=== PATIENT | female | born 1980 | race Caucasian/White ===

== ENCOUNTER 2019-12-19 17:51 | Emergency (ER) | payer OTHER ==
[2019-12-19] MEDS ORDERED: ACET/COD 300 MG/30 MG STARTER PACK 6 TAB BTL PO STA (18:46)
[2019-12-19 19:39] LABS: Appearance,Urine Cloudy (Clear); Bacteria,Urine Occasional /hpf; Bilirubin,Urine Negative (Negative); Blood,Urine Negative (Negative); Color,Urine Light Yellow; Glucose,Urine (UA) Negative (Negative); Hyaline Casts,Urine 13 /lpf (0-2); Ketones,Urine Negative (Negative); Leukocyte Esterase,Urine Trace (Negative); Mucus,Urine Rare /hpf; Nitrite,Urine Positive (Negative); PH, Urine 5.5 (5.0-8.0); Protein,Urine Trace (Negative); RBC,Urine 1 /hpf (0-5); Specific Gravity,Urine 1.019 (1.001-1.035); Squamous Epithelial Cell,Urine 10 /hpf (0-4); Urobilinogen,Urine <2.0 mg/dL (<2.0); WBC,Urine 2 /hpf (0-5)
[2019-12-19] MEDS ORDERED: CEPHALEXIN 500MG STARTER PACK 4 CAP BTL PO STA (20:04)
--- NOTE | 2019-12-19 20:06 | ED ---
ENT HPI - General Chief complaint: Dental/Oral Stated complaint: Dental infection Time Seen by Provider: 12/19/19 17:58 Source: patient Mode of arrival: ambulatory Limitations: no limitations - History of Present Illness Initial comments: 38yo female presenting today for cc of possible UTI, dental pain. Patient states her back right upper tooth needs root canal no dentist open, pain increased x few days. Dysuria x 1 week, foul smelling urine with history of frequent UTI's patient denies flank pain, fevers, hematuria, tongue swelling, neck swelling, m alaise, drooling difficulty entire oral secretions or trismus. Patient is no additional complaints upon arrival patient appears well signs acute distress. Patient states she is unable to provide urine sample at this time. - Related Data Previous Rx's Medication Instructions Recorded Cephalexin [Keflex] 500 mg PO Q12HR 5 Days #10 cap 12/19/19 Clindamycin [Cleocin] 450 mg PO Q8H 7 Days #63 capsule 12/19/19 Allergies Allergy/AdvReac Type Severity Reaction Status Date / Time adhesive Allergy Unknown Verified 12/19/19 17:59 ciprofloxacin [From Cipro] Allergy Unknown Verified 12/19/19 17:59 diazepam [From Valium] Allergy Unknown Verified 12/19/19 17:59 latex Allergy Unknown Verified 12/19/19 17:59 metoclopramide [From Reglan] Allergy Unknown Verified 12/19/19 17:59 paroxetine [From Paxil] Allergy Unknown Verified 12/19/19 17:59 Penicillins Allergy Unknown Verified 12/19/19 17:59 prochlorperazine Allergy Unknown Verified 12/19/19 17:59 [From Compazine] Review of Systems ROS Statement: Those systems with pertinent positive or pertinent negative responses have been documented in the HPI. ROS Other: All systems not noted in ROS Statement are negative. Past Medical History Past Medical History: No Reported History History of Any Multi-Drug Resistant Organisms: None Reported Past Surgical History: Breast Surgery Past Psychological History: Depression Smoking Status: Former smoker Past Alcohol Use History: Occasional Past Drug Use History: None Reported General Exam - General Exam Comments Initial Comments: General: The patient is awake and alert, in no distress Eye: +3 mm pupils are equal, round and reactive to light, extra-ocular movements are intact. No nystagmus. There is normal conjunctiva bilaterally. No signs of icterus. Ears, nose, mouth and throat: There are moist mucous membranes and no oral lesions. No trismus no drooling, tolerating oral secretions, pain to percussion of tooth #1. Patient has swelling below the angle of the mandible or below the tongue. Neck: The neck is supple, there is no tenderness or JVD. Cardiovascular: There is a regular rate and rhythm. No murmur, rub or gallop is appreciated. Respiratory: Lungs are clear to auscultation, respirations are non-labored, breath sounds are equal. No wheezes, stridor, rales, or rhonchi. Gastrointestinal: Soft, non-distended, non-tender abdomen without masses or organomegaly noted. There is no rebound or guarding present. Pelvic: no discharge. no cervical lesions, no tenderness, no external lesions or odor. Musculoskeletal: Normal ROM, no tenderness. Strength 5/5. Sensation intact. Radial pulses equal bilaterally 2+. Neurological: A&O x 3. CN II-XII intact, There are no obvious motor or sensory deficits. Coordination appears grossly intact. Speech is normal. Skin: Skin is warm and dry and no rashes or lesions are noted. Psychiatric: Cooperative, appropriate mood & affect, normal judgment. Limitations: no limitations Course Vital Signs 12/19/19 12/19/19 12/19/19 17:54 17:57 18:57 Temperature 98.2 F Pulse Rate 112 H Respiratory 18 18 18 Rate Blood Pressure 123/76 O2 Sat by Pulse 98 Oximetry 12/19/19 20:07 Temperature 97.1 F L Pulse Rate 87 Respiratory 17 Rate Blood Pressure 110/75 O2 Sat by Pulse 100 Oximetry Medical Decision Making - Medical Decision Making 2-year-old female presenting today for chief complaint of dental pain and urinary tract symptoms. Patient initially unable to provide urine sample. Pelvic performed revealing no obvious abnormalities. Urine sample after retrieved revealed nitrates. Treated with Keflex. Patient took clindamycin for dental pain as cannot r/o early apical abscess. No signs of Tobin's angina or systemic spread of infection patient appears well nontoxic. Patient is discharged appearing well with instruction to follow-up with primary care provider as well as dentist. - Lab Data Lab Results 12/19/19 12/19/19 Range/Units 19:30 19:30 Urine Color Light Yellow Urine Appearance Cloudy H (Clear) Urine pH 5.5 (5.0-8.0) Ur Specific [place] 1.019 (1.001-1.035) Urine Protein Trace H (Negative) Urine Glucose (UA) Negative (Negative) Urine Ketones Negative (Negative) Urine Blood Negative (Negative) Urine Nitrite Positive H (Negative) Urine Bilirubin Negative (Negative) Urine Urobilinogen <2.0 (<2.0) mg/dL Ur Leukocyte Esterase Trace H (Negative) Urine RBC 1 (0-5) /hpf Urine WBC 2 (0-5) /hpf Ur Squamous Epith Cells 10 H (0-4) /hpf Urine Bacteria Occasional H (None) /hpf Hyaline Casts 13 H (0-2) /lpf Urine Mucus Rare H (None) /hpf Urine HCG, Qual Not Detected (Not Detectd) Disposition Clinical Impression: UTI (urinary tract infection), Pain, dental Disposition: HOME SELF-CARE Condition: Good Instructions (If sedation given, give patient instructions): Urinary Tract Infection in Women (ED), Toothache (ED) Additional Instructions: Please use medication as discussed. Please follow-up with family doctor in the next 2 days. Please return to emergency room if the symptoms increase or worsen or for any other concerns. Prescriptions: Clindamycin [Cleocin] 450 mg PO Q8H 7 Days #63 capsule Cephalexin [Keflex] 500 mg PO Q12HR 5 Days #10 cap Is patient prescribed a controlled substance at d/c from ED?: No Referrals: Patricia Gonzalez MD [Primary Care Provider] - 1-2 days Time of Disposition: 20:07
[2019-12-19 20:08] VITALS: BP 110/75; PULSE 87; RESP 17; TEMP 97.1
[2019-12-22 14:31] LABS: C. trachomatis,PCR Negative (Neg,Equiv); Chlamydia trachomatis Source Vagina; N. gonorrhoeae,PCR Negative (Neg,Equiv); Neisseria Source Vagina
== END 2019-12-19 20:14 | disposition home or self-care (01) ==
LOC: EC 17:51
DX: N39.0 Urinary tract infection, site not specified (principal); K08.89 Other specified disorders of teeth and supporting structures; Z87.891 Personal history of nicotine dependence; Z88.0 Allergy status to penicillin; Z88.1 Allergy status to other antibiotic agents; Z91.048 Other nonmedicinal substance allergy status; Z88.8 Allergy status to other drugs, medicaments and biological substances; Z91.040 Latex allergy status
CPT/HCPCS: 81001; 81025; 87070; 87491; 87591; 87808; 99283

== ENCOUNTER 2020-02-26 17:09 | Inpatient (IN) | payer OTHER ==
[2020-02-26] MEDS ORDERED: SODIUM CHLORIDE 0.9% 1,000 ML IV STA (17:53)
--- NOTE | 2020-02-26 17:55 | ED ---
General Adult HPI - General Source: patient, RN notes reviewed Mode of arrival: ambulatory Limitations: no limitations <Johnny Quiñones - Last Filed: 02/26/20 20:07> <Sinai Douglas - Last Filed: 03/01/20 00:51> - General Chief complaint: Recheck/Abnormal Lab/Rx Stated complaint: Vomiting, Anemia Time Seen by Provider: 02/26/20 17:30 - History of Present Illness Initial comments: 39-year-old female with a past medical history of asthma, fibromyalgia, anemia, migraines presents to the emergency department for a chief complaint of not feeling well. Patient states that she feels more tired than normal and has felt this way for about 2 months. Patient states that in 2008 her hemoglobin was 4 because she was taking Motrin and Excedrin. States she recently started taking Motrin again because her migraines worsened. States she has been taking 1600 mg of Motrin twice a day and 3 pills of Excedrin twice per day. She denies any hematemesis, melena, hematochezia. Patient reports that she is here today bec ause yesterday she decided to drink alcohol and it made it worse. States she used to drink a pint or more per day but about 2 weeks ago started to drink a pint every other day. Patient states this worsened her symptoms. Patient states she has not had any hematuria. No longer has menstrual cycle. Patient has no other complaints at this time including shortness of breath, chest pain, abdominal pain, nausea or vomiting, headache, or visual changes. (Johnny Quiñones) - Related Data Home Medications Medication Instructions Recorded Confirmed [id number] 3 tab PO DAILY PRN 02/26/20 02/26/20 [Excedrin] Cetirizine HCl [Zyrtec] 10 mg PO DAILY PRN 02/26/20 02/26/20 DULoxetine HCL [Cymbalta] 60 mg PO DAILY 02/26/20 02/26/20 SUMAtriptan SUCCINATE [Imitrex] 50 mg PO BID PRN 02/26/20 02/26/20 diphenhydrAMINE HCL [Benadryl] 50 mg PO DAILY PRN 02/26/20 02/26/20 Previous Rx's Medication Instructions Recorded Pantoprazole [Protonix] 40 mg PO BID #60 tablet. 02/28/20 Allergies Allergy/AdvReac Type Severity Reaction Status Date / Time adhesive Allergy Rash/Hives Verified 02/26/20 20:13 latex Allergy Rash/Hives Verified 02/26/20 20:13 prochlorperazine Allergy Unknown Verified 02/26/20 20:13 [From Compazine] ciprofloxacin [From Cipro] AdvReac Hallucinati Verified 02/26/20 20:13 ons citalopram [From Celexa] AdvReac Suicidal Verified 02/26/20 20:13 thoughts diazepam [From Valium] AdvReac Hallucinati Verified 02/26/20 20:13 ons/Anxiety fluoxetine [From Prozac] AdvReac Suicidal Verified 02/26/20 20:13 thoughts metoclopramide [From Reglan] AdvReac Hallucinati Verified 02/26/20 20:13 ons/Anxiety paroxetine [From Paxil] AdvReac Suicidal Verified 02/26/20 20:13 thoughts Penicillins AdvReac Nausea & Verified 02/26/20 20:13 Vomiting Review of Systems ROS Other: All systems not noted in ROS Statement are negative. <Johnny Quiñones P - Last Filed: 02/26/20 20:07> ROS Other: All systems not noted in ROS Statement are negative. <Sinai Douglas - Last Filed: 03/01/20 00:51> ROS Statement: Those systems with pertinent positive or pertinent negative responses have been documented in the HPI. Past Medical History Past Medical History: Asthma, Fibromyalgia Additional Past Medical History / Comment(s): anemia, migraines, IBS History of Any Multi-Drug Resistant Organisms: None Reported Past Surgical History: Breast Surgery, Ear Surgery Additional Past Surgical History / Comment(s): septoplasty Past Psychological History: Depression Smoking Status: Former smoker Past Alcohol Use History: Abuse, Heavy Past Drug Use History: None Reported <Johnny Quiñones P - Last Filed: 02/26/20 20:07> General Exam Limitations: no limitations General appearance: alert, in no apparent distress Head exam: Present: atraumatic, normocephalic, normal inspection Eye exam: Present: normal appearance, PERRL, EOMI. Absent: scleral icterus, conjunctival injection, periorbital swelling ENT exam: Present: normal exam, mucous membranes moist Neck exam: Present: normal inspection, full ROM. Absent: tenderness, meningismus, lymphadenopathy Respiratory exam: Present: normal lung sounds bilaterally. Absent: respiratory distress, wheezes, rales, rhonchi, stridor Cardiovascular Exam: Present: regular rate, normal rhythm, normal heart sounds. Absent: systolic murmur, diastolic murmur, rubs, gallop, clicks GI/Abdominal exam: Present: soft, normal bowel sounds. Absent: distended, tenderness, guarding, rebound, rigid Neurological exam: Present: alert <Johnny Quiñones - Last Filed: 02/26/20 20:07> Course Vital Signs 02/26/20 02/26/20 17:18 20:04 Temperature 98.6 F 98.8 F Pulse Rate 99 92 Respiratory 18 16 Rate Blood Pressure 98/61 118/79 O2 Sat by Pulse 100 100 Oximetry EKG Findings - EKG Comments: EKG Findings:: Normal sinus rhythm, ventricular rate 93, [place] interval 142, QTC 457 <Johnny Quiñones - Last Filed: 02/26/20 20:07> Medical Decision Making - Lab Data Result diagrams: 02/26/20 18:31 02/26/20 18:31 <Johnny Quiñones - Last Filed: 02/26/20 20:07> - Lab Data Result diagrams: 02/28/20 06:07 02/28/20 06:07 <Sinai Douglas - Last Filed: 03/01/20 00:51> - Medical Decision Making Vitals are stable. Patient presents with weakness. On exam she is well appearing. However CBC does reveal a hemoglobin of 5.6. CMP unremarkable. Urinalysis unremarkable. Patient was given 2 units of blood. Occult blood is pending. Patient reports taking 1600 mg of ibuprofen twice daily and 3 tablets of Excedrin twice daily. However denies any hematemesis melena or hematochezia. Patient will be admitted with GI consultation. (Jhonny Quiñones) I was available for consultation in the emergency department. The history and physical exam were done by the midlevel provider. I was consulted for this patients care. I reviewed the case with the midlevel provider and based on their presentation of the patient, I agree with the assessment, medical decision making and plan of care as documented. Chart was dictated using Dragon dictation software. Attempts were made to correct any dictation errors however some typographical errors may persist. Patient was seen during a national state of emergency due to the Covid-19 pandemic. (Sinai Douglas) - Lab Data Lab Results 02/26/20 02/26/20 02/26/20 Range/Units 18:10 18:10 18:31 WBC 5.9 (3.8-10.6) k/uL RBC 2.74 L (3.80-5.40) m/uL Hgb 5.6 L* (11.4-16.0) gm/dL Hct 20.8 L (34.0-46.0) % MCV 76.1 L (80.0-100.0) fL MCH 20.3 L (25.0-35.0) pg MCHC 26.7 L (31.0-37.0) g/dL RDW 17.8 H (11.5-15.5) % Plt Count 532 H (150-450) k/uL Neutrophils % (Manual) 82 % Band Neutrophils % 1 % Lymphocytes % (Manual) 15 % Monocytes % (Manual) 3 % Neutrophils # (Manual) 4.80 (1.3-7.7) k/uL Lymphocytes # (Manual) 0.89 L (1.0-4.8) k/uL Monocytes # (Manual) 0.18 (0-1.0) k/uL Nucleated RBCs 0 (0-0) /100 WBC Manual Slide Review Performed Large Platelets Present Hypochromasia Marked Poikilocytosis Slight Anisocytosis Slight Microcytosis Slight Sodium (137-145) mmol/L Potassium (3.5-5.1) mmol/L Chloride (98-107) mmol/L Carbon Dioxide (22-30) mmol/L Anion Gap mmol/L BUN (7-17) mg/dL Creatinine (0.52-1.04) mg/dL Est GFR (CKD-EPI)AfAm (>60 ml/min/1.73 sqM) Est GFR (CKD-EPI)NonAf (>60 ml/min/1.73 sqM) Glucose (74-99) mg/dL Calcium (8.4-10.2) mg/dL Magnesium (1.6-2.3) mg/dL Total Bilirubin (0.2-1.3) mg/dL AST (14-36) U/L ALT (4-34) U/L Alkaline Phosphatase (38-126) U/L Troponin I (0.000-0.034) ng/mL Total Protein (6.3-8.2) g/dL Albumin (3.5-5.0) g/dL Urine Color Yellow Urine Appearance Cloudy H (Clear) Urine pH 6.0 (5.0-8.0) Ur Specific [place] 1.018 (1.001-1.035) Urine Protein 1+ H (Negative) Urine Glucose (UA) Negative (Negative) Urine Ketones 1+ H (Negative) Urine Blood Negative (Negative) Urine Nitrite Negative (Negative) Urine Bilirubin Negative (Negative) Urine Urobilinogen <2.0 (<2.0) mg/dL Ur Leukocyte Esterase Negative (Negative) Urine WBC 2 (0-5) /hpf Ur Squamous Epith Cells 18 H (0-4) /hpf Hyaline Casts 7 H (0-2) /lpf Urine Mucus Many H (None) /hpf Urine HCG, Qual Not Detected (Not Detectd) Serum Alcohol mg/dL Blood Type Blood Type Recheck Bld Type Recheck Status Antibody Screen Crossmatch Spec Expiration Date 02/26/20 02/26/20 02/26/20 Range/Units 18:31 18:31 19:09 WBC (3.8-10.6) k/uL RBC (3.80-5.40) m/uL Hgb (11.4-16.0) gm/dL Hct (34.0-46.0) % MCV (80.0-100.0) fL MCH (25.0-35.0) pg MCHC (31.0-37.0) g/dL RDW (11.5-15.5) % Plt Count (150-450) k/uL Neutrophils % (Manual) % Band Neutrophils % % Lymphocytes % (Manual) % Monocytes % (Manual) % Neutrophils # (Manual) (1.3-7.7) k/uL Lymphocytes # (Manual) (1.0-4.8) k/uL Monocytes # (Manual) (0-1.0) k/uL Nucleated RBCs (0-0) /100 WBC Manual Slide Review Large Platelets Hypochromasia Poikilocytosis Anisocytosis Microcytosis Sodium 139 (137-145) mmol/L Potassium 3.7 (3.5-5.1) mmol/L Chloride 108 H (98-107) mmol/L Carbon Dioxide 21 L (22-30) mmol/L Anion Gap 10 mmol/L BUN 21 H (7-17) mg/dL Creatinine 0.63 (0.52-1.04) mg/dL Est GFR (CKD-EPI)AfAm >90 (>60 ml/min/1.73 sqM) Est GFR (CKD-EPI)NonAf >90 (>60 ml/min/1.73 sqM) Glucose 93 (74-99) mg/dL Calcium 10.2 (8.4-10.2) mg/dL Magnesium 1.9 (1.6-2.3) mg/dL Total Bilirubin 0.4 (0.2-1.3) mg/dL AST 20 (14-36) U/L ALT 11 (4-34) U/L Alkaline Phosphatase 66 (38-126) U/L Troponin I <0.012 (0.000-0.034) ng/mL Total Protein 7.7 (6.3-8.2) g/dL Albumin 4.8 (3.5-5.0) g/dL Urine Color Urine Appearance (Clear) Urine pH (5.0-8.0) Ur Specific [place] (1.001-1.035) Urine Protein (Negative) Urine Glucose (UA) (Negative) Urine Ketones (Negative) Urine Blood (Negative) Urine Nitrite (Negative) Urine Bilirubin (Negative) Urine Urobilinogen (<2.0) mg/dL Ur Leukocyte Esterase (Negative) Urine WBC (0-5) /hpf Ur Squamous Epith Cells (0-4) /hpf Hyaline Casts (0-2) /lpf Urine Mucus (None) /hpf Urine HCG, Qual (Not Detectd) Serum Alcohol <10 mg/dL Blood Type O Positive Blood Type Recheck O Pos Bld Type Recheck Status No Antibody Screen NEGATIVE Crossmatch See Detail Spec Expiration Date 02/29/2020 - 2308 Critical Care Time Critical Care Time: Yes Total Critical Care Time: 33 <Johnny Quiñones P - Last Filed: 02/26/20 20:07> Critical Care Time: 33 minutes was spent caring for this patient by multiple bedside evaluations, speaking with physicians, ordering blood transfusion. (Johnny Quiñones) Disposition Is patient prescribed a controlled substance at d/c from ED?: No Time of Disposition: 19:39 <Johnny Quiñones - Last Filed: 02/26/20 20:07> <Sinai Douglas - Last Filed: 03/01/20 00:51> Clinical Impression: Acute anemia Disposition: ADMITTED IP TO THIS HOSP Condition: Serious
[2020-02-26 18:40] LABS: Appearance,Urine Cloudy (Clear); Bilirubin,Urine Negative (Negative); Blood,Urine Negative (Negative); Color,Urine Yellow; Glucose,Urine (UA) Negative (Negative); Hyaline Casts,Urine 7 /lpf (0-2); Ketones,Urine 1+ (Negative); Leukocyte Esterase,Urine Negative (Negative); Mucus,Urine Many /hpf; Nitrite,Urine Negative (Negative); Protein,Urine 1+ (Negative); Specific Gravity,Urine 1.018 (1.001-1.035); Squamous Epithelial Cell,Urine 18 /hpf (0-4); Urobilinogen,Urine <2.0 mg/dL (<2.0); WBC,Urine 2 /hpf (0-5)
[2020-02-26 18:50] LABS: ALT 11 U/L (4-34); AST 20 U/L (14-36); African American GFR (CKD) >90 (>60 ml/min/1.73 sqM); Albumin 4.8 g/dL (3.5-5.0); Alcohol <10 mg/dL; Alkaline Phosphatase 66 U/L (38-126); Anion Gap 10 mmol/L; Blood Urea Nitrogen 21 mg/dL (7-17); Calcium 10.2 mg/dL (8.4-10.2); Carbon Dioxide 21 mmol/L (22-30); Chloride 108 mmol/L (98-107); Glucose 93 mg/dL (74-99); Magnesium 1.9 mg/dL (1.6-2.3); Non-African American GFR(CKD) >90 (>60 ml/min/1.73 sqM); Potassium 3.7 mmol/L (3.5-5.1); Sodium 139 mmol/L (137-145); Total Bilirubin 0.4 mg/dL (0.2-1.3); Total Protein 7.7 g/dL (6.3-8.2)
[2020-02-26 18:54] LABS: Anisocytosis Slight; HCT 20.8 % (34.0-46.0); Hypochromasia Marked; MCH 20.3 pg (25.0-35.0); MCHC 26.7 g/dL (31.0-37.0); MCV 76.1 fL (80.0-100.0); Mean Platelet Volume 7.7; Microcytosis Slight; Platelet Count 532 k/uL (150-450); Poikilocytosis Slight; RBC 2.74 m/uL (3.80-5.40); RDW 17.8 % (11.5-15.5); WBC 5.9 k/uL (3.8-10.6)
[2020-02-26 19:04] LABS: HGB 5.6 gm/dL (11.4-16.0)
[2020-02-26] MEDS ORDERED: NALOXONE 0.4 MG/ML 1 ML VIAL IV PRN (19:37)
[2020-02-26 20:41] LABS: Band Neutrophils % 1 %; Large Platelets Present; Lymphocytes # (M) 0.89 k/uL (1.0-4.8); Monocytes # (M) 0.18 k/uL (0-1.0); Neutrophils % (M) 82 %; Nucleated Red Blood Cells 0 /100 WBC (0-0); Total Cells Counted 200
[2020-02-26] MEDS: ONDANSETRON 4 MG/2 ML VIAL IVP PRN (23:00)
[2020-02-27] MEDS ORDERED: ACETAMINOPHEN TAB 325 MG TAB PO PRN (00:57)
[2020-02-27] MEDS: BUTALB/APAP/CAFF 50-325-40MG TAB PO PRN ×3 (01:50→20:48)
[2020-02-27 07:22] LABS: Anisocytosis Slight; HCT 29.6 % (34.0-46.0); Hypochromasia Marked; MCH 23.8 pg (25.0-35.0); MCHC 29.4 g/dL (31.0-37.0); MCV 80.7 fL (80.0-100.0); Mean Platelet Volume 6.9; Microcytosis Slight; Platelet Count 451 k/uL (150-450); Poikilocytosis Marked; RBC 3.67 m/uL (3.80-5.40); RDW 17.3 % (11.5-15.5); WBC 7.2 k/uL (3.8-10.6)
[2020-02-27 07:29] LABS: HGB 8.7 gm/dL (11.4-16.0)
[2020-02-27] MEDS: DULoxetine HCL 60 MG CAPSULE.DR PO SCH (07:56)
[2020-02-27] MEDS: PANTOPRAZOLE 40 MG TABLET PO SCH ×2 (07:56→20:05)
[2020-02-27] MEDS ORDERED: diphenhydrAMINE 25 MG CAP PO PRN (09:00)
[2020-02-27] MEDS ORDERED: SUMAtriptan succinate 50 MG TAB PO PRN (09:00)
[2020-02-27] MEDS ORDERED: LORATADINE 10 MG TAB PO PRN (09:00)
[2020-02-27] MEDS: ONDANSETRON 4 MG/2 ML VIAL IVP PRN (11:06)
[2020-02-27] MEDS: SODIUM CHLORIDE 0.9% 1,000 ML IV SCH ×2 (11:29→20:05)
[2020-02-27] MEDS ORDERED: LORazepam 2 MG/ML INJ IV PRN ×3 (11:51)
--- NOTE | 2020-02-27 12:02 | P.HPIM ---
History of Present Illness H&P Date: 02/27/20 ( IS.) Chief Complaint: Chest pain, anemia This is a 39-year-old female patient of Dr. Gonzalez with a past medical history of a GI bleed in 2008 patient reports is secondary to Excedrin and non- steroidal anti-inflammatories. Patient underwent an EGD and colonoscopy in 2008 and subsequently had endoscopy by Dr. Lynn in [place]. She apparently followed up with Dr. Cueva at that time for anemia. She also has past medical history of fibromyalgia, migraine headaches, irritable bowel syndrome, primary immunodeficiency disorder which is been stable with no active medications, mild intermittent asthma, hypothyroidism taking kelp with improvement of her thyroid levels according to the patient. Patient states that she quit smoking 6 months ago at only smoked for about half a year. She has been drinking a fifth a day both for a couple weeks she has cut down to one half to 1. per day. Heavy alcohol use since August 2019. Patient presented to [facility] emergency center because she was not feeling well. She has not been feeling well for the past 2 months. She started taking Motrin due to her migraine headaches at 1600 mg twice a day and 3 pills of Excedrin twice a day. She denies any hematemesis, melena, hematochezia. Alcohol makes her symptoms worse. She does have epigastric discomfort that she describes as a stabbing pain. Hemoglobin was found to be 5.6, status post 2 unit of packed RBCs with hemoglobin of 8.7. WBC 7.2, platelet count 451. Sodium 139, potassium 3.7, chloride 108, CO2 21, BUN 21, creatinine 0.63. Liver function tests are normal. Troponin negative. Urinalysis cloudy with nitrate and leukoesterase negative, 18 squamous cells. Stool for occult blood is negative. Serum alcohol level less than 10. Coronavirus PCR not detected. Patient was admitted to the cardiac stepdown unit and seen by gastroenterology with plan for EGD and colonoscopy tomorrow. Review of Systems Constitutional: No fever, no chills, no night sweats. No weight change. Reports weakness, Reportsfatigue Reports lethargy. EENT: No headache. No blurred vision or double vision, no loss of vision. No loss of Hearing, no ringing in the ears, no dizziness. No nasal drainage or congestion. No epistaxis. No sore throat. Lungs: No shortness of breath, cough, no sputum production. No wheezing. Cardiovascular: No chest pain, no lower extremity edema. No palpitations. No paroxysmal nocturnal dyspnea. No orthopnea. No lightheadedness or dizziness. No syncopal episodes. Abdominal: Reports abdominal pain. No nausea, vomiting. No diarrhea. No constipation. No bloody or tarry stools. No loss of appetite. Genitourinary: No dysuria, increased frequency, urgency. No urinary retention. Musculoskeletal: No myalgias. No muscle weakness, no gait dysfunction, no frequent falls. No back pain. No neck pain. Integumentary: No wounds, no lesions. No rash or pruritus. No unusual bruisi ng. No change in hair or nails. Neurologic: No aphasia. No facial droop. No change in mentation. No head injury. No headache. No paralysis. No paresthesia. Psychiatric: No depression. No anxiety. No mood swings. Endocrine: No abnormal blood sugars. No weight change. No excessive sweating or thirst. No cold intolerance. Physical Examination Gen: This is a 39-year-old female. She is resting in bed and appears to be comfortable and in no cute distress. HEENT: Head is atraumatic, normocephalic. Pupils equal, round. Sclerae is anicteric. NECK: Supple. No JVD. No lymphadenopathy. No thyromegaly. LUNGS: Clear to auscultation. No wheezes or rhonchi. No intercostal retractions. HEART: Regular rate and rhythm. No murmur. ABDOMEN: Soft. Bowel sounds are present. No masses. Mild epigastric tenderness. EXTREMITIES: No pedal edema. No calf tenderness. NEUROLOGICAL: Patient is awake, alert and oriented x3. Cranial nerves 2 through 12 are grossly intact. Assessment and Plan 1. Anemia, most likely acute blood loss anemia secondary to acute upper GI bleed from gastritis secondary to alcohol use with nonsteroidal anti-in flammatory drugs. Consult with GI appreciated. Patient is scheduled for EGD and colonoscopy for tomorrow. Continue Protonix 40 mg twice daily. 2. Acute blood loss anemia status post transfusion of 2 units of packed RBCs. Repeat CBC in the morning. 3. History of migraine headaches. Continue Fioricet as needed, Imitrex as needed. 4. Seasonal ALLERGIES. Continue Zyrtec as needed.. 5. Recurrent depression and generalized anxiety disorder. Continue Cymbalta 60 mg daily. 6. History of GI bleed and gastroesophageal reflux disease. Continue Protonix. 7. Alcohol abuse. Patient will be started on CIWA protocol. 8. History of tobacco use. 9. History of primary immunodeficiency disorder. No active treatment. 10. Irritable bowel syndrome, stable. 11. Mild intermittent asthma, not active. 12. COVID-19 infection not present. Patient will be admitted to the hospital for a minimum of 2 night stay. Discharge plan: Home Impression and plan of care have been directed as dictated by the signing physician. Isabel Samayoa nurse practitioner acting as scribe for signing edson sician. Past Medical History Past Medical History: Asthma, Fibromyalgia, GERD/Reflux Additional Past Medical History / Comment(s): anemia, migraines, IBS, primary immunodeficiency disorder History of Any Multi-Drug Resistant Organisms: None Reported Past Surgical History: Breast Surgery, Ear Surgery Additional Past Surgical History / Comment(s): septoplasty, EGD and colonoscopy in 2008 Past Anesthesia/Blood Transfusion Reactions: No Reported Reaction Past Psychological History: Anxiety, Depression Smoking Status: Former smoker Past Alcohol Use History: Abuse, Heavy Additional Past Alcohol Use History / Comment(s): Patient was a smoker for short period and quit 6 months ago. She smoked a half a pack per day. Patient drinks one fifth per day recently cut down to one half to 1 pint per day. She denies any marijuana use or street drug use. She is . Past Drug Use History: None Reported - Past Family History Father Additional Family Medical History / Comment(s): Father at age 51 from either myocardial infarction or drug overdose. Mother Additional Family Medical History / Comment(s): Mother is alive at age 61 with history of fibromyalgia. Brother(s) Additional Family Medical History / Comment(s): Patient has one brother with history of alcohol abuse. Patient does not have any sisters. Patient has 2 children with no major medical problems. Medications and Allergies Home Medications Medication Instructions Recorded Confirmed Type [id number] 3 tab PO DAILY PRN 02/26/20 02/26/20 History [Excedrin] Cetirizine HCl [Zyrtec] 10 mg PO DAILY PRN 02/26/20 02/26/20 History DULoxetine HCL [Cymbalta] 60 mg PO DAILY 02/26/20 02/26/20 History Ibuprofen [Motrin Ib] 800 mg PO BID PRN 02/26/20 02/26/20 History Omeprazole Magnesium [PriLOSEC OTC] 20 - 60 mg PO BID 02/26/20 02/26/20 History SUMAtriptan SUCCINATE [Imitrex] 50 mg PO BID PRN 02/26/20 02/26/20 History diphenhydrAMINE HCL [Benadryl] 50 mg PO DAILY PRN 02/26/20 02/26/20 History Allergies Allergy/AdvReac Type Severity Reaction Status Date / Time adhesive Allergy Rash/Hives Verified 02/26/20 20:13 latex Allergy Rash/Hives Verified 02/26/20 20:13 prochlorperazine Allergy Unknown Verified 02/26/20 20:13 [From Compazine] ciprofloxacin [From Cipro] AdvReac Hallucinati Verified 02/26/20 20:13 ons citalopram [From Celexa] AdvReac Suicidal Verified 02/26/20 20:13 thoughts diazepam [From Valium] AdvReac Hallucinati Verified 02/26/20 20:13 ons/Anxiety fluoxetine [From Prozac] AdvReac Suicidal Verified 02/26/20 20:13 thoughts metoclopramide [From Reglan] AdvReac Hallucinati Verified 02/26/20 20:13 ons/Anxiety paroxetine [From Paxil] AdvReac Suicidal Verified 02/26/20 20:13 thoughts Penicillins AdvReac Nausea & Verified 02/26/20 20:13 Vomiting Physical Exam Vitals: Vital Signs Temp Pulse Pulse Resp BP BP Pulse Ox 02/27/20 08:00 98.2 F 85 16 97/56 98 02/27/20 05:36 98.2 F 75 18 123/70 02/27/20 04:00 82 18 100/59 99 02/27/20 02:50 98.1 F 87 18 108/74 98 02/27/20 02:20 98.0 F 92 18 114/69 99 02/27/20 02:10 98.0 F 90 18 116/62 02/27/20 02:03 98.0 F 96 18 116/62 100 02/27/20 00:00 110 H 18 117/63 100 02/26/20 22:51 98.1 F 99 18 109/61 100 02/26/20 22:21 98.2 F 93 18 112/58 100 02/26/20 22:11 98.2 F 99 18 102/62 99 02/26/20 20:53 98.1 F 102 H 20 120/75 97 02/26/20 20:04 98.8 F 92 16 118/79 100 02/26/20 17:18 98.6 F 99 18 98/61 100 Intake and Output 02/26/20 02/27/20 02/27/20 22:59 06:59 14:59 Intake Total 0 620 Balance 0 620 Intake: Blood Product 0 620 Rc As-1 Unit 310 [id number] Rc As-3 Unit 0 310 [id number] Other: Voiding Method Toilet Toilet # Voids 2 Weight 56.699 kg Results CBC & Chem 7: 02/27/20 06:32 02/26/20 18:31 Labs: Abnormal Lab Results - Last 24 Hours (Table) 02/26/20 02/26/20 02/26/20 Range/Units 18:10 18:31 18:31 RBC 2.74 L (3.80-5.40) m/uL Hgb 5.6 L* (11.4-16.0) gm/dL Hct 20.8 L (34.0-46.0) % MCV 76.1 L (80.0-100.0) fL MCH 20.3 L (25.0-35.0) pg MCHC 26.7 L (31.0-37.0) g/dL RDW 17.8 H (11.5-15.5) % Plt Count 532 H (150-450) k/uL Lymphocytes # (Manual) 0.89 L (1.0-4.8) k/uL Chloride 108 H (98-107) mmol/L Carbon Dioxide 21 L (22-30) mmol/L BUN 21 H (7-17) mg/dL Urine Appearance Cloudy H (Clear) Urine Protein 1+ H (Negative) Urine Ketones 1+ H (Negative) Ur Squamous Epith Cells 18 H (0-4) /hpf Hyaline Casts 7 H (0-2) /lpf Urine Mucus Many H (None) /hpf Crossmatch 02/26/20 02/27/20 Range/Units 19:09 06:32 RBC 3.67 L (3.80-5.40) m/uL Hgb 8.7 L D (11.4-16.0) gm/dL Hct 29.6 L (34.0-46.0) % MCV (80.0-100.0) fL MCH 23.8 L (25.0-35.0) pg MCHC 29.4 L (31.0-37.0) g/dL RDW 17.3 H (11.5-15.5) % Plt Count 451 H (150-450) k/uL Lymphocytes # (Manual) (1.0-4.8) k/uL Chloride (98-107) mmol/L Carbon Dioxide (22-30) mmol/L BUN (7-17) mg/dL Urine Appearance (Clear) Urine Protein (Negative) Urine Ketones (Negative) Ur Squamous Epith Cells (0-4) /hpf Hyaline Casts (0-2) /lpf Urine Mucus (None) /hpf Crossmatch See Detail
[2020-02-27 16:01] VITALS: BMI 22.1
[2020-02-27] MEDS: THIAMINE 100 MG TAB PO SCH (16:51)
[2020-02-27] MEDS ORDERED: PEG 3350-NA SULF,BICARB,CL/KCL 4,000 ML BOTTLE PO ONE (17:00)
--- NOTE | 2020-02-27 22:52 | CONS ---
CONSULTATION DATE OF DICTATION: 02/27/2020 REASON FOR CONSULTATION: Severe symptomatic anemia and abdominal pain. HISTORY OF PRESENT ILLNESS: The patient is a 39-year-old pleasant white female who was admitted to the hospital with severe symptomatic anemia and a hemoglobin of 5.6 g/dL. She was diagnosed with fibromyalgia and has been taking NSAIDs on and off for the last few months. She denies any peptic ulcer disease. She had a similar episode of anemia back in 2008 and had an upper endoscopy as well as colonoscopy done. According to her, it was within normal limits. She used to follow with Dr. Cueva at that time and took iron supplements. She denies any abdominal pain. She does complain of occasional heartburn. Lately she has been having severe chronic headaches and mostly Tylenol but occasionally Motrin. She denies any alcohol use. PAST MEDICAL HISTORY: Her past medical history is significant for fibromyalgia, chronic migraines, history of gastroesophageal reflux disease, anxiety, depression. MEDICATIONS: Medications at home include Benadryl, Imitrex, Prilosec, Motrin, Cymbalta, Zyrtec and Excedrin. ALLERGIES: LATEX, COMPAZINE, CIPRO, CELEXA, VALIUM, PROZAC, REGLAN, PAXIL AND PENICILLIN. SOCIAL HISTORY: No smoking. No alcohol use. FAMILY HISTORY: Unremarkable. REVIEW OF SYSTEMS: CARDIOPULMONARY: No chest pain or shortness of breath. GENITOURINARY: No dysuria or hematuria. MUSCULOSKELETAL: Unremarkable. SKIN: Unremarkable. ENDOCRINE: Unremarkable. PSYCHIATRIC: Unremarkable. NEUROLOGY: Unremarkable. ENT/VISION: Unremarkable. CONSTITUTIONAL: Progressive weakness. No fever, chills, night sweats. PHYSICAL EXAMINATION: Blood pressure 117/70, pulse rate 80, temperature 97.4. HEENT examination unremarkable. Conjunctivae pale. Sclerae anicteric. Oral cavity no lesions. NECK: No JVD or lymph node enlargement. CHEST: Clear to auscultation. HEART: Regular rate and rhythm. ABDOMEN: Soft. Bowel sounds are positive. Minimal tenderness in the epigastric area. EXTREMITIES: No pedal edema. SKIN: No rashes. NEUROLOGIC: Alert and oriented x3. No focal deficits. LABS: WBC 5.9, hemoglobin 5.6, platelets 582, MCV 76. Basic metabolic panel is within normal limits. BUN 21, creatinine 0.63. Stool occult blood was negative. Serum alcohol level was less than 10. IMPRESSION: 1. Severe microcytic hypochromic anemia, most likely secondary to occult gastrointestinal blood loss. Patient clinically does not have any evidence of active ongoing bleeding. Lately she has been taking Motrin and Excedrin for severe migraine headaches. Possibility of peptic ulcer disease needs to be considered. Also colonic pathology cannot be excluded. 2. History of migraine headaches. 3. History of anxiety, depression. RECOMMENDATIONS: 1. Agree with PRBC transfusion. 2. Monitor CBC daily. 3. Will proceed with EGD and colonoscopy as part of workup of microcytic hypochromic anemia. She understands risks, benefits and complications of endoscopic procedures, which are scheduled for tomorrow. Thank you for this consultation. MMODL / IJN: [id number] /
[2020-02-28 06:50] LABS: Anisocytosis Slight; HCT 27.5 % (34.0-46.0); HGB 8.1 gm/dL (11.4-16.0); Hypochromasia Marked; MCH 24.2 pg (25.0-35.0); MCHC 29.6 g/dL (31.0-37.0); MCV 81.8 fL (80.0-100.0); Mean Platelet Volume 7.1; Platelet Count 412 k/uL (150-450); Poikilocytosis Marked; RBC 3.36 m/uL (3.80-5.40); WBC 4.8 k/uL (3.8-10.6)
[2020-02-28 06:58] LABS: African American GFR (CKD) >90 (>60 ml/min/1.73 sqM); Anion Gap 8 mmol/L; Blood Urea Nitrogen 9 mg/dL (7-17); Carbon Dioxide 25 mmol/L (22-30); Chloride 105 mmol/L (98-107); Glucose 91 mg/dL (74-99); Non-African American GFR(CKD) >90 (>60 ml/min/1.73 sqM); Potassium 3.3 mmol/L (3.5-5.1); Sodium 138 mmol/L (137-145)
[2020-02-28] MEDS ORDERED: PROPOFOL 10 MG/ML 20 ML VIAL IV ONE (07:06)
[2020-02-28] MEDS ORDERED: LIDOCAINE 1% INJ 10MG/ML (20 ML MDV) ONE (07:06)
[2020-02-28] MEDS ORDERED: IV FLUID CONTINUATION 450 ML IV ONE (07:07)
--- NOTE | 2020-02-28 07:29 | P.PCN ---
Date of Procedure: 02/28/20 Procedure(s) Performed: Brief history: Patient is a pleasant 39-year-old white female admitted hospital with severe symptomatic anemia and hemoglobin of 5.5 g/dL she received 3 units of blood transfusion. Hemoglobin today is 8 g/dL. She has been complaining of epigastric pain and heartburn and has been taking NSAIDs. She scheduled for an upper endoscopy as well as colonoscopy as a part of evaluation of evaluation of severe symptomatic anemia. Procedure performed: Esophagogastroduodenoscopy with biopsy Colonoscopy Preoperative diagnosis: Severe iron deficiency anemia and Hemoccult-positive stool Anesthesia: [facility] Procedure: After informed consent was obtained from the patient was brought into the endoscopy unit and IV sedation was administered by anesthesia under continuous monitoring. Initially upper endoscopy was done. The Olympus GF 160 video endoscope was inserted inserted into the mouth and esophagus intubated without any difficulty and was gradually advanced into the stomach and duodenum and carefully examined. The bulb and second part of the duodenum appeared normal. The scope was then withdrawn into the stomach adequately insufflated with air and upon careful examination the antrum had 2 superficial ulcerations measuring 1 cm and 2 cm in size both of which were superficial with no active bleeding and biopsies were done from the margin of the ulcer. Thed body, cardia and fundus appeared normal. The scope was then withdrawn into the esophagus. The GE junction was located at 40 cm to the incisors. It appeared regular with no erythema erosions or ulcerations. Rest of the esophagus appeared normal. Patient tolerated the procedure well. At this time the patient continued to remain sedation. Initial digital rectal examination was normal. Olympus CF 160 video colonoscope was then inserted into the rectum and gradually advanced to the cecum without any difficulty. Careful examination was performed as the scope was gradually being withdrawn. The prep was excellent. The cecum, ascending colon, transverse colon, descending colon, sigmoid colon and rectum appeared normal. Retroflexion was performed in the rectum and no lesions were noted. Patient tolerated the procedure well. Impression: 1. Upper endoscopy revealed two antral ulceration he measuring 2 cm and superficial with no active bleeding 2. Colonoscopy was essentially within normal limits with no evidence of colorectal neoplasia Recommendations: Findings of this examination were discussed with the patient . She was advised to avoid NSAIDs. She will be continued on Protonix 40 mg twice daily in the meantime will await biopsy results. Diet will be advanced as tolerated. Start iron supplements twice daily. He can be discharged home today with outpatient follow-up in one month
[2020-02-28] MEDS ORDERED: MULTIVITAMINS, THERA 1 EACH TAB PO SCH (09:00)
[2020-02-28] MEDS: PANTOPRAZOLE 40 MG TABLET PO SCH (09:13)
[2020-02-28] MEDS: THIAMINE 100 MG TAB PO SCH (09:13)
[2020-02-28] MEDS: DULoxetine HCL 60 MG CAPSULE.DR PO SCH (09:13)
--- NOTE | 2020-02-28 09:30 | P.DS ---
Providers Date of admission: 02/26/20 19:35 Attending physician: David Murphy Consults: 02/26/20 19:38 Consult Physician Routine Consulting Provider: Buzz Gleason Consult Reason/Comments: anemia Do you want consulting provider notified?: Yes Primary care physician: Patricia Gonzalez [facility] Course: This is a 39-year-old female patient of Dr. Gonzalez with a past medical history of a GI bleed in 2008 patient reports is secondary to Excedrin and non- steroidal anti-inflammatories. Patient underwent an EGD and colonoscopy in 2008 and subsequently had endoscopy by Dr. Lynn in [place]. She apparently followed up with Dr. Cueva at that time for anemia. She also has past medical history of fibromyalgia, migraine headaches, irritable bowel syndrome, primary immunodeficiency disorder which is been stable with no active medications, mild intermittent asthma, hypothyroidism taking kelp with improvement of her thyroid levels according to the patient. Patient states that she quit smoking 6 months ago at only smoked for about half a year. She has been drinking a fifth a day both for a couple weeks she has cut down to one half to 1. per day. Heavy alcohol use since August 2019. Patient presented to [facility] emergency center because she was not feeling well. She has not been feeling well for the past 2 months. She started taking Motrin due to her migraine headaches at 1600 mg twice a day and 3 pills of Excedrin twice a day. She denies any hematemesis, melena, hematochezia. Alcohol makes her symptoms worse. She does have epigastric discomfort that she describes as a stabbing pain. Hemoglobin was found to be 5.6, status post 2 unit of packed RBCs with hemoglobin of 8.7. WBC 7.2, platelet count 451. Sodium 139, potassium 3.7, chloride 108, CO2 21, BUN 21, creatinine 0.63. Liver function tests are normal. Troponin negative. Urinalysis cloudy with nitrate and leukoesterase negative, 18 squamous cells. Stool for occult blood is negative. Serum alcohol level less than 10. Coronavirus PCR not detected. Patient was admitted to the cardiac stepdown unit and seen by gastroenterology with plan for EGD and colonoscopy tomorrow. 02/28/2020: EGD and colonoscopy performed today. 2 small ulcerations noted in the upper GI no active bleeding. Patient's hemoglobin 8.1 this morning. Patient is tolerating meals without any difficulties. Patient was instructed not to use NSAIDs and we'll use Protonix instead of Prevacid. Patient is anxious to go home. She has no complaints or concerns at this time. Discharge diagnosis: 1. Anemia, most likely acute blood loss anemia secondary to acute upper GI bleed from gastritis secondary to alcohol use with nonsteroidal anti- inflammatory drugs. 2. Acute blood loss anemia status post transfusion of 2 units of packed RBCs. 3. History of migraine headaches. 4. Seasonal ALLERGIES. 5. Recurrent depression and generalized anxiety disorder. 6. History of GI bleed and gastroesophageal reflux disease. 7. Alcohol abuse. 8. History of tobacco use. 9. History of primary immunodeficiency disorder. 10. Irritable bowel syndrome, 11. Mild intermittent asthma, 12. COVID-19 infection not present. Discharge disposition: Home with self-care Impression and plan of care have been directed as dictated by the signing physician. Joi Brown nurse practitioner acting as scribe for signing physician. Patient Condition at Discharge: Serious Plan - Discharge Summary Discharge Rx Participant: Yes New Discharge Prescriptions: New Pantoprazole [Protonix] 40 mg PO BID #60 tablet. Continue diphenhydrAMINE HCL [Benadryl] 50 mg PO DAILY PRN PRN Reason: Migraine Headache SUMAtriptan SUCCINATE [Imitrex] 50 mg PO BID PRN PRN Reason: Migraine Headache [id number] [Excedrin] 3 tab PO DAILY PRN PRN Reason: Migraine Headache DULoxetine HCL [Cymbalta] 60 mg PO DAILY Cetirizine HCl [Zyrtec] 10 mg PO DAILY PRN PRN Reason: Allergy Symptoms Discontinued Ibuprofen [Motrin Ib] 800 mg PO BID PRN PRN Reason: Pain Omeprazole Magnesium [PriLOSEC OTC] 20 - 60 mg PO BID Discharge Medication List [id number] [Excedrin] 3 tab PO DAILY PRN 02/26/20 [History] Cetirizine HCl [Zyrtec] 10 mg PO DAILY PRN 02/26/20 [History] DULoxetine HCL [Cymbalta] 60 mg PO DAILY 02/26/20 [History] SUMAtriptan SUCCINATE [Imitrex] 50 mg PO BID PRN 02/26/20 [History] diphenhydrAMINE HCL [Benadryl] 50 mg PO DAILY PRN 02/26/20 [History] Pantoprazole [Protonix] 40 mg PO BID #60 tablet. 02/28/20 [Rx] Follow up Appointment(s)/Referral(s): Patricia Gonzalez MD [Primary Care Provider] - 1-2 days
[2020-02-28 09:33] VITALS: BP 106/59; PULSE 73; RESP 14; TEMP 97.3
[2020-02-28] MEDS: BUTALB/APAP/CAFF 50-325-40MG TAB PO PRN ×2 (13:26→16:09)
== END 2020-02-28 16:15 | disposition home or self-care (01) | DRG 378 ==
LOC: EC 17:09 → 3SCARD 19:35
PROVIDERS: ADMIT Internal Medicine Geriatric Medicine; ATTEND Internal Medicine Geriatric Medicine
PROC: 30233N1 Transfusion of Nonautologous Red Blood Cells into Peripheral Vein, Percutaneous Approach (ICD-10-PCS; 2020-02-26)
PROC: 0DB78ZX Excision of Stomach, Pylorus, Via Natural or Artificial Opening Endoscopic, Diagnostic (ICD-10-PCS; principal; 2020-02-28 07:00)
PROC: 0DJD8ZZ Inspection of Lower Intestinal Tract, Via Natural or Artificial Opening Endoscopic (ICD-10-PCS; 2020-02-28 07:00)
DX: K29.21 Alcoholic gastritis with bleeding (principal); D62 Acute posthemorrhagic anemia; D84.8 Other specified immunodeficiencies; F33.9 Major depressive disorder, recurrent, unspecified; Z11.59 Encounter for screening for other viral diseases; K25.4 Chronic or unspecified gastric ulcer with hemorrhage; M79.7 Fibromyalgia; J45.20 Mild intermittent asthma, uncomplicated; G43.909 Migraine, unspecified, not intractable, without status migrainosus; K58.9 Irritable bowel syndrome, unspecified; F10.10 Alcohol abuse, uncomplicated; F41.1 Generalized anxiety disorder; E03.9 Hypothyroidism, unspecified; K21.9 Gastro-esophageal reflux disease without esophagitis; T39.395A Adverse effect of other nonsteroidal anti-inflammatory drugs [NSAID], initial encounter; Y90.0 Blood alcohol level of less than 20 mg/100 ml; Z71.3 Dietary counseling and surveillance; Z79.899 Other long term (current) drug therapy; Z91.048 Other nonmedicinal substance allergy status; Z98.890 Other specified postprocedural states; Z87.891 Personal history of nicotine dependence; Z88.1 Allergy status to other antibiotic agents; Z91.040 Latex allergy status; Z88.0 Allergy status to penicillin; Z88.8 Allergy status to other drugs, medicaments and biological substances; Z82.49 Family history of ischemic heart disease and other diseases of the circulatory system; Z82.69 Family history of other diseases of the musculoskeletal system and connective tissue
CPT/HCPCS: 36415; 43239; 45378; 80048; 80053; 80320; 81001; 81025; 82272; 83735; 84484; 85025; 85027; 86850; 86900; 86901; 86920; 88305; 88342; 93005; 99285

== ENCOUNTER 2020-05-03 18:25 | Emergency (ER) | payer OTHER ==
[2020-05-03 18:43] VITALS: RESP 18; TEMP 98.2
--- NOTE | 2020-05-03 19:04 | ED ---
General Adult HPI - General Chief complaint: Recheck/Abnormal Lab/Rx Stated complaint: low hemoglobin Time Seen by Provider: 05/03/20 18:47 Source: patient, family Mode of arrival: wheelchair Limitations: no limitations - History of Present Illness Initial comments: Dictation was produced using [employer] dictation software. please excuse any grammatical, word or spelling errors. This patient was cared for during a federal and state declared state of emergency secondary to Covid 19 Chief Complaint: 39-year-old female past medical history fibromyalgia, peptic ulcer disease asthma presents with lightheadedness and abdominal pain. History of Present Illness: 39-year-old female she presents to the emergency Department K she feels as though she is having another anemic episode. Patient states that early this year she had been diagnosed with peptic ulcer disease. She states her hemoglobin drop to 5. She noted that she is having on-and-off episodes of bloody stool. She does have some epigastric and right upper quadrant pain. States that the pain is only when pressing. She does have pain when she eats. She states she's been eating Ramen because any other foods will upset her epigastric pain. The ROS documented in this emergency department record has been reviewed and confirmed by me. Those systems with pertinent positive or negative responses have been documented in the HPI. All other systems are other negative and/or noncontributory. PHYSICAL EXAM: General Impression: Alert and oriented x3, not in acute distress HEENT: Normocephalic atraumatic, extra-ocular movements intact, pupils equal and reactive to light bilaterally, mucous membranes moist. Cardiovascular: Heart regular rate and rhythm Chest: Able to complete full sentences, no retractions, no tachypnea Abdomen: abdomen soft, right upper quadrant tenderness to palpation, positive Montero sign, non-distended, no organomegaly Musculoskeletal: Pulses present and equal in all extremities, no peripheral edema Motor: no focal deficits noted Neurological: CN II-XII grossly intact, no focal motor or sensory deficits noted Skin: Intact with no visualized rashes Psych: Normal affect and mood ED course: 39-year-old female presents with concerns of GI bleed. Vital signs upon arrival are within acceptable limits. Laboratory evaluation obtained. Hemoglobin 9.0. This appears to be higher than patient's baseline. Rest of CBC is unremarkable. Coag panel is negative. Metabolic panel is negative. Liver enzymes are normal. Urinalysis is negative. So, blood is negative. Abdominal x-rays nonacute. Collateral ultrasound was obtained showing no acute processes. No gallbladder wall thickening, increased CBD or pericholecystic fluid. She did have a positive sonographic Montero sign however. Patient with a presentation concerning for gastritis versus peptic ulcer disease. She did port some relief with GI cocktail. Patient given refill on her Protonix medications. She still to avoid spicy foods and alcohol. Patient otherwise is going to follow up with her GI doctor. - Related Data Home Medications Medication Instructions Recorded Confirmed [id number] 3 tab PO DAILY PRN 02/26/20 02/26/20 [Excedrin] Cetirizine HCl [Zyrtec] 10 mg PO DAILY PRN 02/26/20 02/26/20 DULoxetine HCL [Cymbalta] 60 mg PO DAILY 02/26/20 02/26/20 SUMAtriptan succinate [Imitrex] 50 mg PO BID PRN 02/26/20 02/26/20 diphenhydrAMINE HCL [Benadryl] 50 mg PO DAILY PRN 02/26/20 02/26/20 Previous Rx's Medication Instructions Recorded Pantoprazole [Protonix] 40 mg PO BID #60 tablet. 02/28/20 Pantoprazole Sodium 40 mg PO DAILY 40 Days #40 05/03/20 tablet. Allergies Allergy/AdvReac Type Severity Reaction Status Date / Time adhesive Allergy Rash/Hives Verified 05/03/20 18:43 latex Allergy Rash/Hives Verified 05/03/20 18:43 prochlorperazine Allergy Unknown Verified 05/03/20 18:43 [From Compazine] ciprofloxacin [From Cipro] AdvReac Hallucinati Verified 05/03/20 18:43 ons citalopram [From Celexa] AdvReac Suicidal Verified 05/03/20 18:43 thoughts diazepam [From Valium] AdvReac Hallucinati Verified 05/03/20 18:43 ons/Anxiety fluoxetine [From Prozac] AdvReac Suicidal Verified 05/03/20 18:43 thoughts metoclopramide [From Reglan] AdvReac Hallucinati Verified 05/03/20 18:43 ons/Anxiety paroxetine [From Paxil] AdvReac Suicidal Verified 05/03/20 18:43 thoughts Penicillins AdvReac Nausea & Verified 05/03/20 18:43 Vomiting Review of Systems ROS Statement: Those systems with pertinent positive or pertinent negative responses have been documented in the HPI. ROS Other: All systems not noted in ROS Statement are negative. Past Medical History Past Medical History: Asthma, Fibromyalgia, GERD/Reflux Additional Past Medical History / Comment(s): anemia, migraines, IBS, primary immunodeficiency disorder History of Any Multi-Drug Resistant Organisms: None Reported Past Surgical History: Breast Surgery, Ear Surgery Additional Past Surgical History / Comment(s): septoplasty, EGD and colonoscopy in 2008 Past Anesthesia/Blood Transfusion Reactions: No Reported Reaction Past Psychological History: Anxiety, Depression Past Alcohol Use History: Abuse, Heavy Past Drug Use History: None Reported - Past Family History Father Additional Family Medical History / Comment(s): Father at age 51 from either myocardial infarction or drug overdose. Mother Additional Family Medical History / Comment(s): Mother is alive at age 61 with h istory of fibromyalgia. Brother(s) Additional Family Medical History / Comment(s): Patient has one brother with history of alcohol abuse. Patient does not have any sisters. Patient has 2 children with no major medical problems. General Exam Limitations: no limitations Course Vital Signs 05/03/20 18:39 Temperature 98.2 F Pulse Rate 99 Respiratory 18 Rate Blood Pressure 120/78 O2 Sat by Pulse 98 Oximetry Medical Decision Making - Lab Data Result diagrams: 05/03/20 18:58 05/03/20 18:58 Lab Results 05/03/20 05/03/20 05/03/20 Range/Units 18:58 18:58 18:58 WBC 4.8 (3.8-10.6) k/uL RBC 3.58 L (3.80-5.40) m/uL Hgb 9.0 L (11.4-16.0) gm/dL Hct 30.8 L (34.0-46.0) % MCV 86.0 (80.0-100.0) fL MCH 25.3 (25.0-35.0) pg MCHC 29.4 L (31.0-37.0) g/dL RDW 15.9 H (11.5-15.5) % Plt Count 488 H (150-450) k/uL Neutrophils % (Manual) 34 % Band Neutrophils % 1 % Lymphocytes % (Manual) 55 % Monocytes % (Manual) 4 % Eosinophils % (Manual) 5 % Basophils % (Manual) 1 % Neutrophils # (Manual) 1.60 (1.3-7.7) k/uL Lymphocytes # (Manual) 2.64 (1.0-4.8) k/uL Monocytes # (Manual) 0.19 (0-1.0) k/uL Eosinophils # (Manual) 0.24 (0-0.7) k/uL Basophils # (Manual) 0.05 (0-0.2) k/uL Nucleated RBCs 0 (0-0) /100 WBC Manual Slide Review Performed Hypochromasia Marked Poikilocytosis Slight Poikilocytosis (manual Present PT 9.7 (9.0-12.0) sec INR 0.9 (<1.2) APTT 19.7 L (22.0-30.0) sec Sodium (137-145) mmol/L Potassium (3.5-5.1) mmol/L Chloride (98-107) mmol/L Carbon Dioxide (22-30) mmol/L Anion Gap mmol/L BUN (7-17) mg/dL Creatinine (0.52-1.04) mg/dL Est GFR (CKD-EPI)AfAm (>60 ml/min/1.73 sqM) Est GFR (CKD-EPI)NonAf (>60 ml/min/1.73 sqM) Glucose (74-99) mg/dL Calcium (8.4-10.2) mg/dL AST (14-36) U/L ALT (4-34) U/L Alkaline Phosphatase (38-126) U/L Lipase (23-300) U/L Urine Color Urine Appearance (Clear) Urine pH (5.0-8.0) Ur Specific [place] (1.001-1.035) Urine Protein (Negative) Urine Glucose (UA) (Negative) Urine Ketones (Negative) Urine Blood (Negative) Urine Nitrite (Negative) Urine Bilirubin (Negative) Urine Urobilinogen (<2.0) mg/dL Ur Leukocyte Esterase (Negative) Stool Occult Blood Negative (Negative) 05/03/20 05/03/20 05/03/20 Range/Units 18:58 18:58 19:12 WBC (3.8-10.6) k/uL RBC (3.80-5.40) m/uL Hgb (11.4-16.0) gm/dL Hct (34.0-46.0) % MCV (80.0-100.0) fL MCH (25.0-35.0) pg MCHC (31.0-37.0) g/dL RDW (11.5-15.5) % Plt Count (150-450) k/uL Neutrophils % (Manual) % Band Neutrophils % % Lymphocytes % (Manual) % Monocytes % (Manual) % Eosinophils % (Manual) % Basophils % (Manual) % Neutrophils # (Manual) (1.3-7.7) k/uL Lymphocytes # (Manual) (1.0-4.8) k/uL Monocytes # (Manual) (0-1.0) k/uL Eosinophils # (Manual) (0-0.7) k/uL Basophils # (Manual) (0-0.2) k/uL Nucleated RBCs (0-0) /100 WBC Manual Slide Review Hypochromasia Poikilocytosis Poikilocytosis (manual PT (9.0-12.0) sec INR (<1.2) APTT (22.0-30.0) sec Sodium 138 (137-145) mmol/L Potassium 4.2 (3.5-5.1) mmol/L Chloride 106 (98-107) mmol/L Carbon Dioxide 26 (22-30) mmol/L Anion Gap 6 mmol/L BUN 18 H (7-17) mg/dL Creatinine 0.89 (0.52-1.04) mg/dL Est GFR (CKD-EPI)AfAm >90 (>60 ml/min/1.73 sqM) Est GFR (CKD-EPI)NonAf 81 (>60 ml/min/1.73 sqM) Glucose 92 (74-99) mg/dL Calcium 9.3 (8.4-10.2) mg/dL AST 24 (14-36) U/L ALT 15 (4-34) U/L Alkaline Phosphatase 83 (38-126) U/L Lipase 82 (23-300) U/L Urine Color Yellow Urine Appearance Clear (Clear) Urine pH 6.5 (5.0-8.0) Ur Specific [place] 1.031 (1.001-1.035) Urine Protein Trace H (Negative) Urine Glucose (UA) Negative (Negative) Urine Ketones Negative (Negative) Urine Blood Negative (Negative) Urine Nitrite Negative (Negative) Urine Bilirubin Negative (Negative) Urine Urobilinogen 2.0 (<2.0) mg/dL Ur Leukocyte Esterase Negative (Negative) Stool Occult Blood (Negative) Disposition Clinical Impression: Abdominal pain Disposition: HOME SELF-CARE Condition: Good Instructions (If sedation given, give patient instructions): Gastritis (ED) Prescriptions: Pantoprazole Sodium 40 mg PO DAILY 40 Days #40 tablet.dr Is patient prescribed a controlled substance at d/c from ED?: No Referrals: Zainab Kinney MD [STAFF PHYSICIAN] - 1-2 days Time of Disposition: 20:33
[2020-05-03 19:24] LABS: Appearance,Urine Clear (Clear); Bilirubin,Urine Negative (Negative); Blood,Urine Negative (Negative); Color,Urine Yellow; Glucose,Urine (UA) Negative (Negative); Ketones,Urine Negative (Negative); Leukocyte Esterase,Urine Negative (Negative); Nitrite,Urine Negative (Negative); PH, Urine 6.5 (5.0-8.0); Protein,Urine Trace (Negative); Specific Gravity,Urine 1.031 (1.001-1.035)
[2020-05-03 19:26] LABS: HCT 30.8 % (34.0-46.0); Hypochromasia Marked; MCH 25.3 pg (25.0-35.0); MCHC 29.4 g/dL (31.0-37.0); Mean Platelet Volume 7.1; Platelet Count 488 k/uL (150-450); Poikilocytosis Slight; RBC 3.58 m/uL (3.80-5.40); RDW 15.9 % (11.5-15.5); WBC 4.8 k/uL (3.8-10.6)
[2020-05-03 19:34] LABS: African American GFR (CKD) >90 (>60 ml/min/1.73 sqM); Anion Gap 6 mmol/L; Blood Urea Nitrogen 18 mg/dL (7-17); Calcium 9.3 mg/dL (8.4-10.2); Carbon Dioxide 26 mmol/L (22-30); Chloride 106 mmol/L (98-107); Glucose 92 mg/dL (74-99); Non-African American GFR(CKD) 81 (>60 ml/min/1.73 sqM); Potassium 4.2 mmol/L (3.5-5.1); Sodium 138 mmol/L (137-145)
[2020-05-03 19:42] LABS: INR 0.9 (<1.2); Prothrombin Time 9.7 sec (9.0-12.0)
[2020-05-03 19:45] LABS: Partial Thromboplastin Time 19.7 sec (22.0-30.0)
[2020-05-03 19:52] LABS: Band Neutrophils % 1 %; Basophils # (M) 0.05 k/uL (0-0.2); Eosinophils # (M) 0.24 k/uL (0-0.7); Lymphocytes # (M) 2.64 k/uL (1.0-4.8); Monocytes # (M) 0.19 k/uL (0-1.0); Neutrophils % (M) 34 %; Nucleated Red Blood Cells 0 /100 WBC (0-0); Total Cells Counted 100
[2020-05-03 19:53] LABS: Poikilocytosis (M) Present
--- NOTE | 2020-05-03 19:55 | XR ---
EXAMINATION TYPE: XR abdomen 1V DATE OF EXAM: 05/03/2020 COMPARISON: NONE HISTORY: Abdominal pain TECHNIQUE: 2 views upright FINDINGS: Bowel gas pattern is normal. There is no sign of intestinal obstruction or pneumoperitoneum . Fecal pattern is normal. Lung bases are clear. There are no pathologic calcifications. IMPRESSION: Nonacute abdomen.
[2020-05-03 20:05] LABS: ALT 15 U/L (4-34); AST 24 U/L (14-36); Alkaline Phosphatase 83 U/L (38-126)
[2020-05-03] MEDS ORDERED: PANTOPRAZOLE 40 MG/10 ML VIAL IVP STA (20:10)
[2020-05-03] MEDS ORDERED: MAG HYDROX/AL HYDROX/SIMETH 30 ML, HYOSCYAMINE ELIXIR 10 ML, LIDOCAINE VISCOUS 2% 10 ML PO STA ×3 (20:10)
--- NOTE | 2020-05-03 20:23 | US ---
EXAMINATION TYPE: US gallbladder DATE OF EXAM: 05/03/2020 COMPARISON: NONE CLINICAL HISTORY: + montero sign. + Montero sign. RUQ pain x 2 weeks. EXAM MEASUREMENTS: Liver Length: 17.54 cm Gallbladder Wall: 0.28 cm CBD: 0.38 cm Right Kidney: 11.5 x 4.8 x 3.8 cm *Limited due to gas Pancreas: No abnormalities seen at this time. Liver: Measures upper limits of normal. Gallbladder: Minimal internal echoes seen versus artifact. Evidence for sonographic Montero's sign: Yes CBD: Appears to be wnl Right Kidney: No hydronephrosis or masses seen IMPRESSION: There was some tenderness over the gallbladder. No definite gallstones. No dilated ducts.
[2020-05-03 20:45] VITALS: BP 116/76; PULSE 95
== END 2020-05-03 20:44 | disposition home or self-care (01) ==
LOC: EC 18:25
DX: R10.13 Epigastric pain (principal); R10.11 Right upper quadrant pain; G43.909 Migraine, unspecified, not intractable, without status migrainosus; F32.9 Major depressive disorder, single episode, unspecified; F41.9 Anxiety disorder, unspecified; M79.7 Fibromyalgia; Z79.899 Other long term (current) drug therapy; Z91.048 Other nonmedicinal substance allergy status; Z91.040 Latex allergy status; Z88.1 Allergy status to other antibiotic agents; Z88.8 Allergy status to other drugs, medicaments and biological substances; Z88.0 Allergy status to penicillin; Z87.11 Personal history of peptic ulcer disease
CPT/HCPCS: 36415; 86900; 86901; 80048; 83690; 84075; 84450; 84460; 85025; 85610; 85730; 86850; 86870; 86880; 82272; 81003; 74018; 76705; 99284; 96374; C9113

== ENCOUNTER 2020-05-24 04:03 | Emergency (ER) | payer OTHER ==
[2020-05-24 04:09] VITALS: BP 125/71; PULSE 100; RESP 18; TEMP 98.6
[2020-05-24] MEDS ORDERED: diphenhydrAMINE 50 MG/ML 1 ML VIAL IVP STA (04:58)
[2020-05-24] MEDS ORDERED: HYDROmorphone 1 MG/ML 1 ML SYRINGE IVP STA (04:58)
[2020-05-24] MEDS ORDERED: ONDANSETRON 4 MG/2 ML VIAL IVP STA (04:58)
--- NOTE | 2020-05-24 05:38 | ED ---
Headache HPI - General Chief Complaint: Headache Stated Complaint: headache Time Seen by Provider: 05/24/20 04:11 Mode of arrival: ambulatory Limitations: no limitations - History of Present Illness Initial Comments: Dimple is a 39yo female with history of migraines presents the ER this morning for evaluation of a migraine. Patient reports that she developed a headache 2 days ago, headache has been persistent. She states that today she took Excedrin and Benadryl with no improvement. Patient states she hasn't been able to sleep in 2 nights because of the headache and feels very restless. Patient describes his headache as all over pressure similar to previous migraines, was not sudden in onset, not the worse headache of her life, not thunderclap, not associated with fever or focal neurologic deficits. Patient was previously prescribed Imitrex for states that currently she is out. - Related Data Home Medications Medication Instructions Recorded Confirmed [id number] 3 tab PO DAILY PRN 02/26/20 05/24/20 [Excedrin] Cetirizine HCl [Zyrtec] 10 mg PO DAILY PRN 02/26/20 05/24/20 DULoxetine HCL [Cymbalta] 60 mg PO DAILY 02/26/20 05/24/20 diphenhydrAMINE HCL [Benadryl] 50 mg PO DAILY PRN 02/26/20 05/24/20 Cholecalciferol [Vitamin D3 (25 1,000 unit PO DAILY 05/24/20 05/24/20 Mcg = 1000 Iu)] Folic Acid 1 mg PO DAILY 05/24/20 05/24/20 Thiamine [Vitamin B-1] 100 mg PO DAILY 05/24/20 05/24/20 Previous Rx's Medication Instructions Recorded Pantoprazole Sodium 40 mg PO DAILY 40 Days #40 05/03/20 tablet. Allergies Allergy/AdvReac Type Severity Reaction Status Date / Time adhesive Allergy Rash/Hives Verified 05/24/20 06:47 latex Allergy Rash/Hives Verified 05/24/20 06:47 prochlorperazine Allergy Unknown Verified 05/24/20 06:47 [From Compazine] ciprofloxacin [From Cipro] AdvReac Hallucinati Verified 05/24/20 06:47 ons citalopram [From Celexa] AdvReac Suicidal Verified 05/24/20 06:47 thoughts diazepam [From Valium] AdvReac Hallucinati Verified 05/24/20 06:47 ons/Anxiety fluoxetine [From Prozac] AdvReac Suicidal Verified 05/24/20 06:47 thoughts metoclopramide [From Reglan] AdvReac Hallucinati Verified 05/24/20 06:47 ons/Anxiety paroxetine [From Paxil] AdvReac Suicidal Verified 05/24/20 06:47 thoughts Penicillins AdvReac Nausea & Verified 05/24/20 06:47 Vomiting Review of Systems ROS Statement: Those systems with pertinent positive or pertinent negative responses have been documented in the HPI. ROS Other: All systems not noted in ROS Statement are negative. Past Medical History Past Medical History: Asthma, Fibromyalgia, GERD/Reflux Additional Past Medical History / Comment(s): anemia, migraines, IBS, primary immunodeficiency disorder History of Any Multi-Drug Resistant Organisms: None Reported Past Surgical History: Breast Surgery, Ear Surgery, Uterine Ablation Additional Past Surgical History / Comment(s): septoplasty, EGD and colonoscopy in 2008 Past Anesthesia/Blood Transfusion Reactions: No Reported Reaction Past Psychological History: Anxiety, Depression Smoking Status: Vaper Past Alcohol Use History: Abuse, Heavy Past Drug Use History: None Reported - Past Family History Father Additional Family Medical History / Comment(s): Father at age 51 from either myocardial infarction or drug overdose. Mother Additional Family Medical History / Comment(s): Mother is alive at age 61 with history of fibromyalgia. Brother(s) Additional Family Medical History / Comment(s): Patient has one brother with history of alcohol abuse. Patient does not have any sisters. Patient has 2 children with no major medical problems. General Exam - General Exam Comments Initial Comments: Physical Exam GENERAL: Patient is well-developed and well-nourished. Patient is nontoxic and well-hydrated and is in no distress. HENT: Normocephalic, Atraumatic. EYES: PERRL, EOMI PULMONARY: Unlabored respirations. CARDIOVASCULAR: RRR Warm and well perfused extremities ABDOMEN: Non-distended SKIN: No rashes or bruising : Deferred NEUROLOGIC: Alert and oriented Normal speech Normal gait MUSCULOSKELETAL: Moving all extremities with no apparent injury PSYCHIATRIC: No SI/HI Limitations: no limitations Course Vital Signs 05/24/20 04:05 Temperature 98.6 F Pulse Rate 100 Respiratory 18 Rate Blood Pressure 125/71 O2 Sat by Pulse 100 Oximetry Medical Decision Making - Medical Decision Making Patient was seen and evaluated history was obtained from the patient History and physical exam concerning for migraine with no red flag symptoms Patient be treated symptomatically Patient received first dose of medications, persistent nausea and mild headache, Tigan and fiorcet ordered Patient was re-evaluated, resolution of headache requesting to go home Disposition Clinical Impression: Migraine Disposition: HOME SELF-CARE Condition: Stable Instructions (If sedation given, give patient instructions): Acute Headache (ED) Is patient prescribed a controlled substance at d/c from ED?: No Referrals: Patricia Gonzalez MD [Primary Care Provider] - 1-2 days
[2020-05-24] MEDS ORDERED: TRIMETHOBENZAMIDE 100 MG/ML 2 ML VIAL IM STA (06:10)
[2020-05-24] MEDS ORDERED: BUTALB/APAP/CAFF 50-325-40MG TAB PO ONE (06:15)
== END 2020-05-24 07:39 | disposition home or self-care (01) ==
LOC: EC 04:03
DX: G43.909 Migraine, unspecified, not intractable, without status migrainosus (principal); D64.9 Anemia, unspecified; M79.7 Fibromyalgia; F41.9 Anxiety disorder, unspecified; F32.9 Major depressive disorder, single episode, unspecified; F17.290 Nicotine dependence, other tobacco product, uncomplicated; Z79.899 Other long term (current) drug therapy; Z91.048 Other nonmedicinal substance allergy status; Z91.040 Latex allergy status; Z88.1 Allergy status to other antibiotic agents; Z88.8 Allergy status to other drugs, medicaments and biological substances; Z88.0 Allergy status to penicillin
CPT/HCPCS: 99284 ×2; 96374 ×2; 96375 ×3; 96372 ×2; J1200; J3250; J2405; J1170

== ENCOUNTER 2020-06-15 14:42 | Emergency (ER) | payer OTHER ==
[2020-06-15 14:50] VITALS: RESP 16
[2020-06-15] MEDS ORDERED: KETOROLAC 15 MG/ML 1 ML VIAL IVP STA (15:14)
[2020-06-15] MEDS ORDERED: ONDANSETRON 4 MG/2 ML VIAL IVP STA (15:14)
[2020-06-15] MEDS ORDERED: HYDROmorphone 0.5 MG/0.5 ML SYRINGE IVP STA (15:14)
[2020-06-15] MEDS ORDERED: diphenhydrAMINE 50 MG/ML 1 ML VIAL IVP STA (15:15)
[2020-06-15] MEDS ORDERED: AMOXIC-POT CLAV 875MG STARTER PACK 2 TAB BTL PO STA (15:35)
--- NOTE | 2020-06-15 15:42 | ED ---
Headache HPI - General Chief Complaint: Headache Stated Complaint: Headache Time Seen by Provider: 06/15/20 14:56 Mode of arrival: ambulatory Limitations: no limitations - History of Present Illness Initial Comments: 39-year-old female with history of chronic migraines presents emergency department today for chief complaint of headache. Patient states that she has had a headache for the past 2 days she states it feels typical for migraines. She states the only new symptom is that she has facial pressure that has been ongoing for the past 2 weeks she states she's had green Rene is also current concern of a sinus infection. She denies any neck stiffness fevers chills or general malaise. Patient states that she has her typical nausea and light sensitivity that is accompanied by her migraines. Patient states she was here within the last 3 months and had a migraine cocktail she said this seemed to help her symptoms. Patient states that she has had previous [place] normal MRIs denies any known history of aneurysm she denies sudden onset of headache or this being the worst headache of her life. Patient denies a strokelike symptoms such as weakness of sensation deficits facial asymmetry or speech changes denies dizziness or vision changes/loss. Patient denies additional complaints arrival she appears nontoxic in no acute distress. VS unremarkable. - Related Data Home Medications Medication Instructions Recorded Confirmed [id number] 3 tab PO DAILY PRN 02/26/20 05/24/20 [Excedrin] Cetirizine HCl [Zyrtec] 10 mg PO DAILY PRN 02/26/20 05/24/20 DULoxetine HCL [Cymbalta] 60 mg PO DAILY 02/26/20 05/24/20 diphenhydrAMINE HCL [Benadryl] 50 mg PO DAILY PRN 02/26/20 05/24/20 Cholecalciferol [Vitamin D3 (25 1,000 unit PO DAILY 05/24/20 05/24/20 Mcg = 1000 Iu)] Folic Acid 1 mg PO DAILY 05/24/20 05/24/20 Thiamine [Vitamin B-1] 100 mg PO DAILY 05/24/20 05/24/20 Previous Rx's Medication Instructions Recorded Pantoprazole Sodium 40 mg PO DAILY 40 Days #40 05/03/20 tablet. Amoxicillin/Potassium Clav 1 tab PO Q12HR 7 Days #14 tab 06/15/20 [Augmentin 875-125 Tablet] Allergies Allergy/AdvReac Type Severity Reaction Status Date / Time adhesive Allergy Rash/Hives Verified 06/15/20 14:53 latex Allergy Rash/Hives Verified 06/15/20 14:53 prochlorperazine Allergy Unknown Verified 06/15/20 14:53 [From Compazine] ciprofloxacin [From Cipro] AdvReac Hallucinati Verified 06/15/20 14:53 ons citalopram [From Celexa] AdvReac Suicidal Verified 06/15/20 14:53 thoughts diazepam [From Valium] AdvReac Hallucinati Verified 06/15/20 14:53 ons/Anxiety fluoxetine [From Prozac] AdvReac Suicidal Verified 06/15/20 14:53 thoughts metoclopramide [From Reglan] AdvReac Hallucinati Verified 06/15/20 14:53 ons/Anxiety paroxetine [From Paxil] AdvReac Suicidal Verified 06/15/20 14:53 thoughts Penicillins AdvReac Nausea & Verified 06/15/20 14:53 Vomiting Review of Systems ROS Statement: Those systems with pertinent positive or pertinent negative responses have been documented in the HPI. ROS Other: All systems not noted in ROS Statement are negative. Past Medical History Past Medical History: Asthma, Fibromyalgia, GERD/Reflux Additional Past Medical History / Comment(s): anemia, migraines, IBS, primary immunodeficiency disorder History of Any Multi-Drug Resistant Organisms: None Reported Past Surgical History: Breast Surgery, Ear Surgery, Uterine Ablation Additional Past Surgical History / Comment(s): septoplasty, EGD and colonoscopy in 2008 Past Anesthesia/Blood Transfusion Reactions: No Reported Reaction Past Psychological History: Anxiety, Depression Smoking Status: Vaper Past Alcohol Use History: Abuse, Heavy Past Drug Use History: None Reported - Past Family History Father Additional Family Medical History / Comment(s): Father at age 51 from either myocardial infarction or drug overdose. Mother Additional Family Medical History / Comment(s): Mother is alive at age 61 with history of fibromyalgia. Brother(s) Additional Family Medical History / Comment(s): Patient has one brother with history of alcohol abuse. Patient does not have any sisters. Patient has 2 children with no major medical problems. General Exam - General Exam Comments Initial Comments: General: The patient is awake and alert, in no distress Eye: Pupils are equal, round and reactive to light, extra-ocular movements are intact. No nystagmus. There is normal conjunctiva bilaterally. No signs of icterus. Ears, nose, mouth and throat: There are moist mucous membranes and no oral lesions. Pain to palpation of the maxillary sinus b/l Neck: The neck is supple, there is no tenderness or JVD. Cardiovascular: There is a regular rate and rhythm. No murmur, rub or gallop is appreciated. Respiratory: Lungs are clear to auscultation, respirations are non-labored, breath sounds are equal. No wheezes, stridor, rales, or rhonchi. Musculoskeletal: Normal ROM, no tenderness. Strength 5/5. Sensation intact. Pulses equal bilaterally 2+. Neurological: A&O x 3. CN II-XII intact, memory intact to immediately, intermediate and prison recall. Able to follow simple verbal. Able to name a common object (flashlight). High quality, labial (pa) and lingual (la) speech. Low quality posterior pharynx/larynx (ga) voice sounds. Able to express general knowledge (days in a week). No hemineglect or inattention noted. Finger agnosia (-) and spatially oriented (identified L index finger touched R shoulder with L index finger). Light touch sensation present over the face, chest, abdomen, back, UE bilaterally, and LE bilaterally. Able to localize point during point localization b/l and extinction. No visible bulk atrophy, hypertrophy, fasciculations, or myoclonus of the UE or LE b/l. Full PROM in UE and LE b/l. Bilateral muscle strength 5/5 for the following muscles: deltoid, biceps, triceps, brachioradialis, wrist extensors/flexor, hip flexor, hip abductors/adductors, hamstrings, quadriceps, feet dorsiflexors/plantar flexors. Finger to nose, finger to the examiners finger, and heel to barrios coordinated and accurate b/l. Coordinated and even demonstration of hand flip, and toe tap b/l. Gait is coordinated and even in stride.Maintains balance with monopedal stance. (-) pronator drift. No nuchal rigidity. signs. Skin: Skin is warm and dry and no rashes or lesions are noted. Psychiatric: Cooperative, appropriate mood & affect, normal judgment. Limitations: no limitations Course Vital Signs 06/15/20 14:49 Temperature 98.7 F Pulse Rate 86 Respiratory 16 Rate Blood Pressure 121/82 O2 Sat by Pulse 99 Oximetry - Reevaluation(s) Reevaluation #1: initial reevaluation pt headache decreased from 10 to 6/10. Will re-medicate and re-evaluate Reevaluation #2: Pt headache "nearly gone" on reevaluation. Patient appears in better spirits, smiling, requesting discharge Medical Decision Making - Medical Decision Making Hx of chronic migraines. No aneursym hx. Not worst headache nor sudden onset. No focal neurological deficits. Patient BLAND resolved. Patient is agreeable to discharge. Patient has had facial pressure x 2 weeks with green nasal drainage. Pt will also be discharged with augmentin as she states she has tolerated amoxicillin in past despite PCN allergy. Disposition Clinical Impression: Headache, Sinus pressure Disposition: HOME SELF-CARE Condition: Good Instructions (If sedation given, give patient instructions): Acute Headache (ED) Additional Instructions: Please use medication as discussed. Please follow-up with family doctor in the next 2 days. Please return to emergency room if the symptoms increase or worsen or for any other concerns. Prescriptions: Amoxicillin/Potassium Clav [Augmentin 875-125 Tablet] 1 tab PO Q12HR 7 Days #14 tab Is patient prescribed a controlled substance at d/c from ED?: No Referrals: Patricia Gonzalez MD [Primary Care Provider] - 1-2 days Time of Disposition: 17:02
[2020-06-15] MEDS ORDERED: HYDROmorphone 1 MG/ML 1 ML SYRINGE IVP STA (16:19)
[2020-06-15 17:27] VITALS: BP 119/89; PULSE 85; TEMP 97.8
== END 2020-06-15 17:27 | disposition home or self-care (01) ==
LOC: EC 14:42
DX: J34.89 Other specified disorders of nose and nasal sinuses (principal); R51.9 Headache, unspecified; F41.9 Anxiety disorder, unspecified; F32.9 Major depressive disorder, single episode, unspecified; J45.909 Unspecified asthma, uncomplicated; F17.290 Nicotine dependence, other tobacco product, uncomplicated; Z79.899 Other long term (current) drug therapy; Z88.0 Allergy status to penicillin; Z88.8 Allergy status to other drugs, medicaments and biological substances; Z88.1 Allergy status to other antibiotic agents; Z91.040 Latex allergy status; Z91.048 Other nonmedicinal substance allergy status
CPT/HCPCS: 99283; 96374; 96375 ×3; 96376; J1200; J2405; J1170 ×2; J1885

== ENCOUNTER 2020-07-13 22:16 | Emergency (ER) | payer OTHER ==
[2020-07-13 22:21] VITALS: RESP 16
[2020-07-13] MEDS ORDERED: diphenhydrAMINE 50 MG/ML 1 ML VIAL IVP STA (23:11)
[2020-07-13] MEDS ORDERED: ONDANSETRON 4 MG/2 ML VIAL IVP STA (23:11)
[2020-07-13] MEDS ORDERED: SODIUM CHLORIDE 0.9% 1,000 ML IV ONE (23:12)
[2020-07-13 23:59] LABS: Anisocytosis Slight; HCT 27.4 % (34.0-46.0); HGB 8.1 gm/dL (11.4-16.0); Hypochromasia Marked; MCH 24.3 pg (25.0-35.0); MCHC 29.5 g/dL (31.0-37.0); MCV 82.3 fL (80.0-100.0); Mean Platelet Volume 6.8; Platelet Count 474 k/uL (150-450); RBC 3.33 m/uL (3.80-5.40); RDW 16.4 % (11.5-15.5); WBC 5.6 k/uL (3.8-10.6)
--- NOTE | 2020-07-14 00:09 | CT ---
EXAMINATION TYPE: CT brain wo con DATE OF EXAM: 07/13/2020 COMPARISON: None HISTORY: Headache CT DLP: 1102.40 mGycm Automated exposure control for dose reduction was used. Ventricles and sulci appear normal. There is no mass effect nor midline shift. There is no sign of in tracranial hemorrhage. Calvarium is intact. Sella turcica appears normal. IMPRESSION: Normal unenhanced head CT scan.
[2020-07-14 00:14] LABS: ALT 15 U/L (4-34); AST 26 U/L (14-36); African American GFR (CKD) 85 (>60 ml/min/1.73 sqM); Albumin 4.4 g/dL (3.5-5.0); Alcohol <10 mg/dL; Alkaline Phosphatase 71 U/L (38-126); Anion Gap 7 mmol/L; Blood Urea Nitrogen 22 mg/dL (7-17); Calcium 9.7 mg/dL (8.4-10.2); Carbon Dioxide 26 mmol/L (22-30); Chloride 104 mmol/L (98-107); Glucose 96 mg/dL (74-99); Non-African American GFR(CKD) 74 (>60 ml/min/1.73 sqM); Potassium 4.3 mmol/L (3.5-5.1); Sodium 137 mmol/L (137-145); Total Bilirubin 0.3 mg/dL (0.2-1.3); Total Protein 7.4 g/dL (6.3-8.2)
[2020-07-14] MEDS ORDERED: HYDROmorphone 1 MG/ML 1 ML SYRINGE IVP STA (00:17)
--- NOTE | 2020-07-14 01:43 | ED ---
General Adult HPI - General Chief complaint: Headache Stated complaint: Head ache Time Seen by Provider: 07/13/20 22:59 Source: patient, RN notes reviewed, old records reviewed Mode of arrival: ambulatory Limitations: no limitations - History of Present Illness Initial comments: 39-year-old female patient ED for migraine headache. Patient was that she has history of migraine headaches. The migraine headache today behind her eyes. Patient reports she's had some nausea. Denies loss of consciousness vision changes. Denies any new or concerning symptoms are different from her prior headaches. Systemic: Pt denies fatigue, fever/chills, rash. Pt denies weakness, night sweats, weight loss. Neuro: Pt denies headache, visual disturbances, syncope or pre-syncope. HEENT: Pt denies ocular discharge or irritation, otalgia, rhinorrhea, pharyngitis or notable lymphadenopathy. Cardiopulmonary: Pt denies chest pain, SOB, heart palpitations, dyspnea on e xertion. Abdominal/GI: Pt denies abdominal pain, n/v/d. : Pt denies dysuria, burning w/ urination, frequency/urgency. Denies new onset urinary or bowel incontinence. MSK: Pt denies myalgia, loss of strength or function in extremities. Neuro: Pt denies new onset weakness, paresthesias. - Related Data Home Medications Medication Instructions Recorded Confirmed [id number] 3 tab PO DAILY PRN 02/26/20 05/24/20 [Excedrin] Cetirizine HCl [Zyrtec] 10 mg PO DAILY PRN 02/26/20 05/24/20 DULoxetine HCL [Cymbalta] 60 mg PO DAILY 02/26/20 05/24/20 diphenhydrAMINE HCL [Benadryl] 50 mg PO DAILY PRN 02/26/20 05/24/20 Cholecalciferol [Vitamin D3 (25 1,000 unit PO DAILY 05/24/20 05/24/20 Mcg = 1000 Iu)] Folic Acid 1 mg PO DAILY 05/24/20 05/24/20 Thiamine [Vitamin B-1] 100 mg PO DAILY 05/24/20 05/24/20 Previous Rx's Medication Instructions Recorded Pantoprazole Sodium 40 mg PO DAILY 40 Days #40 05/03/20 tablet. Amoxicillin/Potassium Clav 1 tab PO Q12HR 7 Days #14 tab 10/27/20 [Augmentin 875-125 Tablet] Allergies Allergy/AdvReac Type Severity Reaction Status Date / Time adhesive Allergy Rash/Hives Verified 06/15/20 14:53 latex Allergy Rash/Hives Verified 06/15/20 14:53 prochlorperazine Allergy Unknown Verified 06/15/20 14:53 [From Compazine] ciprofloxacin [From Cipro] AdvReac Hallucinati Verified 06/15/20 14:53 ons citalopram [From Celexa] AdvReac Suicidal Verified 06/15/20 14:53 thoughts diazepam [From Valium] AdvReac Hallucinati Verified 06/15/20 14:53 ons/Anxiety fluoxetine [From Prozac] AdvReac Suicidal Verified 06/15/20 14:53 thoughts metoclopramide [From Reglan] AdvReac Hallucinati Verified 06/15/20 14:53 ons/Anxiety paroxetine [From Paxil] AdvReac Suicidal Verified 06/15/20 14:53 thoughts Penicillins AdvReac Nausea & Verified 06/15/20 14:53 Vomiting Review of Systems ROS Statement: Those systems with pertinent positive or pertinent negative responses have been documented in the HPI. ROS Other: All systems not noted in ROS Statement are negative. Past Medical History Past Medical History: Asthma, Fibromyalgia, GERD/Reflux Additional Past Medical History / Comment(s): anemia, migraines, IBS, primary immunodeficiency disorder, stomach ulcers History of Any Multi-Drug Resistant Organisms: None Reported Past Surgical History: Breast Surgery, Ear Surgery, Uterine Ablation Additional Past Surgical History / Comment(s): septoplasty, EGD and colonoscopy in 2008 Past Anesthesia/Blood Transfusion Reactions: No Reported Reaction Past Psychological History: Anxiety, Depression Smoking Status: Vaper Past Alcohol Use History: Occasional Past Drug Use History: None Reported - Past Family History Father Additional Family Medical History / Comment(s): Father at age 51 from either myocardial infarction or drug overdose. Mother Additional Family Medical History / Comment(s): Mother is alive at age 61 with history of fibromyalgia. Brother(s) Additional Family Medical History / Comment(s): Patient has one brother with history of alcohol abuse. Patient does not have any sisters. Patient has 2 children with no major medical problems. General Exam - General Exam Comments Initial Comments: Constitutional: NAD, AOX3, Pt has pleasant affect. HEENT: NC/AT, trachea midline, neck supple, no lymphadenopathy. External ears appear normal, without discharge. Mucous membranes moist. Eyes PERRLA, EOM intact. There is no scleral icterus. No pallor noted. Cardiopulmonary: RRR, no murmurs, rubs or gallops, no JVD noted. Lungs CTAB in anterior and posterior eng. No peripheral edema. Abdominal exam: Abdomen soft and non-distended. Abdomen non-tender to palpation in all 4 quadrants. Bowel sounds active in LLQ. No hepatosplenomegaly. No ecchymosis Neuro: CN II-XII intact. No nuchal rigidity. No raccon eyes, no whipple sign, no hemotympanum. No cervical spinal tenderness. MSK: No posterior calf tenderness bilaterally, homans sign negative bilaterally. Posterior tibialis and radial pulse +2 bilaterally. Sensation intact in upper and lower extremities. Full active ROM in upper and lower extremities, 5/5 stregnth. Limitations: no limitations Course Vital Signs 07/13/20 22:17 Temperature 98.1 F Pulse Rate 103 H Respiratory 16 Rate Blood Pressure 108/71 O2 Sat by Pulse 96 Oximetry Medical Decision Making - Medical Decision Making 39-year-old female patient ED for migraine headache. Patient was that she has history of migraine headaches. The migraine headache today behind her eyes. Patient reports she's had some nausea. Denies loss of consciousness vision changes. Denies any new or concerning symptoms are different from her prior headaches. Pt VSS, afebrile. Physical exam negative for acute pathology. He to brain negative for acute process. Of investigations unremarkable. Patient had excellent feeling improved. We'll discharge the patient. Return precautions. Case discussed with Dr. Woods. - Lab Data Result diagrams: 07/13/20 23:28 07/13/20 23:28 Lab Results 07/13/20 07/13/20 Range/Units 23:28 23:28 WBC 5.6 (3.8-10.6) k/uL RBC 3.33 L (3.80-5.40) m/uL Hgb 8.1 L (11.4-16.0) gm/dL Hct 27.4 L (34.0-46.0) % MCV 82.3 (80.0-100.0) fL MCH 24.3 L (25.0-35.0) pg MCHC 29.5 L (31.0-37.0) g/dL RDW 16.4 H (11.5-15.5) % Plt Count 474 H (150-450) k/uL MPV 6.8 Hypochromasia Marked Anisocytosis Slight Sodium 137 (137-145) mmol/L Potassium 4.3 (3.5-5.1) mmol/L Chloride 104 (98-107) mmol/L Carbon Dioxide 26 (22-30) mmol/L Anion Gap 7 mmol/L BUN 22 H (7-17) mg/dL Creatinine 0.96 (0.52-1.04) mg/dL Est GFR (CKD-EPI)AfAm 85 (>60 ml/min/1.73 sqM) Est GFR (CKD-EPI)NonAf 74 (>60 ml/min/1.73 sqM) Glucose 96 (74-99) mg/dL Calcium 9.7 (8.4-10.2) mg/dL Total Bilirubin 0.3 (0.2-1.3) mg/dL AST 26 (14-36) U/L ALT 15 (4-34) U/L Alkaline Phosphatase 71 (38-126) U/L Total Protein 7.4 (6.3-8.2) g/dL Albumin 4.4 (3.5-5.0) g/dL Serum Alcohol <10 mg/dL Disposition Clinical Impression: Headache Disposition: HOME SELF-CARE Condition: Stable Instructions (If sedation given, give patient instructions): Acute Headache (ED) Additional Instructions: Follow up with PCP tomorrow. Return to ED with any worsening symptoms. I have also provided a local neurologist. Is patient prescribed a controlled substance at d/c from ED?: No Referrals: Patricia Gonzalez MD [Primary Care Provider] - 1-2 days Garrick Bridges MD [Medical Doctor] - 1-2 days
[2020-07-14 01:58] LABS: Band Neutrophils % 1 %; Lymphocytes # (M) 2.07 k/uL (1.0-4.8); Monocytes # (M) 0.11 k/uL (0-1.0); Neutrophils % (M) 60 %; Nucleated Red Blood Cells 0 /100 WBC (0-0); Total Cells Counted 100
[2020-07-14 02:00] LABS: Polychromasia Present
[2020-07-14 02:04] VITALS: BP 102/68; PULSE 93; TEMP 98
== END 2020-07-14 02:04 | disposition home or self-care (01) ==
LOC: EC 22:16
DX: G43.909 Migraine, unspecified, not intractable, without status migrainosus (principal); F41.9 Anxiety disorder, unspecified; F32.9 Major depressive disorder, single episode, unspecified; F17.290 Nicotine dependence, other tobacco product, uncomplicated; Z79.82 Long term (current) use of aspirin; Z79.899 Other long term (current) drug therapy; Z88.0 Allergy status to penicillin; Z88.1 Allergy status to other antibiotic agents; Z88.8 Allergy status to other drugs, medicaments and biological substances; Z91.040 Latex allergy status; Z91.048 Other nonmedicinal substance allergy status; Z86.69 Personal history of other diseases of the nervous system and sense organs
CPT/HCPCS: 36415; 80053; 85025; 70450; 99284; 96374; 96375 ×2; 96361; G0480; J1200; J2405; 80320

== ENCOUNTER 2020-07-31 05:19 | Emergency (ER) | payer OTHER ==
[2020-07-31] MEDS ORDERED: HYDROmorphone 1 MG/ML 1 ML SYRINGE IVP STA ×2 (05:46→07:11)
[2020-07-31] MEDS ORDERED: ONDANSETRON 4 MG/2 ML VIAL IVP STA (05:46)
[2020-07-31] MEDS ORDERED: KETOROLAC 15 MG/ML 1 ML VIAL IVP STA (05:46)
[2020-07-31] MEDS ORDERED: SODIUM CHLORIDE 0.9% 1,000 ML IV STA (05:46)
[2020-07-31] MEDS ORDERED: diphenhydrAMINE 50 MG/ML 1 ML VIAL IVP STA (05:46)
--- NOTE | 2020-07-31 05:48 | ED ---
Headache HPI - General Chief Complaint: Headache Stated Complaint: Headache Time Seen by Provider: 07/31/20 05:22 Source: RN notes reviewed, old records reviewed Mode of arrival: ambulatory Limitations: no limitations - History of Present Illness MD Complaint: headache, "migraine" -: hour(s) Onset Description: gradual Location: right, left Severity: moderate Severity scale (1-10): 4 Quality: aching, throbbing Consistency: intermittent Improves With: nothing Worsens With: none Associated Symptoms: nausea Treatments Prior to Arrival: none - Related Data Home Medications Medication Instructions Recorded Confirmed [id number] 3 tab PO DAILY PRN 02/26/20 05/24/20 [Excedrin] Cetirizine HCl [Zyrtec] 10 mg PO DAILY PRN 02/26/20 05/24/20 DULoxetine HCL [Cymbalta] 60 mg PO DAILY 02/26/20 05/24/20 diphenhydrAMINE HCL [Benadryl] 50 mg PO DAILY PRN 02/26/20 05/24/20 Cholecalciferol [Vitamin D3 (25 1,000 unit PO DAILY 05/24/20 05/24/20 Mcg = 1000 Iu)] Folic Acid 1 mg PO DAILY 05/24/20 05/24/20 Thiamine [Vitamin B-1] 100 mg PO DAILY 05/24/20 05/24/20 Previous Rx's Medication Instructions Recorded Pantoprazole Sodium 40 mg PO DAILY 40 Days #40 05/03/20 tablet. Amoxicillin/Potassium Clav 1 tab PO Q12HR 7 Days #14 tab 06/15/20 [Augmentin 875-125 Tablet] Allergies Allergy/AdvReac Type Severity Reaction Status Date / Time adhesive Allergy Rash/Hives Verified 07/31/20 05:24 latex Allergy Rash/Hives Verified 07/31/20 05:24 prochlorperazine Allergy Unknown Verified 07/31/20 05:24 [From Compazine] ciprofloxacin [From Cipro] AdvReac Hallucinati Verified 07/31/20 05:24 ons citalopram [From Celexa] AdvReac Suicidal Verified 07/31/20 05:24 thoughts diazepam [From Valium] AdvReac Hallucinati Verified 07/31/20 05:24 ons/Anxiety fluoxetine [From Prozac] AdvReac Suicidal Verified 07/31/20 05:24 thoughts metoclopramide [From Reglan] AdvReac Hallucinati Verified 07/31/20 05:24 ons/Anxiety paroxetine [From Paxil] AdvReac Suicidal Verified 07/31/20 05:24 thoughts Penicillins AdvReac Nausea & Verified 07/31/20 05:24 Vomiting Review of Systems ROS Statement: Those systems with pertinent positive or pertinent negative responses have been documented in the HPI. ROS Other: All systems not noted in ROS Statement are negative. Past Medical History Past Medical History: Asthma, Fibromyalgia, GERD/Reflux Additional Past Medical History / Comment(s): anemia, migraines, IBS, primary immunodeficiency disorder, stomach ulcers History of Any Multi-Drug Resistant Organisms: None Reported Past Surgical History: Breast Surgery, Ear Surgery, Uterine Ablation Additional Past Surgical History / Comment(s): septoplasty, EGD and colonoscopy in 2008 Past Anesthesia/Blood Transfusion Reactions: No Reported Reaction Past Psychological History: Anxiety, Depression Smoking Status: Vaper Past Alcohol Use History: Occasional Past Drug Use History: None Reported - Past Family History Father Additional Family Medical History / Comment(s): Father at age 51 from either myocardial infarction or drug overdose. Mother Additional Family Medical History / Comment(s): Mother is alive at age 61 with history of fibromyalgia. Brother(s) Additional Family Medical History / Comment(s): Patient has one brother with history of alcohol abuse. Patient does not have any sisters. Patient has 2 children with no major medical problems. General Exam Limitations: no limitations General appearance: alert, in no apparent distress Head exam: Present: atraumatic, normocephalic, normal inspection Eye exam: Present: normal appearance, PERRL, EOMI. Absent: scleral icterus, conjunctival injection, periorbital swelling ENT exam: Present: normal exam, mucous membranes moist Neck exam: Present: normal inspection. Absent: tenderness, meningismus, lymphadenopathy Respiratory exam: Present: normal lung sounds bilaterally. Absent: respiratory distress, wheezes, rales, rhonchi, stridor Cardiovascular Exam: Present: normal rhythm, tachycardia, normal heart sounds. Absent: systolic murmur, diastolic murmur, rubs, gallop, clicks GI/Abdominal exam: Present: soft, normal bowel sounds. Absent: distended, tenderness, guarding, rebound, rigid Extremities exam: Present: normal inspection, full ROM, normal capillary refill. Absent: tenderness, pedal edema, joint swelling, calf tenderness Back exam: Present: normal inspection Neurological exam: Present: alert, oriented X3, CN II-XII intact Psychiatric exam: Present: normal affect, normal mood Skin exam: Present: warm, dry, intact, normal color. Absent: rash Course Vital Signs 07/31/20 07/31/20 07/31/20 05:24 06:26 08:24 Temperature 98.6 F 98.0 F Pulse Rate 107 H 68 Respiratory 18 16 Rate Blood Pressure 122/82 117/80 117/80 O2 Sat by Pulse 100 100 Oximetry Disposition Clinical Impression: Headache, Migraine headache Disposition: HOME SELF-CARE Condition: Good Instructions (If sedation given, give patient instructions): Acute Headache (ED) Is patient prescribed a controlled substance at d/c from ED?: No Referrals: Patricia Gonzalez MD [Primary Care Provider] - 1-2 days
[2020-07-31] MEDS ORDERED: LORazepam 2 MG/ML INJ IV STA (07:11)
[2020-07-31 07:28] VITALS: BP 117/80; PULSE 68; RESP 16; TEMP 98
== END 2020-07-31 08:23 | disposition home or self-care (01) ==
LOC: EC 05:19
DX: G43.909 Migraine, unspecified, not intractable, without status migrainosus (principal); M79.7 Fibromyalgia; K21.9 Gastro-esophageal reflux disease without esophagitis; F41.9 Anxiety disorder, unspecified; F32.9 Major depressive disorder, single episode, unspecified; Z79.899 Other long term (current) drug therapy; Z79.82 Long term (current) use of aspirin; Z91.048 Other nonmedicinal substance allergy status; Z91.040 Latex allergy status; Z88.8 Allergy status to other drugs, medicaments and biological substances; Z88.1 Allergy status to other antibiotic agents; Z88.0 Allergy status to penicillin; F17.290 Nicotine dependence, other tobacco product, uncomplicated
CPT/HCPCS: 99284; 96365; 96375 ×5; 96376; 96361; J2060; J1200; J2405; J2930; J1170; J1885

== ENCOUNTER 2020-08-13 08:20 | Emergency (ER) | payer OTHER ==
[2020-08-13 08:25] VITALS: BP 115/72; PULSE 122; RESP 18; TEMP 99.1
[2020-08-13] MEDS ORDERED: HYDROmorphone 0.5 MG/0.5 ML SYRINGE IVP STA (08:43)
[2020-08-13] MEDS ORDERED: ONDANSETRON 4 MG/2 ML VIAL IVP STA (08:43)
[2020-08-13 09:13] LABS: Anisocytosis Slight; HGB 7.3 gm/dL (11.4-16.0); Hypochromasia Marked; MCH 24.4 pg (25.0-35.0); MCHC 30.5 g/dL (31.0-37.0); MCV 79.9 fL (80.0-100.0); Platelet Count 521 k/uL (150-450); Poikilocytosis Slight; RDW 16.2 % (11.5-15.5); WBC 6.5 k/uL (3.8-10.6)
[2020-08-13] MEDS ORDERED: diphenhydrAMINE 50 MG/ML 1 ML VIAL IVP STA (09:19)
[2020-08-13] MEDS ORDERED: SODIUM CHLORIDE 0.9% 500 ML 500 ML IV ONE (09:19)
[2020-08-13] MEDS ORDERED: HYDROmorphone 1 MG/ML 1 ML SYRINGE IVP STA (09:19)
--- NOTE | 2020-08-13 09:30 | ED ---
Headache HPI - General Chief Complaint: Headache Stated Complaint: Migraine Time Seen by Provider: 08/13/20 08:33 Mode of arrival: ambulatory Limitations: no limitations - History of Present Illness Initial Comments: 39-year-old female history of gastric ulcer, anemia presents emergency room today for headache x 2 days. Patient states she's had increasing headaches. She states that sometimes her migraine medication does not work. Patient states she took her migraine medicine this morning and it did not take her headache has been ongoing for the past two days. Patient admits to associated nausea and vomiting she states this always happens with her headaches. She denies visual changes weakness sensation deficit speech changes facial asymmetry she denies any neck pain and stiffness history of aneurysm. Patient states she does have history of anemia. Denies noting dark stools, denies noting bloody stools. Patient denies additional complaints. Pt has been taking multiple excedrins and motrin at time for the past few days. - Related Data Home Medications Medication Instructions Recorded Confirmed [id number] 3 tab PO DAILY PRN 02/26/20 08/13/20 [Excedrin] Cetirizine HCl [Zyrtec] 10 mg PO DAILY PRN 02/26/20 08/13/20 DULoxetine HCL [Cymbalta] 60 mg PO DAILY 02/26/20 08/13/20 diphenhydrAMINE HCL [Benadryl] 100 mg PO DAILY PRN 02/26/20 08/13/20 Cholecalciferol [Vitamin D3 (25 1,000 unit PO DAILY 05/24/20 08/13/20 Mcg = 1000 Iu)] Butalb/Acetaminophen/Caffeine 1 tab PO BID PRN 08/13/20 08/13/20 [Fioricet 50-325-40] Ibuprofen 1,600 mg PO Q8H PRN 08/13/20 08/13/20 Wellbutrin (Unknown Strength) 1 tab PO DAILY 08/13/20 08/13/20 Previous Rx's Medication Instructions Recorded Pantoprazole Sodium 40 mg PO DAILY 40 Days #40 05/03/20 tablet. Allergies Allergy/AdvReac Type Severity Reaction Status Date / Time adhesive Allergy Rash/Hives Verified 08/13/20 09:43 latex Allergy Rash/Hives Verified 08/13/20 09:43 prochlorperazine Allergy Unknown Verified 08/13/20 09:43 [From Compazine] ciprofloxacin [From Cipro] AdvReac Hallucinati Verified 08/13/20 09:43 ons citalopram [From Celexa] AdvReac Suicidal Verified 08/13/20 09:43 thoughts diazepam [From Valium] AdvReac Hallucinati Verified 08/13/20 09:43 ons/Anxiety fluoxetine [From Prozac] AdvReac Suicidal Verified 08/13/20 09:43 thoughts metoclopramide [From Reglan] AdvReac Hallucinati Verified 08/13/20 09:43 ons/Anxiety paroxetine [From Paxil] AdvReac Suicidal Verified 08/13/20 09:43 thoughts Penicillins AdvReac Nausea & Verified 08/13/20 09:43 Vomiting Review of Systems ROS Statement: Those systems with pertinent positive or pertinent negative responses have been documented in the HPI. ROS Other: All systems not noted in ROS Statement are negative. Past Medical History Past Medical History: Asthma, Fibromyalgia, GERD/Reflux Additional Past Medical History / Comment(s): anemia, migraines, IBS, primary immunodeficiency disorder, stomach ulcers History of Any Multi-Drug Resistant Organisms: None Reported Past Surgical History: Breast Surgery, Ear Surgery, Uterine Ablation Additional Past Surgical History / Comment(s): septoplasty, EGD and colonoscopy in 2008 Past Anesthesia/Blood Transfusion Reactions: No Reported Reaction Past Psychological History: Anxiety, Depression Smoking Status: Vaper Past Alcohol Use History: Occasional Past Drug Use History: None Reported - Past Family History Father Additional Family Medical History / Comment(s): Father at age 51 from eit her myocardial infarction or drug overdose. Mother Additional Family Medical History / Comment(s): Mother is alive at age 61 with history of fibromyalgia. Brother(s) Additional Family Medical History / Comment(s): Patient has one brother with history of alcohol abuse. Patient does not have any sisters. Patient has 2 children with no major medical problems. General Exam - General Exam Comments Initial Comments: General: The patient is awake and alert, in no distress Eye: +3 mm pupils are equal, round and reactive to light, extra-ocular m ovements are intact. No nystagmus. There is normal conjunctiva bilaterally. No signs of icterus. Ears, nose, mouth and throat: There are moist mucous membranes and no oral lesions. Neck: The neck is supple, there is no tenderness or JVD. No nuchal rigidity Cardiovascular: There is a regular rate and rhythm. No murmur, rub or gallop is appreciated. Respiratory: Lungs are clear to auscultation, respirations are non-labored, breath sounds are equal. No wheezes, stridor, rales, or rhonchi. Gastrointestinal: Soft, non-distended, non-tender abdomen without masses or organomegaly noted. There is no rebound or guarding present. : light brown stool per rectum Musculoskeletal: Normal ROM, no tenderness. Strength 5/5 of the UE and LE b/l. Sensation intact of the UE and LE b/l. Radial pulses equal bilaterally 2+. Neurological: A&O x 3. CN II-XII intact, There are no obvious motor or sensory deficits. Coordination intact. Speech is normal. Skin: Skin is warm and dry and no rashes or lesions are noted. Psychiatric: Cooperative, appropriate mood & affect, normal judgment. Limitations: no limitations Course Vital Signs 08/13/20 08:22 Temperature 99.1 F Pulse Rate 122 H Respiratory 18 Rate Blood Pressure 115/72 O2 Sat by Pulse 100 Oximetry - Reevaluation(s) Reevaluation #1: I asked patient about dyspnea, she states she has been very short of breath on exertion which she has experienced when she had to be transfused in the past 08/13/20 10:07 Reevaluation #2: Pt states she must leave to do presents wtih her kids then she will be back for admission. i discussed that she does have risk of , disability. 08/13/20 10:07 Medical Decision Making - Medical Decision Making Hgb 7.3. Hx of NSAID abuse. Pt has history of gastric ulcer. pt HR elevated. patient given protonix. patient states she does not want to admitted at this moment, she states she is going home to open gifts with her family and come back within the hour. i discussed the risk of /possible disability and encourage pt to stay. patient states she will be right back. patient left against medical advice is aware of risks. discussed case with Dr. Hall, - Lab Data Result diagrams: 08/13/20 08:45 08/13/20 08:43 Lab Results 08/13/20 08/13/20 08/13/20 Range/Units 08:43 08:45 10:19 WBC 6.5 (3.8-10.6) k/uL RBC 3.00 L (3.80-5.40) m/uL Hgb 7.3 L (11.4-16.0) gm/dL Hct 24.0 L (34.0-46.0) % MCV 79.9 L (80.0-100.0) fL MCH 24.4 L (25.0-35.0) pg MCHC 30.5 L (31.0-37.0) g/dL RDW 16.2 H (11.5-15.5) % Plt Count 521 H (150-450) k/uL MPV 7.0 Neutrophils % (Manual) 68 % Lymphocytes % (Manual) 26 % Monocytes % (Manual) 3 % Eosinophils % (Manual) 3 % Neutrophils # (Manual) 4.42 (1.3-7.7) k/uL Lymphocytes # (Manual) 1.69 (1.0-4.8) k/uL Monocytes # (Manual) 0.20 (0-1.0) k/uL Eosinophils # (Manual) 0.20 (0-0.7) k/uL Nucleated RBCs 0 (0-0) /100 WBC Manual Slide Review Performed Hypochromasia Marked Poikilocytosis Slight Anisocytosis Slight Stomatocytes Present Sodium 142 (137-145) mmol/L Potassium 4.0 (3.5-5.1) mmol/L Chloride 109 H (98-107) mmol/L Carbon Dioxide 20 L (22-30) mmol/L Anion Gap 13 mmol/L BUN 16 (7-17) mg/dL Creatinine 1.01 (0.52-1.04) mg/dL Est GFR (CKD-EPI)AfAm 80 (>60 ml/min/1.73 sqM) Est GFR (CKD-EPI)NonAf 69 (>60 ml/min/1.73 sqM) Glucose 63 L (74-99) mg/dL Calcium 9.5 (8.4-10.2) mg/dL Total Bilirubin 0.3 (0.2-1.3) mg/dL AST 27 (14-36) U/L ALT 18 (4-34) U/L Alkaline Phosphatase 88 (38-126) U/L Total Protein 7.7 (6.3-8.2) g/dL Albumin 4.4 (3.5-5.0) g/dL Stool Occult Blood Negative (Negative) Disposition Clinical Impression: Migraine, Anemia Disposition: Left Against Medical Advice Condition: Undetermined Is patient prescribed a controlled substance at d/c from ED?: No Referrals: Patricia Gonzalez MD [Primary Care Provider] - 1-2 days Time of Disposition: 10:04
[2020-08-13 09:53] LABS: Lymphocytes # (M) 1.69 k/uL (1.0-4.8); Neutrophils # (M) 4.42 k/uL (1.3-7.7); Neutrophils % (M) 68 %; Nucleated Red Blood Cells 0 /100 WBC (0-0); Total Cells Counted 100
[2020-08-13 09:54] LABS: Albumin 4.4 g/dL (3.5-5.0); Calcium 9.5 mg/dL (8.4-10.2); Total Bilirubin 0.3 mg/dL (0.2-1.3); Total Protein 7.7 g/dL (6.3-8.2)
[2020-08-13 09:54] LABS: Stomatocytes Present
[2020-08-13] MEDS ORDERED: PANTOPRAZOLE 40 MG/10 ML VIAL IVP STA (10:15)
[2020-08-13 10:32] LABS: Prothrombin Time 10.6 sec (9.0-12.0)
== END 2020-08-13 10:34 | disposition left against medical advice (07) ==
LOC: EC 08:20
DX: G43.909 Migraine, unspecified, not intractable, without status migrainosus (principal); D64.9 Anemia, unspecified; F41.9 Anxiety disorder, unspecified; F32.9 Major depressive disorder, single episode, unspecified; M79.7 Fibromyalgia; F17.290 Nicotine dependence, other tobacco product, uncomplicated; Z79.899 Other long term (current) drug therapy; Z86.69 Personal history of other diseases of the nervous system and sense organs; Z88.0 Allergy status to penicillin; Z88.1 Allergy status to other antibiotic agents; Z88.8 Allergy status to other drugs, medicaments and biological substances; Z91.040 Latex allergy status; Z91.048 Other nonmedicinal substance allergy status; Z53.29 Procedure and treatment not carried out because of patient's decision for other reasons
CPT/HCPCS: 36415; 93005; 86900; 86901; 80053; 85025; 85610; 85730; 86850; 82272; 99284; 96374; 96375 ×3; 96376; 96361; J1200; J2405; J1170 ×2; C9113

== ENCOUNTER 2020-08-13 14:06 | Inpatient (IN) | payer OTHER ==
--- NOTE | 2020-08-13 14:28 | ED ---
Recheck HPI - General Chief Complaint: Recheck/Abnormal Lab/Rx Stated Complaint: Revisit Headache Time Seen by Provider: 08/13/20 14:17 Source: patient Mode of arrival: ambulatory Limitations: no limitations - History of Present Illness Initial Comments: 39-year-old female with history of migraines and anemia presenting to the emergency department with a chief complaint of low hemoglobin. Patient states she was in the emergency department earlier today for a migraine headache and was treated for it. States however patient did appear to have a low hemoglobin of 7.3 and she was advised to stay but she signed out AMA because she wanted to open a presents with her children. Patient states now she is back and is seeking full treatment. Also reports taking Excedrin and Motrin for her migraine even though she was advised against that. Patient denies hematuria, hematochezia or melena. Does report some epigastric and left upper quadrant pain. - Related Data Home Medications Medication Instructions Recorded Confirmed [id number] 3 tab PO DAILY PRN 02/26/20 08/13/20 [Excedrin] Cetirizine HCl [Zyrtec] 10 mg PO DAILY PRN 02/26/20 08/13/20 DULoxetine HCL [Cymbalta] 60 mg PO DAILY 02/26/20 08/13/20 diphenhydrAMINE HCL [Benadryl] 100 mg PO DAILY PRN 02/26/20 08/13/20 Cholecalciferol [Vitamin D3 (25 1,000 unit PO DAILY 05/24/20 08/13/20 Mcg = 1000 Iu)] Butalb/Acetaminophen/Caffeine 1 tab PO BID PRN 08/13/20 08/13/20 [Fioricet 50-325-40] Ibuprofen 1,600 mg PO Q8H PRN 08/13/20 08/13/20 Wellbutrin (Unknown Strength) 1 tab PO DAILY 08/13/20 08/13/20 Previous Rx's Medication Instructions Recorded Pantoprazole Sodium 40 mg PO DAILY 40 Days #40 05/03/20 tablet. Allergies Allergy/AdvReac Type Severity Reaction Status Date / Time adhesive Allergy Rash/Hives Verified 08/13/20 14:15 latex Allergy Rash/Hives Verified 08/13/20 14:15 prochlorperazine Allergy Unknown Verified 08/13/20 14:15 [From Compazine] ciprofloxacin [From Cipro] AdvReac Hallucinati Verified 08/13/20 14:15 ons citalopram [From Celexa] AdvReac Suicidal Verified 08/13/20 14:15 thoughts diazepam [From Valium] AdvReac Hallucinati Verified 08/13/20 14:15 ons/Anxiety fluoxetine [From Prozac] AdvReac Suicidal Verified 08/13/20 14:15 thoughts metoclopramide [From Reglan] AdvReac Hallucinati Verified 08/13/20 14:15 ons/Anxiety paroxetine [From Paxil] AdvReac Suicidal Verified 08/13/20 14:15 thoughts Penicillins AdvReac Nausea & Verified 08/13/20 14:15 Vomiting Review of Systems ROS Statement: Those systems with pertinent positive or pertinent negative responses have been documented in the HPI. ROS Other: All systems not noted in ROS Statement are negative. Past Medical History Past Medical History: Asthma, Fibromyalgia, GERD/Reflux Additional Past Medical History / Comment(s): anemia, migraines, IBS, primary immunodeficiency disorder, stomach ulcers History of Any Multi-Drug Resistant Organisms: None Reported Past Surgical History: Breast Surgery, Ear Surgery, Uterine Ablation Additional Past Surgical History / Comment(s): septoplasty, EGD and colonoscopy in 2008 Past Anesthesia/Blood Transfusion Reactions: No Reported Reaction Past Psychological History: Anxiety, Depression Smoking Status: Vaper Past Alcohol Use History: Occasional Past Drug Use History: None Reported - Past Family History Father Additional Family Medical History / Comment(s): Father at age 51 from either myocardial infarction or drug overdose. Mother Additional Family Medical History / Comment(s): Mother is alive at age 61 with history of fibromyalgia. Brother(s) Additional Family Medical History / Comment(s): Patient has one brother with history of alcohol abuse. Patient does not have any sisters. Patient has 2 children with no major medical problems. General Exam Limitations: no limitations General appearance: alert, in no apparent distress Head exam: Present: atraumatic, normocephalic, normal inspection Eye exam: Present: normal appearance (Pale conjunctiva), PERRL, EOMI Pupils: Present: normal accommodation ENT exam: Present: normal exam, normal oropharynx, mucous membranes moist, TM's normal bilaterally, normal external ear exam Neck exam: Present: normal inspection, full ROM. Absent: tenderness Respiratory exam: Present: normal lung sounds bilaterally. Absent: respiratory distress, wheezes, rales, rhonchi, stridor Cardiovascular Exam: Present: regular rate, normal rhythm, normal heart sounds GI/Abdominal exam: Present: soft, distended (Mild epigastric tenderness) Extremities exam: Present: normal inspection, full ROM, normal capillary refill. Absent: tenderness, pedal edema, joint swelling Back exam: Present: normal inspection, full ROM. Absent: tenderness, CVA tenderness (R), CVA tenderness (L) Neurological exam: Present: alert, oriented X3 Psychiatric exam: Present: normal affect, normal mood Skin exam: Present: warm, dry, intact, normal color Course Vital Signs 08/13/20 14:09 Temperature 98 F Pulse Rate 124 H Respiratory 18 Rate Blood Pressure 114/70 O2 Sat by Pulse 100 Oximetry - Reevaluation(s) Reevaluation #1: 08/13/20 14:41 Medical records reviewed Medical Decision Making - Medical Decision Making 39-year-old female with history of anemia and migraines presenting to emergency department for low hemoglobin. On physical examination, patient has pale conjunctiva. Patient had a hemoglobin of 7.3 this morning. Repeat CBC 7.4. Stool occult was negative. Patient blood type is O+. Patient is otherwise well-appearing and resting in bed. Patient will be admitted for further medical management. Case discussed with Dr. Hall. Admitting physician is Dr.Jarad HELM on consult - Lab Data Result diagrams: 08/13/20 14:44 Lab Results 08/13/20 08/13/20 Range/Units 14:44 14:44 WBC 14.5 H (3.8-10.6) k/uL RBC 3.13 L (3.80-5.40) m/uL Hgb 7.4 L (11.4-16.0) gm/dL Hct 25.2 L (34.0-46.0) % MCV 80.4 (80.0-100.0) fL MCH 23.7 L (25.0-35.0) pg MCHC 29.5 L (31.0-37.0) g/dL RDW 16.2 H (11.5-15.5) % Plt Count 530 H (150-450) k/uL MPV 6.7 Neutrophils % 84 % Lymphocytes % 8 % Monocytes % 5 % Eosinophils % 0 % Basophils % 0 % Neutrophils # 12.3 H (1.3-7.7) k/uL Lymphocytes # 1.2 (1.0-4.8) k/uL Monocytes # 0.7 (0-1.0) k/uL Eosinophils # 0.0 (0-0.7) k/uL Basophils # 0.1 (0-0.2) k/uL Hypochromasia Marked Poikilocytosis Slight Anisocytosis Slight Lipase 64 (23-300) U/L Disposition Clinical Impression: Headache, Anemia Disposition: ADMITTED IP TO THIS HOSP Condition: Stable Is patient prescribed a controlled substance at d/c from ED?: No Time of Disposition: 14:43
[2020-08-13] MEDS ORDERED: MORPHINE SULFATE 4 MG/ML SYRINGE IV PRN (14:53)
[2020-08-13] MEDS ORDERED: NALOXONE 0.4 MG/ML 1 ML VIAL IV PRN (14:53)
[2020-08-13 15:04] LABS: Anisocytosis Slight; Basophils # (A) 0.1 k/uL (0-0.2); Basophils % (A) 0 %; Eosinophils % (A) 0 %; HCT 25.2 % (34.0-46.0); HGB 7.4 gm/dL (11.4-16.0); Hypochromasia Marked; Lymphocytes # (A) 1.2 k/uL (1.0-4.8); Lymphocytes % (A) 8 %; MCH 23.7 pg (25.0-35.0); MCHC 29.5 g/dL (31.0-37.0); MCV 80.4 fL (80.0-100.0); Mean Platelet Volume 6.7; Monocytes # (A) 0.7 k/uL (0-1.0); Monocytes % (A) 5 %; Neutrophils # (A) 12.3 k/uL (1.3-7.7); Neutrophils % (A) 84 %; Platelet Count 530 k/uL (150-450); Poikilocytosis Slight; RBC 3.13 m/uL (3.80-5.40); RDW 16.2 % (11.5-15.5); WBC 14.5 k/uL (3.8-10.6)
[2020-08-13] MEDS: SODIUM CHLORIDE 0.9% 1,000 ML IV SCH (15:04)
[2020-08-13] MEDS: ONDANSETRON 4 MG/2 ML VIAL IVP PRN (15:05)
[2020-08-13] MEDS: HYDROmorphone 0.5 MG/0.5 ML SYRINGE IVP PRN ×3 (15:07→23:34)
[2020-08-14] MEDS: ACETAMINOPHEN TAB 325 MG TAB PO PRN (01:53)
[2020-08-14] MEDS: diphenhydrAMINE 50 MG CAP PO PRN ×2 (01:53→08:37)
[2020-08-14] MEDS: SODIUM CHLORIDE 0.9% 1,000 ML IV SCH ×2 (05:28→16:50)
[2020-08-14] MEDS: HYDROmorphone 1 MG/ML 1 ML SYRINGE IVP PRN ×2 (05:28→11:52)
[2020-08-14 06:51] LABS: Anisocytosis Slight; Basophils % (A) 1 %; Eosinophils # (A) 0.1 k/uL (0-0.7); Eosinophils % (A) 3 %; HCT 22.2 % (34.0-46.0); Hypochromasia Marked; Lymphocytes # (A) 1.7 k/uL (1.0-4.8); Lymphocytes % (A) 35 %; MCH 24.1 pg (25.0-35.0); MCHC 29.3 g/dL (31.0-37.0); MCV 82.3 fL (80.0-100.0); Mean Platelet Volume 7.9; Monocytes # (A) 0.3 k/uL (0-1.0); Monocytes % (A) 6 %; Neutrophils # (A) 2.4 k/uL (1.3-7.7); Neutrophils % (A) 51 %; Platelet Count 425 k/uL (150-450); Poikilocytosis Slight; RBC 2.69 m/uL (3.80-5.40); RDW 16.2 % (11.5-15.5); WBC 4.8 k/uL (3.8-10.6)
[2020-08-14 07:12] LABS: HGB 6.5 gm/dL (11.4-16.0)
[2020-08-14] MEDS: DULoxetine HCL 60 MG CAPSULE.DR PO SCH (08:37)
[2020-08-14] MEDS: CHOLECALCIFEROL 1,000 UNIT TAB PO SCH (08:37)
[2020-08-14] MEDS: PANTOPRAZOLE 40 MG TABLET PO SCH (08:37)
[2020-08-14] MEDS ORDERED: WELLBUTRIN PO SCH (09:00)
[2020-08-14] MEDS ORDERED: LORATADINE 10 MG TAB PO PRN (09:00)
[2020-08-14] MEDS: buPROPion XL 150 MG TAB.ER.24H PO SCH (11:48)
[2020-08-14] MEDS: SUCRALFATE 1 GM TAB PO SCH ×3 (11:51→19:38)
--- NOTE | 2020-08-14 13:11 | CONS ---
CONSULTATION DATE OF SERVICE: 08/14/2020 REASON FOR CONSULTATION: Epigastric pain, nausea, vomiting and anemia. HISTORY OF PRESENT ILLNESS: The patient is a 39-year-old white female with history of chronic severe migraines and persistent anemia, admitted to the hospital because of epigastric pain, nausea, vomiting, and anemia. The patient apparently came into the emergency room yesterday and went against medical advice, but she came back last night because of worsening migraines and subsequently admitted to the hospital for further evaluation. The patient has been taking Excedrin and aspirin almost on a daily basis along with Motrin for her migraine headaches. She takes these medications at least 3-4 times a week. At the time of admission to the hospital hemoglobin was 7.44 which subsequently dropped to 6.5 g/dL. She denies any rectal bleeding or melena. She had a similar presentation in February of this year and had an upper endoscopy done by me that revealed 2 antral ulcers, both measuring 1-2 cm in size. She has been on Protonix 40 mg daily since then, but continues to take Excedrin and Motrin on a daily basis. PAST MEDICAL HISTORY: Significant for chronic migraine headaches, anxiety, depression, peptic ulcer disease, asthma, fibromyalgia, gastroesophageal reflux disease. PAST SURGICAL HISTORY: Breast surgery, ear surgery, uterine ablation, septoplasty, EGD, colonoscopy in February of 2020. MEDICATIONS: Medications at home include aspirin, Zyrtec, Cymbalta, Benadryl, vitamin D3, ibuprofen. ALLERGIES: COMPAZINE, CIPRO, CELEXA, VALIUM, PROZAC, REGLAN, PAXIL, PENICILLIN. SOCIAL HISTORY: No smoking. No alcohol use. FAMILY HISTORY: Father had [place]. Mother had fibromyalgia. REVIEW OF SYSTEMS: CARDIOPULMONARY: No chest pain or shortness of breath. : No dysuria or hematuria. MUSCULOSKELETAL: Unremarkable. SKIN: Unremarkable. ENDOCRINE: Unremarkable. PSYCHIATRIC: Unremarkable. NEUROLOGY: Unremarkable. ENT/VISION: Unremarkable. CONSTITUTIONAL: No recent weight loss. No fever, chills, night sweats. PHYSICAL EXAMINATION: She appears comfortable. No apparent distress. VITAL SIGNS: Stable. Blood pressure is 122/86, pulse rate 98 per minute and afebrile. HEENT: Examination unremarkable. Conjunctivae are pink. Sclerae anicteric. Oral cavity no lesions. NECK: No JVD or lymph node enlargement. CHEST: Clear to auscultation. HEART: Regular rate and rhythm. ABDOMEN: Soft. Bowel sounds are positive. Mild tenderness in the epigastric area. EXTREMITIES: No pedal edema. SKIN: No rashes. NEUROLOGIC: Alert and oriented x3. No focal deficits. LABS: WBC 4.8, hemoglobin 6.5, platelets 425. IMPRESSION: 1. Severe microcytic anemia secondary to occult gastrointestinal blood loss probably from recurrent peptic ulcer disease. Patient at present with a hemoglobin of 7.4 dropped to 6.5, and she received one unit of PRBC transfusion today. She had an EGD and colonoscopy in February of 2020 that showed 2 antral ulcers. The patient was on Protonix but she quit taking it a few weeks ago and has been taking Excedrin and Motrin for chronic severe migraine headaches. Most likely dealing with recurrent peptic ulcer disease. 2. History of fibromyalgia. 3. History of severe migraine headaches. 4. Anxiety and depression. RECOMMENDATIONS: 1. Continue Protonix 40 mg q.12 hours. 2. Start on Carafate 1 gram 4 times daily. 3. Transfuse 1 unit of PRBC transfusion. 4. Repeat CBC in the morning. 5. Possible EGD on Sunday. We will follow with you. Thank you for this consultation. MMODL / IJN: [id number] /
--- NOTE | 2020-08-14 13:26 | P.HPIM ---
History of Present Illness H&P Date: 08/13/20 Chief Complaint: Acute blood loss anemia, acute gastrointestinal bleed, recu rrent gastritis This is a 39-year-old female patient of Dr. Gonzalez with a past medical history of a GI bleed in 2008 and earlier in 2019 patient reports is secondary to Excedrin and non-steroidal anti-inflammatories. Patient underwent an EGD and colonoscopy in 2008 and subsequently had endoscopy by Dr. Lynn in [place] also had another one with Dr. Burris in [facility] with no major finding with anything but gastritis and healing ulcer.. She apparently followed up with Dr. Cueva at that time for anemia. She also has past medical history of fibromyalgia, migraine headaches, irritable bowel syndrome, primary immunodeficiency disorder which is been stable with no active medications, mild intermittent asthma, hypothyroidism taking kelp with improvement of her thyroid levels according to the patient. Patient states that she quit smoking 6 months ago at only smoked for about half a year. She has been drinking a fifth a day both for a couple weeks she has cut down to one half to 1. per day. Heavy alcohol use since August 2019. Patient presented to the emergency department at [facility] not feeling well and thinking she might have anemia same way felt when she had a gas trointestinal bleed previously. Her hemoglobin was 7.3 patient was advised to be hospitalized but she refuses at the time she wants to go home to have her kids celebrate [place]. Ended up coming back to [facility] after celebrate [place] with family hemoglobin still 7.3 patient was admitted with gastrointestinal bleed despite her Hemoccult was negative for the time patient is taking humongous amount of ibuprofen and aspirin products to control her headache and lower back pain according to her has not been treated for chronic pain management has known to have history of recurrent migraine not seen urology lately also had recurrent history of lower back pain she treated regularly with Motrin despite recommendation from last gastrointestinal bleed to avoid NSAID products altogether. Review of Systems Review of Systems Constitutional: No fever, no chills, no night sweats. No weight change. Reports weakness, Reportsfatigue Reports lethargy. EENT: No headache. No blurred vision or double vision, no loss of vision. No loss of Hearing, no ringing in the ears, no dizziness. No nasal drainage or congestion. No epistaxis. No sore throat. Lungs: No shortness of breath, cough, no sputum production. No wheezing. Cardiovascular: No chest pain, no lower extremity edema. No palpitations. No paroxysmal nocturnal dyspnea. No orthopnea. No lightheadedness or dizziness. No syncopal episodes. Abdominal: Reports abdominal pain. No nausea, vomiting. No diarrhea. No constipation. No bloody or tarry stools. No loss of appetite. Genitourinary: No dysuria, increased frequency, urgency. No urinary retention. Musculoskeletal: No myalgias. No muscle weakness, no gait dysfunction, no frequent falls. No back pain. No neck pain. Integumentary: No wounds, no lesions. No rash or pruritus. No unusual bruising. No change in hair or nails. Neurologic: No aphasia. No facial droop. No change in mentation. No head injury. No headache. No paralysis. No paresthesia. Psychiatric: No depression. No anxiety. No mood swings. Endocrine: No abnormal blood sugars. No weight change. No excessive sweating or thirst. No cold intolerance. Past Medical History Past Medical History: Asthma, Fibromyalgia, GERD/Reflux Additional Past Medical History / Comment(s): anemia, migraines, IBS, primary immunodeficiency disorder, stomach ulcers History of Any Multi-Drug Resistant Organisms: None Reported Past Surgical History: Breast Surgery, Ear Surgery, Uterine Ablation Additional Past Surgical History / Comment(s): septoplasty, EGD and colonoscopy in 2008 Past Anesthesia/Blood Transfusion Reactions: No Reported Reaction Past Psychological History: Anxiety, Depression Smoking Status: Vaper Past Alcohol Use History: Occasional Past Drug Use History: None Reported - Past Family History Father Additional Family Medical History / Comment(s): Father at age 51 from either myocardial infarction or drug overdose. Mother Additional Family Medical History / Comment(s): Mother is alive at age 61 with history of fibromyalgia. Brother(s) Additional Family Medical History / Comment(s): Patient has one brother with history of alcohol abuse. Patient does not have any sisters. Patient has 2 children with no major medical problems. Medications and Allergies Home Medications Medication Instructions Recorded Confirmed Type [id number] 3 tab PO DAILY PRN 02/26/20 08/13/20 History [Excedrin] Cetirizine HCl [Zyrtec] 10 mg PO DAILY PRN 02/26/20 08/13/20 History DULoxetine HCL [Cymbalta] 60 mg PO DAILY 02/26/20 08/13/20 History diphenhydrAMINE HCL [Benadryl] 100 mg PO DAILY PRN 02/26/20 08/13/20 History Pantoprazole Sodium 40 mg PO DAILY 40 Days #40 05/03/20 08/13/20 Rx tablet. Cholecalciferol [Vitamin D3 (25 1,000 unit PO DAILY 05/24/20 08/13/20 History Mcg = 1000 Iu)] Butalb/Acetaminophen/Caffeine 1 tab PO BID PRN 08/13/20 08/13/20 History [Fioricet 50-325-40] Ibuprofen 1,600 mg PO Q8H PRN 08/13/20 08/13/20 History buPROPion XL [Wellbutrin Xl] 150 mg PO DAILY 08/14/20 08/14/20 History Allergies Allergy/AdvReac Type Severity Reaction Status Date / Time adhesive Allergy Rash/Hives Verified 08/13/20 14:15 latex Allergy Rash/Hives Verified 08/13/20 14:15 prochlorperazine Allergy Unknown Verified 08/13/20 14:15 [From Compazine] ciprofloxacin [From Cipro] AdvReac Hallucinati Verified 08/13/20 14:15 ons citalopram [From Celexa] AdvReac Suicidal Verified 08/13/20 14:15 thoughts diazepam [From Valium] AdvReac Hallucinati Verified 08/13/20 14:15 ons/Anxiety fluoxetine [From Prozac] AdvReac Suicidal Verified 08/13/20 14:15 thoughts metoclopramide [From Reglan] AdvReac Hallucinati Verified 08/13/20 14:15 ons/Anxiety paroxetine [From Paxil] AdvReac Suicidal Verified 08/13/20 14:15 thoughts Penicillins AdvReac Nausea & Verified 08/13/20 14:15 Vomiting Physical Exam Vitals: Vital Signs Temp Pulse Pulse Resp BP BP Pulse Ox 08/13/20 16:09 98.4 F 120 H 18 114/68 95 08/13/20 15:50 98.7 F 98 18 118/74 100 08/13/20 14:09 98 F 124 H 18 114/70 100 Intake and Output 08/13/20 08/13/20 08/13/20 06:59 14:59 22:59 Other: # Voids 2 Weight 63.503 kg 63.503 kg Physical Examination Gen: This is a 39-year-old female. She is resting in bed and appears to be comfortable and in no cute distress. HEENT: Head is atraumatic, normocephalic. Pupils equal, round. Sclerae is anicteric. NECK: Supple. No JVD. No lymphadenopathy. No thyromegaly. LUNGS: Clear to auscultation. No wheezes or rhonchi. No intercostal retractions. HEART: Regular rate and rhythm. No murmur. ABDOMEN: Soft. Bowel sounds are present. No masses. Mild epigastric tenderness. EXTREMITIES: No pedal edema. No calf tenderness. NEUROLOGICAL: Patient is awake, alert and oriented x3. Cranial nerves 2 through 12 are grossly intact. Results CBC & Chem 7: 08/14/20 06:28 Labs: Abnormal Lab Results - Last 24 Hours (Table) 08/13/20 Range/Units 14:44 WBC 14.5 H (3.8-10.6) k/uL RBC 3.13 L (3.80-5.40) m/uL Hgb 7.4 L (11.4-16.0) gm/dL Hct 25.2 L (34.0-46.0) % MCH 23.7 L (25.0-35.0) pg MCHC 29.5 L (31.0-37.0) g/dL RDW 16.2 H (11.5-15.5) % Plt Count 530 H (150-450) k/uL Neutrophils # 12.3 H (1.3-7.7) k/uL Thrombosis Risk Factor Assmnt - DVT/VTE Prophylaxis DVT/VTE Prophylaxis: Mechanical Prophylaxis ordered - Choose All That Apply Each Factor Represents 1 point: Age 41-60 years Thrombosis Risk Factor Assessment Total Risk Factor Score: 1 Thrombosis Risk Factor Assessment Level: Low Risk Assessment and Plan Assessment: Assessment and Plan 1. Gastrointestinal bleed: Most likely secondary to gastritis or gastric ulcer specially secondary to Ansaid, patient will be hospitalized continue CBC every 12 hours we'll consult gastroenterology possible need for EGD continue proton pump inhibitor twice a day IV and will transfuse blood if hemoglobin is below 7. 2. Acute blood loss anemia no need for transfusion at this point because hemoglobin 7.3 to continue to watch hemoglobin if dropped below 7 transfusion be done. 3. History of migraine headaches. Continue Fioricet as needed, Imitrex as needed. No fever now or aspirin no Motrin. 4. Seasonal ALLERGIES. Continue Zyrtec as needed.. 5. Recurrent depression and generalized anxiety disorder. Continue Cymbalta 60 mg daily. 6. Severe back pain: Patient supposed to use Tylenol products as needed along with muscle relaxer but has been using Motrin and heavy dose for it. 7. Questionable of fibromyalgia: Has been seen rheumatology but has not prescribed any medication for it. 8. History of tobacco use. Can use nicotine patch 14 mg daily. 9. History of primary immunodeficiency disorder. Not active at this point patient was seen immunology an extension supervisor for it. 10. Irritable bowel syndrome, stable. 11. Mild intermittent asthma, not active. GI prophylaxis: On Protonix. DVT prophylaxis: Early mobilization and knee-high DARBY hose. CODE STATUS: Full code. Admit patient to inpatient service more than 2 night stay.
--- NOTE | 2020-08-14 13:30 | P.PN ---
Subjective Progress Note Date: 08/14/20 Principal diagnosis: Acute blood loss anemia, acute gastrointestinal bleed, recurrent gastritis This is a 39-year-old female patient of Dr. Gonzalez with a past medical history of a GI bleed in 2008 and earlier in 2019 patient reports is secondary to Excedrin and non-steroidal anti-inflammatories. Patient underwent an EGD and colonoscopy in 2008 and subsequently had endoscopy by Dr. Lynn in [place] also had another one with Dr. Burris in [facility] with no major finding with anything but gastritis and healing ulcer.. She apparently followed up with Dr. Cueva at that time for anemia. She also has past medical history of fibromyalgia, migraine headaches, irritable bowel syndrome, primary immunodeficiency disorder which is been stable with no active medications, mild intermittent asthma, hypothyroidism taking kelp with improvement of her thyroid levels according to the patient. Patient states that she quit smoking 6 months ago at only smoked for about half a year. She has been drinking a fifth a day both for a couple weeks she has cut down to one half to 1. per day. Heavy alcohol use since August 2019. Patient presented to the emergency department at [facility] not feeling well and thinking she might have anemia same way felt when she had a ga strointestinal bleed previously. Her hemoglobin was 7.3 patient was advised to be hospitalized but she refuses at the time she wants to go home to have her kids celebrate [place]. Ended up coming back to [facility] after celebrate [place] with family hemoglobin still 7.3 patient was admitted with gastrointestinal bleed despite her Hemoccult was negative for the time patient is taking humongous amount of ibuprofen and aspirin products to control her headache and lower back pain according to her has not been treated for chronic pain management has known to have history of recurrent migraine not seen urology lately also had recurrent history of lower back pain she treated regularly with Motrin despite recommendation from last gastrointestinal bleed to avoid NSAID products altogether. 08/14: Hemoglobin dropped down significantly will require at least 1 unit of blood transfusion will recheck hemoglobin and can try to keep her hemoglobin above 8 to be less symptomatic. Patient was seen GI and no plan for EGD at this point because last endoscopy showed gastric ulcer from NSAID with gastroenterology believes the same etiology at this point. Had long discussion with the patient about quitting aspirin or any Ansaid completely based on the recurrent bleed from taking those medications repeatedly and had to do scope hospitalization old blood transfusion many times so far óscar ent complain about not finding somebody been able to treat her pain migraine and lower back pain with anything significant can be beneficial more than Motrin. Was told to follow with neurology and also if need to go for chronic pain management and to substitute product like Ultram in a smaller portion for headache without having to be on any active treatment with Opiate FOR any period of time. Objective - Vital Signs Vital signs: Vital Signs Temp 98.1 F 08/14/20 12:36 Pulse 100 08/14/20 12:36 Resp 18 08/14/20 12:36 BP 114/69 08/14/20 12:36 Pulse Ox 98 08/14/20 12:36 Intake & Output 08/13/20 08/14/20 08/14/20 18:59 06:59 18:59 Intake Total 0 Balance 0 Weight 63.503 kg Intake: Blood Product 0 Rc Pheresis As-3 Unit 0 [id number] Other: Voiding Method Toilet # Voids 2 - Exam Review of Systems Constitutional: No fever, no chills, no night sweats. No weight change. Report s weakness, Reportsfatigue Reports lethargy. EENT: No headache. No blurred vision or double vision, no loss of vision. No loss of Hearing, no ringing in the ears, no dizziness. No nasal drainage or congestion. No epistaxis. No sore throat. Lungs: No shortness of breath, cough, no sputum production. No wheezing. Cardiovascular: No chest pain, no lower extremity edema. No palpitations. No paroxysmal nocturnal dyspnea. No orthopnea. No lightheadedness or dizziness. No syncopal episodes. Abdominal: Reports abdominal pain. No nausea, vomiting. No diarrhea. No constipation. No bloody or tarry stools. No loss of appetite. Genitourinary: No dysuria, increased frequency, urgency. No urinary retention. Musculoskeletal: No myalgias. No muscle weakness, no gait dysfunction, no freq uent falls. No back pain. No neck pain. Integumentary: No wounds, no lesions. No rash or pruritus. No unusual bruising. No change in hair or nails. Neurologic: No aphasia. No facial droop. No change in mentation. No head injury. No headache. No paralysis. No paresthesia. Psychiatric: No depression. No anxiety. No mood swings. Endocrine: No abnormal blood sugars. No weight change. No excessive sweating or thirst. No cold intolerance. Physical Exam Vitals: Vital Signs Temp Pulse Pulse Resp BP BP Pulse Ox 08/13/20 16:09 98.4 F 120 H 18 114/68 95 08/13/20 15:50 98.7 F 98 18 118/74 100 08/13/20 14:09 98 F 124 H 18 114/70 100 Intake and Output 08/13/20 08/13/20 08/13/20 06:59 14:59 22:59 Other: # Voids 2 Weight 63.503 kg 63.503 kg Physical Examination Gen: This is a 39-year-old female. She is resting in bed and appears to be comfortable and in no cute distress. HEENT: Head is atraumatic, normocephalic. Pupils equal, round. Sclerae is anicteric. NECK: Supple. No JVD. No lymphadenopathy. No thyromegaly. LUNGS: Clear to auscultation. No wheezes or rhonchi. No intercostal retractions. HEART: Regular rate and rhythm. No murmur. ABDOMEN: Soft. Bowel sounds are present. No masses. Mild epigastric tenderness. EXTREMITIES: No pedal edema. No calf tenderness. NEUROLOGICAL: Patient is awake, alert and oriented x3. Cranial nerves 2 through 12 are grossly intact. - Labs CBC & Chem 7: 08/14/20 06:28 Labs: Abnormal Lab Results - Last 24 Hours (Table) 08/13/20 08/14/20 08/14/20 Range/Units 14:44 06:28 09:22 WBC 14.5 H (3.8-10.6) k/uL RBC 3.13 L 2.69 L (3.80-5.40) m/uL Hgb 7.4 L 6.5 L* (11.4-16.0) gm/dL Hct 25.2 L 22.2 L (34.0-46.0) % MCH 23.7 L 24.1 L (25.0-35.0) pg MCHC 29.5 L 29.3 L (31.0-37.0) g/dL RDW 16.2 H 16.2 H (11.5-15.5) % Plt Count 530 H (150-450) k/uL Neutrophils # 12.3 H (1.3-7.7) k/uL Crossmatch See Detail Assessment and Plan Assessment: Assessment and Plan 1. Gastrointestinal bleed: Most likely secondary to gastritis or gastric ulcer specially secondary to Ansaid, patient will be hospitalized continue CBC every 12 hours we'll consult gastroenterology possible need for EGD continue proton pump inhibitor twice a day IV and will transfuse blood if hemoglobin is below 7. 2. Acute blood loss anemia 2 units of blood transfusion be done today recheck hemoglobin by tomorrow morning. 3. History of migraine headaches. Continue Fioricet as needed, Imitrex as needed. No fever now or aspirin no Motrin. 4. Seasonal ALLERGIES. Continue Zyrtec as needed.. 5. Recurrent depression and generalized anxiety disorder. Continue Cymbalta 60 mg daily. 6. Severe back pain: Patient supposed to use Tylenol products as needed along with muscle relaxer but has been using Motrin and heavy dose for it. 7. Questionable of fibromyalgia: Has been seen rheumatology but has not prescribed any medication for it. 8. History of tobacco use. Can use nicotine patch 14 mg daily. 9. History of primary immunodeficiency disorder. 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 10. Irritable bowel syndrome, stable. 11. Mild intermittent asthma, not active. GI prophylaxis: On Protonix. DVT prophylaxis: Early mobilization and knee-high DARBY hose. CODE STATUS: Full code. Discharge planning: If hemoglobin stable and no further bleed GI still decided not to do any further endoscopy can be discharged home tomorrow or Sunday veda malone
[2020-08-14] MEDS: BUTALB/APAP/CAFF 50-325-40MG TAB PO PRN (19:38)
[2020-08-15] MEDS: HYDROmorphone 0.5 MG/0.5 ML SYRINGE IVP PRN ×6 (00:44→22:57)
[2020-08-15] MEDS: buPROPion XL 150 MG TAB.ER.24H PO SCH (07:29)
[2020-08-15] MEDS: SODIUM CHLORIDE 0.9% 1,000 ML IV SCH ×2 (07:29→22:21)
[2020-08-15] MEDS: CHOLECALCIFEROL 1,000 UNIT TAB PO SCH (07:29)
[2020-08-15] MEDS: PANTOPRAZOLE 40 MG TABLET PO SCH (07:29)
[2020-08-15] MEDS: SUCRALFATE 1 GM TAB PO SCH ×4 (07:29→20:34)
[2020-08-15] MEDS: DULoxetine HCL 60 MG CAPSULE.DR PO SCH (07:29)
[2020-08-15 07:56] LABS: Anisocytosis Slight; HCT 27.7 % (34.0-46.0); Hypochromasia Marked; MCH 26.4 pg (25.0-35.0); MCHC 31.8 g/dL (31.0-37.0); MCV 82.9 fL (80.0-100.0); Mean Platelet Volume 7.2; Platelet Count 414 k/uL (150-450); Poikilocytosis Moderate; RBC 3.34 m/uL (3.80-5.40); RDW 16.2 % (11.5-15.5); WBC 6.6 k/uL (3.8-10.6)
[2020-08-15 08:05] LABS: HGB 8.8 gm/dL (11.4-16.0)
[2020-08-15] MEDS: diphenhydrAMINE 50 MG CAP PO PRN (10:43)
[2020-08-15] MEDS: ONDANSETRON 4 MG/2 ML VIAL IVP PRN ×2 (12:21→19:53)
--- NOTE | 2020-08-15 13:21 | P.PN ---
Subjective Progress Note Date: 08/15/20 Principal diagnosis: Acute blood loss anemia, acute gastrointestinal bleed, recurrent gastritis, migraine headache This is a 39-year-old female patient of Dr. Gonzalez with a past medical history of a GI bleed in 2008 and earlier in 2019 patient reports is secondary to Excedrin and non-steroidal anti-inflammatories. Patient underwent an EGD and colonoscopy in 2008 and subsequently had endoscopy by Dr. Lynn in [place] also had another one with Dr. Burris in [facility] with no major finding with anything but gastritis and healing ulcer.. She apparently followed up with Dr. Cueva at that time for anemia. She also has past medical history of fibromyalgia, migraine headaches, irritable bowel syndrome, primary immunodeficiency disorder which is been stable with no active medications, mild intermittent asthma, hypothyroidism taking kelp with improvement of her thyroid levels according to the patient. Patient states that she quit smoking 6 months ago at only smoked for about half a year. She has been drinking a fifth a day both for a couple weeks she has cut down to one half to 1. per day. Heavy alcohol use since August 2019. Patient presented to the emergency department at [facility] not feeling well and thinking she might have anemia same way felt when she had a gastrointestinal bleed previously. Her hemoglobin was 7.3 patient was advised to be hospitalized but she refuses at the time she wants to go home to have her kids celebrate [place]. Ended up coming back to [facility] after celebrate [place] with family hemoglobin still 7.3 patient was admitted with gastrointestinal bleed despite her Hemoccult was negative for the time patient is taking humongous amount of ibuprofen and aspirin products to control her headache and lower back pain according to her has not been treated for chronic pain management has known to have history of recurrent migraine not seen urology lately also had recurrent history of lower back pain she treated regularly with Motrin despite recommendation from last gastrointestinal bleed to avoid NSAID products altogether. 08/14: Hemoglobin dropped down significantly will require at least 1 unit of blood transfusion will recheck hemoglobin and can try to keep her hemoglobin above 8 to be less symptomatic. Patient was seen GI and no plan for EGD at this point because last endoscopy showed gastric ulcer from NSAID with gastroenterology believes the same etiology at this point. Had long discussion with the patient about quitting aspirin or any Ansaid completely based on the recurrent bleed from taking those medications repeatedly and had to do scope hospitalization old blood transfusion many times so far patient complain about not finding somebody been able to treat her pain migraine and lower back pain with anything significant can be beneficial more than Motrin. Was told to follow with neurology and also if need to go for chronic pain management and to substitute product like Ultram in a smaller portion for headache without having to be on any active treatment with Opiate FOR any period of time. 08/15: Patient will be going for an EGD tomorrow the meanwhile continue PPI IV for further bleeding hemoglobin stable no requirement for any more blood transfusion at this point. Objective - Vital Signs Vital signs: Vital Signs Temp 97.7 F 08/15/20 08:00 Pulse 68 08/15/20 08:00 Resp 16 08/15/20 08:00 BP 112/71 08/15/20 08:00 Pulse Ox 97 08/15/20 08:00 Intake & Output 08/14/20 08/15/20 08/15/20 18:59 06:59 18:59 Intake Total 560 Balance 560 Intake: Blood Product 560 Rc Pheresis 2 As3 Unit 283 [id number] Rc Pheresis As-3 Unit 277 [id number] Other: # Voids 1 2 - Exam Review of Systems Constitutional: No fever, no chills, no night sweats. No weight change. Reports weakness, Reportsfatigue Reports lethargy. EENT: No headache. No blurred vision or double vision, no loss of vision. No loss of Hearing, no ringing in the ears, no dizziness. No nasal drainage or congestion. No epistaxis. No sore throat. Lungs: No shortness of breath, cough, no sputum production. No wheezing. Cardiovascular: No chest pain, no lower extremity edema. No palpitations. No paroxysmal nocturnal dyspnea. No orthopnea. No lightheadedness or dizziness. No syncopal episodes. Abdominal: Reports abdominal pain. No nausea, vomiting. No diarrhea. No constipation. No bloody or tarry stools. No loss of appetite. Genitourinary: No dysuria, increased frequency, urgency. No urinary retention. Musculoskeletal: No myalgias. No muscle weakness, no gait dysfunction, no frequent falls. No back pain. No neck pain. Integumentary: No wounds, no lesions. No rash or pruritus. No unusual bruising. No change in hair or nails. Neurologic: No aphasia. No facial droop. No change in mentation. No head injury. No headache. No paralysis. No paresthesia. Psychiatric: No depression. No anxiety. No mood swings. Endocrine: No abnormal blood sugars. No weight change. No excessive sweating or thirst. No cold intolerance. Physical Exam Vitals: Vital Signs Temp Pulse Pulse Resp BP BP Pulse Ox 08/13/20 16:09 98.4 F 120 H 18 114/68 95 08/13/20 15:50 98.7 F 98 18 118/74 100 08/13/20 14:09 98 F 124 H 18 114/70 100 Intake and Output 08/13/20 08/13/20 08/13/20 06:59 14:59 22:59 Other: # Voids 2 Weight 63.503 kg 63.503 kg Physical Examination Gen: This is a 39-year-old female. She is resting in bed and appears to be comfortable and in no cute distress. HEENT: Head is atraumatic, normocephalic. Pupils equal, round. Sclerae is anicteric. NECK: Supple. No JVD. No lymphadenopathy. No thyromegaly. LUNGS: Clear to auscultation. No wheezes or rhonchi. No intercostal retractions. HEART: Regular rate and rhythm. No murmur. ABDOMEN: Soft. Bowel sounds are present. No masses. Mild epigastric tenderness. EXTREMITIES: No pedal edema. No calf tenderness. NEUROLOGICAL: Patient is awake, alert and oriented x3. Cranial nerves 2 through 12 are grossly intact. - Labs CBC & Chem 7: 08/15/20 07:00 Labs: Abnormal Lab Results - Last 24 Hours (Table) 08/14/20 08/15/20 Range/Units 09:22 07:00 RBC 3.34 L (3.80-5.40) m/uL Hgb 8.8 L D (11.4-16.0) gm/dL Hct 27.7 L (34.0-46.0) % RDW 16.2 H (11.5-15.5) % Crossmatch See Detail Assessment and Plan Assessment: Assessment and Plan 1. Gastrointestinal bleed: Most likely secondary to gastritis or gastric ulcer specially secondary to Ansaid, patient will be hospitalized continue CBC every 12 hours we'll consult gastroenterology possible need for EGD continue proton pump inhibitor twice a day IV and will transfuse blood if hemoglobin is below 7. Will be going for EGD tomorrow 2. Acute blood loss anemia 2 units of blood transfusion be done today recheck hemoglobin by tomorrow morning. 3. History of migraine headaches. Continue Fioricet as needed, Imitrex as needed. No use of any Ansaid 4. Seasonal ALLERGIES. Continue Zyrtec as needed.. 5. Recurrent depression and generalized anxiety disorder. Continue Cymbalta 60 mg daily. 6. Severe back pain: Patient supposed to use Tylenol products as needed along with muscle relaxer but has been using Motrin and heavy dose for it. 7. Questionable of fibromyalgia: Has been seen rheumatology but has not prescribed any medication for it. 8. History of tobacco use. Can use nicotine patch 14 mg daily. 9. History of primary immunodeficiency disorder. 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 10. Irritable bowel syndrome, stable. 11. Mild intermittent asthma, not active. Discharge planning: EGD tomorrow and if she stable she can be discharged home.
--- NOTE | 2020-08-15 18:25 | PN ---
PROGRESS NOTE DATE OF SERVICE: August 15, 2020 Patient is a 39-year-old pleasant white female admitted to the hospital with symptomatic anemia and severe migraine. She dropped hemoglobin to 6.4, received 2 units of PRBC transfusion yesterday. Repeat hemoglobin is 8.8 g/dL. She has been taking Motrin and Excedrin for chronic migraine headaches. Last EGD and colonoscopy in February of 2020 revealed gastric ulcers. She is feeling much better today. Epigastric pain has improved. Nausea and vomiting resolved. PHYSICAL EXAMINATION: Appears comfortable. VITAL SIGNS: Stable. Blood pressure 100/60, pulse 81. Temperature 98.2. HEENT examination unremarkable. Conjunctivae pink. Sclerae anicteric. Oral cavity no lesions. Neck no JVD. No lymph node enlargement. CHEST was clear to auscultation. HEART: Regular rate and rhythm. ABDOMEN: Soft. Bowel sounds are positive. No organomegaly. Extremities: No pedal edema. Skin no rashes. NEUROLOGIC: Alert and oriented x3. No focal deficits. LABS: Hemoglobin 8.8, WBC 6.6, platelets 414. IMPRESSION: 1. Severe symptomatic anemia secondary to occult gastrointestinal blood loss. Clinically no active bleeding. Prior history of peptic ulcer disease. Patient taking Motrin and Excedrin for severe migraine headaches for the last few weeks. Last EGD in February of 2020 showed gastric antral ulcer. 2. Severe migraines. RECOMMENDATIONS: 1. Agree with PRBC transfusion. 2. Continue Protonix 40 mg twice daily. 3. Continue Carafate 1 gram 4 times daily. 4. We will proceed with EGD tomorrow. Discussed with the patient risks, benefits and complications and she is agreeable to it. Thank you for this consultation. MMODL / IJN: [id number] /
[2020-08-15] MEDS: ACETAMINOPHEN TAB 325 MG TAB PO PRN (20:35)
[2020-08-16] MEDS: ONDANSETRON 4 MG/2 ML VIAL IVP PRN ×3 (04:35→18:21)
[2020-08-16] MEDS: HYDROmorphone 0.5 MG/0.5 ML SYRINGE IVP PRN ×3 (04:38→08:24)
[2020-08-16] MEDS: diphenhydrAMINE 50 MG CAP PO PRN (08:17)
[2020-08-16] MEDS ORDERED: SUMAtriptan succinate 6 MG/0.5 ML VIAL SQ STA (08:30)
[2020-08-16 08:49] LABS: Anisocytosis Slight; Basophils % (A) 1 %; Eosinophils # (A) 0.1 k/uL (0-0.7); Eosinophils % (A) 2 %; HGB 9.2 gm/dL (11.4-16.0); Hypochromasia Marked; Lymphocytes # (A) 1.1 k/uL (1.0-4.8); Lymphocytes % (A) 27 %; MCH 25.8 pg (25.0-35.0); MCHC 30.7 g/dL (31.0-37.0); MCV 84.1 fL (80.0-100.0); Mean Platelet Volume 7.7; Monocytes # (A) 0.3 k/uL (0-1.0); Monocytes % (A) 7 %; Neutrophils # (A) 2.4 k/uL (1.3-7.7); Neutrophils % (A) 59 %; Platelet Count 429 k/uL (150-450); Poikilocytosis Moderate; RBC 3.56 m/uL (3.80-5.40); RDW 16.4 % (11.5-15.5)
[2020-08-16] MEDS: HYDROmorphone 1 MG/ML 1 ML SYRINGE IVP PRN (11:27)
[2020-08-16] MEDS ORDERED: IV FLUID CONTINUATION 1,000 ML IV ONE (11:48)
[2020-08-16] MEDS ORDERED: PROPOFOL 10 MG/ML 20 ML VIAL IV ONE (11:52)
--- NOTE | 2020-08-16 12:16 | P.PCN ---
Date of Procedure: 08/16/20 Description of Procedure: BRIEF HISTORY: Patient is a 39-year-old female presenting for severe symptomatic anemia. Patient found to have hemoglobin of 6.4 on presentation of with hemoglobin stable at 9 today is status post transfusion of 2 units of PRBCs. Previously she underwent EGD and colonoscopy in 02/2020 with findings of gastric ulcers.. PROCEDURE PERFORMED: Esophagogastroduodenoscopy with biopsy. PREOPERATIVE DIAGNOSIS: Severe symptomatic anemia, history of gastric ulcers. ESTIMATED BLOOD LOSS: Minimal. IV sedation per anesthesia. PROCEDURE: After informed consent was obtained, the patient was brought into the endoscopy unit. IV sedation was administered by Anesthesia under continuous monitoring. Initially the Olympus GIF-190 video endoscope was inserted into the mouth. Esophagus intubated without any difficulty. It was gradually advanced into the stomach and duodenum and carefully examined. The bulb and the second part of the duodenum appeared normal, with biopsies taken. The scope at this time was withdrawn to the stomach, adequately insufflated with air, and upon careful examination, mucosa of the antrum, body, cardia and the fundus were significant for 2 antral ulcers measuring 3 and 7 mm in size without high-risk stigmata for bleeding which were biopsied. The scope was then withdrawn into the esophagus. The GE junction was located at 34 cm from the incisors, with a small 1 cm hiatal hernia noted. The esophagus appeared normal. There were no erosions or ulcerations seen and the patient tolerated the procedure well. IMPRESSION: 1. 2 nonbleeding antral ulcers without high-risk stigmata for bleeding. 2. Small hiatal hernia. 3. Biopsies of the duodenum and antral ulcers. RECOMMENDATIONS: The findings of this examination were discussed with the patient . Okay to resume diet. Okay to resume medications. Recommend strict NSAID avoidance. Patient should continue on Protonix twice daily with consideration for repeat EGD in 6-8 weeks to check for ulcer healing.
--- NOTE | 2020-08-16 12:29 | P.PN ---
Subjective This is a 39-year-old female patient of Dr. Gonzalez with a past medical history of a GI bleed in 2008 and earlier in 2019 patient reports is secondary to Excedrin and non-steroidal anti-inflammatories. Patient underwent an EGD and colonoscopy in 2008 and subsequently had endoscopy by Dr. Lynn in [place] also had another one with Dr. Burris in [facility] with no major finding with anything but gastritis and healing ulcer.. She apparently followed up with Dr. Cueva at that time for anemia. She also has past medical history of fibromyalgia, migraine headaches, irritable bowel syndrome, primary immunodeficiency disorder which is been stable with no active medications, mild intermittent asthma, hypothyroidism taking kelp with improvement of her thyroid levels according to the patient. Patient states that she quit smoking 6 months ago at only smoked for about half a year. She has been drinking a fifth a day both for a couple weeks she has cut down to one half to 1. per day. Heavy alcohol use since August 2019. Patient presented to the emergency department at [facility] not feeling well and thinking she might have anemia same way felt when she had a gastrointestinal bleed previously. Her hemoglobin was 7.3 patient was advised to be hospitalized but she refuses at the time she wants to go home to have her kids celebrate [place]. Ended up coming back [facility] after celebrate [place] with family hemoglobin still 7.3 patient was admitted with gastrointestinal bleed despite her Hemoccult was negative for the time patient is taking humongous amount of ibuprofen and aspirin products to control her hea dache and lower back pain according to her has not been treated for chronic pain management has known to have history of recurrent migraine not seen urology lately also had recurrent history of lower back pain she treated regularly with Motrin despite recommendation from last gastrointestinal bleed to avoid NSAID products altogether. 08/14: Hemoglobin dropped down significantly will require at least 1 unit of blood transfusion will recheck hemoglobin and can try to keep her hemoglobin above 8 to be less symptomatic. Patient was seen GI and no plan for EGD at this point because last endoscopy showed gastric ulcer from NSAID with gastroenterology believes the same etiology at this point. Had long discussion with the patient about quitting aspirin or any Ansaid completely based on the recurrent bleed from taking those medications repeatedly and had to do scope hospitalization old blood transfusion many times so far patient complain about not finding somebody been able to treat her pain migraine and lower back pain with anything significant can be beneficial more than Motrin. Was told to follow with neurology and also if need to go for chronic pain management and to substitute product like Ultram in a smaller portion for headache without having to be on any active treatment with Opiate FOR any period of time. 08/15: Patient will be going for an EGD tomorrow the meanwhile continue PPI IV for further bleeding hemoglobin stable no requirement for any more blood transfusion at this point. 08/16: Patient evaluated this morning, sitting up in the bed, no acute distress. Patient's hemoglobin stable at 9.2 today after 2 units of PRBCs. Patient underwent EGD today was found to have 2 nonbleeding antral ulcers and small hiatal hernia. Per GIs note ok to resume diet and medications, recommended to continue to avoid NSAIDs and continue on pantoprazole twice a day and repeat EGD in 6-8 weeks. Patient continues to complain of a migraine, was given Imitrex subcu. Objective - Vital Signs Vital signs: Vital Signs Temp 98.2 F 08/16/20 07:33 Pulse 90 08/16/20 07:33 Resp 16 08/16/20 07:33 BP 123/86 08/16/20 07:33 Pulse Ox 96 08/16/20 07:33 Intake & Output 08/15/20 08/16/20 08/16/20 18:59 06:59 18:59 Output Total 100 Balance -100 Output: Emesis 100 Other: Voiding Method Toilet Toilet # Voids 4 2 - Constitutional General appearance: Present: cooperative, no acute distress - EENT Eyes: Present: EOMI, PERRLA, normal appearance ENT: Present: hearing grossly normal, normal oropharynx. Absent: pharyngeal erythema, thrush - Neck Neck: Present: normal ROM. Absent: lymphadenopathy, rigidity, stridor, thyromegaly - Respiratory Respiratory: bilateral: CTA, negative: diminished, dullness, rales, rhonchi, wheezing - Cardiovascular Rhythm: regular Heart sounds: normal: S1, S2 - Gastrointestinal General gastrointestinal: Present: normal bowel sounds, soft. Absent: distended, hepatomegaly, organomegaly, tenderness - Neurologic Neurologic: Present: CNII-XII intact. Absent: focal deficits - Musculoskeletal Musculoskeletal: Present: strength equal bilaterally. Absent: right sided weakness, left sided weakness - Psychiatric Psychiatric: Present: A&O x's 3, appropriate affect, intact judgment & insight - Labs CBC & Chem 7: 08/16/20 08:36 Labs: Abnormal Lab Results - Last 24 Hours (Table) 08/16/20 Range/Units 08:36 RBC 3.56 L (3.80-5.40) m/uL Hgb 9.2 L (11.4-16.0) gm/dL Hct 30.0 L (34.0-46.0) % MCHC 30.7 L (31.0-37.0) g/dL RDW 16.4 H (11.5-15.5) % Assessment and Plan Plan: 1. Gastrointestinal bleed: Underwent EGD today, found to have 2 nonbleeding antral ulcers, will continue on Protonix twice a day and recommended to avoid all NSAIDs 2. Acute blood loss anemia. Status post blood transfusion with 2 units PRBCs, hemoglobin stable at 9.2 3. History of migraine headaches. Continue Fioricet as needed, Imitrex subcu 4. Seasonal ALLERGIES. Continue Zyrtec as needed.. 5. Recurrent depression and generalized anxiety disorder. Continue Cymbalta 60 mg daily. 6. Severe back pain: Patient supposed to use Tylenol products as needed along with muscle relaxer but has been using Motrin and heavy dose for it. 7. Questionable of fibromyalgia: Has been seen rheumatology but has not prescribed any medication for it. 8. History of tobacco use. Can use nicotine patch 14 mg daily. 9. History of primary immunodeficiency disorder. Not active at this point patient was seen immunology an private wealth advisor for it. 10. Irritable bowel syndrome, stable. 11. Mild intermittent asthma, not active. The above impression and plan of care have been discussed and directed by signing physician. Ketty Hi nurse practitioner acting as scribe for signing physician.
[2020-08-16] MEDS: SUCRALFATE 1 GM TAB PO SCH ×4 (12:31→20:47)
[2020-08-16] MEDS: PANTOPRAZOLE 40 MG TABLET PO SCH (12:34)
[2020-08-16] MEDS: CHOLECALCIFEROL 1,000 UNIT TAB PO SCH (12:34)
[2020-08-16] MEDS: DULoxetine HCL 60 MG CAPSULE.DR PO SCH (12:34)
[2020-08-16] MEDS: SODIUM CHLORIDE 0.9% 1,000 ML IV SCH (12:35)
[2020-08-16] MEDS: buPROPion XL 150 MG TAB.ER.24H PO SCH (12:35)
--- NOTE | 2020-08-16 14:02 | P.DS ---
Providers Date of admission: 08/13/20 14:51 Expected date of discharge: 08/16/20 Attending physician: David Murphy Consults: 08/13/20 14:53 Consult Physician Stat Consulting Provider: Zainab Kinney Consult Reason/Comments: Anemia Do you want consulting provider notified?: Yes Primary care physician: Patricia Gonzalez [facility] Course: This is a 39-year-old female patient of Dr. Gonzalez with a past medical history of a GI bleed in 2008 and earlier in 2019 patient reports is secondary to Excedrin and non-steroidal anti-inflammatories. Patient underwent an EGD and colonoscopy in 2008 and subsequently had endoscopy by Dr. Lnyn in [place] also had another one with Dr. Burris in [facility] with no major finding with anything but gastritis and healing ulcer.. She apparently followed up with Dr. Cueva at that time for anemia. She also has past medical history of fibromyalgia, migraine headaches, irritable bowel syndrome, primary immunodeficiency disorder which is been stable with no active medications, mild intermittent asthma, hypothyroidism taking kelp with improvement of her thyroid levels according to the patient. Patient states that she quit smoking 6 months ago at only smoked for about half a year. She has been drinking a fifth a day both for a couple weeks she has cut down to one half to 1. per day. Heavy alcohol use since August 2019. Patient presented to the emergency department at [facility] not feeling well and thinking she might have anemia same way felt when she had a gastrointestinal bleed previously. Her hemoglobin was 7.3 patient was advised to be hospitalized but she refuses at the time she wants to go home to have her kids celebrate [place]. Ended up coming back to [facility] after celebrate [place] with family hemoglobin still 7.3 patient was admitted with gastrointestinal bleed despite her Hemoccult was negative for the time patient is taking humongous amount of ibuprofen and aspirin products to control her head ache and lower back pain according to her has not been treated for chronic pain management has known to have history of recurrent migraine not seen urology lately also had recurrent history of lower back pain she treated regularly with Motrin despite recommendation from last gastrointestinal bleed to avoid NSAID products altogether. 08/14: Hemoglobin dropped down significantly will require at least 1 unit of blood transfusion will recheck hemoglobin and can try to keep her hemoglobin above 8 to be less symptomatic. Patient was seen GI and no plan for EGD at this point because last endoscopy showed gastric ulcer from NSAID with gastroenterology believes the same etiology at this point. Had long discussion with the patient about quitting aspirin or any Ansaid completely based on the recurrent bleed from taking those medications repeatedly and had to do scope hospitalization old blood transfusion many times so far patient complain about not finding somebody been able to treat her pain migraine and lower back pain with anything significant can be beneficial more than Motrin. Was told to follow with neurology and also if need to go for chronic pain management and to substitute product like Ultram in a smaller portion for headache without having to be on any active treatment with Opiate FOR any period of time. 08/15: Patient will be going for an EGD tomorrow the meanwhile continue PPI IV for further bleeding hemoglobin stable no requirement for any more blood transfusion at this point. 08/16: Patient evaluated this morning, sitting up in the bed, no acute distress. Patient's hemoglobin stable at 9.2 today after 2 units of PRBCs. Patient underwent EGD today was found to have 2 nonbleeding antral ulcers and small hiatal hernia. Per GIs note ok to resume diet and medications, recommended to continue to avoid NSAIDs and continue on pantoprazole twice a day and repeat EGD in 6-8 weeks. Patient continues to complain of a migraine, was given Imitrex subcu. Discharge diagnoses: 1. Gastrointestinal bleed: status post EGD, found to have 2 nonbleeding antral ulcers 2. Acute blood loss anemia. Status post blood transfusion with 2 units PRBCs, hemoglobin stable at 9.2 3. History of migraine headaches. 4. Seasonal ALLERGIES. 5. Recurrent depression and generalized anxiety disorder. 6. Severe back pain 7. Questionable of fibromyalgia 8. History of tobacco use. 9. History of primary immunodeficiency disorder. 10. Irritable bowel syndrome, stable. 11. Mild intermittent asthma, not active. The above impression and plan of care have been discussed and directed by signing physician. Ketty Hi nurse practitioner acting as scribe for signing physician. Patient Condition at Discharge: Stable Plan - Discharge Summary New Discharge Prescriptions: No Action diphenhydrAMINE HCL [Benadryl] 100 mg PO DAILY PRN PRN Reason: Migraine Headache [id number] [phone] [Excedrin] 3 tab PO DAILY PRN PRN Reason: Migraine Headache DULoxetine HCL [Cymbalta] 60 mg PO DAILY Cetirizine HCl [Zyrtec] 10 mg PO DAILY PRN PRN Reason: Allergy Symptoms Pantoprazole Sodium 40 mg PO DAILY 40 Days #40 tablet. Cholecalciferol [Vitamin D3 (25 Mcg = 1000 Iu)] 1,000 unit PO DAILY Ibuprofen 1,600 mg PO Q8H PRN PRN Reason: Migraine Headache Butalb/Acetaminophen/Caffeine [Fioricet 50-325-40] 1 tab PO BID PRN PRN Reason: Migraine Headache buPROPion XL [Wellbutrin Xl] 150 mg PO DAILY Discharge Medication List [id number] [phone] [Excedrin] 3 tab PO DAILY PRN 02/26/20 [History] Cetirizine HCl [Zyrtec] 10 mg PO DAILY PRN 02/26/20 [History] DULoxetine HCL [Cymbalta] 60 mg PO DAILY 02/26/20 [History] diphenhydrAMINE HCL [Benadryl] 100 mg PO DAILY PRN 02/26/20 [History] Pantoprazole Sodium 40 mg PO DAILY 40 Days #40 tablet. 05/03/20 [Rx] Cholecalciferol [Vitamin D3 (25 Mcg = 1000 Iu)] 1,000 unit PO DAILY 05/24/20 [History] Butalb/Acetaminophen/Caffeine [Fioricet 50-325-40] 1 tab PO BID PRN 08/13/20 [History] Ibuprofen 1,600 mg PO Q8H PRN 08/13/20 [History] buPROPion XL [Wellbutrin Xl] 150 mg PO DAILY 08/14/20 [History] Follow up Appointment(s)/Referral(s): Patricia Gonzalez MD [Primary Care Provider] - 1-2 days
[2020-08-16] MEDS: Acetaminophen-Codeine 300-30mg TAB PO PRN ×2 (14:49→21:02)
[2020-08-16] MEDS: BUTALB/APAP/CAFF 50-325-40MG TAB PO PRN (18:20)
[2020-08-17] MEDS: SODIUM CHLORIDE 0.9% 1,000 ML IV SCH (00:45)
[2020-08-17] MEDS: Acetaminophen-Codeine 300-30mg TAB PO PRN ×2 (03:00→10:13)
[2020-08-17] MEDS: ONDANSETRON 4 MG/2 ML VIAL IVP PRN (03:00)
[2020-08-17 07:31] VITALS: BP 107/68; PULSE 104; RESP 17; TEMP 99.2
[2020-08-17] MEDS: BUTALB/APAP/CAFF 50-325-40MG TAB PO PRN (07:55)
[2020-08-17] MEDS: PANTOPRAZOLE 40 MG TABLET PO SCH (07:56)
[2020-08-17] MEDS: CHOLECALCIFEROL 1,000 UNIT TAB PO SCH (07:56)
[2020-08-17] MEDS: SUCRALFATE 1 GM TAB PO SCH (07:56)
[2020-08-17] MEDS: DULoxetine HCL 60 MG CAPSULE.DR PO SCH (07:56)
[2020-08-17 08:37] LABS: Anisocytosis Slight; Basophils % (A) 1 %; Eosinophils # (A) 0.1 k/uL (0-0.7); Eosinophils % (A) 3 %; HCT 31.3 % (34.0-46.0); HGB 9.4 gm/dL (11.4-16.0); Hypochromasia Marked; Lymphocytes # (A) 1.6 k/uL (1.0-4.8); Lymphocytes % (A) 33 %; MCH 25.7 pg (25.0-35.0); MCHC 30.2 g/dL (31.0-37.0); MCV 85.1 fL (80.0-100.0); Mean Platelet Volume 7.1; Monocytes # (A) 0.3 k/uL (0-1.0); Monocytes % (A) 6 %; Neutrophils # (A) 2.6 k/uL (1.3-7.7); Neutrophils % (A) 53 %; Platelet Count 461 k/uL (150-450); Poikilocytosis Moderate; RBC 3.67 m/uL (3.80-5.40); RDW 16.8 % (11.5-15.5); WBC 4.8 k/uL (3.8-10.6)
[2020-08-17] MEDS: buPROPion XL 150 MG TAB.ER.24H PO SCH (10:13)
--- NOTE | 2020-08-17 11:28 | P.PN ---
Subjective This is a 39-year-old female patient of Dr. Gonzalez with a past medical history of a GI bleed in 2008 and earlier in 2019 patient reports is secondary to Excedrin and non-steroidal anti-inflammatories. Patient underwent an EGD and colonoscopy in 2008 and subsequently had endoscopy by Dr. Lynn in [place] also had another one with Dr. Burris in [facility] with no major finding with anything but gastritis and healing ulcer.. She apparently followed up with Dr. Cueva at that time for anemia. She also has past medical history of fibromyalgia, migraine headaches, irritable bowel syndrome, primary immunodeficiency disorder which is been stable with no active medications, mild intermittent asthma, hypothyroidism taking kelp with improvement of her thyroid levels according to the patient. Patient states that she quit smoking 6 months ago at only smoked for about half a year. She has been drinking a fifth a day both for a couple weeks she has cut down to one half to 1. per day. Heavy alcohol use since August 2019. Patient presented to the emergency department at [facility] not feeling well and thinking she might have anemia same way felt when she had a gastrointestinal bleed previously. Her hemoglobin was 7.3 patient was advised to be hospitalized but she refuses at the time she wants to go home to have her kids celebrate [place]. Ended up coming back to [facility] after celebrate [place] with family hemoglobin still 7.3 patient was admitted with gastrointestinal bleed despite her Hemoccult was negative for the time patient is taking humongous amount of ibuprofen and aspirin products to control her hea dache and lower back pain according to her has not been treated for chronic pain management has known to have history of recurrent migraine not seen urology lately also had recurrent history of lower back pain she treated regularly with Motrin despite recommendation from last gastrointestinal bleed to avoid NSAID products altogether. 08/14: Hemoglobin dropped down significantly will require at least 1 unit of blood transfusion will recheck hemoglobin and can try to keep her hemoglobin above 8 to be less symptomatic. Patient was seen GI and no plan for EGD at this point because last endoscopy showed gastric ulcer from NSAID with gastroenterology believes the same etiology at this point. Had long discussion with the patient about quitting aspirin or any Ansaid completely based on the recurrent bleed from taking those medications repeatedly and had to do scope hospitalization old blood transfusion many times so far patient complain about not finding somebody been able to treat her pain migraine and lower back pain with anything significant can be beneficial more than Motrin. Was told to follow with neurology and also if need to go for chronic pain management and to substitute product like Ultram in a smaller portion for headache without having to be on any active treatment with Opiate FOR any period of time. 08/15: Patient will be going for an EGD tomorrow the meanwhile continue PPI IV for further bleeding hemoglobin stable no requirement for any more blood transfusion at this point. 08/16: Patient evaluated this morning, sitting up in the bed, no acute distress. Patient's hemoglobin stable at 9.2 today after 2 units of PRBCs. Patient underwent EGD today was found to have 2 nonbleeding antral ulcers and small hiatal hernia. Per GIs note ok to resume diet and medications, recommended to continue to avoid NSAIDs and continue on pantoprazole twice a day and repeat EGD in 6-8 weeks. Patient continues to complain of a migraine, was given Imitrex subcu. 08/17: Discharge was held yesterday due to patient still had a migraine. Dilaudid was discontinued and patient was started on small dose of Tylenol 3 along with Fioricet. She was also given a subcu dose of Imitrex earlier in the day. This morning patient reports migraine has finally subsided and and is r elkin for discharge home. She'll follow-up in the office to discuss migraine management with possible Aimovig or similar agent. She was advised again to avoid all NSAIDs Objective - Vital Signs Vital signs: Vital Signs Temp 99.2 F 08/17/20 07:30 Pulse 104 H 08/17/20 07:30 Resp 17 08/17/20 07:30 BP 107/68 08/17/20 07:30 Pulse Ox 98 08/17/20 07:30 Intake & Output 08/16/20 08/17/20 08/17/20 18:59 06:59 18:59 Intake Total 150 240 Balance 150 240 Intake: IV 150 Oral 240 Other: Voiding Method Toilet Toilet # Voids 2 2 - Constitutional General appearance: Present: cooperative, no acute distress - EENT Eyes: Present: EOMI, PERRLA, normal appearance ENT: Present: hearing grossly normal, normal oropharynx - Respiratory Respiratory: bilateral: CTA, negative: diminished, dullness, rales, rhonchi, wheezing, prolonged expiration, prolonged inspiration - Cardiovascular Rhythm: regular Heart sounds: normal: S1, S2 - Gastrointestinal General gastrointestinal: Present: normal bowel sounds, soft. Absent: distende d, hepatomegaly, organomegaly, tenderness - Neurologic Neurologic: Present: CNII-XII intact, focal deficits - Musculoskeletal Musculoskeletal: Present: generalized weakness, strength equal bilaterally. Absent: right sided weakness, left sided weakness - Psychiatric Psychiatric: Present: A&O x's 3, appropriate affect, intact judgment & insight - Labs CBC & Chem 7: 08/17/20 07:55 Labs: Abnormal Lab Results - Last 24 Hours (Table) 08/17/20 Range/Units 07:55 RBC 3.67 L (3.80-5.40) m/uL Hgb 9.4 L (11.4-16.0) gm/dL Hct 31.3 L (34.0-46.0) % MCHC 30.2 L (31.0-37.0) g/dL RDW 16.8 H (11.5-15.5) % Plt Count 461 H (150-450) k/uL Assessment and Plan Plan: 1. Gastrointestinal bleed: status post EGD, found to have 2 nonbleeding antral ulcers 2. Acute blood loss anemia. Status post blood transfusion with 2 units PRBCs, hemoglobin stable at 9.2 3. History of migraine headaches. 4. Seasonal ALLERGIES. 5. Recurrent depression and generalized anxiety disorder. 6. Severe back pain 7. Questionable of fibromyalgia 8. History of tobacco use. 9. History of primary immunodeficiency disorder. 10. Irritable bowel syndrome, stable. 11. Mild intermittent asthma, not active. The above impression and plan of care have been discussed and directed by signing physician. Ketty Hi nurse practitioner acting as scribe for signing physician.
== END 2020-08-17 11:18 | disposition home or self-care (01) | DRG 378 ==
LOC: EC 14:06 → 4SSUR 14:51
PROVIDERS: ADMIT Internal Medicine Geriatric Medicine; ATTEND Internal Medicine Geriatric Medicine
PROC: 30233N1 Transfusion of Nonautologous Red Blood Cells into Peripheral Vein, Percutaneous Approach (ICD-10-PCS; 2020-08-14)
PROC: 0DB78ZX Excision of Stomach, Pylorus, Via Natural or Artificial Opening Endoscopic, Diagnostic (ICD-10-PCS; principal; 2020-08-16 07:50)
PROC: 0DB98ZX Excision of Duodenum, Via Natural or Artificial Opening Endoscopic, Diagnostic (ICD-10-PCS; principal; 2020-08-16 07:50)
DX: K25.4 Chronic or unspecified gastric ulcer with hemorrhage (principal); D62 Acute posthemorrhagic anemia; F33.9 Major depressive disorder, recurrent, unspecified; D84.89 Other immunodeficiencies; F41.1 Generalized anxiety disorder; G43.909 Migraine, unspecified, not intractable, without status migrainosus; J45.20 Mild intermittent asthma, uncomplicated; K29.70 Gastritis, unspecified, without bleeding; K44.9 Diaphragmatic hernia without obstruction or gangrene; K58.9 Irritable bowel syndrome, unspecified; M79.7 Fibromyalgia; Z79.899 Other long term (current) drug therapy; T39.315A Adverse effect of propionic acid derivatives, initial encounter; Z87.891 Personal history of nicotine dependence; Z82.49 Family history of ischemic heart disease and other diseases of the circulatory system; Z82.69 Family history of other diseases of the musculoskeletal system and connective tissue; M54.5 Low back pain; Z82.3 Family history of stroke; Z88.0 Allergy status to penicillin; Z88.8 Allergy status to other drugs, medicaments and biological substances; Z88.1 Allergy status to other antibiotic agents; Z91.040 Latex allergy status; Z79.1 Long term (current) use of non-steroidal anti-inflammatories (NSAID)
CPT/HCPCS: 36415; 43239; 80053; 82272; 83690; 84703; 85025; 85027; 85610; 85730; 86850; 86900; 86901; 86920; 88305; 88342; 93005; 96361; 96374; 96375; 96376; 99284

== ENCOUNTER → 2020-08-27 | Outpatient (CLI) | payer OTHER ==
[2020-08-27 15:29] LABS: Anisocytosis Slight; Basophils # (A) 0.1 k/uL (0-0.2); Basophils % (A) 1 %; Eosinophils # (A) 0.1 k/uL (0-0.7); Eosinophils % (A) 2 %; HCT 30.6 % (34.0-46.0); HGB 9.2 gm/dL (11.4-16.0); Hypochromasia Marked; Lymphocytes # (A) 2.4 k/uL (1.0-4.8); Lymphocytes % (A) 40 %; MCH 25.3 pg (25.0-35.0); MCHC 30.1 g/dL (31.0-37.0); MCV 84.2 fL (80.0-100.0); Mean Platelet Volume 7.3; Monocytes # (A) 0.5 k/uL (0-1.0); Monocytes % (A) 8 %; Neutrophils # (A) 2.6 k/uL (1.3-7.7); Neutrophils % (A) 45 %; Platelet Count 434 k/uL (150-450); Poikilocytosis Slight; RBC 3.63 m/uL (3.80-5.40); RDW 16.1 % (11.5-15.5); WBC 5.9 k/uL (3.8-10.6)
[2020-08-27 17:07] LABS: Erythrocyte Sedimentation Rate 13 mm/hr (0-20)
[2020-08-27 20:00] LABS: Immunoglobulin E 5.85 IU/mL (0.00-114.00)
[2020-08-27 20:11] LABS: Protein, Total 6.7 g/dL (6.2-8.2)
[2020-08-27 20:29] LABS: ALT 21 U/L (8-44); AST 21 U/L (13-35); African American GFR (CKD) 106.1 (60.0-200.0); Albumin/Globulin Ratio 2.19 (1.60-3.17); Alkaline Phosphatase 89 U/L (41-126); BUN/Creat Ratio 33.75 Ratio (12.00-20.00); C Reactive Protein <0.4 mg/dL (0.0-0.8); Calcium 9.3 mg/dL (8.7-10.3); Carbon Dioxide 23.3 mmol/L (21.6-31.8); Chloride 107 mmol/L (96-109); Globulin 2.1 g/dL (1.6-3.3); Glucose 78 mg/dL (70-110); Non-African American GFR(CKD) 91.6 (60.0-200.0); Potassium 4.5 mmol/L (3.5-5.5); Sodium 141 mmol/L (135-145); Total Bilirubin 0.3 mg/dL (0.3-1.2); Total Protein 6.7 g/dL (6.2-8.2)
[2020-08-27 20:30] LABS: % Iron Saturation 28.84 (12.00-45.00); Creatine Kinase 75 U/L (26-186); Iron 122 ug/dL (50-170); Magnesium 1.7 mg/dL (1.5-2.4); Total Iron Binding Capacity 423 ug/dL (228-460)
[2020-08-27 21:53] LABS: Cyclic Citrull Pep IgG Unit <0.5 U/mL; Cyclic Citrullinated Pep IgG NEGATIVE (NEGATIVE)
[2020-08-30 13:56] LABS: Albumin 3.94 g/dL (3.80-4.90); Gamma Globulin 0.77 g/dL (0.70-1.50)
== END | disposition home or self-care (01) ==
LOC: LABWHC1 14:47
PROVIDERS: ATTEND Family Medicine
DX: J01.01 Acute recurrent maxillary sinusitis (principal); D64.9 Anemia, unspecified; G43.909 Migraine, unspecified, not intractable, without status migrainosus; M26.609 Unspecified temporomandibular joint disorder, unspecified side; K92.2 Gastrointestinal hemorrhage, unspecified; R53.83 Other fatigue
CPT/HCPCS: 36415; 80053; 82164; 82533; 82550; 82607; 82785; 83540; 83550; 83735; 84165; 84439; 84443; 85025; 85652; 86038; 86140; 86200; 86618

== ENCOUNTER 2020-10-30 13:44 | Emergency (ER) | payer OTHER ==
[2020-10-30 14:18] VITALS: TEMP 98.5
[2020-10-30] MEDS ORDERED: MORPHINE SULFATE 2 MG/ML SYRINGE IVP ONE (14:33)
[2020-10-30] MEDS ORDERED: SODIUM CHLORIDE 0.9% 1,000 ML IV STA (14:34)
--- NOTE | 2020-10-30 14:40 | ED ---
SOB HPI - General Chief Complaint: Shortness of Breath Stated Complaint: Covid + Time Seen by Provider: 10/30/20 14:21 Source: patient, RN notes reviewed Mode of arrival: wheelchair Limitations: no limitations - History of Present Illness Initial Comments: Patient is a 39-year-old female that presents to emergency department complaining of increased dyspnea. She was recently informed that she was covert positive today. She noted that she has been having coughing fits and coughing up some mucus and having mucus discharge. She states that she has a headache from coughing fits and would like some pain medication. Patient's voice was raspy and quiet possibly due to the coughing fits and throat irritation. She notes that since the onset of symptoms they have progressively gotten worse, which led her to come in today to get further evaluation and treatment. She denied any chest pain nausea vomiting diarrhea constipation fever fatigue chills weakness numbness tingling loss of sense of taste or smell. - Related Data Home Medications Medication Instructions Recorded Confirmed Cetirizine HCl [Zyrtec] 10 mg PO DAILY PRN 02/26/20 08/13/20 DULoxetine HCL [Cymbalta] 60 mg PO DAILY 02/26/20 08/13/20 diphenhydrAMINE HCL [Benadryl] 100 mg PO DAILY PRN 02/26/20 08/13/20 Cholecalciferol [Vitamin D3 (25 1,000 unit PO DAILY 05/24/20 08/13/20 Mcg = 1000 Iu)] Butalb/Acetaminophen/Caffeine 1 tab PO BID PRN 08/13/20 08/13/20 [Fioricet 50-325-40] buPROPion XL [Wellbutrin XL] 150 mg PO DAILY 08/14/20 08/14/20 Previous Rx's Medication Instructions Recorded Acetaminophen Tab [Tylenol] 650 mg PO Q6HR PRN tab 08/16/20 Pantoprazole Sodium [Protonix] 40 mg PO BID #60 tablet. 08/16/20 Sucralfate [Carafate] 1 gm PO ACHS #60 tab 08/16/20 Allergies Allergy/AdvReac Type Severity Reaction Status Date / Time adhesive Allergy Rash/Hives Verified 10/30/20 14:19 latex Allergy Rash/Hives Verified 10/30/20 14:19 prochlorperazine Allergy Unknown Verified 10/30/20 14:19 [From Compazine] ciprofloxacin [From Cipro] AdvReac Hallucinati Verified 10/30/20 14:19 ons citalopram [From Celexa] AdvReac Suicidal Verified 10/30/20 14:19 thoughts diazepam [From Valium] AdvReac Hallucinati Verified 10/30/20 14:19 ons/Anxiety fluoxetine [From Prozac] AdvReac Suicidal Verified 10/30/20 14:19 thoughts metoclopramide [From Reglan] AdvReac Hallucinati Verified 10/30/20 14:19 ons/Anxiety paroxetine [From Paxil] AdvReac Suicidal Verified 10/30/20 14:19 thoughts Penicillins AdvReac Nausea & Verified 10/30/20 14:19 Vomiting Review of Systems ROS Statement: Those systems with pertinent positive or pertinent negative responses have been documented in the HPI. ROS Other: All systems not noted in ROS Statement are negative. Past Medical History Past Medical History: Asthma, Fibromyalgia, GERD/Reflux Additional Past Medical History / Comment(s): anemia, migraines, IBS, primary immunodeficiency disorder, stomach ulcers , TMJ History of Any Multi-Drug Resistant Organisms: None Reported Past Surgical History: Breast Surgery, Ear Surgery, Uterine Ablation Additional Past Surgical History / Comment(s): septoplasty, EGD and colonoscopy in 2008 Past Anesthesia/Blood Transfusion Reactions: No Reported Reaction Past Psychological History: Anxiety, Bipolar, Depression Smoking Status: Vaper Past Alcohol Use History: Occasional Past Drug Use History: None Reported - Past Family History Father Additional Family Medical History / Comment(s): Father at age 51 from either myocardial infarction or drug overdose. Mother Additional Family Medical History / Comment(s): Mother is alive at age 61 with history of fibromyalgia. Brother(s) Additional Family Medical History / Comment(s): Patient has one brother with history of alcohol abuse. Patient does not have any sisters. Patient has 2 children with no major medical problems. General Exam Limitations: no limitations General appearance: alert, in no apparent distress Head exam: Present: atraumatic, normocephalic, normal inspection Eye exam: Present: normal appearance, PERRL, EOMI. Absent: scleral icterus, conjunctival injection, periorbital swelling ENT exam: Present: normal exam, mucous membranes moist Neck exam: Present: normal inspection. Absent: tenderness, meningismus, lymphadenopathy Respiratory exam: Present: normal lung sounds bilaterally, decreased breath sounds (Right middle lobe). Absent: respiratory distress, wheezes, rales, rhonchi, stridor Cardiovascular Exam: Present: regular rate, normal rhythm, normal heart sounds. Absent: systolic murmur, diastolic murmur, rubs, gallop, clicks GI/Abdominal exam: Present: soft, normal bowel sounds. Absent: distended, tenderness, guarding, rebound, rigid Extremities exam: Present: normal inspection, full ROM, normal capillary refill. Absent: tenderness, pedal edema, joint swelling, calf tenderness Neurological exam: Present: alert, oriented X3, CN II-XII intact Psychiatric exam: Present: normal affect, normal mood Skin exam: Present: warm, dry, intact, normal color. Absent: rash Course Vital Signs 10/30/20 14:14 Temperature 98.5 F Pulse Rate 105 H Respiratory 20 Rate Blood Pressure 94/58 O2 Sat by Pulse 97 Oximetry Medical Decision Making - Medical Decision Making 39-year-old female complaining of dyspnea recently diagnosed with Covid. Labs, chest x-ray, 2 mg of morphine, 1 L normal saline ordered. EKG ordered 20 mEq of potassium ordered to be taken by mouth due to slightly low potassium level of 3.3. 1 g of magnesium ordered due to low magnesium level. Case discussed with Dr. Kiran, decided patient discharged home with conservative management. - Lab Data Result diagrams: 10/30/20 15:08 10/30/20 15:08 Lab Results 10/30/20 10/30/20 10/30/20 Range/Units 15:08 15:08 15:08 WBC 3.2 L (3.8-10.6) k/uL RBC 3.02 L (3.80-5.40) m/uL Hgb 8.1 L (11.4-16.0) gm/dL Hct 25.8 L (34.0-46.0) % MCV 85.7 (80.0-100.0) fL MCH 27.0 (25.0-35.0) pg MCHC 31.5 (31.0-37.0) g/dL RDW 18.5 H (11.5-15.5) % Plt Count 278 (150-450) k/uL MPV 7.5 Neutrophils % 52 % Lymphocytes % 39 % Monocytes % 7 % Eosinophils % 1 % Basophils % 0 % Neutrophils # 1.7 (1.3-7.7) k/uL Lymphocytes # 1.3 (1.0-4.8) k/uL Monocytes # 0.2 (0-1.0) k/uL Eosinophils # 0.0 (0-0.7) k/uL Basophils # 0.0 (0-0.2) k/uL Hypochromasia Marked Poikilocytosis Slight Anisocytosis Slight PT 9.4 (9.0-12.0) sec INR 0.9 (<1.2) APTT 18.5 L (22.0-30.0) sec Sodium 140 (137-145) mmol/L Potassium 3.3 L (3.5-5.1) mmol/L Chloride 109 H (98-107) mmol/L Carbon Dioxide 19 L (22-30) mmol/L Anion Gap 12 mmol/L BUN 13 (7-17) mg/dL Creatinine 0.90 (0.52-1.04) mg/dL Est GFR (CKD-EPI)AfAm >90 (>60 ml/min/1.73 sqM) Est GFR (CKD-EPI)NonAf 80 (>60 ml/min/1.73 sqM) Glucose 78 (74-99) mg/dL Plasma Lactic Acid Domo (0.7-2.0) mmol/L Calcium 9.3 (8.4-10.2) mg/dL Magnesium 1.5 L (1.6-2.3) mg/dL Total Bilirubin 0.3 (0.2-1.3) mg/dL AST 38 H (14-36) U/L ALT 26 (4-34) U/L Alkaline Phosphatase 159 H (38-126) U/L Lactate Dehydrogenase 530 (313-618) U/L C-Reactive Protein 53.3 H (<10.0) mg/L Total Protein 6.7 (6.3-8.2) g/dL Albumin 3.8 (3.5-5.0) g/dL Coronavirus (PCR) (Not Detectd) 10/30/20 10/30/20 Range/Units 15:08 15:16 WBC (3.8-10.6) k/uL RBC (3.80-5.40) m/uL Hgb (11.4-16.0) gm/dL Hct (34.0-46.0) % MCV (80.0-100.0) fL MCH (25.0-35.0) pg MCHC (31.0-37.0) g/dL RDW (11.5-15.5) % Plt Count (150-450) k/uL MPV Neutrophils % % Lymphocytes % % Monocytes % % Eosinophils % % Basophils % % Neutrophils # (1.3-7.7) k/uL Lymphocytes # (1.0-4.8) k/uL Monocytes # (0-1.0) k/uL Eosinophils # (0-0.7) k/uL Basophils # (0-0.2) k/uL Hypochromasia Poikilocytosis Anisocytosis PT (9.0-12.0) sec INR (<1.2) APTT (22.0-30.0) sec Sodium (137-145) mmol/L Potassium (3.5-5.1) mmol/L Chloride (98-107) mmol/L Carbon Dioxide (22-30) mmol/L Anion Gap mmol/L BUN (7-17) mg/dL Creatinine (0.52-1.04) mg/dL Est GFR (CKD-EPI)AfAm (>60 ml/min/1.73 sqM) Est GFR (CKD-EPI)NonAf (>60 ml/min/1.73 sqM) Glucose (74-99) mg/dL Plasma Lactic Acid Domo 1.3 (0.7-2.0) mmol/L Calcium (8.4-10.2) mg/dL Magnesium (1.6-2.3) mg/dL Total Bilirubin (0.2-1.3) mg/dL AST (14-36) U/L ALT (4-34) U/L Alkaline Phosphatase (38-126) U/L Lactate Dehydrogenase (313-618) U/L C-Reactive Protein (<10.0) mg/L Total Protein (6.3-8.2) g/dL Albumin (3.5-5.0) g/dL Coronavirus (PCR) Detected A (Not Detectd) - EKG Data -: EKG Interpreted by De EKG shows normal: sinus rhythm Rate: normal EKG Comments: Ventricular rate 93 bpm, ME interval 130 ms, QRS duration 94 ms QT/QTC 378/469 ms, PRT axes 68/37/87. Normal sinus rhythm, nonspecific ST and T-wave abnormality, prolonged QT, abnormal ECG. - Radiology Data Radiology results: report reviewed, image reviewed Chest x-ray: No active cardiopulmonary disease. Normal heart. Disposition Clinical Impression: COVID-19, Anemia Disposition: HOME SELF-CARE Condition: Stable Instructions (If sedation given, give patient instructions): Coronavirus Disease 2019 (COVID-19) Additional Instructions: Please return to the Emergency Department if symptoms worsen or any other concerns. quarantine per CDC guidelines for 10-14 days. Follow-up with primary care in 2-4 days. Rest, [id number] anti-inflammatories and pain medications for symptomatic. Increase oral fluid intake. Is patient prescribed a controlled substance at d/c from ED?: No Referrals: Patricia Gonzalez MD [Primary Care Provider] - 1-2 days Time of Disposition: 16:24
--- NOTE | 2020-10-30 15:33 | XR ---
EXAMINATION TYPE: XR chest 1V portable DATE OF EXAM: 10/30/2020 COMPARISON: NONE HISTORY: Short of breath TECHNIQUE: Single view FINDINGS: Heart is normal. Lungs are clear of infiltrate. There is no heart failure. There are no hil ar masses. Costophrenic angles are clear. There are chest leads. Bony thorax is intact. IMPRESSION: No active cardiopulmonary disease. Normal heart.
[2020-10-30 15:36] LABS: Anisocytosis Slight; Basophils % (A) 0 %; Eosinophils % (A) 1 %; HCT 25.8 % (34.0-46.0); HGB 8.1 gm/dL (11.4-16.0); Hypochromasia Marked; Lymphocytes # (A) 1.3 k/uL (1.0-4.8); Lymphocytes % (A) 39 %; MCHC 31.5 g/dL (31.0-37.0); MCV 85.7 fL (80.0-100.0); Mean Platelet Volume 7.5; Monocytes # (A) 0.2 k/uL (0-1.0); Monocytes % (A) 7 %; Neutrophils # (A) 1.7 k/uL (1.3-7.7); Neutrophils % (A) 52 %; Platelet Count 278 k/uL (150-450); Poikilocytosis Slight; RBC 3.02 m/uL (3.80-5.40); RDW 18.5 % (11.5-15.5); WBC 3.2 k/uL (3.8-10.6)
[2020-10-30 15:39] LABS: ALT 26 U/L (4-34); AST 38 U/L (14-36); African American GFR (CKD) >90 (>60 ml/min/1.73 sqM); Albumin 3.8 g/dL (3.5-5.0); Alkaline Phosphatase 159 U/L (38-126); Anion Gap 12 mmol/L; Blood Urea Nitrogen 13 mg/dL (7-17); C Reactive Protein 53.3 mg/L (<10.0); Calcium 9.3 mg/dL (8.4-10.2); Carbon Dioxide 19 mmol/L (22-30); Chloride 109 mmol/L (98-107); Glucose 78 mg/dL (74-99); INR 0.9 (<1.2); LDH 530 U/L (313-618); Magnesium 1.5 mg/dL (1.6-2.3); Non-African American GFR(CKD) 80 (>60 ml/min/1.73 sqM); Potassium 3.3 mmol/L (3.5-5.1); Sodium 140 mmol/L (137-145); Total Bilirubin 0.3 mg/dL (0.2-1.3); Total Protein 6.7 g/dL (6.3-8.2)
[2020-10-30 15:40] LABS: Prothrombin Time 9.4 sec (9.0-12.0)
[2020-10-30 15:44] LABS: Partial Thromboplastin Time 18.5 sec (22.0-30.0)
[2020-10-30] MEDS ORDERED: POTASSIUM CHLORIDE ER 20 MEQ TAB.ER PO STA (16:00)
[2020-10-30] MEDS ORDERED: MAGNESIUM SULFATE-D5W PMX 1 GM in DEXTROSE/WATER 1 100ML.BAG IVPB ONE (16:03)
[2020-10-30 17:01] VITALS: BP 94/67; PULSE 86; RESP 18
[2020-10-31 09:28] LABS: Ferritin 16.3 ng/mL (10.0-291.0)
== END 2020-10-30 17:39 | disposition home or self-care (01) ==
LOC: EC 13:44
DX: U07.1 COVID-19 (principal); D64.9 Anemia, unspecified; J45.909 Unspecified asthma, uncomplicated; K21.9 Gastro-esophageal reflux disease without esophagitis; Z88.0 Allergy status to penicillin; F41.9 Anxiety disorder, unspecified; F32.9 Major depressive disorder, single episode, unspecified
CPT/HCPCS: 36415; 93005; 80053; 82728; 83605; 83615; 83735; 85025; 85610; 85730; 86140; 87040; 84145; 87635; 71045; 99285; 96365; 96375; 96361; J2270; J3475

== ENCOUNTER 2020-10-31 14:28 | Emergency (ER) | payer OTHER ==
[2020-10-31] MEDS ORDERED: IPRATROPIUM-ALBUTEROL 3 ML NEB INHALATION STA (14:39)
[2020-10-31] MEDS ORDERED: HYDROmorphone 1 MG/ML 1 ML SYRINGE IM STA (14:40)
[2020-10-31] MEDS ORDERED: ALBUTEROL HFA INHALER INHALATION STA (14:47)
[2020-10-31] MEDS ORDERED: diphenhydrAMINE 50 MG/ML 1 ML VIAL IM STA (14:58)
--- NOTE | 2020-10-31 15:13 | ED ---
SOB HPI - General Chief Complaint: Shortness of Breath Stated Complaint: sob Time Seen by Provider: 10/31/20 14:38 Source: patient, RN notes reviewed Mode of arrival: ambulatory Limitations: no limitations - History of Present Illness Initial Comments: Patient is a 39-year-old female that presents to emergency department again with shortness of breath after testing positive for Covid. She was recently discharged from the ER on 10/30/2020 after labs and chest x-ray came back within normal limits. She states today that she has a postnasal drip that is keeping her up at night, she has a sinus headache, and her chest feels tight. She was informed yesterday that due to her Covid-positive status and upper respiratory tract illness she will have some discomfort with postnasal drip sinus congestion and coughing fits that can cause chest tightness. She presents today seeking pain medication and a cure for Covid. Patient was informed again that viral upper respiratory tract infections just interrupted of course, and that it is never fallen to be sick. She was informed that there is not much to be done for postnasal drip except for decongestions and propping her head up to sleep. She denied any worsening shortness of breath, chest pain headache nausea vomiting diarrhea constipation fever fatigue chills - Related Data Home Medications Medication Instructions Recorded Confirmed Cetirizine HCl [Zyrtec] 10 mg PO DAILY PRN 02/26/20 08/13/20 DULoxetine HCL [Cymbalta] 60 mg PO DAILY 02/26/20 08/13/20 diphenhydrAMINE HCL [Benadryl] 100 mg PO DAILY PRN 02/26/20 08/13/20 Cholecalciferol [Vitamin D3 (25 1,000 unit PO DAILY 05/24/20 08/13/20 Mcg = 1000 Iu)] Butalb/Acetaminophen/Caffeine 1 tab PO BID PRN 08/13/20 08/13/20 [Fioricet 50-325-40] buPROPion XL [Wellbutrin XL] 150 mg PO DAILY 08/14/20 08/14/20 Previous Rx's Medication Instructions Recorded Acetaminophen Tab [Tylenol] 650 mg PO Q6HR PRN tab 08/16/20 Pantoprazole Sodium [Protonix] 40 mg PO BID #60 tablet. 08/16/20 Sucralfate [Carafate] 1 gm PO ACHS #60 tab 08/16/20 Allergies Allergy/AdvReac Type Severity Reaction Status Date / Time adhesive Allergy Rash/Hives Verified 10/31/20 14:36 latex Allergy Rash/Hives Verified 10/31/20 14:36 prochlorperazine Allergy Unknown Verified 10/31/20 14:36 [From Compazine] ciprofloxacin [From Cipro] AdvReac Hallucinati Verified 10/31/20 14:36 ons citalopram [From Celexa] AdvReac Suicidal Verified 10/31/20 14:36 thoughts diazepam [From Valium] AdvReac Hallucinati Verified 10/31/20 14:36 ons/Anxiety fluoxetine [From Prozac] AdvReac Suicidal Verified 10/31/20 14:36 thoughts metoclopramide [From Reglan] AdvReac Hallucinati Verified 10/31/20 14:36 ons/Anxiety paroxetine [From Paxil] AdvReac Suicidal Verified 10/31/20 14:36 thoughts Penicillins AdvReac Nausea & Verified 10/31/20 14:36 Vomiting Review of Systems ROS Statement: Those systems with pertinent positive or pertinent negative responses have been documented in the HPI. ROS Other: All systems not noted in ROS Statement are negative. Past Medical History Past Medical History: Asthma, Fibromyalgia, GERD/Reflux Additional Past Medical History / Comment(s): anemia, migraines, IBS, primary immunodeficiency disorder, stomach ulcers , TMJ History of Any Multi-Drug Resistant Organisms: None Reported Past Surgical History: Breast Surgery, Ear Surgery, Uterine Ablation Additional Past Surgical History / Comment(s): septoplasty, EGD and colonoscopy in 2008 Past Anesthesia/Blood Transfusion Reactions: No Reported Reaction Past Psychological History: Anxiety, Bipolar, Depression Smoking Status: Vaper Past Alcohol Use History: Occasional Past Drug Use History: None Reported - Past Family History Father Additional Family Medical History / Comment(s): Father at age 51 from ei ther myocardial infarction or drug overdose. Mother Additional Family Medical History / Comment(s): Mother is alive at age 61 with history of fibromyalgia. Brother(s) Additional Family Medical History / Comment(s): Patient has one brother with history of alcohol abuse. Patient does not have any sisters. Patient has 2 children with no major medical problems. General Exam Limitations: no limitations General appearance: alert, in no apparent distress Head exam: Present: atraumatic, normocephalic, normal inspection Eye exam: Present: normal appearance, PERRL, EOMI. Absent: scleral icterus, conjunctival injection, periorbital swelling ENT exam: Present: normal exam, mucous membranes moist Neck exam: Present: normal inspection. Absent: tenderness, meningismus, lymp hadenopathy Respiratory exam: Present: normal lung sounds bilaterally. Absent: respiratory distress, wheezes, rales, rhonchi, stridor Cardiovascular Exam: Present: regular rate, normal rhythm, normal heart sounds. Absent: systolic murmur, diastolic murmur, rubs, gallop, clicks GI/Abdominal exam: Present: soft, normal bowel sounds. Absent: distended, tenderness, guarding, rebound, rigid Extremities exam: Present: normal inspection, full ROM, normal capillary refill. Absent: tenderness, pedal edema, joint swelling, calf tenderness Neurological exam: Present: alert, oriented X3, CN II-XII intact Psychiatric exam: Present: normal affect, normal mood Skin exam: Present: warm, dry, intact, normal color. Absent: rash Course Vital Signs 10/31/20 10/31/20 14:29 15:40 Temperature 98.6 F 98.2 F Pulse Rate 95 87 Respiratory 20 18 Rate Blood Pressure 119/82 110/75 O2 Sat by Pulse 99 96 Oximetry Medical Decision Making - Medical Decision Making 39-year-old female who is Covid positive returns to the ER generalized complaints of postnasal drip, cough, upper respiratory tract symptoms. Chest x-ray, 1 mg of Dilaudid, 50 mg Benadryl, albuterol inhaler ordered. Case discussed with Dr. Burgos, patient can discharge home with conservative management. Patient does not meet criteria for monoclonal antibody. - Radiology Data Radiology results: report reviewed, image reviewed Chest x-ray there is new bilateral interstitial pneumonia compared to yesterday. Normal heart. Disposition Clinical Impression: COVID-19, Pneumonia due to COVID-19 virus Disposition: HOME SELF-CARE Condition: Stable Instructions (If sedation given, give patient instructions): Coronavirus Disease 2019 (COVID-19), Upper Respiratory Infection (ED) Additional Instructions: Please return to the Emergency Department if symptoms worsen or any other concerns. Rest, [id number] anti-inflammatories for conservative management aches pains. Can take a decongestant to help with postnasal drip. Follow-up primary care in 1-4 days. Continue to take at home medications as prescribed. Is patient prescribed a controlled substance at d/c from ED?: No Referrals: Patricia Gonzalez MD [Primary Care Provider] - 1-2 days Time of Disposition: 15:45
--- NOTE | 2020-10-31 15:27 | XR ---
EXAMINATION TYPE: XR chest 2V DATE OF EXAM: 10/31/2020 COMPARISON: Yesterday HISTORY: Cough TECHNIQUE: 2 views FINDINGS: Heart and mediastinum appear normal. There is some coarse interstitial infiltrate in the mi d and lower lung eng. There is no obvious heart failure. Bony thorax is intact. There is no defini te pleural effusion. IMPRESSION: There is new bilateral interstitial pneumonia compared to yesterday. Normal heart.
[2020-10-31 15:42] VITALS: BP 110/75; PULSE 87; RESP 18; TEMP 98.2
== END 2020-10-31 16:04 | disposition home or self-care (01) ==
LOC: EC 14:28
DX: U07.1 COVID-19 (principal); J12.82 Pneumonia due to coronavirus disease 2019; M79.7 Fibromyalgia; F41.9 Anxiety disorder, unspecified; F32.9 Major depressive disorder, single episode, unspecified; F17.290 Nicotine dependence, other tobacco product, uncomplicated; Z79.899 Other long term (current) drug therapy; Z91.048 Other nonmedicinal substance allergy status; Z91.040 Latex allergy status; Z88.1 Allergy status to other antibiotic agents; Z88.8 Allergy status to other drugs, medicaments and biological substances; Z88.0 Allergy status to penicillin
CPT/HCPCS: 94640; 71046; 99285; 96372 ×2; J1200; J1170

== ENCOUNTER 2020-11-03 19:26 | Inpatient (IN) | payer OTHER ==
[2020-11-03] MEDS ORDERED: IPRATROPIUM 0.5 MG/2.5 ML NEBU INHALATION STA (19:43)
[2020-11-03] MEDS ORDERED: DEXAMETHASONE SOD PHOSPHATE 10 MG/ML 1 ML VIAL IV STA (19:43)
[2020-11-03] MEDS ORDERED: ALBUTEROL NEBULIZED 2.5 MG/3 ML INHALATION STA (19:43)
[2020-11-03 19:57] LABS: Anisocytosis Slight; Basophils % (A) 0 %; Eosinophils % (A) 0 %; HCT 26.3 % (34.0-46.0); HGB 8.6 gm/dL (11.4-16.0); Hypochromasia Slight; Lymphocytes # (A) 0.6 k/uL (1.0-4.8); Lymphocytes % (A) 6 %; MCH 27.9 pg (25.0-35.0); MCHC 32.8 g/dL (31.0-37.0); MCV 85.2 fL (80.0-100.0); Mean Platelet Volume 7.2; Monocytes # (A) 0.1 k/uL (0-1.0); Monocytes % (A) 1 %; Neutrophils # (A) 8.6 k/uL (1.3-7.7); Neutrophils % (A) 92 %; Platelet Count 284 k/uL (150-450); Poikilocytosis Slight; RBC 3.09 m/uL (3.80-5.40); RDW 18.7 % (11.5-15.5); WBC 9.4 k/uL (3.8-10.6)
--- NOTE | 2020-11-03 19:59 | ED ---
General Adult HPI - General Chief complaint: Shortness of Breath Stated complaint: YIMI, Chest Pain, Cough Source: patient, RN notes reviewed, old records reviewed Mode of arrival: wheelchair Limitations: no limitations - History of Present Illness Initial comments: 39-year-old female presenting with severe respiratory distress, cough and dyspnea history of asthma, recently diagnosed with coronavirus approximately one week ago. Symptoms have significantly worsened over the past 24 hours. She does report fever. History limited by severe respiratory distress. - Related Data Home Medications Medication Instructions Recorded Confirmed Cetirizine HCl [Zyrtec] 10 mg PO DAILY PRN 02/26/20 08/13/20 DULoxetine HCL [Cymbalta] 60 mg PO DAILY 02/26/20 08/13/20 diphenhydrAMINE HCL [Benadryl] 100 mg PO DAILY PRN 02/26/20 08/13/20 Cholecalciferol [Vitamin D3 (25 1,000 unit PO DAILY 05/24/20 08/13/20 Mcg = 1000 Iu)] Butalb/Acetaminophen/Caffeine 1 tab PO BID PRN 08/13/20 08/13/20 [Fioricet 50-325-40] buPROPion XL [Wellbutrin XL] 150 mg PO DAILY 08/14/20 08/14/20 Previous Rx's Medication Instructions Recorded Acetaminophen Tab [Tylenol] 650 mg PO Q6HR PRN tab 08/16/20 Pantoprazole Sodium [Protonix] 40 mg PO BID #60 tablet. 08/16/20 Sucralfate [Carafate] 1 gm PO ACHS #60 tab 08/16/20 Allergies Allergy/AdvReac Type Severity Reaction Status Date / Time adhesive Allergy Rash/Hives Verified 10/31/20 14:36 latex Allergy Rash/Hives Verified 10/31/20 14:36 prochlorperazine Allergy Unknown Verified 10/31/20 14:36 [From Compazine] ciprofloxacin [From Cipro] AdvReac Hallucinati Verified 10/31/20 14:36 ons citalopram [From Celexa] AdvReac Suicidal Verified 10/31/20 14:36 thoughts diazepam [From Valium] AdvReac Hallucinati Verified 10/31/20 14:36 ons/Anxiety fluoxetine [From Prozac] AdvReac Suicidal Verified 10/31/20 14:36 thoughts metoclopramide [From Reglan] AdvReac Hallucinati Verified 10/31/20 14:36 ons/Anxiety paroxetine [From Paxil] AdvReac Suicidal Verified 10/31/20 14:36 thoughts Penicillins AdvReac Nausea & Verified 10/31/20 14:36 Vomiting Review of Systems ROS Statement: Those systems with pertinent positive or pertinent negative responses have been documented in the HPI. ROS Other: All systems not noted in ROS Statement are negative. Past Medical History Past Medical History: Asthma, Fibromyalgia, GERD/Reflux Additional Past Medical History / Comment(s): anemia, migraines, IBS, primary immunodeficiency disorder, stomach ulcers , TMJ History of Any Multi-Drug Resistant Organisms: None Reported Past Surgical History: Breast Surgery, Ear Surgery, Uterine Ablation Additional Past Surgical History / Comment(s): septoplasty, EGD and colonoscopy in 2008, Past Anesthesia/Blood Transfusion Reactions: No Reported Reaction Past Psychological History: Anxiety, Bipolar, Depression Smoking Status: Former smoker, Vaper Past Alcohol Use History: Occasional Past Drug Use History: None Reported - Past Family History Father Additional Family Medical History / Comment(s): Father at age 51 from either myocardial infarction or drug overdose. Mother Additional Family Medical History / Comment(s): Mother is alive at age 61 with h istory of fibromyalgia. Brother(s) Additional Family Medical History / Comment(s): Patient has one brother with history of alcohol abuse. Patient does not have any sisters. Patient has 2 children with no major medical problems. General Exam Limitations: no limitations General appearance: alert, in distress Head exam: Present: atraumatic, normocephalic Eye exam: Present: normal appearance, PERRL ENT exam: Present: mucous membranes dry Neck exam: Present: normal inspection. Absent: tenderness, meningismus Respiratory exam: Present: respiratory distress, wheezes, rhonchi, accessory muscle use, decreased breath sounds Cardiovascular Exam: Present: normal rhythm, tachycardia GI/Abdominal exam: Present: soft. Absent: distended, tenderness, guarding Extremities exam: Present: normal inspection, normal capillary refill. Absent: pedal edema Neurological exam: Present: alert, oriented X3. Absent: motor sensory deficit Psychiatric exam: Present: normal affect, normal mood Skin exam: Present: warm, dry, intact. Absent: cyanosis, diaphoretic Course Vital Signs 11/03/20 11/03/20 11/03/20 19:27 19:56 20:23 Temperature 98.3 F Pulse Rate 102 H 98 100 Respiratory 40 H Rate Blood Pressure 95/64 O2 Sat by Pulse 71 L Oximetry 11/03/20 11/03/20 20:40 21:18 Temperature Pulse Rate 100 90 Respiratory 19 Rate Blood Pressure 98/67 O2 Sat by Pulse 93 L Oximetry EKG Findings - EKG Comments: EKG Findings:: EKG: Normal sinus rhythm, possible left atrial enlargement, T- wave inversion in the precordial leads, no ST segment elevation, rate of 93, MT interval 132, QRS duration 100, QTC 435 Medical Decision Making - Medical Decision Making 39-year-old female presenting with worsening cough and dyspnea history of asthma and recent diagnosis of coronavirus. Patient is in respiratory distress upon arrival. Initial pulse ox is 71 with a high respiratory rate. Patient is given albuterol, Atrovent, IV steroids. Chest x-ray performed which shows a bilateral pneumonia. Patient does have anemia which is somewhat chronic for this patient hemoglobin is 8.6, normal white blood cell count. She has a mild lactic acid 3.1. Potassium is 2.8 which is replaced with both IV and oral potassium. She had a elevated d-dimer, elevated LDH, elevated CRP. CT angiography was performed which is negative for pulmonary embolism but did show significant airspace disease. Consistent with coronavirus pneumonia. - Lab Data Result diagrams: 11/03/20 19:51 11/03/20 19:51 Lab Results 11/03/20 11/03/20 11/03/20 Range/Units 19:51 19:51 19:51 WBC 9.4 (3.8-10.6) k/uL RBC 3.09 L (3.80-5.40) m/uL Hgb 8.6 L (11.4-16.0) gm/dL Hct 26.3 L (34.0-46.0) % MCV 85.2 (80.0-100.0) fL MCH 27.9 (25.0-35.0) pg MCHC 32.8 (31.0-37.0) g/dL RDW 18.7 H (11.5-15.5) % Plt Count 284 (150-450) k/uL MPV 7.2 Neutrophils % 92 % Lymphocytes % 6 % Monocytes % 1 % Eosinophils % 0 % Basophils % 0 % Neutrophils # 8.6 H (1.3-7.7) k/uL Lymphocytes # 0.6 L (1.0-4.8) k/uL Monocytes # 0.1 (0-1.0) k/uL Eosinophils # 0.0 (0-0.7) k/uL Basophils # 0.0 (0-0.2) k/uL Hypochromasia Slight Poikilocytosis Slight Anisocytosis Slight PT 10.2 (9.0-12.0) sec INR 0.9 (<1.2) APTT 23.5 (22.0-30.0) sec D-Dimer 1.06 H (<0.60) mg/L FEU Sodium 135 L (137-145) mmol/L Potassium 2.8 L (3.5-5.1) mmol/L Chloride 102 (98-107) mmol/L Carbon Dioxide 21 L (22-30) mmol/L Anion Gap 12 mmol/L BUN 19 H (7-17) mg/dL Creatinine 0.88 (0.52-1.04) mg/dL Est GFR (CKD-EPI)AfAm >90 (>60 ml/min/1.73 sqM) Est GFR (CKD-EPI)NonAf 82 (>60 ml/min/1.73 sqM) Glucose 92 (74-99) mg/dL Plasma Lactic Acid Domo (0.7-2.0) mmol/L Calcium 8.5 (8.4-10.2) mg/dL Magnesium 1.6 (1.6-2.3) mg/dL Total Bilirubin 0.4 (0.2-1.3) mg/dL AST 71 H (14-36) U/L ALT 24 (4-34) U/L Alkaline Phosphatase 264 H (38-126) U/L Lactate Dehydrogenase 2067 H (313-618) U/L C-Reactive Protein 320.8 H (<10.0) mg/L Total Protein 6.1 L (6.3-8.2) g/dL Albumin 3.2 L (3.5-5.0) g/dL 11/03/20 Range/Units 19:51 WBC (3.8-10.6) k/uL RBC (3.80-5.40) m/uL Hgb (11.4-16.0) gm/dL Hct (34.0-46.0) % MCV (80.0-100.0) fL MCH (25.0-35.0) pg MCHC (31.0-37.0) g/dL RDW (11.5-15.5) % Plt Count (150-450) k/uL MPV Neutrophils % % Lymphocytes % % Monocytes % % Eosinophils % % Basophils % % Neutrophils # (1.3-7.7) k/uL Lymphocytes # (1.0-4.8) k/uL Monocytes # (0-1.0) k/uL Eosinophils # (0-0.7) k/uL Basophils # (0-0.2) k/uL Hypochromasia Poikilocytosis Anisocytosis PT (9.0-12.0) sec INR (<1.2) APTT (22.0-30.0) sec D-Dimer (<0.60) mg/L FEU Sodium (137-145) mmol/L Potassium (3.5-5.1) mmol/L Chloride (98-107) mmol/L Carbon Dioxide (22-30) mmol/L Anion Gap mmol/L BUN (7-17) mg/dL Creatinine (0.52-1.04) mg/dL Est GFR (CKD-EPI)AfAm (>60 ml/min/1.73 sqM) Est GFR (CKD-EPI)NonAf (>60 ml/min/1.73 sqM) Glucose (74-99) mg/dL Plasma Lactic Acid Domo 3.1 H* (0.7-2.0) mmol/L Calcium (8.4-10.2) mg/dL Magnesium (1.6-2.3) mg/dL Total Bilirubin (0.2-1.3) mg/dL AST (14-36) U/L ALT (4-34) U/L Alkaline Phosphatase (38-126) U/L Lactate Dehydrogenase (313-618) U/L C-Reactive Protein (<10.0) mg/L Total Protein (6.3-8.2) g/dL Albumin (3.5-5.0) g/dL Critical Care Time Critical Care Time: Yes Total Critical Care Time: 35 Disposition Clinical Impression: Pneumonia due to COVID-19 virus, Asthma with acute exacerbation Disposition: ADMITTED IP TO THIS HOSP Condition: Serious Is patient prescribed a controlled substance at d/c from ED?: No Referrals: Patricia Gonzalez MD [Primary Care Provider] - 1-2 days Decision to Admit Reason: Admit from EC Decision Date: 11/03/20 Decision Time: 22:10
[2020-11-03 20:09] LABS: ALT 24 U/L (4-34); AST 71 U/L (14-36); African American GFR (CKD) >90 (>60 ml/min/1.73 sqM); Albumin 3.2 g/dL (3.5-5.0); Alkaline Phosphatase 264 U/L (38-126); Anion Gap 12 mmol/L; Blood Urea Nitrogen 19 mg/dL (7-17); Calcium 8.5 mg/dL (8.4-10.2); Carbon Dioxide 21 mmol/L (22-30); Chloride 102 mmol/L (98-107); Glucose 92 mg/dL (74-99); Magnesium 1.6 mg/dL (1.6-2.3); Non-African American GFR(CKD) 82 (>60 ml/min/1.73 sqM); Potassium 2.8 mmol/L (3.5-5.1); Sodium 135 mmol/L (137-145); Total Bilirubin 0.4 mg/dL (0.2-1.3); Total Protein 6.1 g/dL (6.3-8.2)
--- NOTE | 2020-11-03 20:09 | XR ---
EXAMINATION TYPE: XR chest 1V portable DATE OF EXAM: 11/03/2020 COMPARISON: 10/31/2020 HISTORY: Cough. Pneumonia. TECHNIQUE: Single view FINDINGS: There is some diffuse pulmonary interstitial pneumonia. Heart size is fairly normal. Costop hrenic angles are clear. There are is no definite hilar mass. There are chest leads. IMPRESSION: Pulmonary interstitial pneumonia is worse than recent exam. There is also some airspace c omponent.
[2020-11-03 20:13] LABS: LDH 2067 U/L (313-618)
[2020-11-03 20:18] LABS: INR 0.9 (<1.2); Partial Thromboplastin Time 23.5 sec (22.0-30.0); Prothrombin Time 10.2 sec (9.0-12.0)
[2020-11-03 20:19] LABS: D-Dimer 1.06 mg/L FEU (<0.60)
[2020-11-03] MEDS ORDERED: POTASSIUM CHLORIDE ER 20 MEQ TAB.ER PO STA (20:46)
[2020-11-03 20:52] LABS: C Reactive Protein 320.8 mg/L (<10.0)
[2020-11-03] MEDS ORDERED: HYDROmorphone 0.5 MG/0.5 ML SYRINGE IVP STA (21:18)
[2020-11-03] MEDS: POTASSIUM CHLORIDE 10 MEQ in WATER FOR INJECTION 1 100ML.BAG IVPB SCH ×2 (21:23→23:30)
--- NOTE | 2020-11-03 22:01 | CT ---
EXAMINATION TYPE: CT angio chest DATE OF EXAM: 11/03/2020 COMPARISON: None HISTORY: Elevated d-dimer, Covid +. Hx asthma CT DLP: 210.3 mGycm Automated exposure control for dose reduction was used. CONTRAST: Performed with IV Contrast, patient injected with 100 mL of Isovue 370. There are 3-D post processed images. There is moderate bilateral extensive groundglass interstitial pulmonary infiltrate. There is coalesc ent density in the lateral right midlung and also lateral right upper lobe. Thoracic aorta is intact. There is no aneurysm or dissection. There is normal contrast opacification of the pulmonary arteries. There are no filling defects. Upper abdominal soft tissues are intact. Ple ural effusion or pneumothorax. Thoracic spine is intact. There is no compression fracture. The sternum is intact. IMPRESSION: No evidence of pulmonary embolism. Severe pulmonary interstitial and airspace edema.
[2020-11-03] MEDS ORDERED: IPRATROPIUM-ALBUTEROL 3 ML NEB INHALATION PRN (22:02)
[2020-11-03] MEDS ORDERED: ALBUTEROL NEBULIZED 2.5 MG/3 ML INHALATION PRN (22:04)
[2020-11-03] MEDS ORDERED: diphenhydrAMINE 50 MG/ML 1 ML VIAL IVP PRN (23:28)
[2020-11-03] MEDS ORDERED: diphenhydrAMINE 50 MG/ML 1 ML VIAL IVP STA (23:28)
[2020-11-03] MEDS ORDERED: HYDROmorphone 1 MG/ML 1 ML SYRINGE IVP STA (23:28)
[2020-11-03] MEDS ORDERED: SODIUM CHLORIDE 0.9% 1,000 ML IV ONE (23:28)
[2020-11-03] MEDS: SODIUM CHLORIDE 0.9% 1,000 ML IV SCH (23:29)
[2020-11-04] MEDS ORDERED: POTASSIUM BICARBONATE/CIT AC 20 MEQ TABLET.EFF PO ONE
[2020-11-04] MEDS: methylPREDNISolone SOD SUCCI 125 MG/2 ML VIAL IV SCH ×4 (00:11→17:06)
[2020-11-04] MEDS: POTASSIUM CHLORIDE 10 MEQ in WATER FOR INJECTION 1 100ML.BAG IVPB SCH ×2 (02:40→03:44)
[2020-11-04] MEDS ORDERED: SODIUM CHLORIDE 0.9% 1,000 ML IV ONE (02:53)
[2020-11-04] MEDS ORDERED: MORPHINE SULFATE 4 MG/ML SYRINGE IVP STA (02:53)
[2020-11-04] MEDS: HYDROmorphone 1 MG/ML 1 ML SYRINGE IVP PRN ×5 (03:01→21:35)
[2020-11-04 07:42] LABS: Ferritin 291.4 ng/mL (10.0-291.0)
[2020-11-04] MEDS: ALBUTEROL HFA INHALER INHALATION PRN ×2 (07:47→19:20)
[2020-11-04] MEDS ORDERED: IPRATROPIUM-ALBUTEROL 3 ML NEB INHALATION SCH (08:00)
[2020-11-04] MEDS ORDERED: TOCILIZUMAB 400 MG in SODIUM CHLORIDE 0.9% 80 ML IV ONE (08:13)
[2020-11-04] MEDS: PANTOPRAZOLE 40 MG TABLET PO SCH (09:26)
[2020-11-04] MEDS ORDERED: TOCILIZUMAB IV ONE ×2 (10:00→22:00)
[2020-11-04] MEDS ORDERED: SODIUM CHLORIDE 0.9% IV ONE ×2 (10:00→22:00)
[2020-11-04 10:19] LABS: Glucose,Whole Blood 129 mg/dL (75-99)
--- NOTE | 2020-11-04 11:29 | P.CNPUL ---
History of Present Illness Consult date: 11/04/20 Requesting physician: David Murphy Reason for consult: dyspnea, abnormal CXR/CT Chief complaint: Shortness of breath, cough History of present illness: This is a very pleasant 39-year-old female patient with a known history of GI bleeding with 2 nonbleeding antral ulcers per EGD, migraines, anxie ty/depression, severe back pain, fibromyalgia, primary immunodeficiency disorder, irritable bowel syndrome, tobacco dependence, mild intermittent chronic bronchial asthma maintained on Advair. Presently 2 weeks ago she developed increasing shortness of breath cough congestion chills fever. She sub sequently tested positive for CoVID 19 on 10/30/2020. Her shortness of breath continued to worsen she presented here to the emergency room last evening. Chest x-ray shows bilateral patchy infiltrates consistent with CoVID pneumonia as does CTA of the chest. No evidence of pulmonary embolism. She is seen today in consultation in the emergency room. She is currently sitting up at the bedside. She is quite hoarse, quite dyspneic on minimal exertion and conversation. Requiring 15 L high flow nasal cannula with nonrebreather mask to maintain O2 saturations in the 90s. White count 9.4. Hemoglobin 8.6. Platelets 284. Lymphocytes 0.6. D-dimer 1.06. Sodium 135. Potassium 4.0. Creatinine 0.88. Glucose 159. LDH 2067, C-reactive protein 320. Review of Systems REVIEW OF SYSTEMS: CONSTITUTIONAL: Denies any recent significant weight loss or weight gain. EYES: Denies change in vision. EARS, NOSE, MOUTH, THROAT: Positive for hoarseness, headaches. CARDIOVASCULAR: Denies chest pain, palpitations or syncopal episodes. RESPIRATORY: Positive for shortness of breath, cough, congestion no hemoptysis. GASTROINTESTINAL: Denies change in appetite, denies abdominal pain GENITOURINARY: Denies hematuria, denies infections. MUSKULOSKELETAL: Denies pain, denies swelling. INTEGUMENTARY: Denies rash, denies eczema. NEUROLOGICAL: Denies recent memory loss, no recent seizure activity. PSYCHIATRIC: Denies anxiety, denies depression. HEMATOLOGIC/LYMPHATIC: Denies anemia, denies enlarged lymph nodes. Past Medical History Past Medical History: Asthma, Fibromyalgia, GERD/Reflux, GI Bleed Additional Past Medical History / Comment(s): Pt tested covid + on 10/30/20 at [facility]. Other hx: Primary immunodeficiency, antral ulcers, GI bleed associated with excedrin/noninflammatory medication use, anemia, IBS, migraines, back pain, TMJ, seasonal allergies. History of Any Multi-Drug Resistant Organisms: None Reported Past Surgical History: Breast Surgery, Ear Surgery, Uterine Ablation Additional Past Surgical History / Comment(s): EGDs, colonoscopies, bilateral breast augmentation, septoplasty, L ear trauma/reattached. Past Anesthesia/Blood Transfusion Reactions: No Reported Reaction, Motion Sickn ess Additional Past Anesthesia/Blood Transfusion Reaction / Comment(s): Pt has received blood in past without reaction. Smoking Status: Former smoker, Vaper - Past Family History Father Additional Family Medical History / Comment(s): Father at age 51 from accidental drug overdose. Mother Family Medical History: Fibromyalgia Additional Family Medical History / Comment(s): Mother is alive at age 61 with history of primary immunodeficiency. Brother(s) Additional Family Medical History / Comment(s): Patient has one brother with history of alcohol abuse. Patient does not have any sisters. Patient has 2 children with no major medical problems. Medications and Allergies Home Medications Medication Instructions Recorded Confirmed Type Cetirizine HCl [Zyrtec] 10 mg PO DAILY PRN 02/26/20 11/04/20 History DULoxetine HCL [Cymbalta] 60 mg PO DAILY 02/26/20 11/04/20 History Butalb/Acetaminophen/Caffeine 1 tab PO BID PRN 08/13/20 11/04/20 History [Fioricet 50-325-40] buPROPion XL [Wellbutrin XL] 150 mg PO DAILY 08/14/20 11/04/20 History Acetaminophen Tab [Tylenol] 650 mg PO Q6HR PRN tab 08/16/20 11/04/20 Rx Sucralfate [Carafate] 1 gm PO ACHS #60 tab 08/16/20 11/04/20 Rx ARIPiprazole [Abilify] 7.5 mg PO DAILY 11/04/20 11/04/20 History Albuterol Sulfate [Proair Hfa] 2 puff INHALATION RT-Q4H PRN 11/04/20 11/04/20 History Benzonatate [Tessalon Perles] 200 mg PO TID 11/04/20 11/04/20 History Cholecalciferol [Vitamin D3 (25 25 mcg PO DAILY 11/04/20 11/04/20 History Mcg = 1000 Iu)] Cyclobenzaprine [Flexeril] 5 - 10 mg PO TID PRN 11/04/20 11/04/20 History Fluticasone Nasal [place] [Flonase 1 - 2 spr EA NOSTRIL Q48H PRN 11/04/20 11/04/20 History Nasal [place]] Fluticasone/Salmeterol [Advair 1 puff INHALATION RT-BID 11/04/20 11/04/20 History 250-50 Diskus] Pantoprazole Sodium [Protonix] 40 mg PO DAILY 11/04/20 11/04/20 History Propranolol LA [Inderal LA] 60 mg PO DAILY 11/04/20 11/04/20 History Triamcinolone 0.1% Cream [Kenalog 1 applic TOPICAL BID 11/04/20 11/04/20 History 0.1% Cream] busPIRone HCl [Buspar] 10 mg PO BID PRN 11/04/20 11/04/20 History Allergies Allergy/AdvReac Type Severity Reaction Status Date / Time adhesive Allergy Rash/Hives Verified 11/04/20 09:49 latex Allergy Rash/Hives Verified 11/04/20 09:49 prochlorperazine Allergy Unknown Verified 11/04/20 09:49 [From Compazine] ciprofloxacin [From Cipro] AdvReac Hallucinati Verified 11/04/20 09:49 ons citalopram [From Celexa] AdvReac Suicidal Verified 11/04/20 09:49 thoughts diazepam [From Valium] AdvReac Hallucinati Verified 11/04/20 09:49 ons/Anxiety fluoxetine [From Prozac] AdvReac Suicidal Verified 11/04/20 09:49 thoughts metoclopramide [From Reglan] AdvReac Hallucinati Verified 11/04/20 09:49 ons/Anxiety paroxetine [From Paxil] AdvReac Suicidal Verified 11/04/20 09:49 thoughts Penicillins AdvReac Nausea & Verified 11/04/20 09:49 Vomiting Physical Exam Vitals: Vital Signs Temp Pulse Resp BP Pulse Ox 11/04/20 09:38 97.8 F 94 24 103/65 100 11/04/20 09:20 97.8 F 94 24 103/65 100 11/04/20 08:00 97.8 F 94 24 102/63 95 11/04/20 06:40 94 22 102/63 95 11/04/20 04:26 97 11/04/20 04:25 72 L 11/04/20 03:52 92 18 115/74 88 L 11/04/20 03:00 98.6 F 87 18 102/63 94 L 11/04/20 00:10 94 L 11/03/20 23:31 89 20 96/63 94 L 11/03/20 21:18 90 19 98/67 93 L 11/03/20 20:40 100 11/03/20 20:23 100 11/03/20 19:56 98 11/03/20 19:27 98.3 F 102 H 40 H 95/64 71 L Intake and Output 11/03/20 11/04/20 11/04/20 22:59 06:59 14:59 Other: Weight 58.967 kg 58.967 kg GENERAL EXAM: Alert, pleasant 39-year-old female patient, and 15 L high flow plus nonrebreather, and moderate respiratory distress. HEAD: Normocephalic. EYES: Normal reaction of pupils, equal size. NOSE: Clear with pink turbinates. THROAT: No erythema or exudates. NECK: No masses, no JVD. CHEST: No chest wall deformity. LUNGS: Equal air entry with bilateral scattered rhonchi, crackles in the posterior bases. CVS: S1 and S2 normal with no audible murmur, regular rhythm. ABDOMEN: No hepatosplenomegaly, normal bowel sounds, no guarding or rigidity. SPINE: No scoliosis or deformity SKIN: No rashes CENTRAL NERVOUS SYSTEM: No focal deficits, tone is normal in all 4 extremities. EXTREMITIES: There is no peripheral edema. No clubbing, no cyanosis. Peripheral pulses are intact. Results - Laboratory Findings CBC and BMP: 11/03/20 19:51 11/04/20 09:02 PT/INR, D-dimer PT 10.2 sec (9.0-12.0) 11/03/20 19:51 INR 0.9 (<1.2) 11/03/20 19:51 D-Dimer 1.06 mg/L FEU (<0.60) H 11/03/20 19:51 Abnormal lab findings: Abnormal Labs 11/03/20 11/03/20 11/03/20 19:51 19:51 19:51 RBC 3.09 L Hgb 8.6 L Hct 26.3 L RDW 18.7 H Neutrophils # 8.6 H Lymphocytes # 0.6 L D-Dimer 1.06 H Sodium 135 L Potassium 2.8 L Carbon Dioxide 21 L BUN 19 H POC Glucose (mg/dL) Plasma Lactic Acid Domo Ferritin 291.4 H AST 71 H Alkaline Phosphatase 264 H Lactate Dehydrogenase 2067 H C-Reactive Protein 320.8 H Total Protein 6.1 L Albumin 3.2 L 11/03/20 11/04/20 19:51 10:07 RBC Hgb Hct RDW Neutrophils # Lymphocytes # D-Dimer Sodium Potassium Carbon Dioxide BUN POC Glucose (mg/dL) 129 H Plasma Lactic Acid Domo 3.1 H* Ferritin AST Alkaline Phosphatase Lactate Dehydrogenase C-Reactive Protein Total Protein Albumin - Diagnostic Findings Chest x-ray: image reviewed CT scan - chest: image reviewed Assessment and Plan Assessment: 1 Acute hypoxemic respiratory failure secondary to acute CoVID 19 pneumonia 2 Acute exacerbation of mild intermittent chronic bronchial asthma secondary to above 3 Anemia in a patient with a known history of nonbleeding ulcers with previous EGD and GI bleed 4 History of chronic tobacco dependence, vaping 5 History of anxiety/depression 6 History of immunodeficiency disorder 7 Irritable bowel syndrome 8 History of migraine 9 Fibromyalgia. 10 History of chronic back pain Plan: The patient was seen and evaluated by Dr. Conn The patient will be admitted to the intensive care unit versus the regular floor We will initiate tocilizumab Continue Lovenox, IV Solu-Medrol, vitamin supplement Repeat chest x-ray, inflammatory markers in the a.m. We will continue to follow and make further recommendations based on her clinical status I, the cosigning physician, performed a history & physical examination of the patient. Lungs sounds bilateral scattered rhonchi, crackles in the posterior bases. Maintaining good O2 saturations in the 90s on 15 L high flow nasal cannula with nonrebreather. I discussed the assessment and plan of care with my nurse practitioner, Cecelia Salgado. I attest to the above consultation as dictated by her. Time with Patient: Greater than 30
[2020-11-04] MEDS: ASCORBIC ACID 500 MG TAB PO SCH (11:39)
[2020-11-04] MEDS: ZINC SULFATE 220 MG CAP PO SCH (11:47)
[2020-11-04] MEDS: CHOLECALCIFEROL 25 MCG (1000 IU) TABLET PO SCH (11:47)
[2020-11-04] MEDS: ENOXAPARIN 40 MG/0.4 ML SYRINGE SQ SCH (12:31)
[2020-11-04] MEDS: SODIUM CHLORIDE 0.9% 1,000 ML IV SCH (12:32)
[2020-11-04] MEDS ORDERED: BUTALB/APAP/CAFF 50-325-40MG TAB PO PRN (13:19)
[2020-11-04] MEDS ORDERED: busPIRone HCl 10 MG TAB PO PRN (13:19)
--- NOTE | 2020-11-04 13:24 | P.HPIM ---
History of Present Illness H&P Date: 11/04/20 HISTORY OF PRESENT ILLNESS This is a 39-year-old female patient of Dr. Gonzalez with past medical history of GI bleed in 2008, July 2020 was admitted for GI bleed secondary to 2 nonbleeding antral ulcers requiring transfusion 2 units packed RBCs, tobacco use, alcohol abuse, recurrent depression, generalized anxiety disorder. Patient was diagnosed with COVID-19 on October 30. She complains of increasing shortness of breath, cough, congestion, fever and chills and hoarseness. She continued to worsen significantly over the past 2 days. She also complains of bloody sputum production. Patient came into [facility] emergency center for evaluation. Temperature 98.3, heart rate 102, respiratory rate 40, blood pressure 95/64, pulse ox 71%. EKG was a sinus rhythm no acute ST elevation. W BC 9.4, hemoglobin 8.6, platelet count 284. Sodium 135, potassium 2.8, chloride 102, CO2 21, BUN 19 creatinine 0.88. Blood sugar 92. AST 71, ALT 24, alkaline ph osphatase 264 [place] phosphatase 264, LDH 2067, CA reactive protein 320.8. Lactic acid 3.1. CT angiogram of the chest reveals no evidence pulmonary embolism. Severe pulmonary interstitial and airspace edema. Chest x-ray reveals pulmonary interstitial pneumonia worse than recent exam. Some airspace component. Patient is status post 2 L of IV fluids, potassium replacement, Dilaudid, patient seen by pulmonary medicine and started on Tocilizumab. REVIEW OF SYSTEMS Constitutional: No fever, no chills, no night sweats. No weight change. No weakness, fatigue or lethargy. No daytime sleepiness. EENT: No headache. No blurred vision or double vision, no loss of vision. No loss of Hearing, no ringing in the ears, no dizziness. No nasal drainage or congestion. No epistaxis. No sore throat. Lungs: No shortness of breath, cough, no sputum production. No wheezing. Cardiovascular: No chest pain, no lower extremity edema. No palpitations. No paroxysmal nocturnal dyspnea. No orthopnea. No lightheadedness or dizziness. No syncopal episodes. Abdominal: No abdominal pain. No nausea, vomiting. No diarrhea. No constipation. No bloody or tarry stools.. No loss of appetite. Genitourinary: No dysuria, increased frequency, urgency. No urinary retention. Musculoskeletal: No myalgias. No muscle weakness, no gait dysfunction, no frequent falls. No back pain. No neck pain. Integumentary: No wounds, no lesions. No rash or pruritus. No unusual bruising . No change in hair or nails. Neurologic: No aphasia. No facial droop. No change in mentation. No head injury. No headache. No paralysis. No paresthesia. Psychiatric: No depression. No anxiety. No mood swings. Endocrine: No abnormal blood sugars. No weight change. No excessive sweating or thirst. No cold intolerance. SOCIAL HISTORY Patient is a smoker on and off of a half to 1 pack per day since 1990. She also occasionally baby's. She drinks alcohol 1 pint to 1/5 per day but no alcohol intake for the past 7 days. She lives at home with her boyfriend.. FAMILY HISTORY Father at age 53 from myocardial infarction. Mother is in her 60s with asthma. Patient has one brother and she has no contact with him. She has 2 children with no major medical problems. PHYSICAL EXAMINATION Gen: This is a 39-year-old female. Patient is resting in the ICU bed and appears to be in moderate respiratory distress with 15 L high flow plus nonrebreather. HEENT: Head is atraumatic, normocephalic. Pupils equal, round. Sclerae is anicteric. NECK: Supple. No JVD. No lymphadenopathy. No thyromegaly. Oral mucous membranes are dry. LUNGS: Scattered rhonchi, crackles in the bases. No intercostal retractions. HEART: Regular rate and rhythm. No murmur. ABDOMEN: Soft. Bowel sounds are present. No masses. No tenderness. EXTREMITIES: No pedal edema. No calf tenderness. Dorsalis pedis palpable bilaterally. NEUROLOGICAL: Patient is awake, alert and oriented x3. Cranial nerves 2 through 12 are grossly intact. ASSESSMENT AND PLAN 1. Acute hypoxic respiratory failure secondary to acute Covid 19 pneumonia. Consult with pulmonary medicine appreciated. Patient started on Tocilizumab, Lovenox 40 mg subcu daily, Solu-Medrol 60 mg IV push every 6 hours, zinc and vitamin supplements. Continue O2 therapy. 2. Acute exacerbation of mild intermittent bronchial asthma. 3. Chronic anemia most likely due to history of bleeding ulcers and alcohol abuse. 4. Tobacco use and dependence including taping. 5. Daily alcohol use/abuse. Patient apparently has had no alcohol intake for 7 days. Monitor closely for DTs 6. Recurrent depression and generalized anxiety disorder. Continue Abilify 7.5 mg daily, Wellbutrin 150 mg daily, BuSpar 10 mg as needed for anxiety, Cymbalta 60 mg daily. 7. Migraine headaches. Continue Fioricet as needed. Hold Inderal 60 mg daily. 8. Gastroesophageal reflux disease with history of bleeding ulcers. Continue Protonix 40 mg daily and Carafate 1 g 4 times daily. 9. DVT prophylaxis. Lovenox. Patient will be admitted to the hospital for a minimum of 2 night stay. DISCHARGE PLAN Home. Impression and plan of care have been directed as dictated by the signing physician. Isabel Samayoa nurse practitioner acting as scribe for signing physician. Past Medical History Past Medical History: Asthma, Fibromyalgia, GERD/Reflux, GI Bleed Additional Past Medical History / Comment(s): Pt tested covid + on 10/30/20 at [facility]. Other hx: Primary immunodeficiency, antral ulcers, GI bleed associated with excedrin/noninflammatory medication use, anemia, IBS, migraines, back pain, TMJ, seasonal allergies. History of Any Multi-Drug Resistant Organisms: None Reported Past Surgical History: Breast Surgery, Ear Surgery, Uterine Ablation Additional Past Surgical History / Comment(s): EGDs, colonoscopies, bilateral breast augmentation, septoplasty, L ear trauma/reattached. Past Anesthesia/Blood Transfusion Reactions: No Reported Reaction, Motion Sickness Additional Past Anesthesia/Blood Transfusion Reaction / Comment(s): Pt has received blood in past without reaction. Smoking Status: Former smoker, Vaper - Past Family History Father Additional Family Medical History / Comment(s): Father at age 51 from accidental drug overdose. Mother Family Medical History: Fibromyalgia Additional Family Medical History / Comment(s): Mother is alive at age 61 with history of primary immunodeficiency. Brother(s) Additional Family Medical History / Comment(s): Patient has one brother with history of alcohol abuse. Patient does not have any sisters. Patient has 2 children with no major medical problems. Medications and Allergies Home Medications Medication Instructions Recorded Confirmed Type Cetirizine HCl [Zyrtec] 10 mg PO DAILY PRN 02/26/20 11/04/20 History DULoxetine HCL [Cymbalta] 60 mg PO DAILY 02/26/20 11/04/20 History Butalb/Acetaminophen/Caffeine 1 tab PO BID PRN 08/13/20 11/04/20 History [Fioricet 50-325-40] buPROPion XL [Wellbutrin XL] 150 mg PO DAILY 08/14/20 11/04/20 History Acetaminophen Tab [Tylenol] 650 mg PO Q6HR PRN tab 08/16/20 11/04/20 Rx Sucralfate [Carafate] 1 gm PO ACHS #60 tab 08/16/20 11/04/20 Rx ARIPiprazole [Abilify] 7.5 mg PO DAILY 11/04/20 11/04/20 History Albuterol Sulfate [Proair Hfa] 2 puff INHALATION RT-Q4H PRN 11/04/20 11/04/20 History Benzonatate [Tessalon Perles] 200 mg PO TID 11/04/20 11/04/20 History Cholecalciferol [Vitamin D3 (25 25 mcg PO DAILY 11/04/20 11/04/20 History Mcg = 1000 Iu)] Cyclobenzaprine [Flexeril] 5 - 10 mg PO TID PRN 11/04/20 11/04/20 History Fluticasone Nasal [place] [Flonase 1 - 2 spr EA NOSTRIL Q48H PRN 11/04/20 11/04/20 History Nasal [place]] Fluticasone/Salmeterol [Advair 1 puff INHALATION RT-BID 11/04/20 11/04/20 History 250-50 Diskus] Pantoprazole Sodium [Protonix] 40 mg PO DAILY 11/04/20 11/04/20 History Propranolol LA [Inderal LA] 60 mg PO DAILY 11/04/20 11/04/20 History Triamcinolone 0.1% Cream [Kenalog 1 applic TOPICAL BID 11/04/20 11/04/20 History 0.1% Cream] busPIRone HCl [Buspar] 10 mg PO BID PRN 11/04/20 11/04/20 History Allergies Allergy/AdvReac Type Severity Reaction Status Date / Time adhesive Allergy Rash/Hives Verified 11/04/20 09:49 latex Allergy Rash/Hives Verified 11/04/20 09:49 prochlorperazine Allergy Unknown Verified 11/04/20 09:49 [From Compazine] ciprofloxacin [From Cipro] AdvReac Hallucinati Verified 11/04/20 09:49 ons citalopram [From Celexa] AdvReac Suicidal Verified 11/04/20 09:49 thoughts diazepam [From Valium] AdvReac Hallucinati Verified 11/04/20 09:49 ons/Anxiety fluoxetine [From Prozac] AdvReac Suicidal Verified 11/04/20 09:49 thoughts metoclopramide [From Reglan] AdvReac Hallucinati Verified 11/04/20 09:49 ons/Anxiety paroxetine [From Paxil] AdvReac Suicidal Verified 11/04/20 09:49 thoughts Penicillins AdvReac Nausea & Verified 11/04/20 09:49 Vomiting Physical Exam Vitals: Vital Signs Temp Pulse Resp BP Pulse Ox 11/04/20 09:38 97.8 F 94 24 103/65 100 11/04/20 09:20 97.8 F 94 24 103/65 100 11/04/20 08:00 97.8 F 94 24 102/63 95 11/04/20 06:40 94 22 102/63 95 11/04/20 04:26 97 11/04/20 04:25 72 L 11/04/20 03:52 92 18 115/74 88 L 11/04/20 03:00 98.6 F 87 18 102/63 94 L 11/04/20 00:10 94 L 11/03/20 23:31 89 20 96/63 94 L 11/03/20 21:18 90 19 98/67 93 L 11/03/20 20:40 100 11/03/20 20:23 100 11/03/20 19:56 98 11/03/20 19:27 98.3 F 102 H 40 H 95/64 71 L Intake and Output 11/03/20 11/04/20 11/04/20 22:59 06:59 14:59 Other: Weight 58.967 kg 58.967 kg Results CBC & Chem 7: 11/03/20 19:51 11/04/20 09:02 Labs: Abnormal Lab Results - Last 24 Hours (Table) 11/03/20 11/03/20 11/03/20 Range/Units 19:51 19:51 19:51 RBC 3.09 L (3.80-5.40) m/uL Hgb 8.6 L (11.4-16.0) gm/dL Hct 26.3 L (34.0-46.0) % RDW 18.7 H (11.5-15.5) % Neutrophils # 8.6 H (1.3-7.7) k/uL Lymphocytes # 0.6 L (1.0-4.8) k/uL D-Dimer 1.06 H (<0.60) mg/L FEU Sodium 135 L (137-145) mmol/L Potassium 2.8 L (3.5-5.1) mmol/L Carbon Dioxide 21 L (22-30) mmol/L BUN 19 H (7-17) mg/dL POC Glucose (mg/dL) (75-99) mg/dL Plasma Lactic Acid Domo (0.7-2.0) mmol/L Ferritin 291.4 H (10.0-291.0) ng/mL AST 71 H (14-36) U/L Alkaline Phosphatase 264 H (38-126) U/L Lactate Dehydrogenase 2067 H (313-618) U/L C-Reactive Protein 320.8 H (<10.0) mg/L Total Protein 6.1 L (6.3-8.2) g/dL Albumin 3.2 L (3.5-5.0) g/dL 11/03/20 11/04/20 Range/Units 19:51 10:07 RBC (3.80-5.40) m/uL Hgb (11.4-16.0) gm/dL Hct (34.0-46.0) % RDW (11.5-15.5) % Neutrophils # (1.3-7.7) k/uL Lymphocytes # (1.0-4.8) k/uL D-Dimer (<0.60) mg/L FEU Sodium (137-145) mmol/L Potassium (3.5-5.1) mmol/L Carbon Dioxide (22-30) mmol/L BUN (7-17) mg/dL POC Glucose (mg/dL) 129 H (75-99) mg/dL Plasma Lactic Acid Domo 3.1 H* (0.7-2.0) mmol/L Ferritin (10.0-291.0) ng/mL AST (14-36) U/L Alkaline Phosphatase (38-126) U/L Lactate Dehydrogenase (313-618) U/L C-Reactive Protein (<10.0) mg/L Total Protein (6.3-8.2) g/dL Albumin (3.5-5.0) g/dL Thrombosis Risk Factor Assmnt - Choose All That Apply Any of the Below Risk Factors Present?: Yes Each Factor Represents 1 point: Age 41-60 years, Serious lung disease incl. pneumonia (< 1month) Other Risk Factors: No Other congenital or acquired thrombophilia - If yes, enter type in comment: No Thrombosis Risk Factor Assessment Total Risk Factor Score: 2 Thrombosis Risk Factor Assessment Level: Low Risk
[2020-11-04] MEDS: SUCRALFATE 1 GM TAB PO SCH ×2 (17:09→23:22)
[2020-11-05] MEDS: methylPREDNISolone SOD SUCCI 125 MG/2 ML VIAL IV SCH ×4 (00:43→17:28)
[2020-11-05] MEDS: SODIUM CHLORIDE 0.9% 1,000 ML IV SCH ×2 (00:59→16:12)
[2020-11-05] MEDS: HYDROmorphone 1 MG/ML 1 ML SYRINGE IVP PRN ×5 (01:57→21:24)
[2020-11-05] MEDS: MORPHINE SULFATE 4 MG/ML SYRINGE IVP PRN (03:05)
[2020-11-05] MEDS ORDERED: VANCOMYCIN 1,000 MG in SODIUM CHLORIDE 0.9% 250 ML IVPB ONE (05:15)
[2020-11-05 06:16] LABS: ALT 18 U/L (4-34); AST 48 U/L (14-36); African American GFR (CKD) >90 (>60 ml/min/1.73 sqM); Albumin 2.7 g/dL (3.5-5.0); Alkaline Phosphatase 218 U/L (38-126); Anion Gap 6 mmol/L; Blood Urea Nitrogen 18 mg/dL (7-17); Carbon Dioxide 28 mmol/L (22-30); Chloride 101 mmol/L (98-107); Glucose 117 mg/dL (74-99); Non-African American GFR(CKD) >90 (>60 ml/min/1.73 sqM); Potassium 3.8 mmol/L (3.5-5.1); Sodium 135 mmol/L (137-145); Total Bilirubin 0.3 mg/dL (0.2-1.3); Total Protein 5.3 g/dL (6.3-8.2)
[2020-11-05 06:39] LABS: C Reactive Protein 254.5 mg/L (<10.0)
[2020-11-05 06:40] LABS: LDH 2243 U/L (313-618)
[2020-11-05 06:53] LABS: Anisocytosis Slight; Basophils % (A) 0 %; Eosinophils % (A) 0 %; HGB 7.7 gm/dL (11.4-16.0); Hypochromasia Moderate; Lymphocytes # (A) 0.3 k/uL (1.0-4.8); Lymphocytes % (A) 3 %; MCH 26.3 pg (25.0-35.0); MCHC 30.8 g/dL (31.0-37.0); MCV 85.4 fL (80.0-100.0); Mean Platelet Volume 7.7; Monocytes # (A) 0.2 k/uL (0-1.0); Monocytes % (A) 2 %; Neutrophils # (A) 11.2 k/uL (1.3-7.7); Neutrophils % (A) 95 %; Platelet Count 243 k/uL (150-450); Poikilocytosis Slight; RBC 2.93 m/uL (3.80-5.40); RDW 18.7 % (11.5-15.5); WBC 11.8 k/uL (3.8-10.6)
[2020-11-05] MEDS: SUCRALFATE 1 GM TAB PO SCH ×4 (07:09→20:45)
[2020-11-05] MEDS: PANTOPRAZOLE 40 MG TABLET PO SCH (07:09)
[2020-11-05] MEDS: ALBUTEROL HFA INHALER INHALATION PRN ×3 (07:40→15:09)
[2020-11-05] MEDS ORDERED: POTASSIUM CHLORIDE ER 20 MEQ TAB.ER PO SCH (08:00)
[2020-11-05] MEDS: CHOLECALCIFEROL 25 MCG (1000 IU) TABLET PO SCH (08:29)
[2020-11-05] MEDS: ZINC SULFATE 220 MG CAP PO SCH (08:29)
[2020-11-05] MEDS: ASCORBIC ACID 500 MG TAB PO SCH (08:29)
[2020-11-05] MEDS: ARIPiprazole 5 MG TAB PO SCH (08:30)
[2020-11-05] MEDS: ENOXAPARIN 40 MG/0.4 ML SYRINGE SQ SCH (08:30)
[2020-11-05] MEDS: DULoxetine HCL 60 MG CAPSULE.DR PO SCH (08:30)
[2020-11-05] MEDS: buPROPion XL 150 MG TAB.ER.24H PO SCH (08:30)
--- NOTE | 2020-11-05 10:57 | P.PN ---
Subjective Progress Note Date: 11/05/20 Principal diagnosis: CoVID 19 pneumonia This is a very pleasant 39-year-old female patient with a known history of GI bleeding with 2 nonbleeding antral ulcers per EGD, migraines, anxiety/depression, severe back pain, fibromyalgia, primary immunodeficiency disorder, irritable bowel syndrome, tobacco dependence, mild intermittent chronic bronchial asthma maintained on Advair. Presently 2 weeks ago she developed increasing shortness of breath cough congestion chills fever. She subsequently tested positive for CoVID 19 on 10/30/2020. Her shortness of breath continued to worsen she presented here to the emergency room last evening. Chest x-ray shows bilateral patchy infiltrates consistent with CoVID pneumonia as does CTA of the chest. No evidence of pulmonary embolism. She is seen today in consultation in the emergency room. She is currently sitting up at the bedside. She is quite hoarse, quite dyspneic on minimal exertion and conversation. Requiring 15 L high flow nasal cannula with nonrebreather mask to maintain O2 saturations in the 90s. White count 9.4. Hemoglobin 8.6. Platelets 284. Lymphocytes 0.6. D-dimer 1.06. Sodium 135. Potassium 4.0. Creatinine 0.88. Glucose 159. LDH 2067, C-reactive protein 320. The patient is seen today 11/05/2020 in follow-up in the intensive care unit. She is currently sitting up in bed. Awake and alert. Remains in mild respiratory distress. She is currently on AirVo at 60 L/m and 90% FiO2 along with a nonrebreather mask to maintain O2 saturations in the high 80s low 90s. Chest x-ray continues to show bilateral patchy infiltrates. Blood culture reveals no growth. White count 11.8. Hemoglobin 7.7. Lymphocytes 0.3. D- dimer 1.95. Sodium 135. Potassium 3.8. Creatinine 0.45. LDH 2243. C-react maciel protein 254. She did receive to tocilizumab. Remains on vitamin supplements, IV Solu-Medrol, Lovenox. Objective - Vital Signs Vital signs: Vital Signs Temp 97.7 F 11/05/20 08:00 Pulse 96 11/05/20 09:00 Resp 36 H 11/05/20 09:00 BP 118/79 11/05/20 09:00 Pulse Ox 96 11/05/20 09:00 Intake & Output 11/04/20 11/05/20 11/05/20 18:59 06:59 18:59 Intake Total 1180 1370 400 Output Total 775 1265 280 Balance 405 105 120 Weight 58.967 kg Intake: IV 700 900 300 Sodium Chloride 0.9% 1, 600 900 300 000 ml @ 75 mls/hr IV . [id number] [facility] Rx#:[id number] Tocilizumab 200 mg In 100 Sodium Chloride 0.9% 90 ml @ 100 mls/hr IV ONCE ONE Rx#:[id number] Oral 480 470 100 Output: Urine 775 1265 280 Other: Voiding Method Indwelling Catheter Indwelling Catheter Indwelling Catheter - Exam GENERAL EXAM: Alert, pleasant 39-year-old female patient, AirVo 60 L/m and 90% FiO2 high flow plus nonrebreather, in mild respiratory distress. HEAD: Normocephalic. EYES: Normal reaction of pupils, equal size. NOSE: Clear with pink turbinates. THROAT: No erythema or exudates. NECK: No masses, no JVD. CHEST: No chest wall deformity. LUNGS: Equal air entry with bilateral scattered rhonchi, crackles in the posterior bases. CVS: S1 and S2 normal with no audible murmur, regular rhythm. ABDOMEN: No hepatosplenomegaly, normal bowel sounds, no guarding or rigidity. SPINE: No scoliosis or deformity SKIN: No rashes CENTRAL NERVOUS SYSTEM: No focal deficits, tone is normal in all 4 extremities. EXTREMITIES: There is no peripheral edema. No clubbing, no cyanosis. Peripheral pulses are intact. - Labs CBC & Chem 7: 11/05/20 05:19 11/05/20 05:19 Labs: Abnormal Lab Results - Last 24 Hours (Table) 11/03/20 11/05/20 11/05/20 Range/Units 19:51 05:19 05:19 WBC (3.8-10.6) k/uL RBC (3.80-5.40) m/uL Hgb (11.4-16.0) gm/dL Hct (34.0-46.0) % MCHC (31.0-37.0) g/dL RDW (11.5-15.5) % Neutrophils # (1.3-7.7) k/uL Lymphocytes # (1.0-4.8) k/uL D-Dimer 1.95 H (<0.60) mg/L FEU Sodium 135 L (137-145) mmol/L BUN 18 H (7-17) mg/dL Creatinine 0.45 L (0.52-1.04) mg/dL Glucose 117 H (74-99) mg/dL Calcium 8.0 L (8.4-10.2) mg/dL AST 48 H (14-36) U/L Alkaline Phosphatase 218 H (38-126) U/L Lactate Dehydrogenase 2243 H (313-618) U/L C-Reactive Protein 254.5 H (<10.0) mg/L Total Protein 5.3 L (6.3-8.2) g/dL Albumin 2.7 L (3.5-5.0) g/dL Procalcitonin 1.36 H (0.02-0.09) ng/mL 11/05/20 Range/Units 05:19 WBC 11.8 H (3.8-10.6) k/uL RBC 2.93 L (3.80-5.40) m/uL Hgb 7.7 L (11.4-16.0) gm/dL Hct 25.0 L (34.0-46.0) % MCHC 30.8 L (31.0-37.0) g/dL RDW 18.7 H (11.5-15.5) % Neutrophils # 11.2 H (1.3-7.7) k/uL Lymphocytes # 0.3 L (1.0-4.8) k/uL D-Dimer (<0.60) mg/L FEU Sodium (137-145) mmol/L BUN (7-17) mg/dL Creatinine (0.52-1.04) mg/dL Glucose (74-99) mg/dL Calcium (8.4-10.2) mg/dL AST (14-36) U/L Alkaline Phosphatase (38-126) U/L Lactate Dehydrogenase (313-618) U/L C-Reactive Protein (<10.0) mg/L Total Protein (6.3-8.2) g/dL Albumin (3.5-5.0) g/dL Procalcitonin (0.02-0.09) ng/mL Microbiology - Last 24 Hours (Table) 11/03/20 22:40 Blood Culture - Final Blood 11/03/20 22:30 Blood Culture - Preliminary Blood No Growth after 24 hours Assessment and Plan Assessment: 1 Acute hypoxemic respiratory failure secondary to acute CoVID 19 pneumonia. Did receive tocilizumab. 2 Acute exacerbation of mild intermittent chronic bronchial asthma secondary to above 3 Anemia in a patient with a known history of nonbleeding ulcers with previous EGD and GI bleed 4 History of chronic tobacco dependence, vaping 5 History of anxiety/depression 6 History of immunodeficiency disorder 7 Irritable bowel syndrome 8 History of migraine 9 Fibromyalgia. 10 History of chronic back pain Plan: The patient was seen and evaluated by Dr. Conn Chest x-ray and labs reviewed Remains on AirVo 60 L and 90% FiO2 plus a nonrebreather mask Titrate down the FiO2 as tolerated Continue Lovenox, IV Solu-Medrol, vitamin supplement Repeat chest x-ray, inflammatory markers in the a.m. We will continue to follow and make further recommendations based on her clinical status Critical care time 36 minutes I, the cosigning physician, performed a history & physical examination of the patient. Lungs sounds bilateral scattered rhonchi, crackles in the posterior bases. Maintaining O2 saturations in the 90s on AirVo 60L/min and 90% high flow nasal cannula with nonrebreather. I discussed the assessment and plan of care with my nurse practitioner, Cecelia Salgado. I attest to the above note as dictated by her.
--- NOTE | 2020-11-05 11:11 | XR ---
EXAMINATION TYPE: XR chest 1V portable DATE OF EXAM: 11/05/2020 COMPARISON: 11/03/2020 HISTORY: Shortness of breath TECHNIQUE: Single frontal view of the chest is obtained. FINDINGS: Diffuse bilateral patchy infiltrates with more localized consolidative process involving t he periphery of both lungs. No pneumothorax. Heart size normal. Osseous structures are stable. No pne umothorax. IMPRESSION: Stable diffuse bilateral multifocal pneumonia
[2020-11-05 11:50] LABS: Glucose,Whole Blood 124 mg/dL (75-99)
[2020-11-05] MEDS: INSULIN ASPART (NovoLOG) 100 UNIT/ML VIAL SQ SCH ×3 (11:55→20:45)
[2020-11-05 12:27] LABS: Ferritin 160.3 ng/mL (10.0-291.0)
--- NOTE | 2020-11-05 13:07 | P.PN ---
Subjective Progress Note Date: 11/05/20 HISTORY OF PRESENT ILLNESS This is a 39-year-old female patient of Dr. Gonzalez with past medical history of GI bleed in 2008, July 2020 was admitted for GI bleed secondary to 2 no nbleeding antral ulcers requiring transfusion 2 units packed RBCs, tobacco use, alcohol abuse, recurrent depression, generalized anxiety disorder. Patient was diagnosed with COVID-19 on October 30. She complains of increasing shortness of breath, cough, congestion, fever and chills and hoarseness. She continued to worsen significantly over the past 2 days. She also complains of bloody sputum production. Patient came into [facility] emergency center for evaluation. Temperature 98.3, heart rate 102, respiratory rate 40, blood pressure 95/64, pulse ox 71%. EKG was a sinus rhythm no acute ST elevation. W BC 9.4, hemoglobin 8.6, platelet count 284. Sodium 135, potassium 2.8, chloride 102, CO2 21, BUN 19 creatinine 0.88. Blood sugar 92. AST 71, ALT 24, alkaline phosphatase 264 [place] phosphatase 264, LDH 2067, CA reactive protein 320.8. Lactic acid 3.1. CT angiogram of the chest reveals no evidence pulmonary embolism. Severe pulmonary interstitial and airspace edema. Chest x-ray reveals pulmonary interstitial pneumonia worse than recent exam. Some airspace component. Patient is status post 2 L of IV fluids, potassium replacement, Dilaudid, patient seen by pulmonary medicine and started on Tocilizumab. 11/05: Patient remains in the intensive care unit. She is a nonrebreather mask and AorVp and can maintain a pulse ox in the 90s. If she removes these, patient follows less than 70s. She is very anxious today and has many questions. She does have large number of psychiatric medications which have been resumed. We will also add and Xanax twice daily as needed. She has been afebrile, heart rate 89, blood pressure 116/79, pulse ox 95%. Repeat blood work reveals WBC 11.8, hemoglobin 7.7, platelet count 243. D-dimer 1.95. Sodium 135, electrolyt es otherwise normal, BUN 18 creatinine 0.45. Blood sugars running between 117- 129. AST 48, ALT 18, alkaline phosphatase 218, LDH 2243. C-reactive protein 254. Patient had 2 blood cultures, one is showing no growth at 24 hours and the second obtained at 2240 showing gram-positive cocci. She was started on vancomycin. REVIEW OF SYSTEMS Constitutional: No fever, no chills, no night sweats. No weight change. No weakness, fatigue or lethargy. No daytime sleepiness. EENT: No headache. No blurred vision or double vision, no loss of vision. No loss of Hearing, no ringing in the ears, no dizziness. No nasal drainage or congestion. No epistaxis. No sore throat. Lungs: No shortness of breath, cough, no sputum production. No wheezing. Cardiovascular: No chest pain, no lower extremity edema. No palpitations. No paroxysmal nocturnal dyspnea. No orthopnea. No lightheadedness or dizziness. No syncopal episodes. Abdominal: No abdominal pain. No nausea, vomiting. No diarrhea. No constipation. No bloody or tarry stools.. No loss of appetite. Genitourinary: No dysuria, increased frequency, urgency. No urinary retention. Musculoskeletal: No myalgias. No muscle weakness, no gait dysfunction, no frequent falls. No back pain. No neck pain. Integumentary: No wounds, no lesions. No rash or pruritus. No unusual bruising. No change in hair or nails. Neurologic: No aphasia. No facial droop. No change in mentation. No head injury. No headache. No paralysis. No paresthesia. Psychiatric: No depression. No anxiety. No mood swings. Endocrine: No abnormal blood sugars. No weight change. No excessive sweating or thirst. No cold intolerance. PHYSICAL EXAMINATION Gen: This is a 39-year-old female. Patient is resting in the ICU bed and appears to be in moderate respiratory distress with AirVO plus nonrebrea ther. HEENT: Head is atraumatic, normocephalic. Pupils equal, round. Sclerae is anicteric. NECK: Supple. No JVD. No lymphadenopathy. No thyromegaly. Oral mucous membranes are dry. LUNGS: Scattered rhonchi, crackles in the bases. No intercostal retractions. HEART: Regular rate and rhythm. No murmur. ABDOMEN: Soft. Bowel sounds are present. No masses. No tenderness. EXTREMITIES: No pedal edema. No calf tenderness. Dorsalis pedis palpable bilaterally. NEUROLOGICAL: Patient is awake, alert and oriented x3. Cranial nerves 2 through 12 are grossly intact. ASSESSMENT AND PLAN 1. Acute hypoxic respiratory failure secondary to acute Covid 19 pneumonia. Consult with pulmonary medicine appreciated. Status post Tocilizumab, continue Lovenox 40 mg subcu daily, Solu-Medrol 60 mg IV push every 6 hours, zinc and vitamin supplements. Continue O2 therapy. 2. Acute exacerbation of mild intermittent bronchial asthma. 3. Chronic anemia most likely due to history of bleeding ulcers and alcohol abuse. 4. Tobacco use and dependence including taping. 5. Daily alcohol use/abuse. Patient apparently has had no alcohol intake for 7 days. Monitor closely for DTs 6. Recurrent depression and generalized anxiety disorder. Continue Abilify 7.5 mg daily, Wellbutrin 150 mg daily, BuSpar 10 mg as needed for anxiety, Cymbalta 60 mg daily. 7. Migraine headaches. Continue Fioricet as needed. Hold Inderal 60 mg daily. 8. Possible bacteremia. Patient started on vancomycin. 9. Gastroesophageal reflux disease with history of bleeding ulcers. Continue Protonix 40 mg daily and Carafate 1 g 4 times daily. 10. DVT prophylaxis. Lovenox. DISCHARGE PLAN Home. Impression and plan of care have been directed as dictated by the signing physician. Isabel Samayoa nurse practitioner acting as scribe for signing physician. Objective - Vital Signs Vital signs: Vital Signs Temp 97.7 F 11/05/20 12:00 Pulse 123 H 11/05/20 12:00 Resp 22 11/05/20 12:00 BP 115/83 11/05/20 12:00 Pulse Ox 60 L 11/05/20 12:00 Intake & Output 11/04/20 11/05/20 11/05/20 18:59 06:59 18:59 Intake Total 1180 1370 550 Output Total 775 1265 380 Balance 405 105 170 Weight 58.967 kg Intake: IV 700 900 450 Sodium Chloride 0.9% 1, 600 900 450 000 ml @ 75 mls/hr IV . [id number] Rx#:[id number] Tocilizumab 200 mg In 100 Sodium Chloride 0.9% 90 ml @ 100 mls/hr IV ONCE ONE Rx#:[id number] Oral 480 470 100 Output: Urine 775 1265 380 Other: Voiding Method Indwelling Catheter Indwelling Catheter Indwelling Catheter - Labs CBC & Chem 7: 11/05/20 05:19 11/05/20 05:19 Labs: Abnormal Lab Results - Last 24 Hours (Table) 11/03/20 11/05/20 11/05/20 Range/Units 19:51 05:19 05:19 WBC (3.8-10.6) k/uL RBC (3.80-5.40) m/uL Hgb (11.4-16.0) gm/dL Hct (34.0-46.0) % MCHC (31.0-37.0) g/dL RDW (11.5-15.5) % Neutrophils # (1.3-7.7) k/uL Lymphocytes # (1.0-4.8) k/uL D-Dimer 1.95 H (<0.60) mg/L FEU Sodium 135 L (137-145) mmol/L BUN 18 H (7-17) mg/dL Creatinine 0.45 L (0.52-1.04) mg/dL Glucose 117 H (74-99) mg/dL POC Glucose (mg/dL) (75-99) mg/dL Calcium 8.0 L (8.4-10.2) mg/dL AST 48 H (14-36) U/L Alkaline Phosphatase 218 H (38-126) U/L Lactate Dehydrogenase 2243 H (313-618) U/L C-Reactive Protein 254.5 H (<10.0) mg/L Total Protein 5.3 L (6.3-8.2) g/dL Albumin 2.7 L (3.5-5.0) g/dL Procalcitonin 1.36 H (0.02-0.09) ng/mL 11/05/20 11/05/20 Range/Units 05:19 11:49 WBC 11.8 H (3.8-10.6) k/uL RBC 2.93 L (3.80-5.40) m/uL Hgb 7.7 L (11.4-16.0) gm/dL Hct 25.0 L (34.0-46.0) % MCHC 30.8 L (31.0-37.0) g/dL RDW 18.7 H (11.5-15.5) % Neutrophils # 11.2 H (1.3-7.7) k/uL Lymphocytes # 0.3 L (1.0-4.8) k/uL D-Dimer (<0.60) mg/L FEU Sodium (137-145) mmol/L BUN (7-17) mg/dL Creatinine (0.52-1.04) mg/dL Glucose (74-99) mg/dL POC Glucose (mg/dL) 124 H (75-99) mg/dL Calcium (8.4-10.2) mg/dL AST (14-36) U/L Alkaline Phosphatase (38-126) U/L Lactate Dehydrogenase (313-618) U/L C-Reactive Protein (<10.0) mg/L Total Protein (6.3-8.2) g/dL Albumin (3.5-5.0) g/dL Procalcitonin (0.02-0.09) ng/mL Microbiology - Last 24 Hours (Table) 11/03/20 22:40 Blood Culture Gram Stain - Preliminary Blood 11/03/20 22:40 Blood Culture - Final Blood 11/03/20 22:30 Blood Culture - Preliminary Blood No Growth after 24 hours
[2020-11-05 16:19] LABS: Glucose,Whole Blood 123 mg/dL (75-99)
[2020-11-05 20:24] LABS: Glucose,Whole Blood 135 mg/dL (75-99)
[2020-11-05] MEDS: ALPRAZolam 0.25 MG TAB PO PRN (23:00)
[2020-11-06] MEDS: methylPREDNISolone SOD SUCCI 125 MG/2 ML VIAL IV SCH ×5 (00:51→23:04)
[2020-11-06] MEDS: HYDROmorphone 1 MG/ML 1 ML SYRINGE IVP PRN ×4 (02:50→17:06)
[2020-11-06] MEDS: SODIUM CHLORIDE 0.9% 1,000 ML IV SCH ×2 (05:14→19:04)
[2020-11-06 05:31] LABS: Anisocytosis Slight; Basophils % (A) 0 %; Eosinophils % (A) 0 %; HCT 22.7 % (34.0-46.0); HGB 7.2 gm/dL (11.4-16.0); Hypochromasia Moderate; Lymphocytes # (A) 0.1 k/uL (1.0-4.8); Lymphocytes % (A) 2 %; MCHC 31.5 g/dL (31.0-37.0); MCV 85.7 fL (80.0-100.0); Mean Platelet Volume 7.6; Monocytes # (A) 0.1 k/uL (0-1.0); Monocytes % (A) 2 %; Neutrophils # (A) 7.6 k/uL (1.3-7.7); Neutrophils % (A) 95 %; Platelet Count 184 k/uL (150-450); Poikilocytosis Slight; RBC 2.65 m/uL (3.80-5.40); RDW 18.7 % (11.5-15.5)
[2020-11-06] MEDS: INSULIN ASPART (NovoLOG) 100 UNIT/ML VIAL SQ SCH ×4 (06:28→20:24)
[2020-11-06 06:29] LABS: Glucose,Whole Blood 121 mg/dL (75-99)
[2020-11-06 06:40] LABS: ALT 15 U/L (4-34); AST 33 U/L (14-36); African American GFR (CKD) >90 (>60 ml/min/1.73 sqM); Albumin 2.6 g/dL (3.5-5.0); Alkaline Phosphatase 194 U/L (38-126); Anion Gap 2 mmol/L; Blood Urea Nitrogen 18 mg/dL (7-17); C Reactive Protein 69.8 mg/L (<10.0); Calcium 7.7 mg/dL (8.4-10.2); Carbon Dioxide 32 mmol/L (22-30); Chloride 103 mmol/L (98-107); Creatine Kinase 65 U/L (30-135); Glucose 111 mg/dL (74-99); LDH 1845 U/L (313-618); Non-African American GFR(CKD) >90 (>60 ml/min/1.73 sqM); Potassium 3.5 mmol/L (3.5-5.1); Sodium 137 mmol/L (137-145); Total Bilirubin 0.2 mg/dL (0.2-1.3)
[2020-11-06] MEDS ORDERED: Potassium Replacement Protocol 1 EACH MISC MISCELLANE PRN (06:47)
[2020-11-06] MEDS: POTASSIUM CHLORIDE 10 MEQ in WATER FOR INJECTION 1 100ML.BAG IVPB SCH ×4 (06:55→12:20)
[2020-11-06] MEDS: ENOXAPARIN 40 MG/0.4 ML SYRINGE SQ SCH (07:51)
[2020-11-06] MEDS: ASCORBIC ACID 500 MG TAB PO SCH (07:52)
[2020-11-06] MEDS: ZINC SULFATE 220 MG CAP PO SCH (07:52)
[2020-11-06] MEDS: CHOLECALCIFEROL 25 MCG (1000 IU) TABLET PO SCH (07:52)
[2020-11-06] MEDS: SUCRALFATE 1 GM TAB PO SCH ×4 (07:52→20:36)
[2020-11-06] MEDS: DULoxetine HCL 60 MG CAPSULE.DR PO SCH (07:52)
[2020-11-06] MEDS: buPROPion XL 150 MG TAB.ER.24H PO SCH (07:53)
[2020-11-06] MEDS: ARIPiprazole 5 MG TAB PO SCH (07:53)
[2020-11-06] MEDS: ALBUTEROL HFA INHALER INHALATION PRN ×4 (07:54→20:32)
[2020-11-06] MEDS: PANTOPRAZOLE 40 MG TABLET PO SCH (07:56)
[2020-11-06] MEDS ORDERED: VANCOMYCIN IV PER PHARMACY 1 EACH MISC MISCELLANE PRN (09:42)
[2020-11-06] MEDS: VANCOMYCIN 1,000 MG in SODIUM CHLORIDE 0.9% 250 ML IVPB SCH ×2 (10:22→19:11)
--- NOTE | 2020-11-06 11:40 | XR ---
EXAMINATION TYPE: XR chest 1V DATE OF EXAM: 11/06/2020 COMPARISON: 11/05/2020 INDICATION: covid TECHNIQUE: Single frontal view of the chest is obtained. FINDINGS: The heart size is normal. The pulmonary vasculature is normal. And lateral patchy infiltrates are present can be compatible with atypical pneumonia. IMPRESSION: 1. Patchy bilateral lung infiltrates greater in the lung bases
[2020-11-06 12:10] LABS: Glucose,Whole Blood 111 mg/dL (75-99)
[2020-11-06] MEDS: ALPRAZolam 0.25 MG TAB PO PRN (12:20)
[2020-11-06 12:33] LABS: Ferritin 115.8 ng/mL (10.0-291.0)
--- NOTE | 2020-11-06 12:49 | P.PN ---
Subjective Progress Note Date: 11/06/20 Principal diagnosis: CoVID 19 pneumonia This is a very pleasant 39-year-old female patient with a known history of GI bleeding with 2 nonbleeding antral ulcers per EGD, migraines, anxiety/depression, severe back pain, fibromyalgia, primary immunodeficiency disorder, irritable bowel syndrome, tobacco dependence, mild intermittent chronic bronchial asthma maintained on Advair. Presently 2 weeks ago she developed increasing shortness of breath cough congestion chills fever. She subsequently tested positive for CoVID 19 on 10/30/2020. Her shortness of breath continued to worsen she presented here to the emergency room last evening. Chest x-ray shows bilateral patchy infiltrates consistent with CoVID pneumonia as does CTA of the chest. No evidence of pulmonary embolism. She is seen today in consultation in the emergency room. She is currently sitting up at the bedside. She is quite hoarse, quite dyspneic on minimal exertion and conversation. Requiring 15 L high flow nasal cannula with nonrebreather mask to maintain O2 saturations in the 90s. White count 9.4. Hemoglobin 8.6. Platelets 284. Lymphocytes 0.6. D-dimer 1.06. Sodium 135. Potassium 4.0. Creatinine 0.88. Glucose 159. LDH 2067, C-reactive protein 320. The patient is seen today 11/05/2020 in follow-up in the intensive care unit. She is currently sitting up in bed. Awake and alert. Remains in mild respiratory distress. She is currently on AirVo at 60 L/m and 90% FiO2 along with a nonrebreather mask to maintain O2 saturations in the high 80s low 90s. Chest x-ray continues to show bilateral patchy infiltrates. Blood culture reveals no growth. White count 11.8. Hemoglobin 7.7. Lymphocytes 0.3. D- dimer 1.95. Sodium 135. Potassium 3.8. Creatinine 0.45. LDH 2243. C-react maicel protein 254. She did receive to tocilizumab. Remains on vitamin supplements, IV Solu-Medrol, Lovenox. The patient is seen today 11/06/2020 in follow-up in the intensive care unit. She is currently resting fairly comfortably in bed. She is on BiPAP at 12/5 and 100% FiO2 to maintain O2 saturations in the low 90s. Chest x-ray continues to revealed patchy bilateral lung infiltrates more so on the bases. She has 0.9 normal saline at 75 ML's per hour. Her preliminary blood cultures are positive for Staphylococcus aureus. White count 8.0. Hemoglobin 7.2. Lymphocytes 0.1. D-dimer 4.74. Sodium 137. Potassium 3.5. Creatinine 0.50. LDH 1845. C- reactive protein 69.8. She's been initiated on vancomycin and cefazolin. Continued on Lovenox, IV Solu Medrol, vitamin supplements. She did receive to tocilizumab. Objective - Vital Signs Vital signs: Vital Signs Temp 97.9 F 11/06/20 09:00 Pulse 94 11/06/20 10:00 Resp 31 H 11/06/20 10:00 BP 131/91 11/06/20 10:00 Pulse Ox 93 L 11/06/20 10:00 Intake & Output 11/05/20 11/06/20 11/06/20 18:59 06:59 18:59 Intake Total 1075 900 350 Output Total 990 715 220 Balance 85 185 130 Intake: IV 975 900 100 Sodium Chloride 0.9% 1, 975 900 100 000 ml @ 75 mls/hr IV . [id number] [facility] Rx#:[id number] Intake, IV Titration 250 Amount Potassium Chloride 10 meq 200 In Water For Injection 1 100ml.bag @ 100 mls/hr IVPB Q1HR [facility] Rx#: [id number] ceFAZolin 2 gm In Sodium 50 Chloride 0.9% 50 ml @ 100 mls/hr IVPB Q8HR [facility] Rx# :[id number] Oral 100 Output: Urine 990 715 220 Other: Voiding Method Indwelling Catheter Indwelling Catheter Indwelling Catheter - Exam GENERAL EXAM: Alert, pleasant 39-year-old female patient, currently on BiPAP 12/500% FiO2, in mild respiratory distress. HEAD: Normocephalic. EYES: Normal reaction of pupils, equal size. NOSE: Clear with pink turbinates. THROAT: No erythema or exudates. NECK: No masses, no JVD. CHEST: No chest wall deformity. LUNGS: Equal air entry with bilateral scattered rhonchi, crackles in the posterior bases. CVS: S1 and S2 normal with no audible murmur, regular rhythm. ABDOMEN: No hepatosplenomegaly, normal bowel sounds, no guarding or rigidity. SPINE: No scoliosis or deformity SKIN: No rashes CENTRAL NERVOUS SYSTEM: No focal deficits, tone is normal in all 4 extremities. EXTREMITIES: There is no peripheral edema. No clubbing, no cyanosis. Peripheral pulses are intact. - Labs CBC & Chem 7: 11/06/20 04:13 11/06/20 04:13 Labs: Abnormal Lab Results - Last 24 Hours (Table) 11/05/20 11/05/20 11/05/20 Range/Units 05:19 16:18 20:23 RBC (3.80-5.40) m/uL Hgb (11.4-16.0) gm/dL Hct (34.0-46.0) % RDW (11.5-15.5) % Lymphocytes # (1.0-4.8) k/uL D-Dimer (<0.60) mg/L FEU Carbon Dioxide (22-30) mmol/L BUN (7-17) mg/dL Creatinine (0.52-1.04) mg/dL Glucose (74-99) mg/dL POC Glucose (mg/dL) 123 H 135 H (75-99) mg/dL Calcium (8.4-10.2) mg/dL Alkaline Phosphatase (38-126) U/L Lactate Dehydrogenase (313-618) U/L C-Reactive Protein (<10.0) mg/L Total Protein (6.3-8.2) g/dL Albumin (3.5-5.0) g/dL Procalcitonin 0.44 H (0.02-0.09) ng/mL 11/06/20 11/06/20 11/06/20 Range/Units 04:13 04:13 04:13 RBC 2.65 L (3.80-5.40) m/uL Hgb 7.2 L (11.4-16.0) gm/dL Hct 22.7 L (34.0-46.0) % RDW 18.7 H (11.5-15.5) % Lymphocytes # 0.1 L (1.0-4.8) k/uL D-Dimer 4.74 H (<0.60) mg/L FEU Carbon Dioxide 32 H (22-30) mmol/L BUN 18 H (7-17) mg/dL Creatinine 0.50 L (0.52-1.04) mg/dL Glucose 111 H (74-99) mg/dL POC Glucose (mg/dL) (75-99) mg/dL Calcium 7.7 L (8.4-10.2) mg/dL Alkaline Phosphatase 194 H (38-126) U/L Lactate Dehydrogenase 1845 H (313-618) U/L C-Reactive Protein 69.8 H (<10.0) mg/L Total Protein 5.0 L (6.3-8.2) g/dL Albumin 2.6 L (3.5-5.0) g/dL Procalcitonin (0.02-0.09) ng/mL 11/06/20 11/06/20 Range/Units 06:27 12:08 RBC (3.80-5.40) m/uL Hgb (11.4-16.0) gm/dL Hct (34.0-46.0) % RDW (11.5-15.5) % Lymphocytes # (1.0-4.8) k/uL D-Dimer (<0.60) mg/L FEU Carbon Dioxide (22-30) mmol/L BUN (7-17) mg/dL Creatinine (0.52-1.04) mg/dL Glucose (74-99) mg/dL POC Glucose (mg/dL) 121 H 111 H (75-99) mg/dL Calcium (8.4-10.2) mg/dL Alkaline Phosphatase (38-126) U/L Lactate Dehydrogenase (313-618) U/L C-Reactive Protein (<10.0) mg/L Total Protein (6.3-8.2) g/dL Albumin (3.5-5.0) g/dL Procalcitonin (0.02-0.09) ng/mL Microbiology - Last 24 Hours (Table) 11/03/20 22:30 Blood Culture - Preliminary Blood No Growth after 48 hours 11/03/20 22:40 Blood Culture Gram Stain - Preliminary Blood Blood Culture - Preliminary Staphylococcus aureus Assessment and Plan Assessment: 1 Acute hypoxemic respiratory failure secondary to acute CoVID 19 pneumonia. Did receive tocilizumab. 2 Acute exacerbation of mild intermittent chronic bronchial asthma secondary to above 3 Anemia in a patient with a known history of nonbleeding ulcers with previous EGD and GI bleed 4 History of chronic tobacco dependence, vaping 5 History of anxiety/depression 6 History of immunodeficiency disorder 7 Irritable bowel syndrome 8 History of migraine 9 Fibromyalgia. 10 History of chronic back pain Plan: The patient was seen and evaluated by Dr. Conn Chest x-ray and labs reviewed Preliminary blood cultures positive for staph aureus Currently on vancomycin and cefazolin Remains on BiPAP 12/5 in 100% FiO2 Titrate down the FiO2 as tolerated Continue Lovenox, IV Solu-Medrol, vitamin supplement Repeat inflammatory markers in the a.m. We will continue to follow and make further recommendations based on her cli nical status Critical care time 38 minutes I, the cosigning physician, performed a history & physical examination of the patient. Lungs sounds bilateral scattered rhonchi, crackles in the posterior bases. Maintaining O2 saturations in the 90s onBiPap at 12/5 and 100% FiO2. I discussed the assessment and plan of care with my nurse practitioner, Cecelai Salgado. I attest to the above note as dictated by her.
[2020-11-06 14:01] LABS: ABG Base Excess 7.7 mmol/L; ABG HCO3 33 mmol/L (21-25); ABG Oxygen Saturation 92.1 % (94-97); ABG PCO2 54 mmHg (35-45); ABG PH 7.39 (7.35-7.45); ABG PO2 67 mmHg (83-108); ABG TCO2 34 mmol/L (19-24); Allen Test Performed? Yes
--- NOTE | 2020-11-06 15:03 | P.PN ---
Subjective Progress Note Date: 11/06/20 This is a 39-year-old female patient of Dr. Gonzalez with past medical history of GI bleed in 2008, July 2020 was admitted for GI bleed secondary to 2 nonbleeding antral ulcers requiring transfusion 2 units packed RBCs, tobacco use, alcohol abuse, recurrent depression, generalized anxiety disorder. Patient was diagnosed with COVID-19 on October 30. She complains of increasing shortness of breath, cough, congestion, fever and chills and hoarseness. She continued to worsen significantly over the past 2 days. She also complains of bloody sputum production. Patient came into [facility] emergency center for evaluation. Temperature 98.3, heart rate 102, respiratory rate 40, blood pressure 95/64, pulse ox 71%. EKG was a sinus rhythm no acute ST elevation. W BC 9.4, hemoglobin 8.6, platelet count 284. Sodium 135, potassium 2.8, chloride 102, CO2 21, BUN 19 creatinine 0.88. Blood sugar 92. AST 71, ALT 24, alkaline phosphatase 264 [place] phosphatase 264, LDH 2067, CA reactive protein 320.8. Lactic acid 3.1. CT angiogram of the chest reveals no evidence pulmonary embolism. Severe pulmonary interstitial and airspace edema. Chest x-ray reveals pulmonary interstitial pneumonia worse than recent exam. Some airspace component. Patient is status post 2 L of IV fluids, potassium replacement, Dilaudid, patient seen by pulmonary medicine and started on Tocilizumab. 11/05: Patient remains in the intensive care unit. She is a nonrebreather mask and AorVp and can maintain a pulse ox in the 90s. If she removes these, patient follows less than 70s. She is very anxious today and has many questions. She does have large number of psychiatric medications which have been resumed. We will also add and Xanax twice daily as needed. She has been afebrile, heart rate 89, blood pressure 116/79, pulse ox 95%. Repeat blood work reveals WBC 11.8, hemoglobin 7.7, platelet count 243. D-dimer 1.95. Sodium 135, electrolytes otherwise normal, BUN 18 creatinine 0.45. Blood sugars running between 117-129. AST 48, ALT 18, alkaline phosphatase 218, LDH 2243. C- reactive protein 254. Patient had 2 blood cultures, one is showing no growth at 24 hours and the second obtained at 2240 showing gram-positive cocci. She was started on vancomycin. 11/06: Patient remains in ICU, still on a BiPAP treatments,, continuously, patient did not have any meals for the past 72 hours secondary to hypoxemia and air hunger without the reading device. Patient has not slept well at all, cytokinin markers are elevated, blood culture growing Staphylococcus from specimen collected November 03 are pending sensitivity. Patient currently is on IV cefazolin, IV vancomycin, followed by infectious disease. So Medrol 60 mg every 6 hours, most of her oral medications cannot be complied upon secondary to hypoxemia event removed briefly. Hemoglobin at 7.2, blood gas shows pCO2 54, PaO2 of 67, 7.39 pH. Double basic count of under 10, creatinine of 0.5, LDH 1845, alkaline phosphatase 194. Albumin low at 2.6, blood pressure stable,Heart rate of 114, blood pressure of 135/90. Pulse ox 85-86 at BiPAP treatments. REVIEW OF SYSTEMS Constitutional: No fever, no chills, no night sweats. No weight change. No weakness, fatigue or lethargy. No daytime sleepiness. EENT: No headache. No blurred vision or double vision, no loss of vision. No loss of Hearing, no ringing in the ears, no dizziness. No nasal drainage or congestion. No epistaxis. No sore throat. Lungs: shortness of breath, cough, no sputum production. No wheezing. Patient is on BiPAP, in distress Cardiovascular: No chest pain, no lower extremity edema. No palpitations. No paroxysmal nocturnal dyspnea. No orthopnea. No lightheadedness or dizziness. No syncopal episodes. Abdominal: No abdominal pain. No nausea, vomiting. No diarrhea. No constipation. No bloody or tarry stools.. No loss of appetite. Genitourinary: No dysuria, increased frequency, urgency. No urinary retention. Musculoskeletal: No myalgias. No muscle weakness, no gait dysfunction, no frequent falls. No back pain. No neck pain. Integumentary: No wounds, no lesions. No rash or pruritus. No unusual bruis ing. No change in hair or nails. Neurologic: No aphasia. No facial droop. No change in mentation. No head injury. No headache. No paralysis. No paresthesia. Psychiatric: No depression. No anxiety. No mood swings. Endocrine: No abnormal blood sugars. No weight change. No excessive sweating or thirst. No cold intolerance. Objective - Vital Signs Vital signs: Vital Signs Temp 97.7 F 11/06/20 12:00 Pulse 114 H 11/06/20 14:00 Resp 34 H 11/06/20 14:00 BP 135/90 11/06/20 14:00 Pulse Ox 85 L 11/06/20 14:00 Intake & Output 11/05/20 11/06/20 11/06/20 18:59 06:59 18:59 Intake Total 1075 900 625 Output Total 990 715 370 Balance 85 185 255 Intake: IV 975 900 275 Sodium Chloride 0.9% 1, 975 900 275 000 ml @ 75 mls/hr IV . [id number] SHERRON Rx#:[id number] Intake, IV Titration 350 Amount Potassium Chloride 10 meq 300 In Water For Injection 1 100ml.bag @ 100 mls/hr IVPB Q1HR SHERRON Rx#: [id number] ceFAZolin 2 gm In Sodium 50 Chloride 0.9% 50 ml @ 100 mls/hr IVPB Q8HR SHERRON Rx# :[id number] Oral 100 Output: Urine 990 715 370 Other: Voiding Method Indwelling Catheter Indwelling Catheter Indwelling Catheter - Constitutional General appearance: Present: average body habitus, cooperative, mild distress, thin - EENT Eyes: Present: PERRLA, dentition normal ENT: Present: NA/AT, normal oropharynx - Neck Neck: Present: normal ROM - Respiratory Respiratory: bilateral: CTA, diminished - Cardiovascular Rhythm: regular Heart sounds: normal: S1, S2 Abnormal Heart Sounds: Absent: systolic murmur, diastolic murmur, rub, S3 Gallop, S4 Gallop, click, other - Gastrointestinal General gastrointestinal: Present: normal bowel sounds, soft - Integumentary Integumentary: Present: decreased turgor, normal - Neurologic Neurologic: Present: CNII-XII intact - Musculoskeletal Musculoskeletal: Present: gait normal, strength equal bilaterally - Psychiatric Psychiatric: Present: A&O x's 3, appropriate affect, intact judgment & insight - Labs CBC & Chem 7: 11/06/20 04:13 11/06/20 04:13 Labs: Abnormal Lab Results - Last 24 Hours (Table) 11/05/20 11/05/2011/06/21 Range/Units 16:18 20:23 04:13 RBC (3.80-5.40) m/uL Hgb (11.4-16.0) gm/dL Hct (34.0-46.0) % RDW (11.5-15.5) % Lymphocytes # (1.0-4.8) k/uL D-Dimer 4.74 H (<0.60) mg/L FEU ABG pCO2 (35-45) mmHg ABG pO2 (83-108) mmHg ABG HCO3 (21-25) mmol/L ABG Total CO2 (19-24) mmol/L ABG O2 Saturation (94-97) % Carbon Dioxide (22-30) mmol/L BUN (7-17) mg/dL Creatinine (0.52-1.04) mg/dL Glucose (74-99) mg/dL POC Glucose (mg/dL) 123 H 135 H (75-99) mg/dL Calcium (8.4-10.2) mg/dL Alkaline Phosphatase (38-126) U/L Lactate Dehydrogenase (313-618) U/L C-Reactive Protein (<10.0) mg/L Total Protein (6.3-8.2) g/dL Albumin (3.5-5.0) g/dL 11/06/20 11/06/20 11/06/20 Range/Units 04:13 04:13 06:27 RBC 2.65 L (3.80-5.40) m/uL Hgb 7.2 L (11.4-16.0) gm/dL Hct 22.7 L (34.0-46.0) % RDW 18.7 H (11.5-15.5) % Lymphocytes # 0.1 L (1.0-4.8) k/uL D-Dimer (<0.60) mg/L FEU ABG pCO2 (35-45) mmHg ABG pO2 (83-108) mmHg ABG HCO3 (21-25) mmol/L ABG Total CO2 (19-24) mmol/L ABG O2 Saturation (94-97) % Carbon Dioxide 32 H (22-30) mmol/L BUN 18 H (7-17) mg/dL Creatinine 0.50 L (0.52-1.04) mg/dL Glucose 111 H (74-99) mg/dL POC Glucose (mg/dL) 121 H (75-99) mg/dL Calcium 7.7 L (8.4-10.2) mg/dL Alkaline Phosphatase 194 H (38-126) U/L Lactate Dehydrogenase 1845 H (313-618) U/L C-Reactive Protein 69.8 H (<10.0) mg/L Total Protein 5.0 L (6.3-8.2) g/dL Albumin 2.6 L (3.5-5.0) g/dL 11/06/20 11/06/20 Range/Units 12:08 13:59 RBC (3.80-5.40) m/uL Hgb (11.4-16.0) gm/dL Hct (34.0-46.0) % RDW (11.5-15.5) % Lymphocytes # (1.0-4.8) k/uL D-Dimer (<0.60) mg/L FEU ABG pCO2 54 H (35-45) mmHg ABG pO2 67 L (83-108) mmHg ABG HCO3 33 H (21-25) mmol/L ABG Total CO2 34 H (19-24) mmol/L ABG O2 Saturation 92.1 L (94-97) % Carbon Dioxide (22-30) mmol/L BUN (7-17) mg/dL Creatinine (0.52-1.04) mg/dL Glucose (74-99) mg/dL POC Glucose (mg/dL) 111 H (75-99) mg/dL Calcium (8.4-10.2) mg/dL Alkaline Phosphatase (38-126) U/L Lactate Dehydrogenase (313-618) U/L C-Reactive Protein (<10.0) mg/L Total Protein (6.3-8.2) g/dL Albumin (3.5-5.0) g/dL Microbiology - Last 24 Hours (Table) 11/03/20 22:30 Blood Culture - Preliminary Blood No Growth after 48 hours 11/03/20 22:40 Blood Culture Gram Stain - Preliminary Blood Blood Culture - Preliminary Staphylococcus aureus Assessment and Plan Plan: 1. Acute hypoxic respiratory failure , acute respiratory distress syndrome sec ondary to acute Covid 19 pneumonia. Consult with pulmonary medicine appreciated. Status post Tocilizumab, continue Lovenox 40 mg subcu daily, Solu- Medrol 60 mg IV push every 6 hours, zinc and vitamin supplements. Continue O2 therapy. Currently on BiPAP treatments, 2. Acute exacerbation of mild intermittent bronchial asthma. 3. Staph bacteremia, on vancomycin and cefazolin, infectious disease following 3. Chronic anemia most likely due to history of bleeding ulcers and alcohol abuse. Suspect iron deficiency, might need iron infusion, check for iron saturation and 90 urine 4. Tobacco use and dependence including taping. 5. Daily alcohol use/abuse. Patient apparently has had no alcohol intake for 7 days. Monitor closely for DTs 6. Recurrent depression and generalized anxiety disorder. Continue Abilify 7.5 mg daily, Wellbutrin 150 mg daily, BuSpar 10 mg as needed for anxiety, Cymbalta 60 mg daily. 7. Migraine headaches. Continue Fioricet as needed. Hold Inderal 60 mg daily. 8. Gastroesophageal reflux disease with history of bleeding ulcers. Continue Protonix 40 mg daily and Carafate 1 g 4 times daily. 10. Moderate protein calorie malnutrition, secondary to poor oral intake from Covid, patient might need a massive effusion, however he would try oral feedings with protein supplementation once able to get off BiPAP transiently 10. DVT prophylaxis. Lovenox.
[2020-11-06] MEDS ORDERED: LORazepam 2 MG/ML INJ IV STA (15:07)
[2020-11-06 17:59] LABS: ABG Base Excess 8.7 mmol/L; ABG HCO3 33 mmol/L (21-25); ABG PCO2 52 mmHg (35-45); ABG PH 7.42 (7.35-7.45); ABG TCO2 35 mmol/L (19-24); Allen Test Performed? Yes
[2020-11-06 18:03] LABS: ABG PO2 41 mmHg (83-108)
[2020-11-06] MEDS ORDERED: propofoL 100 ML IV ONE (18:10)
[2020-11-06] MEDS ORDERED: CISATRACURIUM 2 MG/ML 5 ML VIAL IV ONE (18:48)
[2020-11-06] MEDS ORDERED: HYDROmorphone 2 MG/ML 1 ML SYRINGE IVP PRN (18:50)
[2020-11-06 18:58] LABS: % Iron Saturation 15.99 (12.00-45.00)
--- NOTE | 2020-11-06 19:08 | XR ---
EXAMINATION TYPE: XR chest 1V portable DATE OF EXAM: 11/06/2020 COMPARISON: Today HISTORY: Respiratory failure TECHNIQUE: FINDINGS: There is endotracheal tube 3 mm from the ramy. There is moderately severe pulmonary edema. There are chest leads. There is nasogastric tube in the s tomach. IMPRESSION: There is increased pulmonary edema compared to exam this morning.
[2020-11-06] MEDS: CISATRACURIUM 200 MG in SODIUM CHLORIDE 0.9% 180 ML IV SCH (19:50)
[2020-11-06] MEDS: ARTIFICIAL TEARS-HYPROMELLOSE DROPS 15 ML BTL BOTH EYES SCH ×2 (20:17→23:05)
[2020-11-06 20:24] LABS: Glucose,Whole Blood 121 mg/dL (75-99)
[2020-11-06] MEDS: CHLORHEXIDINE GLUCONATE 15 ML CUP MUCOUS MEM SCH (20:35)
[2020-11-06] MEDS: MELATONIN 3 MG TABLET PO SCH (20:36)
[2020-11-06 20:57] LABS: ABG Base Excess 7.7 mmol/L; ABG HCO3 32 mmol/L (21-25); ABG Oxygen Saturation 97.9 % (94-97); ABG PCO2 49 mmHg (35-45); ABG PH 7.42 (7.35-7.45); ABG PO2 99 mmHg (83-108); ABG TCO2 34 mmol/L (19-24); Allen Test Performed? Yes
[2020-11-07 00:01] LABS: Glucose,Whole Blood 129 mg/dL (75-99)
[2020-11-07] MEDS: VANCOMYCIN 1,000 MG in SODIUM CHLORIDE 0.9% 250 ML IVPB SCH ×3 (02:13→19:53)
[2020-11-07] MEDS: MORPHINE SULFATE 4 MG/ML SYRINGE IVP PRN ×5 (02:24→23:47)
--- NOTE | 2020-11-07 03:44 | XR ---
EXAM: XR Chest, 1 View CLINICAL HISTORY: ITS.REASON XR Reason: Tube placement TECHNIQUE: Frontal view of the chest. COMPARISON: Earlier chest x-ray of 11/06/2020. FINDINGS: Lungs: Extensive consolidation throughout both lungs most notably at the left lower lobe. Pleural space: Moderate to large right-sided pneumothorax is now evident. Moderate right pleural effusion appeared Heart: Unremarkable. No cardiomegaly. Mediastinum: Unremarkable. Bones/joints: Unremarkable. Tubes, lines and devices: Endotracheal tube is noted in place with its tip near the right main bronchus. NG tube is noted in place with its tip well below the diaphragm. IMPRESSION: 1. Moderate to large right pneumothorax. 2. Tip of the endotracheal tube is near the right mainstem bronchus and should be withdrawn by 2 cm. 3. Extensive diffuse bilateral airspace disease suggestive of bilateral pneumonias. 4. Osteopenia. 5. Moderate right pleural effusion. <MYCVCSECTION> Communications: 11/07/20 03:46 Call Doctor Regarding Pneumothorax, called Dr. Ribeiro on 11/07 03:47 (-04:00)
[2020-11-07 03:59] LABS: Anisocytosis Slight; Basophils % (A) 0 %; Eosinophils % (A) 0 %; HCT 22.1 % (34.0-46.0); HGB 7.3 gm/dL (11.4-16.0); Hypochromasia Moderate; Lymphocytes # (A) 0.2 k/uL (1.0-4.8); Lymphocytes % (A) 3 %; MCH 28.2 pg (25.0-35.0); MCHC 32.9 g/dL (31.0-37.0); MCV 85.7 fL (80.0-100.0); Mean Platelet Volume 7.9; Monocytes # (A) 0.1 k/uL (0-1.0); Monocytes % (A) 3 %; Neutrophils # (A) 4.9 k/uL (1.3-7.7); Neutrophils % (A) 92 %; Platelet Count 132 k/uL (150-450); Poikilocytosis Slight; RBC 2.58 m/uL (3.80-5.40); RDW 18.4 % (11.5-15.5); WBC 5.3 k/uL (3.8-10.6)
[2020-11-07 04:12] LABS: ALT 12 U/L (4-34); AST 26 U/L (14-36); African American GFR (CKD) >90 (>60 ml/min/1.73 sqM); Albumin 2.5 g/dL (3.5-5.0); Alkaline Phosphatase 180 U/L (38-126); Anion Gap 2 mmol/L; Blood Urea Nitrogen 21 mg/dL (7-17); C Reactive Protein 36.3 mg/L (<10.0); Calcium 7.5 mg/dL (8.4-10.2); Carbon Dioxide 32 mmol/L (22-30); Chloride 104 mmol/L (98-107); Creatine Kinase 30 U/L (30-135); Glucose 128 mg/dL (74-99); LDH 1630 U/L (313-618); Non-African American GFR(CKD) >90 (>60 ml/min/1.73 sqM); Potassium 3.3 mmol/L (3.5-5.1); Sodium 138 mmol/L (137-145); Total Bilirubin 0.3 mg/dL (0.2-1.3); Total Protein 4.8 g/dL (6.3-8.2)
--- NOTE | 2020-11-07 04:54 | XR ---
EXAM: XR Chest, 1 View CLINICAL HISTORY: ITS.REASON XR Reason: Chest tube placement TECHNIQUE: Frontal view of the chest. COMPARISON: 11/07/2020 at 3:28 AM FINDINGS: Lungs: Unchanged patchy opacities in the bilateral lungs, most prominent in the left base. Pleural space: Unremarkable. Decreased moderate right pneumothorax in the right apex, now small. Heart: Unchanged cardiac contour. Mediastinum: Unremarkable. Bones/joints: Unremarkable. Lines and tubes: Endotracheal tube terminates 1.8 cm above the level of the ramy. Right-sided thoracostomy tube terminates in the medial right apex. Nasogastric tube terminates below field of view in the left upper quadrant. IMPRESSION: 1. Interval placement of right-sided chest tube with decreased right pneumothorax, now small. 2. Unchanged patchy opacities in the bilateral lungs, most prominent in the left base.
[2020-11-07] MEDS: ARTIFICIAL TEARS-HYPROMELLOSE DROPS 15 ML BTL BOTH EYES SCH ×6 (05:00→23:48)
[2020-11-07 05:14] LABS: ABG Base Excess 7.1 mmol/L; ABG HCO3 32 mmol/L (21-25); ABG Oxygen Saturation 95.7 % (94-97); ABG PCO2 52 mmHg (35-45); ABG PO2 81 mmHg (83-108); ABG TCO2 34 mmol/L (19-24); Allen Test Performed? Yes
[2020-11-07 05:51] LABS: Glucose,Whole Blood 136 mg/dL (75-99)
[2020-11-07] MEDS ORDERED: POTASSIUM BICARBONATE/CIT AC 20 MEQ TABLET.EFF NG-TUBE SCH (06:00)
[2020-11-07] MEDS: POTASSIUM BICARBONATE/CIT AC 20 MEQ TABLET.EFF NG-TUBE SCH ×2 (06:07→07:55)
[2020-11-07] MEDS: INSULIN ASPART (NovoLOG) 100 UNIT/ML VIAL SQ SCH ×4 (06:07→23:49)
[2020-11-07] MEDS: methylPREDNISolone SOD SUCCI 125 MG/2 ML VIAL IV SCH ×4 (06:07→23:47)
[2020-11-07] MEDS: SODIUM CHLORIDE 0.9% 1,000 ML IV SCH ×2 (06:08→20:40)
[2020-11-07] MEDS: SUCRALFATE 1 GM TAB PO SCH ×4 (06:47→20:39)
[2020-11-07] MEDS: PANTOPRAZOLE 40 MG TABLET PO SCH (06:47)
[2020-11-07] MEDS: ALBUTEROL HFA INHALER INHALATION PRN ×3 (07:43→19:00)
[2020-11-07] MEDS: CHOLECALCIFEROL 25 MCG (1000 IU) TABLET PO SCH (08:29)
[2020-11-07] MEDS: ARIPiprazole 5 MG TAB PO SCH (08:29)
[2020-11-07] MEDS: ASCORBIC ACID 500 MG TAB PO SCH (08:29)
[2020-11-07] MEDS: buPROPion XL 150 MG TAB.ER.24H PO SCH (08:29)
[2020-11-07] MEDS: CHLORHEXIDINE GLUCONATE 15 ML CUP MUCOUS MEM SCH ×2 (08:29→20:39)
[2020-11-07] MEDS: ENOXAPARIN 40 MG/0.4 ML SYRINGE SQ SCH (08:30)
[2020-11-07] MEDS: ZINC SULFATE 220 MG CAP PO SCH (08:30)
[2020-11-07] MEDS: DULoxetine HCL 60 MG CAPSULE.DR PO SCH (08:30)
--- NOTE | 2020-11-07 10:06 | XR ---
EXAMINATION TYPE: XR chest 1V portable DATE OF EXAM: 11/07/2020 COMPARISON: 11/07/2020 INDICATION: Line placement TECHNIQUE: Single frontal view of the chest is obtained. FINDINGS: The heart size is normal. The pulmonary vasculature is prominent. Diffuse infiltrate is present throughout the bilateral lung eng. Findings are worsening. Right api joana pneumothorax is diminished. Right-sided chest tube remains present. Endotracheal tube tip is abov e the ramy. Nasogastric tube transverses the thorax. Left central venous catheter tip is within the proximal right atrium. IMPRESSION: 1. Lines and catheters discussed above. 2. Right apical pneumothorax diminished from comparison. 3. Diffuse patchy infiltrates present bilaterally.
[2020-11-07 11:08] LABS: Glucose,Whole Blood 129 mg/dL (75-99)
[2020-11-07 11:10] LABS: ABG Base Excess 8.4 mmol/L; ABG HCO3 33 mmol/L (21-25); ABG Oxygen Saturation 97.5 % (94-97); ABG PCO2 53 mmHg (35-45); ABG PO2 95 mmHg (83-108); ABG TCO2 35 mmol/L (19-24); Allen Test Performed? Yes
--- NOTE | 2020-11-07 13:23 | P.PN ---
Subjective Progress Note Date: 11/07/20 Principal diagnosis: Acute respiratory failure. This is a very pleasant 39-year-old female patient with a known history of GI bleeding with 2 nonbleeding antral ulcers per EGD, migraines, anxiety/depression, severe back pain, fibromyalgia, primary immunodeficiency disorder, irritable bowel syndrome, tobacco dependence, mild intermittent chronic bronchial asthma maintained on Advair. Presently 2 weeks ago she developed increasing shortness of breath cough congestion chills fever. She subsequently tested positive for CoVID 19 on 10/30/2020. Her shortness of breath continued to worsen she presented here to the emergency room last evening. Chest x-ray shows bilateral patchy infiltrates consistent with CoVID pneumonia as does CTA of the chest. No evidence of pulmonary embolism. She is seen today in consultation in the emergency room. She is currently sitting up at the bedside. She is quite hoarse, quite dyspneic on minimal exertion and conversation. Requiring 15 L high flow nasal cannula with nonrebreather mask to maintain O2 saturations in the 90s. White count 9.4. Hemoglobin 8.6. Platelets 284. Lymphocytes 0.6. D-dimer 1.06. Sodium 135. Potassium 4.0. Creatinine 0.88. Glucose 159. LDH 2067, C-reactive protein 320. The patient is seen today 11/05/2020 in follow-up in the intensive care unit. She is currently sitting up in bed. Awake and alert. Remains in mild respiratory distress. She is currently on AirVo at 60 L/m and 90% FiO2 along with a nonrebreather mask to maintain O2 saturations in the high 80s low 90s. Chest x-ray continues to show bilateral patchy infiltrates. Blood culture reveals no growth. White count 11.8. Hemoglobin 7.7. Lymphocytes 0.3. D- dimer 1.95. Sodium 135. Potassium 3.8. Creatinine 0.45. LDH 2243. C- reactive protein 254. She did receive to tocilizumab. Remains on vitamin supplements, IV Solu-Medrol, Lovenox. The patient is seen today 11/06/2020 in follow-up in the intensive care unit. She is currently resting fairly comfortably in bed. She is on BiPAP at 12/5 and 100% FiO2 to maintain O2 saturations in the low 90s. Chest x-ray continues to revealed patchy bilateral lung infiltrates more so on the bases. She has 0.9 normal saline at 75 ML's per hour. Her preliminary blood cultures are positive for Staphylococcus aureus. White count 8.0. Hemoglobin 7.2. Lymphocytes 0.1. D-dimer 4.74. Sodium 137. Potassium 3.5. Creatinine 0.50. LDH 1845. C- reactive protein 69.8. She's been initiated on vancomycin and cefazolin. Continued on Lovenox, IV Solu Medrol, vitamin supplements. She did receive to tocilizumab. Progress note dated 11/07/2020. 39-year-old female who we saw in consultation at couple days back. We saw her initially on November 04. We actually saw her in the emergency department. The patient was moved to the intensive care unit, after she developed worsening hypoxemic respiratory failure. His admitted with a diagnosis of COVID 19 pneumonia. Yesterday, during the day, the patient developed worsening respiratory status, and was intubated on November 06. Last night, after midnight, her respiratory status declined again, while on the ventilator, it was discovered that she has significant right-sided pneumothorax. Emergency room physicians were kind enough to come down and place a chest tube in. She remains on the mechanical ventilator. She is on the volume assist control mode rate of 24, FiO2 is 80%, PEEP of 10, and a tidal volume of 400. Blood gases show a PaO2 of 81, PaCO2 of 51, and a pH of 7.4. Currently, she is on saline at 75 mL an ho ur, Nimbex at 3 mcg/kg/m, [id number] monitoring, and propofol, at 60 g kilogram per minute. I've asked the nurse to make sure that dietary starts tube feeds on this patient, and, we place a right radial art line, and a left subclavian triple-lumen catheter today. There is still a small pneumothorax on the right side. There is a intermittent leak noted from that chest tube. For the COVID 19 pneumonitis, the patient received Lovenox, Solu-Medrol, vitamin C, vitamin D3, and zinc, as well as TOCI. Labs today show a white count of 5.3, hemoglobin 7.3, hematocrit 22.1, and platelet count 132,000. Repeat blood gases show a PaO2 of 95, a PaCO2 of 53, and a pH of 7.4. I've asked respiratory therapy to continue to wean the FiO2. Sodium 138, potassium 3.3, chlorides 104, CO2 32, anion gap 2, V1 21, and creatinine 0.4. C-reactive protein is 36.3, LDH is 1630. Chest x-ray shows a right-sided chest tube, of the tracheal ramy, and diffuse bilateral infiltrates. Objective - Vital Signs Vital signs: Vital Signs Temp 97.7 F 11/07/20 08:00 Pulse 94 11/07/20 11:30 Resp 24 11/07/20 11:46 BP 114/80 11/07/20 09:00 Pulse Ox 93 L 11/07/20 11:30 Intake & Output 11/06/20 11/07/20 11/07/20 18:59 06:59 18:59 Intake Total 1000 1138.808 450 Output Total 695 643 305 Balance 305 495.808 145 Intake: IV 650 900 450 Sodium Chloride 0.9% 1, 650 900 450 000 ml @ 75 mls/hr IV . [id number] [facility] Rx#:[id number] Intake, IV Titration 350 238.808 Amount Cisatracurium 200 mg In 47.291 Sodium Chloride 0.9% 180 ml @ 2 MCG/KG/MIN 7.076 mls/hr IV .Q24H [facility] Rx#: [id number] Potassium Chloride 10 meq 300 In Water For Injection 1 100ml.bag @ 100 mls/hr IVPB Q1HR [facility] Rx#: [id number] ceFAZolin 2 gm In Sodium 50 Chloride 0.9% 50 ml @ 100 mls/hr IVPB Q8HR [facility] Rx# :[id number] propofoL 1,000 mg In 191.517 Empty Bag 1 bag @ Titrate IV .Q0M [facility] Rx#: [id number] Output: Chest Tube Drainage 58 30 Chest Tube Right 58 30 Urine 695 585 275 Other: Voiding Method Indwelling Catheter Indwelling Catheter Indwelling Catheter ABP, PAP, CO, CI - Last Documented Arterial Blood Pressure 131/79 - Exam The patient is currently sedated and paralyzed. There is an orally placed endotracheal tube, and NG tube. HEENT examination is grossly unremarkable. Mucous membranes are moist. Neck supple. Full range of motion. No adenopathy thyromegaly or neck vein distention. Cardiovascular examination reveals regular rhythm rate. S1-S2 normal. No S3 or S4. No discernible murmur noted. Heart sounds are distant. Heart rate is 94 bpm. Lungs reveal bilateral coarse rhonchi. No wheezes or crackles. Breath sounds are essentially equal bilaterally. A right-sided chest tube is noted. Abdomen soft and bowel sounds are not heard. No masses or tenderness. Extremities are intact. No cyanosis clubbing or edema. Skin is without rash or lesion. Neurologic examination is unable to be assessed given her current level of sedation and paralysis. - Labs CBC & Chem 7: 11/07/20 03:18 11/07/20 03:18 Labs: Abnormal Lab Results - Last 24 Hours (Table) 11/06/20 11/06/20 11/06/20 Range/Units 13:59 17:55 20:23 RBC (3.80-5.40) m/uL Hgb (11.4-16.0) gm/dL Hct (34.0-46.0) % RDW (11.5-15.5) % Plt Count (150-450) k/uL Lymphocytes # (1.0-4.8) k/uL ABG pCO2 54 H 52 H (35-45) mmHg ABG pO2 67 L 41 L* (83-108) mmHg ABG HCO3 33 H 33 H (21-25) mmol/L ABG Total CO2 34 H 35 H (19-24) mmol/L ABG O2 Saturation 92.1 L 71.0 L (94-97) % Potassium (3.5-5.1) mmol/L Carbon Dioxide (22-30) mmol/L BUN (7-17) mg/dL Creatinine (0.52-1.04) mg/dL Glucose (74-99) mg/dL POC Glucose (mg/dL) 121 H (75-99) mg/dL Calcium (8.4-10.2) mg/dL Alkaline Phosphatase (38-126) U/L Lactate Dehydrogenase (313-618) U/L C-Reactive Protein (<10.0) mg/L Total Protein (6.3-8.2) g/dL Albumin (3.5-5.0) g/dL 11/06/20 11/07/20 11/07/20 Range/Units 20:55 00:00 03:18 RBC (3.80-5.40) m/uL Hgb (11.4-16.0) gm/dL Hct (34.0-46.0) % RDW (11.5-15.5) % Plt Count (150-450) k/uL Lymphocytes # (1.0-4.8) k/uL ABG pCO2 49 H (35-45) mmHg ABG pO2 (83-108) mmHg ABG HCO3 32 H (21-25) mmol/L ABG Total CO2 34 H (19-24) mmol/L ABG O2 Saturation 97.9 H (94-97) % Potassium 3.3 L (3.5-5.1) mmol/L Carbon Dioxide 32 H (22-30) mmol/L BUN 21 H (7-17) mg/dL Creatinine 0.40 L (0.52-1.04) mg/dL Glucose 128 H (74-99) mg/dL POC Glucose (mg/dL) 129 H (75-99) mg/dL Calcium 7.5 L (8.4-10.2) mg/dL Alkaline Phosphatase 180 H (38-126) U/L Lactate Dehydrogenase 1630 H (313-618) U/L C-Reactive Protein 36.3 H (<10.0) mg/L Total Protein 4.8 L (6.3-8.2) g/dL Albumin 2.5 L (3.5-5.0) g/dL 11/07/20 11/07/20 11/07/20 Range/Units 03:18 05:10 05:49 RBC 2.58 L (3.80-5.40) m/uL Hgb 7.3 L (11.4-16.0) gm/dL Hct 22.1 L (34.0-46.0) % RDW 18.4 H (11.5-15.5) % Plt Count 132 L (150-450) k/uL Lymphocytes # 0.2 L (1.0-4.8) k/uL ABG pCO2 52 H (35-45) mmHg ABG pO2 81 L (83-108) mmHg ABG HCO3 32 H (21-25) mmol/L ABG Total CO2 34 H (19-24) mmol/L ABG O2 Saturation (94-97) % Potassium (3.5-5.1) mmol/L Carbon Dioxide (22-30) mmol/L BUN (7-17) mg/dL Creatinine (0.52-1.04) mg/dL Glucose (74-99) mg/dL POC Glucose (mg/dL) 136 H (75-99) mg/dL Calcium (8.4-10.2) mg/dL Alkaline Phosphatase (38-126) U/L Lactate Dehydrogenase (313-618) U/L C-Reactive Protein (<10.0) mg/L Total Protein (6.3-8.2) g/dL Albumin (3.5-5.0) g/dL 11/07/20 11/07/20 Range/Units 11:02 11:06 RBC (3.80-5.40) m/uL Hgb (11.4-16.0) gm/dL Hct (34.0-46.0) % RDW (11.5-15.5) % Plt Count (150-450) k/uL Lymphocytes # (1.0-4.8) k/uL ABG pCO2 53 H (35-45) mmHg ABG pO2 (83-108) mmHg ABG HCO3 33 H (21-25) mmol/L ABG Total CO2 35 H (19-24) mmol/L ABG O2 Saturation 97.5 H (94-97) % Potassium (3.5-5.1) mmol/L Carbon Dioxide (22-30) mmol/L BUN (7-17) mg/dL Creatinine (0.52-1.04) mg/dL Glucose (74-99) mg/dL POC Glucose (mg/dL) 129 H (75-99) mg/dL Calcium (8.4-10.2) mg/dL Alkaline Phosphatase (38-126) U/L Lactate Dehydrogenase (313-618) U/L C-Reactive Protein (<10.0) mg/L Total Protein (6.3-8.2) g/dL Albumin (3.5-5.0) g/dL Microbiology - Last 24 Hours (Table) 11/03/20 22:40 Blood Culture Gram Stain - Final Blood Blood Culture - Final Staphylococcus aureus 11/03/20 22:30 Blood Culture - Preliminary Blood No Growth after 72 hours Assessment and Plan Assessment: 1 Acute hypoxemic respiratory failure secondary to acute COVID 19 pneumonia. Did receive tocilizumab. Status post worsening respiratory status, with intubation on November 06, and right chest tube insertion on November 07. 2 Acute exacerbation of mild intermittent chronic bronchial asthma secondary to above. 3 Anemia in a patient with a known history of nonbleeding ulcers with previous EGD and GI bleed. 4 History of chronic tobacco dependence, vaping. 5 History of anxiety/depression. 6 History of immunodeficiency disorder. 7 Irritable bowel syndrome. 8 History of migraine. 9 Fibromyalgia. 10 History of chronic back pain. Plan: Plan dated 11/07/2020. A chest tube was placed on the right side yesterday, after midnight, as of a right pneumothorax. The patient was intubated on November 06 for worsening respiratory failure, and profound hypoxemia. She remains on mechanical ventilator, and is sedated and paralyzed. Tube feeds will be started today. A right radial art line was placed as well as a left subclavian triple-lumen catheter. She remains on Nimbex at 3 mcg/kg/m, propofol at 60 mcg/kg/m. Repeat blood gases were reasonable. Respiratory therapist were instructed to wean the FiO2. The patient is receiving all appropriate medications including TOCI. Prognosis remains guarded. We will continue to follow. Additional recommendations and suggestions are forthcoming. Time with Patient: Greater than 30
--- NOTE | 2020-11-07 13:59 | P.PN ---
Subjective Progress Note Date: 11/07/20 This is a 39-year-old female patient of Dr. Gonzalez with past medical history of GI bleed in 2008, July 2020 was admitted for GI bleed secondary to 2 nonbleeding antral ulcers requiring transfusion 2 units packed RBCs, tobacco use, alcohol abuse, recurrent depression, generalized anxiety disorder. Patient was diagnosed with COVID-19 on October 30. She complains of increasing shortness of breath, cough, congestion, fever and chills and hoarseness. She continued to worsen significantly over the past 2 days. She also complains of bloody sputum production. Patient came into [facility] emergency center for evaluation. Temperature 98.3, heart rate 102, respiratory rate 40, blood pressure 95/64, pulse ox 71%. EKG was a sinus rhythm no acute ST elevation. W BC 9.4, hemoglobin 8.6, platelet count 284. Sodium 135, potassium 2.8, chloride 102, CO2 21, BUN 19 creatinine 0.88. Blood sugar 92. AST 71, ALT 24, alkaline phosphatase 264 [place] phosphatase 264, LDH 2067, CA reactive protein 320.8. Lactic acid 3.1. CT angiogram of the chest reveals no evidence pulmonary embolism. Severe pulmonary interstitial and airspace edema. Chest x-ray reveals pulmonary interstitial pneumonia worse than recent exam. Some airspace component. Patient is status post 2 L of IV fluids, potassium replacement, Dilaudid, patient seen by pulmonary medicine and started on Tocilizumab. 11/05: Patient remains in the intensive care unit. She is a nonrebreather mask and AorVp and can maintain a pulse ox in the 90s. If she removes these, patient follows less than 70s. She is very anxious today and has many questions. She does have large number of psychiatric medications which have been resumed. We will also add and Xanax twice daily as needed. She has been afebrile, heart rate 89, blood pressure 116/79, pulse ox 95%. Repeat blood work reveals WBC 11.8, hemoglobin 7.7, platelet count 243. D-dimer 1.95. Sodium 135, electrolytes otherwise normal, BUN 18 creatinine 0.45. Blood sugars running between 117-129. AST 48, ALT 18, alkaline phosphatase 218, LDH 2243. C- reactive protein 254. Patient had 2 blood cultures, one is showing no growth at 24 hours and the second obtained at 2240 showing gram-positive cocci. She was started on vancomycin. 11/06: Patient remains in ICU, still on a BiPAP treatments,, continuously, patient did not have any meals for the past 72 hours secondary to hypoxemia and air hunger without the reading device. Patient has not slept well at all, cytokinin markers are elevated, blood culture growing Staphylococcus from specimen collected November 03 are pending sensitivity. Patient currently is on IV cefazolin, IV vancomycin, followed by infectious disease. So Medrol 60 mg every 6 hours, most of her oral medications cannot be complied upon secondary to hypoxemia event removed briefly. Hemoglobin at 7.2, blood gas shows pCO2 54, PaO2 of 67, 7.39 pH. Double basic count of under 10, creatinine of 0.5, LDH 1845, alkaline phosphatase 194. Albumin low at 2.6, blood pressure stable,Heart rate of 114, blood pressure of 135/90. Pulse ox 85-86 at BiPAP treatments. 11/07 yesterday afternoon, patient required placement of right chest tube se condary to spontaneous pneumothorax placed by the ER doctor,, patient has worsening respiratory status, and was intubated by the ER physician currently with tidal volume of 40, PEEP of 10, assist control rate of 24, FiO2 of 80%. There is residual small pneumothorax right side, there is a left subclavian triple-lumen placed by Dr. Harrington today. There is consult for nutrition, has an OG tube, for which feedings would be started once completed. Chest x-ray shows bilateral diffuse infiltrates, creatinine of 0.4, LDH of 1630, CRP of 36 platelet count 132, hemoglobin 7.3 REVIEW OF SYSTEMS Constitutional: No fever, no chills, no night sweats. No weight change. No weakness, fatigue or lethargy. No daytime sleepiness. EENT: No headache. No blurred vision or double vision, no loss of vision. No loss of Hearing, no ringing in the ears, no dizziness. No nasal drainage or congestion. No epistaxis. No sore throat. Lungs: shortness of breath, cough, no sputum production. No wheezing. Patient is on BiPAP, in distress Cardiovascular: No chest pain, no lower extremity edema. No palpitations. No paroxysmal nocturnal dyspnea. No orthopnea. No lightheadedness or dizziness. No syncopal episodes. Abdominal: No abdominal pain. No nausea, vomiting. No diarrhea. No constipation. No bloody or tarry stools.. No loss of appetite. Genitourinary: No dysuria, increased frequency, urgency. No urinary retention. Musculoskeletal: No myalgias. No muscle weakness, no gait dysfunction, no frequent falls. No back pain. No neck pain. Integumentary: No wounds, no lesions. No rash or pruritus. No unusual bruising. No change in hair or nails. Neurologic: No aphasia. No facial droop. No change in mentation. No head injury. No headache. No paralysis. No paresthesia. Psychiatric: No depression. No anxiety. No mood swings. Endocrine: No abnormal blood sugars. No weight change. No excessive sweating or thirst. No cold intolerance. Objective - Vital Signs Vital signs: Vital Signs Temp 97.7 F 11/07/20 08:00 Pulse 94 11/07/20 13:00 Resp 24 11/07/20 13:00 BP 114/80 11/07/20 09:00 Pulse Ox 92 L 11/07/20 13:00 Intake & Output 11/06/20 11/07/20 11/07/20 18:59 06:59 18:59 Intake Total 1000 1138.808 525 Output Total 695 643 350 Balance 305 495.808 175 Intake: IV 650 900 525 Sodium Chloride 0.9% 1, 650 900 525 000 ml @ 75 mls/hr IV . [id number] [facility] Rx#:[id number] Intake, IV Titration 350 238.808 Amount Cisatracurium 200 mg In 47.291 Sodium Chloride 0.9% 180 ml @ 2 MCG/KG/MIN 7.076 mls/hr IV .Q24H [facility] Rx#: [id number] Potassium Chloride 10 meq 300 In Water For Injection 1 100ml.bag @ 100 mls/hr IVPB Q1HR [facility] Rx#: [id number] ceFAZolin 2 gm In Sodium 50 Chloride 0.9% 50 ml @ 100 mls/hr IVPB Q8HR [facility] Rx# :[id number] propofoL 1,000 mg In 191.517 Empty Bag 1 bag @ Titrate IV .Q0M [facility] Rx#: [id number] Output: Chest Tube Drainage 58 30 Chest Tube Right 58 30 Urine 695 585 320 Other: Voiding Method Indwelling Catheter Indwelling Catheter Indwelling Catheter ABP, PAP, CO, CI - Last Documented Arterial Blood Pressure 140/84 - Exam Intubated on a vent - Constitutional General appearance: Present: no acute distress - Respiratory Respiratory: bilateral: CTA, diminished - Cardiovascular Rhythm: regular Heart sounds: normal: S1, S2 Abnormal Heart Sounds: Absent: systolic murmur, diastolic murmur, rub, S3 Gallop, S4 Gallop, click, other - Gastrointestinal General gastrointestinal: Present: soft - Labs CBC & Chem 7: 11/07/20 03:18 11/07/20 03:18 Labs: Abnormal Lab Results - Last 24 Hours (Table) 11/06/20 11/06/20 11/06/20 Range/Units 13:59 17:55 20:23 RBC (3.80-5.40) m/uL Hgb (11.4-16.0) gm/dL Hct (34.0-46.0) % RDW (11.5-15.5) % Plt Count (150-450) k/uL Lymphocytes # (1.0-4.8) k/uL ABG pCO2 54 H 52 H (35-45) mmHg ABG pO2 67 L 41 L* (83-108) mmHg ABG HCO3 33 H 33 H (21-25) mmol/L ABG Total CO2 34 H 35 H (19-24) mmol/L ABG O2 Saturation 92.1 L 71.0 L (94-97) % Potassium (3.5-5.1) mmol/L Carbon Dioxide (22-30) mmol/L BUN (7-17) mg/dL Creatinine (0.52-1.04) mg/dL Glucose (74-99) mg/dL POC Glucose (mg/dL) 121 H (75-99) mg/dL Calcium (8.4-10.2) mg/dL Alkaline Phosphatase (38-126) U/L Lactate Dehydrogenase (313-618) U/L C-Reactive Protein (<10.0) mg/L Total Protein (6.3-8.2) g/dL Albumin (3.5-5.0) g/dL 11/06/20 11/07/20 11/07/20 Range/Units 20:55 00:00 03:18 RBC (3.80-5.40) m/uL Hgb (11.4-16.0) gm/dL Hct (34.0-46.0) % RDW (11.5-15.5) % Plt Count (150-450) k/uL Lymphocytes # (1.0-4.8) k/uL ABG pCO2 49 H (35-45) mmHg ABG pO2 (83-108) mmHg ABG HCO3 32 H (21-25) mmol/L ABG Total CO2 34 H (19-24) mmol/L ABG O2 Saturation 97.9 H (94-97) % Potassium 3.3 L (3.5-5.1) mmol/L Carbon Dioxide 32 H (22-30) mmol/L BUN 21 H (7-17) mg/dL Creatinine 0.40 L (0.52-1.04) mg/dL Glucose 128 H (74-99) mg/dL POC Glucose (mg/dL) 129 H (75-99) mg/dL Calcium 7.5 L (8.4-10.2) mg/dL Alkaline Phosphatase 180 H (38-126) U/L Lactate Dehydrogenase 1630 H (313-618) U/L C-Reactive Protein 36.3 H (<10.0) mg/L Total Protein 4.8 L (6.3-8.2) g/dL Albumin 2.5 L (3.5-5.0) g/dL 11/07/20 11/07/20 11/07/20 Range/Units 03:18 05:10 05:49 RBC 2.58 L (3.80-5.40) m/uL Hgb 7.3 L (11.4-16.0) gm/dL Hct 22.1 L (34.0-46.0) % RDW 18.4 H (11.5-15.5) % Plt Count 132 L (150-450) k/uL Lymphocytes # 0.2 L (1.0-4.8) k/uL ABG pCO2 52 H (35-45) mmHg ABG pO2 81 L (83-108) mmHg ABG HCO3 32 H (21-25) mmol/L ABG Total CO2 34 H (19-24) mmol/L ABG O2 Saturation (94-97) % Potassium (3.5-5.1) mmol/L Carbon Dioxide (22-30) mmol/L BUN (7-17) mg/dL Creatinine (0.52-1.04) mg/dL Glucose (74-99) mg/dL POC Glucose (mg/dL) 136 H (75-99) mg/dL Calcium (8.4-10.2) mg/dL Alkaline Phosphatase (38-126) U/L Lactate Dehydrogenase (313-618) U/L C-Reactive Protein (<10.0) mg/L Total Protein (6.3-8.2) g/dL Albumin (3.5-5.0) g/dL 11/07/20 11/07/20 Range/Units 11:02 11:06 RBC (3.80-5.40) m/uL Hgb (11.4-16.0) gm/dL Hct (34.0-46.0) % RDW (11.5-15.5) % Plt Count (150-450) k/uL Lymphocytes # (1.0-4.8) k/uL ABG pCO2 53 H (35-45) mmHg ABG pO2 (83-108) mmHg ABG HCO3 33 H (21-25) mmol/L ABG Total CO2 35 H (19-24) mmol/L ABG O2 Saturation 97.5 H (94-97) % Potassium (3.5-5.1) mmol/L Carbon Dioxide (22-30) mmol/L BUN (7-17) mg/dL Creatinine (0.52-1.04) mg/dL Glucose (74-99) mg/dL POC Glucose (mg/dL) 129 H (75-99) mg/dL Calcium (8.4-10.2) mg/dL Alkaline Phosphatase (38-126) U/L Lactate Dehydrogenase (313-618) U/L C-Reactive Protein (<10.0) mg/L Total Protein (6.3-8.2) g/dL Albumin (3.5-5.0) g/dL Microbiology - Last 24 Hours (Table) 11/03/20 22:40 Blood Culture Gram Stain - Final Blood Blood Culture - Final Staphylococcus aureus 11/03/20 22:30 Blood Culture - Preliminary Blood No Growth after 72 hours Assessment and Plan Plan: 1. Acute hypoxic respiratory failure , acute respiratory distress syndrome secondary to acute Covid 19 pneumonia. Currently intubated November 06 2020 Consult with pulmonary medicine appreciated. Status post Tocilizumab, continue Lovenox 40 mg subcu daily, Solu-Medrol 60 mg IV push every 6 hours, zinc and vitamin supplements. Continue O2 therapy. Failed on BiPAP treatments, intubated November 06 2020 with a right chest tube 2. Large pneumothorax right side, required chest tube placement on October 2020, 3. Moderate right pleural effusion 4. Acute exacerbation of mild intermittent bronchial asthma. 5 Staph bacteremia, on vancomycin and cefazolin, infectious disease following 6 Chronic anemia most likely due to history of bleeding ulcers and alcohol abuse. Suspect iron deficiency, might need iron infusion, check for iron saturation and 90 urine 7 Tobacco use and dependence including taping. 8 Daily alcohol use/abuse. Patient apparently has had no alcohol intake for 7 days. Monitor closely for DTs 8 Recurrent depression and generalized anxiety disorder. Continue Abilify 7.5 mg daily, Wellbutrin 150 mg daily, BuSpar 10 mg as needed for anxiety, Cymbalta 60 mg daily. 9 Migraine headaches. Continue Fioricet as needed. Hold Inderal 60 mg daily. 10 Gastroesophageal reflux disease with history of bleeding ulcers. Continue Protonix 40 mg daily and Carafate 1 g 4 times daily. 11. Moderate protein calorie malnutrition, secondary to poor oral intake from Covid, patient might need a massive effusion, however he would try oral feedings with protein supplementation once able to get off BiPAP transiently 12 DVT prophylaxis. Lovenox.
[2020-11-07] MEDS: CISATRACURIUM 200 MG in SODIUM CHLORIDE 0.9% 180 ML IV SCH (14:42)
[2020-11-07] MEDS ORDERED: VANCOMYCIN TROUGH DUE 1 EACH MISC MISCELLANE ONE (17:00)
[2020-11-07 17:11] LABS: Glucose,Whole Blood 129 mg/dL (75-99)
[2020-11-07] MEDS: HYDROmorphone 1 MG/ML 1 ML SYRINGE IVP PRN (18:56)
--- NOTE | 2020-11-07 19:35 | OP ---
OPERATIVE REPORT PROCEDURES: 1. Left subclavian triple-lumen catheter. 2. Right radial art line. OPERATORS: Dr. Conn and Dr. Salgado. PROCEDURE IN DETAIL: LEFT SUBCLAVIAN TRIPLE LUMEN CATHETER: There was informed consent and universal timeout. Indication: Hemodynamic monitoring/Intravenous access. A time-out was completed verifying correct patient, procedure, site, positioning, and implant(s) or special equipment if applicable. The patient was placed in a dependent position appropriate for triple lumen catheter placement based on the vein to be cannulated. The patient's left shoulder was prepped and draped in sterile fashion. 1% Lidocaine was used to anesthetize the surrounding skin area. A triple lumen 9F Cordis catheter was introduced into the left subclavian vein using Seldinger technique. The catheter was threaded smoothly over the guide wire and appropriate blood return was obtained. Each lumen of the catheter was evacuated of air and flushed with sterile saline. The catheter was then sutured in place to the skin and a sterile dressing applied. Perfusion to the extremity distal to the point of catheter insertion was checked and found to be adequate. There were no complications. The patient tolerated the procedure well. There was good blood return from all 3 ports. The catheter was sutured in place. Sterile dressing was applied by the nurse. The tip of the catheter was seen in the area of the junction between the superior vena cava and right atrium. RIGHT RADIAL ARTERIAL LINE: Indications: Hemodynamic monitoring. There was informed consent and universal timeout. A time-out was completed verifying correct patient, procedure, site, positioning, and implant(s) or special equipment if applicable. Bryan's test was performed to ensure adequate perfusion. The patient's right wrist was prepped and draped in sterile fashion. 1% Lidocaine was used to anesthetize the area. An 18G Arrow arterial line was introduced into the radial/femoral artery. The catheter was threaded over the guide wire and the needle was removed with appropriate pulsatile blood return. Blood loss was minimal. The catheter was then sutured in place to the skin and a sterile dressing applied. Perfusion to the extremity distal to the point of catheter insertion was checked and found to be adequate. There was good blood return and waveform. The patient tolerated the procedure well and there were no complications. Catheter was sutured in place. Sterile dressings were applied by the nurse. MMODL / IJN: [id number] /
[2020-11-07] MEDS: MELATONIN 3 MG TABLET PO SCH (20:40)
[2020-11-07 23:44] LABS: Glucose,Whole Blood 131 mg/dL (75-99)
[2020-11-08] MEDS: VANCOMYCIN 1,000 MG in SODIUM CHLORIDE 0.9% 250 ML IVPB SCH (01:31)
[2020-11-08] MEDS: HYDROmorphone 1 MG/ML 1 ML SYRINGE IVP PRN ×4 (02:26→23:35)
--- NOTE | 2020-11-08 03:24 | XR ---
EXAM: XR Chest, 1 View CLINICAL HISTORY: ITS.REASON XR Reason: assess lungs TECHNIQUE: Frontal view of the chest. COMPARISON: November 07, 2020 at 0402 hrs. FINDINGS: Lungs: Severe interstitial infiltrates throughout the lungs bilaterally, slightly increased since previous. Pleural space: There is increase in size of right-sided pneumothorax since previous measuring approximately 3.5 cm today compared to 1.2 cm yesterday. Heart: Left subclavian line in place with the tip in the upper right atrium. Mediastinum: Unremarkable. Bones/joints: Unremarkable. Tubes, lines and devices: Endotracheal tube tip in standard position at the level of the clavicles, 2 cm from the ramy. Large caliber right chest tube in place. NG tube extends into the stomach. IMPRESSION: 1. There is increase in size of right-sided pneumothorax since previous measuring approximately 3.5 cm today compared to 1.2 cm yesterday. 2. Severe interstitial infiltrates throughout the lungs bilaterally, slightly increased since previous. 3. Tubes and lines in position as described above.
--- NOTE | 2020-11-08 03:43 | XR ---
EXAM: XR Chest, 1 View CLINICAL HISTORY: ITS.REASON XR Reason: Chest Tube TECHNIQUE: Frontal view of the chest. COMPARISON: Chest x-ray from November 08, 2020 at 0242 hours FINDINGS: Lungs: Slightly improved aeration of the right lung since previous. Severe diffuse bilateral airspace infiltrates throughout the lungs, slightly improved since previous. Pleural space: There is reduction in size of the right-sided pneumothorax measuring approximately 2.5 cm compared to 3.5 cm on the comparison study. Heart: Unremarkable. No cardiomegaly. Mediastinum: Unremarkable. Bones/joints: Unremarkable. Tubes, lines and devices: Endotracheal tube and left subclavian line, NG tube, right chest tubes are in good position, unchanged. IMPRESSION: 1. There is reduction in size of the right-sided pneumothorax measuring approximately 2.5 cm compared to 3.5 cm on the comparison study. 2. Slightly improved aeration of the right lung since previous. 3. Endotracheal tube and left subclavian line, NG tube, right chest tubes are in good position, unchanged. 4. Severe diffuse bilateral airspace infiltrates throughout the lungs, slightly improved since previous.
[2020-11-08 04:13] LABS: ABG Base Excess 7.7 mmol/L; ABG HCO3 33 mmol/L (21-25); ABG Oxygen Saturation 99.3 % (94-97); ABG PCO2 57 mmHg (35-45); ABG PH 7.37 (7.35-7.45); ABG PO2 168 mmHg (83-108); ABG TCO2 35 mmol/L (19-24)
[2020-11-08 04:20] LABS: ALT 10 U/L (4-34); AST 18 U/L (14-36); African American GFR (CKD) >90 (>60 ml/min/1.73 sqM); Albumin 2.4 g/dL (3.5-5.0); Alkaline Phosphatase 154 U/L (38-126); Anion Gap -1 mmol/L; Anisocytosis Slight; Blood Urea Nitrogen 24 mg/dL (7-17); Calcium 7.4 mg/dL (8.4-10.2); Carbon Dioxide 35 mmol/L (22-30); Chloride 107 mmol/L (98-107); Creatine Kinase 34 U/L (30-135); Glucose 132 mg/dL (74-99); HCT 20.3 % (34.0-46.0); Hypochromasia Marked; MCH 26.5 pg (25.0-35.0); MCHC 30.6 g/dL (31.0-37.0); MCV 86.5 fL (80.0-100.0); Mean Platelet Volume 8.8; Non-African American GFR(CKD) >90 (>60 ml/min/1.73 sqM); Platelet Count 133 k/uL (150-450); Poikilocytosis Slight; Potassium 3.5 mmol/L (3.5-5.1); RBC 2.35 m/uL (3.80-5.40); RDW 18.6 % (11.5-15.5); Sodium 141 mmol/L (137-145); Total Bilirubin 0.3 mg/dL (0.2-1.3); Total Protein 4.7 g/dL (6.3-8.2); WBC 5.2 k/uL (3.8-10.6)
[2020-11-08 04:24] LABS: HGB 6.2 gm/dL (11.4-16.0)
--- NOTE | 2020-11-08 04:26 | XR ---
EXAM: XR Chest, 1 View CLINICAL HISTORY: ITS.REASON XR Reason: Chest Tube TECHNIQUE: Frontal view of the chest. COMPARISON: November 08, 2020 at 0336 hours FINDINGS: Lungs: Moderate to severe bilateral airspace infiltrates, stable since previous. Pleural space: Slight decrease in size of right pneumothorax since previous measuring 2.2 cm compared to 2.5 cm. There appears to be a new 18-gauge Angiocath in the right second rib interspace. Heart: Unremarkable. No cardiomegaly. Mediastinum: Unremarkable. Bones/joints: Unremarkable. Tubes, lines and devices: Endotracheal tube, left subclavian line, NG tube, and right chest tubes remain in good position, unchanged. IMPRESSION: 1. Slight decrease in size of right pneumothorax since previous measuring 2.2 cm compared to 2.5 cm. There appears to be a new 18-gauge Angiocath in the right second rib interspace. 2. Endotracheal tube, left subclavian line, NG tube, and right chest tubes remain in good position, unchanged. 3. Moderate to severe bilateral airspace infiltrates, stable since previous.
[2020-11-08 04:31] LABS: Allen Test Performed? no
[2020-11-08 04:47] LABS: Band Neutrophils % 17 %; Monocytes # (M) 0.05 k/uL (0-1.0); Neutrophils % (M) 82 %; Nucleated Red Blood Cells 0 /100 WBC (0-0)
[2020-11-08 04:48] LABS: Anisocytosis (M) Present; Total Cells Counted 200; Toxic Granulation Present
[2020-11-08] MEDS: ARTIFICIAL TEARS-HYPROMELLOSE DROPS 15 ML BTL BOTH EYES SCH ×6 (05:01→23:37)
--- NOTE | 2020-11-08 05:28 | XR ---
EXAM: XR Chest, 1 View CLINICAL HISTORY: ITS.REASON XR 0356 hours Reason: Chest Tube TECHNIQUE: Frontal view of the chest. COMPARISON: November 08, 2020 at 0311 hours FINDINGS: Lungs: Moderate to severe bilateral airspace infiltrates, unchanged. Pleural space: Right side pneumothorax measuring 2.2 cm compared to 2. 5 cm previously. Heart: Unremarkable. No cardiomegaly. Mediastinum: Unremarkable. Bones/joints: New right 18-gauge Angiocath in the second rib interspace. Tubes, lines and devices: Endotracheal tube tip at the level of the clavicles, unchanged. Left subclavian line in stable position unchanged. Right side chest tube in place, unchanged. IMPRESSION: 1. New right 18-gauge Angiocath in the second rib interspace. 2. Right side pneumothorax measuring 2.2 cm compared to 2.5 cm previously. 3. Moderate to severe bilateral airspace infiltrates, unchanged.
[2020-11-08] MEDS: methylPREDNISolone SOD SUCCI 125 MG/2 ML VIAL IV SCH ×4 (05:35→23:36)
[2020-11-08] MEDS: POTASSIUM BICARBONATE/CIT AC 20 MEQ TABLET.EFF NG-TUBE SCH ×4 (05:36→14:06)
[2020-11-08] MEDS: INSULIN ASPART (NovoLOG) 100 UNIT/ML VIAL SQ SCH ×4 (05:36→23:36)
[2020-11-08 05:45] LABS: Glucose,Whole Blood 136 mg/dL (75-99)
[2020-11-08] MEDS: PANTOPRAZOLE 40 MG TABLET PO SCH (06:21)
[2020-11-08] MEDS: SUCRALFATE 1 GM TAB PO SCH ×4 (06:21→20:21)
[2020-11-08] MEDS: ALBUTEROL HFA INHALER INHALATION PRN ×3 (07:20→20:10)
--- NOTE | 2020-11-08 07:45 | P.PN ---
Subjective Progress Note Date: 11/08/20 39-year-old female patient is currently in the intensive care unit because of covid 19 related pneumonia with acute hypoxic respiratory failure. The patient presented to the hospital with worsening shortness of breath and fever and chills and congestion. She checked positive for covid 19 on 10/30/2020. The patient is also known to have previous history of GI bleeds, she has nonbleeding antral ulcers 2, she has history of migraine, fibromyalgia, chronic anxiety/depression and chronic back pain and irritable bowel syndrome. She has mild intermittent chronic bronchial asthma and she has been maintained on Advair. She has been in the intensive care unit for now. The patient after being admitted to the intensive care unit, she decompensated and she developed worsening in shortness of breath She has currently intubated on a mechanical ventilator. She was intubated on 11/06/2020 because of worsening respiratory status. While on a mechanical ventilator, the patient developed also a right- sided pneumothorax. Based on that, right-sided chest tube was inserted. For now, the patient a mechanical ventilator. She is sedated with propofol which is currently running at 60 mcg/kg per minute. The patient is paralyzed with Nimbex at 0.5/kg per minute.. She is on a mechanical ventilator on assist control mode at the rate of 24, FiO2 of 100% and PEEP of 10 with a tidal volume of 400. The IV fluids running at 75 mL an hour of normal saline. The patient is currently received Lovenox, Solu-Medrol, vitamin C, vitamin D3, and zinc, as well as TOCI. Chest x-ray is showing a right-sided chest tube with persistent pneumothorax on the right. The blood culture from 11/03/2020 showed staph aureus, MSSA and the patient is currently on IV Ancef 2 g, every 8 hours. The patient is receiving normal enteral feeding for now. The repeat chest x-ray from today shows a 50% pneumothorax on the right. There is a right-sided chest tube in place. There is a left subclavian triple-lumen catheter. The patient continues to have diffuse bilateral pulmonary infiltrates. Blood gases from today shows a pH of 7.37 with a pCO2 of 57 and pO2 of 168 and this was on FiO2 of 100%. Hemoglobin today is down to 6.2. No signs of any acute GI bleeding. The patient will be transfused with a unit of packed RBC. The peak airway pressures around 35 with a static air a pressure of 34 while being on a mechanical ventilator. Objective - Vital Signs Vital signs: Vital Signs Temp 97.5 F L 11/08/20 04:00 Pulse 90 11/08/20 07:00 Resp 24 11/08/20 07:00 BP 113/85 11/07/20 20:30 Pulse Ox 99 11/08/20 07:00 Intake & Output 11/07/20 11/08/20 11/08/20 18:59 06:59 18:59 Intake Total 3835.476 7190.182 75 Output Total 605 900 125 Balance 528.382 275.182 -50 Intake: IV 900 900 75 Sodium Chloride 0.9% 1, 900 900 75 000 ml @ 75 mls/hr IV . [id number] [facility] Rx#:[id number] Intake, IV Titration 233.382 275.182 Amount Cisatracurium 200 mg In 133.382 Sodium Chloride 0.9% 180 ml @ 2 MCG/KG/MIN 7.076 mls/hr IV .Q24H [facility] Rx#: [id number] propofoL 1,000 mg In 100 275.182 Empty Bag 1 bag @ Titrate IV .Q0M [facility] Rx#: [id number] Output: Chest Tube Drainage 30 120 Chest Tube Right 30 120 Urine 575 780 125 Other: Voiding Method Indwelling Catheter Indwelling Catheter ABP, PAP, CO, CI - Last Documented Arterial Blood Pressure 156/86 - Exam The patient is currently sedated and paralyzed. There is an orally placed endotracheal tube, and NG tube. HEENT examination is grossly unremarkable. Mucous membranes are moist. Neck supple. Full range of motion. No adenopathy thyromegaly or neck vein distention. Cardiovascular examination reveals regular rhythm rate. S1-S2 normal. No S3 or S4. No discernible murmur noted. Heart sounds are distant. Heart rate is 94 bpm. Lungs reveal bilateral coarse rhonchi. No wheezes or crackles. Breath sounds are essentially equal bilaterally. A right-sided chest tube is noted. I noted that there is no evidence of any air leak and the patient has diminished breath sound the right compared to left. Crackles are present bilaterally Abdominal exam revealed normal bowel sounds. The abdomen was soft, non-tender, and without masses, organomegaly, or appreciable enlargement of the abdominal aorta. Extremities are intact. No cyanosis clubbing or edema. Skin is without rash or lesion. Neurologic examination is unable to be assessed given her current level of sedation and paralysis. - Labs CBC & Chem 7: 11/08/20 03:13 11/08/20 03:13 Labs: Abnormal Lab Results - Last 24 Hours (Table) 11/07/20 11/07/20 11/07/20 Range/Units 11:02 11:06 17:08 RBC (3.80-5.40) m/uL Hgb (11.4-16.0) gm/dL Hct (34.0-46.0) % MCHC (31.0-37.0) g/dL RDW (11.5-15.5) % Plt Count (150-450) k/uL D-Dimer (<0.60) mg/L FEU ABG pCO2 53 H (35-45) mmHg ABG pO2 (83-108) mmHg ABG HCO3 33 H (21-25) mmol/L ABG Total CO2 35 H (19-24) mmol/L ABG O2 Saturation 97.5 H (94-97) % Carbon Dioxide (22-30) mmol/L BUN (7-17) mg/dL Creatinine (0.52-1.04) mg/dL Glucose (74-99) mg/dL POC Glucose (mg/dL) 129 H 129 H (75-99) mg/dL Calcium (8.4-10.2) mg/dL Alkaline Phosphatase (38-126) U/L Total Protein (6.3-8.2) g/dL Albumin (3.5-5.0) g/dL Crossmatch 11/07/20 11/08/20 11/08/20 Range/Units 23:42 03:13 03:13 RBC 2.35 L (3.80-5.40) m/uL Hgb 6.2 L* (11.4-16.0) gm/dL Hct 20.3 L (34.0-46.0) % MCHC 30.6 L (31.0-37.0) g/dL RDW 18.6 H (11.5-15.5) % Plt Count 133 L (150-450) k/uL D-Dimer 6.35 H (<0.60) mg/L FEU ABG pCO2 (35-45) mmHg ABG pO2 (83-108) mmHg ABG HCO3 (21-25) mmol/L ABG Total CO2 (19-24) mmol/L ABG O2 Saturation (94-97) % Carbon Dioxide (22-30) mmol/L BUN (7-17) mg/dL Creatinine (0.52-1.04) mg/dL Glucose (74-99) mg/dL POC Glucose (mg/dL) 131 H (75-99) mg/dL Calcium (8.4-10.2) mg/dL Alkaline Phosphatase (38-126) U/L Total Protein (6.3-8.2) g/dL Albumin (3.5-5.0) g/dL Crossmatch 11/08/20 11/08/20 11/08/20 Range/Units 03:13 04:11 04:30 RBC (3.80-5.40) m/uL Hgb (11.4-16.0) gm/dL Hct (34.0-46.0) % MCHC (31.0-37.0) g/dL RDW (11.5-15.5) % Plt Count (150-450) k/uL D-Dimer (<0.60) mg/L FEU ABG pCO2 57 H (35-45) mmHg ABG pO2 168 H (83-108) mmHg ABG HCO3 33 H (21-25) mmol/L ABG Total CO2 35 H (19-24) mmol/L ABG O2 Saturation 99.3 H (94-97) % Carbon Dioxide 35 H (22-30) mmol/L BUN 24 H (7-17) mg/dL Creatinine 0.46 L (0.52-1.04) mg/dL Glucose 132 H (74-99) mg/dL POC Glucose (mg/dL) (75-99) mg/dL Calcium 7.4 L (8.4-10.2) mg/dL Alkaline Phosphatase 154 H (38-126) U/L Total Protein 4.7 L (6.3-8.2) g/dL Albumin 2.4 L (3.5-5.0) g/dL Crossmatch See Detail 11/08/20 Range/Units 05:33 RBC (3.80-5.40) m/uL Hgb (11.4-16.0) gm/dL Hct (34.0-46.0) % MCHC (31.0-37.0) g/dL RDW (11.5-15.5) % Plt Count (150-450) k/uL D-Dimer (<0.60) mg/L FEU ABG pCO2 (35-45) mmHg ABG pO2 (83-108) mmHg ABG HCO3 (21-25) mmol/L ABG Total CO2 (19-24) mmol/L ABG O2 Saturation (94-97) % Carbon Dioxide (22-30) mmol/L BUN (7-17) mg/dL Creatinine (0.52-1.04) mg/dL Glucose (74-99) mg/dL POC Glucose (mg/dL) 136 H (75-99) mg/dL Calcium (8.4-10.2) mg/dL Alkaline Phosphatase (38-126) U/L Total Protein (6.3-8.2) g/dL Albumin (3.5-5.0) g/dL Crossmatch Microbiology - Last 24 Hours (Table) 11/03/20 22:30 Blood Culture - Preliminary Blood No Growth after 96 hours 11/07/20 19:00 Gram Stain - Preliminary Pleural Fluid Body Fluid Culture - Preliminary Assessment and Plan Plan: 1 Acute hypoxemic respiratory failure secondary to acute COVID 19 pneumonia. the patient is currently intubated on a mechanical ventilator. the patient is sedated and paralyzed. Blood gases was noted. Chest x-ray was noted. The patient continues to have around 15% pneumothorax on the right. The peak airway pressure is 34 static pressure is still elevated. The patient is on IV Solu- Medrol. The patient also received tocilizumab. No Remdesivir 2 Acute exacerbation of mild intermittent chronic bronchial asthma secondary to above. 3 Anemia in a patient with a known history of nonbleeding ulcers with previous EGD and GI bleed. 4 right-sided pneumothorax post right-sided chest tube insertion with adequate expansion of the right lung 5 History of anxiety/depression. 6 History of immunodeficiency disorder. 7 Irritable bowel syndrome. 8 History of migraine. 9 Fibromyalgia. 10 History of chronic back pain. 11 MSSA bacteremia currently on IV Ancef 2 g every 8 hours 12 History of chronic tobacco dependence, vaping., Vancomycin can be discontinued 13 acute on top of chronic anemia with a drop in hemoglobin down to 6.2 and the patient will be given a unit of packed RBC. Plan: Continue ventilator support and drop the FiO2 gradually to maintain pain a saturation above 90% We'll need another right-sided chest tube in place due to persistent right-sided pneumothorax. May consider referral Thoravent versus the insertion of a right- sided chest tube Continue IV Solu-Medrol Continue monitoring the inflammatory markers. The patient's pro calcitonin LEVEL WAS 0.44. THE PATIENT HAS A CRP FROM YESTERDAY OF 36 WITH A LDH OF 1630 AND THE LEVELS ARE TO BE REPEATED. Transfused with a unit of packed RBC and monitor the hemoglobin Start the patient enteral feeding for nutritional support Stop the IV vancomycin and continue the Ancef Continue oral Protonix 40 mg once a day Consider giving get a paralytic holiday at a later stage once the patient has a right-sided chest tube situated, possibility inserted Condition is critical. We'll continue to follow make further recommendations based on her progress. We were contacted single right-sided pneumothorax today. Repeat the blood cultures Recheck pro calcitonin level Critically care evaluation that was done and more than 30 minutes Time with Patient: Greater than 30
--- NOTE | 2020-11-08 08:58 | XR ---
EXAMINATION TYPE: XR chest 1V portable DATE OF EXAM: 11/08/2020 COMPARISON: NONE HISTORY: SOB, Follow Up FINDINGS: Right-sided pneumothorax persists although is smaller in size with apical pleural distance of 1.7 cm versus 3 cm previously. Right-sided chest tube, endotracheal tube, left subclavian central venous l ine all remain unchanged. Diffuse bilateral airspace infiltrates persist greatest at the left lung base. Stable appearance of the cardio-mediastinal structures at this time. Pleural effusion unchanged. IMPRESSION: 1. Right-sided pneumothorax persists although is smaller in size with apical pleural distance of 1. 7 cm versus 3 cm previously. 2. Stable airspace infiltrates seen bilaterally.
--- NOTE | 2020-11-08 09:08 | P.PCN ---
Date of Procedure: 11/08/20 Preoperative Diagnosis: right-sided pneumothorax Postoperative Diagnosis: pneumothorax, right-sided Procedure(s) Performed: Insertion of a right-sided chest tube, 28-Tamazight Anesthesia: local Surgeon: Ofelia Davison Estimated Blood Loss (ml): 0 Pathology: other Condition: critical Disposition: ICU Operative Findings: A time-out was completed verifying correct patient, procedure, site, positioning, and special equipment if applicable. The patient was positioned appropriately for chest tube placement. The patient' s right chest was prepped and draped in sterile fashion. 1% Lidocaine was used to anesthetize the surrounding skin area. No incision was done as the patient had a right-sided chest tube already placed earlier. The previous inserted a chest tube was removed. Using the same incision,. blunt dissection a subcutaneous tunnel was created cephalad just adjacent to the superior rib. The pleural space was entered bluntly and gush of air was observed. A finger was inserted into the pleural space to check for anatomy and guide tube insertion. A 28 thoracostomy tube was inserted using a Maria Fernanda clamp and positioned appropriately. The chest tube was sutured securely to the skin and a sterile dressing applied. A pleurevac was attached to the chest tube and a chest x-ray obtained. I personally performed this procedure and I was was present for the entire procedure. Estimated Blood Loss: 0 The patient tolerated the procedure well and there were no complications. X-ray showed reexpansion of the right lung and there is positive air leak.
[2020-11-08] MEDS: CHOLECALCIFEROL 25 MCG (1000 IU) TABLET PO SCH (09:20)
[2020-11-08] MEDS: ENOXAPARIN 40 MG/0.4 ML SYRINGE SQ SCH (09:21)
[2020-11-08] MEDS: ZINC SULFATE 220 MG CAP PO SCH (09:21)
[2020-11-08] MEDS: CHLORHEXIDINE GLUCONATE 15 ML CUP MUCOUS MEM SCH ×2 (09:21→20:23)
[2020-11-08] MEDS: ASCORBIC ACID 500 MG TAB PO SCH (09:21)
[2020-11-08] MEDS: ARIPiprazole 5 MG TAB PO SCH (09:22)
[2020-11-08] MEDS: DULoxetine HCL 60 MG CAPSULE.DR PO SCH (09:22)
[2020-11-08] MEDS: buPROPion XL 150 MG TAB.ER.24H PO SCH (10:10)
--- NOTE | 2020-11-08 11:33 | P.PN ---
Subjective Progress Note Date: 11/08/20 HISTORY OF PRESENT ILLNESS This is a 39-year-old female patient of Dr. Gonzalez with past medical history of GI bleed in 2008, July 2020 was admitted for GI bleed secondary to 2 no nbleeding antral ulcers requiring transfusion 2 units packed RBCs, tobacco use, alcohol abuse, recurrent depression, generalized anxiety disorder. Patient was diagnosed with COVID-19 on October 30. She complains of increasing shortness of breath, cough, congestion, fever and chills and hoarseness. She continued to worsen significantly over the past 2 days. She also complains of bloody sputum production. Patient came into [facility] emergency center for evaluation. Temperature 98.3, heart rate 102, respiratory rate 40, blood pressure 95/64, pulse ox 71%. EKG was a sinus rhythm no acute ST elevation. W BC 9.4, hemoglobin 8.6, platelet count 284. Sodium 135, potassium 2.8, chloride 102, CO2 21, BUN 19 creatinine 0.88. Blood sugar 92. AST 71, ALT 24, alkaline phosphatase 264 [place] phosphatase 264, LDH 2067, CA reactive protein 320.8. Lactic acid 3.1. CT angiogram of the chest reveals no evidence pulmonary embolism. Severe pulmonary interstitial and airspace edema. Chest x-ray reveals pulmonary interstitial pneumonia worse than recent exam. Some airspace component. Patient is status post 2 L of IV fluids, potassium replacement, Dilaudid, patient seen by pulmonary medicine and started on Tocilizumab. 11/05: Patient remains in the intensive care unit. She is a nonrebreather mask and AorVp and can maintain a pulse ox in the 90s. If she removes these, patient follows less than 70s. She is very anxious today and has many questions. She does have large number of psychiatric medications which have been resumed. We will also add and Xanax twice daily as needed. She has been afebrile, heart rate 89, blood pressure 116/79, pulse ox 95%. Repeat blood work reveals WBC 11.8, hemoglobin 7.7, platelet count 243. D-dimer 1.95. Sodium 135, electrolyt es otherwise normal, BUN 18 creatinine 0.45. Blood sugars running between 117- 129. AST 48, ALT 18, alkaline phosphatase 218, LDH 2243. C-reactive protein 254. Patient had 2 blood cultures, one is showing no growth at 24 hours and the second obtained at 2240 showing gram-positive cocci. She was started on vancomycin. 11/06: Patient remains in ICU, still on a BiPAP treatments,, continuously, terri barber did not have any meals for the past 72 hours secondary to hypoxemia and air hunger without the reading device. Patient has not slept well at all, cytokinin markers are elevated, blood culture growing Staphylococcus from specimen collected November 03 are pending sensitivity. Patient currently is on IV cefazolin, IV vancomycin, followed by infectious disease. So Medrol 60 mg every 6 hours, most of her oral medications cannot be complied upon secondary to hypoxemia event removed briefly. Hemoglobin at 7.2, blood gas shows pCO2 54, PaO2 of 67, 7.39 pH. Double basic count of under 10, creatinine of 0.5, LDH 1845, alkaline phosphatase 194. Albumin low at 2.6, blood pressure stable,Heart rate of 114, blood pressure of 135/90. Pulse ox 85-86 at BiPAP treatments. 11/07 yesterday afternoon, patient required placement of right chest tube secondary to spontaneous pneumothorax placed by the ER doctor,, patient has worsening respiratory status, and was intubated by the ER physician currently with tidal volume of 40, PEEP of 10, assist control rate of 24, FiO2 of 80%. There is residual small pneumothorax right side, there is a left subclavian triple-lumen placed by Dr. Harrington today. There is consult for nutrition, has an OG tube, for which feedings would be started once completed. Chest x-ray shows bilateral diffuse infiltrates, creatinine of 0.4, LDH of 1630, CRP of 36 platelet count 132, hemoglobin 7.3 11/08: Patient remains in the intensive care unit, intubated and on mechanical ventilation with FiO2 100%, tidal volume 400 and PEEP of 10. Patient is currently on sedation. Repeat chest x-ray today reveals increase in size of right-sided pneumothorax since previous measuring of 3.5 cm today compared to 1.2 cm yesterday. Severe interstitial infiltrates throughout the lungs bilaterally slightly increased from previous. A second right-sided chest tube was placed today by Dr. Davison. Repeat blood work reveals WBC 5.2, hemoglobin 6.2, platelet count 133. Sodium 141, potassium 3.5, chloride 107, CO2 35, BUN 24 and creatinine 0.46. Blood sugar 132. Alkaline phosphatase 154. D-dimer 6.35. Patient is ordered for transfusion 1 unit packed RBCs today. Blood culture is MSSA and patient is on Ancef 2 g every 8 hours. Pleural fluid culture in progress. Patient has been afebrile, heart rate low 100s, respiratory rate 27, blood pressure 135/93, pulse ox 96%. Patient will be started on tube feedings today. REVIEW OF SYSTEMS Unable to obtain due to intubation PHYSICAL EXAMINATION Full examination deferred due to Covid 19 isolation, intubation and ICU. Gen: This is a 39-year-old female. Patient is resting in the ICU bed on the intubated and on mechanical ventilation. She appears to be in no acute respiratory distress. HEENT: Head is atraumatic, normocephalic. NEUROLOGICAL: Patient is awake, alert and oriented x3. Cranial nerves 2 through 12 are grossly intact. ASSESSMENT AND PLAN 1. Acute hypoxic respiratory failure secondary to acute Covid 19 pneumonia. Consult with pulmonary medicine appreciated. Status post Tocilizumab. Patient intubated on November 06. Continue Lovenox 40 mg subcu daily, Solu-Medrol 60 mg IV push every 6 hours, zinc and vitamin supplements. 2. Right sided pneumothorax requiring chest tube 11/06 and 11/08. 3. Acute exacerbation of mild intermittent bronchial asthma. Continue Ventolin inhaler 4 times daily as needed. 4. Chronic anemia most likely due to history of bleeding ulcers and alcohol a buse. 5. Tobacco use and dependence including taping. 6. Daily alcohol use/abuse. Patient apparently has had no alcohol intake for 7 days. Monitor closely for DTs 7. Recurrent depression and generalized anxiety disorder. Continue Abilify 7.5 mg daily, Wellbutrin 150 mg daily, BuSpar 10 mg as needed for anxiety, Cymbalta 60 mg daily. 8. Acute anemia secondary to sepsis without blood loss. Transfuse 1 unit of packed RBCs. 9. Migraine headaches. Continue Fioricet as needed. Hold Inderal 60 mg daily. 10. Sepsis with MSSA bacteremia, POA. Patient started on vancomycin. 11. Moderate protein calorie malnutrition. Patient started on tube feedings 12. Gastroesophageal reflux disease with history of bleeding ulcers. Continue Protonix 40 mg daily and Carafate 1 g 4 times daily. 13. DVT prophylaxis. Lovenox. Prognosis: guarded DISCHARGE PLAN Home. Impression and plan of care have been directed as dictated by the signing physician. Isabel Samayoa nurse practitioner acting as scribe for signing physician. Objective - Vital Signs Vital signs: Vital Signs Temp 98.6 F 11/08/20 10:04 Pulse 103 H 11/08/20 10:04 Resp 27 H 11/08/20 10:04 BP 138/96 11/08/20 10:04 Pulse Ox 95 11/08/20 10:04 Intake & Output 11/07/20 11/08/20 11/08/20 18:59 06:59 18:59 Intake Total 9793.318 8751.182 375 Output Total 605 900 300 Balance 528.382 275.182 75 Weight 58.967 kg Intake: IV 900 900 225 Sodium Chloride 0.9% 1, 900 900 225 000 ml @ 75 mls/hr IV . [id number] [facility] Rx#:[id number] Intake, IV Titration 233.382 275.182 150 Amount Cisatracurium 200 mg In 133.382 Sodium Chloride 0.9% 180 ml @ 2 MCG/KG/MIN 7.076 mls/hr IV .Q24H [facility] Rx#: [id number] ceFAZolin 2 gm In Sodium 50 Chloride 0.9% 50 ml @ 100 mls/hr IVPB Q8HR [facility] Rx# :[id number] propofoL 1,000 mg In 100 275.182 100 Empty Bag 1 bag @ Titrate IV .Q0M [facility] Rx#: [id number] Blood Product 0 Rc As-1 Unit 0 [id number] Output: Chest Tube Drainage 30 120 Chest Tube Right 30 120 Urine 575 780 300 Other: Voiding Method Indwelling Catheter Indwelling Catheter ABP, PAP, CO, CI - Last Documented Arterial Blood Pressure 169/94 - Labs CBC & Chem 7: 11/08/20 03:13 11/08/20 03:13 Labs: Abnormal Lab Results - Last 24 Hours (Table) 11/07/20 11/07/20 11/08/20 Range/Units 17:08 23:42 03:13 RBC 2.35 L (3.80-5.40) m/uL Hgb 6.2 L* (11.4-16.0) gm/dL Hct 20.3 L (34.0-46.0) % MCHC 30.6 L (31.0-37.0) g/dL RDW 18.6 H (11.5-15.5) % Plt Count 133 L (150-450) k/uL D-Dimer (<0.60) mg/L FEU ABG pCO2 (35-45) mmHg ABG pO2 (83-108) mmHg ABG HCO3 (21-25) mmol/L ABG Total CO2 (19-24) mmol/L ABG O2 Saturation (94-97) % Carbon Dioxide (22-30) mmol/L BUN (7-17) mg/dL Creatinine (0.52-1.04) mg/dL Glucose (74-99) mg/dL POC Glucose (mg/dL) 129 H 131 H (75-99) mg/dL Calcium (8.4-10.2) mg/dL Alkaline Phosphatase (38-126) U/L Total Protein (6.3-8.2) g/dL Albumin (3.5-5.0) g/dL Crossmatch 11/08/20 11/08/20 11/08/20 Range/Units 03:13 03:13 04:11 RBC (3.80-5.40) m/uL Hgb (11.4-16.0) gm/dL Hct (34.0-46.0) % MCHC (31.0-37.0) g/dL RDW (11.5-15.5) % Plt Count (150-450) k/uL D-Dimer 6.35 H (<0.60) mg/L FEU ABG pCO2 57 H (35-45) mmHg ABG pO2 168 H (83-108) mmHg ABG HCO3 33 H (21-25) mmol/L ABG Total CO2 35 H (19-24) mmol/L ABG O2 Saturation 99.3 H (94-97) % Carbon Dioxide 35 H (22-30) mmol/L BUN 24 H (7-17) mg/dL Creatinine 0.46 L (0.52-1.04) mg/dL Glucose 132 H (74-99) mg/dL POC Glucose (mg/dL) (75-99) mg/dL Calcium 7.4 L (8.4-10.2) mg/dL Alkaline Phosphatase 154 H (38-126) U/L Total Protein 4.7 L (6.3-8.2) g/dL Albumin 2.4 L (3.5-5.0) g/dL Crossmatch 11/08/20 11/08/20 Range/Units 04:30 05:33 RBC (3.80-5.40) m/uL Hgb (11.4-16.0) gm/dL Hct (34.0-46.0) % MCHC (31.0-37.0) g/dL RDW (11.5-15.5) % Plt Count (150-450) k/uL D-Dimer (<0.60) mg/L FEU ABG pCO2 (35-45) mmHg ABG pO2 (83-108) mmHg ABG HCO3 (21-25) mmol/L ABG Total CO2 (19-24) mmol/L ABG O2 Saturation (94-97) % Carbon Dioxide (22-30) mmol/L BUN (7-17) mg/dL Creatinine (0.52-1.04) mg/dL Glucose (74-99) mg/dL POC Glucose (mg/dL) 136 H (75-99) mg/dL Calcium (8.4-10.2) mg/dL Alkaline Phosphatase (38-126) U/L Total Protein (6.3-8.2) g/dL Albumin (3.5-5.0) g/dL Crossmatch See Detail Microbiology - Last 24 Hours (Table) 11/03/20 22:30 Blood Culture - Preliminary Blood No Growth after 96 hours 11/07/20 19:00 Gram Stain - Preliminary Pleural Fluid Body Fluid Culture - Preliminary
[2020-11-08 12:09] LABS: Glucose,Whole Blood 137 mg/dL (75-99)
[2020-11-08] MEDS: SODIUM CHLORIDE 0.9% 1,000 ML IV SCH ×2 (14:01→23:38)
[2020-11-08 16:28] LABS: Glucose,Whole Blood 134 mg/dL (75-99)
[2020-11-08] MEDS: CISATRACURIUM 200 MG in SODIUM CHLORIDE 0.9% 180 ML IV SCH (16:50)
[2020-11-08 17:32] LABS: Anisocytosis Slight; Basophils % (A) 1 %; Eosinophils % (A) 0 %; HCT 25.2 % (34.0-46.0); Hypochromasia Moderate; Lymphocytes # (A) 0.4 k/uL (1.0-4.8); Lymphocytes % (A) 5 %; MCH 27.7 pg (25.0-35.0); MCHC 31.8 g/dL (31.0-37.0); Mean Platelet Volume 9.8; Monocytes # (A) 0.2 k/uL (0-1.0); Monocytes % (A) 3 %; Neutrophils # (A) 6.9 k/uL (1.3-7.7); Neutrophils % (A) 90 %; Platelet Count 130 k/uL (150-450); Poikilocytosis Slight; RBC 2.89 m/uL (3.80-5.40); RDW 18.1 % (11.5-15.5); WBC 7.6 k/uL (3.8-10.6)
[2020-11-08] MEDS: MELATONIN 3 MG TABLET PO SCH (20:21)
[2020-11-08 23:28] LABS: Glucose,Whole Blood 149 mg/dL (75-99)
[2020-11-09 04:53] LABS: C Reactive Protein 8.3 mg/L (<10.0)
[2020-11-09 04:58] LABS: D-Dimer 7.09 mg/L FEU (<0.60)
[2020-11-09 05:05] LABS: ABG HCO3 37 mmol/L (21-25); ABG Oxygen Saturation 99.9 % (94-97); ABG PCO2 58 mmHg (35-45); ABG PH 7.41 (7.35-7.45); ABG PO2 200 mmHg (83-108); ABG TCO2 38 mmol/L (19-24)
[2020-11-09 05:11] LABS: Allen Test Performed? no
[2020-11-09 05:28] LABS: Anisocytosis Slight; Basophils % (A) 0 %; Eosinophils % (A) 0 %; HCT 23.8 % (34.0-46.0); HGB 7.8 gm/dL (11.4-16.0); Hypochromasia Moderate; Lymphocytes # (A) 0.3 k/uL (1.0-4.8); Lymphocytes % (A) 4 %; MCH 28.6 pg (25.0-35.0); MCHC 32.9 g/dL (31.0-37.0); Mean Platelet Volume 9.2; Monocytes # (A) 0.2 k/uL (0-1.0); Monocytes % (A) 3 %; Neutrophils # (A) 7.3 k/uL (1.3-7.7); Neutrophils % (A) 91 %; Platelet Count 123 k/uL (150-450); Poikilocytosis Slight; RBC 2.73 m/uL (3.80-5.40); RDW 18.3 % (11.5-15.5)
[2020-11-09 05:29] LABS: African American GFR (CKD) >90 (>60 ml/min/1.73 sqM); Anion Gap -1 mmol/L; Blood Urea Nitrogen 28 mg/dL (7-17); Calcium 7.8 mg/dL (8.4-10.2); Carbon Dioxide 37 mmol/L (22-30); Chloride 105 mmol/L (98-107); Glucose 142 mg/dL (74-99); Non-African American GFR(CKD) >90 (>60 ml/min/1.73 sqM); Potassium 3.9 mmol/L (3.5-5.1); Sodium 141 mmol/L (137-145)
[2020-11-09] MEDS: ARTIFICIAL TEARS-HYPROMELLOSE DROPS 15 ML BTL BOTH EYES SCH ×5 (05:31→19:42)
[2020-11-09 05:32] LABS: Glucose,Whole Blood 156 mg/dL (75-99)
[2020-11-09] MEDS: HYDROmorphone 1 MG/ML 1 ML SYRINGE IVP PRN ×5 (05:32→23:53)
[2020-11-09] MEDS: methylPREDNISolone SOD SUCCI 125 MG/2 ML VIAL IV SCH ×4 (05:32→23:54)
[2020-11-09] MEDS: INSULIN ASPART (NovoLOG) 100 UNIT/ML VIAL SQ SCH ×4 (05:32→23:53)
[2020-11-09] MEDS: SUCRALFATE 1 GM TAB PO SCH ×4 (05:33→19:43)
[2020-11-09] MEDS: PANTOPRAZOLE 40 MG TABLET PO SCH (05:34)
[2020-11-09] MEDS ORDERED: POTASSIUM BICARBONATE/CIT AC 20 MEQ TABLET.EFF NG-TUBE SCH (06:00)
[2020-11-09] MEDS: ALBUTEROL HFA INHALER INHALATION PRN ×3 (07:09→22:17)
--- NOTE | 2020-11-09 08:14 | XR ---
EXAMINATION TYPE: XR chest 1V portable DATE OF EXAM: 11/09/2020 COMPARISON: 11/08/2020 HISTORY: Pneumothorax TECHNIQUE: Single frontal view of the chest is obtained. FINDINGS: There is a less than 5% right apical pneumothorax seen. Subcutaneous edema noted chest ET and NG tube and central line stable in appearance. Bilateral infiltrates tiny bilateral IMPRESSION: 1. Improving right apical pneumothorax measuring less than 5%. 2. Stable bilateral diffuse infiltrates.
[2020-11-09] MEDS ORDERED: FUROSEMIDE 10 MG/ML 4 ML VIAL IV STA (08:35)
[2020-11-09] MEDS: ASCORBIC ACID 500 MG TAB PO SCH (08:36)
[2020-11-09] MEDS: CHLORHEXIDINE GLUCONATE 15 ML CUP MUCOUS MEM SCH ×2 (08:36→19:43)
[2020-11-09] MEDS: CHOLECALCIFEROL 25 MCG (1000 IU) TABLET PO SCH (08:36)
[2020-11-09] MEDS: ZINC SULFATE 220 MG CAP PO SCH (08:36)
[2020-11-09] MEDS: DULoxetine HCL 60 MG CAPSULE.DR PO SCH (08:36)
[2020-11-09] MEDS: ARIPiprazole 5 MG TAB PO SCH (08:37)
[2020-11-09 08:40] LABS: ABG Base Excess 14.1 mmol/L; ABG HCO3 38 mmol/L (21-25); ABG Oxygen Saturation 95.8 % (94-97); ABG PCO2 55 mmHg (35-45); ABG PH 7.45 (7.35-7.45); ABG PO2 77 mmHg (83-108); ABG TCO2 40 mmol/L (19-24)
--- NOTE | 2020-11-09 08:40 | P.PN ---
Subjective Progress Note Date: 11/09/20 39-year-old female patient is currently in the intensive care unit because of covid 19 related pneumonia with acute hypoxic respiratory failure. The patient presented to the hospital with worsening shortness of breath and fever and chills and congestion. She checked positive for covid 19 on 10/30/2020. The patient is also known to have previous history of GI bleeds, she has nonbleeding antral ulcers 2, she has history of migraine, fibromyalgia, chronic anxiety/depression and chronic back pain and irritable bowel syndrome. She has mild intermittent chronic bronchial asthma and she has been maintained on Advair. She has been in the intensive care unit for now. The patient after being admitted to the intensive care unit, she decompensated and she developed worsening in shortness of breath She has currently intubated on a mechanical ventilator. She was intubated on 11/06/2020 because of worsening respiratory status. While on a mechanical ventilator, the patient developed also a right- sided pneumothorax. Based on that, right-sided chest tube was inserted. For now, the patient a mechanical ventilator. She is sedated with propofol which is currently running at 60 mcg/kg per minute. The patient is paralyzed with Nimbex at 0.5/kg per minute.. She is on a mechanical ventilator on assist control mode at the rate of 24, FiO2 of 100% and PEEP of 10 with a tidal volume of 400. The IV fluids running at 75 mL an hour of normal saline. The patient is currently received Lovenox, Solu-Medrol, vitamin C, vitamin D3, and zinc, as well as TOCI. Chest x-ray is showing a right-sided chest tube with persistent pneumothorax on the right. The blood culture from 11/03/2020 showed staph aureus, MSSA and the patient is currently on IV Ancef 2 g, every 8 hours. The patient is receiving normal enteral feeding for now. The repeat chest x-ray from today shows a 50% pneumothorax on the right. There is a right-sided chest tube in place. There is a left subclavian triple-lumen catheter. The patient continues to have diffuse bilateral pulmonary infiltrates. Blood gases from today shows a pH of 7.37 with a pCO2 of 57 and pO2 of 168 and this was on FiO2 of 100%. Hemoglobin today is down to 6.2. No signs of any acute GI bleeding. The patient will be transfused with a unit of packed RBC. The peak airway pressures around 35 with a static air a pressure of 34 while being on a mechanical ventilator. On today's evaluation of 11/09/2020, the patient remains sedated with propofol and paralyzed with Nimbex. Propofol is running at 75 mcg/kg per minute and Nimbex is running at 2 mg/kg per minute. The patient is well sedated and she is well-appearing paralyzed and she is very symptoms with the mechanical ventilator. She remained on assist control mode at the rate of 24 with a tidal volume of 400 and FiO2 of 65% with a PEEP of 10. She did have a bout of desaturation in the middle of the night. Blood gas was done and this was probably an 100% and he showed a pH of 7.41 with a pCO2 of 58 and pO2 of 200. I repeated blood gases will be needed to reevaluate her oxygenation on a 65% FiO2. Chest x-ray from today shows a small tiny right apical pneumothorax. Otherwise the chest x-ray findings are stable. There is diffuse breath and pulmonary infiltrates. There is improvement in the right-sided pneumothorax less than 5%. Orotracheal tube is in a good location. Peak airway pressure is 33 on a mechanical ventilator. In terms of her pneumonia which is a Covid 19 pneumonia, the patient remains on IV Solu-Medrol 60 mg every 6 hours. She is also on Lovenox for DVT prophylaxis 40 mg subcu. The LDH from today is at 1240 now which is down, the CRP is down to 8.3. Renal function is stable. Creatinine is at 0.5. The d-dimer is high at 7.09 and probably her Lovenox dose needs to be adjusted. She was given a unit of packed RBC yesterday and the hemoglobin came up to 7.8. She is hemodynamically stable. She is on no pressors for now. As mentioned earlier, she has previous history of GI bleeds and nonbleeding antral ulcers in addition to migraine, fibromyalgia, chronic anxiety and depression and chronic back pain addition to asthma. The patient is currently on IV Protonix and she is feeding with vital high protein. She has a left-sided subclavian triple-lumen catheter in place. Objective - Vital Signs Vital signs: Vital Signs Temp 99.3 F 11/09/20 00:00 Pulse 88 11/09/20 07:00 Resp 24 11/09/20 07:00 BP 108/70 11/09/20 07:00 Pulse Ox 94 L 11/09/20 07:00 Intake & Output 11/08/20 11/09/20 11/09/20 18:59 06:59 18:59 Intake Total 3440.190 9572.568 85 Output Total 1200 1280 175 Balance 536.261 188.568 -90 Weight 58.967 kg Intake: IV 900 900 75 Sodium Chloride 0.9% 1, 900 900 75 000 ml @ 75 mls/hr IV . [id number] [facility] Rx#:[id number] Intake, IV Titration 466.261 358.568 Amount Cisatracurium 200 mg In 144.174 79.457 Sodium Chloride 0.9% 180 ml @ 2 MCG/KG/MIN 7.076 mls/hr IV .Q24H [facility] Rx#: [id number] ceFAZolin 2 gm In Sodium 50 Chloride 0.9% 50 ml @ 100 mls/hr IVPB Q8HR [facility] Rx# :[id number] propofoL 1,000 mg In 272.087 279.111 Empty Bag 1 bag @ Titrate IV .Q0M [facility] Rx#: [id number] Tube Feeding 60 120 10 Blood Product 310 Rc As-1 Unit 310 [id number] Other 90 Output: Chest Tube Drainage 40 65 Chest Tube Right 40 65 Urine 1160 1215 175 Other: Voiding Method Indwelling Catheter # Bowel Movements 1 ABP, PAP, CO, CI - Last Documented Arterial Blood Pressure 141/70 - Exam The patient is currently sedated and paralyzed. There is an orally placed endotracheal tube, and NG tube. HEENT examination is grossly unremarkable. Mucous membranes are moist. Neck supple. Full range of motion. No adenopathy thyromegaly or neck vein distention. Cardiovascular examination reveals regular rhythm rate. S1-S2 normal. No S3 or S4. No discernible murmur noted. Heart sounds are distant. Heart rate is 94 bpm. Lungs reveal bilateral coarse rhonchi. No wheezes or crackles. Breath sounds are essentially equal bilaterally. A right-sided chest tube is noted. I noted that there is no evidence of any air leak and the patient has diminished breath sound the right compared to left. Crackles are present bilaterally Abdominal exam revealed normal bowel sounds. The abdomen was soft, non-tender, and without masses, organomegaly, or appreciable enlargement of the abdominal aorta. Extremities are intact. No cyanosis clubbing or edema. Skin is without rash or lesion. Neurologic examination is unable to be assessed given her current level of sedation and paralysis. - Labs CBC & Chem 7: 11/09/20 03:58 11/09/20 03:58 Labs: Abnormal Lab Results - Last 24 Hours (Table) 11/08/20 11/08/20 11/08/20 Range/Units 04:30 12:05 16:25 RBC (3.80-5.40) m/uL Hgb (11.4-16.0) gm/dL Hct (34.0-46.0) % RDW (11.5-15.5) % Plt Count (150-450) k/uL Lymphocytes # (1.0-4.8) k/uL Fibrinogen (200-500) mg/dL D-Dimer (<0.60) mg/L FEU ABG pCO2 (35-45) mmHg ABG pO2 (83-108) mmHg ABG HCO3 (21-25) mmol/L ABG Total CO2 (19-24) mmol/L ABG O2 Saturation (94-97) % Carbon Dioxide (22-30) mmol/L BUN (7-17) mg/dL Creatinine (0.52-1.04) mg/dL Glucose (74-99) mg/dL POC Glucose (mg/dL) 137 H 134 H (75-99) mg/dL Calcium (8.4-10.2) mg/dL Lactate Dehydrogenase (313-618) U/L Creatine Kinase (30-135) U/L Crossmatch See Detail 11/08/20 11/08/20 11/09/20 Range/Units 16:49 23:25 03:58 RBC 2.89 L (3.80-5.40) m/uL Hgb 8.0 L D (11.4-16.0) gm/dL Hct 25.2 L (34.0-46.0) % RDW 18.1 H (11.5-15.5) % Plt Count 130 L (150-450) k/uL Lymphocytes # 0.4 L (1.0-4.8) k/uL Fibrinogen 159 L (200-500) mg/dL D-Dimer 7.09 H (<0.60) mg/L FEU ABG pCO2 (35-45) mmHg ABG pO2 (83-108) mmHg ABG HCO3 (21-25) mmol/L ABG Total CO2 (19-24) mmol/L ABG O2 Saturation (94-97) % Carbon Dioxide (22-30) mmol/L BUN (7-17) mg/dL Creatinine (0.52-1.04) mg/dL Glucose (74-99) mg/dL POC Glucose (mg/dL) 149 H (75-99) mg/dL Calcium (8.4-10.2) mg/dL Lactate Dehydrogenase (313-618) U/L Creatine Kinase (30-135) U/L Crossmatch 11/09/20 11/09/20 11/09/20 Range/Units 03:58 03:58 03:58 RBC 2.73 L (3.80-5.40) m/uL Hgb 7.8 L (11.4-16.0) gm/dL Hct 23.8 L (34.0-46.0) % RDW 18.3 H (11.5-15.5) % Plt Count 123 L (150-450) k/uL Lymphocytes # 0.3 L (1.0-4.8) k/uL Fibrinogen (200-500) mg/dL D-Dimer (<0.60) mg/L FEU ABG pCO2 (35-45) mmHg ABG pO2 (83-108) mmHg ABG HCO3 (21-25) mmol/L ABG Total CO2 (19-24) mmol/L ABG O2 Saturation (94-97) % Carbon Dioxide 37 H (22-30) mmol/L BUN 28 H (7-17) mg/dL Creatinine 0.51 L (0.52-1.04) mg/dL Glucose 142 H (74-99) mg/dL POC Glucose (mg/dL) (75-99) mg/dL Calcium 7.8 L (8.4-10.2) mg/dL Lactate Dehydrogenase 1249 H (313-618) U/L Creatine Kinase 23 L (30-135) U/L Crossmatch 11/09/20 11/09/20 Range/Units 05:02 05:30 RBC (3.80-5.40) m/uL Hgb (11.4-16.0) gm/dL Hct (34.0-46.0) % RDW (11.5-15.5) % Plt Count (150-450) k/uL Lymphocytes # (1.0-4.8) k/uL Fibrinogen (200-500) mg/dL D-Dimer (<0.60) mg/L FEU ABG pCO2 58 H (35-45) mmHg ABG pO2 200 H (83-108) mmHg ABG HCO3 37 H (21-25) mmol/L ABG Total CO2 38 H (19-24) mmol/L ABG O2 Saturation 99.9 H (94-97) % Carbon Dioxide (22-30) mmol/L BUN (7-17) mg/dL Creatinine (0.52-1.04) mg/dL Glucose (74-99) mg/dL POC Glucose (mg/dL) 156 H (75-99) mg/dL Calcium (8.4-10.2) mg/dL Lactate Dehydrogenase (313-618) U/L Creatine Kinase (30-135) U/L Crossmatch Microbiology - Last 24 Hours (Table) 11/03/20 22:30 Blood Culture - Preliminary Blood No Growth after 120 hours 11/08/20 12:07 Gram Stain - Preliminary Sputum Sputum Culture - Preliminary 11/07/20 19:00 Gram Stain - Preliminary Pleural Fluid Body Fluid Culture - Preliminary Presumptive Staph aureus Assessment and Plan Plan: 1 Acute hypoxemic respiratory failure secondary to acute COVID 19 pneumonia. the patient is currently intubated on a mechanical ventilator. the patient is sedated and paralyzed. The peak airway pressure is 34 static pressure is still elevated. The patient is on IV Solu-Medrol. The patient also received tocilizumab. No Remdesivir and on today's evaluation, I'm awaiting a blood gas to make the necessity ventilator changes. The patient pneumothorax on the right is improved and is less than 5%. I replaced the chest tube yesterday. Patient remains sedated and paralyzed. The patient's inflammatory markers are improving. LDH and the CRP are downtrending for now. 2 Acute exacerbation of mild intermittent chronic bronchial asthma secondary to above. 3 Anemia in a patient with a known history of nonbleeding ulcers with previous EGD and GI bleed. The patient got transfused with a packed RBC units and he moglobin is improved and is stable for now and there is no signs of GI bleeding and the patient is currently on a combination of Protonix and Carafate. 4 right-sided pneumothorax post right-sided chest tube insertion with adequate expansion of the right lung, currently the patient has a less than 5% pneumothorax on the right and there is no evidence of any air leak 5 History of anxiety/depression. 6 History of immunodeficiency disorder. 7 Irritable bowel syndrome. 8 History of migraine. 9 Fibromyalgia. 10 History of chronic back pain. 11 MSSA bacteremia currently on IV Ancef 2 g every 8 hours 12 History of chronic tobacco dependence, vaping., Vancomycin can be discontinued 13 acute on top of chronic anemia with a drop in hemoglobin down to 6.2 and the patient will be given a unit of packed RBC. Is improved and septal 7.8. Plan: Continue ventilator support and drop the FiO2 gradually to maintain pain a saturation above 90%, the current FiO2 is at 65%. A blood gas is pending from this morning and the necessity ventilator changes will be done Right-sided chest tube is in a good location, pneumothorax less than 5%, no evidence of any air leak Continue IV Solu-Medrol Continue monitoring the inflammatory markers. The markers are all improving with exception of d-dimer which is high and the patient will be placed on Lovenox 30 mg subcu every 12 hours which is half a milligram per KG every 12 IV Fluids to KVO and Give the Patient Dose of Lasix 40 Mg IV Push As the Patient Has Been a Significant Positive Fluid Balance enteral feeding for nutritional support vital high protein at the rate of 28 mL an hour Stop the IV vancomycin and continue the Ancef Continue oral Protonix 40 mg twice a day Consider giving get a paralytic holiday at a later stage Condition is critical. We'll continue to follow make further recommendations based on her progress. We were contacted single right-sided pneumothorax today. pro calcitonin level was 0.44 from 11/05/2020 in the level is being repeated. Critically care evaluation that was done and more than 30 minutes Time with Patient: Greater than 30
[2020-11-09] MEDS: buPROPion XL 150 MG TAB.ER.24H PO SCH (08:43)
[2020-11-09] MEDS: ENOXAPARIN 30 MG/0.3 ML SYRINGE SQ SCH ×2 (08:49→19:43)
[2020-11-09] MEDS: PANTOPRAZOLE 40 MG/10 ML VIAL IVP SCH ×2 (08:50→19:43)
[2020-11-09] MEDS: SODIUM CHLORIDE 0.9% 1,000 ML IV SCH (11:30)
[2020-11-09 11:37] LABS: Glucose,Whole Blood 153 mg/dL (75-99)
--- NOTE | 2020-11-09 13:15 | P.PN ---
Subjective Progress Note Date: 11/09/20 HISTORY OF PRESENT ILLNESS This is a 39-year-old female patient of Dr. Gonzalez with past medical history of GI bleed in 2008, July 2020 was admitted for GI bleed secondary to 2 no nbleeding antral ulcers requiring transfusion 2 units packed RBCs, tobacco use, alcohol abuse, recurrent depression, generalized anxiety disorder. Patient was diagnosed with COVID-19 on October 30. She complains of increasing shortness of breath, cough, congestion, fever and chills and hoarseness. She continued to worsen significantly over the past 2 days. She also complains of bloody sputum production. Patient came into [facility] emergency center for evaluation. Temperature 98.3, heart rate 102, respiratory rate 40, blood pressure 95/64, pulse ox 71%. EKG was a sinus rhythm no acute ST elevation. W BC 9.4, hemoglobin 8.6, platelet count 284. Sodium 135, potassium 2.8, chloride 102, CO2 21, BUN 19 creatinine 0.88. Blood sugar 92. AST 71, ALT 24, alkaline phosphatase 264 [place] phosphatase 264, LDH 2067, CA reactive protein 320.8. Lactic acid 3.1. CT angiogram of the chest reveals no evidence pulmonary embolism. Severe pulmonary interstitial and airspace edema. Chest x-ray reveals pulmonary interstitial pneumonia worse than recent exam. Some airspace component. Patient is status post 2 L of IV fluids, potassium replacement, Dilaudid, patient seen by pulmonary medicine and started on Tocilizumab. 11/05: Patient remains in the intensive care unit. She is a nonrebreather mask and AorVp and can maintain a pulse ox in the 90s. If she removes these, patient follows less than 70s. She is very anxious today and has many questions. She does have large number of psychiatric medications which have been resumed. We will also add and Xanax twice daily as needed. She has been afebrile, heart rate 89, blood pressure 116/79, pulse ox 95%. Repeat blood work reveals WBC 11.8, hemoglobin 7.7, platelet count 243. D-dimer 1.95. Sodium 135, electrolyt es otherwise normal, BUN 18 creatinine 0.45. Blood sugars running between 117- 129. AST 48, ALT 18, alkaline phosphatase 218, LDH 2243. C-reactive protein 254. Patient had 2 blood cultures, one is showing no growth at 24 hours and the second obtained at 2240 showing gram-positive cocci. She was started on vancomycin. 11/06: Patient remains in ICU, still on a BiPAP treatments,, continuously, terri barber did not have any meals for the past 72 hours secondary to hypoxemia and air hunger without the reading device. Patient has not slept well at all, cytokinin markers are elevated, blood culture growing Staphylococcus from specimen collected November 03 are pending sensitivity. Patient currently is on IV cefazolin, IV vancomycin, followed by infectious disease. So Medrol 60 mg every 6 hours, most of her oral medications cannot be complied upon secondary to hypoxemia event removed briefly. Hemoglobin at 7.2, blood gas shows pCO2 54, PaO2 of 67, 7.39 pH. Double basic count of under 10, creatinine of 0.5, LDH 1845, alkaline phosphatase 194. Albumin low at 2.6, blood pressure stable,Heart rate of 114, blood pressure of 135/90. Pulse ox 85-86 at BiPAP treatments. 11/07 yesterday afternoon, patient required placement of right chest tube secondary to spontaneous pneumothorax placed by the ER doctor,, patient has worsening respiratory status, and was intubated by the ER physician currently with tidal volume of 40, PEEP of 10, assist control rate of 24, FiO2 of 80%. There is residual small pneumothorax right side, there is a left subclavian triple-lumen placed by Dr. Harrington today. There is consult for nutrition, has an OG tube, for which feedings would be started once completed. Chest x-ray shows bilateral diffuse infiltrates, creatinine of 0.4, LDH of 1630, CRP of 36 platelet count 132, hemoglobin 7.3 11/08: Patient remains in the intensive care unit, intubated and on mechanical ventilation with FiO2 100%, tidal volume 400 and PEEP of 10. Patient is currently on sedation. Repeat chest x-ray today reveals increase in size of right-sided pneumothorax since previous measuring of 3.5 cm today compared to 1.2 cm yesterday. Severe interstitial infiltrates throughout the lungs bilaterally slightly increased from previous. A second right-sided chest tube was placed today by Dr. Davison. Repeat blood work reveals WBC 5.2, hemoglobin 6.2, platelet count 133. Sodium 141, potassium 3.5, chloride 107, CO2 35, BUN 24 and creatinine 0.46. Blood sugar 132. Alkaline phosphatase 154. D-dimer 6.35. Patient is ordered for transfusion 1 unit packed RBCs today. Blood culture is MSSA and patient is on Ancef 2 g every 8 hours. Pleural fluid culture in progress. Patient has been afebrile, heart rate low 100s, respiratory rate 27, blood pressure 135/93, pulse ox 96%. Patient will be started on tube feedings today. 11/09: She remains intubated and on mechanical ventilation. She is on both Nimbex and Propofol. She remains intubated and on mechanical ventilation with tidal volume 400, FiO2 65 and PEEP of 10. Repeat chest x-ray reveals improving right apical pneumothorax measuring less than 5%. Stable bilateral diffuse infiltrates. WBC 8, hemoglobin 7.8 status post 1 unit of packed RBCs. Platelet count 123. Sodium 141, potassium 3.9, chloride 105, CO2 37. BUN 28 creatinine 0.51. Blood sugar 142. Inflammatory markers are improving with d-dimer 7.09, fibrinogen 159, LDH 1249, C-reactive protein 8.3, CK 23. Patient is on Kefzol for antibiotics. She remains with right-sided chest tube. She has been a febrile, heart rate 80, blood pressure 116/78, pulse ox 92%. Patient is not requiring vasopressors. REVIEW OF SYSTEMS Unable to obtain due to intubation PHYSICAL EXAMINATION Full examination deferred due to Covid 19 isolation, intubation and ICU. Gen: This is a 39-year-old female. Patient is resting in the ICU bed on the intubated and on mechanical ventilation. She appears to be in no acute respiratory distress. HEENT: Head is atraumatic, normocephalic. NEUROLOGICAL: Patient is sedated. ASSESSMENT AND PLAN 1. Acute hypoxic respiratory failure secondary to acute Covid 19 pneumonia. Consult with pulmonary medicine appreciated. Status post Tocilizumab. Patient intubated on November 06. Continue Lovenox 30 mg subcu twice daily, Solu-Medrol 60 mg IV push every 6 hours, zinc and vitamin supplements. 2. Right sided pneumothorax requiring chest tube 11/06 and 11/08. 3. Acute exacerbation of mild intermittent bronchial asthma. Continue Ventolin inhaler 4 times daily as needed. 4. Chronic anemia most likely due to history of bleeding ulcers and alcohol abuse. 5. Tobacco use and dependence including taping. 6. Daily alcohol use/abuse. Patient apparently has had no alcohol intake for 7 days. Monitor closely for DTs 7. Recurrent depression and generalized anxiety disorder. Continue Abilify 7.5 mg daily, Wellbutrin 150 mg daily, BuSpar 10 mg as needed for anxiety, Cymbalta 60 mg daily. 8. Acute anemia secondary to sepsis without blood loss. Transfuse 1 unit of packed RBCs. 9. Migraine headaches. Continue Fioricet as needed. Hold Inderal 60 mg daily. 10. Sepsis with MSSA bacteremia, POA. Continue Kafzol. 11. Moderate protein calorie malnutrition. Patient maintain on tube feedings 12. Gastroesophageal reflux disease with history of bleeding ulcers. Continue Protonix 40 mg daily and Carafate 1 g 4 times daily. 13. DVT prophylaxis. Lovenox. Prognosis: guarded DISCHARGE PLAN Home. Impression and plan of care have been directed as dictated by the signing physician. Isabel Samayoa nurse practitioner acting as scribe for signing physician. Objective - Vital Signs Vital signs: Vital Signs Temp 99.3 F 11/09/20 00:00 Pulse 88 11/09/20 07:00 Resp 24 11/09/20 07:00 BP 108/70 11/09/20 07:00 Pulse Ox 94 L 11/09/20 07:00 Intake & Output 11/08/20 11/09/20 11/09/20 18:59 06:59 18:59 Intake Total 3632.026 9292.568 99.152 Output Total 1200 1280 175 Balance 536.261 188.568 -75.848 Weight 58.967 kg Intake: IV 900 900 75 Sodium Chloride 0.9% 1, 900 900 75 000 ml @ 75 mls/hr IV . [id number] [facility] Rx#:[id number] Intake, IV Titration 466.261 358.568 14.152 Amount Cisatracurium 200 mg In 144.174 79.457 14.152 Sodium Chloride 0.9% 180 ml @ 2 MCG/KG/MIN 7.076 mls/hr IV .Q24H [facility]ERRON Rx#: [id number] ceFAZolin 2 gm In Sodium 50 Chloride 0.9% 50 ml @ 100 mls/hr IVPB Q8HR [facility] Rx# :[id number] propofoL 1,000 mg In 272.087 279.111 Empty Bag 1 bag @ Titrate IV .Q0M [facility]ERRON Rx#: [id number] Tube Feeding 60 120 10 Blood Product 310 Rc As-1 Unit 310 [id number] Other 90 Output: Chest Tube Drainage 40 65 Chest Tube Right 40 65 Urine 1160 1215 175 Other: Voiding Method Indwelling Catheter # Bowel Movements 1 ABP, PAP, CO, CI - Last Documented Arterial Blood Pressure 141/70 - Labs CBC & Chem 7: 11/09/20 03:58 11/09/20 03:58 Labs: Abnormal Lab Results - Last 24 Hours (Table) 11/08/20 11/08/20 11/08/20 Range/Units 04:30 12:05 16:25 RBC (3.80-5.40) m/uL Hgb (11.4-16.0) gm/dL Hct (34.0-46.0) % RDW (11.5-15.5) % Plt Count (150-450) k/uL Lymphocytes # (1.0-4.8) k/uL Fibrinogen (200-500) mg/dL D-Dimer (<0.60) mg/L FEU ABG pCO2 (35-45) mmHg ABG pO2 (83-108) mmHg ABG HCO3 (21-25) mmol/L ABG Total CO2 (19-24) mmol/L ABG O2 Saturation (94-97) % Carbon Dioxide (22-30) mmol/L BUN (7-17) mg/dL Creatinine (0.52-1.04) mg/dL Glucose (74-99) mg/dL POC Glucose (mg/dL) 137 H 134 H (75-99) mg/dL Calcium (8.4-10.2) mg/dL Lactate Dehydrogenase (313-618) U/L Creatine Kinase (30-135) U/L Crossmatch See Detail 11/08/20 11/08/20 11/09/20 Range/Units 16:49 23:25 03:58 RBC 2.89 L (3.80-5.40) m/uL Hgb 8.0 L D (11.4-16.0) gm/dL Hct 25.2 L (34.0-46.0) % RDW 18.1 H (11.5-15.5) % Plt Count 130 L (150-450) k/uL Lymphocytes # 0.4 L (1.0-4.8) k/uL Fibrinogen 159 L (200-500) mg/dL D-Dimer 7.09 H (<0.60) mg/L FEU ABG pCO2 (35-45) mmHg ABG pO2 (83-108) mmHg ABG HCO3 (21-25) mmol/L ABG Total CO2 (19-24) mmol/L ABG O2 Saturation (94-97) % Carbon Dioxide (22-30) mmol/L BUN (7-17) mg/dL Creatinine (0.52-1.04) mg/dL Glucose (74-99) mg/dL POC Glucose (mg/dL) 149 H (75-99) mg/dL Calcium (8.4-10.2) mg/dL Lactate Dehydrogenase (313-618) U/L Creatine Kinase (30-135) U/L Crossmatch 11/09/20 11/09/20 11/09/20 Range/Units 03:58 03:58 03:58 RBC 2.73 L (3.80-5.40) m/uL Hgb 7.8 L (11.4-16.0) gm/dL Hct 23.8 L (34.0-46.0) % RDW 18.3 H (11.5-15.5) % Plt Count 123 L (150-450) k/uL Lymphocytes # 0.3 L (1.0-4.8) k/uL Fibrinogen (200-500) mg/dL D-Dimer (<0.60) mg/L FEU ABG pCO2 (35-45) mmHg ABG pO2 (83-108) mmHg ABG HCO3 (21-25) mmol/L ABG Total CO2 (19-24) mmol/L ABG O2 Saturation (94-97) % Carbon Dioxide 37 H (22-30) mmol/L BUN 28 H (7-17) mg/dL Creatinine 0.51 L (0.52-1.04) mg/dL Glucose 142 H (74-99) mg/dL POC Glucose (mg/dL) (75-99) mg/dL Calcium 7.8 L (8.4-10.2) mg/dL Lactate Dehydrogenase 1249 H (313-618) U/L Creatine Kinase 23 L (30-135) U/L Crossmatch 11/09/20 11/09/20 11/09/20 Range/Units 05:02 05:30 08:38 RBC (3.80-5.40) m/uL Hgb (11.4-16.0) gm/dL Hct (34.0-46.0) % RDW (11.5-15.5) % Plt Count (150-450) k/uL Lymphocytes # (1.0-4.8) k/uL Fibrinogen (200-500) mg/dL D-Dimer (<0.60) mg/L FEU ABG pCO2 58 H 55 H (35-45) mmHg ABG pO2 200 H 77 L (83-108) mmHg ABG HCO3 37 H 38 H (21-25) mmol/L ABG Total CO2 38 H 40 H (19-24) mmol/L ABG O2 Saturation 99.9 H (94-97) % Carbon Dioxide (22-30) mmol/L BUN (7-17) mg/dL Creatinine (0.52-1.04) mg/dL Glucose (74-99) mg/dL POC Glucose (mg/dL) 156 H (75-99) mg/dL Calcium (8.4-10.2) mg/dL Lactate Dehydrogenase (313-618) U/L Creatine Kinase (30-135) U/L Crossmatch Microbiology - Last 24 Hours (Table) 11/03/20 22:30 Blood Culture - Preliminary Blood No Growth after 120 hours 11/08/20 12:07 Gram Stain - Preliminary Sputum Sputum Culture - Preliminary 11/07/20 19:00 Gram Stain - Preliminary Pleural Fluid Body Fluid Culture - Preliminary Presumptive Staph aureus
[2020-11-09 17:10] LABS: Glucose,Whole Blood 134 mg/dL (75-99)
[2020-11-09] MEDS: CISATRACURIUM 200 MG in SODIUM CHLORIDE 0.9% 180 ML IV SCH (19:28)
[2020-11-09] MEDS: MELATONIN 3 MG TABLET PO SCH (19:43)
[2020-11-09 23:42] LABS: Glucose,Whole Blood 143 mg/dL (75-99)
[2020-11-10] MEDS: ARTIFICIAL TEARS-HYPROMELLOSE DROPS 15 ML BTL BOTH EYES SCH ×7 (00:02→23:19)
[2020-11-10] MEDS: HYDROmorphone 1 MG/ML 1 ML SYRINGE IVP PRN ×6 (02:08→23:18)
[2020-11-10 03:40] LABS: Anisocytosis Slight; Basophils % (A) 0 %; Eosinophils % (A) 0 %; HCT 24.5 % (34.0-46.0); HGB 7.7 gm/dL (11.4-16.0); Hypochromasia Moderate; Lymphocytes # (A) 0.3 k/uL (1.0-4.8); Lymphocytes % (A) 4 %; MCH 27.5 pg (25.0-35.0); MCHC 31.5 g/dL (31.0-37.0); MCV 87.4 fL (80.0-100.0); Mean Platelet Volume 11.1; Monocytes # (A) 0.2 k/uL (0-1.0); Monocytes % (A) 3 %; Neutrophils # (A) 6.9 k/uL (1.3-7.7); Neutrophils % (A) 92 %; Platelet Count 126 k/uL (150-450); Poikilocytosis Slight; RBC 2.81 m/uL (3.80-5.40); RDW 18.4 % (11.5-15.5); WBC 7.5 k/uL (3.8-10.6)
[2020-11-10 03:58] LABS: D-Dimer 8.05 mg/L FEU (<0.60)
[2020-11-10 04:00] LABS: African American GFR (CKD) >90 (>60 ml/min/1.73 sqM); Blood Urea Nitrogen 28 mg/dL (7-17); C Reactive Protein <5.0 mg/L (<10.0); Chloride 98 mmol/L (98-107); Creatine Kinase 65 U/L (30-135); Glucose 140 mg/dL (74-99); LDH 1338 U/L (313-618); Non-African American GFR(CKD) >90 (>60 ml/min/1.73 sqM); Potassium 3.3 mmol/L (3.5-5.1); Sodium 139 mmol/L (137-145)
[2020-11-10 04:04] LABS: Anion Gap 3 mmol/L; Carbon Dioxide 38 mmol/L (22-30)
[2020-11-10 04:16] LABS: ABG PCO2 51 mmHg (35-45); ABG PH 7.52 (7.35-7.45); ABG PO2 69 mmHg (83-108); ABG TCO2 43 mmol/L (19-24); Allen Test Performed? Yes
[2020-11-10 04:20] LABS: ABG HCO3 41 mmol/L (21-25)
[2020-11-10 05:18] LABS: Glucose,Whole Blood 150 mg/dL (75-99)
[2020-11-10] MEDS: methylPREDNISolone SOD SUCCI 125 MG/2 ML VIAL IV SCH ×4 (05:22→23:18)
[2020-11-10] MEDS: INSULIN ASPART (NovoLOG) 100 UNIT/ML VIAL SQ SCH ×3 (05:23→18:08)
[2020-11-10] MEDS: POTASSIUM BICARBONATE/CIT AC 20 MEQ TABLET.EFF NG-TUBE SCH ×2 (05:23→09:40)
--- NOTE | 2020-11-10 08:08 | XR ---
EXAMINATION TYPE: XR chest 1V portable DATE OF EXAM: 11/10/2020 COMPARISON: 11/09/2020 HISTORY: SOB, Follow Up FINDINGS: There is a new left-sided pneumothorax estimated at 15% with apical to the pleural distance of 1.8 cm . Stable right apical pneumothorax measures 6 mm unchanged from prior study. Right-sided chest tube i s in place. There is evidence of subcutaneous emphysema. Endotracheal tube as well as a left subclavi an central venous line are unchanged in position. NG tube is seen coursing to the stomach. Airspace o f perihilar and basilar infiltrates are unchanged. Stable appearance of the cardio-mediastinal struct ures at this time. IMPRESSION: 1. Interval development of the N estimated 15% left-sided pneumothorax. 2. Otherwise stable examination. A [place] level critical message alert has been initiated for Armando Conn DO via the [employer] Critical Results System on 11/10/2020 8:06 AM. This message alert has been sent to Armando Conn DO via the preferences provided by the clinician for the receipt of Radiology Critical Findings. Message ID [id number].
--- NOTE | 2020-11-10 09:02 | P.PN ---
Subjective Progress Note Date: 11/10/20 39-year-old female patient is currently in the intensive care unit because of covid 19 related pneumonia with acute hypoxic respiratory failure. The patient presented to the hospital with worsening shortness of breath and fever and chills and congestion. She checked positive for covid 19 on 10/30/2020. The patient is also known to have previous history of GI bleeds, she has nonbleeding antral ulcers 2, she has history of migraine, fibromyalgia, chronic anxiety/depression and chronic back pain and irritable bowel syndrome. She has mild intermittent chronic bronchial asthma and she has been maintained on Advair. She has been in the intensive care unit for now. The patient after being admitted to the intensive care unit, she decompensated and she developed worsening in shortness of breath She has currently intubated on a mechanical ventilator. She was intubated on 11/06/2020 because of worsening respiratory status. While on a mechanical ventilator, the patient developed also a right- sided pneumothorax. Based on that, right-sided chest tube was inserted. For now, the patient a mechanical ventilator. She is sedated with propofol which is currently running at 60 mcg/kg per minute. The patient is paralyzed with Nimbex at 0.5/kg per minute.. She is on a mechanical ventilator on assist control mode at the rate of 24, FiO2 of 100% and PEEP of 10 with a tidal volume of 400. The IV fluids running at 75 mL an hour of normal saline. The patient is currently received Lovenox, Solu-Medrol, vitamin C, vitamin D3, and zinc, as well as TOCI. Chest x-ray is showing a right-sided chest tube with persistent pneumothorax on the right. The blood culture from 11/03/2020 showed staph aureus, MSSA and the patient is currently on IV Ancef 2 g, every 8 hours. The patient is receiving normal enteral feeding for now. The repeat chest x-ray from today shows a 50% pneumothorax on the right. There is a right-sided chest tube in place. There is a left subclavian triple-lumen catheter. The patient continues to have diffuse bilateral pulmonary infiltrates. Blood gases from today shows a pH of 7.37 with a pCO2 of 57 and pO2 of 168 and this was on FiO2 of 100%. Hemoglobin today is down to 6.2. No signs of any acute GI bleeding. The patient will be transfused with a unit of packed RBC. The peak airway pressures around 35 with a static air a pressure of 34 while being on a mechanical ventilator. On today's evaluation of 11/09/2020, the patient remains sedated with propofol and paralyzed with Nimbex. Propofol is running at 75 mcg/kg per minute and Nimbex is running at 2 mg/kg per minute. The patient is well sedated and she is well-appearing paralyzed and she is very symptoms with the mechanical ventilator. She remained on assist control mode at the rate of 24 with a tidal volume of 400 and FiO2 of 65% with a PEEP of 10. She did have a bout of desaturation in the middle of the night. Blood gas was done and this was probably an 100% and he showed a pH of 7.41 with a pCO2 of 58 and pO2 of 200. I repeated blood gases will be needed to reevaluate her oxygenation on a 65% FiO2. Chest x-ray from today shows a small tiny right apical pneumothorax. Otherwise the chest x-ray findings are stable. There is diffuse breath and pulmonary infiltrates. There is improvement in the right-sided pneumothorax less than 5%. Orotracheal tube is in a good location. Peak airway pressure is 33 on a mechanical ventilator. In terms of her pneumonia which is a Covid 19 pneumonia, the patient remains on IV Solu-Medrol 60 mg every 6 hours. She is also on Lovenox for DVT prophylaxis 40 mg subcu. The LDH from today is at 1240 now which is down, the CRP is down to 8.3. Renal function is stable. Creatinine is at 0.5. The d-dimer is high at 7.09 and probably her Lovenox dose needs to be adjusted. She was given a unit of packed RBC yesterday and the hemoglobin came up to 7.8. She is hemodynamically stable. She is on no pressors for now. As mentioned earlier, she has previous history of GI bleeds and nonbleeding antral ulcers in addition to migraine, fibromyalgia, chronic anxiety and depression and chronic back pain addition to asthma. The patient is currently on IV Protonix and she is feeding with vital high protein. She has a left-sided subclavian triple-lumen catheter in place. His evaluation of 11/10/2020, the patient remains sedated with propofol running at 75 mcg/kg per minute. Note that the patient was taken off Nimbex yesterday and that was successful. She was paralyzed for a few days post intubation and I was able to get it off this paralytics. Meanwhile, the patient had a right- sided pneumothorax and I repositioned and placed another chest tube on the right which was successfully expanded right lung although on today's chest x-ray there is a tiny pneumothorax in the right apex however there is a larger pneumothorax on the left which is in order of 10-15%. Meanwhile, I was able to lower the patient's PEEP and currently the patient is an assist-control mode at a tidal volume of 400, FiO2 of 60%, PEEP of 8 and respiratory rate of 24. The blood gases from today showed a pH of 7.52 with a pCO2 of 51 and pO2 of 69. Peak airway pressure on the mechanical ventilator is 27. As such, the patient will need a left-sided chest tube insertion and this will be done at the bedside today. In terms of her Covid 19 pneumonia, the patient remains on IV Solu- Medrol. The patient remains on Lovenox 30 mg subcutaneous for DVT prophylaxis twice a day.. The inflammatory markers from today showing an LDH level of 1338 which is higher and his CRP level of <5 and the patient d-dimer currently is elevated at 8.05. She is receiving enteral feeding for nutritional support. She is currently on vital high protein at the rate of 28 mL an hour. No signs of any GI bleeding. She is on IV Protonix. Her hemoglobin today is at 7.7. No other significant events overnight. She was given a brief sedation holiday today and she was able to arouse quickly and open up her eyes. The active issue for now as it development of a left-sided pneumothorax for which chest tube will be needed. The right-sided chest tube is in place and there is minimal amount of air leak and the patient has developed a small subcutaneous emphysema on the right. Output from the chest tube is in order of 45 mL over the past 24 hours. Objective - Vital Signs Vital signs: Vital Signs Temp 98.6 F 11/10/20 00:00 Pulse 84 11/10/20 07:00 Resp 24 11/10/20 07:00 BP 132/85 11/10/20 03:00 Pulse Ox 92 L 11/10/20 07:00 Intake & Output 03/11/10/20 11/10/20 18:59 06:59 18:59 Intake Total 1208.916 839.856 48 Output Total 3505 1530 40 Balance -2296.084 -690.144 8 Intake: IV 350 240 20 Sodium Chloride 0.9% 1, 350 240 20 000 ml @ 20 mls/hr IV . Q24H [facility] Rx#:[id number] Intake, IV Titration 410.916 173.856 Amount Cisatracurium 200 mg In 31.753 Sodium Chloride 0.9% 180 ml @ 2 MCG/KG/MIN 7.076 mls/hr IV .Q24H [facility] Rx#: [id number] ceFAZolin 2 gm In Sodium 100 Chloride 0.9% 50 ml @ 100 mls/hr IVPB Q8HR [facility] Rx# :[id number] propofoL 1,000 mg In 279.163 173.856 Empty Bag 1 bag @ Titrate IV .Q0M [facility] Rx#: [id number] Tube Feeding 328 336 28 Other 120 90 Output: Chest Tube Drainage 45 60 Chest Tube Right 45 60 Urine 3460 1470 40 Other: Voiding Method Indwelling Catheter Indwelling Catheter ABP, PAP, CO, CI - Last Documented Arterial Blood Pressure 149/72 - Exam The patient is currently sedated and paralyzed. There is an orally placed endotracheal tube, and NG tube. HEENT examination is grossly unremarkable. Mucous membranes are moist. Neck supple. Full range of motion. No adenopathy thyromegaly or neck vein distention. Cardiovascular examination reveals regular rhythm rate. S1-S2 normal. No S3 or S4. No discernible murmur noted. Heart sounds are distant. Heart rate is 94 bpm. Lungs reveal bilateral coarse rhonchi. No wheezes or crackles. Breath sounds are essentially equal bilaterally. A right-sided chest tube is noted. I noted that there is no evidence of any air leak and the patient has diminished breath sound the right compared to left. Crackles are present bilaterally, and the patient has a small subcutaneous emphysema along the right lateral chest area. Abdominal exam revealed normal bowel sounds. The abdomen was soft, non-tender, and without masses, organomegaly, or appreciable enlargement of the abdominal aorta. Extremities are intact. No cyanosis clubbing or edema. Skin is without rash or lesion. Neurologic Patient is off paralysis and the patient was able to arouse while being given a sedation holiday. She was moving all 4 extremities and there was no focal neurological deficits. - Labs CBC & Chem 7: 11/10/20 03:30 11/10/20 03:30 Labs: Abnormal Lab Results - Last 24 Hours (Table) 11/08/20 11/09/20 11/09/20 Range/Units 03:13 11:35 17:08 RBC (3.80-5.40) m/uL Hgb (11.4-16.0) gm/dL Hct (34.0-46.0) % RDW (11.5-15.5) % Plt Count (150-450) k/uL Lymphocytes # (1.0-4.8) k/uL Fibrinogen (200-500) mg/dL D-Dimer (<0.60) mg/L FEU ABG pH (7.35-7.45) ABG pCO2 (35-45) mmHg ABG pO2 (83-108) mmHg ABG HCO3 (21-25) mmol/L ABG Total CO2 (19-24) mmol/L Potassium (3.5-5.1) mmol/L Carbon Dioxide (22-30) mmol/L BUN (7-17) mg/dL Creatinine (0.52-1.04) mg/dL Glucose (74-99) mg/dL POC Glucose (mg/dL) 153 H 134 H (75-99) mg/dL Calcium (8.4-10.2) mg/dL Lactate Dehydrogenase (313-618) U/L IgG 471.0 L (700.0-1600.0) mg/dL 11/09/20 11/10/20 11/10/20 Range/Units 23:40 03:30 03:30 RBC (3.80-5.40) m/uL Hgb (11.4-16.0) gm/dL Hct (34.0-46.0) % RDW (11.5-15.5) % Plt Count (150-450) k/uL Lymphocytes # (1.0-4.8) k/uL Fibrinogen 139 L (200-500) mg/dL D-Dimer 8.05 H (<0.60) mg/L FEU ABG pH (7.35-7.45) ABG pCO2 (35-45) mmHg ABG pO2 (83-108) mmHg ABG HCO3 (21-25) mmol/L ABG Total CO2 (19-24) mmol/L Potassium 3.3 L (3.5-5.1) mmol/L Carbon Dioxide 38 H (22-30) mmol/L BUN 28 H (7-17) mg/dL Creatinine 0.41 L (0.52-1.04) mg/dL Glucose 140 H (74-99) mg/dL POC Glucose (mg/dL) 143 H (75-99) mg/dL Calcium 8.0 L (8.4-10.2) mg/dL Lactate Dehydrogenase 1338 H (313-618) U/L IgG (700.0-1600.0) mg/dL 11/10/20 11/10/20 11/10/20 Range/Units 03:30 04:10 05:16 RBC 2.81 L (3.80-5.40) m/uL Hgb 7.7 L (11.4-16.0) gm/dL Hct 24.5 L (34.0-46.0) % RDW 18.4 H (11.5-15.5) % Plt Count 126 L (150-450) k/uL Lymphocytes # 0.3 L (1.0-4.8) k/uL Fibrinogen (200-500) mg/dL D-Dimer (<0.60) mg/L FEU ABG pH 7.52 H (7.35-7.45) ABG pCO2 51 H (35-45) mmHg ABG pO2 69 L (83-108) mmHg ABG HCO3 41 H* (21-25) mmol/L ABG Total CO2 43 H (19-24) mmol/L Potassium (3.5-5.1) mmol/L Carbon Dioxide (22-30) mmol/L BUN (7-17) mg/dL Creatinine (0.52-1.04) mg/dL Glucose (74-99) mg/dL POC Glucose (mg/dL) 150 H (75-99) mg/dL Calcium (8.4-10.2) mg/dL Lactate Dehydrogenase (313-618) U/L IgG (700.0-1600.0) mg/dL Microbiology - Last 24 Hours (Table) 11/03/20 22:30 Blood Culture - Final Blood No Growth after 144 hours 11/07/20 19:00 Gram Stain - Final Pleural Fluid Body Fluid Culture - Final Staphylococcus aureus 11/08/20 18:50 Blood Culture - Preliminary Blood No Growth after 24 hours Assessment and Plan Plan: 1 Acute hypoxemic respiratory failure secondary to acute COVID 19 pneumonia. the patient is currently intubated on a mechanical ventilator. the patient is sedated and paralyzed. The peak airway pressure is 27 static pressure is 25. The patient is on IV Solu-Medrol. The patient is on IV Solu-Medrol. The patient also received tocilizumab. No Remdesivir. During the course of his treatment, the patient developed a right-sided pneumothorax requiring a right- sided chest tube insertion. The right lung has expanded nicely. On today's chest x-ray, there is a 10-15% development of a pneumothorax on the left. Consider barotrauma related to mechanical ventilation and bilateral pneumothoraces. The right-sided chest tube is in place and the pneumothorax on the right is minimal and there is positive air leak. A left-sided chest tube will be needed. Blood. Was noted from today. Chest x-ray was also noted. 2 Acute exacerbation of mild intermittent chronic bronchial asthma secondary to above. 3 Anemia in a patient with a known history of nonbleeding ulcers with previous EGD and GI bleed. The patient got transfused with a packed RBC units and hemoglobin is improved and is stable for now and there is no signs of GI bleeding and the patient is currently on a combination of Protonix and Carafate. 4 right-sided pneumothorax post right-sided chest tube insertion with adequate expansion of the right lung, currently the patient has a less than 5% pneumothor ax on the right and there is intermittent air leak. Meanwhile the patient developed a left sided pneumothorax and order of 10-15%. A left-sided chest tube will be inserted. 5 History of anxiety/depression. 6 History of immunodeficiency disorder. 7 Irritable bowel syndrome. 8 History of migraine. 9 Fibromyalgia. 10 History of chronic back pain. 11 MSSA bacteremia currently on IV Ancef 2 g every 8 hours on the patient also had staph aureus and the pleural fluid which obviously raises the concern for a pneumonia with parapneumonic effusion and pleural space infection. Consider staphylococcal pneumonia accordingly. 12 History of chronic tobacco dependence, vaping., Vancomycin can be discontinued 13 acute on top of chronic anemia with a drop in hemoglobin down to 6.2 and the patient will be given a unit of packed RBC. Is improved and septal 7.8. Plan: Patient is currently off paralytics Continue sedation with propofol Keep the right-sided chest tube in place Insert a left-sided chest tube Monitor chest x-ray findings Repeated blood gases post chest tube insertion and we will insert the vent changes Right-sided chest tube is in a good location, pneumothorax less than 5%, and there is intermittent air leak Continue IV Solu-Medrol Continue monitoring the inflammatory markers. The markers are all improving with exception of d-dimer which is high and the patient will be placed on Lovenox 30 mg subcu every 12 hours which is half a milligram per KG every 12 Insert a dose of Lasix 40 mg IV push enteral feeding for nutritional support vital high protein at the rate of 28 mL an hour continue the Ancef Continue oral Protonix 40 mg twice a day Consider giving get a paralytic holiday at a later stage Condition is critical. We'll continue to follow make further recommendations based on her progress. Critically care evaluation that was done and more than 30 minutes Time with Patient: Greater than 30
[2020-11-10] MEDS ORDERED: CISATRACURIUM 2 MG/ML 5 ML VIAL IV ONE ×2 (09:09→09:39)
--- NOTE | 2020-11-10 09:22 | P.PCN ---
Date of Procedure: 11/10/20 Preoperative Diagnosis: Left-sided pneumothorax Postoperative Diagnosis: Left-sided pneumothorax Procedure(s) Performed: Chest tube insertion, left-sided Anesthesia: local Surgeon: Ofelia Davison Estimated Blood Loss (ml): 0 Pathology: other Condition: critical Disposition: ICU Operative Findings: Disposition: ICU Operative Findings: A time-out was completed verifying correct patient, procedure, site, positioning, and special equipment if applicable. The patient was positioned appropriately for chest tube placement. The patient' s left chest was prepped and draped in sterile fashion. 1% Lidocaine was used to anesthetize the surrounding skin area. No incision was done as the patient had a left-sided chest tube already placed earlier. The previous inserted a chest tube was removed. Using the same incision,. blunt dissection a subcutaneous tunnel was created cephalad just adjacent to the superior rib. The pleural space was entered bluntly and gush of air was observed. A finger was inserted into the pleural space to check for anatomy and guide tube insertion. A 28 thoracostomy tube was inserted using a Maria Fernanda clamp and positioned appropriately. The chest tube was sutured securely to the skin and a sterile dressing applied. A pleurevac was attached to the chest tube and a chest x-ray obtained. I personally performed this procedure and I was was present for the entire procedure. Estimated Blood Loss: 0 The patient tolerated the procedure well and there were no complications. X-ray is to follow
[2020-11-10] MEDS: ENOXAPARIN 30 MG/0.3 ML SYRINGE SQ SCH ×2 (09:40→19:54)
[2020-11-10] MEDS: CHLORHEXIDINE GLUCONATE 15 ML CUP MUCOUS MEM SCH ×2 (09:40→19:53)
[2020-11-10] MEDS: DULoxetine HCL 60 MG CAPSULE.DR PO SCH (09:40)
[2020-11-10] MEDS: PANTOPRAZOLE 40 MG/10 ML VIAL IVP SCH ×2 (09:40→19:54)
[2020-11-10] MEDS: ARIPiprazole 5 MG TAB PO SCH (09:41)
[2020-11-10] MEDS: buPROPion XL 150 MG TAB.ER.24H PO SCH (09:44)
[2020-11-10] MEDS: SUCRALFATE 1 GM TAB PO SCH ×4 (09:44→19:53)
[2020-11-10] MEDS: ASCORBIC ACID 500 MG TAB PO SCH (09:46)
[2020-11-10] MEDS: CHOLECALCIFEROL 25 MCG (1000 IU) TABLET PO SCH (09:47)
[2020-11-10] MEDS: ZINC SULFATE 220 MG CAP PO SCH (09:47)
--- NOTE | 2020-11-10 09:54 | XR ---
EXAMINATION TYPE: XR chest 1V portable DATE OF EXAM: 11/10/2020 COMPARISON: 11/10/2020 HISTORY: Chest tube placement TECHNIQUE: Single frontal view of the chest is obtained. FINDINGS: There are bilateral small apical pneumothoraces measuring less than 5%. Improved on the le ft and stable on the right. Bilateral chest tubes are seen. Diffuse pulmonary disease is noted and th ere is subcutaneous emphysema on the right. Heart is normal in size. NG tube in good position. Left-s ided central line in good position. ET tube stable and in good position. IMPRESSION: 1. Bilateral apical pneumothoraces measuring less than 5%. Stable on the right and improved on the le ft. 2. Diffuse bilateral pulmonary parenchymal disease stable
--- NOTE | 2020-11-10 10:37 | P.PN ---
Subjective Progress Note Date: 11/10/20 HISTORY OF PRESENT ILLNESS This is a 39-year-old female patient of Dr. Gonzalez with past medical history of GI bleed in 2008, July 2020 was admitted for GI bleed secondary to 2 no nbleeding antral ulcers requiring transfusion 2 units packed RBCs, tobacco use, alcohol abuse, recurrent depression, generalized anxiety disorder. Patient was diagnosed with COVID-19 on October 30. She complains of increasing shortness of breath, cough, congestion, fever and chills and hoarseness. She continued to worsen significantly over the past 2 days. She also complains of bloody sputum production. Patient came into [facility] emergency center for evaluation. Temperature 98.3, heart rate 102, respiratory rate 40, blood pressure 95/64, pulse ox 71%. EKG was a sinus rhythm no acute ST elevation. W BC 9.4, hemoglobin 8.6, platelet count 284. Sodium 135, potassium 2.8, chloride 102, CO2 21, BUN 19 creatinine 0.88. Blood sugar 92. AST 71, ALT 24, alkaline phosphatase 264 [place] phosphatase 264, LDH 2067, CA reactive protein 320.8. Lactic acid 3.1. CT angiogram of the chest reveals no evidence pulmonary embolism. Severe pulmonary interstitial and airspace edema. Chest x-ray reveals pulmonary interstitial pneumonia worse than recent exam. Some airspace component. Patient is status post 2 L of IV fluids, potassium replacement, Dilaudid, patient seen by pulmonary medicine and started on Tocilizumab. 11/05: Patient remains in the intensive care unit. She is a nonrebreather mask and AorVp and can maintain a pulse ox in the 90s. If she removes these, patient follows less than 70s. She is very anxious today and has many questions. She does have large number of psychiatric medications which have been resumed. We will also add and Xanax twice daily as needed. She has been afebrile, heart rate 89, blood pressure 116/79, pulse ox 95%. Repeat blood work reveals WBC 11.8, hemoglobin 7.7, platelet count 243. D-dimer 1.95. Sodium 135, electrolyt es otherwise normal, BUN 18 creatinine 0.45. Blood sugars running between 117- 129. AST 48, ALT 18, alkaline phosphatase 218, LDH 2243. C-reactive protein 254. Patient had 2 blood cultures, one is showing no growth at 24 hours and the second obtained at 2240 showing gram-positive cocci. She was started on vancomycin. 11/06: Patient remains in ICU, still on a BiPAP treatments,, continuously, terri barber did not have any meals for the past 72 hours secondary to hypoxemia and air hunger without the reading device. Patient has not slept well at all, cytokinin markers are elevated, blood culture growing Staphylococcus from specimen collected November 03 are pending sensitivity. Patient currently is on IV cefazolin, IV vancomycin, followed by infectious disease. So Medrol 60 mg every 6 hours, most of her oral medications cannot be complied upon secondary to hypoxemia event removed briefly. Hemoglobin at 7.2, blood gas shows pCO2 54, PaO2 of 67, 7.39 pH. Double basic count of under 10, creatinine of 0.5, LDH 1845, alkaline phosphatase 194. Albumin low at 2.6, blood pressure stable,Heart rate of 114, blood pressure of 135/90. Pulse ox 85-86 at BiPAP treatments. 11/07 yesterday afternoon, patient required placement of right chest tube secondary to spontaneous pneumothorax placed by the ER doctor,, patient has worsening respiratory status, and was intubated by the ER physician currently with tidal volume of 40, PEEP of 10, assist control rate of 24, FiO2 of 80%. There is residual small pneumothorax right side, there is a left subclavian triple-lumen placed by Dr. Harrington today. There is consult for nutrition, has an OG tube, for which feedings would be started once completed. Chest x-ray shows bilateral diffuse infiltrates, creatinine of 0.4, LDH of 1630, CRP of 36 platelet count 132, hemoglobin 7.3 11/08: Patient remains in the intensive care unit, intubated and on mechanical ventilation with FiO2 100%, tidal volume 400 and PEEP of 10. Patient is currently on sedation. Repeat chest x-ray today reveals increase in size of right-sided pneumothorax since previous measuring of 3.5 cm today compared to 1.2 cm yesterday. Severe interstitial infiltrates throughout the lungs bilaterally slightly increased from previous. A second right-sided chest tube was placed today by Dr. Davison. Repeat blood work reveals WBC 5.2, hemoglobin 6.2, platelet count 133. Sodium 141, potassium 3.5, chloride 107, CO2 35, BUN 24 and creatinine 0.46. Blood sugar 132. Alkaline phosphatase 154. D-dimer 6.35. Patient is ordered for transfusion 1 unit packed RBCs today. Blood culture is MSSA and patient is on Ancef 2 g every 8 hours. Pleural fluid culture in progress. Patient has been afebrile, heart rate low 100s, respiratory rate 27, blood pressure 135/93, pulse ox 96%. Patient will be started on tube feedings today. 11/09: She remains intubated and on mechanical ventilation. She is on both Nimbex and Propofol. She remains intubated and on mechanical ventilation with tidal volume 400, FiO2 65 and PEEP of 10. Repeat chest x-ray reveals improving right apical pneumothorax measuring less than 5%. Stable bilateral diffuse infiltrates. WBC 8, hemoglobin 7.8 status post 1 unit of packed RBCs. Platelet count 123. Sodium 141, potassium 3.9, chloride 105, CO2 37. BUN 28 creatinine 0.51. Blood sugar 142. Inflammatory markers are improving with d-dimer 7.09, fibrinogen 159, LDH 1249, C-reactive protein 8.3, CK 23. Patient is on Kefzol for antibiotics. She remains with right-sided chest tube. She has been a febrile, heart rate 80, blood pressure 116/78, pulse ox 92%. Patient is not requiring vasopressors. 11/10: Initial chest x-ray this morning revealed interval development of 50% left-sided pneumothorax. Patient is status post chest tube placement on the left by Dr. Davison. Repeat chest x-ray revealed bilateral apical pneumothoraces measuring less than 5%. Stable on the right improved on the left. Diffuse bilateral pulmonary parenchymal disease stable. Patient remains intubated and on mechanical ventilation. She is now off Nimbex. Tidal volume 500, FiO2 60% and PEEP of 8. Patient is on tube feedings. Repeat blood work reveals WBC 7.5, hemoglobin 7.7, platelet count 126. Sodium 139, potassium 3.3 and was replaced, chloride 98, CO2 38, BUN 28 creatinine 0.41. Cultures are running between 134-150. D-dimer 0.05, LDH 1338, CK 65, C-reactive protein less than 5. Sputum culture is in progress. Blood cultures no growth at 24 hours. All previous blood cultures are showing no growth. IgG is low at 471. Request a nurse contact Dr. Davison about IVIG infusion. REVIEW OF SYSTEMS Unable to obtain due to intubation PHYSICAL EXAMINATION Full examination deferred due to Covid 19 isolation, intubation and ICU. Gen: This is a 39-year-old female. Patient is resting in the ICU bed on the intubated and on mechanical ventilation. She appears to be in no acute respiratory distress. HEENT: Head is atraumatic, normocephalic. NEUROLOGICAL: Patient is sedated. ASSESSMENT AND PLAN 1. Acute hypoxic respiratory failure secondary to acute Covid 19 pneumonia. Consult with pulmonary medicine appreciated. Status post Tocilizumab. Patient intubated on November 06. Continue Lovenox 30 mg subcu twice daily, Solu-Medrol 60 mg IV push every 6 hours, zinc and vitamin supplements. 2. Right sided pneumothorax requiring chest tube 11/06 and 11/08. 3. Acute exacerbation of mild intermittent bronchial asthma. Continue Ventolin inhaler 4 times daily as needed. 4. Left-sided pneumothorax requiring chest tube placed on 11/10. 5. Primary immunodeficiency. Low IgG. Possible IVIG infusion of [address] Davison. 6. Chronic anemia most likely due to history of bleeding ulcers and alcohol abuse. 7. Tobacco use and dependence including taping. 8. Daily alcohol use/abuse. Patient apparently has had no alcohol intake for 7 days. Monitor closely for DTs 9. Recurrent depression and generalized anxiety disorder. Continue Abilify 7.5 mg daily, Wellbutrin 150 mg daily, BuSpar 10 mg as needed for anxiety, Cymbalta 60 mg daily. 10. Acute anemia secondary to sepsis without blood loss. Transfuse 1 unit of packed RBCs. 11. Migraine headaches. Continue Fioricet as needed. Hold Inderal 60 mg daily. 12. Sepsis with MSSA bacteremia, POA. Continue Kafzol. 13. Moderate protein calorie malnutrition. Patient maintain on tube feedings 14. Gastroesophageal reflux disease with history of bleeding ulcers. Continue Protonix 40 mg daily and Carafate 1 g 4 times daily. 15. DVT prophylaxis. Lovenox. Prognosis: guarded DISCHARGE PLAN Home. Impression and plan of care have been directed as dictated by the signing ph ysician. Isabel Samayoa nurse practitioner acting as scribe for signing physician. Objective - Vital Signs Vital signs: Vital Signs Temp 98.6 F 11/10/20 00:00 Pulse 84 11/10/20 07:00 Resp 24 03/24/21 07:00 BP 132/85 11/10/20 03:00 Pulse Ox 92 L 11/10/20 07:00 Intake & Output 11/09/20 11/10/20 11/10/20 18:59 06:59 18:59 Intake Total 1208.916 839.856 148 Output Total 3505 1530 40 Balance -2296.084 -690.144 108 Intake: IV 350 240 20 Sodium Chloride 0.9% 1, 350 240 20 000 ml @ 20 mls/hr IV . Q24H [facility] Rx#:[id number] Intake, IV Titration 410.916 173.856 100 Amount Cisatracurium 200 mg In 31.753 Sodium Chloride 0.9% 180 ml @ 2 MCG/KG/MIN 7.076 mls/hr IV .Q24H [facility] Rx#: [id number] ceFAZolin 2 gm In Sodium 100 Chloride 0.9% 50 ml @ 100 mls/hr IVPB Q8HR [facility] Rx# :[id number] propofoL 1,000 mg In 279.163 173.856 100 Empty Bag 1 bag @ Titrate IV .Q0M [facility] Rx#: [id number] Tube Feeding 328 336 28 Other 120 90 Output: Chest Tube Drainage 45 60 Chest Tube Right 45 60 Urine 3460 1470 40 Other: Voiding Method Indwelling Catheter Indwelling Catheter ABP, PAP, CO, CI - Last Documented Arterial Blood Pressure 149/72 - Labs CBC & Chem 7: 11/10/20 03:30 11/10/20 03:30 Labs: Abnormal Lab Results - Last 24 Hours (Table) 11/08/20 11/09/20 11/09/20 Range/Units 03:13 11:35 17:08 RBC (3.80-5.40) m/uL Hgb (11.4-16.0) gm/dL Hct (34.0-46.0) % RDW (11.5-15.5) % Plt Count (150-450) k/uL Lymphocytes # (1.0-4.8) k/uL Fibrinogen (200-500) mg/dL D-Dimer (<0.60) mg/L FEU ABG pH (7.35-7.45) ABG pCO2 (35-45) mmHg ABG pO2 (83-108) mmHg ABG HCO3 (21-25) mmol/L ABG Total CO2 (19-24) mmol/L Potassium (3.5-5.1) mmol/L Carbon Dioxide (22-30) mmol/L BUN (7-17) mg/dL Creatinine (0.52-1.04) mg/dL Glucose (74-99) mg/dL POC Glucose (mg/dL) 153 H 134 H (75-99) mg/dL Calcium (8.4-10.2) mg/dL Lactate Dehydrogenase (313-618) U/L IgG 471.0 L (700.0-1600.0) mg/dL 11/09/20 11/10/20 11/10/20 Range/Units 23:40 03:30 03:30 RBC (3.80-5.40) m/uL Hgb (11.4-16.0) gm/dL Hct (34.0-46.0) % RDW (11.5-15.5) % Plt Count (150-450) k/uL Lymphocytes # (1.0-4.8) k/uL Fibrinogen 139 L (200-500) mg/dL D-Dimer 8.05 H (<0.60) mg/L FEU ABG pH (7.35-7.45) ABG pCO2 (35-45) mmHg ABG pO2 (83-108) mmHg ABG HCO3 (21-25) mmol/L ABG Total CO2 (19-24) mmol/L Potassium 3.3 L (3.5-5.1) mmol/L Carbon Dioxide 38 H (22-30) mmol/L BUN 28 H (7-17) mg/dL Creatinine 0.41 L (0.52-1.04) mg/dL Glucose 140 H (74-99) mg/dL POC Glucose (mg/dL) 143 H (75-99) mg/dL Calcium 8.0 L (8.4-10.2) mg/dL Lactate Dehydrogenase 1338 H (313-618) U/L IgG (700.0-1600.0) mg/dL 11/10/20 11/10/20 11/10/20 Range/Units 03:30 04:10 05:16 RBC 2.81 L (3.80-5.40) m/uL Hgb 7.7 L (11.4-16.0) gm/dL Hct 24.5 L (34.0-46.0) % RDW 18.4 H (11.5-15.5) % Plt Count 126 L (150-450) k/uL Lymphocytes # 0.3 L (1.0-4.8) k/uL Fibrinogen (200-500) mg/dL D-Dimer (<0.60) mg/L FEU ABG pH 7.52 H (7.35-7.45) ABG pCO2 51 H (35-45) mmHg ABG pO2 69 L (83-108) mmHg ABG HCO3 41 H* (21-25) mmol/L ABG Total CO2 43 H (19-24) mmol/L Potassium (3.5-5.1) mmol/L Carbon Dioxide (22-30) mmol/L BUN (7-17) mg/dL Creatinine (0.52-1.04) mg/dL Glucose (74-99) mg/dL POC Glucose (mg/dL) 150 H (75-99) mg/dL Calcium (8.4-10.2) mg/dL Lactate Dehydrogenase (313-618) U/L IgG (700.0-1600.0) mg/dL Microbiology - Last 24 Hours (Table) 11/03/20 22:30 Blood Culture - Final Blood No Growth after 144 hours 11/07/20 19:00 Gram Stain - Final Pleural Fluid Body Fluid Culture - Final Staphylococcus aureus 11/08/20 18:50 Blood Culture - Preliminary Blood No Growth after 24 hours
[2020-11-10] MEDS: ALBUTEROL HFA INHALER INHALATION PRN ×3 (11:44→19:51)
[2020-11-10 12:16] LABS: Glucose,Whole Blood 129 mg/dL (75-99)
[2020-11-10] MEDS: SODIUM CHLORIDE 0.9% 1,000 ML IV SCH (12:16)
[2020-11-10 12:19] LABS: Glucose,Whole Blood 146 mg/dL (75-99)
[2020-11-10 15:52] LABS: Ferritin 44.6 ng/mL (10.0-291.0)
[2020-11-10] MEDS ORDERED: POTASSIUM BICARBONATE/CIT AC 20 MEQ TABLET.EFF NG-TUBE SCH (17:00)
[2020-11-10 17:11] LABS: ABG Base Excess 15.7 mmol/L; ABG HCO3 39 mmol/L (21-25); ABG Oxygen Saturation 97.8 % (94-97); ABG PCO2 49 mmHg (35-45); ABG PH 7.51 (7.35-7.45); ABG PO2 92 mmHg (83-108); ABG TCO2 40 mmol/L (19-24)
[2020-11-10 17:13] LABS: Allen Test Performed? no
[2020-11-10 17:48] LABS: Glucose,Whole Blood 141 mg/dL (75-99)
[2020-11-10] MEDS: CISATRACURIUM 200 MG in SODIUM CHLORIDE 0.9% 180 ML IV SCH (18:10)
[2020-11-10] MEDS: MELATONIN 3 MG TABLET PO SCH (19:53)
[2020-11-10 23:19] LABS: Glucose,Whole Blood 129 mg/dL (75-99)
[2020-11-11] MEDS: INSULIN ASPART (NovoLOG) 100 UNIT/ML VIAL SQ SCH ×4 (03:18→17:38)
[2020-11-11] MEDS: HYDROmorphone 1 MG/ML 1 ML SYRINGE IVP PRN ×4 (03:44→20:13)
[2020-11-11] MEDS: ARTIFICIAL TEARS-HYPROMELLOSE DROPS 15 ML BTL BOTH EYES SCH ×5 (03:44→20:46)
[2020-11-11 04:46] LABS: D-Dimer 6.03 mg/L FEU (<0.60)
[2020-11-11 04:47] LABS: C Reactive Protein <5.0 mg/L (<10.0); Creatine Kinase 44 U/L (30-135); LDH 1234 U/L (313-618)
[2020-11-11 05:07] LABS: ABG Base Excess 14.1 mmol/L; ABG HCO3 37 mmol/L (21-25); ABG PCO2 46 mmHg (35-45); ABG PH 7.51 (7.35-7.45); ABG PO2 68 mmHg (83-108); ABG TCO2 39 mmol/L (19-24); Allen Test Performed? Yes
[2020-11-11 05:48] LABS: Glucose,Whole Blood 148 mg/dL (75-99)
[2020-11-11] MEDS: methylPREDNISolone SOD SUCCI 125 MG/2 ML VIAL IV SCH ×3 (05:54→17:14)
[2020-11-11 06:03] LABS: Anisocytosis Slight; Basophils % (A) 0 %; Eosinophils % (A) 0 %; HCT 33.2 % (34.0-46.0); HGB 10.3 gm/dL (11.4-16.0); Hypochromasia Moderate; Lymphocytes # (A) 0.3 k/uL (1.0-4.8); Lymphocytes % (A) 6 %; MCH 26.8 pg (25.0-35.0); MCHC 30.9 g/dL (31.0-37.0); MCV 86.8 fL (80.0-100.0); Mean Platelet Volume 10.7; Monocytes # (A) 0.2 k/uL (0-1.0); Monocytes % (A) 3 %; Neutrophils # (A) 5.2 k/uL (1.3-7.7); Neutrophils % (A) 90 %; Platelet Count 101 k/uL (150-450); Poikilocytosis Slight; RBC 3.83 m/uL (3.80-5.40); WBC 5.8 k/uL (3.8-10.6)
[2020-11-11 06:23] LABS: African American GFR (CKD) >90 (>60 ml/min/1.73 sqM); Anion Gap 1 mmol/L; Blood Urea Nitrogen 22 mg/dL (7-17); Calcium 8.3 mg/dL (8.4-10.2); Carbon Dioxide 38 mmol/L (22-30); Chloride 94 mmol/L (98-107); Glucose 144 mg/dL (74-99); Non-African American GFR(CKD) >90 (>60 ml/min/1.73 sqM); Potassium 3.8 mmol/L (3.5-5.1); Sodium 133 mmol/L (137-145)
[2020-11-11] MEDS ORDERED: Potassium Replacement Protocol 1 EACH MISC MISCELLANE PRN (06:29)
[2020-11-11] MEDS: SUCRALFATE 1 GM TAB PO SCH ×4 (06:39→20:13)
[2020-11-11] MEDS ORDERED: POTASSIUM BICARBONATE/CIT AC 20 MEQ TABLET.EFF NG-TUBE SCH (07:00)
[2020-11-11] MEDS: ALBUTEROL HFA INHALER INHALATION PRN ×2 (07:54→15:31)
--- NOTE | 2020-11-11 08:08 | P.PN ---
Subjective Progress Note Date: 11/11/20 39-year-old female patient is currently in the intensive care unit because of covid 19 related pneumonia with acute hypoxic respiratory failure. The patient presented to the hospital with worsening shortness of breath and fever and chills and congestion. She checked positive for covid 19 on 10/30/2020. The patient is also known to have previous history of GI bleeds, she has nonbleeding antral ulcers 2, she has history of migraine, fibromyalgia, chronic anxiety/depression and chronic back pain and irritable bowel syndrome. She has mild intermittent chronic bronchial asthma and she has been maintained on Advair. She has been in the intensive care unit for now. The patient after being admitted to the intensive care unit, she decompensated and she developed worsening in shortness of breath She has currently intubated on a mechanical ventilator. She was intubated on 11/06/2020 because of worsening respiratory status. While on a mechanical ventilator, the patient developed also a right- sided pneumothorax. Based on that, right-sided chest tube was inserted. For now, the patient a mechanical ventilator. She is sedated with propofol which is currently running at 60 mcg/kg per minute. The patient is paralyzed with Nimbex at 0.5/kg per minute.. She is on a mechanical ventilator on assist control mode at the rate of 24, FiO2 of 100% and PEEP of 10 with a tidal volume of 400. The IV fluids running at 75 mL an hour of normal saline. The patient is currently received Lovenox, Solu-Medrol, vitamin C, vitamin D3, and zinc, as well as TOCI. Chest x-ray is showing a right-sided chest tube with persistent pneumothorax on the right. The blood culture from 11/03/2020 showed staph aureus, MSSA and the patient is currently on IV Ancef 2 g, every 8 hours. The patient is receiving normal enteral feeding for now. The repeat chest x-ray from today shows a 50% pneumothorax on the right. There is a right-sided chest tube in place. There is a left subclavian triple-lumen catheter. The patient continues to have diffuse bilateral pulmonary infiltrates. Blood gases from today shows a pH of 7.37 with a pCO2 of 57 and pO2 of 168 and this was on FiO2 of 100%. Hemoglobin today is down to 6.2. No signs of any acute GI bleeding. The patient will be transfused with a unit of packed RBC. The peak airway pressures around 35 with a static air a pressure of 34 while being on a mechanical ventilator. On today's evaluation of 11/09/2020, the patient remains sedated with propofol and paralyzed with Nimbex. Propofol is running at 75 mcg/kg per minute and Nimbex is running at 2 mg/kg per minute. The patient is well sedated and she is well-appearing paralyzed and she is very symptoms with the mechanical ventilator. She remained on assist control mode at the rate of 24 with a tidal volume of 400 and FiO2 of 65% with a PEEP of 10. She did have a bout of desaturation in the middle of the night. Blood gas was done and this was probably an 100% and he showed a pH of 7.41 with a pCO2 of 58 and pO2 of 200. I repeated blood gases will be needed to reevaluate her oxygenation on a 65% FiO2. Chest x-ray from today shows a small tiny right apical pneumothorax. Otherwise the chest x-ray findings are stable. There is diffuse breath and pulmonary infiltrates. There is improvement in the right-sided pneumothorax less than 5%. Orotracheal tube is in a good location. Peak airway pressure is 33 on a mechanical ventilator. In terms of her pneumonia which is a Covid 19 pneumonia, the patient remains on IV Solu-Medrol 60 mg every 6 hours. She is also on Lovenox for DVT prophylaxis 40 mg subcu. The LDH from today is at 1240 now which is down, the CRP is down to 8.3. Renal function is stable. Creatinine is at 0.5. The d-dimer is high at 7.09 and probably her Lovenox dose needs to be adjusted. She was given a unit of packed RBC yesterday and the hemoglobin came up to 7.8. She is hemodynamically stable. She is on no pressors for now. As mentioned earlier, she has previous history of GI bleeds and nonbleeding antral ulcers in addition to migraine, fibromyalgia, chronic anxiety and depression and chronic back pain addition to asthma. The patient is currently on IV Protonix and she is feeding with vital high protein. She has a left-sided subclavian triple-lumen catheter in place. His evaluation of 11/10/2020, the patient remains sedated with propofol running at 75 mcg/kg per minute. Note that the patient was taken off Nimbex yesterday and that was successful. She was paralyzed for a few days post intubation and I was able to get it off this paralytics. Meanwhile, the patient had a right- sided pneumothorax and I repositioned and placed another chest tube on the right which was successfully expanded right lung although on today's chest x-ray there is a tiny pneumothorax in the right apex however there is a larger pneumothorax on the left which is in order of 10-15%. Meanwhile, I was able to lower the patient's PEEP and currently the patient is an assist-control mode at a tidal volume of 400, FiO2 of 60%, PEEP of 8 and respiratory rate of 24. The blood gases from today showed a pH of 7.52 with a pCO2 of 51 and pO2 of 69. Peak airway pressure on the mechanical ventilator is 27. As such, the patient will need a left-sided chest tube insertion and this will be done at the bedside today. In terms of her Covid 19 pneumonia, the patient remains on IV Solu- Medrol. The patient remains on Lovenox 30 mg subcutaneous for DVT prophylaxis twice a day.. The inflammatory markers from today showing an LDH level of 1338 which is higher and his CRP level of <5 and the patient d-dimer currently is elevated at 8.05. She is receiving enteral feeding for nutritional support. She is currently on vital high protein at the rate of 28 mL an hour. No signs of any GI bleeding. She is on IV Protonix. Her hemoglobin today is at 7.7. No other significant events overnight. She was given a brief sedation holiday today and she was able to arouse quickly and open up her eyes. The active issue for now as it development of a left-sided pneumothorax for which chest tube will be needed. The right-sided chest tube is in place and there is minimal amount of air leak and the patient has developed a small subcutaneous emphysema on the right. Output from the chest tube is in order of 45 mL over the past 24 hours. On 11/11/2020 I'm seeing the patient for a follow-up. As mentioned earlier, the patient is a case of Covid 19 related pneumonia with bilateral pneumothoraces any superinfection with MSSA as MSSA was cultured in the sputum, pleural fluid and in the blood. The patient also has bilateral chest tubes, right-sided chest tube was initially inserted and left-sided chest tube followed as the patient developed bilateral pneumothoraces. On today's evaluation, she is an assist- control mode with a rate of 24 with a tidal volume of 400 and FiO2 of 50% with a PEEP of 6. The blood gas shows a pH of 7.51 with a pCO2 of 46 and pO2 of 68. Ration continues to have some intermittent air leak in the right. No evidence of air leak on the left. Output from the chest tubes are minimal. The chest x- ray from today shows a limited pneumothorax on the left. Chest tubes are all in good location. The infiltrate on the right has improved especially the one in the periphery, and there is some persistent consolidation of the left lower lobe. Nevertheless, I was able to cut down the PEEP down to 6 with an FiO2 of 50% on this patient. Hemodynamically stable. She is on no pressors. She is on IV cefazolin. She is also on Solu-Medrol 60 mg every 6 hours. She is off paralytics. She is on enteral feeding for nutritional support through a orogastric tube. Adequate urine output. Fluid balance over the past 24 hours has been in the order of -2.9 L. She is on normal saline at the rate of 20 mL an hour. Inflammatory markers showed a LDH level of 1234 with a CRP level of less than 5. Objective - Vital Signs Vital signs: Vital Signs Temp 98.2 F 11/11/20 04:00 Pulse 86 11/11/20 07:00 Resp 24 11/11/20 07:00 BP 114/84 11/11/20 02:00 Pulse Ox 95 11/11/20 07:00 Intake & Output 11/10/20 11/11/20 11/11/20 18:59 06:59 18:59 Intake Total 1008.509 794 48 Output Total 1440 1720 50 Balance -431.491 -926 -2 Weight 58.967 kg Intake: IV 240 240 20 Sodium Chloride 0.9% 1, 240 240 20 000 ml @ 20 mls/hr IV . Q24H [facility] Rx#:[id number] Intake, IV Titration 376.509 100 Amount ceFAZolin 2 gm In Sodium 100 Chloride 0.9% 50 ml @ 100 mls/hr IVPB Q8HR [facility] Rx# :[id number] propofoL 1,000 mg In 276.509 100 Empty Bag 1 bag @ Titrate IV .Q0M [facility] Rx#: [id number] Tube Feeding 392 364 28 Other 90 Output: Chest Tube Drainage 155 Chest Tube Right 120 left chest tube 35 Urine 1440 1565 50 Other: Voiding Method Indwelling Catheter Indwelling Catheter # Bowel Movements 1 ABP, PAP, CO, CI - Last Documented Arterial Blood Pressure 144/81 - Exam The patient is currently sedated and paralyzed. There is an orally placed endotracheal tube, and NG tube. HEENT examination is grossly unremarkable. Mucous membranes are moist. Neck supple. Full range of motion. No adenopathy thyromegaly or neck vein distention. Cardiovascular examination reveals regular rhythm rate. S1-S2 normal. No S3 or S4. No discernible murmur noted. Heart sounds are distant. Heart rate is 94 bpm. Lungs reveal bilateral coarse rhonchi. No wheezes or crackles. Breath sounds are essentially equal bilaterally. A right-sided chest tube is noted. I noted that there is no evidence of any air leak and the patient has diminished breath sound the right compared to left. Crackles are present bilaterally, and the patient has a small subcutaneous emphysema along the right lateral chest area. The patient also has a left-sided chest tube. Output from the chest tubes have been minimal and there is intermittent air leak on the right. Abdominal exam revealed normal bowel sounds. The abdomen was soft, non-tender, and without masses, organomegaly, or appreciable enlargement of the abdominal aorta. Extremities are intact. No cyanosis clubbing or edema. Skin is without rash or lesion. Neurologic Patient is off paralysis and the patient was able to arouse while being given a sedation holiday. She was moving all 4 extremities and there was no focal neurological deficits. - Labs CBC & Chem 7: 11/11/20 04:03 11/11/20 04:03 Labs: Abnormal Lab Results - Last 24 Hours (Table) 11/10/20 11/10/20 11/10/20 Range/Units 12:03 12:18 17:07 Hgb (11.4-16.0) gm/dL Hct (34.0-46.0) % MCHC (31.0-37.0) g/dL RDW (11.5-15.5) % Plt Count (150-450) k/uL Lymphocytes # (1.0-4.8) k/uL Fibrinogen (200-500) mg/dL D-Dimer (<0.60) mg/L FEU ABG pH 7.51 H (7.35-7.45) ABG pCO2 49 H (35-45) mmHg ABG pO2 (83-108) mmHg ABG HCO3 39 H (21-25) mmol/L ABG Total CO2 40 H (19-24) mmol/L ABG O2 Saturation 97.8 H (94-97) % Sodium (137-145) mmol/L Chloride (98-107) mmol/L Carbon Dioxide (22-30) mmol/L BUN (7-17) mg/dL Creatinine (0.52-1.04) mg/dL Glucose (74-99) mg/dL POC Glucose (mg/dL) 129 H 146 H (75-99) mg/dL Calcium (8.4-10.2) mg/dL Lactate Dehydrogenase (313-618) U/L 11/10/20 11/10/20 11/11/20 Range/Units 17:47 23:17 04:03 Hgb (11.4-16.0) gm/dL Hct (34.0-46.0) % MCHC (31.0-37.0) g/dL RDW (11.5-15.5) % Plt Count (150-450) k/uL Lymphocytes # (1.0-4.8) k/uL Fibrinogen 133 L (200-500) mg/dL D-Dimer 6.03 H (<0.60) mg/L FEU ABG pH (7.35-7.45) ABG pCO2 (35-45) mmHg ABG pO2 (83-108) mmHg ABG HCO3 (21-25) mmol/L ABG Total CO2 (19-24) mmol/L ABG O2 Saturation (94-97) % Sodium (137-145) mmol/L Chloride (98-107) mmol/L Carbon Dioxide (22-30) mmol/L BUN (7-17) mg/dL Creatinine (0.52-1.04) mg/dL Glucose (74-99) mg/dL POC Glucose (mg/dL) 141 H 129 H (75-99) mg/dL Calcium (8.4-10.2) mg/dL Lactate Dehydrogenase (313-618) U/L 11/11/20 11/11/20 11/11/20 Range/Units 04:03 04:03 04:03 Hgb 10.3 L (11.4-16.0) gm/dL Hct 33.2 L (34.0-46.0) % MCHC 30.9 L (31.0-37.0) g/dL RDW 18.0 H (11.5-15.5) % Plt Count 101 L (150-450) k/uL Lymphocytes # 0.3 L (1.0-4.8) k/uL Fibrinogen (200-500) mg/dL D-Dimer (<0.60) mg/L FEU ABG pH (7.35-7.45) ABG pCO2 (35-45) mmHg ABG pO2 (83-108) mmHg ABG HCO3 (21-25) mmol/L ABG Total CO2 (19-24) mmol/L ABG O2 Saturation (94-97) % Sodium 133 L (137-145) mmol/L Chloride 94 L (98-107) mmol/L Carbon Dioxide 38 H (22-30) mmol/L BUN 22 H (7-17) mg/dL Creatinine 0.32 L (0.52-1.04) mg/dL Glucose 144 H (74-99) mg/dL POC Glucose (mg/dL) (75-99) mg/dL Calcium 8.3 L (8.4-10.2) mg/dL Lactate Dehydrogenase 1234 H (313-618) U/L 11/11/20 11/11/20 Range/Units 05:01 05:47 Hgb (11.4-16.0) gm/dL Hct (34.0-46.0) % MCHC (31.0-37.0) g/dL RDW (11.5-15.5) % Plt Count (150-450) k/uL Lymphocytes # (1.0-4.8) k/uL Fibrinogen (200-500) mg/dL D-Dimer (<0.60) mg/L FEU ABG pH 7.51 H (7.35-7.45) ABG pCO2 46 H (35-45) mmHg ABG pO2 68 L (83-108) mmHg ABG HCO3 37 H (21-25) mmol/L ABG Total CO2 39 H (19-24) mmol/L ABG O2 Saturation (94-97) % Sodium (137-145) mmol/L Chloride (98-107) mmol/L Carbon Dioxide (22-30) mmol/L BUN (7-17) mg/dL Creatinine (0.52-1.04) mg/dL Glucose (74-99) mg/dL POC Glucose (mg/dL) 148 H (75-99) mg/dL Calcium (8.4-10.2) mg/dL Lactate Dehydrogenase (313-618) U/L Microbiology - Last 24 Hours (Table) 11/08/20 18:50 Blood Culture - Preliminary Blood No Growth after 48 hours 11/08/20 12:07 Gram Stain - Preliminary Sputum Sputum Culture - Preliminary Presumptive Staph aureus Assessment and Plan Plan: 1 Acute hypoxemic respiratory failure secondary to acute COVID 19 pneumonia. the patient is currently intubated on a mechanical ventilator. the patient is sedated and off paralyzed. The peak airway pressure is 25. The patient is on IV Solu-Medrol. The patient also received tocilizumab. No Remdesivir During the course of his treatment, the patient developed a right-sided pneumothorax requiring a right-sided chest tube insertion. The right lung has expanded nicely. She also developed a left-sided pneumothorax. She required a left-sided chest tube insertion. There is intermittent air leak on the right. The lungs are well expanded probably with a very tiny apical pneumothorax on the left. The airway pressures are low for now. 2 Acute exacerbation of mild intermittent chronic bronchial asthma secondary to above. 3 Anemia in a patient with a known history of nonbleeding ulcers with previous EGD and GI bleed. The patient got transfused with a packed RBC units and hemoglobin is improved and is stable for now and there is no signs of GI bleeding and the patient is currently on a combination of Protonix and Carafate. 4 bilateral pneumothoraces requiring bilateral chest tube insertion with adequate expansion 5 History of anxiety/depression. 6 History of immunodeficiency disorder. 7 Irritable bowel syndrome. 8 History of migraine. 9 Fibromyalgia. 10 History of chronic back pain. 11 MSSA bacteremia currently on IV Ancef 2 g every 8 hours on the patient also had staph aureus and the pleural fluid which obviously raises the concern for a pneumonia with parapneumonic effusion and pleural space infection. Consider staphylococcal pneumonia accordingly. 12 History of chronic tobacco dependence, vaping., Vancomycin can be discontinued 13 acute on top of chronic anemia with a drop in hemoglobin down to 6.2 and the patient will be given a unit of packed RBC. Is improved at 10.3. Plan: Patient is currently off paralytics Sedation holiday and assess weaning parameters Possible extubation today if she is able to tolerate spontaneous breathing trial and the weaning parameters are adequate Keep the chest tubes in place Continue IV Solu-Medrol Continue monitoring the inflammatory markers. The markers are all improving with exception of d-dimer which is high and the patient will be placed on Lovenox 30 mg subcu every 12 hours which is half a milligram per KG every 12 enteral feeding for nutritional support vital high protein at the rate of 28 mL an hour continue the Ancef Continue oral Protonix 40 mg twice a day Condition is critical. We'll continue to follow make further recommendations based on her progress. Critically care evaluation that was done and more than 30 minutes Time with Patient: Greater than 30
[2020-11-11] MEDS: ARIPiprazole 5 MG TAB PO SCH (08:26)
[2020-11-11] MEDS: CHLORHEXIDINE GLUCONATE 15 ML CUP MUCOUS MEM SCH ×2 (08:27→20:13)
[2020-11-11] MEDS: ZINC SULFATE 220 MG CAP PO SCH (08:27)
[2020-11-11] MEDS: PANTOPRAZOLE 40 MG/10 ML VIAL IVP SCH ×2 (08:27→20:13)
[2020-11-11] MEDS: buPROPion XL 150 MG TAB.ER.24H PO SCH (08:27)
[2020-11-11] MEDS: ASCORBIC ACID 500 MG TAB PO SCH (08:27)
[2020-11-11] MEDS: ENOXAPARIN 30 MG/0.3 ML SYRINGE SQ SCH ×2 (08:37→20:13)
[2020-11-11] MEDS: DULoxetine HCL 60 MG CAPSULE.DR PO SCH (08:37)
[2020-11-11] MEDS: CHOLECALCIFEROL 25 MCG (1000 IU) TABLET PO SCH (08:37)
--- NOTE | 2020-11-11 08:59 | XR ---
EXAMINATION TYPE: XR chest 1V portable DATE OF EXAM: 11/11/2020 COMPARISON: 11/10/2020 HISTORY: Chest tube placement TECHNIQUE: Single frontal view of the chest is obtained. FINDINGS: Bilateral apical pneumothoraces noted increase in size in the left measuring approximately 5-10%. Less than 5% right apical subcutaneous emphysema noted. Bilateral chest tubes and central cielo e ET and NG tube stable. Diffuse airspace disease. IMPRESSION: 1. Interval increase in size of left apical pneumothorax now measuring 5-10%. Stable less than 5% rig ht apical pneumothorax. 2. Diffuse airspace disease stable.
--- NOTE | 2020-11-11 10:06 | P.PN ---
Subjective Progress Note Date: 11/11/20 HISTORY OF PRESENT ILLNESS This is a 39-year-old female patient of Dr. Gonzalez with past medical history of GI bleed in 2008, July 2020 was admitted for GI bleed secondary to 2 no nbleeding antral ulcers requiring transfusion 2 units packed RBCs, tobacco use, alcohol abuse, recurrent depression, generalized anxiety disorder. Patient was diagnosed with COVID-19 on October 30. She complains of increasing shortness of breath, cough, congestion, fever and chills and hoarseness. She continued to worsen significantly over the past 2 days. She also complains of bloody sputum production. Patient came into [facility] for evaluation. Temperature 98.3, heart rate 102, respiratory rate 40, blood pressure 95/64, pulse ox 71%. EKG was a sinus rhythm no acute ST elevation. W BC 9.4, hemoglobin 8.6, platelet count 284. Sodium 135, potassium 2.8, chloride 102, CO2 21, BUN 19 creatinine 0.88. Blood sugar 92. AST 71, ALT 24, alkaline phosphatase 264 [place] phosphatase 264, LDH 2067, CA reactive protein 320.8. Lactic acid 3.1. CT angiogram of the chest reveals no evidence pulmonary embolism. Severe pulmonary interstitial and airspace edema. Chest x-ray reveals pulmonary interstitial pneumonia worse than recent exam. Some airspace component. Patient is status post 2 L of IV fluids, potassium replacement, Dilaudid, patient seen by pulmonary medicine and started on Tocilizumab. 11/05: Patient remains in the intensive care unit. She is a nonrebreather mask and AorVp and can maintain a pulse ox in the 90s. If she removes these, patient follows less than 70s. She is very anxious today and has many questions. She does have large number of psychiatric medications which have been resumed. We will also add and Xanax twice daily as needed. She has been afebrile, heart rate 89, blood pressure 116/79, pulse ox 95%. Repeat blood work reveals WBC 11.8, hemoglobin 7.7, platelet count 243. D-dimer 1.95. Sodium 135, electrolyt es otherwise normal, BUN 18 creatinine 0.45. Blood sugars running between 117- 129. AST 48, ALT 18, alkaline phosphatase 218, LDH 2243. C-reactive protein 254. Patient had 2 blood cultures, one is showing no growth at 24 hours and the second obtained at 2240 showing gram-positive cocci. She was started on vancomycin. 11/06: Patient remains in ICU, still on a BiPAP treatments,, continuously, terri barber did not have any meals for the past 72 hours secondary to hypoxemia and air hunger without the reading device. Patient has not slept well at all, cytokinin markers are elevated, blood culture growing Staphylococcus from specimen collected November 03 are pending sensitivity. Patient currently is on IV cefazolin, IV vancomycin, followed by infectious disease. So Medrol 60 mg every 6 hours, most of her oral medications cannot be complied upon secondary to hypoxemia event removed briefly. Hemoglobin at 7.2, blood gas shows pCO2 54, PaO2 of 67, 7.39 pH. Double basic count of under 10, creatinine of 0.5, LDH 1845, alkaline phosphatase 194. Albumin low at 2.6, blood pressure stable,Heart rate of 114, blood pressure of 135/90. Pulse ox 85-86 at BiPAP treatments. 11/07 yesterday afternoon, patient required placement of right chest tube secondary to spontaneous pneumothorax placed by the ER doctor,, patient has worsening respiratory status, and was intubated by the ER physician currently with tidal volume of 40, PEEP of 10, assist control rate of 24, FiO2 of 80%. There is residual small pneumothorax right side, there is a left subclavian triple-lumen placed by Dr. Harrington today. There is consult for nutrition, has an OG tube, for which feedings would be started once completed. Chest x-ray shows bilateral diffuse infiltrates, creatinine of 0.4, LDH of 1630, CRP of 36 platelet count 132, hemoglobin 7.3 11/08: Patient remains in the intensive care unit, intubated and on mechanical ventilation with FiO2 100%, tidal volume 400 and PEEP of 10. Patient is currently on sedation. Repeat chest x-ray today reveals increase in size of right-sided pneumothorax since previous measuring of 3.5 cm today compared to 1.2 cm yesterday. Severe interstitial infiltrates throughout the lungs bilaterally slightly increased from previous. A second right-sided chest tube was placed today by Dr. Davison. Repeat blood work reveals WBC 5.2, hemoglobin 6.2, platelet count 133. Sodium 141, potassium 3.5, chloride 107, CO2 35, BUN 24 and creatinine 0.46. Blood sugar 132. Alkaline phosphatase 154. D-dimer 6.35. Patient is ordered for transfusion 1 unit packed RBCs today. Blood culture is MSSA and patient is on Ancef 2 g every 8 hours. Pleural fluid culture in progress. Patient has been afebrile, heart rate low 100s, respiratory rate 27, blood pressure 135/93, pulse ox 96%. Patient will be started on tube feedings today. 11/09: She remains intubated and on mechanical ventilation. She is on both Nimbex and Propofol. She remains intubated and on mechanical ventilation with tidal volume 400, FiO2 65 and PEEP of 10. Repeat chest x-ray reveals improving right apical pneumothorax measuring less than 5%. Stable bilateral diffuse infiltrates. WBC 8, hemoglobin 7.8 status post 1 unit of packed RBCs. Platelet count 123. Sodium 141, potassium 3.9, chloride 105, CO2 37. BUN 28 creatinine 0.51. Blood sugar 142. Inflammatory markers are improving with d-dimer 7.09, fibrinogen 159, LDH 1249, C-reactive protein 8.3, CK 23. Patient is on Kefzol for antibiotics. She remains with right-sided chest tube. She has been a febrile, heart rate 80, blood pressure 116/78, pulse ox 92%. Patient is not requiring vasopressors. 11/10: Initial chest x-ray this morning revealed interval development of 50% left-sided pneumothorax. Patient is status post chest tube placement on the left by Dr. Davison. Repeat chest x-ray revealed bilateral apical pneumothoraces measuring less than 5. Stable on the right improved on the left. Diffuse bilateral pulmonary parenchymal disease stable. Patient remains intubated and on mechanical ventilation. She is now off Nimbex. Tidal volume 500, FiO2 60% and PEEP of 8. Patient is on tube feedings. Repeat blood work reveals WBC 7.5, hemoglobin 7.7, platelet count 126. Sodium 139, potassium 3.3 and was replaced, chloride 98, CO2 38, BUN 28 creatinine 0.41. Cultures are running between 134-150. D-dimer 0.05, LDH 1338, CK 65, C-reactive protein less than 5. Sputum culture is in progress. Blood cultures no growth at 24 hours. All previous blood cultures are showing no growth. IgG is low at 471. Request a nurse contact Dr. Davison about IVIG infusion. 11/11: She remains in the intensive care unit, intubated and on mechanical ventilation with tidal volume 400, FiO2 50% and PEEP of 6. Patient now has bilateral chest tubes in place for bilateral pneumothoraces with right-sided air leak. Weaning will be attempted today. She has been afebrile, heart rate 95, blood pressure 148/81, pulse ox 96%. Repeat blood work reveals W BC 5.8, hemoglobin 10.3, platelet count 101. D-dimer 6.03. C-reactive protein less than 5, CK 44. LDH 1234. Sodium 133, potassium 3.8, chloride 94, CO2 38, BUN 22 and creatinine 0.32. Blood culture, sputum culture, pleural fluid culture also positive for MSSA. Patient is covered with Kefzol. REVIEW OF SYSTEMS Unable to obtain due to intubation PHYSICAL EXAMINATION Full examination deferred due to Covid 19 isolation, intubation and ICU. Gen: This is a 39-year-old female. Patient is resting in the ICU bed on the intubated and on mechanical ventilation. She appears to be in no acute respiratory distress. HEENT: Head is atraumatic, normocephalic. NEUROLOGICAL: Patient is sedated. ASSESSMENT AND PLAN 1. Acute hypoxic respiratory failure secondary to acute Covid 19 pneumonia, MSSA pneumonia, POA . Consult with pulmonary medicine appreciated. Status post Tocilizumab. Patient intubated on November 06. Continue Lovenox 30 mg subcu twice daily, Solu-Medrol 60 mg IV push every 6 hours, zinc and vitamin supplements. Weaning attempt today. 2. Right sided pneumothorax requiring chest tube 11/06 and 11/08. 3. Acute exacerbation of mild intermittent bronchial asthma. Continue Ventolin inhaler 4 times daily as needed. 4. Left-sided pneumothorax requiring chest tube placed on 11/10. 5. Primary immunodeficiency. Low IgG. Possible IVIG infusion of [address] Davison. 6. Chronic anemia most likely due to history of bleeding ulcers and alcohol abuse. 7. Tobacco use and dependence including taping. 8. Daily alcohol use/abuse. Patient apparently has had no alcohol intake for 7 days. Monitor closely for DTs 9. Recurrent depression and generalized anxiety disorder. Continue Abilify 7.5 mg daily, Wellbutrin 150 mg daily, BuSpar 10 mg as needed for anxiety, Cymbalta 60 mg daily. 10. Acute anemia secondary to sepsis without blood loss. Transfuse 1 unit of packed RBCs. 11. Migraine headaches. Continue Fioricet as needed. Hold Inderal 60 mg daily. 12. Sepsis with MSSA bacteremia, POA. Continue Kafzol. 13. Moderate protein calorie malnutrition. Patient maintain on tube feedings 14. Gastroesophageal reflux disease with history of bleeding ulcers. Continue Protonix 40 mg daily and Carafate 1 g 4 times daily. 15. DVT prophylaxis. Lovenox. Prognosis: guarded DISCHARGE PLAN Home. Impression and plan of care have been directed as dictated by the signing physician. Isabel Samayoa nurse practitioner acting as scribe for signing physic ines. Objective - Vital Signs Vital signs: Vital Signs Temp 98.4 F 11/11/20 08:00 Pulse 95 11/11/20 08:00 Resp 27 H 11/11/20 08:00 BP 114/84 11/11/20 02:00 Pulse Ox 96 11/11/20 08:00 Intake & Output 11/10/20 11/11/20 11/11/20 18:59 06:59 18:59 Intake Total 1008.509 894 126 Output Total 1440 1720 270 Balance -431.491 -826 -144 Weight 58.967 kg Intake: IV 240 240 40 Sodium Chloride 0.9% 1, 240 240 40 000 ml @ 20 mls/hr IV . Q24H [facility] Rx#:[id number] Intake, IV Titration 376.509 200 Amount ceFAZolin 2 gm In Sodium 100 Chloride 0.9% 50 ml @ 100 mls/hr IVPB Q8HR [facility] Rx# :[id number] propofoL 1,000 mg In 276.509 200 Empty Bag 1 bag @ Titrate IV .Q0M [facility]ERRON Rx#: [id number] Tube Feeding 392 364 56 Other 90 30 Output: Chest Tube Drainage 155 Chest Tube Right 120 left chest tube 35 Urine 1440 1565 270 Other: Voiding Method Indwelling Catheter Indwelling Catheter # Bowel Movements 1 ABP, PAP, CO, CI - Last Documented Arterial Blood Pressure 148/81 - Labs CBC & Chem 7: 11/11/20 04:03 11/11/20 04:03 Labs: Abnormal Lab Results - Last 24 Hours (Table) 11/10/20 11/10/20 11/10/20 Range/Units 12:03 12:18 17:07 Hgb (11.4-16.0) gm/dL Hct (34.0-46.0) % MCHC (31.0-37.0) g/dL RDW (11.5-15.5) % Plt Count (150-450) k/uL Lymphocytes # (1.0-4.8) k/uL Fibrinogen (200-500) mg/dL D-Dimer (<0.60) mg/L FEU ABG pH 7.51 H (7.35-7.45) ABG pCO2 49 H (35-45) mmHg ABG pO2 (83-108) mmHg ABG HCO3 39 H (21-25) mmol/L ABG Total CO2 40 H (19-24) mmol/L ABG O2 Saturation 97.8 H (94-97) % Sodium (137-145) mmol/L Chloride (98-107) mmol/L Carbon Dioxide (22-30) mmol/L BUN (7-17) mg/dL Creatinine (0.52-1.04) mg/dL Glucose (74-99) mg/dL POC Glucose (mg/dL) 129 H 146 H (75-99) mg/dL Calcium (8.4-10.2) mg/dL Lactate Dehydrogenase (313-618) U/L 11/10/20 11/10/20 11/11/20 Range/Units 17:47 23:17 04:03 Hgb (11.4-16.0) gm/dL Hct (34.0-46.0) % MCHC (31.0-37.0) g/dL RDW (11.5-15.5) % Plt Count (150-450) k/uL Lymphocytes # (1.0-4.8) k/uL Fibrinogen 133 L (200-500) mg/dL D-Dimer 6.03 H (<0.60) mg/L FEU ABG pH (7.35-7.45) ABG pCO2 (35-45) mmHg ABG pO2 (83-108) mmHg ABG HCO3 (21-25) mmol/L ABG Total CO2 (19-24) mmol/L ABG O2 Saturation (94-97) % Sodium (137-145) mmol/L Chloride (98-107) mmol/L Carbon Dioxide (22-30) mmol/L BUN (7-17) mg/dL Creatinine (0.52-1.04) mg/dL Glucose (74-99) mg/dL POC Glucose (mg/dL) 141 H 129 H (75-99) mg/dL Calcium (8.4-10.2) mg/dL Lactate Dehydrogenase (313-618) U/L 11/11/20 11/11/20 11/11/20 Range/Units 04:03 04:03 04:03 Hgb 10.3 L (11.4-16.0) gm/dL Hct 33.2 L (34.0-46.0) % MCHC 30.9 L (31.0-37.0) g/dL RDW 18.0 H (11.5-15.5) % Plt Count 101 L (150-450) k/uL Lymphocytes # 0.3 L (1.0-4.8) k/uL Fibrinogen (200-500) mg/dL D-Dimer (<0.60) mg/L FEU ABG pH (7.35-7.45) ABG pCO2 (35-45) mmHg ABG pO2 (83-108) mmHg ABG HCO3 (21-25) mmol/L ABG Total CO2 (19-24) mmol/L ABG O2 Saturation (94-97) % Sodium 133 L (137-145) mmol/L Chloride 94 L (98-107) mmol/L Carbon Dioxide 38 H (22-30) mmol/L BUN 22 H (7-17) mg/dL Creatinine 0.32 L (0.52-1.04) mg/dL Glucose 144 H (74-99) mg/dL POC Glucose (mg/dL) (75-99) mg/dL Calcium 8.3 L (8.4-10.2) mg/dL Lactate Dehydrogenase 1234 H (313-618) U/L 11/11/20 11/11/20 Range/Units 05:01 05:47 Hgb (11.4-16.0) gm/dL Hct (34.0-46.0) % MCHC (31.0-37.0) g/dL RDW (11.5-15.5) % Plt Count (150-450) k/uL Lymphocytes # (1.0-4.8) k/uL Fibrinogen (200-500) mg/dL D-Dimer (<0.60) mg/L FEU ABG pH 7.51 H (7.35-7.45) ABG pCO2 46 H (35-45) mmHg ABG pO2 68 L (83-108) mmHg ABG HCO3 37 H (21-25) mmol/L ABG Total CO2 39 H (19-24) mmol/L ABG O2 Saturation (94-97) % Sodium (137-145) mmol/L Chloride (98-107) mmol/L Carbon Dioxide (22-30) mmol/L BUN (7-17) mg/dL Creatinine (0.52-1.04) mg/dL Glucose (74-99) mg/dL POC Glucose (mg/dL) 148 H (75-99) mg/dL Calcium (8.4-10.2) mg/dL Lactate Dehydrogenase (313-618) U/L Microbiology - Last 24 Hours (Table) 11/08/20 18:50 Blood Culture - Preliminary Blood No Growth after 48 hours 11/08/20 12:07 Gram Stain - Preliminary Sputum Sputum Culture - Preliminary Presumptive Staph aureus
[2020-11-11] MEDS: DEXMEDETOMIDINE/0.9% NACL(PMX) 400 MCG in EMPTY BAG 1 BAG IV SCH ×2 (10:30→17:22)
[2020-11-11 11:30] LABS: Glucose,Whole Blood 119 mg/dL (75-99)
[2020-11-11] MEDS: SODIUM CHLORIDE 0.9% 1,000 ML IV SCH (11:57)
[2020-11-11 12:25] LABS: Ferritin 30.9 ng/mL (10.0-291.0)
[2020-11-11 13:54] LABS: ABG Base Excess 13.1 mmol/L; ABG HCO3 36 mmol/L (21-25); ABG Oxygen Saturation 93.1 % (94-97); ABG PCO2 43 mmHg (35-45); ABG PH 7.53 (7.35-7.45); ABG PO2 62 mmHg (83-108); ABG TCO2 37 mmol/L (19-24)
[2020-11-11 13:57] LABS: Allen Test Performed? No
[2020-11-11 17:30] LABS: Glucose,Whole Blood 133 mg/dL (75-99)
[2020-11-11] MEDS: CISATRACURIUM 200 MG in SODIUM CHLORIDE 0.9% 180 ML IV SCH (17:39)
[2020-11-11 17:54] LABS: ABG Base Excess 11.2 mmol/L; ABG HCO3 34 mmol/L (21-25); ABG Oxygen Saturation 99.1 % (94-97); ABG PCO2 44 mmHg (35-45); ABG PO2 115 mmHg (83-108); ABG TCO2 36 mmol/L (19-24); Allen Test Performed? Yes
[2020-11-11] MEDS: MELATONIN 3 MG TABLET PO SCH (20:13)
[2020-11-12] MEDS ORDERED: HYDROmorphone 1 MG/ML 1 ML SYRINGE ONE ×3 (01:30→05:45)
[2020-11-12] MEDS ORDERED: INSULIN ASPART (NovoLOG) 100 UNIT/ML VIAL SQ ONE (01:31)
[2020-11-12] MEDS ORDERED: ARTIFICIAL TEARS-HYPROMELLOSE DROPS 15 ML BTL ONE ×3 (04:00)
[2020-11-12 05:37] LABS: Glucose,Whole Blood 141 mg/dL (75-99)
[2020-11-12 05:45] LABS: Glucose,Whole Blood 131 mg/dL (75-99)
[2020-11-12 05:53] LABS: ALT 16 U/L (4-34); AST 28 U/L (14-36); African American GFR (CKD) >90 (>60 ml/min/1.73 sqM); Albumin 3.4 g/dL (3.5-5.0); Alkaline Phosphatase 149 U/L (38-126); Anion Gap 7 mmol/L; Blood Urea Nitrogen 19 mg/dL (7-17); C Reactive Protein 6.4 mg/L (<10.0); Calcium 8.5 mg/dL (8.4-10.2); Carbon Dioxide 30 mmol/L (22-30); Chloride 97 mmol/L (98-107); Creatine Kinase 33 U/L (30-135); Glucose 137 mg/dL (74-99); LDH 1437 U/L (313-618); Non-African American GFR(CKD) >90 (>60 ml/min/1.73 sqM); Potassium 3.6 mmol/L (3.5-5.1); Sodium 134 mmol/L (137-145); Total Bilirubin 0.5 mg/dL (0.2-1.3); Total Protein 5.8 g/dL (6.3-8.2)
[2020-11-12 05:54] LABS: Anisocytosis Slight; HCT 28.5 % (34.0-46.0); Hypochromasia Moderate; MCH 27.5 pg (25.0-35.0); MCHC 31.6 g/dL (31.0-37.0); Mean Platelet Volume 11.3; Platelet Count 164 k/uL (150-450); Poikilocytosis Slight; RBC 3.28 m/uL (3.80-5.40); RDW 18.4 % (11.5-15.5); WBC 17.3 k/uL (3.8-10.6)
[2020-11-12] MEDS ORDERED: methylPREDNISolone SOD SUCCI 125 MG/2 ML VIAL ONE ×2 (06:00)
[2020-11-12 06:11] LABS: Allen Test Performed? Yes
[2020-11-12 06:12] LABS: ABG Base Excess 10.8 mmol/L; ABG HCO3 34 mmol/L (21-25); ABG PCO2 44 mmHg (35-45); ABG PH 7.49 (7.35-7.45); ABG PO2 69 mmHg (83-108); ABG TCO2 35 mmol/L (19-24)
[2020-11-12] MEDS: INSULIN ASPART (NovoLOG) 100 UNIT/ML VIAL SQ SCH ×4 (06:25→17:22)
[2020-11-12] MEDS: SUCRALFATE 1 GM TAB PO SCH ×4 (06:30→20:05)
[2020-11-12] MEDS: methylPREDNISolone SOD SUCCI 125 MG/2 ML VIAL IV SCH ×4 (07:31→23:55)
[2020-11-12] MEDS: ARTIFICIAL TEARS-HYPROMELLOSE DROPS 15 ML BTL BOTH EYES SCH ×6 (07:31→23:55)
[2020-11-12] MEDS: ARIPiprazole 5 MG TAB PO SCH (07:53)
[2020-11-12] MEDS: CHOLECALCIFEROL 25 MCG (1000 IU) TABLET PO SCH (07:54)
[2020-11-12] MEDS: buPROPion XL 150 MG TAB.ER.24H PO SCH (07:54)
[2020-11-12] MEDS: ASCORBIC ACID 500 MG TAB PO SCH (07:54)
[2020-11-12] MEDS: DULoxetine HCL 60 MG CAPSULE.DR PO SCH (07:54)
[2020-11-12] MEDS: CHLORHEXIDINE GLUCONATE 15 ML CUP MUCOUS MEM SCH ×2 (07:54→20:03)
[2020-11-12] MEDS: ENOXAPARIN 30 MG/0.3 ML SYRINGE SQ SCH ×2 (07:55→20:05)
[2020-11-12] MEDS: ZINC SULFATE 220 MG CAP PO SCH (07:55)
[2020-11-12] MEDS: PANTOPRAZOLE 40 MG/10 ML VIAL IVP SCH ×2 (07:55→20:05)
[2020-11-12] MEDS: ALBUTEROL HFA INHALER INHALATION PRN ×4 (07:58→19:33)
[2020-11-12] MEDS ORDERED: POTASSIUM BICARBONATE/CIT AC 20 MEQ TABLET.EFF NG-TUBE SCH (08:00)
[2020-11-12 08:05] LABS: Band Neutrophils % 2 %; Lymphocytes # (M) 1.21 k/uL (1.0-4.8); Monocytes # (M) 0.35 k/uL (0-1.0); Neutrophils % (M) 89 %; Nucleated Red Blood Cells 0 /100 WBC (0-0); Total Cells Counted 100
[2020-11-12 08:09] LABS: Polychromasia Present
[2020-11-12 08:10] LABS: Large Platelets Present
--- NOTE | 2020-11-12 08:23 | P.PN ---
Subjective Progress Note Date: 11/12/20 39-year-old female patient is currently in the intensive care unit because of covid 19 related pneumonia with acute hypoxic respiratory failure. The patient presented to the hospital with worsening shortness of breath and fever and chills and congestion. She checked positive for covid 19 on 10/30/2020. The patient is also known to have previous history of GI bleeds, she has nonbleeding antral ulcers 2, she has history of migraine, fibromyalgia, chronic anxiety/depression and chronic back pain and irritable bowel syndrome. She has mild intermittent chronic bronchial asthma and she has been maintained on Advair. She has been in the intensive care unit for now. The patient after being admitted to the intensive care unit, she decompensated and she developed worsening in shortness of breath She has currently intubated on a mechanical ventilator. She was intubated on 11/06/2020 because of worsening respiratory status. While on a mechanical ventilator, the patient developed also a right- sided pneumothorax. Based on that, right-sided chest tube was inserted. For now, the patient a mechanical ventilator. She is sedated with propofol which is currently running at 60 mcg/kg per minute. The patient is paralyzed with Nimbex at 0.5/kg per minute.. She is on a mechanical ventilator on assist control mode at the rate of 24, FiO2 of 100% and PEEP of 10 with a tidal volume of 400. The IV fluids running at 75 mL an hour of normal saline. The patient is currently received Lovenox, Solu-Medrol, vitamin C, vitamin D3, and zinc, as well as TOCI. Chest x-ray is showing a right-sided chest tube with persistent pneumothorax on the right. The blood culture from 11/03/2020 showed staph aureus, MSSA and the patient is currently on IV Ancef 2 g, every 8 hours. The patient is receiving normal enteral feeding for now. The repeat chest x-ray from today shows a 50% pneumothorax on the right. There is a right-sided chest tube in place. There is a left subclavian triple-lumen catheter. The patient continues to have diffuse bilateral pulmonary infiltrates. Blood gases from today shows a pH of 7.37 with a pCO2 of 57 and pO2 of 168 and this was on FiO2 of 100%. Hemoglobin today is down to 6.2. No signs of any acute GI bleeding. The patient will be transfused with a unit of packed RBC. The peak airway pressures around 35 with a static air a pressure of 34 while being on a mechanical ventilator. On today's evaluation of 11/09/2020, the patient remains sedated with propofol and paralyzed with Nimbex. Propofol is running at 75 mcg/kg per minute and Nimbex is running at 2 mg/kg per minute. The patient is well sedated and she is well-appearing paralyzed and she is very symptoms with the mechanical ventilator. She remained on assist control mode at the rate of 24 with a tidal volume of 400 and FiO2 of 65% with a PEEP of 10. She did have a bout of desaturation in the middle of the night. Blood gas was done and this was probably an 100% and he showed a pH of 7.41 with a pCO2 of 58 and pO2 of 200. I repeated blood gases will be needed to reevaluate her oxygenation on a 65% FiO2. Chest x-ray from today shows a small tiny right apical pneumothorax. Otherwise the chest x-ray findings are stable. There is diffuse breath and pulmonary infiltrates. There is improvement in the right-sided pneumothorax less than 5%. Orotracheal tube is in a good location. Peak airway pressure is 33 on a mechanical ventilator. In terms of her pneumonia which is a Covid 19 pneumonia, the patient remains on IV Solu-Medrol 60 mg every 6 hours. She is also on Lovenox for DVT prophylaxis 40 mg subcu. The LDH from today is at 1240 now which is down, the CRP is down to 8.3. Renal function is stable. Creatinine is at 0.5. The d-dimer is high at 7.09 and probably her Lovenox dose needs to be adjusted. She was given a unit of packed RBC yesterday and the hemoglobin came up to 7.8. She is hemodynamically stable. She is on no pressors for now. As mentioned earlier, she has previous history of GI bleeds and nonbleeding antral ulcers in addition to migraine, fibromyalgia, chronic anxiety and depression and chronic back pain addition to asthma. The patient is currently on IV Protonix and she is feeding with vital high protein. She has a left-sided subclavian triple-lumen catheter in place. His evaluation of 11/10/2020, the patient remains sedated with propofol running at 75 mcg/kg per minute. Note that the patient was taken off Nimbex yesterday and that was successful. She was paralyzed for a few days post intubation and I was able to get it off this paralytics. Meanwhile, the patient had a right- sided pneumothorax and I repositioned and placed another chest tube on the right which was successfully expanded right lung although on today's chest x-ray there is a tiny pneumothorax in the right apex however there is a larger pneumothorax on the left which is in order of 10-15%. Meanwhile, I was able to lower the patient's PEEP and currently the patient is an assist-control mode at a tidal volume of 400, FiO2 of 60%, PEEP of 8 and respiratory rate of 24. The blood gases from today showed a pH of 7.52 with a pCO2 of 51 and pO2 of 69. Peak airway pressure on the mechanical ventilator is 27. As such, the patient will need a left-sided chest tube insertion and this will be done at the bedside today. In terms of her Covid 19 pneumonia, the patient remains on IV Solu- Medrol. The patient remains on Lovenox 30 mg subcutaneous for DVT prophylaxis twice a day.. The inflammatory markers from today showing an LDH level of 1338 which is higher and his CRP level of <5 and the patient d-dimer currently is elevated at 8.05. She is receiving enteral feeding for nutritional support. She is currently on vital high protein at the rate of 28 mL an hour. No signs of any GI bleeding. She is on IV Protonix. Her hemoglobin today is at 7.7. No other significant events overnight. She was given a brief sedation holiday today and she was able to arouse quickly and open up her eyes. The active issue for now as it development of a left-sided pneumothorax for which chest tube will be needed. The right-sided chest tube is in place and there is minimal amount of air leak and the patient has developed a small subcutaneous emphysema on the right. Output from the chest tube is in order of 45 mL over the past 24 hours. On 11/11/2020 I'm seeing the patient for a follow-up. As mentioned earlier, the patient is a case of Covid 19 related pneumonia with bilateral pneumothoraces any superinfection with MSSA as MSSA was cultured in the sputum, pleural fluid and in the blood. The patient also has bilateral chest tubes, right-sided chest tube was initially inserted and left-sided chest tube followed as the patient developed bilateral pneumothoraces. On today's evaluation, she is an assist- control mode with a rate of 24 with a tidal volume of 400 and FiO2 of 50% with a PEEP of 6. The blood gas shows a pH of 7.51 with a pCO2 of 46 and pO2 of 68. Ration continues to have some intermittent air leak in the right. No evidence of air leak on the left. Output from the chest tubes are minimal. The chest x- ray from today shows a limited pneumothorax on the left. Chest tubes are all in good location. The infiltrate on the right has improved especially the one in the periphery, and there is some persistent consolidation of the left lower lobe. Nevertheless, I was able to cut down the PEEP down to 6 with an FiO2 of 50% on this patient. Hemodynamically stable. She is on no pressors. She is on IV cefazolin. She is also on Solu-Medrol 60 mg every 6 hours. She is off paralytics. She is on enteral feeding for nutritional support through a orogastric tube. Adequate urine output. Fluid balance over the past 24 hours has been in the order of -2.9 L. She is on normal saline at the rate of 20 mL an hour. Inflammatory markers showed a LDH level of 1234 with a CRP level of less than 5. On the 2020 I'm seeing the patient for a follow-up. Events from yesterday was noted. I was trying to give the patient sedation holiday and taken off the propofol and the patient became quite agitated and restless and hypoxic and asynchronous with a mechanical ventilator. At that point, the weaning was slowed down and the patient was added on Precedex. This morning, she remains on propofol which is running at 50 50 mcg/kg per minute and she is also on Precedex 0.7 at 0.7 g. She seems to be quite comfortable and the same process will be attempted again today. On today's evaluation she is calm and comfortable. She remains on a mechanical ventilator. She is on assist-control mode at the rate of 24 with a tidal volume of 400 and the PEEP is at 6 with an FiO2 of 50%. Peak airway pressure is 27. Chest x-rays showing a tiny right apical pneumothorax. The right-sided chest tube is in place. There is right-sided subcutaneous emphysema. No pneumothorax on the left. The ET tube is sitting just above the ramy and it may need to be retracted slightly. OG tube is in a good location. The patient had a blood gases this morning that showed a pH of 7.49 with a pCO2 of 44 and pO2 of 69. The cultures as mentioned earlier was all positive for MSSA in the sputum and in the blood and in the pleural fluid. Note that there is no evidence of any air leak on the left-sided chest tube. On the right-sided chest tube, there was intermittent leak yesterday and has been present for today. She remains on IV cefazolin. She remains on steroids and she is receiving IV Solu Medrol 60 mg every 6 hours. She is on Lovenox 30 mg subcu twice a day. Rest of the blood work and inflammatory markers are still pending for now. She is being fed and she is receiving vital high protein at the rate of 28 mL an hour. Inflammatory markers from today shows an LDH of 1437 and his CRP is 6.4. Objective - Vital Signs Vital signs: Vital Signs Temp 98.8 F 11/12/20 00:00 Pulse 78 11/12/20 03:00 Resp 25 H 11/12/20 03:00 BP 119/80 11/12/20 03:00 Pulse Ox 96 11/12/20 03:00 Intake & Output 11/11/20 11/12/20 11/12/20 18:59 06:59 18:59 Intake Total 1043.375 866.000 51 Output Total 1885 900 50 Balance -841.625 -34.000 1 Weight 58.9 kg Intake: IV 306 312 23 0.9 NS flush 66 72 3 Sodium Chloride 0.9% 1, 240 240 20 000 ml @ 20 mls/hr IV . Q24H [facility] Rx#:[id number] Intake, IV Titration 227.375 100.000 Amount Dexmedetomidine/0.9% NaCl 58.886 (Pmx) 400 mcg In Empty Bag 1 bag @ Titrate IV . Q0M [facility] Rx#:[id number] ceFAZolin 2 gm In Sodium 50 Chloride 0.9% 50 ml @ 100 mls/hr IVPB Q8HR [facility] Rx# :[id number] propofoL 1,000 mg In 118.489 100.000 Empty Bag 1 bag @ Titrate IV .Q0M [facility] Rx#: [id number] Tube Feeding 420 364 28 Other 90 90 Output: Chest Tube Drainage 75 Chest Tube Right 40 left chest tube 35 Urine 1810 900 50 Other: Voiding Method Indwelling Catheter Indwelling Catheter ABP, PAP, CO, CI - Last Documented Arterial Blood Pressure 140/66 - Exam The patient is currently sedated no paralysis for now There is an orally placed endotracheal tube, and NG tube. HEENT examination is grossly unremarkable. Mucous membranes are moist. Neck supple. Full range of motion. No adenopathy thyromegaly or neck vein distention. Cardiovascular examination reveals regular rhythm rate. S1-S2 normal. No S3 or S4. No discernible murmur noted. Heart sounds are distant. Heart rate is 94 bpm. Lungs reveal bilateral coarse rhonchi. No wheezes or crackles. Breath sounds are essentially equal bilaterally. A right-sided chest tube is noted. I noted that there is no evidence of any air leak and the patient has diminished breath sound the right compared to left. Crackles are present bilaterally, and the patient has a small subcutaneous emphysema along the right lateral chest area. The patient also has a left-sided chest tube. Output from the chest tubes have been minimal and there is intermittent air leak on the right. Sounds are equal and symmetrical. Scattered rhonchi are still present. Abdominal exam revealed normal bowel sounds. The abdomen was soft, non-tender, and without masses, organomegaly, or appreciable enlargement of the abdominal aorta. Extremities are intact. No cyanosis clubbing or edema. Skin is without rash or lesion. Neurologic Patient is off paralysis and the patient was able to arouse while being given a sedation holiday. She was moving all 4 extremities and there was no focal neurological deficits. The patient did not wake up appropriately from her sedation yesterday. She did not get to a point where she was following commands. - Labs CBC & Chem 7: 11/12/20 03:30 11/12/20 03:30 Labs: Abnormal Lab Results - Last 24 Hours (Table) 11/11/20 11/11/20 11/11/20 Range/Units 11:28 13:49 17:29 WBC (3.8-10.6) k/uL RBC (3.80-5.40) m/uL Hgb (11.4-16.0) gm/dL Hct (34.0-46.0) % RDW (11.5-15.5) % Neutrophils # (Manual) (1.3-7.7) k/uL ABG pH 7.53 H (7.35-7.45) ABG pO2 62 L (83-108) mmHg ABG HCO3 36 H (21-25) mmol/L ABG Total CO2 37 H (19-24) mmol/L ABG O2 Saturation 93.1 L (94-97) % Sodium (137-145) mmol/L Chloride (98-107) mmol/L BUN (7-17) mg/dL Creatinine (0.52-1.04) mg/dL Glucose (74-99) mg/dL POC Glucose (mg/dL) 119 H 133 H (75-99) mg/dL Alkaline Phosphatase (38-126) U/L Lactate Dehydrogenase (313-618) U/L Total Protein (6.3-8.2) g/dL Albumin (3.5-5.0) g/dL 11/11/20 11/11/20 11/12/20 Range/Units 17:45 23:37 03:30 WBC 17.3 H (3.8-10.6) k/uL RBC 3.28 L (3.80-5.40) m/uL Hgb 9.0 L (11.4-16.0) gm/dL Hct 28.5 L (34.0-46.0) % RDW 18.4 H (11.5-15.5) % Neutrophils # (Manual) 15.70 H (1.3-7.7) k/uL ABG pH 7.50 H (7.35-7.45) ABG pO2 115 H (83-108) mmHg ABG HCO3 34 H (21-25) mmol/L ABG Total CO2 36 H (19-24) mmol/L ABG O2 Saturation 99.1 H (94-97) % Sodium (137-145) mmol/L Chloride (98-107) mmol/L BUN (7-17) mg/dL Creatinine (0.52-1.04) mg/dL Glucose (74-99) mg/dL POC Glucose (mg/dL) 141 H (75-99) mg/dL Alkaline Phosphatase (38-126) U/L Lactate Dehydrogenase (313-618) U/L Total Protein (6.3-8.2) g/dL Albumin (3.5-5.0) g/dL 11/12/20 11/12/20 11/12/20 Range/Units 03:30 05:36 05:59 WBC (3.8-10.6) k/uL RBC (3.80-5.40) m/uL Hgb (11.4-16.0) gm/dL Hct (34.0-46.0) % RDW (11.5-15.5) % Neutrophils # (Manual) (1.3-7.7) k/uL ABG pH 7.49 H (7.35-7.45) ABG pO2 69 L (83-108) mmHg ABG HCO3 34 H (21-25) mmol/L ABG Total CO2 35 H (19-24) mmol/L ABG O2 Saturation (94-97) % Sodium 134 L (137-145) mmol/L Chloride 97 L (98-107) mmol/L BUN 19 H (7-17) mg/dL Creatinine 0.33 L (0.52-1.04) mg/dL Glucose 137 H (74-99) mg/dL POC Glucose (mg/dL) 131 H (75-99) mg/dL Alkaline Phosphatase 149 H (38-126) U/L Lactate Dehydrogenase 1437 H (313-618) U/L Total Protein 5.8 L (6.3-8.2) g/dL Albumin 3.4 L (3.5-5.0) g/dL Microbiology - Last 24 Hours (Table) 11/08/20 18:50 Blood Culture - Preliminary Blood No Growth after 72 hours 11/08/20 12:07 Gram Stain - Final Sputum Sputum Culture - Final Staphylococcus aureus Assessment and Plan Plan: 1 Acute hypoxemic respiratory failure secondary to acute COVID 19 pneumonia. the patient is currently intubated on a mechanical ventilator. the patient is sedated and off paralyzed. The peak airway pressure is 25-27. The patient is on IV Solu-Medrol. The patient also received tocilizumab. No Remdesivir During the course of his treatment, the patient developed a right-sided p neumothorax requiring a right-sided chest tube insertion. The right lung has expanded nicely. There is some residual small right apical pneumothorax and persistent intermittent air leak. She also developed a left-sided pneumothorax. She required a left-sided chest tube insertion. There is intermittent air leak on the right. The lungs are well expanded probably with a very tiny apical pneumothorax on the right. The blood gases improved. I'm going to give this patient attempts and there is a sedation holiday and assess his mental status and ability to wean will be assessed on a daily basis.. The airway pressures are low for now. 2 Acute exacerbation of mild intermittent chronic bronchial asthma secondary to above. 3 Anemia in a patient with a known history of nonbleeding ulcers with previous EGD and GI bleed. The patient got transfused with a packed RBC units and hemoglobin is improved and is stable for now and there is no signs of GI bleeding and the patient is currently on a combination of Protonix and Carafate. The hemoglobin stable at 9.0 4 bilateral pneumothoraces requiring bilateral chest tube insertion with adequate expansion 5 History of anxiety/depression. 6 History of immunodeficiency disorder. 7 Irritable bowel syndrome. 8 History of migraine. 9 Fibromyalgia. 10 History of chronic back pain. 11 MSSA bacteremia currently on IV Ancef 2 g every 8 hours on the patient also had staph aureus and the pleural fluid which obviously raises the concern for a pneumonia with parapneumonic effusion and pleural space infection. Consider staphylococcal pneumonia accordingly. 12 History of chronic tobacco dependence, vaping., 13 acute on top of chronic anemia Plan: Gradually wean off propofol and use Precedex and add fentanyl if needed. The patient is responding well to Dilaudid Dilaudid and this makes me think that she would respond nicely also to fentanyl. The goal is to wean her off the sedation specially the propofol and assess the patient's mental status, weaning parameters and her readiness to wean. Sedation holiday and assess weaning parameters as discussed above Keep the chest tubes in place Continue IV Solu-Medrol Continue monitoring the inflammatory markers. The markers are all improving with exception of d-dimer which is high and the patient will be placed on Lovenox 30 mg subcu every 12 hours , repeat d-dimer than inflammatory markers tomorrow enteral feeding for nutritional support vital high protein at the rate of 28 mL an hour continue the Ancef Continue oral Protonix 40 mg twice a day Condition is critical. We'll continue to follow make further recommendations based on her progress. Critically care evaluation that was done and more than 30 minutes Time with Patient: Greater than 30
[2020-11-12] MEDS ORDERED: HYDROmorphone 1 MG/ML 1 ML SYRINGE IVP STA ×2 (08:36→12:17)
[2020-11-12] MEDS: fentaNYL (PF) 1,000 MCG in SODIUM CHLORIDE 0.9% 80 ML IV SCH ×2 (09:27→18:42)
--- NOTE | 2020-11-12 09:39 | XR ---
EXAMINATION TYPE: XR chest 1V portable DATE OF EXAM: 11/12/2020 COMPARISON: Chest x-ray 11/11/2020 HISTORY: Intubated, chest tubes TECHNIQUE: Single frontal view of the chest is obtained. FINDINGS: Endotracheal tube, NG tube, bilateral chest tubes, left subclavian central venous catheter are again noted, distal tip of the central venous catheter is within the right atrium. There has bee n an increase in size in the right-sided pneumothorax seen at the apex. Subcutaneous emphysema has pr ogressed. Bilateral nipple posts are present, there are overlying artifacts. Small left apical pneumo thorax is present bilateral airspace disease is noted. No sizable effusion. Cardiac style silhouette is stable. IMPRESSION: Slight interval increase in the right-sided pneumothorax compared to prior exam. Correla te for pneumonia, edema, ARDS
[2020-11-12] MEDS: SODIUM CHLORIDE 0.9% 1,000 ML IV SCH (10:33)
[2020-11-12 11:14] LABS: Glucose,Whole Blood 127 mg/dL (75-99)
--- NOTE | 2020-11-12 11:21 | P.PN ---
Subjective Progress Note Date: 11/12/20 HISTORY OF PRESENT ILLNESS This is a 39-year-old female patient of Dr. Gonzalez with past medical history of GI bleed in 2008, July 2020 was admitted for GI bleed secondary to 2 no nbleeding antral ulcers requiring transfusion 2 units packed RBCs, tobacco use, alcohol abuse, recurrent depression, generalized anxiety disorder. Patient was diagnosed with COVID-19 on October 30. She complains of increasing shortness of breath, cough, congestion, fever and chills and hoarseness. She continued to worsen significantly over the past 2 days. She also complains of bloody sputum production. Patient came into [facility] emergency center for evaluation. Temperature 98.3, heart rate 102, respiratory rate 40, blood pressure 95/64, pulse ox 71%. EKG was a sinus rhythm no acute ST elevation. W BC 9.4, hemoglobin 8.6, platelet count 284. Sodium 135, potassium 2.8, chloride 102, CO2 21, BUN 19 creatinine 0.88. Blood sugar 92. AST 71, ALT 24, alkaline phosphatase 264 [place] phosphatase 264, LDH 2067, CA reactive protein 320.8. Lactic acid 3.1. CT angiogram of the chest reveals no evidence pulmonary embolism. Severe pulmonary interstitial and airspace edema. Chest x-ray reveals pulmonary interstitial pneumonia worse than recent exam. Some airspace component. Patient is status post 2 L of IV fluids, potassium replacement, Dilaudid, patient seen by pulmonary medicine and started on Tocilizumab. 11/05: Patient remains in the intensive care unit. She is a nonrebreather mask and AorVp and can maintain a pulse ox in the 90s. If she removes these, patient follows less than 70s. She is very anxious today and has many questions. She does have large number of psychiatric medications which have been resumed. We will also add and Xanax twice daily as needed. She has been afebrile, heart rate 89, blood pressure 116/79, pulse ox 95%. Repeat blood work reveals WBC 11.8, hemoglobin 7.7, platelet count 243. D-dimer 1.95. Sodium 135, electrolyt es otherwise normal, BUN 18 creatinine 0.45. Blood sugars running between 117- 129. AST 48, ALT 18, alkaline phosphatase 218, LDH 2243. C-reactive protein 254. Patient had 2 blood cultures, one is showing no growth at 24 hours and the second obtained at 2240 showing gram-positive cocci. She was started on vancomycin. 11/06: Patient remains in ICU, still on a BiPAP treatments,, continuously, terri barber did not have any meals for the past 72 hours secondary to hypoxemia and air hunger without the reading device. Patient has not slept well at all, cytokinin markers are elevated, blood culture growing Staphylococcus from specimen collected November 03 are pending sensitivity. Patient currently is on IV cefazolin, IV vancomycin, followed by infectious disease. So Medrol 60 mg every 6 hours, most of her oral medications cannot be complied upon secondary to hypoxemia event removed briefly. Hemoglobin at 7.2, blood gas shows pCO2 54, PaO2 of 67, 7.39 pH. Double basic count of under 10, creatinine of 0.5, LDH 1845, alkaline phosphatase 194. Albumin low at 2.6, blood pressure stable,Heart rate of 114, blood pressure of 135/90. Pulse ox 85-86 at BiPAP treatments. 11/07 yesterday afternoon, patient required placement of right chest tube secondary to spontaneous pneumothorax placed by the ER doctor,, patient has worsening respiratory status, and was intubated by the ER physician currently with tidal volume of 40, PEEP of 10, assist control rate of 24, FiO2 of 80%. There is residual small pneumothorax right side, there is a left subclavian triple-lumen placed by Dr. Harrington today. There is consult for nutrition, has an OG tube, for which feedings would be started once completed. Chest x-ray shows bilateral diffuse infiltrates, creatinine of 0.4, LDH of 1630, CRP of 36 platelet count 132, hemoglobin 7.3 11/08: Patient remains in the intensive care unit, intubated and on mechanical ventilation with FiO2 100%, tidal volume 400 and PEEP of 10. Patient is currently on sedation. Repeat chest x-ray today reveals increase in size of right-sided pneumothorax since previous measuring of 3.5 cm today compared to 1.2 cm yesterday. Severe interstitial infiltrates throughout the lungs bilaterally slightly increased from previous. A second right-sided chest tube was placed today by Dr. Davison. Repeat blood work reveals WBC 5.2, hemoglobin 6.2, platelet count 133. Sodium 141, potassium 3.5, chloride 107, CO2 35, BUN 24 and creatinine 0.46. Blood sugar 132. Alkaline phosphatase 154. D-dimer 6.35. Patient is ordered for transfusion 1 unit packed RBCs today. Blood culture is MSSA and patient is on Ancef 2 g every 8 hours. Pleural fluid culture in progress. Patient has been afebrile, heart rate low 100s, respiratory rate 27, blood pressure 135/93, pulse ox 96%. Patient will be started on tube feedings today. 11/09: She remains intubated and on mechanical ventilation. She is on both Nimbex and Propofol. She remains intubated and on mechanical ventilation with tidal volume 400, FiO2 65 and PEEP of 10. Repeat chest x-ray reveals improving right apical pneumothorax measuring less than 5%. Stable bilateral diffuse infiltrates. WBC 8, hemoglobin 7.8 status post 1 unit of packed RBCs. Platelet count 123. Sodium 141, potassium 3.9, chloride 105, CO2 37. BUN 28 creatinine 0.51. Blood sugar 142. Inflammatory markers are improving with d-dimer 7.09, fibrinogen 159, LDH 1249, C-reactive protein 8.3, CK 23. Patient is on Kefzol for antibiotics. She remains with right-sided chest tube. She has been a febrile, heart rate 80, blood pressure 116/78, pulse ox 92%. Patient is not requiring vasopressors. 11/10: Initial chest x-ray this morning revealed interval development of 50% left-sided pneumothorax. Patient is status post chest tube placement on the left by Dr. Davison. Repeat chest x-ray revealed bilateral apical pneumothoraces measuring less than 5. Stable on the right improved on the left. Diffuse bilateral pulmonary parenchymal disease stable. Patient remains intubated and on mechanical ventilation. She is now off Nimbex. Tidal volume 500, FiO2 60% and PEEP of 8. Patient is on tube feedings. Repeat blood work reveals WBC 7.5, hemoglobin 7.7, platelet count 126. Sodium 139, potassium 3.3 and was replaced, chloride 98, CO2 38, BUN 28 creatinine 0.41. Cultures are running between 134-150. D-dimer 0.05, LDH 1338, CK 65, C-reactive protein less than 5. Sputum culture is in progress. Blood cultures no growth at 24 hours. All previous blood cultures are showing no growth. IgG is low at 471. Request a nurse contact Dr. Davison about IVIG infusion. 11/11: She remains in the intensive care unit, intubated and on mechanical ventilation with tidal volume 400, FiO2 50% and PEEP of 6. Patient now has bilateral chest tubes in place for bilateral pneumothoraces with right-sided air leak. Weaning will be attempted today. She has been afebrile, heart rate 95, blood pressure 148/81, pulse ox 96%. Repeat blood work reveals W BC 5.8, hemoglobin 10.3, platelet count 101. D-dimer 6.03. C-reactive protein less than 5, CK 44. LDH 1234. Sodium 133, potassium 3.8, chloride 94, CO2 38, BUN 22 and creatinine 0.32. Blood culture, sputum culture, pleural fluid culture also positive for MSSA. Patient is covered with Kefzol. 11/12: Patient remains in intensive care unit, intubated and on mechanical ventilation with tidal volume 400, FiO2 50% and PEEP of 6. She failed weaning trial yesterday and she was desatting and back on propofol as well as Precedex and fentanyl drips were added. Patient has been afebrile, heart rate 86, blood pressure 134/68, pulse ox 90%, respiratory rate 24. Repeat blood work reveals WBC 17.3, hemoglobin 9, platelets 164. Sodium 134, potassium 3.6, chloride 97, CO2 30, BUN 19 and creatinine 0.33. Blood sugars running between 127 and 141. Alkaline phosphatase 149. LDH 1437. C-reactive protein 6.4. Repeat chest x-ray reveals slight interval increase in the right-sided pneumothorax compared to prior exam. Correlate for pneumonia, edema or ARDS. She remains with bilateral chest tubes in place. Prognosis remains guarded. REVIEW OF SYSTEMS Unable to obtain due to intubation PHYSICAL EXAMINATION Full examination deferred due to Covid 19 isolation, intubation and ICU. Gen: This is a 39-year-old female. Patient is resting in the ICU bed on the intubated and on mechanical ventilation. She appears to be in no acute respiratory distress. HEENT: Head is atraumatic, normocephalic. NEUROLOGICAL: Patient is sedated. ASSESSMENT AND PLAN 1. Acute hypoxic respiratory failure secondary to acute Covid 19 pneumonia, MSSA pneumonia, POA . Consult with pulmonary medicine appreciated. Status post Tocilizumab. Patient intubated on November 06. Continue Lovenox 30 mg subcu twice daily, Solu-Medrol 60 mg IV push every 6 hours, zinc and vitamin supplements. Continue Kefzol 2 g IV piggyback every 8 hours. Patient is now on fentanyl drip, propofol, Precedex. 2. Right sided pneumothorax requiring chest tube 11/06 and 11/08. 3. Acute exacerbation of mild intermittent bronchial asthma. Continue Ventolin inhaler 4 times daily as needed. 4. Left-sided pneumothorax requiring chest tube placed on 11/10. 5. Primary immunodeficiency. Low IgG. Possible IVIG infusion of [address] Davison. 6. Chronic anemia most likely due to history of bleeding ulcers and alcohol abuse. 7. Tobacco use and dependence including taping. 8. Daily alcohol use/abuse. Patient apparently has had no alcohol intake for 7 days. Monitor closely for DTs 9. Recurrent depression and generalized anxiety disorder. Continue Abilify 7.5 mg daily, Wellbutrin 150 mg daily, BuSpar 10 mg as needed for anxiety, Cymbalta 60 mg daily. 10. Acute anemia secondary to sepsis without blood loss. Transfuse 1 unit of packed RBCs. 11. Migraine headaches. Continue Fioricet as needed. Hold Inderal 60 mg daily. 12. Sepsis with MSSA bacteremia, POA. Continue Kafzol. 13. Moderate protein calorie malnutrition. Patient maintain on tube feedings 14. Gastroesophageal reflux disease with history of bleeding ulcers. Continue Protonix 40 mg daily and Carafate 1 g 4 times daily. 15. DVT prophylaxis. Lovenox. Prognosis: guarded DISCHARGE PLAN To be determined. Impression and plan of care have been directed as dictated by the signing physician. Isabel Samayoa nurse practitioner acting as scribe for signing physician. Objective - Vital Signs Vital signs: Vital Signs Temp 98.6 F 11/12/20 08:00 Pulse 86 11/12/20 09:00 Resp 24 11/12/20 09:00 BP 119/80 11/12/20 08:00 Pulse Ox 90 L 11/12/20 09:00 Intake & Output 11/11/20 11/12/20 11/12/20 18:59 06:59 18:59 Intake Total 1043.375 866.000 217 Output Total 1885 900 275 Balance -841.625 -34.000 -58 Weight 58.9 kg Intake: IV 306 312 75 0.9 NS flush 66 72 15 Sodium Chloride 0.9% 1, 240 240 60 000 ml @ 20 mls/hr IV . Q24H [facility] Rx#:[id number] Intake, IV Titration 227.375 100.000 Amount Dexmedetomidine/0.9% NaCl 58.886 (Pmx) 400 mcg In Empty Bag 1 bag @ Titrate IV . Q0M [facility] Rx#:[id number] ceFAZolin 2 gm In Sodium 50 Chloride 0.9% 50 ml @ 100 mls/hr IVPB Q8HR [facility] Rx# :[id number] propofoL 1,000 mg In 118.489 100.000 Empty Bag 1 bag @ Titrate IV .Q0M [facility] Rx#: [id number] Tube Feeding 420 364 112 Other 90 90 30 Output: Chest Tube Drainage 75 15 Chest Tube Right 40 5 left chest tube 35 10 Urine 1810 900 260 Other: Voiding Method Indwelling Catheter Indwelling Catheter Indwelling Catheter ABP, PAP, CO, CI - Last Documented Arterial Blood Pressure 134/68 - Labs CBC & Chem 7: 11/12/20 03:30 11/12/20 03:30 Labs: Abnormal Lab Results - Last 24 Hours (Table) 11/11/20 11/11/20 11/11/20 Range/Units 11:28 13:49 17:29 WBC (3.8-10.6) k/uL RBC (3.80-5.40) m/uL Hgb (11.4-16.0) gm/dL Hct (34.0-46.0) % RDW (11.5-15.5) % Neutrophils # (Manual) (1.3-7.7) k/uL ABG pH 7.53 H (7.35-7.45) ABG pO2 62 L (83-108) mmHg ABG HCO3 36 H (21-25) mmol/L ABG Total CO2 37 H (19-24) mmol/L ABG O2 Saturation 93.1 L (94-97) % Sodium (137-145) mmol/L Chloride (98-107) mmol/L BUN (7-17) mg/dL Creatinine (0.52-1.04) mg/dL Glucose (74-99) mg/dL POC Glucose (mg/dL) 119 H 133 H (75-99) mg/dL Alkaline Phosphatase (38-126) U/L Lactate Dehydrogenase (313-618) U/L Total Protein (6.3-8.2) g/dL Albumin (3.5-5.0) g/dL 11/11/20 11/11/20 11/12/20 Range/Units 17:45 23:37 03:30 WBC 17.3 H (3.8-10.6) k/uL RBC 3.28 L (3.80-5.40) m/uL Hgb 9.0 L (11.4-16.0) gm/dL Hct 28.5 L (34.0-46.0) % RDW 18.4 H (11.5-15.5) % Neutrophils # (Manual) 15.70 H (1.3-7.7) k/uL ABG pH 7.50 H (7.35-7.45) ABG pO2 115 H (83-108) mmHg ABG HCO3 34 H (21-25) mmol/L ABG Total CO2 36 H (19-24) mmol/L ABG O2 Saturation 99.1 H (94-97) % Sodium (137-145) mmol/L Chloride (98-107) mmol/L BUN (7-17) mg/dL Creatinine (0.52-1.04) mg/dL Glucose (74-99) mg/dL POC Glucose (mg/dL) 141 H (75-99) mg/dL Alkaline Phosphatase (38-126) U/L Lactate Dehydrogenase (313-618) U/L Total Protein (6.3-8.2) g/dL Albumin (3.5-5.0) g/dL 11/12/20 11/12/20 11/12/20 Range/Units 03:30 05:36 05:59 WBC (3.8-10.6) k/uL RBC (3.80-5.40) m/uL Hgb (11.4-16.0) gm/dL Hct (34.0-46.0) % RDW (11.5-15.5) % Neutrophils # (Manual) (1.3-7.7) k/uL ABG pH 7.49 H (7.35-7.45) ABG pO2 69 L (83-108) mmHg ABG HCO3 34 H (21-25) mmol/L ABG Total CO2 35 H (19-24) mmol/L ABG O2 Saturation (94-97) % Sodium 134 L (137-145) mmol/L Chloride 97 L (98-107) mmol/L BUN 19 H (7-17) mg/dL Creatinine 0.33 L (0.52-1.04) mg/dL Glucose 137 H (74-99) mg/dL POC Glucose (mg/dL) 131 H (75-99) mg/dL Alkaline Phosphatase 149 H (38-126) U/L Lactate Dehydrogenase 1437 H (313-618) U/L Total Protein 5.8 L (6.3-8.2) g/dL Albumin 3.4 L (3.5-5.0) g/dL Microbiology - Last 24 Hours (Table) 11/08/20 18:50 Blood Culture - Preliminary Blood No Growth after 72 hours 11/08/20 12:07 Gram Stain - Final Sputum Sputum Culture - Final Staphylococcus aureus
[2020-11-12] MEDS ORDERED: HYDROmorphone 2 MG/ML 1 ML SYRINGE IVP STA (12:06)
[2020-11-12] MEDS: DEXMEDETOMIDINE/0.9% NACL(PMX) 400 MCG in EMPTY BAG 1 BAG IV SCH ×2 (12:22→18:40)
[2020-11-12 14:03] LABS: Ferritin 27.3 ng/mL (10.0-291.0)
[2020-11-12 16:59] LABS: Glucose,Whole Blood 151 mg/dL (75-99)
[2020-11-12] MEDS: MELATONIN 3 MG TABLET PO SCH (20:05)
[2020-11-13 00:05] LABS: Glucose,Whole Blood 143 mg/dL (75-99)
[2020-11-13] MEDS: INSULIN ASPART (NovoLOG) 100 UNIT/ML VIAL SQ SCH ×5 (00:11→23:56)
[2020-11-13] MEDS: DEXMEDETOMIDINE/0.9% NACL(PMX) 400 MCG in EMPTY BAG 1 BAG IV SCH (02:37)
[2020-11-13] MEDS: fentaNYL (PF) 1,000 MCG in SODIUM CHLORIDE 0.9% 80 ML IV SCH ×3 (04:03→21:50)
[2020-11-13 04:46] LABS: ABG Base Excess 10.7 mmol/L; ABG HCO3 34 mmol/L (21-25); ABG PCO2 43 mmHg (35-45); ABG PH 7.51 (7.35-7.45); ABG PO2 98 mmHg (83-108); ABG TCO2 35 mmol/L (19-24); Allen Test Performed? Yes
[2020-11-13 04:50] LABS: Anisocytosis Slight; Basophils % (A) 0 %; Eosinophils % (A) 0 %; HCT 22.6 % (34.0-46.0); Hypochromasia Slight; Lymphocytes # (A) 0.3 k/uL (1.0-4.8); Lymphocytes % (A) 3 %; MCH 27.6 pg (25.0-35.0); MCHC 32.4 g/dL (31.0-37.0); MCV 85.2 fL (80.0-100.0); Mean Platelet Volume 11.6; Monocytes # (A) 0.2 k/uL (0-1.0); Monocytes % (A) 2 %; Neutrophils # (A) 10.1 k/uL (1.3-7.7); Neutrophils % (A) 94 %; Platelet Count 116 k/uL (150-450); Poikilocytosis Slight; RBC 2.65 m/uL (3.80-5.40); RDW 18.3 % (11.5-15.5); WBC 10.7 k/uL (3.8-10.6)
[2020-11-13 05:00] LABS: ALT 15 U/L (4-34); AST 22 U/L (14-36); African American GFR (CKD) >90 (>60 ml/min/1.73 sqM); Alkaline Phosphatase 108 U/L (38-126); Anion Gap 4 mmol/L; Blood Urea Nitrogen 20 mg/dL (7-17); C Reactive Protein <5.0 mg/L (<10.0); Calcium 8.4 mg/dL (8.4-10.2); Carbon Dioxide 33 mmol/L (22-30); Chloride 97 mmol/L (98-107); Creatine Kinase 22 U/L (30-135); Glucose 119 mg/dL (74-99); HGB 7.3 gm/dL (11.4-16.0); LDH 1057 U/L (313-618); Non-African American GFR(CKD) >90 (>60 ml/min/1.73 sqM); Sodium 134 mmol/L (137-145); Total Bilirubin 0.3 mg/dL (0.2-1.3); Total Protein 5.3 g/dL (6.3-8.2)
[2020-11-13] MEDS: methylPREDNISolone SOD SUCCI 125 MG/2 ML VIAL IV SCH ×4 (05:31→23:35)
[2020-11-13] MEDS: ARTIFICIAL TEARS-HYPROMELLOSE DROPS 15 ML BTL BOTH EYES SCH ×6 (05:33→23:35)
[2020-11-13 05:37] LABS: Glucose,Whole Blood 139 mg/dL (75-99)
[2020-11-13 05:47] LABS: Glucose,Whole Blood 133 mg/dL (75-99)
[2020-11-13] MEDS: SUCRALFATE 1 GM TAB PO SCH ×4 (06:47→20:47)
--- NOTE | 2020-11-13 07:23 | XR ---
EXAMINATION TYPE: XR chest 1V portable DATE OF EXAM: 11/13/2020 COMPARISON: 11/12/2020 HISTORY: Shortness of breath TECHNIQUE: Single frontal view of the chest is obtained. FINDINGS: There is a right-sided chest tube with a small right apical pneumothorax which appears slightly small er than on the prior study. There has been a mild increase in the subcutaneous emphysema which is muc h greater in the right chest. There is a left-sided chest tube unchanged in position and no left-side d pneumothorax. There is an ET tube approximately 3 cm above the ramy. There is an NG tube in stomach. There is a c entral venous catheter entering on the left and terminating in the SVC/RA junction. There are scattered patchy airspace opacities in the mid and lower lung zones right greater than left essentially unchanged compared to the prior study. IMPRESSION: 1. Small right apical pneumothorax slightly smaller in size on the prior study. There is a right ches t tube in place with increasing subcutaneous emphysema in the right chest. 2. No change in the patchy airspace opacities in both lungs right greater than left. 3. ET tube 3 cm above the ramy. 4. Left-sided chest tube unchanged in position and resolution of the left small apical pneumothorax.
--- NOTE | 2020-11-13 07:53 | P.PN ---
Subjective Progress Note Date: 11/13/20 39-year-old female patient is currently in the intensive care unit because of covid 19 related pneumonia with acute hypoxic respiratory failure. The patient presented to the hospital with worsening shortness of breath and fever and chills and congestion. She checked positive for covid 19 on 10/30/2020. The patient is also known to have previous history of GI bleeds, she has nonbleeding antral ulcers 2, she has history of migraine, fibromyalgia, chronic anxiety/depression and chronic back pain and irritable bowel syndrome. She has mild intermittent chronic bronchial asthma and she has been maintained on Advair. She has been in the intensive care unit for now. The patient after being admitted to the intensive care unit, she decompensated and she developed worsening in shortness of breath She has currently intubated on a mechanical ventilator. She was intubated on 11/06/2020 because of worsening respiratory status. While on a mechanical ventilator, the patient developed also a right- sided pneumothorax. Based on that, right-sided chest tube was inserted. For now, the patient a mechanical ventilator. She is sedated with propofol which is currently running at 60 mcg/kg per minute. The patient is paralyzed with Nimbex at 0.5/kg per minute.. She is on a mechanical ventilator on assist control mode at the rate of 24, FiO2 of 100% and PEEP of 10 with a tidal volume of 400. The IV fluids running at 75 mL an hour of normal saline. The patient is currently received Lovenox, Solu-Medrol, vitamin C, vitamin D3, and zinc, as well as TOCI. Chest x-ray is showing a right-sided chest tube with persistent pneumothorax on the right. The blood culture from 11/03/2020 showed staph aureus, MSSA and the patient is currently on IV Ancef 2 g, every 8 hours. The patient is receiving normal enteral feeding for now. The repeat chest x-ray from today shows a 50% pneumothorax on the right. There is a right-sided chest tube in place. There is a left subclavian triple-lumen catheter. The patient continues to have diffuse bilateral pulmonary infiltrates. Blood gases from today shows a pH of 7.37 with a pCO2 of 57 and pO2 of 168 and this was on FiO2 of 100%. Hemoglobin today is down to 6.2. No signs of any acute GI bleeding. The patient will be transfused with a unit of packed RBC. The peak airway pressures around 35 with a static air a pressure of 34 while being on a mechanical ventilator. On today's evaluation of 11/09/2020, the patient remains sedated with propofol and paralyzed with Nimbex. Propofol is running at 75 mcg/kg per minute and Nimbex is running at 2 mg/kg per minute. The patient is well sedated and she is well-appearing paralyzed and she is very symptoms with the mechanical ventilator. She remained on assist control mode at the rate of 24 with a tidal volume of 400 and FiO2 of 65% with a PEEP of 10. She did have a bout of desaturation in the middle of the night. Blood gas was done and this was probably an 100% and he showed a pH of 7.41 with a pCO2 of 58 and pO2 of 200. I repeated blood gases will be needed to reevaluate her oxygenation on a 65% FiO2. Chest x-ray from today shows a small tiny right apical pneumothorax. Otherwise the chest x-ray findings are stable. There is diffuse breath and pulmonary infiltrates. There is improvement in the right-sided pneumothorax less than 5%. Orotracheal tube is in a good location. Peak airway pressure is 33 on a mechanical ventilator. In terms of her pneumonia which is a Covid 19 pneumonia, the patient remains on IV Solu-Medrol 60 mg every 6 hours. She is also on Lovenox for DVT prophylaxis 40 mg subcu. The LDH from today is at 1240 now which is down, the CRP is down to 8.3. Renal function is stable. Creatinine is at 0.5. The d-dimer is high at 7.09 and probably her Lovenox dose needs to be adjusted. She was given a unit of packed RBC yesterday and the hemoglobin came up to 7.8. She is hemodynamically stable. She is on no pressors for now. As mentioned earlier, she has previous history of GI bleeds and nonbleeding antral ulcers in addition to migraine, fibromyalgia, chronic anxiety and depression and chronic back pain addition to asthma. The patient is currently on IV Protonix and she is feeding with vital high protein. She has a left-sided subclavian triple-lumen catheter in place. His evaluation of 11/10/2020, the patient remains sedated with propofol running at 75 mcg/kg per minute. Note that the patient was taken off Nimbex yesterday and that was successful. She was paralyzed for a few days post intubation and I was able to get it off this paralytics. Meanwhile, the patient had a right- sided pneumothorax and I repositioned and placed another chest tube on the right which was successfully expanded right lung although on today's chest x-ray there is a tiny pneumothorax in the right apex however there is a larger pneumothorax on the left which is in order of 10-15%. Meanwhile, I was able to lower the patient's PEEP and currently the patient is an assist-control mode at a tidal volume of 400, FiO2 of 60%, PEEP of 8 and respiratory rate of 24. The blood gases from today showed a pH of 7.52 with a pCO2 of 51 and pO2 of 69. Peak airway pressure on the mechanical ventilator is 27. As such, the patient will need a left-sided chest tube insertion and this will be done at the bedside today. In terms of her Covid 19 pneumonia, the patient remains on IV Solu- Medrol. The patient remains on Lovenox 30 mg subcutaneous for DVT prophylaxis twice a day.. The inflammatory markers from today showing an LDH level of 1338 which is higher and his CRP level of <5 and the patient d-dimer currently is elevated at 8.05. She is receiving enteral feeding for nutritional support. She is currently on vital high protein at the rate of 28 mL an hour. No signs of any GI bleeding. She is on IV Protonix. Her hemoglobin today is at 7.7. No other significant events overnight. She was given a brief sedation holiday today and she was able to arouse quickly and open up her eyes. The active issue for now as it development of a left-sided pneumothorax for which chest tube will be needed. The right-sided chest tube is in place and there is minimal amount of air leak and the patient has developed a small subcutaneous emphysema on the right. Output from the chest tube is in order of 45 mL over the past 24 hours. On 11/11/2020 I'm seeing the patient for a follow-up. As mentioned earlier, the patient is a case of Covid 19 related pneumonia with bilateral pneumothoraces any superinfection with MSSA as MSSA was cultured in the sputum, pleural fluid and in the blood. The patient also has bilateral chest tubes, right-sided chest tube was initially inserted and left-sided chest tube followed as the patient developed bilateral pneumothoraces. On today's evaluation, she is an assist- control mode with a rate of 24 with a tidal volume of 400 and FiO2 of 50% with a PEEP of 6. The blood gas shows a pH of 7.51 with a pCO2 of 46 and pO2 of 68. Ration continues to have some intermittent air leak in the right. No evidence of air leak on the left. Output from the chest tubes are minimal. The chest x- ray from today shows a limited pneumothorax on the left. Chest tubes are all in good location. The infiltrate on the right has improved especially the one in the periphery, and there is some persistent consolidation of the left lower lobe. Nevertheless, I was able to cut down the PEEP down to 6 with an FiO2 of 50% on this patient. Hemodynamically stable. She is on no pressors. She is on IV cefazolin. She is also on Solu-Medrol 60 mg every 6 hours. She is off paralytics. She is on enteral feeding for nutritional support through a orogastric tube. Adequate urine output. Fluid balance over the past 24 hours has been in the order of -2.9 L. She is on normal saline at the rate of 20 mL an hour. Inflammatory markers showed a LDH level of 1234 with a CRP level of less than 5. On the 2020 I'm seeing the patient for a follow-up. Events from yesterday was noted. I was trying to give the patient sedation holiday and taken off the propofol and the patient became quite agitated and restless and hypoxic and asynchronous with a mechanical ventilator. At that point, the weaning was slowed down and the patient was added on Precedex. This morning, she remains on propofol which is running at 50 50 mcg/kg per minute and she is also on Precedex 0.7 at 0.7 g. She seems to be quite comfortable and the same process will be attempted again today. On today's evaluation she is calm and comfortable. She remains on a mechanical ventilator. She is on assist-control mode at the rate of 24 with a tidal volume of 400 and the PEEP is at 6 with an FiO2 of 50%. Peak airway pressure is 27. Chest x-rays showing a tiny right apical pneumothorax. The right-sided chest tube is in place. There is right-sided subcutaneous emphysema. No pneumothorax on the left. The ET tube is sitting just above the ramy and it may need to be retracted slightly. OG tube is in a good location. The patient had a blood gases this morning that showed a pH of 7.49 with a pCO2 of 44 and pO2 of 69. The cultures as mentioned earlier was all positive for MSSA in the sputum and in the blood and in the pleural fluid. Note that there is no evidence of any air leak on the left-sided chest tube. On the right-sided chest tube, there was intermittent leak yesterday and has been present for today. She remains on IV cefazolin. She remains on steroids and she is receiving IV Solu Medrol 60 mg every 6 hours. She is on Lovenox 30 mg subcu twice a day. Rest of the blood work and inflammatory markers are still pending for now. She is being fed and she is receiving vital high protein at the rate of 28 mL an hour. Inflammatory markers from today shows an LDH of 1437 and his CRP is 6.4. 11/13/2020, the patient remains intubated. In terms of her pulmonary status, the patient has Covid 19 related pneumonia with secondary respiratory failure and bilateral pneumothoraces. She currently has chest tubes on both sides. No evidence of any air leak on today's chest tube evaluation. On today's evaluation, the chest x-ray showing no significant pneumothorax. Lungs are well expanded. There is diffuse but the port infiltrates related to Covid 19 related pneumonia. She is an assist-control mode at the rate of 26 with a tidal volume of 400 and FiO2 of 50% with a PEEP of 5. Note that I was trying to the blood gas showed a pH of 7.51 with a pCO2 of 43 and pO2 of 98. I was trying to wean her off the sedation and check some weaning parameters yesterday. The entire process failed and the patient became quite agitated. When the process of doing a slow wean of the propofol which is running at 40 mics this morning. She is also on Precedex at 0.7 g and fentanyl at 2 mcg/kg/h. For the most part, she was able to open up her eyes pH was able to follow some simple commands. I think it's going to be very hard to check some weaning parameters and assess readiness to wean on this patient by giving her a spontaneous breathing trial. When I and up extubating her if she is able to wake up appropriately running the risk of the intubation. Overall condition is stable. Hemodynamically stable. She was tolerating her enteral feeding for nutritional support. She has been consistently in a negative fluid balance. No signs of any fluid overload for now. In terms of her Covid 19 related pneumonia, she remains on IV steroids and she is on IV Solu-Medrol. She remains on Lovenox for DVT prophylaxis 30 mg subcu twice a day. He got d-dimer of 5.54 which is improving. Her rest of the inflammatory markers showed a declining LDH down to 1057 and a declining CRP which is less than 5. No pressors for now. She was receiving vital high protein at the rate of 28 mL an hour for enteral feeding and nutritional support. We are in the process of weaning this patient off the sedation again and assessing her mental status. I'm hopeful that she is going to stay nonagitated. I understand that she has chronic dependence on alcohol Objective - Vital Signs Vital signs: Vital Signs Temp 98.8 F 11/13/20 04:00 Pulse 74 11/13/20 07:00 Resp 24 11/13/20 07:00 BP 109/75 11/13/20 07:00 Pulse Ox 96 11/13/20 07:00 Intake & Output 11/12/20 11/13/20 11/13/20 18:59 06:59 18:59 Intake Total 6090.558 6532.019 26 Output Total 1180 1460 175 Balance 156.539 -145.981 -149 Weight 58.9 kg Intake: IV 309 312 26 0.9 NS flush 69 72 6 Sodium Chloride 0.9% 1, 240 240 20 000 ml @ 20 mls/hr IV . Q24H [facility] Rx#:[id number] Intake, IV Titration 426.539 417.019 Amount Dexmedetomidine/0.9% NaCl 100 (Pmx) 400 mcg In Empty Bag 1 bag @ Titrate IV . Q0M [facility] Rx#:[id number] Dexmedetomidine/0.9% NaCl 64.94 81.949 (Pmx) 400 mcg In Empty Bag 1 bag @ Titrate IV . Q0M [facility] Rx#:[id number] ceFAZolin 2 gm In Sodium 50 Chloride 0.9% 50 ml @ 100 mls/hr IVPB Q8HR [facility] Rx# :[id number] fentaNYL (PF) 1,000 mcg 66.705 93.946 In Sodium Chloride 0.9% 80 ml @ Per Protocol IV . Q0M [facility] Rx#:[id number] propofoL 1,000 mg In 144.894 241.124 Empty Bag 1 bag @ Titrate IV .Q0M [facility] Rx#: [id number] Tube Feeding 511 495 Other 90 90 Output: Chest Tube Drainage 40 25 Chest Tube Right 20 20 left chest tube 20 5 Urine 1140 1460 150 Other: Voiding Method Indwelling Catheter Indwelling Catheter ABP, PAP, CO, CI - Last Documented Arterial Blood Pressure 127/61 - Exam The patient is currently sedated no paralysis for now There is an orally placed endotracheal tube, and NG tube. The patient is coming off the sedation I was able to make a follow some simple commands. Her responses not consistent and at times she gets more fascia and HEENT examination is grossly unremarkable. Mucous membranes are moist. Neck supple. Full range of motion. No adenopathy thyromegaly or neck vein distention. Cardiovascular examination reveals regular rhythm rate. S1-S2 normal. No S3 or S4. No discernible murmur noted. Heart sounds are distant. Heart rate is 94 bpm. Lungs reveal bilateral coarse rhonchi. No wheezes or crackles. Breath sounds are essentially equal bilaterally. A right-sided chest tube is noted. I noted that there is no evidence of any air leak and the patient has diminished breath sound the right compared to left. Crackles are present bilaterally, and the patient has a small subcutaneous emphysema along the right lateral chest area. The patient also has a left-sided chest tube. Output from the chest tubes have been minimal and there is intermittent air leak on the right. Sounds are equal and symmetrical. Scattered rhonchi are still present. Abdominal exam revealed normal bowel sounds. The abdomen was soft, non-tender, and without masses, organomegaly, or appreciable enlargement of the abdominal aorta. Extremities are intact. No cyanosis clubbing or edema. Skin is without rash or lesion. Neurologic , pupils are equal and reactive to light. Moving all 4 extremities. As the patient is coming off sedation she is able to follow some commands. She is still lethargic. Not fully alert. At times agitated. - Labs CBC & Chem 7: 11/13/20 04:45 11/13/20 04:45 Labs: Abnormal Lab Results - Last 24 Hours (Table) 11/12/20 11/12/20 11/12/20 Range/Units 03:30 11:12 16:48 WBC (3.8-10.6) k/uL RBC (3.80-5.40) m/uL Hgb (11.4-16.0) gm/dL Hct (34.0-46.0) % RDW (11.5-15.5) % Plt Count (150-450) k/uL Neutrophils # (1.3-7.7) k/uL Neutrophils # (Manual) 15.70 H (1.3-7.7) k/uL Lymphocytes # (1.0-4.8) k/uL D-Dimer (<0.60) mg/L FEU ABG pH (7.35-7.45) ABG HCO3 (21-25) mmol/L ABG Total CO2 (19-24) mmol/L ABG O2 Saturation (94-97) % Sodium (137-145) mmol/L Chloride (98-107) mmol/L Carbon Dioxide (22-30) mmol/L BUN (7-17) mg/dL Creatinine (0.52-1.04) mg/dL Glucose (74-99) mg/dL POC Glucose (mg/dL) 127 H 151 H (75-99) mg/dL Lactate Dehydrogenase (313-618) U/L Creatine Kinase (30-135) U/L Total Protein (6.3-8.2) g/dL Albumin (3.5-5.0) g/dL 11/13/20 11/13/20 11/13/20 Range/Units 00:03 04:36 04:45 WBC 10.7 H (3.8-10.6) k/uL RBC 2.65 L (3.80-5.40) m/uL Hgb 7.3 L D (11.4-16.0) gm/dL Hct 22.6 L (34.0-46.0) % RDW 18.3 H (11.5-15.5) % Plt Count 116 L (150-450) k/uL Neutrophils # 10.1 H (1.3-7.7) k/uL Neutrophils # (Manual) (1.3-7.7) k/uL Lymphocytes # 0.3 L (1.0-4.8) k/uL D-Dimer (<0.60) mg/L FEU ABG pH 7.51 H (7.35-7.45) ABG HCO3 34 H (21-25) mmol/L ABG Total CO2 35 H (19-24) mmol/L ABG O2 Saturation 98.0 H (94-97) % Sodium (137-145) mmol/L Chloride (98-107) mmol/L Carbon Dioxide (22-30) mmol/L BUN (7-17) mg/dL Creatinine (0.52-1.04) mg/dL Glucose (74-99) mg/dL POC Glucose (mg/dL) 143 H (75-99) mg/dL Lactate Dehydrogenase (313-618) U/L Creatine Kinase (30-135) U/L Total Protein (6.3-8.2) g/dL Albumin (3.5-5.0) g/dL 11/13/20 11/13/20 11/13/20 Range/Units 04:45 04:45 05:36 WBC (3.8-10.6) k/uL RBC (3.80-5.40) m/uL Hgb (11.4-16.0) gm/dL Hct (34.0-46.0) % RDW (11.5-15.5) % Plt Count (150-450) k/uL Neutrophils # (1.3-7.7) k/uL Neutrophils # (Manual) (1.3-7.7) k/uL Lymphocytes # (1.0-4.8) k/uL D-Dimer 5.54 H (<0.60) mg/L FEU ABG pH (7.35-7.45) ABG HCO3 (21-25) mmol/L ABG Total CO2 (19-24) mmol/L ABG O2 Saturation (94-97) % Sodium 134 L (137-145) mmol/L Chloride 97 L (98-107) mmol/L Carbon Dioxide 33 H (22-30) mmol/L BUN 20 H (7-17) mg/dL Creatinine 0.29 L (0.52-1.04) mg/dL Glucose 119 H (74-99) mg/dL POC Glucose (mg/dL) 139 H (75-99) mg/dL Lactate Dehydrogenase 1057 H (313-618) U/L Creatine Kinase 22 L (30-135) U/L Total Protein 5.3 L (6.3-8.2) g/dL Albumin 3.0 L (3.5-5.0) g/dL 11/13/20 Range/Units 05:45 WBC (3.8-10.6) k/uL RBC (3.80-5.40) m/uL Hgb (11.4-16.0) gm/dL Hct (34.0-46.0) % RDW (11.5-15.5) % Plt Count (150-450) k/uL Neutrophils # (1.3-7.7) k/uL Neutrophils # (Manual) (1.3-7.7) k/uL Lymphocytes # (1.0-4.8) k/uL D-Dimer (<0.60) mg/L FEU ABG pH (7.35-7.45) ABG HCO3 (21-25) mmol/L ABG Total CO2 (19-24) mmol/L ABG O2 Saturation (94-97) % Sodium (137-145) mmol/L Chloride (98-107) mmol/L Carbon Dioxide (22-30) mmol/L BUN (7-17) mg/dL Creatinine (0.52-1.04) mg/dL Glucose (74-99) mg/dL POC Glucose (mg/dL) 133 H (75-99) mg/dL Lactate Dehydrogenase (313-618) U/L Creatine Kinase (30-135) U/L Total Protein (6.3-8.2) g/dL Albumin (3.5-5.0) g/dL Microbiology - Last 24 Hours (Table) 11/08/20 18:50 Blood Culture - Preliminary Blood No Growth after 96 hours Assessment and Plan Plan: 1 Acute hypoxemic respiratory failure secondary to acute COVID 19 pneumonia. the patient is currently intubated on a mechanical ventilator. the patient is sedated and off paralyzed. The peak airway pressure is 25-27. The patient is on IV Solu-Medrol. The patient also received tocilizumab. No Remdesivir he had the patient's chest x-ray still showing diffuse breath and pulmonary infiltrates. Nevertheless, her oxygenation has improved. Lung mechanics is improved. Ever pressures are low. The patient should be potentially weaned as long as her neurologic response is appropriate and she is able to follow commands and hopefully give us a good weaning parameters once his breathing trial. I'm also contemplating the possibility of extubating her. I'm unable to do the standard weaning trials with CPAP. On today's evaluation, there is no evidence of air leaks and the lungs are well expanded. Chest tubes are in good location. Inflammatory markers improving in regards to her Covid 19 related pneumonia. 2 Acute exacerbation of mild intermittent chronic bronchial asthma secondary to above. 3 Anemia in a patient with a known history of nonbleeding ulcers with previous EGD and GI bleed. The patient got transfused with a packed RBC units and hemoglobin is improved and is stable for now and there is no signs of GI bleeding and the patient is currently on a combination of Protonix and Carafate. The hemoglobin is drifting down to 7.3 today without evidence of any acute GI bleeding 4 bilateral pneumothoraces requiring bilateral chest tube insertion with adequate expansion, no evidence of air leak on today's evaluation 5 Covid 19 related pneumonia with bilateral pulmonary infiltrates currently on IV Solu-Medrol 6 History of immunodeficiency disorder. 7 Irritable bowel syndrome. 8 History of migraine. 9 Fibromyalgia. 10 History of chronic back pain. 11 MSSA bacteremia currently on IV Ancef 2 g every 8 hours on the patient also had staph aureus and the pleural fluid which obviously raises the concern for a pneumonia with parapneumonic effusion and pleural space infection. Consider staphylococcal pneumonia accordingly. 12 History of chronic tobacco dependence, vaping., 13 acute on top of chronic anemia 14 history of alcoholism 15 history of chronic pain dependence 16 history of chronic anxiety/depression Plan: Gradually wean off propofol and use Precedex and add fentanyl Check weaning parameters and this point is breathing trial if possible Keep the chest tubes in place Continue IV Solu-Medrol Continue monitoring the inflammatory markers. The markers are all improving with exception of d-dimer which is high and the patient will be placed on Lovenox 30 mg subcu every 12 hours , repeat d-dimer LDH is improving enteral feeding for nutritional support vital high protein at the rate of 28 mL an hour, hold enteral feeding for now pending possible weaning today continue the Ancef Continue oral Protonix 40 mg twice a day Condition is critical. We'll continue to follow make further recommendations based on her progress. Critically care evaluation that was done and more than 30 minutes Time with Patient: Greater than 30
[2020-11-13] MEDS: ALBUTEROL HFA INHALER INHALATION PRN ×2 (07:54→19:09)
[2020-11-13 09:28] LABS: Ferritin 17.9 ng/mL (10.0-291.0)
[2020-11-13] MEDS: CHLORHEXIDINE GLUCONATE 15 ML CUP MUCOUS MEM SCH (09:49)
--- NOTE | 2020-11-13 09:51 | P.PN ---
Subjective Progress Note Date: 11/13/20 HISTORY OF PRESENT ILLNESS This is a 39-year-old female patient of Dr. Gonzalez with past medical history of GI bleed in 2008, July 2020 was admitted for GI bleed secondary to 2 no nbleeding antral ulcers requiring transfusion 2 units packed RBCs, tobacco use, alcohol abuse, recurrent depression, generalized anxiety disorder. Patient was diagnosed with COVID-19 on October 30. She complains of increasing shortness of breath, cough, congestion, fever and chills and hoarseness. She continued to worsen significantly over the past 2 days. She also complains of bloody sputum production. Patient came into [facility] emergency center for evaluation. Temperature 98.3, heart rate 102, respiratory rate 40, blood pressure 95/64, pulse ox 71%. EKG was a sinus rhythm no acute ST elevation. W BC 9.4, hemoglobin 8.6, platelet count 284. Sodium 135, potassium 2.8, chloride 102, CO2 21, BUN 19 creatinine 0.88. Blood sugar 92. AST 71, ALT 24, alkaline phosphatase 264 [place] phosphatase 264, LDH 2067, CA reactive protein 320.8. Lactic acid 3.1. CT angiogram of the chest reveals no evidence pulmonary embolism. Severe pulmonary interstitial and airspace edema. Chest x-ray reveals pulmonary interstitial pneumonia worse than recent exam. Some airspace component. Patient is status post 2 L of IV fluids, potassium replacement, Dilaudid, patient seen by pulmonary medicine and started on Tocilizumab. 11/05: Patient remains in the intensive care unit. She is a nonrebreather mask and AorVp and can maintain a pulse ox in the 90s. If she removes these, patient follows less than 70s. She is very anxious today and has many questions. She does have large number of psychiatric medications which have been resumed. We will also add and Xanax twice daily as needed. She has been afebrile, heart rate 89, blood pressure 116/79, pulse ox 95%. Repeat blood work reveals WBC 11.8, hemoglobin 7.7, platelet count 243. D-dimer 1.95. Sodium 135, electrolyt es otherwise normal, BUN 18 creatinine 0.45. Blood sugars running between 117- 129. AST 48, ALT 18, alkaline phosphatase 218, LDH 2243. C-reactive protein 254. Patient had 2 blood cultures, one is showing no growth at 24 hours and the second obtained at 2240 showing gram-positive cocci. She was started on vancomycin. 11/06: Patient remains in ICU, still on a BiPAP treatments,, continuously, terri barber did not have any meals for the past 72 hours secondary to hypoxemia and air hunger without the reading device. Patient has not slept well at all, cytokinin markers are elevated, blood culture growing Staphylococcus from specimen collected November 03 are pending sensitivity. Patient currently is on IV cefazolin, IV vancomycin, followed by infectious disease. So Medrol 60 mg every 6 hours, most of her oral medications cannot be complied upon secondary to hypoxemia event removed briefly. Hemoglobin at 7.2, blood gas shows pCO2 54, PaO2 of 67, 7.39 pH. Double basic count of under 10, creatinine of 0.5, LDH 1845, alkaline phosphatase 194. Albumin low at 2.6, blood pressure stable,Heart rate of 114, blood pressure of 135/90. Pulse ox 85-86 at BiPAP treatments. 11/07 yesterday afternoon, patient required placement of right chest tube secondary to spontaneous pneumothorax placed by the ER doctor,, patient has worsening respiratory status, and was intubated by the ER physician currently with tidal volume of 40, PEEP of 10, assist control rate of 24, FiO2 of 80%. There is residual small pneumothorax right side, there is a left subclavian triple-lumen placed by Dr. Harrington today. There is consult for nutrition, has an OG tube, for which feedings would be started once completed. Chest x-ray shows bilateral diffuse infiltrates, creatinine of 0.4, LDH of 1630, CRP of 36 platelet count 132, hemoglobin 7.3 11/08: Patient remains in the intensive care unit, intubated and on mechanical ventilation with FiO2 100%, tidal volume 400 and PEEP of 10. Patient is currently on sedation. Repeat chest x-ray today reveals increase in size of right-sided pneumothorax since previous measuring of 3.5 cm today compared to 1.2 cm yesterday. Severe interstitial infiltrates throughout the lungs bilaterally slightly increased from previous. A second right-sided chest tube was placed today by Dr. Davison. Repeat blood work reveals WBC 5.2, hemoglobin 6.2, platelet count 133. Sodium 141, potassium 3.5, chloride 107, CO2 35, BUN 24 and creatinine 0.46. Blood sugar 132. Alkaline phosphatase 154. D-dimer 6.35. Patient is ordered for transfusion 1 unit packed RBCs today. Blood culture is MSSA and patient is on Ancef 2 g every 8 hours. Pleural fluid culture in progress. Patient has been afebrile, heart rate low 100s, respiratory rate 27, blood pressure 135/93, pulse ox 96%. Patient will be started on tube feedings today. 11/09: She remains intubated and on mechanical ventilation. She is on both Nimbex and Propofol. She remains intubated and on mechanical ventilation with tidal volume 400, FiO2 65 and PEEP of 10. Repeat chest x-ray reveals improving right apical pneumothorax measuring less than 5%. Stable bilateral diffuse infiltrates. WBC 8, hemoglobin 7.8 status post 1 unit of packed RBCs. Platelet count 123. Sodium 141, potassium 3.9, chloride 105, CO2 37. BUN 28 creatinine 0.51. Blood sugar 142. Inflammatory markers are improving with d-dimer 7.09, fibrinogen 159, LDH 1249, C-reactive protein 8.3, CK 23. Patient is on Kefzol for antibiotics. She remains with right-sided chest tube. She has been a febrile, heart rate 80, blood pressure 116/78, pulse ox 92%. Patient is not requiring vasopressors. 11/10: Initial chest x-ray this morning revealed interval development of 50% left-sided pneumothorax. Patient is status post chest tube placement on the left by Dr. Davison. Repeat chest x-ray revealed bilateral apical pneumothoraces measuring less than 5. Stable on the right improved on the left. Diffuse bilateral pulmonary parenchymal disease stable. Patient remains intubated and on mechanical ventilation. She is now off Nimbex. Tidal volume 500, FiO2 60% and PEEP of 8. Patient is on tube feedings. Repeat blood work reveals WBC 7.5, hemoglobin 7.7, platelet count 126. Sodium 139, potassium 3.3 and was replaced, chloride 98, CO2 38, BUN 28 creatinine 0.41. Cultures are running between 134-150. D-dimer 0.05, LDH 1338, CK 65, C-reactive protein less than 5. Sputum culture is in progress. Blood cultures no growth at 24 hours. All previous blood cultures are showing no growth. IgG is low at 471. Request a nurse contact Dr. Davison about IVIG infusion. 11/11: She remains in the intensive care unit, intubated and on mechanical ventilation with tidal volume 400, FiO2 50% and PEEP of 6. Patient now has bilateral chest tubes in place for bilateral pneumothoraces with right-sided air leak. Weaning will be attempted today. She has been afebrile, heart rate 95, blood pressure 148/81, pulse ox 96%. Repeat blood work reveals W BC 5.8, hemoglobin 10.3, platelet count 101. D-dimer 6.03. C-reactive protein less than 5, CK 44. LDH 1234. Sodium 133, potassium 3.8, chloride 94, CO2 38, BUN 22 and creatinine 0.32. Blood culture, sputum culture, pleural fluid culture also positive for MSSA. Patient is covered with Kefzol. 11/12: Patient remains in intensive care unit, intubated and on mechanical ventilation with tidal volume 400, FiO2 50% and PEEP of 6. She failed weaning trial yesterday and she was desatting and back on propofol as well as Precedex and fentanyl drips were added. Patient has been afebrile, heart rate 86, blood pressure 134/68, pulse ox 90%, respiratory rate 24. Repeat blood work reveals WBC 17.3, hemoglobin 9, platelets 164. Sodium 134, potassium 3.6, chloride 97, CO2 30, BUN 19 and creatinine 0.33. Blood sugars running between 127 and 141. Alkaline phosphatase 149. LDH 1437. C-reactive protein 6.4. Repeat chest x-ray reveals slight interval increase in the right-sided pneumothorax compared to prior exam. Correlate for pneumonia, edema or ARDS. She remains with bilateral chest tubes in place. Prognosis remains guarded. 11/13: Patient remains in the intensive care unit. She has been successfully extubated this morning and is on 15 L high flow nasal cannula. She has been afebrile, heart rate in the 80s, blood pressure 109/75. Repeat blood work reveals W BC 10.7, hemoglobin 7.3, platelet count 116. D-dimer 5.54. Sodium 134, potassium 4.0, chloride 97, CO2 33, BUN 20, creatinine 0.29. Blood sugars running between 119 and 143. LDH 1057, CK 22, C-reactive protein less than 5. Chest x-ray reveals small right apical pneumothorax slightly smaller. Right chest tube. No change in patchy airspace opacities in the lung right greater than left. Left-sided chest tube unchanged in position and resolution of left small apical pneumothorax. The patient's mental status is not back to baseline. She is somewhat confused. REVIEW OF SYSTEMS Unable to obtain due to mental status. PHYSICAL EXAMINATION Full examination deferred due to Covid 19 isolation, intubation and ICU. Gen: This is a 39-year-old female. Patient is resting in the ICU bed on the intubated and on mechanical ventilation. She appears to be in no acute respiratory distress. HEENT: Head is atraumatic, normocephalic. NEUROLOGICAL: Patient is sedated. ASSESSMENT AND PLAN 1. Acute hypoxic respiratory failure secondary to acute Covid 19 pneumonia, MSSA pneumonia, POA, successfully extubated . Consult with pulmonary medicine appreciated. Status post Tocilizumab. Patient intubated on November 06. Continue Lovenox 30 mg subcu twice daily, Solu-Medrol 60 mg IV push every 6 hours, zinc and vitamin supplements. Continue Kefzol 2 g IV piggyback every 8 hours. Patient is now on fentanyl drip, propofol, Precedex. 2. Right sided pneumothorax requiring chest tube 11/06 and 11/08. Continue chest tubes. 3. Acute exacerbation of mild intermittent bronchial asthma. Continue Ventolin inhaler 4 times daily as needed. 4. Left-sided pneumothorax requiring chest tube placed on 11/10. 5. Primary immunodeficiency. Low IgG. Possible IVIG infusion of okay with Dr. Davison. 6. Chronic anemia most likely due to history of bleeding ulcers and alcohol abuse. 7. Tobacco use and dependence including taping. 8. Daily alcohol use/abuse. Patient apparently has had no alcohol intake for 7 days. Monitor closely for DTs 9. Recurrent depression and generalized anxiety disorder. Continue Abilify 7.5 mg daily, Wellbutrin 150 mg daily, BuSpar 10 mg as needed for anxiety, Cymbalta 60 mg daily. 10. Acute anemia secondary to sepsis without blood loss. Transfuse 1 unit of packed RBCs. 11. Migraine headaches. Continue Fioricet as needed. Hold Inderal 60 mg daily. 12. Sepsis with MSSA bacteremia, POA. Continue Kafzol. 13. Moderate protein calorie malnutrition. Patient maintain on tube feedings 14. Gastroesophageal reflux disease with history of bleeding ulcers. Continue Protonix 40 mg daily and Carafate 1 g 4 times daily. 15. DVT prophylaxis. Lovenox. DISCHARGE PLAN To be determined. Impression and plan of care have been directed as dictated by the signing physi cian. Isabel Samayoa nurse practitioner acting as scribe for signing physician. Objective - Vital Signs Vital signs: Vital Signs Temp 99.9 F H 11/13/20 08:00 Pulse 150 H 11/13/20 08:00 Resp 40 H 11/13/20 08:00 BP 109/75 11/13/20 08:00 Pulse Ox 78 L 11/13/20 08:00 Intake & Output 11/12/20 11/13/20 11/13/20 18:59 06:59 18:59 Intake Total 6422.852 2624.019 226.280 Output Total 1180 1460 775 Balance 156.539 -145.981 -548.720 Weight 58.9 kg Intake: IV 309 312 66 0.9 NS flush 69 72 46 Sodium Chloride 0.9% 1, 240 240 20 000 ml @ 20 mls/hr IV . Q24H [facility] Rx#:[id number] Intake, IV Titration 426.539 417.019 160.280 Amount Dexmedetomidine/0.9% NaCl 100 (Pmx) 400 mcg In Empty Bag 1 bag @ Titrate IV . Q0M [facility] Rx#:[id number] Dexmedetomidine/0.9% NaCl 64.94 81.949 71.641 (Pmx) 400 mcg In Empty Bag 1 bag @ Titrate IV . Q0M [facility] Rx#:[id number] ceFAZolin 2 gm In Sodium 50 50 Chloride 0.9% 50 ml @ 100 mls/hr IVPB Q8HR [facility] Rx# :[id number] fentaNYL (PF) 1,000 mcg 66.705 93.946 In Sodium Chloride 0.9% 80 ml @ Per Protocol IV . Q0M [facility] Rx#:[id number] propofoL 1,000 mg In 144.894 241.124 38.639 Empty Bag 1 bag @ Titrate IV .Q0M [facility] Rx#: [id number] Tube Feeding 511 495 Other 90 90 Output: Chest Tube Drainage 40 25 Chest Tube Right 20 20 left chest tube 20 5 Urine 1140 1460 750 Other: Voiding Method Indwelling Catheter Indwelling Catheter Indwelling Catheter ABP, PAP, CO, CI - Last Documented Arterial Blood Pressure 196/95 - Labs CBC & Chem 7: 11/13/20 04:45 11/13/20 04:45 Labs: Abnormal Lab Results - Last 24 Hours (Table) 11/12/20 11/12/20 11/13/20 Range/Units 11:12 16:48 00:03 WBC (3.8-10.6) k/uL RBC (3.80-5.40) m/uL Hgb (11.4-16.0) gm/dL Hct (34.0-46.0) % RDW (11.5-15.5) % Plt Count (150-450) k/uL Neutrophils # (1.3-7.7) k/uL Lymphocytes # (1.0-4.8) k/uL D-Dimer (<0.60) mg/L FEU ABG pH (7.35-7.45) ABG HCO3 (21-25) mmol/L ABG Total CO2 (19-24) mmol/L ABG O2 Saturation (94-97) % Sodium (137-145) mmol/L Chloride (98-107) mmol/L Carbon Dioxide (22-30) mmol/L BUN (7-17) mg/dL Creatinine (0.52-1.04) mg/dL Glucose (74-99) mg/dL POC Glucose (mg/dL) 127 H 151 H 143 H (75-99) mg/dL Lactate Dehydrogenase (313-618) U/L Creatine Kinase (30-135) U/L Total Protein (6.3-8.2) g/dL Albumin (3.5-5.0) g/dL 11/13/20 11/13/20 11/13/20 Range/Units 04:36 04:45 04:45 WBC 10.7 H (3.8-10.6) k/uL RBC 2.65 L (3.80-5.40) m/uL Hgb 7.3 L D (11.4-16.0) gm/dL Hct 22.6 L (34.0-46.0) % RDW 18.3 H (11.5-15.5) % Plt Count 116 L (150-450) k/uL Neutrophils # 10.1 H (1.3-7.7) k/uL Lymphocytes # 0.3 L (1.0-4.8) k/uL D-Dimer 5.54 H (<0.60) mg/L FEU ABG pH 7.51 H (7.35-7.45) ABG HCO3 34 H (21-25) mmol/L ABG Total CO2 35 H (19-24) mmol/L ABG O2 Saturation 98.0 H (94-97) % Sodium (137-145) mmol/L Chloride (98-107) mmol/L Carbon Dioxide (22-30) mmol/L BUN (7-17) mg/dL Creatinine (0.52-1.04) mg/dL Glucose (74-99) mg/dL POC Glucose (mg/dL) (75-99) mg/dL Lactate Dehydrogenase (313-618) U/L Creatine Kinase (30-135) U/L Total Protein (6.3-8.2) g/dL Albumin (3.5-5.0) g/dL 11/13/20 11/13/20 11/13/20 Range/Units 04:45 05:36 05:45 WBC (3.8-10.6) k/uL RBC (3.80-5.40) m/uL Hgb (11.4-16.0) gm/dL Hct (34.0-46.0) % RDW (11.5-15.5) % Plt Count (150-450) k/uL Neutrophils # (1.3-7.7) k/uL Lymphocytes # (1.0-4.8) k/uL D-Dimer (<0.60) mg/L FEU ABG pH (7.35-7.45) ABG HCO3 (21-25) mmol/L ABG Total CO2 (19-24) mmol/L ABG O2 Saturation (94-97) % Sodium 134 L (137-145) mmol/L Chloride 97 L (98-107) mmol/L Carbon Dioxide 33 H (22-30) mmol/L BUN 20 H (7-17) mg/dL Creatinine 0.29 L (0.52-1.04) mg/dL Glucose 119 H (74-99) mg/dL POC Glucose (mg/dL) 139 H 133 H (75-99) mg/dL Lactate Dehydrogenase 1057 H (313-618) U/L Creatine Kinase 22 L (30-135) U/L Total Protein 5.3 L (6.3-8.2) g/dL Albumin 3.0 L (3.5-5.0) g/dL Microbiology - Last 24 Hours (Table) 11/08/20 18:50 Blood Culture - Preliminary Blood No Growth after 96 hours
[2020-11-13] MEDS: ENOXAPARIN 30 MG/0.3 ML SYRINGE SQ SCH ×2 (09:58→20:25)
[2020-11-13] MEDS: PANTOPRAZOLE 40 MG/10 ML VIAL IVP SCH ×2 (09:58→20:24)
[2020-11-13 11:37] LABS: Glucose,Whole Blood 118 mg/dL (75-99)
[2020-11-13] MEDS: ASCORBIC ACID 500 MG TAB PO SCH (14:34)
[2020-11-13] MEDS: CHOLECALCIFEROL 25 MCG (1000 IU) TABLET PO SCH (14:34)
[2020-11-13] MEDS: DULoxetine HCL 60 MG CAPSULE.DR PO SCH (14:34)
[2020-11-13] MEDS: buPROPion XL 150 MG TAB.ER.24H PO SCH (14:34)
[2020-11-13] MEDS: ZINC SULFATE 220 MG CAP PO SCH (14:34)
[2020-11-13] MEDS: ARIPiprazole 5 MG TAB PO SCH (14:34)
[2020-11-13] MEDS: SODIUM CHLORIDE 0.9% 1,000 ML IV SCH (14:35)
[2020-11-13 18:32] LABS: Glucose,Whole Blood 101 mg/dL (75-99)
[2020-11-13] MEDS: MELATONIN 3 MG TABLET PO SCH (20:46)
[2020-11-13 23:49] LABS: Glucose,Whole Blood 94 mg/dL (75-99)
[2020-11-14] MEDS: ARTIFICIAL TEARS-HYPROMELLOSE DROPS 15 ML BTL BOTH EYES SCH ×6 (03:52→23:41)
[2020-11-14 05:49] LABS: Glucose,Whole Blood 99 mg/dL (75-99)
[2020-11-14 05:57] LABS: Anisocytosis Slight; Basophils % (A) 0 %; Eosinophils % (A) 0 %; HCT 26.9 % (34.0-46.0); Hypochromasia Moderate; Lymphocytes # (A) 0.2 k/uL (1.0-4.8); Lymphocytes % (A) 1 %; MCH 28.3 pg (25.0-35.0); MCV 85.8 fL (80.0-100.0); Mean Platelet Volume 10.3; Monocytes # (A) 0.5 k/uL (0-1.0); Monocytes % (A) 2 %; Neutrophils # (A) 18.3 k/uL (1.3-7.7); Neutrophils % (A) 96 %; Platelet Count 152 k/uL (150-450); Poikilocytosis Slight; RBC 3.13 m/uL (3.80-5.40); RDW 18.1 % (11.5-15.5); WBC 19.1 k/uL (3.8-10.6)
[2020-11-14 06:01] LABS: HGB 8.9 gm/dL (11.4-16.0)
[2020-11-14 06:11] LABS: ALT 17 U/L (4-34); AST 49 U/L (14-36); African American GFR (CKD) >90 (>60 ml/min/1.73 sqM); Albumin 3.7 g/dL (3.5-5.0); Alkaline Phosphatase 149 U/L (38-126); Anion Gap 9 mmol/L; Blood Urea Nitrogen 17 mg/dL (7-17); C Reactive Protein 29.4 mg/L (<10.0); Calcium 8.9 mg/dL (8.4-10.2); Carbon Dioxide 31 mmol/L (22-30); Chloride 94 mmol/L (98-107); Creatine Kinase 61 U/L (30-135); Glucose 97 mg/dL (74-99); Non-African American GFR(CKD) >90 (>60 ml/min/1.73 sqM); Potassium 3.7 mmol/L (3.5-5.1); Sodium 134 mmol/L (137-145); Total Bilirubin 0.7 mg/dL (0.2-1.3); Total Protein 6.1 g/dL (6.3-8.2)
[2020-11-14] MEDS: INSULIN ASPART (NovoLOG) 100 UNIT/ML VIAL SQ SCH ×4 (06:21→23:41)
[2020-11-14] MEDS: methylPREDNISolone SOD SUCCI 125 MG/2 ML VIAL IV SCH ×4 (06:22→23:43)
[2020-11-14 06:23] LABS: LDH 2274 U/L (313-618)
[2020-11-14] MEDS: fentaNYL (PF) 1,000 MCG in SODIUM CHLORIDE 0.9% 80 ML IV SCH (06:24)
[2020-11-14] MEDS: SUCRALFATE 1 GM TAB PO SCH ×5 (07:07→20:03)
[2020-11-14] MEDS: ALBUTEROL HFA INHALER INHALATION PRN ×4 (07:16→20:45)
--- NOTE | 2020-11-14 07:41 | XR ---
EXAMINATION TYPE: XR chest 1V portable DATE OF EXAM: 11/14/2020 COMPARISON: 11/13/2020 HISTORY: Follow-up pneumonia TECHNIQUE: Single frontal view of the chest is obtained. FINDINGS: Endotracheal and NG tubes have been removed. Bilateral chest tubes are in place. Left subclavian cent ral venous line is unchanged in position. Persistent right apical pneumothorax unchanged. No sizable left-sided pneumothorax seen at this time. Diffuse mixed alveolar and interstitial infiltrates persist. IMPRESSION: 1. Stable diffuse bilateral infiltrates and small right apical pneumothorax.
[2020-11-14] MEDS ORDERED: POTASSIUM CHLORIDE 20 MEQ in WATER FOR INJECTION 1 100ML.BAG IVPB ONE (08:00)
--- NOTE | 2020-11-14 08:41 | P.PN ---
Subjective Progress Note Date: 11/14/20 39-year-old female patient is currently in the intensive care unit because of covid 19 related pneumonia with acute hypoxic respiratory failure. The patient presented to the hospital with worsening shortness of breath and fever and chills and congestion. She checked positive for covid 19 on 10/30/2020. The patient is also known to have previous history of GI bleeds, she has nonbleeding antral ulcers 2, she has history of migraine, fibromyalgia, chronic anxiety/depression and chronic back pain and irritable bowel syndrome. She has mild intermittent chronic bronchial asthma and she has been maintained on Advair. She has been in the intensive care unit for now. The patient after being admitted to the intensive care unit, she decompensated and she developed worsening in shortness of breath She has currently intubated on a mechanical ventilator. She was intubated on 11/06/2020 because of worsening respiratory status. While on a mechanical ventilator, the patient developed also a right- sided pneumothorax. Based on that, right-sided chest tube was inserted. For now, the patient a mechanical ventilator. She is sedated with propofol which is currently running at 60 mcg/kg per minute. The patient is paralyzed with Nimbex at 0.5/kg per minute.. She is on a mechanical ventilator on assist control mode at the rate of 24, FiO2 of 100% and PEEP of 10 with a tidal volume of 400. The IV fluids running at 75 mL an hour of normal saline. The patient is currently received Lovenox, Solu-Medrol, vitamin C, vitamin D3, and zinc, as well as TOCI. Chest x-ray is showing a right-sided chest tube with persistent pneumothorax on the right. The blood culture from 11/03/2020 showed staph aureus, MSSA and the patient is currently on IV Ancef 2 g, every 8 hours. The patient is receiving normal enteral feeding for now. The repeat chest x-ray from today shows a 50% pneumothorax on the right. There is a right-sided chest tube in place. There is a left subclavian triple-lumen catheter. The patient continues to have diffuse bilateral pulmonary infiltrates. Blood gases from today shows a pH of 7.37 with a pCO2 of 57 and pO2 of 168 and this was on FiO2 of 100%. Hemoglobin today is down to 6.2. No signs of any acute GI bleeding. The patient will be transfused with a unit of packed RBC. The peak airway pressures around 35 with a static air a pressure of 34 while being on a mechanical ventilator. On today's evaluation of 11/09/2020, the patient remains sedated with propofol and paralyzed with Nimbex. Propofol is running at 75 mcg/kg per minute and Nimbex is running at 2 mg/kg per minute. The patient is well sedated and she is well-appearing paralyzed and she is very symptoms with the mechanical ventilator. She remained on assist control mode at the rate of 24 with a tidal volume of 400 and FiO2 of 65% with a PEEP of 10. She did have a bout of desaturation in the middle of the night. Blood gas was done and this was probably an 100% and he showed a pH of 7.41 with a pCO2 of 58 and pO2 of 200. I repeated blood gases will be needed to reevaluate her oxygenation on a 65% FiO2. Chest x-ray from today shows a small tiny right apical pneumothorax. Otherwise the chest x-ray findings are stable. There is diffuse breath and pulmonary infiltrates. There is improvement in the right-sided pneumothorax less than 5%. Orotracheal tube is in a good location. Peak airway pressure is 33 on a mechanical ventilator. In terms of her pneumonia which is a Covid 19 pneumonia, the patient remains on IV Solu-Medrol 60 mg every 6 hours. She is also on Lovenox for DVT prophylaxis 40 mg subcu. The LDH from today is at 1240 now which is down, the CRP is down to 8.3. Renal function is stable. Creatinine is at 0.5. The d-dimer is high at 7.09 and probably her Lovenox dose needs to be adjusted. She was given a unit of packed RBC yesterday and the hemoglobin came up to 7.8. She is hemodynamically stable. She is on no pressors for now. As mentioned earlier, she has previous history of GI bleeds and nonbleeding antral ulcers in addition to migraine, fibromyalgia, chronic anxiety and depression and chronic back pain addition to asthma. The patient is currently on IV Protonix and she is feeding with vital high protein. She has a left-sided subclavian triple-lumen catheter in place. His evaluation of 11/10/2020, the patient remains sedated with propofol running at 75 mcg/kg per minute. Note that the patient was taken off Nimbex yesterday and that was successful. She was paralyzed for a few days post intubation and I was able to get it off this paralytics. Meanwhile, the patient had a right- sided pneumothorax and I repositioned and placed another chest tube on the right which was successfully expanded right lung although on today's chest x-ray there is a tiny pneumothorax in the right apex however there is a larger pneumothorax on the left which is in order of 10-15%. Meanwhile, I was able to lower the patient's PEEP and currently the patient is an assist-control mode at a tidal volume of 400, FiO2 of 60%, PEEP of 8 and respiratory rate of 24. The blood gases from today showed a pH of 7.52 with a pCO2 of 51 and pO2 of 69. Peak airway pressure on the mechanical ventilator is 27. As such, the patient will need a left-sided chest tube insertion and this will be done at the bedside today. In terms of her Covid 19 pneumonia, the patient remains on IV Solu- Medrol. The patient remains on Lovenox 30 mg subcutaneous for DVT prophylaxis twice a day.. The inflammatory markers from today showing an LDH level of 1338 which is higher and his CRP level of <5 and the patient d-dimer currently is elevated at 8.05. She is receiving enteral feeding for nutritional support. She is currently on vital high protein at the rate of 28 mL an hour. No signs of any GI bleeding. She is on IV Protonix. Her hemoglobin today is at 7.7. No other significant events overnight. She was given a brief sedation holiday today and she was able to arouse quickly and open up her eyes. The active issue for now as it development of a left-sided pneumothorax for which chest tube will be needed. The right-sided chest tube is in place and there is minimal amount of air leak and the patient has developed a small subcutaneous emphysema on the right. Output from the chest tube is in order of 45 mL over the past 24 hours. On 11/11/2020 I'm seeing the patient for a follow-up. As mentioned earlier, the patient is a case of Covid 19 related pneumonia with bilateral pneumothoraces any superinfection with MSSA as MSSA was cultured in the sputum, pleural fluid and in the blood. The patient also has bilateral chest tubes, right-sided chest tube was initially inserted and left-sided chest tube followed as the patient developed bilateral pneumothoraces. On today's evaluation, she is an assist- control mode with a rate of 24 with a tidal volume of 400 and FiO2 of 50% with a PEEP of 6. The blood gas shows a pH of 7.51 with a pCO2 of 46 and pO2 of 68. Ration continues to have some intermittent air leak in the right. No evidence of air leak on the left. Output from the chest tubes are minimal. The chest x- ray from today shows a limited pneumothorax on the left. Chest tubes are all in good location. The infiltrate on the right has improved especially the one in the periphery, and there is some persistent consolidation of the left lower lobe. Nevertheless, I was able to cut down the PEEP down to 6 with an FiO2 of 50% on this patient. Hemodynamically stable. She is on no pressors. She is on IV cefazolin. She is also on Solu-Medrol 60 mg every 6 hours. She is off paralytics. She is on enteral feeding for nutritional support through a orogastric tube. Adequate urine output. Fluid balance over the past 24 hours has been in the order of -2.9 L. She is on normal saline at the rate of 20 mL an hour. Inflammatory markers showed a LDH level of 1234 with a CRP level of less than 5. On the 2020 I'm seeing the patient for a follow-up. Events from yesterday was noted. I was trying to give the patient sedation holiday and taken off the propofol and the patient became quite agitated and restless and hypoxic and asynchronous with a mechanical ventilator. At that point, the weaning was slowed down and the patient was added on Precedex. This morning, she remains on propofol which is running at 50 50 mcg/kg per minute and she is also on Precedex 0.7 at 0.7 g. She seems to be quite comfortable and the same process will be attempted again today. On today's evaluation she is calm and comfortable. She remains on a mechanical ventilator. She is on assist-control mode at the rate of 24 with a tidal volume of 400 and the PEEP is at 6 with an FiO2 of 50%. Peak airway pressure is 27. Chest x-rays showing a tiny right apical pneumothorax. The right-sided chest tube is in place. There is right-sided subcutaneous emphysema. No pneumothorax on the left. The ET tube is sitting just above the ramy and it may need to be retracted slightly. OG tube is in a good location. The patient had a blood gases this morning that showed a pH of 7.49 with a pCO2 of 44 and pO2 of 69. The cultures as mentioned earlier was all positive for MSSA in the sputum and in the blood and in the pleural fluid. Note that there is no evidence of any air leak on the left-sided chest tube. On the right-sided chest tube, there was intermittent leak yesterday and has been present for today. She remains on IV cefazolin. She remains on steroids and she is receiving IV Solu Medrol 60 mg every 6 hours. She is on Lovenox 30 mg subcu twice a day. Rest of the blood work and inflammatory markers are still pending for now. She is being fed and she is receiving vital high protein at the rate of 28 mL an hour. Inflammatory markers from today shows an LDH of 1437 and his CRP is 6.4. 11/13/2020, the patient remains intubated. In terms of her pulmonary status, the patient has Covid 19 related pneumonia with secondary respiratory failure and bilateral pneumothoraces. She currently has chest tubes on both sides. No evidence of any air leak on today's chest tube evaluation. On today's evaluation, the chest x-ray showing no significant pneumothorax. Lungs are well expanded. There is diffuse but the port infiltrates related to Covid 19 related pneumonia. She is an assist-control mode at the rate of 26 with a tidal volume of 400 and FiO2 of 50% with a PEEP of 5. Note that I was trying to the blood gas showed a pH of 7.51 with a pCO2 of 43 and pO2 of 98. I was trying to wean her off the sedation and check some weaning parameters yesterday. The entire process failed and the patient became quite agitated. When the process of doing a slow wean of the propofol which is running at 40 mics this morning. She is also on Precedex at 0.7 g and fentanyl at 2 mcg/kg/h. For the most part, she was able to open up her eyes pH was able to follow some simple commands. I think it's going to be very hard to check some weaning parameters and assess readiness to wean on this patient by giving her a spontaneous breathing trial. When I and up extubating her if she is able to wake up appropriately running the risk of the intubation. Overall condition is stable. Hemodynamically stable. She was tolerating her enteral feeding for nutritional support. She has been consistently in a negative fluid balance. No signs of any fluid overload for now. In terms of her Covid 19 related pneumonia, she remains on IV steroids and she is on IV Solu-Medrol. She remains on Lovenox for DVT prophylaxis 30 mg subcu twice a day. He got d-dimer of 5.54 which is improving. Her rest of the inflammatory markers showed a declining LDH down to 1057 and a declining CRP which is less than 5. No pressors for now. She was receiving vital high protein at the rate of 28 mL an hour for enteral feeding and nutritional support. We are in the process of weaning this patient off the sedation again and assessing her mental status. I'm hopeful that she is going to stay nonagitated. I understand that she has chronic dependence on alcohol On 11/14/2020, the patient is extubated. We'll managed to extubate the patient yesterday and she is currently on 100% nonrebreather facemask. She is awake and alert and she is following commands and answering questions. She is off the Precedex. She is still on fentanyl which is running at 2 mcg/kg per minute. This is managed to control her pain. Note that the patient had bilateral pneumothoraces and she has bilateral chest tubes in place. The right-sided ch est tube is showing intermittent air leak and there is a tiny right apical pneumothorax. The left-sided chest tube has no air leak and output is minimal in the left lung is well expanded without any evidence of pneumothorax. Nevertheless, I suspect that the patient may have potentially superinfection. She has grown MSSA in his sputum and in the pleural fluid and in her blood. She is on IV cefazolin. Nevertheless, her LDH is on the rise and the chest x-ray showing some new bilateral pulmonary infiltration and the possibility of a superinfection with gram-negative is possible. As such, I need to broaden her antibiotic coverage. Meanwhile, she is resting comfortably in bed on 100% nonrebreather facemask pH is communicating. She remains on IV Solu-Medrol. Inflammatory markers from today show a rise in the LDH which is currently up to 2274 and the CRP is up to 21. He d-dimer currently is at 5.67. The white cell count is up to 19.1. Hemoglobin is at 8.9. She is still nothing by mouth for now. No signs of any alcohol withdrawal well. No agitation. No focal neurological deficit. She seems to be much more comfortable at this point in time. Objective - Vital Signs Vital signs: Vital Signs Temp 98.8 F 11/14/20 00:00 Pulse 88 11/14/20 07:00 Resp 23 11/14/20 07:00 BP 121/76 11/14/20 07:00 Pulse Ox 86 L 11/14/20 07:16 Intake & Output 11/13/20 11/14/20 11/14/20 18:59 06:59 18:59 Intake Total 626.575 700.97 23 Output Total 2970 1350 125 Balance -2343.425 -649.03 -102 Intake: IV 266 253 23 0.9 NS flush 226 33 3 Sodium Chloride 0.9% 1, 40 220 20 000 ml @ 20 mls/hr IV . Q24H [facility] Rx#:[id number] Intake, IV Titration 310.575 197.97 Amount Dexmedetomidine/0.9% NaCl 71.936 (Pmx) 400 mcg In Empty Bag 1 bag @ Titrate IV . Q0M [facility] Rx#:[id number] ceFAZolin 2 gm In Sodium 100 Chloride 0.9% 50 ml @ 100 mls/hr IVPB Q8HR [facility] Rx# :[id number] fentaNYL (PF) 1,000 mcg 100 197.97 In Sodium Chloride 0.9% 80 ml @ Per Protocol IV . Q0M [facility] Rx#:[id number] propofoL 1,000 mg In 38.639 Empty Bag 1 bag @ Titrate IV .Q0M [facility] Rx#: [id number] Oral 50 Tube Feeding 250 Output: Chest Tube Drainage 120 75 Chest Tube Right 20 75 left chest tube 100 Urine 2850 1275 125 Other: Voiding Method Indwelling Catheter Indwelling Catheter ABP, PAP, CO, CI - Last Documented Arterial Blood Pressure 119/75 - Exam The patient is currently extubated on 100% nonrebreather facemask HEENT examination is grossly unremarkable. Mucous membranes are moist. Neck supple. Full range of motion. No adenopathy thyromegaly or neck vein distention. Cardiovascular examination reveals regular rhythm rate. S1-S2 normal. No S3 or S4. No discernible murmur noted. Heart sounds are distant. Heart rate is 94 bpm. Lungs reveal bilateral coarse rhonchi. No wheezes or crackles. Breath sounds are essentially equal bilaterally. A right-sided chest tube is noted. I noted that there is no evidence of any air leak and the patient has diminished breath sound the right compared to left. Crackles are present bilaterally, and the patient has a small subcutaneous emphysema along the right lateral chest area. The patient also has a left-sided chest tube. Output from the chest tubes have been minimal and there is intermittent air leak on the right. Sounds are equal and symmetrical. Scattered rhonchi are still present. Abdominal exam revealed normal bowel sounds. The abdomen was soft, non-tender, and without masses, organomegaly, or appreciable enlargement of the abdominal aorta. Extremities are intact. No cyanosis clubbing or edema. Skin is without rash or lesion. Neurologic , Neurologically, the patient is awake and alert and the patient does not have any focal neurological deficit. Cranial nerves are essentially intact. The patient has global motor weakness in all 4 extremities , awake and oriented and she is following commands. - Labs CBC & Chem 7: 11/14/20 04:24 11/14/20 04:24 Labs: Abnormal Lab Results - Last 24 Hours (Table) 11/13/20 11/13/20 11/14/20 Range/Units 11:36 18:30 04:24 WBC 19.1 H (3.8-10.6) k/uL RBC 3.13 L (3.80-5.40) m/uL Hgb 8.9 L D (11.4-16.0) gm/dL Hct 26.9 L (34.0-46.0) % RDW 18.1 H (11.5-15.5) % Neutrophils # 18.3 H (1.3-7.7) k/uL Lymphocytes # 0.2 L (1.0-4.8) k/uL D-Dimer (<0.60) mg/L FEU Sodium (137-145) mmol/L Chloride (98-107) mmol/L Carbon Dioxide (22-30) mmol/L Creatinine (0.52-1.04) mg/dL POC Glucose (mg/dL) 118 H 101 H (75-99) mg/dL AST (14-36) U/L Alkaline Phosphatase (38-126) U/L Lactate Dehydrogenase (313-618) U/L C-Reactive Protein (<10.0) mg/L Total Protein (6.3-8.2) g/dL 11/14/20 11/14/20 Range/Units 04:24 04:24 WBC (3.8-10.6) k/uL RBC (3.80-5.40) m/uL Hgb (11.4-16.0) gm/dL Hct (34.0-46.0) % RDW (11.5-15.5) % Neutrophils # (1.3-7.7) k/uL Lymphocytes # (1.0-4.8) k/uL D-Dimer 5.67 H (<0.60) mg/L FEU Sodium 134 L (137-145) mmol/L Chloride 94 L (98-107) mmol/L Carbon Dioxide 31 H (22-30) mmol/L Creatinine 0.26 L (0.52-1.04) mg/dL POC Glucose (mg/dL) (75-99) mg/dL AST 49 H (14-36) U/L Alkaline Phosphatase 149 H (38-126) U/L Lactate Dehydrogenase 2274 H (313-618) U/L C-Reactive Protein 29.4 H (<10.0) mg/L Total Protein 6.1 L (6.3-8.2) g/dL Microbiology - Last 24 Hours (Table) 11/08/20 18:50 Blood Culture - Preliminary Blood No Growth after 120 hours Assessment and Plan Plan: 1 Acute hypoxemic respiratory failure secondary to acute COVID 19 pneumonia. After being intubated for at least a week, the patient was extubated yesterday to 100% nonrebreather facemask. She did fine and she is currently pulse oxing around 90% while being on 100% nonrebreather facemask. She still has bilateral chest tubes. The left-sided chest tube will be removed today as there is no evidence of air leak in the left lung is well expanded. There is intermittent air leak on the right and there is a tiny apical pneumothorax on the right and the right-sided chest tube will be kept in place. Meanwhile, I need to broaden the antibiotic coverage. The patient has grown MSSA in her pleural fluid and in the sputum and in the blood. She was on IV cefazolin. I suspect a superimposed gram-negative infection knowing that her chest x-ray findings have been worse and the patient has developed some worsening infiltration of the lungs along with some subcutaneous emphysema on the right. White cell count is on the rise. LDH is on the rise. She remains on IV Solu-Medrol for Covid 19 related pneumonia. Preferred a broader antibiotic coverage. I'm going to put this patient IV cefepime. Meanwhile, patient is on IV Solu-Medrol. The patient also received tocilizumab. No Remdesivir 2 Acute exacerbation of mild intermittent chronic bronchial asthma secondary to above. 3 Anemia in a patient with a known history of nonbleeding ulcers with previous EGD and GI bleed. The patient got transfused with a packed RBC units and hemoglobin is improved and is stable for now and there is no signs of GI bleeding and the patient is currently on a combination of Protonix and Carafate. The hemoglobin is 8.9 today without evidence of any acute GI bleeding 4 bilateral pneumothoraces requiring bilateral chest tube insertion with adequate expansion, no evidence of air leak on today's evaluation on the left, intermittent air leak on the right 5 Covid 19 related pneumonia with bilateral pulmonary infiltrates currently on IV Solu-Medrol 6 History of immunodeficiency disorder. 7 Irritable bowel syndrome. 8 History of migraine. 9 Fibromyalgia. 10 History of chronic back pain. 11 MSSA bacteremia currently on IV Ancef 2 g every 8 hours on the patient also had staph aureus and the pleural fluid which obviously raises the concern for a pneumonia with parapneumonic effusion and pleural space infection. Consider staphylococcal pneumonia accordingly. 12 History of chronic tobacco dependence, vaping., 13 acute on top of chronic anemia 14 history of alcoholism 15 history of chronic pain dependence 16 history of chronic anxiety/depression Plan: Wean down the fentanyl slowly and use dilaudid for pain control 1 mg every 3 hours on an as-needed basis Remove the left-sided chest tube Keep the right-sided chest tubes in place Continue IV Solu-Medrol Continue monitoring the inflammatory markers. The markers are all improving with exception of d-dimer which is high and the patient will be placed on Lovenox 30 mg subcu every 12 hours Stop IV Ancef and replace it with IV cefepime 2 g every 12 hours Check a pro-calcitonin level Continue oral Protonix 40 mg twice a day Condition is still critical despite the significant amount of progress that the patient has done over the past 24 hours. She has been extubated. We are still supporting her care here in the intensive care unit. We'll continue to follow make further recommendations based on her progress. Critically care evaluation that was done and more than 30 minutes Time with Patient: Greater than 30
[2020-11-14 09:17] LABS: Ferritin 68.9 ng/mL (10.0-291.0)
[2020-11-14] MEDS: PANTOPRAZOLE 40 MG/10 ML VIAL IVP SCH ×2 (09:23→20:03)
[2020-11-14] MEDS: CHOLECALCIFEROL 25 MCG (1000 IU) TABLET PO SCH (09:24)
[2020-11-14] MEDS: ZINC SULFATE 220 MG CAP PO SCH (09:24)
[2020-11-14] MEDS: ENOXAPARIN 30 MG/0.3 ML SYRINGE SQ SCH ×2 (09:24→20:03)
[2020-11-14] MEDS: ASCORBIC ACID 500 MG TAB PO SCH (09:25)
[2020-11-14] MEDS: buPROPion XL 150 MG TAB.ER.24H PO SCH (09:25)
[2020-11-14] MEDS: DULoxetine HCL 60 MG CAPSULE.DR PO SCH (09:26)
[2020-11-14] MEDS: ARIPiprazole 5 MG TAB PO SCH (09:26)
[2020-11-14] MEDS: CEFEPIME 2 GM in SODIUM CHLORIDE 0.9% 100 ML IVPB SCH ×2 (10:13→17:10)
--- NOTE | 2020-11-14 10:21 | P.PN ---
Subjective Progress Note Date: 11/14/20 HISTORY OF PRESENT ILLNESS This is a 39-year-old female patient of Dr. Gonzalez with past medical history of GI bleed in 2008, July 2020 was admitted for GI bleed secondary to 2 no nbleeding antral ulcers requiring transfusion 2 units packed RBCs, tobacco use, alcohol abuse, recurrent depression, generalized anxiety disorder. Patient was diagnosed with COVID-19 on October 30. She complains of increasing shortness of breath, cough, congestion, fever and chills and hoarseness. She continued to worsen significantly over the past 2 days. She also complains of bloody sputum production. Patient came into [facility] emergency center for evaluation. Temperature 98.3, heart rate 102, respiratory rate 40, blood pressure 95/64, pulse ox 71%. EKG was a sinus rhythm no acute ST elevation. W BC 9.4, hemoglobin 8.6, platelet count 284. Sodium 135, potassium 2.8, chloride 102, CO2 21, BUN 19 creatinine 0.88. Blood sugar 92. AST 71, ALT 24, alkaline phosphatase 264 [place] phosphatase 264, LDH 2067, CA reactive protein 320.8. Lactic acid 3.1. CT angiogram of the chest reveals no evidence pulmonary embolism. Severe pulmonary interstitial and airspace edema. Chest x-ray reveals pulmonary interstitial pneumonia worse than recent exam. Some airspace component. Patient is status post 2 L of IV fluids, potassium replacement, Dilaudid, patient seen by pulmonary medicine and started on Tocilizumab. 11/05: Patient remains in the intensive care unit. She is a nonrebreather mask and AorVp and can maintain a pulse ox in the 90s. If she removes these, patient follows less than 70s. She is very anxious today and has many questions. She does have large number of psychiatric medications which have been resumed. We will also add and Xanax twice daily as needed. She has been afebrile, heart rate 89, blood pressure 116/79, pulse ox 95%. Repeat blood work reveals WBC 11.8, hemoglobin 7.7, platelet count 243. D-dimer 1.95. Sodium 135, electrolyt es otherwise normal, BUN 18 creatinine 0.45. Blood sugars running between 117- 129. AST 48, ALT 18, alkaline phosphatase 218, LDH 2243. C-reactive protein 254. Patient had 2 blood cultures, one is showing no growth at 24 hours and the second obtained at 2240 showing gram-positive cocci. She was started on vancomycin. 11/06: Patient remains in ICU, still on a BiPAP treatments,, continuously, terri barber did not have any meals for the past 72 hours secondary to hypoxemia and air hunger without the reading device. Patient has not slept well at all, cytokinin markers are elevated, blood culture growing Staphylococcus from specimen collected November 03 are pending sensitivity. Patient currently is on IV cefazolin, IV vancomycin, followed by infectious disease. So Medrol 60 mg every 6 hours, most of her oral medications cannot be complied upon secondary to hypoxemia event removed briefly. Hemoglobin at 7.2, blood gas shows pCO2 54, PaO2 of 67, 7.39 pH. Double basic count of under 10, creatinine of 0.5, LDH 1845, alkaline phosphatase 194. Albumin low at 2.6, blood pressure stable,Heart rate of 114, blood pressure of 135/90. Pulse ox 85-86 at BiPAP treatments. 11/07 yesterday afternoon, patient required placement of right chest tube secondary to spontaneous pneumothorax placed by the ER doctor,, patient has worsening respiratory status, and was intubated by the ER physician currently with tidal volume of 40, PEEP of 10, assist control rate of 24, FiO2 of 80%. There is residual small pneumothorax right side, there is a left subclavian triple-lumen placed by Dr. Harrington today. There is consult for nutrition, has an OG tube, for which feedings would be started once completed. Chest x-ray shows bilateral diffuse infiltrates, creatinine of 0.4, LDH of 1630, CRP of 36 platelet count 132, hemoglobin 7.3 11/08: Patient remains in the intensive care unit, intubated and on mechanical ventilation with FiO2 100%, tidal volume 400 and PEEP of 10. Patient is currently on sedation. Repeat chest x-ray today reveals increase in size of right-sided pneumothorax since previous measuring of 3.5 cm today compared to 1.2 cm yesterday. Severe interstitial infiltrates throughout the lungs bilaterally slightly increased from previous. A second right-sided chest tube was placed today by Dr. Davison. Repeat blood work reveals WBC 5.2, hemoglobin 6.2, platelet count 133. Sodium 141, potassium 3.5, chloride 107, CO2 35, BUN 24 and creatinine 0.46. Blood sugar 132. Alkaline phosphatase 154. D-dimer 6.35. Patient is ordered for transfusion 1 unit packed RBCs today. Blood culture is MSSA and patient is on Ancef 2 g every 8 hours. Pleural fluid culture in progress. Patient has been afebrile, heart rate low 100s, respiratory rate 27, blood pressure 135/93, pulse ox 96%. Patient will be started on tube feedings today. 11/09: She remains intubated and on mechanical ventilation. She is on both Nimbex and Propofol. She remains intubated and on mechanical ventilation with tidal volume 400, FiO2 65 and PEEP of 10. Repeat chest x-ray reveals improving right apical pneumothorax measuring less than 5%. Stable bilateral diffuse infiltrates. WBC 8, hemoglobin 7.8 status post 1 unit of packed RBCs. Platelet count 123. Sodium 141, potassium 3.9, chloride 105, CO2 37. BUN 28 creatinine 0.51. Blood sugar 142. Inflammatory markers are improving with d-dimer 7.09, fibrinogen 159, LDH 1249, C-reactive protein 8.3, CK 23. Patient is on Kefzol for antibiotics. She remains with right-sided chest tube. She has been a febrile, heart rate 80, blood pressure 116/78, pulse ox 92%. Patient is not requiring vasopressors. 11/10: Initial chest x-ray this morning revealed interval development of 50% left-sided pneumothorax. Patient is status post chest tube placement on the left by Dr. Davison. Repeat chest x-ray revealed bilateral apical pneumothoraces measuring less than 5. Stable on the right improved on the left. Diffuse bilateral pulmonary parenchymal disease stable. Patient remains intubated and on mechanical ventilation. She is now off Nimbex. Tidal volume 500, FiO2 60% and PEEP of 8. Patient is on tube feedings. Repeat blood work reveals WBC 7.5, hemoglobin 7.7, platelet count 126. Sodium 139, potassium 3.3 and was replaced, chloride 98, CO2 38, BUN 28 creatinine 0.41. Cultures are running between 134-150. D-dimer 0.05, LDH 1338, CK 65, C-reactive protein less than 5. Sputum culture is in progress. Blood cultures no growth at 24 hours. All previous blood cultures are showing no growth. IgG is low at 471. Request a nurse contact Dr. Davison about IVIG infusion. 11/11: She remains in the intensive care unit, intubated and on mechanical ventilation with tidal volume 400, FiO2 50% and PEEP of 6. Patient now has bilateral chest tubes in place for bilateral pneumothoraces with right-sided air leak. Weaning will be attempted today. She has been afebrile, heart rate 95, blood pressure 148/81, pulse ox 96%. Repeat blood work reveals W BC 5.8, hemoglobin 10.3, platelet count 101. D-dimer 6.03. C-reactive protein less than 5, CK 44. LDH 1234. Sodium 133, potassium 3.8, chloride 94, CO2 38, BUN 22 and creatinine 0.32. Blood culture, sputum culture, pleural fluid culture also positive for MSSA. Patient is covered with Kefzol. 11/12: Patient remains in intensive care unit, intubated and on mechanical ventilation with tidal volume 400, FiO2 50% and PEEP of 6. She failed weaning trial yesterday and she was desatting and back on propofol as well as Precedex and fentanyl drips were added. Patient has been afebrile, heart rate 86, blood pressure 134/68, pulse ox 90%, respiratory rate 24. Repeat blood work reveals WBC 17.3, hemoglobin 9, platelets 164. Sodium 134, potassium 3.6, chloride 97, CO2 30, BUN 19 and creatinine 0.33. Blood sugars running between 127 and 141. Alkaline phosphatase 149. LDH 1437. C-reactive protein 6.4. Repeat chest x-ray reveals slight interval increase in the right-sided pneumothorax compared to prior exam. Correlate for pneumonia, edema or ARDS. She remains with bilateral chest tubes in place. Prognosis remains guarded. 11/13: Patient remains in the intensive care unit. She has been successfully extubated this morning and is on 15 L high flow nasal cannula. She has been afebrile, heart rate in the 80s, blood pressure 109/75. Repeat blood work reveals W BC 10.7, hemoglobin 7.3, platelet count 116. D-dimer 5.54. Sodium 134, potassium 4.0, chloride 97, CO2 33, BUN 20, creatinine 0.29. Blood sugars running between 119 and 143. LDH 1057, CK 22, C-reactive protein less than 5. Chest x-ray reveals small right apical pneumothorax slightly smaller. Right chest tube. No change in patchy airspace opacities in the lung right greater than left. Left-sided chest tube unchanged in position and resolution of left small apical pneumothorax. The patient's mental status is not back to baseline. She is somewhat confused. 11/14: Patient remains in the intensive care unit. PO 80s on NRB. Patient encouraged to keep mask on face. She has been afebrile, HR 80s - 90s, RR 28, BP 129/95. Repeat blood work reveals WBC 19.1, HGB 8.9, PLT 152. Sodium 134, K 3.7, Chloride 94, CO2 31. BUN 17, Creat 0.26. Ferritin 68.9. AST 49, ALT 17, AP149. LDH 2274. CK 61, CRP 29.4. CXR reveals stable diffuse infiltrates and small right apical pheumothorax. REVIEW OF SYSTEMS Constitutional: No fever, no chills, no night sweats. No weight change. Reports weakness, Reports fatigue. No daytime sleepiness. EENT: No headache. No blurred vision or double vision, no loss of vision. No loss of Hearing, no ringing in the ears, no dizziness. No nasal drainage or congestion. No epistaxis. No sore throat. Lungs: Reports shortness of breath, Reports cough, no sputum production. Reports wheezing. Cardiovascular: No chest pain, no lower extremity edema. No palpitations. No paroxysmal nocturnal dyspnea. No orthopnea. No lightheadedness or dizziness. No syncopal episodes. Abdominal: No abdominal pain. No nausea, vomiting. No diarrhea. No constipation. No bloody or tarry stools.. No loss of appetite. Genitourinary: No dysuria, increased frequency, urgency. No urinary retention. Musculoskeletal: No myalgias. No muscle weakness, no gait dysfunction, no frequ ent falls. No back pain. No neck pain. Integumentary: No wounds, no lesions. No rash or pruritus. No unusual bruising. Neurologic: No aphasia. No facial droop. No change in mentation. No head injury. No headache. No paralysis. No paresthesia. Psychiatric: No depression. No anxiety. Endocrine: No abnormal blood sugars. PHYSICAL EXAMINATION Gen: This is a 39-year-old female. Patient is resting in the ICU bed and appears to be in mild respiratory distress with 15 L high flow plus nonrebreather. HEENT: Head is atraumatic, normocephalic. Pupils equal, round. Sclerae is anicteric. NECK: Supple. No JVD. No lymphadenopathy. No thyromegaly. Oral mucous membranes are dry. LUNGS: Scattered rhonchi, crackles in the bases. No intercostal retractions. HEART: Regular rate and rhythm. No murmur. ABDOMEN: Soft. Bowel sounds are present. No masses. No tenderness. EXTREMITIES: No pedal edema. No calf tenderness. Dorsalis pedis palpable bilaterally. NEUROLOGICAL: Patient is awake, alert and oriented x3. Cranial nerves 2 through 12 are grossly intact. ASSESSMENT AND PLAN 1. Acute hypoxic respiratory failure secondary to acute Covid 19 pneumonia, MSSA pneumonia, POA, successfully extubated . Consult with pulmonary medicine appreciated. Status post Tocilizumab. Patient intubated on November 06. Continue Lovenox 30 mg subcu twice daily, Solu-Medrol 60 mg IV push every 6 hours, zinc and vitamin supplements. Continue cefepime IV piggyback every 8 hours. 2. Right sided pneumothorax requiring chest tube 11/06 and 11/08. 3. Acute exacerbation of mild intermittent bronchial asthma. Continue Ventolin inhaler 4 times daily as needed. 4. Left-sided pneumothorax requiring chest tube placed on 11/10. 5. Primary immunodeficiency. Low IgG. Possible IVIG infusion of okay with Dr. Davison. 6. Chronic anemia most likely due to history of bleeding ulcers and alcohol abuse. 7. Tobacco use and dependence including taping. 8. Daily alcohol use/abuse. Patient apparently has had no alcohol intake for 7 days. Monitor closely for DTs 9. Recurrent depression and generalized anxiety disorder. Continue Abilify 7.5 mg daily, Wellbutrin 150 mg daily, BuSpar 10 mg as needed for anxiety, Cymbalta 60 mg daily. 10. Acute anemia secondary to sepsis without blood loss. Transfuse 1 unit of packed RBCs. 11. Migraine headaches. Continue Fioricet as needed. Hold Inderal 60 mg daily. 12. Sepsis with MSSA bacteremia, POA. Continue Kafzol. 13. Moderate protein calorie malnutrition. Patient maintain on tube feedings 14. Gastroesophageal reflux disease with history of bleeding ulcers. Continue Protonix 40 mg daily and Carafate 1 g 4 times daily. 15. DVT prophylaxis. Lovenox. DISCHARGE PLAN To be determined. Impression and plan of care have been directed as dictated by the signing physician. Isabel Samayoa nurse practitioner acting as scribe for signing physi jeancarlos. Objective - Vital Signs Vital signs: Vital Signs Temp 98.8 F 11/14/20 00:00 Pulse 94 11/14/20 10:00 Resp 28 H 11/14/20 10:00 BP 129/95 11/14/20 10:00 Pulse Ox 94 L 11/14/20 10:00 Intake & Output 11/13/20 11/14/20 11/14/20 18:59 06:59 18:59 Intake Total 626.575 700.97 69 Output Total 2970 1350 375 Balance -2343.425 -649.03 -306 Intake: IV 266 253 69 0.9 NS flush 226 33 9 Sodium Chloride 0.9% 1, 40 220 60 000 ml @ 20 mls/hr IV . Q24H [facility] Rx#:[id number] Intake, IV Titration 310.575 197.97 Amount Dexmedetomidine/0.9% NaCl 71.936 (Pmx) 400 mcg In Empty Bag 1 bag @ Titrate IV . Q0M [facility] Rx#:[id number] ceFAZolin 2 gm In Sodium 100 Chloride 0.9% 50 ml @ 100 mls/hr IVPB Q8HR [facility] Rx# :[id number] fentaNYL (PF) 1,000 mcg 100 197.97 In Sodium Chloride 0.9% 80 ml @ Per Protocol IV . Q0M [facility]ERRON Rx#:[id number] propofoL 1,000 mg In 38.639 Empty Bag 1 bag @ Titrate IV .Q0M [facility]ERRON Rx#: [id number] Oral 50 Tube Feeding 250 Output: Chest Tube Drainage 120 75 Chest Tube Right 20 75 left chest tube 100 Urine 2850 1275 375 Other: Voiding Method Indwelling Catheter Indwelling Catheter ABP, PAP, CO, CI - Last Documented Arterial Blood Pressure 119/75 - Labs CBC & Chem 7: 11/14/20 04:24 11/14/20 04:24 Labs: Abnormal Lab Results - Last 24 Hours (Table) 11/13/20 11/13/20 11/14/20 Range/Units 11:36 18:30 04:24 WBC 19.1 H (3.8-10.6) k/uL RBC 3.13 L (3.80-5.40) m/uL Hgb 8.9 L D (11.4-16.0) gm/dL Hct 26.9 L (34.0-46.0) % RDW 18.1 H (11.5-15.5) % Neutrophils # 18.3 H (1.3-7.7) k/uL Lymphocytes # 0.2 L (1.0-4.8) k/uL D-Dimer (<0.60) mg/L FEU Sodium (137-145) mmol/L Chloride (98-107) mmol/L Carbon Dioxide (22-30) mmol/L Creatinine (0.52-1.04) mg/dL POC Glucose (mg/dL) 118 H 101 H (75-99) mg/dL AST (14-36) U/L Alkaline Phosphatase (38-126) U/L Lactate Dehydrogenase (313-618) U/L C-Reactive Protein (<10.0) mg/L Total Protein (6.3-8.2) g/dL 11/14/20 11/14/20 Range/Units 04:24 04:24 WBC (3.8-10.6) k/uL RBC (3.80-5.40) m/uL Hgb (11.4-16.0) gm/dL Hct (34.0-46.0) % RDW (11.5-15.5) % Neutrophils # (1.3-7.7) k/uL Lymphocytes # (1.0-4.8) k/uL D-Dimer 5.67 H (<0.60) mg/L FEU Sodium 134 L (137-145) mmol/L Chloride 94 L (98-107) mmol/L Carbon Dioxide 31 H (22-30) mmol/L Creatinine 0.26 L (0.52-1.04) mg/dL POC Glucose (mg/dL) (75-99) mg/dL AST 49 H (14-36) U/L Alkaline Phosphatase 149 H (38-126) U/L Lactate Dehydrogenase 2274 H (313-618) U/L C-Reactive Protein 29.4 H (<10.0) mg/L Total Protein 6.1 L (6.3-8.2) g/dL Microbiology - Last 24 Hours (Table) 11/08/20 18:50 Blood Culture - Preliminary Blood No Growth after 120 hours
[2020-11-14 11:49] LABS: Glucose,Whole Blood 100 mg/dL (75-99)
[2020-11-14] MEDS ORDERED: HALOPERIDOL LACTATE 5 MG/ML 1 ML VIAL IVP PRN (12:12)
[2020-11-14] MEDS: HYDROmorphone 1 MG/ML 1 ML SYRINGE IVP PRN ×3 (13:34→21:41)
[2020-11-14 16:55] LABS: Glucose,Whole Blood 109 mg/dL (75-99)
[2020-11-14] MEDS: SODIUM CHLORIDE 0.9% 1,000 ML IV SCH (18:03)
[2020-11-14] MEDS: MELATONIN 3 MG TABLET PO SCH (20:03)
[2020-11-14 23:41] LABS: Glucose,Whole Blood 110 mg/dL (75-99)
[2020-11-15] MEDS: CEFEPIME 2 GM in SODIUM CHLORIDE 0.9% 100 ML IVPB SCH ×3 (01:01→17:12)
[2020-11-15] MEDS: HYDROmorphone 1 MG/ML 1 ML SYRINGE IVP PRN ×8 (01:02→23:44)
[2020-11-15 04:35] LABS: Anisocytosis Slight; Basophils % (A) 0 %; Eosinophils % (A) 0 %; HCT 27.5 % (34.0-46.0); HGB 8.8 gm/dL (11.4-16.0); Hypochromasia Moderate; Lymphocytes # (A) 0.2 k/uL (1.0-4.8); Lymphocytes % (A) 2 %; MCH 27.9 pg (25.0-35.0); MCHC 32.1 g/dL (31.0-37.0); Mean Platelet Volume 9.8; Monocytes # (A) 0.4 k/uL (0-1.0); Monocytes % (A) 3 %; Neutrophils # (A) 13.3 k/uL (1.3-7.7); Neutrophils % (A) 95 %; Platelet Count 171 k/uL (150-450); Poikilocytosis Slight; RBC 3.16 m/uL (3.80-5.40); RDW 17.9 % (11.5-15.5)
[2020-11-15 04:49] LABS: ALT 15 U/L (4-34); AST 26 U/L (14-36); African American GFR (CKD) >90 (>60 ml/min/1.73 sqM); Albumin 3.6 g/dL (3.5-5.0); Alkaline Phosphatase 128 U/L (38-126); Anion Gap 5 mmol/L; Blood Urea Nitrogen 25 mg/dL (7-17); C Reactive Protein 21.8 mg/L (<10.0); Calcium 9.3 mg/dL (8.4-10.2); Carbon Dioxide 33 mmol/L (22-30); Chloride 96 mmol/L (98-107); Creatine Kinase 49 U/L (30-135); Glucose 107 mg/dL (74-99); LDH 1634 U/L (313-618); Non-African American GFR(CKD) >90 (>60 ml/min/1.73 sqM); Potassium 4.3 mmol/L (3.5-5.1); Sodium 134 mmol/L (137-145); Total Bilirubin 0.7 mg/dL (0.2-1.3); Total Protein 6.1 g/dL (6.3-8.2)
[2020-11-15] MEDS: methylPREDNISolone SOD SUCCI 125 MG/2 ML VIAL IV SCH ×3 (05:41→17:11)
[2020-11-15] MEDS: INSULIN ASPART (NovoLOG) 100 UNIT/ML VIAL SQ SCH ×4 (05:49→23:57)
[2020-11-15 05:50] LABS: Glucose,Whole Blood 120 mg/dL (75-99)
[2020-11-15] MEDS: ALBUTEROL HFA INHALER INHALATION PRN ×4 (07:19→20:12)
--- NOTE | 2020-11-15 08:26 | XR ---
EXAMINATION TYPE: XR chest 1V portable DATE OF EXAM: 11/15/2020 COMPARISON: Chest x-ray 11/14/2020 HISTORY: Covid pneumonia, chest tube TECHNIQUE: Single frontal view of the chest is obtained. FINDINGS: Right-sided chest tube is in place. There is a right apical pneumothorax similar to prior exam. Bilateral airspace disease is again seen. Left subclavian central venous catheter shows the tip in the right atrium. Subcutaneous emphysema is present. No sizable effusion evident. Cardiac mediast inal silhouette is similar. IMPRESSION: Findings are similar to prior exam.
[2020-11-15] MEDS: SUCRALFATE 1 GM TAB PO SCH ×4 (09:01→20:00)
[2020-11-15] MEDS: PANTOPRAZOLE 40 MG/10 ML VIAL IVP SCH ×2 (09:02→20:00)
[2020-11-15] MEDS: CHOLECALCIFEROL 25 MCG (1000 IU) TABLET PO SCH (09:02)
[2020-11-15] MEDS: ENOXAPARIN 30 MG/0.3 ML SYRINGE SQ SCH ×2 (09:02→20:00)
[2020-11-15] MEDS: ZINC SULFATE 220 MG CAP PO SCH (09:03)
[2020-11-15] MEDS: DULoxetine HCL 60 MG CAPSULE.DR PO SCH (09:03)
[2020-11-15] MEDS: ASCORBIC ACID 500 MG TAB PO SCH (09:03)
[2020-11-15] MEDS: buPROPion XL 150 MG TAB.ER.24H PO SCH (09:08)
[2020-11-15] MEDS: ARIPiprazole 5 MG TAB PO SCH (09:08)
--- NOTE | 2020-11-15 10:51 | P.PN ---
Subjective Progress Note Date: 11/15/20 HISTORY OF PRESENT ILLNESS This is a 39-year-old female patient of Dr. Gonzalez with past medical history of GI bleed in 2008, July 2020 was admitted for GI bleed secondary to 2 no nbleeding antral ulcers requiring transfusion 2 units packed RBCs, tobacco use, alcohol abuse, recurrent depression, generalized anxiety disorder. Patient was diagnosed with COVID-19 on October 30. She complains of increasing shortness of breath, cough, congestion, fever and chills and hoarseness. She continued to worsen significantly over the past 2 days. She also complains of bloody sputum production. Patient came into [facility] emergency center for evaluation. Temperature 98.3, heart rate 102, respiratory rate 40, blood pressure 95/64, pulse ox 71%. EKG was a sinus rhythm no acute ST elevation. W BC 9.4, hemoglobin 8.6, platelet count 284. Sodium 135, potassium 2.8, chloride 102, CO2 21, BUN 19 creatinine 0.88. Blood sugar 92. AST 71, ALT 24, alkaline phosphatase 264 [place] phosphatase 264, LDH 2067, CA reactive protein 320.8. Lactic acid 3.1. CT angiogram of the chest reveals no evidence pulmonary embolism. Severe pulmonary interstitial and airspace edema. Chest x-ray reveals pulmonary interstitial pneumonia worse than recent exam. Some airspace component. Patient is status post 2 L of IV fluids, potassium replacement, Dilaudid, patient seen by pulmonary medicine and started on Tocilizumab. 11/05: Patient remains in the intensive care unit. She is a nonrebreather mask and AorVp and can maintain a pulse ox in the 90s. If she removes these, patient follows less than 70s. She is very anxious today and has many questions. She does have large number of psychiatric medications which have been resumed. We will also add and Xanax twice daily as needed. She has been afebrile, heart rate 89, blood pressure 116/79, pulse ox 95%. Repeat blood work reveals WBC 11.8, hemoglobin 7.7, platelet count 243. D-dimer 1.95. Sodium 135, electrolyt es otherwise normal, BUN 18 creatinine 0.45. Blood sugars running between 117- 129. AST 48, ALT 18, alkaline phosphatase 218, LDH 2243. C-reactive protein 254. Patient had 2 blood cultures, one is showing no growth at 24 hours and the second obtained at 2240 showing gram-positive cocci. She was started on vancomycin. 11/06: Patient remains in ICU, still on a BiPAP treatments,, continuously, terri barber did not have any meals for the past 72 hours secondary to hypoxemia and air hunger without the reading device. Patient has not slept well at all, cytokinin markers are elevated, blood culture growing Staphylococcus from specimen collected November 03 are pending sensitivity. Patient currently is on IV cefazolin, IV vancomycin, followed by infectious disease. So Medrol 60 mg every 6 hours, most of her oral medications cannot be complied upon secondary to hypoxemia event removed briefly. Hemoglobin at 7.2, blood gas shows pCO2 54, PaO2 of 67, 7.39 pH. Double basic count of under 10, creatinine of 0.5, LDH 1845, alkaline phosphatase 194. Albumin low at 2.6, blood pressure stable,Heart rate of 114, blood pressure of 135/90. Pulse ox 85-86 at BiPAP treatments. 11/07 yesterday afternoon, patient required placement of right chest tube secondary to spontaneous pneumothorax placed by the ER doctor,, patient has worsening respiratory status, and was intubated by the ER physician currently with tidal volume of 40, PEEP of 10, assist control rate of 24, FiO2 of 80%. There is residual small pneumothorax right side, there is a left subclavian triple-lumen placed by Dr. Harrington today. There is consult for nutrition, has an OG tube, for which feedings would be started once completed. Chest x-ray shows bilateral diffuse infiltrates, creatinine of 0.4, LDH of 1630, CRP of 36 platelet count 132, hemoglobin 7.3 11/08: Patient remains in the intensive care unit, intubated and on mechanical ventilation with FiO2 100%, tidal volume 400 and PEEP of 10. Patient is currently on sedation. Repeat chest x-ray today reveals increase in size of right-sided pneumothorax since previous measuring of 3.5 cm today compared to 1.2 cm yesterday. Severe interstitial infiltrates throughout the lungs bilaterally slightly increased from previous. A second right-sided chest tube was placed today by Dr. Davison. Repeat blood work reveals WBC 5.2, hemoglobin 6.2, platelet count 133. Sodium 141, potassium 3.5, chloride 107, CO2 35, BUN 24 and creatinine 0.46. Blood sugar 132. Alkaline phosphatase 154. D-dimer 6.35. Patient is ordered for transfusion 1 unit packed RBCs today. Blood culture is MSSA and patient is on Ancef 2 g every 8 hours. Pleural fluid culture in progress. Patient has been afebrile, heart rate low 100s, respiratory rate 27, blood pressure 135/93, pulse ox 96%. Patient will be started on tube feedings today. 11/09: She remains intubated and on mechanical ventilation. She is on both Nimbex and Propofol. She remains intubated and on mechanical ventilation with tidal volume 400, FiO2 65 and PEEP of 10. Repeat chest x-ray reveals improving right apical pneumothorax measuring less than 5%. Stable bilateral diffuse infiltrates. WBC 8, hemoglobin 7.8 status post 1 unit of packed RBCs. Platelet count 123. Sodium 141, potassium 3.9, chloride 105, CO2 37. BUN 28 creatinine 0.51. Blood sugar 142. Inflammatory markers are improving with d-dimer 7.09, fibrinogen 159, LDH 1249, C-reactive protein 8.3, CK 23. Patient is on Kefzol for antibiotics. She remains with right-sided chest tube. She has been a febrile, heart rate 80, blood pressure 116/78, pulse ox 92%. Patient is not requiring vasopressors. 11/10: Initial chest x-ray this morning revealed interval development of 50% left-sided pneumothorax. Patient is status post chest tube placement on the left by Dr. Davison. Repeat chest x-ray revealed bilateral apical pneumothoraces measuring less than 5. Stable on the right improved on the left. Diffuse bilateral pulmonary parenchymal disease stable. Patient remains intubated and on mechanical ventilation. She is now off Nimbex. Tidal volume 500, FiO2 60% and PEEP of 8. Patient is on tube feedings. Repeat blood work reveals WBC 7.5, hemoglobin 7.7, platelet count 126. Sodium 139, potassium 3.3 and was replaced, chloride 98, CO2 38, BUN 28 creatinine 0.41. Cultures are running between 134-150. D-dimer 0.05, LDH 1338, CK 65, C-reactive protein less than 5. Sputum culture is in progress. Blood cultures no growth at 24 hours. All previous blood cultures are showing no growth. IgG is low at 471. Request a nurse contact Dr. Davison about IVIG infusion. 11/11: She remains in the intensive care unit, intubated and on mechanical ventilation with tidal volume 400, FiO2 50% and PEEP of 6. Patient now has bilateral chest tubes in place for bilateral pneumothoraces with right-sided air leak. Weaning will be attempted today. She has been afebrile, heart rate 95, blood pressure 148/81, pulse ox 96%. Repeat blood work reveals W BC 5.8, hemoglobin 10.3, platelet count 101. D-dimer 6.03. C-reactive protein less than 5, CK 44. LDH 1234. Sodium 133, potassium 3.8, chloride 94, CO2 38, BUN 22 and creatinine 0.32. Blood culture, sputum culture, pleural fluid culture also positive for MSSA. Patient is covered with Kefzol. 11/12: Patient remains in intensive care unit, intubated and on mechanical ventilation with tidal volume 400, FiO2 50% and PEEP of 6. She failed weaning trial yesterday and she was desatting and back on propofol as well as Precedex and fentanyl drips were added. Patient has been afebrile, heart rate 86, blood pressure 134/68, pulse ox 90%, respiratory rate 24. Repeat blood work reveals WBC 17.3, hemoglobin 9, platelets 164. Sodium 134, potassium 3.6, chloride 97, CO2 30, BUN 19 and creatinine 0.33. Blood sugars running between 127 and 141. Alkaline phosphatase 149. LDH 1437. C-reactive protein 6.4. Repeat chest x-ray reveals slight interval increase in the right-sided pneumothorax compared to prior exam. Correlate for pneumonia, edema or ARDS. She remains with bilateral chest tubes in place. Prognosis remains guarded. 11/13: Patient remains in the intensive care unit. She has been successfully extubated this morning and is on 15 L high flow nasal cannula. She has been afebrile, heart rate in the 80s, blood pressure 109/75. Repeat blood work reveals W BC 10.7, hemoglobin 7.3, platelet count 116. D-dimer 5.54. Sodium 134, potassium 4.0, chloride 97, CO2 33, BUN 20, creatinine 0.29. Blood sugars running between 119 and 143. LDH 1057, CK 22, C-reactive protein less than 5. Chest x-ray reveals small right apical pneumothorax slightly smaller. Right chest tube. No change in patchy airspace opacities in the lung right greater than left. Left-sided chest tube unchanged in position and resolution of left small apical pneumothorax. The patient's mental status is not back to baseline. She is somewhat confused. 11/14: Patient remains in the intensive care unit. PO 80s on NRB. Patient encouraged to keep mask on face. She has been afebrile, HR 80s - 90s, RR 28, BP 129/95. Repeat blood work reveals WBC 19.1, HGB 8.9, PLT 152. Sodium 134, K 3.7, Chloride 94, CO2 31. BUN 17, Creat 0.26. Ferritin 68.9. AST 49, ALT 17, AP149. LDH 2274. CK 61, CRP 29.4. CXR reveals stable diffuse infiltrates and small right apical pheumothorax. 11/15: Patient remains in the intensive care unit. Her breathing status appears to be stable. Pulse ox is running anywhere between 86 and 100% on 15 L high flow nasal cannula. She is complaining of right-sided pain in her chest secondary to the chest tube. Patient does have Dilaudid which she is receiving every 3 hours and we will add in [place]. The left-sided chest tube was removed yesterday. She has been afebrile, heart rate in the 90s, blood pressure 116/74. Chest x-ray reveals similar findings to prior. WBC 14.0, hemoglobin 8.8, platelet count 171. D-dimer 3.61. Sodium 134, potassium 4.3, chloride 96, CO2 33, BUN 25 and creatinine 0.34. Blood sugars are controlled. Alkaline phosphatase 128. LDH 1634. CK 49. C-reactive protein 21.8. No plan to palpation of the intensive care unit today. We'll plan for Seymour catheter to be removed. REVIEW OF SYSTEMS Constitutional: No fever, no chills, no night sweats. No weight change. Reports weakness, Reports fatigue. No daytime sleepiness. EENT: No headache. No blurred vision or double vision, no loss of vision. No loss of Hearing, no ringing in the ears, no dizziness. No nasal drainage or congestion. No epistaxis. No sore throat. Lungs: Reports shortness of breath, Reports cough, no sputum production. Reports wheezing. Cardiovascular: No chest pain, no lower extremity edema. No palpitations. No paroxysmal nocturnal dyspnea. No orthopnea. No lightheadedness or dizziness. No syncopal episodes. Abdominal: No abdominal pain. No nausea, vomiting. No diarrhea. No constipation. No bloody or tarry stools. No loss of appetite. Genitourinary: No dysuria, increased frequency, urgency. No urinary retention. Musculoskeletal: No myalgias. No muscle weakness, no gait dysfunction, no frequent falls. No back pain. No neck pain. Integumentary: No wounds, no lesions. No rash or pruritus. Neurologic: No aphasia. No facial droop. No change in mentation. No head injury. No headache. No paralysis. No paresthesia. Psychiatric: No depression. No anxiety. Endocrine: No abnormal blood sugars. PHYSICAL EXAMINATION Gen: This is a 39-year-old female. Patient is resting in the ICU bed and appears to be comfortable at rest with 15 L high flow nasal cannula. HEENT: Head is atraumatic, normocephalic. Pupils equal, round. Sclerae is anicteric. NECK: Supple. No JVD. No lymphadenopathy. No thyromegaly. Oral mucous membranes are dry. LUNGS: Scattered rhonchi, crackles in the bases. No intercostal retractions. HEART: Regular rate and rhythm. No murmur. ABDOMEN: Soft. Bowel sounds are present. No masses. No tenderness. Seymour catheter in place. EXTREMITIES: No pedal edema. No calf tenderness. Dorsalis pedis palpable bilaterally. NEUROLOGICAL: Patient is awake, alert and oriented x3. Cranial nerves 2 through 12 are grossly intact. ASSESSMENT AND PLAN 1. Acute hypoxic respiratory failure secondary to acute Covid 19 pneumonia, MSSA pneumonia, POA, successfully extubated . Consult with pulmonary medicine appreciated. Status post Tocilizumab. Patient intubated on November 06. Continue Lovenox 30 mg subcu twice daily, Solu-Medrol 60 mg IV push every 6 hours, zinc and vitamin supplements. Continue cefepime IV piggyback every 8 hours. 2. Right sided pneumothorax requiring chest tube 11/06 and 11/08. Left-sided chest tube has been removed. Patient is on IV Dilaudid for pain control we will add in [place] to start transitioning. 3. Acute exacerbation of mild intermittent bronchial asthma. Continue Ventolin inhaler 4 times daily as needed. 4. Left-sided pneumothorax requiring chest tube placed on 11/10. 5. Primary immunodeficiency. Low IgG. Possible IVIG infusion of [place] with Dr. Davison. 6. Chronic anemia most likely due to history of bleeding ulcers and alcohol abuse. 7. Tobacco use and dependence including taping. 8. Daily alcohol use/abuse. Patient apparently has had no alcohol intake for 7 days. Monitor closely for DTs 9. Recurrent depression and generalized anxiety disorder. Continue Abilify 7.5 mg daily, Wellbutrin 150 mg daily, BuSpar 10 mg as needed for anxiety, Cymbalta 60 mg daily. 10. Acute anemia secondary to sepsis without blood loss. Transfuse 1 unit of packed RBCs. 11. Migraine headaches. Continue Fioricet as needed. Hold Inderal 60 mg daily. 12. Sepsis with MSSA bacteremia, POA. Continue Kafzol. 13. Moderate protein calorie malnutrition. Patient maintain on tube feedings 14. Gastroesophageal reflux disease with history of bleeding ulcers. Continue Protonix 40 mg daily and Carafate 1 g 4 times daily. 15. DVT prophylaxis. Lovenox. DISCHARGE PLAN To be determined. Impression and plan of care have been directed as dictated by the signing physician. Isabel Samayoa nurse practitioner acting as scribe for signing physician. Objective - Vital Signs Vital signs: Vital Signs Temp 97.0 F L 11/15/20 04:00 Pulse 90 11/15/20 09:00 Resp 17 11/15/20 09:00 BP 116/74 11/15/20 09:00 Pulse Ox 94 L 11/15/20 09:00 Intake & Output 11/14/20 11/15/20 11/15/20 18:59 06:59 18:59 Intake Total 368.915 549 46 Output Total 1140 1205 200 Balance -771.085 -656 -154 Intake: IV 276 299 46 0.9 NS flush 36 39 6 Sodium Chloride 0.9% 1, 240 260 40 000 ml @ 20 mls/hr IV . Q24H SHERRON Rx#:[id number] Intake, IV Titration 92.915 Amount fentaNYL (PF) 1,000 mcg 92.915 In Sodium Chloride 0.9% 80 ml @ Per Protocol IV . Q0M SHERRON Rx#:[id number] Oral 250 Output: Chest Tube Drainage 20 0 Chest Tube Right 20 0 Urine 1120 1205 200 Other: Voiding Method Indwelling Catheter Indwelling Catheter ABP, PAP, CO, CI - Last Documented Arterial Blood Pressure 119/75 - Labs CBC & Chem 7: 11/15/20 03:13 11/15/20 03:13 Labs: Abnormal Lab Results - Last 24 Hours (Table) 11/14/20 11/14/20 11/14/20 Range/Units 11:47 16:54 23:38 WBC (3.8-10.6) k/uL RBC (3.80-5.40) m/uL Hgb (11.4-16.0) gm/dL Hct (34.0-46.0) % RDW (11.5-15.5) % Neutrophils # (1.3-7.7) k/uL Lymphocytes # (1.0-4.8) k/uL D-Dimer (<0.60) mg/L FEU Sodium (137-145) mmol/L Chloride (98-107) mmol/L Carbon Dioxide (22-30) mmol/L BUN (7-17) mg/dL Creatinine (0.52-1.04) mg/dL Glucose (74-99) mg/dL POC Glucose (mg/dL) 100 H 109 H 110 H (75-99) mg/dL Alkaline Phosphatase (38-126) U/L Lactate Dehydrogenase (313-618) U/L C-Reactive Protein (<10.0) mg/L Total Protein (6.3-8.2) g/dL 11/15/20 11/15/20 11/15/20 Range/Units 03:13 03:13 03:13 WBC 14.0 H (3.8-10.6) k/uL RBC 3.16 L (3.80-5.40) m/uL Hgb 8.8 L (11.4-16.0) gm/dL Hct 27.5 L (34.0-46.0) % RDW 17.9 H (11.5-15.5) % Neutrophils # 13.3 H (1.3-7.7) k/uL Lymphocytes # 0.2 L (1.0-4.8) k/uL D-Dimer 3.61 H (<0.60) mg/L FEU Sodium 134 L (137-145) mmol/L Chloride 96 L (98-107) mmol/L Carbon Dioxide 33 H (22-30) mmol/L BUN 25 H (7-17) mg/dL Creatinine 0.34 L (0.52-1.04) mg/dL Glucose 107 H (74-99) mg/dL POC Glucose (mg/dL) (75-99) mg/dL Alkaline Phosphatase 128 H (38-126) U/L Lactate Dehydrogenase 1634 H (313-618) U/L C-Reactive Protein 21.8 H (<10.0) mg/L Total Protein 6.1 L (6.3-8.2) g/dL 11/15/20 Range/Units 05:48 WBC (3.8-10.6) k/uL RBC (3.80-5.40) m/uL Hgb (11.4-16.0) gm/dL Hct (34.0-46.0) % RDW (11.5-15.5) % Neutrophils # (1.3-7.7) k/uL Lymphocytes # (1.0-4.8) k/uL D-Dimer (<0.60) mg/L FEU Sodium (137-145) mmol/L Chloride (98-107) mmol/L Carbon Dioxide (22-30) mmol/L BUN (7-17) mg/dL Creatinine (0.52-1.04) mg/dL Glucose (74-99) mg/dL POC Glucose (mg/dL) 120 H (75-99) mg/dL Alkaline Phosphatase (38-126) U/L Lactate Dehydrogenase (313-618) U/L C-Reactive Protein (<10.0) mg/L Total Protein (6.3-8.2) g/dL Microbiology - Last 24 Hours (Table) 11/08/20 18:50 Blood Culture - Final Blood No Growth after 144 hours
--- NOTE | 2020-11-15 11:20 | P.PN ---
Subjective Progress Note Date: 11/15/20 Principal diagnosis: CoVID 19 pneumonia This is a very pleasant 39-year-old female patient with a known history of GI bleeding with 2 nonbleeding antral ulcers per EGD, migraines, anxiety/depression, severe back pain, fibromyalgia, primary immunodeficiency disorder, irritable bowel syndrome, tobacco dependence, mild intermittent chronic bronchial asthma maintained on Advair. Presently 2 weeks ago she developed increasing shortness of breath cough congestion chills fever. She subsequently tested positive for CoVID 19 on 10/30/2020. Her shortness of breath continued to worsen she presented here to the emergency room last evening. Chest x-ray shows bilateral patchy infiltrates consistent with CoVID pneumonia as does CTA of the chest. No evidence of pulmonary embolism. She is seen today in consultation in the emergency room. She is currently sitting up at the bedside. She is quite hoarse, quite dyspneic on minimal exertion and conversation. Requiring 15 L high flow nasal cannula with nonrebreather mask to maintain O2 saturations in the 90s. White count 9.4. Hemoglobin 8.6. Platelets 284. Lymphocytes 0.6. D-dimer 1.06. Sodium 135. Potassium 4.0. Creatinine 0.88. Glucose 159. LDH 2067, C-reactive protein 320. The patient is seen today 11/05/2020 in follow-up in the intensive care unit. She is currently sitting up in bed. Awake and alert. Remains in mild respiratory distress. She is currently on AirVo at 60 L/m and 90% FiO2 along with a nonrebreather mask to maintain O2 saturations in the high 80s low 90s. Chest x-ray continues to show bilateral patchy infiltrates. Blood culture reveals no growth. White count 11.8. Hemoglobin 7.7. Lymphocytes 0.3. D- dimer 1.95. Sodium 135. Potassium 3.8. Creatinine 0.45. LDH 2243. C-react maciel protein 254. She did receive to tocilizumab. Remains on vitamin supplements, IV Solu-Medrol, Lovenox. The patient is seen today 11/06/2020 in follow-up in the intensive care unit. She is currently resting fairly comfortably in bed. She is on BiPAP at 12/5 and 100% FiO2 to maintain O2 saturations in the low 90s. Chest x-ray continues to revealed patchy bilateral lung infiltrates more so on the bases. She has 0.9 normal saline at 75 ML's per hour. Her preliminary blood cultures are positive for Staphylococcus aureus. White count 8.0. Hemoglobin 7.2. Lymphocytes 0.1. D-dimer 4.74. Sodium 137. Potassium 3.5. Creatinine 0.50. LDH 1845. C- reactive protein 69.8. She's been initiated on vancomycin and cefazolin. Continued on Lovenox, IV Solu Medrol, vitamin supplements. She did receive to tocilizumab. On 11/14/2020, the patient is extubated. We'll managed to extubate the patient yesterday and she is currently on 100% nonrebreather facemask. She is awake and alert and she is following commands and answering questions. She is off the Precedex. She is still on fentanyl which is running at 2 mcg/kg per minute. This is managed to control her pain. Note that the patient had bilateral pneumothoraces and she has bilateral chest tubes in place. The right-sided ch est tube is showing intermittent air leak and there is a tiny right apical pneumothorax. The left-sided chest tube has no air leak and output is minimal in the left lung is well expanded without any evidence of pneumothorax. Nevertheless, I suspect that the patient may have potentially superinfection. She has grown MSSA in his sputum and in the pleural fluid and in her blood. She is on IV cefazolin. Nevertheless, her LDH is on the rise and the chest x-ray showing some new bilateral pulmonary infiltration and the possibility of a superinfection with gram-negative is possible. As such, I need to broaden her antibiotic coverage. Meanwhile, she is resting comfortably in bed on 100% nonrebreather facemask pH is communicating. She remains on IV Solu-Medrol. Inflammatory markers from today show a rise in the LDH which is currently up to 2274 and the CRP is up to 21. He d-dimer currently is at 5.67. The white cell count is up to 19.1. Hemoglobin is at 8.9. She is still nothing by mouth for now. No signs of any alcohol withdrawal well. No agitation. No focal neurological deficit. She seems to be much more comfortable at this point in time. The patient is seen today 11/15/2020 in follow-up in the intensive care unit. She is currently sitting up in bed. Awake and alert in no acute distress. She remains on 15 L high flow nasal cannula to maintain O2 saturations in the 90s. Chest x-ray continues to show bilateral infiltrates. There is a small right apical pneumothorax. Right-sided chest tube remains in place. Left-sided chest tube was removed yesterday. She did have MSSA in the sputum, pleural fluid and blood cultures. Follow-up blood cultures are revealing no growth. She remains on cefepime. 9NS @ KVO. She remains on IV Solu-Medrol, Lovenox 30 mg subcu taneous twice a day, vitamin supplements. Objective - Vital Signs Vital signs: Vital Signs Temp 97.0 F L 11/15/20 04:00 Pulse 121 H 11/15/20 10:00 Resp 22 11/15/20 10:00 BP 117/76 11/15/20 10:00 Pulse Ox 86 L 11/15/20 10:00 Intake & Output 11/14/20 11/15/20 11/15/20 18:59 06:59 18:59 Intake Total 368.915 549 69 Output Total 1140 1205 300 Balance -771.085 -656 -231 Intake: IV 276 299 69 0.9 NS flush 36 39 9 Sodium Chloride 0.9% 1, 240 260 60 000 ml @ 20 mls/hr IV . Q24H [facility] Rx#:[id number] Intake, IV Titration 92.915 Amount fentaNYL (PF) 1,000 mcg 92.915 In Sodium Chloride 0.9% 80 ml @ Per Protocol IV . Q0M [facility] Rx#:[id number] Oral 250 Output: Chest Tube Drainage 20 0 Chest Tube Right 20 0 Urine 1120 1205 300 Other: Voiding Method Indwelling Catheter Indwelling Catheter ABP, PAP, CO, CI - Last Documented Arterial Blood Pressure 119/75 - Exam GENERAL EXAM: Alert, pleasant 39-year-old female patient, currently on high flow nasal cannula at 15 L, in mild respiratory distress. HEAD: Normocephalic. EYES: Normal reaction of pupils, equal size. NOSE: Clear with pink turbinates. THROAT: No erythema or exudates. NECK: No masses, no JVD. CHEST: No chest wall deformity. Right-sided chest tube remains in place with intermittent leak. Left-sided chest tube removed. LUNGS: Equal air entry with bilateral scattered rhonchi, crackles in the posterior bases. CVS: S1 and S2 normal with no audible murmur, regular rhythm. ABDOMEN: No hepatosplenomegaly, normal bowel sounds, no guarding or rigidity. SPINE: No scoliosis or deformity SKIN: No rashes CENTRAL NERVOUS SYSTEM: No focal deficits, tone is normal in all 4 extremities. EXTREMITIES: There is no peripheral edema. No clubbing, no cyanosis. Peripheral pulses are intact. - Labs CBC & Chem 7: 11/15/20 03:13 11/15/20 03:13 Labs: Abnormal Lab Results - Last 24 Hours (Table) 11/14/20 11/14/20 11/14/20 Range/Units 11:47 16:54 23:38 WBC (3.8-10.6) k/uL RBC (3.80-5.40) m/uL Hgb (11.4-16.0) gm/dL Hct (34.0-46.0) % RDW (11.5-15.5) % Neutrophils # (1.3-7.7) k/uL Lymphocytes # (1.0-4.8) k/uL D-Dimer (<0.60) mg/L FEU Sodium (137-145) mmol/L Chloride (98-107) mmol/L Carbon Dioxide (22-30) mmol/L BUN (7-17) mg/dL Creatinine (0.52-1.04) mg/dL Glucose (74-99) mg/dL POC Glucose (mg/dL) 100 H 109 H 110 H (75-99) mg/dL Alkaline Phosphatase (38-126) U/L Lactate Dehydrogenase (313-618) U/L C-Reactive Protein (<10.0) mg/L Total Protein (6.3-8.2) g/dL 11/15/20 11/15/20 11/15/20 Range/Units 03:13 03:13 03:13 WBC 14.0 H (3.8-10.6) k/uL RBC 3.16 L (3.80-5.40) m/uL Hgb 8.8 L (11.4-16.0) gm/dL Hct 27.5 L (34.0-46.0) % RDW 17.9 H (11.5-15.5) % Neutrophils # 13.3 H (1.3-7.7) k/uL Lymphocytes # 0.2 L (1.0-4.8) k/uL D-Dimer 3.61 H (<0.60) mg/L FEU Sodium 134 L (137-145) mmol/L Chloride 96 L (98-107) mmol/L Carbon Dioxide 33 H (22-30) mmol/L BUN 25 H (7-17) mg/dL Creatinine 0.34 L (0.52-1.04) mg/dL Glucose 107 H (74-99) mg/dL POC Glucose (mg/dL) (75-99) mg/dL Alkaline Phosphatase 128 H (38-126) U/L Lactate Dehydrogenase 1634 H (313-618) U/L C-Reactive Protein 21.8 H (<10.0) mg/L Total Protein 6.1 L (6.3-8.2) g/dL 11/15/20 Range/Units 05:48 WBC (3.8-10.6) k/uL RBC (3.80-5.40) m/uL Hgb (11.4-16.0) gm/dL Hct (34.0-46.0) % RDW (11.5-15.5) % Neutrophils # (1.3-7.7) k/uL Lymphocytes # (1.0-4.8) k/uL D-Dimer (<0.60) mg/L FEU Sodium (137-145) mmol/L Chloride (98-107) mmol/L Carbon Dioxide (22-30) mmol/L BUN (7-17) mg/dL Creatinine (0.52-1.04) mg/dL Glucose (74-99) mg/dL POC Glucose (mg/dL) 120 H (75-99) mg/dL Alkaline Phosphatase (38-126) U/L Lactate Dehydrogenase (313-618) U/L C-Reactive Protein (<10.0) mg/L Total Protein (6.3-8.2) g/dL Microbiology - Last 24 Hours (Table) 11/08/20 18:50 Blood Culture - Final Blood No Growth after 144 hours Assessment and Plan Assessment: 1 Acute hypoxemic respiratory failure secondary to acute CoVID 19 pneumonia. Did receive tocilizumab. 2 Acute exacerbation of mild intermittent chronic bronchial asthma secondary to above 3 Anemia in a patient with a known history of nonbleeding ulcers with previous EGD and GI bleed 4 History of chronic tobacco dependence, vaping 5 History of anxiety/depression 6 History of immunodeficiency disorder 7 Irritable bowel syndrome 8 History of migraine 9 Fibromyalgia. 10 History of chronic back pain Plan: The patient was seen and evaluated by Dr. Cruz Chest x-ray and labs reviewed Right-sided chest tube remains in place, left-sided chest tube removed yesterday. Currently on cefipime Titrate down the FiO2 as tolerated Continue Lovenox, IV Solu-Medrol, vitamin supplement Repeat inflammatory markers in the a.m. We will continue to follow and make further recommendations based on her clinical status I, the cosigning physician, performed a history & physical examination of the patient. Lungs sounds bilateral scattered rhonchi, crackles in the posterior bases. Maintaining O2 saturations in the 90s on 15 L high flow nasal cannula. I discussed the assessment and plan of care with my nurse practitioner, Cecelia Salgado. I attest to the above note as dictated by her.
[2020-11-15 11:46] LABS: Glucose,Whole Blood 136 mg/dL (75-99)
[2020-11-15] MEDS ORDERED: FUROSEMIDE 10 MG/ML 4 ML VIAL IV STA (12:10)
--- NOTE | 2020-11-15 12:19 | XR ---
EXAMINATION TYPE: XR chest 1V portable DATE OF EXAM: 11/15/2020 COMPARISON: Chest x-ray 11/15/2020 HISTORY: Chest tube TECHNIQUE: Single frontal view of the chest is obtained. FINDINGS: Right-sided chest tube remains in place. Right apical pneumothorax has decreased in size s omewhat in the interval. There are overlying leads. Bilateral airspace disease is again seen. Cardiac style silhouette is within normal limits. There are artifacts. Left subclavian central venous cathet er is again noted, distal tip in the right atrium. There is subcutaneous emphysema. IMPRESSION: There is not a significant interval change. Right-sided pneumothorax is likely decreased in size compared to prior.
[2020-11-15 16:37] LABS: Glucose,Whole Blood 119 mg/dL (75-99)
--- NOTE | 2020-11-15 16:42 | CT ---
EXAMINATION TYPE: DATE OF EXAM: 11/15/2020 COMPARISON: 11/03/2020 HISTORY: COVID, pneumonia CT DLP: 202.2 mGycm Automated exposure control for dose reduction was used. CONTRAST: Performed with IV Contrast, patient injected with 54, wasted the rest of 100 mL of Isovue 370. There are 3-D post processed images. Images were obtained from the thoracic inlet to the diaphragm with IV contrast. With IV contrast. There is extensive interstitial and airspace infiltrate in both lungs. There is severe groundglass in terstitial pulmonary infiltrate. There is right-sided pneumothorax approximately 20%. There is right- sided chest tube. There is normal contrast opacification of the pulmonary arteries. I see no filling defect. There is n o mediastinal adenopathy. There are no hilar masses. Thoracic aorta shows no aneurysm or dissection. 2.8 cm ascending aorta. There is no evidence of filling defect in the pulmonary arteries. There are bilateral breast implants which appear intact. There are a few mediastinal lymph nodes measuring less than 1 cm. Bony thorax i s intact. IMPRESSION: No evidence of pulmonary embolism. Right side pneumothorax. Right chest tube in good position in the major fissure. Extensive pulmonary interstitial and to a lesser extent airspace infiltrates. There is increase in th e pulmonary infiltrates compared to 11/03/2020 CT scan.
[2020-11-15] MEDS: SODIUM CHLORIDE 0.9% 1,000 ML IV SCH (17:12)
[2020-11-15 18:01] LABS: Ferritin 48.3 ng/mL (10.0-291.0)
[2020-11-15] MEDS: MELATONIN 3 MG TABLET PO SCH (20:00)
[2020-11-16] MEDS: methylPREDNISolone SOD SUCCI 125 MG/2 ML VIAL IV SCH ×4 (01:52→18:24)
[2020-11-16] MEDS: CEFEPIME 2 GM in SODIUM CHLORIDE 0.9% 100 ML IVPB SCH ×3 (01:54→18:24)
[2020-11-16] MEDS: HYDROmorphone 1 MG/ML 1 ML SYRINGE IVP PRN ×7 (02:28→22:39)
[2020-11-16 05:00] LABS: Anisocytosis Slight; Basophils % (A) 0 %; Eosinophils % (A) 0 %; HCT 30.8 % (34.0-46.0); HGB 9.4 gm/dL (11.4-16.0); Hypochromasia Marked; Lymphocytes # (A) 0.4 k/uL (1.0-4.8); Lymphocytes % (A) 2 %; MCH 26.8 pg (25.0-35.0); MCHC 30.5 g/dL (31.0-37.0); MCV 88.1 fL (80.0-100.0); Mean Platelet Volume 9.8; Monocytes # (A) 0.5 k/uL (0-1.0); Monocytes % (A) 3 %; Neutrophils # (A) 14.5 k/uL (1.3-7.7); Neutrophils % (A) 94 %; Platelet Count 228 k/uL (150-450); Poikilocytosis Slight; RBC 3.49 m/uL (3.80-5.40); RDW 17.7 % (11.5-15.5); WBC 15.4 k/uL (3.8-10.6)
[2020-11-16 05:49] LABS: ALT 17 U/L (4-34); AST 24 U/L (14-36); African American GFR (CKD) >90 (>60 ml/min/1.73 sqM); Alkaline Phosphatase 129 U/L (38-126); Anion Gap 4 mmol/L; Blood Urea Nitrogen 26 mg/dL (7-17); C Reactive Protein 7.6 mg/L (<10.0); Calcium 9.6 mg/dL (8.4-10.2); Carbon Dioxide 36 mmol/L (22-30); Chloride 94 mmol/L (98-107); Creatine Kinase 39 U/L (30-135); Glucose 96 mg/dL (74-99); LDH 1424 U/L (313-618); Non-African American GFR(CKD) >90 (>60 ml/min/1.73 sqM); Potassium 3.4 mmol/L (3.5-5.1); Sodium 134 mmol/L (137-145); Total Bilirubin 0.8 mg/dL (0.2-1.3); Total Protein 6.6 g/dL (6.3-8.2)
[2020-11-16 07:21] LABS: Glucose,Whole Blood 102 mg/dL (75-99)
[2020-11-16] MEDS: ALBUTEROL HFA INHALER INHALATION PRN ×4 (07:42→20:16)
[2020-11-16] MEDS: INSULIN ASPART (NovoLOG) 100 UNIT/ML VIAL SQ SCH ×4 (08:49→20:26)
[2020-11-16] MEDS: PANTOPRAZOLE 40 MG/10 ML VIAL IVP SCH ×2 (08:50→20:26)
[2020-11-16] MEDS: ENOXAPARIN 30 MG/0.3 ML SYRINGE SQ SCH ×2 (08:54→20:25)
[2020-11-16] MEDS: DULoxetine HCL 60 MG CAPSULE.DR PO SCH (09:46)
[2020-11-16] MEDS: ASCORBIC ACID 500 MG TAB PO SCH (09:46)
[2020-11-16] MEDS: ZINC SULFATE 220 MG CAP PO SCH (09:46)
[2020-11-16] MEDS: SUCRALFATE 1 GM TAB PO SCH ×4 (09:46→20:27)
[2020-11-16] MEDS: CHOLECALCIFEROL 25 MCG (1000 IU) TABLET PO SCH (09:46)
[2020-11-16] MEDS: ARIPiprazole 5 MG TAB PO SCH (09:47)
[2020-11-16] MEDS: buPROPion XL 150 MG TAB.ER.24H PO SCH (09:48)
[2020-11-16 09:59] LABS: Ferritin 36.5 ng/mL (10.0-291.0)
--- NOTE | 2020-11-16 10:53 | P.PN ---
Subjective Progress Note Date: 11/16/20 HISTORY OF PRESENT ILLNESS This is a 39-year-old female patient of Dr. Gonzalez with past medical history of GI bleed in 2008, July 2020 was admitted for GI bleed secondary to 2 no nbleeding antral ulcers requiring transfusion 2 units packed RBCs, tobacco use, alcohol abuse, recurrent depression, generalized anxiety disorder. Patient was diagnosed with COVID-19 on October 30. She complains of increasing shortness of breath, cough, congestion, fever and chills and hoarseness. She continued to worsen significantly over the past 2 days. She also complains of bloody sputum production. Patient came into [facility] emergency center for evaluation. Temperature 98.3, heart rate 102, respiratory rate 40, blood pressure 95/64, pulse ox 71%. EKG was a sinus rhythm no acute ST elevation. W BC 9.4, hemoglobin 8.6, platelet count 284. Sodium 135, potassium 2.8, chloride 102, CO2 21, BUN 19 creatinine 0.88. Blood sugar 92. AST 71, ALT 24, alkaline phosphatase 264 [place] phosphatase 264, LDH 2067, CA reactive protein 320.8. Lactic acid 3.1. CT angiogram of the chest reveals no evidence pulmonary embolism. Severe pulmonary interstitial and airspace edema. Chest x-ray reveals pulmonary interstitial pneumonia worse than recent exam. Some airspace component. Patient is status post 2 L of IV fluids, potassium replacement, Dilaudid, patient seen by pulmonary medicine and started on Tocilizumab. 11/05: Patient remains in the intensive care unit. She is a nonrebreather mask and AorVp and can maintain a pulse ox in the 90s. If she removes these, patient follows less than 70s. She is very anxious today and has many questions. She does have large number of psychiatric medications which have been resumed. We will also add and Xanax twice daily as needed. She has been afebrile, heart rate 89, blood pressure 116/79, pulse ox 95%. Repeat blood work reveals WBC 11.8, hemoglobin 7.7, platelet count 243. D-dimer 1.95. Sodium 135, electrolyt es otherwise normal, BUN 18 creatinine 0.45. Blood sugars running between 117- 129. AST 48, ALT 18, alkaline phosphatase 218, LDH 2243. C-reactive protein 254. Patient had 2 blood cultures, one is showing no growth at 24 hours and the second obtained at 2240 showing gram-positive cocci. She was started on vancomycin. 11/06: Patient remains in ICU, still on a BiPAP treatments,, continuously, terri barber did not have any meals for the past 72 hours secondary to hypoxemia and air hunger without the reading device. Patient has not slept well at all, cytokinin markers are elevated, blood culture growing Staphylococcus from specimen collected November 03 are pending sensitivity. Patient currently is on IV cefazolin, IV vancomycin, followed by infectious disease. So Medrol 60 mg every 6 hours, most of her oral medications cannot be complied upon secondary to hypoxemia event removed briefly. Hemoglobin at 7.2, blood gas shows pCO2 54, PaO2 of 67, 7.39 pH. Double basic count of under 10, creatinine of 0.5, LDH 1845, alkaline phosphatase 194. Albumin low at 2.6, blood pressure stable,Heart rate of 114, blood pressure of 135/90. Pulse ox 85-86 at BiPAP treatments. 11/07 yesterday afternoon, patient required placement of right chest tube secondary to spontaneous pneumothorax placed by the ER doctor,, patient has worsening respiratory status, and was intubated by the ER physician currently with tidal volume of 40, PEEP of 10, assist control rate of 24, FiO2 of 80%. There is residual small pneumothorax right side, there is a left subclavian triple-lumen placed by Dr. Harrington today. There is consult for nutrition, has an OG tube, for which feedings would be started once completed. Chest x-ray shows bilateral diffuse infiltrates, creatinine of 0.4, LDH of 1630, CRP of 36 platelet count 132, hemoglobin 7.3 11/08: Patient remains in the intensive care unit, intubated and on mechanical ventilation with FiO2 100%, tidal volume 400 and PEEP of 10. Patient is currently on sedation. Repeat chest x-ray today reveals increase in size of right-sided pneumothorax since previous measuring of 3.5 cm today compared to 1.2 cm yesterday. Severe interstitial infiltrates throughout the lungs bilaterally slightly increased from previous. A second right-sided chest tube was placed today by Dr. Davison. Repeat blood work reveals WBC 5.2, hemoglobin 6.2, platelet count 133. Sodium 141, potassium 3.5, chloride 107, CO2 35, BUN 24 and creatinine 0.46. Blood sugar 132. Alkaline phosphatase 154. D-dimer 6.35. Patient is ordered for transfusion 1 unit packed RBCs today. Blood culture is MSSA and patient is on Ancef 2 g every 8 hours. Pleural fluid culture in progress. Patient has been afebrile, heart rate low 100s, respiratory rate 27, blood pressure 135/93, pulse ox 96%. Patient will be started on tube feedings today. 11/09: She remains intubated and on mechanical ventilation. She is on both Nimbex and Propofol. She remains intubated and on mechanical ventilation with tidal volume 400, FiO2 65 and PEEP of 10. Repeat chest x-ray reveals improving right apical pneumothorax measuring less than 5%. Stable bilateral diffuse infiltrates. WBC 8, hemoglobin 7.8 status post 1 unit of packed RBCs. Platelet count 123. Sodium 141, potassium 3.9, chloride 105, CO2 37. BUN 28 creatinine 0.51. Blood sugar 142. Inflammatory markers are improving with d-dimer 7.09, fibrinogen 159, LDH 1249, C-reactive protein 8.3, CK 23. Patient is on Kefzol for antibiotics. She remains with right-sided chest tube. She has been a febrile, heart rate 80, blood pressure 116/78, pulse ox 92%. Patient is not requiring vasopressors. 11/10: Initial chest x-ray this morning revealed interval development of 50% left-sided pneumothorax. Patient is status post chest tube placement on the left by Dr. Davison. Repeat chest x-ray revealed bilateral apical pneumothoraces measuring less than 5. Stable on the right improved on the left. Diffuse bilateral pulmonary parenchymal disease stable. Patient remains intubated and on mechanical ventilation. She is now off Nimbex. Tidal volume 500, FiO2 60% and PEEP of 8. Patient is on tube feedings. Repeat blood work reveals WBC 7.5, hemoglobin 7.7, platelet count 126. Sodium 139, potassium 3.3 and was replaced, chloride 98, CO2 38, BUN 28 creatinine 0.41. Cultures are running between 134-150. D-dimer 0.05, LDH 1338, CK 65, C-reactive protein less than 5. Sputum culture is in progress. Blood cultures no growth at 24 hours. All previous blood cultures are showing no growth. IgG is low at 471. Request a nurse contact Dr. Davison about IVIG infusion. 11/11: She remains in the intensive care unit, intubated and on mechanical ventilation with tidal volume 400, FiO2 50% and PEEP of 6. Patient now has bilateral chest tubes in place for bilateral pneumothoraces with right-sided air leak. Weaning will be attempted today. She has been afebrile, heart rate 95, blood pressure 148/81, pulse ox 96%. Repeat blood work reveals W BC 5.8, hemoglobin 10.3, platelet count 101. D-dimer 6.03. C-reactive protein less than 5, CK 44. LDH 1234. Sodium 133, potassium 3.8, chloride 94, CO2 38, BUN 22 and creatinine 0.32. Blood culture, sputum culture, pleural fluid culture also positive for MSSA. Patient is covered with Kefzol. 11/12: Patient remains in intensive care unit, intubated and on mechanical ventilation with tidal volume 400, FiO2 50% and PEEP of 6. She failed weaning trial yesterday and she was desatting and back on propofol as well as Precedex and fentanyl drips were added. Patient has been afebrile, heart rate 86, blood pressure 134/68, pulse ox 90%, respiratory rate 24. Repeat blood work reveals WBC 17.3, hemoglobin 9, platelets 164. Sodium 134, potassium 3.6, chloride 97, CO2 30, BUN 19 and creatinine 0.33. Blood sugars running between 127 and 141. Alkaline phosphatase 149. LDH 1437. C-reactive protein 6.4. Repeat chest x-ray reveals slight interval increase in the right-sided pneumothorax compared to prior exam. Correlate for pneumonia, edema or ARDS. She remains with bilateral chest tubes in place. Prognosis remains guarded. 11/13: Patient remains in the intensive care unit. She has been successfully extubated this morning and is on 15 L high flow nasal cannula. She has been afebrile, heart rate in the 80s, blood pressure 109/75. Repeat blood work reveals W BC 10.7, hemoglobin 7.3, platelet count 116. D-dimer 5.54. Sodium 134, potassium 4.0, chloride 97, CO2 33, BUN 20, creatinine 0.29. Blood sugars running between 119 and 143. LDH 1057, CK 22, C-reactive protein less than 5. Chest x-ray reveals small right apical pneumothorax slightly smaller. Right chest tube. No change in patchy airspace opacities in the lung right greater than left. Left-sided chest tube unchanged in position and resolution of left small apical pneumothorax. The patient's mental status is not back to baseline. She is somewhat confused. 11/14: Patient remains in the intensive care unit. PO 80s on NRB. Patient encouraged to keep mask on face. She has been afebrile, HR 80s - 90s, RR 28, BP 129/95. Repeat blood work reveals WBC 19.1, HGB 8.9, PLT 152. Sodium 134, K 3.7, Chloride 94, CO2 31. BUN 17, Creat 0.26. Ferritin 68.9. AST 49, ALT 17, AP149. LDH 2274. CK 61, CRP 29.4. CXR reveals stable diffuse infiltrates and small right apical pheumothorax. 11/15: Patient remains in the intensive care unit. Her breathing status appears to be stable. Pulse ox is running anywhere between 86 and 100% on 15 L high flow nasal cannula. She is complaining of right-sided pain in her chest secondary to the chest tube. Patient does have Dilaudid which she is receiving every 3 hours and we will add in [place]. The left-sided chest tube was removed yesterday. She has been afebrile, heart rate in the 90s, blood pressure 116/74. Chest x-ray reveals similar findings to prior. WBC 14.0, hemoglobin 8.8, platelet count 171. D-dimer 3.61. Sodium 134, potassium 4.3, chloride 96, CO2 33, BUN 25 and creatinine 0.34. Blood sugars are controlled. Alkaline phosphatase 128. LDH 1634. CK 49. C-reactive protein 21.8. No plan to palpation of the intensive care unit today. We'll plan for Seymour catheter to be removed. 11/16: Patient remains in intensive care unit. She is now on high flow nasal cannula at 10 L. She is having some sinus tachycardia especially with eating breakfast this morning. She is on Dilaudid IV every 3 hours and [place] was added yesterday and will encourage to use [place] today and try and wean off Dilaudid. She continues to have pain at the chest tube site. Chest x-ray this morning reveals no significant interval change. Right-sided pneumothorax is likely decreased. CTA of the chest reveals no evidence of pulmonary embolism. Right- sided pneumothorax. Right chest tube in good position in the major fissure. REVIEW OF SYSTEMS Constitutional: No fever, no chills, no night sweats. No weight change. Reports weakness, Reports fatigue. No daytime sleepiness. EENT: No headache. No blurred vision or double vision, no loss of vision. No loss of Hearing, no ringing in the ears, no dizziness. No nasal drainage or congestion. No epistaxis. No sore throat. Lungs: Reports shortness of breath, Reports cough, no sputum production. Reports wheezing. Cardiovascular: No chest pain, no lower extremity edema. No palpitations. No paroxysmal nocturnal dyspnea. No orthopnea. No lightheadedness or dizziness. No syncopal episodes. Abdominal: No abdominal pain. No nausea, vomiting. No diarrhea. No constipation. No bloody or tarry stools. No loss of appetite. Genitourinary: No dysuria, increased frequency, urgency. No urinary retention. Musculoskeletal: No myalgias. No muscle weakness, no gait dysfunction, no frequent falls. No back pain. No neck pain. Integumentary: No wounds, no lesions. Neurologic: No aphasia. No facial droop. No change in mentation. No head injury. No headache. No paralysis. No paresthesia. Psychiatric: No depression. No anxiety. Endocrine: No abnormal blood sugars. PHYSICAL EXAMINATION Gen: This is a 39-year-old female. Patient is resting in the ICU bed and appears to be comfortable at rest with 10 L high flow nasal cannula. Patient is eating breakfast andbe tachycardic. HEENT: Head is atraumatic, normocephalic. Pupils equal, round. Sclerae is anicteric. NECK: Supple. No JVD. No lymphadenopathy. No thyromegaly. Oral mucous membranes are dry. LUNGS: Scattered rhonchi, crackles in the bases. No intercostal retractions. HEART: Regular rate and rhythm. No murmur. ABDOMEN: Soft. Bowel sounds are present. No masses. No tenderness. Seymour catheter in place. EXTREMITIES: No pedal edema. No calf tenderness. Dorsalis pedis palpable bilaterally. NEUROLOGICAL: Patient is awake, alert and oriented x3. Cranial nerves 2 through 12 are grossly intact. ASSESSMENT AND PLAN 1. Acute hypoxic respiratory failure secondary to acute Covid 19 pneumonia, MSSA pneumonia, POA, successfully extubated . Consult with pulmonary medicine appreciated. Status post Tocilizumab. Patient intubated on November 06. Continue Lovenox 30 mg subcu twice daily, Solu-Medrol 60 mg IV push every 6 hours, zinc and vitamin supplements. Continue cefepime IV piggyback every 8 hours. 2. Right sided pneumothorax requiring chest tube 11/06 and 11/08. Left-sided chest tube has been removed. Patient is on IV Dilaudid for pain control we will add in [place] to start transitioning to oral medications. 3. Acute exacerbation of mild intermittent bronchial asthma. Continue Ventolin inhaler 4 times daily as needed. 4. Left-sided pneumothorax requiring chest tube placed on 11/10. 5. Primary immunodeficiency. 6. Chronic anemia most likely due to history of bleeding ulcers and alcohol abuse. 7. Tobacco use and dependence including taping. 8. Daily alcohol use/abuse. Patient apparently has had no alcohol intake for 7 days. Monitor closely for DTs 9. Recurrent depression and generalized anxiety disorder. Continue Abilify 7.5 mg daily, Wellbutrin 150 mg daily, BuSpar 10 mg as needed for anxiety, Cymbalta 60 mg daily. 10. Acute anemia secondary to sepsis without blood loss. Transfuse 1 unit of packed RBCs. 11. Migraine headaches. Continue Fioricet as needed. Hold Inderal 60 mg daily. 12. Sepsis with MSSA bacteremia, POA. Continue Kafzol. 13. Moderate protein calorie malnutrition. Patient maintain on tube feedings 14. Gastroesophageal reflux disease with history of bleeding ulcers. Continue Protonix 40 mg daily and Carafate 1 g 4 times daily. 15. DVT prophylaxis. Lovenox. DISCHARGE PLAN To be determined: Home or subacute rehab. Impression and plan of care have been directed as dictated by the signing physician. Isabel Samayoa nurse practitioner acting as scribe for signing physician. Objective - Vital Signs Vital signs: Vital Signs Temp 97.8 F 11/16/20 08:00 Pulse 120 H 11/16/20 09:00 Resp 28 H 11/16/20 09:00 BP 116/72 11/16/20 09:00 Pulse Ox 84 L 11/16/20 09:00 Intake & Output 11/15/20 11/16/20 11/16/20 18:59 06:59 18:59 Intake Total 253 263 40 Output Total 2295 815 120 Balance -2041 -552 -80 Weight 58.9 kg Intake: IV 253 263 40 0.9 NS flush 33 163 40 Sodium Chloride 0.9% 1, 220 100 000 ml @ 20 mls/hr IV . [facility] Rx#:[id number] Output: Chest Tube Drainage 20 Chest Tube Right 20 Urine 6765 815 120 Other: Voiding Method Indwelling Catheter Indwelling Catheter Indwelling Catheter ABP, PAP, CO, CI - Last Documented Arterial Blood Pressure 119/75 - Labs CBC & Chem 7: 11/16/20 03:28 11/16/20 03:28 Labs: Abnormal Lab Results - Last 24 Hours (Table) 11/15/20 11/15/20 11/16/20 Range/Units 11:44 16:36 03:28 WBC 15.4 H (3.8-10.6) k/uL RBC 3.49 L (3.80-5.40) m/uL Hgb 9.4 L (11.4-16.0) gm/dL Hct 30.8 L (34.0-46.0) % MCHC 30.5 L (31.0-37.0) g/dL RDW 17.7 H (11.5-15.5) % Neutrophils # 14.5 H (1.3-7.7) k/uL Lymphocytes # 0.4 L (1.0-4.8) k/uL D-Dimer (<0.60) mg/L FEU Sodium (137-145) mmol/L Potassium (3.5-5.1) mmol/L Chloride (98-107) mmol/L Carbon Dioxide (22-30) mmol/L BUN (7-17) mg/dL Creatinine (0.52-1.04) mg/dL POC Glucose (mg/dL) 136 H 119 H (75-99) mg/dL Alkaline Phosphatase (38-126) U/L Lactate Dehydrogenase (313-618) U/L 11/16/20 11/16/20 11/16/20 Range/Units 03:28 03:28 07:19 WBC (3.8-10.6) k/uL RBC (3.80-5.40) m/uL Hgb (11.4-16.0) gm/dL Hct (34.0-46.0) % MCHC (31.0-37.0) g/dL RDW (11.5-15.5) % Neutrophils # (1.3-7.7) k/uL Lymphocytes # (1.0-4.8) k/uL D-Dimer 3.42 H (<0.60) mg/L FEU Sodium 134 L (137-145) mmol/L Potassium 3.4 L (3.5-5.1) mmol/L Chloride 94 L (98-107) mmol/L Carbon Dioxide 36 H (22-30) mmol/L BUN 26 H (7-17) mg/dL Creatinine 0.36 L (0.52-1.04) mg/dL POC Glucose (mg/dL) 102 H (75-99) mg/dL Alkaline Phosphatase 129 H (38-126) U/L Lactate Dehydrogenase 1424 H (313-618) U/L
[2020-11-16] MEDS: POTASSIUM CHLORIDE ER 20 MEQ TAB.ER PO SCH ×2 (11:21→12:23)
[2020-11-16 11:31] LABS: Glucose,Whole Blood 169 mg/dL (75-99)
--- NOTE | 2020-11-16 11:40 | P.PN ---
Subjective Progress Note Date: 11/16/20 Principal diagnosis: CoVID 19 pneumonia This is a very pleasant 39-year-old female patient with a known history of GI bleeding with 2 nonbleeding antral ulcers per EGD, migraines, anxiety/depression, severe back pain, fibromyalgia, primary immunodeficiency disorder, irritable bowel syndrome, tobacco dependence, mild intermittent chronic bronchial asthma maintained on Advair. Presently 2 weeks ago she developed increasing shortness of breath cough congestion chills fever. She subsequently tested positive for CoVID 19 on 10/30/2020. Her shortness of breath continued to worsen she presented here to the emergency room last evening. Chest x-ray shows bilateral patchy infiltrates consistent with CoVID pneumonia as does CTA of the chest. No evidence of pulmonary embolism. She is seen today in consultation in the emergency room. She is currently sitting up at the bedside. She is quite hoarse, quite dyspneic on minimal exertion and conversation. Requiring 15 L high flow nasal cannula with nonrebreather mask to maintain O2 saturations in the 90s. White count 9.4. Hemoglobin 8.6. Platelets 284. Lymphocytes 0.6. D-dimer 1.06. Sodium 135. Potassium 4.0. Creatinine 0.88. Glucose 159. LDH 2067, C-reactive protein 320. The patient is seen today 11/05/2020 in follow-up in the intensive care unit. She is currently sitting up in bed. Awake and alert. Remains in mild respiratory distress. She is currently on AirVo at 60 L/m and 90% FiO2 along with a nonrebreather mask to maintain O2 saturations in the high 80s low 90s. Chest x-ray continues to show bilateral patchy infiltrates. Blood culture reveals no growth. White count 11.8. Hemoglobin 7.7. Lymphocytes 0.3. D- dimer 1.95. Sodium 135. Potassium 3.8. Creatinine 0.45. LDH 2243. C-react maciel protein 254. She did receive to tocilizumab. Remains on vitamin supplements, IV Solu-Medrol, Lovenox. The patient is seen today 11/06/2020 in follow-up in the intensive care unit. She is currently resting fairly comfortably in bed. She is on BiPAP at 12/5 and 100% FiO2 to maintain O2 saturations in the low 90s. Chest x-ray continues to revealed patchy bilateral lung infiltrates more so on the bases. She has 0.9 normal saline at 75 ML's per hour. Her preliminary blood cultures are positive for Staphylococcus aureus. White count 8.0. Hemoglobin 7.2. Lymphocytes 0.1. D-dimer 4.74. Sodium 137. Potassium 3.5. Creatinine 0.50. LDH 1845. C- reactive protein 69.8. She's been initiated on vancomycin and cefazolin. Continued on Lovenox, IV Solu Medrol, vitamin supplements. She did receive to tocilizumab. On 11/14/2020, the patient is extubated. We'll managed to extubate the patient yesterday and she is currently on 100% nonrebreather facemask. She is awake and alert and she is following commands and answering questions. She is off the Precedex. She is still on fentanyl which is running at 2 mcg/kg per minute. This is managed to control her pain. Note that the patient had bilateral pneumothoraces and she has bilateral chest tubes in place. The right-sided ch est tube is showing intermittent air leak and there is a tiny right apical pneumothorax. The left-sided chest tube has no air leak and output is minimal in the left lung is well expanded without any evidence of pneumothorax. Nevertheless, I suspect that the patient may have potentially superinfection. She has grown MSSA in his sputum and in the pleural fluid and in her blood. She is on IV cefazolin. Nevertheless, her LDH is on the rise and the chest x-ray showing some new bilateral pulmonary infiltration and the possibility of a superinfection with gram-negative is possible. As such, I need to broaden her antibiotic coverage. Meanwhile, she is resting comfortably in bed on 100% nonrebreather facemask pH is communicating. She remains on IV Solu-Medrol. Inflammatory markers from today show a rise in the LDH which is currently up to 2274 and the CRP is up to 21. He d-dimer currently is at 5.67. The white cell count is up to 19.1. Hemoglobin is at 8.9. She is still nothing by mouth for now. No signs of any alcohol withdrawal well. No agitation. No focal neurological deficit. She seems to be much more comfortable at this point in time. The patient is seen today 11/15/2020 in follow-up in the intensive care unit. She is currently sitting up in bed. Awake and alert in no acute distress. She remains on 15 L high flow nasal cannula to maintain O2 saturations in the 90s. Chest x-ray continues to show bilateral infiltrates. There is a small right apical pneumothorax. Right-sided chest tube remains in place. Left-sided chest tube was removed yesterday. She did have MSSA in the sputum, pleural fluid and blood cultures. Follow-up blood cultures are revealing no growth. She remains on cefepime. 9NS @ KVO. She remains on IV Solu-Medrol, Lovenox 30 mg subcu taneous twice a day, vitamin supplements. The patient is seen today 11/16/2020 in follow-up in the intensive care unit. She is awake and alert in no acute distress. Sitting up in bed. She is down to 10 L high flow nasal cannula and maintaining O2 saturations in the low 90s. CAT scan of the chest ruled out pulmonary embolism. There is still a 20% right- sided pneumothorax. Right-sided chest tube remains in good position. No significant air leak. Only about 20 ML's output per shift. Positive for MSSA as were her blood cultures and sputum cultures. She remains on cefepime. She did receive tocilizumab. She is continued on IV Solu-Medrol, Lovenox, vitamin supplements. Objective - Vital Signs Vital signs: Vital Signs Temp 97.8 F 11/16/20 08:00 Pulse 120 H 11/16/20 09:00 Resp 28 H 11/16/20 09:00 BP 116/72 11/16/20 09:00 Pulse Ox 84 L 11/16/20 09:00 Intake & Output 11/15/20 11/16/20 11/16/20 18:59 06:59 18:59 Intake Total 253 263 40 Output Total 2292 815 120 Balance -2042 -552 -80 Weight 58.9 kg Intake: IV 253 263 40 0.9 NS flush 33 163 40 Sodium Chloride 0.9% 1, 220 100 000 ml @ 20 mls/hr IV . Q24H [facility] Rx#:[id number] Output: Chest Tube Drainage 20 Chest Tube Right 20 Urine 2275 815 120 Other: Voiding Method Indwelling Catheter Indwelling Catheter Indwelling Catheter ABP, PAP, CO, CI - Last Documented Arterial Blood Pressure 119/75 - Exam GENERAL EXAM: Alert, pleasant 39-year-old female patient, currently on high flow nasal cannula at 10 L, in mild respiratory distress. HEAD: Normocephalic. EYES: Normal reaction of pupils, equal size. NOSE: Clear with pink turbinates. THROAT: No erythema or exudates. NECK: No masses, no JVD. CHEST: No chest wall deformity. Right-sided chest tube remains in place with intermittent leak. Left-sided chest tube removed. LUNGS: Equal air entry with bilateral scattered rhonchi, crackles in the posterior bases. CVS: S1 and S2 normal with no audible murmur, regular rhythm. ABDOMEN: No hepatosplenomegaly, normal bowel sounds, no guarding or rigidity. SPINE: No scoliosis or deformity SKIN: No rashes CENTRAL NERVOUS SYSTEM: No focal deficits, tone is normal in all 4 extremities. EXTREMITIES: There is no peripheral edema. No clubbing, no cyanosis. Peripheral pulses are intact. - Labs CBC & Chem 7: 11/16/20 03:28 11/16/20 03:28 Labs: Abnormal Lab Results - Last 24 Hours (Table) 11/15/20 11/15/20 11/16/20 Range/Units 11:44 16:36 03:28 WBC 15.4 H (3.8-10.6) k/uL RBC 3.49 L (3.80-5.40) m/uL Hgb 9.4 L (11.4-16.0) gm/dL Hct 30.8 L (34.0-46.0) % MCHC 30.5 L (31.0-37.0) g/dL RDW 17.7 H (11.5-15.5) % Neutrophils # 14.5 H (1.3-7.7) k/uL Lymphocytes # 0.4 L (1.0-4.8) k/uL D-Dimer (<0.60) mg/L FEU Sodium (137-145) mmol/L Potassium (3.5-5.1) mmol/L Chloride (98-107) mmol/L Carbon Dioxide (22-30) mmol/L BUN (7-17) mg/dL Creatinine (0.52-1.04) mg/dL POC Glucose (mg/dL) 136 H 119 H (75-99) mg/dL Alkaline Phosphatase (38-126) U/L Lactate Dehydrogenase (313-618) U/L 11/16/20 11/16/20 11/16/20 Range/Units 03:28 03:28 07:19 WBC (3.8-10.6) k/uL RBC (3.80-5.40) m/uL Hgb (11.4-16.0) gm/dL Hct (34.0-46.0) % MCHC (31.0-37.0) g/dL RDW (11.5-15.5) % Neutrophils # (1.3-7.7) k/uL Lymphocytes # (1.0-4.8) k/uL D-Dimer 3.42 H (<0.60) mg/L FEU Sodium 134 L (137-145) mmol/L Potassium 3.4 L (3.5-5.1) mmol/L Chloride 94 L (98-107) mmol/L Carbon Dioxide 36 H (22-30) mmol/L BUN 26 H (7-17) mg/dL Creatinine 0.36 L (0.52-1.04) mg/dL POC Glucose (mg/dL) 102 H (75-99) mg/dL Alkaline Phosphatase 129 H (38-126) U/L Lactate Dehydrogenase 1424 H (313-618) U/L 11/16/20 Range/Units 11:29 WBC (3.8-10.6) k/uL RBC (3.80-5.40) m/uL Hgb (11.4-16.0) gm/dL Hct (34.0-46.0) % MCHC (31.0-37.0) g/dL RDW (11.5-15.5) % Neutrophils # (1.3-7.7) k/uL Lymphocytes # (1.0-4.8) k/uL D-Dimer (<0.60) mg/L FEU Sodium (137-145) mmol/L Potassium (3.5-5.1) mmol/L Chloride (98-107) mmol/L Carbon Dioxide (22-30) mmol/L BUN (7-17) mg/dL Creatinine (0.52-1.04) mg/dL POC Glucose (mg/dL) 169 H (75-99) mg/dL Alkaline Phosphatase (38-126) U/L Lactate Dehydrogenase (313-618) U/L Assessment and Plan Assessment: 1 Acute hypoxemic respiratory failure secondary to acute CoVID 19 pneumonia. Did receive tocilizumab. The patient did require intubation mechanical ventilatory support. She also developed bilateral pneumothoraces. Right-sided chest tube remains in place. Left-sided chest tube had been removed. 2 MSSA bacteremia, sputum, pleural fluid 3 Anemia in a patient with a known history of nonbleeding ulcers with previous EGD and GI bleed 4 History of chronic tobacco dependence, vaping 5 History of anxiety/depression 6 History of immunodeficiency disorder 7 Irritable bowel syndrome 8 History of migraine 9 Fibromyalgia. 10 History of chronic back pain Plan: The patient was seen and evaluated by Dr. Cruz CT scan of the chest and labs reviewed Right-sided chest tube remains in place, left-sided chest tube removed 11/14/2020. Currently on cefipime Titrate down the FiO2 as tolerated Continue Lovenox, IV Solu-Medrol, vitamin supplement We will continue to follow I, the cosigning physician, performed a history & physical examination of the patient. Lungs sounds bilateral scattered rhonchi, crackles in the posterior bases. Maintaining O2 saturations in the 90s on 10 L high flow nasal cannula. I discussed the assessment and plan of care with my nurse practitioner, Cecelia Salgado. I attest to the above note as dictated by her.
[2020-11-16] MEDS: SODIUM CHLORIDE 0.9% 1,000 ML IV SCH (15:16)
--- NOTE | 2020-11-16 16:02 | P.CONS ---
History of Present Illness - Chief Complaint Medical debility - History of Present Illness I had the opportunity to see patient for inpatient rehab consultation with regard to medical debility. Patient admitted to [facility] November 03 with respiratory failure, Covid positive pneumonia. Seen by Dr. Peck. Patient has a 60 serial chest x-ray for the pneumonia. No decrease in pneumonia as well as right pneumothorax. CTA negative for PE. Patient has started therapies. PT reports minimal moderate assistance for bed mobility and minimal assistance for gait 25 feet roller walker. OT reports maximal assistance for upper dressing and bathing and total assistance for lower dressing. Two-person total assistance for toileting and moderate assistance for transfer. Previous functional history as elicited from patient: 40-year-old right-handed white female who lives with significant other in a 2 floor apartment. Patient unemployed. Previously independent with cooking, laundry, driving, standing shower and gait without device. PCP Dr. Gonzalez. 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 Review of Systems Review of systems: ENT: Denies sneezes or discharge. Eyes: Denies discharge or photophobia. Cardiac: Denies chest pain or palpitation. Pulmonary: Mild shortness of breath. Breast: Denies discharge or lumps. Gastrointestinal: Denies nausea, emesis, constipation, diarrhea. Genitourinary: Denies discharge or frequency. Musculoskeletal: Denies muscle or bone aches. Neurologic: Mild to moderate generalized weakness. Endocrine: Denies shakes or sweats. Oncology: Denies cancers. Dermatologic: Denies rash, itching, pruritus. ALLERGY/immunology: Denies sneezes, rashes. Past Medical History Past Medical History: Asthma, Fibromyalgia, GERD/Reflux, GI Bleed Additional Past Medical History / Comment(s): Pt tested covid + on 10/30/20 at [facility]. Other hx: Primary immunodeficiency, antral ulcers, GI bleed associated with excedrin/noninflammatory medication use, anemia, IBS, migraines, back pain, TMJ, seasonal allergies. History of Any Multi-Drug Resistant Organisms: None Reported Past Surgical History: Breast Surgery, Ear Surgery, Uterine Ablation Additional Past Surgical History / Comment(s): EGDs, colonoscopies, bilateral breast augmentation, septoplasty, L ear trauma/reattached. Past Anesthesia/Blood Transfusion Reactions: No Reported Reaction, Motion Sickness Additional Past Anesthesia/Blood Transfusion Reaction / Comm: Pt has received blood in past without reaction. Smoking Status: Former smoker, Vaper - Past Family History Father Additional Family Medical History / Comment(s): Father at age 51 from accidental drug overdose. Mother Family Medical History: Fibromyalgia Additional Family Medical History / Comment(s): Mother is alive at age 61 with history of primary immunodeficiency. Brother(s) Additional Family Medical History / Comment(s): Patient has one brother with history of alcohol abuse. Patient does not have any sisters. Patient has 2 children with no major medical problems. Medications and Allergies Home Medications Medication Instructions Recorded Confirmed Type Cetirizine HCl [Zyrtec] 10 mg PO DAILY PRN 02/26/20 11/04/20 History DULoxetine HCL [Cymbalta] 60 mg PO DAILY 02/26/20 11/04/20 History Butalb/Acetaminophen/Caffeine 1 tab PO BID PRN 08/13/20 11/04/20 History [Fioricet 50-325-40] buPROPion XL [Wellbutrin XL] 150 mg PO DAILY 08/14/20 11/04/20 History Acetaminophen Tab [Tylenol] 650 mg PO Q6HR PRN tab 08/16/20 11/04/20 Rx Sucralfate [Carafate] 1 gm PO ACHS #60 tab 08/16/20 11/04/20 Rx ARIPiprazole [Abilify] 7.5 mg PO DAILY 11/04/20 11/04/20 History Albuterol Sulfate [Proair Hfa] 2 puff INHALATION RT-Q4H PRN 11/04/20 11/04/20 History Benzonatate [Tessalon Perles] 200 mg PO TID 11/04/20 11/04/20 History Cholecalciferol [Vitamin D3 (25 25 mcg PO DAILY 11/04/20 11/04/20 History Mcg = 1000 Iu)] Cyclobenzaprine [Flexeril] 5 - 10 mg PO TID PRN 11/04/20 11/04/20 History Fluticasone Nasal Celoron [Flonase 1 - 2 spr EA NOSTRIL Q48H PRN 11/04/20 11/04/20 History Nasal Celoron] Fluticasone/Salmeterol [Advair 1 puff INHALATION RT-BID 11/04/20 11/04/20 History 250-50 Diskus] Pantoprazole Sodium [Protonix] 40 mg PO DAILY 11/04/20 11/04/20 History Propranolol LA [Inderal LA] 60 mg PO DAILY 11/04/20 11/04/20 History Triamcinolone 0.1% Cream [Kenalog 1 applic TOPICAL BID 11/04/20 11/04/20 History 0.1% Cream] busPIRone HCl [Buspar] 10 mg PO BID PRN 11/04/20 11/04/20 History Allergies Allergy/AdvReac Type Severity Reaction Status Date / Time adhesive Allergy Rash/Hives Verified 11/04/20 09:49 latex Allergy Rash/Hives Verified 11/04/20 09:49 prochlorperazine Allergy Unknown Verified 11/04/20 09:49 [From Compazine] ciprofloxacin [From Cipro] AdvReac Hallucinati Verified 11/04/20 09:49 ons citalopram [From Celexa] AdvReac Suicidal Verified 11/04/20 09:49 thoughts diazepam [From Valium] AdvReac Hallucinati Verified 11/04/20 09:49 ons/Anxiety fluoxetine [From Prozac] AdvReac Suicidal Verified 11/04/20 09:49 thoughts metoclopramide [From Reglan] AdvReac Hallucinati Verified 11/04/20 09:49 ons/Anxiety paroxetine [From Paxil] AdvReac Suicidal Verified 11/04/20 09:49 thoughts Penicillins AdvReac Nausea & Verified 11/04/20 09:49 Vomiting Physical Exam Vitals: Vital Signs Temp Pulse Resp BP Pulse Ox 11/16/20 14:00 125 H 24 111/76 88 L 11/16/20 13:00 130 H 26 H 116/68 87 L 11/16/20 12:00 124 H 22 95/62 93 L 11/16/20 11:00 104 H 18 106/68 100 11/16/20 10:00 112 H 21 107/73 100 11/16/20 09:00 120 H 28 H 116/72 84 L 11/16/20 08:00 97.8 F 76 19 127/82 98 11/16/20 07:00 109 H 28 H 116/75 96 11/16/20 06:00 77 18 112/69 98 11/16/20 05:00 74 16 111/80 93 L 11/16/20 04:00 84 28 H 118/76 94 L 11/16/20 03:00 95 19 122/86 95 11/16/20 02:00 112 H 23 116/84 94 L 11/16/20 01:00 104 H 22 115/82 93 L 11/16/20 00:00 97.8 F 95 28 H 107/81 99 11/15/20 23:43 98 22 107/81 98 11/15/20 23:09 97 11/15/20 23:00 124 H 44 H 107/81 92 L 11/15/20 22:00 112 H 23 118/79 95 11/15/20 21:00 115 H 22 122/81 97 11/15/20 20:00 98 F 113 H 22 125/85 97 11/15/20 19:00 126 H 26 H 122/85 96 11/15/20 18:00 118 H 20 129/91 98 11/15/20 17:00 111 H 18 127/91 96 11/15/20 16:00 18 110/85 Intake and Output 11/16/20 11/16/20 11/16/20 06:59 14:59 22:59 Intake Total 180 460 Output Total 595 645 Balance -415 -185 Intake: IV 180 160 0.9 NS flush 160 60 Cefepime 2 gm In Sodium 100 Chloride 0.9% 100 ml @ 25 mls/hr IVPB Q8H [facility] Rx#: [id number] Sodium Chloride 0.9% 1, 20 000 ml @ 20 mls/hr IV . Q24H [facility] Rx#:[id number] Oral 300 Output: Urine 595 645 Other: Voiding Method Indwelling Catheter Indwelling Catheter Skin: Good color, texture, turgor. General: Medium build and comfortable appearance. Head: Normocephalic, atraumatic. Eyes: Symmetric. Pupils equal round. Ears: Symmetric. Hearing within normal limits. Mouth: Clear. Neck: Supple. Carotid without bruit. Cardiac: Regular rate and rhythm. Lungs: Clear anteriorly and posteriorly. Abdomen: Soft active nontender. Extremities: Normal tone. Neurological: Mental status: Alert, cooperative, pleasant, talkative. Cranial nerves: Symmetric facial tone and trapezius. Motor: Normal strength and isolation all 4 limbs. Sensation: Intact throughout. DTRs: Symmetric and equal throughout. Mobility: Did not attempt to sit or stand on my own. Results CBC & Chem 7: 11/16/20 03:28 11/16/20 03:28 Labs: Abnormal Lab Results - Last 24 Hours (Table) 11/15/20 11/16/20 11/16/20 Range/Units 16:36 03:28 03:28 WBC 15.4 H (3.8-10.6) k/uL RBC 3.49 L (3.80-5.40) m/uL Hgb 9.4 L (11.4-16.0) gm/dL Hct 30.8 L (34.0-46.0) % MCHC 30.5 L (31.0-37.0) g/dL RDW 17.7 H (11.5-15.5) % Neutrophils # 14.5 H (1.3-7.7) k/uL Lymphocytes # 0.4 L (1.0-4.8) k/uL D-Dimer 3.42 H (<0.60) mg/L FEU Sodium (137-145) mmol/L Potassium (3.5-5.1) mmol/L Chloride (98-107) mmol/L Carbon Dioxide (22-30) mmol/L BUN (7-17) mg/dL Creatinine (0.52-1.04) mg/dL POC Glucose (mg/dL) 119 H (75-99) mg/dL Alkaline Phosphatase (38-126) U/L Lactate Dehydrogenase (313-618) U/L 11/16/20 11/16/20 11/16/20 Range/Units 03:28 07:19 11:29 WBC (3.8-10.6) k/uL RBC (3.80-5.40) m/uL Hgb (11.4-16.0) gm/dL Hct (34.0-46.0) % MCHC (31.0-37.0) g/dL RDW (11.5-15.5) % Neutrophils # (1.3-7.7) k/uL Lymphocytes # (1.0-4.8) k/uL D-Dimer (<0.60) mg/L FEU Sodium 134 L (137-145) mmol/L Potassium 3.4 L (3.5-5.1) mmol/L Chloride 94 L (98-107) mmol/L Carbon Dioxide 36 H (22-30) mmol/L BUN 26 H (7-17) mg/dL Creatinine 0.36 L (0.52-1.04) mg/dL POC Glucose (mg/dL) 102 H 169 H (75-99) mg/dL Alkaline Phosphatase 129 H (38-126) U/L Lactate Dehydrogenase 1424 H (313-618) U/L Assessment and Plan (1) Asthma with acute exacerbation Current Visit: Yes Status: Acute Code(s): J45.901 - UNSPECIFIED ASTHMA WITH (ACUTE) EXACERBATION SNOMED Code(s): 663232035 (2) Pneumonia due to COVID-19 virus Current Visit: Yes Status: Acute Code(s): U07.1 - COVID-19; J12.82 - Pneumonia due to coronavirus disease 2019 SNOMED Code(s): 426909852005534404 (3) Acute anemia Current Visit: No Status: Acute Code(s): D64.9 - ANEMIA, UNSPECIFIED SNOMED Code(s): 291010646 Plan: Impression: As above and included history of GI bleed. Comments and plan: At this time follow PT and OT with yourself. Note respiratory failure and pneumonia aren't necessarily rehab diagnoses. This was relaxed last year but most insurances are return to previous rules with regard to rehab appropriate diagnoses.
[2020-11-16 17:33] LABS: Glucose,Whole Blood 123 mg/dL (75-99)
[2020-11-16 20:16] LABS: Glucose,Whole Blood 93 mg/dL (75-99)
[2020-11-16] MEDS: ALPRAZolam 0.5 MG TAB PO PRN (20:25)
[2020-11-16] MEDS: MELATONIN 3 MG TABLET PO SCH (20:26)
[2020-11-17] MEDS: methylPREDNISolone SOD SUCCI 125 MG/2 ML VIAL IV SCH ×5 (01:24→22:57)
[2020-11-17] MEDS: CEFEPIME 2 GM in SODIUM CHLORIDE 0.9% 100 ML IVPB SCH ×3 (01:24→17:28)
[2020-11-17] MEDS: HYDROmorphone 1 MG/ML 1 ML SYRINGE IVP PRN ×4 (01:34→22:58)
[2020-11-17 04:15] LABS: Anisocytosis Slight; Basophils % (A) 0 %; Eosinophils % (A) 0 %; HCT 26.7 % (34.0-46.0); HGB 8.6 gm/dL (11.4-16.0); Hypochromasia Moderate; Lymphocytes # (A) 0.3 k/uL (1.0-4.8); Lymphocytes % (A) 2 %; MCHC 32.1 g/dL (31.0-37.0); MCV 87.2 fL (80.0-100.0); Mean Platelet Volume 9.4; Monocytes # (A) 0.5 k/uL (0-1.0); Monocytes % (A) 4 %; Neutrophils # (A) 12.1 k/uL (1.3-7.7); Neutrophils % (A) 93 %; Platelet Count 181 k/uL (150-450); Poikilocytosis Slight; RBC 3.07 m/uL (3.80-5.40); RDW 17.4 % (11.5-15.5)
[2020-11-17 04:35] LABS: ALT 18 U/L (4-34); AST 20 U/L (14-36); African American GFR (CKD) >90 (>60 ml/min/1.73 sqM); Albumin 3.5 g/dL (3.5-5.0); Alkaline Phosphatase 113 U/L (38-126); Anion Gap 7 mmol/L; Blood Urea Nitrogen 27 mg/dL (7-17); C Reactive Protein 5.1 mg/L (<10.0); Calcium 9.5 mg/dL (8.4-10.2); Carbon Dioxide 31 mmol/L (22-30); Chloride 97 mmol/L (98-107); Creatine Kinase 24 U/L (30-135); Glucose 112 mg/dL (74-99); LDH 1096 U/L (313-618); Non-African American GFR(CKD) >90 (>60 ml/min/1.73 sqM); Potassium 4.2 mmol/L (3.5-5.1); Sodium 135 mmol/L (137-145); Total Bilirubin 0.6 mg/dL (0.2-1.3)
[2020-11-17 06:56] LABS: Glucose,Whole Blood 114 mg/dL (75-99)
[2020-11-17] MEDS: INSULIN ASPART (NovoLOG) 100 UNIT/ML VIAL SQ SCH ×4 (06:57→21:29)
[2020-11-17] MEDS: SUCRALFATE 1 GM TAB PO SCH ×4 (06:59→21:28)
[2020-11-17] MEDS: ALBUTEROL HFA INHALER INHALATION PRN ×2 (07:58→11:51)
[2020-11-17] MEDS: PANTOPRAZOLE 40 MG/10 ML VIAL IVP SCH ×2 (08:35→21:28)
[2020-11-17] MEDS: ASCORBIC ACID 500 MG TAB PO SCH (08:36)
[2020-11-17] MEDS: ENOXAPARIN 30 MG/0.3 ML SYRINGE SQ SCH ×2 (08:36→21:29)
[2020-11-17] MEDS: ZINC SULFATE 220 MG CAP PO SCH (08:36)
[2020-11-17] MEDS: CHOLECALCIFEROL 25 MCG (1000 IU) TABLET PO SCH (08:37)
[2020-11-17] MEDS: ARIPiprazole 5 MG TAB PO SCH (08:37)
[2020-11-17] MEDS: buPROPion XL 150 MG TAB.ER.24H PO SCH (08:37)
[2020-11-17] MEDS: DULoxetine HCL 60 MG CAPSULE.DR PO SCH (08:37)
[2020-11-17] MEDS: HYDROcodone/APAP 5-325MG 1 EACH TAB PO PRN (09:15)
--- NOTE | 2020-11-17 09:40 | XR ---
EXAMINATION TYPE: XR chest 1V portable DATE OF EXAM: 11/17/2020 COMPARISON: Chest x-ray 11/15/2020 HISTORY: Chest tube, abnormal chest x-ray TECHNIQUE: Single frontal view of the chest is obtained. FINDINGS: Right-sided chest tube remains in place. Minimal right apical pneumothorax is present. The re are overlying artifacts. Left subclavian central venous catheter shows the distal tip coursing tow ards the right atrium. Bilateral airspace disease persists. There is no sizable pneumothorax. Cardiom ediastinal silhouette is stable. IMPRESSION: Findings similar to prior exam, correlate for pneumonia.
[2020-11-17 09:43] LABS: Ferritin 32.6 ng/mL (10.0-291.0)
[2020-11-17] MEDS: METOPROLOL TARTRATE 25 MG TAB PO SCH ×2 (10:27→21:29)
--- NOTE | 2020-11-17 11:19 | P.PN ---
Subjective Progress Note Date: 11/17/20 Principal diagnosis: CoVID 19 pneumonia This is a very pleasant 39-year-old female patient with a known history of GI bleeding with 2 nonbleeding antral ulcers per EGD, migraines, anxiety/depression, severe back pain, fibromyalgia, primary immunodeficiency disorder, irritable bowel syndrome, tobacco dependence, mild intermittent chronic bronchial asthma maintained on Advair. Presently 2 weeks ago she developed increasing shortness of breath cough congestion chills fever. She subsequently tested positive for CoVID 19 on 10/30/2020. Her shortness of breath continued to worsen she presented here to the emergency room last evening. Chest x-ray shows bilateral patchy infiltrates consistent with CoVID pneumonia as does CTA of the chest. No evidence of pulmonary embolism. She is seen today in consultation in the emergency room. She is currently sitting up at the bedside. She is quite hoarse, quite dyspneic on minimal exertion and conversation. Requiring 15 L high flow nasal cannula with nonrebreather mask to maintain O2 saturations in the 90s. White count 9.4. Hemoglobin 8.6. Platelets 284. Lymphocytes 0.6. D-dimer 1.06. Sodium 135. Potassium 4.0. Creatinine 0.88. Glucose 159. LDH 2067, C-reactive protein 320. The patient is seen today 11/05/2020 in follow-up in the intensive care unit. She is currently sitting up in bed. Awake and alert. Remains in mild respiratory distress. She is currently on AirVo at 60 L/m and 90% FiO2 along with a nonrebreather mask to maintain O2 saturations in the high 80s low 90s. Chest x-ray continues to show bilateral patchy infiltrates. Blood culture reveals no growth. White count 11.8. Hemoglobin 7.7. Lymphocytes 0.3. D- dimer 1.95. Sodium 135. Potassium 3.8. Creatinine 0.45. LDH 2243. C-react maciel protein 254. She did receive to tocilizumab. Remains on vitamin supplements, IV Solu-Medrol, Lovenox. The patient is seen today 11/06/2020 in follow-up in the intensive care unit. She is currently resting fairly comfortably in bed. She is on BiPAP at 12/5 and 100% FiO2 to maintain O2 saturations in the low 90s. Chest x-ray continues to revealed patchy bilateral lung infiltrates more so on the bases. She has 0.9 normal saline at 75 ML's per hour. Her preliminary blood cultures are positive for Staphylococcus aureus. White count 8.0. Hemoglobin 7.2. Lymphocytes 0.1. D-dimer 4.74. Sodium 137. Potassium 3.5. Creatinine 0.50. LDH 1845. C- reactive protein 69.8. She's been initiated on vancomycin and cefazolin. Continued on Lovenox, IV Solu Medrol, vitamin supplements. She did receive to tocilizumab. On 11/14/2020, the patient is extubated. We'll managed to extubate the patient yesterday and she is currently on 100% nonrebreather facemask. She is awake and alert and she is following commands and answering questions. She is off the Precedex. She is still on fentanyl which is running at 2 mcg/kg per minute. This is managed to control her pain. Note that the patient had bilateral pneumothoraces and she has bilateral chest tubes in place. The right-sided ch est tube is showing intermittent air leak and there is a tiny right apical pneumothorax. The left-sided chest tube has no air leak and output is minimal in the left lung is well expanded without any evidence of pneumothorax. Nevertheless, I suspect that the patient may have potentially superinfection. She has grown MSSA in his sputum and in the pleural fluid and in her blood. She is on IV cefazolin. Nevertheless, her LDH is on the rise and the chest x-ray showing some new bilateral pulmonary infiltration and the possibility of a superinfection with gram-negative is possible. As such, I need to broaden her antibiotic coverage. Meanwhile, she is resting comfortably in bed on 100% nonrebreather facemask pH is communicating. She remains on IV Solu-Medrol. Inflammatory markers from today show a rise in the LDH which is currently up to 2274 and the CRP is up to 21. He d-dimer currently is at 5.67. The white cell count is up to 19.1. Hemoglobin is at 8.9. She is still nothing by mouth for now. No signs of any alcohol withdrawal well. No agitation. No focal neurological deficit. She seems to be much more comfortable at this point in time. The patient is seen today 11/15/2020 in follow-up in the intensive care unit. She is currently sitting up in bed. Awake and alert in no acute distress. She remains on 15 L high flow nasal cannula to maintain O2 saturations in the 90s. Chest x-ray continues to show bilateral infiltrates. There is a small right apical pneumothorax. Right-sided chest tube remains in place. Left-sided chest tube was removed yesterday. She did have MSSA in the sputum, pleural fluid and blood cultures. Follow-up blood cultures are revealing no growth. She remains on cefepime. 9NS @ KVO. She remains on IV Solu-Medrol, Lovenox 30 mg subcu taneous twice a day, vitamin supplements. The patient is seen today 11/16/2020 in follow-up in the intensive care unit. She is awake and alert in no acute distress. Sitting up in bed. She is down to 10 L high flow nasal cannula and maintaining O2 saturations in the low 90s. CAT scan of the chest ruled out pulmonary embolism. There is still a 20% right- sided pneumothorax. Right-sided chest tube remains in good position. No significant air leak. Only about 20 ML's output per shift. Positive for MSSA as were her blood cultures and sputum cultures. She remains on cefepime. She did receive tocilizumab. She is continued on IV Solu-Medrol, Lovenox, vitamin supplements. The patient is seen today 11/17/2020 in follow-up in intensive care unit. She is currently sitting up in bed. Awake and alert in no acute distress. Currently maintaining O2 saturation in the 90s on 8 L high flow nasal cannula. She did receive tocilizumab. Right-sided chest tube remains in place to suction. No air leak noted. Chest x-ray reveals minimal right apical pneumothorax. Still some bilateral airspace disease. Stable compared to previous. She remains on Lovenox, IV Solu-Medrol, bronchodilators, vitamin supplements. She is status post 1 unit of packed red blood cells this admission. Current hemoglobin 8.6. White count 13.0. Lymphocytes 0.3. D- dimer 2.23. Sodium 135. Potassium 4.2. Creatinine 0.34. LDH 1096. C- reactive protein 5.1. Objective - Vital Signs Vital signs: Vital Signs Temp 97.5 F L 11/17/20 09:00 Pulse 137 H 11/17/20 09:00 Resp 26 H 11/17/20 09:00 BP 147/131 11/17/20 09:00 Pulse Ox 88 L 11/17/20 09:00 Intake & Output 11/16/20 11/17/20 11/17/20 18:59 06:59 18:59 Intake Total 540 540 40 Output Total 645 800 0 Balance -105 -260 40 Intake: IV 240 240 40 0.9 NS flush 60 Cefepime 2 gm In Sodium 100 Chloride 0.9% 100 ml @ 25 mls/hr IVPB Q8H [facility] Rx#: [id number] Sodium Chloride 0.9% 1, 80 240 40 000 ml @ 20 mls/hr IV . Q24H [facility] Rx#:[id number] Oral 300 300 Output: Chest Tube Drainage 0 Chest Tube Right 0 Urine 645 800 0 Other: Voiding Method Indwelling Catheter Indwelling Catheter # Voids 1 1 1 ABP, PAP, CO, CI - Last Documented Arterial Blood Pressure 119/75 - Exam GENERAL EXAM: Alert, pleasant 39-year-old female patient, currently on high flow nasal cannula at 8 L, in mild respiratory distress. HEAD: Normocephalic. EYES: Normal reaction of pupils, equal size. NOSE: Clear with pink turbinates. THROAT: No erythema or exudates. NECK: No masses, no JVD. CHEST: No chest wall deformity. Right-sided chest tube remains in place with intermittent leak. Left-sided chest tube removed. LUNGS: Equal air entry with bilateral scattered rhonchi, crackles in the posterior bases. CVS: S1 and S2 normal with no audible murmur, regular rhythm. ABDOMEN: No hepatosplenomegaly, normal bowel sounds, no guarding or rigidity. SPINE: No scoliosis or deformity SKIN: No rashes CENTRAL NERVOUS SYSTEM: No focal deficits, tone is normal in all 4 extremities. EXTREMITIES: There is no peripheral edema. No clubbing, no cyanosis. Peripheral pulses are intact. - Labs CBC & Chem 7: 11/17/20 03:30 11/17/20 03:30 Labs: Abnormal Lab Results - Last 24 Hours (Table) 11/16/20 11/16/20 11/17/20 Range/Units 11:29 17:30 03:30 WBC 13.0 H (3.8-10.6) k/uL RBC 3.07 L (3.80-5.40) m/uL Hgb 8.6 L (11.4-16.0) gm/dL Hct 26.7 L (34.0-46.0) % RDW 17.4 H (11.5-15.5) % Neutrophils # 12.1 H (1.3-7.7) k/uL Lymphocytes # 0.3 L (1.0-4.8) k/uL D-Dimer (<0.60) mg/L FEU Sodium (137-145) mmol/L Chloride (98-107) mmol/L Carbon Dioxide (22-30) mmol/L BUN (7-17) mg/dL Creatinine (0.52-1.04) mg/dL Glucose (74-99) mg/dL POC Glucose (mg/dL) 169 H 123 H (75-99) mg/dL Lactate Dehydrogenase (313-618) U/L Creatine Kinase (30-135) U/L Total Protein (6.3-8.2) g/dL 11/17/20 11/17/20 11/17/20 Range/Units 03:30 03:30 06:44 WBC (3.8-10.6) k/uL RBC (3.80-5.40) m/uL Hgb (11.4-16.0) gm/dL Hct (34.0-46.0) % RDW (11.5-15.5) % Neutrophils # (1.3-7.7) k/uL Lymphocytes # (1.0-4.8) k/uL D-Dimer 2.23 H (<0.60) mg/L FEU Sodium 135 L (137-145) mmol/L Chloride 97 L (98-107) mmol/L Carbon Dioxide 31 H (22-30) mmol/L BUN 27 H (7-17) mg/dL Creatinine 0.34 L (0.52-1.04) mg/dL Glucose 112 H (74-99) mg/dL POC Glucose (mg/dL) 114 H (75-99) mg/dL Lactate Dehydrogenase 1096 H (313-618) U/L Creatine Kinase 24 L (30-135) U/L Total Protein 6.0 L (6.3-8.2) g/dL Assessment and Plan Assessment: 1 Acute hypoxemic respiratory failure secondary to acute CoVID 19 pneumonia. Did receive tocilizumab. The patient did require intubation mechanical ventilatory support. She also developed bilateral pneumothoraces. Right-sided chest tube remains in place. Left-sided chest tube had been removed. 2 MSSA bacteremia, sputum, pleural fluid and currently on cefepime 3 Anemia in a patient with a known history of nonbleeding ulcers with previous EGD and GI bleed, received 1 unit of packed red blood cells this admission. Current hemoglobin 8.6 4 History of chronic tobacco dependence, vaping 5 History of anxiety/depression 6 History of immunodeficiency disorder 7 Irritable bowel syndrome 8 History of migraine 9 Fibromyalgia. 10 History of chronic back pain Plan: The patient was seen and evaluated by Dr. Cruz Right-sided chest tube remains in place, taken off wall suction Follow up chest x-ray in 4 hours Currently on cefipime Titrate down the FiO2 as tolerated Continue Lovenox, IV Solu-Medrol, vitamin supplement We will continue to follow I, the cosigning physician, performed a history & physical examination of the patient. Lungs sounds bilateral scattered rhonchi, crackles in the posterior bases. Maintaining O2 saturations in the 90s on 10 L high flow nasal cannula. I discussed the assessment and plan of care with my nurse practitioner, Cecelia Salgado. I attest to the above note as dictated by her.
[2020-11-17 11:49] LABS: Glucose,Whole Blood 141 mg/dL (75-99)
[2020-11-17] MEDS: SODIUM CHLORIDE 0.9% 1,000 ML IV SCH (11:51)
--- NOTE | 2020-11-17 12:40 | P.PN ---
Subjective Progress Note Date: 11/17/20 HISTORY OF PRESENT ILLNESS This is a 39-year-old female patient of Dr. Gonzalez with past medical history of GI bleed in 2008, July 2020 was admitted for GI bleed secondary to 2 no nbleeding antral ulcers requiring transfusion 2 units packed RBCs, tobacco use, alcohol abuse, recurrent depression, generalized anxiety disorder. Patient was diagnosed with COVID-19 on October 30. She complains of increasing shortness of breath, cough, congestion, fever and chills and hoarseness. She continued to worsen significantly over the past 2 days. She also complains of bloody sputum production. Patient came into [facility] emergency [facility] for evaluation. Temperature 98.3, heart rate 102, respiratory rate 40, blood pressure 95/64, pulse ox 71%. EKG was a sinus rhythm no acute ST elevation. W BC 9.4, hemoglobin 8.6, platelet count 284. Sodium 135, potassium 2.8, chloride 102, CO2 21, BUN 19 creatinine 0.88. Blood sugar 92. AST 71, ALT 24, alkaline phosphatase 264 [place] phosphatase 264, LDH 2067, CA reactive protein 320.8. Lactic acid 3.1. CT angiogram of the chest reveals no evidence pulmonary embolism. Severe pulmonary interstitial and airspace edema. Chest x-ray reveals pulmonary interstitial pneumonia worse than recent exam. Some airspace component. Patient is status post 2 L of IV fluids, potassium replacement, Dilaudid, patient seen by pulmonary medicine and started on Tocilizumab. 11/05: Patient remains in the intensive care unit. She is a nonrebreather mask and AorVp and can maintain a pulse ox in the 90s. If she removes these, patient follows less than 70s. She is very anxious today and has many questions. She does have large number of psychiatric medications which have been resumed. We will also add and Xanax twice daily as needed. She has been afebrile, heart rate 89, blood pressure 116/79, pulse ox 95%. Repeat blood work reveals WBC 11.8, hemoglobin 7.7, platelet count 243. D-dimer 1.95. Sodium 135, electrolyt es otherwise normal, BUN 18 creatinine 0.45. Blood sugars running between 117- 129. AST 48, ALT 18, alkaline phosphatase 218, LDH 2243. C-reactive protein 254. Patient had 2 blood cultures, one is showing no growth at 24 hours and the second obtained at 2240 showing gram-positive cocci. She was started on vancomycin. 11/06: Patient remains in ICU, still on a BiPAP treatments,, continuously, terri barber did not have any meals for the past 72 hours secondary to hypoxemia and air hunger without the reading device. Patient has not slept well at all, cytokinin markers are elevated, blood culture growing Staphylococcus from specimen collected November 03 are pending sensitivity. Patient currently is on IV cefazolin, IV vancomycin, followed by infectious disease. So Medrol 60 mg every 6 hours, most of her oral medications cannot be complied upon secondary to hypoxemia event removed briefly. Hemoglobin at 7.2, blood gas shows pCO2 54, PaO2 of 67, 7.39 pH. Double basic count of under 10, creatinine of 0.5, LDH 1845, alkaline phosphatase 194. Albumin low at 2.6, blood pressure stable,Heart rate of 114, blood pressure of 135/90. Pulse ox 85-86 at BiPAP treatments. 11/07 yesterday afternoon, patient required placement of right chest tube secondary to spontaneous pneumothorax placed by the ER doctor,, patient has worsening respiratory status, and was intubated by the ER physician currently with tidal volume of 40, PEEP of 10, assist control rate of 24, FiO2 of 80%. There is residual small pneumothorax right side, there is a left subclavian triple-lumen placed by Dr. Harrington today. There is consult for nutrition, has an OG tube, for which feedings would be started once completed. Chest x-ray shows bilateral diffuse infiltrates, creatinine of 0.4, LDH of 1630, CRP of 36 platelet count 132, hemoglobin 7.3 11/08: Patient remains in the intensive care unit, intubated and on mechanical ventilation with FiO2 100%, tidal volume 400 and PEEP of 10. Patient is currently on sedation. Repeat chest x-ray today reveals increase in size of right-sided pneumothorax since previous measuring of 3.5 cm today compared to 1.2 cm yesterday. Severe interstitial infiltrates throughout the lungs bilaterally slightly increased from previous. A second right-sided chest tube was placed today by Dr. Davison. Repeat blood work reveals WBC 5.2, hemoglobin 6.2, platelet count 133. Sodium 141, potassium 3.5, chloride 107, CO2 35, BUN 24 and creatinine 0.46. Blood sugar 132. Alkaline phosphatase 154. D-dimer 6.35. Patient is ordered for transfusion 1 unit packed RBCs today. Blood culture is MSSA and patient is on Ancef 2 g every 8 hours. Pleural fluid culture in progress. Patient has been afebrile, heart rate low 100s, respiratory rate 27, blood pressure 135/93, pulse ox 96%. Patient will be started on tube feedings today. 11/09: She remains intubated and on mechanical ventilation. She is on both Nimbex and Propofol. She remains intubated and on mechanical ventilation with tidal volume 400, FiO2 65 and PEEP of 10. Repeat chest x-ray reveals improving right apical pneumothorax measuring less than 5%. Stable bilateral diffuse infiltrates. WBC 8, hemoglobin 7.8 status post 1 unit of packed RBCs. Platelet count 123. Sodium 141, potassium 3.9, chloride 105, CO2 37. BUN 28 creatinine 0.51. Blood sugar 142. Inflammatory markers are improving with d-dimer 7.09, fibrinogen 159, LDH 1249, C-reactive protein 8.3, CK 23. Patient is on Kefzol for antibiotics. She remains with right-sided chest tube. She has been a febrile, heart rate 80, blood pressure 116/78, pulse ox 92%. Patient is not requiring vasopressors. 11/10: Initial chest x-ray this morning revealed interval development of 50% left-sided pneumothorax. Patient is status post chest tube placement on the left by Dr. Davison. Repeat chest x-ray revealed bilateral apical pneumothoraces measuring less than 5. Stable on the right improved on the left. Diffuse bilateral pulmonary parenchymal disease stable. Patient remains intubated and on mechanical ventilation. She is now off Nimbex. Tidal volume 500, FiO2 60% and PEEP of 8. Patient is on tube feedings. Repeat blood work reveals WBC 7.5, hemoglobin 7.7, platelet count 126. Sodium 139, potassium 3.3 and was replaced, chloride 98, CO2 38, BUN 28 creatinine 0.41. Cultures are running between 134-150. D-dimer 0.05, LDH 1338, CK 65, C-reactive protein less than 5. Sputum culture is in progress. Blood cultures no growth at 24 hours. All previous blood cultures are showing no growth. IgG is low at 471. Request a nurse contact Dr. Davison about IVIG infusion. 11/11: She remains in the intensive care unit, intubated and on mechanical ventilation with tidal volume 400, FiO2 50% and PEEP of 6. Patient now has bilateral chest tubes in place for bilateral pneumothoraces with right-sided air leak. Weaning will be attempted today. She has been afebrile, heart rate 95, blood pressure 148/81, pulse ox 96%. Repeat blood work reveals W BC 5.8, hemoglobin 10.3, platelet count 101. D-dimer 6.03. C-reactive protein less than 5, CK 44. LDH 1234. Sodium 133, potassium 3.8, chloride 94, CO2 38, BUN 22 and creatinine 0.32. Blood culture, sputum culture, pleural fluid culture also positive for MSSA. Patient is covered with Kefzol. 11/12: Patient remains in intensive care unit, intubated and on mechanical ventilation with tidal volume 400, FiO2 50% and PEEP of 6. She failed weaning trial yesterday and she was desatting and back on propofol as well as Precedex and fentanyl drips were added. Patient has been afebrile, heart rate 86, blood pressure 134/68, pulse ox 90%, respiratory rate 24. Repeat blood work reveals WBC 17.3, hemoglobin 9, platelets 164. Sodium 134, potassium 3.6, chloride 97, CO2 30, BUN 19 and creatinine 0.33. Blood sugars running between 127 and 141. Alkaline phosphatase 149. LDH 1437. C-reactive protein 6.4. Repeat chest x-ray reveals slight interval increase in the right-sided pneumothorax compared to prior exam. Correlate for pneumonia, edema or ARDS. She remains with bilateral chest tubes in place. Prognosis remains guarded. 11/13: Patient remains in the intensive care unit. She has been successfully extubated this morning and is on 15 L high flow nasal cannula. She has been afebrile, heart rate in the 80s, blood pressure 109/75. Repeat blood work reveals W BC 10.7, hemoglobin 7.3, platelet count 116. D-dimer 5.54. Sodium 134, potassium 4.0, chloride 97, CO2 33, BUN 20, creatinine 0.29. Blood sugars running between 119 and 143. LDH 1057, CK 22, C-reactive protein less than 5. Chest x-ray reveals small right apical pneumothorax slightly smaller. Right chest tube. No change in patchy airspace opacities in the lung right greater than left. Left-sided chest tube unchanged in position and resolution of left small apical pneumothorax. The patient's mental status is not back to baseline. She is somewhat confused. 11/14: Patient remains in the intensive care unit. PO 80s on NRB. Patient encouraged to keep mask on face. She has been afebrile, HR 80s - 90s, RR 28, BP 129/95. Repeat blood work reveals WBC 19.1, HGB 8.9, PLT 152. Sodium 134, K 3.7, Chloride 94, CO2 31. BUN 17, Creat 0.26. Ferritin 68.9. AST 49, ALT 17, AP149. LDH 2274. CK 61, CRP 29.4. CXR reveals stable diffuse infiltrates and small right apical pheumothorax. 11/15: Patient remains in the intensive care unit. Her breathing status appears to be stable. Pulse ox is running anywhere between 86 and 100% on 15 L high flow nasal cannula. She is complaining of right-sided pain in her chest secondary to the chest tube. Patient does have Dilaudid which she is receiving every 3 hours and we will add in Gunpowder. The left-sided chest tube was removed yesterday. She has been afebrile, heart rate in the 90s, blood pressure 116/74. Chest x-ray reveals similar findings to prior. WBC 14.0, hemoglobin 8.8, platelet count 171. D-dimer 3.61. Sodium 134, potassium 4.3, chloride 96, CO2 33, BUN 25 and creatinine 0.34. Blood sugars are controlled. Alkaline phosphatase 128. LDH 1634. CK 49. C-reactive protein 21.8. No plan to palpation of the intensive care unit today. We'll plan for Seymour catheter to be removed. 11/16: Patient remains in intensive care unit. She is now on high flow nasal cannula at 10 L. She is having some sinus tachycardia especially with eating breakfast this morning. She is on Dilaudid IV every 3 hours and Gunpowder was added yesterday and will encourage to use Gunpowder today and try and wean off Dilaudid. She continues to have pain at the chest tube site. Chest x-ray this morning reveals no significant interval change. Right-sided pneumothorax is likely decreased. CTA of the chest reveals no evidence of pulmonary embolism. Right- sided pneumothorax. Right chest tube in good position in the major fissure. 11/17:Patient remains in the intensive care unit. She is tachycardic up to 137 this morning and pulmonary medicine started her on metoprolol. She's been afebrile, respiratory rate in the 20s, blood pressure 117/83, pulse ox is 88-97% on 8 L nasal cannula high flow. Repeat blood work reveals to be BBC 13, hemoglobin 8.6, platelet count 181. D-dimer 2.23. Sodium 135. Potassium 4.2, chloride 97, CO2 31, BUN 27 creatinine 0.34. Blood sugars running between 93 and 141. Liver function tests are normal. LDH 1096. CK 24, CK 5.1. Repeat chest x-ray reveals similar findings, correlate for pneumonia. Right-sided chest tube remains in place which may be discontinued later today. Patient is complaining of significant pain to the right chest tube site and using Dilaudid around the clock. She states and Gunpowder does not help. BuSpar changed to scheduled twice daily. Patient has been evaluated by Dr. Faith and not appropriate for inpatient rehab. REVIEW OF SYSTEMS Constitutional: No fever, no chills, no night sweats. No weight change. Repor ts weakness, Reports fatigue. No daytime sleepiness. EENT: No headache. No blurred vision or double vision, no loss of vision. No loss of Hearing, no ringing in the ears, no dizziness. No nasal drainage or congestion. No epistaxis. No sore throat. Lungs: Reports shortness of breath, Reports cough, no sputum production. Reports wheezing. Cardiovascular: No chest pain, no lower extremity edema. No palpitations. No paroxysmal nocturnal dyspnea. No orthopnea. No lightheadedness or dizziness. No syncopal episodes. Abdominal: No abdominal pain. No nausea, vomiting. No diarrhea. No con stipation. No bloody or tarry stools. No loss of appetite. Genitourinary: No dysuria, increased frequency, urgency. No urinary retention. Musculoskeletal: No myalgias. No muscle weakness, no gait dysfunction, no frequent falls. No back pain. No neck pain. Integumentary: No wounds, no lesions. Neurologic: No aphasia. No facial droop. No change in mentation. No head injury. No headache. No paralysis. No paresthesia. Psychiatric: No depression. No anxiety. Endocrine: No abnormal blood sugars. PHYSICAL EXAMINATION Gen: This is a 39-year-old female. Patient is resting in the ICU bed and appears to be comfortable at rest with 8 L high flow nasal cannula. Patient is eating breakfast andbe tachycardic. HEENT: Head is atraumatic, normocephalic. Pupils equal, round. Sclerae is anicteric. NECK: Supple. No JVD. No lymphadenopathy. No thyromegaly. Oral mucous membranes are dry. LUNGS: Scattered rhonchi, crackles in the bases. No intercostal retractions. HEART: Regular rate and rhythm. No murmur. ABDOMEN: Soft. Bowel sounds are present. No masses. No tenderness. Seymour catheter in place. EXTREMITIES: No pedal edema. No calf tenderness. Dorsalis pedis palpable bilaterally. NEUROLOGICAL: Patient is awake, alert and oriented x3. Cranial nerves 2 through 12 are grossly intact. ASSESSMENT AND PLAN 1. Acute hypoxic respiratory failure secondary to acute Covid 19 pneumonia, MSSA pneumonia, POA, successfully extubated . Consult with pulmonary medicine appreciated. Status post Tocilizumab. Patient intubated on November 06. Continue Lovenox 30 mg subcu twice daily, Solu-Medrol 60 mg IV push every 6 hours, zinc and vitamin supplements. Continue cefepime IV piggyback every 8 hours. 2. Right sided pneumothorax requiring chest tube 11/06 and 11/08. Left-sided chest tube has been removed. Patient is on IV Dilaudid for pain control we will add in Gunpowder to start transitioning to oral medications. 3. Acute exacerbation of mild intermittent bronchial asthma. Continue Ventolin inhaler 4 times daily as needed. 4. Left-sided pneumothorax requiring chest tube placed on 11/10. 5. Primary immunodeficiency. 6. Chronic anemia most likely due to history of bleeding ulcers and alcohol abuse. 7. Tobacco use and dependence including taping. 8. Daily alcohol use/abuse. Patient apparently has had no alcohol intake for 7 days. Monitor closely for DTs 9. Recurrent depression and generalized anxiety disorder. Continue Abilify 7.5 mg daily, Wellbutrin 150 mg daily, BuSpar 10 mg changed to scheduled twice daily, continue Cymbalta 60 mg daily. 10. Acute anemia secondary to sepsis without blood loss. S/p transfusion of 1 unit of packed RBCs. 11. Migraine headaches. Continue Fioricet as needed. Hold Inderal 60 mg daily. 12. Sepsis with MSSA bacteremia, POA. Continue Kafzol. 13. Moderate protein calorie malnutrition. Patient maintain on tube feedings 14. Gastroesophageal reflux disease with history of bleeding ulcers. Continue Protonix 40 mg daily and Carafate 1 g 4 times daily. 15. DVT prophylaxis. Lovenox. DISCHARGE PLAN To be determined: Home or subacute rehab. Impression and plan of care have been directed as dictated by the signing physician. Isabel Samayoa nurse practitioner acting as scribe for signing physician. Objective - Vital Signs Vital signs: Vital Signs Temp 97.5 F L 11/17/20 09:00 Pulse 137 H 11/17/20 09:00 Resp 26 H 11/17/20 09:00 BP 147/131 11/17/20 09:00 Pulse Ox 88 L 11/17/20 09:00 Intake & Output 11/16/20 11/17/20 11/17/20 18:59 06:59 18:59 Intake Total 540 540 40 Output Total 645 800 0 Balance -105 -260 40 Intake: IV 240 240 40 0.9 NS flush 60 Cefepime 2 gm In Sodium 100 Chloride 0.9% 100 ml @ 25 mls/hr IVPB Q8H SHERRON Rx#: [id number] Sodium Chloride 0.9% 1, 80 240 40 000 ml @ 20 mls/hr IV . Q24H SHERRON Rx#:[id number] Oral 300 300 Output: Chest Tube Drainage 0 Chest Tube Right 0 Urine 645 800 0 Other: Voiding Method Indwelling Catheter Indwelling Catheter # Voids 1 1 1 ABP, PAP, CO, CI - Last Documented Arterial Blood Pressure 119/75 - Labs CBC & Chem 7: 11/17/20 03:30 11/17/20 03:30 Labs: Abnormal Lab Results - Last 24 Hours (Table) 11/16/20 11/16/20 11/17/20 Range/Units 11:29 17:30 03:30 WBC 13.0 H (3.8-10.6) k/uL RBC 3.07 L (3.80-5.40) m/uL Hgb 8.6 L (11.4-16.0) gm/dL Hct 26.7 L (34.0-46.0) % RDW 17.4 H (11.5-15.5) % Neutrophils # 12.1 H (1.3-7.7) k/uL Lymphocytes # 0.3 L (1.0-4.8) k/uL D-Dimer (<0.60) mg/L FEU Sodium (137-145) mmol/L Chloride (98-107) mmol/L Carbon Dioxide (22-30) mmol/L BUN (7-17) mg/dL Creatinine (0.52-1.04) mg/dL Glucose (74-99) mg/dL POC Glucose (mg/dL) 169 H 123 H (75-99) mg/dL Lactate Dehydrogenase (313-618) U/L Creatine Kinase (30-135) U/L Total Protein (6.3-8.2) g/dL 11/17/20 11/17/20 11/17/20 Range/Units 03:30 03:30 06:44 WBC (3.8-10.6) k/uL RBC (3.80-5.40) m/uL Hgb (11.4-16.0) gm/dL Hct (34.0-46.0) % RDW (11.5-15.5) % Neutrophils # (1.3-7.7) k/uL Lymphocytes # (1.0-4.8) k/uL D-Dimer 2.23 H (<0.60) mg/L FEU Sodium 135 L (137-145) mmol/L Chloride 97 L (98-107) mmol/L Carbon Dioxide 31 H (22-30) mmol/L BUN 27 H (7-17) mg/dL Creatinine 0.34 L (0.52-1.04) mg/dL Glucose 112 H (74-99) mg/dL POC Glucose (mg/dL) 114 H (75-99) mg/dL Lactate Dehydrogenase 1096 H (313-618) U/L Creatine Kinase 24 L (30-135) U/L Total Protein 6.0 L (6.3-8.2) g/dL
--- NOTE | 2020-11-17 14:52 | XR ---
EXAMINATION TYPE: XR chest 1V portable DATE OF EXAM: 11/17/2020 COMPARISON: Chest x-ray 11/17/2020 HISTORY: Covid, chest tube TECHNIQUE: Single frontal view of the chest is obtained. FINDINGS: Right apical pneumothorax is again noted. Right-sided chest tube remains in place. No harden ge in the pleural-parenchymal changes within the lungs. Cardiac mediastinal silhouette is stable. Lef t subclavian central venous catheter is unchanged. IMPRESSION: No significant interval change.
[2020-11-17 17:18] LABS: Glucose,Whole Blood 111 mg/dL (75-99)
[2020-11-17] MEDS: KETOROLAC 15 MG/ML 1 ML VIAL IVP PRN (18:44)
[2020-11-17 20:52] LABS: Glucose,Whole Blood 120 mg/dL (75-99)
[2020-11-17] MEDS: MELATONIN 3 MG TABLET PO SCH (21:28)
[2020-11-17] MEDS: busPIRone HCl 10 MG TAB PO SCH (21:42)
[2020-11-18] MEDS: KETOROLAC 15 MG/ML 1 ML VIAL IVP PRN ×2 (01:09→21:29)
[2020-11-18] MEDS: CEFEPIME 2 GM in SODIUM CHLORIDE 0.9% 100 ML IVPB SCH ×3 (01:11→17:15)
[2020-11-18] MEDS: ALPRAZolam 0.5 MG TAB PO PRN ×2 (01:11→12:51)
[2020-11-18] MEDS: methylPREDNISolone SOD SUCCI 125 MG/2 ML VIAL IV SCH ×3 (05:30→17:14)
[2020-11-18] MEDS: HYDROmorphone 1 MG/ML 1 ML SYRINGE IVP PRN ×2 (06:07→14:20)
[2020-11-18 07:00] LABS: Glucose,Whole Blood 133 mg/dL (75-99)
[2020-11-18] MEDS: ENOXAPARIN 30 MG/0.3 ML SYRINGE SQ SCH ×2 (08:48→21:15)
[2020-11-18] MEDS: INSULIN ASPART (NovoLOG) 100 UNIT/ML VIAL SQ SCH ×4 (08:48→21:16)
[2020-11-18] MEDS: ARIPiprazole 5 MG TAB PO SCH (08:49)
[2020-11-18] MEDS: buPROPion XL 150 MG TAB.ER.24H PO SCH (08:50)
[2020-11-18] MEDS: ZINC SULFATE 220 MG CAP PO SCH (08:50)
[2020-11-18] MEDS: DULoxetine HCL 60 MG CAPSULE.DR PO SCH (08:50)
[2020-11-18] MEDS: CHOLECALCIFEROL 25 MCG (1000 IU) TABLET PO SCH (08:50)
[2020-11-18] MEDS: ASCORBIC ACID 500 MG TAB PO SCH (08:50)
[2020-11-18] MEDS: busPIRone HCl 10 MG TAB PO SCH ×2 (08:50→21:15)
[2020-11-18] MEDS: PANTOPRAZOLE 40 MG/10 ML VIAL IVP SCH ×2 (08:51→21:15)
[2020-11-18] MEDS: METOPROLOL TARTRATE 25 MG TAB PO SCH ×2 (08:58→16:11)
[2020-11-18] MEDS: SODIUM CHLORIDE 0.9% 1,000 ML IV SCH (08:59)
[2020-11-18] MEDS: SUCRALFATE 1 GM TAB PO SCH ×4 (09:04→21:15)
--- NOTE | 2020-11-18 10:26 | XR ---
EXAMINATION TYPE: XR chest 1V DATE OF EXAM: 11/18/2020 COMPARISON: Chest x-ray 11/17/2020 HISTORY: Chest tube TECHNIQUE: Single frontal view of the chest is obtained. FINDINGS: Findings are similar to prior exam. Small right apical pneumothorax is present and there i s right-sided chest tube. Bilateral airspace disease is noted, left subclavian central venous cathete r shows the distal tip in the right atrium. IMPRESSION: Findings are essentially stable.
[2020-11-18 11:35] LABS: Glucose,Whole Blood 139 mg/dL (75-99)
[2020-11-18 11:42] LABS: Anisocytosis Slight; Basophils % (A) 0 %; Eosinophils % (A) 0 %; HCT 30.5 % (34.0-46.0); HGB 9.9 gm/dL (11.4-16.0); Hypochromasia Marked; Lymphocytes # (A) 0.2 k/uL (1.0-4.8); Lymphocytes % (A) 2 %; MCH 28.5 pg (25.0-35.0); MCHC 32.3 g/dL (31.0-37.0); MCV 88.2 fL (80.0-100.0); Mean Platelet Volume 9.5; Monocytes # (A) 0.5 k/uL (0-1.0); Monocytes % (A) 3 %; Neutrophils # (A) 13.4 k/uL (1.3-7.7); Neutrophils % (A) 94 %; Platelet Count 241 k/uL (150-450); Poikilocytosis Slight; RBC 3.46 m/uL (3.80-5.40); RDW 17.3 % (11.5-15.5); WBC 14.2 k/uL (3.8-10.6)
[2020-11-18 11:50] LABS: ALT 19 U/L (4-34); AST 28 U/L (14-36); African American GFR (CKD) >90 (>60 ml/min/1.73 sqM); Albumin/Globulin Ratio 1.5; Alkaline Phosphatase 115 U/L (38-126); Anion Gap 11 mmol/L; Blood Urea Nitrogen 31 mg/dL (7-17); Calcium 10.1 mg/dL (8.4-10.2); Carbon Dioxide 26 mmol/L (22-30); Chloride 99 mmol/L (98-107); Globulin 2.7 g/dL; Glucose 152 mg/dL (74-99); Non-African American GFR(CKD) >90 (>60 ml/min/1.73 sqM); Potassium 4.6 mmol/L (3.5-5.1); Sodium 136 mmol/L (137-145); Total Bilirubin 0.6 mg/dL (0.2-1.3); Total Protein 6.7 g/dL (6.3-8.2)
[2020-11-18] MEDS: ALBUTEROL HFA INHALER INHALATION PRN ×3 (11:52→21:24)
[2020-11-18] MEDS: HYDROcodone/APAP 5-325MG 1 EACH TAB PO PRN (12:20)
--- NOTE | 2020-11-18 16:25 | P.PN ---
Subjective Progress Note Date: 11/18/20 Principal diagnosis: CoVID 19 pneumonia This is a very pleasant 39-year-old female patient with a known history of GI bleeding with 2 nonbleeding antral ulcers per EGD, migraines, anxiety/depression, severe back pain, fibromyalgia, primary immunodeficiency disorder, irritable bowel syndrome, tobacco dependence, mild intermittent chronic bronchial asthma maintained on Advair. Presently 2 weeks ago she developed increasing shortness of breath cough congestion chills fever. She subsequently tested positive for CoVID 19 on 10/30/2020. Her shortness of breath continued to worsen she presented here to the emergency room last evening. Chest x-ray shows bilateral patchy infiltrates consistent with CoVID pneumonia as does CTA of the chest. No evidence of pulmonary embolism. She is seen today in consultation in the emergency room. She is currently sitting up at the bedside. She is quite hoarse, quite dyspneic on minimal exertion and conversation. Requiring 15 L high flow nasal cannula with nonrebreather mask to maintain O2 saturations in the 90s. White count 9.4. Hemoglobin 8.6. Platelets 284. Lymphocytes 0.6. D-dimer 1.06. Sodium 135. Potassium 4.0. Creatinine 0.88. Glucose 159. LDH 2067, C-reactive protein 320. The patient is seen today 11/05/2020 in follow-up in the intensive care unit. She is currently sitting up in bed. Awake and alert. Remains in mild respiratory distress. She is currently on AirVo at 60 L/m and 90% FiO2 along with a nonrebreather mask to maintain O2 saturations in the high 80s low 90s. Chest x-ray continues to show bilateral patchy infiltrates. Blood culture reveals no growth. White count 11.8. Hemoglobin 7.7. Lymphocytes 0.3. D- dimer 1.95. Sodium 135. Potassium 3.8. Creatinine 0.45. LDH 2243. C-react maciel protein 254. She did receive to tocilizumab. Remains on vitamin supplements, IV Solu-Medrol, Lovenox. The patient is seen today 11/06/2020 in follow-up in the intensive care unit. She is currently resting fairly comfortably in bed. She is on BiPAP at 12/5 and 100% FiO2 to maintain O2 saturations in the low 90s. Chest x-ray continues to revealed patchy bilateral lung infiltrates more so on the bases. She has 0.9 normal saline at 75 ML's per hour. Her preliminary blood cultures are positive for Staphylococcus aureus. White count 8.0. Hemoglobin 7.2. Lymphocytes 0.1. D-dimer 4.74. Sodium 137. Potassium 3.5. Creatinine 0.50. LDH 1845. C- reactive protein 69.8. She's been initiated on vancomycin and cefazolin. Continued on Lovenox, IV Solu Medrol, vitamin supplements. She did receive to tocilizumab. On 11/14/2020, the patient is extubated. We'll managed to extubate the patient yesterday and she is currently on 100% nonrebreather facemask. She is awake and alert and she is following commands and answering questions. She is off the Precedex. She is still on fentanyl which is running at 2 mcg/kg per minute. This is managed to control her pain. Note that the patient had bilateral pneumothoraces and she has bilateral chest tubes in place. The right-sided ch est tube is showing intermittent air leak and there is a tiny right apical pneumothorax. The left-sided chest tube has no air leak and output is minimal in the left lung is well expanded without any evidence of pneumothorax. Nevertheless, I suspect that the patient may have potentially superinfection. She has grown MSSA in his sputum and in the pleural fluid and in her blood. She is on IV cefazolin. Nevertheless, her LDH is on the rise and the chest x-ray showing some new bilateral pulmonary infiltration and the possibility of a superinfection with gram-negative is possible. As such, I need to broaden her antibiotic coverage. Meanwhile, she is resting comfortably in bed on 100% nonrebreather facemask pH is communicating. She remains on IV Solu-Medrol. Inflammatory markers from today show a rise in the LDH which is currently up to 2274 and the CRP is up to 21. He d-dimer currently is at 5.67. The white cell count is up to 19.1. Hemoglobin is at 8.9. She is still nothing by mouth for now. No signs of any alcohol withdrawal well. No agitation. No focal neurological deficit. She seems to be much more comfortable at this point in time. The patient is seen today 11/15/2020 in follow-up in the intensive care unit. She is currently sitting up in bed. Awake and alert in no acute distress. She remains on 15 L high flow nasal cannula to maintain O2 saturations in the 90s. Chest x-ray continues to show bilateral infiltrates. There is a small right apical pneumothorax. Right-sided chest tube remains in place. Left-sided chest tube was removed yesterday. She did have MSSA in the sputum, pleural fluid and blood cultures. Follow-up blood cultures are revealing no growth. She remains on cefepime. 9NS @ KVO. She remains on IV Solu-Medrol, Lovenox 30 mg subcu taneous twice a day, vitamin supplements. The patient is seen today 11/16/2020 in follow-up in the intensive care unit. She is awake and alert in no acute distress. Sitting up in bed. She is down to 10 L high flow nasal cannula and maintaining O2 saturations in the low 90s. CAT scan of the chest ruled out pulmonary embolism. There is still a 20% right- sided pneumothorax. Right-sided chest tube remains in good position. No significant air leak. Only about 20 ML's output per shift. Positive for MSSA as were her blood cultures and sputum cultures. She remains on cefepime. She did receive tocilizumab. She is continued on IV Solu-Medrol, Lovenox, vitamin supplements. The patient is seen today 11/17/2020 in follow-up in intensive care unit. She is currently sitting up in bed. Awake and alert in no acute distress. Currently maintaining O2 saturation in the 90s on 8 L high flow nasal cannula. She did receive tocilizumab. Right-sided chest tube remains in place to suction. No air leak noted. Chest x-ray reveals minimal right apical pneumothorax. Still some bilateral airspace disease. Stable compared to previous. She remains on Lovenox, IV Solu-Medrol, bronchodilators, vitamin supplements. She is status post 1 unit of packed red blood cells this admission. Current hemoglobin 8.6. White count 13.0. Lymphocytes 0.3. D- dimer 2.23. Sodium 135. Potassium 4.2. Creatinine 0.34. LDH 1096. C- reactive protein 5.1. The patient is seen today 11/18/2020 in follow-up on the regular medical floor. She is currently sitting up in bed. Awake and alert in no acute distress. Feeling stronger today compared to yesterday. No worsening shortness of breath, cough or congestion. Maintaining good O2 saturations in the upper 90s on 5 L high flow nasal cannula. She's been afebrile. Hemodynamically stable. Right- sided chest tube remains in place. Small air leak still detected. Small right apical pneumothorax still present on chest x-ray. Follow-up blood cultures revealing no growth. White count 14.2. Hemoglobin 9.9. Lymphocytes 0.2. Sodium 136. Potassium 4.6. Creatinine 0.37. She remains on Lovenox, IV Solu- Medrol, vitamin supplements. Antibiotics in the form of cefepime. Objective - Vital Signs Vital signs: Vital Signs Temp 98.2 F 11/18/20 13:30 Pulse 104 H 11/18/20 13:30 Resp 18 11/18/20 13:30 BP 112/72 11/18/20 13:30 Pulse Ox 99 11/18/20 13:30 Intake & Output 11/17/20 11/18/20 11/18/20 18:59 06:59 18:59 Intake Total 380 80 Output Total 800 Balance -420 80 Weight 58.9 kg Intake: IV 280 80 Cefepime 2 gm In Sodium 100 Chloride 0.9% 100 ml @ 25 mls/hr IVPB Q8H [facility] Rx#: [id number] Sodium Chloride 0.9% 1, 180 80 000 ml @ 20 mls/hr IV . Q24H [facility] Rx#:[id number] Intake, IV Titration 100 Amount Cefepime 2 gm In Sodium 100 Chloride 0.9% 100 ml @ 25 mls/hr IVPB Q8H [facility] Rx#: [id number] Output: Chest Tube Drainage 0 Chest Tube Right 0 Urine 800 Other: Voiding Method Bedpan Bedpan Bedpan # Voids 1 1 ABP, PAP, CO, CI - Last Documented Arterial Blood Pressure 119/75 - Exam GENERAL EXAM: Alert, pleasant 39-year-old female patient, currently on high flow nasal cannula at 5 L, in mild respiratory distress. HEAD: Normocephalic. EYES: Normal reaction of pupils, equal size. NOSE: Clear with pink turbinates. THROAT: No erythema or exudates. NECK: No masses, no JVD. CHEST: No chest wall deformity. Right-sided chest tube remains in place with intermittent leak. Left-sided chest tube removed. LUNGS: Equal air entry with bilateral scattered rhonchi, crackles in the pos terior bases. CVS: S1 and S2 normal with no audible murmur, regular rhythm. ABDOMEN: No hepatosplenomegaly, normal bowel sounds, no guarding or rigidity. SPINE: No scoliosis or deformity SKIN: No rashes CENTRAL NERVOUS SYSTEM: No focal deficits, tone is normal in all 4 extremities. EXTREMITIES: There is no peripheral edema. No clubbing, no cyanosis. Peripheral pulses are intact. - Labs CBC & Chem 7: 11/18/20 08:56 11/18/20 08:56 Labs: Abnormal Lab Results - Last 24 Hours (Table) 11/17/20 11/17/20 11/18/20 Range/Units 17:06 20:51 06:53 WBC (3.8-10.6) k/uL RBC (3.80-5.40) m/uL Hgb (11.4-16.0) gm/dL Hct (34.0-46.0) % RDW (11.5-15.5) % Neutrophils # (1.3-7.7) k/uL Lymphocytes # (1.0-4.8) k/uL Sodium (137-145) mmol/L BUN (7-17) mg/dL Creatinine (0.52-1.04) mg/dL Glucose (74-99) mg/dL POC Glucose (mg/dL) 111 H 120 H 133 H (75-99) mg/dL 11/18/20 11/18/20 11/18/20 Range/Units 08:56 08:56 11:27 WBC 14.2 H (3.8-10.6) k/uL RBC 3.46 L (3.80-5.40) m/uL Hgb 9.9 L (11.4-16.0) gm/dL Hct 30.5 L (34.0-46.0) % RDW 17.3 H (11.5-15.5) % Neutrophils # 13.4 H (1.3-7.7) k/uL Lymphocytes # 0.2 L (1.0-4.8) k/uL Sodium 136 L (137-145) mmol/L BUN 31 H (7-17) mg/dL Creatinine 0.37 L (0.52-1.04) mg/dL Glucose 152 H (74-99) mg/dL POC Glucose (mg/dL) 139 H (75-99) mg/dL Assessment and Plan Assessment: 1 Acute hypoxemic respiratory failure secondary to acute CoVID 19 pneumonia. Did receive tocilizumab. The patient did require intubation mechanical ventilatory support. She also developed bilateral pneumothoraces. Right-sided chest tube remains in place. Left-sided chest tube had been removed. Currently on 5 L high flow nasal cannula. 2 MSSA bacteremia, sputum, pleural fluid and currently on cefepime. Follow-up blood culture revealing no growth. 3 Anemia in a patient with a known history of nonbleeding ulcers with previous EGD and GI bleed, received 1 unit of packed red blood cells this admission. Current hemoglobin 9.9 4 History of chronic tobacco dependence, vaping 5 History of anxiety/depression 6 History of immunodeficiency disorder 7 Irritable bowel syndrome 8 History of migraine 9 Fibromyalgia. 10 History of chronic back pain Plan: The patient was seen and evaluated by Dr. Cruz Chest x-ray and labs reviewed Right-sided chest tube remains in place, intermittently leak Follow up chest x-ray in a.m. Titrate down the FiO2 as tolerated Increase her activity as tolerated Continue Lovenox, IV Solu-Medrol, cefepime We will continue to follow I, the cosigning physician, performed a history & physical examination of the patient. Lungs sounds bilateral scattered rhonchi, crackles in the posterior bases. Maintaining O2 saturations in the 90s on 5 L high flow nasal cannula. I discussed the assessment and plan of care with my nurse practitioner, Cecelia Salgado. I attest to the above note as dictated by her.
--- NOTE | 2020-11-18 17:03 | P.PN ---
Subjective Progress Note Date: 11/18/20 HISTORY OF PRESENT ILLNESS This is a 39-year-old female patient of Dr. Gonzalez with past medical history of GI bleed in 2008, July 2020 was admitted for GI bleed secondary to 2 no nbleeding antral ulcers requiring transfusion 2 units packed RBCs, tobacco use, alcohol abuse, recurrent depression, generalized anxiety disorder. Patient was diagnosed with COVID-19 on October 30. She complains of increasing shortness of breath, cough, congestion, fever and chills and hoarseness. She continued to worsen significantly over the past 2 days. She also complains of bloody sputum production. Patient came into [facility] emergency center for evaluation. Temperature 98.3, heart rate 102, respiratory rate 40, blood pressure 95/64, pulse ox 71%. EKG was a sinus rhythm no acute ST elevation. W BC 9.4, hemoglobin 8.6, platelet count 284. Sodium 135, potassium 2.8, chloride 102, CO2 21, BUN 19 creatinine 0.88. Blood sugar 92. AST 71, ALT 24, alkaline phosphatase 264 [place] phosphatase 264, LDH 2067, CA reactive protein 320.8. Lactic acid 3.1. CT angiogram of the chest reveals no evidence pulmonary embolism. Severe pulmonary interstitial and airspace edema. Chest x-ray reveals pulmonary interstitial pneumonia worse than recent exam. Some airspace component. Patient is status post 2 L of IV fluids, potassium replacement, Dilaudid, patient seen by pulmonary medicine and started on Tocilizumab. 11/05: Patient remains in the intensive care unit. She is a nonrebreather mask and AorVp and can maintain a pulse ox in the 90s. If she removes these, patient follows less than 70s. She is very anxious today and has many questions. She does have large number of psychiatric medications which have been resumed. We will also add and Xanax twice daily as needed. She has been afebrile, heart rate 89, blood pressure 116/79, pulse ox 95%. Repeat blood work reveals WBC 11.8, hemoglobin 7.7, platelet count 243. D-dimer 1.95. Sodium 135, electrolyt es otherwise normal, BUN 18 creatinine 0.45. Blood sugars running between 117- 129. AST 48, ALT 18, alkaline phosphatase 218, LDH 2243. C-reactive protein 254. Patient had 2 blood cultures, one is showing no growth at 24 hours and the second obtained at 2240 showing gram-positive cocci. She was started on vancomycin. 11/06: Patient remains in ICU, still on a BiPAP treatments,, continuously, terri barber did not have any meals for the past 72 hours secondary to hypoxemia and air hunger without the reading device. Patient has not slept well at all, cytokinin markers are elevated, blood culture growing Staphylococcus from specimen collected November 03 are pending sensitivity. Patient currently is on IV cefazolin, IV vancomycin, followed by infectious disease. So Medrol 60 mg every 6 hours, most of her oral medications cannot be complied upon secondary to hypoxemia event removed briefly. Hemoglobin at 7.2, blood gas shows pCO2 54, PaO2 of 67, 7.39 pH. Double basic count of under 10, creatinine of 0.5, LDH 1845, alkaline phosphatase 194. Albumin low at 2.6, blood pressure stable,Heart rate of 114, blood pressure of 135/90. Pulse ox 85-86 at BiPAP treatments. 11/07 yesterday afternoon, patient required placement of right chest tube secondary to spontaneous pneumothorax placed by the ER doctor,, patient has worsening respiratory status, and was intubated by the ER physician currently with tidal volume of 40, PEEP of 10, assist control rate of 24, FiO2 of 80%. There is residual small pneumothorax right side, there is a left subclavian triple-lumen placed by Dr. Harrington today. There is consult for nutrition, has an OG tube, for which feedings would be started once completed. Chest x-ray shows bilateral diffuse infiltrates, creatinine of 0.4, LDH of 1630, CRP of 36 platelet count 132, hemoglobin 7.3 11/08: Patient remains in the intensive care unit, intubated and on mechanical ventilation with FiO2 100%, tidal volume 400 and PEEP of 10. Patient is currently on sedation. Repeat chest x-ray today reveals increase in size of right-sided pneumothorax since previous measuring of 3.5 cm today compared to 1.2 cm yesterday. Severe interstitial infiltrates throughout the lungs bilaterally slightly increased from previous. A second right-sided chest tube was placed today by Dr. Davison. Repeat blood work reveals WBC 5.2, hemoglobin 6.2, platelet count 133. Sodium 141, potassium 3.5, chloride 107, CO2 35, BUN 24 and creatinine 0.46. Blood sugar 132. Alkaline phosphatase 154. D-dimer 6.35. Patient is ordered for transfusion 1 unit packed RBCs today. Blood culture is MSSA and patient is on Ancef 2 g every 8 hours. Pleural fluid culture in progress. Patient has been afebrile, heart rate low 100s, respiratory rate 27, blood pressure 135/93, pulse ox 96%. Patient will be started on tube feedings today. 11/09: She remains intubated and on mechanical ventilation. She is on both Nimbex and Propofol. She remains intubated and on mechanical ventilation with tidal volume 400, FiO2 65 and PEEP of 10. Repeat chest x-ray reveals improving right apical pneumothorax measuring less than 5%. Stable bilateral diffuse infiltrates. WBC 8, hemoglobin 7.8 status post 1 unit of packed RBCs. Platelet count 123. Sodium 141, potassium 3.9, chloride 105, CO2 37. BUN 28 creatinine 0.51. Blood sugar 142. Inflammatory markers are improving with d-dimer 7.09, fibrinogen 159, LDH 1249, C-reactive protein 8.3, CK 23. Patient is on Kefzol for antibiotics. She remains with right-sided chest tube. She has been a febrile, heart rate 80, blood pressure 116/78, pulse ox 92%. Patient is not requiring vasopressors. 11/10: Initial chest x-ray this morning revealed interval development of 50% left-sided pneumothorax. Patient is status post chest tube placement on the left by Dr. Davison. Repeat chest x-ray revealed bilateral apical pneumothoraces measuring less than 5. Stable on the right improved on the left. Diffuse bilateral pulmonary parenchymal disease stable. Patient remains intubated and on mechanical ventilation. She is now off Nimbex. Tidal volume 500, FiO2 60% and PEEP of 8. Patient is on tube feedings. Repeat blood work reveals WBC 7.5, hemoglobin 7.7, platelet count 126. Sodium 139, potassium 3.3 and was replaced, chloride 98, CO2 38, BUN 28 creatinine 0.41. Cultures are running between 134-150. D-dimer 0.05, LDH 1338, CK 65, C-reactive protein less than 5. Sputum culture is in progress. Blood cultures no growth at 24 hours. All previous blood cultures are showing no growth. IgG is low at 471. Request a nurse contact Dr. Davison about IVIG infusion. 11/11: She remains in the intensive care unit, intubated and on mechanical ventilation with tidal volume 400, FiO2 50% and PEEP of 6. Patient now has bilateral chest tubes in place for bilateral pneumothoraces with right-sided air leak. Weaning will be attempted today. She has been afebrile, heart rate 95, blood pressure 148/81, pulse ox 96%. Repeat blood work reveals W BC 5.8, hemoglobin 10.3, platelet count 101. D-dimer 6.03. C-reactive protein less than 5, CK 44. LDH 1234. Sodium 133, potassium 3.8, chloride 94, CO2 38, BUN 22 and creatinine 0.32. Blood culture, sputum culture, pleural fluid culture also positive for MSSA. Patient is covered with Kefzol. 11/12: Patient remains in intensive care unit, intubated and on mechanical ventilation with tidal volume 400, FiO2 50% and PEEP of 6. She failed weaning trial yesterday and she was desatting and back on propofol as well as Precedex and fentanyl drips were added. Patient has been afebrile, heart rate 86, blood pressure 134/68, pulse ox 90%, respiratory rate 24. Repeat blood work reveals WBC 17.3, hemoglobin 9, platelets 164. Sodium 134, potassium 3.6, chloride 97, CO2 30, BUN 19 and creatinine 0.33. Blood sugars running between 127 and 141. Alkaline phosphatase 149. LDH 1437. C-reactive protein 6.4. Repeat chest x-ray reveals slight interval increase in the right-sided pneumothorax compared to prior exam. Correlate for pneumonia, edema or ARDS. She remains with bilateral chest tubes in place. Prognosis remains guarded. 11/13: Patient remains in the intensive care unit. She has been successfully extubated this morning and is on 15 L high flow nasal cannula. She has been afebrile, heart rate in the 80s, blood pressure 109/75. Repeat blood work reveals W BC 10.7, hemoglobin 7.3, platelet count 116. D-dimer 5.54. Sodium 134, potassium 4.0, chloride 97, CO2 33, BUN 20, creatinine 0.29. Blood sugars running between 119 and 143. LDH 1057, CK 22, C-reactive protein less than 5. Chest x-ray reveals small right apical pneumothorax slightly smaller. Right chest tube. No change in patchy airspace opacities in the lung right greater than left. Left-sided chest tube unchanged in position and resolution of left small apical pneumothorax. The patient's mental status is not back to baseline. She is somewhat confused. 11/14: Patient remains in the intensive care unit. PO 80s on NRB. Patient encouraged to keep mask on face. She has been afebrile, HR 80s - 90s, RR 28, BP 129/95. Repeat blood work reveals WBC 19.1, HGB 8.9, PLT 152. Sodium 134, K 3.7, Chloride 94, CO2 31. BUN 17, Creat 0.26. Ferritin 68.9. AST 49, ALT 17, AP149. LDH 2274. CK 61, CRP 29.4. CXR reveals stable diffuse infiltrates and small right apical pheumothorax. 11/15: Patient remains in the intensive care unit. Her breathing status appears to be stable. Pulse ox is running anywhere between 86 and 100% on 15 L high flow nasal cannula. She is complaining of right-sided pain in her chest secondary to the chest tube. Patient does have Dilaudid which she is receiving every 3 hours and we will add in [place]. The left-sided chest tube was removed yesterday. She has been afebrile, heart rate in the 90s, blood pressure 116/74. Chest x-ray reveals similar findings to prior. WBC 14.0, hemoglobin 8.8, platelet count 171. D-dimer 3.61. Sodium 134, potassium 4.3, chloride 96, CO2 33, BUN 25 and creatinine 0.34. Blood sugars are controlled. Alkaline phosphatase 128. LDH 1634. CK 49. C-reactive protein 21.8. No plan to palpation of the intensive care unit today. We'll plan for Seymour catheter to be removed. 11/16: Patient remains in intensive care unit. She is now on high flow nasal cannula at 10 L. She is having some sinus tachycardia especially with eating breakfast this morning. She is on Dilaudid IV every 3 hours and [place] was added yesterday and will encourage to use [place] today and try and wean off Dilaudid. She continues to have pain at the chest tube site. Chest x-ray this morning reveals no significant interval change. Right-sided pneumothorax is likely decreased. CTA of the chest reveals no evidence of pulmonary embolism. Right- sided pneumothorax. Right chest tube in good position in the major fissure. 11/17:Patient remains in the intensive care unit. She is tachycardic up to 137 this morning and pulmonary medicine started her on metoprolol. She's been afebrile, respiratory rate in the 20s, blood pressure 117/83, pulse ox is 88-97% on 8 L nasal cannula high flow. Repeat blood work reveals to be BBC 13, hemoglobin 8.6, platelet count 181. D-dimer 2.23. Sodium 135. Potassium 4.2, chloride 97, CO2 31, BUN 27 creatinine 0.34. Blood sugars running between 93 and 141. Liver function tests are normal. LDH 1096. CK 24, CK 5.1. Repeat chest x-ray reveals similar findings, correlate for pneumonia. Right-sided chest tube remains in place which may be discontinued later today. Patient is complaining of significant pain to the right chest tube site and using Dilaudid around the clock. She states and [place] does not help. BuSpar changed to scheduled twice daily. Patient has been evaluated by Dr. Faith and not appropriate for inpatient rehab. 11/18: A she seen today on the [facility] floor. Patient was complaining of migraine headaches and Fioricet was resumed. Patient is complaining of feeling so weak that she cannot move. She remains with chest tube in place. Breathing status seems to be stable. She is pulse ox seen in the 90s at 5 L high flow nasal cannula. Patient has been afebrile. Heart rate 99, blood pressure 126/80, pulse ox 97% on high flow 5 L. Repeat chest x-ray reveals stable findings. WBC 14.2, hemoglobin 9.9, sodium 136, potassium 4.6, creatinine 0.37. Patient is on cefepime as well as Lovenox, IV Solu-Medrol and supplements. REVIEW OF SYSTEMS Constitutional: No fever, no chills, no night sweats. No weight change. Reports weakness, Reports fatigue. No daytime sleepiness. EENT: Reports headache. No blurred vision or double vision, no loss of vision. No loss of Hearing, no ringing in the ears, no dizziness. No nasal drainage or congestion. No epistaxis. No sore throat. Lungs: Reports shortness of breath, Reports cough, no sputum production. Reports wheezing. Cardiovascular: No chest pain, no lower extremity edema. No palpitations. No paroxysmal nocturnal dyspnea. No orthopnea. No lightheadedness or dizziness. No syncopal episodes. Abdominal: No abdominal pain. No nausea, vomiting. No diarrhea. No constipation. No bloody or tarry stools. No loss of appetite. Genitourinary: No dysuria, increased frequency, urgency. No urinary retention. Musculoskeletal: No myalgias. No muscle weakness, no gait dysfunction, no frequent falls. No back pain. No neck pain. Integumentary: No wounds, no lesions. Neurologic: No aphasia. No facial droop. No change in mentation. No head injury. No headache. No paralysis. No paresthesia. Psychiatric: No depression. No anxiety. Endocrine: No abnormal blood sugars. PHYSICAL EXAMINATION Gen: This is a 39-year-old female. Patient is resting in bed and appears to be comfortable at rest with 8 L high flow nasal cannula. Patient is eating breakfast andbe tachycardic. HEENT: Head is atraumatic, normocephalic. Pupils equal, round. Sclerae is anicteric. NECK: Supple. No JVD. No lymphadenopathy. No thyromegaly. Oral mucous membranes are dry. LUNGS: Scattered rhonchi, crackles in the bases. No intercostal retractions. HEART: Regular rate and rhythm. No murmur. ABDOMEN: Soft. Bowel sounds are present. No masses. No tenderness. EXTREMITIES: No pedal edema. No calf tenderness. Dorsalis pedis palpable bilaterally. NEUROLOGICAL: Patient is awake, alert and oriented x3. Cranial nerves 2 through 12 are grossly intact. ASSESSMENT AND PLAN 1. Acute hypoxic respiratory failure secondary to acute Covid 19 pneumonia, MSSA pneumonia, POA, successfully extubated . Consult with pulmonary medicine appreciated. Status post Tocilizumab. Patient intubated on November 06. Continue Lovenox 30 mg subcu twice daily, Solu-Medrol 60 mg IV push every 6 hours, zinc and vitamin supplements. Continue cefepime IV piggyback every 8 hours. 2. Right sided pneumothorax requiring chest tube 11/06 and 11/08. Left-sided chest tube has been removed. Patient is on IV Dilaudid for pain control we will add in [place] to start transitioning to oral medications. Chest tube remains in place. 3. Acute exacerbation of mild intermittent bronchial asthma. Continue Ventolin inhaler 4 times daily as needed. 4. Left-sided pneumothorax requiring chest tube placed on 11/10. 5. Primary immunodeficiency. 6. Chronic anemia most likely due to history of bleeding ulcers and alcohol abuse. 7. Tobacco use and dependence including taping. 8. Daily alcohol use/abuse. Patient apparently has had no alcohol intake for 7 days. Monitor closely for DTs 9. Recurrent depression and generalized anxiety disorder. Continue Abilify 7.5 mg daily, Wellbutrin 150 mg daily, BuSpar 10 mg changed to scheduled twice daily, continue Cymbalta 60 mg daily. 10. Acute anemia secondary to sepsis without blood loss. S/p transfusion of 1 unit of packed RBCs. 11. Migraine headaches. Continue Fioricet as needed. Hold Inderal 60 mg daily. 12. Sepsis with MSSA bacteremia, POA. Continue Kafzol. 13. Moderate protein calorie malnutrition. Patient maintain on tube feedings 14. Gastroesophageal reflux disease with history of bleeding ulcers. Continue Protonix 40 mg daily and Carafate 1 g 4 times daily. 15. DVT prophylaxis. Lovenox. DISCHARGE PLAN To be determined: Home or subacute rehab. Impression and plan of care have been directed as dictated by the signing physician. Isabel Samayoa nurse practitioner acting as scribe for signing physician. Objective - Vital Signs Vital signs: Vital Signs Temp 97.6 F 11/18/20 09:20 Pulse 99 11/18/20 09:20 Resp 17 11/18/20 09:20 BP 126/80 11/18/20 09:20 Pulse Ox 97 11/18/20 09:20 Intake & Output 11/17/20 11/18/20 11/18/20 18:59 06:59 18:59 Intake Total 380 80 Output Total 800 Balance -420 80 Intake: IV 280 80 Cefepime 2 gm In Sodium 100 Chloride 0.9% 100 ml @ 25 mls/hr IVPB Q8H SHERRON Rx#: [id number] Sodium Chloride 0.9% 1, 180 80 000 ml @ 20 mls/hr IV . Q24H SHERRON Rx#:[id number] Intake, IV Titration 100 Amount Cefepime 2 gm In Sodium 100 Chloride 0.9% 100 ml @ 25 mls/hr IVPB Q8H SHERRON Rx#: [id number] Output: Chest Tube Drainage 0 Chest Tube Right 0 Urine 800 Other: Voiding Method Bedpan Bedpan # Voids 1 1 ABP, PAP, CO, CI - Last Documented Arterial Blood Pressure 119/75 - Labs CBC & Chem 7: 11/18/20 08:56 11/18/20 08:56 Labs: Abnormal Lab Results - Last 24 Hours (Table) 11/17/20 11/17/20 11/17/20 Range/Units 11:48 17:06 20:51 POC Glucose (mg/dL) 141 H 111 H 120 H (75-99) mg/dL 11/18/20 Range/Units 06:53 POC Glucose (mg/dL) 133 H (75-99) mg/dL
[2020-11-18 17:07] LABS: Glucose,Whole Blood 149 mg/dL (75-99)
[2020-11-18 20:04] LABS: Glucose,Whole Blood 108 mg/dL (75-99)
[2020-11-18] MEDS: MELATONIN 3 MG TABLET PO SCH (21:15)
[2020-11-19] MEDS: methylPREDNISolone SOD SUCCI 125 MG/2 ML VIAL IV SCH ×5 (00:02→23:01)
[2020-11-19] MEDS: CEFEPIME 2 GM in SODIUM CHLORIDE 0.9% 100 ML IVPB SCH ×3 (01:22→17:11)
[2020-11-19] MEDS: KETOROLAC 15 MG/ML 1 ML VIAL IVP PRN (03:10)
[2020-11-19 07:12] LABS: Glucose,Whole Blood 88 mg/dL (75-99)
[2020-11-19] MEDS: INSULIN ASPART (NovoLOG) 100 UNIT/ML VIAL SQ SCH ×4 (07:14→20:40)
[2020-11-19] MEDS: ALBUTEROL HFA INHALER INHALATION PRN ×3 (08:06→19:35)
[2020-11-19] MEDS: CHOLECALCIFEROL 25 MCG (1000 IU) TABLET PO SCH (08:37)
[2020-11-19] MEDS: SUCRALFATE 1 GM TAB PO SCH ×4 (08:37→20:41)
[2020-11-19] MEDS: busPIRone HCl 10 MG TAB PO SCH ×2 (08:38→20:39)
[2020-11-19] MEDS: ZINC SULFATE 220 MG CAP PO SCH (08:38)
[2020-11-19] MEDS: ASCORBIC ACID 500 MG TAB PO SCH (08:38)
[2020-11-19] MEDS: DULoxetine HCL 60 MG CAPSULE.DR PO SCH (08:38)
[2020-11-19] MEDS: METOPROLOL TARTRATE 25 MG TAB PO SCH ×2 (08:38→20:40)
[2020-11-19] MEDS: ARIPiprazole 5 MG TAB PO SCH (08:39)
[2020-11-19] MEDS: buPROPion XL 150 MG TAB.ER.24H PO SCH (08:39)
[2020-11-19] MEDS: ENOXAPARIN 30 MG/0.3 ML SYRINGE SQ SCH ×2 (08:39→20:40)
[2020-11-19] MEDS: PANTOPRAZOLE 40 MG/10 ML VIAL IVP SCH ×2 (08:40→20:39)
[2020-11-19] MEDS: HYDROcodone/APAP 5-325MG 1 EACH TAB PO PRN (08:40)
[2020-11-19] MEDS: SODIUM CHLORIDE 0.9% 1,000 ML IV SCH (09:58)
[2020-11-19 11:19] LABS: Glucose,Whole Blood 111 mg/dL (75-99)
[2020-11-19] MEDS: TOPIRAMATE 25 MG TAB PO SCH (12:50)
--- NOTE | 2020-11-19 15:33 | P.PN ---
Subjective Progress Note Date: 11/19/20 HISTORY OF PRESENT ILLNESS This is a 39-year-old female patient of Dr. Gonzalez with past medical history of GI bleed in 2008, July 2020 was admitted for GI bleed secondary to 2 no nbleeding antral ulcers requiring transfusion 2 units packed RBCs, tobacco use, alcohol abuse, recurrent depression, generalized anxiety disorder. Patient was diagnosed with COVID-19 on October 30. She complains of increasing shortness of breath, cough, congestion, fever and chills and hoarseness. She continued to worsen significantly over the past 2 days. She also complains of bloody sputum production. Patient came into [facility] emergency center for evaluation. Temperature 98.3, heart rate 102, respiratory rate 40, blood pressure 95/64, pulse ox 71%. EKG was a sinus rhythm no acute ST elevation. W BC 9.4, hemoglobin 8.6, platelet count 284. Sodium 135, potassium 2.8, chloride 102, CO2 21, BUN 19 creatinine 0.88. Blood sugar 92. AST 71, ALT 24, alkaline phosphatase 264 [place] phosphatase 264, LDH 2067, CA reactive protein 320.8. Lactic acid 3.1. CT angiogram of the chest reveals no evidence pulmonary embolism. Severe pulmonary interstitial and airspace edema. Chest x-ray reveals pulmonary interstitial pneumonia worse than recent exam. Some airspace component. Patient is status post 2 L of IV fluids, potassium replacement, Dilaudid, patient seen by pulmonary medicine and started on Tocilizumab. 11/05: Patient remains in the intensive care unit. She is a nonrebreather mask and AorVp and can maintain a pulse ox in the 90s. If she removes these, patient follows less than 70s. She is very anxious today and has many questions. She does have large number of psychiatric medications which have been resumed. We will also add and Xanax twice daily as needed. She has been afebrile, heart rate 89, blood pressure 116/79, pulse ox 95%. Repeat blood work reveals WBC 11.8, hemoglobin 7.7, platelet count 243. D-dimer 1.95. Sodium 135, electrolyt es otherwise normal, BUN 18 creatinine 0.45. Blood sugars running between 117- 129. AST 48, ALT 18, alkaline phosphatase 218, LDH 2243. C-reactive protein 254. Patient had 2 blood cultures, one is showing no growth at 24 hours and the second obtained at 2240 showing gram-positive cocci. She was started on vancomycin. 11/06: Patient remains in ICU, still on a BiPAP treatments,, continuously, terri barber did not have any meals for the past 72 hours secondary to hypoxemia and air hunger without the reading device. Patient has not slept well at all, cytokinin markers are elevated, blood culture growing Staphylococcus from specimen collected November 03 are pending sensitivity. Patient currently is on IV cefazolin, IV vancomycin, followed by infectious disease. So Medrol 60 mg every 6 hours, most of her oral medications cannot be complied upon secondary to hypoxemia event removed briefly. Hemoglobin at 7.2, blood gas shows pCO2 54, PaO2 of 67, 7.39 pH. Double basic count of under 10, creatinine of 0.5, LDH 1845, alkaline phosphatase 194. Albumin low at 2.6, blood pressure stable,Heart rate of 114, blood pressure of 135/90. Pulse ox 85-86 at BiPAP treatments. 11/07 yesterday afternoon, patient required placement of right chest tube secondary to spontaneous pneumothorax placed by the ER doctor,, patient has worsening respiratory status, and was intubated by the ER physician currently with tidal volume of 40, PEEP of 10, assist control rate of 24, FiO2 of 80%. There is residual small pneumothorax right side, there is a left subclavian triple-lumen placed by Dr. Harrington today. There is consult for nutrition, has an OG tube, for which feedings would be started once completed. Chest x-ray shows bilateral diffuse infiltrates, creatinine of 0.4, LDH of 1630, CRP of 36 platelet count 132, hemoglobin 7.3 11/08: Patient remains in the intensive care unit, intubated and on mechanical ventilation with FiO2 100%, tidal volume 400 and PEEP of 10. Patient is currently on sedation. Repeat chest x-ray today reveals increase in size of right-sided pneumothorax since previous measuring of 3.5 cm today compared to 1.2 cm yesterday. Severe interstitial infiltrates throughout the lungs bilaterally slightly increased from previous. A second right-sided chest tube was placed today by Dr. Davison. Repeat blood work reveals WBC 5.2, hemoglobin 6.2, platelet count 133. Sodium 141, potassium 3.5, chloride 107, CO2 35, BUN 24 and creatinine 0.46. Blood sugar 132. Alkaline phosphatase 154. D-dimer 6.35. Patient is ordered for transfusion 1 unit packed RBCs today. Blood culture is MSSA and patient is on Ancef 2 g every 8 hours. Pleural fluid culture in progress. Patient has been afebrile, heart rate low 100s, respiratory rate 27, blood pressure 135/93, pulse ox 96%. Patient will be started on tube feedings today. 11/09: She remains intubated and on mechanical ventilation. She is on both Nimbex and Propofol. She remains intubated and on mechanical ventilation with tidal volume 400, FiO2 65 and PEEP of 10. Repeat chest x-ray reveals improving right apical pneumothorax measuring less than 5%. Stable bilateral diffuse infiltrates. WBC 8, hemoglobin 7.8 status post 1 unit of packed RBCs. Platelet count 123. Sodium 141, potassium 3.9, chloride 105, CO2 37. BUN 28 creatinine 0.51. Blood sugar 142. Inflammatory markers are improving with d-dimer 7.09, fibrinogen 159, LDH 1249, C-reactive protein 8.3, CK 23. Patient is on Kefzol for antibiotics. She remains with right-sided chest tube. She has been a febrile, heart rate 80, blood pressure 116/78, pulse ox 92%. Patient is not requiring vasopressors. 11/10: Initial chest x-ray this morning revealed interval development of 50% left-sided pneumothorax. Patient is status post chest tube placement on the left by Dr. Davison. Repeat chest x-ray revealed bilateral apical pneumothoraces measuring less than 5. Stable on the right improved on the left. Diffuse bilateral pulmonary parenchymal disease stable. Patient remains intubated and on mechanical ventilation. She is now off Nimbex. Tidal volume 500, FiO2 60% and PEEP of 8. Patient is on tube feedings. Repeat blood work reveals WBC 7.5, hemoglobin 7.7, platelet count 126. Sodium 139, potassium 3.3 and was replaced, chloride 98, CO2 38, BUN 28 creatinine 0.41. Cultures are running between 134-150. D-dimer 0.05, LDH 1338, CK 65, C-reactive protein less than 5. Sputum culture is in progress. Blood cultures no growth at 24 hours. All previous blood cultures are showing no growth. IgG is low at 471. Request a nurse contact Dr. Davison about IVIG infusion. 11/11: She remains in the intensive care unit, intubated and on mechanical ventilation with tidal volume 400, FiO2 50% and PEEP of 6. Patient now has bilateral chest tubes in place for bilateral pneumothoraces with right-sided air leak. Weaning will be attempted today. She has been afebrile, heart rate 95, blood pressure 148/81, pulse ox 96%. Repeat blood work reveals W BC 5.8, hemoglobin 10.3, platelet count 101. D-dimer 6.03. C-reactive protein less than 5, CK 44. LDH 1234. Sodium 133, potassium 3.8, chloride 94, CO2 38, BUN 22 and creatinine 0.32. Blood culture, sputum culture, pleural fluid culture also positive for MSSA. Patient is covered with Kefzol. 11/12: Patient remains in intensive care unit, intubated and on mechanical ventilation with tidal volume 400, FiO2 50% and PEEP of 6. She failed weaning trial yesterday and she was desatting and back on propofol as well as Precedex and fentanyl drips were added. Patient has been afebrile, heart rate 86, blood pressure 134/68, pulse ox 90%, respiratory rate 24. Repeat blood work reveals WBC 17.3, hemoglobin 9, platelets 164. Sodium 134, potassium 3.6, chloride 97, CO2 30, BUN 19 and creatinine 0.33. Blood sugars running between 127 and 141. Alkaline phosphatase 149. LDH 1437. C-reactive protein 6.4. Repeat chest x-ray reveals slight interval increase in the right-sided pneumothorax compared to prior exam. Correlate for pneumonia, edema or ARDS. She remains with bilateral chest tubes in place. Prognosis remains guarded. 11/13: Patient remains in the intensive care unit. She has been successfully extubated this morning and is on 15 L high flow nasal cannula. She has been afebrile, heart rate in the 80s, blood pressure 109/75. Repeat blood work reveals W BC 10.7, hemoglobin 7.3, platelet count 116. D-dimer 5.54. Sodium 134, potassium 4.0, chloride 97, CO2 33, BUN 20, creatinine 0.29. Blood sugars running between 119 and 143. LDH 1057, CK 22, C-reactive protein less than 5. Chest x-ray reveals small right apical pneumothorax slightly smaller. Right chest tube. No change in patchy airspace opacities in the lung right greater than left. Left-sided chest tube unchanged in position and resolution of left small apical pneumothorax. The patient's mental status is not back to baseline. She is somewhat confused. 11/14: Patient remains in the intensive care unit. PO 80s on NRB. Patient encouraged to keep mask on face. She has been afebrile, HR 80s - 90s, RR 28, BP 129/95. Repeat blood work reveals WBC 19.1, HGB 8.9, PLT 152. Sodium 134, K 3.7, Chloride 94, CO2 31. BUN 17, Creat 0.26. Ferritin 68.9. AST 49, ALT 17, AP149. LDH 2274. CK 61, CRP 29.4. CXR reveals stable diffuse infiltrates and small right apical pheumothorax. 11/15: Patient remains in the intensive care unit. Her breathing status appears to be stable. Pulse ox is running anywhere between 86 and 100% on 15 L high flow nasal cannula. She is complaining of right-sided pain in her chest secondary to the chest tube. Patient does have Dilaudid which she is receiving every 3 hours and we will add in [place]. The left-sided chest tube was removed yesterday. She has been afebrile, heart rate in the 90s, blood pressure 116/74. Chest x-ray reveals similar findings to prior. WBC 14.0, hemoglobin 8.8, platelet count 171. D-dimer 3.61. Sodium 134, potassium 4.3, chloride 96, CO2 33, BUN 25 and creatinine 0.34. Blood sugars are controlled. Alkaline phosphatase 128. LDH 1634. CK 49. C-reactive protein 21.8. No plan to palpation of the intensive care unit today. We'll plan for Seymour catheter to be removed. 11/16: Patient remains in intensive care unit. She is now on high flow nasal cannula at 10 L. She is having some sinus tachycardia especially with eating breakfast this morning. She is on Dilaudid IV every 3 hours and [place] was added yesterday and will encourage to use [place] today and try and wean off Dilaudid. She continues to have pain at the chest tube site. Chest x-ray this morning reveals no significant interval change. Right-sided pneumothorax is likely decreased. CTA of the chest reveals no evidence of pulmonary embolism. Right- sided pneumothorax. Right chest tube in good position in the major fissure. 11/17:Patient remains in the intensive care unit. She is tachycardic up to 137 this morning and pulmonary medicine started her on metoprolol. She's been afebrile, respiratory rate in the 20s, blood pressure 117/83, pulse ox is 88-97% on 8 L nasal cannula high flow. Repeat blood work reveals to be BBC 13, hemoglobin 8.6, platelet count 181. D-dimer 2.23. Sodium 135. Potassium 4.2, chloride 97, CO2 31, BUN 27 creatinine 0.34. Blood sugars running between 93 and 141. Liver function tests are normal. LDH 1096. CK 24, CK 5.1. Repeat chest x-ray reveals similar findings, correlate for pneumonia. Right-sided chest tube remains in place which may be discontinued later today. Patient is complaining of significant pain to the right chest tube site and using Dilaudid around the clock. She states and [place] does not help. BuSpar changed to scheduled twice daily. Patient has been evaluated by Dr. Faith and not appropriate for inpatient rehab. 11/18: A [facility]. Patient was complaining of migraine headaches and Fioricet was resumed. Patient is complaining of feeling so weak that she cannot move. She remains with chest tube in place. Breathing status seems to be stable. She is pulse ox seen in the 90s at 5 L high flow nasal cannula. Patient has been afebrile. Heart rate 99, blood pressure 126/80, pulse ox 97% on high flow 5 L. Repeat chest x-ray reveals stable findings. WBC 14.2, hemoglobin 9.9, sodium 136, potassium 4.6, creatinine 0.37. Patient is on cefepime as well as Lovenox, IV Solu-Medrol and supplements. 11/19: Patient is complaining of continued pain for which [place] changed to Percocet. She has been receiving Dilaudid around the clock. She remains with chest tube in place. Pulse ox is been 91-98% on 4 L nasal cannula. She has been afebrile, heart rate 96 but episodes of tachycardia with movement, blood pressure 99/64. Blood sugars are running between 88 and 149. Discussed discharge planning which will be to [facility] or [facility] most likely on Sunday. REVIEW OF SYSTEMS Constitutional: No fever, no chills, no night sweats. No weight change. Reports weakness, Reports fatigue. No daytime sleepiness. EENT: Reports headache. No blurred vision or double vision, no loss of vision. No loss of Hearing, no ringing in the ears, no dizziness. No nasal drainage or congestion. No epistaxis. No sore throat. Lungs: Reports shortness of breath, Reports cough, no sputum production. No wheezing. Cardiovascular: No chest pain, no lower extremity edema. No palpitations. No paroxysmal nocturnal dyspnea. No orthopnea. No lightheadedness or dizziness. No syncopal episodes. Abdominal: No abdominal pain. No nausea, vomiting. No diarrhea. No constipation. No bloody or tarry stools. No loss of appetite. Genitourinary: No dysuria, increased frequency, urgency. No urinary retention. Musculoskeletal: No myalgias. No muscle weakness, no gait dysfunction, no frequent falls. No back pain. No neck pain. Integumentary: No wounds, no lesions. Neurologic: No aphasia. No facial droop. No change in mentation. No head injury. No headache. No paralysis. No paresthesia. Psychiatric: No depression. No anxiety. Endocrine: No abnormal blood sugars. PHYSICAL EXAMINATION Gen: This is a 39-year-old female. Patient is resting in bed and appears to be comfortable at rest with 8 L high flow nasal cannula. Patient is eating breakfast andbe tachycardic. HEENT: Head is atraumatic, normocephalic. Pupils equal, round. Sclerae is anicteric. NECK: Supple. No JVD. No lymphadenopathy. No thyromegaly. Oral mucous membranes are dry. LUNGS: Scattered rhonchi, crackles in the bases. No intercostal retractions. HEART: Regular rate and rhythm. No murmur. ABDOMEN: Soft. Bowel sounds are present. No masses. No tenderness. EXTREMITIES: No pedal edema. No calf tenderness. Dorsalis pedis palpable bilaterally. NEUROLOGICAL: Patient is awake, alert and oriented x3. Cranial nerves 2 through 12 are grossly intact. ASSESSMENT AND PLAN 1. Acute hypoxic respiratory failure secondary to acute Covid 19 pneumonia, MSSA pneumonia, POA, successfully extubated . Consult with pulmonary medicine appreciated. Status post Tocilizumab. Patient intubated on November 06. Continue Lovenox 30 mg subcu twice daily, Solu-Medrol 60 mg IV push every 6 hours, zinc and vitamin supplements. Continue cefepime IV piggyback every 8 hours. 2. Right sided pneumothorax requiring chest tube 11/06 and 11/08. Patient is on IV Dilaudid for pain control, [place] changed to Percocet. Right chest tube remains in place. 3. Acute exacerbation of mild intermittent bronchial asthma. Continue Ventolin inhaler 4 times daily as needed. 4. Left-sided pneumothorax requiring chest tube placed on 11/10 and removed. 5. Primary immunodeficiency. 6. Chronic anemia most likely due to history of bleeding ulcers and alcohol abuse. 7. Tobacco use and dependence including taping. 8. Daily alcohol use/abuse. Patient apparently has had no alcohol intake for 7 days. Monitor closely for DTs 9. Recurrent depression and generalized anxiety disorder. Continue Abilify 7.5 mg daily, Wellbutrin 150 mg daily, BuSpar 10 mg changed to scheduled twice daily, continue Cymbalta 60 mg daily. 10. Acute anemia secondary to sepsis without blood loss. S/p transfusion of 1 unit of packed RBCs. 11. Migraine headaches. Continue Fioricet as needed. Hold Inderal 60 mg daily. 12. Sepsis with MSSA bacteremia, POA. Continue Kafzol. 13. Moderate protein calorie malnutrition. Patient maintain on tube feedings 14. Gastroesophageal reflux disease with history of bleeding ulcers. Continue Protonix 40 mg daily and Carafate 1 g 4 times daily. 15. DVT prophylaxis. Lovenox. DISCHARGE PLAN Subacute rehab on Sunday. Impression and plan of care have been directed as dictated by the signing physician. Isabel Samayoa nurse practitioner acting as scribe for signing physician. Objective - Vital Signs Vital signs: Vital Signs Temp 97.6 F 11/19/20 05:36 Pulse 96 11/19/20 05:36 Resp 15 11/19/20 05:36 BP 99/64 11/19/20 05:36 Pulse Ox 98 11/19/20 05:36 Intake & Output 11/18/20 11/19/20 11/19/20 18:59 06:59 18:59 Output Total 0 0 Balance 0 0 Weight 58.9 kg Output: Chest Tube Drainage 0 0 Chest Tube Right 0 0 Other: Voiding Method Bedpan Bedpan # Voids 8 1 # Bowel Movements 1 ABP, PAP, CO, CI - Last Documented Arterial Blood Pressure 119/75 - Labs CBC & Chem 7: 11/18/20 08:56 11/18/20 08:56 Labs: Abnormal Lab Results - Last 24 Hours (Table) 11/18/20 11/18/20 11/18/20 Range/Units 08:56 08:56 11:27 WBC 14.2 H (3.8-10.6) k/uL RBC 3.46 L (3.80-5.40) m/uL Hgb 9.9 L (11.4-16.0) gm/dL Hct 30.5 L (34.0-46.0) % RDW 17.3 H (11.5-15.5) % Neutrophils # 13.4 H (1.3-7.7) k/uL Lymphocytes # 0.2 L (1.0-4.8) k/uL Sodium 136 L (137-145) mmol/L BUN 31 H (7-17) mg/dL Creatinine 0.37 L (0.52-1.04) mg/dL Glucose 152 H (74-99) mg/dL POC Glucose (mg/dL) 139 H (75-99) mg/dL 11/18/20 11/18/20 Range/Units 16:22 20:02 WBC (3.8-10.6) k/uL RBC (3.80-5.40) m/uL Hgb (11.4-16.0) gm/dL Hct (34.0-46.0) % RDW (11.5-15.5) % Neutrophils # (1.3-7.7) k/uL Lymphocytes # (1.0-4.8) k/uL Sodium (137-145) mmol/L BUN (7-17) mg/dL Creatinine (0.52-1.04) mg/dL Glucose (74-99) mg/dL POC Glucose (mg/dL) 149 H 108 H (75-99) mg/dL
--- NOTE | 2020-11-19 16:03 | XR ---
EXAMINATION TYPE: XR chest 1V portable DATE OF EXAM: 11/19/2020 COMPARISON: Chest x-ray 11/18/2020 HISTORY: Right-sided chest tube, pneumothorax TECHNIQUE: Single frontal view of the chest is obtained. FINDINGS: Right-sided chest tube is again noted. Right-sided pneumothorax has increased in size and is estimated at least 50%. No other significant interval change. IMPRESSION: There has been interval increase in the right-sided pneumothorax. A Red level critical message alert has been initiated for David Murphy MD via the [employer] on 11/19/2020 4:01 PM. This message alert has been sent to David Murphy MD via [employer] preferences provided by the clinician for the receipt of Radiology Critical Findings. Message ID [id number].
[2020-11-19] MEDS: oxyCODONE-APAP 5-325MG 1 EACH TAB PO PRN ×2 (16:10→23:01)
[2020-11-19] MEDS: ALPRAZolam 0.5 MG TAB PO PRN ×2 (16:14→23:02)
[2020-11-19 16:53] LABS: Glucose,Whole Blood 94 mg/dL (75-99)
--- NOTE | 2020-11-19 17:20 | P.PN ---
Subjective Progress Note Date: 11/19/20 Principal diagnosis: CoVID 19 pneumonia This is a very pleasant 39-year-old female patient with a known history of GI bleeding with 2 nonbleeding antral ulcers per EGD, migraines, anxiety/depression, severe back pain, fibromyalgia, primary immunodeficiency disorder, irritable bowel syndrome, tobacco dependence, mild intermittent chronic bronchial asthma maintained on Advair. Presently 2 weeks ago she developed increasing shortness of breath cough congestion chills fever. She subsequently tested positive for CoVID 19 on 10/30/2020. Her shortness of breath continued to worsen she presented here to the emergency room last evening. Chest x-ray shows bilateral patchy infiltrates consistent with CoVID pneumonia as does CTA of the chest. No evidence of pulmonary embolism. She is seen today in consultation in the emergency room. She is currently sitting up at the bedside. She is quite hoarse, quite dyspneic on minimal exertion and conversation. Requiring 15 L high flow nasal cannula with nonrebreather mask to maintain O2 saturations in the 90s. White count 9.4. Hemoglobin 8.6. Platelets 284. Lymphocytes 0.6. D-dimer 1.06. Sodium 135. Potassium 4.0. Creatinine 0.88. Glucose 159. LDH 2067, C-reactive protein 320. The patient is seen today 11/05/2020 in follow-up in the intensive care unit. She is currently sitting up in bed. Awake and alert. Remains in mild respiratory distress. She is currently on AirVo at 60 L/m and 90% FiO2 along with a nonrebreather mask to maintain O2 saturations in the high 80s low 90s. Chest x-ray continues to show bilateral patchy infiltrates. Blood culture reveals no growth. White count 11.8. Hemoglobin 7.7. Lymphocytes 0.3. D- dimer 1.95. Sodium 135. Potassium 3.8. Creatinine 0.45. LDH 2243. C-react maciel protein 254. She did receive to tocilizumab. Remains on vitamin supplements, IV Solu-Medrol, Lovenox. The patient is seen today 11/06/2020 in follow-up in the intensive care unit. She is currently resting fairly comfortably in bed. She is on BiPAP at 12/5 and 100% FiO2 to maintain O2 saturations in the low 90s. Chest x-ray continues to revealed patchy bilateral lung infiltrates more so on the bases. She has 0.9 normal saline at 75 ML's per hour. Her preliminary blood cultures are positive for Staphylococcus aureus. White count 8.0. Hemoglobin 7.2. Lymphocytes 0.1. D-dimer 4.74. Sodium 137. Potassium 3.5. Creatinine 0.50. LDH 1845. C- reactive protein 69.8. She's been initiated on vancomycin and cefazolin. Continued on Lovenox, IV Solu Medrol, vitamin supplements. She did receive to tocilizumab. On 11/14/2020, the patient is extubated. We'll managed to extubate the patient yesterday and she is currently on 100% nonrebreather facemask. She is awake and alert and she is following commands and answering questions. She is off the Precedex. She is still on fentanyl which is running at 2 mcg/kg per minute. This is managed to control her pain. Note that the patient had bilateral pneumothoraces and she has bilateral chest tubes in place. The right-sided ch est tube is showing intermittent air leak and there is a tiny right apical pneumothorax. The left-sided chest tube has no air leak and output is minimal in the left lung is well expanded without any evidence of pneumothorax. Nevertheless, I suspect that the patient may have potentially superinfection. She has grown MSSA in his sputum and in the pleural fluid and in her blood. She is on IV cefazolin. Nevertheless, her LDH is on the rise and the chest x-ray showing some new bilateral pulmonary infiltration and the possibility of a superinfection with gram-negative is possible. As such, I need to broaden her antibiotic coverage. Meanwhile, she is resting comfortably in bed on 100% nonrebreather facemask pH is communicating. She remains on IV Solu-Medrol. Inflammatory markers from today show a rise in the LDH which is currently up to 2274 and the CRP is up to 21. He d-dimer currently is at 5.67. The white cell count is up to 19.1. Hemoglobin is at 8.9. She is still nothing by mouth for now. No signs of any alcohol withdrawal well. No agitation. No focal neurological deficit. She seems to be much more comfortable at this point in time. The patient is seen today 11/15/2020 in follow-up in the intensive care unit. She is currently sitting up in bed. Awake and alert in no acute distress. She remains on 15 L high flow nasal cannula to maintain O2 saturations in the 90s. Chest x-ray continues to show bilateral infiltrates. There is a small right apical pneumothorax. Right-sided chest tube remains in place. Left-sided chest tube was removed yesterday. She did have MSSA in the sputum, pleural fluid and blood cultures. Follow-up blood cultures are revealing no growth. She remains on cefepime. 9NS @ KVO. She remains on IV Solu-Medrol, Lovenox 30 mg subcu taneous twice a day, vitamin supplements. The patient is seen today 11/16/2020 in follow-up in the intensive care unit. She is awake and alert in no acute distress. Sitting up in bed. She is down to 10 L high flow nasal cannula and maintaining O2 saturations in the low 90s. CAT scan of the chest ruled out pulmonary embolism. There is still a 20% right- sided pneumothorax. Right-sided chest tube remains in good position. No significant air leak. Only about 20 ML's output per shift. Positive for MSSA as were her blood cultures and sputum cultures. She remains on cefepime. She did receive tocilizumab. She is continued on IV Solu-Medrol, Lovenox, vitamin supplements. The patient is seen today 11/17/2020 in follow-up in intensive care unit. She is currently sitting up in bed. Awake and alert in no acute distress. Currently maintaining O2 saturation in the 90s on 8 L high flow nasal cannula. She did receive tocilizumab. Right-sided chest tube remains in place to suction. No air leak noted. Chest x-ray reveals minimal right apical pneumothorax. Still some bilateral airspace disease. Stable compared to previous. She remains on Lovenox, IV Solu-Medrol, bronchodilators, vitamin supplements. She is status post 1 unit of packed red blood cells this admission. Current hemoglobin 8.6. White count 13.0. Lymphocytes 0.3. D- dimer 2.23. Sodium 135. Potassium 4.2. Creatinine 0.34. LDH 1096. C- reactive protein 5.1. The patient is seen today 11/18/2020 in follow-up on the regular medical floor. She is currently sitting up in bed. Awake and alert in no acute distress. Feeling stronger today compared to yesterday. No worsening shortness of breath, cough or congestion. Maintaining good O2 saturations in the upper 90s on 5 L high flow nasal cannula. She's been afebrile. Hemodynamically stable. Right- sided chest tube remains in place. Small air leak still detected. Small right apical pneumothorax still present on chest x-ray. Follow-up blood cultures revealing no growth. White count 14.2. Hemoglobin 9.9. Lymphocytes 0.2. Sodium 136. Potassium 4.6. Creatinine 0.37. She remains on Lovenox, IV Solu- Medrol, vitamin supplements. Antibiotics in the form of cefepime. The patient is seen today 11/19/2020 in follow-up on the regular medical floor. She is currently sitting up in a chair at the bedside. Awake and alert in no acute distress. Right-sided chest tube remains in place to waterseal with significant leak today compared to yesterday. Follow-up chest x-ray was obtained and there is now a 50% pneumothorax on the right. Placed chest tube back on wall suction. Encourage increased use of incentive spirometer. 18 in good O2 saturations in the 90s on 3 L high flow nasal cannula. Follow-up blood cultures revealed no growth. She remains on cefepime and continued on Lovenox, IV sign Medrol, vitamin supplements. Objective - Vital Signs Vital signs: Vital Signs Temp 98 F 11/19/20 14:00 Pulse 107 H 11/19/20 14:00 Resp 18 11/19/20 14:00 BP 119/60 11/19/20 14:00 Pulse Ox 94 L 11/19/20 14:00 Intake & Output 11/18/20 11/19/20 11/19/20 18:59 06:59 18:59 Output Total 0 0 Balance 0 0 Weight 58.9 kg Output: Chest Tube Drainage 0 0 Chest Tube Right 0 0 Other: Voiding Method Bedpan Bedpan Bedside Commode # Voids 8 1 # Bowel Movements 1 ABP, PAP, CO, CI - Last Documented Arterial Blood Pressure 119/75 - Exam GENERAL EXAM: Alert, pleasant 39-year-old female patient, currently on high flow nasal cannula at 3 L, in mild respiratory distress. HEAD: Normocephalic. EYES: Normal reaction of pupils, equal size. NOSE: Clear with pink turbinates. THROAT: No erythema or exudates. NECK: No masses, no JVD. CHEST: No chest wall deformity. Right-sided chest tube remains in place with significant leak. Left-sided chest tube removed. LUNGS: Equal air entry with bilateral scattered rhonchi, crackles in the posterior bases. CVS: S1 and S2 normal with no audible murmur, regular rhythm. ABDOMEN: No hepatosplenomegaly, normal bowel sounds, no guarding or rigidity. SPINE: No scoliosis or deformity SKIN: No rashes CENTRAL NERVOUS SYSTEM: No focal deficits, tone is normal in all 4 extremities. EXTREMITIES: There is no peripheral edema. No clubbing, no cyanosis. Peripher al pulses are intact. - Labs CBC & Chem 7: 11/18/20 08:56 11/18/20 08:56 Labs: Abnormal Lab Results - Last 24 Hours (Table) 11/18/20 11/19/20 Range/Units 20:02 11:17 POC Glucose (mg/dL) 108 H 111 H (75-99) mg/dL Assessment and Plan Assessment: 1 Acute hypoxemic respiratory failure secondary to acute CoVID 19 pneumonia. Did receive tocilizumab. The patient did require intubation mechanical ventilatory support. She also developed bilateral pneumothoraces. Right-sided chest tube remains in place. Left-sided chest tube had been removed. Currently on 3 L high flow nasal cannula. 2 MSSA bacteremia, sputum, pleural fluid and currently on cefepime. Follow-up blood culture revealing no growth. 3 Anemia in a patient with a known history of nonbleeding ulcers with previous EGD and GI bleed, received 1 unit of packed red blood cells this admission. Current hemoglobin 9.9 4 History of chronic tobacco dependence, vaping 5 History of anxiety/depression 6 History of immunodeficiency disorder 7 Irritable bowel syndrome 8 History of migraine 9 Fibromyalgia. 10 History of chronic back pain Plan: The patient was seen and evaluated by Dr. Cruz Chest x-ray and labs reviewed Right-sided chest tube had been to waterseal Now with 50% pneumothorax, placed back on suction Follow up chest x-ray in a.m. Titrate down the FiO2 as tolerated Increase her activity as tolerated Continue Lovenox, IV Solu-Medrol, cefepime We will continue to follow I, the cosigning physician, performed a history & physical examination of the patient. Lungs sounds bilateral scattered rhonchi, crackles in the posterior bases. Maintaining O2 saturations in the 90s on 3 L high flow nasal cannula. I discussed the assessment and plan of care with my nurse practitioner, Cecelia Salgado. I attest to the above note as dictated by her.
[2020-11-19 19:58] LABS: Glucose,Whole Blood 214 mg/dL (75-99)
[2020-11-19] MEDS: MELATONIN 3 MG TABLET PO SCH (20:42)
[2020-11-20] MEDS: CEFEPIME 2 GM in SODIUM CHLORIDE 0.9% 100 ML IVPB SCH ×3 (01:33→17:53)
[2020-11-20] MEDS: oxyCODONE-APAP 5-325MG 1 EACH TAB PO PRN ×4 (05:08→23:53)
[2020-11-20] MEDS: methylPREDNISolone SOD SUCCI 125 MG/2 ML VIAL IV SCH ×4 (05:08→23:52)
[2020-11-20 06:58] LABS: Glucose,Whole Blood 113 mg/dL (75-99)
[2020-11-20] MEDS: ALBUTEROL HFA INHALER INHALATION PRN ×3 (07:24→20:33)
[2020-11-20] MEDS: INSULIN ASPART (NovoLOG) 100 UNIT/ML VIAL SQ SCH ×4 (07:26→21:44)
--- NOTE | 2020-11-20 07:49 | XR ---
EXAMINATION TYPE: XR chest 1V portable DATE OF EXAM: 11/20/2020 COMPARISON: 11/19/2020 HISTORY: Right chest tube. TECHNIQUE: Single frontal view of the chest is obtained. FINDINGS: There is a right chest tube projecting over the mid right lung there is a moderate right a pical pneumothorax measuring approximately 3 cm in size. There is diffuse interstitial opacity bilaterally essentially unchanged compared to the prior study. There is a central venous catheter in the right atrium. The heart size is normal. There are no large pleural effusions. IMPRESSION: 3 cm right apical pneumothorax and right chest tube projecting over the right mid lung. The size of the pneumothorax thorax is is mildly smaller than on the prior study.
[2020-11-20] MEDS: SUCRALFATE 1 GM TAB PO SCH ×4 (09:22→21:45)
[2020-11-20] MEDS: METOPROLOL TARTRATE 25 MG TAB PO SCH ×2 (09:22→21:46)
[2020-11-20] MEDS: ASCORBIC ACID 500 MG TAB PO SCH (09:22)
[2020-11-20] MEDS: ZINC SULFATE 220 MG CAP PO SCH (09:22)
[2020-11-20] MEDS: DULoxetine HCL 60 MG CAPSULE.DR PO SCH (09:22)
[2020-11-20] MEDS: busPIRone HCl 10 MG TAB PO SCH ×2 (09:23→21:45)
[2020-11-20] MEDS: ENOXAPARIN 30 MG/0.3 ML SYRINGE SQ SCH ×2 (09:23→21:44)
[2020-11-20] MEDS: ARIPiprazole 5 MG TAB PO SCH (09:23)
[2020-11-20] MEDS: TOPIRAMATE 25 MG TAB PO SCH (09:24)
[2020-11-20] MEDS: buPROPion XL 150 MG TAB.ER.24H PO SCH (09:24)
[2020-11-20] MEDS: SODIUM CHLORIDE 0.9% 1,000 ML IV SCH (09:24)
[2020-11-20] MEDS: PANTOPRAZOLE 40 MG/10 ML VIAL IVP SCH ×2 (09:28→21:44)
[2020-11-20] MEDS: CHOLECALCIFEROL 25 MCG (1000 IU) TABLET PO SCH (09:40)
--- NOTE | 2020-11-20 10:58 | P.GSCN ---
History of Present Illness Consult date: 11/20/20 Reason for Consult: Persistent right pneumothorax Requesting physician: Stewart Cruz History of present illness: This is a 39-year-old female patient who follows with Dr. David Murphy on an outpatient basis. She has a past medical history significant for GI bleed secondary to history of 2 nonbleeding antral ulcers requiring transfusion of 2 units packed red blood cells, asthma, irritable bowel syndrome, anxiety, depre ssion, bipolar, post traumatic stress disorder, fibromyalgia, chronic ongoing tobacco, draping use and EtOH abuse. On 10/30/2020 the patient received a report from the department showing that she had tested positive for COVID 19. She had complaints of shortness of breath, cough with hemoptysis, fever, chills, cough and hoarseness. Patient denies any nausea, vomiting, headache, dizziness, palpitations, blurred vision, diarrhea, constipation, or muscle weakness. Subsequently the patient came to the emergency department here at [facility] for further evaluation due to her symptoms and her positive COVID 19 test. On admission a chest x-ray was completed which showed pulmonary interstitial pneumonia. For follow-up a computed tomography angiogram scan of her chest was completed which demonstrated no evidence of pulmonary embolism and severe pulmonary interstitial and airspace edema. The patient was subsequently admitted to the hospital for further evaluation and treatment. On 11/08/2020 a right-sided chest tube was placed due to a spontaneous right-sided pneumothorax and on 11/10/2020 a left-sided chest tube was placed by Dr. Davison for a spontaneous left pneumothorax. The left chest tube has since been removed with resolution of her left pneumothorax. The right pleural chest tube remains in place to low continuous wall suction -20 cm H2O. There is a continuous air leak present with scant serosanguineous drainage present. Her chest x-ray from today continues to show a small right apical pneumothorax with the size of the pneumothorax slightly smaller than her prior study from yesterday 11/19/2020. Subsequently due to the patient's persistent right pneumothorax and continuous air leak a consult was placed to Dr. Evan Tapia from cardiothoracic surgery for further evaluation and treatment recommendations. Review of Systems A 14 point review of systems was completed and was negative except as mentioned in the HPI. Past Medical History Past Medical History: Asthma, Fibromyalgia, GERD/Reflux, GI Bleed Additional Past Medical History / Comment(s): Pt tested covid + on 10/30/20 at [facility]. Other hx: Primary immunodeficiency, antral ulcers, GI bleed associated with excedrin/noninflammatory medication use, anemia, IBS, migraines, back pain, TMJ, seasonal allergies. History of Any Multi-Drug Resistant Organisms: None Reported Past Surgical History: Breast Surgery, Ear Surgery, Uterine Ablation Additional Past Surgical History / Comment(s): EGDs, colonoscopies, bilateral breast augmentation, septoplasty, L ear trauma/reattached. Past Anesthesia/Blood Transfusion Reactions: No Reported Reaction, Motion Sickness Additional Past Anesthesia/Blood Transfusion Reaction / Comm: Pt has received blood in past without reaction. Past Psychological History: ADD/ADHD, Anxiety, Bipolar, Depression, PTSD Smoking Status: Current every day smoker, Vaper Past Alcohol Use History: Abuse Past Drug Use History: None Reported - Past Family History Father Additional Family Medical History / Comment(s): Father at age 51 from accidental drug overdose. Mother Family Medical History: Fibromyalgia Additional Family Medical History / Comment(s): Mother is alive at age 61 with history of primary immunodeficiency. Brother(s) Additional Family Medical History / Comment(s): Patient has one brother with history of alcohol abuse. Patient does not have any sisters. Patient has 2 children with no major medical problems. Medications and Allergies Home Medications Medication Instructions Recorded Confirmed Type Cetirizine HCl [Zyrtec] 10 mg PO DAILY PRN 02/26/20 11/04/20 History DULoxetine HCL [Cymbalta] 60 mg PO DAILY 02/26/20 11/04/20 History Butalb/Acetaminophen/Caffeine 1 tab PO BID PRN 08/13/20 11/04/20 History [Fioricet 50-325-40] buPROPion XL [Wellbutrin XL] 150 mg PO DAILY 08/14/20 11/04/20 History Acetaminophen Tab [Tylenol] 650 mg PO Q6HR PRN tab 08/16/20 11/04/20 Rx Sucralfate [Carafate] 1 gm PO ACHS #60 tab 08/16/20 11/04/20 Rx ARIPiprazole [Abilify] 7.5 mg PO DAILY 11/04/20 11/04/20 History Albuterol Sulfate [Proair Hfa] 2 puff INHALATION RT-Q4H PRN 11/04/20 11/04/20 History Benzonatate [Tessalon Perles] 200 mg PO TID 11/04/20 11/04/20 History Cholecalciferol [Vitamin D3 (25 25 mcg PO DAILY 11/04/20 11/04/20 History Mcg = 1000 Iu)] Cyclobenzaprine [Flexeril] 5 - 10 mg PO TID PRN 11/04/20 11/04/20 History Fluticasone Nasal [place] [Flonase 1 - 2 spr EA NOSTRIL Q48H PRN 11/04/20 11/04/20 History Nasal [place]] Fluticasone/Salmeterol [Advair 1 puff INHALATION RT-BID 11/04/20 11/04/20 History 250-50 Diskus] Pantoprazole Sodium [Protonix] 40 mg PO DAILY 11/04/20 11/04/20 History Propranolol LA [Inderal LA] 60 mg PO DAILY 11/04/20 11/04/20 History Triamcinolone 0.1% Cream [Kenalog 1 applic TOPICAL BID 11/04/20 11/04/20 History 0.1% Cream] busPIRone HCl [Buspar] 10 mg PO BID PRN 11/04/20 11/04/20 History Allergies Allergy/AdvReac Type Severity Reaction Status Date / Time adhesive Allergy Rash/Hives Verified 11/04/20 09:49 latex Allergy Rash/Hives Verified 11/04/20 09:49 prochlorperazine Allergy Unknown Verified 11/04/20 09:49 [From Compazine] ciprofloxacin [From Cipro] AdvReac Hallucinati Verified 11/04/20 09:49 ons citalopram [From Celexa] AdvReac Suicidal Verified 11/04/20 09:49 thoughts diazepam [From Valium] AdvReac Hallucinati Verified 11/04/20 09:49 ons/Anxiety fluoxetine [From Prozac] AdvReac Suicidal Verified 11/04/20 09:49 thoughts metoclopramide [From Reglan] AdvReac Hallucinati Verified 11/04/20 09:49 ons/Anxiety paroxetine [From Paxil] AdvReac Suicidal Verified 11/04/20 09:49 thoughts Penicillins AdvReac Nausea & Verified 11/04/20 09:49 Vomiting Surgical - Exam Vital Signs Temp Pulse Resp BP Pulse Ox 98.3 F 102 H 40 H 95/64 71 L 11/03/20 19:27 11/03/20 19:27 11/03/20 19:27 11/03/20 19:27 11/03/20 19:27 - General well developed, well nourished, no distress, no pain - Eyes PERRL, normal ocular movement, no icteric - ENT normal pinna, normal nares, normal mucosa, no hearing loss - Neck no masses, no bruits, trachea midline, no venous distension - Respiratory Lung sounds with scattered rhonchi and crackles throughout. No wheezes. Respirations are symmetrical and nonlabored. Oxygen saturation are 93% on 4 L nasal cannula. Achieving 2000 mL on her incentive spirometry with encouragement. Right pleural chest tube remains in place to low continuous wall suction -20 cm H2O. Continuous air leak is present. Draining scant thin serosanguineous drainage. - Cardiovascular Regular rhythm and rate. S1 and S2 present, negative for S3, gallop or murmur. No edema present. - Abdomen Abdomen is soft, nontender and nondistended. Active bowel sounds present in all 4 abdominal quadrants. No guarding or rigidity. No organomegaly appreciated. Tolerating oral intake. - Genitourinary Deferred - Rectum Deferred - Integumentary Multiple tattoos no rash, no growths, no abnormal pigmentation - Neurologic Cranial nerves II through XII intact. normal coordination, normal sensation - Musculoskeletal normal gait, normal posture - Psychiatric oriented to time, oriented to person, oriented to place, speech is normal, memory intact Results - Labs 11/18/20 08:56 11/18/20 08:56 Abnormal Lab Results - Last 24 Hours (Table) 11/19/20 11/19/20 11/20/20 Range/Units 11:17 19:57 06:57 POC Glucose (mg/dL) 111 H 214 H 113 H (75-99) mg/dL - Imaging Chest x-ray: report reviewed, image reviewed Assessment and Plan Assessment: 1. Persistent right pneumothorax despite right pleural chest tube being in place 2. Acute hypoxic respiratory failure secondary to acute COVID 19 pneumonia 3. MSSA bacteremia, sputum, pleural fluid, currently on Maxipime for antibiotic coverage 4. History of anemia with nonbleeding antral ulcers, status post transfusion of 1 unit of packed red blood cells on admission 5. Chronic ongoing tobacco dependence and vaping use 6. Irritable bowel syndrome 7. History of fibromyalgia 8. History of asthma 9. History of bipolar disorder 10. History of ADHD 11. History of depression 12. History of EtOH abuse, drinks 1 pint of tequila daily Plan: The patient was seen and examined at her bedside on the fourth floor medical surgical unit. Her chart and diagnostics were reviewed. The case was discussed in detail with Dr. Evan Tapia from cardiothoracic surgery. No surgical intervention is warranted at this time. We will try to manipulate the chest tube for better positioning. May require a another chest tube placement or Thoravent. Continue to monitor daily chest x-rays. Continue to monitor for air leak and pneumothorax resolution. Encourage use of her incentive spirometry 10 times every hour while awake. Risk modification including smoking cessation, taping cessation discussed with the patient. Wean oxygen as tolerated which is being managed by pulmonary critical care medicine. More recommendations to follow based on patient's clinical course. Thank you Dr. Cruz for this consult and we'll look for to working with you in the care of this patient. Time with Patient: Greater than 30
[2020-11-20] MEDS ORDERED: LIDOCAINE 1% INJ 10MG/ML (20 ML MDV) SQ ONE (11:12)
[2020-11-20 11:39] LABS: Glucose,Whole Blood 94 mg/dL (75-99)
[2020-11-20] MEDS: KETOROLAC 15 MG/ML 1 ML VIAL IVP PRN (11:42)
[2020-11-20] MEDS: ALPRAZolam 0.5 MG TAB PO PRN ×2 (12:43→23:52)
--- NOTE | 2020-11-20 15:42 | P.PN ---
Subjective Progress Note Date: 11/20/20 Principal diagnosis: CoVID 19 pneumonia This is a very pleasant 39-year-old female patient with a known history of GI bleeding with 2 nonbleeding antral ulcers per EGD, migraines, anxiety/depression, severe back pain, fibromyalgia, primary immunodeficiency disorder, irritable bowel syndrome, tobacco dependence, mild intermittent chronic bronchial asthma maintained on Advair. Presently 2 weeks ago she developed increasing shortness of breath cough congestion chills fever. She subsequently tested positive for CoVID 19 on 10/30/2020. Her shortness of breath continued to worsen she presented here to the emergency room last evening. Chest x-ray shows bilateral patchy infiltrates consistent with CoVID pneumonia as does CTA of the chest. No evidence of pulmonary embolism. She is seen today in consultation in the emergency room. She is currently sitting up at the bedside. She is quite hoarse, quite dyspneic on minimal exertion and conversation. Requiring 15 L high flow nasal cannula with nonrebreather mask to maintain O2 saturations in the 90s. White count 9.4. Hemoglobin 8.6. Platelets 284. Lymphocytes 0.6. D-dimer 1.06. Sodium 135. Potassium 4.0. Creatinine 0.88. Glucose 159. LDH 2067, C-reactive protein 320. The patient is seen today 11/05/2020 in follow-up in the intensive care unit. She is currently sitting up in bed. Awake and alert. Remains in mild respiratory distress. She is currently on AirVo at 60 L/m and 90% FiO2 along with a nonrebreather mask to maintain O2 saturations in the high 80s low 90s. Chest x-ray continues to show bilateral patchy infiltrates. Blood culture reveals no growth. White count 11.8. Hemoglobin 7.7. Lymphocytes 0.3. D- dimer 1.95. Sodium 135. Potassium 3.8. Creatinine 0.45. LDH 2243. C-react maciel protein 254. She did receive to tocilizumab. Remains on vitamin supplements, IV Solu-Medrol, Lovenox. The patient is seen today 11/06/2020 in follow-up in the intensive care unit. She is currently resting fairly comfortably in bed. She is on BiPAP at 12/5 and 100% FiO2 to maintain O2 saturations in the low 90s. Chest x-ray continues to revealed patchy bilateral lung infiltrates more so on the bases. She has 0.9 normal saline at 75 ML's per hour. Her preliminary blood cultures are positive for Staphylococcus aureus. White count 8.0. Hemoglobin 7.2. Lymphocytes 0.1. D-dimer 4.74. Sodium 137. Potassium 3.5. Creatinine 0.50. LDH 1845. C- reactive protein 69.8. She's been initiated on vancomycin and cefazolin. Continued on Lovenox, IV Solu Medrol, vitamin supplements. She did receive to tocilizumab. On 11/14/2020, the patient is extubated. We'll managed to extubate the patient yesterday and she is currently on 100% nonrebreather facemask. She is awake and alert and she is following commands and answering questions. She is off the Precedex. She is still on fentanyl which is running at 2 mcg/kg per minute. This is managed to control her pain. Note that the patient had bilateral pneumothoraces and she has bilateral chest tubes in place. The right-sided ch est tube is showing intermittent air leak and there is a tiny right apical pneumothorax. The left-sided chest tube has no air leak and output is minimal in the left lung is well expanded without any evidence of pneumothorax. Nevertheless, I suspect that the patient may have potentially superinfection. She has grown MSSA in his sputum and in the pleural fluid and in her blood. She is on IV cefazolin. Nevertheless, her LDH is on the rise and the chest x-ray showing some new bilateral pulmonary infiltration and the possibility of a superinfection with gram-negative is possible. As such, I need to broaden her antibiotic coverage. Meanwhile, she is resting comfortably in bed on 100% nonrebreather facemask pH is communicating. She remains on IV Solu-Medrol. Inflammatory markers from today show a rise in the LDH which is currently up to 2274 and the CRP is up to 21. He d-dimer currently is at 5.67. The white cell count is up to 19.1. Hemoglobin is at 8.9. She is still nothing by mouth for now. No signs of any alcohol withdrawal well. No agitation. No focal neurological deficit. She seems to be much more comfortable at this point in time. The patient is seen today 11/15/2020 in follow-up in the intensive care unit. She is currently sitting up in bed. Awake and alert in no acute distress. She remains on 15 L high flow nasal cannula to maintain O2 saturations in the 90s. Chest x-ray continues to show bilateral infiltrates. There is a small right apical pneumothorax. Right-sided chest tube remains in place. Left-sided chest tube was removed yesterday. She did have MSSA in the sputum, pleural fluid and blood cultures. Follow-up blood cultures are revealing no growth. She remains on cefepime. 9NS @ KVO. She remains on IV Solu-Medrol, Lovenox 30 mg subcu taneous twice a day, vitamin supplements. The patient is seen today 11/16/2020 in follow-up in the intensive care unit. She is awake and alert in no acute distress. Sitting up in bed. She is down to 10 L high flow nasal cannula and maintaining O2 saturations in the low 90s. CAT scan of the chest ruled out pulmonary embolism. There is still a 20% right- sided pneumothorax. Right-sided chest tube remains in good position. No significant air leak. Only about 20 ML's output per shift. Positive for MSSA as were her blood cultures and sputum cultures. She remains on cefepime. She did receive tocilizumab. She is continued on IV Solu-Medrol, Lovenox, vitamin supplements. The patient is seen today 11/17/2020 in follow-up in intensive care unit. She is currently sitting up in bed. Awake and alert in no acute distress. Currently maintaining O2 saturation in the 90s on 8 L high flow nasal cannula. She did receive tocilizumab. Right-sided chest tube remains in place to suction. No air leak noted. Chest x-ray reveals minimal right apical pneumothorax. Still some bilateral airspace disease. Stable compared to previous. She remains on Lovenox, IV Solu-Medrol, bronchodilators, vitamin supplements. She is status post 1 unit of packed red blood cells this admission. Current hemoglobin 8.6. White count 13.0. Lymphocytes 0.3. D- dimer 2.23. Sodium 135. Potassium 4.2. Creatinine 0.34. LDH 1096. C- reactive protein 5.1. The patient is seen today 11/18/2020 in follow-up on the regular medical floor. She is currently sitting up in bed. Awake and alert in no acute distress. Feeling stronger today compared to yesterday. No worsening shortness of breath, cough or congestion. Maintaining good O2 saturations in the upper 90s on 5 L high flow nasal cannula. She's been afebrile. Hemodynamically stable. Right- sided chest tube remains in place. Small air leak still detected. Small right apical pneumothorax still present on chest x-ray. Follow-up blood cultures revealing no growth. White count 14.2. Hemoglobin 9.9. Lymphocytes 0.2. Sodium 136. Potassium 4.6. Creatinine 0.37. She remains on Lovenox, IV Solu- Medrol, vitamin supplements. Antibiotics in the form of cefepime. The patient is seen today 11/19/2020 in follow-up on the regular medical floor. She is currently sitting up in a chair at the bedside. Awake and alert in no acute distress. Right-sided chest tube remains in place to waterseal with significant leak today compared to yesterday. Follow-up chest x-ray was obtained and there is now a 50% pneumothorax on the right. Placed chest tube back on wall suction. Encourage increased use of incentive spirometer. 18 in good O2 saturations in the 90s on 3 L high flow nasal cannula. Follow-up blood cultures revealed no growth. She remains on cefepime and continued on Lovenox, IV sign Medrol, vitamin supplements. The patient is seen today 11/20/2020 in follow-up on the regular medical floor. She is sitting up in a chair at the bedside. Awake and alert in no acute distress. Maintaining O2 saturations in the 90s on 4 L/m per nasal cannula. He is afebrile. Hemodynamically stable. She remains on cefepime, IV Solu-Medrol, Lovenox, vitamin supplements. Right-sided chest tube remains in place to wall suction. Leak is still present. Persistent right-sided pneumothorax. Chest tube was manipulated this morning by CT services for better positioning. She continues to work well the incentive spirometer. Objective - Vital Signs Vital signs: Vital Signs Temp 97.5 F L 11/20/20 14:00 Pulse 100 11/20/20 14:00 Resp 18 11/20/20 14:00 BP 108/82 11/20/20 14:00 Pulse Ox 100 11/20/20 14:00 Intake & Output 11/19/20 11/20/20 11/20/20 18:59 06:59 18:59 Intake Total 140 200 Output Total 0 Balance 0 140 200 Intake: IV 140 0.9 NS flush 40 Cefepime 2 gm In Sodium 100 Chloride 0.9% 100 ml @ 25 mls/hr IVPB Q8H [facility] Rx#: [id number] Oral 200 Output: Chest Tube Drainage 0 Chest Tube Right 0 Other: Voiding Method Bedside Commode Bedpan # Voids 8 ABP, PAP, CO, CI - Last Documented Arterial Blood Pressure 119/75 - Exam GENERAL EXAM: Alert, pleasant 39-year-old female patient, currently on high flow nasal cannula at 4 L, in mild respiratory distress. HEAD: Normocephalic. EYES: Normal reaction of pupils, equal size. NOSE: Clear with pink turbinates. THROAT: No erythema or exudates. NECK: No masses, no JVD. CHEST: No chest wall deformity. Right-sided chest tube remains in place with significant leak. Continue to wall suction. LUNGS: Equal air entry with bilateral scattered rhonchi, crackles in the posteri or bases. CVS: S1 and S2 normal with no audible murmur, regular rhythm. ABDOMEN: No hepatosplenomegaly, normal bowel sounds, no guarding or rigidity. SPINE: No scoliosis or deformity SKIN: No rashes CENTRAL NERVOUS SYSTEM: No focal deficits, tone is normal in all 4 extremities. EXTREMITIES: There is no peripheral edema. No clubbing, no cyanosis. Peripheral pulses are intact. - Labs CBC & Chem 7: 11/18/20 08:56 11/18/20 08:56 Labs: Abnormal Lab Results - Last 24 Hours (Table) 11/19/20 11/20/20 Range/Units 19:57 06:57 POC Glucose (mg/dL) 214 H 113 H (75-99) mg/dL Assessment and Plan Assessment: 1 Acute hypoxemic respiratory failure secondary to acute CoVID 19 pneumonia. Did receive tocilizumab. The patient did require intubation mechanical ventilatory support. She also developed bilateral pneumothoraces. Right-sided chest tube remains in place. Left-sided chest tube had been removed. Currently on 4 L high flow nasal cannula. 2 MSSA bacteremia, sputum, pleural fluid and currently on cefepime. Follow-up blood culture revealing no growth. 3 Anemia in a patient with a known history of nonbleeding ulcers with previous EGD and GI bleed, received 1 unit of packed red blood cells this admission. Current hemoglobin 9.9 4 History of chronic tobacco dependence, vaping 5 History of anxiety/depression 6 History of immunodeficiency disorder 7 Irritable bowel syndrome 8 History of migraine 9 Fibromyalgia. 10 History of chronic back pain Plan: The patient was seen and evaluated by Dr. Cruz Chest x-ray and labs reviewed CT services consulted and repositioned chest tube Continue to wall suction, continues with air leak Follow up chest x-ray in a.m. Titrate down the FiO2 as tolerated Increase her activity as tolerated We will continue to follow I, the cosigning physician, performed a history & physical examination of the patient. Lungs sounds bilateral scattered rhonchi, crackles in the posterior bases. Maintaining O2 saturations in the 90s on 4 L high flow nasal cannula. I discussed the assessment and plan of care with my nurse practitioner, Cecelia Salgado. I attest to the above note as dictated by her.
[2020-11-20 16:43] LABS: Glucose,Whole Blood 107 mg/dL (75-99)
[2020-11-20 20:49] LABS: Glucose,Whole Blood 160 mg/dL (75-99)
[2020-11-20] MEDS: MELATONIN 3 MG TABLET PO SCH (21:45)
--- NOTE | 2020-11-20 21:54 | P.PN ---
Subjective Progress Note Date: 11/20/20 HISTORY OF PRESENT ILLNESS This is a 39-year-old female patient of Dr. Gonzalez with past medical history of GI bleed in 2008, July 2020 was admitted for GI bleed secondary to 2 no nbleeding antral ulcers requiring transfusion 2 units packed RBCs, tobacco use, alcohol abuse, recurrent depression, generalized anxiety disorder. Patient was diagnosed with COVID-19 on October 30. She complains of increasing shortness of breath, cough, congestion, fever and chills and hoarseness. She continued to worsen significantly over the past 2 days. She also complains of bloody sputum production. Patient came into [facility] emergency center for evaluation. Temperature 98.3, heart rate 102, respiratory rate 40, blood pressure 95/64, pulse ox 71%. EKG was a sinus rhythm no acute ST elevation. W BC 9.4, hemoglobin 8.6, platelet count 284. Sodium 135, potassium 2.8, chloride 102, CO2 21, BUN 19 creatinine 0.88. Blood sugar 92. AST 71, ALT 24, alkaline phosphatase 264 [place] phosphatase 264, LDH 2067, CA reactive protein 320.8. Lactic acid 3.1. CT angiogram of the chest reveals no evidence pulmonary embolism. Severe pulmonary interstitial and airspace edema. Chest x-ray reveals pulmonary interstitial pneumonia worse than recent exam. Some airspace component. Patient is status post 2 L of IV fluids, potassium replacement, Dilaudid, patient seen by pulmonary medicine and started on Tocilizumab. 11/05: Patient remains in the intensive care unit. She is a nonrebreather mask and AorVp and can maintain a pulse ox in the 90s. If she removes these, patient follows less than 70s. She is very anxious today and has many questions. She does have large number of psychiatric medications which have been resumed. We will also add and Xanax twice daily as needed. She has been afebrile, heart rate 89, blood pressure 116/79, pulse ox 95%. Repeat blood work reveals WBC 11.8, hemoglobin 7.7, platelet count 243. D-dimer 1.95. Sodium 135, electrolyt es otherwise normal, BUN 18 creatinine 0.45. Blood sugars running between 117- 129. AST 48, ALT 18, alkaline phosphatase 218, LDH 2243. C-reactive protein 254. Patient had 2 blood cultures, one is showing no growth at 24 hours and the second obtained at 2240 showing gram-positive cocci. She was started on vancomycin. 11/06: Patient remains in ICU, still on a BiPAP treatments,, continuously, terri barber did not have any meals for the past 72 hours secondary to hypoxemia and air hunger without the reading device. Patient has not slept well at all, cytokinin markers are elevated, blood culture growing Staphylococcus from specimen collected November 03 are pending sensitivity. Patient currently is on IV cefazolin, IV vancomycin, followed by infectious disease. So Medrol 60 mg every 6 hours, most of her oral medications cannot be complied upon secondary to hypoxemia event removed briefly. Hemoglobin at 7.2, blood gas shows pCO2 54, PaO2 of 67, 7.39 pH. Double basic count of under 10, creatinine of 0.5, LDH 1845, alkaline phosphatase 194. Albumin low at 2.6, blood pressure stable,Heart rate of 114, blood pressure of 135/90. Pulse ox 85-86 at BiPAP treatments. 11/07 yesterday afternoon, patient required placement of right chest tube secondary to spontaneous pneumothorax placed by the ER doctor,, patient has worsening respiratory status, and was intubated by the ER physician currently with tidal volume of 40, PEEP of 10, assist control rate of 24, FiO2 of 80%. There is residual small pneumothorax right side, there is a left subclavian triple-lumen placed by Dr. Harrington today. There is consult for nutrition, has an OG tube, for which feedings would be started once completed. Chest x-ray shows bilateral diffuse infiltrates, creatinine of 0.4, LDH of 1630, CRP of 36 platelet count 132, hemoglobin 7.3 11/08: Patient remains in the intensive care unit, intubated and on mechanical ventilation with FiO2 100%, tidal volume 400 and PEEP of 10. Patient is currently on sedation. Repeat chest x-ray today reveals increase in size of right-sided pneumothorax since previous measuring of 3.5 cm today compared to 1.2 cm yesterday. Severe interstitial infiltrates throughout the lungs bilaterally slightly increased from previous. A second right-sided chest tube was placed today by Dr. Davison. Repeat blood work reveals WBC 5.2, hemoglobin 6.2, platelet count 133. Sodium 141, potassium 3.5, chloride 107, CO2 35, BUN 24 and creatinine 0.46. Blood sugar 132. Alkaline phosphatase 154. D-dimer 6.35. Patient is ordered for transfusion 1 unit packed RBCs today. Blood culture is MSSA and patient is on Ancef 2 g every 8 hours. Pleural fluid culture in progress. Patient has been afebrile, heart rate low 100s, respiratory rate 27, blood pressure 135/93, pulse ox 96%. Patient will be started on tube feedings today. 11/09: She remains intubated and on mechanical ventilation. She is on both Nimbex and Propofol. She remains intubated and on mechanical ventilation with tidal volume 400, FiO2 65 and PEEP of 10. Repeat chest x-ray reveals improving right apical pneumothorax measuring less than 5%. Stable bilateral diffuse infiltrates. WBC 8, hemoglobin 7.8 status post 1 unit of packed RBCs. Platelet count 123. Sodium 141, potassium 3.9, chloride 105, CO2 37. BUN 28 creatinine 0.51. Blood sugar 142. Inflammatory markers are improving with d-dimer 7.09, fibrinogen 159, LDH 1249, C-reactive protein 8.3, CK 23. Patient is on Kefzol for antibiotics. She remains with right-sided chest tube. She has been a febrile, heart rate 80, blood pressure 116/78, pulse ox 92%. Patient is not requiring vasopressors. 11/10: Initial chest x-ray this morning revealed interval development of 50% left-sided pneumothorax. Patient is status post chest tube placement on the left by Dr. Davison. Repeat chest x-ray revealed bilateral apical pneumothoraces measuring less than 5. Stable on the right improved on the left. Diffuse bilateral pulmonary parenchymal disease stable. Patient remains intubated and on mechanical ventilation. She is now off Nimbex. Tidal volume 500, FiO2 60% and PEEP of 8. Patient is on tube feedings. Repeat blood work reveals WBC 7.5, hemoglobin 7.7, platelet count 126. Sodium 139, potassium 3.3 and was replaced, chloride 98, CO2 38, BUN 28 creatinine 0.41. Cultures are running between 134-150. D-dimer 0.05, LDH 1338, CK 65, C-reactive protein less than 5. Sputum culture is in progress. Blood cultures no growth at 24 hours. All previous blood cultures are showing no growth. IgG is low at 471. Request a nurse contact Dr. Davison about IVIG infusion. 11/11: She remains in the intensive care unit, intubated and on mechanical ventilation with tidal volume 400, FiO2 50% and PEEP of 6. Patient now has bilateral chest tubes in place for bilateral pneumothoraces with right-sided air leak. Weaning will be attempted today. She has been afebrile, heart rate 95, blood pressure 148/81, pulse ox 96%. Repeat blood work reveals W BC 5.8, hemoglobin 10.3, platelet count 101. D-dimer 6.03. C-reactive protein less than 5, CK 44. LDH 1234. Sodium 133, potassium 3.8, chloride 94, CO2 38, BUN 22 and creatinine 0.32. Blood culture, sputum culture, pleural fluid culture also positive for MSSA. Patient is covered with Kefzol. 11/12: Patient remains in intensive care unit, intubated and on mechanical ventilation with tidal volume 400, FiO2 50% and PEEP of 6. She failed weaning trial yesterday and she was desatting and back on propofol as well as Precedex and fentanyl drips were added. Patient has been afebrile, heart rate 86, blood pressure 134/68, pulse ox 90%, respiratory rate 24. Repeat blood work reveals WBC 17.3, hemoglobin 9, platelets 164. Sodium 134, potassium 3.6, chloride 97, CO2 30, BUN 19 and creatinine 0.33. Blood sugars running between 127 and 141. Alkaline phosphatase 149. LDH 1437. C-reactive protein 6.4. Repeat chest x-ray reveals slight interval increase in the right-sided pneumothorax compared to prior exam. Correlate for pneumonia, edema or ARDS. She remains with bilateral chest tubes in place. Prognosis remains guarded. 11/13: Patient remains in the intensive care unit. She has been successfully extubated this morning and is on 15 L high flow nasal cannula. She has been afebrile, heart rate in the 80s, blood pressure 109/75. Repeat blood work reveals W BC 10.7, hemoglobin 7.3, platelet count 116. D-dimer 5.54. Sodium 134, potassium 4.0, chloride 97, CO2 33, BUN 20, creatinine 0.29. Blood sugars running between 119 and 143. LDH 1057, CK 22, C-reactive protein less than 5. Chest x-ray reveals small right apical pneumothorax slightly smaller. Right chest tube. No change in patchy airspace opacities in the lung right greater than left. Left-sided chest tube unchanged in position and resolution of left small apical pneumothorax. The patient's mental status is not back to baseline. She is somewhat confused. 11/14: Patient remains in the intensive care unit. PO 80s on NRB. Patient encouraged to keep mask on face. She has been afebrile, HR 80s - 90s, RR 28, BP 129/95. Repeat blood work reveals WBC 19.1, HGB 8.9, PLT 152. Sodium 134, K 3.7, Chloride 94, CO2 31. BUN 17, Creat 0.26. Ferritin 68.9. AST 49, ALT 17, AP149. LDH 2274. CK 61, CRP 29.4. CXR reveals stable diffuse infiltrates and small right apical pheumothorax. 11/15: Patient remains in the intensive care unit. Her breathing status appears to be stable. Pulse ox is running anywhere between 86 and 100% on 15 L high flow nasal cannula. She is complaining of right-sided pain in her chest secondary to the chest tube. Patient does have Dilaudid which she is receiving every 3 hours and we will add in [place]. The left-sided chest tube was removed yesterday. She has been afebrile, heart rate in the 90s, blood pressure 116/74. Chest x-ray reveals similar findings to prior. WBC 14.0, hemoglobin 8.8, platelet count 171. D-dimer 3.61. Sodium 134, potassium 4.3, chloride 96, CO2 33, BUN 25 and creatinine 0.34. Blood sugars are controlled. Alkaline phosphatase 128. LDH 1634. CK 49. C-reactive protein 21.8. No plan to palpation of the intensive care unit today. We'll plan for Seymour catheter to be removed. 11/16: Patient remains in intensive care unit. She is now on high flow nasal cannula at 10 L. She is having some sinus tachycardia especially with eating breakfast this morning. She is on Dilaudid IV every 3 hours and [place] was added yesterday and will encourage to use [place] today and try and wean off Dilaudid. She continues to have pain at the chest tube site. Chest x-ray this morning reveals no significant interval change. Right-sided pneumothorax is likely decreased. CTA of the chest reveals no evidence of pulmonary embolism. Right- sided pneumothorax. Right chest tube in good position in the major fissure. 11/17:Patient remains in the intensive care unit. She is tachycardic up to 137 this morning and pulmonary medicine started her on metoprolol. She's been afebrile, respiratory rate in the 20s, blood pressure 117/83, pulse ox is 88-97% on 8 L nasal cannula high flow. Repeat blood work reveals to be BBC 13, hemoglobin 8.6, platelet count 181. D-dimer 2.23. Sodium 135. Potassium 4.2, chloride 97, CO2 31, BUN 27 creatinine 0.34. Blood sugars running between 93 and 141. Liver function tests are normal. LDH 1096. CK 24, CK 5.1. Repeat chest x-ray reveals similar findings, correlate for pneumonia. Right-sided chest tube remains in place which may be discontinued later today. Patient is complaining of significant pain to the right chest tube site and using Dilaudid around the clock. She states and [place] does not help. BuSpar changed to scheduled twice daily. Patient has been evaluated by Dr. Faith and not appropriate for inpatient rehab. 11/18: A she seen today on the [facility] floor. Patient was complaining of migraine headaches and Fioricet was resumed. Patient is complaining of feeling so weak that she cannot move. She remains with chest tube in place. Breathing status seems to be stable. She is pulse ox seen in the 90s at 5 L high flow nasal cannula. Patient has been afebrile. Heart rate 99, blood pressure 126/80, pulse ox 97% on high flow 5 L. Repeat chest x-ray reveals stable findings. WBC 14.2, hemoglobin 9.9, sodium 136, potassium 4.6, creatinine 0.37. Patient is on cefepime as well as Lovenox, IV Solu-Medrol and supplements. 11/19: Patient is complaining of continued pain for which [place] changed to Percocet. She has been receiving Dilaudid around the clock. She remains with chest tube in place. Pulse ox is been 91-98% on 4 L nasal cannula. She has been afebrile, heart rate 96 but episodes of tachycardia with movement, blood pressure 99/64. Blood sugars are running between 88 and 149. Discussed discharge planning which will be to [facility] or [facility] most likely on Sunday. 11/20: Patient had more leak yesterday with pneumothorax require chest tube without adjustment of her chest tube felt much comfortable finally continue current management and limited physical therapy at this point is still the plan probably for subacute rehab. REVIEW OF SYSTEMS Constitutional: No fever, no chills, no night sweats. No weight change. Reports weakness, Reports fatigue. No daytime sleepiness. EENT: Reports headache. No blurred vision or double vision, no loss of vision. No loss of Hearing, no ringing in the ears, no dizziness. No nasal drainage or congestion. No epistaxis. No sore throat. Lungs: Reports shortness of breath, Reports cough, no sputum production. No wheezing. Cardiovascular: No chest pain, no lower extremity edema. No palpitations. No paroxysmal nocturnal dyspnea. No orthopnea. No lightheadedness or dizziness. No syncopal episodes. Abdominal: No abdominal pain. No nausea, vomiting. No diarrhea. No constipation. No bloody or tarry stools. No loss of appetite. Genitourinary: No dysuria, increased frequency, urgency. No urinary retention. Musculoskeletal: No myalgias. No muscle weakness, no gait dysfunction, no fr equent falls. No back pain. No neck pain. Integumentary: No wounds, no lesions. Neurologic: No aphasia. No facial droop. No change in mentation. No head injury. No headache. No paralysis. No paresthesia. Psychiatric: No depression. No anxiety. Endocrine: No abnormal blood sugars. PHYSICAL EXAMINATION Gen: This is a 39-year-old female. Patient is resting in bed and appears to be comfortable at rest with 8 L high flow nasal cannula. Patient is eating breakfast andbe tachycardic. HEENT: Head is atraumatic, normocephalic. Pupils equal, round. Sclerae is anicteric. NECK: Supple. No JVD. No lymphadenopathy. No thyromegaly. Oral mucous membranes are dry. LUNGS: Scattered rhonchi, crackles in the bases. No intercostal retractions. HEART: Regular rate and rhythm. No murmur. ABDOMEN: Soft. Bowel sounds are present. No masses. No tenderness. EXTREMITIES: No pedal edema. No calf tenderness. Dorsalis pedis palpable bilaterally. NEUROLOGICAL: Patient is awake, alert and oriented x3. Cranial nerves 2 through 12 are grossly intact. ASSESSMENT AND PLAN 1. Acute hypoxic respiratory failure secondary to acute Covid 19 pneumonia, MSSA pneumonia, POA, successfully extubated . Consult with pulmonary medicine appreciated. Status post Tocilizumab. Patient intubated on November 06. Continue Lovenox 30 mg subcu twice daily, Solu-Medrol 60 mg IV push every 6 hours, zinc and vitamin supplements. Continue cefepime IV piggyback every 8 hours. 2. Right sided pneumothorax requiring chest tube 11/06 and 11/08. Patient is on IV Dilaudid for pain control, [place] changed to Percocet. Chest tube apparently was adjusted yesterday and finally started draining much better and patient feels very comfortable today 3. Acute exacerbation of mild intermittent bronchial asthma. Continue Ventolin inhaler 4 times daily as needed. 4. Left-sided pneumothorax requiring chest tube placed which another chest tube was put in yesterday. 5. Primary immunodeficiency. Which made her prognosis much worse with a Covid 19. 6. Chronic anemia most likely due to history of bleeding ulcers and alcohol abuse. 7. Tobacco use and dependence including taping. 8. Daily alcohol use/abuse. Patient apparently has had no alcohol intake for 7 days. Monitor closely for DTs 9. Recurrent depression and generalized anxiety disorder. Continue Abilify 7.5 mg daily, Wellbutrin 150 mg daily, BuSpar 10 mg changed to scheduled twice daily, continue Cymbalta 60 mg daily. 10. Acute anemia secondary to sepsis without blood loss. S/p transfusion of 1 unit of packed RBCs. 11. Migraine headaches. Continue Fioricet as needed. Hold Inderal 60 mg daily. 12. Sepsis with MSSA bacteremia, POA. Continue Kafzol. 13. Moderate protein calorie malnutrition. Patient maintain on tube feedings 14. Gastroesophageal reflux disease with history of bleeding ulcers. Continue Protonix 40 mg daily and Carafate 1 g 4 times daily. 15. DVT prophylaxis. Lovenox. Discharge planning: Possibly early this week. Objective - Vital Signs Vital signs: Vital Signs Temp 97.8 F 11/20/20 05:08 Pulse 95 11/20/20 05:08 Resp 19 11/20/20 05:08 BP 116/77 11/20/20 05:08 Pulse Ox 100 11/20/20 05:08 Intake & Output 11/19/20 11/19/2021 06:59 18:59 06:59 Intake Total 140 Output Total 0 0 Balance 0 0 140 Intake: IV 140 0.9 NS flush 40 Cefepime 2 gm In Sodium 100 Chloride 0.9% 100 ml @ 25 mls/hr IVPB Q8H [facility] Rx#: [id number] Output: Chest Tube Drainage 0 0 Chest Tube Right 0 0 Other: Voiding Method Bedpan Bedside Commode # Voids 1 8 # Bowel Movements 1 ABP, PAP, CO, CI - Last Documented Arterial Blood Pressure 119/75 - Labs CBC & Chem 7: 11/18/20 08:56 11/18/20 08:56 Labs: Abnormal Lab Results - Last 24 Hours (Table) 11/19/20 11/19/20 Range/Units 11:17 19:57 POC Glucose (mg/dL) 111 H 214 H (75-99) mg/dL
[2020-11-21] MEDS: CEFEPIME 2 GM in SODIUM CHLORIDE 0.9% 100 ML IVPB SCH ×2 (01:04→09:24)
[2020-11-21] MEDS: methylPREDNISolone SOD SUCCI 125 MG/2 ML VIAL IV SCH ×3 (05:19→17:39)
[2020-11-21] MEDS: oxyCODONE-APAP 5-325MG 1 EACH TAB PO PRN ×3 (05:20→19:22)
[2020-11-21 06:56] LABS: Glucose,Whole Blood 134 mg/dL (75-99)
[2020-11-21] MEDS: INSULIN ASPART (NovoLOG) 100 UNIT/ML VIAL SQ SCH ×4 (07:04→21:25)
[2020-11-21] MEDS: ALBUTEROL HFA INHALER INHALATION PRN ×3 (08:20→20:03)
--- NOTE | 2020-11-21 08:43 | XR ---
EXAMINATION TYPE: XR chest 1V portable DATE OF EXAM: 11/21/2020 COMPARISON: 11/20/2020 HISTORY: Follow-up right pneumothorax. TECHNIQUE: Single frontal view of the chest is obtained. FINDINGS: There is interval adjustment of right chest tube with tip now overlying the upper lung. Th ere is decrease of right pneumothorax with trace residual. There is unchanged 2.6 cm right upper lung lucent lesion. There are persistent moderate mid to lower lung opacities bilaterally. No significant pleural effusion. The cardiac silhouette size is within normal limits. The osseous structures are stable. The left central venous catheter remains in place. IMPRESSION: Improved right pneumothorax with trace residual. Persistent moderate opacities.
[2020-11-21] MEDS: CHOLECALCIFEROL 25 MCG (1000 IU) TABLET PO SCH (09:03)
[2020-11-21] MEDS: DULoxetine HCL 60 MG CAPSULE.DR PO SCH (09:04)
[2020-11-21] MEDS: SUCRALFATE 1 GM TAB PO SCH ×4 (09:04→21:24)
[2020-11-21] MEDS: ZINC SULFATE 220 MG CAP PO SCH (09:04)
[2020-11-21] MEDS: METOPROLOL TARTRATE 25 MG TAB PO SCH ×2 (09:04→21:24)
[2020-11-21] MEDS: busPIRone HCl 10 MG TAB PO SCH ×2 (09:04→21:24)
[2020-11-21] MEDS: ENOXAPARIN 30 MG/0.3 ML SYRINGE SQ SCH ×2 (09:05→21:24)
[2020-11-21] MEDS: HYDROcodone/APAP 5-325MG 1 EACH TAB PO PRN ×3 (09:05→22:13)
[2020-11-21] MEDS: buPROPion XL 150 MG TAB.ER.24H PO SCH (09:05)
[2020-11-21] MEDS: ARIPiprazole 5 MG TAB PO SCH (09:05)
[2020-11-21] MEDS: TOPIRAMATE 25 MG TAB PO SCH (09:05)
[2020-11-21] MEDS: PANTOPRAZOLE 40 MG/10 ML VIAL IVP SCH ×2 (09:06→21:25)
[2020-11-21] MEDS: ASCORBIC ACID 500 MG TAB PO SCH (09:10)
--- NOTE | 2020-11-21 09:39 | P.PN ---
Subjective Progress Note Date: 11/21/20 Principal diagnosis: Persistent right pneumothorax. Past medical history significant for GI bleed secondary to history of 2 nonbleeding antral ulcers requiring transfusion of 2 units packed red blood cells, asthma, irritable bowel syndrome, anxiety, depression, bipolar, post traumatic stress disorder, fibromyalgia, chronic ongoing tobacco, draping use and EtOH abuse. The patient was seen in follow-up today 11/21/2020 at her bedside on the fourth floor medical surgical unit. Currently the patient is sitting up to the bedside edge, is awake, alert and oriented 3 and is in no acute distress. Denies any complaints of shortness of breath although is complaining of some pain to her chest tube insertion site. Oxygen saturation are 97-99% on 4 L nasal cannula and she is achieving 1000 mL on her incentive spirometry. Right pleural chest tube remains in place to low continuous wall suction -20 cm H2O. Air leak is present although slightly improved from yesterday. Continues to drain scant thin serosanguineous drainage. The right pleural chest tube was slightly man ipulated yesterday and resecured in place. Chest x-ray this morning demonstrates an improved right pneumothorax with trace residual. The patient remains afebrile the last 24 hours. Objective - Vital Signs Vital signs: Vital Signs Temp 98.1 F 11/21/20 05:10 Pulse 102 H 11/21/20 05:10 Resp 17 11/21/20 05:10 BP 101/67 11/21/20 05:10 Pulse Ox 97 11/21/20 05:10 Intake & Output 11/20/20 11/21/20 11/21/20 18:59 06:59 18:59 Intake Total 200 Output Total 300 50 Balance -100 -50 Weight 56.6 kg Intake: Oral 200 Output: Chest Tube Drainage 50 Chest Tube Right 50 Urine 300 Other: Voiding Method Bedpan # Voids 2 # Bowel Movements 1 ABP, PAP, CO, CI - Last Documented Arterial Blood Pressure 119/75 - Constitutional General appearance: Present: average body habitus, cooperative, no acute distress - EENT Eyes: Present: normal appearance. Absent: scleral icterus ENT: Present: hearing grossly normal - Neck Details: No JVD, neck is supple, no lymphadenopathy. - Respiratory Details: Lung sounds with few scattered rhonchi and expiratory wheezes throughout. Diminished her bilateral bases. Respirations are symmetrical and nonlabored. Oxygen saturation are 97-99% on 4 L nasal cannula. Achieving 1000 mL on her incentive spirometry. Right pleural chest tube remains in place to low continuous wall suction -20 cm H2O. Intermittent air leak is present. Draining thin scant serosanguineous drainage. - Cardiovascular Details: Regular rhythm and rate. S1 and S2 present, negative for S3, gallop or murmur. Remote telemetry showing normal sinus rhythm heart rate 92 he p.m. No edema present. - Gastrointestinal Gastrointestinal Comment(s): Abdomen is soft, nontender and nondistended. Active bowel sounds present in all 4 abdominal quadrants. No guarding or rigidity. Tolerating oral intake. - Genitourinary Genitourinary Comment(s): Continues to void. - Integumentary Integumentary Comment(s): Skin is warm and dry. No clubbing or cyanosis is present. - Neurologic Neurologic: Present: CNII-XII intact. Absent: focal deficits - Musculoskeletal Musculoskeletal: Present: gait normal, generalized weakness, strength equal bilaterally - Psychiatric Psychiatric: Present: A&O x's 3, appropriate affect, intact judgment & insight - Allied health notes Allied health notes reviewed: nursing - Labs CBC & Chem 7: 11/18/20 08:56 11/18/20 08:56 Labs: Abnormal Lab Results - Last 24 Hours (Table) 11/20/20 11/20/20 11/21/20 Range/Units 16:41 20:48 06:55 POC Glucose (mg/dL) 107 H 160 H 134 H (75-99) mg/dL - Imaging and Cardiology Chest x-ray: report reviewed, image reviewed Assessment and Plan Assessment: 1. Persistent right pneumothorax despite right pleural chest tube being in place 2. Acute hypoxic respiratory failure secondary to acute COVID 19 pneumonia 3. MSSA bacteremia, sputum, pleural fluid, currently on Maxipime for antibiotic coverage 4. History of anemia with nonbleeding antral ulcers, status post transfusion of 1 unit of packed red blood cells on admission 5. Chronic ongoing tobacco dependence and vaping use 6. Irritable bowel syndrome 7. History of fibromyalgia 8. History of asthma 9. History of bipolar disorder 10. History of ADHD 11. History of depression 12. History of EtOH abuse, drinks 1 pint of tequila daily Plan: 1. Keep right pleural chest tube to low continuous wall suction -20 cm H2O. Continue to monitor for air leak and right pneumothorax resolution. 2. No surgical intervention is warranted at this time. 3. Encourage use of her incentive spirometry 10 times every hour while awake. 4. Wean oxygen as tolerated. 5. Pulmonary management recommendations per Dr. Cruz. 6. Continue to monitor her daily chest x-rays. 7. More recommendations to follow based on patient's clinical course. Time with Patient: Less than 30
[2020-11-21] MEDS: TRIAMCINOLONE 0.1% CREAM 80 GM TUBE TOPICAL SCH ×2 (09:47→21:26)
--- NOTE | 2020-11-21 10:34 | P.PN ---
Subjective Progress Note Date: 11/21/20 HISTORY OF PRESENT ILLNESS This is a 39-year-old female patient of Dr. Gonzalez with past medical history of GI bleed in 2008, July 2020 was admitted for GI bleed secondary to 2 no nbleeding antral ulcers requiring transfusion 2 units packed RBCs, tobacco use, alcohol abuse, recurrent depression, generalized anxiety disorder. Patient was diagnosed with COVID-19 on October 30. She complains of increasing shortness of breath, cough, congestion, fever and chills and hoarseness. She continued to worsen significantly over the past 2 days. She also complains of bloody sputum production. Patient came into [facility] emergency center for evaluation. Temperature 98.3, heart rate 102, respiratory rate 40, blood pressure 95/64, pulse ox 71%. EKG was a sinus rhythm no acute ST elevation. W BC 9.4, hemoglobin 8.6, platelet count 284. Sodium 135, potassium 2.8, chloride 102, CO2 21, BUN 19 creatinine 0.88. Blood sugar 92. AST 71, ALT 24, alkaline phosphatase 264 [place] phosphatase 264, LDH 2067, CA reactive protein 320.8. Lactic acid 3.1. CT angiogram of the chest reveals no evidence pulmonary embolism. Severe pulmonary interstitial and airspace edema. Chest x-ray reveals pulmonary interstitial pneumonia worse than recent exam. Some airspace component. Patient is status post 2 L of IV fluids, potassium replacement, Dilaudid, patient seen by pulmonary medicine and started on Tocilizumab. 11/05: Patient remains in the intensive care unit. She is a nonrebreather mask and AorVp and can maintain a pulse ox in the 90s. If she removes these, patient follows less than 70s. She is very anxious today and has many questions. She does have large number of psychiatric medications which have been resumed. We will also add and Xanax twice daily as needed. She has been afebrile, heart rate 89, blood pressure 116/79, pulse ox 95%. Repeat blood work reveals WBC 11.8, hemoglobin 7.7, platelet count 243. D-dimer 1.95. Sodium 135, electrolyt es otherwise normal, BUN 18 creatinine 0.45. Blood sugars running between 117- 129. AST 48, ALT 18, alkaline phosphatase 218, LDH 2243. C-reactive protein 254. Patient had 2 blood cultures, one is showing no growth at 24 hours and the second obtained at 2240 showing gram-positive cocci. She was started on vancomycin. 11/06: Patient remains in ICU, still on a BiPAP treatments,, continuously, terri barber did not have any meals for the past 72 hours secondary to hypoxemia and air hunger without the reading device. Patient has not slept well at all, cytokinin markers are elevated, blood culture growing Staphylococcus from specimen collected November 03 are pending sensitivity. Patient currently is on IV cefazolin, IV vancomycin, followed by infectious disease. So Medrol 60 mg every 6 hours, most of her oral medications cannot be complied upon secondary to hypoxemia event removed briefly. Hemoglobin at 7.2, blood gas shows pCO2 54, PaO2 of 67, 7.39 pH. Double basic count of under 10, creatinine of 0.5, LDH 1845, alkaline phosphatase 194. Albumin low at 2.6, blood pressure stable,Heart rate of 114, blood pressure of 135/90. Pulse ox 85-86 at BiPAP treatments. 11/07 yesterday afternoon, patient required placement of right chest tube secondary to spontaneous pneumothorax placed by the ER doctor,, patient has worsening respiratory status, and was intubated by the ER physician currently with tidal volume of 40, PEEP of 10, assist control rate of 24, FiO2 of 80%. There is residual small pneumothorax right side, there is a left subclavian triple-lumen placed by Dr. Harrington today. There is consult for nutrition, has an OG tube, for which feedings would be started once completed. Chest x-ray shows bilateral diffuse infiltrates, creatinine of 0.4, LDH of 1630, CRP of 36 platelet count 132, hemoglobin 7.3 11/08: Patient remains in the intensive care unit, intubated and on mechanical ventilation with FiO2 100%, tidal volume 400 and PEEP of 10. Patient is currently on sedation. Repeat chest x-ray today reveals increase in size of right-sided pneumothorax since previous measuring of 3.5 cm today compared to 1.2 cm yesterday. Severe interstitial infiltrates throughout the lungs bilaterally slightly increased from previous. A second right-sided chest tube was placed today by Dr. Davison. Repeat blood work reveals WBC 5.2, hemoglobin 6.2, platelet count 133. Sodium 141, potassium 3.5, chloride 107, CO2 35, BUN 24 and creatinine 0.46. Blood sugar 132. Alkaline phosphatase 154. D-dimer 6.35. Patient is ordered for transfusion 1 unit packed RBCs today. Blood culture is MSSA and patient is on Ancef 2 g every 8 hours. Pleural fluid culture in progress. Patient has been afebrile, heart rate low 100s, respiratory rate 27, blood pressure 135/93, pulse ox 96%. Patient will be started on tube feedings today. 11/09: She remains intubated and on mechanical ventilation. She is on both Nimbex and Propofol. She remains intubated and on mechanical ventilation with tidal volume 400, FiO2 65 and PEEP of 10. Repeat chest x-ray reveals improving right apical pneumothorax measuring less than 5%. Stable bilateral diffuse infiltrates. WBC 8, hemoglobin 7.8 status post 1 unit of packed RBCs. Platelet count 123. Sodium 141, potassium 3.9, chloride 105, CO2 37. BUN 28 creatinine 0.51. Blood sugar 142. Inflammatory markers are improving with d-dimer 7.09, fibrinogen 159, LDH 1249, C-reactive protein 8.3, CK 23. Patient is on Kefzol for antibiotics. She remains with right-sided chest tube. She has been a febrile, heart rate 80, blood pressure 116/78, pulse ox 92%. Patient is not requiring vasopressors. 11/10: Initial chest x-ray this morning revealed interval development of 50% left-sided pneumothorax. Patient is status post chest tube placement on the left by Dr. Davison. Repeat chest x-ray revealed bilateral apical pneumothoraces measuring less than 5. Stable on the right improved on the left. Diffuse bilateral pulmonary parenchymal disease stable. Patient remains intubated and on mechanical ventilation. She is now off Nimbex. Tidal volume 500, FiO2 60% and PEEP of 8. Patient is on tube feedings. Repeat blood work reveals WBC 7.5, hemoglobin 7.7, platelet count 126. Sodium 139, potassium 3.3 and was replaced, chloride 98, CO2 38, BUN 28 creatinine 0.41. Cultures are running between 134-150. D-dimer 0.05, LDH 1338, CK 65, C-reactive protein less than 5. Sputum culture is in progress. Blood cultures no growth at 24 hours. All previous blood cultures are showing no growth. IgG is low at 471. Request a nurse contact Dr. Davison about IVIG infusion. 11/11: She remains in the intensive care unit, intubated and on mechanical ventilation with tidal volume 400, FiO2 50% and PEEP of 6. Patient now has bilateral chest tubes in place for bilateral pneumothoraces with right-sided air leak. Weaning will be attempted today. She has been afebrile, heart rate 95, blood pressure 148/81, pulse ox 96%. Repeat blood work reveals W BC 5.8, hemoglobin 10.3, platelet count 101. D-dimer 6.03. C-reactive protein less than 5, CK 44. LDH 1234. Sodium 133, potassium 3.8, chloride 94, CO2 38, BUN 22 and creatinine 0.32. Blood culture, sputum culture, pleural fluid culture also positive for MSSA. Patient is covered with Kefzol. 11/12: Patient remains in intensive care unit, intubated and on mechanical ventilation with tidal volume 400, FiO2 50% and PEEP of 6. She failed weaning trial yesterday and she was desatting and back on propofol as well as Precedex and fentanyl drips were added. Patient has been afebrile, heart rate 86, blood pressure 134/68, pulse ox 90%, respiratory rate 24. Repeat blood work reveals WBC 17.3, hemoglobin 9, platelets 164. Sodium 134, potassium 3.6, chloride 97, CO2 30, BUN 19 and creatinine 0.33. Blood sugars running between 127 and 141. Alkaline phosphatase 149. LDH 1437. C-reactive protein 6.4. Repeat chest x-ray reveals slight interval increase in the right-sided pneumothorax compared to prior exam. Correlate for pneumonia, edema or ARDS. She remains with bilateral chest tubes in place. Prognosis remains guarded. 11/13: Patient remains in the intensive care unit. She has been successfully extubated this morning and is on 15 L high flow nasal cannula. She has been afebrile, heart rate in the 80s, blood pressure 109/75. Repeat blood work reveals W BC 10.7, hemoglobin 7.3, platelet count 116. D-dimer 5.54. Sodium 134, potassium 4.0, chloride 97, CO2 33, BUN 20, creatinine 0.29. Blood sugars running between 119 and 143. LDH 1057, CK 22, C-reactive protein less than 5. Chest x-ray reveals small right apical pneumothorax slightly smaller. Right chest tube. No change in patchy airspace opacities in the lung right greater than left. Left-sided chest tube unchanged in position and resolution of left small apical pneumothorax. The patient's mental status is not back to baseline. She is somewhat confused. 11/14: Patient remains in the intensive care unit. PO 80s on NRB. Patient encouraged to keep mask on face. She has been afebrile, HR 80s - 90s, RR 28, BP 129/95. Repeat blood work reveals WBC 19.1, HGB 8.9, PLT 152. Sodium 134, K 3.7, Chloride 94, CO2 31. BUN 17, Creat 0.26. Ferritin 68.9. AST 49, ALT 17, AP149. LDH 2274. CK 61, CRP 29.4. CXR reveals stable diffuse infiltrates and small right apical pheumothorax. 11/15: Patient remains in the intensive care unit. Her breathing status appears to be stable. Pulse ox is running anywhere between 86 and 100% on 15 L high flow nasal cannula. She is complaining of right-sided pain in her chest secondary to the chest tube. Patient does have Dilaudid which she is receiving every 3 hours and we will add in [place]. The left-sided chest tube was removed yesterday. She has been afebrile, heart rate in the 90s, blood pressure 116/74. Chest x-ray reveals similar findings to prior. WBC 14.0, hemoglobin 8.8, platelet count 171. D-dimer 3.61. Sodium 134, potassium 4.3, chloride 96, CO2 33, BUN 25 and creatinine 0.34. Blood sugars are controlled. Alkaline phosphatase 128. LDH 1634. CK 49. C-reactive protein 21.8. No plan to palpation of the intensive care unit today. We'll plan for Seymour catheter to be removed. 11/16: Patient remains in intensive care unit. She is now on high flow nasal cannula at 10 L. She is having some sinus tachycardia especially with eating breakfast this morning. She is on Dilaudid IV every 3 hours and [place] was added yesterday and will encourage to use [place] today and try and wean off Dilaudid. She continues to have pain at the chest tube site. Chest x-ray this morning reveals no significant interval change. Right-sided pneumothorax is likely decreased. CTA of the chest reveals no evidence of pulmonary embolism. Right- sided pneumothorax. Right chest tube in good position in the major fissure. 11/17:Patient remains in the intensive care unit. She is tachycardic up to 137 this morning and pulmonary medicine started her on metoprolol. She's been afebrile, respiratory rate in the 20s, blood pressure 117/83, pulse ox is 88-97% on 8 L nasal cannula high flow. Repeat blood work reveals to be BBC 13, hemoglobin 8.6, platelet count 181. D-dimer 2.23. Sodium 135. Potassium 4.2, chloride 97, CO2 31, BUN 27 creatinine 0.34. Blood sugars running between 93 and 141. Liver function tests are normal. LDH 1096. CK 24, CK 5.1. Repeat chest x-ray reveals similar findings, correlate for pneumonia. Right-sided chest tube remains in place which may be discontinued later today. Patient is complaining of significant pain to the right chest tube site and using Dilaudid around the clock. She states and [place] does not help. BuSpar changed to scheduled twice daily. Patient has been evaluated by Dr. Faith and not appropriate for inpatient rehab. 11/18: A she seen today on the [facility] floor. Patient was complaining of migraine headaches and Fioricet was resumed. Patient is complaining of feeling so weak that she cannot move. She remains with chest tube in place. Breathing status seems to be stable. She is pulse ox seen in the 90s at 5 L high flow nasal cannula. Patient has been afebrile. Heart rate 99, blood pressure 126/80, pulse ox 97% on high flow 5 L. Repeat chest x-ray reveals stable findings. WBC 14.2, hemoglobin 9.9, sodium 136, potassium 4.6, creatinine 0.37. Patient is on cefepime as well as Lovenox, IV Solu-Medrol and supplements. 11/19: Patient is complaining of continued pain for which [place] changed to Percocet. She has been receiving Dilaudid around the clock. She remains with chest tube in place. Pulse ox is been 91-98% on 4 L nasal cannula. She has been afebrile, heart rate 96 but episodes of tachycardia with movement, blood pressure 99/64. Blood sugars are running between 88 and 149. Discussed discharge planning which will be to [facility] or [facility] most likely on Sunday. 11/20: Patient had more leak yesterday with pneumothorax require chest tube without adjustment of her chest tube felt much comfortable finally continue current management and limited physical therapy at this point is still the plan probably for subacute rehab. 11/21: Patient is feeling much better today her right-sided pneumothorax and pleural effusion are improved still have chest tube in C loss or drainage. Pneumonitis has improved significantly, patient still losing weight, as well as under control, still having the plan to go to subacute rehab either on Sunday or Sunday. REVIEW OF SYSTEMS Constitutional: No fever, no chills, no night sweats. No weight change. R eports weakness, Reports fatigue. No daytime sleepiness. EENT: Reports headache. No blurred vision or double vision, no loss of vision. No loss of Hearing, no ringing in the ears, no dizziness. No nasal drainage or congestion. No epistaxis. No sore throat. Lungs: Reports shortness of breath, Reports cough, no sputum production. No wheezing. Cardiovascular: No chest pain, no lower extremity edema. No palpitations. No paroxysmal nocturnal dyspnea. No orthopnea. No lightheadedness or dizziness. No syncopal episodes. Abdominal: No abdominal pain. No nausea, vomiting. No diarrhea. No constipation. No bloody or tarry stools. No loss of appetite. Genitourinary: No dysuria, increased frequency, urgency. No urinary retention. Musculoskeletal: No myalgias. No muscle weakness, no gait dysfunction, no frequent falls. No back pain. No neck pain. Integumentary: No wounds, no lesions. Neurologic: No aphasia. No facial droop. No change in mentation. No head injury. No headache. No paralysis. No paresthesia. Psychiatric: No depression. No anxiety. Endocrine: No abnormal blood sugars. PHYSICAL EXAMINATION Gen: This is a 39-year-old female. Patient is resting in bed and appears to be comfortable at rest with 8 L high flow nasal cannula. Patient is eating breakfast andbe tachycardic. HEENT: Head is atraumatic, normocephalic. Pupils equal, round. Sclerae is anicteric. NECK: Supple. No JVD. No lymphadenopathy. No thyromegaly. Oral mucous membranes are dry. LUNGS: Scattered rhonchi, crackles in the bases. No intercostal retractions. HEART: Regular rate and rhythm. No murmur. ABDOMEN: Soft. Bowel sounds are present. No masses. No tenderness. EXTREMITIES: No pedal edema. No calf tenderness. Dorsalis pedis palpable carrie aterally. NEUROLOGICAL: Patient is awake, alert and oriented x3. Cranial nerves 2 through 12 are grossly intact. ASSESSMENT AND PLAN 1. Acute hypoxic respiratory failure secondary to acute Covid 19 pneumonia, MSSA pneumonia, has been on supportive care seen pulmonary still on O2 still on updraft treatment and worsening complication of pneumothorax require attention at this point. 2. Right sided pneumothorax requiring chest tube 11/06 and 11/08. Patient is on IV Dilaudid for pain control, [place] changed to Percocet. Chest tube apparently was adjusted yesterday and finally started draining much better and patient feels very comfortable today 3. Acute exacerbation of mild intermittent bronchial asthma. Continue Ventolin inhaler 4 times daily as needed. 4. History of anxiety and depression: She is on multiple medication between BuSpar, Abilify, Wellbutrin and Cymbalta 5. Primary immunodeficiency. Which made her prognosis much worse with a Covid 19. 6. Chronic anemia most likely due to history of bleeding ulcers and alcohol abuse. 7. Tobacco use and dependence including taping. 8. Daily alcohol use/abuse. Patient apparently has had no alcohol intake for 7 days. Monitor closely for DTs 9. Debility: Continue physical therapy. 10. Acute anemia secondary to sepsis without blood loss. S/p transfusion of 1 unit of packed RBCs. 11. Migraine headaches. Continue Fioricet as needed. Hold Inderal 60 mg daily. 12. Sepsis with MSSA bacteremia, POA. Continue Kafzol. 13. Moderate protein calorie malnutrition. Patient maintain on tube feedings 14. Gastroesophageal reflux disease with history of bleeding ulcers. Continue Protonix 40 mg daily and Carafate 1 g 4 times daily. 15. DVT prophylaxis. Lovenox. Discharge planning: Possibly early this week. Objective - Vital Signs Vital signs: Vital Signs Temp 97.7 F 11/21/20 02:10 Pulse 94 11/21/20 02:10 Resp 15 11/21/20 02:10 BP 100/62 11/21/20 02:10 Pulse Ox 99 11/21/20 02:10 Intake & Output 11/20/20 11/20/20 11/21/20 06:59 18:59 06:59 Intake Total 140 200 Output Total 300 50 Balance 140 -100 -50 Weight 56.6 kg Intake: IV 140 0.9 NS flush 40 Cefepime 2 gm In Sodium 100 Chloride 0.9% 100 ml @ 25 mls/hr IVPB Q8H [facility] Rx#: [id number] Oral 200 Output: Chest Tube Drainage 50 Chest Tube Right 50 Urine 300 Other: Voiding Method Bedpan # Voids 8 ABP, PAP, CO, CI - Last Documented Arterial Blood Pressure 119/75 - Labs CBC & Chem 7: 11/18/20 08:56 11/18/20 08:56 Labs: Abnormal Lab Results - Last 24 Hours (Table) 11/20/20 11/20/20 11/20/20 Range/Units 06:57 16:41 20:48 POC Glucose (mg/dL) 113 H 107 H 160 H (75-99) mg/dL
[2020-11-21 11:55] LABS: Glucose,Whole Blood 112 mg/dL (75-99)
[2020-11-21] MEDS: SODIUM CHLORIDE 0.9% 1,000 ML IV SCH (13:17)
--- NOTE | 2020-11-21 15:45 | P.PN ---
Subjective Progress Note Date: 11/21/20 Principal diagnosis: CoVID 19 pneumonia This is a very pleasant 39-year-old female patient with a known history of GI bleeding with 2 nonbleeding antral ulcers per EGD, migraines, anxiety/depression, severe back pain, fibromyalgia, primary immunodeficiency disorder, irritable bowel syndrome, tobacco dependence, mild intermittent chronic bronchial asthma maintained on Advair. Presently 2 weeks ago she developed increasing shortness of breath cough congestion chills fever. She subsequently tested positive for CoVID 19 on 10/30/2020. Her shortness of breath continued to worsen she presented here to the emergency room last evening. Chest x-ray shows bilateral patchy infiltrates consistent with CoVID pneumonia as does CTA of the chest. No evidence of pulmonary embolism. She is seen today in consultation in the emergency room. She is currently sitting up at the bedside. She is quite hoarse, quite dyspneic on minimal exertion and conversation. Requiring 15 L high flow nasal cannula with nonrebreather mask to maintain O2 saturations in the 90s. White count 9.4. Hemoglobin 8.6. Platelets 284. Lymphocytes 0.6. D-dimer 1.06. Sodium 135. Potassium 4.0. Creatinine 0.88. Glucose 159. LDH 2067, C-reactive protein 320. The patient is seen today 11/05/2020 in follow-up in the intensive care unit. She is currently sitting up in bed. Awake and alert. Remains in mild respiratory distress. She is currently on AirVo at 60 L/m and 90% FiO2 along with a nonrebreather mask to maintain O2 saturations in the high 80s low 90s. Chest x-ray continues to show bilateral patchy infiltrates. Blood culture reveals no growth. White count 11.8. Hemoglobin 7.7. Lymphocytes 0.3. D- dimer 1.95. Sodium 135. Potassium 3.8. Creatinine 0.45. LDH 2243. C-react maciel protein 254. She did receive to tocilizumab. Remains on vitamin supplements, IV Solu-Medrol, Lovenox. The patient is seen today 11/06/2020 in follow-up in the intensive care unit. She is currently resting fairly comfortably in bed. She is on BiPAP at 12/5 and 100% FiO2 to maintain O2 saturations in the low 90s. Chest x-ray continues to revealed patchy bilateral lung infiltrates more so on the bases. She has 0.9 normal saline at 75 ML's per hour. Her preliminary blood cultures are positive for Staphylococcus aureus. White count 8.0. Hemoglobin 7.2. Lymphocytes 0.1. D-dimer 4.74. Sodium 137. Potassium 3.5. Creatinine 0.50. LDH 1845. C- reactive protein 69.8. She's been initiated on vancomycin and cefazolin. Continued on Lovenox, IV Solu Medrol, vitamin supplements. She did receive to tocilizumab. On 11/14/2020, the patient is extubated. We'll managed to extubate the patient yesterday and she is currently on 100% nonrebreather facemask. She is awake and alert and she is following commands and answering questions. She is off the Precedex. She is still on fentanyl which is running at 2 mcg/kg per minute. This is managed to control her pain. Note that the patient had bilateral pneumothoraces and she has bilateral chest tubes in place. The right-sided ch est tube is showing intermittent air leak and there is a tiny right apical pneumothorax. The left-sided chest tube has no air leak and output is minimal in the left lung is well expanded without any evidence of pneumothorax. Nevertheless, I suspect that the patient may have potentially superinfection. She has grown MSSA in his sputum and in the pleural fluid and in her blood. She is on IV cefazolin. Nevertheless, her LDH is on the rise and the chest x-ray showing some new bilateral pulmonary infiltration and the possibility of a superinfection with gram-negative is possible. As such, I need to broaden her antibiotic coverage. Meanwhile, she is resting comfortably in bed on 100% nonrebreather facemask pH is communicating. She remains on IV Solu-Medrol. Inflammatory markers from today show a rise in the LDH which is currently up to 2274 and the CRP is up to 21. He d-dimer currently is at 5.67. The white cell count is up to 19.1. Hemoglobin is at 8.9. She is still nothing by mouth for now. No signs of any alcohol withdrawal well. No agitation. No focal neurological deficit. She seems to be much more comfortable at this point in time. The patient is seen today 11/15/2020 in follow-up in the intensive care unit. She is currently sitting up in bed. Awake and alert in no acute distress. She remains on 15 L high flow nasal cannula to maintain O2 saturations in the 90s. Chest x-ray continues to show bilateral infiltrates. There is a small right apical pneumothorax. Right-sided chest tube remains in place. Left-sided chest tube was removed yesterday. She did have MSSA in the sputum, pleural fluid and blood cultures. Follow-up blood cultures are revealing no growth. She remains on cefepime. 9NS @ KVO. She remains on IV Solu-Medrol, Lovenox 30 mg subcu taneous twice a day, vitamin supplements. The patient is seen today 11/16/2020 in follow-up in the intensive care unit. She is awake and alert in no acute distress. Sitting up in bed. She is down to 10 L high flow nasal cannula and maintaining O2 saturations in the low 90s. CAT scan of the chest ruled out pulmonary embolism. There is still a 20% right- sided pneumothorax. Right-sided chest tube remains in good position. No significant air leak. Only about 20 ML's output per shift. Positive for MSSA as were her blood cultures and sputum cultures. She remains on cefepime. She did receive tocilizumab. She is continued on IV Solu-Medrol, Lovenox, vitamin supplements. The patient is seen today 11/17/2020 in follow-up in intensive care unit. She is currently sitting up in bed. Awake and alert in no acute distress. Currently maintaining O2 saturation in the 90s on 8 L high flow nasal cannula. She did receive tocilizumab. Right-sided chest tube remains in place to suction. No air leak noted. Chest x-ray reveals minimal right apical pneumothorax. Still some bilateral airspace disease. Stable compared to previous. She remains on Lovenox, IV Solu-Medrol, bronchodilators, vitamin supplements. She is status post 1 unit of packed red blood cells this admission. Current hemoglobin 8.6. White count 13.0. Lymphocytes 0.3. D- dimer 2.23. Sodium 135. Potassium 4.2. Creatinine 0.34. LDH 1096. C- reactive protein 5.1. The patient is seen today 11/18/2020 in follow-up on the regular medical floor. She is currently sitting up in bed. Awake and alert in no acute distress. Feeling stronger today compared to yesterday. No worsening shortness of breath, cough or congestion. Maintaining good O2 saturations in the upper 90s on 5 L high flow nasal cannula. She's been afebrile. Hemodynamically stable. Right- sided chest tube remains in place. Small air leak still detected. Small right apical pneumothorax still present on chest x-ray. Follow-up blood cultures revealing no growth. White count 14.2. Hemoglobin 9.9. Lymphocytes 0.2. Sodium 136. Potassium 4.6. Creatinine 0.37. She remains on Lovenox, IV Solu- Medrol, vitamin supplements. Antibiotics in the form of cefepime. The patient is seen today 11/19/2020 in follow-up on the regular medical floor. She is currently sitting up in a chair at the bedside. Awake and alert in no acute distress. Right-sided chest tube remains in place to waterseal with significant leak today compared to yesterday. Follow-up chest x-ray was obtained and there is now a 50% pneumothorax on the right. Placed chest tube back on wall suction. Encourage increased use of incentive spirometer. 18 in good O2 saturations in the 90s on 3 L high flow nasal cannula. Follow-up blood cultures revealed no growth. She remains on cefepime and continued on Lovenox, IV sign Medrol, vitamin supplements. The patient is seen today 11/20/2020 in follow-up on the regular medical floor. She is sitting up in a chair at the bedside. Awake and alert in no acute distress. Maintaining O2 saturations in the 90s on 4 L/m per nasal cannula. He is afebrile. Hemodynamically stable. She remains on cefepime, IV Solu-Medrol, Lovenox, vitamin supplements. Right-sided chest tube remains in place to wall suction. Leak is still present. Persistent right-sided pneumothorax. Chest tube was manipulated this morning by CT services for better positioning. She continues to work well the incentive spirometer. The patient is seen today 11/21/2020 in follow-up on the regular medical floor. Currently sitting up in bed. Awake and alert in no acute distress. Maintaining O2 saturations in the 90s on 2 L/m per nasal cannula. Chest x-ray revealing improved right pneumothorax with trace residual. Persistent moderate opacities. Chest tube remains in place. Leak is still present. Objective - Vital Signs Vital signs: Vital Signs Temp 97.8 F 11/21/20 14:00 Pulse 107 H 11/21/20 14:00 Resp 16 11/21/20 14:00 BP 109/72 11/21/20 14:00 Pulse Ox 98 11/21/20 14:00 Intake & Output 11/20/20 11/21/20 11/21/20 18:59 06:59 18:59 Intake Total 200 200 Output Total 300 50 300 Balance -100 -50 -100 Weight 56.6 kg Intake: Oral 200 200 Output: Chest Tube Drainage 50 50 Chest Tube Right 50 50 Urine 300 250 Other: Voiding Method Bedpan Bedpan # Voids 2 # Bowel Movements 1 1 ABP, PAP, CO, CI - Last Documented Arterial Blood Pressure 119/75 - Exam GENERAL EXAM: Alert, pleasant 39-year-old female patient, currently on nasal cannula at 2 L, in no respiratory distress. HEAD: Normocephalic. EYES: Normal reaction of pupils, equal size. NOSE: Clear with pink turbinates. THROAT: No erythema or exudates. NECK: No masses, no JVD. CHEST: No chest wall deformity. Right-sided chest tube remains in place with significant leak. Continue to wall suction. LUNGS: Equal air entry with bilateral scattered rhonchi, crackles in the posterior bases. CVS: S1 and S2 normal with no audible murmur, regular rhythm. ABDOMEN: No hepatosplenomegaly, normal bowel sounds, no guarding or rigidity. SPINE: No scoliosis or deformity SKIN: No rashes CENTRAL NERVOUS SYSTEM: No focal deficits, tone is normal in all 4 extremities. EXTREMITIES: There is no peripheral edema. No clubbing, no cyanosis. Peripheral pulses are intact. - Labs CBC & Chem 7: 11/18/20 08:56 11/18/20 08:56 Labs: Abnormal Lab Results - Last 24 Hours (Table) 11/20/20 11/20/20 11/21/20 Range/Units 16:41 20:48 06:55 POC Glucose (mg/dL) 107 H 160 H 134 H (75-99) mg/dL 11/21/20 Range/Units 11:54 POC Glucose (mg/dL) 112 H (75-99) mg/dL Assessment and Plan Assessment: 1 Acute hypoxemic respiratory failure secondary to acute CoVID 19 pneumonia. Did receive tocilizumab. The patient did require intubation mechanical ventilatory support. She also developed bilateral pneumothoraces. Right-sided chest tube remains in place. Left-sided chest tube had been removed. Currently on 2 L high flow nasal cannula. 2 MSSA bacteremia, sputum, pleural fluid and currently on cefepime. Follow-up blood culture revealing no growth. 3 Anemia in a patient with a known history of nonbleeding ulcers with previous EGD and GI bleed, received 1 unit of packed red blood cells this admission. Current hemoglobin 9.9 4 History of chronic tobacco dependence, vaping 5 History of anxiety/depression 6 History of immunodeficiency disorder 7 Irritable bowel syndrome 8 History of migraine 9 Fibromyalgia. 10 History of chronic back pain Plan: The patient was seen and evaluated by Dr. Cruz Chest x-ray reviewed, residual right apical pneumothorax Chest tube remains in place Continue to wall suction, continues with air leak Follow up chest x-ray in a.m. Titrate down the FiO2 as tolerated Increase her activity as tolerated We will continue to follow I, the cosigning physician, performed a history & physical examination of the pa marilunt. Lungs sounds bilateral scattered rhonchi, crackles in the posterior bases. Maintaining O2 saturations in the 90s on 2 L nasal cannula. I discussed the assessment and plan of care with my nurse practitioner, Cecelia Salgado. I attest to the above note as dictated by her.
[2020-11-21 16:38] LABS: Glucose,Whole Blood 103 mg/dL (75-99)
[2020-11-21 20:36] LABS: Glucose,Whole Blood 161 mg/dL (75-99)
[2020-11-21] MEDS: MELATONIN 3 MG TABLET PO SCH (21:26)
[2020-11-21] MEDS ORDERED: TOPIRAMATE 25 MG TAB PO PRN (22:00)
[2020-11-22] MEDS: methylPREDNISolone SOD SUCCI 125 MG/2 ML VIAL IV SCH ×2 (01:00→04:41)
[2020-11-22] MEDS: ALPRAZolam 0.5 MG TAB PO PRN (01:06)
[2020-11-22] MEDS: HYDROcodone/APAP 5-325MG 1 EACH TAB PO PRN ×4 (04:39→22:36)
--- NOTE | 2020-11-22 06:20 | P.PN ---
Progress Note - Text Asked to reevaluate patient. See my previous consultation. I Patient reports feeling much better and with less shortness of breath. Reports requires assistance for standing and mobility within room. PT reports supervision for bed mobility and 2 person minimal assistance functional mobility and gait 2 feet. OT reports two-person minimal assistance functional mobility. Previously reported maximal assistance for upper dressing and bathing and total assistance for lower dressing. Two-person total assistance for toileting and moderate assistance for transfer. Nursing reports a patient still and precautions with regard to Covid. Comments: At this time patient with safety concerns and some ability tolerate and benefit from therapy. Current problem with bed situation at [facility] with regard to Covid positive as I'm sure you're probably already aware.
[2020-11-22 06:57] LABS: Glucose,Whole Blood 126 mg/dL (75-99)
[2020-11-22] MEDS: INSULIN ASPART (NovoLOG) 100 UNIT/ML VIAL SQ SCH ×4 (07:22→22:21)
[2020-11-22] MEDS: oxyCODONE-APAP 5-325MG 1 EACH TAB PO PRN ×3 (07:31→20:15)
[2020-11-22] MEDS: PANTOPRAZOLE 40 MG/10 ML VIAL IVP SCH ×2 (07:31→20:18)
[2020-11-22] MEDS: ENOXAPARIN 30 MG/0.3 ML SYRINGE SQ SCH (07:31)
[2020-11-22] MEDS: SUCRALFATE 1 GM TAB PO SCH ×4 (07:32→22:14)
[2020-11-22] MEDS: ASCORBIC ACID 500 MG TAB PO SCH (07:32)
[2020-11-22] MEDS: busPIRone HCl 10 MG TAB PO SCH ×2 (07:32→20:18)
[2020-11-22] MEDS: METOPROLOL TARTRATE 25 MG TAB PO SCH ×2 (07:32→20:18)
[2020-11-22] MEDS: CHOLECALCIFEROL 25 MCG (1000 IU) TABLET PO SCH (07:32)
[2020-11-22] MEDS: DULoxetine HCL 60 MG CAPSULE.DR PO SCH (07:32)
[2020-11-22] MEDS: ZINC SULFATE 220 MG CAP PO SCH (07:32)
[2020-11-22] MEDS: buPROPion XL 150 MG TAB.ER.24H PO SCH (07:33)
[2020-11-22] MEDS: ARIPiprazole 5 MG TAB PO SCH (07:33)
[2020-11-22] MEDS: TRIAMCINOLONE 0.1% CREAM 80 GM TUBE TOPICAL SCH ×2 (07:34→21:00)
[2020-11-22] MEDS: TOPIRAMATE 25 MG TAB PO SCH (07:34)
[2020-11-22] MEDS: ALBUTEROL HFA INHALER INHALATION PRN ×3 (08:23→15:58)
[2020-11-22 08:51] LABS: HCT 30.4 % (37.2-46.3); HGB 9.1 g/dL (12.0-15.0); MCH 27.2 pg (27.0-32.0); MCHC 29.9 g/dL (32.0-37.0); Mean Platelet Volume 11.5 fL (9.5-12.2); Platelet Count 250 X 10*3/uL (140-440); RBC 3.34 X 10*6/uL (4.10-5.20); RDW 17.2 % (11.5-14.5); WBC 13.58 X 10*3/uL (4.50-10.00)
--- NOTE | 2020-11-22 10:07 | XR ---
EXAMINATION TYPE: XR chest 1V portable DATE OF EXAM: 11/22/2020 COMPARISON: 11/21/2020 HISTORY: Right pneumothorax TECHNIQUE: Single frontal view of the chest is obtained. FINDINGS: There is an approximately 15% right-sided pneumothorax increased from the prior exam. Ches t tube is noted in position. Patchy bilateral infiltrate stable. Heart size stable. Left-sided centra l line unchanged. Osseous structures stable. IMPRESSION: 1. Patchy bilateral infiltrates with interval increase in size of a right apical pneumothorax now rachana suring 15%.
[2020-11-22] MEDS: SODIUM CHLORIDE 0.9% 1,000 ML IV SCH (10:24)
--- NOTE | 2020-11-22 11:10 | P.PN ---
Subjective Progress Note Date: 11/22/20 Principal diagnosis: Persistent right pneumothorax. Previous medical history of GI bleed secondary to history of 2 nonbleeding antral ulcers requiring transfusion of 2 units packed red blood cells, asthma, irritable bowel syndrome, anxiety, depression, bipolar, post traumatic stress disorder, fibromyalgia, chronic ongoing tobacco, draping use and EtOH abuse. The patient was seen and examined this morning on the fourth floor medical surgical unit, chest xray reviewed with Dr. Muñoz. She is sitting up in a recliner in no acute distress. Denies pain except for minimal pain to her chest tube insertion site, states shortness of breath has significantly improved since admission. Currently on room air with oxygen saturations in the mid 90s. Right pleural chest tube remains present to continuous wall suction, continuous air leak present. No other new concerns. Objective - Vital Signs Vital signs: Vital Signs Temp 98.3 F 11/22/20 09:52 Pulse 105 H 11/22/20 09:52 Resp 18 11/22/20 09:52 BP 110/70 11/22/20 09:52 Pulse Ox 94 L 11/22/20 09:52 Intake & Output 11/21/20 11/22/20 11/22/20 18:59 06:59 18:59 Intake Total 680 Output Total 600 Balance 80 Intake: Oral 680 Output: Chest Tube Drainage 50 Chest Tube Right 50 Urine 550 Other: Voiding Method Bedpan # Voids 4 # Bowel Movements 1 ABP, PAP, CO, CI - Last Documented Arterial Blood Pressure 119/75 - Exam CONSTITUTIONAL: Appears comfortable, cooperative, no acute distress RESPIRATORY: Lungs sounds diminished bilaterally, right greater than left. Respirations even, nonlabored. Currently on room air with oxygen saturation 95%. Able to achieve 1000 mL on incentive spirometry. Strong cough. CARDIOVASCULAR: S1, S2 present. Tachy but regular rate and rhythm, sinus tach on telemetry. Palpable peripheral pulses bilaterally. No edema present. No calf pain or tenderness noted. GASTROINTESTINAL: Abdomen soft, nontender, nondistended. Active bowel sounds present 4 quadrants. Tolerating diet. GENITOURINARY: Continues to void INTEGUMENTARY: Skin is warm and dry with evidence of good perfusion. NEUROLOGIC: Cranial nerves II through XII intact MUSKULOSKELETAL: Able to move all extremities, strength equal bilaterally, gait normal PSYCHIATRIC: Alert and oriented to person place and time, appropriate affect, intact judgment and insight INVASIVE LINES AND TUBES: Right pleural chest tube present and connected to wall suction, continuous air leak present. - Allied health notes Allied health notes reviewed: nursing - Labs CBC & Chem 7: 11/22/20 06:29 11/18/20 08:56 Labs: Abnormal Lab Results - Last 24 Hours (Table) 11/21/20 11/21/20 11/21/20 Range/Units 11:54 16:37 20:34 WBC (4.50-10.00) X 10*3/uL RBC (4.10-5.20) X 10*6/uL Hgb (12.0-15.0) g/dL Hct (37.2-46.3) % MCHC (32.0-37.0) g/dL RDW (11.5-14.5) % POC Glucose (mg/dL) 112 H 103 H 161 H (75-99) mg/dL 11/22/20 11/22/20 Range/Units 06:29 06:54 WBC 13.58 H (4.50-10.00) X 10*3/uL RBC 3.34 L (4.10-5.20) X 10*6/uL Hgb 9.1 L (12.0-15.0) g/dL Hct 30.4 L (37.2-46.3) % MCHC 29.9 L (32.0-37.0) g/dL RDW 17.2 H (11.5-14.5) % POC Glucose (mg/dL) 126 H (75-99) mg/dL - Imaging and Cardiology Chest x-ray: report reviewed, image reviewed Assessment and Plan Assessment: 1. Persistent right pneumothorax despite right pleural chest tube being in place 2. Acute hypoxic respiratory failure secondary to acute COVID 19 pneumonia 3. MSSA bacteremia, sputum, pleural fluid 4. History of anemia with nonbleeding antral ulcers, status post transfusion of 1 unit of packed red blood cells on admission 5. Chronic ongoing tobacco dependence and vaping use 6. Irritable bowel syndrome 7. History of fibromyalgia 8. History of asthma 9. History of bipolar disorder 10. History of ADHD 11. History of depression 12. History of EtOH abuse, drinks 1 pint of tequila daily Plan: 1. Keep right pleural chest tube to continuous wall suction. Continue to monitor for air leak and right pneumothorax resolution. 2. No surgical intervention is warranted at this time. 3. Encourage use of her incentive spirometry 10 times every hour while awake. 4. Bronchodilators, steroids per pulmonology 5. Continue to monitor her daily chest x-rays. 6. More recommendations to follow based on patient's clinical course. Time with Patient: Greater than 30
[2020-11-22 11:22] LABS: Glucose,Whole Blood 111 mg/dL (75-99)
[2020-11-22 11:48] LABS: African American GFR (CKD) 149.9 (60.0-200.0); Albumin 4.2 g/dL (3.80-4.90); Albumin/Globulin Ratio 2.21 (1.60-3.17); Anion Gap 8.6 mmol/L (4.00-12.00); BUN/Creat Ratio 62.5 Ratio (12.00-20.00); Calcium 9.8 mg/dL (8.7-10.3); Carbon Dioxide 26.4 mmol/L (21.6-31.8); Globulin 1.9 g/dL (1.6-3.3); Non-African American GFR(CKD) 129.4 (60.0-200.0); Potassium 4.4 mmol/L (3.5-5.5); Total Bilirubin 0.4 mg/dL (0.3-1.2); Total Protein 6.1 g/dL (6.2-8.2)
--- NOTE | 2020-11-22 12:04 | P.PN ---
Subjective Progress Note Date: 11/22/20 HISTORY OF PRESENT ILLNESS This is a 39-year-old female patient of Dr. Gonzalez with past medical history of GI bleed in 2008, July 2020 was admitted for GI bleed secondary to 2 no nbleeding antral ulcers requiring transfusion 2 units packed RBCs, tobacco use, alcohol abuse, recurrent depression, generalized anxiety disorder. Patient was diagnosed with COVID-19 on October 30. She complains of increasing shortness of breath, cough, congestion, fever and chills and hoarseness. She continued to worsen significantly over the past 2 days. She also complains of bloody sputum production. Patient came into [facility] emergency center for evaluation. Temperature 98.3, heart rate 102, respiratory rate 40, blood pressure 95/64, pulse ox 71%. EKG was a sinus rhythm no acute ST elevation. W BC 9.4, hemoglobin 8.6, platelet count 284. Sodium 135, potassium 2.8, chloride 102, CO2 21, BUN 19 creatinine 0.88. Blood sugar 92. AST 71, ALT 24, alkaline phosphatase 264 [place] phosphatase 264, LDH 2067, CA reactive protein 320.8. Lactic acid 3.1. CT angiogram of the chest reveals no evidence pulmonary embolism. Severe pulmonary interstitial and airspace edema. Chest x-ray reveals pulmonary interstitial pneumonia worse than recent exam. Some airspace component. Patient is status post 2 L of IV fluids, potassium replacement, Dilaudid, patient seen by pulmonary medicine and started on Tocilizumab. 11/05: Patient remains in the intensive care unit. She is a nonrebreather mask and AorVp and can maintain a pulse ox in the 90s. If she removes these, patient follows less than 70s. She is very anxious today and has many questions. She does have large number of psychiatric medications which have been resumed. We will also add and Xanax twice daily as needed. She has been afebrile, heart rate 89, blood pressure 116/79, pulse ox 95%. Repeat blood work reveals WBC 11.8, hemoglobin 7.7, platelet count 243. D-dimer 1.95. Sodium 135, electrolyt es otherwise normal, BUN 18 creatinine 0.45. Blood sugars running between 117- 129. AST 48, ALT 18, alkaline phosphatase 218, LDH 2243. C-reactive protein 254. Patient had 2 blood cultures, one is showing no growth at 24 hours and the second obtained at 2240 showing gram-positive cocci. She was started on vancomycin. 11/06: Patient remains in ICU, still on a BiPAP treatments,, continuously, terri barber did not have any meals for the past 72 hours secondary to hypoxemia and air hunger without the reading device. Patient has not slept well at all, cytokinin markers are elevated, blood culture growing Staphylococcus from specimen collected November 03 are pending sensitivity. Patient currently is on IV cefazolin, IV vancomycin, followed by infectious disease. So Medrol 60 mg every 6 hours, most of her oral medications cannot be complied upon secondary to hypoxemia event removed briefly. Hemoglobin at 7.2, blood gas shows pCO2 54, PaO2 of 67, 7.39 pH. Double basic count of under 10, creatinine of 0.5, LDH 1845, alkaline phosphatase 194. Albumin low at 2.6, blood pressure stable,Heart rate of 114, blood pressure of 135/90. Pulse ox 85-86 at BiPAP treatments. 11/07 yesterday afternoon, patient required placement of right chest tube secondary to spontaneous pneumothorax placed by the ER doctor,, patient has worsening respiratory status, and was intubated by the ER physician currently with tidal volume of 40, PEEP of 10, assist control rate of 24, FiO2 of 80%. There is residual small pneumothorax right side, there is a left subclavian triple-lumen placed by Dr. Harrington today. There is consult for nutrition, has an OG tube, for which feedings would be started once completed. Chest x-ray shows bilateral diffuse infiltrates, creatinine of 0.4, LDH of 1630, CRP of 36 platelet count 132, hemoglobin 7.3 11/08: Patient remains in the intensive care unit, intubated and on mechanical ventilation with FiO2 100%, tidal volume 400 and PEEP of 10. Patient is currently on sedation. Repeat chest x-ray today reveals increase in size of right-sided pneumothorax since previous measuring of 3.5 cm today compared to 1.2 cm yesterday. Severe interstitial infiltrates throughout the lungs bilaterally slightly increased from previous. A second right-sided chest tube was placed today by Dr. Davison. Repeat blood work reveals WBC 5.2, hemoglobin 6.2, platelet count 133. Sodium 141, potassium 3.5, chloride 107, CO2 35, BUN 24 and creatinine 0.46. Blood sugar 132. Alkaline phosphatase 154. D-dimer 6.35. Patient is ordered for transfusion 1 unit packed RBCs today. Blood culture is MSSA and patient is on Ancef 2 g every 8 hours. Pleural fluid culture in progress. Patient has been afebrile, heart rate low 100s, respiratory rate 27, blood pressure 135/93, pulse ox 96%. Patient will be started on tube feedings today. 11/09: She remains intubated and on mechanical ventilation. She is on both Nimbex and Propofol. She remains intubated and on mechanical ventilation with tidal volume 400, FiO2 65 and PEEP of 10. Repeat chest x-ray reveals improving right apical pneumothorax measuring less than 5%. Stable bilateral diffuse infiltrates. WBC 8, hemoglobin 7.8 status post 1 unit of packed RBCs. Platelet count 123. Sodium 141, potassium 3.9, chloride 105, CO2 37. BUN 28 creatinine 0.51. Blood sugar 142. Inflammatory markers are improving with d-dimer 7.09, fibrinogen 159, LDH 1249, C-reactive protein 8.3, CK 23. Patient is on Kefzol for antibiotics. She remains with right-sided chest tube. She has been a febrile, heart rate 80, blood pressure 116/78, pulse ox 92%. Patient is not requiring vasopressors. 11/10: Initial chest x-ray this morning revealed interval development of 50% left-sided pneumothorax. Patient is status post chest tube placement on the left by Dr. Davison. Repeat chest x-ray revealed bilateral apical pneumothoraces measuring less than 5. Stable on the right improved on the left. Diffuse bilateral pulmonary parenchymal disease stable. Patient remains intubated and on mechanical ventilation. She is now off Nimbex. Tidal volume 500, FiO2 60% and PEEP of 8. Patient is on tube feedings. Repeat blood work reveals WBC 7.5, hemoglobin 7.7, platelet count 126. Sodium 139, potassium 3.3 and was replaced, chloride 98, CO2 38, BUN 28 creatinine 0.41. Cultures are running between 134-150. D-dimer 0.05, LDH 1338, CK 65, C-reactive protein less than 5. Sputum culture is in progress. Blood cultures no growth at 24 hours. All previous blood cultures are showing no growth. IgG is low at 471. Request a nurse contact Dr. Davison about IVIG infusion. 11/11: She remains in the intensive care unit, intubated and on mechanical ventilation with tidal volume 400, FiO2 50% and PEEP of 6. Patient now has bilateral chest tubes in place for bilateral pneumothoraces with right-sided air leak. Weaning will be attempted today. She has been afebrile, heart rate 95, blood pressure 148/81, pulse ox 96%. Repeat blood work reveals W BC 5.8, hemoglobin 10.3, platelet count 101. D-dimer 6.03. C-reactive protein less than 5, CK 44. LDH 1234. Sodium 133, potassium 3.8, chloride 94, CO2 38, BUN 22 and creatinine 0.32. Blood culture, sputum culture, pleural fluid culture also positive for MSSA. Patient is covered with Kefzol. 11/12: Patient remains in intensive care unit, intubated and on mechanical ventilation with tidal volume 400, FiO2 50% and PEEP of 6. She failed weaning trial yesterday and she was desatting and back on propofol as well as Precedex and fentanyl drips were added. Patient has been afebrile, heart rate 86, blood pressure 134/68, pulse ox 90%, respiratory rate 24. Repeat blood work reveals WBC 17.3, hemoglobin 9, platelets 164. Sodium 134, potassium 3.6, chloride 97, CO2 30, BUN 19 and creatinine 0.33. Blood sugars running between 127 and 141. Alkaline phosphatase 149. LDH 1437. C-reactive protein 6.4. Repeat chest x-ray reveals slight interval increase in the right-sided pneumothorax compared to prior exam. Correlate for pneumonia, edema or ARDS. She remains with bilateral chest tubes in place. Prognosis remains guarded. 11/13: Patient remains in the intensive care unit. She has been successfully extubated this morning and is on 15 L high flow nasal cannula. She has been afebrile, heart rate in the 80s, blood pressure 109/75. Repeat blood work reveals W BC 10.7, hemoglobin 7.3, platelet count 116. D-dimer 5.54. Sodium 134, potassium 4.0, chloride 97, CO2 33, BUN 20, creatinine 0.29. Blood sugars running between 119 and 143. LDH 1057, CK 22, C-reactive protein less than 5. Chest x-ray reveals small right apical pneumothorax slightly smaller. Right chest tube. No change in patchy airspace opacities in the lung right greater than left. Left-sided chest tube unchanged in position and resolution of left small apical pneumothorax. The patient's mental status is not back to baseline. She is somewhat confused. 11/14: Patient remains in the intensive care unit. PO 80s on NRB. Patient encouraged to keep mask on face. She has been afebrile, HR 80s - 90s, RR 28, BP 129/95. Repeat blood work reveals WBC 19.1, HGB 8.9, PLT 152. Sodium 134, K 3.7, Chloride 94, CO2 31. BUN 17, Creat 0.26. Ferritin 68.9. AST 49, ALT 17, AP149. LDH 2274. CK 61, CRP 29.4. CXR reveals stable diffuse infiltrates and small right apical pheumothorax. 11/15: Patient remains in the intensive care unit. Her breathing status appears to be stable. Pulse ox is running anywhere between 86 and 100% on 15 L high flow nasal cannula. She is complaining of right-sided pain in her chest secondary to the chest tube. Patient does have Dilaudid which she is receiving every 3 hours and we will add in [place]. The left-sided chest tube was removed yesterday. She has been afebrile, heart rate in the 90s, blood pressure 116/74. Chest x-ray reveals similar findings to prior. WBC 14.0, hemoglobin 8.8, platelet count 171. D-dimer 3.61. Sodium 134, potassium 4.3, chloride 96, CO2 33, BUN 25 and creatinine 0.34. Blood sugars are controlled. Alkaline phosphatase 128. LDH 1634. CK 49. C-reactive protein 21.8. No plan to palpation of the intensive care unit today. We'll plan for Seymour catheter to be removed. 11/16: Patient remains in intensive care unit. She is now on high flow nasal cannula at 10 L. She is having some sinus tachycardia especially with eating breakfast this morning. She is on Dilaudid IV every 3 hours and Ogden was added yesterday and will encourage to use Ogden today and try and wean off Dilaudid. She continues to have pain at the chest tube site. Chest x-ray this morning reveals no significant interval change. Right-sided pneumothorax is likely decreased. CTA of the chest reveals no evidence of pulmonary embolism. Right- sided pneumothorax. Right chest tube in good position in the major fissure. 11/17:Patient remains in the intensive care unit. She is tachycardic up to 137 this morning and pulmonary medicine started her on metoprolol. She's been afebrile, respiratory rate in the 20s, blood pressure 117/83, pulse ox is 88-97% on 8 L nasal cannula high flow. Repeat blood work reveals to be BBC 13, hemoglobin 8.6, platelet count 181. D-dimer 2.23. Sodium 135. Potassium 4.2, chloride 97, CO2 31, BUN 27 creatinine 0.34. Blood sugars running between 93 and 141. Liver function tests are normal. LDH 1096. CK 24, CK 5.1. Repeat chest x-ray reveals similar findings, correlate for pneumonia. Right-sided chest tube remains in place which may be discontinued later today. Patient is complaining of significant pain to the right chest tube site and using Dilaudid around the clock. She states and Ogden does not help. BuSpar changed to scheduled twice daily. Patient has been evaluated by Dr. Faith and not appropriate for inpatient rehab. 11/18: A she seen today on the [facility] floor. Patient was complaining of migraine headaches and Fioricet was resumed. Patient is complaining of feeling so weak that she cannot move. She remains with chest tube in place. Breathing status seems to be stable. She is pulse ox seen in the 90s at 5 L high flow nasal cannula. Patient has been afebrile. Heart rate 99, blood pressure 126/80, pulse ox 97% on high flow 5 L. Repeat chest x-ray reveals stable findings. WBC 14.2, hemoglobin 9.9, sodium 136, potassium 4.6, creatinine 0.37. Patient is on cefepime as well as Lovenox, IV Solu-Medrol and supplements. 11/19: Patient is complaining of continued pain for which Ogden changed to Percocet. She has been receiving Dilaudid around the clock. She remains with chest tube in place. Pulse ox is been 91-98% on 4 L nasal cannula. She has been afebrile, heart rate 96 but episodes of tachycardia with movement, blood pressure 99/64. Blood sugars are running between 88 and 149. Discussed discharge planning which will be to [facility] or [facility] most likely on Sunday. 11/20: Patient had more leak yesterday with pneumothorax require chest tube without adjustment of her chest tube felt much comfortable finally continue current management and limited physical therapy at this point is still the plan probably for subacute rehab. 11/21: Patient is feeling much better today her right-sided pneumothorax and pleural effusion are improved still have chest tube in C loss or drainage. Pneumonitis has improved significantly, patient still losing weight, as well as under control, still having the plan to go to subacute rehab either on Sunday or Sunday. 11/22:patient has been afebrile, heart rate 84, blood pressure 99/61, pulse ox 95% on room air. Blood sugars are running between 103 and 161. Sputum culture, pleural fluid culture, blood culture are positive for MSSA. Repeat blood culture is no grwoth at 144 hours. Patient is not currently on any antibiotics. She is on Solu-Medrol 60 mg IV every 6 hours. She was reassessed by Dr. Faith and appears to be not a candidate for inpatient rehab. Repeat chest x-ray reveals patchy bilateral infiltrates with interval increase in size of right apical pneumothorax measuring 15%. CTS is planning to continue right pleural chest tube. The Dilaudid will be discontinued. Solu-Medrol decreased to 40 mg IV every 8 hours. REVIEW OF SYSTEMS Constitutional: No fever, no chills, no night sweats. No weight change. Reports weakness, Reports fatigue. No daytime sleepiness. EENT: Reports headache. No blurred vision or double vision, no loss of vision. No loss of Hearing, no ringing in the ears, no dizziness. No nasal drainage or congestion. No epistaxis. No sore throat. Lungs: Reports shortness of breath, Reports cough, no sputum production. No wheezing. Cardiovascular: No chest pain, no lower extremity edema. No palpitations. No paroxysmal nocturnal dyspnea. No orthopnea. No lightheadedness or dizziness. No syncopal episodes. Abdominal: No abdominal pain. No nausea, vomiting. No diarrhea. No constipation. No bloody or tarry stools. No loss of appetite. Genitourinary: No dysuria, increased frequency, urgency. No urinary retention. Musculoskeletal: No myalgias. No muscle weakness, no gait dysfunction, no frequent falls. No back pain. No neck pain. Integumentary: No wounds, no lesions. Neurologic: No aphasia. No facial droop. No change in mentation. No head injury. No headache. No paralysis. No paresthesia. Psychiatric: No depression. No anxiety. Endocrine: No abnormal blood sugars. PHYSICAL EXAMINATION Gen: This is a 39-year-old female. Patient is resting in bed and appears to be comfortable at rest on room air. HEENT: Head is atraumatic, normocephalic. Pupils equal, round. Sclerae is anicteric. NECK: Supple. No JVD. No lymphadenopathy. No thyromegaly. Oral mucous membranes are dry. LUNGS: Scattered rhonchi, crackles in the bases. No intercostal retractions. HEART: Regular rate and rhythm. No murmur. ABDOMEN: Soft. Bowel sounds are present. No masses. No tenderness. EXTREMITIES: No pedal edema. No calf tenderness. Dorsalis pedis palpable bilaterally. NEUROLOGICAL: Patient is awake, alert and oriented x3. Cranial nerves 2 through 12 are grossly intact. ASSESSMENT AND PLAN 1. Acute hypoxic respiratory failure secondary to acute Covid 19 pneumonia, MSSA pneumonia, has been on supportive care seen pulmonary still on O2 still on updraft treatment and worsening complication of pneumothorax require attention at this point. 2. Right sided pneumothorax requiring chest tube 11/06 and 11/08. Discontinue IV Dilaudid, continue Percocet for pain control. Maintain right-sided chest tube. 3. Acute exacerbation of mild intermittent bronchial asthma. Continue Ventolin inhaler 4 times daily as needed. 4. Recurrent depression and generalized anxiety disorder: She is on multiple medication between BuSpar, Abilify, Wellbutrin and Cymbalta 5. Primary immunodeficiency. Which made her prognosis much worse with a Covid 19. 6. Chronic anemia of chronic disease most likely due to history of bleeding ulcers and alcohol abuse. 7. Tobacco use and dependence including taping. 8. Daily alcohol use/abuse. Patient apparently has had no alcohol intake for 7 days. Monitor closely for DTs 9. Debility: Continue physical therapy. 10. Acute anemia secondary to sepsis without blood loss. S/p transfusion of 1 unit of packed RBCs. 11. Migraine headaches. Continue Fioricet as needed. Hold Inderal 60 mg daily. 12. Sepsis with MSSA bacteremia, POA. Continue Kafzol. 13. Moderate protein calorie malnutrition. Patient maintain on tube feedings 14. Gastroesophageal reflux disease with history of bleeding ulcers. Continue Protonix 40 mg daily and Carafate 1 g 4 times daily. 15. DVT prophylaxis. Lovenox. DISCHARGE PLAN Subacute rehab possible to [facility] on Sunday. Impression and plan of care have been directed as dictated by the signing physician. Isabel Samayoa nurse practitioner acting as scribe for signing physician. Objective - Vital Signs Vital signs: Vital Signs Temp 97.6 F 11/22/20 05:50 Pulse 84 11/22/20 05:50 Resp 16 11/22/20 05:50 BP 99/61 11/22/20 05:50 Pulse Ox 95 11/22/20 05:50 Intake & Output 11/21/20 11/22/20 11/22/20 18:59 06:59 18:59 Intake Total 680 Output Total 600 Balance 80 Intake: Oral 680 Output: Chest Tube Drainage 50 Chest Tube Right 50 Urine 550 Other: Voiding Method Bedpan # Voids 4 # Bowel Movements 1 ABP, PAP, CO, CI - Last Documented Arterial Blood Pressure 119/75 - Labs CBC & Chem 7: 11/22/20 06:29 11/22/20 06:29 Labs: Abnormal Lab Results - Last 24 Hours (Table) 11/21/20 11/21/20 11/21/20 Range/Units 11:54 16:37 20:34 POC Glucose (mg/dL) 112 H 103 H 161 H (75-99) mg/dL 11/22/20 Range/Units 06:54 POC Glucose (mg/dL) 126 H (75-99) mg/dL
[2020-11-22] MEDS ORDERED: methylPREDNISolone SOD SUCCI 40 MG/ML 1 ML VIAL IV SCH (16:00)
[2020-11-22 16:58] LABS: Glucose,Whole Blood 112 mg/dL (75-99)
--- NOTE | 2020-11-22 19:13 | P.PN ---
Subjective Progress Note Date: 11/22/20 Principal diagnosis: COVID 19 pneumonia This is a very pleasant 39-year-old female patient with a known history of GI bleeding with 2 nonbleeding antral ulcers per EGD, migraines, anxiety/depression, severe back pain, fibromyalgia, primary immunodeficiency disorder, irritable bowel syndrome, tobacco dependence, mild intermittent chronic bronchial asthma maintained on Advair. Presently 2 weeks ago she developed increasing shortness of breath cough congestion chills fever. She subsequently tested positive for CoVID 19 on 10/30/2020. Her shortness of breath continued to worsen she presented here to the emergency room last evening. Chest x-ray shows bilateral patchy infiltrates consistent with CoVID pneumonia as does CTA of the chest. No evidence of pulmonary embolism. She is seen today in consultation in the emergency room. She is currently sitting up at the bedside. She is quite hoarse, quite dyspneic on minimal exertion and conversation. Requiring 15 L high flow nasal cannula with nonrebreather mask to maintain O2 saturations in the 90s. White count 9.4. Hemoglobin 8.6. Platelets 284. Lymphocytes 0.6. D-dimer 1.06. Sodium 135. Potassium 4.0. Creatinine 0.88. Glucose 159. LDH 2067, C-reactive protein 320. The patient is seen today 11/05/2020 in follow-up in the intensive care unit. She is currently sitting up in bed. Awake and alert. Remains in mild respiratory distress. She is currently on AirVo at 60 L/m and 90% FiO2 along with a nonrebreather mask to maintain O2 saturations in the high 80s low 90s. Chest x-ray continues to show bilateral patchy infiltrates. Blood culture reveals no growth. White count 11.8. Hemoglobin 7.7. Lymphocytes 0.3. D- dimer 1.95. Sodium 135. Potassium 3.8. Creatinine 0.45. LDH 2243. C-react maciel protein 254. She did receive to tocilizumab. Remains on vitamin supplements, IV Solu-Medrol, Lovenox. The patient is seen today 11/06/2020 in follow-up in the intensive care unit. She is currently resting fairly comfortably in bed. She is on BiPAP at 12/5 and 100% FiO2 to maintain O2 saturations in the low 90s. Chest x-ray continues to revealed patchy bilateral lung infiltrates more so on the bases. She has 0.9 normal saline at 75 ML's per hour. Her preliminary blood cultures are positive for Staphylococcus aureus. White count 8.0. Hemoglobin 7.2. Lymphocytes 0.1. D-dimer 4.74. Sodium 137. Potassium 3.5. Creatinine 0.50. LDH 1845. C- reactive protein 69.8. She's been initiated on vancomycin and cefazolin. Continued on Lovenox, IV Solu Medrol, vitamin supplements. She did receive to tocilizumab. On 11/14/2020, the patient is extubated. We'll managed to extubate the patient yesterday and she is currently on 100% nonrebreather facemask. She is awake and alert and she is following commands and answering questions. She is off the Precedex. She is still on fentanyl which is running at 2 mcg/kg per minute. This is managed to control her pain. Note that the patient had bilateral pneumothoraces and she has bilateral chest tubes in place. The right-sided ch est tube is showing intermittent air leak and there is a tiny right apical pneumothorax. The left-sided chest tube has no air leak and output is minimal in the left lung is well expanded without any evidence of pneumothorax. Nevertheless, I suspect that the patient may have potentially superinfection. She has grown MSSA in his sputum and in the pleural fluid and in her blood. She is on IV cefazolin. Nevertheless, her LDH is on the rise and the chest x-ray showing some new bilateral pulmonary infiltration and the possibility of a superinfection with gram-negative is possible. As such, I need to broaden her antibiotic coverage. Meanwhile, she is resting comfortably in bed on 100% nonrebreather facemask pH is communicating. She remains on IV Solu-Medrol. Inflammatory markers from today show a rise in the LDH which is currently up to 2274 and the CRP is up to 21. He d-dimer currently is at 5.67. The white cell count is up to 19.1. Hemoglobin is at 8.9. She is still nothing by mouth for now. No signs of any alcohol withdrawal well. No agitation. No focal neurological deficit. She seems to be much more comfortable at this point in time. The patient is seen today 11/15/2020 in follow-up in the intensive care unit. She is currently sitting up in bed. Awake and alert in no acute distress. She remains on 15 L high flow nasal cannula to maintain O2 saturations in the 90s. Chest x-ray continues to show bilateral infiltrates. There is a small right apical pneumothorax. Right-sided chest tube remains in place. Left-sided chest tube was removed yesterday. She did have MSSA in the sputum, pleural fluid and blood cultures. Follow-up blood cultures are revealing no growth. She remains on cefepime. 9NS @ KVO. She remains on IV Solu-Medrol, Lovenox 30 mg subcu taneous twice a day, vitamin supplements. The patient is seen today 11/16/2020 in follow-up in the intensive care unit. She is awake and alert in no acute distress. Sitting up in bed. She is down to 10 L high flow nasal cannula and maintaining O2 saturations in the low 90s. CAT scan of the chest ruled out pulmonary embolism. There is still a 20% right- sided pneumothorax. Right-sided chest tube remains in good position. No significant air leak. Only about 20 ML's output per shift. Positive for MSSA as were her blood cultures and sputum cultures. She remains on cefepime. She did receive tocilizumab. She is continued on IV Solu-Medrol, Lovenox, vitamin supplements. The patient is seen today 11/17/2020 in follow-up in intensive care unit. She is currently sitting up in bed. Awake and alert in no acute distress. Currently maintaining O2 saturation in the 90s on 8 L high flow nasal cannula. She did receive tocilizumab. Right-sided chest tube remains in place to suction. No air leak noted. Chest x-ray reveals minimal right apical pneumothorax. Still some bilateral airspace disease. Stable compared to previous. She remains on Lovenox, IV Solu-Medrol, bronchodilators, vitamin supplements. She is status post 1 unit of packed red blood cells this admission. Current hemoglobin 8.6. White count 13.0. Lymphocytes 0.3. D- dimer 2.23. Sodium 135. Potassium 4.2. Creatinine 0.34. LDH 1096. C- reactive protein 5.1. The patient is seen today 11/18/2020 in follow-up on the regular medical floor. She is currently sitting up in bed. Awake and alert in no acute distress. Feeling stronger today compared to yesterday. No worsening shortness of breath, cough or congestion. Maintaining good O2 saturations in the upper 90s on 5 L high flow nasal cannula. She's been afebrile. Hemodynamically stable. Right- sided chest tube remains in place. Small air leak still detected. Small right apical pneumothorax still present on chest x-ray. Follow-up blood cultures revealing no growth. White count 14.2. Hemoglobin 9.9. Lymphocytes 0.2. Sodium 136. Potassium 4.6. Creatinine 0.37. She remains on Lovenox, IV Solu- Medrol, vitamin supplements. Antibiotics in the form of cefepime. The patient is seen today 11/19/2020 in follow-up on the regular medical floor. She is currently sitting up in a chair at the bedside. Awake and alert in no acute distress. Right-sided chest tube remains in place to waterseal with significant leak today compared to yesterday. Follow-up chest x-ray was obtained and there is now a 50% pneumothorax on the right. Placed chest tube back on wall suction. Encourage increased use of incentive spirometer. 18 in good O2 saturations in the 90s on 3 L high flow nasal cannula. Follow-up blood cultures revealed no growth. She remains on cefepime and continued on Lovenox, IV sign Medrol, vitamin supplements. The patient is seen today 11/20/2020 in follow-up on the regular medical floor. She is sitting up in a chair at the bedside. Awake and alert in no acute distress. Maintaining O2 saturations in the 90s on 4 L/m per nasal cannula. He is afebrile. Hemodynamically stable. She remains on cefepime, IV Solu-Medrol, Lovenox, vitamin supplements. Right-sided chest tube remains in place to wall suction. Leak is still present. Persistent right-sided pneumothorax. Chest tube was manipulated this morning by CT services for better positioning. She continues to work well the incentive spirometer. The patient is seen today 11/21/2020 in follow-up on the regular medical floor. Currently sitting up in bed. Awake and alert in no acute distress. Maintaining O2 saturations in the 90s on 2 L/m per nasal cannula. Chest x-ray revealing improved right pneumothorax with trace residual. Persistent moderate opacities. Chest tube remains in place. Leak is still present. On 11/22/2020 patient seen in follow-up on medical surgical floor she is sitting up in the chair, breathing comfortable, she remains on room air, and sometimes she applies her oxygen back on at 2 L, her pulse ox on room air is 96%, on 2 L her pulse ox 100%, she is awake and alert, oriented 3, itching questions appropriate, no altered mentation, she's had no fever or chills patient still has chest tube in place, in the right chest, today's chest x-ray shows slight interval increase in the size of right apical pneumothorax measuring at 15%, CT surgery is following, right-sided chest tube remains to wall suction. No worsening dyspnea, no worsening chest discomfort. She is working on incentive spirometer. Remains on IV Solu-Medrol 40 mg every 8 hours, which at this point we can switch to oral prednisone, she remains on vitamins, and Lovenox 30 mg by mouth twice daily. Today's labs have been reviewed, cytosis is improving, with a total, 13.5, hemoglobin is 9.1, electrolytes within normal limits, B1 is 25 creatinine 0.4, her last d-dimer on 11/17/2020 was 2.23 Objective - Vital Signs Vital signs: Vital Signs Temp 97.9 F 11/22/20 17:47 Pulse 105 H 11/22/20 17:47 Resp 16 11/22/20 17:47 BP 103/65 11/22/20 17:47 Pulse Ox 100 11/22/20 17:47 Intake & Output 11/22/20 11/22/20 11/23/20 06:59 18:59 06:59 Output Total 0 Balance 0 Output: Chest Tube Drainage 0 Chest Tube Right 0 Other: # Voids 4 8 ABP, PAP, CO, CI - Last Documented Arterial Blood Pressure 119/75 - Exam GENERAL EXAM: Alert, very pleasant 42-year-old white female, 2 L of oxygen and the pulse ox of 100% comfortable in no apparent distress. HEAD: Normocephalic/atraumatic. EYES: Normal reaction of pupils, equal size. Conjunctiva pink, sclera white. NOSE: Clear with pink turbinates. THROAT: No erythema or exudates. NECK: No masses, no JVD, no thyroid enlargement, no adenopathy. CHEST: No chest wall deformity. Symmetrical expansion. Right-sided chest tube in place, to Pleur-evac and wall suction LUNGS: Equal air entry with no crackles, wheeze, rhonchi or dullness. CVS: Regular rate and rhythm, normal S1 and S2, no gallops, no murmurs, no rubs ABDOMEN: Soft, nontender. No hepatosplenomegaly, normal bowel sounds, no guarding or rigidity. EXTREMITIES: No clubbing, no edema, no cyanosis, 2+ pulses and upper and lower extremities. MUSCULOSKELETAL: Muscle strength and tone normal. SPINE: No scoliosis or deformity SKIN: No rashes CENTRAL NERVOUS SYSTEM: Alert and oriented -3. No focal deficits, tone is normal in all 4 extremities. PSYCHIATRIC: Alert and oriented -3. Appropriate affect. Intact judgment and insight. - Labs CBC & Chem 7: 11/22/20 06:29 11/22/20 06:29 Labs: Abnormal Lab Results - Last 24 Hours (Table) 11/21/20 11/22/20 11/22/20 Range/Units 20:34 06:29 06:29 WBC 13.58 H (4.50-10.00) X 10*3/uL RBC 3.34 L (4.10-5.20) X 10*6/uL Hgb 9.1 L (12.0-15.0) g/dL Hct 30.4 L (37.2-46.3) % MCHC 29.9 L (32.0-37.0) g/dL RDW 17.2 H (11.5-14.5) % Creatinine 0.4 L (0.6-1.5) mg/dL BUN/Creatinine Ratio 62.50 H (12.00-20.00) Ratio Glucose 115 H (70-110) mg/dL POC Glucose (mg/dL) 161 H (75-99) mg/dL Total Protein 6.1 L (6.2-8.2) g/dL 11/22/20 11/22/20 11/22/20 Range/Units 06:54 11:18 16:45 WBC (4.50-10.00) X 10*3/uL RBC (4.10-5.20) X 10*6/uL Hgb (12.0-15.0) g/dL Hct (37.2-46.3) % MCHC (32.0-37.0) g/dL RDW (11.5-14.5) % Creatinine (0.6-1.5) mg/dL BUN/Creatinine Ratio (12.00-20.00) Ratio Glucose (70-110) mg/dL POC Glucose (mg/dL) 126 H 111 H 112 H (75-99) mg/dL Total Protein (6.2-8.2) g/dL Assessment and Plan Plan: Assessment: #1. Acute hypoxic respiratory failure and 62 acute quit 19 pneumonia, status post Tocilizumab, patient required intubation and mechanical ventilatory support #2. Acute bilateral pneumothoraces, status post chest tube placement, left chest tube has been removed, patient still has right-sided chest tube in place to wall suction, and there is a residual 15% right apical pneumothorax #3. MSSA bacteremia, sputum, pleural fluid and currently on cefepime, follow blood cultures reveal no growth #4. Anemia, acute, with no evidence of acute bleeding, status post 1 unit of packed red blood cell transfusion #5. History of chronic tobacco dependence, MVP #6. History of anxiety/depression #7. History of immunodeficiency disorder #8. Irritable bowel syndrome #9. History of migraine headaches #10. Fibromyalgia #11. History of chronic back pain Plan: Continue current medical treatment, today's chest x-ray has been reviewed. Residual 50% right apical pneumothorax, right chest tube remains in place, follow-up chest x-ray in the morning, encourage deep breathing and coughing, switch to IV Solu-Medrol to oral prednisone 20 mg daily, we will decrease the Lovenox to 40 mg daily, follow-up d-dimer in the morning, continue weaning FiO2. We'll follow I performed a history & physical examination of the patient and discussed their management with my nurse practitioner, Sandra Reis. I reviewed the nurse practitioner's note and agree with the documented findings and plan of care. Lung sounds are positive for diminished breath sounds The findings and the impression was discussed with the patient. I attest to the documentation by the nurse practitioner. Time with Patient: Less than 30
[2020-11-22 20:49] LABS: Glucose,Whole Blood 103 mg/dL (75-99)
[2020-11-22] MEDS: MELATONIN 3 MG TABLET PO SCH (22:13)
[2020-11-23] MEDS: oxyCODONE-APAP 5-325MG 1 EACH TAB PO PRN ×4 (02:18→21:19)
[2020-11-23] MEDS: HYDROcodone/APAP 5-325MG 1 EACH TAB PO PRN ×4 (06:03→23:43)
[2020-11-23 07:03] LABS: Glucose,Whole Blood 94 mg/dL (75-99)
[2020-11-23] MEDS: INSULIN ASPART (NovoLOG) 100 UNIT/ML VIAL SQ SCH ×4 (08:15→21:12)
[2020-11-23] MEDS: ENOXAPARIN 40 MG/0.4 ML SYRINGE SQ SCH (08:29)
[2020-11-23] MEDS: PANTOPRAZOLE 40 MG/10 ML VIAL IVP SCH ×2 (08:29→21:19)
[2020-11-23] MEDS: CHOLECALCIFEROL 25 MCG (1000 IU) TABLET PO SCH (08:29)
[2020-11-23] MEDS: ASCORBIC ACID 500 MG TAB PO SCH (08:30)
[2020-11-23] MEDS: METOPROLOL TARTRATE 25 MG TAB PO SCH (08:30)
[2020-11-23] MEDS: ARIPiprazole 5 MG TAB PO SCH (08:30)
[2020-11-23] MEDS: SUCRALFATE 1 GM TAB PO SCH ×4 (08:30→21:22)
[2020-11-23] MEDS: DULoxetine HCL 60 MG CAPSULE.DR PO SCH (08:30)
[2020-11-23] MEDS: busPIRone HCl 10 MG TAB PO SCH ×2 (08:30→21:22)
[2020-11-23] MEDS: buPROPion XL 150 MG TAB.ER.24H PO SCH (08:30)
[2020-11-23] MEDS: TOPIRAMATE 25 MG TAB PO SCH (08:30)
--- NOTE | 2020-11-23 08:30 | XR ---
EXAMINATION TYPE: XR chest 1V portable DATE OF EXAM: 11/23/2020 COMPARISON: 11/23/2019 HISTORY: Right pneumothorax TECHNIQUE: Single frontal view of the chest is obtained. FINDINGS: Patchy bilateral areas of infiltrate are stable. Heart size normal. Patient is rotated. Ce ntral line stable. Chest tube noted. Small right apical pneumothorax measuring approximately 5-10% sl ightly reduced from the prior exam. IMPRESSION: 1. Slight interval improvement of the right apical pneumothorax now measuring approximately 5-10%. 2. Diffuse bilateral patchy infiltrate stable.
[2020-11-23] MEDS: TRIAMCINOLONE 0.1% CREAM 80 GM TUBE TOPICAL SCH ×2 (08:42→21:24)
[2020-11-23] MEDS: ZINC SULFATE 220 MG CAP PO SCH (08:43)
[2020-11-23] MEDS ORDERED: predniSONE 20 MG TAB PO SCH (09:00)
[2020-11-23] MEDS: ALBUTEROL HFA INHALER INHALATION PRN ×2 (09:52→17:02)
[2020-11-23] MEDS ORDERED: METOPROLOL TARTRATE 25 MG TAB PO STA (10:11)
[2020-11-23] MEDS ORDERED: FLUTICASONE 50MCG/SPRAY NASAL 16GM EA NOSTRIL PRN (10:11)
[2020-11-23 11:23] LABS: Glucose,Whole Blood 71 mg/dL (75-99)
[2020-11-23] MEDS: NYSTATIN 100,000 UNIT/ML SUSP 500,000 UNIT/5 ML CUP PO SCH ×3 (11:25→21:22)
[2020-11-23] MEDS: PROPRANOLOL LA 60 MG CAP.SA.24H PO SCH (11:25)
[2020-11-23] MEDS: SODIUM CHLORIDE 0.9% 1,000 ML IV SCH (11:31)
--- NOTE | 2020-11-23 11:55 | P.PN ---
Subjective Progress Note Date: 11/23/20 HISTORY OF PRESENT ILLNESS This is a 39-year-old female patient of Dr. Gonzalez with past medical history of GI bleed in 2008, July 2020 was admitted for GI bleed secondary to 2 no nbleeding antral ulcers requiring transfusion 2 units packed RBCs, tobacco use, alcohol abuse, recurrent depression, generalized anxiety disorder. Patient was diagnosed with COVID-19 on October 30. She complains of increasing shortness of breath, cough, congestion, fever and chills and hoarseness. She continued to worsen significantly over the past 2 days. She also complains of bloody sputum production. Patient came into [facility] emergency center for evaluation. Temperature 98.3, heart rate 102, respiratory rate 40, blood pressure 95/64, pulse ox 71%. EKG was a sinus rhythm no acute ST elevation. W BC 9.4, hemoglobin 8.6, platelet count 284. Sodium 135, potassium 2.8, chloride 102, CO2 21, BUN 19 creatinine 0.88. Blood sugar 92. AST 71, ALT 24, alkaline phosphatase 264 [place] phosphatase 264, LDH 2067, CA reactive protein 320.8. Lactic acid 3.1. CT angiogram of the chest reveals no evidence pulmonary embolism. Severe pulmonary interstitial and airspace edema. Chest x-ray reveals pulmonary interstitial pneumonia worse than recent exam. Some airspace component. Patient is status post 2 L of IV fluids, potassium replacement, Dilaudid, patient seen by pulmonary medicine and started on Tocilizumab. 11/05: Patient remains in the intensive care unit. She is a nonrebreather mask and AorVp and can maintain a pulse ox in the 90s. If she removes these, patient follows less than 70s. She is very anxious today and has many questions. She does have large number of psychiatric medications which have been resumed. We will also add and Xanax twice daily as needed. She has been afebrile, heart rate 89, blood pressure 116/79, pulse ox 95%. Repeat blood work reveals WBC 11.8, hemoglobin 7.7, platelet count 243. D-dimer 1.95. Sodium 135, electrolyt es otherwise normal, BUN 18 creatinine 0.45. Blood sugars running between 117- 129. AST 48, ALT 18, alkaline phosphatase 218, LDH 2243. C-reactive protein 254. Patient had 2 blood cultures, one is showing no growth at 24 hours and the second obtained at 2240 showing gram-positive cocci. She was started on vancomycin. 11/06: Patient remains in ICU, still on a BiPAP treatments,, continuously, terri barber did not have any meals for the past 72 hours secondary to hypoxemia and air hunger without the reading device. Patient has not slept well at all, cytokinin markers are elevated, blood culture growing Staphylococcus from specimen collected November 03 are pending sensitivity. Patient currently is on IV cefazolin, IV vancomycin, followed by infectious disease. So Medrol 60 mg every 6 hours, most of her oral medications cannot be complied upon secondary to hypoxemia event removed briefly. Hemoglobin at 7.2, blood gas shows pCO2 54, PaO2 of 67, 7.39 pH. Double basic count of under 10, creatinine of 0.5, LDH 1845, alkaline phosphatase 194. Albumin low at 2.6, blood pressure stable,Heart rate of 114, blood pressure of 135/90. Pulse ox 85-86 at BiPAP treatments. 11/07 yesterday afternoon, patient required placement of right chest tube secondary to spontaneous pneumothorax placed by the ER doctor,, patient has worsening respiratory status, and was intubated by the ER physician currently with tidal volume of 40, PEEP of 10, assist control rate of 24, FiO2 of 80%. There is residual small pneumothorax right side, there is a left subclavian triple-lumen placed by Dr. Harrington today. There is consult for nutrition, has an OG tube, for which feedings would be started once completed. Chest x-ray shows bilateral diffuse infiltrates, creatinine of 0.4, LDH of 1630, CRP of 36 platelet count 132, hemoglobin 7.3 11/08: Patient remains in the intensive care unit, intubated and on mechanical ventilation with FiO2 100%, tidal volume 400 and PEEP of 10. Patient is currently on sedation. Repeat chest x-ray today reveals increase in size of right-sided pneumothorax since previous measuring of 3.5 cm today compared to 1.2 cm yesterday. Severe interstitial infiltrates throughout the lungs bilaterally slightly increased from previous. A second right-sided chest tube was placed today by Dr. Davison. Repeat blood work reveals WBC 5.2, hemoglobin 6.2, platelet count 133. Sodium 141, potassium 3.5, chloride 107, CO2 35, BUN 24 and creatinine 0.46. Blood sugar 132. Alkaline phosphatase 154. D-dimer 6.35. Patient is ordered for transfusion 1 unit packed RBCs today. Blood culture is MSSA and patient is on Ancef 2 g every 8 hours. Pleural fluid culture in progress. Patient has been afebrile, heart rate low 100s, respiratory rate 27, blood pressure 135/93, pulse ox 96%. Patient will be started on tube feedings today. 11/09: She remains intubated and on mechanical ventilation. She is on both Nimbex and Propofol. She remains intubated and on mechanical ventilation with tidal volume 400, FiO2 65 and PEEP of 10. Repeat chest x-ray reveals improving right apical pneumothorax measuring less than 5%. Stable bilateral diffuse infiltrates. WBC 8, hemoglobin 7.8 status post 1 unit of packed RBCs. Platelet count 123. Sodium 141, potassium 3.9, chloride 105, CO2 37. BUN 28 creatinine 0.51. Blood sugar 142. Inflammatory markers are improving with d-dimer 7.09, fibrinogen 159, LDH 1249, C-reactive protein 8.3, CK 23. Patient is on Kefzol for antibiotics. She remains with right-sided chest tube. She has been a febrile, heart rate 80, blood pressure 116/78, pulse ox 92%. Patient is not requiring vasopressors. 11/10: Initial chest x-ray this morning revealed interval development of 50% left-sided pneumothorax. Patient is status post chest tube placement on the left by Dr. Davison. Repeat chest x-ray revealed bilateral apical pneumothoraces measuring less than 5. Stable on the right improved on the left. Diffuse bilateral pulmonary parenchymal disease stable. Patient remains intubated and on mechanical ventilation. She is now off Nimbex. Tidal volume 500, FiO2 60% and PEEP of 8. Patient is on tube feedings. Repeat blood work reveals WBC 7.5, hemoglobin 7.7, platelet count 126. Sodium 139, potassium 3.3 and was replaced, chloride 98, CO2 38, BUN 28 creatinine 0.41. Cultures are running between 134-150. D-dimer 0.05, LDH 1338, CK 65, C-reactive protein less than 5. Sputum culture is in progress. Blood cultures no growth at 24 hours. All previous blood cultures are showing no growth. IgG is low at 471. Request a nurse contact Dr. Davison about IVIG infusion. 11/11: She remains in the intensive care unit, intubated and on mechanical ventilation with tidal volume 400, FiO2 50% and PEEP of 6. Patient now has bilateral chest tubes in place for bilateral pneumothoraces with right-sided air leak. Weaning will be attempted today. She has been afebrile, heart rate 95, blood pressure 148/81, pulse ox 96%. Repeat blood work reveals W BC 5.8, hemoglobin 10.3, platelet count 101. D-dimer 6.03. C-reactive protein less than 5, CK 44. LDH 1234. Sodium 133, potassium 3.8, chloride 94, CO2 38, BUN 22 and creatinine 0.32. Blood culture, sputum culture, pleural fluid culture also positive for MSSA. Patient is covered with Kefzol. 11/12: Patient remains in intensive care unit, intubated and on mechanical ventilation with tidal volume 400, FiO2 50% and PEEP of 6. She failed weaning trial yesterday and she was desatting and back on propofol as well as Precedex and fentanyl drips were added. Patient has been afebrile, heart rate 86, blood pressure 134/68, pulse ox 90%, respiratory rate 24. Repeat blood work reveals WBC 17.3, hemoglobin 9, platelets 164. Sodium 134, potassium 3.6, chloride 97, CO2 30, BUN 19 and creatinine 0.33. Blood sugars running between 127 and 141. Alkaline phosphatase 149. LDH 1437. C-reactive protein 6.4. Repeat chest x-ray reveals slight interval increase in the right-sided pneumothorax compared to prior exam. Correlate for pneumonia, edema or ARDS. She remains with bilateral chest tubes in place. Prognosis remains guarded. 11/13: Patient remains in the intensive care unit. She has been successfully extubated this morning and is on 15 L high flow nasal cannula. She has been afebrile, heart rate in the 80s, blood pressure 109/75. Repeat blood work reveals W BC 10.7, hemoglobin 7.3, platelet count 116. D-dimer 5.54. Sodium 134, potassium 4.0, chloride 97, CO2 33, BUN 20, creatinine 0.29. Blood sugars running between 119 and 143. LDH 1057, CK 22, C-reactive protein less than 5. Chest x-ray reveals small right apical pneumothorax slightly smaller. Right chest tube. No change in patchy airspace opacities in the lung right greater than left. Left-sided chest tube unchanged in position and resolution of left small apical pneumothorax. The patient's mental status is not back to baseline. She is somewhat confused. 11/14: Patient remains in the intensive care unit. PO 80s on NRB. Patient encouraged to keep mask on face. She has been afebrile, HR 80s - 90s, RR 28, BP 129/95. Repeat blood work reveals WBC 19.1, HGB 8.9, PLT 152. Sodium 134, K 3.7, Chloride 94, CO2 31. BUN 17, Creat 0.26. Ferritin 68.9. AST 49, ALT 17, AP149. LDH 2274. CK 61, CRP 29.4. CXR reveals stable diffuse infiltrates and small right apical pheumothorax. 11/15: Patient remains in the intensive care unit. Her breathing status appears to be stable. Pulse ox is running anywhere between 86 and 100% on 15 L high flow nasal cannula. She is complaining of right-sided pain in her chest secondary to the chest tube. Patient does have Dilaudid which she is receiving every 3 hours and we will add in [place]. The left-sided chest tube was removed yesterday. She has been afebrile, heart rate in the 90s, blood pressure 116/74. Chest x-ray reveals similar findings to prior. WBC 14.0, hemoglobin 8.8, platelet count 171. D-dimer 3.61. Sodium 134, potassium 4.3, chloride 96, CO2 33, BUN 25 and creatinine 0.34. Blood sugars are controlled. Alkaline phosphatase 128. LDH 1634. CK 49. C-reactive protein 21.8. No plan to palpation of the intensive care unit today. We'll plan for Se[place]our catheter to be removed. 11/16: Patient remains in intensive care unit. She is now on high flow nasal cannula at 10 L. She is having some sinus tachycardia especially with eating breakfast this morning. She is on Dilaudid IV every 3 hours and [place] was added yesterday and will encourage to use [place] today and try and wean off Dilaudid. She continues to have pain at the chest tube site. Chest x-ray this morning reveals no significant interval change. Right-sided pneumothorax is likely decreased. CTA of the chest reveals no evidence of pulmonary embolism. Right- sided pneumothorax. Right chest tube in good position in the major fissure. 11/17:Patient remains in the intensive care unit. She is tachycardic up to 137 this morning and pulmonary medicine started her on metoprolol. She's been afebrile, respiratory rate in the 20s, blood pressure 117/83, pulse ox is 88-97% on 8 L nasal cannula high flow. Repeat blood work reveals to be BBC 13, hemoglobin 8.6, platelet count 181. D-dimer 2.23. Sodium 135. Potassium 4.2, chloride 97, CO2 31, BUN 27 creatinine 0.34. Blood sugars running between 93 and 141. Liver function tests are normal. LDH 1096. CK 24, CK 5.1. Repeat chest x-ray reveals similar findings, correlate for pneumonia. Right-sided chest tube remains in place which may be discontinued later today. Patient is complaining of significant pain to the right chest tube site and using Dilaudid around the clock. She states and [place] does not help. BuSpar changed to scheduled twice daily. Patient has been evaluated by Dr. Faith and not appropriate for inpatient rehab. 11/18: A she seen today on the [facility] floor. Patient was complaining of migraine headaches and Fioricet was resumed. Patient is complaining of feeling so weak that she cannot move. She remains with chest tube in place. Breathing status seems to be stable. She is pulse ox seen in the 90s at 5 L high flow nasal cannula. Patient has been afebrile. Heart rate 99, blood pressure 126/80, pulse ox 97% on high flow 5 L. Repeat chest x-ray reveals stable findings. WBC 14.2, hemoglobin 9.9, sodium 136, potassium 4.6, creatinine 0.37. Patient is on cefepime as well as Lovenox, IV Solu-Medrol and supplements. 11/19: Patient is complaining of continued pain for which [place] changed to Percocet. She has been receiving Dilaudid around the clock. She remains with chest tube in place. Pulse ox is been 91-98% on 4 L nasal cannula. She has been afebrile, heart rate 96 but episodes of tachycardia with movement, blood pressure 99/64. Blood sugars are running between 88 and 149. Discussed discharge planning which will be to [facility] or [facility] most likely on Sunday. 11/20: Patient had more leak yesterday with pneumothorax require chest tube without adjustment of her chest tube felt much comfortable finally continue current management and limited physical therapy at this point is still the plan probably for subacute rehab. 11/21: Patient is feeling much better today her right-sided pneumothorax and pleural effusion are improved still have chest tube in C loss or drainage. Pneumonitis has improved significantly, patient still losing weight, as well as under control, still having the plan to go to subacute rehab either on Sunday or Sunday. 11/22:patient has been afebrile, heart rate 84, blood pressure 99/61, pulse ox 95% on room air. Blood sugars are running between 103 and 161. Sputum culture, pleural fluid culture, blood culture are positive for MSSA. Repeat blood culture is no grwoth at 144 hours. Patient is not currently on any antibiotics. She is on Solu-Medrol 60 mg IV every 6 hours. She was reassessed by Dr. Faith and appears to be not a candidate for inpatient rehab. Repeat chest x-ray reveals patchy bilateral infiltrates with interval increase in size of right apical pneumothorax measuring 15%. CTS is planning to continue right pleural chest tube. The Dilaudid will be discontinued. Solu-Medrol decreased to 40 mg IV every 8 hours. 11/23: Patient remains afebrile, heart rate 101, blood pressure 109/68, pulse ox 90-96% on room air. Repeat chest x-ray reveals slight improvement of right apical pneumothorax measuring 5-10%. Diffuse bilateral patchy infiltrates stable. Yesterday, IV Solu-Medrol as transitioned to oral prednisone and Lovenox decreased to 40 mg daily. Repeat inflammatory markers reveal d-dimer of 2.27. Blood sugars are running between 7112. Patient will be started on nystatin for thrush. Heart rate has been in the 140s and we will discontinue metoprolol place patient back on her Inderal. She is also asking for Cepacol lozenges, Zyrtec and Flonase. Patient encouraged to be up in a chair. Await further input from cardiothoracic surgery. Discharge plan is for [facility]. Social work is following closely. REVIEW OF SYSTEMS Constitutional: No fever, no chills, no night sweats. No weight change. Reports weakness, Reports fatigue. No daytime sleepiness. EENT: Reports headache. No blurred vision or double vision, no loss of vision. No loss of Hearing, no ringing in the ears, no dizziness. No nasal drainage or congestion. No epistaxis. No sore throat. Lungs: Reports shortness of breath, Reports cough, no sputum production. No wheezing. Cardiovascular: No chest pain, no lower extremity edema. No palpitations. No paroxysmal nocturnal dyspnea. No orthopnea. No lightheadedness or dizziness. No syncopal episodes. Abdominal: No abdominal pain. No nausea, vomiting. No diarrhea. No constipation. No bloody or tarry stools. No loss of appetite. Genitourinary: No dysuria, increased frequency, urgency. No urinary retention. Musculoskeletal: No myalgias. No muscle weakness, no gait dysfunction, no frequent falls. No back pain. No neck pain. Integumentary: No wounds, no lesions. Neurologic: No aphasia. No facial droop. No change in mentation. No head injury. No headache. No paralysis. No paresthesia. Psychiatric: No depression. No anxiety. Endocrine: No abnormal blood sugars. PHYSICAL EXAMINATION Gen: This is a 39-year-old female. Patient is resting in bed and appears to be comfortable at rest on room air. HEENT: Head is atraumatic, normocephalic. Pupils equal, round. Sclerae is anicteric. NECK: Supple. No JVD. No lymphadenopathy. No thyromegaly. Oral mucous membranes are dry. LUNGS: Scattered rhonchi, crackles in the bases. No intercostal retractions. HEART: Regular rate and rhythm. No murmur. ABDOMEN: Soft. Bowel sounds are present. No masses. No tenderness. EXTREMITIES: No pedal edema. No calf tenderness. Dorsalis pedis palpable b ilaterally. NEUROLOGICAL: Patient is awake, alert and oriented x3. Cranial nerves 2 through 12 are grossly intact. ASSESSMENT AND PLAN 1. Acute hypoxic respiratory failure secondary to acute Covid 19 pneumonia, MSSA pneumonia, has been on supportive care seen pulmonary still on O2 still on updraft treatment and worsening complication of pneumothorax require attention at this point. Solu-Medrol transitioned to oral prednisone. 2. Right sided pneumothorax requiring chest tube 11/06 and 11/08. Discontinue IV Dilaudid, continue Percocet for pain control. Maintain right-sided chest tube. 3. Acute exacerbation of mild intermittent bronchial asthma. Continue Ventolin inhaler 4 times daily as needed. 4. Recurrent depression and generalized anxiety disorder: She is on multiple medication between BuSpar, Abilify, Wellbutrin and Cymbalta 5. Primary immunodeficiency. Which made her prognosis much worse with a Covid 19. 6. Chronic anemia of chronic disease most likely due to history of bleeding ulcers and alcohol abuse. 7. Tobacco use and dependence including taping. 8. Daily alcohol use/abuse. Patient apparently has had no alcohol intake for 7 days. Monitor closely for DTs 9. Debility: Continue physical therapy. 10. Acute anemia secondary to sepsis without blood loss. S/p transfusion of 1 unit of packed RBCs. 11. Migraine headaches. Continue Fioricet as needed. Hold Inderal 60 mg daily. 12. Sepsis with MSSA bacteremia, POA. Continue Kafzol. 13. Moderate protein calorie malnutrition. Patient maintain on tube feedings 14. Gastroesophageal reflux disease with history of bleeding ulcers. Continue Protonix 40 mg daily and Carafate 1 g 4 times daily. 15. Tachycardia. Patient resumed on Inderal discontinue Lopressor. 16. Thrush. Patient started on nystatin. 17. DVT prophylaxis. Lovenox. DISCHARGE PLAN Subacute rehab possible to [facility] on Sunday. Impression and plan of care have been directed as dictated by the signing physician. Isabel Samayoa nurse practitioner acting as scribe for signing physician. Objective - Vital Signs Vital signs: Vital Signs Temp 97.9 F 11/23/20 06:00 Pulse 101 H 11/23/20 06:00 Resp 17 11/23/20 06:00 BP 109/68 11/23/20 06:00 Pulse Ox 90 L 11/23/20 06:00 Intake & Output 11/22/20 11/23/20 11/23/20 18:59 06:59 18:59 Output Total 0 0 Balance 0 0 Weight 56.6 kg Output: Chest Tube Drainage 0 0 Chest Tube Right 0 0 Other: Voiding Method Bedpan # Voids 8 1 # Bowel Movements 1 ABP, PAP, CO, CI - Last Documented Arterial Blood Pressure 119/75 - Labs CBC & Chem 7: 11/22/20 06:29 11/22/20 06:29 Labs: Abnormal Lab Results - Last 24 Hours (Table) 11/22/20 11/22/20 11/22/20 Range/Units 06:29 06:29 11:18 WBC 13.58 H (4.50-10.00) X 10*3/uL RBC 3.34 L (4.10-5.20) X 10*6/uL Hgb 9.1 L (12.0-15.0) g/dL Hct 30.4 L (37.2-46.3) % MCHC 29.9 L (32.0-37.0) g/dL RDW 17.2 H (11.5-14.5) % Creatinine 0.4 L (0.6-1.5) mg/dL BUN/Creatinine Ratio 62.50 H (12.00-20.00) Ratio Glucose 115 H (70-110) mg/dL POC Glucose (mg/dL) 111 H (75-99) mg/dL Total Protein 6.1 L (6.2-8.2) g/dL 11/22/20 11/22/20 Range/Units 16:45 20:47 WBC (4.50-10.00) X 10*3/uL RBC (4.10-5.20) X 10*6/uL Hgb (12.0-15.0) g/dL Hct (37.2-46.3) % MCHC (32.0-37.0) g/dL RDW (11.5-14.5) % Creatinine (0.6-1.5) mg/dL BUN/Creatinine Ratio (12.00-20.00) Ratio Glucose (70-110) mg/dL POC Glucose (mg/dL) 112 H 103 H (75-99) mg/dL Total Protein (6.2-8.2) g/dL
[2020-11-23 13:32] LABS: C Reactive Protein 0.5 mg/dL (0.0-0.8)
--- NOTE | 2020-11-23 14:08 | P.PN ---
Subjective Progress Note Date: 11/23/20 Principal diagnosis: Persistent right pneumothorax. Past medical history significant for GI bleed secondary to history of 2 nonbleeding antral ulcers requiring transfusion of 2 units packed red blood cells, asthma, irritable bowel syndrome, anxiety, depression, bipolar, post traumatic stress disorder, fibromyalgia, chronic ongoing tobacco, draping use and EtOH abuse. The patient is seen in follow-up today on 11/23/2020 at her bedside on the fourth floor medical surgical unit. Currently she is sitting up to the bedside chair, is awake, alert and oriented 3 and is in no acute apparent distress. She is complaining of some pain to her chest tube insertion site and denies any complaints of shortness of breath except with activity. Oxygen saturation are 98% on 2 L nasal cannula and she is achieving around 1500 mL on her incentive spirometry with encouragement. Right pleural chest tube remains in place to low continuous wall suction -20 cm H2O. Intermittent air leak is present. Draining scant thin serosanguineous drainage. Chest x-ray report shows slight interval improvement of the right apical pneumothorax measuring approximately 5-10% with diffuse bilateral patchy infiltrates which are stable. Objective - Vital Signs Vital signs: Vital Signs Temp 98.3 F 11/23/20 10:00 Pulse 85 11/23/20 10:00 Resp 18 11/23/20 10:00 BP 97/66 11/23/20 10:00 Pulse Ox 98 11/23/20 10:00 Intake & Output 11/22/20 11/23/20 11/23/20 18:59 06:59 18:59 Output Total 0 0 Balance 0 0 Weight 56.6 kg Output: Chest Tube Drainage 0 0 Chest Tube Right 0 0 Other: Voiding Method Bedpan # Voids 8 1 # Bowel Movements 1 ABP, PAP, CO, CI - Last Documented Arterial Blood Pressure 119/75 - Constitutional General appearance: Present: average body habitus, cooperative, no acute distress - EENT Eyes: Present: normal appearance. Absent: scleral icterus ENT: Present: hearing grossly normal, thrush - Neck Details: Neck is supple, no JVD, no lymphadenopathy. - Respiratory Details: Lung sounds with few scattered rhonchi throughout, right greater than left. No crackles or wheezes. Respirations are symmetrical and nonlabored. Oxygen saturation is 98% on 2 L nasal cannula. Achieving 1300 mL on her incentive spirometry. Right pleural chest tube to low continuous wall suction -20 cm H2O. Intermittent air leak is present. Draining scant thin serosanguineous d rainage. - Cardiovascular Details: regular rhythm and rate. S1 and S2 present, negative for S3, gallop or murmur. Remote telemetry showing sinus tachycardia heart rate 100 BPM. No edema present. - Gastrointestinal Gastrointestinal Comment(s): Abdomen is soft, nontender and nondistended. Active bowel sounds present in all 4 abdominal quadrants. No guarding or rigidity. No organomegaly appreciated. - Genitourinary Genitourinary Comment(s): Continues to void. - Integumentary Integumentary Comment(s): Skin is warm and dry. No clubbing or cyanosis is present. Right pleural chest tube dressing is clean, dry and intact. - Neurologic Neurologic: Present: CNII-XII intact. Absent: focal deficits - Musculoskeletal Musculoskeletal: Present: gait normal, strength equal bilaterally - Psychiatric Psychiatric: Present: A&O x's 3, appropriate affect, intact judgment & insight - Allied health notes Allied health notes reviewed: nursing - Labs CBC & Chem 7: 11/22/20 06:29 11/22/20 06:29 Labs: Abnormal Lab Results - Last 24 Hours (Table) 11/22/20 11/22/20 11/23/20 Range/Units 16:45 20:47 07:06 D-Dimer 2.27 H (<0.60) mg/L FEU POC Glucose (mg/dL) 112 H 103 H (75-99) mg/dL 11/23/20 Range/Units 11:14 D-Dimer (<0.60) mg/L FEU POC Glucose (mg/dL) 71 L (75-99) mg/dL - Imaging and Cardiology Chest x-ray: report reviewed, image reviewed Assessment and Plan Assessment: 1. Persistent right pneumothorax despite right pleural chest tube being in place 2. Acute hypoxic respiratory failure secondary to acute COVID 19 pneumonia 3. MSSA bacteremia, sputum, pleural fluid, currently on Maxipime for antibiotic coverage 4. History of anemia with nonbleeding antral ulcers, status post transfusion of 1 unit of packed red blood cells on admission 5. Chronic ongoing tobacco dependence and vaping use 6. Irritable bowel syndrome 7. History of fibromyalgia 8. History of asthma 9. History of bipolar disorder 10. History of ADHD 11. History of depression 12. History of EtOH abuse, drinks 1 pint of tequila daily Plan: 1. We will place her right pleural chest tube to waterseal and removed from low continuous wall suction. Continue to monitor for air leak and right pneumothorax resolution. 2. No surgical intervention is warranted at this time. 3. Encourage use of her incentive spirometry 10 times every hour while awake. 4. Wean oxygen as tolerated. 5. Pulmonary management recommendations per Dr. Cruz. 6. Continue to monitor her daily chest x-rays. 7. More recommendations to follow based on patient's clinical course. Time with Patient: Less than 30
--- NOTE | 2020-11-23 14:15 | P.PN ---
Subjective Progress Note Date: 11/23/20 Principal diagnosis: Acute hypoxic respiratory failure secondary to covid 19 pneumonia, and bilateral pneumothoraces secondary to barotrauma. The patient is seen today 11/20/2020 in follow-up on the regular medical floor. She is sitting up in a chair at the bedside. Awake and alert in no acute distress. Maintaining O2 saturations in the 90s on 4 L/m per nasal cannula. He is afebrile. Hemodynamically stable. She remains on cefepime, IV Solu-Medrol, Lovenox, vitamin supplements. Right-sided chest tube remains in place to wall suction. Leak is still present. Persistent right-sided pneumothorax. Chest tube was manipulated this morning by CT services for better positioning. She continues to work well the incentive spirometer. The patient is seen today 11/21/2020 in follow-up on the regular medical floor. Currently sitting up in bed. Awake and alert in no acute distress. Maintaining O2 saturations in the 90s on 2 L/m per nasal cannula. Chest x-ray revealing improved right pneumothorax with trace residual. Persistent moderate opacities. Chest tube remains in place. Leak is still present. On 11/22/2020 patient seen in follow-up on medical surgical floor she is sitting up in the chair, breathing comfortable, she remains on room air, and sometimes she applies her oxygen back on at 2 L, her pulse ox on room air is 96%, on 2 L her pulse ox 100%, she is awake and alert, oriented 3, itching questions appropriate, no altered mentation, she's had no fever or chills patient still has chest tube in place, in the right chest, today's chest x-ray shows slight interval increase in the size of right apical pneumothorax measuring at 15%, CT surgery is following, right-sided chest tube remains to wall suction. No worsening dyspnea, no worsening chest discomfort. She is working on incentive spirometer. Remains on IV Solu-Medrol 40 mg every 8 hours, which at this point we can switch to oral prednisone, she remains on vitamins, and Lovenox 30 mg by mouth twice daily. Today's labs have been reviewed, cytosis is improving, with a total, 13.5, hemoglobin is 9.1, electrolytes within normal limits, B1 is 25 creatinine 0.4, her last d-dimer on 11/17/2020 was 2.23 Patient was reevaluated today on 11/23/2020, remains on the regular medical floor, comfortable, in no distress, however she continues to have a right-sided chest tube in place, and she continues to have air leak. Continues to have right apical pneumothorax. Patient is on 2 L nasal cannula, and her O2 sats is 98%. Continues to have a left-sided subclavian triple-lumen catheter which I have ordered to be discontinued. Thoracic surgery is still forming on her persistent right-sided pneumothorax, she may eventually require surgical intervention. Based on the chest x-ray, the chest tube seems to be in the proper position, nonetheless she continues to have some air leak and apical pneumothorax. Objective - Vital Signs Vital signs: Vital Signs Temp 98.3 F 11/23/20 10:00 Pulse 85 11/23/20 10:00 Resp 18 11/23/20 10:00 BP 97/66 11/23/20 10:00 Pulse Ox 98 11/23/20 10:00 Intake & Output 11/22/20 11/23/20 11/23/20 18:59 06:59 18:59 Output Total 0 0 Balance 0 0 Weight 56.6 kg Output: Chest Tube Drainage 0 0 Chest Tube Right 0 0 Other: Voiding Method Bedpan # Voids 8 1 # Bowel Movements 1 ABP, PAP, CO, CI - Last Documented Arterial Blood Pressure 119/75 - Exam Physical Exam revealed a 39-year-old female in no distress. On 2 L nasal cannula. Head: Atraumatic normocephalic. HEENT:[Neck is supple.] [No neck masses.] [No thyromegaly.] [No JVD.] Left subclavian triple-lumen catheter is noted. Chest: [Right-sided chest tube is noted. Crackles at the bases noted. No rhonchi and no wheezes.] Cardiac Exam: [Normal S1 and S2, no S3 gallop, no murmur.] Abdomen: [Soft, nontender, no megaly, no rebound, no guarding, normal bowel sounds.] Extremities: [No clubbing, no edema, no cyanosis.] Neurological Exam: [No focal neurologic deficit.] Alert oriented 3. Psychiatric: Normal mood affect and normal mental status examination. HEENT: No rashes Musculoskeletal: No deformities noted limitation range of motion - Labs CBC & Chem 7: 11/22/20 06:29 11/22/20 06:29 Labs: Abnormal Lab Results - Last 24 Hours (Table) 11/22/20 11/22/20 11/23/20 Range/Units 16:45 20:47 07:06 D-Dimer 2.27 H (<0.60) mg/L FEU POC Glucose (mg/dL) 112 H 103 H (75-99) mg/dL Lactate Dehydrogenase (120-246) U/L 11/23/20 11/23/20 Range/Units 07:06 11:14 D-Dimer (<0.60) mg/L FEU POC Glucose (mg/dL) 71 L (75-99) mg/dL Lactate Dehydrogenase 298 H (120-246) U/L Assessment and Plan Assessment: Impression: Acute hypoxic respiratory failure secondary to covid 19 pneumonia, requiring intubation and mechanical ventilation. Patient did receive toci Acute bilateral pneumothoraces requiring bilateral chest tube placement felt to be related to barotrauma, expected. Persistent right-sided pneumothorax with chest tube in place, and continues to have air leak. MSSA bacteremia and complicated parapneumonic effusion with MSSA infection, no empyema. Tobacco dependence syndrome. Generalized anxiety disorder History of immune deficiency disorder Irritable bowel syndrome Migraine cephalgia Fibromyalgia Recommendation: Titrate oxygen and maintained O2 saturation above 90 Continue chest tube to suction Remove left sided triple lumen catheter in the left subclavian area, and establish a peripheral IV access. Continue present medications Cut down the dose of prednisone Thoracic surgery to continue to follow on the right-sided pneumothorax. We'll continue to follow. Time with Patient: Less than 30
[2020-11-23 14:29] VITALS: BMI 22.1
[2020-11-23 17:13] LABS: Glucose,Whole Blood 87 mg/dL (75-99)
[2020-11-23 20:46] LABS: Glucose,Whole Blood 116 mg/dL (75-99)
[2020-11-23] MEDS ORDERED: METOPROLOL TARTRATE 50 MG TAB PO SCH (21:00)
[2020-11-23] MEDS: LORATADINE 10 MG TAB PO PRN (21:19)
[2020-11-23] MEDS: BENZOCAINE/MENTHOL LOZENG 1 EACH LOZENGE MUCOUS MEM PRN (21:20)
[2020-11-23] MEDS: MELATONIN 3 MG TABLET PO SCH (21:23)
[2020-11-24] MEDS: BENZOCAINE/MENTHOL LOZENG 1 EACH LOZENGE MUCOUS MEM PRN ×3 (03:34→20:41)
[2020-11-24] MEDS: oxyCODONE-APAP 5-325MG 1 EACH TAB PO PRN ×4 (03:37→21:56)
[2020-11-24] MEDS: HYDROcodone/APAP 5-325MG 1 EACH TAB PO PRN ×2 (05:31→11:38)
[2020-11-24 07:22] LABS: Glucose,Whole Blood 92 mg/dL (75-99)
[2020-11-24] MEDS: INSULIN ASPART (NovoLOG) 100 UNIT/ML VIAL SQ SCH ×2 (07:30→12:17)
--- NOTE | 2020-11-24 08:03 | XR ---
EXAMINATION TYPE: PA and lateral views chest x-ray. DATE OF EXAM: 11/24/2020 COMPARISON: 11/23/2020 TECHNIQUE: PA and lateral views submitted. HISTORY: Right pneumothorax FINDINGS: Bilateral patchy infiltrates are noted. Interval increase in size of the right-sided pneumothorax now measuring approximately 15%. Right-sided chest tubes are noted in position. Probable blood bulla not ed in the right upper lobe. Pneumatocele not excluded. Heart size stable. Central line no longer seen . IMPRESSION: 1. Interval increase in size of the pneumothorax now measuring approximately 15%. 2. Diffuse bilateral patchy infiltrate stable
[2020-11-24] MEDS: SUCRALFATE 1 GM TAB PO SCH ×4 (08:57→21:57)
[2020-11-24] MEDS: busPIRone HCl 10 MG TAB PO SCH ×2 (08:57→21:57)
[2020-11-24] MEDS: ASCORBIC ACID 500 MG TAB PO SCH (08:57)
[2020-11-24] MEDS: CHOLECALCIFEROL 25 MCG (1000 IU) TABLET PO SCH (08:57)
[2020-11-24] MEDS: PROPRANOLOL LA 60 MG CAP.SA.24H PO SCH (08:58)
[2020-11-24] MEDS: DULoxetine HCL 60 MG CAPSULE.DR PO SCH (08:58)
[2020-11-24] MEDS: predniSONE 10 MG TAB PO SCH (08:58)
[2020-11-24] MEDS: buPROPion XL 150 MG TAB.ER.24H PO SCH (08:58)
[2020-11-24] MEDS: ZINC SULFATE 220 MG CAP PO SCH (08:58)
[2020-11-24] MEDS: PANTOPRAZOLE 40 MG/10 ML VIAL IVP SCH ×2 (08:59→21:57)
[2020-11-24] MEDS: ARIPiprazole 5 MG TAB PO SCH (08:59)
[2020-11-24] MEDS: ENOXAPARIN 40 MG/0.4 ML SYRINGE SQ SCH (08:59)
[2020-11-24] MEDS: NYSTATIN 100,000 UNIT/ML SUSP 500,000 UNIT/5 ML CUP PO SCH ×4 (08:59→21:56)
[2020-11-24] MEDS: TOPIRAMATE 25 MG TAB PO SCH (09:00)
[2020-11-24] MEDS: TRIAMCINOLONE 0.1% CREAM 80 GM TUBE TOPICAL SCH ×2 (09:00→21:57)
--- NOTE | 2020-11-24 11:30 | P.PN ---
Subjective Progress Note Date: 11/24/20 Principal diagnosis: Acute hypoxic respiratory failure secondary to covid 19 pneumonia, and bilateral pneumothoraces secondary to barotrauma. The patient is seen today 11/20/2020 in follow-up on the regular medical floor. She is sitting up in a chair at the bedside. Awake and alert in no acute distress. Maintaining O2 saturations in the 90s on 4 L/m per nasal cannula. He is afebrile. Hemodynamically stable. She remains on cefepime, IV Solu-Medrol, Lovenox, vitamin supplements. Right-sided chest tube remains in place to wall suction. Leak is still present. Persistent right-sided pneumothorax. Chest tube was manipulated this morning by CT services for better positioning. She continues to work well the incentive spirometer. The patient is seen today 11/21/2020 in follow-up on the regular medical floor. Currently sitting up in bed. Awake and alert in no acute distress. Maintaining O2 saturations in the 90s on 2 L/m per nasal cannula. Chest x-ray revealing improved right pneumothorax with trace residual. Persistent moderate opacities. Chest tube remains in place. Leak is still present. On 11/22/2020 patient seen in follow-up on medical surgical floor she is sitting up in the chair, breathing comfortable, she remains on room air, and sometimes she applies her oxygen back on at 2 L, her pulse ox on room air is 96%, on 2 L her pulse ox 100%, she is awake and alert, oriented 3, itching questions appropriate, no altered mentation, she's had no fever or chills patient still has chest tube in place, in the right chest, today's chest x-ray shows slight interval increase in the size of right apical pneumothorax measuring at 15%, CT surgery is following, right-sided chest tube remains to wall suction. No worsening dyspnea, no worsening chest discomfort. She is working on incentive spirometer. Remains on IV Solu-Medrol 40 mg every 8 hours, which at this point we can switch to oral prednisone, she remains on vitamins, and Lovenox 30 mg by mouth twice daily. Today's labs have been reviewed, cytosis is improving, with a total, 13.5, hemoglobin is 9.1, electrolytes within normal limits, B1 is 25 creatinine 0.4, her last d-dimer on 11/17/2020 was 2.23 Patient was reevaluated today on 11/23/2020, remains on the regular medical floor, comfortable, in no distress, however she continues to have a right-sided chest tube in place, and she continues to have air leak. Continues to have right apical pneumothorax. Patient is on 2 L nasal cannula, and her O2 sats is 98%. Continues to have a left-sided subclavian triple-lumen catheter which I have ordered to be discontinued. Thoracic surgery is still forming on her persistent right-sided pneumothorax, she may eventually require surgical intervention. Based on the chest x-ray, the chest tube seems to be in the proper position, nonetheless she continues to have some air leak and apical pneumothorax. Reevaluated today on 11/24/2020, patient is on 2 L nasal cannula, in no distress, continues to have significant air leak in her right sided chest tube. She was told by surgery that in the next 3 more days, if she continues to have an air leak, surgical intervention would be considered. In the meantime the patient is hemodynamically stable, she is in no distress. Chest x-ray today continues to show at least a 30% right-sided pneumothorax in spite of the chest tube in place. Objective - Vital Signs Vital signs: Vital Signs Temp 97.3 F L 11/24/20 03:01 Pulse 92 11/24/20 03:01 Resp 18 11/24/20 03:01 BP 96/55 11/24/20 03:01 Pulse Ox 96 11/24/20 03:01 Intake & Output 11/23/20 11/24/20 11/24/20 18:59 06:59 18:59 Intake Total 780 Output Total 0 Balance 780 Weight 56.6 kg Intake: IV 240 Sodium Chloride 0.9% 1, 240 000 ml @ 20 mls/hr IV . Q24H [facility] Rx#:[id number] Oral 540 Output: Chest Tube Drainage 0 Chest Tube Right 0 Other: Voiding Method Bedpan Bedpan # Voids 9 4 1 # Bowel Movements 3 ABP, PAP, CO, CI - Last Documented Arterial Blood Pressure 119/75 - Exam Physical Exam revealed a 39-year-old female in no distress. On 2 L nasal cannula. Head: Atraumatic normocephalic. HEENT:[Neck is supple.] [No neck masses.] [No thyromegaly.] [No JVD.] Left subclavian triple-lumen catheter is noted. Chest: [Right-sided chest tube is noted. Crackles at the bases noted. No rhonchi and no wheezes.] Cardiac Exam: [Normal S1 and S2, no S3 gallop, no murmur.] Abdomen: [Soft, nontender, no megaly, no rebound, no guarding, normal bowel sounds.] Extremities: [No clubbing, no edema, no cyanosis.] Neurological Exam: [No focal neurologic deficit.] Alert oriented 3. Psychiatric: Normal mood affect and normal mental status examination. HEENT: No rashes Musculoskeletal: No deformities noted limitation range of motion - Labs CBC & Chem 7: 11/22/20 06:29 11/22/20 06:29 Labs: Abnormal Lab Results - Last 24 Hours (Table) 11/23/20 11/23/20 Range/Units 07:06 20:45 POC Glucose (mg/dL) 116 H (75-99) mg/dL Lactate Dehydrogenase 298 H (120-246) U/L Assessment and Plan Assessment: Impression: Acute hypoxic respiratory failure secondary to covid 19 pneumonia, requiring intubation and mechanical ventilation. Patient did receive toci Acute bilateral pneumothoraces requiring bilateral chest tube placement felt to be related to barotrauma, expected. Persistent right-sided pneumothorax with chest tube in place, and continues to have air leak. MSSA bacteremia and complicated parapneumonic effusion with MSSA infection, no empyema. Tobacco dependence syndrome. Generalized anxiety disorder History of immune deficiency disorder Irritable bowel syndrome Migraine cephalgia Fibromyalgia Recommendation: Continue chest tube to suction I have a feeling the patient will eventually require surgical intervention for her right-sided pneumothorax. Continue present medications Lower the dose of the prednisone even further. Thoracic surgery to continue to follow on the right-sided pneumothorax. We'll continue to follow. Time with Patient: Less than 30
[2020-11-24] MEDS: SODIUM CHLORIDE 0.9% 1,000 ML IV SCH (11:50)
[2020-11-24] MEDS: ALBUTEROL HFA INHALER INHALATION PRN ×2 (11:55→16:25)
[2020-11-24 12:11] LABS: Glucose,Whole Blood 89 mg/dL (75-99)
--- NOTE | 2020-11-24 12:17 | P.PN ---
Subjective Progress Note Date: 11/24/20 Principal diagnosis: Persistent right pneumothorax. Past medical history significant for GI bleed secondary to history of 2 nonbleeding antral ulcers requiring transfusion of 2 units packed red blood cells, asthma, irritable bowel syndrome, anxiety, depression, bipolar, post traumatic stress disorder, fibromyalgia, chronic ongoing tobacco, draping use and EtOH abuse. The patient is seen in follow-up today on 11/24/2020 at her bedside on the fourth floor medical surgical unit. Currently she is sitting up to the bedside chair, is awake, alert and oriented 3 and is in no acute apparent distress. She is complaining of some pain to her chest tube insertion site and denies any complaints of shortness of breath. Oxygen saturation are 98% on room air and she is achieving 0574-2654 mL on her incentive spirometry with encouragement. Right pleural chest tube remains in place and with waterseal, low continuous wall suction was removed yesterday. Intermittent air leak is present. Draining scant thin serosanguineous drainage. Chest x-ray report this morning shows an interval increase in size of the pneumothorax this morning now measuring approximately 15%. The patient reports that she has been up ambulating in the room with minimal assistance from nursing staff. She remains afebrile the last 24 hours. Objective - Vital Signs Vital signs: Vital Signs Temp 97.3 F L 11/24/20 03:01 Pulse 92 11/24/20 03:01 Resp 18 11/24/20 03:01 BP 96/55 11/24/20 03:01 Pulse Ox 96 11/24/20 03:01 Intake & Output 11/23/20 11/24/20 11/24/20 18:59 06:59 18:59 Intake Total 780 Output Total 0 Balance 780 Weight 56.6 kg Intake: IV 240 Sodium Chloride 0.9% 1, 240 000 ml @ 20 mls/hr IV . Q24H [facility] Rx#:[id number] Oral 540 Output: Chest Tube Drainage 0 Chest Tube Right 0 Other: Voiding Method Bedpan Bedpan # Voids 9 4 # Bowel Movements 3 ABP, PAP, CO, CI - Last Documented Arterial Blood Pressure 119/75 - Constitutional General appearance: Present: average body habitus, cooperative, no acute distress - EENT Eyes: Present: normal appearance. Absent: scleral icterus ENT: Present: hearing grossly normal - Neck Details: Neck is supple, no JVD, no lymphadenopathy. - Respiratory Details: Lung sounds essentially clear to her left lobes, few scattered rhonchi to her right lobes. Respirations are symmetrical and nonlabored. Oxygen saturation are 98% on room air. She is achieving 2620-1326 mL on her incentive spirometry. Right pleural chest tube is in place and on waterseal. Intermittent air leak is present. Draining scant thin serosanguineous drainage. - Cardiovascular Details: Regular rhythm and rate. S1 and S2 present, negative for S3, gallop or murmur. Remote telemetry showing normal sinus rhythm heart rate 92 BPM. No edema present. - Gastrointestinal Gastrointestinal Comment(s): Abdomen is soft, nontender and nondistended. Active bowel sounds present all 4, quadrant. No guarding or rigidity. Tolerating oral intake. - Genitourinary Genitourinary Comment(s): Continues to void. - Integumentary Integumentary Comment(s): Skin is warm and dry. No clubbing or cyanosis is present. Dressing is clean and dry to her right chest tube insertion site. Scant serosanguineous drainage. - Neurologic Neurologic: Present: CNII-XII intact. Absent: focal deficits - Musculoskeletal Musculoskeletal: Present: gait normal, generalized weakness, strength equal bilaterally - Psychiatric Psychiatric: Present: A&O x's 3, appropriate affect, intact judgment & insight - Allied health notes Allied health notes reviewed: nursing - Labs CBC & Chem 7: 11/22/20 06:29 11/22/20 06:29 Labs: Abnormal Lab Results - Last 24 Hours (Table) 11/23/20 11/23/20 11/23/20 Range/Units 07:06 11:14 20:45 POC Glucose (mg/dL) 71 L 116 H (75-99) mg/dL Lactate Dehydrogenase 298 H (120-246) U/L - Imaging and Cardiology Chest x-ray: report reviewed, image reviewed Assessment and Plan Assessment: 1. Persistent right pneumothorax despite right pleural chest tube being in place 2. Acute hypoxic respiratory failure secondary to acute COVID 19 pneumonia 3. MSSA bacteremia, sputum, pleural fluid, currently on Maxipime for antibiotic coverage 4. History of anemia with nonbleeding antral ulcers, status post transfusion of 1 unit of packed red blood cells on admission 5. Chronic ongoing tobacco dependence and vaping use 6. Irritable bowel syndrome 7. History of fibromyalgia 8. History of asthma 9. History of bipolar disorder 10. History of ADHD 11. History of depression 12. History of EtOH abuse, drinks 1 pint of tequila daily Plan: 1. Continue right pleural chest tube to waterseal. Continue to monitor for air leak and right pneumothorax resolution. 2. No surgical intervention is warranted at this time. 3. Encourage use of her incentive spirometry 10 times every hour while awake. 4. Wean oxygen as tolerated. 5. Pulmonary management recommendations per pulmonary critical care medicine. 6. Continue to monitor her daily chest x-rays. 7. More recommendations to follow based on patient's clinical course. Time with Patient: Greater than 30
--- NOTE | 2020-11-24 13:28 | P.PN ---
Subjective Progress Note Date: 11/24/20 HISTORY OF PRESENT ILLNESS This is a 39-year-old female patient of Dr. Gonzalez with past medical history of GI bleed in 2008, July 2020 was admitted for GI bleed secondary to 2 no nbleeding antral ulcers requiring transfusion 2 units packed RBCs, tobacco use, alcohol abuse, recurrent depression, generalized anxiety disorder. Patient was diagnosed with COVID-19 on October 30. She complains of increasing shortness of breath, cough, congestion, fever and chills and hoarseness. She continued to worsen significantly over the past 2 days. She also complains of bloody sputum production. Patient came into [facility] emergency center for evaluation. Temperature 98.3, heart rate 102, respiratory rate 40, blood pressure 95/64, pulse ox 71%. EKG was a sinus rhythm no acute ST elevation. W BC 9.4, hemoglobin 8.6, platelet count 284. Sodium 135, potassium 2.8, chloride 102, CO2 21, BUN 19 creatinine 0.88. Blood sugar 92. AST 71, ALT 24, alkaline phosphatase 264 [place] phosphatase 264, LDH 2067, CA reactive protein 320.8. Lactic acid 3.1. CT angiogram of the chest reveals no evidence pulmonary embolism. Severe pulmonary interstitial and airspace edema. Chest x-ray reveals pulmonary interstitial pneumonia worse than recent exam. Some airspace component. Patient is status post 2 L of IV fluids, potassium replacement, Dilaudid, patient seen by pulmonary medicine and started on Tocilizumab. 11/05: Patient remains in the intensive care unit. She is a nonrebreather mask and AorVp and can maintain a pulse ox in the 90s. If she removes these, patient follows less than 70s. She is very anxious today and has many questions. She does have large number of psychiatric medications which have been resumed. We will also add and Xanax twice daily as needed. She has been afebrile, heart rate 89, blood pressure 116/79, pulse ox 95%. Repeat blood work reveals WBC 11.8, hemoglobin 7.7, platelet count 243. D-dimer 1.95. Sodium 135, electrolyt es otherwise normal, BUN 18 creatinine 0.45. Blood sugars running between 117- 129. AST 48, ALT 18, alkaline phosphatase 218, LDH 2243. C-reactive protein 254. Patient had 2 blood cultures, one is showing no growth at 24 hours and the second obtained at 2240 showing gram-positive cocci. She was started on vancomycin. 11/06: Patient remains in ICU, still on a BiPAP treatments,, continuously, terri barber did not have any meals for the past 72 hours secondary to hypoxemia and air hunger without the reading device. Patient has not slept well at all, cytokinin markers are elevated, blood culture growing Staphylococcus from specimen collected November 03 are pending sensitivity. Patient currently is on IV cefazolin, IV vancomycin, followed by infectious disease. So Medrol 60 mg every 6 hours, most of her oral medications cannot be complied upon secondary to hypoxemia event removed briefly. Hemoglobin at 7.2, blood gas shows pCO2 54, PaO2 of 67, 7.39 pH. Double basic count of under 10, creatinine of 0.5, LDH 1845, alkaline phosphatase 194. Albumin low at 2.6, blood pressure stable,Heart rate of 114, blood pressure of 135/90. Pulse ox 85-86 at BiPAP treatments. 11/07 yesterday afternoon, patient required placement of right chest tube secondary to spontaneous pneumothorax placed by the ER doctor,, patient has worsening respiratory status, and was intubated by the ER physician currently with tidal volume of 40, PEEP of 10, assist control rate of 24, FiO2 of 80%. There is residual small pneumothorax right side, there is a left subclavian triple-lumen placed by Dr. Harrington today. There is consult for nutrition, has an OG tube, for which feedings would be started once completed. Chest x-ray shows bilateral diffuse infiltrates, creatinine of 0.4, LDH of 1630, CRP of 36 platelet count 132, hemoglobin 7.3 11/08: Patient remains in the intensive care unit, intubated and on mechanical ventilation with FiO2 100%, tidal volume 400 and PEEP of 10. Patient is currently on sedation. Repeat chest x-ray today reveals increase in size of right-sided pneumothorax since previous measuring of 3.5 cm today compared to 1.2 cm yesterday. Severe interstitial infiltrates throughout the lungs bilaterally slightly increased from previous. A second right-sided chest tube was placed today by Dr. Davison. Repeat blood work reveals WBC 5.2, hemoglobin 6.2, platelet count 133. Sodium 141, potassium 3.5, chloride 107, CO2 35, BUN 24 and creatinine 0.46. Blood sugar 132. Alkaline phosphatase 154. D-dimer 6.35. Patient is ordered for transfusion 1 unit packed RBCs today. Blood culture is MSSA and patient is on Ancef 2 g every 8 hours. Pleural fluid culture in progress. Patient has been afebrile, heart rate low 100s, respiratory rate 27, blood pressure 135/93, pulse ox 96%. Patient will be started on tube feedings today. 11/09: She remains intubated and on mechanical ventilation. She is on both Nimbex and Propofol. She remains intubated and on mechanical ventilation with tidal volume 400, FiO2 65 and PEEP of 10. Repeat chest x-ray reveals improving right apical pneumothorax measuring less than 5%. Stable bilateral diffuse infiltrates. WBC 8, hemoglobin 7.8 status post 1 unit of packed RBCs. Platelet count 123. Sodium 141, potassium 3.9, chloride 105, CO2 37. BUN 28 creatinine 0.51. Blood sugar 142. Inflammatory markers are improving with d-dimer 7.09, fibrinogen 159, LDH 1249, C-reactive protein 8.3, CK 23. Patient is on Kefzol for antibiotics. She remains with right-sided chest tube. She has been a febrile, heart rate 80, blood pressure 116/78, pulse ox 92%. Patient is not requiring vasopressors. 11/10: Initial chest x-ray this morning revealed interval development of 50% left-sided pneumothorax. Patient is status post chest tube placement on the left by Dr. Davison. Repeat chest x-ray revealed bilateral apical pneumothoraces measuring less than 5. Stable on the right improved on the left. Diffuse bilateral pulmonary parenchymal disease stable. Patient remains intubated and on mechanical ventilation. She is now off Nimbex. Tidal volume 500, FiO2 60% and PEEP of 8. Patient is on tube feedings. Repeat blood work reveals WBC 7.5, hemoglobin 7.7, platelet count 126. Sodium 139, potassium 3.3 and was replaced, chloride 98, CO2 38, BUN 28 creatinine 0.41. Cultures are running between 134-150. D-dimer 0.05, LDH 1338, CK 65, C-reactive protein less than 5. Sputum culture is in progress. Blood cultures no growth at 24 hours. All previous blood cultures are showing no growth. IgG is low at 471. Request a nurse contact Dr. Davison about IVIG infusion. 11/11: She remains in the intensive care unit, intubated and on mechanical ventilation with tidal volume 400, FiO2 50% and PEEP of 6. Patient now has bilateral chest tubes in place for bilateral pneumothoraces with right-sided air leak. Weaning will be attempted today. She has been afebrile, heart rate 95, blood pressure 148/81, pulse ox 96%. Repeat blood work reveals W BC 5.8, hemoglobin 10.3, platelet count 101. D-dimer 6.03. C-reactive protein less than 5, CK 44. LDH 1234. Sodium 133, potassium 3.8, chloride 94, CO2 38, BUN 22 and creatinine 0.32. Blood culture, sputum culture, pleural fluid culture also positive for MSSA. Patient is covered with Kefzol. 11/12: Patient remains in intensive care unit, intubated and on mechanical ventilation with tidal volume 400, FiO2 50% and PEEP of 6. She failed weaning trial yesterday and she was desatting and back on propofol as well as Precedex and fentanyl drips were added. Patient has been afebrile, heart rate 86, blood pressure 134/68, pulse ox 90%, respiratory rate 24. Repeat blood work reveals WBC 17.3, hemoglobin 9, platelets 164. Sodium 134, potassium 3.6, chloride 97, CO2 30, BUN 19 and creatinine 0.33. Blood sugars running between 127 and 141. Alkaline phosphatase 149. LDH 1437. C-reactive protein 6.4. Repeat chest x-ray reveals slight interval increase in the right-sided pneumothorax compared to prior exam. Correlate for pneumonia, edema or ARDS. She remains with bilateral chest tubes in place. Prognosis remains guarded. 11/13: Patient remains in the intensive care unit. She has been successfully extubated this morning and is on 15 L high flow nasal cannula. She has been afebrile, heart rate in the 80s, blood pressure 109/75. Repeat blood work reveals W BC 10.7, hemoglobin 7.3, platelet count 116. D-dimer 5.54. Sodium 134, potassium 4.0, chloride 97, CO2 33, BUN 20, creatinine 0.29. Blood sugars running between 119 and 143. LDH 1057, CK 22, C-reactive protein less than 5. Chest x-ray reveals small right apical pneumothorax slightly smaller. Right chest tube. No change in patchy airspace opacities in the lung right greater than left. Left-sided chest tube unchanged in position and resolution of left small apical pneumothorax. The patient's mental status is not back to baseline. She is somewhat confused. 11/14: Patient remains in the intensive care unit. PO 80s on NRB. Patient encouraged to keep mask on face. She has been afebrile, HR 80s - 90s, RR 28, BP 129/95. Repeat blood work reveals WBC 19.1, HGB 8.9, PLT 152. Sodium 134, K 3.7, Chloride 94, CO2 31. BUN 17, Creat 0.26. Ferritin 68.9. AST 49, ALT 17, AP149. LDH 2274. CK 61, CRP 29.4. CXR reveals stable diffuse infiltrates and small right apical pheumothorax. 11/15: Patient remains in the intensive care unit. Her breathing status appears to be stable. Pulse ox is running anywhere between 86 and 100% on 15 L high flow nasal cannula. She is complaining of right-sided pain in her chest secondary to the chest tube. Patient does have Dilaudid which she is receiving every 3 hours and we will add in Beulah. The left-sided chest tube was removed yesterday. She has been afebrile, heart rate in the 90s, blood pressure 116/74. Chest x-ray reveals similar findings to prior. WBC 14.0, hemoglobin 8.8, platelet count 171. D-dimer 3.61. Sodium 134, potassium 4.3, chloride 96, CO2 33, BUN 25 and creatinine 0.34. Blood sugars are controlled. Alkaline phosphatase 128. LDH 1634. CK 49. C-reactive protein 21.8. No plan to palpation of the intensive care unit today. We'll plan for Seymour catheter to be removed. 11/16: Patient remains in intensive care unit. She is now on high flow nasal cannula at 10 L. She is having some sinus tachycardia especially with eating breakfast this morning. She is on Dilaudid IV every 3 hours and Beulah was added yesterday and will encourage to use Beulah today and try and wean off Dilaudid. She continues to have pain at the chest tube site. Chest x-ray this morning reveals no significant interval change. Right-sided pneumothorax is likely decreased. CTA of the chest reveals no evidence of pulmonary embolism. Right- sided pneumothorax. Right chest tube in good position in the major fissure. 11/17:Patient remains in the intensive care unit. She is tachycardic up to 137 this morning and pulmonary medicine started her on metoprolol. She's been afebrile, respiratory rate in the 20s, blood pressure 117/83, pulse ox is 88-97% on 8 L nasal cannula high flow. Repeat blood work reveals to be BBC 13, hemoglobin 8.6, platelet count 181. D-dimer 2.23. Sodium 135. Potassium 4.2, chloride 97, CO2 31, BUN 27 creatinine 0.34. Blood sugars running between 93 and 141. Liver function tests are normal. LDH 1096. CK 24, CK 5.1. Repeat chest x-ray reveals similar findings, correlate for pneumonia. Right-sided chest tube remains in place which may be discontinued later today. Patient is complaining of significant pain to the right chest tube site and using Dilaudid around the clock. She states and Beulah does not help. BuSpar changed to scheduled twice daily. Patient has been evaluated by Dr. Faith and not appropriate for inpatient rehab. 11/18: A she seen today on the [facility] floor. Patient was complaining of migraine headaches and Fioricet was resumed. Patient is complaining of feeling so weak that she cannot move. She remains with chest tube in place. Breathing status seems to be stable. She is pulse ox seen in the 90s at 5 L high flow nasal cannula. Patient has been afebrile. Heart rate 99, blood pressure 126/80, pulse ox 97% on high flow 5 L. Repeat chest x-ray reveals stable findings. WBC 14.2, hemoglobin 9.9, sodium 136, potassium 4.6, creatinine 0.37. Patient is on cefepime as well as Lovenox, IV Solu-Medrol and supplements. 11/19: Patient is complaining of continued pain for which Beulah changed to Percocet. She has been receiving Dilaudid around the clock. She remains with chest tube in place. Pulse ox is been 91-98% on 4 L nasal cannula. She has been afebrile, heart rate 96 but episodes of tachycardia with movement, blood pressure 99/64. Blood sugars are running between 88 and 149. Discussed discharge planning which will be to [facility] or [facility] most likely on Sunday. 11/20: Patient had more leak yesterday with pneumothorax require chest tube without adjustment of her chest tube felt much comfortable finally continue current management and limited physical therapy at this point is still the plan probably for subacute rehab. 11/21: Patient is feeling much better today her right-sided pneumothorax and pleural effusion are improved still have chest tube in C loss or drainage. Pneumonitis has improved significantly, patient still losing weight, as well as under control, still having the plan to go to subacute rehab either on Sunday or Sunday. 11/22:patient has been afebrile, heart rate 84, blood pressure 99/61, pulse ox 95% on room air. Blood sugars are running between 103 and 161. Sputum culture, pleural fluid culture, blood culture are positive for MSSA. Repeat blood culture is no grwoth at 144 hours. Patient is not currently on any antibiotics. She is on Solu-Medrol 60 mg IV every 6 hours. She was reassessed by Dr. Faith and appears to be not a candidate for inpatient rehab. Repeat chest x-ray reveals patchy bilateral infiltrates with interval increase in size of right apical pneumothorax measuring 15%. CTS is planning to continue right pleural chest tube. The Dilaudid will be discontinued. Solu-Medrol decreased to 40 mg IV every 8 hours. 11/23: Patient remains afebrile, heart rate 101, blood pressure 109/68, pulse ox 90-96% on room air. Repeat chest x-ray reveals slight improvement of right apical pneumothorax measuring 5-10%. Diffuse bilateral patchy infiltrates stable. Yesterday, IV Solu-Medrol as transitioned to oral prednisone and Lovenox decreased to 40 mg daily. Repeat inflammatory markers reveal d-dimer of 2.27. Blood sugars are running between 7112. Patient will be started on nystatin for thrush. Heart rate has been in the 140s and we will discontinue metoprolol place patient back on her Inderal. She is also asking for Cepacol lozenges, Zyrtec and Flonase. Patient encouraged to be up in a chair. Await further input from cardiothoracic surgery. Discharge plan is for [facility]. Social work is following closely. 11/24: Patient has been afebrile, heart rate 92, blood pressure 96/55, pulse ox 96% on 2 L. Heart rate was better controlled through the night running 80s and 90s. Repeat chest x-ray reveals interval increase in size of the pneumothorax measuring 15%. Diffuse bilateral patchy infiltrates stable. No immediate plan for removal of chest tube by cardiothoracic surgery. Patient is complaining of pain and requesting that her pain medications be increased. Patient is currently on Beulah and Percocet which she should not be on both. Beulah will be discontinued. Patient is also complaining of ear pain and examination showed no acute findings. Patient is complaining of hoarse voice. REVIEW OF SYSTEMS Constitutional: No fever, no chills, no night sweats. No weight change. Reports weakness, Reports fatigue. No daytime sleepiness. EENT: Reports headache. No blurred vision or double vision, no loss of vision. No loss of Hearing, no ringing in the ears, no dizziness. No nasal drainage or congestion. No epistaxis. Reports hoarseness. No sore throat. Lungs: Reports shortness of breath, Reports cough, no sputum production. No wheezing. Cardiovascular: No chest pain, no lower extremity edema. No palpitations. No paroxysmal nocturnal dyspnea. No orthopnea. No lightheadedness or dizziness. No syncopal episodes. Abdominal: No abdominal pain. No nausea, vomiting. No diarrhea. No constipation. No bloody or tarry stools. No loss of appetite. Genitourinary: No dysuria, increased frequency, urgency. No urinary retention. Musculoskeletal: No myalgias. No muscle weakness, no gait dysfunction, no f requent falls. No back pain. No neck pain. Integumentary: No wounds, no lesions. Neurologic: No aphasia. No facial droop. No change in mentation. No head injury. No headache. No paralysis. No paresthesia. Psychiatric: No depression. No anxiety. Endocrine: No abnormal blood sugars. PHYSICAL EXAMINATION Gen: This is a 39-year-old female. Patient is resting in bed and appears to be comfortable at rest on room air. HEENT: Head is atraumatic, normocephalic. Pupils equal, round. Sclerae is anicteric. NECK: Supple. No JVD. No lymphadenopathy. No thyromegaly. Oral mucous membranes are dry. LUNGS: Scattered rhonchi, crackles in the bases. No intercostal retractions. HEART: Regular rate and rhythm. No murmur. ABDOMEN: Soft. Bowel sounds are present. No masses. No tenderness. EXTREMITIES: No pedal edema. No calf tenderness. Dorsalis pedis palpable bilaterally. NEUROLOGICAL: Patient is awake, alert and oriented x3. Cranial nerves 2 through 12 are grossly intact. ASSESSMENT AND PLAN 1. Acute hypoxic respiratory failure secondary to acute Covid 19 pneumonia, MSSA pneumonia, has been on supportive care seen pulmonary still on O2 still on updraft treatment and worsening complication of pneumothorax require attention at this point. Continue oral prednisone. 2. Right sided pneumothorax requiring chest tube 11/06 and 11/08. Discontinue IV Dilaudid, continue only Percocet for pain control. Beulah discontinued. Maintain right-sided chest tube. 3. Acute exacerbation of mild intermittent bronchial asthma. Continue Ventolin inhaler 4 times daily as needed. 4. Recurrent depression and generalized anxiety disorder: She is on multiple medication between BuSpar, Abilify, Wellbutrin and Cymbalta 5. Primary immunodeficiency. Which made her prognosis much worse with a Covid 19. 6. Chronic anemia of chronic disease most likely due to history of bleeding ulcers and alcohol abuse. 7. Tobacco use and dependence including taping. 8. Daily alcohol use/abuse. Patient apparently has had no alcohol intake for 7 days. Monitor closely for DTs 9. Debility: Continue physical therapy. 10. Acute anemia secondary to sepsis without blood loss. S/p transfusion of 1 unit of packed RBCs. 11. Migraine headaches. Continue Fioricet as needed. Hold Inderal 60 mg daily. 12. Sepsis with MSSA bacteremia, POA. Continue Kafzol. 13. Moderate protein calorie malnutrition. Patient maintain on tube feedings 14. Gastroesophageal reflux disease with history of bleeding ulcers. Continue Protonix 40 mg daily and Carafate 1 g 4 times daily. 15. Tachycardia. Patient resumed on Inderal discontinue Lopressor. 16. Thrush. Patient started on nystatin. 17. DVT prophylaxis. Lovenox. DISCHARGE PLAN Subacute rehab possible to [facility] on Sunday. Impression and plan of care have been directed as dictated by the signing physician. Isabel Samayoa nurse practitioner acting as scribe for signing physician. Objective - Vital Signs Vital signs: Vital Signs Temp 97.3 F L 11/24/20 03:01 Pulse 92 11/24/20 03:01 Resp 18 11/24/20 03:01 BP 96/55 11/24/20 03:01 Pulse Ox 96 11/24/20 03:01 Intake & Output 11/23/20 11/24/20 11/24/20 18:59 06:59 18:59 Intake Total 780 Output Total 0 Balance 780 Weight 56.6 kg Intake: IV 240 Sodium Chloride 0.9% 1, 240 000 ml @ 20 mls/hr IV . Q24H SHERRON Rx#:[id number] Oral 540 Output: Chest Tube Drainage 0 Chest Tube Right 0 Other: Voiding Method Bedpan # Voids 9 4 # Bowel Movements 3 ABP, PAP, CO, CI - Last Documented Arterial Blood Pressure 119/75 - Labs CBC & Chem 7: 11/22/20 06:29 11/22/20 06:29 Labs: Abnormal Lab Results - Last 24 Hours (Table) 11/23/20 11/23/20 11/23/20 Range/Units 07:06 11:14 20:45 POC Glucose (mg/dL) 71 L 116 H (75-99) mg/dL Lactate Dehydrogenase 298 H (120-246) U/L
[2020-11-24 16:37] LABS: Glucose,Whole Blood 107 mg/dL (75-99)
[2020-11-24] MEDS: LORATADINE 10 MG TAB PO PRN (21:57)
[2020-11-24] MEDS: MELATONIN 3 MG TABLET PO SCH ×2 (22:38→22:39)
[2020-11-25] MEDS: oxyCODONE-APAP 5-325MG 1 EACH TAB PO PRN ×4 (03:41→21:48)
[2020-11-25] MEDS: BENZOCAINE/MENTHOL LOZENG 1 EACH LOZENGE MUCOUS MEM PRN ×2 (03:53→21:50)
[2020-11-25] MEDS: ALBUTEROL HFA INHALER INHALATION PRN ×3 (07:41→16:00)
[2020-11-25] MEDS: ENOXAPARIN 40 MG/0.4 ML SYRINGE SQ SCH (08:13)
[2020-11-25] MEDS: SUCRALFATE 1 GM TAB PO SCH ×4 (08:13→21:45)
[2020-11-25] MEDS: PANTOPRAZOLE 40 MG/10 ML VIAL IVP SCH ×2 (08:13→21:45)
[2020-11-25] MEDS: busPIRone HCl 10 MG TAB PO SCH ×2 (08:13→21:44)
[2020-11-25] MEDS: CHOLECALCIFEROL 25 MCG (1000 IU) TABLET PO SCH (08:14)
[2020-11-25] MEDS: ASCORBIC ACID 500 MG TAB PO SCH (08:14)
[2020-11-25] MEDS: predniSONE 10 MG TAB PO SCH (08:14)
[2020-11-25] MEDS: NYSTATIN 100,000 UNIT/ML SUSP 500,000 UNIT/5 ML CUP PO SCH ×4 (08:14→21:47)
[2020-11-25] MEDS: DULoxetine HCL 60 MG CAPSULE.DR PO SCH (08:14)
[2020-11-25] MEDS: buPROPion XL 150 MG TAB.ER.24H PO SCH (08:14)
[2020-11-25] MEDS: ARIPiprazole 5 MG TAB PO SCH (08:14)
[2020-11-25] MEDS: ZINC SULFATE 220 MG CAP PO SCH (08:14)
[2020-11-25] MEDS: PROPRANOLOL LA 60 MG CAP.SA.24H PO SCH (08:15)
[2020-11-25] MEDS: TOPIRAMATE 25 MG TAB PO SCH (08:15)
[2020-11-25] MEDS ORDERED: LIDOCAINE 1% INJ 10MG/ML (20 ML MDV) ONE (09:08)
[2020-11-25] MEDS ORDERED: ALPRAZolam 0.25 MG TAB PO STA (09:30)
--- NOTE | 2020-11-25 09:31 | XR ---
EXAMINATION TYPE: XR chest 1V portable DATE OF EXAM: 11/25/2020 COMPARISON: 11/24/2020 HISTORY: Follow-up pneumothorax TECHNIQUE: Single frontal view of the chest is obtained. FINDINGS: Right-sided chest tube is unchanged in position. Right sided pneumothorax persists and may be slightl y smaller in size with apical pleural distance of 1.9 cm currently versus 2.7 cm previously. Intersti tial and alveolar infiltrates persist throughout both lung eng with interval progression suggested . The cardiac silhouette size is within normal limits. The osseous structures are intact. IMPRESSION: 1. Right sided pneumothorax persists and may be slightly smaller in size with apical pleural distanc e of 1.9 cm currently versus 2.7 cm previously. Interstitial and alveolar infiltrates persist through out both lung eng with interval progression suggested.
--- NOTE | 2020-11-25 09:44 | P.PN ---
Subjective Progress Note Date: 11/25/20 Principal diagnosis: Persistent right pneumothorax. Previous medical history of GI bleed secondary to history of 2 nonbleeding antral ulcers requiring transfusion of 2 units packed red blood cells, asthma, irritable bowel syndrome, anxiety, depression, bipolar, post traumatic stress disorder, fibromyalgia, chronic ongoing tobacco, draping use and EtOH abuse. The patient was seen and examined this morning on the fourth floor medical surgical unit, chest xray reviewed with Dr. Nolasco. She is sitting up in bed in no acute distress. Denies pain except for minimal pain to her chest tube insertion site, states shortness of breath has continued to improve. Currently on room air with oxygen saturations in the mid 90s. Right pleural chest tube remains present to water seal, intermittent air leak present. No other new concerns. Objective - Vital Signs Vital signs: Vital Signs Temp 98.1 F 11/25/20 03:51 Pulse 95 11/25/20 03:51 Resp 18 11/25/20 03:51 BP 93/61 11/25/20 03:51 Pulse Ox 99 11/25/20 03:51 Intake & Output 11/24/20 11/25/20 11/25/20 18:59 06:59 18:59 Intake Total 780 Balance 780 Weight 56.9 kg Intake: IV 240 Sodium Chloride 0.9% 1, 240 000 ml @ 20 mls/hr IV . Q24H [facility] Rx#:[id number] Oral 540 Other: Voiding Method Bedpan Bedside Commode Bedpan # Voids 1 4 ABP, PAP, CO, CI - Last Documented Arterial Blood Pressure 119/75 - Exam CONSTITUTIONAL: Appears comfortable, cooperative, no acute distress RESPIRATORY: Lungs sounds diminished bilaterally. Respirations even, nonlabored. Currently on room air with oxygen saturation 99%. Able to achieve 1000 mL on incentive spirometry. Strong cough. CARDIOVASCULAR: S1, S2 present. Tachy but regular rate and rhythm, sinus tach on telemetry. Palpable peripheral pulses bilaterally. No edema present. No calf pain or tenderness noted. GASTROINTESTINAL: Abdomen soft, nontender, nondistended. Active bowel sounds present 4 quadrants. Tolerating diet. GENITOURINARY: Continues to void INTEGUMENTARY: Skin is warm and dry with evidence of good perfusion. NEUROLOGIC: Cranial nerves II through XII intact MUSKULOSKELETAL: Able to move all extremities, strength equal bilaterally, gait normal PSYCHIATRIC: Alert and oriented to person place and time, appropriate affect, intact judgment and insight INVASIVE LINES AND TUBES: Right pleural chest tube present waterseal, intermittent air leak present. - Allied health notes Allied health notes reviewed: nursing - Labs CBC & Chem 7: 11/22/20 06:29 11/22/20 06:29 Labs: Abnormal Lab Results - Last 24 Hours (Table) 11/24/20 Range/Units 16:36 POC Glucose (mg/dL) 107 H (75-99) mg/dL - Imaging and Cardiology Chest x-ray: image reviewed Assessment and Plan Assessment: 1. Persistent right pneumothorax despite right pleural chest tube being in place 2. Acute hypoxic respiratory failure secondary to acute COVID 19 pneumonia 3. MSSA bacteremia, sputum, pleural fluid 4. History of anemia with nonbleeding antral ulcers, status post transfusion of 1 unit of packed red blood cells on admission 5. Chronic ongoing tobacco dependence and vaping use 6. Irritable bowel syndrome 7. History of fibromyalgia 8. History of asthma 9. History of bipolar disorder 10. History of ADHD 11. History of depression 12. History of EtOH abuse, drinks 1 pint of tequila daily Plan: 1. New anterior right pleural chest tube placed by Dr. Nolasco. Monitor for air leak and right pneumothorax resolution. Will discontinue lateral pleural chest tube. 2. No surgical intervention is warranted at this time. 3. Encourage use of her incentive spirometry 10 times every hour while awake. 4. Bronchodilators, steroids per pulmonology 5. Continue to monitor her daily chest x-rays. 6. More recommendations to follow based on patient's clinical course. Time with Patient: Greater than 30
[2020-11-25] MEDS: KETOROLAC 15 MG/ML 1 ML VIAL IVP SCH ×3 (09:54→21:46)
[2020-11-25] MEDS: TRIAMCINOLONE 0.1% CREAM 80 GM TUBE TOPICAL SCH ×2 (10:17→21:46)
--- NOTE | 2020-11-25 10:26 | XR ---
EXAMINATION TYPE: XR chest 1V portable DATE OF EXAM: 11/25/2020 Comparison: 11/25/2020, earlier today Clinical History: 39-year-old female right pneumo post 2nd CT insertion Findings: Second right-sided chest tube now inserted. Small right apical pneumothorax, decreased in size curren tly measuring 8 mm versus 2.0 cm, previously. The lateral component to the pneumothorax has resolved. Increased interstitial opacities and patchy mid and lower lung airspace opacities persist. No pleura l effusion. Bilateral nipple bars. Heart normal size. Impression: 1. Second right-sided chest tube inserted with decreasing size of the right-sided pneumothorax. The l ateral component to the pneumothorax has resolved and the apical component now measures 8 mm versus 2 .0 cm, previously. 2. Continued interstitial infiltrates and patchy peripheral mid and lower lung opacities.
--- NOTE | 2020-11-25 11:54 | P.PN ---
Subjective Progress Note Date: 11/25/20 Principal diagnosis: Acute hypoxic respiratory failure secondary to covid 19 pneumonia, and bilateral pneumothoraces secondary to barotrauma. The patient is seen today 11/20/2020 in follow-up on the regular medical floor. She is sitting up in a chair at the bedside. Awake and alert in no acute distress. Maintaining O2 saturations in the 90s on 4 L/m per nasal cannula. He is afebrile. Hemodynamically stable. She remains on cefepime, IV Solu-Medrol, Lovenox, vitamin supplements. Right-sided chest tube remains in place to wall suction. Leak is still present. Persistent right-sided pneumothorax. Chest tube was manipulated this morning by CT services for better positioning. She continues to work well the incentive spirometer. The patient is seen today 11/21/2020 in follow-up on the regular medical floor. Currently sitting up in bed. Awake and alert in no acute distress. Maintaining O2 saturations in the 90s on 2 L/m per nasal cannula. Chest x-ray revealing improved right pneumothorax with trace residual. Persistent moderate opacities. Chest tube remains in place. Leak is still present. On 11/22/2020 patient seen in follow-up on medical surgical floor she is sitting up in the chair, breathing comfortable, she remains on room air, and sometimes she applies her oxygen back on at 2 L, her pulse ox on room air is 96%, on 2 L her pulse ox 100%, she is awake and alert, oriented 3, itching questions appropriate, no altered mentation, she's had no fever or chills patient still has chest tube in place, in the right chest, today's chest x-ray shows slight interval increase in the size of right apical pneumothorax measuring at 15%, CT surgery is following, right-sided chest tube remains to wall suction. No worsening dyspnea, no worsening chest discomfort. She is working on incentive spirometer. Remains on IV Solu-Medrol 40 mg every 8 hours, which at this point we can switch to oral prednisone, she remains on vitamins, and Lovenox 30 mg by mouth twice daily. Today's labs have been reviewed, cytosis is improving, with a total, 13.5, hemoglobin is 9.1, electrolytes within normal limits, B1 is 25 creatinine 0.4, her last d-dimer on 11/17/2020 was 2.23 Patient was reevaluated today on 11/23/2020, remains on the regular medical floor, comfortable, in no distress, however she continues to have a right-sided chest tube in place, and she continues to have air leak. Continues to have right apical pneumothorax. Patient is on 2 L nasal cannula, and her O2 sats is 98%. Continues to have a left-sided subclavian triple-lumen catheter which I have ordered to be discontinued. Thoracic surgery is still forming on her persistent right-sided pneumothorax, she may eventually require surgical intervention. Based on the chest x-ray, the chest tube seems to be in the proper position, nonetheless she continues to have some air leak and apical pneumothorax. Reevaluated today on 11/24/2020, patient is on 2 L nasal cannula, in no distress, continues to have significant air leak in her right sided chest tube. She was told by surgery that in the next 3 more days, if she continues to have an air leak, surgical intervention would be considered. In the meantime the patient is hemodynamically stable, she is in no distress. Chest x-ray today continues to show at least a 30% right-sided pneumothorax in spite of the chest tube in place. Patient was reevaluated today on 11/25/2020, remains on 2 L nasal cannula, she was seen by surgery again, she continues to have air leak in the right-sided chest tube Pleur-evac. Apparently Dr. Orozco decided to place another chest tube today, and this was done at a higher level and anteriorly. Follow-up chest x- ray continues to show a small right-sided apical pneumothorax. Clinically the patient is about the same. Objective - Vital Signs Vital signs: Vital Signs Temp 98.6 F 11/25/20 10:00 Pulse 62 11/25/20 10:00 Resp 16 11/25/20 10:00 BP 96/60 11/25/20 10:00 Pulse Ox 94 L 11/25/20 10:00 Intake & Output 11/24/20 11/25/20 11/25/20 18:59 06:59 18:59 Intake Total 780 Balance 780 Weight 56.9 kg Intake: IV 240 Sodium Chloride 0.9% 1, 240 000 ml @ 20 mls/hr IV . Q24H [facility] Rx#:[id number] Oral 540 Other: Voiding Method Bedpan Bedside Commode Bedpan # Voids 1 4 ABP, PAP, CO, CI - Last Documented Arterial Blood Pressure 119/75 - Exam Physical Exam revealed a 39-year-old female in no distress. On 2 L nasal cannula. Head: Atraumatic normocephalic. HEENT:[Neck is supple.] [No neck masses.] [No thyromegaly.] [No JVD.] Left subclavian triple-lumen catheter is noted. Chest: 2 right-sided chest tubes were noted, minimal crackles at the bases no rhonchi and no wheezes Cardiac Exam: [Normal S1 and S2, no S3 gallop, no murmur.] Abdomen: [Soft, nontender, no megaly, no rebound, no guarding, normal bowel luan nds.] Extremities: [No clubbing, no edema, no cyanosis.] Neurological Exam: [No focal neurologic deficit.] Alert oriented 3. Psychiatric: Normal mood affect and normal mental status examination. HEENT: No rashes Musculoskeletal: No deformities noted limitation range of motion - Labs CBC & Chem 7: 11/22/20 06:29 11/22/20 06:29 Labs: Abnormal Lab Results - Last 24 Hours (Table) 11/24/20 Range/Units 16:36 POC Glucose (mg/dL) 107 H (75-99) mg/dL Assessment and Plan Assessment: Impression: Acute hypoxic respiratory failure secondary to covid 19 pneumonia, requiring in tubation and mechanical ventilation. Patient did receive toci Acute bilateral pneumothoraces requiring bilateral chest tube placement felt to be related to barotrauma, expected. Persistent right-sided pneumothorax with chest tube in place, and continues to have air leak. Hence another chest tube was placed by Dr. Nolasco on 11/25/2020. MSSA bacteremia and complicated parapneumonic effusion with MSSA infection, no empyema. Tobacco dependence syndrome. Generalized anxiety disorder History of immune deficiency disorder Irritable bowel syndrome Migraine cephalgia Fibromyalgia Status post right-sided tube thoracostomy 2 for barotrauma the last chest tube was placed today on 11/25/[address] Nolasco, the initial one was placed by Dr. Davison. Recommendation: Continue chest tube to suction Continue present medications Lower the dose of the prednisone even further. Thoracic surgery to continue to follow on the right-sided pneumothorax. Once her chest tubes are removed, patient could be discharged home. We'll continue to follow. Time with Patient: Less than 30
[2020-11-25] MEDS: SODIUM CHLORIDE 0.9% 1,000 ML IV SCH (12:37)
--- NOTE | 2020-11-25 13:41 | P.PN ---
Subjective Progress Note Date: 11/25/20 HISTORY OF PRESENT ILLNESS This is a 39-year-old female patient of Dr. Gonzalez with past medical history of GI bleed in 2008, July 2020 was admitted for GI bleed secondary to 2 no nbleeding antral ulcers requiring transfusion 2 units packed RBCs, tobacco use, alcohol abuse, recurrent depression, generalized anxiety disorder. Patient was diagnosed with COVID-19 on October 30. She complains of increasing shortness of breath, cough, congestion, fever and chills and hoarseness. She continued to worsen significantly over the past 2 days. She also complains of bloody sputum production. Patient came into [facility] emergency center for evaluation. Temperature 98.3, heart rate 102, respiratory rate 40, blood pressure 95/64, pulse ox 71%. EKG was a sinus rhythm no acute ST elevation. W BC 9.4, hemoglobin 8.6, platelet count 284. Sodium 135, potassium 2.8, chloride 102, CO2 21, BUN 19 creatinine 0.88. Blood sugar 92. AST 71, ALT 24, alkaline phosphatase 264 Georgiana phosphatase 264, LDH 2067, CA reactive protein 320.8. Lactic acid 3.1. CT angiogram of the chest reveals no evidence pulmonary embolism. Severe pulmonary interstitial and airspace edema. Chest x-ray reveals pulmonary interstitial pneumonia worse than recent exam. Some airspace component. Patient is status post 2 L of IV fluids, potassium replacement, Dilaudid, patient seen by pulmonary medicine and started on Tocilizumab. 11/05: Patient remains in the intensive care unit. She is a nonrebreather mask and AorVp and can maintain a pulse ox in the 90s. If she removes these, patient follows less than 70s. She is very anxious today and has many questions. She does have large number of psychiatric medications which have been resumed. We will also add and Xanax twice daily as needed. She has been afebrile, heart rate 89, blood pressure 116/79, pulse ox 95%. Repeat blood work reveals WBC 11.8, hemoglobin 7.7, platelet count 243. D-dimer 1.95. Sodium 135, electrolyt es otherwise normal, BUN 18 creatinine 0.45. Blood sugars running between 117- 129. AST 48, ALT 18, alkaline phosphatase 218, LDH 2243. C-reactive protein 254. Patient had 2 blood cultures, one is showing no growth at 24 hours and the second obtained at 2240 showing gram-positive cocci. She was started on vancomycin. 11/06: Patient remains in ICU, still on a BiPAP treatments,, continuously, terri barber did not have any meals for the past 72 hours secondary to hypoxemia and air hunger without the reading device. Patient has not slept well at all, cytokinin markers are elevated, blood culture growing Staphylococcus from specimen collected November 03 are pending sensitivity. Patient currently is on IV cefazolin, IV vancomycin, followed by infectious disease. So Medrol 60 mg every 6 hours, most of her oral medications cannot be complied upon secondary to hypoxemia event removed briefly. Hemoglobin at 7.2, blood gas shows pCO2 54, PaO2 of 67, 7.39 pH. Double basic count of under 10, creatinine of 0.5, LDH 1845, alkaline phosphatase 194. Albumin low at 2.6, blood pressure stable,Heart rate of 114, blood pressure of 135/90. Pulse ox 85-86 at BiPAP treatments. 11/07 yesterday afternoon, patient required placement of right chest tube secondary to spontaneous pneumothorax placed by the ER doctor,, patient has worsening respiratory status, and was intubated by the ER physician currently with tidal volume of 40, PEEP of 10, assist control rate of 24, FiO2 of 80%. There is residual small pneumothorax right side, there is a left subclavian triple-lumen placed by Dr. Harrington today. There is consult for nutrition, has an OG tube, for which feedings would be started once completed. Chest x-ray shows bilateral diffuse infiltrates, creatinine of 0.4, LDH of 1630, CRP of 36 platelet count 132, hemoglobin 7.3 11/08: Patient remains in the intensive care unit, intubated and on mechanical ventilation with FiO2 100%, tidal volume 400 and PEEP of 10. Patient is currently on sedation. Repeat chest x-ray today reveals increase in size of right-sided pneumothorax since previous measuring of 3.5 cm today compared to 1.2 cm yesterday. Severe interstitial infiltrates throughout the lungs bilaterally slightly increased from previous. A second right-sided chest tube was placed today by Dr. Davison. Repeat blood work reveals WBC 5.2, hemoglobin 6.2, platelet count 133. Sodium 141, potassium 3.5, chloride 107, CO2 35, BUN 24 and creatinine 0.46. Blood sugar 132. Alkaline phosphatase 154. D-dimer 6.35. Patient is ordered for transfusion 1 unit packed RBCs today. Blood culture is MSSA and patient is on Ancef 2 g every 8 hours. Pleural fluid culture in progress. Patient has been afebrile, heart rate low 100s, respiratory rate 27, blood pressure 135/93, pulse ox 96%. Patient will be started on tube feedings today. 11/09: She remains intubated and on mechanical ventilation. She is on both Nimbex and Propofol. She remains intubated and on mechanical ventilation with tidal volume 400, FiO2 65 and PEEP of 10. Repeat chest x-ray reveals improving right apical pneumothorax measuring less than 5%. Stable bilateral diffuse infiltrates. WBC 8, hemoglobin 7.8 status post 1 unit of packed RBCs. Platelet count 123. Sodium 141, potassium 3.9, chloride 105, CO2 37. BUN 28 creatinine 0.51. Blood sugar 142. Inflammatory markers are improving with d-dimer 7.09, fibrinogen 159, LDH 1249, C-reactive protein 8.3, CK 23. Patient is on Kefzol for antibiotics. She remains with right-sided chest tube. She has been a febrile, heart rate 80, blood pressure 116/78, pulse ox 92%. Patient is not requiring vasopressors. 11/10: Initial chest x-ray this morning revealed interval development of 50% left-sided pneumothorax. Patient is status post chest tube placement on the left by Dr. Davison. Repeat chest x-ray revealed bilateral apical pneumothoraces measuring less than 5. Stable on the right improved on the left. Diffuse bilateral pulmonary parenchymal disease stable. Patient remains intubated and on mechanical ventilation. She is now off Nimbex. Tidal volume 500, FiO2 60% and PEEP of 8. Patient is on tube feedings. Repeat blood work reveals WBC 7.5, hemoglobin 7.7, platelet count 126. Sodium 139, potassium 3.3 and was replaced, chloride 98, CO2 38, BUN 28 creatinine 0.41. Cultures are running between 134-150. D-dimer 0.05, LDH 1338, CK 65, C-reactive protein less than 5. Sputum culture is in progress. Blood cultures no growth at 24 hours. All previous blood cultures are showing no growth. IgG is low at 471. Request a nurse contact Dr. Davison about IVIG infusion. 11/11: She remains in the intensive care unit, intubated and on mechanical ventilation with tidal volume 400, FiO2 50% and PEEP of 6. Patient now has bilateral chest tubes in place for bilateral pneumothoraces with right-sided air leak. Weaning will be attempted today. She has been afebrile, heart rate 95, blood pressure 148/81, pulse ox 96%. Repeat blood work reveals W BC 5.8, hemoglobin 10.3, platelet count 101. D-dimer 6.03. C-reactive protein less than 5, CK 44. LDH 1234. Sodium 133, potassium 3.8, chloride 94, CO2 38, BUN 22 and creatinine 0.32. Blood culture, sputum culture, pleural fluid culture also positive for MSSA. Patient is covered with Kefzol. 11/12: Patient remains in intensive care unit, intubated and on mechanical ventilation with tidal volume 400, FiO2 50% and PEEP of 6. She failed weaning trial yesterday and she was desatting and back on propofol as well as Precedex and fentanyl drips were added. Patient has been afebrile, heart rate 86, blood pressure 134/68, pulse ox 90%, respiratory rate 24. Repeat blood work reveals WBC 17.3, hemoglobin 9, platelets 164. Sodium 134, potassium 3.6, chloride 97, CO2 30, BUN 19 and creatinine 0.33. Blood sugars running between 127 and 141. Alkaline phosphatase 149. LDH 1437. C-reactive protein 6.4. Repeat chest x-ray reveals slight interval increase in the right-sided pneumothorax compared to prior exam. Correlate for pneumonia, edema or ARDS. She remains with bilateral chest tubes in place. Prognosis remains guarded. 11/13: Patient remains in the intensive care unit. She has been successfully extubated this morning and is on 15 L high flow nasal cannula. She has been afebrile, heart rate in the 80s, blood pressure 109/75. Repeat blood work reveals W BC 10.7, hemoglobin 7.3, platelet count 116. D-dimer 5.54. Sodium 134, potassium 4.0, chloride 97, CO2 33, BUN 20, creatinine 0.29. Blood sugars running between 119 and 143. LDH 1057, CK 22, C-reactive protein less than 5. Chest x-ray reveals small right apical pneumothorax slightly smaller. Right chest tube. No change in patchy airspace opacities in the lung right greater than left. Left-sided chest tube unchanged in position and resolution of left small apical pneumothorax. The patient's mental status is not back to baseline. She is somewhat confused. 11/14: Patient remains in the intensive care unit. PO 80s on NRB. Patient encouraged to keep mask on face. She has been afebrile, HR 80s - 90s, RR 28, BP 129/95. Repeat blood work reveals WBC 19.1, HGB 8.9, PLT 152. Sodium 134, K 3.7, Chloride 94, CO2 31. BUN 17, Creat 0.26. Ferritin 68.9. AST 49, ALT 17, AP149. LDH 2274. CK 61, CRP 29.4. CXR reveals stable diffuse infiltrates and small right apical pheumothorax. 11/15: Patient remains in the intensive care unit. Her breathing status appears to be stable. Pulse ox is running anywhere between 86 and 100% on 15 L high flow nasal cannula. She is complaining of right-sided pain in her chest secondary to the chest tube. Patient does have Dilaudid which she is receiving every 3 hours and we will add in Dumont. The left-sided chest tube was removed yesterday. She has been afebrile, heart rate in the 90s, blood pressure 116/74. Chest x-ray reveals similar findings to prior. WBC 14.0, hemoglobin 8.8, platelet count 171. D-dimer 3.61. Sodium 134, potassium 4.3, chloride 96, CO2 33, BUN 25 and creatinine 0.34. Blood sugars are controlled. Alkaline phosphatase 128. LDH 1634. CK 49. C-reactive protein 21.8. No plan to palpation of the intensive care unit today. We'll plan for Seymour catheter to be removed. 11/16: Patient remains in intensive care unit. She is now on high flow nasal cannula at 10 L. She is having some sinus tachycardia especially with eating breakfast this morning. She is on Dilaudid IV every 3 hours and Dumont was added yesterday and will encourage to use Dumont today and try and wean off Dilaudid. She continues to have pain at the chest tube site. Chest x-ray this morning reveals no significant interval change. Right-sided pneumothorax is likely decreased. CTA of the chest reveals no evidence of pulmonary embolism. Right- sided pneumothorax. Right chest tube in good position in the major fissure. 11/17:Patient remains in the intensive care unit. She is tachycardic up to 137 this morning and pulmonary medicine started her on metoprolol. She's been afebrile, respiratory rate in the 20s, blood pressure 117/83, pulse ox is 88-97% on 8 L nasal cannula high flow. Repeat blood work reveals to be BBC 13, hemoglobin 8.6, platelet count 181. D-dimer 2.23. Sodium 135. Potassium 4.2, chloride 97, CO2 31, BUN 27 creatinine 0.34. Blood sugars running between 93 and 141. Liver function tests are normal. LDH 1096. CK 24, CK 5.1. Repeat chest x-ray reveals similar findings, correlate for pneumonia. Right-sided chest tube remains in place which may be discontinued later today. Patient is complaining of significant pain to the right chest tube site and using Dilaudid around the clock. She states and Dumont does not help. BuSpar changed to scheduled twice daily. Patient has been evaluated by Dr. Faith and not appropriate for inpatient rehab. 11/18: A she seen today on the [facility] floor. Patient was complaining of migraine headaches and Fioricet was resumed. Patient is complaining of feeling so weak that she cannot move. She remains with chest tube in place. Breathing status seems to be stable. She is pulse ox seen in the 90s at 5 L high flow nasal cannula. Patient has been afebrile. Heart rate 99, blood pressure 126/80, pulse ox 97% on high flow 5 L. Repeat chest x-ray reveals stable findings. WBC 14.2, hemoglobin 9.9, sodium 136, potassium 4.6, creatinine 0.37. Patient is on cefepime as well as Lovenox, IV Solu-Medrol and supplements. 11/19: Patient is complaining of continued pain for which Dumont changed to Percocet. She has been receiving Dilaudid around the clock. She remains with chest tube in place. Pulse ox is been 91-98% on 4 L nasal cannula. She has been afebrile, heart rate 96 but episodes of tachycardia with movement, blood pressure 99/64. Blood sugars are running between 88 and 149. Discussed discharge planning which will be to [facility] or [facility] most likely on Sunday. 11/20: Patient had more leak yesterday with pneumothorax require chest tube without adjustment of her chest tube felt much comfortable finally continue current management and limited physical therapy at this point is still the plan probably for subacute rehab. 11/21: Patient is feeling much better today her right-sided pneumothorax and pleural effusion are improved still have chest tube in C loss or drainage. Pneumonitis has improved significantly, patient still losing weight, as well as under control, still having the plan to go to subacute rehab either on Sunday or Sunday. 11/22:patient has been afebrile, heart rate 84, blood pressure 99/61, pulse ox 95% on room air. Blood sugars are running between 103 and 161. Sputum culture, pleural fluid culture, blood culture are positive for MSSA. Repeat blood culture is no grwoth at 144 hours. Patient is not currently on any antibiotics. She is on Solu-Medrol 60 mg IV every 6 hours. She was reassessed by Dr. Faith and appears to be not a candidate for inpatient rehab. Repeat chest x-ray reveals patchy bilateral infiltrates with interval increase in size of right apical pneumothorax measuring 15%. CTS is planning to continue right pleural chest tube. The Dilaudid will be discontinued. Solu-Medrol decreased to 40 mg IV every 8 hours. 11/23: Patient remains afebrile, heart rate 101, blood pressure 109/68, pulse ox 90-96% on room air. Repeat chest x-ray reveals slight improvement of right apical pneumothorax measuring 5-10%. Diffuse bilateral patchy infiltrates stable. Yesterday, IV Solu-Medrol as transitioned to oral prednisone and Lovenox decreased to 40 mg daily. Repeat inflammatory markers reveal d-dimer of 2.27. Blood sugars are running between 7112. Patient will be started on nystatin for thrush. Heart rate has been in the 140s and we will discontinue metoprolol place patient back on her Inderal. She is also asking for Cepacol lozenges, Zyrtec and Flonase. Patient encouraged to be up in a chair. Await further input from cardiothoracic surgery. Discharge plan is for [facility]. Social work is following closely. 11/24: Patient has been afebrile, heart rate 92, blood pressure 96/55, pulse ox 96% on 2 L. Heart rate was better controlled through the night running 80s and 90s. Repeat chest x-ray reveals interval increase in size of the pneumothorax measuring 15%. Diffuse bilateral patchy infiltrates stable. No immediate plan for removal of chest tube by cardiothoracic surgery. Patient is complaining of pain and requesting that her pain medications be increased. Patient is currently on Dumont and Percocet which she should not be on both. Dumont will be discontinued. Patient is also complaining of ear pain and examination showed no acute findings. Patient is complaining of hoarse voice. 11/25: Patient has been afebrile, heart rate 95, blood pressure 93/61, pulse ox 99% on room air. Sugars running between 89 and 107 and complete cbg discontinued. She'll chest x-ray this morning revealed right-sided pneumothorax persists may slightly smaller in size with apical pleural distance of 1.9 cm versus 2.7 cm previously. Interstitial and alveolar infiltrates persist throughout both lung eng with interval progression suggested. A new right-sided chest tube was place in the right anterior chest wall. Repeat CXR reveals second right-sided chest tube inserted with decreasing size of right- sided pneumothorax. Lateral component to the pneumothorax has resolved and apical component now at 8 mm versus 2 cm. Continued interstitial infiltrates a nd patchy peripheral mid and lower lung opacities. Patient states her pain is better today. She still has the right lateral pleural chest tube in place. Portal was started by cardiothoracic surgery. Telemetry will be discontinued. Prednisone decreased to 10 mg daily by pulmonary medicine. Discharge plan remains to go to [facility] for subacute rehab. REVIEW OF SYSTEMS Constitutional: No fever, no chills, no night sweats. No weight change. Reports weakness, Reports fatigue. No daytime sleepiness. EENT: Reports headache. No blurred vision or double vision, no loss of vision. No loss of Hearing, no ringing in the ears, no dizziness. No nasal drainage or congestion. No epistaxis. Reports hoarseness. No sore throat. Lungs: Reports shortness of breath, Reports cough, no sputum production. No wheezing. Cardiovascular: Reports chest wall pain, no lower extremity edema. No palpitations. No paroxysmal nocturnal dyspnea. No orthopnea. No lightheadedness or dizziness. No syncopal episodes. Abdominal: No abdominal pain. No nausea, vomiting. No diarrhea. No constipation. No bloody or tarry stools. No loss of appetite. Genitourinary: No dysuria, increased frequency, urgency. No urinary retention. Musculoskeletal: No myalgias. No muscle weakness, no gait dysfunction, no frequent falls. No back pain. No neck pain. Integumentary: No wounds, no lesions. Neurologic: No aphasia. No facial droop. No change in mentation. No head injury. No headache. No paralysis. No paresthesia. Psychiatric: No depression. No anxiety. Endocrine: No abnormal blood sugars. PHYSICAL EXAMINATION Gen: This is a 39-year-old female. Patient is resting in bed and appears to be comfortable at rest on room air. HEENT: Head is atraumatic, normocephalic. Pupils equal, round. Sclerae is anicteric. NECK: Supple. No JVD. No lymphadenopathy. No thyromegaly. Oral mucous membranes are dry. LUNGS: Scattered rhonchi, crackles in the bases. No intercostal retractions. HEART: Regular rate and rhythm. No murmur. ABDOMEN: Soft. Bowel sounds are present. No masses. No tenderness. EXTREMITIES: No pedal edema. No calf tenderness. Dorsalis pedis palpable bilaterally. NEUROLOGICAL: Patient is awake, alert and oriented x3. Cranial nerves 2 through 12 are grossly intact. ASSESSMENT AND PLAN 1. Acute hypoxic respiratory failure secondary to acute Covid 19 pneumonia, MSSA pneumonia, has been on supportive care seen pulmonary still on O2 still on updraft treatment and worsening complication of pneumothorax require attention at this point. Continue oral prednisone increased to 10 mg daily. 2. Right sided pneumothorax requiring chest tube 11/06 and 11/08. Discontinue IV Dilaudid, continue only Percocet for pain control. Dumont discontinued. Maintain right-sided chest tube. 3. Acute exacerbation of mild intermittent bronchial asthma. Continue Ventolin inhaler 4 times daily as needed. 4. Recurrent depression and generalized anxiety disorder: She is on multiple medication between BuSpar, Abilify, Wellbutrin and Cymbalta 5. Primary immunodeficiency. Which made her prognosis much worse with a Covid 19. 6. Chronic anemia of chronic disease most likely due to history of bleeding ulcers and alcohol abuse. 7. Tobacco use and dependence including taping. 8. Daily alcohol use/abuse. Patient apparently has had no alcohol intake for 7 days. Monitor closely for DTs 9. Debility: Continue physical therapy. 10. Acute anemia secondary to sepsis without blood loss. S/p transfusion of 1 unit of packed RBCs. 11. Migraine headaches. Continue Fioricet as needed. Hold Inderal 60 mg daily. 12. Sepsis with MSSA bacteremia, POA. Continue Kafzol. 13. Moderate protein calorie malnutrition. Patient maintain on tube feedings 14. Gastroesophageal reflux disease with history of bleeding ulcers. Continue Protonix 40 mg daily and Carafate 1 g 4 times daily. 15. Tachycardia. Patient resumed on Inderal discontinue Lopressor. 16. Thrush. Patient started on nystatin. 17. DVT prophylaxis. Lovenox. DISCHARGE PLAN Subacute rehab possible to [facility] on Sunday. Impression and plan of care have been directed as dictated by the signing physician. Isabel Samayoa nurse practitioner acting as scribe for signing physician. Objective - Vital Signs Vital signs: Vital Signs Temp 98.1 F 11/25/20 03:51 Pulse 95 11/25/20 03:51 Resp 18 11/25/20 03:51 BP 93/61 11/25/20 03:51 Pulse Ox 99 11/25/20 03:51 Intake & Output 11/24/20 11/25/20 11/25/20 18:59 06:59 18:59 Intake Total 780 Balance 780 Weight 56.9 kg Intake: IV 240 Sodium Chloride 0.9% 1, 240 000 ml @ 20 mls/hr IV . Q24H SHERRON Rx#:[id number] Oral 540 Other: Voiding Method Bedpan Bedside Commode Bedpan # Voids 1 4 ABP, PAP, CO, CI - Last Documented Arterial Blood Pressure 119/75 - Labs CBC & Chem 7: 11/22/20 06:29 11/22/20 06:29 Labs: Abnormal Lab Results - Last 24 Hours (Table) 11/24/20 Range/Units 16:36 POC Glucose (mg/dL) 107 H (75-99) mg/dL
[2020-11-25] MEDS: MELATONIN 3 MG TABLET PO SCH (21:45)
[2020-11-26] MEDS: BENZOCAINE/MENTHOL LOZENG 1 EACH LOZENGE MUCOUS MEM PRN ×3 (02:31→14:32)
[2020-11-26] MEDS: oxyCODONE-APAP 5-325MG 1 EACH TAB PO PRN ×3 (03:56→16:12)
[2020-11-26] MEDS: KETOROLAC 15 MG/ML 1 ML VIAL IVP SCH ×4 (03:56→20:53)
[2020-11-26] MEDS: ZINC SULFATE 220 MG CAP PO SCH (07:29)
[2020-11-26] MEDS: predniSONE 10 MG TAB PO SCH (07:29)
[2020-11-26] MEDS: SUCRALFATE 1 GM TAB PO SCH ×4 (07:29→20:53)
[2020-11-26] MEDS: busPIRone HCl 10 MG TAB PO SCH ×2 (07:30→20:53)
[2020-11-26] MEDS: CHOLECALCIFEROL 25 MCG (1000 IU) TABLET PO SCH (07:30)
[2020-11-26] MEDS: ASCORBIC ACID 500 MG TAB PO SCH (07:30)
[2020-11-26] MEDS: ENOXAPARIN 40 MG/0.4 ML SYRINGE SQ SCH (07:30)
[2020-11-26] MEDS: buPROPion XL 150 MG TAB.ER.24H PO SCH (07:31)
[2020-11-26] MEDS: PANTOPRAZOLE 40 MG/10 ML VIAL IVP SCH ×2 (07:31→20:54)
[2020-11-26] MEDS: NYSTATIN 100,000 UNIT/ML SUSP 500,000 UNIT/5 ML CUP PO SCH ×4 (07:31→20:53)
[2020-11-26] MEDS: ARIPiprazole 5 MG TAB PO SCH (07:32)
[2020-11-26] MEDS: TOPIRAMATE 25 MG TAB PO SCH (07:33)
[2020-11-26] MEDS: PROPRANOLOL LA 60 MG CAP.SA.24H PO SCH (07:33)
[2020-11-26] MEDS: DULoxetine HCL 60 MG CAPSULE.DR PO SCH (07:33)
[2020-11-26] MEDS: TRIAMCINOLONE 0.1% CREAM 80 GM TUBE TOPICAL SCH ×2 (07:34→20:55)
[2020-11-26] MEDS: ALBUTEROL HFA INHALER INHALATION PRN ×3 (08:04→15:56)
--- NOTE | 2020-11-26 08:52 | XR ---
EXAMINATION TYPE: XR chest 1V portable DATE OF EXAM: 11/26/2020 COMPARISON: 11/25/2020 HISTORY: Shortness of breath TECHNIQUE: Single frontal view of the chest is obtained. FINDINGS: Right-sided chest tube seen with diffuse bilateral infiltrate and small right effusion. Garcia bcutaneous emphysema noted and there is stable approximate 5% right apical pneumothorax. Heart size m idline without displacement and normal in size. IMPRESSION: 1.Diffuse bilateral airspace space disease with small right effusion stable. 2. Approximate 5% right apical pneumothorax stable
--- NOTE | 2020-11-26 10:19 | P.PN ---
Subjective Progress Note Date: 11/26/20 Principal diagnosis: Acute hypoxic respiratory failure secondary to covid 19 pneumonia, and bilateral pneumothoraces secondary to barotrauma. The patient is seen today 11/20/2020 in follow-up on the regular medical floor. She is sitting up in a chair at the bedside. Awake and alert in no acute distress. Maintaining O2 saturations in the 90s on 4 L/m per nasal cannula. He is afebrile. Hemodynamically stable. She remains on cefepime, IV Solu-Medrol, Lovenox, vitamin supplements. Right-sided chest tube remains in place to wall suction. Leak is still present. Persistent right-sided pneumothorax. Chest tube was manipulated this morning by CT services for better positioning. She continues to work well the incentive spirometer. The patient is seen today 11/21/2020 in follow-up on the regular medical floor. Currently sitting up in bed. Awake and alert in no acute distress. Maintaining O2 saturations in the 90s on 2 L/m per nasal cannula. Chest x-ray revealing improved right pneumothorax with trace residual. Persistent moderate opacities. Chest tube remains in place. Leak is still present. On 11/22/2020 patient seen in follow-up on medical surgical floor she is sitting up in the chair, breathing comfortable, she remains on room air, and sometimes she applies her oxygen back on at 2 L, her pulse ox on room air is 96%, on 2 L her pulse ox 100%, she is awake and alert, oriented 3, itching questions appropriate, no altered mentation, she's had no fever or chills patient still has chest tube in place, in the right chest, today's chest x-ray shows slight interval increase in the size of right apical pneumothorax measuring at 15%, CT surgery is following, right-sided chest tube remains to wall suction. No worsening dyspnea, no worsening chest discomfort. She is working on incentive spirometer. Remains on IV Solu-Medrol 40 mg every 8 hours, which at this point we can switch to oral prednisone, she remains on vitamins, and Lovenox 30 mg by mouth twice daily. Today's labs have been reviewed, cytosis is improving, with a total, 13.5, hemoglobin is 9.1, electrolytes within normal limits, B1 is 25 creatinine 0.4, her last d-dimer on 11/17/2020 was 2.23 Patient was reevaluated today on 11/23/2020, remains on the regular medical floor, comfortable, in no distress, however she continues to have a right-sided chest tube in place, and she continues to have air leak. Continues to have right apical pneumothorax. Patient is on 2 L nasal cannula, and her O2 sats is 98%. Continues to have a left-sided subclavian triple-lumen catheter which I have ordered to be discontinued. Thoracic surgery is still forming on her persistent right-sided pneumothorax, she may eventually require surgical intervention. Based on the chest x-ray, the chest tube seems to be in the proper position, nonetheless she continues to have some air leak and apical pneumothorax. Reevaluated today on 11/24/2020, patient is on 2 L nasal cannula, in no distress, continues to have significant air leak in her right sided chest tube. She was told by surgery that in the next 3 more days, if she continues to have an air leak, surgical intervention would be considered. In the meantime the patient is hemodynamically stable, she is in no distress. Chest x-ray today continues to show at least a 30% right-sided pneumothorax in spite of the chest tube in place. Patient was reevaluated today on 11/25/2020, remains on 2 L nasal cannula, she was seen by surgery again, she continues to have air leak in the right-sided chest tube Pleur-evac. Apparently Dr. Orozco decided to place another chest tube today, and this was done at a higher level and anteriorly. Follow-up chest x- ray continues to show a small right-sided apical pneumothorax. Clinically the patient is about the same. Reevaluated today on 12/06/2020, patient is doing relatively well, off oxygen, sh e is maintaining O2 saturation of 94% on room air. Her chest tube was taken off suction patient has no air leak, and her chest x-ray today showed less than 5% right apical pneumothorax which has been stable. Continues to show bilateral airspace disease related to her most recent covid 19 pneumonia. Again the patient now is doing well, her chest tube is off suction, and I don't see an air leak, the plan is to possibly remove the chest tube by tomorrow. Her all chest tube has been removed. Objective - Vital Signs Vital signs: Vital Signs Temp 98.0 F 11/26/20 05:33 Pulse 91 11/26/20 05:33 Resp 19 11/25/20 22:00 BP 101/58 11/26/20 05:33 Pulse Ox 94 L 11/26/20 05:33 Intake & Output 11/25/20 11/26/20 11/26/20 18:59 06:59 18:59 Weight 57 kg Other: Voiding Method Bedside Commode Bedpan # Voids 3 3 ABP, PAP, CO, CI - Last Documented Arterial Blood Pressure 119/75 - Exam Physical Exam revealed a 39-year-old female in no distress. On room air, Head: Atraumatic normocephalic. HEENT:[Neck is supple.] [No neck masses.] [No thyromegaly.] [No JVD.] Left subclavian triple-lumen catheter is noted. Chest: 1 right-sided chest tube is noted, off suction, minimal crackles at the bases no rhonchi and no wheezes, no air leak is noted. Cardiac Exam: [Normal S1 and S2, no S3 gallop, no murmur.] Abdomen: [Soft, nontender, no megaly, no rebound, no guarding, normal bowel sounds.] Extremities: [No clubbing, no edema, no cyanosis.] Neurological Exam: [No focal neurologic deficit.] Alert oriented 3. Psychiatric: Normal mood affect and normal mental status examination. HEENT: No rashes Musculoskeletal: No deformities noted limitation range of motion - Labs CBC & Chem 7: 11/22/20 06:29 11/22/20 06:29 Assessment and Plan Assessment: Impression: Acute hypoxic respiratory failure secondary to covid 19 pneumonia, requiring intubation and mechanical ventilation. Patient did receive toci Acute bilateral pneumothoraces requiring bilateral chest tube placement felt to be related to barotrauma, expected. MSSA bacteremia and complicated parapneumonic effusion with MSSA infection, no empyema. Tobacco dependence syndrome. Generalized anxiety disorder History of immune deficiency disorder Irritable bowel syndrome Migraine cephalgia Fibromyalgia Status post right-sided tube thoracostomy 2 for barotrauma the last chest tube was placed today on 11/25/[address] Nolasco, the initial one was placed by Dr. Davison. The initial one was already removed, patient has only one right-sided chest tube in place which was placed by Dr. Nolasco. Recommendation: Continue chest tube off suction Continue present medications Decrease prednisone to 5 mg daily Thoracic surgery to continue to follow on the right-sided pneumothorax. Possibly remove the right-sided chest tube tomorrow Once her chest tubes are removed, patient could be discharged home. We'll continue to follow. Time with Patient: Less than 30
--- NOTE | 2020-11-26 11:19 | P.PN ---
Subjective Progress Note Date: 11/26/20 Principal diagnosis: Persistent right pneumothorax. Previous medical history of GI bleed secondary to history of 2 nonbleeding antral ulcers requiring transfusion of 2 units packed red blood cells, asthma, irritable bowel syndrome, anxiety, depression, bipolar, post traumatic stress disorder, fibromyalgia, chronic ongoing tobacco, draping use and EtOH abuse. The patient was seen and examined this morning on the fourth floor medical surgical unit, chest xray reviewed with Dr. Muñoz. She is sitting up in bed in no acute distress. Denies pain except for minimal pain to her chest tube insertion site, states shortness of breath has continued to improve. Currently on room air with oxygen saturations in the mid 90s. Continues to have hoarse voice. Right lateral pleural tube discontinued yesterday, right anterior apical chest tube placed yesterday, remains present to wall suction, no air leak present. No other new concerns. Objective - Vital Signs Vital signs: Vital Signs Temp 98.1 F 11/26/20 10:00 Pulse 96 11/26/20 10:00 Resp 16 11/26/20 10:00 BP 93/60 11/26/20 10:00 Pulse Ox 93 L 11/26/20 10:00 Intake & Output 11/25/20 11/26/20 11/26/20 18:59 06:59 18:59 Weight 57 kg Other: Voiding Method Bedside Commode Bedpan # Voids 3 3 ABP, PAP, CO, CI - Last Documented Arterial Blood Pressure 119/75 - Exam CONSTITUTIONAL: Appears comfortable, cooperative, no acute distress RESPIRATORY: Lungs sounds diminished bilaterally. Respirations even, nonlabored. Currently on room air with oxygen saturation 94%. Able to achieve 1000 mL on incentive spirometry. Strong cough. CARDIOVASCULAR: S1, S2 present. Tachy but regular rate and rhythm. Palpable peripheral pulses bilaterally. No edema present. No calf pain or tenderness noted. GASTROINTESTINAL: Abdomen soft, nontender, nondistended. Active bowel sounds present 4 quadrants. Tolerating diet. GENITOURINARY: Continues to void INTEGUMENTARY: Skin is warm and dry with evidence of good perfusion. NEUROLOGIC: Cranial nerves II through XII intact MUSKULOSKELETAL: Able to move all extremities, strength equal bilaterally, gait normal PSYCHIATRIC: Alert and oriented to person place and time, appropriate affect, intact judgment and insight INVASIVE LINES AND TUBES: Right pleural chest tube present to wall suction, no air leak present. - Allied health notes Allied health notes reviewed: nursing - Labs CBC & Chem 7: 11/22/20 06:29 11/22/20 06:29 - Imaging and Cardiology Chest x-ray: report reviewed, image reviewed Assessment and Plan Assessment: 1. Persistent tiny right pneumothorax despite right pleural chest tube being in place 2. Acute hypoxic respiratory failure secondary to acute COVID 19 pneumonia 3. MSSA bacteremia, sputum, pleural fluid 4. History of anemia with nonbleeding antral ulcers, status post transfusion of 1 unit of packed red blood cells on admission 5. Chronic ongoing tobacco dependence and vaping use 6. Irritable bowel syndrome 7. History of fibromyalgia 8. History of asthma 9. History of bipolar disorder 10. History of ADHD 11. History of depression 12. History of EtOH abuse, drinks 1 pint of tequila daily Plan: 1. Right anterior apical chest tube placed to waterseal. If remains stable without air leak will discontinue tomorrow morning. 2. No surgical intervention is warranted at this time. 3. Encourage use of her incentive spirometry 10 times every hour while awake. 4. Bronchodilators, steroids per pulmonology 5. Continue to monitor her daily chest x-rays. 6. More recommendations to follow based on patient's clinical course. Time with Patient: Greater than 30
[2020-11-26] MEDS: SODIUM CHLORIDE 0.9% 1,000 ML IV SCH (11:54)
--- NOTE | 2020-11-26 14:02 | P.PN ---
Subjective Progress Note Date: 11/26/20 HISTORY OF PRESENT ILLNESS This is a 39-year-old female patient of Dr. Gonzalez with past medical history of GI bleed in 2008, July 2020 was admitted for GI bleed secondary to 2 no nbleeding antral ulcers requiring transfusion 2 units packed RBCs, tobacco use, alcohol abuse, recurrent depression, generalized anxiety disorder. Patient was diagnosed with COVID-19 on October 30. She complains of increasing shortness of breath, cough, congestion, fever and chills and hoarseness. She continued to worsen significantly over the past 2 days. She also complains of bloody sputum production. Patient came into [facility] emergency center for evaluation. Temperature 98.3, heart rate 102, respiratory rate 40, blood pressure 95/64, pulse ox 71%. EKG was a sinus rhythm no acute ST elevation. W BC 9.4, hemoglobin 8.6, platelet count 284. Sodium 135, potassium 2.8, chloride 102, CO2 21, BUN 19 creatinine 0.88. Blood sugar 92. AST 71, ALT 24, alkaline phosphatase 264 [place] phosphatase 264, LDH 2067, CA reactive protein 320.8. Lactic acid 3.1. CT angiogram of the chest reveals no evidence pulmonary embolism. Severe pulmonary interstitial and airspace edema. Chest x-ray reveals pulmonary interstitial pneumonia worse than recent exam. Some airspace component. Patient is status post 2 L of IV fluids, potassium replacement, Dilaudid, patient seen by pulmonary medicine and started on Tocilizumab. 11/05: Patient remains in the intensive care unit. She is a nonrebreather mask and AorVp and can maintain a pulse ox in the 90s. If she removes these, patient follows less than 70s. She is very anxious today and has many questions. She does have large number of psychiatric medications which have been resumed. We will also add and Xanax twice daily as needed. She has been afebrile, heart rate 89, blood pressure 116/79, pulse ox 95%. Repeat blood work reveals WBC 11.8, hemoglobin 7.7, platelet count 243. D-dimer 1.95. Sodium 135, electrolyt es otherwise normal, BUN 18 creatinine 0.45. Blood sugars running between 117- 129. AST 48, ALT 18, alkaline phosphatase 218, LDH 2243. C-reactive protein 254. Patient had 2 blood cultures, one is showing no growth at 24 hours and the second obtained at 2240 showing gram-positive cocci. She was started on vancomycin. 11/06: Patient remains in ICU, still on a BiPAP treatments,, continuously, terri barber did not have any meals for the past 72 hours secondary to hypoxemia and air hunger without the reading device. Patient has not slept well at all, cytokinin markers are elevated, blood culture growing Staphylococcus from specimen collected November 03 are pending sensitivity. Patient currently is on IV cefazolin, IV vancomycin, followed by infectious disease. So Medrol 60 mg every 6 hours, most of her oral medications cannot be complied upon secondary to hypoxemia event removed briefly. Hemoglobin at 7.2, blood gas shows pCO2 54, PaO2 of 67, 7.39 pH. Double basic count of under 10, creatinine of 0.5, LDH 1845, alkaline phosphatase 194. Albumin low at 2.6, blood pressure stable,Heart rate of 114, blood pressure of 135/90. Pulse ox 85-86 at BiPAP treatments. 11/07 yesterday afternoon, patient required placement of right chest tube secondary to spontaneous pneumothorax placed by the ER doctor,, patient has worsening respiratory status, and was intubated by the ER physician currently with tidal volume of 40, PEEP of 10, assist control rate of 24, FiO2 of 80%. There is residual small pneumothorax right side, there is a left subclavian triple-lumen placed by Dr. Harrington today. There is consult for nutrition, has an OG tube, for which feedings would be started once completed. Chest x-ray shows bilateral diffuse infiltrates, creatinine of 0.4, LDH of 1630, CRP of 36 platelet count 132, hemoglobin 7.3 11/08: Patient remains in the intensive care unit, intubated and on mechanical ventilation with FiO2 100%, tidal volume 400 and PEEP of 10. Patient is currently on sedation. Repeat chest x-ray today reveals increase in size of right-sided pneumothorax since previous measuring of 3.5 cm today compared to 1.2 cm yesterday. Severe interstitial infiltrates throughout the lungs bilaterally slightly increased from previous. A second right-sided chest tube was placed today by Dr. Davison. Repeat blood work reveals WBC 5.2, hemoglobin 6.2, platelet count 133. Sodium 141, potassium 3.5, chloride 107, CO2 35, BUN 24 and creatinine 0.46. Blood sugar 132. Alkaline phosphatase 154. D-dimer 6.35. Patient is ordered for transfusion 1 unit packed RBCs today. Blood culture is MSSA and patient is on Ancef 2 g every 8 hours. Pleural fluid culture in progress. Patient has been afebrile, heart rate low 100s, respiratory rate 27, blood pressure 135/93, pulse ox 96%. Patient will be started on tube feedings today. 11/09: She remains intubated and on mechanical ventilation. She is on both Nimbex and Propofol. She remains intubated and on mechanical ventilation with tidal volume 400, FiO2 65 and PEEP of 10. Repeat chest x-ray reveals improving right apical pneumothorax measuring less than 5%. Stable bilateral diffuse infiltrates. WBC 8, hemoglobin 7.8 status post 1 unit of packed RBCs. Platelet count 123. Sodium 141, potassium 3.9, chloride 105, CO2 37. BUN 28 creatinine 0.51. Blood sugar 142. Inflammatory markers are improving with d-dimer 7.09, fibrinogen 159, LDH 1249, C-reactive protein 8.3, CK 23. Patient is on Kefzol for antibiotics. She remains with right-sided chest tube. She has been a febrile, heart rate 80, blood pressure 116/78, pulse ox 92%. Patient is not requiring vasopressors. 11/10: Initial chest x-ray this morning revealed interval development of 50% left-sided pneumothorax. Patient is status post chest tube placement on the left by Dr. Davison. Repeat chest x-ray revealed bilateral apical pneumothoraces measuring less than 5. Stable on the right improved on the left. Diffuse bilateral pulmonary parenchymal disease stable. Patient remains intubated and on mechanical ventilation. She is now off Nimbex. Tidal volume 500, FiO2 60% and PEEP of 8. Patient is on tube feedings. Repeat blood work reveals WBC 7.5, hemoglobin 7.7, platelet count 126. Sodium 139, potassium 3.3 and was replaced, chloride 98, CO2 38, BUN 28 creatinine 0.41. Cultures are running between 134-150. D-dimer 0.05, LDH 1338, CK 65, C-reactive protein less than 5. Sputum culture is in progress. Blood cultures no growth at 24 hours. All previous blood cultures are showing no growth. IgG is low at 471. Request a nurse contact Dr. Davison about IVIG infusion. 11/11: She remains in the intensive care unit, intubated and on mechanical ventilation with tidal volume 400, FiO2 50% and PEEP of 6. Patient now has bilateral chest tubes in place for bilateral pneumothoraces with right-sided air leak. Weaning will be attempted today. She has been afebrile, heart rate 95, blood pressure 148/81, pulse ox 96%. Repeat blood work reveals W BC 5.8, hemoglobin 10.3, platelet count 101. D-dimer 6.03. C-reactive protein less than 5, CK 44. LDH 1234. Sodium 133, potassium 3.8, chloride 94, CO2 38, BUN 22 and creatinine 0.32. Blood culture, sputum culture, pleural fluid culture also positive for MSSA. Patient is covered with Kefzol. 11/12: Patient remains in intensive care unit, intubated and on mechanical ventilation with tidal volume 400, FiO2 50% and PEEP of 6. She failed weaning trial yesterday and she was desatting and back on propofol as well as Precedex and fentanyl drips were added. Patient has been afebrile, heart rate 86, blood pressure 134/68, pulse ox 90%, respiratory rate 24. Repeat blood work reveals WBC 17.3, hemoglobin 9, platelets 164. Sodium 134, potassium 3.6, chloride 97, CO2 30, BUN 19 and creatinine 0.33. Blood sugars running between 127 and 141. Alkaline phosphatase 149. LDH 1437. C-reactive protein 6.4. Repeat chest x-ray reveals slight interval increase in the right-sided pneumothorax compared to prior exam. Correlate for pneumonia, edema or ARDS. She remains with bilateral chest tubes in place. Prognosis remains guarded. 11/13: Patient remains in the intensive care unit. She has been successfully extubated this morning and is on 15 L high flow nasal cannula. She has been afebrile, heart rate in the 80s, blood pressure 109/75. Repeat blood work reveals W BC 10.7, hemoglobin 7.3, platelet count 116. D-dimer 5.54. Sodium 134, potassium 4.0, chloride 97, CO2 33, BUN 20, creatinine 0.29. Blood sugars running between 119 and 143. LDH 1057, CK 22, C-reactive protein less than 5. Chest x-ray reveals small right apical pneumothorax slightly smaller. Right chest tube. No change in patchy airspace opacities in the lung right greater than left. Left-sided chest tube unchanged in position and resolution of left small apical pneumothorax. The patient's mental status is not back to baseline. She is somewhat confused. 11/14: Patient remains in the intensive care unit. PO 80s on NRB. Patient encouraged to keep mask on face. She has been afebrile, HR 80s - 90s, RR 28, BP 129/95. Repeat blood work reveals WBC 19.1, HGB 8.9, PLT 152. Sodium 134, K 3.7, Chloride 94, CO2 31. BUN 17, Creat 0.26. Ferritin 68.9. AST 49, ALT 17, AP149. LDH 2274. CK 61, CRP 29.4. CXR reveals stable diffuse infiltrates and small right apical pheumothorax. 11/15: Patient remains in the intensive care unit. Her breathing status appears to be stable. Pulse ox is running anywhere between 86 and 100% on 15 L high flow nasal cannula. She is complaining of right-sided pain in her chest secondary to the chest tube. Patient does have Dilaudid which she is receiving every 3 hours and we will add in [place]. The left-sided chest tube was removed yesterday. She has been afebrile, heart rate in the 90s, blood pressure 116/74. Chest x-ray reveals similar findings to prior. WBC 14.0, hemoglobin 8.8, platelet count 171. D-dimer 3.61. Sodium 134, potassium 4.3, chloride 96, CO2 33, BUN 25 and creatinine 0.34. Blood sugars are controlled. Alkaline phosphatase 128. LDH 1634. CK 49. C-reactive protein 21.8. No plan to palpation of the intensive care unit today. We'll plan for Seymour catheter to be removed. 11/16: Patient remains in intensive care unit. She is now on high flow nasal cannula at 10 L. She is having some sinus tachycardia especially with eating breakfast this morning. She is on Dilaudid IV every 3 hours and [place] was added yesterday and will encourage to use [place] today and try and wean off Dilaudid. She continues to have pain at the chest tube site. Chest x-ray this morning reveals no significant interval change. Right-sided pneumothorax is likely decreased. CTA of the chest reveals no evidence of pulmonary embolism. Right- sided pneumothorax. Right chest tube in good position in the major fissure. 11/17:Patient remains in the intensive care unit. She is tachycardic up to 137 this morning and pulmonary medicine started her on metoprolol. She's been afebrile, respiratory rate in the 20s, blood pressure 117/83, pulse ox is 88-97% on 8 L nasal cannula high flow. Repeat blood work reveals to be BBC 13, hemoglobin 8.6, platelet count 181. D-dimer 2.23. Sodium 135. Potassium 4.2, chloride 97, CO2 31, BUN 27 creatinine 0.34. Blood sugars running between 93 and 141. Liver function tests are normal. LDH 1096. CK 24, CK 5.1. Repeat chest x-ray reveals similar findings, correlate for pneumonia. Right-sided chest tube remains in place which may be discontinued later today. Patient is complaining of significant pain to the right chest tube site and using Dilaudid around the clock. She states and [place] does not help. BuSpar changed to scheduled twice daily. Patient has been evaluated by Dr. Faith and not appropriate for inpatient rehab. 11/18: A she seen today on the [facility] floor. Patient was complaining of migraine headaches and Fioricet was resumed. Patient is complaining of feeling so weak that she cannot move. She remains with chest tube in place. Breathing status seems to be stable. She is pulse ox seen in the 90s at 5 L high flow nasal cannula. Patient has been afebrile. Heart rate 99, blood pressure 126/80, pulse ox 97% on high flow 5 L. Repeat chest x-ray reveals stable findings. WBC 14.2, hemoglobin 9.9, sodium 136, potassium 4.6, creatinine 0.37. Patient is on cefepime as well as Lovenox, IV Solu-Medrol and supplements. 11/19: Patient is complaining of continued pain for which [place] changed to Percocet. She has been receiving Dilaudid around the clock. She remains with chest tube in place. Pulse ox is been 91-98% on 4 L nasal cannula. She has been afebrile, heart rate 96 but episodes of tachycardia with movement, blood pressure 99/64. Blood sugars are running between 88 and 149. Discussed discharge planning which will be to [facility] or [facility] most likely on Sunday. 11/20: Patient had more leak yesterday with pneumothorax require chest tube without adjustment of her chest tube felt much comfortable finally continue current management and limited physical therapy at this point is still the plan probably for subacute rehab. 11/21: Patient is feeling much better today her right-sided pneumothorax and pleural effusion are improved still have chest tube in C loss or drainage. Pneumonitis has improved significantly, patient still losing weight, as well as under control, still having the plan to go to subacute rehab either on Sunday or Sunday. 11/22:patient has been afebrile, heart rate 84, blood pressure 99/61, pulse ox 95% on room air. Blood sugars are running between 103 and 161. Sputum culture, pleural fluid culture, blood culture are positive for MSSA. Repeat blood culture is no grwoth at 144 hours. Patient is not currently on any antibiotics. She is on Solu-Medrol 60 mg IV every 6 hours. She was reassessed by Dr. Faith and appears to be not a candidate for inpatient rehab. Repeat chest x-ray reveals patchy bilateral infiltrates with interval increase in size of right apical pneumothorax measuring 15%. CTS is planning to continue right pleural chest tube. The Dilaudid will be discontinued. Solu-Medrol decreased to 40 mg IV every 8 hours. 11/23: Patient remains afebrile, heart rate 101, blood pressure 109/68, pulse ox 90-96% on room air. Repeat chest x-ray reveals slight improvement of right apical pneumothorax measuring 5-10%. Diffuse bilateral patchy infiltrates stable. Yesterday, IV Solu-Medrol as transitioned to oral prednisone and Lovenox decreased to 40 mg daily. Repeat inflammatory markers reveal d-dimer of 2.27. Blood sugars are running between 7112. Patient will be started on nystatin for thrush. Heart rate has been in the 140s and we will discontinue metoprolol place patient back on her Inderal. She is also asking for Cepacol lozenges, Zyrtec and Flonase. Patient encouraged to be up in a chair. Await further input from cardiothoracic surgery. Discharge plan is for [facility]. Social work is following closely. 11/24: Patient has been afebrile, heart rate 92, blood pressure 96/55, pulse ox 96% on 2 L. Heart rate was better controlled through the night running 80s and 90s. Repeat chest x-ray reveals interval increase in size of the pneumothorax measuring 15%. Diffuse bilateral patchy infiltrates stable. No immediate plan for removal of chest tube by cardiothoracic surgery. Patient is complaining of pain and requesting that her pain medications be increased. Patient is currently on [place] and Percocet which she should not be on both. [place] will be discontinued. Patient is also complaining of ear pain and examination showed no acute findings. Patient is complaining of hoarse voice. 11/25: Patient has been afebrile, heart rate 95, blood pressure 93/61, pulse ox 99% on room air. Sugars running between 89 and 107 and complete cbg discontinued. She'll chest x-ray this morning revealed right-sided pneumothorax persists may slightly smaller in size with apical pleural distance of 1.9 cm versus 2.7 cm previously. Interstitial and alveolar infiltrates persist throughout both lung eng with interval progression suggested. A new right-sided chest tube was place in the right anterior chest wall. Repeat CXR reveals second right-sided chest tube inserted with decreasing size of right- sided pneumothorax. Lateral component to the pneumothorax has resolved and apical component now at 8 mm versus 2 cm. Continued interstitial infiltrates a nd patchy peripheral mid and lower lung opacities. Patient states her pain is better today. She still has the right lateral pleural chest tube in place. Portal was started by cardiothoracic surgery. Telemetry will be discontinued. Prednisone decreased to 10 mg daily by pulmonary medicine. Discharge plan remains to go to [facility] for subacute rehab. 11/26: Patient has been afebrile, heart rate 91, blood pressure 101/58, pulse ox 94% on room air. Sugars are running between 89 and 116. We had discontinued CBGs several days ago. Repeat chest x-ray reveals diffuse bilateral airspace disease with small right effusion stable. 5% right apical pneumothorax stable. Cardiothoracic surgery has taken patient off suction and she is currently having drainage. Plan is to clamp chest tube tomorrow and possible removal tomorrow. Prednisone decreased to 5 mg daily. REVIEW OF SYSTEMS Constitutional: No fever, no chills, no night sweats. No weight change. Reports weakness, Reports fatigue. No daytime sleepiness. EENT: Denies headache. No blurred vision or double vision, no loss of vision. No loss of Hearing, no ringing in the ears, no dizziness. No nasal drainage or congestion. No epistaxis. Reports hoarseness. No sore throat. Lungs: Reports shortness of breath, Reports rare cough, no sputum production. No wheezing. Cardiovascular: Reports chest wall pain improved, no lower extremity edema. No palpitations. No paroxysmal nocturnal dyspnea. No orthopnea. No lightheadedness or dizziness. No syncopal episodes. Abdominal: No abdominal pain. No nausea, vomiting. No diarrhea. No constipation. No bloody or tarry stools. No loss of appetite. Genitourinary: No dysuria, increased frequency, urgency. No urinary retention. Musculoskeletal: No myalgias. No muscle weakness, no gait dysfunction, no frequent falls. No back pain. No neck pain. Integumentary: No wounds, no lesions. Neurologic: No aphasia. No facial droop. No change in mentation. No head injury. No headache. No paralysis. No paresthesia. Psychiatric: No depression. No anxiety. Endocrine: No abnormal blood sugars. PHYSICAL EXAMINATION Gen: This is a 39-year-old female. Patient is resting in bed and appears to be comfortable at rest on room air. HEENT: Head is atraumatic, normocephalic. Pupils equal, round. Sclerae is anicte manuel. NECK: Supple. No JVD. No lymphadenopathy. No thyromegaly. Oral mucous membranes are dry. LUNGS: Scattered rhonchi, crackles in the bases. No intercostal retractions. Right anterior chest tube. HEART: Regular rate and rhythm. No murmur. ABDOMEN: Soft. Bowel sounds are present. No masses. No tenderness. EXTREMITIES: No pedal edema. No calf tenderness. Dorsalis pedis palpable bilaterally. NEUROLOGICAL: Patient is awake, alert and oriented x3. Cranial nerves 2 through 12 are grossly intact. ASSESSMENT AND PLAN 1. Acute hypoxic respiratory failure secondary to acute Covid 19 pneumonia, MSSA pneumonia, has been on supportive care seen pulmonary, continue updraft treatment and worsening complication of pneumothorax require attention at this point. Continue oral prednisone decreased to 5 mg daily. 2. Right sided pneumothorax requiring chest tube 11/06, 11/08, 11/25. Discontinue IV Dilaudid, continue only Percocet for pain control. [place] discontinued. Possible removal of right-sided chest tube tomorrow. 3. Acute exacerbation of mild intermittent bronchial asthma. Continue Ventolin inhaler 4 times daily as needed. 4. Recurrent depression and generalized anxiety disorder: She is on multiple medication between BuSpar, Abilify, Wellbutrin and Cymbalta 5. Primary immunodeficiency, stable. 6. Chronic anemia of chronic disease most likely due to history of bleeding ulcers and alcohol abuse. 7. Tobacco use and dependence including vaping. 8. Daily alcohol use/abuse. Stable. 9. Debility: Continue physical therapy. 10. Acute anemia secondary to sepsis without blood loss. S/p transfusion of 1 unit of packed RBCs. 11. Migraine headaches. Continue Fioricet as needed. Continue Inderal 60 mg daily. 12. Sepsis with MSSA bacteremia, POA. 13. Moderate protein calorie malnutrition. 14. Gastroesophageal reflux disease with history of bleeding ulcers. Continue Protonix 40 mg twice daily and Carafate 1 g 4 times daily. 15. Tachycardia. Patient resumed on Inderal, discontinue Lopressor. 16. Thrush. Patient started on nystatin. 17. DVT prophylaxis. Lovenox. DISCHARGE PLAN Subacute rehab possible to [facility] on Sunday. Impression and plan of care have been directed as dictated by the signing physician. Isabel Samayoa nurse practitioner acting as scribe for signing physician. Objective - Vital Signs Vital signs: Vital Signs Temp 98.0 F 11/26/20 05:33 Pulse 91 11/26/20 05:33 Resp 19 11/25/20 22:00 BP 101/58 11/26/20 05:33 Pulse Ox 94 L 11/26/20 05:33 Intake & Output 11/25/20 11/26/20 11/26/20 18:59 06:59 18:59 Weight 57 kg Other: # Voids 3 3 ABP, PAP, CO, CI - Last Documented Arterial Blood Pressure 119/75 - Labs CBC & Chem 7: 11/22/20 06:29 11/22/20 06:29
[2020-11-26] MEDS: MELATONIN 3 MG TABLET PO SCH (20:53)
[2020-11-27] MEDS: oxyCODONE-APAP 5-325MG 1 EACH TAB PO PRN ×4 (00:20→20:16)
[2020-11-27] MEDS: BENZOCAINE/MENTHOL LOZENG 1 EACH LOZENGE MUCOUS MEM PRN ×5 (00:30→20:17)
[2020-11-27] MEDS: KETOROLAC 15 MG/ML 1 ML VIAL IVP SCH ×4 (03:13→21:46)
[2020-11-27] MEDS: ARIPiprazole 5 MG TAB PO SCH (07:21)
[2020-11-27] MEDS: buPROPion XL 150 MG TAB.ER.24H PO SCH (07:22)
[2020-11-27] MEDS: predniSONE 10 MG TAB PO SCH (07:22)
[2020-11-27] MEDS: ENOXAPARIN 40 MG/0.4 ML SYRINGE SQ SCH (07:22)
[2020-11-27] MEDS: PANTOPRAZOLE 40 MG/10 ML VIAL IVP SCH ×2 (07:22→20:16)
[2020-11-27] MEDS: NYSTATIN 100,000 UNIT/ML SUSP 500,000 UNIT/5 ML CUP PO SCH ×4 (07:22→20:21)
[2020-11-27] MEDS: ASCORBIC ACID 500 MG TAB PO SCH (07:23)
[2020-11-27] MEDS: PROPRANOLOL LA 60 MG CAP.SA.24H PO SCH (07:23)
[2020-11-27] MEDS: CHOLECALCIFEROL 25 MCG (1000 IU) TABLET PO SCH (07:23)
[2020-11-27] MEDS: SUCRALFATE 1 GM TAB PO SCH ×4 (07:23→20:16)
[2020-11-27] MEDS: TOPIRAMATE 25 MG TAB PO SCH (07:23)
[2020-11-27] MEDS: busPIRone HCl 10 MG TAB PO SCH ×2 (07:23→20:16)
[2020-11-27] MEDS: ZINC SULFATE 220 MG CAP PO SCH (07:24)
[2020-11-27] MEDS: TRIAMCINOLONE 0.1% CREAM 80 GM TUBE TOPICAL SCH ×2 (07:24→20:20)
[2020-11-27] MEDS: DULoxetine HCL 60 MG CAPSULE.DR PO SCH (07:24)
--- NOTE | 2020-11-27 07:37 | XR ---
EXAMINATION TYPE: XR chest 1V portable DATE OF EXAM: 11/27/2020 COMPARISON: 11/26/2020 INDICATION: Pneumothorax TECHNIQUE: Single frontal view of the chest is obtained. FINDINGS: The heart size is normal. The pulmonary vasculature is normal. Diffuse increased lung markings are present bilaterally. Right-sided chest tube is present. There is a right apical pneumothorax slightly larger over the inte rval. Subcutaneous emphysema is present on the right. IMPRESSION: 1. Increasing small right apical pneumothorax. 2. Diffuse increased lung markings bilaterally
[2020-11-27] MEDS: ALBUTEROL HFA INHALER INHALATION PRN ×3 (08:14→17:01)
--- NOTE | 2020-11-27 09:00 | P.PN ---
Subjective Progress Note Date: 11/27/20 Principal diagnosis: Persistent right pneumothorax. Previous medical history of GI bleed secondary to history of 2 nonbleeding antral ulcers requiring transfusion of 2 units packed red blood cells, asthma, irritable bowel syndrome, anxiety, depression, bipolar, post traumatic stress disorder, fibromyalgia, chronic ongoing tobacco, draping use and EtOH abuse. The patient was seen and examined this morning on the fourth floor medical surgical unit. She is sitting up in bed in no acute distress. Denies pain except for minimal pain to her chest tube insertion site, states shortness of breath has continued to improve. Currently on room air with oxygen saturations in the mid 90s. Continues to have hoarse voice. Right anterior apical chest tube remains present to waterseal, no air leak present. Chest x-ray this morning shows slight increase in right-sided pneumothorax. No other new concerns. Objective - Vital Signs Vital signs: Vital Signs Temp 98.2 F 11/27/20 06:00 Pulse 80 11/27/20 06:00 Resp 19 11/27/20 06:00 BP 96/59 11/27/20 06:00 Pulse Ox 95 11/27/20 06:00 Intake & Output 11/26/20 11/27/20 11/27/20 18:59 06:59 18:59 Output Total 70 25 Balance -70 -25 Weight 57.8 kg Output: Chest Tube Drainage 70 25 Chest Tube Right 70 25 Other: Voiding Method Bedside Commode Bedside Commode Bedpan Bedpan # Voids 5 ABP, PAP, CO, CI - Last Documented Arterial Blood Pressure 119/75 - Exam CONSTITUTIONAL: Appears comfortable, cooperative, no acute distress RESPIRATORY: Lungs sounds diminished bilaterally. Respirations even, nonlabored. Currently on room air with oxygen saturation 95%. Able to achieve 1000 mL on incentive spirometry. Strong cough. CARDIOVASCULAR: S1, S2 present. Regular rate and rhythm. Palpable peripheral pulses bilaterally. No edema present. No calf pain or tenderness noted. GASTROINTESTINAL: Abdomen soft, nontender, nondistended. Active bowel sounds p resent 4 quadrants. Tolerating diet. GENITOURINARY: Continues to void INTEGUMENTARY: Skin is warm and dry with evidence of good perfusion. NEUROLOGIC: Cranial nerves II through XII intact MUSKULOSKELETAL: Able to move all extremities, strength equal bilaterally, gait normal PSYCHIATRIC: Alert and oriented to person place and time, appropriate affect, intact judgment and insight INVASIVE LINES AND TUBES: Right pleural chest tube present to waterseal, no air leak present. - Allied health notes Allied health notes reviewed: nursing - Labs CBC & Chem 7: 11/22/20 06:29 11/22/20 06:29 - Imaging and Cardiology Chest x-ray: report reviewed, image reviewed Assessment and Plan Assessment: 1. Persistent tiny right pneumothorax despite right pleural chest tube being in place 2. Acute hypoxic respiratory failure secondary to acute COVID 19 pneumonia 3. MSSA bacteremia, sputum, pleural fluid 4. History of anemia with nonbleeding antral ulcers, status post transfusion of 1 unit of packed red blood cells on admission 5. Chronic ongoing tobacco dependence and vaping use 6. Irritable bowel syndrome 7. History of fibromyalgia 8. History of asthma 9. History of bipolar disorder 10. History of ADHD 11. History of depression 12. History of EtOH abuse, drinks 1 pint of tequila daily Plan: 1. Right anterior apical chest tube placed to waterseal. Will clamp for 2 hours then re-evaluate for air leak 2. No surgical intervention is warranted at this time. 3. Encourage use of her incentive spirometry 10 times every hour while awake. 4. Bronchodilators, steroids per pulmonology 5. Continue to monitor her daily chest x-rays. 6. More recommendations to follow based on patient's clinical course. Time with Patient: Greater than 30
--- NOTE | 2020-11-27 11:01 | P.PN ---
Subjective Progress Note Date: 11/27/20 HISTORY OF PRESENT ILLNESS This is a 39-year-old female patient of Dr. Gonzalez with past medical history of GI bleed in 2008, July 2020 was admitted for GI bleed secondary to 2 no nbleeding antral ulcers requiring transfusion 2 units packed RBCs, tobacco use, alcohol abuse, recurrent depression, generalized anxiety disorder. Patient was diagnosed with COVID-19 on October 30. She complains of increasing shortness of breath, cough, congestion, fever and chills and hoarseness. She continued to worsen significantly over the past 2 days. She also complains of bloody sputum production. Patient came into [facility] emergency center for evaluation. Temperature 98.3, heart rate 102, respiratory rate 40, blood pressure 95/64, pulse ox 71%. EKG was a sinus rhythm no acute ST elevation. W BC 9.4, hemoglobin 8.6, platelet count 284. Sodium 135, potassium 2.8, chloride 102, CO2 21, BUN 19 creatinine 0.88. Blood sugar 92. AST 71, ALT 24, alkaline phosphatase 264 [place] phosphatase 264, LDH 2067, CA reactive protein 320.8. Lactic acid 3.1. CT angiogram of the chest reveals no evidence pulmonary embolism. Severe pulmonary interstitial and airspace edema. Chest x-ray reveals pulmonary interstitial pneumonia worse than recent exam. Some airspace component. Patient is status post 2 L of IV fluids, potassium replacement, Dilaudid, patient seen by pulmonary medicine and started on Tocilizumab. 11/05: Patient remains in the intensive care unit. She is a nonrebreather mask and AorVp and can maintain a pulse ox in the 90s. If she removes these, patient follows less than 70s. She is very anxious today and has many questions. She does have large number of psychiatric medications which have been resumed. We will also add and Xanax twice daily as needed. She has been afebrile, heart rate 89, blood pressure 116/79, pulse ox 95%. Repeat blood work reveals WBC 11.8, hemoglobin 7.7, platelet count 243. D-dimer 1.95. Sodium 135, electrolyt es otherwise normal, BUN 18 creatinine 0.45. Blood sugars running between 117- 129. AST 48, ALT 18, alkaline phosphatase 218, LDH 2243. C-reactive protein 254. Patient had 2 blood cultures, one is showing no growth at 24 hours and the second obtained at 2240 showing gram-positive cocci. She was started on vancomycin. 11/06: Patient remains in ICU, still on a BiPAP treatments,, continuously, terri barber did not have any meals for the past 72 hours secondary to hypoxemia and air hunger without the reading device. Patient has not slept well at all, cytokinin markers are elevated, blood culture growing Staphylococcus from specimen collected November 03 are pending sensitivity. Patient currently is on IV cefazolin, IV vancomycin, followed by infectious disease. So Medrol 60 mg every 6 hours, most of her oral medications cannot be complied upon secondary to hypoxemia event removed briefly. Hemoglobin at 7.2, blood gas shows pCO2 54, PaO2 of 67, 7.39 pH. Double basic count of under 10, creatinine of 0.5, LDH 1845, alkaline phosphatase 194. Albumin low at 2.6, blood pressure stable,Heart rate of 114, blood pressure of 135/90. Pulse ox 85-86 at BiPAP treatments. 11/07 yesterday afternoon, patient required placement of right chest tube secondary to spontaneous pneumothorax placed by the ER doctor,, patient has worsening respiratory status, and was intubated by the ER physician currently with tidal volume of 40, PEEP of 10, assist control rate of 24, FiO2 of 80%. There is residual small pneumothorax right side, there is a left subclavian triple-lumen placed by Dr. Harrington today. There is consult for nutrition, has an OG tube, for which feedings would be started once completed. Chest x-ray shows bilateral diffuse infiltrates, creatinine of 0.4, LDH of 1630, CRP of 36 platelet count 132, hemoglobin 7.3 11/08: Patient remains in the intensive care unit, intubated and on mechanical ventilation with FiO2 100%, tidal volume 400 and PEEP of 10. Patient is currently on sedation. Repeat chest x-ray today reveals increase in size of right-sided pneumothorax since previous measuring of 3.5 cm today compared to 1.2 cm yesterday. Severe interstitial infiltrates throughout the lungs bilaterally slightly increased from previous. A second right-sided chest tube was placed today by Dr. Davison. Repeat blood work reveals WBC 5.2, hemoglobin 6.2, platelet count 133. Sodium 141, potassium 3.5, chloride 107, CO2 35, BUN 24 and creatinine 0.46. Blood sugar 132. Alkaline phosphatase 154. D-dimer 6.35. Patient is ordered for transfusion 1 unit packed RBCs today. Blood culture is MSSA and patient is on Ancef 2 g every 8 hours. Pleural fluid culture in progress. Patient has been afebrile, heart rate low 100s, respiratory rate 27, blood pressure 135/93, pulse ox 96%. Patient will be started on tube feedings today. 11/09: She remains intubated and on mechanical ventilation. She is on both Nimbex and Propofol. She remains intubated and on mechanical ventilation with tidal volume 400, FiO2 65 and PEEP of 10. Repeat chest x-ray reveals improving right apical pneumothorax measuring less than 5%. Stable bilateral diffuse infiltrates. WBC 8, hemoglobin 7.8 status post 1 unit of packed RBCs. Platelet count 123. Sodium 141, potassium 3.9, chloride 105, CO2 37. BUN 28 creatinine 0.51. Blood sugar 142. Inflammatory markers are improving with d-dimer 7.09, fibrinogen 159, LDH 1249, C-reactive protein 8.3, CK 23. Patient is on Kefzol for antibiotics. She remains with right-sided chest tube. She has been a febrile, heart rate 80, blood pressure 116/78, pulse ox 92%. Patient is not requiring vasopressors. 11/10: Initial chest x-ray this morning revealed interval development of 50% left-sided pneumothorax. Patient is status post chest tube placement on the left by Dr. Davison. Repeat chest x-ray revealed bilateral apical pneumothoraces measuring less than 5. Stable on the right improved on the left. Diffuse bilateral pulmonary parenchymal disease stable. Patient remains intubated and on mechanical ventilation. She is now off Nimbex. Tidal volume 500, FiO2 60% and PEEP of 8. Patient is on tube feedings. Repeat blood work reveals WBC 7.5, hemoglobin 7.7, platelet count 126. Sodium 139, potassium 3.3 and was replaced, chloride 98, CO2 38, BUN 28 creatinine 0.41. Cultures are running between 134-150. D-dimer 0.05, LDH 1338, CK 65, C-reactive protein less than 5. Sputum culture is in progress. Blood cultures no growth at 24 hours. All previous blood cultures are showing no growth. IgG is low at 471. Request a nurse contact Dr. Davison about IVIG infusion. 11/11: She remains in the intensive care unit, intubated and on mechanical ventilation with tidal volume 400, FiO2 50% and PEEP of 6. Patient now has bilateral chest tubes in place for bilateral pneumothoraces with right-sided air leak. Weaning will be attempted today. She has been afebrile, heart rate 95, blood pressure 148/81, pulse ox 96%. Repeat blood work reveals W BC 5.8, hemoglobin 10.3, platelet count 101. D-dimer 6.03. C-reactive protein less than 5, CK 44. LDH 1234. Sodium 133, potassium 3.8, chloride 94, CO2 38, BUN 22 and creatinine 0.32. Blood culture, sputum culture, pleural fluid culture also positive for MSSA. Patient is covered with Kefzol. 11/12: Patient remains in intensive care unit, intubated and on mechanical ventilation with tidal volume 400, FiO2 50% and PEEP of 6. She failed weaning trial yesterday and she was desatting and back on propofol as well as Precedex and fentanyl drips were added. Patient has been afebrile, heart rate 86, blood pressure 134/68, pulse ox 90%, respiratory rate 24. Repeat blood work reveals WBC 17.3, hemoglobin 9, platelets 164. Sodium 134, potassium 3.6, chloride 97, CO2 30, BUN 19 and creatinine 0.33. Blood sugars running between 127 and 141. Alkaline phosphatase 149. LDH 1437. C-reactive protein 6.4. Repeat chest x-ray reveals slight interval increase in the right-sided pneumothorax compared to prior exam. Correlate for pneumonia, edema or ARDS. She remains with bilateral chest tubes in place. Prognosis remains guarded. 11/13: Patient remains in the intensive care unit. She has been successfully extubated this morning and is on 15 L high flow nasal cannula. She has been afebrile, heart rate in the 80s, blood pressure 109/75. Repeat blood work reveals W BC 10.7, hemoglobin 7.3, platelet count 116. D-dimer 5.54. Sodium 134, potassium 4.0, chloride 97, CO2 33, BUN 20, creatinine 0.29. Blood sugars running between 119 and 143. LDH 1057, CK 22, C-reactive protein less than 5. Chest x-ray reveals small right apical pneumothorax slightly smaller. Right chest tube. No change in patchy airspace opacities in the lung right greater than left. Left-sided chest tube unchanged in position and resolution of left small apical pneumothorax. The patient's mental status is not back to baseline. She is somewhat confused. 11/14: Patient remains in the intensive care unit. PO 80s on NRB. Patient encouraged to keep mask on face. She has been afebrile, HR 80s - 90s, RR 28, BP 129/95. Repeat blood work reveals WBC 19.1, HGB 8.9, PLT 152. Sodium 134, K 3.7, Chloride 94, CO2 31. BUN 17, Creat 0.26. Ferritin 68.9. AST 49, ALT 17, AP149. LDH 2274. CK 61, CRP 29.4. CXR reveals stable diffuse infiltrates and small right apical pheumothorax. 11/15: Patient remains in the intensive care unit. Her breathing status appears to be stable. Pulse ox is running anywhere between 86 and 100% on 15 L high flow nasal cannula. She is complaining of right-sided pain in her chest secondary to the chest tube. Patient does have Dilaudid which she is receiving every 3 hours and we will add in Metaline. The left-sided chest tube was removed yesterday. She has been afebrile, heart rate in the 90s, blood pressure 116/74. Chest x-ray reveals similar findings to prior. WBC 14.0, hemoglobin 8.8, platelet count 171. D-dimer 3.61. Sodium 134, potassium 4.3, chloride 96, CO2 33, BUN 25 and creatinine 0.34. Blood sugars are controlled. Alkaline phosphatase 128. LDH 1634. CK 49. C-reactive protein 21.8. No plan to palpation of the intensive care unit today. We'll plan for Seymour catheter to be removed. 11/16: Patient remains in intensive care unit. She is now on high flow nasal cannula at 10 L. She is having some sinus tachycardia especially with eating breakfast this morning. She is on Dilaudid IV every 3 hours and Metaline was added yesterday and will encourage to use Metaline today and try and wean off Dilaudid. She continues to have pain at the chest tube site. Chest x-ray this morning reveals no significant interval change. Right-sided pneumothorax is likely decreased. CTA of the chest reveals no evidence of pulmonary embolism. Right- sided pneumothorax. Right chest tube in good position in the major fissure. 11/17:Patient remains in the intensive care unit. She is tachycardic up to 137 this morning and pulmonary medicine started her on metoprolol. She's been afebrile, respiratory rate in the 20s, blood pressure 117/83, pulse ox is 88-97% on 8 L nasal cannula high flow. Repeat blood work reveals to be BBC 13, hemoglobin 8.6, platelet count 181. D-dimer 2.23. Sodium 135. Potassium 4.2, chloride 97, CO2 31, BUN 27 creatinine 0.34. Blood sugars running between 93 and 141. Liver function tests are normal. LDH 1096. CK 24, CK 5.1. Repeat chest x-ray reveals similar findings, correlate for pneumonia. Right-sided chest tube remains in place which may be discontinued later today. Patient is complaining of significant pain to the right chest tube site and using Dilaudid around the clock. She states and Metaline does not help. BuSpar changed to scheduled twice daily. Patient has been evaluated by Dr. Faith and not appropriate for inpatient rehab. 11/18: A she seen today on the [facility] floor. Patient was complaining of migraine headaches and Fioricet was resumed. Patient is complaining of feeling so weak that she cannot move. She remains with chest tube in place. Breathing status seems to be stable. She is pulse ox seen in the 90s at 5 L high flow nasal cannula. Patient has been afebrile. Heart rate 99, blood pressure 126/80, pulse ox 97% on high flow 5 L. Repeat chest x-ray reveals stable findings. WBC 14.2, hemoglobin 9.9, sodium 136, potassium 4.6, creatinine 0.37. Patient is on cefepime as well as Lovenox, IV Solu-Medrol and supplements. 11/19: Patient is complaining of continued pain for which Metaline changed to Percocet. She has been receiving Dilaudid around the clock. She remains with chest tube in place. Pulse ox is been 91-98% on 4 L nasal cannula. She has been afebrile, heart rate 96 but episodes of tachycardia with movement, blood pressure 99/64. Blood sugars are running between 88 and 149. Discussed discharge planning which will be to [facility] or [facility] most likely on Sunday. 11/20: Patient had more leak yesterday with pneumothorax require chest tube without adjustment of her chest tube felt much comfortable finally continue current management and limited physical therapy at this point is still the plan probably for subacute rehab. 11/21: Patient is feeling much better today her right-sided pneumothorax and pleural effusion are improved still have chest tube in C loss or drainage. Pneumonitis has improved significantly, patient still losing weight, as well as under control, still having the plan to go to subacute rehab either on Sunday or Sunday. 11/22:patient has been afebrile, heart rate 84, blood pressure 99/61, pulse ox 95% on room air. Blood sugars are running between 103 and 161. Sputum culture, pleural fluid culture, blood culture are positive for MSSA. Repeat blood culture is no grwoth at 144 hours. Patient is not currently on any antibiotics. She is on Solu-Medrol 60 mg IV every 6 hours. She was reassessed by Dr. Faith and appears to be not a candidate for inpatient rehab. Repeat chest x-ray reveals patchy bilateral infiltrates with interval increase in size of right apical pneumothorax measuring 15%. CTS is planning to continue right pleural chest tube. The Dilaudid will be discontinued. Solu-Medrol decreased to 40 mg IV every 8 hours. 11/23: Patient remains afebrile, heart rate 101, blood pressure 109/68, pulse ox 90-96% on room air. Repeat chest x-ray reveals slight improvement of right apical pneumothorax measuring 5-10%. Diffuse bilateral patchy infiltrates stable. Yesterday, IV Solu-Medrol as transitioned to oral prednisone and Lovenox decreased to 40 mg daily. Repeat inflammatory markers reveal d-dimer of 2.27. Blood sugars are running between 7112. Patient will be started on nystatin for thrush. Heart rate has been in the 140s and we will discontinue metoprolol place patient back on her Inderal. She is also asking for Cepacol lozenges, Zyrtec and Flonase. Patient encouraged to be up in a chair. Await further input from cardiothoracic surgery. Discharge plan is for [facility]. Social work is following closely. 11/24: Patient has been afebrile, heart rate 92, blood pressure 96/55, pulse ox 96% on 2 L. Heart rate was better controlled through the night running 80s and 90s. Repeat chest x-ray reveals interval increase in size of the pneumothorax measuring 15%. Diffuse bilateral patchy infiltrates stable. No immediate plan for removal of chest tube by cardiothoracic surgery. Patient is complaining of pain and requesting that her pain medications be increased. Patient is currently on Metaline and Percocet which she should not be on both. Metaline will be discontinued. Patient is also complaining of ear pain and examination showed no acute findings. Patient is complaining of hoarse voice. 11/25: Patient has been afebrile, heart rate 95, blood pressure 93/61, pulse ox 99% on room air. Sugars running between 89 and 107 and complete cbg discontinued. She'll chest x-ray this morning revealed right-sided pneumothorax persists may slightly smaller in size with apical pleural distance of 1.9 cm versus 2.7 cm previously. Interstitial and alveolar infiltrates persist throughout both lung eng with interval progression suggested. A new right-sided chest tube was place in the right anterior chest wall. Repeat CXR reveals second right-sided chest tube inserted with decreasing size of right- sided pneumothorax. Lateral component to the pneumothorax has resolved and apical component now at 8 mm versus 2 cm. Continued interstitial infiltrates a nd patchy peripheral mid and lower lung opacities. Patient states her pain is better today. She still has the right lateral pleural chest tube in place. Portal was started by cardiothoracic surgery. Telemetry will be discontinued. Prednisone decreased to 10 mg daily by pulmonary medicine. Discharge plan remains to go to [facility] for subacute rehab. 11/26: Patient has been afebrile, heart rate 91, blood pressure 101/58, pulse ox 94% on room air. Sugars are running between 89 and 116. We had discontinued CBGs several days ago. Repeat chest x-ray reveals diffuse bilateral airspace disease with small right effusion stable. 5% right apical pneumothorax stable. Cardiothoracic surgery has taken patient off suction and she is currently having drainage. Plan is to clamp chest tube tomorrow and possible removal tomorrow. Prednisone decreased to 5 mg daily. 11/27: Chest tube was clamped this morning in anticipation of removing the cyst afternoon. Patient's discharge plan is now to go home. Patient is complaining of insomnia and level 10 mg at bedtime added. She has been afebrile, heart rate 80, blood pressure 96/59, pulse ox 95% on room air. She continues to have hoarseness. She is not eating very much but is on ensure clear as well. Repeat blood work will be ordered for tomorrow. Anticipate discharge in the next 24-48 hours. REVIEW OF SYSTEMS Constitutional: No fever, no chills, no night sweats. No weight change. Reports weakness, Reports fatigue. No daytime sleepiness. EENT: Denies headache. No blurred vision or double vision, no loss of vision. No nasal drainage or congestion. No epistaxis. Reports hoarseness. No sore throat. Lungs: Reports shortness of breath, Reports rare cough, no sputum production. No wheezing. Cardiovascular: Reports chest wall pain improved, no lower extremity edema. No palpitations. No paroxysmal nocturnal dyspnea. No orthopnea. No lightheadedness or dizziness. No syncopal episodes. Abdominal: No abdominal pain. No nausea, vomiting. No diarrhea. No constipation. No bloody or tarry stools. No loss of appetite. Genitourinary: No dysuria, increased frequency, urgency. No urinary retention. Musculoskeletal: No myalgias. No muscle weakness, no gait dysfunction, no frequent falls. No back pain. No neck pain. Integumentary: No wounds, no lesions. Neurologic: No aphasia. No facial droop. No change in mentation. No head injury. No headache. No paralysis. No paresthesia. Psychiatric: No depression. No anxiety. Endocrine: No abnormal blood sugars. PHYSICAL EXAMINATION Gen: This is a 39-year-old female. Patient is resting in bed and appe ars to be comfortable at rest on room air. HEENT: Head is atraumatic, normocephalic. Pupils equal, round. Sclerae is anicteric. NECK: Supple. No JVD. No lymphadenopathy. No thyromegaly. Oral mucous membranes are dry. LUNGS: Scattered rhonchi, crackles in the bases. No intercostal retractions. Right anterior chest tube. HEART: Regular rate and rhythm. No murmur. ABDOMEN: Soft. Bowel sounds are present. No masses. No tenderness. EXTREMITIES: No pedal edema. No calf tenderness. Dorsalis pedis palpable bilaterally. NEUROLOGICAL: Patient is awake, alert and oriented x3. Cranial nerves 2 through 12 are grossly intact. ASSESSMENT AND PLAN 1. Acute hypoxic respiratory failure secondary to acute Covid 19 pneumonia, MSSA pneumonia, has been on supportive care seen pulmonary, continue updraft treatment and worsening complication of pneumothorax require attention at this point. Continue oral prednisone decreased to 5 mg daily. 2. Right sided pneumothorax requiring chest tube 11/06, 11/08, 11/25. Discontinue IV Dilaudid, continue only Percocet for pain control. Metaline discontinued. Possible removal of right-sided chest tube today. 3. Acute exacerbation of mild intermittent bronchial asthma. Continue Ventolin inhaler 4 times daily as needed. 4. Recurrent depression and generalized anxiety disorder: She is on multiple medication between BuSpar, Abilify, Wellbutrin and Cymbalta 5. Primary immunodeficiency, stable. 6. Chronic anemia of chronic disease most likely due to history of bleeding ulcers and alcohol abuse. 7. Tobacco use and dependence including vaping. 8. Daily alcohol use/abuse. Stable. 9. Debility: Continue physical therapy. 10. Acute anemia secondary to sepsis without blood loss. S/p transfusion of 1 unit of packed RBCs. 11. Migraine headaches. Continue Fioricet as needed. Continue Inderal 60 mg daily. 12. Sepsis with MSSA bacteremia, POA. 13. Moderate protein calorie malnutrition. 14. Gastroesophageal reflux disease with history of bleeding ulcers. Continue Protonix 40 mg twice daily and Carafate 1 g 4 times daily. 15. Tachycardia. Patient resumed on Inderal, discontinue Lopressor. 16. Thrush. Patient started on nystatin. 17. Insomnia. Add Elavil 10 mg at bedtime. 18. DVT prophylaxis. Lovenox. DISCHARGE PLAN Home in the next 24-48 hrs. Impression and plan of care have been directed as dictated by the signing physician. Isabel Samayoa nurse practitioner acting as scribe for signing physician. Objective - Vital Signs Vital signs: Vital Signs Temp 98.2 F 11/27/20 06:00 Pulse 80 11/27/20 06:00 Resp 19 11/27/20 06:00 BP 96/59 11/27/20 06:00 Pulse Ox 95 11/27/20 06:00 Intake & Output 11/26/20 11/27/20 11/27/20 18:59 06:59 18:59 Intake Total 540 Output Total 70 25 Balance -70 -25 540 Weight 57.8 kg Intake: Oral 540 Output: Chest Tube Drainage 70 25 Chest Tube Right 70 25 Other: Voiding Method Bedside Commode Bedside Commode Bedpan Bedpan # Voids 5 ABP, PAP, CO, CI - Last Documented Arterial Blood Pressure 119/75 - Labs CBC & Chem 7: 11/22/20 06:29 11/22/20 06:29
[2020-11-27] MEDS: SODIUM CHLORIDE 0.9% 1,000 ML IV SCH (12:25)
--- NOTE | 2020-11-27 12:36 | P.PN ---
Subjective Progress Note Date: 11/27/20 Principal diagnosis: Acute hypoxic respiratory failure secondary to covid 19 pneumonia, and bilateral pneumothoraces secondary to barotrauma. The patient is seen today 11/20/2020 in follow-up on the regular medical floor. She is sitting up in a chair at the bedside. Awake and alert in no acute distress. Maintaining O2 saturations in the 90s on 4 L/m per nasal cannula. He is afebrile. Hemodynamically stable. She remains on cefepime, IV Solu-Medrol, Lovenox, vitamin supplements. Right-sided chest tube remains in place to wall suction. Leak is still present. Persistent right-sided pneumothorax. Chest tube was manipulated this morning by CT services for better positioning. She continues to work well the incentive spirometer. The patient is seen today 11/21/2020 in follow-up on the regular medical floor. Currently sitting up in bed. Awake and alert in no acute distress. Maintaining O2 saturations in the 90s on 2 L/m per nasal cannula. Chest x-ray revealing improved right pneumothorax with trace residual. Persistent moderate opacities. Chest tube remains in place. Leak is still present. On 11/22/2020 patient seen in follow-up on medical surgical floor she is sitting up in the chair, breathing comfortable, she remains on room air, and sometimes she applies her oxygen back on at 2 L, her pulse ox on room air is 96%, on 2 L her pulse ox 100%, she is awake and alert, oriented 3, itching questions appropriate, no altered mentation, she's had no fever or chills patient still has chest tube in place, in the right chest, today's chest x-ray shows slight interval increase in the size of right apical pneumothorax measuring at 15%, CT surgery is following, right-sided chest tube remains to wall suction. No worsening dyspnea, no worsening chest discomfort. She is working on incentive spirometer. Remains on IV Solu-Medrol 40 mg every 8 hours, which at this point we can switch to oral prednisone, she remains on vitamins, and Lovenox 30 mg by mouth twice daily. Today's labs have been reviewed, cytosis is improving, with a total, 13.5, hemoglobin is 9.1, electrolytes within normal limits, B1 is 25 creatinine 0.4, her last d-dimer on 11/17/2020 was 2.23 Patient was reevaluated today on 11/23/2020, remains on the regular medical floor, comfortable, in no distress, however she continues to have a right-sided chest tube in place, and she continues to have air leak. Continues to have right apical pneumothorax. Patient is on 2 L nasal cannula, and her O2 sats is 98%. Continues to have a left-sided subclavian triple-lumen catheter which I have ordered to be discontinued. Thoracic surgery is still forming on her persistent right-sided pneumothorax, she may eventually require surgical intervention. Based on the chest x-ray, the chest tube seems to be in the proper position, nonetheless she continues to have some air leak and apical pneumothorax. Reevaluated today on 11/24/2020, patient is on 2 L nasal cannula, in no distress, continues to have significant air leak in her right sided chest tube. She was told by surgery that in the next 3 more days, if she continues to have an air leak, surgical intervention would be considered. In the meantime the patient is hemodynamically stable, she is in no distress. Chest x-ray today continues to show at least a 30% right-sided pneumothorax in spite of the chest tube in place. Patient was reevaluated today on 11/25/2020, remains on 2 L nasal cannula, she was seen by surgery again, she continues to have air leak in the right-sided chest tube Pleur-evac. Apparently Dr. Orozco decided to place another chest tube today, and this was done at a higher level and anteriorly. Follow-up chest x- ray continues to show a small right-sided apical pneumothorax. Clinically the patient is about the same. Reevaluated today on 11/26/2020, patient is doing relatively well, off oxygen, she is maintaining O2 saturation of 94% on room air. Her chest tube was taken off suction patient has no air leak, and her chest x-ray today showed less than 5% right apical pneumothorax which has been stable. Continues to show bilateral airspace disease related to her most recent covid 19 pneumonia. Again the patient now is doing well, her chest tube is off suction, and I don't see an air leak, the plan is to possibly remove the chest tube by tomorrow. Her all chest tube has been removed. Patient was reevaluated today on 11/27/2020, patient is up in the chair, not in any distress, her chest tube remains to water seal, no air leak, it was clamped about a few hours ago and may have the tube removed today by thoracic surgery if no air leak and no worsening in her pneumothorax. More subcutaneous emphysema noted on the chest x-ray today. Patient is not in any distress. She is actually on room air at present. Objective - Vital Signs Vital signs: Vital Signs Temp 98.7 F 11/27/20 09:58 Pulse 59 L 11/27/20 09:58 Resp 18 11/27/20 09:58 BP 101/71 11/27/20 09:58 Pulse Ox 95 11/27/20 09:58 Intake & Output 11/26/20 11/27/20 11/27/20 18:59 06:59 18:59 Intake Total 540 Output Total 70 25 Balance -70 -25 540 Weight 57.8 kg Intake: Oral 540 Output: Chest Tube Drainage 70 25 Chest Tube Right 70 25 Other: Voiding Method Bedside Commode Bedside Commode Bedpan Bedpan # Voids 5 ABP, PAP, CO, CI - Last Documented Arterial Blood Pressure 119/75 - Exam Physical Exam revealed a 39-year-old female in no distress. On room air, Head: Atraumatic normocephalic. HEENT:[Neck is supple.] [No neck masses.] [No thyromegaly.] [No JVD.] Left subclavian triple-lumen catheter is noted. Chest: 1 right-sided chest tube clamped earlier today, crackles at the bases. Abdomen: Soft, nontender, no rebound, no guarding, normal bowel sounds.] Extremities: [No clubbing, no edema, no cyanosis.] Neurological Exam: [No focal neurologic deficit.] Alert oriented 3. Psychiatric: Normal mood affect and normal mental status examination. HEENT: No rashes Musculoskeletal: No deformities noted limitation range of motion - Labs CBC & Chem 7: 11/22/20 06:29 11/22/20 06:29 Assessment and Plan Assessment: Impression: Acute hypoxic respiratory failure secondary to covid 19 pneumonia, requiring intubation and mechanical ventilation. Patient did receive toci Acute bilateral pneumothoraces requiring bilateral chest tube placement felt to be related to barotrauma, expected. MSSA bacteremia and complicated parapneumonic effusion with MSSA infection, no empyema. Tobacco dependence syndrome. Generalized anxiety disorder History of immune deficiency disorder Irritable bowel syndrome Migraine cephalgia Fibromyalgia Status post right-sided tube thoracostomy 2 for barotrauma the last chest tube was placed today on 11/25/[address] Nolasco, the initial one was placed by Dr. Davison. The initial one was already removed, patient has only one right-sided chest tube in place which was placed by Dr. Nolasco. Presently clamped, may be removed later today or tomorrow. Recommendation: Continue clamping of the right-sided chest tube. Continue present medications Continue prednisone at 5 mg daily Thoracic surgery to continue to follow on the right-sided pneumothorax. Once her chest tubes are removed, patient could be discharged home. We'll continue to follow. Time with Patient: Less than 30
[2020-11-27] MEDS: AMITRIPTYLINE HCL 10 MG TAB PO SCH (20:15)
[2020-11-27] MEDS: MELATONIN 3 MG TABLET PO SCH (20:16)
[2020-11-28] MEDS: oxyCODONE-APAP 5-325MG 1 EACH TAB PO PRN ×4 (02:10→21:22)
[2020-11-28] MEDS: KETOROLAC 15 MG/ML 1 ML VIAL IVP SCH ×4 (04:47→21:24)
[2020-11-28 07:40] LABS: ALT 45 U/L (4-34); AST 25 U/L (14-36); African American GFR (CKD) >90 (>60 ml/min/1.73 sqM); Albumin 2.5 g/dL (3.5-5.0); Alkaline Phosphatase 219 U/L (38-126); Anion Gap 5 mmol/L; Blood Urea Nitrogen 15 mg/dL (7-17); Calcium 8.6 mg/dL (8.4-10.2); Carbon Dioxide 26 mmol/L (22-30); Chloride 106 mmol/L (98-107); Globulin 2.6 g/dL; Glucose 80 mg/dL (74-99); Non-African American GFR(CKD) >90 (>60 ml/min/1.73 sqM); Potassium 3.6 mmol/L (3.5-5.1); Sodium 137 mmol/L (137-145); Total Bilirubin 0.3 mg/dL (0.2-1.3); Total Protein 5.1 g/dL (6.3-8.2)
[2020-11-28] MEDS: PROPRANOLOL LA 60 MG CAP.SA.24H PO SCH (07:57)
[2020-11-28] MEDS: ZINC SULFATE 220 MG CAP PO SCH (07:57)
[2020-11-28] MEDS: ASCORBIC ACID 500 MG TAB PO SCH (07:57)
[2020-11-28] MEDS: CHOLECALCIFEROL 25 MCG (1000 IU) TABLET PO SCH (07:57)
[2020-11-28] MEDS: SUCRALFATE 1 GM TAB PO SCH ×4 (07:58→19:48)
[2020-11-28] MEDS: busPIRone HCl 10 MG TAB PO SCH ×2 (07:58→19:48)
[2020-11-28] MEDS: buPROPion XL 150 MG TAB.ER.24H PO SCH (07:59)
[2020-11-28] MEDS: predniSONE 10 MG TAB PO SCH (07:59)
[2020-11-28] MEDS: ARIPiprazole 5 MG TAB PO SCH (07:59)
[2020-11-28] MEDS: DULoxetine HCL 60 MG CAPSULE.DR PO SCH (07:59)
[2020-11-28] MEDS: NYSTATIN 100,000 UNIT/ML SUSP 500,000 UNIT/5 ML CUP PO SCH ×4 (08:00→19:48)
[2020-11-28] MEDS: TOPIRAMATE 25 MG TAB PO SCH (08:00)
[2020-11-28] MEDS: ENOXAPARIN 40 MG/0.4 ML SYRINGE SQ SCH (08:00)
[2020-11-28] MEDS: PANTOPRAZOLE 40 MG/10 ML VIAL IVP SCH ×2 (08:00→19:48)
[2020-11-28] MEDS: TRIAMCINOLONE 0.1% CREAM 80 GM TUBE TOPICAL SCH ×2 (08:01→19:42)
[2020-11-28] MEDS: ALBUTEROL HFA INHALER INHALATION PRN ×4 (09:01→20:48)
[2020-11-28 09:03] LABS: HCT 24.2 % (37.2-46.3); HGB 7.4 g/dL (12.0-15.0); MCH 28.4 pg (27.0-32.0); MCHC 30.6 g/dL (32.0-37.0); MCV 92.7 fL (80.0-97.0); Mean Platelet Volume 10.4 fL (9.5-12.2); Platelet Count 272 X 10*3/uL (140-440); RBC 2.61 X 10*6/uL (4.10-5.20); RDW 17.5 % (11.5-14.5); WBC 5.77 X 10*3/uL (4.50-10.00)
[2020-11-28] MEDS ORDERED: ONDANSETRON 4 MG/2 ML VIAL IVP PRN (09:30)
--- NOTE | 2020-11-28 09:30 | P.PN ---
Subjective Progress Note Date: 11/28/20 Principal diagnosis: Persistent right pneumothorax. Previous medical history of GI bleed secondary to history of 2 nonbleeding antral ulcers requiring transfusion of 2 units packed red blood cells, asthma, irritable bowel syndrome, anxiety, depression, bipolar, post traumatic stress disorder, fibromyalgia, chronic ongoing tobacco, draping use and EtOH abuse. The patient was seen and examined this morning on the fourth floor medical surgical unit. She is sitting up in bed in no acute distress. Denies pain, shortness of breath. Currently on room air with oxygen saturations in the mid 90s. Continues to have hoarse voice. Right anterior apical chest tube removed yesterday as there is no air leak, including once chest tube was unclamped. Chest x-ray this morning shows increase in right-sided pneumothorax. Objective - Vital Signs Vital signs: Vital Signs Temp 98.3 F 11/28/20 06:00 Pulse 89 11/28/20 06:00 Resp 16 11/28/20 06:00 BP 99/59 11/28/20 06:00 Pulse Ox 96 11/28/20 06:00 Intake & Output 11/27/20 11/28/20 11/28/20 18:59 06:59 18:59 Intake Total 1080 Balance 1080 Intake: Oral 1080 Other: Voiding Method Bedside Commode Bedpan # Voids 5 3 ABP, PAP, CO, CI - Last Documented Arterial Blood Pressure 119/75 - Exam CONSTITUTIONAL: Appears comfortable, cooperative, no acute distress RESPIRATORY: Lungs sounds diminished bilaterally. Respirations even, nonlabored. Currently on room air with oxygen saturation 96%. Able to achieve 1000 mL on incentive spirometry. Strong cough. CARDIOVASCULAR: S1, S2 present. Regular rate and rhythm. Palpable peripheral pulses bilaterally. No edema present. No calf pain or tenderness noted. GASTROINTESTINAL: Abdomen soft, nontender, nondistended. Active bowel sounds present 4 quadrants. Tolerating diet. GENITOURINARY: Continues to void INTEGUMENTARY: Skin is warm and dry with evidence of good perfusion. NEUROLOGIC: Cranial nerves II through XII intact MUSKULOSKELETAL: Able to move all extremities, strength equal bilaterally, gait normal PSYCHIATRIC: Alert and oriented to person place and time, appropriate affect, intact judgment and insight - Allied health notes Allied health notes reviewed: nursing - Labs CBC & Chem 7: 11/28/20 06:29 11/28/20 06:29 - Imaging and Cardiology Chest x-ray: image reviewed Assessment and Plan Assessment: 1. Persistent tiny right pneumothorax despite right pleural chest tube being in place 2. Acute hypoxic respiratory failure secondary to acute COVID 19 pneumonia 3. MSSA bacteremia, sputum, pleural fluid 4. History of anemia with nonbleeding antral ulcers, status post transfusion of 1 unit of packed red blood cells on admission 5. Chronic ongoing tobacco dependence and vaping use 6. Irritable bowel syndrome 7. History of fibromyalgia 8. History of asthma 9. History of bipolar disorder 10. History of ADHD 11. History of depression 12. History of EtOH abuse, drinks 1 pint of tequila daily Plan: 1. Chest tube discontinued yesterday. Increase in pneumothorax this morning, patient in no distress. Will continue to monitor for increase in size or respiratory distress, repeat CXR in AM. 2. No surgical intervention is warranted at this time. 3. Encourage use of her incentive spirometry 10 times every hour while awake. 4. Bronchodilators, steroids per pulmonology 5. Continue to monitor her daily chest x-rays. 6. More recommendations to follow based on patient's clinical course. Time with Patient: Greater than 30
[2020-11-28] MEDS: SODIUM CHLORIDE 0.9% 1,000 ML IV SCH (09:58)
--- NOTE | 2020-11-28 10:33 | XR ---
EXAMINATION TYPE: XR chest 1V portable DATE OF EXAM: 11/28/2020 COMPARISON: 11/27/2020 INDICATION: Pneumothorax TECHNIQUE: Single frontal view of the chest is obtained. FINDINGS: The heart size is normal. The pulmonary vasculature is normal. Patchy bilateral lung infiltrates are present. There is a moderate size right pneumothorax. This has increased over the interval and is estimated at approximately 50%. Chest tube is been removed. Subcutaneous emphysema is on the right. IMPRESSION: 1. Increasing right-sided pneumothorax currently estimated at 50%. A [place] critical message alert has been initiated for Blaire Kulkarni via the [employer] on 11/28/2020 10:30 AM. This message alert has been sent to Blaire Kulkarni via the pref erences provided by the clinician for the receipt of Radiology Critical Findings. Message ID [id number].
[2020-11-28] MEDS: BUTALB/APAP/CAFF 50-325-40MG TAB PO PRN ×2 (10:50→19:47)
[2020-11-28] MEDS: BENZOCAINE/MENTHOL LOZENG 1 EACH LOZENGE MUCOUS MEM PRN ×3 (10:51→19:47)
--- NOTE | 2020-11-28 12:22 | P.PN ---
Subjective Progress Note Date: 11/28/20 HISTORY OF PRESENT ILLNESS This is a 39-year-old female patient of Dr. Gonzalez with past medical history of GI bleed in 2008, July 2020 was admitted for GI bleed secondary to 2 no nbleeding antral ulcers requiring transfusion 2 units packed RBCs, tobacco use, alcohol abuse, recurrent depression, generalized anxiety disorder. Patient was diagnosed with COVID-19 on October 30. She complains of increasing shortness of breath, cough, congestion, fever and chills and hoarseness. She continued to worsen significantly over the past 2 days. She also complains of bloody sputum production. Patient came into [facility] emergency center for evaluation. Temperature 98.3, heart rate 102, respiratory rate 40, blood pressure 95/64, pulse ox 71%. EKG was a sinus rhythm no acute ST elevation. W BC 9.4, hemoglobin 8.6, platelet count 284. Sodium 135, potassium 2.8, chloride 102, CO2 21, BUN 19 creatinine 0.88. Blood sugar 92. AST 71, ALT 24, alkaline phosphatase 264 [place] phosphatase 264, LDH 2067, CA reactive protein 320.8. Lactic acid 3.1. CT angiogram of the chest reveals no evidence pulmonary embolism. Severe pulmonary interstitial and airspace edema. Chest x-ray reveals pulmonary interstitial pneumonia worse than recent exam. Some airspace component. Patient is status post 2 L of IV fluids, potassium replacement, Dilaudid, patient seen by pulmonary medicine and started on Tocilizumab. 11/05: Patient remains in the intensive care unit. She is a nonrebreather mask and AorVp and can maintain a pulse ox in the 90s. If she removes these, patient follows less than 70s. She is very anxious today and has many questions. She does have large number of psychiatric medications which have been resumed. We will also add and Xanax twice daily as needed. She has been afebrile, heart rate 89, blood pressure 116/79, pulse ox 95%. Repeat blood work reveals WBC 11.8, hemoglobin 7.7, platelet count 243. D-dimer 1.95. Sodium 135, electrolyt es otherwise normal, BUN 18 creatinine 0.45. Blood sugars running between 117- 129. AST 48, ALT 18, alkaline phosphatase 218, LDH 2243. C-reactive protein 254. Patient had 2 blood cultures, one is showing no growth at 24 hours and the second obtained at 2240 showing gram-positive cocci. She was started on vancomycin. 11/06: Patient remains in ICU, still on a BiPAP treatments,, continuously, terri barber did not have any meals for the past 72 hours secondary to hypoxemia and air hunger without the reading device. Patient has not slept well at all, cytokinin markers are elevated, blood culture growing Staphylococcus from specimen collected November 03 are pending sensitivity. Patient currently is on IV cefazolin, IV vancomycin, followed by infectious disease. So Medrol 60 mg every 6 hours, most of her oral medications cannot be complied upon secondary to hypoxemia event removed briefly. Hemoglobin at 7.2, blood gas shows pCO2 54, PaO2 of 67, 7.39 pH. Double basic count of under 10, creatinine of 0.5, LDH 1845, alkaline phosphatase 194. Albumin low at 2.6, blood pressure stable,Heart rate of 114, blood pressure of 135/90. Pulse ox 85-86 at BiPAP treatments. 11/07 yesterday afternoon, patient required placement of right chest tube secondary to spontaneous pneumothorax placed by the ER doctor,, patient has worsening respiratory status, and was intubated by the ER physician currently with tidal volume of 40, PEEP of 10, assist control rate of 24, FiO2 of 80%. There is residual small pneumothorax right side, there is a left subclavian triple-lumen placed by Dr. Harrington today. There is consult for nutrition, has an OG tube, for which feedings would be started once completed. Chest x-ray shows bilateral diffuse infiltrates, creatinine of 0.4, LDH of 1630, CRP of 36 platelet count 132, hemoglobin 7.3 11/08: Patient remains in the intensive care unit, intubated and on mechanical ventilation with FiO2 100%, tidal volume 400 and PEEP of 10. Patient is currently on sedation. Repeat chest x-ray today reveals increase in size of right-sided pneumothorax since previous measuring of 3.5 cm today compared to 1.2 cm yesterday. Severe interstitial infiltrates throughout the lungs bilaterally slightly increased from previous. A second right-sided chest tube was placed today by Dr. Davison. Repeat blood work reveals WBC 5.2, hemoglobin 6.2, platelet count 133. Sodium 141, potassium 3.5, chloride 107, CO2 35, BUN 24 and creatinine 0.46. Blood sugar 132. Alkaline phosphatase 154. D-dimer 6.35. Patient is ordered for transfusion 1 unit packed RBCs today. Blood culture is MSSA and patient is on Ancef 2 g every 8 hours. Pleural fluid culture in progress. Patient has been afebrile, heart rate low 100s, respiratory rate 27, blood pressure 135/93, pulse ox 96%. Patient will be started on tube feedings today. 11/09: She remains intubated and on mechanical ventilation. She is on both Nimbex and Propofol. She remains intubated and on mechanical ventilation with tidal volume 400, FiO2 65 and PEEP of 10. Repeat chest x-ray reveals improving right apical pneumothorax measuring less than 5%. Stable bilateral diffuse infiltrates. WBC 8, hemoglobin 7.8 status post 1 unit of packed RBCs. Platelet count 123. Sodium 141, potassium 3.9, chloride 105, CO2 37. BUN 28 creatinine 0.51. Blood sugar 142. Inflammatory markers are improving with d-dimer 7.09, fibrinogen 159, LDH 1249, C-reactive protein 8.3, CK 23. Patient is on Kefzol for antibiotics. She remains with right-sided chest tube. She has been a febrile, heart rate 80, blood pressure 116/78, pulse ox 92%. Patient is not requiring vasopressors. 11/10: Initial chest x-ray this morning revealed interval development of 50% left-sided pneumothorax. Patient is status post chest tube placement on the left by Dr. Davison. Repeat chest x-ray revealed bilateral apical pneumothoraces measuring less than 5. Stable on the right improved on the left. Diffuse bilateral pulmonary parenchymal disease stable. Patient remains intubated and on mechanical ventilation. She is now off Nimbex. Tidal volume 500, FiO2 60% and PEEP of 8. Patient is on tube feedings. Repeat blood work reveals WBC 7.5, hemoglobin 7.7, platelet count 126. Sodium 139, potassium 3.3 and was replaced, chloride 98, CO2 38, BUN 28 creatinine 0.41. Cultures are running between 134-150. D-dimer 0.05, LDH 1338, CK 65, C-reactive protein less than 5. Sputum culture is in progress. Blood cultures no growth at 24 hours. All previous blood cultures are showing no growth. IgG is low at 471. Request a nurse contact Dr. Davison about IVIG infusion. 11/11: She remains in the intensive care unit, intubated and on mechanical ventilation with tidal volume 400, FiO2 50% and PEEP of 6. Patient now has bilateral chest tubes in place for bilateral pneumothoraces with right-sided air leak. Weaning will be attempted today. She has been afebrile, heart rate 95, blood pressure 148/81, pulse ox 96%. Repeat blood work reveals W BC 5.8, hemoglobin 10.3, platelet count 101. D-dimer 6.03. C-reactive protein less than 5, CK 44. LDH 1234. Sodium 133, potassium 3.8, chloride 94, CO2 38, BUN 22 and creatinine 0.32. Blood culture, sputum culture, pleural fluid culture also positive for MSSA. Patient is covered with Kefzol. 11/12: Patient remains in intensive care unit, intubated and on mechanical ventilation with tidal volume 400, FiO2 50% and PEEP of 6. She failed weaning trial yesterday and she was desatting and back on propofol as well as Precedex and fentanyl drips were added. Patient has been afebrile, heart rate 86, blood pressure 134/68, pulse ox 90%, respiratory rate 24. Repeat blood work reveals WBC 17.3, hemoglobin 9, platelets 164. Sodium 134, potassium 3.6, chloride 97, CO2 30, BUN 19 and creatinine 0.33. Blood sugars running between 127 and 141. Alkaline phosphatase 149. LDH 1437. C-reactive protein 6.4. Repeat chest x-ray reveals slight interval increase in the right-sided pneumothorax compared to prior exam. Correlate for pneumonia, edema or ARDS. She remains with bilateral chest tubes in place. Prognosis remains guarded. 11/13: Patient remains in the intensive care unit. She has been successfully extubated this morning and is on 15 L high flow nasal cannula. She has been afebrile, heart rate in the 80s, blood pressure 109/75. Repeat blood work reveals W BC 10.7, hemoglobin 7.3, platelet count 116. D-dimer 5.54. Sodium 134, potassium 4.0, chloride 97, CO2 33, BUN 20, creatinine 0.29. Blood sugars running between 119 and 143. LDH 1057, CK 22, C-reactive protein less than 5. Chest x-ray reveals small right apical pneumothorax slightly smaller. Right chest tube. No change in patchy airspace opacities in the lung right greater than left. Left-sided chest tube unchanged in position and resolution of left small apical pneumothorax. The patient's mental status is not back to baseline. She is somewhat confused. 11/14: Patient remains in the intensive care unit. PO 80s on NRB. Patient encouraged to keep mask on face. She has been afebrile, HR 80s - 90s, RR 28, BP 129/95. Repeat blood work reveals WBC 19.1, HGB 8.9, PLT 152. Sodium 134, K 3.7, Chloride 94, CO2 31. BUN 17, Creat 0.26. Ferritin 68.9. AST 49, ALT 17, AP149. LDH 2274. CK 61, CRP 29.4. CXR reveals stable diffuse infiltrates and small right apical pheumothorax. 11/15: Patient remains in the intensive care unit. Her breathing status appears to be stable. Pulse ox is running anywhere between 86 and 100% on 15 L high flow nasal cannula. She is complaining of right-sided pain in her chest secondary to the chest tube. Patient does have Dilaudid which she is receiving every 3 hours and we will add in Celestine. The left-sided chest tube was removed yesterday. She has been afebrile, heart rate in the 90s, blood pressure 116/74. Chest x-ray reveals similar findings to prior. WBC 14.0, hemoglobin 8.8, platelet count 171. D-dimer 3.61. Sodium 134, potassium 4.3, chloride 96, CO2 33, BUN 25 and creatinine 0.34. Blood sugars are controlled. Alkaline phosphatase 128. LDH 1634. CK 49. C-reactive protein 21.8. No plan to palpation of the intensive care unit today. We'll plan for Seymour catheter to be removed. 11/16: Patient remains in intensive care unit. She is now on high flow nasal cannula at 10 L. She is having some sinus tachycardia especially with eating breakfast this morning. She is on Dilaudid IV every 3 hours and Celestine was added yesterday and will encourage to use Celestine today and try and wean off Dilaudid. She continues to have pain at the chest tube site. Chest x-ray this morning reveals no significant interval change. Right-sided pneumothorax is likely decreased. CTA of the chest reveals no evidence of pulmonary embolism. Right- sided pneumothorax. Right chest tube in good position in the major fissure. 11/17:Patient remains in the intensive care unit. She is tachycardic up to 137 this morning and pulmonary medicine started her on metoprolol. She's been afebrile, respiratory rate in the 20s, blood pressure 117/83, pulse ox is 88-97% on 8 L nasal cannula high flow. Repeat blood work reveals to be BBC 13, hemoglobin 8.6, platelet count 181. D-dimer 2.23. Sodium 135. Potassium 4.2, chloride 97, CO2 31, BUN 27 creatinine 0.34. Blood sugars running between 93 and 141. Liver function tests are normal. LDH 1096. CK 24, CK 5.1. Repeat chest x-ray reveals similar findings, correlate for pneumonia. Right-sided chest tube remains in place which may be discontinued later today. Patient is complaining of significant pain to the right chest tube site and using Dilaudid around the clock. She states and Celestine does not help. BuSpar changed to scheduled twice daily. Patient has been evaluated by Dr. Faith and not appropriate for inpatient rehab. 11/18: A she seen today on the [facility] floor. Patient was complaining of migraine headaches and Fioricet was resumed. Patient is complaining of feeling so weak that she cannot move. She remains with chest tube in place. Breathing status seems to be stable. She is pulse ox seen in the 90s at 5 L high flow nasal cannula. Patient has been afebrile. Heart rate 99, blood pressure 126/80, pulse ox 97% on high flow 5 L. Repeat chest x-ray reveals stable findings. WBC 14.2, hemoglobin 9.9, sodium 136, potassium 4.6, creatinine 0.37. Patient is on cefepime as well as Lovenox, IV Solu-Medrol and supplements. 11/19: Patient is complaining of continued pain for which Celestine changed to Percocet. She has been receiving Dilaudid around the clock. She remains with chest tube in place. Pulse ox is been 91-98% on 4 L nasal cannula. She has been afebrile, heart rate 96 but episodes of tachycardia with movement, blood pressure 99/64. Blood sugars are running between 88 and 149. Discussed discharge planning which will be to [facility] or [facility] most likely on Sunday. 11/20: Patient had more leak yesterday with pneumothorax require chest tube without adjustment of her chest tube felt much comfortable finally continue current management and limited physical therapy at this point is still the plan probably for subacute rehab. 11/21: Patient is feeling much better today her right-sided pneumothorax and pleural effusion are improved still have chest tube in C loss or drainage. Pneumonitis has improved significantly, patient still losing weight, as well as under control, still having the plan to go to subacute rehab either on Sunday or Sunday. 11/22:patient has been afebrile, heart rate 84, blood pressure 99/61, pulse ox 95% on room air. Blood sugars are running between 103 and 161. Sputum culture, pleural fluid culture, blood culture are positive for MSSA. Repeat blood culture is no grwoth at 144 hours. Patient is not currently on any antibiotics. She is on Solu-Medrol 60 mg IV every 6 hours. She was reassessed by Dr. Faith and appears to be not a candidate for inpatient rehab. Repeat chest x-ray reveals patchy bilateral infiltrates with interval increase in size of right apical pneumothorax measuring 15%. CTS is planning to continue right pleural chest tube. The Dilaudid will be discontinued. Solu-Medrol decreased to 40 mg IV every 8 hours. 11/23: Patient remains afebrile, heart rate 101, blood pressure 109/68, pulse ox 90-96% on room air. Repeat chest x-ray reveals slight improvement of right apical pneumothorax measuring 5-10%. Diffuse bilateral patchy infiltrates stable. Yesterday, IV Solu-Medrol as transitioned to oral prednisone and Lovenox decreased to 40 mg daily. Repeat inflammatory markers reveal d-dimer of 2.27. Blood sugars are running between 7112. Patient will be started on nystatin for thrush. Heart rate has been in the 140s and we will discontinue metoprolol place patient back on her Inderal. She is also asking for Cepacol lozenges, Zyrtec and Flonase. Patient encouraged to be up in a chair. Await further input from cardiothoracic surgery. Discharge plan is for [facility]. Social work is following closely. 11/24: Patient has been afebrile, heart rate 92, blood pressure 96/55, pulse ox 96% on 2 L. Heart rate was better controlled through the night running 80s and 90s. Repeat chest x-ray reveals interval increase in size of the pneumothorax measuring 15%. Diffuse bilateral patchy infiltrates stable. No immediate plan for removal of chest tube by cardiothoracic surgery. Patient is complaining of pain and requesting that her pain medications be increased. Patient is currently on Celestine and Percocet which she should not be on both. Celestine will be discontinued. Patient is also complaining of ear pain and examination showed no acute findings. Patient is complaining of hoarse voice. 11/25: Patient has been afebrile, heart rate 95, blood pressure 93/61, pulse ox 99% on room air. Sugars running between 89 and 107 and complete cbg discontinued. She'll chest x-ray this morning revealed right-sided pneumothorax persists may slightly smaller in size with apical pleural distance of 1.9 cm versus 2.7 cm previously. Interstitial and alveolar infiltrates persist throughout both lung eng with interval progression suggested. A new right-sided chest tube was place in the right anterior chest wall. Repeat CXR reveals second right-sided chest tube inserted with decreasing size of right- sided pneumothorax. Lateral component to the pneumothorax has resolved and apical component now at 8 mm versus 2 cm. Continued interstitial infiltrates a nd patchy peripheral mid and lower lung opacities. Patient states her pain is better today. She still has the right lateral pleural chest tube in place. Portal was started by cardiothoracic surgery. Telemetry will be discontinued. Prednisone decreased to 10 mg daily by pulmonary medicine. Discharge plan remains to go to [facility] for subacute rehab. 11/26: Patient has been afebrile, heart rate 91, blood pressure 101/58, pulse ox 94% on room air. Sugars are running between 89 and 116. We had discontinued CBGs several days ago. Repeat chest x-ray reveals diffuse bilateral airspace disease with small right effusion stable. 5% right apical pneumothorax stable. Cardiothoracic surgery has taken patient off suction and she is currently having drainage. Plan is to clamp chest tube tomorrow and possible removal tomorrow. Prednisone decreased to 5 mg daily. 11/27: Chest tube was clamped this morning in anticipation of removing the cyst afternoon. Patient's discharge plan is now to go home. Patient is complaining of insomnia and level 10 mg at bedtime added. She has been afebrile, heart rate 80, blood pressure 96/59, pulse ox 95% on room air. She continues to have hoarseness. She is not eating very much but is on ensure clear as well. Repeat blood work will be ordered for tomorrow. Anticipate discharge in the next 24-48 hours. 11/28: Patient complains of chest wall pain. She has been on Toradol. Patient complaining of nausea and Zofran was added today. Patient is also complaining of headache and Fioricet added. Patient has been afebrile, heart rate 96, blood pressure 109/64, pulse ox 97% on room air. WBC 5.7, hemoglobin 7.4. Electrolytes and renal function unremarkable. ALT 45, alkaline phosphatase 219 Patient's been seen by cardiothoracic team with plan to monitor patient overnight. Possible discharge home tomorrow. REVIEW OF SYSTEMS Constitutional: No fever, no chills, no night sweats. No weight change. Reports weakness, Reports fatigue. No daytime sleepiness. EENT: Reports headache. No blurred vision or double vision, no loss of vision. No nasal drainage or congestion. Reports hoarseness. No sore throat. Lungs: Reports shortness of breath, Reports rare cough, no sputum production. No wheezing. Cardiovascular: Reports chest wall discomfort, no lower extremity edema. No palpitations. No paroxysmal nocturnal dyspnea. No orthopnea. No lightheadedness or dizziness. No syncopal episodes. Abdominal: No abdominal pain. Reports nausea, denies vomiting. No diarrhea. No constipation. No bloody or tarry stools. No loss of appetite. Genitourinary: No dysuria, increased frequency, urgency. No urinary retention. Musculoskeletal: No myalgias. No muscle weakness, no gait dysfunction, no frequent falls. No back pain. No neck pain. Integumentary: No wounds, no lesions. Neurologic: No aphasia. No facial droop. No change in mentation. No head injury. No headache. No paralysis. No paresthesia. Psychiatric: No depression. No anxiety. Endocrine: No abnormal blood sugars. PHYSICAL EXAMINATION Gen: This is a 39-year-old female. Patient is resting in bed and appears to be comfortable at rest on room air. HEENT: Head is atraumatic, normocephalic. Pupils equal, round. Sclerae is anicteric. NECK: Supple. No JVD. No lymphadenopathy. No thyromegaly. Oral mucous membranes are dry. LUNGS: Scattered rhonchi, crackles in the bases. No intercostal retractions. HEART: Regular rate and rhythm. No murmur. ABDOMEN: Soft. Bowel sounds are present. No masses. No tenderness. EXTREMITIES: No pedal edema. No calf tenderness. Dorsalis pedis palpable bilaterally. NEUROLOGICAL: Patient is awake, alert and oriented x3. Cranial nerves 2 through 12 are grossly intact. ASSESSMENT AND PLAN 1. Acute hypoxic respiratory failure secondary to acute Covid 19 pneumonia, MSSA pneumonia, has been on supportive care seen pulmonary, continue updraft treatment and worsening complication of pneumothorax require attention at this point. Continue oral prednisone decreased to 5 mg daily. Zofran for nausea. 2. Right sided pneumothorax requiring chest tube 11/06, 11/08, 11/25. Discontinue IV Dilaudid, continue only Percocet for pain control. Celestine discontinued. Removed right-sided chest tube. Toradol for chest discomfort. 3. Acute exacerbation of mild intermittent bronchial asthma. Continue Ventolin inhaler 4 times daily as needed. 4. Recurrent depression and generalized anxiety disorder: She is on multiple medication between BuSpar, Abilify, Wellbutrin and Cymbalta 5. Primary immunodeficiency, stable. 6. Chronic anemia of chronic disease most likely due to history of bleeding ulcers and alcohol abuse. 7. Tobacco use and dependence including vaping. 8. Daily alcohol use/abuse. Stable. 9. Debility: Continue physical therapy. 10. Acute anemia secondary to sepsis without blood loss. S/p transfusion of 1 unit of packed RBCs. 11. Migraine headaches. Continue Fioricet as needed. Continue Inderal 60 mg daily. 12. Sepsis with MSSA bacteremia, POA. 13. Moderate protein calorie malnutrition. 14. Gastroesophageal reflux disease with history of bleeding ulcers. Continue Protonix 40 mg twice daily and Carafate 1 g 4 times daily. 15. Tachycardia. Patient resumed on Inderal, discontinue Lopressor. 16. Thrush. Patient started on nystatin. 17. Insomnia. Add Elavil 10 mg at bedtime. 18. DVT prophylaxis. Lovenox. DISCHARGE PLAN Home in the next 24 hrs. Impression and plan of care have been directed as dictated by the signing physician. Isabel Samayoa nurse practitioner acting as scribe for signing physician. Objective - Vital Signs Vital signs: Vital Signs Temp 98.3 F 11/28/20 06:00 Pulse 89 11/28/20 06:00 Resp 16 11/28/20 06:00 BP 99/59 11/28/20 06:00 Pulse Ox 96 11/28/20 06:00 Intake & Output 11/27/20 11/28/20 11/28/20 18:59 06:59 18:59 Intake Total 1080 Balance 1080 Weight 57.878 kg Intake: Oral 1080 Other: Voiding Method Bedside Commode Bedpan # Voids 5 3 ABP, PAP, CO, CI - Last Documented Arterial Blood Pressure 119/75 - Labs CBC & Chem 7: 11/28/20 06:29 11/28/20 06:29 Labs: Abnormal Lab Results - Last 24 Hours (Table) 11/28/20 11/28/20 Range/Units 06:29 06:29 RBC 2.61 L (4.10-5.20) X 10*6/uL Hgb 7.4 L (12.0-15.0) g/dL Hct 24.2 L (37.2-46.3) % MCHC 30.6 L (32.0-37.0) g/dL RDW 17.5 H (11.5-14.5) % Creatinine 0.46 L (0.52-1.04) mg/dL ALT 45 H (4-34) U/L Alkaline Phosphatase 219 H (38-126) U/L Total Protein 5.1 L (6.3-8.2) g/dL Albumin 2.5 L (3.5-5.0) g/dL
[2020-11-28] MEDS: AMITRIPTYLINE HCL 10 MG TAB PO SCH (19:48)
[2020-11-28] MEDS: MELATONIN 3 MG TABLET PO SCH (19:48)
[2020-11-29] MEDS: KETOROLAC 15 MG/ML 1 ML VIAL IVP SCH ×2 (04:33→09:26)
[2020-11-29] MEDS: oxyCODONE-APAP 5-325MG 1 EACH TAB PO PRN ×2 (04:33→09:36)
[2020-11-29] MEDS: BUTALB/APAP/CAFF 50-325-40MG TAB PO PRN (05:31)
--- NOTE | 2020-11-29 09:18 | XR ---
EXAMINATION TYPE: XR chest 1V portable DATE OF EXAM: 11/29/2020 COMPARISON: 11/28/2020 HISTORY: Shortness of breath TECHNIQUE: Single frontal view of the chest is obtained. FINDINGS: Interval improvement in the right-sided pneumothorax which now measures approximately 5-10 %. Few subcutaneous emphysema noted and there are diffuse interstitial and basilar infiltrate with sm all right pleural effusion. Heart size normal. IMPRESSION: 1. Interval reduction in size of the right-sided pneumothorax now measuring approximately 10 times. 2. Diffuse bilateral infiltrate and right-sided pleural effusion stable.
--- NOTE | 2020-11-29 09:20 | P.PN ---
Subjective Progress Note Date: 11/29/20 Principal diagnosis: Persistent right pneumothorax. Previous medical history of GI bleed secondary to history of 2 nonbleeding antral ulcers requiring transfusion of 2 units packed red blood cells, asthma, irritable bowel syndrome, anxiety, depression, bipolar, post traumatic stress disorder, fibromyalgia, chronic ongoing tobacco, draping use and EtOH abuse. The patient was seen and examined this morning on the fourth floor medical surgical unit. She is sitting up in bed in no acute distress about to ambulate with PT. Does complain of pain at chest tube sites, some shortness of breath with activity but no SOB at rest. Continues to remain on room air with oxygen saturations in the mid 90s. Continues to have hoarse voice. Chest x-ray this morning demonstrates improvement in right-sided pneumothorax. Objective - Vital Signs Vital signs: Vital Signs Temp 97.9 F 11/29/20 01:52 Pulse 95 11/29/20 01:52 Resp 17 11/29/20 01:52 BP 95/59 11/29/20 01:52 Pulse Ox 98 11/29/20 01:52 Intake & Output 11/28/20 11/29/20 11/29/20 18:59 06:59 18:59 Output Total 300 Balance -300 Weight 57.878 kg 57.8 kg Output: Urine 300 Other: Voiding Method Bedside Commode Bedpan # Voids 5 6 # Bowel Movements 1 1 ABP, PAP, CO, CI - Last Documented Arterial Blood Pressure 119/75 - Exam CONSTITUTIONAL: Appears comfortable, cooperative, no acute distress RESPIRATORY: Lungs sounds diminished bilaterally. Respirations even, nonlabored. Currently on room air with oxygen saturation 96-98%. Able to achieve 1000 mL on incentive spirometry. Strong cough. CARDIOVASCULAR: S1, S2 present. Regular rate and rhythm. Palpable peripheral pulses bilaterally. No edema present. No calf pain or tenderness noted. GASTROINTESTINAL: Abdomen soft, nontender, nondistended. Active bowel sounds present 4 quadrants. Tolerating diet. GENITOURINARY: Continues to void INTEGUMENTARY: Skin is warm and dry with evidence of good perfusion. CT sites covered with dressings. NEUROLOGIC: Cranial nerves II through XII intact MUSKULOSKELETAL: Able to move all extremities, strength equal bilaterally, gait normal PSYCHIATRIC: Alert and oriented to person place and time, appropriate affect, intact judgment and insight - Allied health notes Allied health notes reviewed: nursing - Labs CBC & Chem 7: 11/28/20 06:29 11/28/20 06:29 - Imaging and Cardiology Chest x-ray: image reviewed Assessment and Plan Assessment: 1. Persistent tiny right pneumothorax despite right pleural chest tube being in place 2. Acute hypoxic respiratory failure secondary to acute COVID 19 pneumonia 3. MSSA bacteremia, sputum, pleural fluid 4. History of anemia with nonbleeding antral ulcers, status post transfusion of 1 unit of packed red blood cells on admission 5. Chronic ongoing tobacco dependence and vaping use 6. Irritable bowel syndrome 7. History of fibromyalgia 8. History of asthma 9. History of bipolar disorder 10. History of ADHD 11. History of depression 12. History of EtOH abuse, drinks 1 pint of tequila daily Plan: 1. CXR reviewed, stable 2. No surgical intervention is warranted 3. Encourage use of her incentive spirometry 10 times every hour while awake. 4. Bronchodilators, steroids per pulmonology 5. Patient may be discharged to home from cardothoracic standpoint. She was instructed to continue to use incentive spirometer and increase activity as tolerated. May shower daily. May cover CT sites if draining, otherwise leave open to air 6. Will continue to see as needed. Please call us with any further questions Time with Patient: Greater than 30
[2020-11-29] MEDS: ALBUTEROL HFA INHALER INHALATION PRN (09:21)
[2020-11-29] MEDS ORDERED: ALPRAZolam 0.25 MG TAB PO STA (09:24)
[2020-11-29] MEDS: predniSONE 10 MG TAB PO SCH (09:26)
[2020-11-29] MEDS: busPIRone HCl 10 MG TAB PO SCH (09:26)
[2020-11-29] MEDS: SUCRALFATE 1 GM TAB PO SCH ×2 (09:26→12:25)
[2020-11-29] MEDS: DULoxetine HCL 60 MG CAPSULE.DR PO SCH (09:26)
[2020-11-29] MEDS: ASCORBIC ACID 500 MG TAB PO SCH (09:26)
[2020-11-29] MEDS: ZINC SULFATE 220 MG CAP PO SCH (09:26)
[2020-11-29] MEDS: ARIPiprazole 5 MG TAB PO SCH (09:27)
[2020-11-29] MEDS: CHOLECALCIFEROL 25 MCG (1000 IU) TABLET PO SCH (09:27)
[2020-11-29] MEDS: NYSTATIN 100,000 UNIT/ML SUSP 500,000 UNIT/5 ML CUP PO SCH ×2 (09:27→12:25)
[2020-11-29] MEDS: PANTOPRAZOLE 40 MG/10 ML VIAL IVP SCH (09:28)
[2020-11-29] MEDS: ENOXAPARIN 40 MG/0.4 ML SYRINGE SQ SCH (09:28)
[2020-11-29] MEDS: buPROPion XL 150 MG TAB.ER.24H PO SCH (09:28)
[2020-11-29] MEDS: PROPRANOLOL LA 60 MG CAP.SA.24H PO SCH (09:29)
[2020-11-29] MEDS: TOPIRAMATE 25 MG TAB PO SCH (09:29)
[2020-11-29] MEDS: TRIAMCINOLONE 0.1% CREAM 80 GM TUBE TOPICAL SCH (09:29)
[2020-11-29] MEDS ORDERED: oxyCODONE-APAP 5-325MG 1 EACH TAB PO PRN (10:09)
--- NOTE | 2020-11-29 10:24 | P.DS ---
Providers Date of admission: 11/03/20 22:02 Expected date of discharge: 11/29/20 Attending physician: David Murphy Consults: 11/03/20 22:02 Consult Physician Routine Consulting Provider: Armando Conn Consult Reason/Comments: COVID, Asthma Do you want consulting provider notified?: Yes 11/16/20 15:03 Consult Physician Routine Consulting Provider: Harshal Faith Consult Reason/Comments: possible IPR Do you want consulting provider notified?: Yes 11/20/20 08:00 Consult Physician Routine Consulting Provider: Jc Nolasco Consult Reason/Comments: persistent ptx Do you want consulting provider notified?: Yes Primary care physician: Patricia [facility] Course: HISTORY OF PRESENT ILLNESS This is a 39-year-old female patient of Dr. Gonzalez with past medical history of GI bleed in 2008, July 2020 was admitted for GI bleed secondary to 2 nonbleeding antral ulcers requiring transfusion 2 units packed RBCs, tobacco use, alcohol abuse, recurrent depression, generalized anxiety disorder. Patient was diagnosed with COVID-19 on October 30. She complains of increasing shortness of breath, cough, congestion, fever and chills and hoarseness. She continued to worsen significantly over the past 2 days. She also complains of bloody sputum production. Patient came into [facility] emergency center for evaluation. Temperature 98.3, heart rate 102, respiratory rate 40, blood pressure 95/64, pulse ox 71%. EKG was a sinus rhythm no acute ST elevation. W BC 9.4, hemoglobin 8.6, platelet count 284. Sodium 135, potassium 2.8, chloride 102, CO2 21, BUN 19 creatinine 0.88. Blood sugar 92. AST 71, ALT 24, alkaline phosphatase 264 [place] phosphatase 264, LDH 2067, CA reactive protein 320.8. Lactic acid 3.1. CT angiogram of the chest reveals no evidence pulmonary embolism. Severe pulmonary interstitial and airspace edema. Chest x-ray reveals pulmonary interstitial pneumonia worse than recent exam. Some airspace component. Patient is status post 2 L of IV fluids, potassium replacement, Dilaudid, patient seen by pulmonary medicine and started on Tocilizumab. 11/05: Patient remains in the intensive care unit. She is a nonrebreather mask and AorVp and can maintain a pulse ox in the 90s. If she removes these, patient follows less than 70s. She is very anxious today and has many questions. She does have large number of psychiatric medications which have been resumed. We will also add and Xanax twice daily as needed. She has been afebrile, heart rate 89, blood pressure 116/79, pulse ox 95%. Repeat blood work reveals WBC 11.8, hemoglobin 7.7, platelet count 243. D-dimer 1.95. Sodium 135, electrolytes otherwise normal, BUN 18 creatinine 0.45. Blood sugars running between 117-129. AST 48, ALT 18, alkaline phosphatase 218, LDH 2243. C- reactive protein 254. Patient had 2 blood cultures, one is showing no growth at 24 hours and the second obtained at 2240 showing gram-positive cocci. She was started on vancomycin. 11/06: Patient remains in ICU, still on a BiPAP treatments,, continuously, patient did not have any meals for the past 72 hours secondary to hypoxemia and air hunger without the reading device. Patient has not slept well at all, cytokinin markers are elevated, blood culture growing Staphylococcus from specimen collected November 03 are pending sensitivity. Patient currently is on IV cefazolin, IV vancomycin, followed by infectious disease. So Medrol 60 mg every 6 hours, most of her oral medications cannot be complied upon secondary to hypoxemia event removed briefly. Hemoglobin at 7.2, blood gas shows pCO2 54, PaO2 of 67, 7.39 pH. Double basic count of under 10, creatinine of 0.5, LDH 1845, alkaline phosphatase 194. Albumin low at 2.6, blood pressure stable,Heart rate of 114, blood pressure of 135/90. Pulse ox 85-86 at BiPAP treatments. 11/07 yesterday afternoon, patient required placement of right chest tube secondary to spontaneous pneumothorax placed by the ER doctor,, patient has worsening respiratory status, and was intubated by the ER physician currently with tidal volume of 40, PEEP of 10, assist control rate of 24, FiO2 of 80%. There is residual small pneumothorax right side, there is a left subclavian triple-lumen placed by Dr. Harrington today. There is consult for nutrition, has an OG tube, for which feedings would be started once completed. Chest x-ray shows bilateral diffuse infiltrates, creatinine of 0.4, LDH of 1630, CRP of 36 platelet count 132, hemoglobin 7.3 11/08: Patient remains in the intensive care unit, intubated and on mechanical ventilation with FiO2 100%, tidal volume 400 and PEEP of 10. Patient is currently on sedation. Repeat chest x-ray today reveals increase in size of right-sided pneumothorax since previous measuring of 3.5 cm today compared to 1.2 cm yesterday. Severe interstitial infiltrates throughout the lungs bilaterally slightly increased from previous. A second right-sided chest tube was placed today by Dr. Davison. Repeat blood work reveals WBC 5.2, hemoglobin 6.2, platelet count 133. Sodium 141, potassium 3.5, chloride 107, CO2 35, BUN 24 and creatinine 0.46. Blood sugar 132. Alkaline phosphatase 154. D-dimer 6.35. Patient is ordered for transfusion 1 unit packed RBCs today. Blood culture is MSSA and patient is on Ancef 2 g every 8 hours. Pleural fluid culture in progress. Patient has been afebrile, heart rate low 100s, respiratory rate 27, blood pressure 135/93, pulse ox 96%. Patient will be started on tube feedings today. 11/09: She remains intubated and on mechanical ventilation. She is on both Nimbex and Propofol. She remains intubated and on mechanical ventilation with tidal volume 400, FiO2 65 and PEEP of 10. Repeat chest x-ray reveals improving right apical pneumothorax measuring less than 5%. Stable bilateral diffuse infiltrates. WBC 8, hemoglobin 7.8 status post 1 unit of packed RBCs. Platelet count 123. Sodium 141, potassium 3.9, chloride 105, CO2 37. BUN 28 creatinine 0.51. Blood sugar 142. Inflammatory markers are improving with d-dimer 7.09, fibrinogen 159, LDH 1249, C-reactive protein 8.3, CK 23. Patient is on Kefzol for antibiotics. She remains with right-sided chest tube. She has been afebrile, heart rate 80, blood pressure 116/78, pulse ox 92%. Patient is not requiring vasopressors. 11/10: Initial chest x-ray this morning revealed interval development of 50% left-sided pneumothorax. Patient is status post chest tube placement on the left by Dr. Davison. Repeat chest x-ray revealed bilateral apical pneumothoraces measuring less than 5. Stable on the right improved on the left. Diffuse bilateral pulmonary parenchymal disease stable. Patient remains intubated and on mechanical ventilation. She is now off Nimbex. Tidal volume 500, FiO2 60% and PEEP of 8. Patient is on tube feedings. Repeat blood work reveals WBC 7.5, hemoglobin 7.7, platelet count 126. Sodium 139, potassium 3.3 and was replaced, chloride 98, CO2 38, BUN 28 creatinine 0.41. Cultures are running between 134-150. D-dimer 0.05, LDH 1338, CK 65, C-reactive protein less than 5. Sputum culture is in progress. Blood cultures no growth at 24 hours. All previous blood cultures are showing no growth. IgG is low at 471. Request a nurse contact Dr. Davison about IVIG infusion. 11/11: She remains in the intensive care unit, intubated and on mechanical ventilation with tidal volume 400, FiO2 50% and PEEP of 6. Patient now has bilateral chest tubes in place for bilateral pneumothoraces with right-sided air leak. Weaning will be attempted today. She has been afebrile, heart rate 95, blood pressure 148/81, pulse ox 96%. Repeat blood work reveals W BC 5.8, hemogl obin 10.3, platelet count 101. D-dimer 6.03. C-reactive protein less than 5, CK 44. LDH 1234. Sodium 133, potassium 3.8, chloride 94, CO2 38, BUN 22 and creatinine 0.32. Blood culture, sputum culture, pleural fluid culture also positive for MSSA. Patient is covered with Kefzol. 11/12: Patient remains in intensive care unit, intubated and on mechanical ventilation with tidal volume 400, FiO2 50% and PEEP of 6. She failed weaning trial yesterday and she was desatting and back on propofol as well as Precedex and fentanyl drips were added. Patient has been afebrile, heart rate 86, blood pressure 134/68, pulse ox 90%, respiratory rate 24. Repeat blood work reveals WBC 17.3, hemoglobin 9, platelets 164. Sodium 134, potassium 3.6, chloride 97, CO2 30, BUN 19 and creatinine 0.33. Blood sugars running between 127 and 141. Alkaline phosphatase 149. LDH 1437. C-reactive protein 6.4. Repeat chest x-ray reveals slight interval increase in the right-sided pneumothorax compared to teresa or exam. Correlate for pneumonia, edema or ARDS. She remains with bilateral chest tubes in place. Prognosis remains guarded. 11/13: Patient remains in the intensive care unit. She has been successfully extubated this morning and is on 15 L high flow nasal cannula. She has been afebrile, heart rate in the 80s, blood pressure 109/75. Repeat blood work reveals W BC 10.7, hemoglobin 7.3, platelet count 116. D-dimer 5.54. Sodium 134, potassium 4.0, chloride 97, CO2 33, BUN 20, creatinine 0.29. Blood sugars running between 119 and 143. LDH 1057, CK 22, C-reactive protein less than 5. Chest x-ray reveals small right apical pneumothorax slightly smaller. Right chest tube. No change in patchy airspace opacities in the lung right greater than left. Left-sided chest tube unchanged in position and resolution of left small apical pneumothorax. The patient's mental status is not back to baseline. She is somewhat confused. 11/14: Patient remains in the intensive care unit. PO 80s on NRB. Patient encouraged to keep mask on face. She has been afebrile, HR 80s - 90s, RR 28, BP 129/95. Repeat blood work reveals WBC 19.1, HGB 8.9, PLT 152. Sodium 134, K 3.7, Chloride 94, CO2 31. BUN 17, Creat 0.26. Ferritin 68.9. AST 49, ALT 17, AP149. LDH 2274. CK 61, CRP 29.4. CXR reveals stable diffuse infiltrates and small right apical pheumothorax. 11/15: Patient remains in the intensive care unit. Her breathing status appears to be stable. Pulse ox is running anywhere between 86 and 100% on 15 L high flow nasal cannula. She is complaining of right-sided pain in her chest secondary to the chest tube. Patient does have Dilaudid which she is receiving every 3 hours and we will add in Weston. The left-sided chest tube was removed yesterday. She has been afebrile, heart rate in the 90s, blood pressure 116/74. Chest x-ray reveals similar findings to prior. WBC 14.0, hemoglobin 8.8, platelet count 171. D-dimer 3.61. Sodium 134, potassium 4.3, chloride 96, CO2 33, BUN 25 and creatinine 0.34. Blood sugars are controlled. Alkaline phosphatase 128. LDH 1634. CK 49. C-reactive protein 21.8. No plan to palpation of the intensive care unit today. We'll plan for Seymour catheter to be removed. 11/16: Patient remains in intensive care unit. She is now on high flow nasal cannula at 10 L. She is having some sinus tachycardia especially with eating breakfast this morning. She is on Dilaudid IV every 3 hours and Weston was added yesterday and will encourage to use Weston today and try and wean off Dilaudid. She continues to have pain at the chest tube site. Chest x-ray this morning reveals no significant interval change. Right-sided pneumothorax is likely decreased. CTA of the chest reveals no evidence of pulmonary embolism. Right- sided pneumothorax. Right chest tube in good position in the major fissure. 11/17:Patient remains in the intensive care unit. She is tachycardic up to 137 this morning and pulmonary medicine started her on metoprolol. She's been afebrile, respiratory rate in the 20s, blood pressure 117/83, pulse ox is 88-97% on 8 L nasal cannula high flow. Repeat blood work reveals to be BBC 13, hemoglobin 8.6, platelet count 181. D-dimer 2.23. Sodium 135. Potassium 4.2, chloride 97, CO2 31, BUN 27 creatinine 0.34. Blood sugars running between 93 and 141. Liver function tests are normal. LDH 1096. CK 24, CK 5.1. Repeat chest x-ray reveals similar findings, correlate for pneumonia. Right-sided chest tube remains in place which may be discontinued later today. Patient is complaining of significant pain to the right chest tube site and using Dilaudid around the clock. She states and Weston does not help. BuSpar changed to scheduled twice daily. Patient has been evaluated by Dr. Faith and not appropriate for inpatient rehab. 11/18: A she seen today on the [facility] floor. Patient was complaining of migraine headaches and Fioricet was resumed. Patient is complaining of feeling so weak that she cannot move. She remains with chest tube in place. Breathing status seems to be stable. She is pulse ox seen in the 90s at 5 L high flow nasal cannula. Patient has been afebrile. Heart rate 99, blood pressure 126/80, pulse ox 97% on high flow 5 L. Repeat chest x-ray reveals stable findings. WBC 14.2, hemoglobin 9.9, sodium 136, potassium 4.6, creatinine 0.37. Patient is on cefepime as well as Lovenox, IV Solu-Medrol and supplements. 11/19: Patient is complaining of continued pain for which Weston changed to Percocet. She has been receiving Dilaudid around the clock. She remains with chest tube in place. Pulse ox is been 91-98% on 4 L nasal cannula. She has been afebrile, heart rate 96 but episodes of tachycardia with movement, blood pressure 99/64. Blood sugars are running between 88 and 149. Discussed discharge planning which will be to [facility] or [facility] most likely on Sunday. 11/20: Patient had more leak yesterday with pneumothorax require chest tube without adjustment of her chest tube felt much comfortable finally continue current management and limited physical therapy at this point is still the plan probably for subacute rehab. 11/21: Patient is feeling much better today her right-sided pneumothorax and pleural effusion are improved still have chest tube in C loss or drainage. Pneumonitis has improved significantly, patient still losing weight, as well as under control, still having the plan to go to subacute rehab either on Sunday or Sunday. 11/22:patient has been afebrile, heart rate 84, blood pressure 99/61, pulse ox 95% on room air. Blood sugars are running between 103 and 161. Sputum culture, pleural fluid culture, blood culture are positive for MSSA. Repeat blood culture is no grwoth at 144 hours. Patient is not currently on any antibiotics. She is on Solu-Medrol 60 mg IV every 6 hours. She was reassessed by Dr. Faith and appears to be not a candidate for inpatient rehab. Repeat chest x-ray reveals patchy bilateral infiltrates with interval increase in size of right apical pneumothorax measuring 15%. CTS is planning to continue right pleural chest tube. The Dilaudid will be discontinued. Solu-Medrol decreased to 40 mg IV every 8 hours. 11/23: Patient remains afebrile, heart rate 101, blood pressure 109/68, pulse ox 90-96% on room air. Repeat chest x-ray reveals slight improvement of right apical pneumothorax measuring 5-10%. Diffuse bilateral patchy infiltrates stable. Yesterday, IV Solu-Medrol as transitioned to oral prednisone and Lovenox decreased to 40 mg daily. Repeat inflammatory markers reveal d-dimer of 2.27. Blood sugars are running between 7112. Patient will be started on nystatin for thrush. Heart rate has been in the 140s and we will discontinue metoprolol place patient back on her Inderal. She is also asking for Cepacol lozenges, Zyrtec and Flonase. Patient encouraged to be up in a chair. Await further input from cardiothoracic surgery. Discharge plan is for [facility]. Social work is following closely. 11/24: Patient has been afebrile, heart rate 92, blood pressure 96/55, pulse ox 96% on 2 L. Heart rate was better controlled through the night running 80s and 90s. Repeat chest x-ray reveals interval increase in size of the pneumothorax measuring 15%. Diffuse bilateral patchy infiltrates stable. No immediate plan for removal of chest tube by cardiothoracic surgery. Patient is complaining of pain and requesting that her pain medications be increased. Patient is cur rently on Weston and Percocet which she should not be on both. Weston will be discontinued. Patient is also complaining of ear pain and examination showed no acute findings. Patient is complaining of hoarse voice. 11/25: Patient has been afebrile, heart rate 95, blood pressure 93/61, pulse ox 99% on room air. Sugars running between 89 and 107 and complete cbg discontinued. She'll chest x-ray this morning revealed right-sided pneumothorax persists may slightly smaller in size with apical pleural distance of 1.9 cm versus 2.7 cm previously. Interstitial and alveolar infiltrates persist throug hout both lung eng with interval progression suggested. A new right-sided chest tube was place in the right anterior chest wall. Repeat CXR reveals second right-sided chest tube inserted with decreasing size of right-sided pneumothorax. Lateral component to the pneumothorax has resolved and apical component now at 8 mm versus 2 cm. Continued interstitial infiltrates and patchy peripheral mid and lower lung opacities. Patient states her pain is better today. She still has the right lateral pleural chest tube in place. Portal was started by cardiothoracic surgery. Telemetry will be discontinued. Prednisone decreased to 10 mg daily by pulmonary medicine. Discharge plan remains to go to [facility] for subacute rehab. 11/26: Patient has been afebrile, heart rate 91, blood pressure 101/58, pulse ox 94% on room air. Sugars are running between 89 and 116. We had discontinued CBGs several days ago. Repeat chest x-ray reveals diffuse bilateral airspace disease with small right effusion stable. 5% right apical pneumothorax stable. Cardiothoracic surgery has taken patient off suction and she is currently having drainage. Plan is to clamp chest tube tomorrow and possible removal tomorrow. Prednisone decreased to 5 mg daily. 11/27: Chest tube was clamped this morning in anticipation of removing the cyst afternoon. Patient's discharge plan is now to go home. Patient is complaining of insomnia and level 10 mg at bedtime added. She has been afebrile, heart rate 80, blood pressure 96/59, pulse ox 95% on room air. She continues to have hoarseness. She is not eating very much but is on ensure clear as well. Repeat blood work will be ordered for tomorrow. Anticipate discharge in the next 24-48 hours. 11/28: Patient complains of chest wall pain. She has been on Toradol. Patient complaining of nausea and Zofran was added today. Patient is also complaining of headache and Fioricet added. Patient has been afebrile, heart rate 96, blood pressure 109/64, pulse ox 97% on room air. WBC 5.7, hemoglobin 7.4. Electrolytes and renal function unremarkable. ALT 45, alkaline phosphatase 219 Patient's been seen by cardiothoracic team with plan to monitor patient overnig ht. Possible discharge home tomorrow. 11/29: This morning, patient had an episode where she was very anxious and coughing and thought she was having an asthma attack. She is inhaler. No wheezing. Xanax was given 1 dose only at the time. Fioricet will be discontinued as caffeine may be affecting her anxiety. Percocet was increased frequency. Patient is requesting a walker for home which senior case manager is making arrangements for. Patient has been seen by consultants and cleared for discharge. Patient has been afebrile, heart rate 96, blood pressure 99/65, pulse ox 94% on room air. Patient will be discharged home today in stable condition. ASSESSMENT AND PLAN 1. Acute hypoxic respiratory failure secondary to acute Covid 19 pneumonia, MSSA pneumonia. 2. Right sided pneumothorax requiring chest tube 11/06, 11/08, 11/25. 3. Acute exacerbation of mild intermittent bronchial asthma. 4. Recurrent depression and generalized anxiety disorder. 5. Primary immunodeficiency, stable. 6. Chronic anemia of chronic disease most likely due to history of bleeding ulcers and alcohol abuse. 7. Tobacco use and dependence including vaping. 8. Daily alcohol use/abuse. 9. Debility. 10. Acute anemia secondary to sepsis without blood loss. S/p transfusion of 1 unit of packed RBCs. 11. Migraine headaches. 12. Sepsis with MSSA bacteremia, POA. 13. Moderate protein calorie malnutrition. 14. Gastroesophageal reflux disease with history of bleeding ulcers. 15. Tachycardia. 16. Thrush. 17. Insomnia. DISCHARGE PLAN Home with [facility] Impression and plan of care have been directed as dictated by the signing physician. Isabel Samayoa nurse practitioner acting as scribe for signing physician. Patient Condition at Discharge: Good Plan - Discharge Summary Discharge Rx Participant: No New Discharge Prescriptions: New Amitriptyline HCl [Elavil] 10 mg PO HS #30 tab Melatonin 6 mg PO HS tablet Zinc Sulfate [Orazinc] 220 mg PO DAILY cap oxyCODONE-APAP 5-325MG [Percocet 5-325 mg] 1 each PO Q4HR PRN #18 tab PRN Reason: Pain predniSONE 5 mg PO DAILY #2 tab Topiramate [Topamax] 25 mg PO DAILY #30 tab Ascorbic Acid [Vitamin C] 1,000 mg PO DAILY tab Continue DULoxetine HCL [Cymbalta] 60 mg PO DAILY Cetirizine HCl [Zyrtec] 10 mg PO DAILY PRN PRN Reason: Allergy Symptoms buPROPion XL [Wellbutrin XL] 150 mg PO DAILY Sucralfate [Carafate] 1 gm PO ACHS #60 tab Acetaminophen Tab [Tylenol] 650 mg PO Q6HR PRN tab PRN Reason: Mild Pain Or Fever > 100.5 Fluticasone Nasal [place] [Flonase Nasal [place]] 1 - 2 spr EA NOSTRIL Q48H PRN PRN Reason: Congestion Albuterol Sulfate [Proair Hfa] 2 puff INHALATION RT-Q4H PRN PRN Reason: Shortness Of Breath Cyclobenzaprine [Flexeril] 5 - 10 mg PO TID PRN PRN Reason: Muscle Spasm Propranolol LA [Inderal LA] 60 mg PO DAILY Pantoprazole Sodium [Protonix] 40 mg PO DAILY Fluticasone/Salmeterol [Advair 250-50 Diskus] 1 puff INHALATION RT-BID Cholecalciferol [Vitamin D3 (25 Mcg = 1000 Iu)] 25 mcg PO DAILY busPIRone HCl [Buspar] 10 mg PO BID PRN PRN Reason: Anxiety Benzonatate [Tessalon Perles] 200 mg PO TID Triamcinolone 0.1% Cream [Kenalog 0.1% Cream] 1 applic TOPICAL BID ARIPiprazole [Abilify] 7.5 mg PO DAILY Discontinued Butalb/Acetaminophen/Caffeine [Fioricet 50-325-40] 1 tab PO BID PRN PRN Reason: Migraine Headache Discharge Medication List Cetirizine HCl [Zyrtec] 10 mg PO DAILY PRN 02/26/20 [History] DULoxetine HCL [Cymbalta] 60 mg PO DAILY 02/26/20 [History] buPROPion XL [Wellbutrin XL] 150 mg PO DAILY 08/14/20 [History] Acetaminophen Tab [Tylenol] 650 mg PO Q6HR PRN tab 08/16/20 [Rx] Sucralfate [Carafate] 1 gm PO ACHS #60 tab 08/16/20 [Rx] ARIPiprazole [Abilify] 7.5 mg PO DAILY 11/04/20 [History] Albuterol Sulfate [Proair Hfa] 2 puff INHALATION RT-Q4H PRN 11/04/20 [History] Benzonatate [Tessalon Perles] 200 mg PO TID 11/04/20 [History] Cholecalciferol [Vitamin D3 (25 Mcg = 1000 Iu)] 25 mcg PO DAILY 11/04/20 [History] Cyclobenzaprine [Flexeril] 5 - 10 mg PO TID PRN 11/04/20 [History] Fluticasone Nasal [place] [Flonase Nasal [place]] 1 - 2 spr EA NOSTRIL Q48H PRN 11/04/20 [History] Fluticasone/Salmeterol [Advair 250-50 Diskus] 1 puff INHALATION RT-BID 11/04/20 [History] Pantoprazole Sodium [Protonix] 40 mg PO DAILY 11/04/20 [History] Propranolol LA [Inderal LA] 60 mg PO DAILY 11/04/20 [History] Triamcinolone 0.1% Cream [Kenalog 0.1% Cream] 1 applic TOPICAL BID 11/04/20 [History] busPIRone HCl [Buspar] 10 mg PO BID PRN 11/04/20 [History] Amitriptyline HCl [Elavil] 10 mg PO HS #30 tab 11/29/20 [Rx] Ascorbic Acid [Vitamin C] 1,000 mg PO DAILY tab 11/29/20 [Rx] Melatonin 6 mg PO HS tablet 11/29/20 [Rx] Topiramate [Topamax] 25 mg PO DAILY #30 tab 11/29/20 [Rx] Zinc Sulfate [Orazinc] 220 mg PO DAILY cap 11/29/20 [Rx] oxyCODONE-APAP 5-325MG [Percocet 5-325 mg] 1 each PO Q4HR PRN #18 tab 11/29/20 [Rx] predniSONE 5 mg PO DAILY #2 tab 11/29/20 [Rx] Follow up Appointment(s)/Referral(s): Patricia Gonzalez MD [Primary Care Provider] - 11/30/20 2:15 pm (virtual visit) Armando Conn DO [Doctor of Osteopathic Medicine] - 12/27/20 2:00 pm [facility], [NON-STAFF] - As Needed Evan Tapia MD [STAFF PHYSICIAN] - 1 Week (office not answering at time of discharge. Please call to schedule appointment ) Patient Instructions/Handouts: How to Stop Smoking (DC) Discharge Disposition: HOME WITH HOME HEALTH SERVICES
[2020-11-29 11:07] VITALS: BP 99/65; PULSE 96; RESP 16; TEMP 96.9
[2020-11-29] MEDS: SODIUM CHLORIDE 0.9% 1,000 ML IV SCH (12:25)
== END 2020-11-29 14:48 | disposition home health service (06) | DRG 870 ==
LOC: EC 19:26 → 3SCARD 22:02 → 2SICU 11-04 08:32 → 4SSUR 11-17 22:36 → 6NMEDSUR 11-19 04:21 → 4SSUR 11-19 04:38
PROVIDERS: ADMIT Internal Medicine Geriatric Medicine; ATTEND Internal Medicine Geriatric Medicine
PROC: XW033H5 Introduction of Tocilizumab into Peripheral Vein, Percutaneous Approach, New Technology Group 5 (ICD-10-PCS; 2020-11-04)
PROC: 5A0945A Assistance with Respiratory Ventilation, 24-96 Consecutive Hours, High Flow/Velocity Cannula (ICD-10-PCS; 2020-11-04)
PROC: 5A09357 Assistance with Respiratory Ventilation, Less than 24 Consecutive Hours, Continuous Positive Airway Pressure (ICD-10-PCS; 2020-11-05)
PROC: 5A1955Z Respiratory Ventilation, Greater than 96 Consecutive Hours (ICD-10-PCS; principal; 2020-11-06)
PROC: 0BH17EZ Insertion of Endotracheal Airway into Trachea, Via Natural or Artificial Opening (ICD-10-PCS; 2020-11-06)
PROC: 0D9670Z Drainage of Stomach with Drainage Device, Via Natural or Artificial Opening (ICD-10-PCS; 2020-11-06)
PROC: 05H633Z Insertion of Infusion Device into Left Subclavian Vein, Percutaneous Approach (ICD-10-PCS; 2020-11-07)
PROC: 03HY32Z Insertion of Monitoring Device into Upper Artery, Percutaneous Approach (ICD-10-PCS; 2020-11-07)
PROC: 4A133B1 Monitoring of Arterial Pressure, Peripheral, Percutaneous Approach (ICD-10-PCS; 2020-11-07)
PROC: 4A133J1 Monitoring of Arterial Pulse, Peripheral, Percutaneous Approach (ICD-10-PCS; 2020-11-07)
PROC: 30243N1 Transfusion of Nonautologous Red Blood Cells into Central Vein, Percutaneous Approach (ICD-10-PCS; 2020-11-08)
PROC: 0W9930Z Drainage of Right Pleural Cavity with Drainage Device, Percutaneous Approach (ICD-10-PCS; 2020-11-08)
PROC: 3E0G76Z Introduction of Nutritional Substance into Upper GI, Via Natural or Artificial Opening (ICD-10-PCS; 2020-11-08)
PROC: 0W9B30Z Drainage of Left Pleural Cavity with Drainage Device, Percutaneous Approach (ICD-10-PCS; 2020-11-10)
PROC: 05HF33Z Insertion of Infusion Device into Left Cephalic Vein, Percutaneous Approach (ICD-10-PCS; 2020-11-23)
DX: A41.01 Sepsis due to Methicillin susceptible Staphylococcus aureus (principal); J80 Acute respiratory distress syndrome; J12.82 Pneumonia due to coronavirus disease 2019; U07.1 COVID-19; J15.211 Pneumonia due to Methicillin susceptible Staphylococcus aureus; J91.8 Pleural effusion in other conditions classified elsewhere; D84.9 Immunodeficiency, unspecified; J93.12 Secondary spontaneous pneumothorax; E44.0 Moderate protein-calorie malnutrition; J45.21 Mild intermittent asthma with (acute) exacerbation; F33.9 Major depressive disorder, recurrent, unspecified; J93.82 Other air leak; J93.83 Other pneumothorax; B37.0 Candidal stomatitis; R04.2 Hemoptysis; J98.2 Interstitial emphysema; F10.20 Alcohol dependence, uncomplicated; D63.8 Anemia in other chronic diseases classified elsewhere; F41.1 Generalized anxiety disorder; F43.10 Post-traumatic stress disorder, unspecified; M79.7 Fibromyalgia; J30.2 Other seasonal allergic rhinitis; K21.9 Gastro-esophageal reflux disease without esophagitis; K58.9 Irritable bowel syndrome, unspecified; M26.609 Unspecified temporomandibular joint disorder, unspecified side; G43.909 Migraine, unspecified, not intractable, without status migrainosus; F90.9 Attention-deficit hyperactivity disorder, unspecified type; G47.00 Insomnia, unspecified; R49.0 Dysphonia; R00.0 Tachycardia, unspecified; G89.29 Other chronic pain; M54.9 Dorsalgia, unspecified; F17.290 Nicotine dependence, other tobacco product, uncomplicated; Z68.22 Body mass index [BMI] 22.0-22.9, adult; Z79.51 Long term (current) use of inhaled steroids; Z79.899 Other long term (current) drug therapy; Z87.42 Personal history of other diseases of the female genital tract; Z87.11 Personal history of peptic ulcer disease; Z86.69 Personal history of other diseases of the nervous system and sense organs; Z98.82 Breast implant status; Z56.0 Unemployment, unspecified; Z71.3 Dietary counseling and surveillance; Z98.890 Other specified postprocedural states; Z88.1 Allergy status to other antibiotic agents; Z91.040 Latex allergy status; Z88.0 Allergy status to penicillin; Z91.048 Other nonmedicinal substance allergy status; Z82.49 Family history of ischemic heart disease and other diseases of the circulatory system; Z81.4 Family history of other substance abuse and dependence; Z82.69 Family history of other diseases of the musculoskeletal system and connective tissue; Z81.1 Family history of alcohol abuse and dependence; Z82.5 Family history of asthma and other chronic lower respiratory diseases
CPT/HCPCS: 36410; 36415; 36600; 71045; 71046; 71275; 76937; 80048; 80053; 80202; 82550; 82728; 82784; 82805; 83540; 83550; 83605; 83615; 83735; 84132; 84145; 85025; 85027; 85379; 85384; 85610; 85730; 86140; 86850; 86900; 86901; 86920; 87040; 87070; 87077; 87186; 87205; 87635; 93005; 94002; 94003; 94640; 94644; 94660; 94760; 94770; 96365; 96366; 96367; 96374; 96375; 99285; 99291

== ENCOUNTER 2020-12-01 19:41 | Emergency (ER) | payer OTHER ==
[2020-12-01 20:13] VITALS: BP 100/65; PULSE 79; RESP 20; TEMP 98.3
--- NOTE | 2020-12-01 21:00 | ED ---
General Adult HPI - General Chief complaint: Skin/Abscess/Foreign Body Stated complaint: post op-problem with stitches Time Seen by Provider: 12/01/20 20:14 Source: patient, RN notes reviewed Mode of arrival: wheelchair Limitations: no limitations - History of Present Illness Initial comments: 39-year-old female with a past medical history of asthma, primary immunodeficiency presents to the emergency department for a chief complaint of dehiscence of wound. Patient had a chest tube placed and removed on 11/20 secondary to COVID. States that today her went to lift her up by her arms and the stitches came out. Patient states she wasn't sure what to do so came to the ER. Patient has no other complaints at this time including shortness of breath, chest pain, abdominal pain, nausea or vomiting, headache, or visual changes. - Related Data Home Medications Medication Instructions Recorded Confirmed Cetirizine HCl [Zyrtec] 10 mg PO DAILY PRN 02/26/20 11/04/20 DULoxetine HCL [Cymbalta] 60 mg PO DAILY 02/26/20 11/04/20 buPROPion XL [Wellbutrin XL] 150 mg PO DAILY 08/14/20 11/04/20 ARIPiprazole [Abilify] 7.5 mg PO DAILY 11/04/20 11/04/20 Albuterol Sulfate [Proair Hfa] 2 puff INHALATION RT-Q4H PRN 11/04/20 11/04/20 Benzonatate [Tessalon Perles] 200 mg PO TID 11/04/20 11/04/20 Cholecalciferol [Vitamin D3 (25 25 mcg PO DAILY 11/04/20 11/04/20 Mcg = 1000 Iu)] Cyclobenzaprine [Flexeril] 5 - 10 mg PO TID PRN 11/04/20 11/04/20 Fluticasone Nasal [place] [Flonase 1 - 2 spr EA NOSTRIL Q48H PRN 11/04/20 11/04/20 Nasal [place]] Fluticasone/Salmeterol [Advair 1 puff INHALATION RT-BID 11/04/20 11/04/20 250-50 Diskus] Pantoprazole Sodium [Protonix] 40 mg PO DAILY 11/04/20 11/04/20 Propranolol LA [Inderal LA] 60 mg PO DAILY 11/04/20 11/04/20 Triamcinolone 0.1% Cream [Kenalog 1 applic TOPICAL BID 11/04/20 11/04/20 0.1% Cream] busPIRone HCl [Buspar] 10 mg PO BID PRN 11/04/20 11/04/20 Previous Rx's Medication Instructions Recorded Acetaminophen Tab [Tylenol] 650 mg PO Q6HR PRN tab 08/16/20 Sucralfate [Carafate] 1 gm PO ACHS #60 tab 08/16/20 Amitriptyline HCl [Elavil] 10 mg PO HS #30 tab 11/29/20 Ascorbic Acid [Vitamin C] 1,000 mg PO DAILY tab 11/29/20 Melatonin 6 mg PO HS tablet 11/29/20 Topiramate [Topamax] 25 mg PO DAILY #30 tab 11/29/20 Zinc Sulfate [Orazinc] 220 mg PO DAILY cap 11/29/20 oxyCODONE-APAP 5-325MG [Percocet 1 each PO Q4HR PRN #18 tab 11/29/20 5-325 mg] predniSONE 5 mg PO DAILY #2 tab 11/29/20 Allergies Allergy/AdvReac Type Severity Reaction Status Date / Time adhesive Allergy Rash/Hives Verified 12/01/20 20:13 latex Allergy Rash/Hives Verified 12/01/20 20:13 prochlorperazine Allergy Unknown Verified 12/01/20 20:13 [From Compazine] ciprofloxacin [From Cipro] AdvReac Hallucinati Verified 12/01/20 20:13 ons citalopram [From Celexa] AdvReac Suicidal Verified 12/01/20 20:13 thoughts diazepam [From Valium] AdvReac Hallucinati Verified 12/01/20 20:13 ons/Anxiety fluoxetine [From Prozac] AdvReac Suicidal Verified 12/01/20 20:13 thoughts metoclopramide [From Reglan] AdvReac Hallucinati Verified 12/01/20 20:13 ons/Anxiety paroxetine [From Paxil] AdvReac Suicidal Verified 12/01/20 20:13 thoughts Penicillins AdvReac Nausea & Verified 12/01/20 20:13 Vomiting Review of Systems ROS Statement: Those systems with pertinent positive or pertinent negative responses have been documented in the HPI. ROS Other: All systems not noted in ROS Statement are negative. Past Medical History Past Medical History: Asthma, Fibromyalgia, GERD/Reflux, GI Bleed Additional Past Medical History / Comment(s): Pt tested covid + on 10/30/[address] [facility]. Other hx: Primary immunodeficiency, antral ulcers, GI bleed associated with excedrin/noninflammatory medication use, anemia, IBS, migraines, back pain, TMJ, seasonal allergies. History of Any Multi-Drug Resistant Organisms: None Reported Past Surgical History: Breast Surgery, Ear Surgery, Uterine Ablation Additional Past Surgical History / Comment(s): EGDs, colonoscopies, bilateral breast augmentation, septoplasty, L ear trauma/reattached. Past Anesthesia/Blood Transfusion Reactions: No Reported Reaction, Motion Sickness Additional Past Anesthesia/Blood Transfusion Reaction / Comment(s): Pt has received blood in past without reaction. Past Psychological History: ADD/ADHD, Anxiety, Bipolar, Depression, PTSD Smoking Status: Current every day smoker, Vaper Past Alcohol Use History: Abuse Past Drug Use History: None Reported - Past Family History Father Additional Family Medical History / Comment(s): Father at age 51 from accidental drug overdose. Mother Family Medical History: Fibromyalgia Additional Family Medical History / Comment(s): Mother is alive at age 61 with history of primary immunodeficiency. Brother(s) Additional Family Medical History / Comment(s): Patient has one brother with history of alcohol abuse. Patient does not have any sisters. Patient has 2 children with no major medical problems. General Exam Limitations: no limitations General appearance: alert, in no apparent distress Head exam: Present: atraumatic, normocephalic, normal inspection Eye exam: Present: normal appearance, PERRL, EOMI. Absent: scleral icterus, conjunctival injection, periorbital swelling ENT exam: Present: normal exam, mucous membranes moist Neck exam: Present: normal inspection. Absent: tenderness, meningismus, lymphadenopathy Respiratory exam: Present: normal lung sounds bilaterally, other (Patient has a superifical wound dehiscence noted to the right thorax measuring 3 cm). Absent: respiratory distress, wheezes, rales, rhonchi, stridor Cardiovascular Exam: Present: regular rate, normal rhythm, normal heart sounds. Absent: systolic murmur, diastolic murmur, rubs, gallop, clicks GI/Abdominal exam: Present: soft, normal bowel sounds. Absent: distended, tenderness, guarding, rebound, rigid Course Vital Signs 12/01/20 20:08 Temperature 98.3 F Pulse Rate 79 Respiratory 20 Rate Blood Pressure 100/65 O2 Sat by Pulse 99 Oximetry Medical Decision Making - Medical Decision Making Vitals are stable. Patient has a superficial wound dehiscence on the right thorax. No signs of infection. No erythema. Steri-Strips were applied. At this time patient be discharged home to follow up with primary care. Will return here for any worsening symptoms. Disposition Clinical Impression: Wound dehiscence Disposition: HOME SELF-CARE Condition: Good Instructions (If sedation given, give patient instructions): Wound Dehiscence (ED), Steristrips (ED) Additional Instructions: Please let the Steri-Strips fall off on their own. Follow-up with your doctor. Return to the emergency room for any worsening symptoms. Is patient prescribed a controlled substance at d/c from ED?: No Referrals: Patricia Gonazlez MD [Primary Care Provider] - 1-2 days Time of Disposition: 21:02
== END 2020-12-01 21:07 | disposition home or self-care (01) ==
LOC: EC 19:41
DX: T81.30XA Disruption of wound, unspecified, initial encounter (principal); J45.909 Unspecified asthma, uncomplicated; K21.9 Gastro-esophageal reflux disease without esophagitis; F41.9 Anxiety disorder, unspecified; F32.9 Major depressive disorder, single episode, unspecified; F17.290 Nicotine dependence, other tobacco product, uncomplicated
CPT/HCPCS: 99282

== ENCOUNTER → 2020-12-02 | Outpatient (CLI) | payer OTHER ==
--- NOTE | 2020-12-02 15:00 | XR ---
EXAMINATION TYPE: XR chest 2V DATE OF EXAM: 12/02/2020 COMPARISON: Chest x-ray 11/29/2020 HISTORY: Redness of breath, Covid pneumonia, pneumothorax TECHNIQUE: Frontal and lateral views of the chest are obtained. FINDINGS: The right apical pneumothorax is slightly increased in size as compared to prior exam, carrie ateral airspace disease persists. No evident effusion. Bilateral breast prostheses are present. Cardi ac mediastinal silhouette is stable. Subcutaneous emphysema is again noted. IMPRESSION: Pneumothorax is slightly increased in size as compared to prior exam. Correlate for roxanna maldonado. A [employer] level critical message alert has been initiated for Patricia Gonzalez MD via the [employer] Critical Results System on 12/02/2020 2:57 PM. This message alert has been sent to Patricia Gonzalez MD v ia the preferences provided by the clinician for the receipt of Radiology Critical Findings. Message ID [id number].
== END | disposition home or self-care (01) ==
LOC: RADXRMAIN 14:32
PROVIDERS: ATTEND Family Medicine
DX: U07.1 COVID-19 (principal); J12.82 Pneumonia due to coronavirus disease 2019; J93.9 Pneumothorax, unspecified
CPT/HCPCS: 71046

== ENCOUNTER 2020-12-03 01:44 | Emergency (ER) | payer OTHER ==
[2020-12-03 01:51] VITALS: TEMP 98.3
[2020-12-03 02:54] LABS: ALT 37 U/L (4-34); AST 25 U/L (14-36); African American GFR (CKD) >90 (>60 ml/min/1.73 sqM); Albumin 2.8 g/dL (3.5-5.0); Alkaline Phosphatase 374 U/L (38-126); Amylase 37 U/L (30-110); Anion Gap 9 mmol/L; Blood Urea Nitrogen 16 mg/dL (7-17); Calcium 9.1 mg/dL (8.4-10.2); Carbon Dioxide 24 mmol/L (22-30); Chloride 104 mmol/L (98-107); Glucose 89 mg/dL (74-99); Lipase 36 U/L (23-300); Non-African American GFR(CKD) >90 (>60 ml/min/1.73 sqM); Potassium 3.3 mmol/L (3.5-5.1); Sodium 137 mmol/L (137-145); Total Bilirubin 0.3 mg/dL (0.2-1.3); Total Protein 5.7 g/dL (6.3-8.2)
[2020-12-03 02:56] LABS: Anisocytosis Slight; Basophils % (A) 0 %; Eosinophils # (A) 0.1 k/uL (0-0.7); Eosinophils % (A) 1 %; HCT 27.3 % (34.0-46.0); Hypochromasia Marked; Lymphocytes # (A) 1.6 k/uL (1.0-4.8); Lymphocytes % (A) 18 %; MCH 27.1 pg (25.0-35.0); MCHC 29.8 g/dL (31.0-37.0); MCV 90.7 fL (80.0-100.0); Mean Platelet Volume 7.6; Monocytes # (A) 0.5 k/uL (0-1.0); Monocytes % (A) 5 %; Neutrophils # (A) 6.6 k/uL (1.3-7.7); Neutrophils % (A) 73 %; Platelet Count 412 k/uL (150-450); Poikilocytosis Slight; RBC 3.01 m/uL (3.80-5.40); RDW 18.1 % (11.5-15.5)
[2020-12-03 03:02] LABS: HGB 8.2 gm/dL (11.4-16.0)
[2020-12-03] MEDS ORDERED: SODIUM CHLORIDE 0.9% 500 ML 500 ML IV STA (03:42)
[2020-12-03] MEDS ORDERED: MORPHINE SULFATE 4 MG/ML SYRINGE IV STA (03:42)
[2020-12-03] MEDS ORDERED: ONDANSETRON 4 MG/2 ML VIAL IVP STA (03:59)
--- NOTE | 2020-12-03 04:58 | CT ---
EXAM: CT Abdomen and Pelvis Without Intravenous Contrast CLINICAL HISTORY: ITS.REASON CT Reason: RLQ abdominal pain TECHNIQUE: Axial computed tomography images of the abdomen and pelvis without intravenous contrast. CTDI is 7.17 mGy and DLP is 407.7 mGy-cm. This CT exam was performed using one or more of the following dose reduction techniques: automated exposure control, adjustment of the mA and/or kV according to patient size, and/or use of iterative reconstruction technique. COMPARISON: 11/15/20 and 12/02/20. FINDINGS: Limitations: Evaluation of the abdominal viscera is limited without contrast. Lung bases: Small right pleural effusion with bilateral infiltrates. Incompletely visualized right pneumothorax and right chest wall subcutaneous emphysema, as seen on priors. ABDOMEN: Liver: Hepatomegaly. Gallbladder and bile ducts: Distended gallbladder. Pancreas: Unremarkable. Spleen: Unremarkable. Adrenals: Unremarkable. Kidneys and ureters: Punctate left nephrolithiasis. No hydronephrosis or ureteral stone. Stomach and bowel: Fluid in small bowel loops, nonspecific, can be seen with enteritis in the appropriate clinical setting. Moderate stool in the colon. PELVIS: Appendix: Visualized portions of the appendix appear normal in caliber. Bladder: Unremarkable. Reproductive: Unremarkable as visualized. ABDOMEN and PELVIS: Intraperitoneal space: No free air. Bones/joints: Disc protrusion at L5-S1. Soft tissues: Bilateral breast implants. Vasculature: Unremarkable. Lymph nodes: Unremarkable. IMPRESSION: 1. Fluid in small bowel loops, nonspecific, can be seen with enteritis in the appropriate clinical setting. 2. Distended gallbladder. Ultrasound may be considered if indicated. 3. Additional findings, as above.
[2020-12-03 05:29] LABS: Appearance,Urine Clear (Clear); Bilirubin,Urine Negative (Negative); Blood,Urine Negative (Negative); Color,Urine Yellow; Glucose,Urine (UA) Negative (Negative); Ketones,Urine Negative (Negative); Leukocyte Esterase,Urine Negative (Negative); Nitrite,Urine Negative (Negative); Protein,Urine Trace (Negative); Specific Gravity,Urine 1.015 (1.001-1.035); Urobilinogen,Urine <2.0 mg/dL (<2.0)
[2020-12-03] MEDS ORDERED: HYDROmorphone 0.5 MG/0.5 ML SYRINGE IVP STA (06:27)
--- NOTE | 2020-12-03 07:17 | ED ---
Abdominal Pain HPI - General Source: patient Mode of arrival: wheelchair Limitations: no limitations - History of Present Illness MD Complaint: abdominal pain -: hour(s) Location: RLQ, R flank Radiation: none Migration to: no migration Severity: severe Quality: sharp Consistency: constant Improves With: nothing Worsens With: nothing Associated Symptoms: nausea, vomiting <Gaudencio Sams - Last Filed: 12/03/20 07:18> <Per Bingham - Last Filed: 12/03/20 08:09> - General Chief Complaint: Abdominal Pain Stated Complaint: abdominal pain Time Seen by Provider: 12/03/20 03:15 - History of Present Illness Initial Comments: is a 39-year-old woman who presents with the acute onset of sharp right- sided the abdomen and flank pain. Patient states that it woke her from sleep tonight. The pain was sharp, constant, severe. She had nausea and vomiting. Patient states she had gone to bed feeling okay. The patient states that she does not feel this is related to a chest tube that she had while she was in the hospital was severe covid infection. She states she does have some residual pain in the right costal margin, where the chest tube was inserted. She states the pain she is having today is much lower than that in the abdomen. The patient states she does continue to have a little bit of cough related to the Covid pneumonia that she had but no new sputum. No fever or chills. Patient has not noted change in urination or bowel movements. (Gaudencio Sams) - Related Data Home Medications Medication Instructions Recorded Confirmed Cetirizine HCl [Zyrtec] 10 mg PO DAILY PRN 02/26/20 11/04/20 DULoxetine HCL [Cymbalta] 60 mg PO DAILY 02/26/20 11/04/20 buPROPion XL [Wellbutrin XL] 150 mg PO DAILY 08/14/20 11/04/20 ARIPiprazole [Abilify] 7.5 mg PO DAILY 11/04/20 11/04/20 Albuterol Sulfate [Proair Hfa] 2 puff INHALATION RT-Q4H PRN 11/04/20 11/04/20 Benzonatate [Tessalon Perles] 200 mg PO TID 11/04/20 11/04/20 Cholecalciferol [Vitamin D3 (25 25 mcg PO DAILY 11/04/20 11/04/20 Mcg = 1000 Iu)] Cyclobenzaprine [Flexeril] 5 - 10 mg PO TID PRN 11/04/20 11/04/20 Fluticasone Nasal [place] [Flonase 1 - 2 spr EA NOSTRIL Q48H PRN 11/04/20 11/04/20 Nasal [place]] Fluticasone/Salmeterol [Advair 1 puff INHALATION RT-BID 11/04/20 11/04/20 250-50 Diskus] Pantoprazole Sodium [Protonix] 40 mg PO DAILY 11/04/20 11/04/20 Propranolol LA [Inderal LA] 60 mg PO DAILY 11/04/20 11/04/20 Triamcinolone 0.1% Cream [Kenalog 1 applic TOPICAL BID 11/04/20 11/04/20 0.1% Cream] busPIRone HCl [Buspar] 10 mg PO BID PRN 11/04/20 11/04/20 Previous Rx's Medication Instructions Recorded Acetaminophen Tab [Tylenol] 650 mg PO Q6HR PRN tab 08/16/20 Sucralfate [Carafate] 1 gm PO ACHS #60 tab 08/16/20 Amitriptyline HCl [Elavil] 10 mg PO HS #30 tab 11/29/20 Ascorbic Acid [Vitamin C] 1,000 mg PO DAILY tab 11/29/20 Melatonin 6 mg PO HS tablet 11/29/20 Topiramate [Topamax] 25 mg PO DAILY #30 tab 11/29/20 Zinc Sulfate [Orazinc] 220 mg PO DAILY cap 11/29/20 oxyCODONE-APAP 5-325MG [Percocet 1 each PO Q4HR PRN #18 tab 11/29/20 5-325 mg] predniSONE 5 mg PO DAILY #2 tab 11/29/20 Allergies Allergy/AdvReac Type Severity Reaction Status Date / Time adhesive Allergy Rash/Hives Verified 12/03/20 01:48 latex Allergy Rash/Hives Verified 12/03/20 01:48 prochlorperazine Allergy Unknown Verified 12/03/20 01:48 [From Compazine] ciprofloxacin [From Cipro] AdvReac Hallucinati Verified 12/03/20 01:48 ons citalopram [From Celexa] AdvReac Suicidal Verified 12/03/20 01:48 thoughts diazepam [From Valium] AdvReac Hallucinati Verified 12/03/20 01:48 ons/Anxiety fluoxetine [From Prozac] AdvReac Suicidal Verified 12/03/20 01:48 thoughts metoclopramide [From Reglan] AdvReac Hallucinati Verified 12/03/20 01:48 ons/Anxiety paroxetine [From Paxil] AdvReac Suicidal Verified 12/03/20 01:48 thoughts Penicillins AdvReac Nausea & Verified 12/03/20 01:48 Vomiting Review of Systems ROS Other: All systems not noted in ROS Statement are negative. <Gaudencio Sams - Last Filed: 12/03/20 07:18> ROS Other: All systems not noted in ROS Statement are negative. <Per Bingham - Last Filed: 12/03/20 08:09> ROS Statement: Those systems with pertinent positive or pertinent negative responses have been documented in the HPI. Past Medical History Past Medical History: Asthma, Fibromyalgia, GERD/Reflux, GI Bleed Additional Past Medical History / Comment(s): Pt tested covid + on 10/30/20 at [facility]. Other hx: Primary immunodeficiency, antral ulcers, GI bleed associated with excedrin/noninflammatory medication use, anemia, IBS, migraines, back pain, TMJ, seasonal allergies. History of Any Multi-Drug Resistant Organisms: None Reported Past Surgical History: Breast Surgery, Ear Surgery, Uterine Ablation Additional Past Surgical History / Comment(s): EGDs, colonoscopies, bilateral breast augmentation, septoplasty, L ear trauma/reattached. Past Anesthesia/Blood Transfusion Reactions: No Reported Reaction, Motion Sickness Additional Past Anesthesia/Blood Transfusion Reaction / Comment(s): Pt has received blood in past without reaction. Past Psychological History: ADD/ADHD, Anxiety, Bipolar, Depression, PTSD Smoking Status: Current every day smoker, Vaper Past Alcohol Use History: Abuse Past Drug Use History: None Reported - Past Family History Father Additional Family Medical History / Comment(s): Father at age 51 from accidental drug overdose. Mother Family Medical History: Fibromyalgia Additional Family Medical History / Comment(s): Mother is alive at age 61 with history of primary immunodeficiency. Brother(s) Additional Family Medical History / Comment(s): Patient has one brother with history of alcohol abuse. Patient does not have any sisters. Patient has 2 children with no major medical problems. <Gaudencio Sams - Last Filed: 12/03/20 07:18> General Exam Limitations: no limitations General appearance: alert, in no apparent distress Head exam: Present: atraumatic, normocephalic Eye exam: Present: normal appearance. Absent: scleral icterus, conjunctival injection ENT exam: Present: normal oropharynx Neck exam: Present: normal inspection Respiratory exam: Present: rales (Bilateral), chest wall tenderness, other (Patient's right-sided chest tube sites have normal appearance at this time. No abnormal erythema, warmth or drainage. There is mild localized tenderness.). Absent: respiratory distress, wheezes, rhonchi, stridor, accessory muscle use Cardiovascular Exam: Present: regular rate, normal rhythm, normal heart sounds. Absent: systolic murmur, diastolic murmur, rubs, gallop GI/Abdominal exam: Present: soft, tenderness, normal bowel sounds. Absent: distended, guarding, rebound, rigid, mass, pulsatile mass, hernia Extremities exam: Present: normal inspection, normal capillary refill. Absent: pedal edema, calf tenderness Back exam: Present: normal inspection. Absent: CVA tenderness (R), CVA tenderness (L) Neurological exam: Present: alert Skin exam: Present: warm, dry, intact, normal color. Absent: rash <Gaudencio Sams - Last Filed: 12/03/20 07:18> Course Vital Signs 12/03/20 12/03/20 01:49 06:14 Temperature 98.3 F Pulse Rate 106 H 95 Respiratory 18 16 Rate Blood Pressure 99/64 100/68 O2 Sat by Pulse 90 L 100 Oximetry Medical Decision Making - Lab Data Result diagrams: 12/03/20 02:24 12/03/20 02:24 <Gaudencio Sams - Last Filed: 12/03/20 07:18> - Lab Data Result diagrams: 12/03/20 02:24 12/03/20 02:24 - Radiology Data Radiology results: report reviewed (: Her ultrasound shows borderline common bile duct at 6 mm. Hydropic gallbladder.), image reviewed (Computed tomography scan of the abdomen pelvis shows distended gallbladder. Additional findings. Fluid and small bowel loops. Lung changes consistent with chronic virus infection.) <Per Bingham - Last Filed: 12/03/20 08:09> - Medical Decision Making Patient reevaluated and reexamined by myself, Dr. Bingham. Patient resting comfortably in bed. Abdomen is soft with mild tenderness right upper quadrant. Patient updated on results. Case was discussed in detail with Dr. Qureshi who is comfortable with discharge of patient and will follow-up. She does recommend patient have HIDA scan. Patient updated (Per Bingham) - Lab Data Lab Results 12/03/20 12/03/20 12/03/20 Range/Units 02:19 02:19 02:24 WBC 9.0 (3.8-10.6) k/uL RBC 3.01 L (3.80-5.40) m/uL Hgb 8.2 L D (11.4-16.0) gm/dL Hct 27.3 L (34.0-46.0) % MCV 90.7 (80.0-100.0) fL MCH 27.1 (25.0-35.0) pg MCHC 29.8 L (31.0-37.0) g/dL RDW 18.1 H (11.5-15.5) % Plt Count 412 (150-450) k/uL MPV 7.6 Neutrophils % 73 % Lymphocytes % 18 % Monocytes % 5 % Eosinophils % 1 % Basophils % 0 % Neutrophils # 6.6 (1.3-7.7) k/uL Lymphocytes # 1.6 (1.0-4.8) k/uL Monocytes # 0.5 (0-1.0) k/uL Eosinophils # 0.1 (0-0.7) k/uL Basophils # 0.0 (0-0.2) k/uL Hypochromasia Marked Poikilocytosis Slight Anisocytosis Slight Sodium (137-145) mmol/L Potassium (3.5-5.1) mmol/L Chloride (98-107) mmol/L Carbon Dioxide (22-30) mmol/L Anion Gap mmol/L BUN (7-17) mg/dL Creatinine (0.52-1.04) mg/dL Est GFR (CKD-EPI)AfAm (>60 ml/min/1.73 sqM) Est GFR (CKD-EPI)NonAf (>60 ml/min/1.73 sqM) Glucose (74-99) mg/dL Plasma Lactic Acid Domo (0.7-2.0) mmol/L Calcium (8.4-10.2) mg/dL Total Bilirubin (0.2-1.3) mg/dL AST (14-36) U/L ALT (4-34) U/L Alkaline Phosphatase (38-126) U/L Total Protein (6.3-8.2) g/dL Albumin (3.5-5.0) g/dL Amylase (30-110) U/L Lipase (23-300) U/L Urine Color Yellow Urine Appearance Clear (Clear) Urine pH 6.0 (5.0-8.0) Ur Specific [place] 1.015 (1.001-1.035) Urine Protein Trace H (Negative) Urine Glucose (UA) Negative (Negative) Urine Ketones Negative (Negative) Urine Blood Negative (Negative) Urine Nitrite Negative (Negative) Urine Bilirubin Negative (Negative) Urine Urobilinogen <2.0 (<2.0) mg/dL Ur Leukocyte Esterase Negative (Negative) Urine HCG, Qual Not Detected (Not Detectd) 12/03/20 12/03/20 Range/Units 02:24 02:24 WBC (3.8-10.6) k/uL RBC (3.80-5.40) m/uL Hgb (11.4-16.0) gm/dL Hct (34.0-46.0) % MCV (80.0-100.0) fL MCH (25.0-35.0) pg MCHC (31.0-37.0) g/dL RDW (11.5-15.5) % Plt Count (150-450) k/uL MPV Neutrophils % % Lymphocytes % % Monocytes % % Eosinophils % % Basophils % % Neutrophils # (1.3-7.7) k/uL Lymphocytes # (1.0-4.8) k/uL Monocytes # (0-1.0) k/uL Eosinophils # (0-0.7) k/uL Basophils # (0-0.2) k/uL Hypochromasia Poikilocytosis Anisocytosis Sodium 137 (137-145) mmol/L Potassium 3.3 L (3.5-5.1) mmol/L Chloride 104 (98-107) mmol/L Carbon Dioxide 24 (22-30) mmol/L Anion Gap 9 mmol/L BUN 16 (7-17) mg/dL Creatinine 0.54 (0.52-1.04) mg/dL Est GFR (CKD-EPI)AfAm >90 (>60 ml/min/1.73 sqM) Est GFR (CKD-EPI)NonAf >90 (>60 ml/min/1.73 sqM) Glucose 89 (74-99) mg/dL Plasma Lactic Acid Domo 2.0 (0.7-2.0) mmol/L Calcium 9.1 (8.4-10.2) mg/dL Total Bilirubin 0.3 (0.2-1.3) mg/dL AST 25 (14-36) U/L ALT 37 H (4-34) U/L Alkaline Phosphatase 374 H (38-126) U/L Total Protein 5.7 L (6.3-8.2) g/dL Albumin 2.8 L (3.5-5.0) g/dL Amylase 37 (30-110) U/L Lipase 36 (23-300) U/L Urine Color Urine Appearance (Clear) Urine pH (5.0-8.0) Ur Specific [place] (1.001-1.035) Urine Protein (Negative) Urine Glucose (UA) (Negative) Urine Ketones (Negative) Urine Blood (Negative) Urine Nitrite (Negative) Urine Bilirubin (Negative) Urine Urobilinogen (<2.0) mg/dL Ur Leukocyte Esterase (Negative) Urine HCG, Qual (Not Detectd) Disposition <Gaudencio Sams - Last Filed: 12/03/20 07:18> Is patient prescribed a controlled substance at d/c from ED?: No Time of Disposition: 08:07 <Per Bingham - Last Filed: 12/03/20 08:09> Clinical Impression: Biliary colic, Abdominal pain Disposition: HOME SELF-CARE Condition: Stable Instructions (If sedation given, give patient instructions): Abdominal Pain (ED) Additional Instructions: Please do follow-up with your primary care physician in the next day or 2 for recheck. Consider HIDA scan. Also follow-up with surgery, Dr. Qureshi. Return for increased pain, fever, vomiting, worsening or changing symptoms or any other concerns. Avoid large meals and high fat food. Referrals: Patricia Gonzalez MD [Primary Care Provider] - 1-2 days Bandar,Lynette, DO [Doctor of Osteopathic Medicine] - 1-2 days
--- NOTE | 2020-12-03 07:49 | US ---
EXAMINATION TYPE: US abdomen limited DATE OF EXAM: 12/03/2020 COMPARISON: 05/03/2020 CLINICAL HISTORY: 39-year-old female RUQ pain. TECHNIQUE: Multiple sonographic images of the right upper quadrant are obtained. FINDINGS: EXAM MEASUREMENTS: Liver Length: 17.6 cm Gallbladder Wall: 0.2 cm CBD: 5.9 mm Right Kidney: 12.0 x 4.7 x 4.1 cm Pancreas: Most of the pancreas is visualized and shows no gross abnormality. Liver: Borderline in size but with normal homogeneous echotexture. No focal lesion. Gallbladder: Hydropic measuring 10.6 x 4.4 cm. However, there is no abnormal wall thickening, perich olecystic fluid, or shadowing calculi. Evidence for sonographic Montero's sign: neg CBD: Borderline caliber. Right Kidney: No hydronephrosis. IMPRESSION: 1. Borderline dilated bile duct nearing 6 mm. Correlate with alkaline phosphatase and bilirubin level s to exclude early biliary obstruction. 2. Hydropic gallbladder may be due to fasting state. It could also be secondary to bile duct obstruct ion. Again, correlate with alkaline phosphatase and bilirubin levels. No ancillary imaging findings o f acute cholecystitis.
[2020-12-03 08:35] VITALS: BP 105/65; PULSE 80; RESP 17
== END 2020-12-03 08:38 | disposition home or self-care (01) ==
LOC: EC 01:44
DX: K80.50 Calculus of bile duct without cholangitis or cholecystitis without obstruction (principal); J45.909 Unspecified asthma, uncomplicated; K21.9 Gastro-esophageal reflux disease without esophagitis; F41.9 Anxiety disorder, unspecified; F32.9 Major depressive disorder, single episode, unspecified; F17.290 Nicotine dependence, other tobacco product, uncomplicated
CPT/HCPCS: 36415; 80053; 82150; 83605; 83690; 85025; 81003; 81025; 76705; 74176; 99284; 96374; 96375; 96361; J2270; J2405; J1170

== ENCOUNTER 2020-12-03 11:43 | Inpatient (IN) | payer OTHER ==
[2020-12-03] MEDS ORDERED: ALBUTEROL HFA INHALER INHALATION STA (12:04)
[2020-12-03] MEDS ORDERED: ACETAMINOPHEN TAB 325 MG TAB PO PRN ×2 (12:04→16:12)
[2020-12-03] MEDS ORDERED: ACETAMINOPHEN TAB 325 MG TAB PO STA (12:04)
[2020-12-03] MEDS ORDERED: ALBUTEROL HFA INHALER INHALATION PRN ×2 (12:04→16:12)
[2020-12-03] MEDS ORDERED: HYDROmorphone 1 MG/ML 1 ML SYRINGE IVP STA (12:08)
--- NOTE | 2020-12-03 12:11 | ED ---
General Adult HPI - General Chief complaint: Shortness of Breath Stated complaint: low o2/revisit from today Time Seen by Provider: 12/03/20 12:01 Source: patient, RN notes reviewed Mode of arrival: wheelchair Limitations: no limitations - History of Present Illness Initial comments: Patient is a pleasant 39-year-old female returning emergency department with difficulty in breathing. Patient states she was here earlier with abdominal discomfort. Patient states she is still having some abdominal discomfort however the breathing has gotten worse on her. Patient was recently in the hospital with complications associated with Coronavirus infection. Patient did have chest tubes. Patient was just discharged several days ago. Patient states symptoms of dyspnea worsened over the past several hours. Patient states she does feel chilled. - Related Data Home Medications Medication Instructions Recorded Confirmed Cetirizine HCl [Zyrtec] 10 mg PO DAILY PRN 02/26/20 12/03/20 DULoxetine HCL [Cymbalta] 60 mg PO DAILY 02/26/20 12/03/20 buPROPion XL [Wellbutrin XL] 150 mg PO DAILY 08/14/20 12/03/20 ARIPiprazole [Abilify] 7.5 mg PO DAILY 11/04/20 12/03/20 Albuterol Sulfate [Proair Hfa] 2 puff INHALATION RT-Q4H PRN 11/04/20 12/03/20 Benzonatate [Tessalon Perles] 200 mg PO TID 11/04/20 12/03/20 Cholecalciferol [Vitamin D3 (25 25 mcg PO DAILY 11/04/20 12/03/20 Mcg = 1000 Iu)] Cyclobenzaprine [Flexeril] 5 - 10 mg PO TID PRN 11/04/20 12/03/20 Fluticasone Nasal [place] [Flonase 1 - 2 spr EA NOSTRIL Q48H PRN 11/04/20 12/03/20 Nasal [place]] Fluticasone/Salmeterol [Advair 1 puff INHALATION RT-BID 11/04/20 12/03/20 250-50 Diskus] Pantoprazole Sodium [Protonix] 40 mg PO DAILY 11/04/20 12/03/20 Propranolol LA [Inderal LA] 60 mg PO DAILY 11/04/20 12/03/20 Triamcinolone 0.1% Cream [Kenalog 1 applic TOPICAL BID 11/04/20 12/03/20 0.1% Cream] busPIRone HCl [Buspar] 10 mg PO BID PRN 11/04/20 12/03/20 Ondansetron Odt [Zofran Odt] 4 mg PO Q8H PRN 12/03/20 12/03/20 oxyCODONE-APAP 5-325MG [Percocet 1 tab PO Q4HR PRN 12/03/20 12/03/20 5-325 mg] Previous Rx's Medication Instructions Recorded Acetaminophen Tab [Tylenol] 650 mg PO Q6HR PRN tab 08/16/20 Sucralfate [Carafate] 1 gm PO ACHS #60 tab 08/16/20 Amitriptyline HCl [Elavil] 10 mg PO HS #30 tab 11/29/20 Ascorbic Acid [Vitamin C] 1,000 mg PO DAILY tab 11/29/20 Melatonin 6 mg PO HS tablet 11/29/20 Topiramate [Topamax] 25 mg PO DAILY #30 tab 11/29/20 Zinc Sulfate [Orazinc] 220 mg PO DAILY cap 11/29/20 Allergies Allergy/AdvReac Type Severity Reaction Status Date / Time adhesive Allergy Rash/Hives Verified 12/03/20 12:40 latex Allergy Rash/Hives Verified 12/03/20 12:40 prochlorperazine Allergy Unknown Verified 12/03/20 12:40 [From Compazine] ciprofloxacin [From Cipro] AdvReac Hallucinati Verified 12/03/20 12:40 ons citalopram [From Celexa] AdvReac Suicidal Verified 12/03/20 12:40 thoughts diazepam [From Valium] AdvReac Hallucinati Verified 12/03/20 12:40 ons/Anxiety fluoxetine [From Prozac] AdvReac Suicidal Verified 12/03/20 12:40 thoughts metoclopramide [From Reglan] AdvReac Hallucinati Verified 12/03/20 12:40 ons/Anxiety paroxetine [From Paxil] AdvReac Suicidal Verified 12/03/20 12:40 thoughts Penicillins AdvReac Nausea & Verified 12/03/20 12:40 Vomiting Review of Systems ROS Statement: Those systems with pertinent positive or pertinent negative responses have been documented in the HPI. ROS Other: All systems not noted in ROS Statement are negative. Constitutional: Reports: chills Eyes: Denies: eye pain ENT: Denies: ear pain Respiratory: Reports: cough, dyspnea Cardiovascular: Denies: chest pain Endocrine: Reports: fatigue Gastrointestinal: Reports: abdominal pain Genitourinary: Denies: dysuria Musculoskeletal: Denies: back pain Skin: Denies: rash Neurological: Denies: weakness Past Medical History Past Medical History: Asthma, Fibromyalgia, GERD/Reflux, GI Bleed Additional Past Medical History / Comment(s): Pt tested covid + on 10/30/20 at [facility]. Other hx: Primary immunodeficiency, antral ulcers, GI bleed associated with excedrin/noninflammatory medication use, anemia, IBS, migraines, back pain, TMJ, seasonal allergiesm covid + 11/03/2020, History of Any Multi-Drug Resistant Organisms: None Reported Past Surgical History: Breast Surgery, Ear Surgery, Uterine Ablation Additional Past Surgical History / Comment(s): EGDs, colonoscopies, bilateral breast augmentation, septoplasty, L ear trauma/reattached. Past Anesthesia/Blood Transfusion Reactions: No Reported Reaction, Motion Sickness Additional Past Anesthesia/Blood Transfusion Reaction / Comment(s): Pt has received blood in past without reaction. Past Psychological History: ADD/ADHD, Anxiety, Bipolar, Depression, PTSD Smoking Status: Former smoker, Vaper Past Alcohol Use History: Abuse Past Drug Use History: None Reported - Past Family History Father Additional Family Medical History / Comment(s): Father at age 51 from accidental drug overdose. Mother Family Medical History: Fibromyalgia Additional Family Medical History / Comment(s): Mother is alive at age 61 with history of primary immunodeficiency. Brother(s) Additional Family Medical History / Comment(s): Patient has one brother with history of alcohol abuse. Patient does not have any sisters. Patient has 2 children with no major medical problems. General Exam Limitations: no limitations General appearance: alert Head exam: Present: normocephalic Eye exam: Present: normal appearance Neck exam: Present: normal inspection Respiratory exam: Present: respiratory distress, rhonchi Cardiovascular Exam: Present: regular rate, normal rhythm GI/Abdominal exam: Present: soft, tenderness (Mild to moderate tenderness, more so on the right upper abdomen) Extremities exam: Present: normal inspection Neurological exam: Present: alert Psychiatric exam: Present: normal affect, normal mood Skin exam: Present: normal color Course Vital Signs 12/03/20 12/03/20 11:49 12:02 Temperature 98.3 F Pulse Rate 124 H 123 H Respiratory 26 H 45 H Rate Blood Pressure 95/62 O2 Sat by Pulse 95 Oximetry - Reevaluation(s) Reevaluation #1: 12/03/20 12:26 Chest x-ray reviewed. Case discussed with Dr. Davison who also reviewed the chest x-ray. He does not recommend chest tube or Thora vent at this time. He is familiar with this patient. He does recommend admission and computed tomography scan for pulmonary embolism and will consult. EKG Findings - EKG Comments: EKG Findings:: Sinus tachycardia 111. NH 132. QRS 88. QT 314. QTC 427. Normal axis. Normal QRS. Nonspecific ST-T. Medical Decision Making - Medical Decision Making Patient reevaluated and improved with nonrebreather. Patient updated. Case also discussed with Dr. Gonzalez who will admit her patient and would like consults with Dr. Qureshi as well as Dr. Davison and SAMY dhaliwal. - Lab Data Result diagrams: 12/03/20 12:14 12/03/20 12:14 Lab Results 12/03/20 12/03/20 12/03/20 Range/Units 12:14 12:14 12:14 WBC 13.7 H (3.8-10.6) k/uL RBC 2.79 L (3.80-5.40) m/uL Hgb 8.0 L (11.4-16.0) gm/dL Hct 24.9 L (34.0-46.0) % MCV 89.1 (80.0-100.0) fL MCH 28.6 (25.0-35.0) pg MCHC 32.1 (31.0-37.0) g/dL RDW 17.9 H (11.5-15.5) % Plt Count 455 H (150-450) k/uL MPV 7.5 Neutrophils % 82 % Lymphocytes % 12 % Monocytes % 4 % Eosinophils % 1 % Basophils % 0 % Neutrophils # 11.2 H (1.3-7.7) k/uL Lymphocytes # 1.6 (1.0-4.8) k/uL Monocytes # 0.5 (0-1.0) k/uL Eosinophils # 0.1 (0-0.7) k/uL Basophils # 0.0 (0-0.2) k/uL Hypochromasia Moderate Poikilocytosis Slight Anisocytosis Slight PT 11.0 (9.0-12.0) sec INR 1.0 (<1.2) APTT 21.0 L (22.0-30.0) sec Sodium 136 L (137-145) mmol/L Potassium 3.5 (3.5-5.1) mmol/L Chloride 104 (98-107) mmol/L Carbon Dioxide 23 (22-30) mmol/L Anion Gap 9 mmol/L BUN 12 (7-17) mg/dL Creatinine 0.53 (0.52-1.04) mg/dL Est GFR (CKD-EPI)AfAm >90 (>60 ml/min/1.73 sqM) Est GFR (CKD-EPI)NonAf >90 (>60 ml/min/1.73 sqM) Glucose 84 (74-99) mg/dL Plasma Lactic Acid Domo (0.7-2.0) mmol/L Calcium 8.6 (8.4-10.2) mg/dL Magnesium 1.4 L (1.6-2.3) mg/dL Total Bilirubin 0.5 (0.2-1.3) mg/dL AST 25 (14-36) U/L ALT 32 (4-34) U/L Alkaline Phosphatase 343 H (38-126) U/L Lactate Dehydrogenase 925 H (313-618) U/L Total Protein 5.5 L (6.3-8.2) g/dL Albumin 2.7 L (3.5-5.0) g/dL Amylase 36 (30-110) U/L Lipase 31 (23-300) U/L 12/03/20 Range/Units 12:14 WBC (3.8-10.6) k/uL RBC (3.80-5.40) m/uL Hgb (11.4-16.0) gm/dL Hct (34.0-46.0) % MCV (80.0-100.0) fL MCH (25.0-35.0) pg MCHC (31.0-37.0) g/dL RDW (11.5-15.5) % Plt Count (150-450) k/uL MPV Neutrophils % % Lymphocytes % % Monocytes % % Eosinophils % % Basophils % % Neutrophils # (1.3-7.7) k/uL Lymphocytes # (1.0-4.8) k/uL Monocytes # (0-1.0) k/uL Eosinophils # (0-0.7) k/uL Basophils # (0-0.2) k/uL Hypochromasia Poikilocytosis Anisocytosis PT (9.0-12.0) sec INR (<1.2) APTT (22.0-30.0) sec Sodium (137-145) mmol/L Potassium (3.5-5.1) mmol/L Chloride (98-107) mmol/L Carbon Dioxide (22-30) mmol/L Anion Gap mmol/L BUN (7-17) mg/dL Creatinine (0.52-1.04) mg/dL Est GFR (CKD-EPI)AfAm (>60 ml/min/1.73 sqM) Est GFR (CKD-EPI)NonAf (>60 ml/min/1.73 sqM) Glucose (74-99) mg/dL Plasma Lactic Acid Domo 1.6 (0.7-2.0) mmol/L Calcium (8.4-10.2) mg/dL Magnesium (1.6-2.3) mg/dL Total Bilirubin (0.2-1.3) mg/dL AST (14-36) U/L ALT (4-34) U/L Alkaline Phosphatase (38-126) U/L Lactate Dehydrogenase (313-618) U/L Total Protein (6.3-8.2) g/dL Albumin (3.5-5.0) g/dL Amylase (30-110) U/L Lipase (23-300) U/L - Radiology Data Radiology results: report reviewed (Computed tomography scan as discussed with radiologist negative for pulmonary embolism. Right-sided pneumothorax and interstitial lung changes), image reviewed (Chest x-ray shows right-sided pneumothorax and interstitial lung changes) Disposition Clinical Impression: Pneumonia due to COVID-19 virus, Pneumothorax, Abdominal pain Disposition: ADMITTED IP TO THIS [facility] Condition: Serious Is patient prescribed a controlled substance at d/c from ED?: No Referrals: Patricia Gonzalez MD [Primary Care Provider] - 1-2 days Decision Time: 14:06
[2020-12-03] MEDS ORDERED: ONDANSETRON 4 MG/2 ML VIAL IVP STA (12:40)
[2020-12-03 12:50] LABS: ALT 32 U/L (4-34); AST 25 U/L (14-36); African American GFR (CKD) >90 (>60 ml/min/1.73 sqM); Albumin 2.7 g/dL (3.5-5.0); Alkaline Phosphatase 343 U/L (38-126); Amylase 36 U/L (30-110); Anion Gap 9 mmol/L; Blood Urea Nitrogen 12 mg/dL (7-17); Calcium 8.6 mg/dL (8.4-10.2); Carbon Dioxide 23 mmol/L (22-30); Chloride 104 mmol/L (98-107); Glucose 84 mg/dL (74-99); LDH 925 U/L (313-618); Lipase 31 U/L (23-300); Magnesium 1.4 mg/dL (1.6-2.3); Non-African American GFR(CKD) >90 (>60 ml/min/1.73 sqM); Potassium 3.5 mmol/L (3.5-5.1); Sodium 136 mmol/L (137-145); Total Bilirubin 0.5 mg/dL (0.2-1.3); Total Protein 5.5 g/dL (6.3-8.2)
--- NOTE | 2020-12-03 12:50 | XR ---
EXAMINATION TYPE: XR chest 1V portable DATE OF EXAM: 12/03/2020 Comparison: 12/02/2020 Clinical History: 39-year-old female shortness of breath, dyspna Findings: Heart normal size. Patchy and confluent bilateral consolidation has worsened in the interval. Right a pical pneumothorax measures 2.0 cm versus 2.4 cm, previously. Impression: 1. Worsening bilateral airspace disease. 2. Small right apical pneumothorax slightly smaller in size currently at 2.0 cm versus 2.4 cm, previo usly.
[2020-12-03 12:52] LABS: Anisocytosis Slight; Basophils % (A) 0 %; Eosinophils # (A) 0.1 k/uL (0-0.7); Eosinophils % (A) 1 %; HCT 24.9 % (34.0-46.0); Hypochromasia Moderate; Lymphocytes # (A) 1.6 k/uL (1.0-4.8); Lymphocytes % (A) 12 %; MCH 28.6 pg (25.0-35.0); MCHC 32.1 g/dL (31.0-37.0); MCV 89.1 fL (80.0-100.0); Mean Platelet Volume 7.5; Monocytes # (A) 0.5 k/uL (0-1.0); Monocytes % (A) 4 %; Neutrophils # (A) 11.2 k/uL (1.3-7.7); Neutrophils % (A) 82 %; Platelet Count 455 k/uL (150-450); Poikilocytosis Slight; RBC 2.79 m/uL (3.80-5.40); RDW 17.9 % (11.5-15.5); WBC 13.7 k/uL (3.8-10.6)
--- NOTE | 2020-12-03 12:52 | XR ---
EXAMINATION TYPE: XR abdomen 1V DATE OF EXAM: 12/03/2020 Comparison: Correlation CT same day Clinical History: 39-year-old female pain Findings: Supine imaging limited for assessment of free air. Nonobstructive bowel gas pattern. Scattered gas in small bowel. Mild overall stone burden. No suspicious calcifications seen. Some type of retained for eign body material or calcification is present in the lateral soft tissues adjacent to the left iliac crest. This measures 6 mm. Clinically correlate. Impression: Nonobstructive bowel gas pattern. Mild stool burden. Some type of retained foreign body or calcificat ion measuring 6 mm projects in the lateral soft tissues at the level of the left iliac crest.
--- NOTE | 2020-12-03 13:50 | CT ---
CT CHEST FOR PULMONARY EMBOLISM. EXAMINATION TYPE: CT angio chest DATE OF EXAM: 12/03/2020 INDICATION: dyspnea CT DLP: 228.2 mGycm, Automated exposure control for dose reduction was used. CONTRAST: Patient injected with 100 mL of Isovue 370. COMPARISON: 11/16/2019 left TECHNIQUE: CT of the chest is performed on a spiral scan at 2 mm thick sections. Study is performed with intravenous contrast timed for evaluation for pulmonary embolism. This will limit additional po rtions of the evaluation. 3-D MIP images reconstructed by the technologist are reviewed on the compu ter in the coronal and sagittal planes. FINDINGS: No persistent filling defects are evident to suggest an acute pulmonary embolism. No mediastinal or hilar adenopathy enlarged by CT criteria is evident. The ascending aorta diameter at the level of the main pulmonary artery is 2.5 cm. The main pulmonary artery diameter at the bifur cation is 3.4 cm. Correlate for pulmonary hypertension. There is a small right pleural effusion. Diffuse patchy infiltrate is present bilaterally. Small righ t pneumothorax is present. This is smaller than the comparison of 11/15/2020 Subcutaneous emphysema is present on the right. Extensive infiltrate is present. This was present previously and is slight improvement. Limited CT section through the upper abdomen are unremarkable. IMPRESSIONS: 1. No acute pulmonary embolism. 2. Small right pneumothorax. 3. Extensive infiltrate to the bilateral lungs. Findings are compatible with atypical pneumonia. 4. Report was called to the emergency room physician by Dr. Kimbrough. Time of interpretation.
[2020-12-03] MEDS ORDERED: NALOXONE 0.4 MG/ML 1 ML VIAL IV PRN (14:10)
[2020-12-03] MEDS ORDERED: ONDANSETRON 4 MG/2 ML VIAL IVP PRN (14:10)
[2020-12-03] MEDS ORDERED: ZINC SULFATE 220 MG CAP PO SCH (14:15)
[2020-12-03] MEDS: ASCORBIC ACID 500 MG TAB PO SCH (14:36)
[2020-12-03] MEDS: CHOLECALCIFEROL 25 MCG (1000 IU) TABLET PO SCH (14:37)
[2020-12-03] MEDS: ENOXAPARIN 40 MG/0.4 ML SYRINGE SQ SCH (14:38)
[2020-12-03] MEDS: DEXAMETHASONE SOD PHOSPHATE 10 MG/ML 1 ML VIAL IV SCH (14:38)
[2020-12-03 14:58] LABS: C Reactive Protein 26.4 mg/dL (<1.0)
[2020-12-03] MEDS ORDERED: ONDANSETRON ODT 4 MG TAB PO PRN (16:12)
[2020-12-03] MEDS ORDERED: CYCLOBENZAPRINE 5 MG TAB PO PRN (16:12)
[2020-12-03] MEDS ORDERED: busPIRone HCl 10 MG TAB PO PRN (16:12)
--- NOTE | 2020-12-03 16:19 | P.HPIM ---
History of Present Illness H&P Date: 12/03/20 Chief Complaint: Shortness of breath This is a 39-year-old female patient of Dr. Gonzalez with past medical history of GI bleed in 2008, July 2020 was admitted for GI bleed secondary to 2 nonbleeding antral ulcers requiring transfusion 2 units packed RBCs, tobacco use, alcohol abuse, recurrent depression, generalized anxiety disorder. Patient was diagnosed with COVID-19 on October 30. She had lengthy admission, for which she required hospitalization until November 29 2020. She had complications from COVID-19 include ventilation intubation for respiratory failure, after she failed BiPAP treatments, she received Tocilizumab infusion, she has pulmonary to see show pneumonia, and severe pulmonary interstitial and airspace edema, she required chest tube placements bilaterally, she had 3 spontaneous pneumothoraces, negative for pulmonary emboli, she did not require pressors, at that time, right chest tube was placed on November 06, it November 08, and November 25, left chest tube, November 07 that she was seen by Dr. Conn during the last admission, and Dr. Tapia cardiothoracic her chest tube was removed on November 27 right . The patient went home on room air, no oxygen requirements needed home therapies provided She has chronic anemia of chronic disease, history of bleeding ulcers no alcohol abuse, primary immune deficiency state, recurrent depression general since IT di sorder, mild intermittent bronchial asthma, and migraines tobacco use, sepsis with MSSA bacteremia with MSSA pneumonia, moderate protein calorie malnutrition, GERD, thrush, She was seen in emergency room on December 01 she thought that she had dehiscence of the wound, the stitches was accidentally broken when the lifted her up and her arms up. There was no shortness of breath at that time, now she comes back December 03, with significant sharp right-sided abdominal pain, that woke her from her sleep.secondary to right upper quadrant right lower quadrant abdominal pain, without any migration, she was discharged, with outpatient workup for gallbladder colic for which consultation was made with Dr. Portillo. Labs at that time, shows no leukocytosis, she is anemic at 8.2, low potassium at 3.3, platelets normal at 412, radiology shows ultrasound borderline common bile duct at 6 mm, hydropic gallbladder, fluid filled small bowel loops, lung changes consistent with chronic bilateral infection, there is slight worsening of the right pneumothorax, no amount twice calculated from radiology for severity . Patient was discharged, to have an outpatient HIDA scan. Patient now comes back 5 hours later, with difficulty breathing. Symptoms of dyspnea has worsened, over the past several hours, and has some chills. Patient's no admitted, with consultation to pulmonary. Chest x-ray was reviewed by Dr. Davison, for which he did not recommend chest tube placement at this time, carotid markers are elevated, worse from November 23, LDH 925, CRP 26, lipase normal 31, Covid test negative from November 23 UCG negative computed tomography scan as requested no pulmonary emboli on CTA, small right pneumothorax, extensive infiltrate bilateral lungs, compatible with atypical pneumonia, pulmonary artery diameter at the bifurcation is 2.4 cm, correlate for pulmonary hypertension, subcutaneous and eczema on the right side. She is now on 7 L NC o2 sat 94% bp at 90/53 Review of Systems Constitutional: Reports as per HPI, Denies anorexia, Denies chills, Denies chronic headaches, Denies chronic pain, Denies daytime sleepiness, Denies fatigue, Denies fever, Denies lethargy, Denies malaise, Denies night sweats, Denies poor appetite, Denies sweats, Denies weakness, Denies weight gain, Denies weight loss Ears, nose, mouth and throat: Denies as per HPI, Denies ant. neck pain, Denies bleeding gums, Denies dental pain, Denies dysphagia, Denies epistaxis, Denies headache, Denies hoarseness, Denies mouth pain, Denies nasal congestion, Denies nasal discharge, Denies neck fullness/pressure, Denies neck lump, Denies nose pain, Denies odynophagia, Denies post-nasal drip, Denies sinus pain, Denies sinus pressure, Denies swelling in mouth, Denies swelling in throat, Denies sore throat, Denies vertigo, Denies voice changes Cardiovascular: Reports as per HPI, Reports claudication, Reports dyspnea on exertion, Reports lightheadedness, Reports orthopnea, Reports shortness of breath Respiratory: Reports as per HPI, Reports cough, Denies congestion, Denies cough with sputum, Denies dyspnea, Denies excessive sputum, Denies hemoptysis, Denies home oxygen, Denies pain, Denies pain on inspiration, Denies pleurisy, Denies respiratory infections, Denies sleep apnea, Denies snoring, Denies wheezing Gastrointestinal: Reports as per HPI Genitourinary: Reports as per HPI Menstruation: Reports as per HPI Musculoskeletal: Reports as per HPI Integumentary: Reports as per HPI Neurological: Reports as per HPI, Reports headaches Psychiatric: Reports as per HPI Endocrine: Reports as per HPI Hematologic/Lymphatic: Reports as per HPI, Reports easy bruising Allergic/Immunologic: Reports as per HPI, Reports persistent infections Past Medical History Past Medical History: Asthma, Fibromyalgia, GERD/Reflux, GI Bleed Additional Past Medical History / Comment(s): Pt tested covid + on 10/30/20 at [facility]. Other hx: Primary immunodeficiency, antral ulcers, GI bleed associated with excedrin/noninflammatory medication use, anemia, IBS, migraines, back pain, TMJ, seasonal allergiesm covid + 11/03/2020, History of Any Multi-Drug Resistant Organisms: None Reported Past Surgical History: Breast Surgery, Ear Surgery, Uterine Ablation Additional Past Surgical History / Comment(s): EGDs, colonoscopies, bilateral breast augmentation, septoplasty, L ear trauma/reattached. Past Anesthesia/Blood Transfusion Reactions: No Reported Reaction, Motion Sickness Additional Past Anesthesia/Blood Transfusion Reaction / Comment(s): Pt has received blood in past without reaction. Past Psychological History: ADD/ADHD, Anxiety, Bipolar, Depression, PTSD Smoking Status: Former smoker, Vaper Past Alcohol Use History: Abuse Past Drug Use History: None Reported - Past Family History Father Additional Family Medical History / Comment(s): Father at age 51 from accidental drug overdose. Mother Family Medical History: Fibromyalgia Additional Family Medical History / Comment(s): Mother is alive at age 61 with history of primary immunodeficiency. Brother(s) Additional Family Medical History / Comment(s): Patient has one brother with history of alcohol abuse. Patient does not have any sisters. Patient has 2 children with no major medical problems. Medications and Allergies Home Medications Medication Instructions Recorded Confirmed Type Cetirizine HCl [Zyrtec] 10 mg PO DAILY PRN 02/26/20 12/03/20 History DULoxetine HCL [Cymbalta] 60 mg PO DAILY 02/26/20 12/03/20 History buPROPion XL [Wellbutrin XL] 150 mg PO DAILY 08/14/20 12/03/20 History Acetaminophen Tab [Tylenol] 650 mg PO Q6HR PRN tab 08/16/20 12/03/20 Rx Sucralfate [Carafate] 1 gm PO ACHS #60 tab 08/16/20 12/03/20 Rx ARIPiprazole [Abilify] 7.5 mg PO DAILY 11/04/20 12/03/20 History Albuterol Sulfate [Proair Hfa] 2 puff INHALATION RT-Q4H PRN 11/04/20 12/03/20 History Benzonatate [Tessalon Perles] 200 mg PO TID 11/04/20 12/03/20 History Cholecalciferol [Vitamin D3 (25 25 mcg PO DAILY 11/04/20 12/03/20 History Mcg = 1000 Iu)] Cyclobenzaprine [Flexeril] 5 - 10 mg PO TID PRN 11/04/20 12/03/20 History Fluticasone Nasal [place] [Flonase 1 - 2 spr EA NOSTRIL Q48H PRN 11/04/20 12/03/20 History Nasal [place]] Fluticasone/Salmeterol [Advair 1 puff INHALATION RT-BID 11/04/20 12/03/20 History 250-50 Diskus] Pantoprazole Sodium [Protonix] 40 mg PO DAILY 11/04/20 12/03/20 History Propranolol LA [Inderal LA] 60 mg PO DAILY 11/04/20 12/03/20 History Triamcinolone 0.1% Cream [Kenalog 1 applic TOPICAL BID 11/04/20 12/03/20 History 0.1% Cream] busPIRone HCl [Buspar] 10 mg PO BID PRN 11/04/20 12/03/20 History Amitriptyline HCl [Elavil] 10 mg PO HS #30 tab 11/29/20 12/03/20 Rx Ascorbic Acid [Vitamin C] 1,000 mg PO DAILY tab 11/29/20 12/03/20 Rx Melatonin 6 mg PO HS tablet 11/29/20 12/03/20 Rx Topiramate [Topamax] 25 mg PO DAILY #30 tab 11/29/20 12/03/20 Rx Zinc Sulfate [Orazinc] 220 mg PO DAILY cap 11/29/20 12/03/20 Rx Ondansetron Odt [Zofran Odt] 4 mg PO Q8H PRN 12/03/20 12/03/20 History oxyCODONE-APAP 5-325MG [Percocet 1 tab PO Q4HR PRN 12/03/20 12/03/20 History 5-325 mg] Allergies Allergy/AdvReac Type Severity Reaction Status Date / Time adhesive Allergy Rash/Hives Verified 12/03/20 12:40 latex Allergy Rash/Hives Verified 12/03/20 12:40 prochlorperazine Allergy Unknown Verified 12/03/20 12:40 [From Compazine] ciprofloxacin [From Cipro] AdvReac Hallucinati Verified 12/03/20 12:40 ons citalopram [From Celexa] AdvReac Suicidal Verified 12/03/20 12:40 thoughts diazepam [From Valium] AdvReac Hallucinati Verified 12/03/20 12:40 ons/Anxiety fluoxetine [From Prozac] AdvReac Suicidal Verified 12/03/20 12:40 thoughts metoclopramide [From Reglan] AdvReac Hallucinati Verified 12/03/20 12:40 ons/Anxiety paroxetine [From Paxil] AdvReac Suicidal Verified 12/03/20 12:40 thoughts Penicillins AdvReac Nausea & Verified 12/03/20 12:40 Vomiting Physical Exam Vitals: Vital Signs Temp Pulse Resp BP Pulse Ox 12/03/20 14:18 102 H 34 H 90/53 94 L 12/03/20 12:02 45 H 12/03/20 11:49 98.3 F 124 H 26 H 95/62 Intake and Output 12/03/20 12/03/20 12/03/20 06:59 14:59 22:59 Other: Weight 57.606 kg - Constitutional General appearance: cooperative, no acute distress - EENT Eyes: edentulous, PERRLA, normal appearance ENT: NA/AT, normal oropharynx - Neck Neck: normal ROM - Respiratory Respiratory: bilateral: CTA, diminished - Cardiovascular Rhythm: regular Heart sounds: normal: S1, S2 Abnormal Heart Sounds: no systolic murmur, no diastolic murmur, no rub, no S3 Gallop, no S4 Gallop, no click, no other - Gastrointestinal General gastrointestinal: normal bowel sounds, soft - Integumentary Integumentary: decreased turgor, normal - Neurologic Neurologic: CNII-XII intact Results CBC & Chem 7: 12/03/20 12:14 12/03/20 12:14 Labs: Abnormal Lab Results - Last 24 Hours (Table) 12/03/20 12/03/20 12/03/20 Range/Units 12:14 12:14 12:14 WBC 13.7 H (3.8-10.6) k/uL RBC 2.79 L (3.80-5.40) m/uL Hgb 8.0 L (11.4-16.0) gm/dL Hct 24.9 L (34.0-46.0) % RDW 17.9 H (11.5-15.5) % Plt Count 455 H (150-450) k/uL Neutrophils # 11.2 H (1.3-7.7) k/uL APTT 21.0 L (22.0-30.0) sec Sodium 136 L (137-145) mmol/L Magnesium 1.4 L (1.6-2.3) mg/dL Alkaline Phosphatase 343 H (38-126) U/L Lactate Dehydrogenase 925 H (313-618) U/L C-Reactive Protein 26.4 H (<1.0) mg/dL Total Protein 5.5 L (6.3-8.2) g/dL Albumin 2.7 L (3.5-5.0) g/dL Thrombosis Risk Factor Assmnt - DVT/VTE Prophylaxis DVT/VTE Prophylaxis: Pharmacologic Prophylaxis ordered - Choose All That Apply Each Factor Represents 1 point: Age 41-60 years, Sepsis (< 1month), Serious lung disease incl. pneumonia (< 1month) Thrombosis Risk Factor Assessment Total Risk Factor Score: 3 Thrombosis Risk Factor Assessment Level: Moderate Risk Assessment and Plan Plan: 1. Acute hypoxic respiratory failure secondary to recent Covid 19 pneumonia diagnosed with,prior MSSA pneumonia, current right pneumothorax, CTA failed to reveal any pulmonary emboli, has smoked right pleural effusion, small pneumothorax, serial chest imaging, to monitor for the pneumothorax right side, Dr. Davison has been consulted 2. Right sided pneumothorax requiring chest tube 11/06, 11/08, 11/25 last Imitrex was discontinued on November 27. , continue only Percocet for pain control. Toradol for chest discomfort. 3. Acute exacerbation of mild intermittent bronchial asthma. Continue Ventolin inhaler 4 times daily as needed. 4. Recurrent depression and generalized anxiety disorder: She is on multiple medication between BuSpar, Abilify, Wellbutrin and Cymbalta 5. Primary immunodeficiency, stable. Check for immunoglobulin IgG A and M 6. Chronic anemia of chronic disease most likely due to history of bleeding ulcers and alcohol abuse. 7. Tobacco use and dependence including vaping. 8. Daily alcohol use/abuse. Stable. No episodes of DVT during the last admission, 9. Debility: Continue physical therapy. 10. Acute anemia secondary to sepsis without blood loss. S/p transfusion of 1 unit of packed RBCs. 11. Migraine headaches. Continue Inderal 60 mg daily. No Fioricet secondary to insomnia, continue on Topamax, Elavil 12. Sepsis with MSSA bacteremia, resolved continue to monitor for relapsing sepsis 13. Moderate protein calorie malnutrition. 14. Gastroesophageal reflux disease with history of bleeding ulcers. Continue Protonix 40 mg twice daily and Carafate 1 g 4 times daily. 15. Tachycardia. Patient resumed on Inderal, . 16. Thrush. Patient continue on nystatin. 17. Insomnia. Add Elavil 10 mg at bedtime. 18. DVT prophylaxis. Lovenox.
--- NOTE | 2020-12-03 18:38 | NM ---
EXAMINATION TYPE: NM hepatobiliary w CCK DATE OF EXAM: 12/03/2020 COMPARISON: NONE HISTORY: Abdominal pain TECHNIQUE: After the intravenous administration of 4.3 mCi Tc 99m Mebrofenin hepatobiliary scintigrap hy is performed. Immediate images post injection. FINDINGS: There is satisfactory initial accumulation of tracer by the liver. The gallbladder is visualized wit hin 10 minutes. The small bowel activity is noted within 20 minutes. At one hour CCK was administer ed, patient was injected with 1.2 mcg of Kinevac, and gallbladder ejection fraction is calculated at 51 %, in the normal range. Therefore there is no scintigraphic evidence of cystic or common bile jose t obstruction to suggest acute cholecystitis or gallbladder dyskinesia. There is no focal liver defec t. IMPRESSION: Gallbladder ejection fraction is 51% which is within normal limits.
[2020-12-03] MEDS: HYDROmorphone 1 MG/ML 1 ML SYRINGE IVP PRN (18:48)
--- NOTE | 2020-12-03 18:49 | P.CNPUL ---
History of Present Illness Consult date: 12/03/20 Reason for consult: dyspnea, pneumonia, pneumothorax History of present illness: 39-year-old. Patient is well-known to me as the patient was hospitalized around 3 weeks ago for bilateral pneumonia related to COVID-19 infection complicated by respiratory failure, requiring intubation mechanical ventilation and during the course of her treatment the patient developed bilateral pneumothoraces and the patient had bilateral chest tube insertion. Ultimately the patient was weaned off the mechanical ventilator, chest tubes were removed and the patient was discharged home. During the course of her treatment, the patient also became bacteremic with MSSA. She developed significant weakness, and she was also noted is eating for nutritional support. She was discharged home on oxygen 4 L per minute nasal cannula. She came in today to the emergency department complaining of a acute onset pain in her right side of the abdomen somewhat betw een the right upper quadrant and right lower quadrant. CAT scan showed distended gallbladder. There was also some evidence of enteritis. Noted the patient's LFTs were normal including AST and ALT. Alkaline phosphatase was slightly elevated. Bilirubin was normal. Computed tomography scan of the abdomen showed a common bile duct that was done distended measuring 6 mm in size of the gallbladder was hydropic. Upon further questioning, the patient was having diffuse body aches and the patient was drinking tequila large quantities to control her pain. Her amylase and lipase are within normal limits. Her chest x-ray showed diffuse bilateral pulmonary infiltrates and there was some mild enlargement in the right sided pneumonia thorax impaired to the earlier chest x-ray that was done at time of discharge. For that reason, a CTA scan of the chest was done and the CT angiogram showed no evidence of any pulmonary embolism. There was still diffuse bilateral pulmonary infiltrates which were looking somewhat improved. There was also a right-sided pneumothorax around 10- 15% and there was also evidence of bullous changes in the right and the left lungs bilaterally mainly in the lung apices. The patient is on oxygen 4 L per minute nasal cannula. She denies having any hemoptysis. No pleurisy. Review of Systems Constitutional: Reports as per HPI, Denies anorexia, Denies chills, Denies chronic headaches, Denies chronic pain, Denies daytime sleepiness, Denies fatigue, Denies fever, Denies lethargy, Denies malaise, Denies night sweats, Denies poor appetite, Denies sweats, Denies weakness, Denies weight gain, Denies weight loss Ears, nose, mouth and throat: Denies as per HPI, Denies ant. neck pain, Denies bleeding gums, Denies dental pain, Denies dysphagia, Denies epistaxis, Denies headache, Denies hoarseness, Denies mouth pain, Denies nasal congestion, Denies nasal discharge, Denies neck fullness/pressure, Denies neck lump, Denies nose pain, Denies odynophagia, Denies post-nasal drip, Denies sinus pain, Denies sinus pressure, Denies swelling in mouth, Denies swelling in throat, Denies sore throat, Denies vertigo, Denies voice changes Cardiovascular: Reports as per HPI, Reports claudication, Reports dyspnea on exertion, Reports lightheadedness, Reports orthopnea, Reports shortness of breath Respiratory: Reports as per HPI, Reports cough, Denies congestion, Denies cough with sputum, Denies dyspnea, Denies excessive sputum, Denies hemoptysis, Denies home oxygen, Denies pain, Denies pain on inspiration, Denies pleurisy, Denies respiratory infections, Denies sleep apnea, Denies snoring, Denies wheezing Gastrointestinal: Reports as per HPI Genitourinary: Reports as per HPI Menstruation: Reports as per HPI Musculoskeletal: Reports as per HPI Integumentary: Reports as per HPI Neurological: Reports as per HPI, Reports headaches Psychiatric: Reports as per HPI Endocrine: Reports as per HPI Hematologic/Lymphatic: Reports as per HPI, Reports easy bruising Allergic/Immunologic: Reports as per HPI, Reports persistent infections Past Medical History Past Medical History: Asthma, Fibromyalgia, GERD/Reflux, GI Bleed Additional Past Medical History / Comment(s): Pt tested covid + pneumonia diagnosed on 10/30/2020 complicated by respiratory failure, intubation, mechanical ventilation, bilateral pneumothoraces, COPD, Other hx: Primary immunodeficiency, antral ulcers, GI bleed associated with excedrin/nonin flammatory medication use, anemia, IBS, migraines, back pain, TMJ, seasonal allergiesm covid + 11/03/2020, History of Any Multi-Drug Resistant Organisms: None Reported Past Surgical History: Breast Surgery, Ear Surgery, Uterine Ablation Additional Past Surgical History / Comment(s): EGDs, colonoscopies, bilateral breast augmentation, septoplasty, L ear trauma/reattached. Past Anesthesia/Blood Transfusion Reactions: No Reported Reaction, Motion Sickness Additional Past Anesthesia/Blood Transfusion Reaction / Comment(s): Pt has received blood in past without reaction. Past Psychological History: ADD/ADHD, Anxiety, Bipolar, Depression, PTSD Smoking Status: Former smoker, Vaper Past Alcohol Use History: Abuse Past Drug Use History: None Reported - Past Family History Father Additional Family Medical History / Comment(s): Father at age 51 from accidental drug overdose. Mother Family Medical History: Fibromyalgia Additional Family Medical History / Comment(s): Mother is alive at age 61 with history of primary immunodeficiency. Brother(s) Additional Family Medical History / Comment(s): Patient has one brother with his tory of alcohol abuse. Patient does not have any sisters. Patient has 2 children with no major medical problems. Medications and Allergies Home Medications Medication Instructions Recorded Confirmed Type Cetirizine HCl [Zyrtec] 10 mg PO DAILY PRN 02/26/20 12/03/20 History DULoxetine HCL [Cymbalta] 60 mg PO DAILY 02/26/20 12/03/20 History buPROPion XL [Wellbutrin XL] 150 mg PO DAILY 08/14/20 12/03/20 History Acetaminophen Tab [Tylenol] 650 mg PO Q6HR PRN tab 08/16/20 12/03/20 Rx Sucralfate [Carafate] 1 gm PO ACHS #60 tab 08/16/20 12/03/20 Rx ARIPiprazole [Abilify] 7.5 mg PO DAILY 11/04/20 12/03/20 History Albuterol Sulfate [Proair Hfa] 2 puff INHALATION RT-Q4H PRN 11/04/20 12/03/20 History Benzonatate [Tessalon Perles] 200 mg PO TID 11/04/20 12/03/20 History Cholecalciferol [Vitamin D3 (25 25 mcg PO DAILY 11/04/20 12/03/20 History Mcg = 1000 Iu)] Cyclobenzaprine [Flexeril] 5 - 10 mg PO TID PRN 11/04/20 12/03/20 History Fluticasone Nasal [place] [Flonase 1 - 2 spr EA NOSTRIL Q48H PRN 11/04/20 12/03/20 History Nasal [place]] Fluticasone/Salmeterol [Advair 1 puff INHALATION RT-BID 11/04/20 12/03/20 Histor y 250-50 Diskus] Pantoprazole Sodium [Protonix] 40 mg PO DAILY 11/04/20 12/03/20 History Propranolol LA [Inderal LA] 60 mg PO DAILY 11/04/20 12/03/20 History Triamcinolone 0.1% Cream [Kenalog 1 applic TOPICAL BID 11/04/20 12/03/20 History 0.1% Cream] busPIRone HCl [Buspar] 10 mg PO BID PRN 11/04/20 12/03/20 History Amitriptyline HCl [Elavil] 10 mg PO HS #30 tab 11/29/20 12/03/20 Rx Ascorbic Acid [Vitamin C] 1,000 mg PO DAILY tab 11/29/20 12/03/20 Rx Melatonin 6 mg PO HS tablet 11/29/20 12/03/20 Rx Topiramate [Topamax] 25 mg PO DAILY #30 tab 11/29/20 12/03/20 Rx Zinc Sulfate [Orazinc] 220 mg PO DAILY cap 11/29/20 12/03/20 Rx Ondansetron Odt [Zofran Odt] 4 mg PO Q8H PRN 12/03/20 12/03/20 History oxyCODONE-APAP 5-325MG [Percocet 1 tab PO Q4HR PRN 12/03/20 12/03/20 History 5-325 mg] Allergies Allergy/AdvReac Type Severity Reaction Status Date / Time adhesive Allergy Rash/Hives Verified 12/03/20 12:40 latex Allergy Rash/Hives Verified 12/03/20 12:40 prochlorperazine Allergy Unknown Verified 12/03/20 12:40 [From Compazine] ciprofloxacin [From Cipro] AdvReac Hallucinati Verified 12/03/20 12:40 ons citalopram [From Celexa] AdvReac Suicidal Verified 12/03/20 12:40 thoughts diazepam [From Valium] AdvReac Hallucinati Verified 12/03/20 12:40 ons/Anxiety fluoxetine [From Prozac] AdvReac Suicidal Verified 12/03/20 12:40 thoughts metoclopramide [From Reglan] AdvReac Hallucinati Verified 12/03/20 12:40 ons/Anxiety paroxetine [From Paxil] AdvReac Suicidal Verified 12/03/20 12:40 thoughts Penicillins AdvReac Nausea & Verified 12/03/20 12:40 Vomiting Physical Exam Vitals: Vital Signs Temp Pulse Resp BP Pulse Ox 12/03/20 18:34 97 32 H 123/77 100 12/03/20 14:18 102 H 34 H 90/53 94 L 12/03/20 12:02 45 H 12/03/20 11:49 98.3 F 124 H 26 H 95/62 Intake and Output 12/03/20 12/03/20 12/03/20 06:59 14:59 22:59 Other: Weight 57.606 kg 57.606 kg Gen. appearance, comfortable not in distress currently on 4 L of oxygen by nasal cannula Head exam was generally normal. There was no scleral icterus or corneal arcus. Mucous membranes were moist. Neck was supple and without jugular venous distension, thyromegaly, or carotid bruits. Carotids were easily palpable bilaterally. There was no adenopathy. Lungs sounds are diminished and the patient has contacted the mid and lower lung bases bilaterally. The chest tube insertion site on the right and the left side the chest tubes are all well-healed. Abdominal exam revealed normal bowel sounds. The abdomen was soft, non-tender, and without masses, organomegaly, or appreciable enlargement of the abdominal aorta. Examination of the extremities revealed easily palpable radial, femoral and pedal pulses. There was no cyanosis, clubbing or edema. The patient had diffuse muscle atrophy no deformities. Examination of the skin revealed no evidence of significant rashes, suspicious appearing nevi or other concerning lesions. Neurologically, the patient is awake and alert and the patient does not have any focal neurological deficit. Cranial nerves are essentially intact. The patient has global muscle weakness in all 4 extremities. Results - Laboratory Findings CBC and BMP: 12/03/20 12:14 12/03/20 12:14 PT/INR, D-dimer PT 11.0 sec (9.0-12.0) 12/03/20 12:14 INR 1.0 (<1.2) 12/03/20 12:14 Abnormal lab findings: Abnormal Labs 04/16/21 04/16/21 04/16/21 12:14 12:14 12:14 WBC 13.7 H RBC 2.79 L Hgb 8.0 L Hct 24.9 L RDW 17.9 H Plt Count 455 H Neutrophils # 11.2 H APTT 21.0 L Sodium 136 L Magnesium 1.4 L Alkaline Phosphatase 343 H Lactate Dehydrogenase 925 H C-Reactive Protein 26.4 H Total Protein 5.5 L Albumin 2.7 L - Diagnostic Findings Chest x-ray: image reviewed CT scan - chest: image reviewed Assessment and Plan Plan: 1 chronic hypoxemic respiratory failure secondary to COVID 19 pneumonia. The patient was intubated and mechanically ventilated back in October and early November 2020. She ultimately recovered following prolonged mechanical ventilation and intubation and during the course of her disease, the patient developed pneumonia, empyema involving the right lung where the pleural fluid and the sputum both return of the positive for MSSA. The patient also developed a persistent pneumothorax on the right even after removal of the right-sided chest tube. For now, her respiratory status predominantly related to Covid 19 related hypoxemia. The patient is on 40s about 2 by nasal cannula. The right- sided pneumothorax is probably no other of 10% and a small and it has not progressed significantly. As such, I do not think there is any further chest tube insertion. She has also developed a right-sided pleural effusion which may need to be drained at a later stage knowing that the patient has grown MSSA the pleural fluid. On a separate note, the patient received steroids and tocilizumab during her earlier hospitalization and she received no Remdesivir 2 mild intermittent chronic bronchial 3 mild pain under investigation. The patient was drinking alcohol in large amounts/quantities at home dose of breath or chronic mesentery and pain. Amylase and lipase are normal. Alkaline phosphatase is elevated. She has a hydropic gallbladder. No evidence of any cholecystitis. HIDA scan was also done. General surgeries on the case. Her pain is subsided 4 bilateral pneumothoraces requiring bilateral chest tube insertion with adequate expansion, with some residual pneumothorax on the right 5 chronic anemia 6 History of immunodeficiency disorder. 7 Irritable bowel syndrome. 8 History of migraine. 9 Fibromyalgia. 10 History of chronic back pain. 11 MSSA bacteremia in addition to possible empyema and pneumonia, treated 12 History of chronic tobacco dependence, vaping., 13 acute on top of chronic anemia 14 history of alcoholism, drinking tequila a daily basis 15 history of chronic pain dependence 16 history of chronic anxiety/depression KIMBERLY Workup the abdominal pain The COVID-19 related pneumonia is gradually improving. There are some residual pulmonary infiltrates and residual hypoxemia which may ultimately improve over time. No active signs of recurrent pneumonia progression. The Computed Tomography scan of the chest was reviewed. As for the right-sided pneumothorax, this is probably in the order of 10-15%. The patient persisted pneumothoraces unit at time of discharge. This pneumothorax is slightly gotten larger in size. We'll continue to monitor this right-sided pneumothorax. She also has a right-sided pleural effusion and needs to be drained and I will suggest obtaining this through interventional radiology within the next few days. Provide the patient incentive spirometer. Check a pro-calcitonin level and any elevated level may support the possibility of ongoing infection/infection and this needs to be ordered and monitored provide the patient incentive spirometer resumed the patient's medication from home We'll continue to follow
[2020-12-03] MEDS: MELATONIN 3 MG TABLET PO SCH (21:21)
[2020-12-03] MEDS: BENZONATATE 100 MG CAP PO SCH (21:21)
[2020-12-03] MEDS: ALBUTEROL HFA INHALER INHALATION SCH ×2 (21:33→21:34)
[2020-12-03] MEDS: SYMBICORT 80-4.5 MCG INHALER INHALATION SCH (21:34)
[2020-12-03] MEDS: AMITRIPTYLINE HCL 10 MG TAB PO SCH (21:42)
[2020-12-03 23:10] LABS: Ferritin 61.8 ng/mL (10.0-291.0)
[2020-12-04] MEDS: oxyCODONE-APAP 5-325MG 1 EACH TAB PO PRN ×3 (00:35→20:56)
[2020-12-04] MEDS: ALBUTEROL HFA INHALER INHALATION SCH ×4 (03:27→21:00)
[2020-12-04] MEDS: CHOLECALCIFEROL 25 MCG (1000 IU) TABLET PO SCH (08:39)
[2020-12-04] MEDS: BENZONATATE 100 MG CAP PO SCH ×3 (08:39→20:55)
[2020-12-04] MEDS: ASCORBIC ACID 500 MG TAB PO SCH ×2 (08:39)
[2020-12-04] MEDS: PROPRANOLOL LA 60 MG CAP.SA.24H PO SCH (08:40)
[2020-12-04] MEDS: buPROPion XL 150 MG TAB.ER.24H PO SCH (08:40)
[2020-12-04] MEDS: ZINC SULFATE 220 MG CAP PO SCH (08:40)
[2020-12-04] MEDS: DULoxetine HCL 60 MG CAPSULE.DR PO SCH (08:40)
[2020-12-04] MEDS: TOPIRAMATE 25 MG TAB PO SCH (08:40)
[2020-12-04] MEDS: HYDROmorphone 1 MG/ML 1 ML SYRINGE IVP PRN (08:43)
[2020-12-04] MEDS: PANTOPRAZOLE 40 MG/10 ML VIAL IV SCH (08:45)
[2020-12-04] MEDS: DEXAMETHASONE SOD PHOSPHATE 10 MG/ML 1 ML VIAL IV SCH (08:45)
[2020-12-04] MEDS: ENOXAPARIN 40 MG/0.4 ML SYRINGE SQ SCH (08:45)
[2020-12-04] MEDS ORDERED: PANTOPRAZOLE 40 MG TABLET PO SCH (09:00)
[2020-12-04] MEDS ORDERED: ARIPiprazole 5 MG TAB PO SCH (09:00)
[2020-12-04] MEDS ORDERED: CHOLECALCIFEROL 25 MCG (1000 IU) TABLET PO SCH (09:00)
[2020-12-04] MEDS: SYMBICORT 80-4.5 MCG INHALER INHALATION SCH ×2 (09:22→20:59)
--- NOTE | 2020-12-04 11:03 | P.PN ---
Subjective Progress Note Date: 12/04/20 39-year-old. Patient is well-known to me as the patient was hospitalized around 3 weeks ago for bilateral pneumonia related to COVID-19 infection complicated by respiratory failure, requiring intubation mechanical ventilation and during the course of her treatment the patient developed bilateral pneumothoraces and the patient had bilateral chest tube insertion. Ultimately the patient was weaned off the mechanical ventilator, chest tubes were removed and the patient was discharged home. During the course of her treatment, the patient also became bacteremic with MSSA. She developed significant weakness, and she was also noted is eating for nutritional support. She was discharged home on oxygen 4 L per minute nasal cannula. She came in today to the emergency department complaining of a acute onset pain in her right side of the abdomen somewhat between the right upper quadrant and right lower quadrant. CAT scan showed distended gallbladder. There was also some evidence of enteritis. Noted the patient's LFTs were normal including AST and ALT. Alkaline phosphatase was slightly elevated. Bilirubin was normal. Computed tomography scan of the abdomen showed a common bile duct that was done distended measuring 6 mm in size of the gallbladder was hydropic. Upon further questioning, the patient was having diffuse body aches and the patient was drinking tequila large quantities to control her pain. Her amylase and lipase are within normal limits. Her chest x-ray showed diffuse bilateral pulmonary infiltrates and there was some mild enlargement in the right sided pneumonia thorax impaired to the earlier chest x-ray that was done at time of discharge. For that reason, a CTA scan of the chest was done and the CT angiogram showed no evidence of any pulmonary embolism. There was still diffuse bilateral pulmonary infiltrates which were looking somewhat improved. There was also a right-sided pneumothorax around 10- 15% and there was also evidence of bullous changes in the right and the left lungs bilaterally mainly in the lung apices. The patient is on oxygen 4 L per minute nasal cannula. She denies having any hemoptysis. No pleurisy. 12/04/2020, the patient is being seen in follow-up. She remains on oxygen at 8 L and her pulse ox is currently at 93%. She has occasional cough. Denies having any worsening shortness of breath. Overall rest or status is limited as the patient is still recovering from her COVID-19 related pneumonia. She also had developed a 10-15% pneumothorax on the right. A follow-up chest x-ray will be ordered today. This has not been done. Meanwhile, her HIDA scan came back negative and the patient was found to have a normal ejection fraction. Objective - Vital Signs Vital signs: Vital Signs Temp 97.7 F 12/04/20 04:20 Pulse 97 12/04/20 04:20 Resp 18 12/04/20 04:20 BP 96/54 12/04/20 04:20 Pulse Ox 93 L 12/04/20 04:20 Intake & Output 12/03/20 12/04/20 12/04/20 18:59 06:59 18:59 Intake Total 358 Balance 358 Weight 57.606 kg 56.3 kg Intake: Oral 358 Other: Voiding Method Bedpan # Voids 1 1 - Exam Gen. appearance, comfortable not in distress currently on 8 L of oxygen by nasal cannula Head exam was generally normal. There was no scleral icterus or corneal arcus. Mucous membranes were moist. Neck was supple and without jugular venous distension, thyromegaly, or carotid bruits. Carotids were easily palpable bilaterally. There was no adenopathy. Lungs sounds are diminished and the patient has contacted the mid and lower lung bases bilaterally. The chest tube insertion site on the right and the left side the chest tubes are all well-healed. Abdominal exam revealed normal bowel sounds. The abdomen was soft, non-tender, and without masses, organomegaly, or appreciable enlargement of the abdominal aorta. Examination of the extremities revealed easily palpable radial, femoral and pedal pulses. There was no cyanosis, clubbing or edema. The patient had diffuse muscle atrophy no deformities. Examination of the skin revealed no evidence of significant rashes, suspicious appearing nevi or other concerning lesions. Neurologically, the patient is awake and alert and the patient does not have any focal neurological deficit. Cranial nerves are essentially intact. The patient has global muscle weakness in all 4 extremities. - Labs CBC & Chem 7: 12/03/20 12:14 12/03/20 12:14 Labs: Abnormal Lab Results - Last 24 Hours (Table) 12/03/20 12/03/20 12/03/20 Range/Units 12:14 12:14 12:14 WBC 13.7 H (3.8-10.6) k/uL RBC 2.79 L (3.80-5.40) m/uL Hgb 8.0 L (11.4-16.0) gm/dL Hct 24.9 L (34.0-46.0) % RDW 17.9 H (11.5-15.5) % Plt Count 455 H (150-450) k/uL Neutrophils # 11.2 H (1.3-7.7) k/uL APTT 21.0 L (22.0-30.0) sec Sodium 136 L (137-145) mmol/L Magnesium 1.4 L (1.6-2.3) mg/dL Alkaline Phosphatase 343 H (38-126) U/L Lactate Dehydrogenase 925 H (313-618) U/L C-Reactive Protein 26.4 H (<1.0) mg/dL Total Protein 5.5 L (6.3-8.2) g/dL Albumin 2.7 L (3.5-5.0) g/dL Procalcitonin (0.02-0.09) ng/mL 12/03/20 Range/Units 12:14 WBC (3.8-10.6) k/uL RBC (3.80-5.40) m/uL Hgb (11.4-16.0) gm/dL Hct (34.0-46.0) % RDW (11.5-15.5) % Plt Count (150-450) k/uL Neutrophils # (1.3-7.7) k/uL APTT (22.0-30.0) sec Sodium (137-145) mmol/L Magnesium (1.6-2.3) mg/dL Alkaline Phosphatase (38-126) U/L Lactate Dehydrogenase (313-618) U/L C-Reactive Protein (<1.0) mg/dL Total Protein (6.3-8.2) g/dL Albumin (3.5-5.0) g/dL Procalcitonin 0.11 H (0.02-0.09) ng/mL Assessment and Plan Plan: 1 chronic hypoxemic respiratory failure secondary to COVID 19 pneumonia. The patient was intubated and mechanically ventilated back in October and early November 2020. She ultimately recovered following prolonged mechanical ventilation and intubation and during the course of her disease, the patient developed pneumonia, empyema involving the right lung where the pleural fluid and the sputum both return of the positive for MSSA. The patient also developed a persistent pneumothorax on the right even after removal of the right-sided chest tube. For now, her respiratory status predominantly related to Covid 19 related hypoxemia. The patient is on 8 by nasal cannula. The right-sided pneumothorax is probably no other of 10% and a small and it has not progressed significantly. As such, I do not think there is any further chest tube insertion. She has also developed a right-sided pleural effusion which may need to be drained at a later stage knowing that the patient has grown MSSA the pleural fluid. On a separate note, the patient received steroids and tocilizumab during her earlier hospitalization and she received no Remdesivir . She is stable for now. The follow-up chest x-ray will be needed. 2 mild intermittent chronic bronchial 3 mild pain under investigation. The patient was drinking alcohol in large amounts/quantities at home dose of breath or chronic mesentery and pain. Amylase and lipase are normal. Alkaline phosphatase is elevated. She has a hydropic gallbladder. No evidence of any cholecystitis. HIDA scan was also done. General surgeries on the case. Her pain is subsided 4 bilateral pneumothoraces requiring bilateral chest tube insertion with adequate expansion, with some residual pneumothorax on the right 5 chronic anemia 6 History of immunodeficiency disorder. 7 Irritable bowel syndrome. 8 History of migraine. 9 Fibromyalgia. 10 History of chronic back pain. 11 MSSA bacteremia in addition to possible empyema and pneumonia, treated 12 History of chronic tobacco dependence, vaping., 13 acute on top of chronic anemia 14 history of alcoholism, drinking tequila a daily basis 15 history of chronic pain dependence 16 history of chronic anxiety/depression KIMBERLY Workup the abdominal pain is essentially negative and the patient has a normal HIDA scan. I think this may be related to excessive alcohol/tequila drink. The patient is on Dilaudid for pain control for now. The COVID-19 related pneumonia is gradually improving. There are some residual pulmonary infiltrates and residual hypoxemia which may ultimately improve over time. No active signs of recurrent pneumonia progression. The Computed Tomography scan of the chest was reviewed. As for the right-sided pneumothorax, this is probably in the order of 10-15%. The patient persisted pneumothoraces unit at time of discharge. This pneumothorax is slightly gotten larger in size. We'll continue to monitor this right-sided pneumothorax. She also has a right-sided pleural effusion and needs to be drained and I will suggest obtaining this through interventional radiology within the next few days. Provide the patient incentive spirometer. Awaiting repeat chest x-ray from today Place a consultation to interventional radiology for possible drainage of the residual right-sided pleural effusion to make sure there is no ongoing issues with pleural space infection/empyema/MSSA infection. This will be also a good opportunity to drain the residual air from her right lung Check a pro-calcitonin level is low at 0.11 resumed the patient's medication from home provide the patient another incentive spirometer We'll continue to follow
--- NOTE | 2020-12-04 11:46 | XR ---
EXAMINATION TYPE: XR chest 1V portable DATE OF EXAM: 12/04/2020 CLINICAL HISTORY: Difficulty breathing and covid progress study. TECHNIQUE: Single AP portable upright view of the chest is obtained. COMPARISON: Chest x-ray and CTA chest from one day earlier FINDINGS: Persistent multifocal and confluent opacities bilaterally greater in the left lung versus right upper lung. Small right apical pneumothorax slightly less prominent versus x-ray one day toni r. Silhouetting left heart border redemonstrated. Prominent silhouetting of the hemidiaphragm noted. Osseous structures remain intact. Overlying bilateral metallic nipple ornaments are redemonstrated. IMPRESSION: Small right apical pneumothorax slightly diminished in size from most recent x-ray. Persi stent multifocal and confluent opacities bilaterally consistent with covid-19 infection, findings hav e worsened in the left lung base from one day earlier.
--- NOTE | 2020-12-04 12:11 | P.GSCN ---
History of Present Illness Consult date: 12/04/20 Reason for Consult: Abdominal pain, History of present illness: The patient is a 39-year-old female who presented to the emergency department yesterday with abdominal pain. It was sudden onset on the right abdomen. She was seen in the emergency department earlier Mark and had a CT scan done showing distention of the gallbladder. She was initially sent home but returned with worsening shortness of breath. She has had a recent complex hospitalization due to COVID-19 pneumonia. Developed respiratory failure and was intubated. Ended up having bilateral pneumothoraces. Eventually recuperated enough to be discharged. Since home she says she has been drinking alcohol quite a bit due to pain. Earlier in the year she had acute blood loss anemia and had EGD performed showing 2 gastric ulcers. The patient still notices some occasional blood in the stool. She is taking Nexium and Carafate. Denies hematemesis. Denies fatty food dyscrasias. Review of Systems All systems: negative Past Medical History Past Medical History: Asthma, Fibromyalgia, GERD/Reflux, GI Bleed Additional Past Medical History / Comment(s): covid + pneumonia 10/30/2020 complicated by respiratory failure, intubation, mechanical ventilation, bilateral pneumothoraces, COPD, Other hx: Primary immunodeficiency, antral ulcers, GI bleed, anemia, IBS, migraines, back pain, TMJ, seasonal allergies History of Any Multi-Drug Resistant Organisms: None Reported Past Surgical History: Breast Surgery (Bilateral subpectoral breast implants), Ear Surgery, Uterine Ablation Additional Past Surgical History / Comment(s): EGDs, colonoscopies, bilateral breast augmentation, septoplasty, L ear trauma/reattached. Past Anesthesia/Blood Transfusion Reactions: No Reported Reaction, Motion Sickness Additional Past Anesthesia/Blood Transfusion Reaction / Comm: Pt has received blood in past without reaction. Past Psychological History: ADD/ADHD, Anxiety, Bipolar, Depression, PTSD Smoking Status: Former smoker, Vaper Past Alcohol Use History: Abuse Past Drug Use History: None Reported - Past Family History Father Additional Family Medical History / Comment(s): Father at age 51 from accidental drug overdose. Mother Family Medical History: Fibromyalgia Additional Family Medical History / Comment(s): Mother is alive at age 61 with history of primary immunodeficiency. Brother(s) Additional Family Medical History / Comment(s): Patient has one brother with history of alcohol abuse. Patient does not have any sisters. Patient has 2 children with no major medical problems. Medications and Allergies Home Medications Medication Instructions Recorded Confirmed Type Cetirizine HCl [Zyrtec] 10 mg PO DAILY PRN 02/26/20 12/03/20 History DULoxetine HCL [Cymbalta] 60 mg PO DAILY 02/26/20 12/03/20 History buPROPion XL [Wellbutrin XL] 150 mg PO DAILY 08/14/20 12/03/20 History Acetaminophen Tab [Tylenol] 650 mg PO Q6HR PRN tab 08/16/20 12/03/20 Rx Sucralfate [Carafate] 1 gm PO ACHS #60 tab 08/16/20 12/03/20 Rx ARIPiprazole [Abilify] 7.5 mg PO DAILY 11/04/20 12/03/20 History Albuterol Sulfate [Proair Hfa] 2 puff INHALATION RT-Q4H PRN 11/04/20 12/03/20 History Benzonatate [Tessalon Perles] 200 mg PO TID 11/04/20 12/03/20 History Cholecalciferol [Vitamin D3 (25 25 mcg PO DAILY 11/04/20 12/03/20 History Mcg = 1000 Iu)] Cyclobenzaprine [Flexeril] 5 - 10 mg PO TID PRN 11/04/20 12/03/20 History Fluticasone Nasal Kathleen [Flonase 1 - 2 spr EA NOSTRIL Q48H PRN 11/04/20 12/03/20 History Nasal Kathleen] Fluticasone/Salmeterol [Advair 1 puff INHALATION RT-BID 11/04/20 12/03/20 History 250-50 Diskus] Pantoprazole Sodium [Protonix] 40 mg PO DAILY 11/04/20 12/03/20 History Propranolol LA [Inderal LA] 60 mg PO DAILY 11/04/20 12/03/20 History Triamcinolone 0.1% Cream [Kenalog 1 applic TOPICAL BID 11/04/20 12/03/20 History 0.1% Cream] busPIRone HCl [Buspar] 10 mg PO BID PRN 11/04/20 12/03/20 History Amitriptyline HCl [Elavil] 10 mg PO HS #30 tab 11/29/20 12/03/20 Rx Ascorbic Acid [Vitamin C] 1,000 mg PO DAILY tab 11/29/20 12/03/20 Rx Melatonin 6 mg PO HS tablet 11/29/20 12/03/20 Rx Topiramate [Topamax] 25 mg PO DAILY #30 tab 11/29/20 12/03/20 Rx Zinc Sulfate [Orazinc] 220 mg PO DAILY cap 11/29/20 12/03/20 Rx Ondansetron Odt [Zofran Odt] 4 mg PO Q8H PRN 12/03/20 12/03/20 History oxyCODONE-APAP 5-325MG [Percocet 1 tab PO Q4HR PRN 12/03/20 12/03/20 History 5-325 mg] Allergies Allergy/AdvReac Type Severity Reaction Status Date / Time adhesive Allergy Rash/Hives Verified 12/03/20 12:40 latex Allergy Rash/Hives Verified 12/03/20 12:40 prochlorperazine Allergy Unknown Verified 12/03/20 12:40 [From Compazine] ciprofloxacin [From Cipro] AdvReac Hallucinati Verified 12/03/20 12:40 ons citalopram [From Celexa] AdvReac Suicidal Verified 12/03/20 12:40 thoughts diazepam [From Valium] AdvReac Hallucinati Verified 12/03/20 12:40 ons/Anxiety fluoxetine [From Prozac] AdvReac Suicidal Verified 12/03/20 12:40 thoughts metoclopramide [From Reglan] AdvReac Hallucinati Verified 12/03/20 12:40 ons/Anxiety paroxetine [From Paxil] AdvReac Suicidal Verified 12/03/20 12:40 thoughts Penicillins AdvReac Nausea & Verified 12/03/20 12:40 Vomiting Surgical - Exam Osteopathic Statement: *. No significant issues noted on an osteopathic structural exam other than those noted in the History and Physical/Consult. Vital Signs Temp Pulse Resp BP 98.3 F 124 H 26 H 95/62 12/03/20 11:49 12/03/20 11:49 12/03/20 11:49 12/03/20 11:49 - General well developed, well nourished - Eyes normal ocular movement - Neck trachea midline - Respiratory other (Fairly clear to auscultation without wheeze, slight conversational dyspnea) - Abdomen some superficial areas of ecchymosis- patient states this is due to SQ injections Abdomen: soft, tender (Minimal right mid abdominal tenderness), bowel sounds, no guarding, no rigid, no rebound, no distended Results - Labs 12/03/20 12:14 12/03/20 12:14 Abnormal Lab Results - Last 24 Hours (Table) 12/03/20 12/03/20 12/03/20 Range/Units 12:14 12:14 12:14 WBC 13.7 H (3.8-10.6) k/uL RBC 2.79 L (3.80-5.40) m/uL Hgb 8.0 L (11.4-16.0) gm/dL Hct 24.9 L (34.0-46.0) % RDW 17.9 H (11.5-15.5) % Plt Count 455 H (150-450) k/uL Neutrophils # 11.2 H (1.3-7.7) k/uL APTT 21.0 L (22.0-30.0) sec Sodium 136 L (137-145) mmol/L Magnesium 1.4 L (1.6-2.3) mg/dL Alkaline Phosphatase 343 H (38-126) U/L Lactate Dehydrogenase 925 H (313-618) U/L C-Reactive Protein 26.4 H (<1.0) mg/dL Total Protein 5.5 L (6.3-8.2) g/dL Albumin 2.7 L (3.5-5.0) g/dL Procalcitonin (0.02-0.09) ng/mL 12/03/20 Range/Units 12:14 WBC (3.8-10.6) k/uL RBC (3.80-5.40) m/uL Hgb (11.4-16.0) gm/dL Hct (34.0-46.0) % RDW (11.5-15.5) % Plt Count (150-450) k/uL Neutrophils # (1.3-7.7) k/uL APTT (22.0-30.0) sec Sodium (137-145) mmol/L Magnesium (1.6-2.3) mg/dL Alkaline Phosphatase (38-126) U/L Lactate Dehydrogenase (313-618) U/L C-Reactive Protein (<1.0) mg/dL Total Protein (6.3-8.2) g/dL Albumin (3.5-5.0) g/dL Procalcitonin 0.11 H (0.02-0.09) ng/mL Diabetes panel 12/03/20 Range/Units 12:14 Sodium 136 L (137-145) mmol/L Potassium 3.5 (3.5-5.1) mmol/L Chloride 104 (98-107) mmol/L Carbon Dioxide 23 (22-30) mmol/L BUN 12 (7-17) mg/dL Creatinine 0.53 (0.52-1.04) mg/dL Glucose 84 (74-99) mg/dL Calcium 8.6 (8.4-10.2) mg/dL AST 25 (14-36) U/L ALT 32 (4-34) U/L Alkaline Phosphatase 343 H (38-126) U/L Total Protein 5.5 L (6.3-8.2) g/dL Albumin 2.7 L (3.5-5.0) g/dL Calcium panel 12/03/20 Range/Units 12:14 Calcium 8.6 (8.4-10.2) mg/dL Albumin 2.7 L (3.5-5.0) g/dL Pituitary panel 12/03/20 Range/Units 12:14 Sodium 136 L (137-145) mmol/L Potassium 3.5 (3.5-5.1) mmol/L Chloride 104 (98-107) mmol/L Carbon Dioxide 23 (22-30) mmol/L BUN 12 (7-17) mg/dL Creatinine 0.53 (0.52-1.04) mg/dL Glucose 84 (74-99) mg/dL Calcium 8.6 (8.4-10.2) mg/dL Adrenal panel 12/03/20 Range/Units 12:14 Sodium 136 L (137-145) mmol/L Potassium 3.5 (3.5-5.1) mmol/L Chloride 104 (98-107) mmol/L Carbon Dioxide 23 (22-30) mmol/L BUN 12 (7-17) mg/dL Creatinine 0.53 (0.52-1.04) mg/dL Glucose 84 (74-99) mg/dL Calcium 8.6 (8.4-10.2) mg/dL Total Bilirubin 0.5 (0.2-1.3) mg/dL AST 25 (14-36) U/L ALT 32 (4-34) U/L Alkaline Phosphatase 343 H (38-126) U/L Total Protein 5.5 L (6.3-8.2) g/dL Albumin 2.7 L (3.5-5.0) g/dL - Imaging CT scan - abdomen: report reviewed, image reviewed CT scan - chest: report reviewed, image reviewed (CT was compared to an exam done on November 15. There is a pleural effusion which was not present at that time) Additional studies: HIDA scan showed normal ejection fraction Assessment and Plan (1) Abdominal pain Current Visit: Yes Status: Acute Code(s): R10.9 - UNSPECIFIED ABDOMINAL PAIN SNOMED Code(s): 33530277 (2) Pleural effusion Current Visit: Yes Status: Acute Code(s): J90 - PLEURAL EFFUSION, NOT ELSEWHERE CLASSIFIED SNOMED Code(s): 38190550 (3) Pneumonia due to COVID-19 virus Current Visit: Yes Status: Acute Code(s): U07.1 - COVID-19; J12.82 - Pneumonia due to coronavirus disease 2019 SNOMED Code(s): 499596229986399181 (4) Pneumothorax Current Visit: Yes Status: Acute Code(s): J93.9 - PNEUMOTHORAX, UNSPECIFIED SNOMED Code(s): 72585169 Plan: This abdominal discomfort does not appear to be biliary in nature. The distention seen on imaging yesterday may just have been due to the the time from prior. The ejection fraction is normal. The pain may be due to recent heavy consumption of alcohol or the pleural effusion. The effusion was not present on imaging from 329. Will be started on a diet. Continue PPI and Carafate. Continue medical care. If anything changes and you would like the patient reevaluated, would happy to see her again
[2020-12-04 12:52] VITALS: BMI 21.9
[2020-12-04] MEDS: HYDROmorphone 0.5 MG/0.5 ML SYRINGE IVP PRN (17:27)
[2020-12-04] MEDS: ARIPiprazole 5 MG TAB PO SCH (17:28)
[2020-12-04] MEDS: SUCRALFATE 1 GM TAB PO SCH ×2 (17:28→20:55)
--- NOTE | 2020-12-04 17:56 | P.PN ---
Subjective Progress Note Date: 12/04/20 This is a 39-year-old female patient of Dr. Gonzalez with past medical history of GI bleed in 2008, July 2020 was admitted for GI bleed secondary to 2 nonbleeding antral ulcers requiring transfusion 2 units packed RBCs, tobacco use, alcohol abuse, recurrent depression, generalized anxiety disorder. Patient was diagnosed with COVID-19 on October 30. She had lengthy admission, for which she required hospitalization until November 29 2020. She had complications from COVID-19 include ventilation intubation for respiratory failure, after she failed BiPAP treatments, she received Tocilizumab infusion, she has pulmonary to see show pneumonia, and severe pulmonary interstitial and airspace edema, she required chest tube placements bilaterally, she had 3 spontaneous pneumothoraces, negative for pulmonary emboli, she did not require pressors, at that time, right chest tube was placed on November 06, it November 08, and November 25, left chest tube, November 07 that she was seen by Dr. Conn during the last admission, and Dr. Tapia cardiothoracic her chest tube was removed on November 27 right . The patient went home on room air, no oxygen requirements needed home therapies provided She has chronic anemia of chronic disease, history of bleeding ulcers no alcohol abuse, primary immune deficiency state, recurrent depression general since IT disorder, mild intermittent bronchial asthma, and migraines tobacco use, sepsis with MSSA bacteremia with MSSA pneumonia, moderate protein calorie malnutrition, GERD, thrush, She was seen in emergency room on December 01 she thought that she had dehiscence of the wound, the stitches was accidentally broken when the lifted her up and her arms up. There was no shortness of breath at that time, now she comes back December 03, with significant sharp right-sided abdominal pain, that woke her from her sleep.secondary to right upper quadrant right lower quadrant abdominal pain, without any migration, she was discharged, with outpatient workup for gallbladder colic for which consultation was made with Dr. Portillo. Labs at that time, shows no leukocytosis, she is anemic at 8.2, low potassium at 3.3, platelets normal at 412, radiology shows ultrasound borderline common bile duct at 6 mm, hydropic gallbladder, fluid filled small bowel loops, lung changes consistent with chronic bilateral infection, there is slight worsening of the right pneumothorax, no amount twice calculated from radiology for severity . Patient was discharged, to have an outpatient HIDA scan. Patient now comes back 5 hours later, with difficulty breathing. Symptoms of dyspnea has worsened, over the past several hours, and has some chills. Patient's no admitted, with consultation to pulmonary. Chest x-ray was reviewed by Dr. Davison, for which he did not recommend chest tube placement at this time, carotid markers are elevated, worse from November 23, LDH 925, CRP 26, lipase normal 31, Covid test negative from November 23 UCG negative computed tomography scan as requested no pulmonary emboli on CTA, small right pneumothorax, extensive infiltrate bilateral lungs, compatible with atypical pneumonia, pulmonary artery diameter at the bifurcation is 2.4 cm, correlate for pulmonary hypertension, subcutaneous and eczema on the right side. She is now on 7 L NC o2 sat 94% bp at 90/53 12/04 patient examined bedside. Is comfortably laying in bed. She continues to require 10 L of high flow oxygen saturating at 92-93%. She complains of occasional cough. Patient denies any pain in the abdomen currently. HIDA scan obtained was negative and had normal ejection fraction. Patient was evaluated by surgery and ruled out to be biliary in origin. Patient does have 10-15% pneumothorax on the right with she will be monitored on repeat chest x-ray. She does have pleural effusion for which IR consult has been made for thoracentesis to be performed on Sunday. Patient does have history of MSSA from the pleural fluid on the right. Patient was drinking heavy amount of alcohol to help with her pain at home which could be responsible for patient's extreme pain. No other etiology found as patient sites of chest tube were healing well. Patient is currently on Dilaudid 0.5 every 3 hours for pain control. , We will discontinue Dilaudid 1 mg every 3 hours. Continue Percocet for pain control. Review of system Constitutional: Denies chills, Denies fever, Denies lethargy, Denies malaise, Denies poor appetite, Denies weakness, Denies weight loss Eyes: denies decreased vision, denies diplopia, denies discharge, denies pain Ears: deny: decreased hearing Ears, nose, mouth and throat: Denies dental pain, Denies headache, Denies nasal discharge, Denies nose pain Cardiovascular: Denies chest pain, Denies decreased exercise tolerance, Denies edema, Denies high blood pressure, Denies irregular heart beat, Denies palpitations, Denies paroxysmal nocturnal dyspnea, Denies rapid heart beat, Denies shortness of breath Respiratory: Denies congestion, endorses cough, Denies cough with sputum, endorses dyspnea, Denies home oxygen, Denies wheezing Gastrointestinal: Denies abdominal pain, Denies change in bowel habits, Denies coffee ground emesis, Denies early satiety, Denies excessive gas, Denies heartburn, Denies hematemesis, Denies hematochezia, Denies loss of appetite, Denies nausea, Denies vomiting Genitourinary: Denies dysuria, Denies flank pain, Denies kidney stones, Denies menorrhagia, Denies urgency, Denies urinary frequency Musculoskeletal: Denies gait dysfunction, Denies limitation of motion, Denies morning stiffness, Denies muscle cramps Integumentary: Denies rash, Denies wounds, Denies brittle nails, Denies change in hair/nails, Denies darkening of skin Neurological: Denies balance difficulties, Denies change in speech, Denies double vision, Denies gait dysfunction, Denies loss of vision, Denies motor disturbance, Denies numbness, Denies paralysis, Denies paresthesias, Denies seizures Psychiatric: Denies anxiety, Denies depression Endocrine: Denies excessive sweating, Denies excessive thirst, Denies high blood sugars, Denies palpitations Hematologic/Lymphatic: Denies easy bruising, Denies lymphadenopathy Objective - Vital Signs Vital signs: Vital Signs Temp 98.2 F 12/04/20 12:20 Pulse 100 12/04/20 12:20 Resp 22 12/04/20 12:20 BP 108/52 12/04/20 12:20 Pulse Ox 93 L 12/04/20 12:20 Intake & Output 12/03/20 12/04/20 12/04/20 18:59 06:59 18:59 Intake Total 598 Balance 598 Weight 57.606 kg 56.3 kg 56.3 kg Intake: Oral 598 Other: Voiding Method Bedpan Bedpan # Voids 1 2 - Exam - Constitutional General appearance: cooperative, no acute distress, thin-appearing on 10 L high flow - EENT Eyes: anicteric sclerae, PERRLA, normal appearance ENT: hearing grossly normal - Neck Neck: no lymphadenopathy, normal ROM, no other, no rigidity, no stridor, no thyromegaly - Respiratory Respiratory: bilateral diminished with crackles at the bases - Cardiovascular Rhythm: regular Heart sounds: normal: S1, S2 Abnormal Heart Sounds: no systolic murmur, no diastolic murmur, no rub, no S3 Gallop, no S4 Gallop, no click, no other - Gastrointestinal General gastrointestinal: normal bowel sounds, soft - Integumentary Integumentary: site of chest tubes appear to be healing - Neurologic Neurologic: no sensory and motor deficit, no coordination - Musculoskeletal Musculoskeletal: gait not assessed , strength equal bilaterally - Psychiatric Psychiatric: A&O x's 3, appropriate affect - Labs CBC & Chem 7: 12/03/20 12:14 12/03/20 12:14 Labs: Abnormal Lab Results - Last 24 Hours (Table) 12/03/20 Range/Units 12:14 Procalcitonin 0.11 H (0.02-0.09) ng/mL Microbiology - Last 24 Hours (Table) 12/03/20 12:28 Blood Culture - Preliminary Blood No Growth after 24 hours 12/03/20 12:25 Blood Culture - Preliminary Blood No Growth after 24 hours Assessment and Plan Plan: 1. Acute hypoxic respiratory failure secondary to recent Covid 19 pneumonia diagnosed with,prior MSSA pneumonia, current right pneumothorax and pleural effusion , CTA failed to reveal any pulmonary emboli, has right pleural effusion, small pneumothorax, serial chest imaging, to monitor for the pneumothorax right side, Dr. Davison has been consulted. IR consult for thoracentesis 2. Right sided pneumothorax requiring chest tube 11/06, 11/08, 11/25 last Imitrex was discontinued on November 27. , continue only Percocet for pain control. Toradol for chest discomfort. 3. Acute exacerbation of mild intermittent bronchial asthma. Continue Ventolin inhaler 4 times daily as needed. 4. Recurrent depression and generalized anxiety disorder: She is on multiple medication between BuSpar, Abilify, Wellbutrin and Cymbalta 5. Primary immunodeficiency, stable. Check for immunoglobulin IgG A and M 6. Chronic anemia of chronic disease most likely due to history of bleeding ulcers and alcohol abuse. 7. Tobacco use and dependence including vaping. 8. Daily alcohol use/abuse. Stable. No episodes of DVT during the last admission, 9. Debility: Continue physical therapy. 10. Acute anemia secondary to sepsis without blood loss. S/p transfusion of 1 unit of packed RBCs. 11. Migraine headaches. Continue Inderal 60 mg daily. No Fioricet secondary to insomnia, continue on Topamax, Elavil 12. Sepsis with MSSA bacteremia, resolved continue to monitor for relapsing sepsis 13. Moderate protein calorie malnutrition. 14. Gastroesophageal reflux disease with history of bleeding ulcers. Continue Protonix 40 mg twice daily and Carafate 1 g 4 times daily. 15. Tachycardia. Patient resumed on Inderal, . 16. Thrush. Patient continue on nystatin. 17. Insomnia. Add Elavil 10 mg at bedtime. 18. DVT prophylaxis. Lovenox. 19 . Right abd pain - ruled out biliary colic , HIDA neg likley sec to alcoholic binge induced gastritis, continue pantoprazole
[2020-12-04] MEDS: MELATONIN 3 MG TABLET PO SCH (20:55)
[2020-12-04] MEDS: AMITRIPTYLINE HCL 10 MG TAB PO SCH (20:55)
[2020-12-05] MEDS: oxyCODONE-APAP 5-325MG 1 EACH TAB PO PRN ×4 (02:17→20:54)
[2020-12-05] MEDS: ALBUTEROL HFA INHALER INHALATION SCH ×4 (02:18→20:27)
[2020-12-05] MEDS: HYDROmorphone 0.5 MG/0.5 ML SYRINGE IVP PRN ×2 (05:55→13:19)
[2020-12-05] MEDS: SUCRALFATE 1 GM TAB PO SCH ×4 (05:55→20:53)
--- NOTE | 2020-12-05 07:05 | XR ---
EXAMINATION TYPE: XR chest 1V portable DATE OF EXAM: 12/05/2020 CLINICAL HISTORY: Difficulty breathing progress study. TECHNIQUE: Single AP portable upright view of the chest is obtained. COMPARISON: Chest x-ray from one day earlier and older studies. FINDINGS: Persistent multifocal and confluent opacities bilaterally greater in the left lung versus right upper lung. The prior visualized small right apical pneumothorax not as well-seen on current st udy. Silhouetting left heart border redemonstrated. Osseous structures remain intact. Overlying bilat eral metallic nipple ornaments are redemonstrated. Small right pleural effusion or pleural fluid davey ection with lateral extension redemonstrated IMPRESSION: No right-sided pneumothorax clearly seen on current study. Suspect interval complete reso lution. Persistent multifocal and confluent opacities bilaterally more prominent in the left lung con sistent with covid-19 infection are redemonstrated without significant interval change, small right p leural effusion or fluid collection slightly more prominent from most recent x-ray.
[2020-12-05] MEDS: SYMBICORT 80-4.5 MCG INHALER INHALATION SCH ×2 (08:14→20:27)
[2020-12-05] MEDS: CHOLECALCIFEROL 25 MCG (1000 IU) TABLET PO SCH (09:10)
[2020-12-05] MEDS: ASCORBIC ACID 500 MG TAB PO SCH (09:12)
[2020-12-05] MEDS: BENZONATATE 100 MG CAP PO SCH ×3 (09:13→21:04)
[2020-12-05] MEDS: DULoxetine HCL 60 MG CAPSULE.DR PO SCH (09:13)
[2020-12-05] MEDS: ZINC SULFATE 220 MG CAP PO SCH (09:13)
[2020-12-05] MEDS: PROPRANOLOL LA 60 MG CAP.SA.24H PO SCH (09:13)
[2020-12-05] MEDS: TOPIRAMATE 25 MG TAB PO SCH (09:13)
[2020-12-05] MEDS: buPROPion XL 150 MG TAB.ER.24H PO SCH (09:14)
[2020-12-05] MEDS: ARIPiprazole 5 MG TAB PO SCH (09:14)
[2020-12-05] MEDS: DEXAMETHASONE SOD PHOSPHATE 10 MG/ML 1 ML VIAL IV SCH (09:15)
[2020-12-05] MEDS: PANTOPRAZOLE 40 MG/10 ML VIAL IV SCH (09:16)
[2020-12-05] MEDS: ENOXAPARIN 40 MG/0.4 ML SYRINGE SQ SCH (09:18)
[2020-12-05] MEDS ORDERED: FUROSEMIDE 10 MG/ML 4 ML VIAL IV STA (10:50)
--- NOTE | 2020-12-05 10:50 | P.PN ---
Subjective Progress Note Date: 12/05/20 39-year-old. Patient is well-known to me as the patient was hospitalized around 3 weeks ago for bilateral pneumonia related to COVID-19 infection complicated by respiratory failure, requiring intubation mechanical ventilation and during the course of her treatment the patient developed bilateral pneumothoraces and the patient had bilateral chest tube insertion. Ultimately the patient was weaned off the mechanical ventilator, chest tubes were removed and the patient was discharged home. During the course of her treatment, the patient also became bacteremic with MSSA. She developed significant weakness, and she was also noted is eating for nutritional support. She was discharged home on oxygen 4 L per minute nasal cannula. She came in today to the emergency department complaining of a acute onset pain in her right side of the abdomen somewhat between the right upper quadrant and right lower quadrant. CAT scan showed distended gallbladder. There was also some evidence of enteritis. Noted the patient's LFTs were normal including AST and ALT. Alkaline phosphatase was slightly elevated. Bilirubin was normal. Computed tomography scan of the abdomen showed a common bile duct that was done distended measuring 6 mm in size of the gallbladder was hydropic. Upon further questioning, the patient was having diffuse body aches and the patient was drinking tequila large quantities to control her pain. Her amylase and lipase are within normal limits. Her chest x-ray showed diffuse bilateral pulmonary infiltrates and there was some mild enlargement in the right sided pneumonia thorax impaired to the earlier chest x-ray that was done at time of discharge. For that reason, a CTA scan of the chest was done and the CT angiogram showed no evidence of any pulmonary embolism. There was still diffuse bilateral pulmonary infiltrates which were looking somewhat improved. There was also a right-sided pneumothorax around 10- 15% and there was also evidence of bullous changes in the right and the left lungs bilaterally mainly in the lung apices. The patient is on oxygen 4 L per minute nasal cannula. She denies having any hemoptysis. No pleurisy. 12/04/2020, the patient is being seen in follow-up. She remains on oxygen at 8 L and her pulse ox is currently at 93%. She has occasional cough. Denies having any worsening shortness of breath. Overall rest or status is limited as the patient is still recovering from her COVID-19 related pneumonia. She also had developed a 10-15% pneumothorax on the right. A follow-up chest x-ray will be ordered today. This has not been done. Meanwhile, her HIDA scan came back negative and the patient was found to have a normal ejection fraction. On today's evaluation of 12/05/2020, the patient is on 10 L of oxygen by nasal cannula and the pulse ox is around 97%. She is comfortable. A repeat chest x- ray was done yesterday and also another one done today and on today's chest x- ray there is no right-sided pneumothorax clearly seen. Suspect interval complete resolution of the right-sided pneumothorax. However, there is per sistent multifocal and, on opacities bilaterally consistent with COVID-19 related pneumonia. There is also a right-sided pleural effusion and the patient is made aware of that. Her voice remains hoarse and the patient is still struggling with her breathing. She is using incentive spirometer. She is tolerating her diet. No nausea. No vomiting. No diarrhea. No abdominal pain. No chest pain. Objective - Vital Signs Vital signs: Vital Signs Temp 97.8 F 12/05/20 02:20 Pulse 86 12/05/20 02:20 Resp 19 12/05/20 02:20 BP 93/56 12/05/20 02:20 Pulse Ox 92 L 12/05/20 02:20 Intake & Output 12/04/20 12/05/20 12/05/20 18:59 06:59 18:59 Intake Total 838 Balance 838 Weight 56.3 kg 56.8 kg Intake: Oral 838 Other: Voiding Method Bedpan Bedpan # Voids 2 1 - Exam Gen. appearance, comfortable not in distress currently on 10 L of oxygen by nasal cannula Head exam was generally normal. There was no scleral icterus or corneal arcus. Mucous membranes were moist. Neck was supple and without jugular venous distension, thyromegaly, or carotid bruits. Carotids were easily palpable bilaterally. There was no adenopathy. Lungs sounds are diminished and the patient has contacted the mid and lower lung bases bilaterally. The chest tube insertion site on the right and the left side the chest tubes are all well-healed. Abdominal exam revealed normal bowel sounds. The abdomen was soft, non-tender, and without masses, organomegaly, or appreciable enlargement of the abdominal aorta. Examination of the extremities revealed easily palpable radial, femoral and pedal pulses. There was no cyanosis, clubbing or edema. The patient had diffuse muscle atrophy no deformities. Examination of the skin revealed no evidence of significant rashes, suspicious appearing nevi or other concerning lesions. Neurologically, the patient is awake and alert and the patient does not have any focal neurological deficit. Cranial nerves are essentially intact. The patient has global muscle weakness in all 4 extremities. - Labs CBC & Chem 7: 12/03/20 12:14 12/03/20 12:14 Labs: Microbiology - Last 24 Hours (Table) 12/03/20 12:28 Blood Culture - Preliminary Blood No Growth after 24 hours 12/03/20 12:25 Blood Culture - Preliminary Blood No Growth after 24 hours Assessment and Plan Plan: 1 chronic hypoxemic respiratory failure secondary to COVID 19 pneumonia. The patient was intubated and mechanically ventilated back in October and early November 2020. She ultimately recovered following prolonged mechanical ventilation and intubation and during the course of her disease, the patient developed pneumonia, empyema involving the right lung where the pleural fluid and the sputum both return of the positive for MSSA. The patient also developed a persistent pneumothorax on the right even after removal of the right-sided chest tube. For now, her respiratory status predominantly related to Covid 19 related hypoxemia. The patient is on 10 by nasal cannula. The right-sided pneumothorax is probably no other of 10% and a small and it has not progressed significantly. As such, I do not think there is any further chest tube insertion. She has also developed a right-sided pleural effusion which may need to be drained at a later stage knowing that the patient has grown MSSA the pleural fluid. Subsequent follow-up another chest x-ray from yesterday and today showed the minor motion of the right-sided pneumothorax from yesterday and a complete resolution on today's chest x-ray. The patient continues to have confluent infiltrates related to COVID-19 related pneumonia and the patient has a more right-sided pleural effusion. 2 mild intermittent chronic bronchial 3 mild pain under investigation. The patient was drinking alcohol in large amounts/quantities at home dose of breath or chronic mesentery and pain. Amylase and lipase are normal. Alkaline phosphatase is elevated. She has a hydropic gallbladder. No evidence of any cholecystitis. HIDA scan was also done. General surgeries on the case. Her pain is subsided 4 bilateral pneumothoraces requiring bilateral chest tube insertion with adequate expansion, with some residual pneumothorax on the right 5 chronic anemia 6 History of immunodeficiency disorder. 7 Irritable bowel syndrome. 8 History of migraine. 9 Fibromyalgia. 10 History of chronic back pain. 11 MSSA bacteremia in addition to possible empyema and pneumonia, treated 12 History of chronic tobacco dependence, vaping., 13 acute on top of chronic anemia 14 history of alcoholism, drinking tequila a daily basis 15 history of chronic pain dependence 16 history of chronic anxiety/depression KIMBERLY Plan Right-sided pneumothorax seem to be smaller or even resolved on today's chest x- ray The patient has COVID-19 related pulmonary infiltrates underlying her hypoxemia The patient has a right-sided pleural effusion that needs to be further monitored and the drainage can be considered at a later stage Consult IR for the possibility of draining the right-sided pleural effusion. The patient has a low practice troponin level. I really doubt an underlying pleural space infection Wean down the FiO2 and provide the patient incentive spirometer. resumed the patient's medication from home provide the patient another incentive spirometer We'll continue to follow
--- NOTE | 2020-12-05 16:03 | P.PN ---
Subjective Progress Note Date: 12/05/20 This is a 39-year-old female patient of Dr. Gonzalez with past medical history of GI bleed in 2008, July 2020 was admitted for GI bleed secondary to 2 nonbleeding antral ulcers requiring transfusion 2 units packed RBCs, tobacco use, alcohol abuse, recurrent depression, generalized anxiety disorder. Patient was diagnosed with COVID-19 on October 30. She had lengthy admission, for which she required hospitalization until November 29 2020. She had complications from COVID-19 include ventilation intubation for respiratory failure, after she failed BiPAP treatments, she received Tocilizumab infusion, she has pulmonary to see show pneumonia, and severe pulmonary interstitial and airspace edema, she required chest tube placements bilaterally, she had 3 spontaneous pneumothoraces, negative for pulmonary emboli, she did not require pressors, at that time, right chest tube was placed on November 06, it November 08, and November 25, left chest tube, November 07 that she was seen by Dr. Conn during the last admission, and Dr. Tapia cardiothoracic her chest tube was removed on November 27 right . The patient went home on room air, no oxygen requirements needed home therapies provided She has chronic anemia of chronic disease, history of bleeding ulcers no alcohol abuse, primary immune deficiency state, recurrent depression general since IT disorder, mild intermittent bronchial asthma, and migraines tobacco use, sepsis with MSSA bacteremia with MSSA pneumonia, moderate protein calorie malnutrition, GERD, thrush, She was seen in emergency room on December 01 she thought that she had dehiscence of the wound, the stitches was accidentally broken when the lifted her up and her arms up. There was no shortness of breath at that time, now she comes back December 03, with significant sharp right-sided abdominal pain, that woke her from her sleep.secondary to right upper quadrant right lower quadrant abdominal pain, without any migration, she was discharged, with outpatient workup for gallbladder colic for which consultation was made with Dr. Portillo. Labs at that time, shows no leukocytosis, she is anemic at 8.2, low potassium at 3.3, platelets normal at 412, radiology shows ultrasound borderline common bile duct at 6 mm, hydropic gallbladder, fluid filled small bowel loops, lung changes consistent with chronic bilateral infection, there is slight worsening of the right pneumothorax, no amount twice calculated from radiology for severity . Patient was discharged, to have an outpatient HIDA scan. Patient now comes back 5 hours later, with difficulty breathing. Symptoms of dyspnea has worsened, over the past several hours, and has some chills. Patient's no admitted, with consultation to pulmonary. Chest x-ray was reviewed by Dr. Davison, for which he did not recommend chest tube placement at this time, carotid markers are elevated, worse from November 23, LDH 925, CRP 26, lipase normal 31, Covid test negative from November 23 UCG negative computed tomography scan as requested no pulmonary emboli on CTA, small right pneumothorax, extensive infiltrate bilateral lungs, compatible with atypical pneumonia, pulmonary artery diameter at the bifurcation is 2.4 cm, correlate for pulmonary hypertension, subcutaneous and eczema on the right side. She is now on 7 L NC o2 sat 94% bp at 90/53 12/04 patient examined bedside. Is comfortably laying in bed. She continues to require 10 L of high flow oxygen saturating at 92-93%. She complains of occasional cough. Patient denies any pain in the abdomen currently. HIDA scan obtained was negative and had normal ejection fraction. Patient was evaluated by surgery and ruled out to be biliary in origin. Patient does have 10-15% pneumothorax on the right with she will be monitored on repeat chest x-ray. She does have pleural effusion for which IR consult has been made for thoracentesis to be performed on Sunday. Patient does have history of MSSA from the pleural fluid on the right. Patient was drinking heavy amount of alcohol to help with her pain at home which could be responsible for patient's extreme pain. No other etiology found as patient sites of chest tube were healing well. Patient is currently on Dilaudid 0.5 every 3 hours for pain control. , We will discontinue Dilaudid 1 mg every 3 hours. Continue Percocet for pain control. 12/05 patient examined bedside. Continues to be on 8 L oxygen dose into her shortness of breath on minimal exertion. She does have some congestion medicines denies any abdominal pain. Patient was taking higher doses of Excedrin and alcohol for pain control. Patient is using Dilaudid intermittently and is on oral Percocet. Neck is otherwise stable with temp of 98.7 respiratory rate 22 blood pressure 87/55. No blood work available today. IgG 76 IgA 221 and IgA 107. Chest x-ray from today suggest no right-sided pneumothorax with some opacities mildly troponin suggestive of COVID-19 pneumonia. Patient does have right-sided pleural effusion. Plan for thoracentesis tomorrow with INR Review of system Constitutional: Denies chills, Denies fever, Denies lethargy, Denies malaise, Denies poor appetite, Denies weakness, Denies weight loss Eyes: denies decreased vision, denies diplopia, denies discharge, denies pain Ears: deny: decreased hearing Ears, nose, mouth and throat: Denies dental pain, Denies headache, Denies nasal discharge, Denies nose pain Cardiovascular: Denies chest pain, Denies decreased exercise tolerance, Denies edema, Denies high blood pressure, Denies irregular heart beat, Denies palpitations, Denies paroxysmal nocturnal dyspnea, Denies rapid heart beat, Denies shortness of breath Respiratory: Denies congestion, endorses cough, Denies cough with sputum, endorses dyspnea, Denies home oxygen, Denies wheezing Gastrointestinal: Denies abdominal pain, Denies change in bowel habits, Denies coffee ground emesis, Denies early satiety, Denies excessive gas, Denies hea rtburn, Denies hematemesis, Denies hematochezia, Denies loss of appetite, Denies nausea, Denies vomiting Genitourinary: Denies dysuria, Denies flank pain, Denies kidney stones, Denies menorrhagia, Denies urgency, Denies urinary frequency Musculoskeletal: Denies gait dysfunction, Denies limitation of motion, Denies morning stiffness, Denies muscle cramps Integumentary: Denies rash, Denies wounds, Denies brittle nails, Denies change in hair/nails, Denies darkening of skin Neurological: Denies balance difficulties, Denies change in speech, Denies double vision, Denies gait dysfunction, Denies loss of vision, Denies motor disturbance, Denies numbness, Denies paralysis, Denies paresthesias, Denies seizures Psychiatric: Denies anxiety, Denies depression Endocrine: Denies excessive sweating, Denies excessive thirst, Denies high blood sugars, Denies palpitations Hematologic/Lymphatic: Denies easy bruising, Denies lymphadenopathy Objective - Vital Signs Vital signs: Vital Signs Temp 98.7 F 12/05/20 09:00 Pulse 78 12/05/20 09:00 Resp 22 12/05/20 09:00 BP 87/55 12/05/20 09:00 Pulse Ox 98 12/05/20 09:00 Intake & Output 12/04/20 12/05/20 12/05/20 18:59 06:59 18:59 Intake Total 838 460 Output Total 650 Balance 838 -190 Weight 56.3 kg 56.8 kg Intake: Oral 838 460 Output: Urine 650 Other: Voiding Method Bedpan Bedpan Bedpan # Voids 2 1 # Bowel Movements 1 - Exam - Constitutional General appearance: cooperative, no acute distress, thin-appearing on 10 L high flow - EENT Eyes: anicteric sclerae, PERRLA, normal appearance ENT: hearing grossly normal - Neck Neck: no lymphadenopathy, normal ROM, no other, no rigidity, no stridor, no thyromegaly - Respiratory Respiratory: bilateral diminished with crackles at the bases - Cardiovascular Rhythm: regular Heart sounds: normal: S1, S2 Abnormal Heart Sounds: no systolic murmur, no diastolic murmur, no rub, no S3 Gallop, no S4 Gallop, no click, no other - Gastrointestinal General gastrointestinal: normal bowel sounds, soft - Integumentary Integumentary: site of chest tubes appear to be healing - Neurologic Neurologic: no sensory and motor deficit, no coordination - Musculoskeletal Musculoskeletal: gait not assessed , strength equal bilaterally - Psychiatric Psychiatric: A&O x's 3, appropriate affect - Labs CBC & Chem 7: 12/03/20 12:14 12/03/20 12:14 Labs: Microbiology - Last 24 Hours (Table) 12/03/20 12:28 Blood Culture - Preliminary Blood No Growth after 48 hours 12/03/20 12:25 Blood Culture - Preliminary Blood No Growth after 48 hours Assessment and Plan Plan: 1. Acute hypoxic respiratory failure secondary to recent Covid 19 pneumonia diagnosed with,prior MSSA pneumonia, current right pneumothorax and pleural effusion , CTA failed to reveal any pulmonary emboli, has right pleural effusion, small pneumothorax, serial chest imaging, to monitor for the pneumothorax right side, Dr. Davison has been consulted. IR consult for thoracentesis 2. Right sided pneumothorax requiring chest tube 11/06, 11/08, 11/25 last Imitrex was discontinued on November 27. , continue only Percocet for pain control. We will reduce patient's downloaded does. Chest x-ray with no pneumothorax. 3. Acute exacerbation of mild intermittent bronchial asthma. Continue Ventolin inhaler 4 times daily as needed. 4. Recurrent depression and generalized anxiety disorder: She is on multiple medication between BuSpar, Abilify, Wellbutrin and Cymbalta 5. Primary immunodeficiency, stable. immunoglobulin IgG A and M was normal 6. Chronic anemia of chronic disease most likely due to history of bleeding ul cers and alcohol abuse and NSAID use. Continue pantoprazole 40 DVT. 7. Tobacco use and dependence including vaping. 8. Daily alcohol use/abuse. Stable. No episodes of DVT during the last admiss ion, 9. Debility: Continue physical therapy. 10. Acute anemia secondary to sepsis without blood loss. 11. Migraine headaches. Continue Inderal 60 mg daily. No Fioricet secondary to insomnia, continue on Topamax, Elavil 12. Sepsis with MSSA bacteremia, resolved continue to monitor for relapsing sepsis 13. Moderate protein calorie malnutrition. 14. Gastroesophageal reflux disease with history of bleeding ulcers. Continue Protonix 40 mg daily and Carafate 1 g 4 times daily. 15. Tachycardia. Patient resumed on Inderal, . 16. Thrush. Completed nystatin. 17. Insomnia. Continue Elavil 10 mg at bedtime. 18. DVT prophylaxis. Lovenox. 19 . Right abd pain - ruled out biliary colic , HIDA neg likley sec to alcoholic binge and NSAIDs induced gastritis, continue pantoprazole
[2020-12-05] MEDS: AMITRIPTYLINE HCL 10 MG TAB PO SCH (20:53)
[2020-12-05] MEDS: MELATONIN 3 MG TABLET PO SCH (20:55)
[2020-12-06] MEDS: HYDROmorphone 0.5 MG/0.5 ML SYRINGE IVP PRN ×4 (03:07→23:10)
[2020-12-06] MEDS: SUCRALFATE 1 GM TAB PO SCH ×4 (06:33→20:55)
[2020-12-06] MEDS: oxyCODONE-APAP 5-325MG 1 EACH TAB PO PRN ×3 (06:33→20:55)
[2020-12-06] MEDS: ALBUTEROL HFA INHALER INHALATION SCH ×3 (07:55→20:20)
[2020-12-06] MEDS: SYMBICORT 80-4.5 MCG INHALER INHALATION SCH ×2 (07:55→20:20)
[2020-12-06] MEDS: ZINC SULFATE 220 MG CAP PO SCH (09:16)
[2020-12-06] MEDS: ASCORBIC ACID 500 MG TAB PO SCH (09:16)
[2020-12-06] MEDS: PANTOPRAZOLE 40 MG/10 ML VIAL IV SCH (09:16)
[2020-12-06] MEDS: CHOLECALCIFEROL 25 MCG (1000 IU) TABLET PO SCH (09:16)
[2020-12-06] MEDS: buPROPion XL 150 MG TAB.ER.24H PO SCH (09:17)
[2020-12-06] MEDS: ARIPiprazole 5 MG TAB PO SCH (09:17)
[2020-12-06] MEDS: DEXAMETHASONE SOD PHOSPHATE 10 MG/ML 1 ML VIAL IV SCH (09:18)
[2020-12-06] MEDS: TOPIRAMATE 25 MG TAB PO SCH (09:18)
[2020-12-06] MEDS: PROPRANOLOL LA 60 MG CAP.SA.24H PO SCH (09:18)
[2020-12-06] MEDS: DULoxetine HCL 60 MG CAPSULE.DR PO SCH (09:18)
[2020-12-06] MEDS: BENZONATATE 100 MG CAP PO SCH ×3 (09:28→20:55)
[2020-12-06 09:58] LABS: C Reactive Protein 12.2 mg/dL (<1.0)
[2020-12-06] MEDS ORDERED: Magnesium Replacement Protocol 1 EACH MISC MISCELLANE PRN (10:03)
--- NOTE | 2020-12-06 11:01 | XR ---
EXAMINATION TYPE: XR chest 1V DATE OF EXAM: 12/06/2020 CLINICAL HISTORY: Difficulty breathing progress study. Status post right-sided thoracentesis. TECHNIQUE: Single AP portable upright view of the chest is obtained. COMPARISON: Chest x-ray from one day earlier and older studies. FINDINGS: Persistent multifocal and confluent opacities bilaterally greater in the left lung versus right upper lung. Silhouetting left heart border redemonstrated. Osseous structures remain intact. O verlying bilateral metallic nipple ornaments are redemonstrated. Small right pleural pleural fluid co llection with lateral extension redemonstrated with some interval improvement after right-sided thora centesis. No new pneumothorax identified. IMPRESSION: No right-sided pneumothorax after thoracentesis. Persistent multifocal and confluent opac ities bilaterally more prominent in the left lung consistent with covid-19 infection are redemonstrat ed without significant interval change from one day earlier. Small right pleural fluid collection imp roved after thoracentesis.
[2020-12-06] MEDS: ENOXAPARIN 40 MG/0.4 ML SYRINGE SQ SCH (11:14)
[2020-12-06] MEDS: MAGNESIUM SULFATE-D5W PMX 1 GM in DEXTROSE/WATER 1 100ML.BAG IVPB SCH ×3 (11:14→17:35)
--- NOTE | 2020-12-06 11:33 | US ---
EXAMINATION TYPE: US thoracentesis DATE OF EXAM: 12/06/2020 COMPARISON: NONE HISTORY: Pleural effusion. FINDINGS: Maximal barrier technique was utilized. The skin overlying a suitable pocket of fluid was localized and the overlying skin prepped and draped. Lidocaine was used for local anesthesia. Ultras ound was used with sterile technique. A 5 [place] catheter over guide needle was advanced into the pl eural fluid collection using ultrasound guidance and the catheter advanced, needle removed. Approxim ately 3 cc of serous sanguinous fluid was removed. Catheter was withdrawn and hemostasis achieved. There is no immediate complication. The patient discharged in stable condition without complication. Of note, the effusion shows internal septations. IMPRESSION: STATUS POST ULTRASOUND GUIDED THORACENTESIS, POST PROCEDURE CHEST X-RAY PENDING. THIS TX OCEDURE WAS PERFORMED BY THE UNDERSIGNED. Specimen submitted for laboratory analysis.
--- NOTE | 2020-12-06 13:35 | P.PN ---
Subjective Progress Note Date: 12/06/20 HISTORY OF PRESENT ILLNESS This is a 39-year-old female patient of Dr. Gonzalez with past medical history of GI bleed in 2008, July 2020 was admitted for GI bleed secondary to 2 no nbleeding antral ulcers requiring transfusion 2 units packed RBCs, tobacco use, alcohol abuse, recurrent depression, generalized anxiety disorder. Patient was diagnosed with COVID-19 on October 30. She had lengthy admission, for which she required hospitalization until November 29 2020. She had complications from COVID- 19 include ventilation intubation for respiratory failure, after she failed BiPAP treatments, she received Tocilizumab infusion, she has pulmonary to see show pneumonia, and severe pulmonary interstitial and airspace edema, she required chest tube placements bilaterally, she had 3 spontaneous pneumothoraces, negative for pulmonary emboli, she did not require pressors, at that time, right chest tube was placed on November 06, it November 08, and November 25, left chest tube, November 07 that she was seen by Dr. Conn during the last admission, and Dr. Tapia cardiothoracic her chest tube was removed on November 27 right . The patient went home on room air, no oxygen requirements needed home therapies provided She has chronic anemia of chronic disease, history of bleeding ulcers no alcohol abuse, primary immune deficiency state, recurrent depression general since IT disorder, mild intermittent bronchial asthma, and migraines tobacco use, sepsis with MSSA bacteremia with MSSA pneumonia, moderate protein calorie malnutrition, GERD, thrush, She was seen in emergency room on December 01 she thought that she had dehiscence of the wound, the stitches was accidentally broken when the lifted her up and her arms up. There was no shortness of breath at that time, now she comes back December 03, with significant sharp right-sided abdominal pain, that woke her from her sleep.secondary to right upper quadrant right lower quadrant abdominal pain, without any migration, she was discharged, with outpatient workup for gallbladder colic for which consultation was made with Dr. Portillo. Labs at that time, shows no leukocytosis, she is anemic at 8.2, low potassium at 3.3, platelets normal at 412, radiology shows ultrasound borderline common bile duct at 6 mm, hydropic gallbladder, fluid filled small bowel loops, lung changes consistent with chronic bilateral infection, there is slight worsening of the right pneumothorax, no amount twice calculated from radiology for severity . Patient was discharged, to have an outpatient HIDA scan. Patient now comes back 5 hours later, with difficulty breathing. Symptoms of dyspnea has worsened, over the past several hours, and has some chills. Patient's no admitted, with consultation to pulmonary. Chest x-ray was reviewed by Dr. Davison, for which he did not recommend chest tube placement at this time, carotid markers are elevated, worse from November 23, LDH 925, CRP 26, lipase normal 31, Covid test negative from November 23 UCG negative computed tomography scan as requested no pulmonary emboli on CTA, small right pneumothorax, extensive infiltrate bilateral lungs, compatible with atypical pneumonia, pulmonary artery diameter at the bifurcation is 2.4 cm, correlate for pulmonary hypertension, subcutaneous and eczema on the right side. She is now on 7 L NC o2 sat 94% bp at 90/53 12/04 patient examined bedside. Is comfortably laying in bed. She continues to require 10 L of high flow oxygen saturating at 92-93%. She complains of occasional cough. Patient denies any pain in the abdomen currently. HIDA scan obtained was negative and had normal ejection fraction. Patient was evaluated by surgery and ruled out to be biliary in origin. Patient does have 10-15% pneumothorax on the right with she will be monitored on repeat chest x-ray. She does have pleural effusion for which IR consult has been made for thoracentesis to be performed on Sunday. Patient does have history of MSSA from the pleural fluid on the right. Patient was drinking heavy amount of alcohol to help with her pain at home which could be responsible for patient's extreme pain. No other etiology found as patient sites of chest tube were healing well. Patient is currently on Dilaudid 0.5 every 3 hours for pain control. , We will discontinue Dilaudid 1 mg every 3 hours. Continue Percocet for pain control. 12/05 patient examined bedside. Continues to be on 8 L oxygen dose into her shortness of breath on minimal exertion. She does have some congestion medicines denies any abdominal pain. Patient was taking higher doses of Excedrin and alcohol for pain control. Patient is using Dilaudid intermittently and is on oral Percocet. Neck is otherwise stable with temp of 98.7 respiratory rate 22 blood pressure 87/55. No blood work available today. IgG 76 IgA 221 and IgA 107. Chest x-ray from today suggest no right-sided pneumothorax with some opacities mildly troponin suggestive of COVID-19 pneumonia. Patient does have right-sided pleural effusion. Plan for thoracentesis tomorrow with INR 12/06: Patient is currently on 8 L high flow nasal cannula with pulse ox of 96%. She's been afebrile, heart rate 85, blood pressure 109/61. D-dimer 10.25. LDH 687. C-reactive protein 12.2. Patient is scheduled today with interventional radiology for thoracentesis right side. Patient to increase activity in her room. REVIEW OF SYSTEMS Constitutional: Denies chills, Denies fever, Denies lethargy, Denies malaise, Denies poor appetite, Denies weakness, Denies weight loss Eyes: denies decreased vision, denies diplopia, denies discharge, denies pain Ears: deny: decreased hearing Ears, nose, mouth and throat: Denies dental pain, Denies headache, Denies nasal discharge, Denies nose pain Cardiovascular: Denies chest pain, Denies decreased exercise tolerance, Denies edema, Denies high blood pressure, Denies irregular heart beat, Denies palpitations, Denies paroxysmal nocturnal dyspnea, Denies rapid heart beat, Denies shortness of breath Respiratory: Denies congestion, endorses cough, Denies cough with sputum, endorses dyspnea, Denies home oxygen, Denies wheezing Gastrointestinal: Denies abdominal pain, Denies change in bowel habits, Denies c offee ground emesis, Denies early satiety, Denies excessive gas, Denies heartburn, Denies hematemesis, Denies hematochezia, Denies loss of appetite, Denies nausea, Denies vomiting Genitourinary: Denies dysuria, Denies flank pain, Denies kidney stones, Denies menorrhagia, Denies urgency, Denies urinary frequency Musculoskeletal: Denies gait dysfunction, Denies limitation of motion, Denies morning stiffness, Denies muscle cramps Integumentary: Denies rash, Denies wounds, Denies brittle nails, Denies change in hair/nails, Denies darkening of skin Neurological: Denies balance difficulties, Denies change in speech, Denies double vision, Denies gait dysfunction, Denies loss of vision, Denies motor disturbance, Denies numbness, Denies paralysis, Denies paresthesias, Denies seizures Psychiatric: Denies anxiety, Denies depression Endocrine: Denies excessive sweating, Denies excessive thirst, Denies high blood sugars, Denies palpitations Hematologic/Lymphatic: Denies easy bruising, Denies lymphadenopathy PHYSICAL EXAMINATION Gen: This is a thin 39-year-old female. She appears to be in no acute distress.] HEENT: Head is atraumatic, normocephalic. Pupils equal, round. Sclerae is anicteric. NECK: Supple. No JVD. No lymphadenopathy. No thyromegaly. LUNGS: Diminished with crackles at the bases. No intercostal retractions. HEART: Regular rate and rhythm. No murmur. ABDOMEN: Soft. Bowel sounds are present. No masses. No tenderness. EXTREMITIES: No pedal edema. No calf tenderness. Dorsalis pedis palpable bilaterally. NEUROLOGICAL: Patient is awake, alert and oriented x3. Cranial nerves 2 through 12 are grossly intact. ASSESSMENT AND PLAN 1. Acute hypoxic respiratory failure secondary to recent Covid 19 pneumonia diagnosed with,prior MSSA pneumonia, current right pneumothorax and pleural effusion , CTA failed to reveal any pulmonary emboli, has right pleural effusion, small pneumothorax, serial chest imaging, to monitor for the pneumothorax right side, Dr. Davison has been consulted. IR consult for th oracentesis right side today 2. Right sided pneumothorax requiring chest tube 11/06, 11/08, 11/25 last Imitrex was discontinued on November 27. , continue only Percocet for pain control. We will reduce patient's downloaded does. Chest x-ray with no pneumothorax. 3. Acute exacerbation of mild intermittent bronchial asthma. Continue Ventolin inhaler 4 times daily as needed. 4. Recurrent depression and generalized anxiety disorder: She is on multiple medication between BuSpar, Abilify, Wellbutrin and Cymbalta 5. Primary immunodeficiency, stable. immunoglobulin IgG A and M was normal 6. Chronic anemia of chronic disease most likely due to history of bleeding ulcers and alcohol abuse and NSAID use. Continue pantoprazole 40 DVT. 7. Tobacco use and dependence including vaping. 8. Daily alcohol use/abuse. Stable. No episodes of DTS during the last admission, 9. Debility: Continue physical therapy. 10. Acute anemia secondary to sepsis without blood loss. 11. Migraine headaches. Continue Inderal 60 mg daily. No Fioricet secondary to insomnia, continue on Topamax, Elavil 12. Sepsis with MSSA bacteremia, resolved continue to monitor for relapsing sepsis 13. Moderate protein calorie malnutrition. 14. Gastroesophageal reflux disease with history of bleeding ulcers. Continue Protonix 40 mg daily and Carafate 1 g 4 times daily. 15. Tachycardia. Patient resumed on Inderal, . 16. Thrush. Completed nystatin. 17. Insomnia. Continue Elavil 10 mg at bedtime. 18. DVT prophylaxis. Lovenox. 19 . Right abd pain - ruled out biliary colic , HIDA neg likley sec to alcoholic binge and NSAIDs induced gastritis, continue pantoprazole DISCHARGE PLAN TBD. PT consults. Impression and plan of care have been directed as dictated by the signing physician. Isabel Samayoa nurse practitioner acting as scribe for signing phys ician. Objective - Vital Signs Vital signs: Vital Signs Temp 98.3 F 12/06/20 09:10 Pulse 92 12/06/20 09:10 Resp 16 12/06/20 09:10 BP 100/55 12/06/20 09:10 Pulse Ox 96 12/06/20 07:56 Intake & Output 12/05/20 12/06/20 12/06/20 18:59 06:59 18:59 Intake Total 460 700 120 Output Total 650 750 150 Balance -190 -50 -30 Weight 61.5 kg Intake: Oral 460 700 120 Output: Urine 650 750 150 Other: Voiding Method Bedpan Bedpan # Voids 1 # Bowel Movements 1 - Labs CBC & Chem 7: 12/03/20 12:14 12/03/20 12:14 Labs: Abnormal Lab Results - Last 24 Hours (Table) 12/06/20 12/06/20 Range/Units 07:44 07:44 D-Dimer 10.25 H (<0.60) mg/L FEU Lactate Dehydrogenase 687 H (313-618) U/L C-Reactive Protein 12.2 H (<1.0) mg/dL Microbiology - Last 24 Hours (Table) 12/03/20 12:28 Blood Culture - Preliminary Blood No Growth after 48 hours 12/03/20 12:25 Blood Culture - Preliminary Blood No Growth after 48 hours
--- NOTE | 2020-12-06 14:40 | P.PN ---
Subjective Progress Note Date: 12/06/20 Principal diagnosis: Acute hypoxic respiratory failure, multifactorial mostly secondary to recent COVID-19 pneumonia and bilateral pneumothoraces and pleural effusion 39-year-old. Patient is well-known to me as the patient was hospitalized around 3 weeks ago for bilateral pneumonia related to COVID-19 infection complicated by respiratory failure, requiring intubation mechanical ventilation and during the course of her treatment the patient developed bilateral pneumothoraces and the patient had bilateral chest tube insertion. Ultimately the patient was weaned off the mechanical ventilator, chest tubes were removed and the patient was discharged home. During the course of her treatment, the patient also became bacteremic with MSSA. She developed significant weakness, and she was also noted is eating for nutritional support. She was discharged home on oxygen 4 L per minute nasal cannula. She came in today to the emergency department complaining of a acute onset pain in her right side of the abdomen somewhat between the right upper quadrant and right lower quadrant. CAT scan showed distended gallbladder. There was also some evidence of enteritis. Noted the patient's LFTs were normal including AST and ALT. Alkaline phosphatase was slightly elevated. Bilirubin was normal. Computed tomography scan of the abdomen showed a common bile duct that was done distended measuring 6 mm in size of the gallbladder was hydropic. Upon further questioning, the patient was having diffuse body aches and the patient was drinking tequila large quantities to control her pain. Her amylase and lipase are within normal limits. Her chest x-ray showed diffuse bilateral pulmonary infiltrates and there was some mild enlargement in the right sided pneumonia thorax impaired to the earlier chest x-ray that was done at time of discharge. For that reason, a CTA scan of the chest was done and the CT angiogram showed no evidence of any pulmonary embolism. There was still diffuse bilateral pulmonary infiltrates which were looking somewhat improved. There was also a right-sided pneumothorax around 10- 15% and there was also evidence of bullous changes in the right and the left lungs bilaterally mainly in the lung apices. The patient is on oxygen 4 L per minute nasal cannula. She denies having any hemoptysis. No pleurisy. 12/04/2020, the patient is being seen in follow-up. She remains on oxygen at 8 L and her pulse ox is currently at 93%. She has occasional cough. Denies having any worsening shortness of breath. Overall rest or status is limited as the patient is still recovering from her COVID-19 related pneumonia. She also had developed a 10-15% pneumothorax on the right. A follow-up chest x-ray will be ordered today. This has not been done. Meanwhile, her HIDA scan came back negative and the patient was found to have a normal ejection fraction. On today's evaluation of 12/05/2020, the patient is on 10 L of oxygen by nasal cannula and the pulse ox is around 97%. She is comfortable. A repeat chest x- ray was done yesterday and also another one done today and on today's chest x- ray there is no right-sided pneumothorax clearly seen. Suspect interval complete resolution of the right-sided pneumothorax. However, there is persistent multifocal and, on opacities bilaterally consistent with COVID-19 related pneumonia. There is also a right-sided pleural effusion and the patient is made aware of that. Her voice remains hoarse and the patient is still struggling with her breathing. She is using incentive spirometer. She is tole rating her diet. No nausea. No vomiting. No diarrhea. No abdominal pain. No chest pain. Patient was reevaluated today on 12/06/2020, patient is doing better, underwent ultrasound-guided thoracentesis, only 3 mL of fluid were removed. Sent mostly for cultures. Chest x-ray surprisingly looks better today although the fluid drained was minimal. And clinically the patient is feeling better today. She is now on 6 L nasal cannula, and her O2 saturation is 96-99%. Patient is afebrile, she is hemodynamically stable, her C-reactive protein is 12.2 LDH is 687. D-dimer 10.25. Objective - Vital Signs Vital signs: Vital Signs Temp 98.3 F 12/06/20 09:10 Pulse 88 12/06/20 12:41 Resp 18 12/06/20 12:41 BP 98/66 12/06/20 12:41 Pulse Ox 96 12/06/20 12:41 Intake & Output 12/05/20 12/06/20 12/06/20 18:59 06:59 18:59 Intake Total 460 700 120 Output Total 650 750 150 Balance -190 -50 -30 Weight 61.5 kg Intake: Oral 460 700 120 Output: Urine 650 750 150 Other: Voiding Method Bedpan Bedpan Bedpan # Voids 1 # Bowel Movements 1 - Exam Physical Exam: Revealed 39-year-old female in no distress. Head: Atraumatic, normocephalic. HEENT:[Neck is supple.] [No neck masses.] [No thyromegaly.] [No JVD.] Chest: [Clear throughout, no crackles, no rhonchi, no wheezes.] Cardiac Exam: [Normal S1 and S2, no S3 gallop, no murmur.] Abdomen: [Soft, nontender, no megaly, no rebound, no guarding, normal bowel sounds.] Extremities: [No clubbing, no edema, no cyanosis.] Neurological Exam: [No focal neurologic deficit.] Alert and oriented 3. Psychiatric: Normal mood affect and normal mental status examination. Skin: No rashes. - Labs CBC & Chem 7: 12/03/20 12:14 12/03/20 12:14 Labs: Abnormal Lab Results - Last 24 Hours (Table) 12/06/20 12/06/20 Range/Units 07:44 07:44 D-Dimer 10.25 H (<0.60) mg/L FEU Lactate Dehydrogenase 687 H (313-618) U/L C-Reactive Protein 12.2 H (<1.0) mg/dL Microbiology - Last 24 Hours (Table) 12/03/20 12:28 Blood Culture - Preliminary Blood No Growth after 48 hours 12/03/20 12:25 Blood Culture - Preliminary Blood No Growth after 48 hours Assessment and Plan Assessment: Impression: Subacute or possibly chronic hypoxic respiratory failure secondary to COVID-19 pneumonia and pleural effusion as well as barotrauma and bilateral pneumothoraces, both resolved on chest x-ray today. Mild intermittent bronchial asthma Chronic anemia History of immune deficiency disorder. Irritable bowel syndrome Fibromyalgia Chronic back pain History of MSSA bacteremia secondary to empyema History of alcoholism Chronic pain syndrome Chronic generalized anxiety disorder. Recommendation: Continue present supportive care measures Continue oxygen and titrate hopefully could get the option below 5 L and set up oxygen at home Check cultures from the fluids which is only 3 mL removed by radiology. Review chest x-ray today it is reassuring. Continue to COVID-19 cocktail. Incident discharge planning in the next 24-48 hours. Continue to encourage incentive spirometry and ambulation. Time with Patient: Less than 30
[2020-12-06 15:34] LABS: Ferritin 62.8 ng/mL (10.0-291.0)
[2020-12-06 18:06] LABS: Appearance,BF Hazy; Color,BF Yellow; Nucleated Cells, Body Fluid 1025 /uL; RBC, Body Fluid 8225 /uL
[2020-12-06 18:09] LABS: Mononuclear WBC,Body Fluid 59 %; Polynuclear WBC,Body Fluid 39 %; Total Cells Counted,Body Fluid 100
[2020-12-06] MEDS: MELATONIN 3 MG TABLET PO SCH (20:55)
[2020-12-06] MEDS: AMITRIPTYLINE HCL 10 MG TAB PO SCH (21:42)
[2020-12-07] MEDS: oxyCODONE-APAP 5-325MG 1 EACH TAB PO PRN ×3 (04:49→14:01)
[2020-12-07 05:31] LABS: Total Protein, Body Fluid 2380 mg/dL
[2020-12-07 06:03] LABS: Glucose, BF Source Pleural Fluid; Glucose, Body Fluid 79 mg/dL; LDH, Body Fluid Source Pleural Fluid
[2020-12-07] MEDS: SUCRALFATE 1 GM TAB PO SCH ×2 (06:45→14:01)
[2020-12-07] MEDS: ALBUTEROL HFA INHALER INHALATION SCH ×2 (08:02→11:59)
[2020-12-07] MEDS: SYMBICORT 80-4.5 MCG INHALER INHALATION SCH (08:02)
[2020-12-07] MEDS ORDERED: PANTOPRAZOLE 40 MG TABLET PO SCH (09:00)
[2020-12-07] MEDS ORDERED: SODIUM CHLORIDE 0.65% NASAL SPRAY 44 ML BTL NASAL PRN (09:50)
[2020-12-07] MEDS: ENOXAPARIN 40 MG/0.4 ML SYRINGE SQ SCH (10:01)
[2020-12-07] MEDS: CHOLECALCIFEROL 25 MCG (1000 IU) TABLET PO SCH (10:01)
[2020-12-07] MEDS: buPROPion XL 150 MG TAB.ER.24H PO SCH (10:02)
[2020-12-07] MEDS: ARIPiprazole 5 MG TAB PO SCH (10:02)
[2020-12-07] MEDS: ASCORBIC ACID 500 MG TAB PO SCH (10:02)
[2020-12-07] MEDS: PROPRANOLOL LA 60 MG CAP.SA.24H PO SCH (10:02)
[2020-12-07] MEDS: DEXAMETHASONE SOD PHOSPHATE 10 MG/ML 1 ML VIAL IV SCH (10:03)
[2020-12-07] MEDS: DULoxetine HCL 60 MG CAPSULE.DR PO SCH (10:03)
[2020-12-07] MEDS: BENZONATATE 100 MG CAP PO SCH (10:03)
[2020-12-07] MEDS: TOPIRAMATE 25 MG TAB PO SCH (10:04)
[2020-12-07] MEDS: ZINC SULFATE 220 MG CAP PO SCH (10:04)
--- NOTE | 2020-12-07 13:38 | P.DS ---
Providers Date of admission: 12/03/20 14:12 Expected date of discharge: 12/07/20 Attending physician: Patricia Gonzalez Consults: 12/03/20 14:11 Consult Physician Urgent Consulting Provider: Ofelia Davison Consult Reason/Comments: dyspnea Do you want consulting provider notified?: Already Contacted Consult Physician Urgent Consulting Provider: Lynette Portillo Consult Reason/Comments: ab pain Do you want consulting provider notified?: Yes Primary care physician: Patricia Gonzalez Hospital Course: HISTORY OF PRESENT ILLNESS This is a 39-year-old female patient of Dr. Gonzalez with past medical history of GI bleed in 2008, July 2020 was admitted for GI bleed secondary to 2 nonbleeding antral ulcers requiring transfusion 2 units packed RBCs, tobacco use, alcohol abuse, recurrent depression, generalized anxiety disorder. Patient was diagnosed with COVID-19 on October 30. She had lengthy admission, for which she required hospitalization until November 29 2020. She had complications from COVID-19 include ventilation intubation for respiratory failure, after she failed BiPAP treatments, she received Tocilizumab infusion, she has pulmonary to see show pneumonia, and severe pulmonary interstitial and airspace edema, she required chest tube placements bilaterally, she had 3 spontaneous pneumothoraces, negative for pulmonary emboli, she did not require pressors, at that time, right chest tube was placed on November 06, it November 08, and November 25, left chest tube, November 07 that she was seen by Dr. Conn during the last admission, and Dr. Tapia cardiothoracic her chest tube was removed on November 27 right . The patient went home on room air, no oxygen requirements needed home therapies provided She has chronic anemia of chronic disease, history of bleeding ulcers no alcohol abuse, primary immune deficiency state, recurrent depression general since IT disorder, mild intermittent bronchial asthma, and migraines tobacco use, sepsis with MSSA bacteremia with MSSA pneumonia, moderate protein calorie malnutrition, GERD, thrush, She was seen in emergency room on December 01 she thought that she had dehiscence of the wound, the stitches was accidentally broken when the lifted her up and her arms up. There was no shortness of breath at that time, now she comes back December 03, with significant sharp right-sided abdominal pain, that woke her from her sleep.secondary to right upper quadrant right lower quadrant abdominal pain, without any migration, she was discharged, with outpatient workup for gallbladder colic for which consultation was made with Dr. Portillo. Labs at that time, shows no leukocytosis, she is anemic at 8.2, low potassium at 3.3, platelets normal at 412, radiology shows ultrasound borderline common bile duct at 6 mm, hydropic gallbladder, fluid filled small bowel loops, lung changes consistent with chronic bilateral infection, there is slight worsening of the right pneumothorax, no amount twice calculated from radiology for severity . Patient was discharged, to have an outpatient HIDA scan. Patient now comes back 5 hours later, with difficulty breathing. Symptoms of dyspnea has worsened, over the past several hours, and has some chills. Patient's no admitted, with consultation to pulmonary. Chest x-ray was reviewed by Dr. Davison, for which he did not recommend chest tube placement at this time, carotid markers are elevated, worse from November 23, LDH 925, CRP 26, lipase normal 31, Covid test negative from November 23 UCG negative computed tomography scan as requested no pulmonary emboli on CTA, small right pneumothorax, extensive infiltrate bilateral lungs, compatible with atypical pneumonia, pulmonary artery diameter at the bifurcation is 2.4 cm, correlate for pulmonary hypertension, subcutaneous and eczema on the right side. She is now on 7 L NC o2 sat 94% bp at 90/53 12/04 patient examined bedside. Is comfortably laying in bed. She continues to require 10 L of high flow oxygen saturating at 92-93%. She complains of occasional cough. Patient denies any pain in the abdomen currently. HIDA scan obtained was negative and had normal ejection fraction. Patient was evaluated by surgery and ruled out to be biliary in origin. Patient does have 10-15% pneumothorax on the right with she will be monitored on repeat chest x-ray. She does have pleural effusion for which IR consult has been made for thoracentesis to be performed on Sunday. Patient does have history of MSSA from the pleural fluid on the right. Patient was drinking heavy amount of alcohol to help with her pain at home which could be responsible for patient's extreme pain. No other etiology found as patient sites of chest tube were healing well. Patient is currently on Dilaudid 0.5 every 3 hours for pain control. , We will discontinue Dilaudid 1 mg every 3 hours. Continue Percocet for pain control. 12/05 patient examined bedside. Continues to be on 8 L oxygen dose into her shortness of breath on minimal exertion. She does have some congestion medicines denies any abdominal pain. Patient was taking higher doses of Excedrin and alcohol for pain control. Patient is using Dilaudid intermittently and is on oral Percocet. Neck is otherwise stable with temp of 98.7 respiratory rate 22 blood pressure 87/55. No blood work available today. IgG 76 IgA 221 and IgA 107. Chest x-ray from today suggest no right-sided pneumothorax with some opacities mildly troponin suggestive of COVID-19 pneumonia. Patient does have right-sided pleural effusion. Plan for thoracentesis tomorrow with INR 12/06: Patient is currently on 8 L high flow nasal cannula with pulse ox of 96%. She's been afebrile, heart rate 85, blood pressure 109/61. D-dimer 10.25. LDH 687. C-reactive protein 12.2. Patient is scheduled today with interventional radiology for thoracentesis right side. Patient to increase activity in her room. 12/07: Shins pulse ox is 97% on 2 L nasal cannula. She does drop down in the 70s if she is ambulating off oxygen. Home oxygen therapy will be arranged by caseworker protective services as patient requires home oxygen therapy to be 2 manage her Covid 19 diagnoses. Patient also will be set up with a nebulizer for home. PT has cleared her for discharge with no need for rehab. Patient had some difficulty ambulating with her nurse but she agrees that she does not need rehab. She states her boyfriend is with her around the clock. Patient has been afebrile, heart rate 96, blood pressure 109/65. Patient will be discharged home today once cleared by pulmonary medicine. ASSESSMENT AND PLAN 1. Acute hypoxic respiratory failure secondary to recent Covid 19 pneumonia diagnosed with,prior MSSA pneumonia, current right pneumothorax and pleural effusion 2. Right sided pleural effusion status post thoracentesis 3. Acute exacerbation of mild intermittent bronchial asthma. 4. Recurrent depression and generalized anxiety disorder. 5. Primary immunodeficiency, stable. . 6. Chronic anemia of chronic disease most likely due to history of bleeding ulcers and alcohol abuse and NSAID use. . 7. Tobacco use and dependence including vaping. 8. Daily alcohol use/abuse. 9. Debility. 10. Acute anemia secondary to sepsis without blood loss. 11. Migraine headaches. 12. Sepsis with MSSA bacteremia, resolved. 13. Moderate protein calorie malnutrition. 14. Gastroesophageal reflux disease with history of bleeding ulcers. 15. Tachycardia. 16. Thrush. 17. Insomnia. 18. Right abd pain likley sec to alcoholic binge and NSAIDs induced gastritis. DISCHARGE PLAN Home with [facility]. Impression and plan of care have been directed as dictated by the signing physician. Isabel Samayoa nurse practitioner acting as scribe for signing physician. Patient Condition at Discharge: Stable Plan - Discharge Summary Discharge Rx Participant: No New Discharge Prescriptions: New Dexamethasone [Decadron] 6 mg PO DAILY #5 tablet Ipratropium-Albuterol Nebulize [Duoneb 0.5 mg-3 mg/3 ml Soln] 3 ml INHALATION QID #120 neb Continue DULoxetine HCL [Cymbalta] 60 mg PO DAILY Cetirizine HCl [Zyrtec] 10 mg PO DAILY PRN PRN Reason: Allergy Symptoms buPROPion XL [Wellbutrin XL] 150 mg PO DAILY Sucralfate [Carafate] 1 gm PO ACHS #60 tab Acetaminophen Tab [Tylenol] 650 mg PO Q6HR PRN tab PRN Reason: Mild Pain Or Fever > 100.5 Fluticasone Nasal [place] [Flonase Nasal [place]] 1 - 2 spr EA NOSTRIL Q48H PRN PRN Reason: Congestion Albuterol Sulfate [Proair Hfa] 2 puff INHALATION RT-Q4H PRN PRN Reason: Shortness Of Breath Cyclobenzaprine [Flexeril] 5 - 10 mg PO TID PRN PRN Reason: Muscle Spasm Propranolol LA [Inderal LA] 60 mg PO DAILY Pantoprazole Sodium [Protonix] 40 mg PO DAILY Fluticasone/Salmeterol [Advair 250-50 Diskus] 1 puff INHALATION RT-BID Cholecalciferol [Vitamin D3 (25 Mcg = 1000 Iu)] 25 mcg PO DAILY busPIRone HCl [Buspar] 10 mg PO BID PRN PRN Reason: Anxiety Benzonatate [Tessalon Perles] 200 mg PO TID Triamcinolone 0.1% Cream [Kenalog 0.1% Cream] 1 applic TOPICAL BID ARIPiprazole [Abilify] 7.5 mg PO DAILY Amitriptyline HCl [Elavil] 10 mg PO HS #30 tab Melatonin 6 mg PO HS tablet Zinc Sulfate [Orazinc] 220 mg PO DAILY cap Topiramate [Topamax] 25 mg PO DAILY #30 tab Ascorbic Acid [Vitamin C] 1,000 mg PO DAILY tab oxyCODONE-APAP 5-325MG [Percocet 5-325 mg] 1 tab PO Q4HR PRN PRN Reason: Pain Ondansetron Odt [Zofran ODT] 4 mg PO Q8H PRN PRN Reason: Nausea Discharge Medication List Cetirizine HCl [Zyrtec] 10 mg PO DAILY PRN 02/26/20 [History] DULoxetine HCL [Cymbalta] 60 mg PO DAILY 02/26/20 [History] buPROPion XL [Wellbutrin XL] 150 mg PO DAILY 08/14/20 [History] Acetaminophen Tab [Tylenol] 650 mg PO Q6HR PRN tab 08/16/20 [Rx] Sucralfate [Carafate] 1 gm PO ACHS #60 tab 08/16/20 [Rx] ARIPiprazole [Abilify] 7.5 mg PO DAILY 11/04/20 [History] Albuterol Sulfate [Proair Hfa] 2 puff INHALATION RT-Q4H PRN 11/04/20 [History] Benzonatate [Tessalon Perles] 200 mg PO TID 11/04/20 [History] Cholecalciferol [Vitamin D3 (25 Mcg = 1000 Iu)] 25 mcg PO DAILY 11/04/20 [History] Cyclobenzaprine [Flexeril] 5 - 10 mg PO TID PRN 11/04/20 [History] Fluticasone Nasal [place] [Flonase Nasal [place]] 1 - 2 spr EA NOSTRIL Q48H PRN 11/04/20 [History] Fluticasone/Salmeterol [Advair 250-50 Diskus] 1 puff INHALATION RT-BID 11/04/20 [History] Pantoprazole Sodium [Protonix] 40 mg PO DAILY 11/04/20 [History] Propranolol LA [Inderal LA] 60 mg PO DAILY 11/04/20 [History] Triamcinolone 0.1% Cream [Kenalog 0.1% Cream] 1 applic TOPICAL BID 11/04/20 [History] busPIRone HCl [Buspar] 10 mg PO BID PRN 11/04/20 [History] Amitriptyline HCl [Elavil] 10 mg PO HS #30 tab 11/29/20 [Rx] Ascorbic Acid [Vitamin C] 1,000 mg PO DAILY tab 11/29/20 [Rx] Melatonin 6 mg PO HS tablet 11/29/20 [Rx] Topiramate [Topamax] 25 mg PO DAILY #30 tab 11/29/20 [Rx] Zinc Sulfate [Orazinc] 220 mg PO DAILY cap 11/29/20 [Rx] Ondansetron Odt [Zofran ODT] 4 mg PO Q8H PRN 12/03/20 [History] oxyCODONE-APAP 5-325MG [Percocet 5-325 mg] 1 tab PO Q4HR PRN 12/03/20 [History] Dexamethasone [Decadron] 6 mg PO DAILY #5 tablet 12/07/20 [Rx] Ipratropium-Albuterol Nebulize [Duoneb 0.5 mg-3 mg/3 ml Soln] 3 ml INHALATION QID #120 neb 12/07/20 [Rx] Follow up Appointment(s)/Referral(s): Stewart Cruz MD [STAFF PHYSICIAN] - 12/27/20 2:00 pm (SUNDAY ) Patricia Gonzalez MD [Primary Care Provider] - 1 Week [facility], [NON-STAFF] - Patient Instructions/Handouts: Coronavirus Disease 2019 (COVID-19) Discharge Disposition: HOME WITH HOME HEALTH SERVICES
[2020-12-07 13:51] VITALS: BP 97/55; PULSE 97; RESP 19; TEMP 98
--- NOTE | 2020-12-14 14:39 | CDI ---
Documentation Clarification Form Date: 12/14/2020 02:21:00 PM From: Karen Denson Phone: If you have a question about this query, please contact Lorna Denise Vocational Nursing Instructor at [phone] between 8am and 5pm Admit Date: 12/03/2020 02:12:00 PM Patient Name: Dimple Dexter Visit Number: [id number] Discharge Date: 12/07/2020 03:14:00 PM ATTENTION: The Clinical Documentation Specialists (CDI) and [facility] Coding Staff appreciate your assistance in clarifying documentation. Please respond to the clarification below the line at the bottom and electronically sign. The CDI & [facility] Coding staff will review the response and follow-up if needed. Please note: Queries are made part of the Legal Health Record. If you have any questions, please contact the author of this message via ITS. Dr. Heather Soto The patient presented with acute hypoxic respiratory failure secondary to recent Covid 19 pneumonia, October 30 tested positive. Per DCS number 12. sepsis MSSA bacteremia resolved. Number 10. DCS Acute anemia secondary to sepsis without blood loss. Please clarify if sepsis is current on this admission or was patient's sepsis resolved prior to this admit. History/Risk Factors: Covid diagnosed October 30, alcoholism, immune deficiency Clinical Indicators: WBC: 13.7 Lactic acid: 1.6 Blood cultures: negative Vitals signs: 98.3 F, 124 bpm, 26, 95/62, 94 Treatment: Dexamethasone daily, Patient had thoracentesis and was on high flow O2 and Bipap In your professional opinion, please clarify if patient has a history of sepsis or was sepsis present on this admission [ ] Sepsis POA [ ] Sepsis a history of [ ] Sepsis ruled out [ ] Septic Shock [ ] Other, please specify [ ] Unable to determine SIRS Criteria: 2 or more of the following may indicate SIRS -Temperature < 96.8F (36C) or > 101.0F (38.3C) -Heart Rate > 90 bpm -Respiratory Rate > 20 breaths/min or PaCO2 < 32 mmHg -White Blood Cell Count > 12,000 or < 4,000 cells/mm3 or > 10% bands sepsis ruled out MTDD
--- NOTE | 2020-12-16 12:04 | CDI ---
Documentation Clarification Form Date: 12/14/2020 02:53:00 PM From: Karen Denson Phone: If you have a question about this query, please contact Lorna Denise, Senior Information Security Analyst at [phone] between 8am and 5pm. Admit Date: 12/03/2020 02:12:00 PM Patient Name: Dimple Dexter Visit Number: [id number] Discharge Date: 12/07/2020 03:14:00 PM ATTENTION: The Clinical Documentation Specialists (CDI) and [facility] Coding Staff appreciate your assistance in clarifying documentation. Please respond to the clarification below the line at the bottom and electronically sign. The CDI & [facility] Coding staff will review the response and follow-up if needed. Please note: Queries are made part of the Legal Health Record. If you have any questions, please contact the author of this message via ITS. Dr. Heather Soto The COVID-19 test obtained on October 30, 2020 was positive. Per DCS patient has Acute hypoxic respiratory failure due to recent Covid 19 pneumonia. Please clarify if this is a history of Covid 19 and Covid pneumonia or is Covid 19 and Covid pneumonia a current infection on this admit. History/risk factors: Sepsis MSSA, covid pneumonia, Covid 19 and intubation last admission with chest tubes. Clinical Indicators: pleural effusion, pneumothorax, acute and chronic respiratory failure Treatment: Dexamethasone and Zinc. Patient had a thoracentesis and was on high flow O2 and Bipap Please clarify the COVID-19 status: [ x ] Current Covid 19 and Covid pneumonia [ ] Personal history of Covid 19 and Covid pneumonia [ ] Other, please specify MTDD
== END 2020-12-07 15:14 | disposition home health service (06) | DRG 177 ==
LOC: EC 11:43 → 3SCARD 14:12
PROVIDERS: ADMIT Family Medicine; ATTEND Family Medicine
PROC: 5A09357 Assistance with Respiratory Ventilation, Less than 24 Consecutive Hours, Continuous Positive Airway Pressure (ICD-10-PCS; principal; 2020-12-03)
PROC: 5A0945A Assistance with Respiratory Ventilation, 24-96 Consecutive Hours, High Flow/Velocity Cannula (ICD-10-PCS; 2020-12-04)
PROC: 0W993ZX Drainage of Right Pleural Cavity, Percutaneous Approach, Diagnostic (ICD-10-PCS; 2020-12-06)
DX: U07.1 COVID-19 (principal); J96.21 Acute and chronic respiratory failure with hypoxia; J12.82 Pneumonia due to coronavirus disease 2019; J15.211 Pneumonia due to Methicillin susceptible Staphylococcus aureus; J93.9 Pneumothorax, unspecified; J45.21 Mild intermittent asthma with (acute) exacerbation; J90 Pleural effusion, not elsewhere classified; B37.0 Candidal stomatitis; D84.9 Immunodeficiency, unspecified; E44.0 Moderate protein-calorie malnutrition; J44.0 Chronic obstructive pulmonary disease with (acute) lower respiratory infection; K82.1 Hydrops of gallbladder; K21.9 Gastro-esophageal reflux disease without esophagitis; Z87.11 Personal history of peptic ulcer disease; F17.290 Nicotine dependence, other tobacco product, uncomplicated; K29.20 Alcoholic gastritis without bleeding; F10.20 Alcohol dependence, uncomplicated; K58.9 Irritable bowel syndrome, unspecified; M79.7 Fibromyalgia; T39.395A Adverse effect of other nonsteroidal anti-inflammatory drugs [NSAID], initial encounter; D63.8 Anemia in other chronic diseases classified elsewhere; F31.9 Bipolar disorder, unspecified; F41.1 Generalized anxiety disorder; F43.10 Post-traumatic stress disorder, unspecified; F90.9 Attention-deficit hyperactivity disorder, unspecified type; G43.909 Migraine, unspecified, not intractable, without status migrainosus; G47.00 Insomnia, unspecified; G89.4 Chronic pain syndrome; Z79.899 Other long term (current) drug therapy; Z86.19 Personal history of other infectious and parasitic diseases; Z98.82 Breast implant status; T70.29XA Other effects of high altitude, initial encounter; J30.2 Other seasonal allergic rhinitis; Z88.5 Allergy status to narcotic agent; Z88.0 Allergy status to penicillin; Z88.8 Allergy status to other drugs, medicaments and biological substances; Z88.1 Allergy status to other antibiotic agents; Z91.040 Latex allergy status; Z81.3 Family history of other psychoactive substance abuse and dependence; Z83.2 Family history of diseases of the blood and blood-forming organs and certain disorders involving the immune mechanism; I27.20 Pulmonary hypertension, unspecified
CPT/HCPCS: 32555; 36415; 71045; 71275; 74018; 74176; 76705; 78227; 80053; 81003; 81025; 82150; 82728; 82784; 82945; 83605; 83615; 83690; 83735; 84145; 84157; 85025; 85379; 85610; 85730; 86140; 87040; 87070; 87102; 87116; 87205; 87206; 89050; 93005; 94640; 94760; 96361; 96374; 96375; 99284; 99285

== ENCOUNTER 2020-12-14 19:36 | Emergency (ER) | payer OTHER ==
[2020-12-14 19:57] VITALS: TEMP 98.7
[2020-12-14] MEDS ORDERED: SODIUM CHLORIDE 0.9% 1,000 ML IV STA (21:11)
[2020-12-14] MEDS ORDERED: HYDROmorphone 1 MG/ML 1 ML SYRINGE IVP STA ×2 (21:11→22:45)
[2020-12-14] MEDS ORDERED: KETOROLAC 15 MG/ML 1 ML VIAL IVP STA (21:11)
[2020-12-14] MEDS ORDERED: diphenhydrAMINE 50 MG/ML 1 ML VIAL IVP STA (21:11)
--- NOTE | 2020-12-14 21:18 | ED ---
General Adult HPI - General Chief complaint: Headache Stated complaint: Head pain Time Seen by Provider: 12/14/20 20:55 Source: patient Mode of arrival: wheelchair Limitations: no limitations - History of Present Illness Initial comments: Dictation was produced using Adreal dictation software. please excuse any grammatical, word or spelling errors. This patient was cared for during a federal and state declared state of emergency secondary to Covid 19 Chief Complaint: 39-year-old female presents to the emergency department for headache. History of Present Illness: This 39-year-old female she presents to emergency department for headache. Patient has history of migraines. She states that told cranial throbbing in nature. Patient states that she was recently admitted to the hospital for COVID-19 pneumonia. She had a complicated hospital course requiring ICU admission and endotracheal intubations. The same time she is had multiple chest tubes. She reports that she was admitted for several weeks. She reports that time she also had coded multiple times. Patient denies any numbness and waning paresthesias to the arms or legs. She states that discharged from the hospital she is kind of been having some achiness throughout her body. She does have supple more oxygen at home when she needs it. She reports that during her hospital stay she developed a large hair tangled that is pulling at her scalp. She describes it as a dreadlocks. She believes that this is causing her migraines. The ROS documented in this emergency department record has been reviewed and confirmed by me. Those systems with pertinent positive or negative responses have been documented in the HPI. All other systems are other negative and/or noncontributory. PHYSICAL EXAM: General Impression: Alert and oriented x3, not in acute distress HEENT: Normocephalic atraumatic, extra-ocular movements intact, pupils equal and reactive to light bilaterally, mucous membranes moist. Cardiovascular: Heart regular rate and rhythm Chest: Able to complete full sentences, no retractions, no tachypnea Abdomen: abdomen soft, non-tender, non-distended, no organomegaly Musculoskeletal: Pulses present and equal in all extremities, no peripheral ed ruslan Motor: no focal deficits noted Neurological: CN II-XII grossly intact, no focal motor or sensory deficits noted Skin: Intact with no visualized rashes Psych: Normal affect and mood ED course: 39-year-old feel presents to the emergency department for chief complaint of headache. As upon arrival shows heart rate of 118, blood pressure 8957. She is well-appearing at bedside. Chart review was performed showing that patient was admitted to the hospital for several weeks secondary to hypoxic respiratory failure and pneumonia. She denies any respiratory issues today. She states that she is only here for headache. Laboratory evaluation obtained. Leukocytosis 6 and 0.7. Hemoglobin 8.9. Patient's hemoglobin is around her baseline. Actually improved. Leukocytosis of 16 point second is likely secondary to steroids patient just had completed a course of steroids yesterday. Metabolic panel shows BUN of 31 and creatinine of 0.84. Psych affect some mild prerenal azotemia from dehydration. Patient feels improved after headache cocktail. Believe that most of her headache is from d ehydration also with tangled hair in the back of her head prolonged immobility from recent hospitalization. Cepheid study is negative. She is encouraged to follow-up with a salon to get the tangled hair dressed. - Related Data Home Medications Medication Instructions Recorded Confirmed Cetirizine HCl [Zyrtec] 10 mg PO DAILY PRN 02/26/20 12/14/20 DULoxetine HCL [Cymbalta] 60 mg PO DAILY 02/26/20 12/14/20 buPROPion XL [Wellbutrin XL] 150 mg PO DAILY 08/14/20 12/14/20 ARIPiprazole [Abilify] 7.5 mg PO DAILY 11/04/20 12/14/20 Albuterol Sulfate [Proair Hfa] 2 puff INHALATION RT-Q4H PRN 11/04/20 12/14/20 Benzonatate [Tessalon Perles] 200 mg PO TID PRN 11/04/20 12/14/20 Cholecalciferol [Vitamin D3 (25 25 mcg PO DAILY 11/04/20 12/14/20 Mcg = 1000 Iu)] Cyclobenzaprine [Flexeril] 5 - 10 mg PO TID PRN 11/04/20 12/14/20 Fluticasone Nasal [place] [Flonase 1 - 2 spr EA NOSTRIL Q48H PRN 11/04/20 12/14/20 Nasal [place]] Fluticasone/Salmeterol [Advair 1 puff INHALATION RT-BID 11/04/20 12/14/20 250-50 Diskus] Pantoprazole Sodium [Protonix] 40 mg PO DAILY 11/04/20 12/14/20 Propranolol LA [Inderal LA] 60 mg PO DAILY 11/04/20 12/14/20 Triamcinolone 0.1% Cream [Kenalog 1 applic TOPICAL BID 11/04/20 12/14/20 0.1% Cream] busPIRone HCl [Buspar] 10 mg PO BID PRN 11/04/20 12/14/20 Ondansetron Odt [Zofran ODT] 4 mg PO Q8H PRN 12/03/20 12/14/20 oxyCODONE-APAP 5-325MG [Percocet 1 tab PO Q4HR PRN 12/03/20 12/14/20 5-325 mg] Fluconazole [Diflucan] 100 mg PO DAILY 12/14/20 12/14/20 Ipratropium-Albuterol Nebulize 3 ml INHALATION RT-QID PRN 12/14/20 12/14/20 [Duoneb 0.5 mg-3 mg/3 ml Soln] Rizatriptan Benzoate [Rizatriptan] 10 mg PO DAILY PRN 12/14/20 12/14/20 Previous Rx's Medication Instructions Recorded Acetaminophen Tab [Tylenol] 650 mg PO Q6HR PRN tab 08/16/20 Sucralfate [Carafate] 1 gm PO ACHS #60 tab 08/16/20 Amitriptyline HCl [Elavil] 10 mg PO HS #30 tab 11/29/20 Ascorbic Acid [Vitamin C] 1,000 mg PO DAILY tab 11/29/20 Melatonin 6 mg PO HS tablet 11/29/20 Topiramate [Topamax] 25 mg PO DAILY #30 tab 11/29/20 Zinc Sulfate [Orazinc] 220 mg PO DAILY cap 11/29/20 Amoxicillin/Potassium Clav 1 tab PO Q12HR 14 Days #24 tab 12/07/20 [Augmentin 875-125 Tablet] Allergies Allergy/AdvReac Type Severity Reaction Status Date / Time adhesive Allergy Rash/Hives Verified 12/14/20 22:41 latex Allergy Rash/Hives Verified 12/14/20 22:41 prochlorperazine Allergy Unknown Verified 12/14/20 22:41 [From Compazine] ciprofloxacin [From Cipro] AdvReac Hallucinati Verified 12/14/20 22:41 ons citalopram [From Celexa] AdvReac Suicidal Verified 12/14/20 22:41 thoughts diazepam [From Valium] AdvReac Hallucinati Verified 12/14/20 22:41 ons/Anxiety fluoxetine [From Prozac] AdvReac Suicidal Verified 12/14/20 22:41 thoughts metoclopramide [From Reglan] AdvReac Hallucinati Verified 12/14/20 22:41 ons/Anxiety paroxetine [From Paxil] AdvReac Suicidal Verified 12/14/20 22:41 thoughts Penicillins AdvReac Nausea & Verified 12/14/20 22:41 Vomiting Review of Systems ROS Statement: Those systems with pertinent positive or pertinent negative responses have been documented in the HPI. ROS Other: All systems not noted in ROS Statement are negative. Past Medical History Past Medical History: Asthma, Fibromyalgia, GERD/Reflux, GI Bleed Additional Past Medical History / Comment(s): covid + pneumonia 10/30/2020 complicated by respiratory failure, intubation, mechanical ventilation, bilateral pneumothoraces, COPD, Other hx: Primary immunodeficiency, antral ulcers, GI bleed, anemia, IBS, migraines, back pain, TMJ, seasonal allergies History of Any Multi-Drug Resistant Organisms: None Reported Past Surgical History: Breast Surgery, Ear Surgery, Uterine Ablation Additional Past Surgical History / Comment(s): EGDs, colonoscopies, bilateral breast augmentation, septoplasty, L ear trauma/reattached. Past Anesthesia/Blood Transfusion Reactions: No Reported Reaction, Motion Sickness Additional Past Anesthesia/Blood Transfusion Reaction / Comment(s): Pt has received blood in past without reaction. Past Psychological History: ADD/ADHD, Anxiety, Bipolar, Depression, PTSD Smoking Status: Former smoker, Vaper Past Alcohol Use History: Abuse Past Drug Use History: None Reported - Past Family History Father Additional Family Medical History / Comment(s): Father at age 51 from accidental drug overdose. Mother Family Medical History: Fibromyalgia Additional Family Medical History / Comment(s): Mother is alive at age 61 with history of primary immunodeficiency. Brother(s) Additional Family Medical History / Comment(s): Patient has one brother with history of alcohol abuse. Patient does not have any sisters. Patient has 2 children with no major medical problems. General Exam Limitations: no limitations Course Vital Signs 12/14/20 12/14/20 19:49 22:10 Temperature 98.7 F Pulse Rate 118 H 93 Respiratory 18 16 Rate Blood Pressure 89/57 108/59 O2 Sat by Pulse 97 98 Oximetry Medical Decision Making - Lab Data Result diagrams: 12/14/20 21:26 12/14/20 21:26 Lab Results 12/14/20 12/14/20 12/14/20 Range/Units 21:26 21:26 21:33 WBC 16.5 H (3.8-10.6) k/uL RBC 3.43 L (3.80-5.40) m/uL Hgb 8.9 L (11.4-16.0) gm/dL Hct 30.7 L (34.0-46.0) % MCV 89.5 (80.0-100.0) fL MCH 25.9 (25.0-35.0) pg MCHC 29.0 L (31.0-37.0) g/dL RDW 17.8 H (11.5-15.5) % Plt Count 724 H (150-450) k/uL MPV 7.1 Neutrophils % (Manual) 60 % Band Neuts % (Manual) 2 % Lymphocytes % (Manual) 29 % Monocytes % (Manual) 5 % Eosinophils % (Manual) 1 % Metamyelocytes % 5 % Neutrophils # (Manual) 10.20 H (1.3-7.7) k/uL Lymphocytes # (Manual) 4.79 (1.0-4.8) k/uL Monocytes # (Manual) 0.83 (0-1.0) k/uL Eosinophils # (Manual) 0.17 (0-0.7) k/uL Metamyelocytes # (Man) 0.83 H (0) k/uL Nucleated RBCs 1 H (0-0) /100 WBC Polychromasia Present Hypochromasia Marked Poikilocytosis Slight Anisocytosis Slight Sodium 137 (137-145) mmol/L Potassium 5.1 (3.5-5.1) mmol/L Chloride 101 (98-107) mmol/L Carbon Dioxide 26 (22-30) mmol/L Anion Gap 10 mmol/L BUN 31 H (7-17) mg/dL Creatinine 0.84 (0.52-1.04) mg/dL Est GFR (CKD-EPI)AfAm >90 (>60 ml/min/1.73 sqM) Est GFR (CKD-EPI)NonAf 87 (>60 ml/min/1.73 sqM) Glucose 83 (74-99) mg/dL Calcium 9.8 (8.4-10.2) mg/dL Influenza Type A (PCR) Not Detected (Not Detectd) Influenza Type B (PCR) Not Detected (Not Detectd) RSV (PCR) Not Detected (Not Detectd) SARS-CoV-2 (PCR) Not Detected (Not Detectd) Disposition Clinical Impression: Headache Disposition: HOME SELF-CARE Condition: Good Instructions (If sedation given, give patient instructions): Acute Headache (ED), Dehydration (ED) Is patient prescribed a controlled substance at d/c from ED?: No Referrals: Patricia Gonzalez MD [Primary Care Provider] - 1-2 days Time of Disposition: 22:53
[2020-12-14 22:00] LABS: Anisocytosis Slight; HCT 30.7 % (34.0-46.0); HGB 8.9 gm/dL (11.4-16.0); Hypochromasia Marked; MCH 25.9 pg (25.0-35.0); MCV 89.5 fL (80.0-100.0); Mean Platelet Volume 7.1; Platelet Count 724 k/uL (150-450); Poikilocytosis Slight; RBC 3.43 m/uL (3.80-5.40); RDW 17.8 % (11.5-15.5)
[2020-12-14 22:03] LABS: African American GFR (CKD) >90 (>60 ml/min/1.73 sqM); Anion Gap 10 mmol/L; Blood Urea Nitrogen 31 mg/dL (7-17); Calcium 9.8 mg/dL (8.4-10.2); Carbon Dioxide 26 mmol/L (22-30); Chloride 101 mmol/L (98-107); Glucose 83 mg/dL (74-99); Non-African American GFR(CKD) 87 (>60 ml/min/1.73 sqM); Potassium 5.1 mmol/L (3.5-5.1); Sodium 137 mmol/L (137-145)
[2020-12-14] MEDS ORDERED: ONDANSETRON 4 MG/2 ML VIAL IVP STA (22:05)
[2020-12-14 22:11] VITALS: BP 108/59; PULSE 93; RESP 16
[2020-12-14 22:48] LABS: Band Neutrophils % 2 %; Eosinophils # (M) 0.17 k/uL (0-0.7); Lymphocytes # (M) 4.79 k/uL (1.0-4.8); Metamyelocytes # (M) 0.83 k/uL (0); Metamyelocytes % 5 %; Monocytes # (M) 0.83 k/uL (0-1.0); Neutrophils % (M) 60 %; Nucleated Red Blood Cells 1 /100 WBC (0-0); Polychromasia Present; Total Cells Counted 200; WBC 16.5 k/uL (3.8-10.6)
== END 2020-12-14 23:18 | disposition home or self-care (01) ==
LOC: EC 19:36
DX: G43.909 Migraine, unspecified, not intractable, without status migrainosus (principal); J45.909 Unspecified asthma, uncomplicated; M79.7 Fibromyalgia; K21.9 Gastro-esophageal reflux disease without esophagitis; Z87.891 Personal history of nicotine dependence; Z86.16 Personal history of COVID-19; F32.9 Major depressive disorder, single episode, unspecified; F41.9 Anxiety disorder, unspecified
CPT/HCPCS: 36415; 80048; 85025; 87636; 99284; 96374; 96375 ×3; 96376; 96361 ×2; J1200; J2405; J1170; J1885

== ENCOUNTER 2021-02-25 | Emergency (ER) | payer OTHER | END 2021-02-26 01:17 | disposition home or self-care (01) ==

== ENCOUNTER 2021-04-06 01:21 | Inpatient (IN) | payer OTHER ==
[2021-04-06] MEDS ORDERED: MORPHINE SULFATE 4 MG/ML SYRINGE IV STA (04:01)
[2021-04-06] MEDS ORDERED: PANTOPRAZOLE 40 MG/10 ML VIAL IVP STA (04:01)
[2021-04-06 04:31] LABS: Anisocytosis Slight; Basophils # (A) 0.1 k/uL (0-0.2); Basophils % (A) 1 %; Eosinophils # (A) 0.3 k/uL (0-0.7); Eosinophils % (A) 4 %; HCT 28.1 % (34.0-46.0); HGB 8.4 gm/dL (11.4-16.0); Hypochromasia Marked; Lymphocytes # (A) 3.3 k/uL (1.0-4.8); Lymphocytes % (A) 35 %; MCH 25.4 pg (25.0-35.0); MCV 84.5 fL (80.0-100.0); Mean Platelet Volume 7.4; Monocytes # (A) 0.5 k/uL (0-1.0); Monocytes % (A) 5 %; Neutrophils # (A) 4.9 k/uL (1.3-7.7); Neutrophils % (A) 53 %; Platelet Count 610 k/uL (150-450); Poikilocytosis Slight; RBC 3.32 m/uL (3.80-5.40); RDW 16.2 % (11.5-15.5); WBC 9.4 k/uL (3.8-10.6)
[2021-04-06 04:42] LABS: ALT 15 U/L (4-34); AST 22 U/L (14-36); African American GFR (CKD) >90 (>60 ml/min/1.73 sqM); Albumin 4.7 g/dL (3.5-5.0); Alkaline Phosphatase 82 U/L (38-126); Anion Gap 11 mmol/L; Blood Urea Nitrogen 24 mg/dL (7-17); Calcium 9.9 mg/dL (8.4-10.2); Carbon Dioxide 18 mmol/L (22-30); Chloride 109 mmol/L (98-107); Glucose 97 mg/dL (74-99); Non-African American GFR(CKD) 80 (>60 ml/min/1.73 sqM); Sodium 138 mmol/L (137-145); Total Bilirubin 0.2 mg/dL (0.2-1.3); Total Protein 7.6 g/dL (6.3-8.2)
[2021-04-06 04:48] LABS: Prothrombin Time 10.3 sec (9.0-12.0)
--- NOTE | 2021-04-06 05:00 | ED ---
GI Bleed HPI - General Chief complaint: GI Bleed Stated complaint: Rectal Bleeding Time Seen by Provider: 04/06/21 03:48 Source: patient Mode of arrival: ambulatory Limitations: no limitations - History of Present Illness MD complaint: blood on toilet paper, blood streaked stool Onset/Timin -: days(s) Quality: cramping Consistency: intermittent Improves with: none Worsens with: none - Related Data Home Medications Medication Instructions Recorded Confirmed Cetirizine HCl [Zyrtec] 10 mg PO DAILY PRN 02/26/20 12/14/20 DULoxetine HCL [Cymbalta] 60 mg PO DAILY 02/26/20 12/14/20 buPROPion XL [Wellbutrin XL] 150 mg PO DAILY 08/14/20 12/14/20 ARIPiprazole [Abilify] 7.5 mg PO DAILY 11/04/20 12/14/20 Albuterol Sulfate [Proair Hfa] 2 puff INHALATION RT-Q4H PRN 11/04/20 12/14/20 Benzonatate [Tessalon Perles] 200 mg PO TID PRN 11/04/20 12/14/20 Cholecalciferol [Vitamin D3 (25 25 mcg PO DAILY 11/04/20 12/14/20 Mcg = 1000 Iu)] Cyclobenzaprine [Flexeril] 5 - 10 mg PO TID PRN 11/04/20 12/14/20 Fluticasone Nasal Cunningham [Flonase 1 - 2 spr EA NOSTRIL Q48H PRN 11/04/20 12/14/20 Nasal Cunningham] Fluticasone/Salmeterol [Advair 1 puff INHALATION RT-BID 11/04/20 12/14/20 250-50 Diskus] Pantoprazole Sodium [Protonix] 40 mg PO DAILY 11/04/20 12/14/20 Propranolol LA [Inderal LA] 60 mg PO DAILY 11/04/20 12/14/20 Triamcinolone 0.1% Cream [Kenalog 1 applic TOPICAL BID 11/04/20 12/14/20 0.1% Cream] busPIRone HCl [Buspar] 10 mg PO BID PRN 11/04/20 12/14/20 Ondansetron Odt [Zofran ODT] 4 mg PO Q8H PRN 12/03/20 12/14/20 oxyCODONE-APAP 5-325MG [Percocet 1 tab PO Q4HR PRN 12/03/20 12/14/20 5-325 mg] Fluconazole [Diflucan] 100 mg PO DAILY 12/14/20 12/14/20 Ipratropium-Albuterol Nebulize 3 ml INHALATION RT-QID PRN 12/14/20 12/14/20 [Duoneb 0.5 mg-3 mg/3 ml Soln] Rizatriptan Benzoate [Rizatriptan] 10 mg PO DAILY PRN 12/14/20 12/14/20 Previous Rx's Medication Instructions Recorded Acetaminophen Tab [Tylenol] 650 mg PO Q6HR PRN tab 08/16/20 Sucralfate [Carafate] 1 gm PO ACHS #60 tab 08/16/20 Amitriptyline HCl [Elavil] 10 mg PO HS #30 tab 11/29/20 Ascorbic Acid [Vitamin C] 1,000 mg PO DAILY tab 11/29/20 Melatonin 6 mg PO HS tablet 11/29/20 Topiramate [Topamax] 25 mg PO DAILY #30 tab 11/29/20 Zinc Sulfate [Orazinc] 220 mg PO DAILY cap 11/29/20 Amoxicillin/Potassium Clav 1 tab PO Q12HR 14 Days #24 tab 12/07/20 [Augmentin 875-125 Tablet] Allergies Allergy/AdvReac Type Severity Reaction Status Date / Time adhesive Allergy Rash/Hives Verified 04/06/21 01:30 latex Allergy Rash/Hives Verified 04/06/21 01:30 prochlorperazine Allergy Unknown Verified 04/06/21 01:30 [From Compazine] ciprofloxacin [From Cipro] AdvReac Hallucinati Verified 04/06/21 01:30 ons citalopram [From Celexa] AdvReac Suicidal Verified 04/06/21 01:30 thoughts diazepam [From Valium] AdvReac Hallucinati Verified 04/06/21 01:30 ons/Anxiety fluoxetine [From Prozac] AdvReac Suicidal Verified 04/06/21 01:30 thoughts metoclopramide [From Reglan] AdvReac Hallucinati Verified 04/06/21 01:30 ons/Anxiety paroxetine [From Paxil] AdvReac Suicidal Verified 04/06/21 01:30 thoughts Penicillins AdvReac Nausea & Verified 04/06/21 01:30 Vomiting Review of Systems ROS Statement: Those systems with pertinent positive or pertinent negative responses have been documented in the HPI. ROS Other: All systems not noted in ROS Statement are negative. Constitutional: Denies: fever, chills, weakness Respiratory: Denies: cough, dyspnea Cardiovascular: Denies: chest pain, palpitations, edema, syncope Gastrointestinal: Reports: diarrhea, hematochezia. Denies: abdominal pain, nausea, vomiting, constipation, hematemesis Genitourinary: Denies: dysuria, hematuria Musculoskeletal: Denies: back pain Skin: Denies: rash Neurological: Denies: headache, weakness Hematological/Lymphatic: Denies: easy bleeding Past Medical History Past Medical History: Asthma, Fibromyalgia, GERD/Reflux, GI Bleed Additional Past Medical History / Comment(s): covid + pneumonia 10/30/2020 complicated by respiratory failure, intubation, mechanical ventilation, bilateral pneumothoraces, COPD, Other hx: Primary immunodeficiency, antral ulcers, GI bleed, anemia, IBS, migraines, back pain, TMJ, seasonal allergies History of Any Multi-Drug Resistant Organisms: None Reported Past Surgical History: Breast Surgery, Ear Surgery, Uterine Ablation Additional Past Surgical History / Comment(s): EGDs, colonoscopies, bilateral breast augmentation, septoplasty, L ear trauma/reattached. Past Anesthesia/Blood Transfusion Reactions: No Reported Reaction, Motion S ickness Additional Past Anesthesia/Blood Transfusion Reaction / Comment(s): Pt has received blood in past without reaction. Past Psychological History: ADD/ADHD, Anxiety, Bipolar, Depression, PTSD Smoking Status: Former smoker, Vaper Past Alcohol Use History: Abuse Past Drug Use History: None Reported - Past Family History Father Additional Family Medical History / Comment(s): Father at age 51 from accidental drug overdose. Mother Family Medical History: Fibromyalgia Additional Family Medical History / Comment(s): Mother is alive at age 61 with history of primary immunodeficiency. Brother(s) Additional Family Medical History / Comment(s): Patient has one brother with history of alcohol abuse. Patient does not have any sisters. Patient has 2 children with no major medical problems. General Exam Limitations: no limitations General appearance: alert, in no apparent distress Head exam: Present: atraumatic, normocephalic Eye exam: Present: normal appearance. Absent: scleral icterus, conjunctival inj ection ENT exam: Present: normal oropharynx Neck exam: Present: normal inspection Respiratory exam: Present: normal lung sounds bilaterally. Absent: respiratory distress, wheezes, rales, rhonchi, stridor Cardiovascular Exam: Present: regular rate, normal rhythm, normal heart sounds. Absent: systolic murmur, diastolic murmur, rubs, gallop GI/Abdominal exam: Present: soft. Absent: distended, tenderness, guarding, rebound, rigid, mass Extremities exam: Present: normal inspection, normal capillary refill. Absent: pedal edema, calf tenderness Back exam: Present: normal inspection. Absent: CVA tenderness (R), CVA tende rness (L) Neurological exam: Present: alert Skin exam: Present: warm, dry, intact, normal color. Absent: rash Course Vital Signs 04/06/21 01:24 Temperature 98.9 F Pulse Rate 93 Respiratory 20 Rate Blood Pressure 103/65 O2 Sat by Pulse 99 Oximetry Medical Decision Making - Lab Data Result diagrams: 04/06/21 04:16 04/06/21 04:16 Lab Results 04/06/21 04/06/21 04/06/21 Range/Units 04:16 04:16 04:16 WBC 9.4 (3.8-10.6) k/uL RBC 3.32 L (3.80-5.40) m/uL Hgb 8.4 L (11.4-16.0) gm/dL Hct 28.1 L (34.0-46.0) % MCV 84.5 (80.0-100.0) fL MCH 25.4 (25.0-35.0) pg MCHC 30.0 L (31.0-37.0) g/dL RDW 16.2 H (11.5-15.5) % Plt Count 610 H (150-450) k/uL MPV 7.4 Neutrophils % 53 % Lymphocytes % 35 % Monocytes % 5 % Eosinophils % 4 % Basophils % 1 % Neutrophils # 4.9 (1.3-7.7) k/uL Lymphocytes # 3.3 (1.0-4.8) k/uL Monocytes # 0.5 (0-1.0) k/uL Eosinophils # 0.3 (0-0.7) k/uL Basophils # 0.1 (0-0.2) k/uL Hypochromasia Marked Poikilocytosis Slight Anisocytosis Slight PT 10.3 (9.0-12.0) sec INR 1.0 (<1.2) APTT 20.0 L (22.0-30.0) sec Sodium (137-145) mmol/L Potassium (3.5-5.1) mmol/L Chloride (98-107) mmol/L Carbon Dioxide (22-30) mmol/L Anion Gap mmol/L BUN (7-17) mg/dL Creatinine (0.52-1.04) mg/dL Est GFR (CKD-EPI)AfAm (>60 ml/min/1.73 sqM) Est GFR (CKD-EPI)NonAf (>60 ml/min/1.73 sqM) Glucose (74-99) mg/dL Plasma Lactic Acid Domo (0.7-2.0) mmol/L Calcium (8.4-10.2) mg/dL Total Bilirubin (0.2-1.3) mg/dL AST (14-36) U/L ALT (4-34) U/L Alkaline Phosphatase (38-126) U/L Troponin I (0.000-0.034) ng/mL Total Protein (6.3-8.2) g/dL Albumin (3.5-5.0) g/dL Stool Occult Blood Positive H (Negative) Blood Type Blood Type Recheck Bld Type Recheck Status Antibody Screen Spec Expiration Date 04/06/21 04/06/21 04/06/21 Range/Units 04:16 04:16 04:16 WBC (3.8-10.6) k/uL RBC (3.80-5.40) m/uL Hgb (11.4-16.0) gm/dL Hct (34.0-46.0) % MCV (80.0-100.0) fL MCH (25.0-35.0) pg MCHC (31.0-37.0) g/dL RDW (11.5-15.5) % Plt Count (150-450) k/uL MPV Neutrophils % % Lymphocytes % % Monocytes % % Eosinophils % % Basophils % % Neutrophils # (1.3-7.7) k/uL Lymphocytes # (1.0-4.8) k/uL Monocytes # (0-1.0) k/uL Eosinophils # (0-0.7) k/uL Basophils # (0-0.2) k/uL Hypochromasia Poikilocytosis Anisocytosis PT (9.0-12.0) sec INR (<1.2) APTT (22.0-30.0) sec Sodium 138 (137-145) mmol/L Potassium 4.0 (3.5-5.1) mmol/L Chloride 109 H (98-107) mmol/L Carbon Dioxide 18 L (22-30) mmol/L Anion Gap 11 mmol/L BUN 24 H (7-17) mg/dL Creatinine 0.89 (0.52-1.04) mg/dL Est GFR (CKD-EPI)AfAm >90 (>60 ml/min/1.73 sqM) Est GFR (CKD-EPI)NonAf 80 (>60 ml/min/1.73 sqM) Glucose 97 (74-99) mg/dL Plasma Lactic Acid Domo 0.6 L (0.7-2.0) mmol/L Calcium 9.9 (8.4-10.2) mg/dL Total Bilirubin 0.2 (0.2-1.3) mg/dL AST 22 (14-36) U/L ALT 15 (4-34) U/L Alkaline Phosphatase 82 (38-126) U/L Troponin I <0.012 (0.000-0.034) ng/mL Total Protein 7.6 (6.3-8.2) g/dL Albumin 4.7 (3.5-5.0) g/dL Stool Occult Blood (Negative) Blood Type Blood Type Recheck Bld Type Recheck Status Antibody Screen Spec Expiration Date 04/06/21 Range/Units 04:16 WBC (3.8-10.6) k/uL RBC (3.80-5.40) m/uL Hgb (11.4-16.0) gm/dL Hct (34.0-46.0) % MCV (80.0-100.0) fL MCH (25.0-35.0) pg MCHC (31.0-37.0) g/dL RDW (11.5-15.5) % Plt Count (150-450) k/uL MPV Neutrophils % % Lymphocytes % % Monocytes % % Eosinophils % % Basophils % % Neutrophils # (1.3-7.7) k/uL Lymphocytes # (1.0-4.8) k/uL Monocytes # (0-1.0) k/uL Eosinophils # (0-0.7) k/uL Basophils # (0-0.2) k/uL Hypochromasia Poikilocytosis Anisocytosis PT (9.0-12.0) sec INR (<1.2) APTT (22.0-30.0) sec Sodium (137-145) mmol/L Potassium (3.5-5.1) mmol/L Chloride (98-107) mmol/L Carbon Dioxide (22-30) mmol/L Anion Gap mmol/L BUN (7-17) mg/dL Creatinine (0.52-1.04) mg/dL Est GFR (CKD-EPI)AfAm (>60 ml/min/1.73 sqM) Est GFR (CKD-EPI)NonAf (>60 ml/min/1.73 sqM) Glucose (74-99) mg/dL Plasma Lactic Acid Domo (0.7-2.0) mmol/L Calcium (8.4-10.2) mg/dL Total Bilirubin (0.2-1.3) mg/dL AST (14-36) U/L ALT (4-34) U/L Alkaline Phosphatase (38-126) U/L Troponin I (0.000-0.034) ng/mL Total Protein (6.3-8.2) g/dL Albumin (3.5-5.0) g/dL Stool Occult Blood (Negative) Blood Type O Positive Blood Type Recheck O Pos Bld Type Recheck Status No Antibody Screen NEGATIVE Spec Expiration Date 04/09/20212315 Disposition Clinical Impression: Anemia, GI bleed Disposition: ADMITTED IP TO THIS [facility] Condition: Fair Instructions (If sedation given, give patient instructions): Gastrointestinal Bleeding (ED) Referrals: Patricia Gonzalez MD [Primary Care Provider] - 1-2 days
[2021-04-06] MEDS ORDERED: NALOXONE 0.4 MG/ML 1 ML VIAL IV PRN (07:01)
[2021-04-06] MEDS ORDERED: ACETAMINOPHEN TAB 325 MG TAB PO PRN (07:01)
[2021-04-06] MEDS: SODIUM CHLORIDE 0.9% 1,000 ML IV SCH ×2 (08:15→23:42)
[2021-04-06] MEDS: MORPHINE SULFATE 4 MG/ML SYRINGE IV PRN ×3 (08:25→17:07)
[2021-04-06] MEDS: PANTOPRAZOLE 40 MG/10 ML VIAL IV SCH (11:21)
[2021-04-06] MEDS: metroNIDAZOLE-NS PMX 500 MG in SALINE 1 100ML.BAG IVPB SCH (11:21)
--- NOTE | 2021-04-06 12:33 | P.CONS ---
History of Present Illness - Reason for Consult Consult date: 04/06/21 GI bleed Requesting physician: Patricia Gonzalez - Chief Complaint diarrhea, blood in stool - History of Present Illness This a 40-year-old white female who presented to the emergency department with complaints of diarrhea with bright red blood in stool. She has a past medical history of chronic anemia, asthma, fibromyalgia, GERD, GI bleed with findings of antral ulcer, IBS, migraines, and COVID-19 pneumonia treated in October 2020 complicated by respiratory failure and intubation. States she's had multiple episodes of diarrhea for the last 1-2 days duration mixed with bright red blood. States she's had some nausea, no vomiting, no significant abdominal pain. She states she had a temperature of 100.4 at home. She denies any recent antibiotic use, sick contacts, or recent travel. She's been afebrile since coming to the emergency department. She has a history of antral ulcers. She underwent an EGD on 08/16/2020 showing 2 nonbleeding antral ulcers without high risk stigmata for bleeding and a small hiatal hernia. She was instructed at that time to follow-up with gastroenterology for repeat EGD in 6-8 weeks to see if ulcer was healing and patient did not have any follow-up. Admitting labs show WBC 9, hemoglobin 8.4, hematocrit 28, platelet count 610,000, INR 1, total bilirubin 0.2, alkaline phosphatase 82, AST 22, ALT 15, patient had a positive occult stool. Review of Systems REVIEW OF SYSTEMS: CARDIOPULMONARY: No chest pain or shortness of breath. Gastrointestinal: No abdominal pain.. Nausea with no vomiting. No hematemesis, coffee-ground emesis. Multiple episodes of diarrhea, with blood in stool. GENITOURINARY: No dysuria or hematuria. MUSCULOSKELETAL: Reports normal range of motion., Joint pain. SKIN: No rashes. No jaundice. ENDOCRINE: Fever at home No excessive weight gain or loss. No polydipsia or polyuria. PSYCHIATRIC: Unremarkable. NEUROLOGY: No change in mental status. Denies dizziness, headache. ENT: Vision unremarkable. CONSTITUTIONAL: No recent weight loss. Reported fever and chills at home. Past Medical History Past Medical History: Asthma, Fibromyalgia, GERD/Reflux, GI Bleed Additional Past Medical History / Comment(s): covid + pneumonia 10/30/2020 complicated by respiratory failure, intubation, mechanical ventilation, bilateral pneumothoraces, COPD, Other hx: Primary immunodeficiency, antral ulcers, GI bleed, anemia, IBS, migraines, back pain, TMJ, seasonal allergies History of Any Multi-Drug Resistant Organisms: None Reported Past Surgical History: Breast Surgery, Ear Surgery, Uterine Ablation Additional Past Surgical History / Comment(s): EGDs, colonoscopies, bilateral breast augmentation, septoplasty, L ear trauma/reattached. Past Anesthesia/Blood Transfusion Reactions: No Reported Reaction, Motion Sickness Additional Past Anesthesia/Blood Transfusion Reaction / Comm: Pt has received blood in past without reaction. Past Psychological History: ADD/ADHD, Anxiety, Bipolar, Depression, PTSD Smoking Status: Former smoker, Vaper Past Alcohol Use History: Abuse Past Drug Use History: None Reported - Past Family History Father Additional Family Medical History / Comment(s): Father at age 51 from accidental drug overdose. Mother Family Medical History: Fibromyalgia Additional Family Medical History / Comment(s): Mother is alive at age 61 with history of primary immunodeficiency. Brother(s) Additional Family Medical History / Comment(s): Patient has one brother with history of alcohol abuse. Patient does not have any sisters. Patient has 2 children with no major medical problems. Medications and Allergies Home Medications Medication Instructions Recorded Confirmed Type Cetirizine HCl [Zyrtec] 10 mg PO DAILY PRN 02/26/20 04/06/21 History DULoxetine HCL [Cymbalta] 60 mg PO DAILY 02/26/20 04/06/21 History buPROPion XL [Wellbutrin XL] 150 mg PO DAILY 08/14/20 04/06/21 History Sucralfate [Carafate] 1 gm PO ACHS #60 tab 08/16/20 04/06/21 Rx ARIPiprazole [Abilify] 7.5 mg PO DAILY 11/04/20 04/06/21 History Albuterol Sulfate [Proair Hfa] 2 puff INHALATION RT-Q4H PRN 11/04/20 04/06/21 History Cyclobenzaprine [Flexeril] 5 mg PO TID PRN 11/04/20 04/06/21 History Pantoprazole Sodium [Protonix] 40 mg PO DAILY 11/04/20 04/06/21 History busPIRone HCl [Buspar] 10 mg PO BID PRN 11/04/20 04/06/21 History Amitriptyline HCl [Elavil] 10 mg PO HS #30 tab 11/29/20 04/06/21 Rx Ondansetron Odt [Zofran ODT] 4 mg PO Q8H PRN 12/03/20 04/06/21 History Rizatriptan Benzoate [Rizatriptan] 10 mg PO DAILY PRN 12/14/20 04/06/21 History [id number]-[id number]-[id number] [id number] 1 tab PO QID PRN 04/06/21 04/06/21 History [Excedrin] Fluticasone/Salmeterol [Advair 1 puff INHALATION RT-BID 04/06/21 04/06/21 History 250-50 Diskus] Lung Cleanse 2 cap PO DAILY PRN 04/06/21 04/06/21 History Propranolol HCl [Propranolol HCl 60 mg PO DAILY 04/06/21 04/06/21 History ER] Sodium Chloride [Corry] 1 spray EA NOSTRIL QID PRN 04/06/21 04/06/21 History Topiramate [Topiramate ER] 50 mg PO DAILY 04/06/21 04/06/21 History diphenhydrAMINE HCL [Benadryl] 25 mg PO Q4H PRN 04/06/21 04/06/21 History Allergies Allergy/AdvReac Type Severity Reaction Status Date / Time adhesive Allergy Rash/Hives Verified 04/06/21 08:11 latex Allergy Rash/Hives Verified 04/06/21 08:11 prochlorperazine Allergy Unknown Verified 04/06/21 08:11 [From Compazine] ciprofloxacin [From Cipro] AdvReac Hallucinati Verified 04/06/21 08:11 ons citalopram [From Celexa] AdvReac Suicidal Verified 04/06/21 08:11 thoughts diazepam [From Valium] AdvReac Hallucinati Verified 04/06/21 08:11 ons/Anxiety fluoxetine [From Prozac] AdvReac Suicidal Verified 04/06/21 08:11 thoughts metoclopramide [From Reglan] AdvReac Hallucinati Verified 04/06/21 08:11 ons/Anxiety paroxetine [From Paxil] AdvReac Suicidal Verified 04/06/21 08:11 thoughts Penicillins AdvReac Nausea & Verified 04/06/21 08:11 Vomiting Physical Exam Vitals: Vital Signs Temp Pulse Resp BP Pulse Ox 04/06/21 07:44 83 18 96/65 98 04/06/21 01:24 98.9 F 93 20 103/65 99 Intake and Output 04/05/21 04/06/21 04/06/21 22:59 06:59 14:59 Other: Weight 63.503 kg General appearance: The patient is alert, oriented, appears in no acute distress. HET: Head is normocephalic and atraumatic. Conjunctiva pink. Sclera anicteric. Neck: Supple without lymphadenopathy. Trachea midline. Heart: S1 S2. Regular rate and rhythm. Lungs: Clear to auscultation. Abdomen: Soft, nontender, nondistended with bowel sounds. No guarding or rigidity. Skin: No rashes. No jaundice. Extremities: Normal skin color and turgor. No pedal edema. Neurological: No focal deficits. Alert and oriented 3.. Results CBC & Chem 7: 04/06/21 04:16 04/06/21 04:16 Labs: Abnormal Lab Results - Last 24 Hours (Table) 04/06/21 04/06/21 04/06/21 Range/Units 04:16 04:16 04:16 RBC 3.32 L (3.80-5.40) m/uL Hgb 8.4 L (11.4-16.0) gm/dL Hct 28.1 L (34.0-46.0) % MCHC 30.0 L (31.0-37.0) g/dL RDW 16.2 H (11.5-15.5) % Plt Count 610 H (150-450) k/uL APTT 20.0 L (22.0-30.0) sec Chloride (98-107) mmol/L Carbon Dioxide (22-30) mmol/L BUN (7-17) mg/dL Plasma Lactic Acid Domo (0.7-2.0) mmol/L Stool Occult Blood Positive H (Negative) 04/06/21 04/06/21 Range/Units 04:16 04:16 RBC (3.80-5.40) m/uL Hgb (11.4-16.0) gm/dL Hct (34.0-46.0) % MCHC (31.0-37.0) g/dL RDW (11.5-15.5) % Plt Count (150-450) k/uL APTT (22.0-30.0) sec Chloride 109 H (98-107) mmol/L Carbon Dioxide 18 L (22-30) mmol/L BUN 24 H (7-17) mg/dL Plasma Lactic Acid Domo 0.6 L (0.7-2.0) mmol/L Stool Occult Blood (Negative) Assessment and Plan (1) GI bleed Narrative/Plan: 40-year-old female who presented to the emergency department with complaints of multiple episodes of diarrhea followed by some blood noted in her stool. The patient has multiple medical comorbidities including chronic anemia. She's been seen in the past for an upper GI bleed and found to have 2 nonbleeding antral ulcers without high risk to monitor for bleeding on EGD on 08/16/2020. The patient was supposed to follow-up with gastroenterology for possible repeat EGD in 6-8 weeks however she did not. Patient denies any previous history of lower GI bleed. States she had a low-grade temp at home of 100.4. She's had some nausea but no vomiting. Denies any abdominal pain. On admission hemoglobin is 8.4 is her baseline. Will order iron studies, stool studies, and patient will be started on and Flagyl empirically for possible infectious etiology. Current Visit: Yes Status: Acute Code(s): K92.2 - GASTROINTESTINAL HEMORRHAGE, UNSPECIFIED SNOMED Code(s): 45012784 (2) Chronic anemia Current Visit: Yes Status: Acute Code(s): D64.9 - ANEMIA, UNSPECIFIED SNOMED Code(s): 268209306 (3) Diarrhea Current Visit: Yes Status: Acute Code(s): R19.7 - DIARRHEA, UNSPECIFIED SNOMED Code(s): 24501748 (4) Fecal occult blood test positive Current Visit: Yes Status: Acute Code(s): R19.5 - OTHER FECAL ABNORMALITIES SNOMED Code(s): 69243926 Plan: 1. Stool studies ordered 2. Patient may have clear liquid diet 3. Protonix 40 mg twice a day 4. Flagyl 500 mg every 8 hours 5. No plans on endoscopic evaluation at this time, likely infectious etiology 6. Obtain iron studies, consider possible hematology consult Thank you for this consultation, we will continue to follow. Dr. Tennille Kinney I agree with the dictator's note, documented as a scribe by Annamaria Walters.
[2021-04-06] MEDS: ONDANSETRON 4 MG/2 ML VIAL IVP PRN (12:57)
[2021-04-06 13:09] LABS: Anisocytosis Slight; HCT 22.7 % (34.0-46.0); Hypochromasia Marked; MCHC 30.6 g/dL (31.0-37.0); MCV 84.7 fL (80.0-100.0); Mean Platelet Volume 6.8; Platelet Count 503 k/uL (150-450); Poikilocytosis Slight; RBC 2.68 m/uL (3.80-5.40); RDW 16.6 % (11.5-15.5); WBC 4.9 k/uL (3.8-10.6)
[2021-04-06 14:39] LABS: Eosinophils # (M) 0.34 k/uL (0-0.7); Lymphocytes # (M) 2.16 k/uL (1.0-4.8); Monocytes # (M) 0.49 k/uL (0-1.0); Neutrophils # (M) 1.91 k/uL (1.3-7.7); Neutrophils % (M) 39 %; Nucleated Red Blood Cells 0 /100 WBC (0-0); Total Cells Counted 100
[2021-04-06] MEDS ORDERED: CYCLOBENZAPRINE 5 MG TAB PO PRN (15:23)
[2021-04-06 20:32] LABS: Anisocytosis Slight; HCT 24.4 % (34.0-46.0); Hypochromasia Marked; MCH 25.8 pg (25.0-35.0); MCHC 27.7 g/dL (31.0-37.0); Mean Platelet Volume 7.8; Poikilocytosis Slight; RBC 2.62 m/uL (3.80-5.40); RDW 16.1 % (11.5-15.5)
[2021-04-06 20:36] LABS: HGB 6.8 gm/dL (11.4-16.0)
[2021-04-06 20:37] LABS: MCV 93.2 fL (80.0-100.0); Platelet Count 126 k/uL (150-450)
[2021-04-06] MEDS ORDERED: ALBUTEROL NEBULIZED 2.5 MG/3 ML INHALATION PRN (21:08)
--- NOTE | 2021-04-06 21:16 | P.HPIM ---
History of Present Illness H&P Date: 04/06/21 This is a 39-year-old female patient of my clinic patient with past medical history of GI bleed in 2008, July 2020 was admitted for GI bleed secondary to 2 nonbleeding antral ulcers requiring transfusion 2 units packed RBCs, tobacco use, alcohol abuse, recurrent depression, generalized anxiety disorder. Patient was diagnosed with COVID-19 on October 30 2020,. She had lengthy admission, for which she required hospitalization until November 29 2020. She had complications from COVID-19 include ventilation intubation for respiratory failure, after she failed BiPAP treatments, she received Tocilizumab infusion, Covid pneumonia severe pulmonary interstitial and airspace edema, she required chest tube placements bilaterally, she had 3 spontaneous pneumothoraces, negative for pulmonary emboli, she did not require pressors, at that time, right chest tube was placed on November 06, it November 08, and November 25 2020, left chest tube, November 07 that she was seen by Dr. Conn during the last admission, and Dr. Tapia cardiothoracic her chest tube was removed on November 27 2020. The patient went home on room air, no oxygen requirements needed home therapies provided She has chronic anemia of chronic disease, history of bleeding ulcers no alcohol abuse, primary immune deficiency state, recurrent depression general since IT disorder, mild intermittent bronchial asthma, and migraines tobacco use, sepsis with MSSA bacteremia with MSSA pneumonia, moderate protein calorie malnutrition, GERD, She presents to emergency room, secondary to bright red blood living per rectum, with blood clots, that started yesterday, hopeless 17, for which she has frequent bowel movements, all with blood clots, and liquid brown stool. She had previous colonoscopies in the past, seen by Dr. Burris for this, also with EGD. Patient has epigastric pain, denies any recent alcohol use, denies any NSAID use, as she does have history of GI bleed in the past which she is maintained on Protonix daily. Last EGD, July 2020, done by Dr. Kinney which probably is negative, has active gastritis, with mucosal reactive changes, duodenal biopsy, reactive hyperplastic changes, current hemoglobin on admission 818, 8.4, from a previous hemoglobin of 8.0 in November 2015, Hemoccult stools were positive, INR of 1.0, potassium 4.0, normal creatinine and normal liver function tests C. diff test negative, consult with Dr. Burris Review of Systems Constitutional: Reports as per HPI, Denies anorexia, Denies chills, Denies chronic headaches, Denies chronic pain, Denies daytime sleepiness, Denies fatigue, Denies fever, Denies lethargy, Denies malaise, Denies night sweats, Denies poor appetite, Denies sweats, Denies weakness, Denies weight gain, Denies weight loss Ears, nose, mouth and throat: Reports as per HPI, Denies ant. neck pain, Denies bleeding gums, Denies dental pain, Denies dysphagia, Denies epistaxis, Denies headache, Denies hoarseness, Denies mouth pain, Denies nasal congestion, Denies nasal discharge, Denies neck fullness/pressure, Denies neck lump, Denies nose pain, Denies odynophagia, Denies post-nasal drip, Denies sinus pain, Denies si nus pressure, Denies swelling in mouth, Denies swelling in throat, Denies sore throat, Denies vertigo, Denies voice changes Cardiovascular: Reports as per HPI, Denies chest pain, Denies irregular heart beat, Denies paroxysmal nocturnal dyspnea Respiratory: Reports as per HPI, Denies congestion, Denies cough, Denies dyspnea, Denies pain on inspiration, Denies wheezing Gastrointestinal: Reports as per HPI, Reports abdominal pain (Epigastric), Reports BRBPR, Denies excessive gas, Denies heartburn, Denies hematemesis, Denie s nausea, Denies vomiting Genitourinary: Reports as per HPI, Denies hematuria Menstruation: Reports as per HPI Musculoskeletal: Reports as per HPI, Denies arm numbness/tingling, Denies atrophy, Denies fractures, Denies frequent falls, Denies gait dysfunction, Denies hot joints, Denies leg numbness/tingling, Denies limitation of motion, Denies loss of height, Denies low back pain, Denies morning stiffness, Denies muscle cramps, Denies muscle weakness, Denies myalgias, Denies neck pain, Denies neck stiffness, Denies prior amputations, Denies redness of joints, Denies shooting arm pain, Denies shooting leg pain Integumentary: Reports as per HPI Neurological: Reports as per HPI Psychiatric: Reports as per HPI Endocrine: Reports as per HPI, Reports increase in ring/shoe/hat size Hematologic/Lymphatic: Denies easy bleeding Allergic/Immunologic: Reports as per HPI, Denies allergic rhinitis, Denies anaphylaxis, Denies angioedema, Denies gluten intolerance, Denies persistent infections, Denies seasonal allergies, Denies urticaria, Denies wheezing Past Medical History Past Medical History: Asthma, Fibromyalgia, GERD/Reflux, GI Bleed Additional Past Medical History / Comment(s): covid + pneumonia 10/30/2020 complicated by respiratory failure, intubation, mechanical ventilation, bilateral pneumothoraces, COPD, Other hx: Primary immunodeficiency, antral ulcers, GI bleed, anemia, IBS, migraines, back pain, TMJ, seasonal allergies History of Any Multi-Drug Resistant Organisms: None Reported Past Surgical History: Breast Surgery, Ear Surgery, Uterine Ablation Additional Past Surgical History / Comment(s): EGDs, colonoscopies, bilateral breast augmentation, septoplasty, L ear trauma/reattached. Past Anesthesia/Blood Transfusion Reactions: No Reported Reaction, Motion Sickness Additional Past Anesthesia/Blood Transfusion Reaction / Comment(s): Pt has received blood in past without reaction. Past Psychological History: ADD/ADHD, Anxiety, Bipolar, Depression, PTSD Smoking Status: Former smoker, Vaper Past Alcohol Use History: Abuse Past Drug Use History: None Reported - Past Family History Father Additional Family Medical History / Comment(s): Father at age 51 from accidental drug overdose. Mother Family Medical History: Fibromyalgia Additional Family Medical History / Comment(s): Mother is alive at age 61 with history of primary immunodeficiency. Brother(s) Additional Family Medical History / Comment(s): Patient has one brother with history of alcohol abuse. Patient does not have any sisters. Patient has 2 c hildren with no major medical problems. Medications and Allergies Home Medications Medication Instructions Recorded Confirmed Type Cetirizine HCl [Zyrtec] 10 mg PO DAILY PRN 02/26/20 04/06/21 History DULoxetine HCL [Cymbalta] 60 mg PO DAILY 02/26/20 04/06/21 History buPROPion XL [Wellbutrin XL] 150 mg PO DAILY 08/14/20 04/06/21 History Sucralfate [Carafate] 1 gm PO ACHS #60 tab 08/16/20 04/06/21 Rx ARIPiprazole [Abilify] 7.5 mg PO DAILY 11/04/20 04/06/21 History Albuterol Sulfate [Proair Hfa] 2 puff INHALATION RT-Q4H PRN 11/04/20 04/06/21 History Cyclobenzaprine [Flexeril] 5 mg PO TID PRN 11/04/20 04/06/21 History Pantoprazole Sodium [Protonix] 40 mg PO DAILY 11/04/20 04/06/21 History busPIRone HCl [Buspar] 10 mg PO BID PRN 11/04/20 04/06/21 History Amitriptyline HCl [Elavil] 10 mg PO HS #30 tab 11/29/20 04/06/21 Rx Ondansetron Odt [Zofran ODT] 4 mg PO Q8H PRN 12/03/20 04/06/21 History Rizatriptan Benzoate [Rizatriptan] 10 mg PO DAILY PRN 12/14/20 04/06/21 History Ufwvviq-Hvih-Mlag [id number] 1 tab PO QID PRN 04/06/21 04/06/21 History [Excedrin] Fluticasone/Salmeterol [Advair 1 puff INHALATION RT-BID 04/06/21 04/06/21 History 250-50 Diskus] Lung Cleanse 2 cap PO DAILY PRN 04/06/21 04/06/21 History Propranolol HCl [Propranolol HCl 60 mg PO DAILY 04/06/21 04/06/21 History ER] Sodium Chloride [Olmito] 1 spray EA NOSTRIL QID PRN 04/06/21 04/06/21 History Topiramate [Topiramate ER] 50 mg PO DAILY 04/06/21 04/06/21 History diphenhydrAMINE HCL [Benadryl] 25 mg PO Q4H PRN 04/06/21 04/06/21 History Allergies Allergy/AdvReac Type Severity Reaction Status Date / Time adhesive Allergy Rash/Hives Verified 04/06/21 08:11 latex Allergy Rash/Hives Verified 04/06/21 08:11 prochlorperazine Allergy Unknown Verified 04/06/21 08:11 [From Compazine] ciprofloxacin [From Cipro] AdvReac Hallucinati Verified 04/06/21 08:11 ons citalopram [From Celexa] AdvReac Suicidal Verified 04/06/21 08:11 thoughts diazepam [From Valium] AdvReac Hallucinati Verified 04/06/21 08:11 ons/Anxiety fluoxetine [From Prozac] AdvReac Suicidal Verified 04/06/21 08:11 thoughts metoclopramide [From Reglan] AdvReac Hallucinati Verified 04/06/21 08:11 ons/Anxiety paroxetine [From Paxil] AdvReac Suicidal Verified 04/06/21 08:11 thoughts Penicillins AdvReac Nausea & Verified 04/06/21 08:11 Vomiting Physical Exam Vitals: Vital Signs Temp Pulse Resp BP Pulse Ox 04/06/21 10:00 18 04/06/21 09:00 18 04/06/21 08:00 18 04/06/21 07:44 83 18 96/65 98 04/06/21 01:24 98.9 F 93 20 103/65 99 Intake and Output 04/05/21 04/06/21 04/06/21 22:59 06:59 14:59 Other: Weight 63.503 kg - Constitutional General appearance: cooperative, thin - EENT Eyes: edentulous, PERRLA, normal appearance ENT: NA/AT, normal oropharynx - Neck Neck: normal ROM - Respiratory Respiratory: bilateral: CTA, negative: diminished, dullness, rales - Cardiovascular Rhythm: regular Heart sounds: normal: S1, S2 Abnormal Heart Sounds: no systolic murmur, no diastolic murmur, no rub, no S3 Gallop, no S4 Gallop, no click, no other - Gastrointestinal General gastrointestinal: normal bowel sounds, soft - Integumentary Integumentary: decreased turgor, normal - Neurologic Neurologic: CNII-XII intact - Musculoskeletal Musculoskeletal: gait normal, right sided weakness Results CBC & Chem 7: 04/06/21 20:08 04/06/21 04:16 Labs: Abnormal Lab Results - Last 24 Hours (Table) 04/06/21 04/06/21 04/06/21 Range/Units 04:16 04:16 04:16 RBC 3.32 L (3.80-5.40) m/uL Hgb 8.4 L (11.4-16.0) gm/dL Hct 28.1 L (34.0-46.0) % MCHC 30.0 L (31.0-37.0) g/dL RDW 16.2 H (11.5-15.5) % Plt Count 610 H (150-450) k/uL APTT 20.0 L (22.0-30.0) sec Chloride (98-107) mmol/L Carbon Dioxide (22-30) mmol/L BUN (7-17) mg/dL Plasma Lactic Acid Domo (0.7-2.0) mmol/L Stool Occult Blood Positive H (Negative) 04/06/21 04/06/21 Range/Units 04:16 04:16 RBC (3.80-5.40) m/uL Hgb (11.4-16.0) gm/dL Hct (34.0-46.0) % MCHC (31.0-37.0) g/dL RDW (11.5-15.5) % Plt Count (150-450) k/uL APTT (22.0-30.0) sec Chloride 109 H (98-107) mmol/L Carbon Dioxide 18 L (22-30) mmol/L BUN 24 H (7-17) mg/dL Plasma Lactic Acid Domo 0.6 L (0.7-2.0) mmol/L Stool Occult Blood (Negative) Thrombosis Risk Factor Assmnt - DVT/VTE Prophylaxis DVT/VTE Prophylaxis: Low risk, early ambulation encouraged, Contraindicated - See note Assessment and Plan Plan: 1. Suspect Lower GI bleed, with acute blood loss prior history of upper GI bleed in the past, EGD July 2021, and remarkable, seen by Dr. Burris for which we'll going to consult this time. Patient agrees to blood transfusion for hemoglobin under 7, patient will be made nothing by mouth postmidnight, clear liquid diet till seen by GI, must discontinue Excedrin, as it contains aspirin. No prior history of colonoscopy or capsule endoscopy PPI, 40 mg every 12 hours, 2 personal history of Covid, Covid 19 pneumonia diagnosed with,prior MSSA pneumonia, complicated by right pneumothorax,Right sided pneumothorax requiring chest tube 11/06, 11/08, 11/25 last Imitrex was discontinued on November 27 no current symptomatology 3. History of mild intermittent bronchial asthma. Continue Ventolin inhaler 4 times daily as needed. 4. Recurrent depression and generalized anxiety disorder: She is on multiple medication between BuSpar, Abilify, Wellbutrin and Cymbalta 5. Primary immunodeficiency, stable. Check for immunoglobulin IgG A and M 6. Chronic anemia of chronic disease most likely due to history of bleeding ulcers and alcohol abuse. 7. Tobacco use and dependence including vaping. 8. History of Daily alcohol use/abuse. Stable. 9. Migraine headaches. Continue Inderal 60 mg daily. No Fioricet secondary to insomnia, continue on Topamax, Elavil discontinue Excedrin 10. Acute anemia s s with blood loss. transfusion of 1 unit of packed RBCs for hemoglobin under 7. 11. Gastroesophageal reflux disease with history of bleeding ulcers. Continue Protonix 40 mg twice daily and Carafate 1 g 4 times daily.
[2021-04-06] MEDS ORDERED: busPIRone HCl 10 MG TAB PO PRN (21:30)
[2021-04-06] MEDS ORDERED: LORATADINE 10 MG TAB PO PRN (21:30)
[2021-04-06] MEDS: AMITRIPTYLINE HCL 10 MG TAB PO SCH (22:01)
[2021-04-06] MEDS: TOPIRAMATE 25 MG TAB PO SCH (22:02)
[2021-04-06 22:09] LABS: % Iron Saturation 6.85 (12.00-45.00)
[2021-04-07] MEDS: metroNIDAZOLE-NS PMX 500 MG in SALINE 1 100ML.BAG IVPB SCH ×4 (04:11→20:25)
[2021-04-07] MEDS: SODIUM CHLORIDE 0.9% 1,000 ML IV SCH ×3 (04:29→19:14)
[2021-04-07] MEDS: SUMAtriptan succinate 50 MG TAB PO PRN (04:40)
[2021-04-07] MEDS: ONDANSETRON 4 MG/2 ML VIAL IVP PRN ×3 (05:53→21:51)
[2021-04-07] MEDS: MORPHINE SULFATE 4 MG/ML SYRINGE IV PRN (05:55)
[2021-04-07] MEDS: ADVAIR INHALATION SCH ×2 (06:57→19:46)
[2021-04-07 08:05] LABS: Anisocytosis Slight; Basophils % (A) 1 %; Eosinophils # (A) 0.2 k/uL (0-0.7); Eosinophils % (A) 4 %; HCT 25.8 % (34.0-46.0); HGB 8.1 gm/dL (11.4-16.0); Hypochromasia Marked; Lymphocytes # (A) 1.3 k/uL (1.0-4.8); Lymphocytes % (A) 26 %; MCH 26.8 pg (25.0-35.0); MCHC 31.3 g/dL (31.0-37.0); Mean Platelet Volume 6.9; Monocytes # (A) 0.4 k/uL (0-1.0); Monocytes % (A) 7 %; Neutrophils % (A) 60 %; Poikilocytosis Moderate; RBC 3.01 m/uL (3.80-5.40); RDW 16.7 % (11.5-15.5)
[2021-04-07 08:11] LABS: MCV 85.6 fL (80.0-100.0); Platelet Count 414 k/uL (150-450)
[2021-04-07] MEDS ORDERED: HYDROmorphone 1 MG/ML 1 ML SYRINGE IM PRN (09:27)
[2021-04-07] MEDS: KETOROLAC 15 MG/ML 1 ML VIAL IVP PRN ×3 (09:35→21:56)
[2021-04-07] MEDS: SUCRALFATE 1 GM TAB PO SCH ×4 (09:49→21:51)
--- NOTE | 2021-04-07 11:33 | P.PN ---
Subjective Progress Note Date: 04/07/21 H&P Date: 04/06/21 This is a 39-year-old female patient of my clinic patient with past medical history of GI bleed in 2008, July 2020 was admitted for GI bleed secondary to 2 nonbleeding antral ulcers requiring transfusion 2 units packed RBCs, tobacco use, alcohol abuse, recurrent depression, generalized anxiety disorder. Patient was diagnosed with COVID-19 on October 30 2020,. She had lengthy admission, for which she required hospitalization until November 29 2020. She had complications from COVID-19 include ventilation intubation for respiratory failure, after she failed BiPAP treatments, she received Tocilizumab infusion, Covid pneumonia severe pulmonary interstitial and airspace edema, she required chest tube placements bilaterally, she had 3 spontaneous pneumothoraces, negative for pulmonary emboli, she did not require pressors, at that time, right chest tube was placed on November 06, it November 08, and November 25 2020, left chest tube, November 07 that she was seen by Dr. Conn during the last admission, and Dr. Tapia cardiothoracic her chest tube was removed on November 27 2020. The patient went home on room air, no oxygen requirements needed home therapies provided She has chronic anemia of chronic disease, history of bleeding ulcers no alcohol abuse, primary immune deficiency state, recurrent depression general since IT disorder, mild intermittent bronchial asthma, and migraines tobacco use, sepsis with MSSA bacteremia with MSSA pneumonia, moderate protein calorie malnutrition, GERD, She presents to emergency room, secondary to bright red blood living per rectum, with blood clots, that started yesterday, hopeless 17, for which she has frequent bowel movements, all with blood clots, and liquid brown stool. She had previous colonoscopies in the past, seen by Dr. Burris for this, also with EGD. Patient has epigastric pain, denies any recent alcohol use, denies any NSAID use, as she does have history of GI bleed in the past which she is maintained on Protonix daily. Last EGD, July 2020, done by Dr. Kinney which probably is negative, has active gastritis, with mucosal reactive changes, duodenal biopsy, reactive hyperplastic changes, current hemoglobin on admission 818, 8.4, from a previous hemoglobin of 8.0 in November 2015, Hemoccult stools were positive, INR of 1.0, potassium 4.0, normal creatinine and normal liver function tests C. diff test negative, consult with Dr. Burris 04/07 patient is complaining of significant headache, sinuses mainly, TMJ problems, has no nausea, however the abdominal pain has improved, patient did not sleep well last night, has cyclobenzaprine which she takes when necessary, we'll going to schedule these, 10 mg echodense been at at bedtime, Imitrex when necessary subcu, Topamax is on board, patient has no more diarrhea, she required one unit of packed red blood cells overnight, Ironinfusion began today for extremely low iron saturation at 6%, 2 days for iron infusion to be given. Diarrhea has resolved since last night. Review of Systems Constitutional: Reports as per HPI, Denies anorexia, Denies chills, Denies chronic headaches, Denies chronic pain, Denies daytime sleepiness, Denies fatigue, Denies fever, Denies lethargy, Denies malaise, Denies night sweats, Denies poor appetite, Denies sweats, Denies weakness, Denies weight gain, Denies weight loss Ears, nose, mouth and throat: Reports as per HPI, Denies ant. neck pain, Denies bleeding gums, Denies dental pain, Denies dysphagia, Denies epistaxis, Denies headache, Denies hoarseness, Denies mouth pain, Denies nasal congestion, Denies nasal discharge, Denies neck fullness/pressure, Denies neck lump, Denies nose pain, Denies odynophagia, Denies post-nasal drip, Denies sinus pain, Denies sinus pressure, Denies swelling in mouth, Denies swelling in throat, Denies sore throat, Denies vertigo, Denies voice changes Cardiovascular: Reports as per HPI, Denies chest pain, Denies irregular heart beat, Denies paroxysmal nocturnal dyspnea Respiratory: Reports as per HPI, Denies congestion, Denies cough, Denies dyspnea, Denies pain on inspiration, Denies wheezing Gastrointestinal: Reports as per HPI, Reports abdominal pain (Epigastric), Reports BRBPR, Denies excessive gas, Denies heartburn, Denies hematemesis, Denies nausea, Denies vomiting Genitourinary: Reports as per HPI, Denies hematuria Menstruation: Reports as per HPI Musculoskeletal: Reports as per HPI, Denies arm numbness/tingling, Denies atrophy, Denies fractures, Denies frequent falls, Denies gait dysfunction, Denies hot joints, Denies leg numbness/tingling, Denies limitation of motion, Denies loss of height, Denies low back pain, Denies morning stiffness, Denies muscle cramps, Denies muscle weakness, Denies myalgias, Denies neck pain, Denies neck stiffness, Denies prior amputations, Denies redness of joints, Denies shooting arm pain, Denies shooting leg pain Integumentary: Reports as per HPI Neurological: Reports as per HPI Psychiatric: Reports as per HPI Endocrine: Reports as per HPI, Reports increase in ring/shoe/hat size Hematologic/Lymphatic: Denies easy bleeding Allergic/Immunologic: Reports as per HPI, Denies allergic rhinitis, Denies anaphylaxis, Denies angioedema, Denies gluten intolerance, Denies persistent infections, Denies seasonal allergies, Denies urticaria, Denies wheezing Objective - Vital Signs Vital signs: Vital Signs Temp 97.8 F 04/07/21 05:00 Pulse 84 04/07/21 05:00 Resp 16 04/07/21 05:00 BP 89/45 04/07/21 05:00 Pulse Ox 100 04/07/21 05:00 Intake & Output 04/06/21 04/07/21 04/07/21 18:59 06:59 18:59 Intake Total 1610 Balance 1610 Weight 63.503 kg Intake: Intake, IV Titration 1300 Amount Sodium Chloride 0.9% 1, 1200 000 ml @ 100 mls/hr IV . Q10H SHERRON Rx#:[id number] metroNIDAZOLE-NS PMX 500 100 mg In Saline 1 100ml.bag @ 100 mls/hr IVPB Q8H SHERRON Rx#:[id number] Blood Product 310 Rc As-1 Unit 310 [id number] Other: Voiding Method Toilet # Voids 3 - Constitutional General appearance: Present: cooperative, no acute distress - EENT Eyes: Present: EOMI, PERRLA - Neck Neck: Present: normal ROM - Respiratory Respiratory: bilateral: CTA, negative: diminished, dullness - Cardiovascular Rhythm: regular Heart sounds: normal: S1, S2 Abnormal Heart Sounds: Absent: systolic murmur, diastolic murmur, rub, S3 Gallop, S4 Gallop, click, other - Gastrointestinal General gastrointestinal: Present: soft - Neurologic Neurologic: Present: CNII-XII intact - Musculoskeletal Musculoskeletal: Present: gait normal, strength equal bilaterally - Psychiatric Psychiatric: Present: A&O x's 3, appropriate affect, intact judgment & insight - Labs CBC & Chem 7: 04/07/21 07:22 04/06/21 04:16 Labs: Abnormal Lab Results - Last 24 Hours (Table) 04/06/21 04/06/21 04/06/21 Range/Units 04:16 12:06 12:06 WBC (3.8-10.6) k/uL RBC 2.68 L (3.80-5.40) m/uL Hgb 7.0 L (11.4-16.0) gm/dL Hct 22.7 L (34.0-46.0) % MCHC 30.6 L (31.0-37.0) g/dL RDW 16.6 H (11.5-15.5) % Plt Count 503 H (150-450) k/uL Iron 27 L (50-170) ug/dL % Saturation 6.85 L (12.00-45.00) Stool Lactoferrin (NEGATIVE) Crossmatch See Detail 04/06/21 04/06/21 04/07/21 Range/Units 12:11 20:08 07:22 WBC 3.0 L (3.8-10.6) k/uL RBC 2.62 L 3.01 L (3.80-5.40) m/uL Hgb 6.8 L* 8.1 L (11.4-16.0) gm/dL Hct 24.4 L 25.8 L (34.0-46.0) % MCHC 27.7 L (31.0-37.0) g/dL RDW 16.1 H 16.7 H (11.5-15.5) % Plt Count 126 L D (150-450) k/uL Iron (50-170) ug/dL % Saturation (12.00-45.00) Stool Lactoferrin POSITIVE A (NEGATIVE) Crossmatch Microbiology - Last 24 Hours (Table) 04/06/21 12:11 Stool Culture - Preliminary Stool Assessment and Plan Plan: 1. Suspect Lower GI bleed, with acute blood loss prior history of upper GI bleed in the past, EGD July 2021, and remarkable, seen by Dr. Burris for which we'll going to consult this time. Patient agrees to blood transfusion for he moglobin under 7, patient will be made nothing by mouth postmidnight, clear liquid diet till seen by GI, must discontinue Excedrin, as it contains aspirin. No prior history of colonoscopy or capsule endoscopy PPI, 40 mg every 12 hours, 2 personal history of Covid, Covid 19 pneumonia diagnosed with,prior MSSA pneumonia, complicated by right pneumothorax,Right sided pneumothorax requiring chest tube 11/06, 11/08, 11/25 last Imitrex was discontinued on November 27 no current symptomatology 3. History of mild intermittent bronchial asthma. Continue Ventolin inhaler 4 times daily as needed. 4. Recurrent depression and generalized anxiety disorder: She is on multiple medication between BuSpar, Abilify, Wellbutrin and Cymbalta 5. Primary immunodeficiency, stable. Check for immunoglobulin IgG A and M 6. Chronic anemia of chronic disease most likely due to history of bleeding ulcers and alcohol abuse. 7. Tobacco use and dependence including vaping. 8. History of Daily alcohol use/abuse. Stable. 9. Migraine headaches. Continue Inderal 60 mg daily. No Fioricet secondary to insomnia, continue on Topamax, Elavil discontinue Excedrin Imitrex added when necessary, check CT sinuses, as the headaches aren't controlled, might need antibiotic for sinusitis coverage, on ketorolac they would not be helpful as the patient has acute gastroenteritis at this time 10. Acute anemia s s with blood loss. transfusion of 1 unit of packed RBCs for hemoglobin under 7. 11. Gastroesophageal reflux disease with history of bleeding ulcers. Continue Protonix 40 mg twice daily and Carafate 1 g 4 times daily.
[2021-04-07] MEDS: HYDROmorphone 1 MG/ML 1 ML SYRINGE IVP PRN ×2 (13:31→19:33)
--- NOTE | 2021-04-07 13:37 | CT ---
EXAMINATION TYPE: CT sinus w con DATE OF EXAM: 04/07/2021 COMPARISON: None HISTORY: headache, facial pain CT DLP: 654.8 mGycm Contrast-enhanced CT of the paranasal sinuses was performed in the axial and coronal planes. Bone an d soft tissue settings are submitted.100 ml Iso 300 The paranasal sinuses demonstrate normal aeration and development. The paranasal sinuses are free of mucosal thickening or air fluid level. The osteal meatal units are patent bilaterally. The nasal septum is midline. No bony destructive changes are seen within the field of view. No enhancing lesion is identified. IMPRESSION: Unremarkable CT of the paranasal sinuses.
[2021-04-07] MEDS: SODIUM FERRIC GLUCONAT-SUCROSE 125 MG in SODIUM CHLORIDE 0.9% 100 ML IVPB SCH (14:50)
[2021-04-07] MEDS: CYCLOBENZAPRINE 10 MG TAB PO SCH (15:10)
[2021-04-07] MEDS: TOPIRAMATE 25 MG TAB PO SCH ×2 (15:10→21:51)
[2021-04-07] MEDS: DULoxetine HCL 60 MG CAPSULE.DR PO SCH (15:11)
[2021-04-07] MEDS: ARIPiprazole 5 MG TAB PO SCH (15:11)
[2021-04-07] MEDS: PANTOPRAZOLE 40 MG/10 ML VIAL IV SCH (15:11)
[2021-04-07] MEDS: PROPRANOLOL LA 60 MG CAP.SA.24H PO SCH ×3 (15:11→21:48)
[2021-04-07] MEDS: buPROPion XL 150 MG TAB.ER.24H PO SCH (15:11)
--- NOTE | 2021-04-07 16:42 | P.PN ---
Subjective Progress Note Date: 04/07/21 Principal diagnosis: Diarrhea with blood in stool Patient is a 40-year-old female who presented to the emergency department with complaints of multiple episodes of loose diarrhea that had right red blood in it. Patient denied any abdominal pain associated or nausea and vomiting. Patient does have a history in 2008 of anemia and GI bleed, with findings of peptic ulcer. Today she seen and examined states that she only had one episode of diarrhea yesterday and one today with small amount of blood. However she did have a drop in her hemoglobin yesterday to 6.8 and is status post 1 unit of PRBC transfusion. Today's repeat hemoglobin is 8.1. Today's complaint is migraine headache causing associated nausea and vomiting. She denies any coffee-ground emesis or bright red blood in her emesis. She is denying any abdominal pain. Stool cultures are pending, C. difficile toxin is negative, positive lactoferrin. Objective - Vital Signs Vital signs: Vital Signs Temp 97.8 F 04/07/21 05:00 Pulse 84 04/07/21 05:00 Resp 16 04/07/21 05:00 BP 89/45 04/07/21 05:00 Pulse Ox 100 04/07/21 05:00 Intake & Output 04/06/21 04/07/21 04/07/21 18:59 06:59 18:59 Intake Total 1610 Balance 1610 Weight 63.503 kg Intake: Intake, IV Titration 1300 Amount Sodium Chloride 0.9% 1, 1200 000 ml @ 100 mls/hr IV . Q10H [facility] Rx#:[id number] metroNIDAZOLE-NS PMX 500 100 mg In Saline 1 100ml.bag @ 100 mls/hr IVPB Q8H [facility] Rx#:[id number] Blood Product 310 Rc As-1 Unit 310 [id number] Other: Voiding Method Toilet # Voids 3 - Exam General appearance: The patient is alert, oriented, appears in no acute distress. HET: Head is normocephalic and atraumatic. Conjunctiva pink. Sclera anicteric. Neck: Supple without lymphadenopathy. Abdomen: Soft, nontender, nondistended with bowel sounds. No guarding or rigidity. Extremities: Normal skin color and turgor. No pedal edema Skin: No rashes, no jaundice Neurological: No focal deficits. Alert and oriented 3. - Labs CBC & Chem 7: 04/07/21 07:22 04/06/21 04:16 Labs: Abnormal Lab Results - Last 24 Hours (Table) 04/06/21 04/06/21 04/06/21 Range/Units 04:16 12:06 12:06 WBC (3.8-10.6) k/uL RBC 2.68 L (3.80-5.40) m/uL Hgb 7.0 L (11.4-16.0) gm/dL Hct 22.7 L (34.0-46.0) % MCHC 30.6 L (31.0-37.0) g/dL RDW 16.6 H (11.5-15.5) % Plt Count 503 H (150-450) k/uL Iron 27 L (50-170) ug/dL % Saturation 6.85 L (12.00-45.00) Stool Lactoferrin (NEGATIVE) Crossmatch See Detail 04/06/21 04/06/21 04/07/21 Range/Units 12:11 20:08 07:22 WBC 3.0 L (3.8-10.6) k/uL RBC 2.62 L 3.01 L (3.80-5.40) m/uL Hgb 6.8 L* 8.1 L (11.4-16.0) gm/dL Hct 24.4 L 25.8 L (34.0-46.0) % MCHC 27.7 L (31.0-37.0) g/dL RDW 16.1 H 16.7 H (11.5-15.5) % Plt Count 126 L D (150-450) k/uL Iron (50-170) ug/dL % Saturation (12.00-45.00) Stool Lactoferrin POSITIVE A (NEGATIVE) Crossmatch Microbiology - Last 24 Hours (Table) 04/06/21 12:11 Stool Culture - Preliminary Stool Assessment and Plan (1) GI bleed Narrative/Plan: 40-year-old female who presented to the emergency department with complaints of multiple episodes of diarrhea followed by some blood noted in her stool. The patient has multiple medical comorbidities including chronic anemia. She's been seen in the past for an upper GI bleed and found to have 2 nonbleeding antral ulcers without high risk to monitor for bleeding on EGD on 08/16/2020. The patient was supposed to follow-up with gastroenterology for possible repeat EGD in 6-8 weeks however she did not. Patient denies any previous history of lower GI bleed. States she had a low-grade temp at home of 100.4. She's had some nausea but no vomiting. Denies any abdominal pain. On admission hemoglobin is 8.4 is her baseline. Will order iron studies, stool studies, and patient will be started on and Flagyl empirically for possible infectious etiology. Current Visit: Yes Status: Acute Code(s): K92.2 - GASTROINTESTINAL HEMORRHAGE, UNSPECIFIED SNOMED Code(s): 92601242 (2) Chronic anemia Current Visit: Yes Status: Acute Code(s): D64.9 - ANEMIA, UNSPECIFIED SNOMED Code(s): 993346006 (3) Diarrhea Current Visit: Yes Status: Acute Code(s): R19.7 - DIARRHEA, UNSPECIFIED SNOMED Code(s): 34838635 (4) Fecal occult blood test positive Current Visit: Yes Status: Acute Code(s): R19.5 - OTHER FECAL ABNORMALITIES SNOMED Code(s): 42064433 (5) History of peptic ulcer disease Current Visit: Yes Status: Acute Code(s): Z87.11 - PERSONAL HISTORY OF PEPTIC ULCER DISEASE SNOMED Code(s): 169034455 Plan: 1. Stool studies ordered 2. Patient may have clear liquid diet, nothing by mouth after midnight 3. Protonix 40 mg twice a day 4. Flagyl 500 mg every 8 hours 5. Will proceed with EGD and colonoscopy tomorrow 6. Iron studies obtained, consistent with iron deficiency anemia 7. Bowel prep this evening 8. Repeat CBC in the morning, transfuse for hemoglobin less than 7 Thank you for this consultation, we will continue to follow. Dr. Tennille Kinney I agree with the dictator's note, documented as a scribe by Annamaria Walters.
[2021-04-07] MEDS ORDERED: PEG 3350-NA SULF,BICARB,CL/KCL 4,000 ML BOTTLE PO ONE (17:00)
[2021-04-07] MEDS: AMITRIPTYLINE HCL 10 MG TAB PO SCH (21:47)
[2021-04-08] MEDS ORDERED: SCOPOLAMINE 1.5MG/72HR PATCH TRANSDERM SCH
[2021-04-08] MEDS: SUMAtriptan succinate 50 MG TAB PO PRN (00:20)
[2021-04-08] MEDS: metroNIDAZOLE-NS PMX 500 MG in SALINE 1 100ML.BAG IVPB SCH ×3 (04:16→19:37)
[2021-04-08] MEDS: KETOROLAC 15 MG/ML 1 ML VIAL IVP PRN ×3 (04:18→18:27)
[2021-04-08 06:11] LABS: Anisocytosis Slight; HCT 26.1 % (34.0-46.0); Hypochromasia Marked; MCH 26.1 pg (25.0-35.0); MCHC 30.7 g/dL (31.0-37.0); Mean Platelet Volume 7.7; Platelet Count 416 k/uL (150-450); Poikilocytosis Moderate; RBC 3.08 m/uL (3.80-5.40); RDW 16.7 % (11.5-15.5); WBC 4.8 k/uL (3.8-10.6)
[2021-04-08] MEDS: HYDROmorphone 1 MG/ML 1 ML SYRINGE IVP PRN ×2 (06:13→22:55)
[2021-04-08] MEDS: SODIUM CHLORIDE 0.9% 1,000 ML IV SCH (06:18)
[2021-04-08] MEDS: ADVAIR INHALATION SCH ×2 (08:18→19:32)
[2021-04-08] MEDS: SODIUM FERRIC GLUCONAT-SUCROSE 125 MG in SODIUM CHLORIDE 0.9% 100 ML IVPB SCH (09:20)
[2021-04-08] MEDS: SUCRALFATE 1 GM TAB PO SCH ×4 (09:20→21:02)
[2021-04-08] MEDS: PANTOPRAZOLE 40 MG/10 ML VIAL IV SCH (09:21)
[2021-04-08 10:26] LABS: African American GFR (CKD) 130.3 (60.0-200.0); Anion Gap 8.6 mmol/L (4.00-12.00); BUN/Creat Ratio 11.67 Ratio (12.00-20.00); Calcium 8.7 mg/dL (8.7-10.3); Carbon Dioxide 22.4 mmol/L (21.6-31.8); Non-African American GFR(CKD) 112.4 (60.0-200.0); Potassium 3.5 mmol/L (3.5-5.5)
[2021-04-08] MEDS: ONDANSETRON 4 MG/2 ML VIAL IVP PRN ×2 (10:34→18:28)
[2021-04-08] MEDS ORDERED: TRIMETHOBENZAMIDE 100 MG/ML 2 ML VIAL IM PRN (10:49)
--- NOTE | 2021-04-08 11:45 | P.PN ---
Subjective Progress Note Date: 04/08/21 H&P Date: 04/06/21 This is a 39-year-old female patient of my clinic patient with past medical history of GI bleed in 2008, July 2020 was admitted for GI bleed secondary to 2 nonbleeding antral ulcers requiring transfusion 2 units packed RBCs, tobacco use, alcohol abuse, recurrent depression, generalized anxiety disorder. Patient was diagnosed with COVID-19 on October 30 2020,. She had lengthy admission, for which she required hospitalization until November 29 2020. She had complications from COVID-19 include ventilation intubation for respiratory failure, after she failed BiPAP treatments, she received Tocilizumab infusion, Covid pneumonia severe pulmonary interstitial and airspace edema, she required chest tube placements bilaterally, she had 3 spontaneous pneumothoraces, negative for pulmonary emboli, she did not require pressors, at that time, right chest tube was placed on November 06, it November 08, and November 25 2020, left chest tube, November 07 that she was seen by Dr. Conn during the last admission, and Dr. Tapia cardiothoracic her chest tube was removed on November 27 2020. The patient went home on room air, no oxygen requirements needed home therapies provided She has chronic anemia of chronic disease, history of bleeding ulcers no alcohol abuse, primary immune deficiency state, recurrent depression general since IT disorder, mild intermittent bronchial asthma, and migraines tobacco use, sepsis with MSSA bacteremia with MSSA pneumonia, moderate protein calorie malnutrition, GERD, She presents to emergency room, secondary to bright red blood living per rectum, with blood clots, that started yesterday, hopeless 17, for which she has frequent bowel movements, all with blood clots, and liquid brown stool. She had previous colonoscopies in the past, seen by Dr. Burris for this, also with EGD. Patient has epigastric pain, denies any recent alcohol use, denies any NSAID use, as she does have history of GI bleed in the past which she is maintained on Protonix daily. Last EGD, July 2020, done by Dr. Kinney which probably is negative, has active gastritis, with mucosal reactive changes, duodenal biopsy, reactive hyperplastic changes, current hemoglobin on admission 818, 8.4, from a previous hemoglobin of 8.0 in November 2015, Hemoccult stools were positive, INR of 1.0, potassium 4.0, normal creatinine and normal liver function tests C. diff test negative, consult with Dr. Burris 04/07 patient is complaining of significant headache, sinuses mainly, TMJ problems, has no nausea, however the abdominal pain has improved, patient did not sleep well last night, has cyclobenzaprine which she takes when necessary, we'll going to schedule these, 10 mg echodense been at at bedtime, Imitrex when necessary subcu, Topamax is on board, patient has no more diarrhea, she required one unit of packed red blood cells overnight, Ironinfusion began today for extremely low iron saturation at 6%, 2 days for iron infusion to be given. Diarrhea has resolved since last night. 04/08: Patient still has significant headache, CT sinuses are negative, for infection she has frontal headache, periorbital pain, occipital headache, she normally takes 6-8 Excedrin day prior to this along the Topamax, however headache does not go away, still lingers, we'll going to consult neurology to rule out normal pressure hydrocephalus, get MRI of the brain, we've looked at her CT unenhanced June 2020 which is unremarkable, the headache is significant that she kept coming back with GI bleed dilated to much aspirin use. Consult with Dr. Conn and dr Og for occipital nerve block treatments, rate CRP most likely would not help at this time secondary to her diarrhea Review of Systems Constitutional: Reports as per HPI, Denies anorexia, Denies chills, Denies chronic headaches, Denies chronic pain, Denies daytime sleepiness, Denies fatigue, Denies fever, Denies lethargy, Denies malaise, Denies night sweats, Denies poor appetite, Denies sweats, Denies weakness, Denies weight gain, Denies weight loss Ears, nose, mouth and throat: Reports as per HPI, Denies ant. neck pain, Denies bleeding gums, Denies dental pain, Denies dysphagia, Denies epistaxis, Denies headache, Denies hoarseness, Denies mouth pain, Denies nasal congestion, Denies nasal discharge, Denies neck fullness/pressure, Denies neck lump, Denies nose pain, Denies odynophagia, Denies post-nasal drip, Denies sinus pain, Denies sinus pressure, Denies swelling in mouth, Denies swelling in throat, Denies sore throat, Denies vertigo, Denies voice changes Cardiovascular: Reports as per HPI, Denies chest pain, Denies irregular heart beat, Denies paroxysmal nocturnal dyspnea Respiratory: Reports as per HPI, Denies congestion, Denies cough, Denies dyspnea, Denies pain on inspiration, Denies wheezing Gastrointestinal: Reports as per HPI, Reports abdominal pain (Epigastric), Reports BRBPR, Denies excessive gas, Denies heartburn, Denies hematemesis, Denies nausea, Denies vomiting Genitourinary: Reports as per HPI, Denies hematuria Menstruation: Reports as per HPI Musculoskeletal: Reports as per HPI, Denies arm numbness/tingling, Denies atrophy, Denies fractures, Denies frequent falls, Denies gait dysfunction, Denies hot joints, Denies leg numbness/tingling, Denies limitation of motion, Denies loss of height, Denies low back pain, Denies morning stiffness, Denies muscle cramps, Denies muscle weakness, Denies myalgias, Denies neck pain, Denies neck stiffness, Denies prior amputations, Denies redness of joints, Denies shooting arm pain, Denies shooting leg pain Integumentary: Reports as per HPI Neurological: Reports as per HPI Psychiatric: Reports as per HPI Endocrine: Reports as per HPI, Reports increase in ring/shoe/hat size Hematologic/Lymphatic: Denies easy bleeding Allergic/Immunologic: Reports as per HPI, Denies allergic rhinitis, Denies anaphylaxis, Denies angioedema, Denies gluten intolerance, Denies persistent infections, Denies seasonal allergies, Denies urticaria, Denies wheezing Objective - Vital Signs Vital signs: Vital Signs Temp 98.4 F 04/08/21 05:00 Pulse 84 04/08/21 05:00 Resp 16 04/08/21 05:00 BP 102/66 04/08/21 05:00 Pulse Ox 97 04/08/21 05:00 Intake & Output 04/07/21 04/08/21 04/08/21 18:59 06:59 18:59 Intake Total 480 1300 Balance 480 1300 Intake: Intake, IV Titration 1300 Amount Sodium Chloride 0.9% 1, 1200 000 ml @ 100 mls/hr IV . Q10H [facility] Rx#:[id number] metroNIDAZOLE-NS PMX 500 100 mg In Saline 1 100ml.bag @ 100 mls/hr IVPB Q8H [facility] Rx#:[id number] Oral 480 Other: Voiding Method Toilet Toilet # Voids 2 4 - Constitutional General appearance: Present: cooperative, no acute distress - EENT Eyes: Present: EOMI, PERRLA, dentition normal, normal appearance ENT: Present: NA/AT - Neck Neck: Present: normal ROM - Respiratory Respiratory: bilateral: CTA, negative: diminished, dullness - Cardiovascular Rhythm: regular Abnormal Heart Sounds: Absent: systolic murmur, diastolic murmur, rub, S3 Gallop, S4 Gallop, click, other - Gastrointestinal General gastrointestinal: Present: rigid - Integumentary Integumentary: Present: normal - Neurologic Neurologic: Present: CNII-XII intact - Musculoskeletal Musculoskeletal: Present: strength equal bilaterally - Psychiatric Psychiatric: Present: A&O x's 3 - Labs CBC & Chem 7: 04/08/21 05:33 04/08/21 05:33 Labs: Abnormal Lab Results - Last 24 Hours (Table) 04/08/21 04/08/21 Range/Units 05:33 05:33 RBC 3.08 L (3.80-5.40) m/uL Hgb 8.0 L (11.4-16.0) gm/dL Hct 26.1 L (34.0-46.0) % MCHC 30.7 L (31.0-37.0) g/dL RDW 16.7 H (11.5-15.5) % Chloride 112 H (96-109) mmol/L BUN 7.0 L (9.0-27.0) mg/dL BUN/Creatinine Ratio 11.67 L (12.00-20.00) Ratio Assessment and Plan Plan: 1. Suspect Lower GI bleed, with acute blood loss prior history of upper GI bleed in the past, EGD July 2021, and remarkable, seen by Dr. Burris for which we'll going to consult this time. Patient agrees to blood transfusion for hemoglobin under 7, patient will be made nothing by mouth postmidnight, clear liquid diet till seen by GI, must discontinue Excedrin, as it contains aspirin. No prior history of colonoscopy or capsule endoscopy PPI, 40 mg every 12 hours, 2 personal history of Covid, Covid 19 pneumonia diagnosed with,prior MSSA pneumonia, complicated by right pneumothorax,Right sided pneumothorax requiring chest tube 11/06, 11/08, 11/25 last Imitrex was discontinued on November 27 no current symptomatology 3. History of mild intermittent bronchial asthma. Continue Ventolin inhaler 4 times daily as needed. 4. Recurrent depression and generalized anxiety disorder: She is on multiple medication between BuSpar, Abilify, Wellbutrin and Cymbalta 5. Primary immunodeficiency, stable. Check for immunoglobulin IgG A and M 6. Chronic anemia of chronic disease most likely due to history of bleeding ulcers and alcohol abuse. 7. Tobacco use and dependence including vaping. 8. History of Daily alcohol use/abuse. Stable. 9. Intractable multifactorial headaches with Migraine headaches. Continue Ind eral 60 mg daily. No Fioricet secondary to insomnia, continue on Topamax, Elavil discontinue Excedrin Imitrex added when necessary, check CT sinuses active, as the headaches aren't controlled, might need antibiotic for sinusitis coverage, on ketorolac they would not be helpful as the patient has acute gastroenteritis at this time. Consult neurology, consult Dr. Singh, for occipital nerve block, MRI of the brain with and without contrast, eval for low pressure hydrocephalus, against, cavenous sinus thrombosis history of long haul Covid, neuro for eval, pseudotumor cerebri 10. Acute anemia s s with blood loss. transfusion of 1 unit of packed RBCs for hemoglobin under 7. 11. Gastroesophageal reflux disease with history of bleeding ulcers. Continue Protonix 40 mg twice daily and Carafate 1 g 4 times daily.
[2021-04-08] MEDS ORDERED: LACTATED RINGERS 1,000 ML IV ONE (11:48)
[2021-04-08] MEDS ORDERED: ONDANSETRON 4 MG/2 ML VIAL IVP ONE (12:14)
[2021-04-08] MEDS ORDERED: PROPOFOL 10 MG/ML 20 ML VIAL IV ONE (12:36)
[2021-04-08] MEDS ORDERED: LIDOCAINE 1% INJ 10MG/ML (20 ML MDV) ONE (12:36)
--- NOTE | 2021-04-08 12:46 | P.PCN ---
Date of Procedure: 04/08/21 Procedure(s) Performed: BRIEF HISTORY: Patient is a 40-year-old, pleasant, white female admitted hospital with severe diarrhea and GI bleed. She will also noted to have iron deficiency anemia with a hemoglobin of 6.8 g/dL requiring the unit of blood transition. She is scheduled for an upper endoscopy as well as colonoscopy today. However she did not take the colon prep and hence an upper endoscopy is being performed. PROCEDURE PERFORMED: Esophagogastroduodenoscopy with biopsy. PREOPERATIVE DIAGNOSIS: Iron deficiency anemia and GI bleed. IV sedation per anesthesia. PROCEDURE: After informed consent was obtained, the patient was brought into the endoscopy unit. IV sedation was administered by Anesthesia under continuous monitoring. Initially the Olympus GIF-140 video endoscope was inserted into the mouth. Esophagus intubated without any difficulty. It was gradually advanced into the stomach and duodenum and carefully examined. The bulb and the second part of the duodenum appeared normal. Biopsies were done from the duodenum to rule out celiac disease. The scope at this time was withdrawn to the stomach, adequately insufflated with air, and upon careful examination, mucosa of the antrum, had a 1 cm linear ulceration which was biopsied. The body, cardia and the fundus appeared normal. The scope was then withdrawn into the esophagus. The GE junction was located at 39 cm from the incisors. The esophagus appeared normal. There were no erosions or ulcerations seen and the patient tolerated the procedure well. IMPRESSION: 1. 1 cm superficial linear antral ulcer status post biopsy. 2.. Small hiatal hernia. RECOMMENDATIONS: The findings of this examination were discussed with the patient. She was advised to follow with the biopsy results. At this time and continue monitoring her CBC daily. Continue Protonix 40 mg daily. We'll schedule her for an outpatient colonoscopy next week..
[2021-04-08] MEDS: CYCLOBENZAPRINE 10 MG TAB PO SCH (13:04)
[2021-04-08] MEDS: DULoxetine HCL 60 MG CAPSULE.DR PO SCH (13:04)
[2021-04-08] MEDS: ARIPiprazole 5 MG TAB PO SCH (13:04)
[2021-04-08] MEDS: buPROPion XL 150 MG TAB.ER.24H PO SCH (13:04)
[2021-04-08] MEDS: TOPIRAMATE 25 MG TAB PO SCH ×2 (13:04→21:06)
--- NOTE | 2021-04-08 13:53 | P.PAINCN ---
History of Present Illness - Reason for Consult Consult date: 04/08/21 - History of Present Illness This is 40 years old female with a chronic history of severe headache,the occipital neuralgia and migraine headache, patient was admitted to [facility] secondary to dominant pain and patient found to have peptic ulcer, patient complaining of severe intractable headache, radiates from the base of the skull to the top of the head, she denies any motor or sensory deficit she denies any visual changes, and was treated with multiple medications for headache without any significant change in her headache level, patient currently on Tylenol 650 amitriptyline 10 mg daily at bedtime Flexeril 10 mg daily, Dilaudid 1 mg every 4 hours Topamax 50 mg twice a day and Imitrex 100 mg daily when necessary and she continued to have severe headache Past Medical History Past Medical History: Asthma, Fibromyalgia, GERD/Reflux, GI Bleed Additional Past Medical History / Comment(s): covid + pneumonia 10/30/2020 complicated by respiratory failure, intubation, mechanical ventilation, bilateral pneumothoraces, COPD, Other hx: Primary immunodeficiency, antral ulcers, GI bleed, anemia, IBS, migraines, back pain, TMJ, seasonal allergies History of Any Multi-Drug Resistant Organisms: None Reported Past Surgical History: Breast Surgery, Ear Surgery, Uterine Ablation Additional Past Surgical History / Comment(s): EGDs, colonoscopies, bilateral breast augmentation, septoplasty, L ear trauma/reattached. Past Anesthesia/Blood Transfusion Reactions: No Reported Reaction, Motion Sickness Additional Past Anesthesia/Blood Transfusion Reaction / Comm: Pt has received blood in past without reaction. Past Psychological History: ADD/ADHD, Anxiety, Bipolar, Depression, PTSD Smoking Status: Former smoker, Vaper Past Alcohol Use History: Abuse Past Drug Use History: None Reported - Past Family History Father Additional Family Medical History / Comment(s): Father at age 51 from accidental drug overdose. Mother Family Medical History: Fibromyalgia Additional Family Medical History / Comment(s): Mother is alive at age 61 with history of primary immunodeficiency. Brother(s) Additional Family Medical History / Comment(s): Patient has one brother with hi story of alcohol abuse. Patient does not have any sisters. Patient has 2 children with no major medical problems. Medications and Allergies Home Medications Medication Instructions Recorded Confirmed Type Cetirizine HCl [Zyrtec] 10 mg PO DAILY PRN 02/26/20 04/06/21 History DULoxetine HCL [Cymbalta] 60 mg PO DAILY 02/26/20 04/06/21 History buPROPion XL [Wellbutrin XL] 150 mg PO DAILY 08/14/20 04/06/21 History Sucralfate [Carafate] 1 gm PO ACHS #60 tab 08/16/20 04/06/21 Rx ARIPiprazole [Abilify] 7.5 mg PO DAILY 11/04/20 04/06/21 History Albuterol Sulfate [Proair Hfa] 2 puff INHALATION RT-Q4H PRN 11/04/20 04/06/21 History Cyclobenzaprine [Flexeril] 5 mg PO TID PRN 11/04/20 04/06/21 History Pantoprazole Sodium [Protonix] 40 mg PO DAILY 11/04/20 04/06/21 History busPIRone HCl [Buspar] 10 mg PO BID PRN 11/04/20 04/06/21 History Amitriptyline HCl [Elavil] 10 mg PO HS #30 tab 11/29/20 04/06/21 Rx Ondansetron Odt [Zofran ODT] 4 mg PO Q8H PRN 12/03/20 04/06/21 History Rizatriptan Benzoate [Rizatriptan] 10 mg PO DAILY PRN 12/14/20 04/06/21 History [id number]-Ltuz [id number] 1 tab PO QID PRN 04/06/21 04/06/21 History [Excedrin] Fluticasone/Salmeterol [Advair 1 puff INHALATION RT-BID 04/06/21 04/06/21 Hist ory 250-50 Diskus] Lung Cleanse 2 cap PO DAILY PRN 04/06/21 04/06/21 History Propranolol HCl [Propranolol HCl 60 mg PO DAILY 04/06/21 04/06/21 History ER] Sodium Chloride [[place]] 1 spray EA NOSTRIL QID PRN 04/06/21 04/06/21 History Topiramate [Topiramate ER] 50 mg PO DAILY 04/06/21 04/06/21 History diphenhydrAMINE HCL [Benadryl] 25 mg PO Q4H PRN 04/06/21 04/06/21 History Allergies Allergy/AdvReac Type Severity Reaction Status Date / Time adhesive Allergy Rash/Hives Verified 04/06/21 08:11 latex Allergy Rash/Hives Verified 04/06/21 08:11 prochlorperazine Allergy Unknown Verified 04/06/21 08:11 [From Compazine] ciprofloxacin [From Cipro] AdvReac Hallucinati Verified 04/06/21 08:11 ons citalopram [From Celexa] AdvReac Suicidal Verified 04/06/21 08:11 thoughts diazepam [From Valium] AdvReac Hallucinati Verified 04/06/21 08:11 ons/Anxiety fluoxetine [From Prozac] AdvReac Suicidal Verified 04/06/21 08:11 thoughts metoclopramide [From Reglan] AdvReac Hallucinati Verified 04/06/21 08:11 ons/Anxiety paroxetine [From Paxil] AdvReac Suicidal Verified 04/06/21 08:11 thoughts Penicillins AdvReac Nausea & Verified 04/06/21 08:11 Vomiting Physical Exam Vitals: Vital Signs Temp Pulse Resp BP Pulse Ox 04/08/21 08:00 80 16 04/08/21 05:00 98.4 F 84 16 102/66 97 04/07/21 20:28 97.4 F L 95 16 101/68 99 Intake and Output 04/07/21 04/08/21 04/08/21 22:59 06:59 14:59 Intake Total 1300 100 Balance 1300 100 Intake: IV 100 Intake, IV Titration 1300 Amount Sodium Chloride 0.9% 1, 1200 000 ml @ 100 mls/hr IV . Q10H [facility] Rx#:[id number] metroNIDAZOLE-NS PMX 500 100 mg In Saline 1 100ml.bag @ 100 mls/hr IVPB Q8H [facility] Rx#:[id number] Other: Voiding Method Toilet Toilet # Voids 2 4 Physical Examinations : -Constitutiona : Cooperative , not in acute distress . -HEENT : nech : supple , no Lymphadenopathy , normal thyroid size . : eyes : no ptosis , no icterus, no photophobia . - neurologic : Cranial nerve II to XII intact , no focal neurological deffecit . -psychatric : alert , oriented X 3 , appropriate affect , intact judgment and insight . -Lymphatic : no Lymphadenopathy . - musculoskeltal : Cervical Spine motor stregnth in the deltoid and biceps, normal right side , normal Left side motor stregnth biceps and the wrist extensors normal right side ,normal left side . motor stregnth in the triceps muscle . normal Right side , normal Left side deep tendon reflexes normal at the biceps , normal at Brachioradialis , normal at triceps. cervical facet loading test: Positive Bilaterally sever tenderness over the occipital nerves bilaterally multiple trigger point identified in the cervical paraspinal muscles. Flexion and extension of the neck associated with severe pain Lumber spine moter stegnth lower extremities ,thigh and legs 5/5 Right side , 5/5 Left side Results CBC & Chem 7: 04/08/21 05:33 04/08/21 05:33 Labs: Abnormal Lab Results - Last 24 Hours (Table) 04/08/21 04/08/21 Range/Units 05:33 05:33 RBC 3.08 L (3.80-5.40) m/uL Hgb 8.0 L (11.4-16.0) gm/dL Hct 26.1 L (34.0-46.0) % MCHC 30.7 L (31.0-37.0) g/dL RDW 16.7 H (11.5-15.5) % Chloride 112 H (96-109) mmol/L BUN 7.0 L (9.0-27.0) mg/dL BUN/Creatinine Ratio 11.67 L (12.00-20.00) Ratio Assessment and Plan Plan: Assessment and plan=1-occipital neuralgia bilaterally. 2-cervicogenic headache. 3- cervical spondylosis. 4-GI bleed she will be good candidate to have bilateral occipital nerve block Time with Patient: Greater than 30 PQRS Measure Charge Sheet PQRS Narrative: Smoking Status Former smoker Blood Pressure [Right Arm] 102/66 Blood Pressure 80/49 Pain Intensity [Head] 0 Pain Intensity [Back] 7 Pain Intensity 0 Pain Scale Used Non Verbal Pain Indicator Scale Used Non Verbal Pain Indicator Home Medications: Ambulatory Orders Cetirizine HCl [Zyrtec] 10 mg PO DAILY PRN 02/26/20 DULoxetine HCL [Cymbalta] 60 mg PO DAILY 02/26/20 buPROPion XL [Wellbutrin XL] 150 mg PO DAILY 08/14/20 Sucralfate [Carafate] 1 gm PO ACHS #60 tab 08/16/20 ARIPiprazole [Abilify] 7.5 mg PO DAILY 11/04/20 Albuterol Sulfate [Proair Hfa] 2 puff INHALATION RT-Q4H PRN 11/04/20 Cyclobenzaprine [Flexeril] 5 mg PO TID PRN 11/04/20 Pantoprazole Sodium [Protonix] 40 mg PO DAILY 11/04/20 busPIRone HCl [Buspar] 10 mg PO BID PRN 11/04/20 Amitriptyline HCl [Elavil] 10 mg PO HS #30 tab 11/29/20 Ondansetron Odt [Zofran ODT] 4 mg PO Q8H PRN 12/03/20 Rizatriptan Benzoate [Rizatriptan] 10 mg PO DAILY PRN 12/14/20 [id number] [Excedrin] 1 tab PO QID PRN 04/06/21 Fluticasone/Salmeterol [Advair 250-50 Diskus] 1 puff INHALATION RT-BID 04/06/21 Lung Cleanse 2 cap PO DAILY PRN 04/06/21 Propranolol HCl [Propranolol HCl ER] 60 mg PO DAILY 04/06/21 Sodium Chloride [[place]] 1 spray EA NOSTRIL QID PRN 04/06/21 Topiramate [Topiramate ER] 50 mg PO DAILY 04/06/21 diphenhydrAMINE HCL [Benadryl] 25 mg PO Q4H PRN 04/06/21
[2021-04-08] MEDS ORDERED: fentaNYL (PF) 50 MCG/ML 2 ML AMP ONE (13:58)
[2021-04-08] MEDS ORDERED: ROPIVACAINE 5MG/ML 20ML VIAL ONE (13:58)
[2021-04-08] MEDS ORDERED: methylPREDNISolone ACETATE 40 MG/ML 1 ML VIAL ONE (13:58)
[2021-04-08] MEDS ORDERED: MIDAZOLAM 2 MG/2 ML VIAL ONE (13:58)
--- NOTE | 2021-04-08 14:16 | P.PCN ---
Date of Procedure: 04/08/21 Procedure(s) Performed: Preoperative diagnoses= 1- Greater occipital neuralgia Postoperative diagnoses= same as preoperative diagnosis. Procedure= Bilateral Greater occipital nerve block Anesthesia= monitered anesthesia care as per anesthesia department Estimated blood loss=minimal. Procedure indication= the patient had a history of severe chronic neck pain ,and headache, diagnosed with occipital neuralgia exam was positive for severe tenderness over the occipital nerve bilaterally, she will be a good candidate occipital nerve block, patient failed conservative management Procedure description= the patient was seen and identified in the preoperative holding area, risks and benefits and alternative of the procedure and possible complications discussed with the patient, and he agreed with the preceding, patient signed the consent, an IV was started, and vital signs were monitored and were stable throughout the procedure, patient was placed in the sitting position or table and the neck area was prepped and draped with a sterile fashion, vital signs were closely monitored during the procedure, 25-gauge needle advanced 1 inch lateral to the occipital protuberance on the right side, at the location of the right occipital nerve , then after negative aspiration for heme and CSF and there was no paresthesia during the injection, 6 ml of Robivacaine 0.5% and 20 mg of Depo-Medrol injected after negative aspiration, the needle removed, and the entire same procedure was repeated for the left Greater occipital nerve. Patient tolerated the procedure well without any complication, The patient returned to supine position after the back was cleaned and a Band- Aid applied, the patient transported to recovery room in stable condition and he was monitored for 30 minutes before he was discharged home and then patient was reexamined before going home and patient was discharged in stable condition and patient will follow up with the pain clinic in a few weeks.
--- NOTE | 2021-04-08 15:13 | P.CNNES ---
History of Present Illness Consult date: 04/08/21 Requesting physician: Patricia Gonzalez Reason for Consult: intractable headache, can't rule out NPH History of Present Illness: This is a 40-year-old woman with medical history of migraine, occipital neuralgia, TMJ, chronic anemia, history of peptic ulcer disease with GI bleed, bipolar, ADHD, PTSD, depression who presented to the emergency department on 04/06/2021 for multiple epsidoes of diarrhea with bright red blood in stool. Neurology is consulted for headache. She stated that she has history of migraine and she has headaches over bilateral frontal temporal and in the occipital region and she's been having headaches since the age of 13. She said that she has a headache on a daily basis as the. It's a throbbing headache, 10 over 10, she has photophobia photophobia and nausea and sometimes vomiting. She has to be in a dark quiet place. She denies any auras with the headache. Upon asking her if she had any visual disturbance during the migraine and she said no but she said that she has visual disturbance and she wear glasses as a result of these headaches. She said the headache can last the 1-2 days. Currently she is having the headache and it's similar presentation. She denies any focal weaknes s, numbness, difficulty swallowing, difficulty getting her words out, currently she denies any visual disturbance, she said with a headache sometimes she gets muffling noise. She denies any urinary or bowel incontinence, denies any consistent gait disturbance. Denies any memory loss. She said that she tried multiple medications in the past. She follows-up with Dr. Whittaker for her Migraine management. She does not recall what medication she was on in the past but she said that she was on multiple medication. She said that she takes Excedrin and Benadryl the for the headache. She said that the she was tried on Topamax 50 [place] daily in October 2020 and helped initially but the look afterw ards after a brief period of time she has not noticed any benefits. She denies any coffee consumptions, any caffeinated drinks. She is a former smoker. Per the patient nurse the patient has been getting Zofran, Dilaudid, Toradol, Tylenol PRN, Topamax and Imitrex PRN and his headaches continue. A shunt denies follow-up with a neurologist in outpatient. She had the COVID-19 pneumonia in 10/2020. Some of the patients home medications consists of: Topamax 50 mg daily, Flexeril 5 mg 1 tablet twice a day when necessary him Abilify, Protonix, propranolol 60 mg daily, amitriptyline 10 mg daily at bedtime, Cymbalta 60 mg a daily, Benadryl 25 mg as needed. Abilify. Patient most recent vitals are pressure of 102/66, heart rate of 84, respiratory of 16, temperature of 98.4 Fahrenheit oral and pulse ox of 97% at room air. In the hospital the patient had a CT of the sinus ordered by the primary team and it's reported as unremarkable CT of paranasal sinuses. During the hospital stay the patient's hemoglobin was as low as 6.8 and the patient presented with a hemoglobin of 8.4. Patient white blood cell has been normal and the last one is 4.8 thousand. Chemistry panel is a sodium was 143, creatinine is 0.6, calcium is 9.9, AST of 22 and ALT of 15 which is within normal limits. Stool occult blood is positive. Patient just recently came back from occipital nerve block done by pain management. Review of Systems Review of system: The 12 point system was reviewed and apparent positive and negative per HPI. Past Medical History Past Medical History: Asthma, Fibromyalgia, GERD/Reflux, GI Bleed Additional Past Medical History / Comment(s): covid + pneumonia 10/30/2020 complicated by respiratory failure, intubation, mechanical ventilation, bilateral pneumothoraces, COPD, Other hx: Primary immunodeficiency, antral ulcers, GI bleed, anemia, IBS, migraines, back pain, TMJ, seasonal allergies History of Any Multi-Drug Resistant Organisms: None Reported Past Surgical History: Breast Surgery, Ear Surgery, Uterine Ablation Additional Past Surgical History / Comment(s): EGDs, colonoscopies, bilateral br east augmentation, septoplasty, L ear trauma/reattached. Past Anesthesia/Blood Transfusion Reactions: No Reported Reaction, Motion Sickness Additional Past Anesthesia/Blood Transfusion Reaction / Comment(s): Pt has received blood in past without reaction. Past Psychological History: ADD/ADHD, Anxiety, Bipolar, Depression, PTSD Smoking Status: Former smoker, Vaper Past Alcohol Use History: Abuse Past Drug Use History: None Reported - Past Family History Father Additional Family Medical History / Comment(s): Father at age 51 from accidental drug overdose. Mother Family Medical History: Fibromyalgia Additional Family Medical History / Comment(s): Mother is alive at age 61 with history of primary immunodeficiency. Brother(s) Additional Family Medical History / Comment(s): Patient has one brother with history of alcohol abuse. Patient does not have any sisters. Patient has 2 children with no major medical problems. Medications and Allergies Home Medications Medication Instructions Recorded Confirmed Type Cetirizine HCl [Zyrtec] 10 mg PO DAILY PRN 02/26/20 04/06/21 History DULoxetine HCL [Cymbalta] 60 mg PO DAILY 02/26/20 04/06/21 History buPROPion XL [Wellbutrin XL] 150 mg PO DAILY 08/14/20 04/06/21 History Sucralfate [Carafate] 1 gm PO ACHS #60 tab 08/16/20 04/06/21 Rx ARIPiprazole [Abilify] 7.5 mg PO DAILY 11/04/20 04/06/21 History Albuterol Sulfate [Proair Hfa] 2 puff INHALATION RT-Q4H PRN 11/04/20 04/06/21 History Cyclobenzaprine [Flexeril] 5 mg PO TID PRN 11/04/20 04/06/21 History Pantoprazole Sodium [Protonix] 40 mg PO DAILY 11/04/20 04/06/21 History busPIRone HCl [Buspar] 10 mg PO BID PRN 11/04/20 04/06/21 History Amitriptyline HCl [Elavil] 10 mg PO HS #30 tab 11/29/20 04/06/21 Rx Ondansetron Odt [Zofran ODT] 4 mg PO Q8H PRN 12/03/20 04/06/21 History Rizatriptan Benzoate [Rizatriptan] 10 mg PO DAILY PRN 12/14/20 04/06/21 History Cxiybjb-Jkjn-[id number] [id number] 1 tab PO QID PRN 04/06/21 04/06/21 History [Excedrin] Fluticasone/Salmeterol [Advair 1 puff INHALATION RT-BID 04/06/21 04/06/21 History 250-50 Diskus] Lung Cleanse 2 cap PO DAILY PRN 04/06/21 04/06/21 History Propranolol HCl [Propranolol HCl 60 mg PO DAILY 04/06/21 04/06/21 History ER] Sodium Chloride [[place]] 1 spray EA NOSTRIL QID PRN 04/06/21 04/06/21 History Topiramate [Topiramate ER] 50 mg PO DAILY 04/06/21 04/06/21 History diphenhydrAMINE HCL [Benadryl] 25 mg PO Q4H PRN 04/06/21 04/06/21 History Allergies Allergy/AdvReac Type Severity Reaction Status Date / Time adhesive Allergy Rash/Hives Verified 04/06/21 08:11 latex Allergy Rash/Hives Verified 04/06/21 08:11 prochlorperazine Allergy Unknown Verified 04/06/21 08:11 [From Compazine] ciprofloxacin [From Cipro] AdvReac Hallucinati Verified 04/06/21 08:11 ons citalopram [From Celexa] AdvReac Suicidal Verified 04/06/21 08:11 thoughts diazepam [From Valium] AdvReac Hallucinati Verified 04/06/21 08:11 ons/Anxiety fluoxetine [From Prozac] AdvReac Suicidal Verified 04/06/21 08:11 thoughts metoclopramide [From Reglan] AdvReac Hallucinati Verified 04/06/21 08:11 ons/Anxiety paroxetine [From Paxil] AdvReac Suicidal Verified 04/06/21 08:11 thoughts Penicillins AdvReac Nausea & Verified 04/06/21 08:11 Vomiting Physical Examination - Vital Signs Vital Signs: Vital Signs Temp Pulse Resp BP Pulse Ox 04/08/21 08:00 80 16 04/08/21 05:00 98.4 F 84 16 102/66 97 04/07/21 20:28 97.4 F L 95 16 101/68 99 Intake and Output 04/07/21 04/08/21 04/08/21 22:59 06:59 14:59 Intake Total 1300 100 Balance 1300 100 Intake: IV 100 Intake, IV Titration 1300 Amount Sodium Chloride 0.9% 1, 1200 000 ml @ 100 mls/hr IV . Q10H [facility] Rx#:[id number] metroNIDAZOLE-NS PMX 500 100 mg In Saline 1 100ml.bag @ 100 mls/hr IVPB Q8H [facility] Rx#:[id number] Other: Voiding Method Toilet Toilet # Voids 2 4 GENERAL: The patient is lying in bed and is not in acute distress. She states her headache is 10/10 but does not appear in severe distress (and per nurse agrees). CHEST: The heart rate is regular rate rhythm. No murmurs to auscultation. No carotid bruit bilaterally. LUNG: Clear to auscultation bilaterally no wheezing noted throughout. Not labored breathing. ABDOMEN/GI: Bowel sounds present in all 4 quadrants. No tenderness to palpation throughout. NEUROLOGICAL: Higher mental function: The patient is awake, alert, oriented to self, place and time. Patient is following commands. No aphasia and no neglect. Cranial nerves: The pupils are round, equal and reactive to light and accommodation. Visual eng are full to confrontation throughout. Extraocular movement is intact no nystagmus is noted. Facial sensation is normal to touch throughout. The facial strength is normal throughout. Hearing is normal bilaterally to hand rub. Tongue is midline and moved [id number] without any difficulty. No dysarthria is noted. Shoulder shrug is normal bilaterally. Motor: Gait is deferred. The strength is 5 over 5 throughout. Normal tone and bulk. Cerebellum: Normal finger to nose heel to barrios bilaterally. Sensation: Sensation is normal to touch throughout. Reflexes (right/left): 2+ throughout. Plantars are downgoing bilaterally. Results - Laboratory Findings CBC and BMP: 04/08/21 05:33 04/08/21 05:33 Abnormal Lab Findings: Abnormal Labs 04/06/21 04/06/21 04/06/21 04:16 04:16 04:16 WBC RBC 3.32 L Hgb 8.4 L Hct 28.1 L MCHC 30.0 L RDW 16.2 H Plt Count 610 H APTT 20.0 L Chloride Carbon Dioxide BUN BUN/Creatinine Ratio Plasma Lactic Acid Domo Iron % Saturation Stool Occult Blood Positive H Stool Lactoferrin Crossmatch 04/06/21 04/06/21 04/06/21 04:16 04:16 04:16 WBC RBC Hgb Hct MCHC RDW Plt Count APTT Chloride 109 H Carbon Dioxide 18 L BUN 24 H BUN/Creatinine Ratio Plasma Lactic Acid Domo 0.6 L Iron % Saturation Stool Occult Blood Stool Lactoferrin Crossmatch See Detail 04/06/21 04/06/21 04/06/21 12:06 12:06 12:11 WBC RBC 2.68 L Hgb 7.0 L Hct 22.7 L MCHC 30.6 L RDW 16.6 H Plt Count 503 H APTT Chloride Carbon Dioxide BUN BUN/Creatinine Ratio Plasma Lactic Acid Domo Iron 27 L % Saturation 6.85 L Stool Occult Blood Stool Lactoferrin POSITIVE A Crossmatch 04/06/21 04/07/21 04/08/21 20:08 07:22 05:33 WBC 3.0 L RBC 2.62 L 3.01 L 3.08 L Hgb 6.8 L* 8.1 L 8.0 L Hct 24.4 L 25.8 L 26.1 L MCHC 27.7 L 30.7 L RDW 16.1 H 16.7 H 16.7 H Plt Count 126 L D APTT Chloride Carbon Dioxide BUN BUN/Creatinine Ratio Plasma Lactic Acid Domo Iron % Saturation Stool Occult Blood Stool Lactoferrin Crossmatch 04/08/21 05:33 WBC RBC Hgb Hct MCHC RDW Plt Count APTT Chloride 112 H Carbon Dioxide BUN 7.0 L BUN/Creatinine Ratio 11.67 L Plasma Lactic Acid Domo Iron % Saturation Stool Occult Blood Stool Lactoferrin Crossmatch Assessment and Plan Assessment: Cephalgia and seems migraine in nature (states headaches are 10/10 but does not appear to be 10/10). Component of Occipital Cephalgia bilaterally History of migraine (since age 13 y/o) GI bleed (+ve fecal occult blood test) Chronic anemia History of peptic ulcer disease History of bipolar Depression History of PTSD History of ADHD History of anxiety Polypharmacy Plan: Patient started on Imitrex 100 mg by mouth when necessary for migraine, is also on Topamax 50 [place] [employer] twice a day for the headaches, also on Dilaudid 1 mg every 4 hour for pain. Pain specialist is consulted and that they'll perform bilateral occipital nerve block. If that improves there is no need to modify medication. Patient was on Topamax 50mg daily at home and currently on bid (which she had benefit to 1 tab daily dose and I think we should try this medication for longer peroid before making too many modification). MRI of the brain, MRA and MRV of the head is ordered by primary team and is pending. Down the line of the patient does not show improvements as an outpatient possibly consider going up on the Topamax and if there is no improvement possible consider Botox. Patient was notified to avoid the Excedrin Benadryl, NSAIDs that can cause rebound headache. Gastroenterology team is on board. We'll defer the rest of the medical management to the primary team. Recommend patient to follow-up with a neurologist as an outpatient within 1-2 weeks for further management of her headaches. The plan was discussed with the patient nurse. Thank you for the consultation. Miguel Conn MD Neuro-Hospitalist Time with Patient: Greater than 30
[2021-04-08 20:16] VITALS: RESP 16
[2021-04-08] MEDS: PROPRANOLOL LA 60 MG CAP.SA.24H PO SCH (21:06)
[2021-04-08] MEDS: AMITRIPTYLINE HCL 10 MG TAB PO SCH (21:06)
--- NOTE | 2021-04-08 21:18 | MR ---
EXAMINATION TYPE: MR brain wo/w con DATE OF EXAM: 04/08/2021 COMPARISON: None HISTORY: Intractable headache r/o nirali sin thrombo NPH. CONTRAST: Standard multiplanar, multisequence MRI departmental protocol utilizing 7 mL intravenous Gadavist jovanni olinium contrast. Ventricles have normal size. There is no mass effect nor midline shift. There is no sign of intracran ial hemorrhage. Diffusion images show no evidence of an acute infarct. Whtifield-white matter structures have overall fairly normal signal pattern. There is no evidence of cereb ral edema. The corpus callosum is intact. Sella turcica appears normal. There is no evidence of orbit al mass. Contrast images show normal enhancement of the venous sinuses. There is no evidence of cavernous sinu s thrombosis. There is no pathologic enhancement. IMPRESSION: Normal MR scan of the brain. No evidence of cavernous sinus thrombosis.
--- NOTE | 2021-04-08 21:21 | MR ---
EXAMINATION TYPE: MR MRA/MRV head wo con DATE OF EXAM: 04/08/2021 COMPARISON: None HISTORY: Intractable headache r/o nirali sin thrombo NPH. MR venographic images were obtained of the brain without contrast. MR angiographic images were obtain ed of the brain without contrast. There is arterial flow in the anterior middle and posterior cerebral arteries. There is arterial flow in the vertebrobasilar artery system. There is arterial flow in both distal internal carotid arterie s. I see no mass effect. There is no evidence of intracranial aneurysm or neovascularity. There is no evidence of arterial stenosis. There is normal venous flow pattern demonstrated in the superior sagittal sinus and the transverse si nus. Sigmoid sinuses appear normal. The cerebral vein appears normal. There is no evidence of sinus v ein thrombosis. IMPRESSION: Normal MR venogram of the brain. Normal MR angiogram of the brain.
[2021-04-09] MEDS: KETOROLAC 15 MG/ML 1 ML VIAL IVP PRN ×2 (01:30→08:48)
[2021-04-09] MEDS: metroNIDAZOLE-NS PMX 500 MG in SALINE 1 100ML.BAG IVPB SCH ×2 (04:08→11:59)
[2021-04-09] MEDS: SODIUM CHLORIDE 0.9% 1,000 ML IV SCH ×2 (04:51→09:58)
[2021-04-09] MEDS: ONDANSETRON 4 MG/2 ML VIAL IVP PRN (05:55)
[2021-04-09] MEDS: SUMAtriptan succinate 50 MG TAB PO PRN (06:15)
[2021-04-09] MEDS: buPROPion XL 150 MG TAB.ER.24H PO SCH (08:50)
[2021-04-09] MEDS: ARIPiprazole 5 MG TAB PO SCH (08:50)
[2021-04-09] MEDS: CYCLOBENZAPRINE 10 MG TAB PO SCH (08:50)
[2021-04-09] MEDS: DULoxetine HCL 60 MG CAPSULE.DR PO SCH (08:51)
[2021-04-09] MEDS: TOPIRAMATE 25 MG TAB PO SCH (08:51)
[2021-04-09] MEDS: SUCRALFATE 1 GM TAB PO SCH ×2 (08:51→12:00)
[2021-04-09] MEDS: PANTOPRAZOLE 40 MG/10 ML VIAL IV SCH (08:52)
[2021-04-09] MEDS: ADVAIR INHALATION SCH (09:12)
[2021-04-09 11:52] VITALS: BP 101/68; PULSE 81; TEMP 98.4
--- NOTE | 2021-04-09 14:57 | P.DS ---
Providers Date of admission: 04/06/21 07:07 Attending physician: Patricia Gonzalez Consults: 04/06/21 07:02 Consult Physician Routine Consulting Provider: Zainab Kinney Consult Reason/Comments: GI Bleeding Do you want consulting provider notified?: Yes 04/08/21 11:33 Consult to Anesthesia Routine Consulting Provider: Anesthesia,Services Consult Reason/Comments: dr hawthorne for ocipitalneuralgia intractable headache 04/08/21 11:34 Consult Physician Routine Consulting Provider: Miguel Conn Consult Reason/Comments: intractable headache, cant r/o nph Do you want consulting provider notified?: Yes Primary care physician: Patricia Gonzalez [facility] Course: This is a 39-year-old female patient of my clinic patient with past medical history of GI bleed in 2008, July 2020 was admitted for GI bleed secondary to 2 nonbleeding antral ulcers requiring transfusion 2 units packed RBCs, tobacco use, alcohol abuse, recurrent depression, generalized anxiety disorder. Patient was diagnosed with COVID-19 on October 30 2020,. She had lengthy admission, for which she required hospitalization until November 29 2020. She had complications from COVID-19 include ventilation intubation for respiratory failure, after she failed BiPAP treatments, she received Tocilizumab infusion, Covid pneumonia severe pulmonary interstitial and airspace edema, she required chest tube placements bilaterally, she had 3 spontaneous pneumothoraces, negative for pulmonary emboli, she did not require pressors, at that time, right chest tube was placed on November 06, it November 08, and November 25 2020, left chest tube, November 07 that she was seen by Dr. Conn during the last admission, and Dr. Tapia cardiothoracic her chest tube was removed on November 27 2020. The patient went home on room air, no oxygen requirements needed home therapies provided She has chronic anemia of chronic disease, history of bleeding ulcers no alcohol abuse, primary immune deficiency state, recurrent depression general since IT disorder, mild intermittent bronchial asthma, and migraines tobacco use, sepsis with MSSA bacteremia with MSSA pneumonia, moderate protein calorie malnutrition, GERD, She presents to emergency room, secondary to bright red blood living per rectum, with blood clots, that started yesterday, hopeless 17, for which she has frequent bowel movements, all with blood clots, and liquid brown stool. She had previous colonoscopies in the past, seen by Dr. Burris for this, also with EGD. Patient has epigastric pain, denies any recent alcohol use, denies any NSAID use, as she does have history of GI bleed in the past which she is maintained on Protonix daily. Last EGD, July 2020, done by Dr. Kinney which probably is negative, has active gastritis, with mucosal reactive changes, duodenal biopsy, reactive hyperplastic changes, current hemoglobin on admission 818, 8.4, from a previous hemoglobin of 8.0 in November 2015, Hemoccult stools were positive, INR of 1.0, potassium 4.0, normal creatinine and normal liver function tests C. diff test negative, consult with Dr. Burris 04/07 patient is complaining of significant headache, sinuses mainly, TMJ problems, has no nausea, however the abdominal pain has improved, patient did not sleep well last night, has cyclobenzaprine which she takes when necessary, we'll going to schedule these, 10 mg echodense been at at bedtime, Imitrex when necessary subcu, Topamax is on board, patient has no more diarrhea, she required one unit of packed red blood cells overnight, Ironinfusion began today for extremely low iron saturation at 6%, 2 days for iron infusion to be given. Diarrhea has resolved since last night. 04/08: Patient still has significant headache, CT sinuses are negative, for infection she has frontal headache, periorbital pain, occipital headache, she normally takes 6-8 Excedrin day prior to this along the Topamax, however headache does not go away, still lingers, we'll going to consult neurology to rule out normal pressure hydrocephalus, get MRI of the brain, we've looked at her CT unenhanced June 2020 which is unremarkable, the headache is significant that she kept coming back with GI bleed dilated to much aspirin use. Consult with Dr. Conn and dr Og for occipital nerve block treatments, rate CRP most likely would not help at this time secondary to her diarrhea 04/09 and patient examined at bedside. She still had persistent pain involving the right occipital area but has improved since patient got the nerve block by anesthesia group. Patient underwent EGD that suggestive of antral ulcer initiated on Protonix 40 mg by mouth daily. MRI and MRA was negative for any acute abnormality. Patient denies any nausea, vomiting, abdominal pain, diarrhea or constipation. Patient denies any vision change, dizziness, numbness, tingling, lower extremity weakness. Patient to follow with neurology and gastroenterology as outpatient Discharge diagnoses 1. Upper GI bleed, 2 personal history of Covid, Covid 19 pneumonia diagnosed with,prior MSSA pneumonia, complicated by right pneumothorax,Right sided pneumothorax requiring chest tube 11/06, 11/08, 11/25 3. History of mild intermittent bronchial asthma. 4. Recurrent depression and generalized anxiety disorder: 5. Primary immunodeficiency, stable. 6. Chronic anemia of chronic disease most likely due to history of bleeding ulcers and alcohol abuse. 7. Tobacco use and dependence including vaping. 8. History of Daily alcohol use/abuse. Stable. 9. Intractable multifactorial headaches with Migraine headaches. 10. Acute anemia s s with blood loss. 11. Gastroesophageal reflux disease with history of bleeding ulcers. Disposition home with self-care Patient Condition at Discharge: Fair Plan - Discharge Summary Discharge Rx Participant: No New Discharge Prescriptions: New Cyclobenzaprine [Flexeril] 10 mg PO DAILY #20 tab Pantoprazole Sodium [Protonix] 40 mg PO AC-BRKFST 30 Days tab Ondansetron Odt [Zofran Odt] 8 mg PO Q8HR #30 tab Continue DULoxetine HCL [Cymbalta] 60 mg PO DAILY Cetirizine HCl [Zyrtec] 10 mg PO DAILY PRN PRN Reason: Allergy Symptoms buPROPion XL [Wellbutrin XL] 150 mg PO DAILY Sucralfate [Carafate] 1 gm PO ACHS #60 tab Albuterol Sulfate [Proair Hfa] 2 puff INHALATION RT-Q4H PRN PRN Reason: Shortness Of Breath Cyclobenzaprine [Flexeril] 5 mg PO TID PRN PRN Reason: Muscle Spasm busPIRone HCl [Buspar] 10 mg PO BID PRN PRN Reason: Anxiety ARIPiprazole [Abilify] 7.5 mg PO DAILY Amitriptyline HCl [Elavil] 10 mg PO HS #30 tab diphenhydrAMINE HCL [Benadryl] 25 mg PO Q4H PRN PRN Reason: Allergy Symptoms Fluticasone/Salmeterol [Advair 250-50 Diskus] 1 puff INHALATION RT-BID Ondansetron Odt [Zofran ODT] 4 mg PO Q8H PRN PRN Reason: Nausea Rizatriptan Benzoate [Rizatriptan] 10 mg PO DAILY PRN PRN Reason: Migraine Headache Sodium Chloride [Colstrip] 1 spray EA NOSTRIL QID PRN PRN Reason: Congestion [id number] [Excedrin] 1 tab PO QID PRN PRN Reason: Pain Topiramate [Topiramate ER] 50 mg PO DAILY Propranolol HCl [Propranolol HCl ER] 60 mg PO DAILY Lung Cleanse 2 cap PO DAILY PRN PRN Reason: Congestion Pantoprazole Sodium [Protonix] 40 mg PO DAILY #30 tab Discharge Medication List Cetirizine HCl [Zyrtec] 10 mg PO DAILY PRN 02/26/20 [History] DULoxetine HCL [Cymbalta] 60 mg PO DAILY 02/26/20 [History] buPROPion XL [Wellbutrin XL] 150 mg PO DAILY 08/14/20 [History] Sucralfate [Carafate] 1 gm PO ACHS #60 tab 08/16/20 [Rx] ARIPiprazole [Abilify] 7.5 mg PO DAILY 11/04/20 [History] Albuterol Sulfate [Proair Hfa] 2 puff INHALATION RT-Q4H PRN 11/04/20 [History] Cyclobenzaprine [Flexeril] 5 mg PO TID PRN 11/04/20 [History] busPIRone HCl [Buspar] 10 mg PO BID PRN 11/04/20 [History] Amitriptyline HCl [Elavil] 10 mg PO HS #30 tab 11/29/20 [Rx] Ondansetron Odt [Zofran ODT] 4 mg PO Q8H PRN 12/03/20 [History] Rizatriptan Benzoate [Rizatriptan] 10 mg PO DAILY PRN 12/14/20 [History] [id number] [Excedrin] 1 tab PO QID PRN 04/06/21 [History] Fluticasone/Salmeterol [Advair 250-50 Diskus] 1 puff INHALATION RT-BID 04/06/21 [History] Lung Cleanse 2 cap PO DAILY PRN 04/06/21 [History] Propranolol HCl [Propranolol HCl ER] 60 mg PO DAILY 04/06/21 [History] Sodium Chloride [Colstrip] 1 spray EA NOSTRIL QID PRN 04/06/21 [History] Topiramate [Topiramate ER] 50 mg PO DAILY 04/06/21 [History] diphenhydrAMINE HCL [Benadryl] 25 mg PO Q4H PRN 04/06/21 [History] Cyclobenzaprine [Flexeril] 10 mg PO DAILY #20 tab 04/09/21 [Rx] Ondansetron Odt [Zofran Odt] 8 mg PO Q8HR #30 tab 04/09/21 [Rx] Pantoprazole Sodium [Protonix] 40 mg PO AC-BRKFST 30 Days tab 04/09/21 [Rx] Pantoprazole Sodium [Protonix] 40 mg PO DAILY #30 tab 04/09/21 [Rx] Follow up Appointment(s)/Referral(s): Patricia Gonzalez MD [Primary Care Provider] - 1-2 days (patient to call office on sunday for follow up appt) Alma Rosa Beavers MD [REFERRING] - 1 Week (patient to call office on sunday for follow up appt) Patient Instructions/Handouts: Scopolamine (Absorbed through the skin), Cyclobenzaprine (By mouth), Pantoprazole (By mouth), Gastrointestinal Bleeding (ED), Acute Headache (ED) Discharge/Stand Alone Forms: Anes Pain/[facility] Instructions Discharge Disposition: HOME SELF-CARE
== END 2021-04-09 14:55 | disposition home or self-care (01) | DRG 378 ==
LOC: EC 01:21 → 5NMEDONC 07:07
PROVIDERS: ADMIT Family Medicine; ATTEND Family Medicine
PROC: 0DB98ZX Excision of Duodenum, Via Natural or Artificial Opening Endoscopic, Diagnostic (ICD-10-PCS; 2021-04-08)
PROC: 3E0T3BZ Introduction of Anesthetic Agent into Peripheral Nerves and Plexi, Percutaneous Approach (ICD-10-PCS; principal; 2021-04-08 10:40)
DX: K25.4 Chronic or unspecified gastric ulcer with hemorrhage (principal); D62 Acute posthemorrhagic anemia; D84.9 Immunodeficiency, unspecified; E44.0 Moderate protein-calorie malnutrition; G89.29 Other chronic pain; D50.9 Iron deficiency anemia, unspecified; D63.8 Anemia in other chronic diseases classified elsewhere; F41.1 Generalized anxiety disorder; F43.10 Post-traumatic stress disorder, unspecified; F90.9 Attention-deficit hyperactivity disorder, unspecified type; G43.909 Migraine, unspecified, not intractable, without status migrainosus; Z87.891 Personal history of nicotine dependence; Z87.01 Personal history of pneumonia (recurrent); Z86.19 Personal history of other infectious and parasitic diseases; Z86.16 Personal history of COVID-19; Z79.899 Other long term (current) drug therapy; M79.7 Fibromyalgia; K44.9 Diaphragmatic hernia without obstruction or gangrene; F10.10 Alcohol abuse, uncomplicated; J30.2 Other seasonal allergic rhinitis; M54.2 Cervicalgia; M54.9 Dorsalgia, unspecified
CPT/HCPCS: 36415; 43239; 64405; 70487; 70544; 70553; 80048; 80053; 82272; 83540; 83550; 83605; 83630; 84484; 84703; 85025; 85027; 85610; 85730; 86850; 86900; 86901; 86920; 87045; 87046; 87324; 88305; 96365; 96375; 99285

== ENCOUNTER 2021-04-29 03:00 | Emergency (ER) | payer OTHER ==
[2021-04-29] MEDS ORDERED: MAG HYDROX/AL HYDROX/SIMETH 30 ML, HYOSCYAMINE ELIXIR 10 ML, LIDOCAINE VISCOUS 2% 10 ML PO STA ×3 (03:30)
[2021-04-29 04:15] LABS: Anisocytosis Slight; Basophils % (A) 1 %; Eosinophils # (A) 0.2 k/uL (0-0.7); Eosinophils % (A) 3 %; HCT 35.1 % (34.0-46.0); Hypochromasia Slight; Lymphocytes # (A) 3.5 k/uL (1.0-4.8); Lymphocytes % (A) 51 %; MCH 28.8 pg (25.0-35.0); MCHC 32.1 g/dL (31.0-37.0); MCV 89.7 fL (80.0-100.0); Mean Platelet Volume 7.4; Monocytes # (A) 0.4 k/uL (0-1.0); Monocytes % (A) 6 %; Neutrophils # (A) 2.5 k/uL (1.3-7.7); Neutrophils % (A) 36 %; Platelet Count 363 k/uL (150-450); RBC 3.91 m/uL (3.80-5.40); RDW 19.7 % (11.5-15.5); WBC 6.8 k/uL (3.8-10.6)
[2021-04-29 04:19] VITALS: RESP 20
[2021-04-29 04:20] LABS: Amorphous Sediment,Urine Rare /hpf; Appearance,Urine Cloudy (Clear); Bacteria,Urine Many /hpf; Bilirubin,Urine Negative (Negative); Blood,Urine Negative (Negative); Color,Urine Yellow; Glucose,Urine (UA) Negative (Negative); Hyaline Casts,Urine 1 /lpf (0-2); Ketones,Urine Negative (Negative); Leukocyte Esterase,Urine Moderate (Negative); Mucus,Urine Many /hpf; Nitrite,Urine Positive (Negative); Protein,Urine Trace (Negative); Specific Gravity,Urine 1.023 (1.001-1.035); Squamous Epithelial Cell,Urine 14 /hpf (0-4); Urobilinogen,Urine <2.0 mg/dL (<2.0); WBC,Urine 11 /hpf (0-5)
[2021-04-29 04:28] LABS: HGB 11.3 gm/dL (11.4-16.0)
[2021-04-29 04:40] LABS: Albumin 4.6 g/dL (3.5-5.0); Calcium 10.3 mg/dL (8.4-10.2); Potassium 3.9 mmol/L (3.5-5.1); Total Bilirubin 0.2 mg/dL (0.2-1.3); Total Protein 7.4 g/dL (6.3-8.2)
[2021-04-29] MEDS ORDERED: NITROFURANTOIN MONOHYD/M-CRYST 100 MG CAP PO STA (05:47)
[2021-04-29] MEDS ORDERED: PEG 3350-NA SULF,BICARB,CL/KCL 4,000 ML BOTTLE PO ONE (05:49)
--- NOTE | 2021-04-29 05:49 | ED ---
GI Bleed HPI - General Chief complaint: GI Bleed Stated complaint: Abd Pain Time Seen by Provider: 04/29/21 03:14 Source: patient Mode of arrival: ambulatory Limitations: no limitations - History of Present Illness Initial comments: This patient is a 40-year-old woman who states she has history of bleeding ulcers. She presents with a recurrence of the same pain she was having with her previous ulcers. She is having some epigastric burning and then some abdominal cramping. There are occasional sharp pains. The patient states that she thought she saw some blood when she wiped after a bowel movement. Patient denies symptoms of anemia, including no lightheadedness, chest pain, dyspnea, palpitations, diaphoresis or syncope. MD complaint: blood on toilet paper -: hour(s) Radiation: none Quality: cramping, burning Consistency: intermittent Improves with: none Worsens with: none Context: history of GI bleed - Related Data Home Medications Medication Instructions Recorded Confirmed DULoxetine HCL [Cymbalta] 60 mg PO DAILY 02/26/20 05/10/21 buPROPion XL [Wellbutrin XL] 150 mg PO DAILY 08/14/20 05/10/21 ARIPiprazole [Abilify] 7.5 mg PO DAILY 11/04/20 05/10/21 Topiramate [Topiramate ER] 50 mg PO BID 04/06/21 05/10/21 Sucralfate [Carafate] 1 gm PO DAILY 05/09/21 05/10/21 Previous Rx's Medication Instructions Recorded Amitriptyline HCl [Elavil] 10 mg PO HS #30 tab 11/29/20 Pantoprazole Sodium [Protonix] 40 mg PO DAILY #30 tab 04/09/21 Allergies Allergy/AdvReac Type Severity Reaction Status Date / Time adhesive Allergy Rash/Hives Verified 05/10/21 12:34 latex Allergy Rash/Hives Verified 05/10/21 12:34 morphine Allergy Unknown Verified 05/10/21 12:36 prochlorperazine Allergy Unknown Verified 05/10/21 12:34 [From Compazine] ciprofloxacin [From Cipro] AdvReac Hallucinati Verified 05/10/21 12:34 ons citalopram [From Celexa] AdvReac Suicidal Verified 05/10/21 12:34 thoughts diazepam [From Valium] AdvReac Hallucinati Verified 05/10/21 12:34 ons/Anxiety fluoxetine [From Prozac] AdvReac Suicidal Verified 05/10/21 12:34 thoughts metoclopramide [From Reglan] AdvReac Hallucinati Verified 05/10/21 12:34 ons/Anxiety paroxetine [From Paxil] AdvReac Suicidal Verified 05/10/21 12:34 thoughts Penicillins AdvReac Nausea & Verified 05/10/21 12:34 Vomiting Review of Systems ROS Statement: Those systems with pertinent positive or pertinent negative responses have been documented in the HPI. ROS Other: All systems not noted in ROS Statement are negative. Constitutional: Denies: fever, chills, weakness Respiratory: Denies: cough, dyspnea Cardiovascular: Denies: chest pain, palpitations, edema Gastrointestinal: Reports: abdominal pain, nausea. Denies: vomiting, diarrhea, constipation Genitourinary: Denies: dysuria, hematuria Musculoskeletal: Denies: back pain Skin: Denies: rash Neurological: Denies: headache, weakness, numbness Past Medical History Past Medical History: Asthma, Fibromyalgia, GERD/Reflux, GI Bleed Additional Past Medical History / Comment(s): covid + pneumonia 10/30/2020 complicated by respiratory failure, intubation, mechanical ventilation, bilateral pneumothoraces, COPD, Other hx: Primary immunodeficiency, antral ulcers, GI bleed, anemia, IBS, migraines, back pain, TMJ, seasonal allergies History of Any Multi-Drug Resistant Organisms: None Reported Past Surgical History: Breast Surgery, Ear Surgery, Uterine Ablation Additional Past Surgical History / Comment(s): EGDs, colonoscopies, bilateral breast augmentation, septoplasty, L ear trauma/reattached. Past Anesthesia/Blood Transfusion Reactions: No Reported Reaction, Motion Sickness Additional Past Anesthesia/Blood Transfusion Reaction / Comment(s): Pt has received blood in past without reaction. Past Psychological History: ADD/ADHD, Anxiety, Bipolar, Depression, PTSD Smoking Status: Former smoker, Vaper Past Alcohol Use History: Abuse Past Drug Use History: None Reported - Past Family History Father Additional Family Medical History / Comment(s): Father at age 51 from accidental drug overdose. Mother Family Medical History: Fibromyalgia Additional Family Medical History / Comment(s): Mother is alive at age 61 with history of primary immunodeficiency. Brother(s) Additional Family Medical History / Comment(s): Patient has one brother with history of alcohol abuse. Patient does not have any sisters. Patient has 2 children with no major medical problems. General Exam Limitations: no limitations General appearance: alert, in no apparent distress Head exam: Present: atraumatic, normocephalic Eye exam: Present: normal appearance. Absent: scleral icterus, conjunctival injection ENT exam: Present: normal oropharynx Neck exam: Present: normal inspection Respiratory exam: Present: normal lung sounds bilaterally. Absent: respiratory distress, wheezes, rales, rhonchi, stridor Cardiovascular Exam: Present: regular rate, normal rhythm, normal heart sounds. Absent: systolic murmur, diastolic murmur, rubs, gallop GI/Abdominal exam: Present: soft. Absent: distended, tenderness, guarding, rebound, rigid, mass, pulsatile mass Extremities exam: Present: normal inspection, normal capillary refill. Absent: pedal edema, calf tenderness Back exam: Present: normal inspection. Absent: CVA tenderness (R), CVA tenderness (L) Neurological exam: Present: alert Skin exam: Present: warm, dry, intact, normal color. Absent: rash Course Vital Signs 04/29/21 04/29/21 04/29/21 03:13 04:16 06:20 Temperature 98.1 F 97.7 F Pulse Rate 96 84 83 Respiratory 16 20 20 Rate Blood Pressure 103/68 106/59 95/59 O2 Sat by Pulse 96 99 100 Oximetry Medical Decision Making - Lab Data Result diagrams: 04/29/21 03:55 04/29/21 03:55 Lab Results 04/29/21 04/29/21 04/29/21 Range/Units 03:55 03:55 03:55 WBC 6.8 (3.8-10.6) k/uL RBC 3.91 (3.80-5.40) m/uL Hgb 11.3 L D (11.4-16.0) gm/dL Hct 35.1 (34.0-46.0) % MCV 89.7 (80.0-100.0) fL MCH 28.8 (25.0-35.0) pg MCHC 32.1 (31.0-37.0) g/dL RDW 19.7 H (11.5-15.5) % Plt Count 363 (150-450) k/uL MPV 7.4 Neutrophils % 36 % Lymphocytes % 51 % Monocytes % 6 % Eosinophils % 3 % Basophils % 1 % Neutrophils # 2.5 (1.3-7.7) k/uL Lymphocytes # 3.5 (1.0-4.8) k/uL Monocytes # 0.4 (0-1.0) k/uL Eosinophils # 0.2 (0-0.7) k/uL Basophils # 0.0 (0-0.2) k/uL Hypochromasia Slight Anisocytosis Slight Sodium 141 (137-145) mmol/L Potassium 3.9 (3.5-5.1) mmol/L Chloride 110 H (98-107) mmol/L Carbon Dioxide 19 L (22-30) mmol/L Anion Gap 12 mmol/L BUN 19 H (7-17) mg/dL Creatinine 0.94 (0.52-1.04) mg/dL Est GFR (CKD-EPI)AfAm 87 (>60 ml/min/1.73 sqM) Est GFR (CKD-EPI)NonAf 75 (>60 ml/min/1.73 sqM) Glucose 86 (74-99) mg/dL Calcium 10.3 H (8.4-10.2) mg/dL Total Bilirubin 0.2 (0.2-1.3) mg/dL AST 21 (14-36) U/L ALT 21 (4-34) U/L Alkaline Phosphatase 86 (38-126) U/L Total Protein 7.4 (6.3-8.2) g/dL Albumin 4.6 (3.5-5.0) g/dL Amylase 63 (30-110) U/L Lipase 61 (23-300) U/L Urine Color Urine Appearance (Clear) Urine pH (5.0-8.0) Ur Specific [place] (1.001-1.035) Urine Protein (Negative) Urine Glucose (UA) (Negative) Urine Ketones (Negative) Urine Blood (Negative) Urine Nitrite (Negative) Urine Bilirubin (Negative) Urine Urobilinogen (<2.0) mg/dL Ur Leukocyte Esterase (Negative) Urine WBC (0-5) /hpf Ur Squamous Epith Cells (0-4) /hpf Amorphous Sediment (None) /hpf Urine Bacteria (None) /hpf Hyaline Casts (0-2) /lpf Urine Mucus (None) /hpf Urine HCG, Qual Not Detected (Not Detectd) 04/29/21 Range/Units 03:55 WBC (3.8-10.6) k/uL RBC (3.80-5.40) m/uL Hgb (11.4-16.0) gm/dL Hct (34.0-46.0) % MCV (80.0-100.0) fL MCH (25.0-35.0) pg MCHC (31.0-37.0) g/dL RDW (11.5-15.5) % Plt Count (150-450) k/uL MPV Neutrophils % % Lymphocytes % % Monocytes % % Eosinophils % % Basophils % % Neutrophils # (1.3-7.7) k/uL Lymphocytes # (1.0-4.8) k/uL Monocytes # (0-1.0) k/uL Eosinophils # (0-0.7) k/uL Basophils # (0-0.2) k/uL Hypochromasia Anisocytosis Sodium (137-145) mmol/L Potassium (3.5-5.1) mmol/L Chloride (98-107) mmol/L Carbon Dioxide (22-30) mmol/L Anion Gap mmol/L BUN (7-17) mg/dL Creatinine (0.52-1.04) mg/dL Est GFR (CKD-EPI)AfAm (>60 ml/min/1.73 sqM) Est GFR (CKD-EPI)NonAf (>60 ml/min/1.73 sqM) Glucose (74-99) mg/dL Calcium (8.4-10.2) mg/dL Total Bilirubin (0.2-1.3) mg/dL AST (14-36) U/L ALT (4-34) U/L Alkaline Phosphatase (38-126) U/L Total Protein (6.3-8.2) g/dL Albumin (3.5-5.0) g/dL Amylase (30-110) U/L Lipase (23-300) U/L Urine Color Yellow Urine Appearance Cloudy H (Clear) Urine pH 6.0 (5.0-8.0) Ur Specific [place] 1.023 (1.001-1.035) Urine Protein Trace H (Negative) Urine Glucose (UA) Negative (Negative) Urine Ketones Negative (Negative) Urine Blood Negative (Negative) Urine Nitrite Positive H (Negative) Urine Bilirubin Negative (Negative) Urine Urobilinogen <2.0 (<2.0) mg/dL Ur Leukocyte Esterase Moderate H (Negative) Urine WBC 11 H (0-5) /hpf Ur Squamous Epith Cells 14 H (0-4) /hpf Amorphous Sediment Rare H (None) /hpf Urine Bacteria Many H (None) /hpf Hyaline Casts 1 (0-2) /lpf Urine Mucus Many H (None) /hpf Urine HCG, Qual (Not Detectd) Disposition Clinical Impression: Urinary tract infection, GI bleed Disposition: HOME SELF-CARE Condition: Good Instructions (If sedation given, give patient instructions): Gastrointestinal Bleeding (ED), Urinary Tract Infection in Women (ED) Is patient prescribed a controlled substance at d/c from ED?: No Referrals: Patricia Gonzalez MD [Primary Care Provider] - 1-2 days Zainab Kinney MD [STAFF PHYSICIAN] - 1-2 days
[2021-04-29 06:24] VITALS: BP 95/59; PULSE 83; TEMP 97.7
== END 2021-04-29 06:28 | disposition home or self-care (01) ==
LOC: EC 03:00
DX: N39.0 Urinary tract infection, site not specified (principal); K92.2 Gastrointestinal hemorrhage, unspecified; J44.9 Chronic obstructive pulmonary disease, unspecified; Z79.899 Other long term (current) drug therapy; Z86.16 Personal history of COVID-19; Z87.11 Personal history of peptic ulcer disease; Z87.891 Personal history of nicotine dependence; Z88.0 Allergy status to penicillin; Z88.1 Allergy status to other antibiotic agents; Z88.8 Allergy status to other drugs, medicaments and biological substances; Z91.040 Latex allergy status; Z91.09 Other allergy status, other than to drugs and biological substances; Z88.5 Allergy status to narcotic agent
CPT/HCPCS: 36415; 80053; 81001; 81025; 82150; 83690; 85025; 99284

== ENCOUNTER 2021-05-10 12:24 | Day surgery (SDC) | payer OTHER ==
[2021-05-09 10:04] VITALS: BMI 24.7
[2021-05-10] MEDS: LACTATED RINGERS 1,000 ML IV SCH ×2 (12:50→12:53)
[2021-05-10] MEDS ORDERED: LIDOCAINE 1% (10MG/ML) FOR IV START INTRADERMA ONE (12:50)
[2021-05-10] MEDS ORDERED: ROPIVACAINE 5MG/ML 20ML VIAL ONE (12:51)
[2021-05-10] MEDS ORDERED: MIDAZOLAM 2 MG/2 ML VIAL ONE (12:51)
[2021-05-10] MEDS ORDERED: TRIAMCINOLONE ACETONIDE 40 MG/ML 1 ML VIAL ONE (12:51)
[2021-05-10] MEDS ORDERED: LIDOCAINE 1% INJ 10MG/ML (20 ML MDV) ONE (12:51)
[2021-05-10 12:57] VITALS: RESP 16; TEMP 97.4
--- NOTE | 2021-05-10 13:02 | P.PCN ---
Date of Procedure: 05/10/21 Surgeon: Isabella Roberts Pathology: none sent Condition: stable Disposition: PACU Description of Procedure: Pre-operative diagnosis: 1- occipital neuralgea Post Operative Diagnosis 1- occipital neuralgea Procedure: 1- B/L greater and lesser occipital nerve block ANESTHESIA: Local with Lidocaine 1 % and moderate conscious sedation with 2 mg of versed EBL: Minimal PROCEDURE INDICATION: The patient with neck pain and headache secondary to occipital neuralgea unresponsive to conservative treatments. PROCEDURE DESCRIPTION / TECHNIQUE: The patient was seen and identified in the preoperative area. Risks, benefits, complications, and alternatives were discussed with the patient, the patient agreed to proceed with the procedure and signed the consent. IV was started. Vital signs remained stable throughout the procedure. Patient was taken to the OR and time out was completed. The patient was placed in the prone position on the procedure table. . The cervical area and right occiptial area were prepped with chloraprep. Critical pause was taken. Vital signs were closely monitored during the procedure. The the occipital exuberance and superior nuchal line were identified on the right side of the occiput. The greater occipital nerve location was estimated to be medial to the occipital artery . I Localized the skin with lidocaine 1% then I used 25-gauge 1-1/2 inch needle to go through the skin and infiltrate 2.5 MLS of a solution made up of 4.5 MLS Ropivacaine 0.5% +10 mg of Kenalog. The procedure was repeated in the same manner on the left side. Patient tolerated procedure well.
[2021-05-10] MEDS ORDERED: IV FLUID CONTINUATION 1,000 ML IV ONE (13:06)
[2021-05-10 13:23] VITALS: BP 90/57; PULSE 72
[2021-05-10] MEDS ORDERED: ACETAMINOPHEN TAB 325 MG TAB PO ONE (13:25)
[2021-05-10] MEDS ORDERED: ACETAMINOPHEN TAB 325 MG TAB ONE (13:25)
== END 2021-05-10 14:03 | disposition home or self-care (01) ==
LOC: ORPAIN 12:24
PROVIDERS: ATTEND Anesthesiology
DX: M54.81 Occipital neuralgia (principal)
CPT/HCPCS: 64405; 81025; J2250; J3301; J2001 ×2; J2795

== ENCOUNTER 2021-05-16 08:06 | Emergency (ER) | payer OTHER ==
[2021-05-16 08:17] VITALS: RESP 18; TEMP 97.9
[2021-05-16] MEDS ORDERED: diphenhydrAMINE 50 MG/ML 1 ML VIAL IVP STA (08:32)
[2021-05-16] MEDS ORDERED: HYDROmorphone 0.5 MG/0.5 ML SYRINGE IVP STA ×2 (08:32→09:33)
[2021-05-16] MEDS ORDERED: SODIUM CHLORIDE 0.9% 500 ML 500 ML IV ONE (08:34)
--- NOTE | 2021-05-16 08:40 | ED ---
General Adult HPI - General Chief complaint: Headache Stated complaint: headache Time Seen by Provider: 05/16/21 08:24 Source: patient Mode of arrival: ambulatory Limitations: no limitations - History of Present Illness Initial comments: Patient is a 40-year-old female presenting today for migraine has been present since Sunday and sensitivity to light. Patient expresses worsening migraines after neck injections per pain clinic Patient reports some nausea no vomiting daily with migraines. Patient denies any neck stiffness or fever, no deficits present. Patient has chronic migraine she has been on multiple medications. Patient states that after her injections for occipital nausea her headache has worsened it. Patient does see a current neurologist. Patient denies any focal weakness no chest pain or shortness of breath. - Related Data Home Medications Medication Instructions Recorded Confirmed DULoxetine HCL [Cymbalta] 60 mg PO DAILY 02/26/20 05/16/21 buPROPion XL [Wellbutrin XL] 150 mg PO DAILY 08/14/20 05/16/21 ARIPiprazole [Abilify] 7.5 mg PO DAILY 11/04/20 05/16/21 Topiramate [Topiramate ER] 50 mg PO BID 04/06/21 05/16/21 Sucralfate [Carafate] 1 gm PO ACHS 05/09/21 05/16/21 Previous Rx's Medication Instructions Recorded Amitriptyline HCl [Elavil] 10 mg PO HS #30 tab 11/29/20 Pantoprazole Sodium [Protonix] 40 mg PO DAILY #30 tab 04/09/21 Allergies Allergy/AdvReac Type Severity Reaction Status Date / Time adhesive Allergy Rash/Hives Verified 05/16/21 09:19 latex Allergy Rash/Hives Verified 05/16/21 09:19 morphine Allergy Unknown Verified 05/16/21 09:19 prochlorperazine Allergy Unknown Verified 05/16/21 09:19 [From Compazine] ciprofloxacin [From Cipro] AdvReac Hallucinati Verified 05/16/21 09:19 ons citalopram [From Celexa] AdvReac Suicidal Verified 05/16/21 09:19 thoughts diazepam [From Valium] AdvReac Hallucinati Verified 05/16/21 09:19 ons/Anxiety fluoxetine [From Prozac] AdvReac Suicidal Verified 05/16/21 09:19 thoughts metoclopramide [From Reglan] AdvReac Hallucinati Verified 05/16/21 09:19 ons/Anxiety paroxetine [From Paxil] AdvReac Suicidal Verified 05/16/21 09:19 thoughts Penicillins AdvReac Nausea & Verified 05/16/21 09:19 Vomiting Review of Systems ROS Statement: Those systems with pertinent positive or pertinent negative responses have been documented in the HPI. ROS Other: All systems not noted in ROS Statement are negative. Past Medical History Past Medical History: Asthma, Fibromyalgia, GERD/Reflux, GI Bleed Additional Past Medical History / Comment(s): covid + pneumonia 10/30/2020 complicated by respiratory failure, intubation, mechanical ventilation, bilate ral pneumothoraces, COPD, Other hx: Primary immunodeficiency, antral ulcers, GI bleed, anemia, IBS, migraines, back pain, TMJ, seasonal allergies History of Any Multi-Drug Resistant Organisms: None Reported Past Surgical History: Breast Surgery, Ear Surgery, Uterine Ablation Additional Past Surgical History / Comment(s): EGDs, colonoscopies, bilateral breast augmentation, septoplasty, L ear trauma/reattached. Past Anesthesia/Blood Transfusion Reactions: No Reported Reaction, Motion Sickness Additional Past Anesthesia/Blood Transfusion Reaction / Comment(s): Pt has received blood in past without reaction. Past Psychological History: ADD/ADHD, Anxiety, Bipolar, Depression, PTSD Smoking Status: Current every day smoker Past Alcohol Use History: Occasional Past Drug Use History: Marijuana - Past Family History Father Additional Family Medical History / Comment(s): Father at age 51 from accidental drug overdose. Mother Family Medical History: Fibromyalgia Additional Family Medical History / Comment(s): Mother is alive at age 61 with history of primary immunodeficiency. Brother(s) Additional Family Medical History / Comment(s): Patient has one brother with history of alcohol abuse. Patient does not have any sisters. Patient has 2 children with no major medical problems. General Exam Limitations: no limitations General appearance: alert, in no apparent distress, lethargic Head exam: Present: atraumatic, normocephalic, normal inspection Eye exam: Present: normal appearance, PERRL, EOMI. Absent: scleral icterus, conjunctival injection, periorbital swelling ENT exam: Present: normal exam, normal oropharynx, mucous membranes moist Neck exam: Present: normal inspection, full ROM. Absent: tenderness, meningismus, lymphadenopathy Respiratory exam: Present: normal lung sounds bilaterally. Absent: respiratory distress, wheezes, rales, rhonchi, stridor Cardiovascular Exam: Present: regular rate, normal rhythm, normal heart sounds. Absent: systolic murmur, diastolic murmur, rubs, gallop, clicks GI/Abdominal exam: Present: soft, normal bowel sounds. Absent: distended, tenderness, guarding, rebound, rigid Extremities exam: Present: normal inspection, full ROM, normal capillary refill. Absent: tenderness, pedal edema, joint swelling, calf tenderness Back exam: Present: normal inspection, full ROM Neurological exam: Present: alert, oriented X3, CN II-XII intact, reflexes normal, other (Finger to nose intact). Absent: motor sensory deficit Psychiatric exam: Present: normal affect, normal mood Skin exam: Present: warm, dry, intact, normal color. Absent: rash Course Vital Signs 05/16/21 08:12 Temperature 97.9 F Pulse Rate 81 Respiratory 18 Rate Blood Pressure 97/62 O2 Sat by Pulse 98 Oximetry Medical Decision Making - Medical Decision Making 40-year-old presented for migraine headaches. She has chronic headaches in nature. Patient worsening symptoms that the injection she was given migraine cocktail in the emergency department and feels greatly improved she has no neurological deficits will be discharged stable condition with close follow-up. Disposition Clinical Impression: Migraine headache Disposition: HOME SELF-CARE Condition: Stable Instructions (If sedation given, give patient instructions): Acute Headache (ED) Additional Instructions: Please return to the Emergency Department if symptoms worsen or any other concerns. Is patient prescribed a controlled substance at d/c from ED?: No Referrals: Patricia Gonzalez MD [Primary Care Provider] - 1-2 days Time of Disposition: 09:34
[2021-05-16 10:18] VITALS: BP 95/69; PULSE 67
== END 2021-05-16 10:18 | disposition home or self-care (01) ==
LOC: EC 08:06
DX: G43.909 Migraine, unspecified, not intractable, without status migrainosus (principal); K21.9 Gastro-esophageal reflux disease without esophagitis; J44.9 Chronic obstructive pulmonary disease, unspecified; F17.200 Nicotine dependence, unspecified, uncomplicated; Z91.09 Other allergy status, other than to drugs and biological substances; Z91.040 Latex allergy status; Z88.5 Allergy status to narcotic agent; Z88.8 Allergy status to other drugs, medicaments and biological substances; Z88.1 Allergy status to other antibiotic agents; Z88.0 Allergy status to penicillin; Z86.16 Personal history of COVID-19; Z79.899 Other long term (current) drug therapy
CPT/HCPCS: 99283; 96374; 96375; 96376; J1200; J1170; J1790

== ENCOUNTER 2021-05-18 19:21 | Emergency (ER) | payer OTHER ==
[2021-05-18 19:30] VITALS: TEMP 98
[2021-05-18] MEDS ORDERED: ONDANSETRON 4 MG/2 ML VIAL IVP STA (20:36)
[2021-05-18] MEDS ORDERED: diphenhydrAMINE 50 MG/ML 1 ML VIAL IVP STA (20:36)
[2021-05-18] MEDS ORDERED: HYDROmorphone 0.5 MG/0.5 ML SYRINGE IVP STA ×2 (20:36→22:06)
[2021-05-18] MEDS ORDERED: SODIUM CHLORIDE 0.9% 1,000 ML IV STA (20:36)
[2021-05-18] MEDS ORDERED: KETOROLAC 15 MG/ML 1 ML VIAL IVP STA (20:36)
[2021-05-18 21:36] VITALS: PULSE 86; RESP 18
--- NOTE | 2021-05-18 21:37 | ED ---
Headache HPI - General Chief Complaint: Headache Stated Complaint: Headache,Vomiting blood Time Seen by Provider: 05/18/21 20:20 Source: patient, RN notes reviewed Mode of arrival: ambulatory Limitations: no limitations - History of Present Illness Initial Comments: 40-year-old well-appearing female patient presents to the emergency room with migraine headache. She states that she was here last night for the same. She was given medication and went home. She states the pain came back again today. She states that the pain is facial and the top of her head. She said she recently underwent a occipital nerve block which has worked in the past however this time it made her headaches worse. She states that she's been taking Motrin and upsetting her stomach and she vomited today multiple times MD Complaint: headache -: days(s) (2) Onset Description: gradual Location: diffuse, facial Severity scale (1-10): 10 Quality: aching, similar to previous headaches Consistency: constant Improves With: nothing - Related Data Home Medications Medication Instructions Recorded Confirmed DULoxetine HCL [Cymbalta] 60 mg PO DAILY 02/26/20 05/16/21 buPROPion XL [Wellbutrin XL] 150 mg PO DAILY 08/14/20 05/16/21 ARIPiprazole [Abilify] 7.5 mg PO DAILY 11/04/20 05/16/21 Topiramate [Topiramate ER] 50 mg PO BID 04/06/21 05/16/21 Sucralfate [Carafate] 1 gm PO ACHS 05/09/21 05/16/21 Previous Rx's Medication Instructions Recorded Amitriptyline HCl [Elavil] 10 mg PO HS #30 tab 11/29/20 Pantoprazole Sodium [Protonix] 40 mg PO DAILY #30 tab 04/09/21 Allergies Allergy/AdvReac Type Severity Reaction Status Date / Time adhesive Allergy Rash/Hives Verified 05/18/21 19:28 latex Allergy Rash/Hives Verified 05/18/21 19:28 morphine Allergy Unknown Verified 05/18/21 19:28 prochlorperazine Allergy Unknown Verified 05/18/21 19:28 [From Compazine] ciprofloxacin [From Cipro] AdvReac Hallucinati Verified 05/18/21 19:28 ons citalopram [From Celexa] AdvReac Suicidal Verified 05/18/21 19:28 thoughts diazepam [From Valium] AdvReac Hallucinati Verified 05/18/21 19:28 ons/Anxiety fluoxetine [From Prozac] AdvReac Suicidal Verified 05/18/21 19:28 thoughts metoclopramide [From Reglan] AdvReac Hallucinati Verified 05/18/21 19:28 ons/Anxiety paroxetine [From Paxil] AdvReac Suicidal Verified 05/18/21 19:28 thoughts Penicillins AdvReac Nausea & Verified 05/18/21 19:28 Vomiting Review of Systems ROS Statement: Those systems with pertinent positive or pertinent negative responses have been documented in the HPI. ROS Other: All systems not noted in ROS Statement are negative. Past Medical History Past Medical History: Asthma, Fibromyalgia, GERD/Reflux, GI Bleed Additional Past Medical History / Comment(s): covid + pneumonia 10/30/2020 complicated by respiratory failure, intubation, mechanical ventilation, bilateral pneumothoraces, COPD, Other hx: Primary immunodeficiency, antral ulcers, GI bleed, anemia, IBS, migraines, back pain, TMJ, seasonal allergies History of Any Multi-Drug Resistant Organisms: None Reported Past Surgical History: Breast Surgery, Ear Surgery, Uterine Ablation Additional Past Surgical History / Comment(s): EGDs, colonoscopies, bilateral breast augmentation, septoplasty, L ear trauma/reattached. Past Anesthesia/Blood Transfusion Reactions: No Reported Reaction, Motion Sickness Additional Past Anesthesia/Blood Transfusion Reaction / Comment(s): Pt has received blood in past without reaction. Past Psychological History: ADD/ADHD, Anxiety, Bipolar, Depression, PTSD Smoking Status: Current every day smoker Past Alcohol Use History: Occasional Past Drug Use History: Marijuana - Past Family History Father Additional Family Medical History / Comment(s): Father at age 51 from accidental drug overdose. Mother Family Medical History: Fibromyalgia Additional Family Medical History / Comment(s): Mother is alive at age 61 with history of primary immunodeficiency. Brother(s) Additional Family Medical History / Comment(s): Patient has one brother with history of alcohol abuse. Patient does not have any sisters. Patient has 2 children with no major medical problems. General Exam Limitations: no limitations General appearance: alert, in no apparent distress Head exam: Present: atraumatic, normocephalic, normal inspection Eye exam: Present: normal appearance, PERRL, EOMI. Absent: scleral icterus, conjunctival injection, periorbital swelling ENT exam: Present: normal exam, normal oropharynx, mucous membranes moist Neck exam: Present: normal inspection, full ROM. Absent: tenderness, meningismus, lymphadenopathy Respiratory exam: Present: normal lung sounds bilaterally. Absent: respiratory distress, wheezes, rales, rhonchi, stridor Cardiovascular Exam: Present: regular rate, normal rhythm, normal heart sounds. Absent: systolic murmur, diastolic murmur, rubs, gallop, clicks GI/Abdominal exam: Present: soft, normal bowel sounds. Absent: distended, tenderness, guarding, rebound, rigid Back exam: Present: normal inspection, full ROM. Absent: tenderness, CVA tenderness (R), CVA tenderness (L), rash noted Neurological exam: Present: alert, oriented X3, CN II-XII intact Expanded Patient oriented to: Present: person, place, time Speech: Present: fluid speech Cranial nerves: EOM's Intact: Normal, Gag Reflex: Normal, Tongue Deviation: Normal Motor strength exam: RUE: 5, LUE: 5, RLE: 5, LLE: 5 Eye Response: (4) open spontaneously Motor Response: (6) obeys commands Verbal Response: (5) oriented [place] Total: 15 Psychiatric exam: Present: normal affect, normal mood Skin exam: Present: warm, dry, intact, normal color. Absent: rash Course Vital Signs 05/18/21 05/18/21 05/18/21 19:28 21:15 22:16 Temperature 98.0 F Pulse Rate 98 86 86 Respiratory 20 18 18 Rate Blood Pressure 101/61 110/77 101/57 O2 Sat by Pulse 98 97 97 Oximetry Medical Decision Making - Medical Decision Making patient presents to the emergency room with migraine headache that she states is similar to previous migraine headaches. She states that she was here yesterday and did get some relief however the pain came back today. She is requesting the same "headache cocktail "that she's had before specifically naming her medications. She was given these medications. she denies any fevers. 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 Disposition Clinical Impression: Headache Disposition: HOME SELF-CARE Condition: Good Instructions (If sedation given, give patient instructions): Acute Headache (ED) Additional Instructions: return to the emergency room with any new or worsening symptoms including fevers, visual changes or worsening pain. Follow-up with your primary care doctor in 1 week. Is patient prescribed a controlled substance at d/c from ED?: No Referrals: Patricia Gonzalez MD [Primary Care Provider] - 1-2 days Time of Disposition: 21:38
[2021-05-18 22:17] VITALS: BP 101/57
== END 2021-05-18 22:37 | disposition home or self-care (01) ==
LOC: EC 19:21
DX: G43.909 Migraine, unspecified, not intractable, without status migrainosus (principal); F17.200 Nicotine dependence, unspecified, uncomplicated; J44.9 Chronic obstructive pulmonary disease, unspecified; M79.7 Fibromyalgia; Z79.899 Other long term (current) drug therapy; Z88.0 Allergy status to penicillin; Z88.1 Allergy status to other antibiotic agents; Z86.16 Personal history of COVID-19; Z88.8 Allergy status to other drugs, medicaments and biological substances; Z91.040 Latex allergy status; Z91.09 Other allergy status, other than to drugs and biological substances; Z88.5 Allergy status to narcotic agent
CPT/HCPCS: 99284; 96374; 96375; 96376; J1200; J2405; J1885; J1170

== ENCOUNTER 2021-06-11 01:01 | Emergency (ER) | payer OTHER ==
[2021-06-11 01:13] VITALS: BP 126/74; PULSE 90; RESP 18; TEMP 98.6
--- NOTE | 2021-06-11 01:46 | ED ---
URI HPI - General Chief Complaint: Upper Respiratory Infection Stated Complaint: Covid test Time Seen by Provider: 06/11/21 01:25 Source: patient, RN notes reviewed Mode of arrival: ambulatory Limitations: no limitations - History of Present Illness Initial Comments: Patient is a 40-year-old female that presents to the emergency Department complaining of possible exposure to Covid. She notes that she came in to get tested and if positive do monoclonal antibodies. She notes that she had Covid back in October was admitted to hospital and intubated for 11 days. She notes that she does not want with that again. She denied having any symptoms at this time. She is otherwise well-appearing. She denied chest pain shortness breath headache nausea vomiting diarrhea constipation fever fatigue chills. - Related Data Home Medications Medication Instructions Recorded Confirmed DULoxetine HCL [Cymbalta] 60 mg PO DAILY 02/26/20 05/16/21 buPROPion XL [Wellbutrin XL] 150 mg PO DAILY 08/14/20 05/16/21 ARIPiprazole [Abilify] 7.5 mg PO DAILY 11/04/20 05/16/21 Topiramate [Topiramate ER] 50 mg PO BID 04/06/21 05/16/21 Sucralfate [Carafate] 1 gm PO ACHS 05/09/21 05/16/21 Previous Rx's Medication Instructions Recorded Amitriptyline HCl [Elavil] 10 mg PO HS #30 tab 11/29/20 Pantoprazole Sodium [Protonix] 40 mg PO DAILY #30 tab 04/09/21 Allergies Allergy/AdvReac Type Severity Reaction Status Date / Time adhesive Allergy Rash/Hives Verified 06/11/21 01:13 latex Allergy Rash/Hives Verified 06/11/21 01:13 morphine Allergy Unknown Verified 06/11/21 01:13 prochlorperazine Allergy Unknown Verified 06/11/21 01:13 [From Compazine] ciprofloxacin [From Cipro] AdvReac Hallucinati Verified 06/11/21 01:13 ons citalopram [From Celexa] AdvReac Suicidal Verified 06/11/21 01:13 thoughts diazepam [From Valium] AdvReac Hallucinati Verified 06/11/21 01:13 ons/Anxiety fluoxetine [From Prozac] AdvReac Suicidal Verified 06/11/21 01:13 thoughts metoclopramide [From Reglan] AdvReac Hallucinati Verified 06/11/21 01:13 ons/Anxiety paroxetine [From Paxil] AdvReac Suicidal Verified 06/11/21 01:13 thoughts Penicillins AdvReac Nausea & Verified 06/11/21 01:13 Vomiting Review of Systems ROS Statement: Those systems with pertinent positive or pertinent negative responses have been documented in the HPI. ROS Other: All systems not noted in ROS Statement are negative. Past Medical History Past Medical History: Asthma, Fibromyalgia, GERD/Reflux, GI Bleed Additional Past Medical History / Comment(s): covid + pneumonia 10/30/2020 complicated by respiratory failure, intubation, mechanical ventilation, bilateral pneumothoraces, COPD, Other hx: Primary immunodeficiency, antral ulcers, GI bleed, anemia, IBS, migraines, back pain, TMJ, seasonal allergies History of Any Multi-Drug Resistant Organisms: None Reported Past Surgical History: Breast Surgery, Ear Surgery, Uterine Ablation Additional Past Surgical History / Comment(s): EGDs, colonoscopies, bilateral [place] augmentation, septoplasty, L ear trauma/reattached. Past Anesthesia/Blood Transfusion Reactions: No Reported Reaction, Motion Sickness Additional Past Anesthesia/Blood Transfusion Reaction / Comment(s): Pt has received blood in past without reaction. Past Psychological History: ADD/ADHD, Anxiety, Bipolar, Depression, PTSD Smoking Status: Current every day smoker Past Alcohol Use History: Occasional Past Drug Use History: Marijuana - Past Family History Father Additional Family Medical History / Comment(s): Father at age 51 from accidental drug overdose. Mother Family Medical History: Fibromyalgia Additional Family Medical History / Comment(s): Mother is alive at age 61 with history of primary immunodeficiency. Brother(s) Additional Family Medical History / Comment(s): Patient has one brother with history of alcohol abuse. Patient does not have any sisters. Patient has 2 children with no major medical problems. General Exam Limitations: no limitations General appearance: alert, in no apparent distress Head exam: Present: atraumatic, normocephalic, normal inspection Eye exam: Present: normal appearance, PERRL, EOMI. Absent: scleral icterus, conjunctival injection, periorbital swelling ENT exam: Present: normal exam, mucous membranes moist Neck exam: Present: normal inspection Respiratory exam: Present: normal lung sounds bilaterally. Absent: respiratory distress, wheezes, rales, rhonchi, stridor Cardiovascular Exam: Present: regular rate, normal rhythm, normal heart sounds. Absent: systolic murmur, diastolic murmur, rubs, gallop, clicks Extremities exam: Present: normal inspection, full ROM, normal capillary refill. Absent: tenderness, pedal edema, joint swelling, calf tenderness Neurological exam: Present: alert, oriented X3 Psychiatric exam: Present: normal affect, normal mood Skin exam: Present: warm, dry, intact, normal color. Absent: rash Course Vital Signs 06/11/21 01:11 Temperature 98.6 F Pulse Rate 90 Respiratory 18 Rate Blood Pressure 126/74 O2 Sat by Pulse 99 Oximetry Medical Decision Making - Medical Decision Making 40-year-old female wanting a Covid test due to possible exposure. Covid test ordered. Covid test negative. Patient is agreeable with discharge home with follow-up to primary care and return to ER if any symptoms develop. Case discussed with denis Mock discharge home with follow up primary care. - Lab Data Lab Results 06/11/21 Range/Units 01:32 Coronavirus (PCR) Not Detected (Not Detectd) Disposition Clinical Impression: Encounter for screening for COVID-19 Disposition: HOME SELF-CARE Condition: Stable Instructions (If sedation given, give patient instructions): Coronavirus Disease 2019 (COVID-19) Additional Instructions: Please return to the Emergency Department if symptoms worsen or any other concerns. Is patient prescribed a controlled substance at d/c from ED?: No Referrals: Patricia Gonzalez MD [Primary Care Provider] - 1-2 days Time of Disposition: 02:25
== END 2021-06-11 02:43 | disposition home or self-care (01) ==
LOC: EC 01:01
DX: Z20.822 Contact with and (suspected) exposure to COVID-19 (principal); F17.200 Nicotine dependence, unspecified, uncomplicated; J44.9 Chronic obstructive pulmonary disease, unspecified; G43.909 Migraine, unspecified, not intractable, without status migrainosus; Z91.09 Other allergy status, other than to drugs and biological substances; Z79.899 Other long term (current) drug therapy; Z86.16 Personal history of COVID-19; Z88.0 Allergy status to penicillin; Z88.1 Allergy status to other antibiotic agents; Z88.8 Allergy status to other drugs, medicaments and biological substances; Z91.040 Latex allergy status; Z88.5 Allergy status to narcotic agent
CPT/HCPCS: 87635; 99283

== ENCOUNTER 2021-06-21 08:48 | Emergency (ER) | payer OTHER ==
[2021-06-21 09:01] VITALS: RESP 20; TEMP 98.9
[2021-06-21] MEDS ORDERED: KETOROLAC 15 MG/ML 1 ML VIAL IM STA (10:00)
--- NOTE | 2021-06-21 10:13 | XR ---
EXAMINATION TYPE: XR chest 2V DATE OF EXAM: 06/21/2021 COMPARISON: Chest x-ray December 06, 2020 HISTORY: Cough. History of covid infection in November. TECHNIQUE: Frontal and lateral views of the chest are obtained. FINDINGS: There is no suspicious focal air space opacity, pleural effusion, or pneumothorax seen cur rently. The cardiac silhouette size is within normal limits currently. The osseous structures are intact. Bilateral overlying metallic nipple limits. IMPRESSION: No acute pulmonary process currently.
--- NOTE | 2021-06-21 10:50 | ED ---
General Adult HPI - General Chief complaint: Upper Respiratory Infection Stated complaint: headache, SOB, chest congestion Time Seen by Provider: 06/21/21 09:02 Source: patient, RN notes reviewed Mode of arrival: ambulatory Limitations: no limitations - History of Present Illness Initial comments: 40-year-old female with a past medical history of fibromyalgia, asthma, GERD, primary immunodeficiency presents to the emergency of cough. Patient states she has had a cough and congestion for about 2 weeks. States she feels congested in her chest. Patient does have a history of asthma and is a smoker. She has a runny nose and headaches on and off. Patient has not had fevers at home. Patient states her symptoms seem to be getting worse instead of better so she presented to the emergency room. Patient has no other complaints at this time including shortness of breath, chest pain, abdominal pain, nausea or vomiting, headache, or visual changes. - Related Data Home Medications Medication Instructions Recorded Confirmed DULoxetine HCL [Cymbalta] 60 mg PO DAILY 02/26/20 06/21/21 buPROPion XL [Wellbutrin XL] 150 mg PO DAILY 08/14/20 06/21/21 ARIPiprazole [Abilify] 7.5 mg PO DAILY 11/04/20 06/21/21 Topiramate [Topiramate ER] 50 mg PO DAILY 04/06/21 06/21/21 Sucralfate [Carafate] 1 gm PO ACHS 05/09/21 06/21/21 Butalb/APAP/Caff 50-325-40Mg 1 - 2 tab PO Q6H PRN 06/21/21 06/21/21 [Fioricet 50-325-40] Cyclobenzaprine [Flexeril] 10 mg PO DAILY 06/21/21 06/21/21 Propranolol HCl [Propranolol HCl 60 mg PO DAILY 06/21/21 06/21/21 ER] busPIRone HCl [Buspar] 10 mg PO BID PRN 06/21/21 06/21/21 Previous Rx's Medication Instructions Recorded Amitriptyline HCl [Elavil] 10 mg PO HS #30 tab 11/29/20 Pantoprazole Sodium [Protonix] 40 mg PO DAILY #30 tab 04/09/21 Albuterol Inhaler [Ventolin Hfa 2 puff INHALATION RT-QID PRN #8 gm 06/21/21 Inhaler] Azithromycin [Zithromax Z-pack (6 250 mg PO DIRECTED #6 tab 06/21/21 tabs)] predniSONE 50 mg PO DAILY #5 tablet 06/21/21 Allergies Allergy/AdvReac Type Severity Reaction Status Date / Time adhesive Allergy Rash/Hives Verified 06/21/21 10:19 latex Allergy Rash/Hives Verified 06/21/21 10:19 morphine Allergy Unknown Verified 06/21/21 10:19 prochlorperazine Allergy Unknown Verified 06/21/21 10:19 [From Compazine] ciprofloxacin [From Cipro] AdvReac Hallucinati Verified 06/21/21 10:19 ons citalopram [From Celexa] AdvReac Suicidal Verified 06/21/21 10:19 thoughts diazepam [From Valium] AdvReac Hallucinati Verified 06/21/21 10:19 ons/Anxiety fluoxetine [From Prozac] AdvReac Suicidal Verified 06/21/21 10:19 thoughts metoclopramide [From Reglan] AdvReac Hallucinati Verified 06/21/21 10:19 ons/Anxiety paroxetine [From Paxil] AdvReac Suicidal Verified 06/21/21 10:19 thoughts Penicillins AdvReac Nausea & Verified 06/21/21 10:19 Vomiting Review of Systems ROS Statement: Those systems with pertinent positive or pertinent negative responses have been documented in the HPI. ROS Other: All systems not noted in ROS Statement are negative. Past Medical History Past Medical History: Asthma, Fibromyalgia, GERD/Reflux, GI Bleed Additional Past Medical History / Comment(s): covid + pneumonia 10/30/2020 complicated by respiratory failure, intubation, mechanical ventilation, bilateral pneumothoraces, COPD, Other hx: Primary immunodeficiency, antral ulcers, GI bleed, anemia, IBS, migraines, back pain, TMJ, seasonal allergies History of Any Multi-Drug Resistant Organisms: None Reported Past Surgical History: Breast Surgery, Ear Surgery, Uterine Ablation Additional Past Surgical History / Comment(s): EGDs, colonoscopies, bilateral breast augmentation, septoplasty, L ear trauma/reattached. Past Anesthesia/Blood Transfusion Reactions: No Reported Reaction, Motion Sickness Additional Past Anesthesia/Blood Transfusion Reaction / Comment(s): Pt has received blood in past without reaction. Past Psychological History: ADD/ADHD, Anxiety, Bipolar, Depression, PTSD Smoking Status: Current every day smoker Past Alcohol Use History: Occasional Past Drug Use History: Marijuana - Past Family History Father Additional Family Medical History / Comment(s): Father at age 51 from accidental drug overdose. Mother Family Medical History: Fibromyalgia Additional Family Medical History / Comment(s): Mother is alive at age 61 with history of primary immunodeficiency. Brother(s) Additional Family Medical History / Comment(s): Patient has one brother with history of alcohol abuse. Patient does not have any sisters. Patient has 2 children with no major medical problems. General Exam Limitations: no limitations General appearance: alert, in no apparent distress Head exam: Present: atraumatic Eye exam: Present: normal appearance, PERRL, EOMI. Absent: scleral icterus, conjunctival injection ENT exam: Present: normal exam, mucous membranes moist Neck exam: Present: normal inspection, full ROM. Absent: tenderness Respiratory exam: Present: normal lung sounds bilaterally. Absent: respiratory distress, wheezes Cardiovascular Exam: Present: regular rate, normal rhythm, normal heart sounds GI/Abdominal exam: Present: soft, normal bowel sounds. Absent: distended, tenderness Course Vital Signs 06/21/21 08:58 Temperature 98.9 F Pulse Rate 94 Respiratory 20 Rate Blood Pressure 112/71 O2 Sat by Pulse 98 Oximetry Medical Decision Making - Medical Decision Making Vitals are stable. Patient is well appearing. Lungs are clear. Chest x-ray shows no acute process. Coronavirus is negative. Liver has symptoms have been going on for 2 weeks we will treat patient with steroids and given her history of primary immunodeficiency an antibiotic. She will follow up with primary care. Will return here for any worsening symptoms. - Lab Data Lab Results 06/21/21 Range/Units 09:42 Coronavirus (PCR) Not Detected (Not Detectd) Disposition Clinical Impression: Sinusitis, Cough Disposition: HOME SELF-CARE Condition: Good Instructions (If sedation given, give patient instructions): Acute Cough (ED) Additional Instructions: Take medications as directed. Follow-up with your doctor in one to 2 days. Return to the emergency room for any worsening symptoms. Prescriptions: predniSONE 50 mg PO DAILY #5 tablet Albuterol Inhaler [Ventolin Hfa Inhaler] 2 puff INHALATION RT-QID PRN #8 gm PRN Reason: Shortness Of Breath Azithromycin [Zithromax Z-pack (6 tabs)] 250 mg PO DIRECTED #6 tab Is patient prescribed a controlled substance at d/c from ED?: No Referrals: Patricia Gonzalez MD [Primary Care Provider] - 1-2 days Time of Disposition: 11:00
[2021-06-21 11:42] VITALS: BP 124/78; PULSE 88
== END 2021-06-21 11:42 | disposition home or self-care (01) ==
LOC: EC 08:48
DX: J32.9 Chronic sinusitis, unspecified (principal); R06.02 Shortness of breath; M79.7 Fibromyalgia; J45.909 Unspecified asthma, uncomplicated; Z91.09 Other allergy status, other than to drugs and biological substances; F17.200 Nicotine dependence, unspecified, uncomplicated; Z20.822 Contact with and (suspected) exposure to COVID-19; Z88.0 Allergy status to penicillin; Z88.1 Allergy status to other antibiotic agents; Z88.8 Allergy status to other drugs, medicaments and biological substances; Z91.040 Latex allergy status; K21.9 Gastro-esophageal reflux disease without esophagitis; Z79.899 Other long term (current) drug therapy; Z86.16 Personal history of COVID-19
CPT/HCPCS: 87635; 71046; 99285; 96372; J1885

== ENCOUNTER → 2021-08-03 | Outpatient (CLI) | payer OTHER ==
--- NOTE | 2021-08-03 16:23 | XR ---
EXAMINATION TYPE: XR chest 2V DATE OF EXAM: 08/03/2021 COMPARISON: Chest x-ray 06/21/2021 HISTORY: R05.1 TECHNIQUE: Frontal and lateral views of the chest are obtained. FINDINGS: There is no focal air space opacity, pleural effusion, or pneumothorax seen. The cardiac silhouette size is within normal limits. Metallic posts are present to the nipples. There is a spinal curvature as on prior. There is biapical pleural thickening. The osseous structures are intact. IMPRESSION: No acute cardiopulmonary process.
== END | disposition home or self-care (01) ==
LOC: RADXRMAIN 15:13
PROVIDERS: ATTEND Family Medicine
DX: R05.1 Acute cough (principal)
CPT/HCPCS: 71046

== ENCOUNTER 2021-12-17 19:37 | Emergency (ER) | payer OTHER ==
[2021-12-17 19:56] VITALS: TEMP 97.9
[2021-12-17] MEDS ORDERED: SODIUM CHLORIDE 0.9% 500 ML 500 ML IV STA (21:22)
--- NOTE | 2021-12-17 21:26 | ED ---
GI Bleed HPI - General Chief complaint: GI Bleed Stated complaint: Blood in stool Time Seen by Provider: 12/17/21 21:05 Source: patient Mode of arrival: ambulatory - History of Present Illness Initial comments: This patient is 40-year-old woman who presents to have evaluation for what she suspects his anemia. The patient states that this morning she had passed stool with some bright red blood. She states that she needed to wait for her fianc to return from work and then he brought her here to have evaluation. The patient states that she has been feeling a little bit of exertional dyspnea. She is having generalized fatigue. She has had abdominal pain. No vomiting. No hematemesis or coffee-ground emesis. No chest pain, dyspnea at rest, palpitations or syncope. MD complaint: blood streaked stool Onset/Timin -: hour(s) Quality: painless Consistency: now resolved Improves with: none Worsens with: none Context: history of GI bleed - Related Data Home Medications Medication Instructions Recorded Confirmed DULoxetine HCL [Cymbalta] 60 mg PO DAILY 02/26/20 10/05/21 buPROPion XL [Wellbutrin XL] 150 mg PO DAILY 08/14/20 10/05/21 ARIPiprazole [Abilify] 7.5 mg PO DAILY 11/04/20 10/05/21 Topiramate [Topiramate ER] 50 mg PO BID 04/06/21 10/05/21 Sucralfate [Carafate] 1 gm PO ACHS 05/09/21 10/05/21 Butalb/APAP/Caff 50-325-40Mg 1 tab PO Q6H PRN 06/21/21 10/05/21 [Fioricet 50-325-40] Propranolol HCl [Propranolol HCl 60 mg PO DAILY 06/21/21 10/05/21 ER] busPIRone HCl [Buspar] 10 mg PO BID PRN 06/21/21 10/05/21 Albuterol Sulfate [Proair Hfa] 1 - 2 puff INHALATION RT-Q6H PRN 08/15/21 10/05/21 Cyclobenzaprine [Flexeril] 5 mg PO TID PRN 08/15/21 10/05/21 Kelp 1 tab PO DAILY 08/15/21 10/05/21 Ondansetron Odt [Zofran ODT] 4 mg PO Q8HR PRN 08/15/21 10/05/21 Amitriptyline HCl [Elavil] 20 mg PO HS 08/17/21 10/05/21 Previous Rx's Medication Instructions Recorded Pantoprazole Sodium [Protonix] 40 mg PO BID #30 tab 08/15/21 Allergies Allergy/AdvReac Type Severity Reaction Status Date / Time adhesive Allergy Rash/Hives Verified 12/17/21 22:19 latex Allergy Rash/Hives Verified 12/17/21 22:19 morphine Allergy Unknown Verified 12/17/21 22:19 prochlorperazine Allergy Unknown Verified 12/17/21 22:19 [From Compazine] ciprofloxacin [From Cipro] AdvReac Hallucinati Verified 12/17/21 22:19 ons citalopram [From Celexa] AdvReac Suicidal Verified 12/17/21 22:19 thoughts diazepam [From Valium] AdvReac Hallucinati Verified 12/17/21 22:19 ons/Anxiety fluoxetine [From Prozac] AdvReac Suicidal Verified 12/17/21 22:19 thoughts metoclopramide [From Reglan] AdvReac Hallucinati Verified 12/17/21 22:19 ons/Anxiety paroxetine [From Paxil] AdvReac Suicidal Verified 12/17/21 22:19 thoughts Penicillins AdvReac Nausea & Verified 12/17/21 22:19 Vomiting Review of Systems ROS Statement: Those systems with pertinent positive or pertinent negative responses have been documented in the HPI. ROS Other: All systems not noted in ROS Statement are negative. Constitutional: Reports: weakness (Generalized). Denies: fever, chills Respiratory: Denies: cough, dyspnea, wheezes Cardiovascular: Reports: dyspnea on exertion. Denies: chest pain, palpitations, orthopnea, edema, syncope Gastrointestinal: Reports: hematochezia. Denies: abdominal pain, nausea, vomiting, hematemesis, melena Genitourinary: Denies: dysuria Musculoskeletal: Reports: myalgia. Denies: back pain Skin: Denies: rash Neurological: Denies: headache, weakness, numbness Hematological/Lymphatic: Denies: easy bleeding Past Medical History Past Medical History: Asthma, Fibromyalgia, GERD/Reflux, GI Bleed Additional Past Medical History / Comment(s): covid + pneumonia 10/30/2020 complicated by respiratory failure, intubation, mechanical ventilation, bilateral pneumothoraces, COPD, Other hx: Primary immunodeficiency, antral ulcers, GI bleed, anemia, IBS, migraines, back pain, TMJ, seasonal allergies History of Any Multi-Drug Resistant Organisms: None Reported Past Surgical History: Breast Surgery, Ear Surgery, Uterine Ablation Additional Past Surgical History / Comment(s): EGDs, colonoscopies, bilateral breast augmentation, septoplasty, L ear trauma/reattached. Past Anesthesia/Blood Transfusion Reactions: No Reported Reaction, Motion Sickness Additional Past Anesthesia/Blood Transfusion Reaction / Comment(s): Pt has received blood in past without reaction. Past Psychological History: ADD/ADHD, Anxiety, Bipolar, Depression, PTSD Smoking Status: Current every day smoker Past Alcohol Use History: None Reported Past Drug Use History: None Reported - Past Family History Father Additional Family Medical History / Comment(s): Father at age 51 from accidental drug overdose. Mother Family Medical History: Fibromyalgia Additional Family Medical History / Comment(s): Mother is alive at age 61 with history of primary immunodeficiency. Brother(s) Additional Family Medical History / Comment(s): Patient has one brother with history of alcohol abuse. Patient does not have any sisters. Patient has 2 children with no major medical problems. General Exam General appearance: alert, in no apparent distress Head exam: Present: atraumatic, normocephalic Eye exam: Present: normal appearance. Absent: scleral icterus, conjunctival injection ENT exam: Present: normal oropharynx Neck exam: Present: normal inspection Respiratory exam: Present: normal lung sounds bilaterally. Absent: respiratory distress, wheezes, rales, rhonchi, stridor Cardiovascular Exam: Present: regular rate, normal rhythm, normal heart sounds. Absent: systolic murmur, diastolic murmur, rubs, gallop GI/Abdominal exam: Present: soft. Absent: distended, tenderness, guarding, rebound, rigid, mass Rectal exam: Present: normal inspection, normal rectal tone, other (NATALIIA Bethea as redipper). Absent: black stool, bloody stool, fecal impaction, hemorrhoids, mass, tenderness Extremities exam: Present: normal inspection, normal capillary refill. Absent: pedal edema, calf tenderness Back exam: Present: normal inspection. Absent: CVA tenderness (R), CVA tenderness (L) Neurological exam: Present: alert Skin exam: Present: warm, dry, intact, normal color. Absent: rash Course Vital Signs 12/17/21 12/17/21 12/17/21 19:52 22:00 22:40 Temperature 97.9 F Pulse Rate 93 72 64 Respiratory 19 20 18 Rate Blood Pressure 99/65 102/73 103/71 O2 Sat by Pulse 98 100 100 Oximetry 12/17/21 23:00 Temperature Pulse Rate 76 Respiratory 21 Rate Blood Pressure 115/79 O2 Sat by Pulse 100 Oximetry Medical Decision Making - Lab Data Result diagrams: 12/17/21 21:14 12/17/21 21:14 Lab Results 12/17/21 12/17/21 12/17/21 Range/Units 21:14 21:14 21:14 WBC 8.2 (3.8-10.6) k/uL RBC 3.66 L (3.80-5.40) m/uL Hgb 8.5 L (11.4-16.0) gm/dL Hct 30.3 L (34.0-46.0) % MCV 82.6 (80.0-100.0) fL MCH 23.2 L (25.0-35.0) pg MCHC 28.1 L (31.0-37.0) g/dL RDW 16.5 H (11.5-15.5) % Plt Count 479 H (150-450) k/uL MPV 7.1 Neutrophils % 40 % Lymphocytes % 46 % Monocytes % 6 % Eosinophils % 4 % Basophils % 1 % Neutrophils # 3.3 (1.3-7.7) k/uL Lymphocytes # 3.8 (1.0-4.8) k/uL Monocytes # 0.5 (0-1.0) k/uL Eosinophils # 0.3 (0-0.7) k/uL Basophils # 0.1 (0-0.2) k/uL Hypochromasia Marked Poikilocytosis Slight Anisocytosis Slight PT (9.0-12.0) sec INR (<1.2) APTT (22.0-30.0) sec Sodium 140 (137-145) mmol/L Potassium 3.6 (3.5-5.1) mmol/L Chloride 110 H (98-107) mmol/L Carbon Dioxide 22 (22-30) mmol/L Anion Gap 8 mmol/L BUN 14 (7-17) mg/dL Creatinine 0.96 (0.52-1.04) mg/dL Est GFR (CKD-EPI)AfAm 84 (>60 ml/min/1.73 sqM) Est GFR (CKD-EPI)NonAf 73 (>60 ml/min/1.73 sqM) Glucose 93 (74-99) mg/dL Calcium 9.1 (8.4-10.2) mg/dL Total Bilirubin 0.3 (0.2-1.3) mg/dL AST 18 (14-36) U/L ALT 13 (4-34) U/L Alkaline Phosphatase 86 (38-126) U/L Troponin I <0.012 (0.000-0.034) ng/mL Total Protein 7.4 (6.3-8.2) g/dL Albumin 4.1 (3.5-5.0) g/dL Stool Occult Blood (Negative) Blood Type Blood Type Recheck Bld Type Recheck Status Antibody Screen Spec Expiration Date 12/17/21 12/17/21 12/17/21 Range/Units 21:14 21:14 22:40 WBC (3.8-10.6) k/uL RBC (3.80-5.40) m/uL Hgb (11.4-16.0) gm/dL Hct (34.0-46.0) % MCV (80.0-100.0) fL MCH (25.0-35.0) pg MCHC (31.0-37.0) g/dL RDW (11.5-15.5) % Plt Count (150-450) k/uL MPV Neutrophils % % Lymphocytes % % Monocytes % % Eosinophils % % Basophils % % Neutrophils # (1.3-7.7) k/uL Lymphocytes # (1.0-4.8) k/uL Monocytes # (0-1.0) k/uL Eosinophils # (0-0.7) k/uL Basophils # (0-0.2) k/uL Hypochromasia Poikilocytosis Anisocytosis PT 10.0 (9.0-12.0) sec INR 0.9 (<1.2) APTT 18.8 L (22.0-30.0) sec Sodium (137-145) mmol/L Potassium (3.5-5.1) mmol/L Chloride (98-107) mmol/L Carbon Dioxide (22-30) mmol/L Anion Gap mmol/L BUN (7-17) mg/dL Creatinine (0.52-1.04) mg/dL Est GFR (CKD-EPI)AfAm (>60 ml/min/1.73 sqM) Est GFR (CKD-EPI)NonAf (>60 ml/min/1.73 sqM) Glucose (74-99) mg/dL Calcium (8.4-10.2) mg/dL Total Bilirubin (0.2-1.3) mg/dL AST (14-36) U/L ALT (4-34) U/L Alkaline Phosphatase (38-126) U/L Troponin I (0.000-0.034) ng/mL Total Protein (6.3-8.2) g/dL Albumin (3.5-5.0) g/dL Stool Occult Blood Negative (Negative) Blood Type O Positive Blood Type Recheck O Pos Bld Type Recheck Status No Antibody Screen NEGATIVE Spec Expiration Date 12/20/20212313 Disposition Clinical Impression: GI bleed, Chronic anemia, Migraine Disposition: HOME SELF-CARE Condition: Good Instructions (If sedation given, give patient instructions): Anemia (ED) Is patient prescribed a controlled substance at d/c from ED?: No Referrals: Patricia Gonzalez MD [Primary Care Provider] - 1-2 days
[2021-12-17] MEDS ORDERED: FAMOTIDINE 20 MG/2 ML VIAL IV STA (21:28)
[2021-12-17] MEDS ORDERED: ONDANSETRON 4 MG/2 ML VIAL IVP STA ×2 (21:28→23:55)
[2021-12-17 21:37] LABS: Anisocytosis Slight; Basophils # (A) 0.1 k/uL (0-0.2); Basophils % (A) 1 %; Eosinophils # (A) 0.3 k/uL (0-0.7); Eosinophils % (A) 4 %; HCT 30.3 % (34.0-46.0); HGB 8.5 gm/dL (11.4-16.0); Hypochromasia Marked; Lymphocytes # (A) 3.8 k/uL (1.0-4.8); Lymphocytes % (A) 46 %; MCH 23.2 pg (25.0-35.0); MCHC 28.1 g/dL (31.0-37.0); MCV 82.6 fL (80.0-100.0); Mean Platelet Volume 7.1; Monocytes # (A) 0.5 k/uL (0-1.0); Monocytes % (A) 6 %; Neutrophils # (A) 3.3 k/uL (1.3-7.7); Neutrophils % (A) 40 %; Platelet Count 479 k/uL (150-450); Poikilocytosis Slight; RBC 3.66 m/uL (3.80-5.40); RDW 16.5 % (11.5-15.5); WBC 8.2 k/uL (3.8-10.6)
[2021-12-17 21:47] LABS: Albumin 4.1 g/dL (3.5-5.0); Calcium 9.1 mg/dL (8.4-10.2); Potassium 3.6 mmol/L (3.5-5.1); Total Bilirubin 0.3 mg/dL (0.2-1.3); Total Protein 7.4 g/dL (6.3-8.2)
[2021-12-17] MEDS ORDERED: SUMAtriptan succinate 6 MG/0.5 ML VIAL SQ STA (21:59)
[2021-12-17 23:08] LABS: INR 0.9 (<1.2)
[2021-12-17 23:10] LABS: Partial Thromboplastin Time 18.8 sec (22.0-30.0)
[2021-12-17] MEDS ORDERED: diphenhydrAMINE 50 MG/ML 1 ML VIAL IVP STA (23:55)
[2021-12-18 00:17] VITALS: BP 98/65; PULSE 67; RESP 16
== END 2021-12-18 00:20 | disposition home or self-care (01) ==
LOC: EC 19:37
DX: K92.2 Gastrointestinal hemorrhage, unspecified (principal); D64.9 Anemia, unspecified; G43.909 Migraine, unspecified, not intractable, without status migrainosus; R06.00 Dyspnea, unspecified; F17.200 Nicotine dependence, unspecified, uncomplicated; J44.9 Chronic obstructive pulmonary disease, unspecified; M79.7 Fibromyalgia; Z86.16 Personal history of COVID-19; Z88.0 Allergy status to penicillin; Z88.1 Allergy status to other antibiotic agents; Z88.8 Allergy status to other drugs, medicaments and biological substances; Z91.040 Latex allergy status; Z88.6 Allergy status to analgesic agent; Z91.09 Other allergy status, other than to drugs and biological substances; Z79.899 Other long term (current) drug therapy
CPT/HCPCS: 36415; 86900; 86901; 80053; 84484; 85025; 85610; 85730; 86850; 82272; 99284; 96374; 96375 ×2; 96372; 96376; J3030; J1200; J2405 ×2

== ENCOUNTER 2021-12-23 08:59 | Emergency (ER) | payer OTHER ==
[2021-12-23 09:06] VITALS: TEMP 98.2
[2021-12-23] MEDS ORDERED: KETOROLAC 15 MG/ML 1 ML VIAL IVP STA (10:07)
[2021-12-23] MEDS ORDERED: diphenhydrAMINE 50 MG/ML 1 ML VIAL IVP STA (10:07)
--- NOTE | 2021-12-23 10:12 | ED ---
General Adult HPI - General Chief complaint: Headache Stated complaint: Migraine, YIMI Time Seen by Provider: 12/23/21 09:10 Source: patient, RN notes reviewed, old records reviewed Mode of arrival: ambulatory Limitations: no limitations - History of Present Illness Initial comments: This is a 41-year-old female who presents emergency Department with a migraine headache. Patient states she's had migraines for many years. Patient states this is typical of her migraine she is somewhat photophobic. Patient states she's nauseated but hasn't vomiting. Patient denies any fever chills or cough per patient denies chest pain difficulty breathing shortness of breath per patient denies abdominal pain. Patient states she has chronic anemia and the last time she had a hemoglobin was 8.5. Patient denies any other symptoms at this time. - Related Data Home Medications Medication Instructions Recorded Confirmed DULoxetine HCL [Cymbalta] 60 mg PO DAILY 02/26/20 10/05/21 buPROPion XL [Wellbutrin XL] 150 mg PO DAILY 08/14/20 10/05/21 ARIPiprazole [Abilify] 7.5 mg PO DAILY 11/04/20 10/05/21 Topiramate [Topiramate ER] 50 mg PO BID 04/06/21 10/05/21 Sucralfate [Carafate] 1 gm PO ACHS 05/09/21 10/05/21 Butalb/APAP/Caff 50-325-40Mg 1 tab PO Q6H PRN 06/21/21 10/05/21 [Fioricet 50-325-40] Propranolol HCl [Propranolol HCl 60 mg PO DAILY 06/21/21 10/05/21 ER] busPIRone HCl [Buspar] 10 mg PO BID PRN 06/21/21 10/05/21 Albuterol Sulfate [Proair Hfa] 1 - 2 puff INHALATION RT-Q6H PRN 08/15/2110/05 Cyclobenzaprine [Flexeril] 5 mg PO TID PRN 08/15/21 10/05/21 Kelp 1 tab PO DAILY 08/15/21 10/05/21 Ondansetron Odt [Zofran ODT] 4 mg PO Q8HR PRN 08/15/21 10/05/21 Amitriptyline HCl [Elavil] 20 mg PO HS 08/17/21 10/05/21 Previous Rx's Medication Instructions Recorded Pantoprazole Sodium [Protonix] 40 mg PO BID #30 tab 08/15/21 Allergies Allergy/AdvReac Type Severity Reaction Status Date / Time adhesive Allergy Rash/Hives Verified 12/23/21 09:06 latex Allergy Rash/Hives Verified 12/23/21 09:06 morphine Allergy Unknown Verified 12/23/21 09:06 prochlorperazine Allergy Unknown Verified 12/23/21 09:06 [From Compazine] ciprofloxacin [From Cipro] AdvReac Hallucinati Verified 12/23/21 09:06 ons citalopram [From Celexa] AdvReac Suicidal Verified 12/23/21 09:06 thoughts diazepam [From Valium] AdvReac Hallucinati Verified 12/23/21 09:06 ons/Anxiety fluoxetine [From Prozac] AdvReac Suicidal Verified 12/23/21 09:06 thoughts metoclopramide [From Reglan] AdvReac Hallucinati Verified 12/23/21 09:06 ons/Anxiety paroxetine [From Paxil] AdvReac Suicidal Verified 12/23/21 09:06 thoughts Penicillins AdvReac Nausea & Verified 12/23/21 09:06 Vomiting Review of Systems ROS Statement: Those systems with pertinent positive or pertinent negative responses have been documented in the HPI. ROS Other: All systems not noted in ROS Statement are negative. Past Medical History Past Medical History: Asthma, Fibromyalgia, GERD/Reflux, GI Bleed Additional Past Medical History / Comment(s): covid + pneumonia 10/30/2020 complicated by respiratory failure, intubation, mechanical ventilation, bilateral pneumothoraces, COPD, Other hx: Primary immunodeficiency, antral ulcers, GI bleed, anemia, IBS, migraines, back pain, TMJ, seasonal allergies History of Any Multi-Drug Resistant Organisms: None Reported Past Surgical History: Breast Surgery, Ear Surgery, Uterine Ablation Additional Past Surgical History / Comment(s): EGDs, colonoscopies, bilateral breast augmentation, septoplasty, L ear trauma/reattached. Past Anesthesia/Blood Transfusion Reactions: No Reported Reaction, Motion Sickness Additional Past Anesthesia/Blood Transfusion Reaction / Comment(s): Pt has received blood in past without reaction. Past Psychological History: ADD/ADHD, Anxiety, Bipolar, Depression, PTSD Smoking Status: Current every day smoker Past Alcohol Use History: Occasional Past Drug Use History: Marijuana - Past Family History Father Additional Family Medical History / Comment(s): Father at age 51 from accidental drug overdose. Mother Family Medical History: Fibromyalgia Additional Family Medical History / Comment(s): Mother is alive at age 61 with history of primary immunodeficiency. Brother(s) Additional Family Medical History / Comment(s): Patient has one brother with history of alcohol abuse. Patient does not have any sisters. Patient has 2 children with no major medical problems. General Exam - General Exam Comments Initial Comments: GENERAL: Patient is well-developed and well-nourished. Patient is nontoxic and well- hydrated and is in mild distress. No photophobia ENT: Neck is soft and supple. No significant lymphadenopathy is noted. Oropharynx is clear. Moist mucous membranes. Neck has full range of motion without eliciting any pain. EYES: The sclera were anicteric and conjunctiva were pink and moist. Extraocular movements were intact and pupils were equal round and reactive to light. Eyelids were unremarkable. PULMONARY: Unlabored respirations. Good breath sounds bilaterally. No audible rales rhonchi or wheezing was noted. CARDIOVASCULAR: There is a regular rate and rhythm without any murmurs gallops or rubs. ABDOMEN: Soft and nontender with normal bowel sounds. SKIN: Skin is clear with no lesions or rashes and otherwise unremarkable. NEUROLOGIC: Patient is alert and oriented x3. Cranial nerves II through XII are grossly intact. Motor and sensory are also intact. Normal speech, volume and content. Symmetrical smile. MUSCULOSKELETAL: Normal extremities with adequate strength and full range of motion. LYMPHATICS: No significant lymphadenopathy is noted PSYCHIATRIC: Normal psychiatric evaluation. Limitations: no limitations Course Vital Signs 12/23/21 09:04 Temperature 98.2 F Pulse Rate 91 Respiratory 20 Rate Blood Pressure 98/66 O2 Sat by Pulse 100 Oximetry Medical Decision Making - Medical Decision Making Patient received diphenhydramine ketorolac. Patient stated her headache was considerably improved. EKG shows sinus rhythm at 72 bpm ID interval 150 QRS is 98 QT interval 46 QTC is 433. Patient's EKG shows no ST segment elevation or depression. - Lab Data Result diagrams: 12/23/21 10:16 12/23/21 10:16 Lab Results 12/23/21 12/23/21 Range/Units 10:16 10:16 WBC 7.3 (3.8-10.6) k/uL RBC 3.47 L (3.80-5.40) m/uL Hgb 8.2 L (11.4-16.0) gm/dL Hct 28.4 L (34.0-46.0) % MCV 81.7 (80.0-100.0) fL MCH 23.7 L (25.0-35.0) pg MCHC 29.1 L (31.0-37.0) g/dL RDW 16.7 H (11.5-15.5) % Plt Count 499 H (150-450) k/uL MPV 7.2 Neutrophils % 56 % Lymphocytes % 31 % Monocytes % 5 % Eosinophils % 4 % Basophils % 0 % Neutrophils # 4.1 (1.3-7.7) k/uL Lymphocytes # 2.3 (1.0-4.8) k/uL Monocytes # 0.4 (0-1.0) k/uL Eosinophils # 0.3 (0-0.7) k/uL Basophils # 0.0 (0-0.2) k/uL Hypochromasia Marked Poikilocytosis Slight Anisocytosis Slight Sodium 140 (137-145) mmol/L Chloride 110 H (98-107) mmol/L Disposition Clinical Impression: Migraine headache Disposition: HOME SELF-CARE Condition: Good Instructions (If sedation given, give patient instructions): Migraine Headache (ED) Is patient prescribed a controlled substance at d/c from ED?: No Referrals: Patricia Gonzalez MD [Primary Care Provider] - 1-2 days Time of Disposition: 10:53
[2021-12-23 10:39] LABS: Anisocytosis Slight; Basophils % (A) 0 %; Eosinophils # (A) 0.3 k/uL (0-0.7); Eosinophils % (A) 4 %; HCT 28.4 % (34.0-46.0); HGB 8.2 gm/dL (11.4-16.0); Hypochromasia Marked; Lymphocytes # (A) 2.3 k/uL (1.0-4.8); Lymphocytes % (A) 31 %; MCH 23.7 pg (25.0-35.0); MCHC 29.1 g/dL (31.0-37.0); MCV 81.7 fL (80.0-100.0); Mean Platelet Volume 7.2; Monocytes # (A) 0.4 k/uL (0-1.0); Monocytes % (A) 5 %; Neutrophils # (A) 4.1 k/uL (1.3-7.7); Neutrophils % (A) 56 %; Platelet Count 499 k/uL (150-450); Poikilocytosis Slight; RBC 3.47 m/uL (3.80-5.40); RDW 16.7 % (11.5-15.5); WBC 7.3 k/uL (3.8-10.6)
[2021-12-23 10:55] LABS: Chloride 110 mmol/L (98-107); Sodium 140 mmol/L (137-145)
[2021-12-23 10:58] LABS: AST 26 U/L (14-36); African American GFR (CKD) >90 (>60 ml/min/1.73 sqM); Albumin 4.1 g/dL (3.5-5.0); Anion Gap 13 mmol/L; Blood Urea Nitrogen 15 mg/dL (7-17); Calcium 8.6 mg/dL (8.4-10.2); Carbon Dioxide 17 mmol/L (22-30); Glucose 88 mg/dL (74-99); Non-African American GFR(CKD) >90 (>60 ml/min/1.73 sqM); Total Bilirubin 0.5 mg/dL (0.2-1.3); Total Protein 7.4 g/dL (6.3-8.2)
[2021-12-23 10:59] LABS: ALT 14 U/L (4-34); Alkaline Phosphatase 99 U/L (38-126)
[2021-12-23 12:03] VITALS: BP 101/68; PULSE 78; RESP 18
== END 2021-12-23 12:03 | disposition home or self-care (01) ==
LOC: EC 08:59
DX: G43.909 Migraine, unspecified, not intractable, without status migrainosus (principal); K21.9 Gastro-esophageal reflux disease without esophagitis; M79.7 Fibromyalgia; J44.9 Chronic obstructive pulmonary disease, unspecified; F17.200 Nicotine dependence, unspecified, uncomplicated; Z91.09 Other allergy status, other than to drugs and biological substances; Z91.040 Latex allergy status; Z88.5 Allergy status to narcotic agent; Z86.16 Personal history of COVID-19; Z88.1 Allergy status to other antibiotic agents; Z88.0 Allergy status to penicillin; Z79.899 Other long term (current) drug therapy
CPT/HCPCS: 36415; 93005; 80053; 85025; 96374; 96375; 99284; J1200; J1885; J1790

== ENCOUNTER 2021-12-29 01:16 | Emergency (ER) | payer OTHER ==
[2021-12-29 01:50] VITALS: TEMP 98.2
[2021-12-29] MEDS ORDERED: DEXAMETHASONE SOD PHOSPHATE 10 MG/ML 1 ML VIAL IVP STA (02:03)
[2021-12-29] MEDS ORDERED: KETOROLAC 15 MG/ML 1 ML VIAL IVP STA (02:03)
[2021-12-29] MEDS ORDERED: diphenhydrAMINE 50 MG/ML 1 ML VIAL IVP STA (02:03)
[2021-12-29] MEDS ORDERED: SODIUM CHLORIDE 0.9% 1,000 ML IV STA (02:03)
--- NOTE | 2021-12-29 02:04 | ED ---
Headache HPI - General Chief Complaint: Headache Stated Complaint: Migraine Time Seen by Provider: 12/29/21 02:03 Source: RN notes reviewed, old records reviewed Mode of arrival: ambulatory Limitations: no limitations - History of Present Illness Initial Comments: This is a 41-year-old female to the emergency department for evaluation patient presents today for evaluation regards to nausea vomiting and headache. Persistent headache here in the emergency department. Patient has multiple evaluations in ER visits for headache and nasal she presents for today. Sensation states she also sometimes as low hemoglobin for chronic anemia. Concern for blood counts. Denies active current bleeding. Positive nausea no vomiting no trauma no fevers. MD Complaint: headache, "migraine" -: days(s) Onset Description: gradual Location: right, left, frontal Severity: moderate Severity scale (1-10): 9 Quality: aching, throbbing, pulsatile, constant, similar to previous headaches Consistency: constant Improves With: nothing Worsens With: none Associated Symptoms: nausea, photophobia, sensitivity to sound Other Symptoms: malaise Treatments Prior to Arrival: none - Related Data Home Medications Medication Instructions Recorded Confirmed DULoxetine HCL [Cymbalta] 60 mg PO DAILY 02/26/20 10/05/21 buPROPion XL [Wellbutrin XL] 150 mg PO DAILY 08/14/20 10/05/21 ARIPiprazole [Abilify] 7.5 mg PO DAILY 11/04/20 10/05/21 Topiramate [Topiramate ER] 50 mg PO BID 04/06/21 10/05/21 Sucralfate [Carafate] 1 gm PO ACHS 05/09/21 10/05/21 Butalb/APAP/Caff 50-325-40Mg 1 tab PO Q6H PRN 06/21/21 10/05/21 [Fioricet 50-325-40] Propranolol HCl [Propranolol HCl 60 mg PO DAILY 06/21/21 10/05/21 ER] busPIRone HCl [Buspar] 10 mg PO BID PRN 06/21/21 10/05/21 Albuterol Sulfate [Proair Hfa] 1 - 2 puff INHALATION RT-Q6H PRN 08/15/21 10/05/21 Cyclobenzaprine [Flexeril] 5 mg PO TID PRN 08/15/21 10/05/21 Kelp 1 tab PO DAILY 08/15/21 10/05/21 Ondansetron Odt [Zofran ODT] 4 mg PO Q8HR PRN 08/15/21 10/05/21 Amitriptyline HCl [Elavil] 20 mg PO HS 08/17/21 10/05/21 Previous Rx's Medication Instructions Recorded Pantoprazole Sodium [Protonix] 40 mg PO BID #30 tab 08/15/21 Allergies Allergy/AdvReac Type Severity Reaction Status Date / Time adhesive Allergy Rash/Hives Verified 12/23/21 09:06 latex Allergy Rash/Hives Verified 12/23/21 09:06 morphine Allergy Unknown Verified 12/23/21 09:06 prochlorperazine Allergy Unknown Verified 12/23/21 09:06 [From Compazine] ciprofloxacin [From Cipro] AdvReac Hallucinati Verified 12/23/21 09:06 ons citalopram [From Celexa] AdvReac Suicidal Verified 12/23/21 09:06 thoughts diazepam [From Valium] AdvReac Hallucinati Verified 12/23/21 09:06 ons/Anxiety fluoxetine [From Prozac] AdvReac Suicidal Verified 12/23/21 09:06 thoughts metoclopramide [From Reglan] AdvReac Hallucinati Verified 12/23/21 09:06 ons/Anxiety paroxetine [From Paxil] AdvReac Suicidal Verified 12/23/21 09:06 thoughts Penicillins AdvReac Nausea & Verified 12/23/21 09:06 Vomiting Review of Systems ROS Statement: Those systems with pertinent positive or pertinent negative responses have been documented in the HPI. ROS Other: All systems not noted in ROS Statement are negative. Past Medical History Past Medical History: Asthma, Fibromyalgia, GERD/Reflux, GI Bleed Additional Past Medical History / Comment(s): covid + pneumonia 10/30/2020 complicated by respiratory failure, intubation, mechanical ventilation, bilateral pneumothoraces, COPD, Other hx: Primary immunodeficiency, antral u lcers, GI bleed, anemia, IBS, migraines, back pain, TMJ, seasonal allergies History of Any Multi-Drug Resistant Organisms: None Reported Past Surgical History: Breast Surgery, Ear Surgery, Uterine Ablation Additional Past Surgical History / Comment(s): EGDs, colonoscopies, bilateral breast augmentation, septoplasty, L ear trauma/reattached. Past Anesthesia/Blood Transfusion Reactions: No Reported Reaction, Motion Sickness Additional Past Anesthesia/Blood Transfusion Reaction / Comment(s): Pt has received blood in past without reaction. Past Psychological History: ADD/ADHD, Anxiety, Bipolar, Depression, PTSD Smoking Status: Current every day smoker Past Alcohol Use History: Occasional Past Drug Use History: Marijuana - Past Family History Father Additional Family Medical History / Comment(s): Father at age 51 from accidental drug overdose. Mother Family Medical History: Fibromyalgia Additional Family Medical History / Comment(s): Mother is alive at age 61 with history of primary immunodeficiency. Brother(s) Additional Family Medical History / Comment(s): Patient has one brother with history of alcohol abuse. Patient does not have any sisters. Patient has 2 children with no major medical problems. General Exam General appearance: alert, in no apparent distress Head exam: Present: atraumatic, normocephalic, normal inspection Eye exam: Present: normal appearance, PERRL, EOMI. Absent: scleral icterus, conjunctival injection, periorbital swelling ENT exam: Present: normal exam, mucous membranes moist Neck exam: Present: normal inspection. Absent: tenderness, meningismus, lymphadenopathy Respiratory exam: Present: normal lung sounds bilaterally. Absent: respiratory distress, wheezes, rales, rhonchi, stridor Cardiovascular Exam: Present: regular rate, normal rhythm, normal heart sounds. Absent: systolic murmur, diastolic murmur, rubs, gallop, clicks GI/Abdominal exam: Present: soft, normal bowel sounds. Absent: distended, tenderness, guarding, rebound, rigid Extremities exam: Present: normal inspection, full ROM, normal capillary refill. Absent: tenderness, pedal edema, joint swelling, calf tenderness Back exam: Present: normal inspection Neurological exam: Present: alert, oriented X3, CN II-XII intact Psychiatric exam: Present: normal affect, normal mood Skin exam: Present: warm, dry, intact, normal color. Absent: rash Course Vital Signs 12/29/21 01:47 Temperature 98.2 F Pulse Rate 94 Respiratory 18 Rate Blood Pressure 104/56 O2 Sat by Pulse 98 Oximetry - Reevaluation(s) Reevaluation #1: 12/29/21 02:56 Medical record is reviewed Reevaluation #2: 12/29/21 02:56 Patient's headache is currently resolved Reevaluation #3: 12/29/21 02:56 Patient states she does have follow-up with pain control clinic Reevaluation #4: 12/29/21 02:56 Patient informed mother results and questions are answered Medical Decision Making - Medical Decision Making 41 female of acute on chronic headache. At this time we do have headache resolution. Patient feeling improved. Patient has no other complaints aside from significant headache and patient can be discharged home Disposition Clinical Impression: Chronic anemia, Migraine, Rebound headache, Headache Disposition: HOME SELF-CARE Condition: Good Instructions (If sedation given, give patient instructions): Acute Headache (ED) Is patient prescribed a controlled substance at d/c from ED?: No Referrals: Patricia Gonzalez MD [Primary Care Provider] - 1-2 days
[2021-12-29] MEDS ORDERED: HYDROmorphone 1 MG/ML 1 ML SYRINGE IVP STA (02:55)
[2021-12-29 02:56] LABS: Anisocytosis Slight; Basophils % (A) 0 %; Eosinophils # (A) 0.2 k/uL (0-0.7); Eosinophils % (A) 3 %; HCT 26.4 % (34.0-46.0); HGB 7.7 gm/dL (11.4-16.0); Hypochromasia Marked; Lymphocytes # (A) 2.8 k/uL (1.0-4.8); Lymphocytes % (A) 32 %; MCH 24.1 pg (25.0-35.0); MCHC 29.1 g/dL (31.0-37.0); MCV 82.6 fL (80.0-100.0); Mean Platelet Volume 7.6; Monocytes # (A) 0.4 k/uL (0-1.0); Monocytes % (A) 4 %; Neutrophils # (A) 4.9 k/uL (1.3-7.7); Neutrophils % (A) 57 %; Platelet Count 503 k/uL (150-450); Poikilocytosis Slight; RDW 16.9 % (11.5-15.5); WBC 8.7 k/uL (3.8-10.6)
[2021-12-29 03:25] LABS: Calcium 8.6 mg/dL (8.4-10.2); Phosphorus 3.9 mg/dL (2.5-4.5); Potassium 4.1 mmol/L (3.5-5.1); Total Bilirubin 0.3 mg/dL (0.2-1.3); Total Protein 6.8 g/dL (6.3-8.2)
[2021-12-29 04:40] VITALS: BP 101/62; PULSE 78; RESP 16
== END 2021-12-29 04:38 | disposition home or self-care (01) ==
LOC: EC 01:16
DX: D64.9 Anemia, unspecified (principal); G43.909 Migraine, unspecified, not intractable, without status migrainosus; F17.200 Nicotine dependence, unspecified, uncomplicated; J45.909 Unspecified asthma, uncomplicated; Z91.048 Other nonmedicinal substance allergy status; Z91.040 Latex allergy status; Z88.5 Allergy status to narcotic agent; Z88.1 Allergy status to other antibiotic agents; Z88.9 Allergy status to unspecified drugs, medicaments and biological substances; Z88.8 Allergy status to other drugs, medicaments and biological substances; Z88.0 Allergy status to penicillin
CPT/HCPCS: 36415; 86900; 86901; 80053; 83735; 84100; 85025; 86850; 99284; 96374; 96375; 96361; J1200; J1100; J1885; J1790

== ENCOUNTER → 2022-12-05 | Outpatient (CLI) | payer OTHER ==
--- NOTE | 2022-12-05 12:08 | CA ---
Stress Echo Report Dimple Dexter Age: 41 Gender: F : 1980 Exam Date: 12/05/2022 09:39 Exam Location: [facility] Ht (in): 64 Wt (lb): 152 Ordering Physician: Patricia Gonzalez MD Referring Physician: VLAD, Reimbursement Counselor: Avery Myers Technologist Procedure CPT: Indication: R07.9 CHEST PAIN ICD-9 Codes: Rhythm: Patient History: Cardiac Medications: Medications in past 24 hours: Contrast: Stress Results Protocol: Sarwat Total dose(mL): Exercise Duration (min:sec): 6:[address] Depression (mm): Angina Score: Reddy Score: METS: 7.9 Resting HR: 94 Resting BP: 92 / 57 Peak HR: 123 Peak BP: 142 / 65 Max Predicted HR: 177 69 % Max Predicted HR Target HR: 150 Double Product: [id number] Stress Summary: BP Response: Reason for Termination: SHORT OF BREATH Cardiac Symptoms: SHORT OF BREATH ECG Analysis Resting ECG: Normal sinus rhythm normal axis normal intervals Stress ECG: Patient exercised on Sarwat protocol for a total of 6 a nd half minutes achieving 8 mets 70% of predicted maximal heart rate without chest pain or diagnostic ST segment depression Arrhythmia: Echo Analysis Resting Echo: Normal left ventricular size wall motion systolic function Peak Echo Analysis: No evidence of exercise induced wall motion abnormalities MEASUREMENTS (Male/Female) Normal Values CONCLUSIONS Inconclusive stress echo secondary to her name related to to obtain target heart rate Dr. Greg Kineny MD (Electronically Signed) Final Date: 05 December 2022 12:07
== END | disposition home or self-care (01) ==
LOC: RADNMMAIN 09:33
PROVIDERS: ATTEND Family Medicine
DX: R07.9 Chest pain, unspecified (principal)
CPT/HCPCS: 93351

== ENCOUNTER 2023-04-09 20:40 | Emergency (ER) | payer OTHER ==
[2023-04-09 21:37] VITALS: PULSE 82; TEMP 98.7
[2023-04-09 22:33] LABS: Basophils % (A) 0 %; Eosinophils # (A) 0.5 k/uL (0-0.7); Eosinophils % (A) 5 %; HCT 29.2 % (34.0-46.0); HGB 9.3 gm/dL (11.4-16.0); Hypochromasia Marked; Lymphocytes # (A) 3.5 k/uL (1.0-4.8); Lymphocytes % (A) 35 %; MCH 29.2 pg (25.0-35.0); MCHC 31.8 g/dL (31.0-37.0); Mean Platelet Volume 7.9; Monocytes # (A) 0.7 k/uL (0-1.0); Monocytes % (A) 7 %; Neutrophils # (A) 5.1 k/uL (1.3-7.7); Neutrophils % (A) 51 %; Platelet Count 428 k/uL (150-450); RBC 3.17 m/uL (3.80-5.40)
[2023-04-09 22:38] LABS: ALT 46 U/L (4-34); AST 33 U/L (14-36); African American GFR (CKD) 64 (>60 ml/min/1.73 sqM); Albumin 3.9 g/dL (3.5-5.0); Alcohol <10 mg/dL; Alkaline Phosphatase 188 U/L (38-126); Anion Gap 12 mmol/L; Blood Urea Nitrogen 19 mg/dL (7-17); Carbon Dioxide 16 mmol/L (22-30); Chloride 110 mmol/L (98-107); Glucose 99 mg/dL (74-99); Non-African American GFR(CKD) 56 (>60 ml/min/1.73 sqM); Potassium 4.1 mmol/L (3.5-5.1); Sodium 138 mmol/L (137-145); Total Bilirubin 0.3 mg/dL (0.2-1.3); Total Protein 6.9 g/dL (6.3-8.2)
[2023-04-10 00:04] VITALS: BP 111/71; RESP 18
--- NOTE | 2023-04-10 00:04 | ED ---
Recheck HPI - General Chief Complaint: Recheck/Abnormal Lab/Rx Stated Complaint: abnormal lab Time Seen by Provider: 04/10/23 00:01 Source: patient, RN notes reviewed, old records reviewed, Caregiver Mode of arrival: ambulatory Limitations: no limitations - History of Present Illness Initial Comments: This is a 42-year-old female to the emergency department today for evaluation. Patient presents today for not feeling well. Patient is recent started on medication for alcohol withdrawal feels like she is gone through that without any significant difficulty has mild nausea no acute complaints otherwise no nausea vomiting diarrhea here in the ER some bodyaches and pains related to fibromyalgia. Patient at times feels lightheaded and dizzy is overall feeling improved. Patient was told to come the emergency department by primary care for abnormal lab testing. Patient does admit to recent alcohol use that she is trying to abstain from alcohol, was going through alcohol or trauma last week. Symptoms are resolved MD Complaint: abnormal lab -: unknown Returns Today for: Called Because of Abnormal Lab/Test Symptoms Since Prior Visit: no new symptoms Associated Symptoms: none Treatments Prior to Arrival: other (0) - Related Data Home Medications Medication Instructions Recorded Confirmed DULoxetine HCL [Cymbalta] 60 mg PO DAILY 02/26/20 01/09/22 buPROPion XL [Wellbutrin XL] 150 mg PO DAILY 08/14/20 01/09/22 ARIPiprazole [Abilify] 7.5 mg PO DAILY 11/04/20 01/09/22 Topiramate [Topiramate ER 50 mg PO BID 04/06/21 01/09/22 (Sprinkle)] Sucralfate [Carafate] 1 gm PO ACHS 05/09/21 01/09/22 Butalb/APAP/Caff 50-325-40Mg 1 tab PO Q6H PRN 06/21/21 01/09/22 [Fioricet 50-325-40] Propranolol HCl [Propranolol HCl 60 mg PO DAILY 06/21/21 01/09/22 ER] busPIRone HCl [Buspar] 10 mg PO BID PRN 06/21/21 01/09/22 Albuterol Sulfate [Proair Hfa] 1 - 2 puff INHALATION RT-Q6H PRN 08/15/21 01/09/22 Cyclobenzaprine [Flexeril] 5 mg PO TID PRN 08/15/21 01/09/22 Kelp 1 tab PO DAILY 08/15/21 01/09/22 Ondansetron Odt [Zofran ODT] 4 mg PO Q8HR PRN 08/15/21 01/09/22 Amitriptyline HCl [Elavil] 20 mg PO HS 08/17/21 01/09/22 Previous Rx's Medication Instructions Recorded Pantoprazole Sodium [Protonix] 40 mg PO BID #30 tab 08/15/21 Allergies Allergy/AdvReac Type Severity Reaction Status Date / Time adhesive Allergy Rash/Hives Verified 04/09/23 21:37 latex Allergy Rash/Hives Verified 04/09/23 21:37 morphine Allergy Unknown Verified 04/09/23 21:37 prochlorperazine Allergy Unknown Verified 04/09/23 21:37 [From Compazine] ciprofloxacin [From Cipro] AdvReac Hallucinati Verified 04/09/23 21:37 ons citalopram [From Celexa] AdvReac Suicidal Verified 04/09/23 21:37 thoughts diazepam [From Valium] AdvReac Hallucinati Verified 04/09/23 21:37 ons/Anxiety fluoxetine [From Prozac] AdvReac Suicidal Verified 04/09/23 21:37 thoughts metoclopramide [From Reglan] AdvReac Hallucinati Verified 04/09/23 21:37 ons/Anxiety paroxetine [From Paxil] AdvReac Suicidal Verified 04/09/23 21:37 thoughts Penicillins AdvReac Nausea & Verified 04/09/23 21:37 Vomiting Review of Systems ROS Statement: Those systems with pertinent positive or pertinent negative responses have been documented in the HPI. ROS Other: All systems not noted in ROS Statement are negative. Past Medical History Past Medical History: Asthma, Fibromyalgia, GERD/Reflux, GI Bleed Additional Past Medical History / Comment(s): covid + pneumonia 10/30/2020 complicated by respiratory failure, intubation, mechanical ventilation, bilateral pneumothoraces, COPD, Other hx: Primary immunodeficiency, antral ulcers, GI bleed, anemia, IBS, migraines, back pain, TMJ, seasonal allergies History of Any Multi-Drug Resistant Organisms: None Reported Past Surgical History: Breast Surgery, Ear Surgery, Uterine Ablation Additional Past Surgical History / Comment(s): EGDs, colonoscopies, bilateral breast augmentation, septoplasty, L ear trauma/reattached. Past Anesthesia/Blood Transfusion Reactions: No Reported Reaction, Motion Sickness Additional Past Anesthesia/Blood Transfusion Reaction / Comment(s): Pt has received blood in past without reaction. Past Psychological History: ADD/ADHD, Anxiety, Bipolar, Depression, PTSD Smoking Status: Current every day smoker Past Alcohol Use History: Daily, Heavy Past Drug Use History: Marijuana - Past Family History Father Additional Family Medical History / Comment(s): Father at age 51 from accidental drug overdose. Mother Family Medical History: Fibromyalgia Additional Family Medical History / Comment(s): Mother is alive at age 61 with history of primary immunodeficiency. Brother(s) Additional Family Medical History / Comment(s): Patient has one brother with history of alcohol abuse. Patient does not have any sisters. Patient has 2 children with no major medical problems. General Exam Limitations: no limitations General appearance: alert, in no apparent distress Head exam: Present: atraumatic, normocephalic, normal inspection Eye exam: Present: normal appearance, PERRL, EOMI. Absent: scleral icterus, conjunctival injection, periorbital swelling ENT exam: Present: normal exam, mucous membranes moist Neck exam: Present: normal inspection. Absent: tenderness, meningismus, lymphadenopathy Respiratory exam: Present: normal lung sounds bilaterally. Absent: respiratory distress, wheezes, rales, rhonchi, stridor Cardiovascular Exam: Present: regular rate, normal rhythm, normal heart sounds. Absent: systolic murmur, diastolic murmur, rubs, gallop, clicks GI/Abdominal exam: Present: soft, normal bowel sounds. Absent: distended, tenderness, guarding, rebound, rigid Extremities exam: Present: normal inspection, full ROM, normal capillary refill. Absent: tenderness, pedal edema, joint swelling, calf tenderness Back exam: Present: normal inspection Neurological exam: Present: alert, oriented X3, CN II-XII intact Psychiatric exam: Present: normal affect, normal mood Skin exam: Present: warm, dry, intact, normal color. Absent: rash Course Vital Signs 04/09/23 04/10/23 21:31 00:04 Temperature 98.7 F Pulse Rate 82 82 Respiratory 20 18 Rate Blood Pressure 97/67 111/71 O2 Sat by Pulse 100 96 Oximetry - Reevaluation(s) Reevaluation #1: 04/10/23 00:45 Attic record is reviewed Reevaluation #2: 04/10/23 00:45 Patient continues management as an outpatient with multivitamins and symptom control Reevaluation #3: 04/10/23 00:45 Patient informed results questions answered Reevaluation #4: 04/10/23 00:45 Was pt. sent in by a medical professional or institution ([facility], [employer], urgent care, hospital, or custodial...) When possible be specific @ -no Did you speak to anyone other than the patient for history (EMS, parent, family, police, friend...)? What history was obtained from this source @ -no Did you review nursing and triage notes (agree or disagree)? Why? @ -agree Are old charts reviewed (outside hosp., previous admission, EMS record, old EKG, old radiological studies, urgent care reports/EKG's, custodial records)? Report findings @ -yes Differential Diagnosis (chest pain, altered mental status, abdominal pain women, abdominal pain men, vaginal bleeding, weakness, fever, dyspnea, syncope, headache, dizziness, GI bleed, back pain, seizure, CVA, palpatations, mental health, musculoskeletal)? @ -prior EKG interpreted by me (3pts min.). @ -yes X-rays interpreted by me (1pt min.). @ -no CT interpreted by me (1pt min.). @ -no U/S interpreted by me (1pt. min.). @ -no What testing was considered but not performed or refused? (CT, X-rays, U/S, labs)? Why? @ -none What meds were considered but not given or refused? Why? @ -none Did you discuss the management of the patient with other professionals (professionals i.e. [facility], [employer] CLEANER, lab, RT, psych nurse, psychiatric social worker, m[place]gi[place], teacher, licensed mortgage loan officer, case packer and sealer)? Give summary @ -no Was smoking cessation discussed for >3mins.? @ -no Was critical care preformed (if so, how long)? @ -no Were there social determinants of health that impacted care today? How? (Homelessness, low income, unemployed, alcoholism, drug addiction, transportation, low edu. Level, literacy, decrease access to med. care, retirement, rehab)? @ -none Was there de-escalation of care discussed even if they declined (Discuss DNR or withdrawal of care, Hospice)? DNR status @ -no What co-morbidities impacted this encounter? (DM, HTN, Smoking, COPD, CAD, Cancer, CVA, ARF, Chemo, Hep., AIDS, mental health diagnosis, sleep apnea, morbid obesity)? @ -none Was patient admitted / discharged? Hospital course, mention meds given and route, prescriptions, significant lab abnormalities, going to OR and other pertinent info. @ - 42 female to the emergency department for evaluation no recent cessation of alcohol use. Patient does have mild elevated liver enzymes are improving patient feels well here in the ER and is having some fibromyalgia type pains. No new acute distress and can be discharged home Discharge Undiagnosed new problem with uncertain prognosis? @ -no Drug Therapy requiring intensive monitoring for toxicity (Heparin, Nitro, I nsulin, Cardizem)? @ -no Were any procedures done? @ -no Diagnosis/symptom? @ -Generalized pain chronic pain and fibromyalgia Acute, or Chronic, or Acute on Chronic? @ -Acute Uncomplicated (without systemic symptoms) or Complicated (systemic symptoms)? @ -Complicated Side effects of treatment? @ -no Exacerbation, Progression, or Severe Exacerbation? @ -exacerbation Poses a threat to life or bodily function? How? (Chest pain, USA, SD, pneumonia, PE, COPD, DKA, ARF, appy, cholecystitis, CVA, Diverticulitis, Homicidal, Suicidal, threat to staff... and all critical care pts) @ -no Medical Decision Making - Medical Decision Making 42 female to the emergency department for evaluation no recent cessation of alcohol use. Patient does have mild elevated liver enzymes are improving patient feels well here in the ER and is having some fibromyalgia type pains. Patient ALSO concern for active alcohol withdrawal. At times history, call for pain control. No new acute distress and can be discharged home - Lab Data Result diagrams: 04/09/23 22:07 04/09/23 22:07 Lab Results 04/09/23 04/09/23 Range/Units 22:07 22:07 WBC 10.0 (3.8-10.6) k/uL RBC 3.17 L (3.80-5.40) m/uL Hgb 9.3 L (11.4-16.0) gm/dL Hct 29.2 L (34.0-46.0) % MCV 92.0 (80.0-100.0) fL MCH 29.2 (25.0-35.0) pg MCHC 31.8 (31.0-37.0) g/dL RDW 16.0 H (11.5-15.5) % Plt Count 428 (150-450) k/uL MPV 7.9 Neutrophils % 51 % Lymphocytes % 35 % Monocytes % 7 % Eosinophils % 5 % Basophils % 0 % Neutrophils # 5.1 (1.3-7.7) k/uL Lymphocytes # 3.5 (1.0-4.8) k/uL Monocytes # 0.7 (0-1.0) k/uL Eosinophils # 0.5 (0-0.7) k/uL Basophils # 0.0 (0-0.2) k/uL Hypochromasia Marked Sodium 138 (137-145) mmol/L Potassium 4.1 (3.5-5.1) mmol/L Chloride 110 H (98-107) mmol/L Carbon Dioxide 16 L (22-30) mmol/L Anion Gap 12 mmol/L BUN 19 H (7-17) mg/dL Creatinine 1.19 H (0.52-1.04) mg/dL Est GFR (CKD-EPI)AfAm 64 (>60 ml/min/1.73 sqM) Est GFR (CKD-EPI)NonAf 56 (>60 ml/min/1.73 sqM) Glucose 99 (74-99) mg/dL Calcium 9.0 (8.4-10.2) mg/dL Total Bilirubin 0.3 (0.2-1.3) mg/dL AST 33 (14-36) U/L ALT 46 H (4-34) U/L Alkaline Phosphatase 188 H (38-126) U/L Total Protein 6.9 (6.3-8.2) g/dL Albumin 3.9 (3.5-5.0) g/dL Serum Alcohol <10 mg/dL - EKG Data -: EKG Interpreted by Me (EKG sinus 79 AL 153 QRS 90 QTC 414) Disposition Clinical Impression: Weakness, Fibromyalgia, Abdominal pain, Chronic anemia, Alcohol abuse Disposition: HOME SELF-CARE Condition: Good Instructions (If sedation given, give patient instructions): Weakness (ED) Is patient prescribed a controlled substance at d/c from ED?: No Referrals: Patricia Gonzalez MD [Primary Care Provider] - 1-2 days Time of Disposition: 00:45
[2023-04-10] MEDS ORDERED: ACET/COD 300 MG/30 MG STARTER PACK 6 TAB BTL PO STA (00:43)
== END 2023-04-10 00:52 | disposition home or self-care (01) ==
LOC: EC 20:40
DX: D64.9 Anemia, unspecified (principal); F10.10 Alcohol abuse, uncomplicated; F31.9 Bipolar disorder, unspecified; F41.9 Anxiety disorder, unspecified; F17.200 Nicotine dependence, unspecified, uncomplicated; Z86.16 Personal history of COVID-19; Z88.0 Allergy status to penicillin; Z88.1 Allergy status to other antibiotic agents; Z88.8 Allergy status to other drugs, medicaments and biological substances; Z91.040 Latex allergy status
CPT/HCPCS: 36415; 93005; 80053; 85025; 99284; G0480; 80320

== ENCOUNTER 2023-06-16 06:21 | Emergency (ER) | payer OTHER ==
[2023-06-16 06:38] VITALS: BP 107/62; PULSE 88; RESP 18; TEMP 98
[2023-06-16] MEDS ORDERED: DEXAMETHASONE SOD PHOSPHATE 10 MG/ML 1 ML VIAL IVP STA (06:44)
[2023-06-16] MEDS ORDERED: SODIUM CHLORIDE 0.9% 500 ML 500 ML IV STA (06:44)
[2023-06-16] MEDS ORDERED: droPERidol 5 MG/2 ML VIAL IVP ONE (06:44)
[2023-06-16] MEDS ORDERED: SUMAtriptan succinate 6 MG/0.5 ML VIAL SQ STA (06:47)
[2023-06-16] MEDS ORDERED: MAGNESIUM SULFATE-D5W PMX 1 GM in DEXTROSE/WATER 1 100ML.BAG IVPB ONE (06:47)
--- NOTE | 2023-06-16 06:55 | ED ---
Headache HPI - General Chief Complaint: Headache Stated Complaint: Migraine Time Seen by Provider: 06/16/23 06:37 Source: patient Mode of arrival: ambulatory Limitations: no limitations - History of Present Illness Initial Comments: 42-year-old female presenting with complaints of sinus pressure for 1 month and a headache that developed at 3 PM yesterday. Patient has a history of migraine headaches does take Topamax daily she did try Fioricet at 3 PM yesterday with no relief. Did take multiple Covid tests at home that were negative. States jaw is sore from clenching jaw. States this headache is similar to previous migraine headaches. She went to [facility] emergency room last night and discharge after 11 PM. Patient states she was given Zofran, Toradol, Benadryl and IV fluids. She believes she was also given steroids. She was prescribed doxycycline for sinus infection. She left there feeling worse. Decided to come to our ER for continued headache. Patient denies fever. Nausea has resolved. Patient has history of asthma, fibromyalgia, GERD, IBS, COPD, anemia, migraines, chronic back pain, TMJ, anxiety, bipolar, depression, PTSD, daily smoker MD Complaint: headache -: hour(s) (15) Onset Description: gradual Location: frontal, occipital Severity scale (1-10): 10 Quality: constant, similar to previous headaches Consistency: constant Improves With: nothing Context: recent URI (sinusitis for one month with hx of migraines) Associated Symptoms: nausea, photophobia Treatments Prior to Arrival: other ([facility] ER benadryl, zofran, toradol, steroids, IVF; tried fiorcet at home also took topamax) - Related Data Home Medications Medication Instructions Recorded Confirmed DULoxetine HCL [Cymbalta] 60 mg PO BID 02/26/20 06/14/23 buPROPion XL [Wellbutrin XL] 150 mg PO DAILY 08/14/20 06/14/23 ARIPiprazole [Abilify] 7.5 mg PO DAILY 11/04/20 06/14/23 Topiramate [Topiramate ER 50 mg PO BID 04/06/21 06/14/23 (Sprinkle)] Sucralfate [Carafate] 1 gm PO ACHS 05/09/21 06/14/23 Propranolol HCl [Propranolol HCl 60 mg PO DAILY 06/21/21 06/14/23 ER] Albuterol Sulfate [Proair Hfa] 1 - 2 puff INHALATION RT-Q6H PRN 08/15/21 06/14/23 Cyclobenzaprine [Flexeril] 2 tab PO BID 08/15/21 06/14/23 Ondansetron Odt [Zofran ODT] 4 mg PO Q8HR PRN 08/15/21 06/14/23 Amitriptyline HCl [Elavil] 20 mg PO HS 08/17/21 06/14/23 Previous Rx's Medication Instructions Recorded Pantoprazole Sodium [Protonix] 40 mg PO BID #30 tab 08/15/21 Rimegepant Sulfate [Nurtec Odt] 1 tab PO DIRECTED PRN #8 tab 06/16/23 Allergies Allergy/AdvReac Type Severity Reaction Status Date / Time adhesive Allergy Rash/Hives Verified 06/16/23 06:35 latex Allergy Rash/Hives Verified 06/16/23 06:35 morphine Allergy Unknown Verified 06/16/23 06:35 prochlorperazine Allergy Unknown Verified 06/16/23 06:35 [From Compazine] ciprofloxacin [From Cipro] AdvReac Hallucinati Verified 06/16/23 06:35 ons citalopram [From Celexa] AdvReac Suicidal Verified 06/16/23 06:35 thoughts diazepam [From Valium] AdvReac Hallucinati Verified 06/16/23 06:35 ons/Anxiety fluoxetine [From Prozac] AdvReac Suicidal Verified 06/16/23 06:35 thoughts metoclopramide [From Reglan] AdvReac Hallucinati Verified 06/16/23 06:35 ons/Anxiety paroxetine [From Paxil] AdvReac Suicidal Verified 06/16/23 06:35 thoughts Penicillins AdvReac Nausea & Verified 06/16/23 06:35 Vomiting Review of Systems ROS Statement: Those systems with pertinent positive or pertinent negative responses have been documented in the HPI. ROS Other: All systems not noted in ROS Statement are negative. Past Medical History Past Medical History: Asthma, Fibromyalgia, GERD/Reflux, GI Bleed Additional Past Medical History / Comment(s): covid + pneumonia 10/30/2020 complicated by respiratory failure, intubation, mechanical ventilation, bilateral pneumothoraces, COPD, Other hx: Primary immunodeficiency, antral ulcers, GI bleed, anemia, IBS, migraines, back pain, TMJ, seasonal allergies History of Any Multi-Drug Resistant Organisms: None Reported Past Surgical History: Breast Surgery, Ear Surgery, Uterine Ablation Additional Past Surgical History / Comment(s): EGDs, colonoscopies, bilateral breast augmentation, septoplasty, L ear trauma/reattached. Past Anesthesia/Blood Transfusion Reactions: No Reported Reaction, Motion Sickness Additional Past Anesthesia/Blood Transfusion Reaction / Comment(s): Pt has received blood in past without reaction. Past Psychological History: ADD/ADHD, Anxiety, Bipolar, Depression, PTSD Smoking Status: Current every day smoker Past Alcohol Use History: Daily Past Drug Use History: None Reported - Past Family History Father Additional Family Medical History / Comment(s): Father at age 51 from accidental drug overdose. Mother Family Medical History: Fibromyalgia Additional Family Medical History / Comment(s): Mother is alive at age 61 with history of primary immunodeficiency. Brother(s) Additional Family Medical History / Comment(s): Patient has one brother with history of alcohol abuse. Patient does not have any sisters. Patient has 2 children with no major medical problems. General Exam Limitations: no limitations General appearance: alert, in no apparent distress Head exam: Present: atraumatic, normocephalic, normal inspection Eye exam: Present: normal appearance, EOMI. Absent: scleral icterus, conjunctival injection, nystagmus, periorbital swelling, periorbital tenderness ENT exam: Present: mucous membranes moist Neck exam: Present: full ROM. Absent: tenderness, meningismus, lymphadenopathy, thyromegaly Respiratory exam: Absent: respiratory distress, accessory muscle use Cardiovascular Exam: Present: regular rate Extremities exam: Present: normal capillary refill Neurological exam: Present: alert, oriented X3, CN II-XII intact Expanded Patient oriented to: Present: person, place, time Speech: Present: fluid speech Cranial nerves: EOM's Intact: Normal, Gag Reflex: Normal, Tongue Deviation: Normal Motor strength exam: RUE: 5, LUE: 5, RLE: 5, LLE: 5 Eye Response: (4) open spontaneously Motor Response: (6) obeys commands Verbal Response: (5) oriented Arun Total: 15 Psychiatric exam: Present: normal affect, normal mood Skin exam: Present: warm, dry, normal color. Absent: cyanosis, diaphoretic, pallor Course Vital Signs 06/16/23 06:32 Temperature 98 F Pulse Rate 88 Respiratory 18 Rate Blood Pressure 107/62 O2 Sat by Pulse 100 Oximetry Medical Decision Making - Medical Decision Making Was pt. sent in by a medical professional or institution (ALVINO Roa, [employer], urgent care, hospital, or intermediate...) When possible be specific @ -No Did you speak to anyone other than the patient for history (EMS, parent, family, police, friend...)? What history was obtained from this source @ -No Did you review nursing and triage notes (agree or disagree)? Why? @ -I reviewed and agree with nursing and triage notes Were old charts reviewed (outside hosp., previous admission, EMS record, old EKG, old radiological studies, urgent care reports/EKG's, intermediate records)? Report findings @ -No old charts were reviewed Differential Diagnosis (chest pain, altered mental status, abdominal pain women, abdominal pain men, vaginal bleeding, weakness, fever, dyspnea, syncope, headache, dizziness, GI bleed, back pain, seizure, CVA, palpatations, mental health, musculoskeletal)? @ -Differential Headache: Migraine, tension, cluster, carbon monoxide, central venous thrombosis, pension karma temporal arteritis, acute closure glaucoma, intercranial hemorrhage, mastoiditis, sinusitis, head injury, this is not meant to be an all-inclusive list. EKG interpreted by me (3pts min.). @ -n/a X-rays interpreted by me (1pt min.). @ -None done CT interpreted by me (1pt min.). @ -None done U/S interpreted by me (1pt. min.). @ -None done What testing was considered but not performed or refused? (CT, X-rays, U/S, labs)? Why? @ -CT was considered however patient states similar to previous migraine headaches. Labs show no evidence of leukocytosis. Patient has no focal neurological deficits. What meds were considered but not given or refused? Why? @ -Considered antibiotics for sinusitis, patient was prescribed doxycycline [facility] emergency room last night Did you discuss the management of the patient with other professionals (professionals i.e. ALVINO oRa, [employer], lab, RT, psych nurse, nursing home social worker, circular saw filer, teacher, chief development officer, employment evaluator/case manager)? Give summary @ -No Was smoking cessation discussed for >3mins.? @ -No Was critical care preformed (if so, how long)? @ -No Were there social determinants of health that impacted care today? How? (Homelessness, low income, unemployed, alcoholism, drug addiction, transportation, low edu. Level, literacy, decrease access to med. care, longterm, rehab)? @ -No Was there de-escalation of care discussed even if they declined (Discuss DNR or withdrawal of care, Hospice)? DNR status @ -No What co-morbidities impacted this encounter? (DM, HTN, Smoking, COPD, CAD, Cancer, CVA, ARF, Chemo, Hep., AIDS, mental health diagnosis, sleep apnea, morbid obesity)? @ -Patient has history of asthma, fibromyalgia, GERD, IBS, COPD, anemia, migra richar, chronic back pain, TMJ, anxiety, bipolar, depression, PTSD, daily smoker Was patient admitted / discharged? Hospital course, mention meds given and route, prescriptions, significant lab abnormalities, going to OR and other pertinent info. @ -Discharged 42-year-old female presenting with complaints of sinus pressure for 1 month and a headache that developed at 3 PM yesterday. Patient has a history of migraine headaches does take Topamax daily she did try Fioricet at 3 PM yesterday with no relief. Did take multiple Covid tests at home that were negative. States jaw is sore from clenching jaw. States this headache is similar to previous migraine headaches. She went to [facility] emergency room last night and discharge after 11 PM. Patient states she was given Zofran, Toradol, Benadryl and IV fluids. She believes she was also given steroids. She was prescribed doxycycline for sinus infection. She left there feeling worse. Decided to come to our ER for continued headache. Patient denies fever. Nausea has resolved. On physical exam patient has no focal neurological deficits. Vital signs are stable. Labs show evidence of anemia, has a history of anemia with previous readings this year in March 28.3 and June 04.3. No evidence of leukocytosis. Patient was given IV fluids, droperidol, magnesium and sumatriptan. Patient observed sleeping comfortably on the cart. She was advised of her lab results. Directed to take the doxycycline as prescribed by a previous ER for sinusitis. She'll be discharged home with prescription for Nurtec and directed to follow up with primary care doctor and neurologist. Return if any new or concerning symptoms. She is agreeable to this plan of care. Case discussed with Dr. Neri. Undiagnosed new problem with uncertain prognosis? @ -No Drug Therapy requiring intensive monitoring for toxicity (Heparin, Nitro, Insulin, Cardizem)? @ -No Were any procedures done? @ -No Diagnosis/symptom? @ -Migraine headache Acute, or Chronic, or Acute on Chronic? @ -Acute Uncomplicated (without systemic symptoms) or Complicated (systemic symptoms)? @ -Uncomplicated Side effects of treatment? @ -No Exacerbation, Progression, or Severe Exacerbation? @ -No Poses a threat to life or bodily function? How? (Chest pain, [place], CO, pneumonia, PE, COPD, DKA, ARF, appy, cholecystitis, CVA, Diverticulitis, Homicidal, Suicidal, threat to staff... and all critical care pts) @ -No - Lab Data Result diagrams: 06/16/23 07:08 06/16/23 07:08 Lab Results 06/16/23 06/16/23 Range/Units 07:08 07:08 WBC 7.0 (3.8-10.6) k/uL RBC 3.42 L (3.80-5.40) m/uL Hgb 8.9 L (11.4-16.0) gm/dL Hct 28.9 L (34.0-46.0) % MCV 84.3 (80.0-100.0) fL MCH 25.8 (25.0-35.0) pg MCHC 30.7 L (31.0-37.0) g/dL RDW 16.7 H (11.5-15.5) % Plt Count 431 (150-450) k/uL MPV 7.4 Neutrophils % 76 % Lymphocytes % 19 % Monocytes % 3 % Eosinophils % 0 % Basophils % 0 % Neutrophils # 5.4 (1.3-7.7) k/uL Lymphocytes # 1.3 (1.0-4.8) k/uL Monocytes # 0.2 (0-1.0) k/uL Eosinophils # 0.0 (0-0.7) k/uL Basophils # 0.0 (0-0.2) k/uL Hypochromasia Marked Poikilocytosis Slight Anisocytosis Slight Sodium 138 (137-145) mmol/L Potassium 3.9 (3.5-5.1) mmol/L Chloride 109 H (98-107) mmol/L Carbon Dioxide 18 L (22-30) mmol/L Anion Gap 11 mmol/L BUN 14 (7-17) mg/dL Creatinine 0.71 (0.52-1.04) mg/dL Est GFR (CKD-EPI)AfAm >90 (>60 ml/min/1.73 sqM) Est GFR (CKD-EPI)NonAf >90 (>60 ml/min/1.73 sqM) Glucose 112 H (74-99) mg/dL Calcium 9.5 (8.4-10.2) mg/dL Total Bilirubin 0.3 (0.2-1.3) mg/dL AST 28 (14-36) U/L ALT 20 (4-34) U/L Alkaline Phosphatase 85 (38-126) U/L Total Protein 6.8 (6.3-8.2) g/dL Albumin 3.9 (3.5-5.0) g/dL Disposition Clinical Impression: Headache Disposition: HOME SELF-CARE Condition: Good Instructions (If sedation given, give patient instructions): Acute Headache (ED) Additional Instructions: Continue taking Topamax as prescribed. Take Nurtec as needed. Follow-up with the primary care doctor and neurologist next week. Return to the emergency room with any new or concerning symptoms. Prescriptions: Rimegepant Sulfate [Nurtec Odt] 1 tab PO DIRECTED PRN #8 tab PRN Reason: Migraine Headache Is patient prescribed a controlled substance at d/c from ED?: No Referrals: Patricia Gonzalez MD [Primary Care Provider] - 1-2 days Time of Disposition: 07:50
[2023-06-16 07:20] LABS: Anisocytosis Slight; Basophils % (A) 0 %; Eosinophils % (A) 0 %; HCT 28.9 % (34.0-46.0); HGB 8.9 gm/dL (11.4-16.0); Hypochromasia Marked; Lymphocytes # (A) 1.3 k/uL (1.0-4.8); Lymphocytes % (A) 19 %; MCH 25.8 pg (25.0-35.0); MCHC 30.7 g/dL (31.0-37.0); MCV 84.3 fL (80.0-100.0); Mean Platelet Volume 7.4; Monocytes # (A) 0.2 k/uL (0-1.0); Monocytes % (A) 3 %; Neutrophils # (A) 5.4 k/uL (1.3-7.7); Neutrophils % (A) 76 %; Platelet Count 431 k/uL (150-450); Poikilocytosis Slight; RBC 3.42 m/uL (3.80-5.40); RDW 16.7 % (11.5-15.5)
[2023-06-16 07:34] LABS: ALT 20 U/L (4-34); AST 28 U/L (14-36); African American GFR (CKD) >90 (>60 ml/min/1.73 sqM); Albumin 3.9 g/dL (3.5-5.0); Alkaline Phosphatase 85 U/L (38-126); Anion Gap 11 mmol/L; Blood Urea Nitrogen 14 mg/dL (7-17); Calcium 9.5 mg/dL (8.4-10.2); Carbon Dioxide 18 mmol/L (22-30); Chloride 109 mmol/L (98-107); Glucose 112 mg/dL (74-99); Non-African American GFR(CKD) >90 (>60 ml/min/1.73 sqM); Potassium 3.9 mmol/L (3.5-5.1); Sodium 138 mmol/L (137-145); Total Bilirubin 0.3 mg/dL (0.2-1.3); Total Protein 6.8 g/dL (6.3-8.2)
== END 2023-06-16 08:08 | disposition home or self-care (01) ==
LOC: EC 06:21
DX: G43.909 Migraine, unspecified, not intractable, without status migrainosus (principal); D64.9 Anemia, unspecified; J44.9 Chronic obstructive pulmonary disease, unspecified; K21.9 Gastro-esophageal reflux disease without esophagitis; Z86.16 Personal history of COVID-19; F31.9 Bipolar disorder, unspecified; F41.9 Anxiety disorder, unspecified; F17.200 Nicotine dependence, unspecified, uncomplicated; Z79.899 Other long term (current) drug therapy; Z88.0 Allergy status to penicillin; Z88.1 Allergy status to other antibiotic agents; Z88.5 Allergy status to narcotic agent; Z88.8 Allergy status to other drugs, medicaments and biological substances; Z91.040 Latex allergy status; Z91.09 Other allergy status, other than to drugs and biological substances
CPT/HCPCS: 36415; 80053; 85025; 99283; 96365; 96375; 96372; J3030; J3475; J1790

== ENCOUNTER 2023-06-28 03:16 | Emergency (ER) | payer OTHER ==
[2023-06-28 03:42] VITALS: RESP 18; TEMP 97.9
[2023-06-28 03:47] LABS: Amorphous Sediment,Urine Rare /hpf; Appearance,Urine Cloudy (Clear); Bilirubin,Urine Negative (Negative); Blood,Urine Negative (Negative); Color,Urine Yellow; Glucose,Urine (UA) Negative (Negative); Hyaline Casts,Urine 3 /lpf (0-2); Ketones,Urine Negative (Negative); Leukocyte Esterase,Urine Small (Negative); Mucus,Urine Few /hpf; Nitrite,Urine Negative (Negative); Protein,Urine Trace (Negative); RBC,Urine 6 /hpf (0-5); Specific Gravity,Urine 1.026 (1.001-1.035); Squamous Epithelial Cell,Urine 26 /hpf (0-4); Urobilinogen,Urine <2.0 mg/dL (<2.0); WBC,Urine 3 /hpf (0-5)
[2023-06-28] MEDS ORDERED: IPRATROPIUM-ALBUTEROL 3 ML NEB INHALATION STA (04:35)
[2023-06-28] MEDS ORDERED: SODIUM CHLORIDE 0.9% 1,000 ML IV STA ×2 (04:35→05:38)
[2023-06-28] MEDS ORDERED: HYDROmorphone 0.5 MG/0.5 ML SYRINGE IVP STA (04:35)
--- NOTE | 2023-06-28 04:36 | ED ---
URI HPI - General Chief Complaint: Upper Respiratory Infection Stated Complaint: Cough, Migraine Time Seen by Provider: 06/28/23 04:11 Source: patient, RN notes reviewed, old records reviewed Mode of arrival: ambulatory Limitations: no limitations - History of Present Illness Initial Comments: This is a 42-year-old female ER today for evaluation of cough congestion multiple complaints generally not feeling well. Patient has otherwise no travel history no sick contacts and does have a long history of coronavirus. No recent coronavirus diagnosis. Patient states she thinks she may chest have bronchitis. The patient's cough she is also complaining of a migraine which does get recurrent migraines MD Complaint: cough, sore throat, other (Migraine headache) -: days(s) (2) Severity: moderate Quality: dull, aching Consistency: intermittent Improves With: nothing Worsens With: nothing Associated Symptoms: chills, myalgias, cough, shortness of breath - Related Data Home Medications Medication Instructions Recorded Confirmed DULoxetine HCL [Cymbalta] 60 mg PO BID 02/26/20 07/05/23 buPROPion XL [Wellbutrin XL] 150 mg PO DAILY 08/14/20 07/05/23 ARIPiprazole [Abilify] 7.5 mg PO DAILY 11/04/20 07/05/23 Topiramate [Topiramate ER 50 mg PO BID 04/06/21 07/05/23 (Sprinkle)] Sucralfate [Carafate] 1 gm PO ACHS 05/09/21 07/05/23 Propranolol HCl [Propranolol HCl 60 mg PO DAILY 06/21/21 07/05/23 ER] Albuterol Sulfate [Proair Hfa] 1 - 2 puff INHALATION RT-Q6H PRN 08/15/21 07/05/23 Cyclobenzaprine [Flexeril] 2 tab PO BID 08/15/21 07/05/23 Ondansetron Odt [Zofran ODT] 4 mg PO Q8HR PRN 08/15/21 07/05/23 Amitriptyline HCl [Elavil] 20 mg PO HS 08/17/21 07/05/23 Previous Rx's Medication Instructions Recorded Pantoprazole Sodium [Protonix] 40 mg PO BID #30 tab 08/15/21 Rimegepant Sulfate [Nurtec Odt] 1 tab PO DIRECTED PRN #8 tab 06/16/23 Albuterol Sulfate [Albuterol 1 puff PO Q4-6H PRN #8.5 gm 06/29/23 Sulfate Hfa] Ketorolac [Toradol] 10 mg PO Q6HR PRN #15 tab 06/29/23 Ondansetron Odt [Zofran Odt] 4 mg PO Q8HR PRN #20 tab 06/29/23 guaiFENesin-Coden 100-10MG/5ML 10 ml PO Q4H PRN 3 Days #180 ml 06/29/23 [Robitussin AC] Allergies Allergy/AdvReac Type Severity Reaction Status Date / Time adhesive Allergy Rash/Hives Verified 07/05/23 11:16 latex Allergy Rash/Hives Verified 07/05/23 11:16 morphine Allergy Unknown Verified 07/05/23 11:16 prochlorperazine Allergy Unknown Verified 07/05/23 11:16 [From Compazine] ciprofloxacin [From Cipro] AdvReac Hallucinati Verified 07/05/23 11:16 ons citalopram [From Celexa] AdvReac Suicidal Verified 07/05/23 11:16 thoughts diazepam [From Valium] AdvReac Hallucinati Verified 07/05/23 11:16 ons/Anxiety fluoxetine [From Prozac] AdvReac Suicidal Verified 07/05/23 11:16 thoughts metoclopramide [From Reglan] AdvReac Hallucinati Verified 07/05/23 11:16 ons/Anxiety paroxetine [From Paxil] AdvReac Suicidal Verified 07/05/23 11:16 thoughts Penicillins AdvReac Nausea & Verified 07/05/23 11:16 Vomiting Review of Systems ROS Statement: Those systems with pertinent positive or pertinent negative responses have been documented in the HPI. ROS Other: All systems not noted in ROS Statement are negative. Past Medical History Past Medical History: Asthma, Fibromyalgia, GERD/Reflux, GI Bleed Additional Past Medical History / Comment(s): covid + pneumonia 10/30/2020 complicated by respiratory failure, intubation, mechanical ventilation, bilateral pneumothoraces, COPD, Other hx: Primary immunodeficiency, antral ulcers, GI bleed, anemia, IBS, migraines, back pain, TMJ, seasonal allergies History of Any Multi-Drug Resistant Organisms: None Reported Past Surgical History: Breast Surgery, Ear Surgery, Uterine Ablation Additional Past Surgical History / Comment(s): EGDs, colonoscopies, bilateral breast augmentation, septoplasty, L ear trauma/reattached. Past Anesthesia/Blood Transfusion Reactions: No Reported Reaction, Motion Sickness Additional Past Anesthesia/Blood Transfusion Reaction / Comment(s): Pt has received blood in past without reaction. Past Psychological History: ADD/ADHD, Anxiety, Bipolar, Depression, PTSD Smoking Status: Current every day smoker Past Alcohol Use History: Daily Past Drug Use History: None Reported - Past Family History Father Additional Family Medical History / Comment(s): Father at age 51 from accidental drug overdose. Mother Family Medical History: Fibromyalgia Additional Family Medical History / Comment(s): Mother is alive at age 61 with history of primary immunodeficiency. Brother(s) Additional Family Medical History / Comment(s): Patient has one brother with history of alcohol abuse. Patient does not have any sisters. Patient has 2 children with no major medical problems. General Exam Limitations: no limitations General appearance: alert, in no apparent distress Head exam: Present: atraumatic, normocephalic, normal inspection Eye exam: Present: normal appearance, PERRL, EOMI. Absent: scleral icterus, conjunctival injection, periorbital swelling ENT exam: Present: normal exam, mucous membranes moist Neck exam: Present: normal inspection. Absent: tenderness, meningismus, lymphadenopathy Respiratory exam: Present: normal lung sounds bilaterally. Absent: respiratory distress, wheezes, rales, rhonchi, stridor Cardiovascular Exam: Present: regular rate, normal rhythm, normal heart sounds. Absent: systolic murmur, diastolic murmur, rubs, gallop, clicks GI/Abdominal exam: Present: soft, normal bowel sounds. Absent: distended, tenderness, guarding, rebound, rigid Extremities exam: Present: normal inspection, full ROM, normal capillary refill. Absent: tenderness, pedal edema, joint swelling, calf tenderness Back exam: Present: normal inspection Neurological exam: Present: alert, oriented X3, CN II-XII intact Psychiatric exam: Present: normal affect, normal mood Skin exam: Present: warm, dry, intact, normal color. Absent: rash Course Vital Signs 06/28/23 06/28/23 06/28/23 03:25 04:58 05:18 Temperature 97.9 F Pulse Rate 101 H 90 109 H Respiratory 18 Rate Blood Pressure 111/74 O2 Sat by Pulse 97 Oximetry 06/28/23 06/28/23 05:42 06:30 Temperature Pulse Rate 100 101 H Respiratory 18 18 Rate Blood Pressure 110/77 110/71 O2 Sat by Pulse 97 95 Oximetry - Reevaluation(s) Reevaluation #1: 06/28/23 05:40 Medical records reviewed Reevaluation #2: 06/28/23 05:40 Patient's symptoms improving Reevaluation #3: Patient informed results questions answered Reevaluation #4: 06/28/23 05:40 Was pt. sent in by a medical professional or institution (, [facility], [facility], urgent care, hospital, or fdc...) When possible be specific @ -no Did you speak to anyone other than the patient for history (EMS, parent, family, police, friend...)? What history was obtained from this source @ -no Did you review nursing and triage notes (agree or disagree)? Why? @ -agree Are old charts reviewed (outside hosp., previous admission, EMS record, old EKG, old radiological studies, urgent care reports/EKG's, fdc records)? Report findings @ -yes Differential Diagnosis (chest pain, altered mental status, abdominal pain women, abdominal pain men, vaginal bleeding, weakness, fever, dyspnea, syncope, headache, dizziness, GI bleed, back pain, seizure, CVA, palpatations, mental health, musculoskeletal)? @ -prior EKG interpreted by me (3pts min.). @ -yes X-rays interpreted by me (1pt min.). @ -yes CT interpreted by me (1pt min.). @ -no U/S interpreted by me (1pt. min.). @ -no What testing was considered but not performed or refused? (CT, X-rays, U/S, labs)? Why? @ -none What meds were considered but not given or refused? Why? @ -none Did you discuss the management of the patient with other professionals (professionals i.e. [facility], [facility], lab, RT, psych nurse, social sciences lecturer, centrifugal operator, teacher, articulation officer, onsite case manager)? Give summary @ -no Was smoking cessation discussed for >3mins.? @ -no Was critical care preformed (if so, how long)? @ -no Were there social determinants of health that impacted care today? How? (Homelessness, low income, unemployed, alcoholism, drug addiction, transportatio n, low edu. Level, literacy, decrease access to med. care, intermediate, rehab)? @ -none Was there de-escalation of care discussed even if they declined (Discuss DNR or withdrawal of care, Hospice)? DNR status @ -no What co-morbidities impacted this encounter? (DM, HTN, Smoking, COPD, CAD, Cancer, CVA, ARF, Chemo, Hep., AIDS, mental health diagnosis, sleep apnea, morbid obesity)? @ -none Was patient admitted / discharged? Hospital course, mention meds given and route, prescriptions, significant lab abnormalities, going to OR and other pertinent info. @ - 42 female to the emergency department for evaluation of headache weakness viral upper respiratory infection. Patient is no acute findings here in the ER feels improved and can be discharged home Discharge Undiagnosed new problem with uncertain prognosis? @ -no Drug Therapy requiring intensive monitoring for toxicity (Heparin, Nitro, Insuli n, Cardizem)? @ -no Were any procedures done? @ -no Diagnosis/symptom? @ -Upper respiratory infection, weakness headache Acute, or Chronic, or Acute on Chronic? @ -Acute Uncomplicated (without systemic symptoms) or Complicated (systemic symptoms)? @ -Complicated Side effects of treatment? @ -no Exacerbation, Progression, or Severe Exacerbation? @ -exacerbation Poses a threat to life or bodily function? How? (Chest pain, USA, PR, pneumonia, PE, COPD, DKA, ARF, appy, cholecystitis, CVA, Diverticulitis, Homicidal, Suicidal, threat to staff... and all critical care pts) @ -no Reevaluation #5: 06/28/23 05:40 Differential Dyspnea: Coronary syndrome, arrhythmia, tamponade, asthma, COPD, pulmonary embolism, pneumonia, pneumothorax, pulmonary effusion, anaphylaxis, diabetic ketoacidosis, flailed chest, pulmonary contusion, diaphragmatic rupture, anemia, neuromuscular, this is not meant to be an all-inclusive list. Differential Headache: Migraine, tension, cluster, carbon monoxide, central venous thrombosis, pension karma temporal arteritis, acute closure glaucoma, intercranial hemorrhage, mastoiditis, sinusitis, head injury, this is not meant to be an all-inclusive list. Medical Decision Making - Medical Decision Making 42 female to the emergency department for evaluation of headache weakness viral upper respiratory infection. Patient is no acute findings here in the ER feels improved and can be discharged home - Lab Data Result diagrams: 06/28/23 04:46 06/28/23 04:46 Lab Results 06/28/23 06/28/23 06/28/23 Range/Units 03:31 03:31 04:46 WBC 6.2 (3.8-10.6) k/uL RBC 3.29 L (3.80-5.40) m/uL Hgb 9.3 L (11.4-16.0) gm/dL Hct 29.8 L (34.0-46.0) % MCV 90.7 D (80.0-100.0) fL MCH 28.3 (25.0-35.0) pg MCHC 31.2 (31.0-37.0) g/dL RDW 24.6 H (11.5-15.5) % Plt Count 332 (150-450) k/uL MPV 7.2 Neutrophils % 59 % Lymphocytes % 26 % Monocytes % 7 % Eosinophils % 4 % Basophils % 0 % Neutrophils # 3.7 (1.3-7.7) k/uL Lymphocytes # 1.6 (1.0-4.8) k/uL Monocytes # 0.4 (0-1.0) k/uL Eosinophils # 0.2 (0-0.7) k/uL Basophils # 0.0 (0-0.2) k/uL Hypochromasia Marked Anisocytosis Marked Macrocytosis Moderate PT (10.0-12.5) sec INR (<1.2) APTT (22.0-30.0) sec Sodium (137-145) mmol/L Potassium (3.5-5.1) mmol/L Chloride (98-107) mmol/L Carbon Dioxide (22-30) mmol/L Anion Gap mmol/L BUN (7-17) mg/dL Creatinine (0.52-1.04) mg/dL Est GFR (CKD-EPI)AfAm (>60 ml/min/1.73 sqM) Est GFR (CKD-EPI)NonAf (>60 ml/min/1.73 sqM) Glucose (74-99) mg/dL Plasma Lactic Acid Domo (0.7-2.0) mmol/L Calcium (8.4-10.2) mg/dL Magnesium (1.6-2.3) mg/dL Total Bilirubin (0.2-1.3) mg/dL AST (14-36) U/L ALT (4-34) U/L Alkaline Phosphatase (38-126) U/L Troponin I (0.000-0.034) ng/mL NT-Pro-B Natriuret Pep pg/mL Total Protein (6.3-8.2) g/dL Albumin (3.5-5.0) g/dL HCG, Qual Urine Color Yellow Urine Appearance Cloudy H (Clear) Urine pH 6.0 (5.0-8.0) Ur Specific [place] 1.026 (1.001-1.035) Urine Protein Trace H (Negative) Urine Glucose (UA) Negative (Negative) Urine Ketones Negative (Negative) Urine Blood Negative (Negative) Urine Nitrite Negative (Negative) Urine Bilirubin Negative (Negative) Urine Urobilinogen <2.0 (<2.0) mg/dL Ur Leukocyte Esterase Small H (Negative) Urine RBC 6 H (0-5) /hpf Urine WBC 3 (0-5) /hpf Ur Squamous Epith Cells 26 H (0-4) /hpf Amorphous Sediment Rare H (None) /hpf Hyaline Casts 3 H (0-2) /lpf Urine Mucus Few H (None) /hpf Urine HCG, Qual Not Detected (Not Detectd) Influenza Type A (PCR) (Not Detectd) Influenza Type B (PCR) (Not Detectd) RSV (PCR) (Not Detectd) SARS-CoV-2 (PCR) (Not Detectd) 06/28/23 06/28/23 06/28/23 Range/Units 04:46 04:46 04:46 WBC (3.8-10.6) k/uL RBC (3.80-5.40) m/uL Hgb (11.4-16.0) gm/dL Hct (34.0-46.0) % MCV (80.0-100.0) fL MCH (25.0-35.0) pg MCHC (31.0-37.0) g/dL RDW (11.5-15.5) % Plt Count (150-450) k/uL MPV Neutrophils % % Lymphocytes % % Monocytes % % Eosinophils % % Basophils % % Neutrophils # (1.3-7.7) k/uL Lymphocytes # (1.0-4.8) k/uL Monocytes # (0-1.0) k/uL Eosinophils # (0-0.7) k/uL Basophils # (0-0.2) k/uL Hypochromasia Anisocytosis Macrocytosis PT 10.1 (10.0-12.5) sec INR 0.9 (<1.2) APTT 22.1 (22.0-30.0) sec Sodium 140 (137-145) mmol/L Potassium 3.5 (3.5-5.1) mmol/L Chloride 109 H (98-107) mmol/L Carbon Dioxide 20 L (22-30) mmol/L Anion Gap 11 mmol/L BUN 20 H (7-17) mg/dL Creatinine 0.67 (0.52-1.04) mg/dL Est GFR (CKD-EPI)AfAm >90 (>60 ml/min/1.73 sqM) Est GFR (CKD-EPI)NonAf >90 (>60 ml/min/1.73 sqM) Glucose 93 (74-99) mg/dL Plasma Lactic Acid Domo 1.0 (0.7-2.0) mmol/L Calcium 9.5 (8.4-10.2) mg/dL Magnesium 1.7 (1.6-2.3) mg/dL Total Bilirubin 0.3 (0.2-1.3) mg/dL AST 44 H (14-36) U/L ALT 26 (4-34) U/L Alkaline Phosphatase 133 H (38-126) U/L Troponin I (0.000-0.034) ng/mL NT-Pro-B Natriuret Pep 56 pg/mL Total Protein 6.1 L (6.3-8.2) g/dL Albumin 3.5 (3.5-5.0) g/dL HCG, Qual Not Detected Urine Color Urine Appearance (Clear) Urine pH (5.0-8.0) Ur Specific [place] (1.001-1.035) Urine Protein (Negative) Urine Glucose (UA) (Negative) Urine Ketones (Negative) Urine Blood (Negative) Urine Nitrite (Negative) Urine Bilirubin (Negative) Urine Urobilinogen (<2.0) mg/dL Ur Leukocyte Esterase (Negative) Urine RBC (0-5) /hpf Urine WBC (0-5) /hpf Ur Squamous Epith Cells (0-4) /hpf Amorphous Sediment (None) /hpf Hyaline Casts (0-2) /lpf Urine Mucus (None) /hpf Urine HCG, Qual (Not Detectd) Influenza Type A (PCR) (Not Detectd) Influenza Type B (PCR) (Not Detectd) RSV (PCR) (Not Detectd) SARS-CoV-2 (PCR) (Not Detectd) 06/28/23 06/28/23 Range/Units 04:46 04:46 WBC (3.8-10.6) k/uL RBC (3.80-5.40) m/uL Hgb (11.4-16.0) gm/dL Hct (34.0-46.0) % MCV (80.0-100.0) fL MCH (25.0-35.0) pg MCHC (31.0-37.0) g/dL RDW (11.5-15.5) % Plt Count (150-450) k/uL MPV Neutrophils % % Lymphocytes % % Monocytes % % Eosinophils % % Basophils % % Neutrophils # (1.3-7.7) k/uL Lymphocytes # (1.0-4.8) k/uL Monocytes # (0-1.0) k/uL Eosinophils # (0-0.7) k/uL Basophils # (0-0.2) k/uL Hypochromasia Anisocytosis Macrocytosis PT (10.0-12.5) sec INR (<1.2) APTT (22.0-30.0) sec Sodium (137-145) mmol/L Potassium (3.5-5.1) mmol/L Chloride (98-107) mmol/L Carbon Dioxide (22-30) mmol/L Anion Gap mmol/L BUN (7-17) mg/dL Creatinine (0.52-1.04) mg/dL Est GFR (CKD-EPI)AfAm (>60 ml/min/1.73 sqM) Est GFR (CKD-EPI)NonAf (>60 ml/min/1.73 sqM) Glucose (74-99) mg/dL Plasma Lactic Acid Domo (0.7-2.0) mmol/L Calcium (8.4-10.2) mg/dL Magnesium (1.6-2.3) mg/dL Total Bilirubin (0.2-1.3) mg/dL AST (14-36) U/L ALT (4-34) U/L Alkaline Phosphatase (38-126) U/L Troponin I <0.012 (0.000-0.034) ng/mL NT-Pro-B Natriuret Pep pg/mL Total Protein (6.3-8.2) g/dL Albumin (3.5-5.0) g/dL HCG, Qual Urine Color Urine Appearance (Clear) Urine pH (5.0-8.0) Ur Specific [place] (1.001-1.035) Urine Protein (Negative) Urine Glucose (UA) (Negative) Urine Ketones (Negative) Urine Blood (Negative) Urine Nitrite (Negative) Urine Bilirubin (Negative) Urine Urobilinogen (<2.0) mg/dL Ur Leukocyte Esterase (Negative) Urine RBC (0-5) /hpf Urine WBC (0-5) /hpf Ur Squamous Epith Cells (0-4) /hpf Amorphous Sediment (None) /hpf Hyaline Casts (0-2) /lpf Urine Mucus (None) /hpf Urine HCG, Qual (Not Detectd) Influenza Type A (PCR) Not Detected (Not Detectd) Influenza Type B (PCR) Not Detected (Not Detectd) RSV (PCR) Not Detected (Not Detectd) SARS-CoV-2 (PCR) Not Detected (Not Detectd) - EKG Data -: EKG Interpreted by Me (EKG is sinus 77 ND 148 QRS 100 QTc 409) Disposition Clinical Impression: Headache, Weakness, Acute upper respiratory infection, Bronchitis Disposition: HOME SELF-CARE Condition: Good Instructions (If sedation given, give patient instructions): Upper Respiratory Infection (ED) Is patient prescribed a controlled substance at d/c from ED?: No Referrals: Patricia Gonzalez MD [Primary Care Provider] - 1-2 days Time of Disposition: 06:30
[2023-06-28 05:19] LABS: ALT 26 U/L (4-34); AST 44 U/L (14-36); African American GFR (CKD) >90 (>60 ml/min/1.73 sqM); Albumin 3.5 g/dL (3.5-5.0); Alkaline Phosphatase 133 U/L (38-126); Anion Gap 11 mmol/L; Anisocytosis Marked; Basophils % (A) 0 %; Blood Urea Nitrogen 20 mg/dL (7-17); Calcium 9.5 mg/dL (8.4-10.2); Carbon Dioxide 20 mmol/L (22-30); Chloride 109 mmol/L (98-107); Eosinophils # (A) 0.2 k/uL (0-0.7); Eosinophils % (A) 4 %; Glucose 93 mg/dL (74-99); HCT 29.8 % (34.0-46.0); HGB 9.3 gm/dL (11.4-16.0); Hypochromasia Marked; Lymphocytes # (A) 1.6 k/uL (1.0-4.8); Lymphocytes % (A) 26 %; MCH 28.3 pg (25.0-35.0); MCHC 31.2 g/dL (31.0-37.0); Macrocytosis Moderate; Magnesium 1.7 mg/dL (1.6-2.3); Mean Platelet Volume 7.2; Monocytes # (A) 0.4 k/uL (0-1.0); Monocytes % (A) 7 %; Neutrophils # (A) 3.7 k/uL (1.3-7.7); Neutrophils % (A) 59 %; Non-African American GFR(CKD) >90 (>60 ml/min/1.73 sqM); Platelet Count 332 k/uL (150-450); Potassium 3.5 mmol/L (3.5-5.1); RBC 3.29 m/uL (3.80-5.40); RDW 24.6 % (11.5-15.5); Sodium 140 mmol/L (137-145); Total Bilirubin 0.3 mg/dL (0.2-1.3); Total Protein 6.1 g/dL (6.3-8.2); WBC 6.2 k/uL (3.8-10.6)
[2023-06-28 05:22] LABS: MCV 90.7 fL (80.0-100.0)
[2023-06-28 05:28] LABS: NT-Pro-B-Type Natriuretic Pept 56 pg/mL
[2023-06-28] MEDS ORDERED: ONDANSETRON 4 MG/2 ML VIAL IVP STA (05:28)
[2023-06-28 05:33] LABS: INR 0.9 (<1.2); Partial Thromboplastin Time 22.1 sec (22.0-30.0); Prothrombin Time 10.1 sec (10.0-12.5)
[2023-06-28] MEDS ORDERED: diphenhydrAMINE 50 MG/ML 1 ML VIAL IVP STA (05:38)
[2023-06-28] MEDS ORDERED: KETOROLAC 15 MG/ML 1 ML VIAL IVP STA (05:38)
[2023-06-28] MEDS ORDERED: HYDROmorphone 1 MG/ML 1 ML SYRINGE IVP STA (05:38)
[2023-06-28 05:41] LABS: HCG,Qualitative Serum Not Detected
[2023-06-28] MEDS ORDERED: LORazepam 2 MG/ML INJ IV STA (06:23)
[2023-06-28 06:38] VITALS: BP 110/71; PULSE 101
--- NOTE | 2023-06-28 07:15 | XR ---
EXAMINATION TYPE: XR chest 2V DATE OF EXAM: 06/28/2023 3:48 AM CLINICAL INDICATION:Female, 42 years old with history of cough; [facility] COMPARISON: Chest radiographs from 08/03/2021 TECHNIQUE: XR chest 2V Frontal and lateral views of the chest. FINDINGS: Lungs/Pleura: There is no evidence of pleural effusion, focal consolidation, or pneumothorax. Pulmonary vascularity: Unremarkable. Heart/mediastinum: Cardiomediastinal silhouette is unremarkable. Musculoskeletal: No acute osseous pathology. IMPRESSION: No acute cardiopulmonary disease/process.
== END 2023-06-28 06:40 | disposition home or self-care (01) ==
LOC: EC 03:16
DX: J06.9 Acute upper respiratory infection, unspecified (principal); R53.1 Weakness; J45.909 Unspecified asthma, uncomplicated; F41.9 Anxiety disorder, unspecified; F31.9 Bipolar disorder, unspecified; F90.9 Attention-deficit hyperactivity disorder, unspecified type; F17.200 Nicotine dependence, unspecified, uncomplicated; Z86.16 Personal history of COVID-19; Z79.899 Other long term (current) drug therapy; Z20.822 Contact with and (suspected) exposure to COVID-19; Z88.0 Allergy status to penicillin; Z91.040 Latex allergy status; Z88.5 Allergy status to narcotic agent; Z88.8 Allergy status to other drugs, medicaments and biological substances; Z91.09 Other allergy status, other than to drugs and biological substances; Z88.1 Allergy status to other antibiotic agents
CPT/HCPCS: 36415; 94640; 93005; 83880; 80053; 83605; 83735; 84484; 85025; 85610; 85730; 81001; 81025; 84703; 87636; 71046; 99284; 96374; 96375 ×4; 96376; 96361 ×2; J2060; J1200; J2405; J1170 ×2; J1885

== ENCOUNTER 2023-06-29 07:40 | Emergency (ER) | payer OTHER ==
[2023-06-29] MEDS ORDERED: guaiFENesin-Coden 100-10MG/5ML 10 ML CUP PO ONE (08:02)
[2023-06-29] MEDS ORDERED: DEXAMETHASONE SOD PHOSPHATE 10 MG/ML 1 ML VIAL IVP STA (08:02)
[2023-06-29] MEDS ORDERED: KETOROLAC 15 MG/ML 1 ML VIAL IVP STA ×2 (08:02→09:38)
[2023-06-29] MEDS ORDERED: diphenhydrAMINE 50 MG/ML 1 ML VIAL IVP STA (08:02)
[2023-06-29] MEDS ORDERED: IPRATROPIUM-ALBUTEROL 3 ML NEB INHALATION STA (08:16)
--- NOTE | 2023-06-29 08:18 | ED ---
Headache HPI - General Chief Complaint: Headache Stated Complaint: Headache Time Seen by Provider: 06/29/23 07:48 Source: patient, RN notes reviewed Mode of arrival: ambulatory Limitations: no limitations - History of Present Illness Initial Comments: This is a 42-year-old female who presents to the emergency department for a headache and coughing. Patient was treated here for a headache yesterday and discharged home when symptoms resolved. However, she has been dealing with a cough and congestion over the last 3 days, and she has been unable to control the coughing, causing the headache to return. She is taking [id number] Robitussin with no relief in symptoms. Describes the cough as being productive with yellow sputum. Also reports facial pain and pressure. Reports minor shortness of breath related to being unable to control the coughing. Denies any chest pain. MD Complaint: headache - Related Data Home Medications Medication Instructions Recorded Confirmed RX: DULoxetine HCL [Cymbalta] 60 mg PO BID 02/26/20 06/21/23 RX: buPROPion XL [Wellbutrin XL] 150 mg PO DAILY 08/14/20 06/21/23 RX: ARIPiprazole [Abilify] 7.5 mg PO DAILY 11/04/20 06/21/23 RX: Topiramate [Topiramate ER 50 mg PO BID 04/06/21 06/21/23 (Sprinkle)] RX: Sucralfate [Carafate] 1 gm PO ACHS 05/09/21 06/21/23 RX: Propranolol HCl [Propranolol 60 mg PO DAILY 06/21/21 06/21/23 HCl ER] RX: Albuterol Sulfate [Proair Hfa] 1 - 2 puff INHALATION RT-Q6H PRN 08/15/21 06/21/23 RX: Cyclobenzaprine [Flexeril] 2 tab PO BID 08/15/21 06/21/23 RX: Ondansetron Odt [Zofran ODT] 4 mg PO Q8HR PRN 08/15/21 06/21/23 RX: Amitriptyline HCl [Elavil] 20 mg PO HS 08/17/21 06/21/23 Previous Rx's Medication Instructions Recorded RX: Pantoprazole Sodium [Protonix] 40 mg PO BID #30 tab 08/15/21 Rimegepant Sulfate [Nurtec Odt] 1 tab PO DIRECTED PRN #8 tab 06/16/23 Albuterol Sulfate [Albuterol 1 puff PO Q4-6H PRN #8.5 gm 06/29/23 Sulfate Hfa] Ketorolac [Toradol] 10 mg PO Q6HR PRN #15 tab 06/29/23 Ondansetron Odt [Zofran Odt] 4 mg PO Q8HR PRN #20 tab 06/29/23 guaiFENesin-Coden 100-10MG/5ML 10 ml PO Q4H PRN 3 Days #180 ml 06/29/23 [Robitussin AC] Allergies Allergy/AdvReac Type Severity Reaction Status Date / Time adhesive Allergy Rash/Hives Verified 06/29/23 07:45 latex Allergy Rash/Hives Verified 06/29/23 07:45 morphine Allergy Unknown Verified 06/29/23 07:45 prochlorperazine Allergy Unknown Verified 06/29/23 07:45 [From Compazine] ciprofloxacin [From Cipro] AdvReac Hallucinati Verified 06/29/23 07:45 ons citalopram [From Celexa] AdvReac Suicidal Verified 06/29/23 07:45 thoughts diazepam [From Valium] AdvReac Hallucinati Verified 06/29/23 07:45 ons/Anxiety fluoxetine [From Prozac] AdvReac Suicidal Verified 06/29/23 07:45 thoughts metoclopramide [From Reglan] AdvReac Hallucinati Verified 06/29/23 07:45 ons/Anxiety paroxetine [From Paxil] AdvReac Suicidal Verified 06/29/23 07:45 thoughts Penicillins AdvReac Nausea & Verified 06/29/23 07:45 Vomiting Review of Systems ROS Statement: Those systems with pertinent positive or pertinent negative responses have been documented in the HPI. ROS Other: All systems not noted in ROS Statement are negative. Past Medical History Past Medical History: Asthma, Fibromyalgia, GERD/Reflux, GI Bleed Additional Past Medical History / Comment(s): covid + pneumonia 10/30/2020 complicated by respiratory failure, intubation, mechanical ventilation, bilateral pneumothoraces, COPD, Other hx: Primary immunodeficiency, antral ulcers, GI bleed, anemia, IBS, migraines, back pain, TMJ, seasonal allergies History of Any Multi-Drug Resistant Organisms: None Reported Past Surgical History: Breast Surgery, Ear Surgery, Uterine Ablation Additional Past Surgical History / Comment(s): EGDs, colonoscopies, bilateral breast augmentation, septoplasty, L ear trauma/reattached. Past Anesthesia/Blood Transfusion Reactions: No Reported Reaction, Motion Sickness Additional Past Anesthesia/Blood Transfusion Reaction / Comment(s): Pt has received blood in past without reaction. Past Psychological History: ADD/ADHD, Anxiety, Bipolar, Depression, PTSD Smoking Status: Current every day smoker Past Alcohol Use History: Daily Past Drug Use History: None Reported - Past Family History Father Additional Family Medical History / Comment(s): Father at age 51 from accid ental drug overdose. Mother Family Medical History: Fibromyalgia Additional Family Medical History / Comment(s): Mother is alive at age 61 with history of primary immunodeficiency. Brother(s) Additional Family Medical History / Comment(s): Patient has one brother with history of alcohol abuse. Patient does not have any sisters. Patient has 2 children with no major medical problems. General Exam Limitations: no limitations General appearance: alert, in no apparent distress Head exam: Present: atraumatic, normocephalic, normal inspection Eye exam: Present: normal appearance, PERRL, EOMI. Absent: scleral icterus, conjunctival injection, periorbital swelling Respiratory exam: Present: normal lung sounds bilaterally. Absent: respiratory distress, wheezes, rales, rhonchi, stridor Cardiovascular Exam: Present: regular rate, normal rhythm, normal heart sounds. Absent: systolic murmur, diastolic murmur, rubs, gallop, clicks Neurological exam: Present: alert, oriented X3, CN II-XII intact Psychiatric exam: Present: normal affect, normal mood Skin exam: Present: warm, dry, intact, normal color. Absent: rash Course Vital Signs 06/29/23 06/29/23 06/29/23 07:43 08:52 09:08 Temperature 98.4 F Pulse Rate 88 88 90 Respiratory 20 Rate Blood Pressure 126/81 O2 Sat by Pulse 100 Oximetry 06/29/23 06/29/23 09:22 11:02 Temperature 98 F 98.1 F Pulse Rate 99 84 Respiratory 18 18 Rate Blood Pressure 120/78 116/75 O2 Sat by Pulse 98 99 Oximetry Medical Decision Making - Medical Decision Making This is a 42-year-old female who presents to the emergency department for a cough and headache. Was pt. sent in by a medical professional or institution? @ -No Did you speak to anyone other than the patient for history? @ -No Did you review nursing and triage notes? @ -Yes, and I agree, it is accurate with regards to the patient's symptoms. Were old charts reviewed? @ -Chest x-ray from yesterday revealing no acute findings. Differential Diagnosis? @ -Differential Headache: Migraine, tension, cluster, carbon monoxide, central venous thrombosis, pension karma temporal arteritis, acute closure glaucoma, intercranial hemorrhage, mastoiditis, sinusitis, head injury, this is not meant to be an all-inclusive list. EKG interpreted by me (3pts min.)? @ -Not obtained X-rays interpreted by me (1pt min.)? @ -Not obtained CT interpreted by me (1pt min.)? @ -Not obtained U/S interpreted by me (1pt. min.)? @ -Not obtained What testing was considered but not performed? (CT, X-rays, U/S, labs)? Why? @ -None What meds were considered but not given? Why? @ -None Did you discuss the management of the patient with other professionals? @ -No Did you reconcile home meds? @ -No Was smoking cessation discussed for >3mins.? @ -No Was critical care preformed (if so, how long)? @ -No Were there social determinants of health that impacted care today? How? (Homelessness, low income, unemployed, alcoholism, drug addiction, transpor tation, low edu. Level, literacy, decrease access to med. care, halfway, rehab)? @ -No Was there de-escalation of care discussed even if they declined? (Discuss DNR or withdrawal of care, Hospice)? @ -No What co-morbidities impacted this encounter? (DM, HTN, Smoking, COPD, CAD, Cancer, CVA, Hep., AIDS, mental health diagnosis, sleep apnea, morbid obesity)? @ -Asthma Was patient admitted / discharged? @ -Discharged. Given that the patient had blood work and imaging done yesterday, no additional workup was obtained. We were able to control her headache and coughing in the emergency department with a migraine cocktail and Robitussin-AC. Patient overall felt much better and was stable for discharge home. Prescription for Robitussin-AC, Toradol, Zofran, and an albuterol inhaler provided with dosing instructions reviewed. Otherwise advised close follow-up with her primary care provider. Undiagnosed new problem with uncertain prognosis? @ -None Drug Therapy requiring intensive monitoring for toxicity (Heparin, Nitro, Insulin, Cardizem)? @ -None Were any procedures done? @ -None Diagnosis/symptom? @ -Headache, viral URI Acute, or Chronic, or Acute on Chronic? @ -Acute Uncomplicated (without systemic symptoms) or Complicated (systemic symptoms)? @ -Uncomplicated Side effects of treatment? @ -None Exacerbation, Progression, or Severe Exacerbation] @ -Not applicable Poses a threat to life or bodily function? @ -No Return precautions reviewed in depth, the patient is instructed to return to the emergency department with any new, worsening, or concerning symptoms. Patient verbalized understanding. This case was discussed in detail with the attending ED physician, Dr. Hall. Presentation, findings, and treatment plan discussed in detail as well. Disposition Clinical Impression: Headache, Viral URI Disposition: HOME SELF-CARE Instructions (If sedation given, give patient instructions): Upper Respiratory Infection (ED), Acute Headache (ED) Additional Instructions: Return to the emergency department with any new, worsening, or concerning symptoms. You can take the Toradol up to every 6 hours as needed for pain relief. If you choose to take the Toradol, do not take any other anti- inflammatories such as ibuprofen, take one or the other. You can take the Zofran up to every 8 hours as needed for nausea and vomiting. You can use the cough medication every 4-6 hours as needed, however be aware that this may make you drowsy. The albuterol inhaler can also be used every 4-6 hours as needed for shortness of breath. Follow up with your primary care provider in 1-2 days. Prescriptions: Albuterol Sulfate [Albuterol Sulfate Hfa] 1 puff PO Q4-6H PRN #8.5 gm PRN Reason: Shortness Of Breath guaiFENesin-Coden 100-10MG/5ML [Robitussin AC] 10 ml PO Q4H PRN 3 Days #180 ml PRN Reason: Cough Ketorolac [Toradol] 10 mg PO Q6HR PRN #15 tab PRN Reason: Pain Ondansetron Odt [Zofran Odt] 4 mg PO Q8HR PRN #20 tab PRN Reason: Nausea And Vomiting Is patient prescribed a controlled substance at d/c from ED?: Yes When asked, does pt state using other controlled substances?: No If prescribed controlled substance>3 days was MAPS reviewed?: Prescribed <3 Days Referrals: Patricia Gonzalez MD [Primary Care Provider] - 1-2 days
[2023-06-29 09:38] VITALS: RESP 18
[2023-06-29] MEDS ORDERED: MAGNESIUM SULFATE-D5W PMX 1 GM in DEXTROSE/WATER 1 100ML.BAG IVPB ONE (09:38)
[2023-06-29] MEDS ORDERED: ONDANSETRON 4 MG/2 ML VIAL IVP STA (09:38)
[2023-06-29] MEDS ORDERED: HYDROmorphone 1 MG/ML 1 ML SYRINGE IVP STA (09:39)
[2023-06-29] MEDS ORDERED: ACETAMINOPHEN TAB 500 MG TAB PO STA (10:56)
[2023-06-29 11:17] VITALS: BP 116/75; PULSE 84; TEMP 98.1
== END 2023-06-29 11:16 | disposition home or self-care (01) ==
LOC: EC 07:40
DX: J06.9 Acute upper respiratory infection, unspecified (principal); R51.9 Headache, unspecified; K21.9 Gastro-esophageal reflux disease without esophagitis; J45.909 Unspecified asthma, uncomplicated; F41.9 Anxiety disorder, unspecified; F31.9 Bipolar disorder, unspecified; F17.200 Nicotine dependence, unspecified, uncomplicated; Z86.16 Personal history of COVID-19; Z88.0 Allergy status to penicillin; Z91.040 Latex allergy status; Z88.8 Allergy status to other drugs, medicaments and biological substances; Z79.899 Other long term (current) drug therapy
CPT/HCPCS: 99284; 96365; 96375 ×5; 96376; 94640; J1200; J1100; J2405; J1170; J3475; J1885

== ENCOUNTER 2023-07-06 22:50 | Emergency (ER) | payer OTHER ==
[2023-07-06 23:16] VITALS: RESP 18; TEMP 96.9
--- NOTE | 2023-07-06 23:28 | ED ---
General Adult HPI - General Source: patient, RN notes reviewed Mode of arrival: ambulatory Limitations: no limitations <Ghada Hernandez - Last Filed: 07/06/23 23:33> <Philipp Head - Last Filed: 07/07/23 03:27> - General Chief complaint: Headache Stated complaint: Vomiting, Headache - History of Present Illness Initial comments: 42 year old female presents to the emergency department for chief complaint of migraine. She states that this started this morning. She states that this is typical of her migraines. Patient reports that she is supposed to take Topamax twice a day but has not been taking it for the past 2 weeks because she has not been home. She also has a history of fibromyalgia and admits to bodyaches. (hGada Johnson) 42-year-old female with history of migraines presenting with chief complaint of migraine. Symptoms started this morning. States the pain starts in the shoulders, creeps up to the neck, and wraps around the head. Feels consistent with previous migraines. Patient has not been taking her Topamax for the last 2 weeks because she has not been home, she has been staying at a friend's house. Admits to nausea with no vomiting. No vision or hearing changes. No injury or trauma. No neck stiffness or fevers. (Philipp Head) - Related Data Home Medications Medication Instructions Recorded Confirmed DULoxetine HCL [Cymbalta] 60 mg PO BID 02/26/20 07/05/23 buPROPion XL [Wellbutrin XL] 150 mg PO DAILY 08/14/20 07/05/23 ARIPiprazole [Abilify] 7.5 mg PO DAILY 11/04/20 07/05/23 Topiramate [Topiramate ER 50 mg PO BID 04/06/21 07/05/23 (Sprinkle)] Sucralfate [Carafate] 1 gm PO ACHS 05/09/21 07/05/23 Propranolol HCl [Propranolol HCl 60 mg PO DAILY 06/21/21 07/05/23 ER] Albuterol Sulfate [Proair Hfa] 1 - 2 puff INHALATION RT-Q6H PRN 08/15/21 07/05/23 Cyclobenzaprine [Flexeril] 2 tab PO BID 08/15/21 07/05/23 Ondansetron Odt [Zofran ODT] 4 mg PO Q8HR PRN 08/15/21 07/05/23 Amitriptyline HCl [Elavil] 20 mg PO HS 08/17/21 07/05/23 Previous Rx's Medication Instructions Recorded Pantoprazole Sodium [Protonix] 40 mg PO BID #30 tab 08/15/21 Rimegepant Sulfate [Nurtec Odt] 1 tab PO DIRECTED PRN #8 tab 06/16/23 Albuterol Sulfate [Albuterol 1 puff PO Q4-6H PRN #8.5 gm 06/29/23 Sulfate Hfa] Ketorolac [Toradol] 10 mg PO Q6HR PRN #15 tab 06/29/23 Ondansetron Odt [Zofran Odt] 4 mg PO Q8HR PRN #20 tab 06/29/23 guaiFENesin-Coden 100-10MG/5ML 10 ml PO Q4H PRN 3 Days #180 ml 06/29/23 [Robitussin AC] Allergies Allergy/AdvReac Type Severity Reaction Status Date / Time adhesive Allergy Rash/Hives Verified 07/06/23 23:05 latex Allergy Rash/Hives Verified 07/06/23 23:05 morphine Allergy Unknown Verified 07/06/23 23:05 prochlorperazine Allergy Unknown Verified 07/06/23 23:05 [From Compazine] ciprofloxacin [From Cipro] AdvReac Hallucinati Verified 07/06/23 23:05 ons citalopram [From Celexa] AdvReac Suicidal Verified 07/06/23 23:05 thoughts diazepam [From Valium] AdvReac Hallucinati Verified 07/06/23 23:05 ons/Anxiety fluoxetine [From Prozac] AdvReac Suicidal Verified 07/06/23 23:05 thoughts metoclopramide [From Reglan] AdvReac Hallucinati Verified 07/06/23 23:05 ons/Anxiety paroxetine [From Paxil] AdvReac Suicidal Verified 07/06/23 23:05 thoughts Penicillins AdvReac Nausea & Verified 07/06/23 23:05 Vomiting Review of Systems ROS Other: All systems not noted in ROS Statement are negative. <Ghada Hernandez - Last Filed: 07/06/23 23:33> ROS Other: All systems not noted in ROS Statement are negative. <Philipp Head - Last Filed: 07/07/23 03:27> ROS Statement: Those systems with pertinent positive or pertinent negative responses have been documented in the HPI. Past Medical History Past Medical History: Asthma, Fibromyalgia, GERD/Reflux, GI Bleed Additional Past Medical History / Comment(s): covid + pneumonia 10/30/2020 complicated by respiratory failure, intubation, mechanical ventilation, bilateral pneumothoraces, COPD, Other hx: Primary immunodeficiency, antral ulcers, GI bleed, anemia, IBS, migraines, back pain, TMJ, seasonal allergies History of Any Multi-Drug Resistant Organisms: None Reported Past Surgical History: Breast Surgery, Ear Surgery, Uterine Ablation Additional Past Surgical History / Comment(s): EGDs, colonoscopies, bilateral breast augmentation, septoplasty, L ear trauma/reattached. Past Anesthesia/Blood Transfusion Reactions: No Reported Reaction, Motion Sickness Additional Past Anesthesia/Blood Transfusion Reaction / Comment(s): Pt has received blood in past without reaction. Past Psychological History: ADD/ADHD, Anxiety, Bipolar, Depression, PTSD Smoking Status: Current every day smoker Past Alcohol Use History: Daily Past Drug Use History: None Reported - Past Family History Father Additional Family Medical History / Comment(s): Father at age 51 from accidental drug overdose. Mother Family Medical History: Fibromyalgia Additional Family Medical History / Comment(s): Mother is alive at age 61 with history of primary immunodeficiency. Brother(s) Additional Family Medical History / Comment(s): Patient has one brother with history of alcohol abuse. Patient does not have any sisters. Patient has 2 children with no major medical problems. <Ghada Hernandez - Last Filed: 07/06/23 23:33> General Exam Limitations: no limitations <Ghada Hernandez - Last Filed: 07/06/23 23:33> Limitations: no limitations General appearance: alert, in no apparent distress Head exam: Present: atraumatic, normocephalic, normal inspection Eye exam: Present: normal appearance, PERRL, EOMI. Absent: scleral icterus, conjunctival injection, periorbital swelling Neck exam: Present: normal inspection, full ROM Respiratory exam: Absent: respiratory distress Neurological exam: Present: alert, oriented X3 Expanded Patient oriented to: Present: person, place, time Speech: Present: fluid speech Eye Response: (4) open spontaneously Motor Response: (6) obeys commands Verbal Response: (5) oriented Psychiatric exam: Present: normal affect, normal mood Skin exam: Present: warm, dry, intact, normal color. Absent: rash <Philipp Head - Last Filed: 07/07/23 03:27> - General Exam Comments Initial Comments: Visual Physical Exam Vital signs reviewed General: Well-appearing, nontoxic, no acute distress. Head: Normocephalic, atraumatic Eyes: PERRLA, EOMI ENT: Airway patent Chest: Nonlabored breathing Skin: No visual rash, normal skin tone Neuro: Alert and oriented 3 Musculoskeletal: No gross abnormalities (Ghada Hernandez) Course Vital Signs 07/06/23 07/07/23 23:03 02:50 Temperature 96.9 F L Pulse Rate 80 64 Respiratory 18 18 Rate Blood Pressure 110/75 114/78 O2 Sat by Pulse 99 100 Oximetry Medical Decision Making <Ghada Hernandez - Last Filed: 07/06/23 23:33> <Philipp Head - Last Filed: 07/07/23 03:27> - Medical Decision Making I preformed the quick note portion of this chart. Electronically signed by Ghada Hernandez PA-C (Ghada Hernandez) Was pt. sent in by a medical professional or institution ([facility], [facility], urgent care, hospital, or intermediate...) When possible be specific @ -No Did you speak to anyone other than the patient for history (EMS, parent, family, police, friend...)? What history was obtained from this source @ -No Did you review nursing and triage notes (agree or disagree)? Why? @ -I reviewed and agree with nursing and triage notes Were old charts reviewed (outside hosp., previous admission, EMS record, old EKG, old radiological studies, urgent care reports/EKG's, intermediate records)? Report findings @ -No old charts were reviewed Differential Diagnosis (chest pain, altered mental status, abdominal pain women, abdominal pain men, vaginal bleeding, weakness, fever, dyspnea, syncope, headache, dizziness, GI bleed, back pain, seizure, CVA, palpatations, mental health, musculoskeletal)? @ -MDM Differential Headache: Migraine, tension, cluster, carbon monoxide, central venous thrombosis, pension karma temporal arteritis, acute closure glaucoma, intercranial hemorrhage, mastoiditis, sinusitis, head injury this is not meant to be an all-inclusive list. EKG interpreted by me (3pts min.). @ -As above X-rays interpreted by me (1pt min.). @ -None done CT interpreted by me (1pt min.). @ -None done U/S interpreted by me (1pt. min.). @ -None done What testing was considered but not performed or refused? (CT, X-rays, U/S, labs)? Why? @ -None What meds were considered but not given or refused? Why? @ -None Did you discuss the management of the patient with other professionals (professionals i.e. , PA, [facility] [employer], lab, RT, psych nurse, social studies teacher, hand grinder, teacher, commissioned defence force officer, foster care case manager)? Give summary @ -No Was smoking cessation discussed for >3mins.? @ -No Was critical care preformed (if so, how long)? @ -No Were there social determinants of health that impacted care today? How? (Homelessness, low income, unemployed, alcoholism, drug addiction, transportation, low edu. Level, literacy, decrease access to med. care, retirement, rehab)? @ -No Was there de-escalation of care discussed even if they declined (Discuss DNR or withdrawal of care, Hospice)? DNR status @ -No What co-morbidities impacted this encounter? (DM, HTN, Smoking, COPD, CAD, Cancer, CVA, ARF, Chemo, Hep., AIDS, mental health diagnosis, sleep apnea, morbid obesity)? @ -None Was patient admitted / discharged? Hospital course, mention meds given and route, prescriptions, significant lab abnormalities, going to OR and other pertinent info. @ -42-year-old female history of migraines presenting with chief complaint of migraine. Feels consistent with previous headaches. History and physical exam were conducted. Patient is given a migraine cocktail on reassessment reports improvement in her symptoms. Follow-up with PCP. Report back to ER with any new or worsening symptoms. Discussed return parameters and answered all questions. Patient conveyed verbal understanding and agreed to the plan. I discussed this case in detail with my attending Dr. Douglas Undiagnosed new problem with uncertain prognosis? @ -No Drug Therapy requiring intensive monitoring for toxicity (Heparin, Nitro, Insulin, Cardizem)? @ -No Were any procedures done? @ -No Diagnosis/symptom? @ -Headache Acute, or Chronic, or Acute on Chronic? @ -Acute Uncomplicated (without systemic symptoms) or Complicated (systemic symptoms)? @ -Uncomplicated Side effects of treatment? @ -No Exacerbation, Progression, or Severe Exacerbation? @ -No Poses a threat to life or bodily function? How? (Chest pain, [place], [place], pneumonia, PE, COPD, DKA, ARF, appy, cholecystitis, CVA, Diverticulitis, Homicidal, Suicidal, threat to staff... and all critical care pts) @ -No (Philipp Head) Disposition <Ghada Hernandez - Last Filed: 07/06/23 23:33> Is patient prescribed a controlled substance at d/c from ED?: No Time of Disposition: 02:35 <Philipp Head - Last Filed: 07/07/23 03:27> Clinical Impression: Headache Disposition: HOME SELF-CARE Condition: Good Instructions (If sedation given, give patient instructions): Acute Headache (ED) Additional Instructions: Follow-up with PCP. Report back to ER if any new or worsening symptoms. Referrals: Patricia Gonzalez MD [Primary Care Provider] - 1-2 days
[2023-07-07] MEDS ORDERED: DEXAMETHASONE SOD PHOSPHATE 10 MG/ML 1 ML VIAL IVP STA (00:31)
[2023-07-07] MEDS ORDERED: diphenhydrAMINE 50 MG/ML 1 ML VIAL IVP STA (00:31)
[2023-07-07] MEDS ORDERED: ONDANSETRON 4 MG/2 ML VIAL IVP STA (00:31)
[2023-07-07] MEDS ORDERED: SODIUM CHLORIDE 0.9% 1,000 ML IV STA (00:31)
[2023-07-07] MEDS ORDERED: KETOROLAC 15 MG/ML 1 ML VIAL IVP STA (00:31)
[2023-07-07] MEDS ORDERED: ORPHENADRINE 30 MG/ML 2 ML VIAL IVP STA (02:08)
[2023-07-07] MEDS ORDERED: HYDROcodone/APAP 7.5-325MG 1 EACH TAB PO ONE (02:34)
[2023-07-07 03:06] VITALS: BP 114/78; PULSE 64
== END 2023-07-07 02:54 | disposition home or self-care (01) ==
LOC: EC 22:50
DX: R51.9 Headache, unspecified (principal); J44.89 Other specified chronic obstructive pulmonary disease; F17.200 Nicotine dependence, unspecified, uncomplicated; F31.9 Bipolar disorder, unspecified; F41.9 Anxiety disorder, unspecified; Z86.16 Personal history of COVID-19; Z79.899 Other long term (current) drug therapy; Z88.0 Allergy status to penicillin; Z88.1 Allergy status to other antibiotic agents; Z88.8 Allergy status to other drugs, medicaments and biological substances; Z91.040 Latex allergy status; Z91.09 Other allergy status, other than to drugs and biological substances; Z88.5 Allergy status to narcotic agent
CPT/HCPCS: 99283; 96374; 96375 ×4; 96361 ×2; J1200; J1100; J2360; J2405; J1885

== ENCOUNTER 2023-07-18 15:08 | Emergency (ER) | payer OTHER ==
--- NOTE | 2023-07-18 15:40 | ED ---
Lower Extremity Injury HPI - General Source: patient, RN notes reviewed Mode of arrival: ambulatory Limitations: no limitations <Jayden Todd - Last Filed: 07/18/23 15:38> <Jessie Mcmahon - Last Filed: 07/18/23 23:19> - General Chief Complaint: Extremity Injury, Lower Stated Complaint: Migraine Time Seen by Provider: 07/18/23 15:38 - History of Present Illness Initial Comments: 42-year-old female presents emergency Department with with chief complaint of left foot, first digit pain. Patient states she kicked a metal bar other day. Patient states is very painful. She also cleanser headache. She has chronic headaches, migraines. She states that she tried her medication which included Excedrin, fierce that with no relief. (Jayden Todd) Quick note reviewed. This is a 42-year-old female presents the emergency department with a chief complaint of left toe pain. Patient reports that she kicked a metal bar yesterday. She reports that his pain. She has tried using hydrogen peroxide to cleanse it. She reports that it has some increased redness and swelling to the area. She denies any known fever chills. She in addition she endorses that she has a migraine headache. She reports that this is typical of her migraines. She denies trauma or injury. Denies dizziness lightheadedness, vision changes or vision loss, chest pain, shortness of breath, abdominal pain. Patient has been using Excedrin at home with no significant dramatic improvement. (Jessie Mcmahon) - Related Data Home Medications Medication Instructions Recorded Confirmed DULoxetine HCL [Cymbalta] 60 mg PO BID 02/26/20 07/05/23 buPROPion XL [Wellbutrin XL] 150 mg PO DAILY 08/14/20 07/05/23 ARIPiprazole [Abilify] 7.5 mg PO DAILY 11/04/20 07/05/23 Topiramate [Topiramate ER 50 mg PO BID 04/06/21 07/05/23 (Sprinkle)] Sucralfate [Carafate] 1 gm PO ACHS 05/09/21 07/05/23 Propranolol HCl [Propranolol HCl 60 mg PO DAILY 06/21/21 07/05/23 ER] Albuterol Sulfate [Proair Hfa] 1 - 2 puff INHALATION RT-Q6H PRN 08/15/21 07/05/23 Cyclobenzaprine [Flexeril] 2 tab PO BID 08/15/21 07/05/23 Ondansetron Odt [Zofran ODT] 4 mg PO Q8HR PRN 08/15/21 07/05/23 Amitriptyline HCl [Elavil] 20 mg PO HS 08/17/21 07/05/23 Previous Rx's Medication Instructions Recorded Pantoprazole Sodium [Protonix] 40 mg PO BID #30 tab 08/15/21 Rimegepant Sulfate [Nurtec Odt] 1 tab PO DIRECTED PRN #8 tab 06/16/23 Albuterol Sulfate [Albuterol 1 puff PO Q4-6H PRN #8.5 gm 06/29/23 Sulfate Hfa] Ketorolac [Toradol] 10 mg PO Q6HR PRN #15 tab 06/29/23 Ondansetron Odt [Zofran Odt] 4 mg PO Q8HR PRN #20 tab 06/29/23 guaiFENesin-Coden 100-10MG/5ML 10 ml PO Q4H PRN 3 Days #180 ml 06/29/23 [Robitussin AC] Cephalexin [Keflex] 500 mg PO Q6HR #40 cap 07/18/23 Ibuprofen [Motrin] 800 mg PO Q6HR #30 tab 07/18/23 Allergies Allergy/AdvReac Type Severity Reaction Status Date / Time adhesive Allergy Rash/Hives Verified 07/06/23 23:05 latex Allergy Rash/Hives Verified 07/06/23 23:05 morphine Allergy Unknown Verified 07/06/23 23:05 prochlorperazine Allergy Unknown Verified 07/06/23 23:05 [From Compazine] ciprofloxacin [From Cipro] AdvReac Hallucinati Verified 07/06/23 23:05 ons citalopram [From Celexa] AdvReac Suicidal Verified 07/06/23 23:05 thoughts diazepam [From Valium] AdvReac Hallucinati Verified 07/06/23 23:05 ons/Anxiety fluoxetine [From Prozac] AdvReac Suicidal Verified 07/06/23 23:05 thoughts metoclopramide [From Reglan] AdvReac Hallucinati Verified 07/06/23 23:05 ons/Anxiety paroxetine [From Paxil] AdvReac Suicidal Verified 07/06/23 23:05 thoughts Penicillins AdvReac Nausea & Verified 07/06/23 23:05 Vomiting Review of Systems ROS Other: All systems not noted in ROS Statement are negative. <Jayden Todd - Last Filed: 07/18/23 15:38> ROS Other: All systems not noted in ROS Statement are negative. <Jessie Mcmahon - Last Filed: 07/18/23 23:19> ROS Statement: Those systems with pertinent positive or pertinent negative responses have been documented in the HPI. Past Medical History Past Medical History: Asthma, Fibromyalgia, GERD/Reflux, GI Bleed Additional Past Medical History / Comment(s): covid + pneumonia 10/30/2020 complicated by respiratory failure, intubation, mechanical ventilation, bilateral pneumothoraces, COPD, Other hx: Primary immunodeficiency, antral ulcers, GI bleed, anemia, IBS, migraines, back pain, TMJ, seasonal allergies History of Any Multi-Drug Resistant Organisms: None Reported Past Surgical History: Breast Surgery, Ear Surgery, Uterine Ablation Additional Past Surgical History / Comment(s): EGDs, colonoscopies, bilateral breast augmentation, septoplasty, L ear trauma/reattached. Past Anesthesia/Blood Transfusion Reactions: No Reported Reaction, Motion Sickness Additional Past Anesthesia/Blood Transfusion Reaction / Comment(s): Pt has received blood in past without reaction. Past Psychological History: ADD/ADHD, Anxiety, Bipolar, Depression, PTSD Smoking Status: Current every day smoker Past Alcohol Use History: Daily Past Drug Use History: None Reported - Past Family History Father Additional Family Medical History / Comment(s): Father at age 51 from accidental drug overdose. Mother Family Medical History: Fibromyalgia Additional Family Medical History / Comment(s): Mother is alive at age 61 with history of primary immunodeficiency. Brother(s) Additional Family Medical History / Comment(s): Patient has one brother with history of alcohol abuse. Patient does not have any sisters. Patient has 2 children with no major medical problems. <Jayden Todd - Last Filed: 07/18/23 15:38> General Exam Limitations: no limitations <Jayden Todd - Last Filed: 07/18/23 15:38> <Jessie Mcmahon - Last Filed: 07/18/23 23:19> - General Exam Comments Initial Comments: Visual Physical Exam Vital signs reviewed General: Well-appearing, nontoxic, no acute distress. Head: Normocephalic, atraumatic Eyes: PERRLA, EOMI ENT: Airway patent Chest: Nonlabored breathing Skin: No visual rash, normal skin tone Neuro: Alert and oriented 3 Musculoskeletal: No gross abnormalities (Jayden Todd) General: Alert, in no acute distress Head: atraumatic normocephalic. Eyes PERRL, EOMI intact, mucous membranes moist Respiratory: Lungs clear to auscultation bilaterally Cardiovascular: Heart rate regular rate and rhythm Abdominal: Soft without guarding or rebound Extremities: Normal inspection with full range of motion and normal capillary refill, left great toe with small superficial lacerations. No marked erythema or edema. 2+ DP/PT pulses. Neuroogic: alert and oriented 3, CN II-XII intact, able to ambulate with steady gait Skin: warm dry and intact with normal color (Jessie Mcmahon) Course Vital Signs 07/18/23 15:26 Temperature 98.3 F Pulse Rate 100 Respiratory 20 Rate Blood Pressure 115/85 O2 Sat by Pulse 97 Oximetry Medical Decision Making <Jayden Todd - Last Filed: 07/18/23 15:38> <Jessie Mcmahon - Last Filed: 07/18/23 23:19> - Medical Decision Making I completed the quick note portion of this chart signed Jayden Todd PA-C (Jayden Todd) Was pt. sent in by a medical professional or institution ([facility], [employer]TER, urgent care, hospital, or jail...) When possible be specific @ -[No] Did you speak to anyone other than the patient for history (EMS, parent, family, police, friend...)? What history was obtained from this source @ -[No] Did you review nursing and triage notes (agree or disagree)? Why? @ -[I reviewed and agree with nursing and triage notes] Were old charts reviewed (outside hosp., previous admission, EMS record, old EKG, old radiological studies, urgent care reports/EKG's, jail records)? Report findings @ -[No old charts were reviewed] Differential Diagnosis (chest pain, altered mental status, abdominal pain women, abdominal pain men, vaginal bleeding, weakness, fever, dyspnea, syncope, headache, dizziness, GI bleed, back pain, seizure, CVA, palpatations, mental health, musculoskeletal)? @ -[not applicable] EKG interpreted by me (3pts min.). @ -[As above] X-rays interpreted by me (1pt min.). @ -X-ray negative for any fracture or dislocation or osteomyelitis CT interpreted by me (1pt min.). @ -[None done] U/S interpreted by me (1pt. min.). @ -[None done] What testing was considered but not performed or refused? (CT, X-rays, U/S, labs)? Why? @ -[None] What meds were considered but not given or refused? Why? @ -[None] Did you discuss the management of the patient with other professionals (professionals i.e. , PA, SALVAGE CUTTER, lab, RT, psych nurse, social worker palliative care, carbon printer, teacher, chief science officer, case assistant)? Give summary @ -[No] Was smoking cessation discussed for >3mins.? @ -[No] Was critical care preformed (if so, how long)? @ -[No] Were there social determinants of health that impacted care today? How? (Homelessness, low income, unemployed, alcoholism, drug addiction, transportation, low edu. Level, literacy, decrease access to med. care, senior living, rehab)? @ -[No] Was there de-escalation of care discussed even if they declined (Discuss DNR or withdrawal of care, Hospice)? DNR status @ -[No] What co-morbidities impacted this encounter? (DM, HTN, Smoking, COPD, CAD, Cancer, CVA, ARF, Chemo, Hep., AIDS, mental health diagnosis, sleep apnea, morbid obesity)? @ -[None] Was patient admitted / discharged? Hospital course, mention meds given and [place], prescriptions, significant lab abnormalities, going to OR and other pertinent info. @ Discharged. This is a 42-year-old female presents emergency Department with toe pain. Patient had a history and physical exam performed. Physical exam is essentially unremarkable. There are superficial lacerations to patient's toe. Patient will be given Keflex. She'll be updated on her tetanus vaccine. Patient given Toradol and Benadryl for her headache with symptomatic improvement. Return precautions discussed length. patient was discharged in stable condition. Case is discussed with URI Cantrell who agrees with plan of care Undiagnosed new problem with uncertain prognosis? @ -[No] Drug Therapy requiring intensive monitoring for toxicity (Heparin, Nitro, Insulin, Cardizem)? @ -[No] Were any procedures done? @ -[No] Diagnosis/symptom? @ -Toe Pain - Headache Acute, or Chronic, or Acute on Chronic? @ -Acute Uncomplicated (without systemic symptoms) or Complicated (systemic symptoms)? @ -Uncomplicated Side effects of treatment? @ -[No] Exacerbation, Progression, or Severe Exacerbation? @ -[No] Poses a threat to life or bodily function? How? (Chest pain, [place], [place], pneumonia, PE, COPD, DKA, ARF, appy, cholecystitis, CVA, Diverticulitis, Homicidal, Suicidal, threat to staff... and all critical care pts) @ Low likelihood ] (Jessie Mcmahon) Disposition <Jayden Todd - Last Filed: 07/18/23 15:38> Is patient prescribed a controlled substance at d/c from ED?: No Time of Disposition: 17:45 <Jessie Mcmahon - Last Filed: 07/18/23 23:19> Clinical Impression: Toe pain, Headache Disposition: HOME SELF-CARE Condition: Stable Instructions (If sedation given, give patient instructions): Foot Contusion (ED) Additional Instructions: Please continue to take Tylenol and Motrin Please apply ice or heat. Elevate when able Prescriptions: Cephalexin [Keflex] 500 mg PO Q6HR #40 cap Ibuprofen [Motrin] 800 mg PO Q6HR #30 tab Referrals: Patricia Gonzalez MD [Primary Care Provider] - 1-2 days
[2023-07-18 15:44] VITALS: BP 115/85; PULSE 100; RESP 20; TEMP 98.3
--- NOTE | 2023-07-18 15:59 | XR ---
EXAMINATION TYPE: XR foot complete LT DATE OF EXAM: 07/18/2023 COMPARISON: NONE HISTORY: Pain first digit TECHNIQUE: Three views are submitted. FINDINGS: The osseous structures are intact. There is no acute fracture or dislocation. Joint spaces are p reserved. IMPRESSION: 1. No acute fracture or dislocation. If symptoms persist, follow-up exam in 7 to 10 days could be ob tained.
[2023-07-18] MEDS ORDERED: CEPHALEXIN 500 MG CAP PO STA (18:04)
[2023-07-18] MEDS ORDERED: diphenhydrAMINE 25 MG CAP PO STA (18:04)
[2023-07-18] MEDS ORDERED: KETOROLAC 15 MG/ML 1 ML VIAL IM STA (18:05)
[2023-07-18] MEDS ORDERED: DIPH,PERTUS(ACELL)TETVAC-LF 0.5 ML VIAL IM ONE (18:06)
== END 2023-07-18 20:07 | disposition home or self-care (01) ==
LOC: EC 15:08
DX: R51.9 Headache, unspecified (principal); M79.675 Pain in left toe(s); J45.909 Unspecified asthma, uncomplicated; K21.9 Gastro-esophageal reflux disease without esophagitis; F41.9 Anxiety disorder, unspecified; F31.9 Bipolar disorder, unspecified; F17.200 Nicotine dependence, unspecified, uncomplicated; Z88.0 Allergy status to penicillin; Z88.8 Allergy status to other drugs, medicaments and biological substances; Z91.040 Latex allergy status; Z88.5 Allergy status to narcotic agent; Z79.899 Other long term (current) drug therapy; Z23 Encounter for immunization
CPT/HCPCS: 73630; 90715; 99283; 90471; 96372; J1885

== ENCOUNTER 2023-10-28 05:14 | Observation (INO) | payer OTHER ==
--- NOTE | 2023-10-28 05:43 | ED ---
General Adult HPI - General Chief complaint: Shortness of Breath Stated complaint: COPD Time Seen by Provider: 10/28/23 05:18 Source: patient, RN notes reviewed, old records reviewed Mode of arrival: wheelchair Limitations: no limitations - History of Present Illness Initial comments: 42-year-old female with cough, dyspnea, history of asthma and COPD. Patient continues to smoke. Patient has had chills, myalgia, mild headache. No central chest pain. She has mild chest discomfort with cough. - Related Data Home Medications Medication Instructions Recorded Confirmed DULoxetine HCL [Cymbalta] 60 mg PO BID 02/26/20 07/05/23 buPROPion XL [Wellbutrin XL] 150 mg PO DAILY 08/14/20 07/05/23 ARIPiprazole [Abilify] 7.5 mg PO DAILY 11/04/20 07/05/23 Topiramate [Topiramate ER 50 mg PO BID 04/06/21 07/05/23 (Sprinkle)] Sucralfate [Carafate] 1 gm PO ACHS 05/09/21 07/05/23 Propranolol HCl [Propranolol HCl 60 mg PO DAILY 06/21/21 07/05/23 ER] Albuterol Sulfate [Proair Hfa] 1 - 2 puff INHALATION RT-Q6H PRN 08/15/21 07/05/23 Cyclobenzaprine [Flexeril] 2 tab PO BID 08/15/21 07/05/23 Ondansetron Odt [Zofran ODT] 4 mg PO Q8HR PRN 08/15/21 07/05/23 Amitriptyline HCl [Elavil] 20 mg PO HS 08/17/21 07/05/23 Previous Rx's Medication Instructions Recorded Pantoprazole Sodium [Protonix] 40 mg PO BID #30 tab 08/15/21 Rimegepant Sulfate [Nurtec Odt] 1 tab PO DIRECTED PRN #8 tab 06/16/23 Albuterol Sulfate [Albuterol 1 puff PO Q4-6H PRN #8.5 gm 06/29/23 Sulfate Hfa] Ketorolac [Toradol] 10 mg PO Q6HR PRN #15 tab 06/29/23 Ondansetron Odt [Zofran Odt] 4 mg PO Q8HR PRN #20 tab 06/29/23 guaiFENesin-Coden 100-10MG/5ML 10 ml PO Q4H PRN 3 Days #180 ml 06/29/23 [Robitussin AC] Cephalexin [Keflex] 500 mg PO Q6HR #40 cap 07/18/23 Ibuprofen [Motrin] 800 mg PO Q6HR #30 tab 07/18/23 Allergies Allergy/AdvReac Type Severity Reaction Status Date / Time adhesive Allergy Rash/Hives Verified 10/28/23 05:21 latex Allergy Rash/Hives Verified 10/28/23 05:21 morphine Allergy Unknown Verified 10/28/23 05:21 prochlorperazine Allergy Unknown Verified 10/28/23 05:21 [From Compazine] ciprofloxacin [From Cipro] AdvReac Hallucinati Verified 10/28/23 05:21 ons citalopram [From Celexa] AdvReac Suicidal Verified 10/28/23 05:21 thoughts diazepam [From Valium] AdvReac Hallucinati Verified 10/28/23 05:21 ons/Anxiety fluoxetine [From Prozac] AdvReac Suicidal Verified 10/28/23 05:21 thoughts metoclopramide [From Reglan] AdvReac Hallucinati Verified 10/28/23 05:21 ons/Anxiety paroxetine [From Paxil] AdvReac Suicidal Verified 10/28/23 05:21 thoughts Penicillins AdvReac Nausea & Verified 10/28/23 05:21 Vomiting Review of Systems ROS Statement: Those systems with pertinent positive or pertinent negative responses have been documented in the HPI. ROS Other: All systems not noted in ROS Statement are negative. Past Medical History Past Medical History: Asthma, COPD, Fibromyalgia, GERD/Reflux, GI Bleed Additional Past Medical History / Comment(s): covid + pneumonia 10/30/2020 complicated by respiratory failure, intubation, mechanical ventilation, bilateral pneumothoraces, COPD, Other hx: Primary immunodeficiency, antral ulcers, GI bleed, anemia, IBS, migraines, back pain, TMJ, seasonal allergies History of Any Multi-Drug Resistant Organisms: None Reported Past Surgical History: Breast Surgery, Ear Surgery, Uterine Ablation Additional Past Surgical History / Comment(s): EGDs, colonoscopies, bilateral breast augmentation, septoplasty, L ear trauma/reattached. Past Anesthesia/Blood Transfusion Reactions: No Reported Reaction, Motion Sickness Additional Past Anesthesia/Blood Transfusion Reaction / Comment(s): Pt has received blood in past without reaction. Past Psychological History: ADD/ADHD, Anxiety, Bipolar, Depression, PTSD Smoking Status: Current every day smoker Past Alcohol Use History: Daily Past Drug Use History: None Reported - Past Family History Father Additional Family Medical History / Comment(s): Father at age 51 from accidental drug overdose. Mother Family Medical History: Fibromyalgia Additional Family Medical History / Comment(s): Mother is alive at age 61 with history of primary immunodeficiency. Brother(s) Additional Family Medical History / Comment(s): Patient has one brother with history of alcohol abuse. Patient does not have any sisters. Patient has 2 children with no major medical problems. General Exam Limitations: no limitations General appearance: alert, in no apparent distress Head exam: Present: atraumatic, normocephalic Eye exam: Present: normal appearance, PERRL ENT exam: Present: normal exam Neck exam: Present: normal inspection. Absent: tenderness Respiratory exam: Present: other (Bronchospastic cough). Absent: respiratory distress, wheezes Cardiovascular Exam: Present: normal rhythm, tachycardia GI/Abdominal exam: Present: soft. Absent: distended, tenderness, guarding Extremities exam: Present: normal inspection Neurological exam: Present: alert, oriented X3 Psychiatric exam: Present: normal affect, normal mood Course Vital Signs 10/28/23 10/28/23 10/28/23 05:18 05:30 06:25 Temperature 97.5 F L Pulse Rate 106 H 101 H 90 Respiratory 16 18 Rate Blood Pressure 102/69 102/67 O2 Sat by Pulse 99 99 Oximetry 10/28/23 06:42 Temperature Pulse Rate 92 Respiratory Rate Blood Pressure O2 Sat by Pulse Oximetry Medical Decision Making - Medical Decision Making Was pt. sent in by a medical professional or institution (, PA, FIRE CHIEF, urgent care, hospital, or long term...) When possible be specific @ -[No] Did you speak to anyone other than the patient for history (EMS, parent, family, police, friend...)? What history was obtained from this source @ -[No] Did you review nursing and triage notes (agree or disagree)? Why? @ -[I reviewed and agree with nursing and triage notes] Were old charts reviewed (outside hosp., previous admission, EMS record, old EKG, old radiological studies, urgent care reports/EKG's, long term records)? Report findings @ -[No old charts were reviewed] Differential Diagnosis (chest pain, altered mental status, abdominal pain women, abdominal pain men, vaginal bleeding, weakness, fever, dyspnea, syncope, headache, dizziness, GI bleed, back pain, seizure, CVA, palpatations, mental health, musculoskeletal)? @Differential Dyspnea: Coronary syndrome, arrhythmia, tamponade, asthma, COPD, pulmonary embolism, pneumonia, pneumothorax, pulmonary effusion, anaphylaxis, diabetic ketoacidosis, flailed chest, pulmonary contusion, diaphragmatic rupture, anemia, neuromuscular, this is not meant to be an all-inclusive list. EKG interpreted by me (3pts min.). @Sinus rhythm rate of 85, TN interval 134, QRS duration 93, QTc [address] segment elevation. X-rays interpreted by me (1pt min.). @Chest x-ray negative for acute cardiopulmonary findings. CT interpreted by me (1pt min.). @ -[None done] U/S interpreted by me (1pt. min.). @ -[None done] What testing was considered but not performed or refused? (CT, X-rays, U/S, labs)? Why? @ -[None] What meds were considered but not given or refused? Why? @ -[None] Did you discuss the management of the patient with other professionals (professionals i.e. , PA, FIRE CHIEF, lab, RT, psych nurse, healthcare social worker, commercial front load driver, teacher, sales promotion officer, residential case manager)? Give summary @ -[Dr. Murphy has been paged. Was smoking cessation discussed for >3mins.? @ -[No] Was critical care preformed (if so, how long)? @ -[No] Were there social determinants of health that impacted care today? How? (Homelessness, low income, unemployed, alcoholism, drug addiction, transportation, low edu. Level, literacy, decrease access to med. care, [facility], rehab)? @ -[No] Was there de-escalation of care discussed even if they declined (Discuss DNR or withdrawal of care, Hospice)? DNR status @ -[No] What co-morbidities impacted this encounter? (DM, HTN, Smoking, COPD, CAD, Cancer, CVA, ARF, Chemo, Hep., AIDS, mental health diagnosis, sleep apnea, morbid obesity)? @ -COPD Was patient admitted / discharged? Hospital course, mention meds given and route, prescriptions, significant lab abnormalities, going to OR and other pert inent info. @ -[42-year-old female with increased cough and dyspnea, history of COPD. Patient has moderate respiratory distress with bronchospastic cough. Given albuterol, Atrovent, steroids. Patient has anemia, no leukocytosis. She has hypokalemia 2.6 requiring both IV and oral replacement. Viral panel is negative. Patient admitted for further treatment of COPD and electrolyte abnormality. Undiagnosed new problem with uncertain prognosis? @ -[No] Drug Therapy requiring intensive monitoring for toxicity (Heparin, Nitro, Insulin, Cardizem)? @ -[No] Were any procedures done? @ -[No] Diagnosis/symptom? @ -[COPD exacerbation, hypokalemia] Acute, or Chronic, or Acute on Chronic? @ -[default] Uncomplicated (without systemic symptoms) or Complicated (systemic symptoms)? @ -[default] Side effects of treatment? @ -[No] Exacerbation, Progression, or Severe Exacerbation? @ -[No] Poses a threat to life or bodily function? How? (Chest pain, USA, [place], pneumonia, PE, COPD, DKA, ARF, appy, cholecystitis, CVA, Diverticulitis, Homicidal, Suicidal, threat to staff... and all critical care pts) @ -Moderate risk - Lab Data Result diagrams: 10/28/23 05:33 10/28/23 05:33 Lab Results 10/28/23 10/28/23 10/28/23 Range/Units 05:33 05:33 05:33 WBC 9.3 (3.8-10.6) k/uL RBC 3.14 L (3.80-5.40) m/uL Hgb 11.2 L (11.4-16.0) gm/dL Hct 32.7 L (34.0-46.0) % MCV 104.2 H (80.0-100.0) fL MCH 35.8 H (25.0-35.0) pg MCHC 34.4 (31.0-37.0) g/dL RDW 14.1 (11.5-15.5) % Plt Count 312 (150-450) k/uL MPV 7.5 Neutrophils % 66 % Lymphocytes % 24 % Monocytes % 6 % Eosinophils % 2 % Basophils % 0 % Neutrophils # 6.1 (1.3-7.7) k/uL Lymphocytes # 2.2 (1.0-4.8) k/uL Monocytes # 0.5 (0-1.0) k/uL Eosinophils # 0.2 (0-0.7) k/uL Basophils # 0.0 (0-0.2) k/uL Macrocytosis Moderate PT 10.1 (10.0-12.5) sec INR 0.9 (<1.2) APTT 20.7 L (22.0-30.0) sec Sodium 142 (137-145) mmol/L Potassium 2.6 L* (3.5-5.1) mmol/L Chloride 111 H (98-107) mmol/L Carbon Dioxide 22 (22-30) mmol/L Anion Gap 9 mmol/L BUN 14 (7-17) mg/dL Creatinine 0.75 (0.52-1.04) mg/dL Est GFR (CKD-EPI)AfAm >90 (>60 ml/min/1.73 sqM) Est GFR (CKD-EPI)NonAf >90 (>60 ml/min/1.73 sqM) Glucose 106 H (74-99) mg/dL Plasma Lactic Acid Domo (0.7-2.0) mmol/L Calcium 9.1 (8.4-10.2) mg/dL Magnesium 1.8 (1.6-2.3) mg/dL Total Bilirubin 0.2 (0.2-1.3) mg/dL AST 35 (14-36) U/L ALT 28 (4-34) U/L Alkaline Phosphatase 134 H (38-126) U/L Total Protein 6.5 (6.3-8.2) g/dL Albumin 3.9 (3.5-5.0) g/dL Influenza Type A (PCR) (Not Detectd) Influenza Type B (PCR) (Not Detectd) RSV (PCR) (Not Detectd) SARS-CoV-2 (PCR) (Not Detectd) 10/28/23 10/28/23 Range/Units 05:33 05:33 WBC (3.8-10.6) k/uL RBC (3.80-5.40) m/uL Hgb (11.4-16.0) gm/dL Hct (34.0-46.0) % MCV (80.0-100.0) fL MCH (25.0-35.0) pg MCHC (31.0-37.0) g/dL RDW (11.5-15.5) % Plt Count (150-450) k/uL MPV Neutrophils % % Lymphocytes % % Monocytes % % Eosinophils % % Basophils % % Neutrophils # (1.3-7.7) k/uL Lymphocytes # (1.0-4.8) k/uL Monocytes # (0-1.0) k/uL Eosinophils # (0-0.7) k/uL Basophils # (0-0.2) k/uL Macrocytosis PT (10.0-12.5) sec INR (<1.2) APTT (22.0-30.0) sec Sodium (137-145) mmol/L Potassium (3.5-5.1) mmol/L Chloride (98-107) mmol/L Carbon Dioxide (22-30) mmol/L Anion Gap mmol/L BUN (7-17) mg/dL Creatinine (0.52-1.04) mg/dL Est GFR (CKD-EPI)AfAm (>60 ml/min/1.73 sqM) Est GFR (CKD-EPI)NonAf (>60 ml/min/1.73 sqM) Glucose (74-99) mg/dL Plasma Lactic Acid Domo 2.0 (0.7-2.0) mmol/L Calcium (8.4-10.2) mg/dL Magnesium (1.6-2.3) mg/dL Total Bilirubin (0.2-1.3) mg/dL AST (14-36) U/L ALT (4-34) U/L Alkaline Phosphatase (38-126) U/L Total Protein (6.3-8.2) g/dL Albumin (3.5-5.0) g/dL Influenza Type A (PCR) Not Detected (Not Detectd) Influenza Type B (PCR) Not Detected (Not Detectd) RSV (PCR) Not Detected (Not Detectd) SARS-CoV-2 (PCR) Not Detected (Not Detectd) Disposition Clinical Impression: Acute exacerbation of chronic obstructive pulmonary disease, Anemia, Hypokalemia Disposition: ADMITTED IP TO THIS HOSP Condition: Stable Is patient prescribed a controlled substance at d/c from ED?: No Referrals: Patricia Gonzalez MD [Primary Care Provider] - 1-2 days Time of Disposition: 07:05
[2023-10-28 05:46] LABS: Basophils % (A) 0 %; Eosinophils # (A) 0.2 k/uL (0-0.7); Eosinophils % (A) 2 %; HCT 32.7 % (34.0-46.0); HGB 11.2 gm/dL (11.4-16.0); Lymphocytes # (A) 2.2 k/uL (1.0-4.8); Lymphocytes % (A) 24 %; MCH 35.8 pg (25.0-35.0); MCHC 34.4 g/dL (31.0-37.0); MCV 104.2 fL (80.0-100.0); Macrocytosis Moderate; Mean Platelet Volume 7.5; Monocytes # (A) 0.5 k/uL (0-1.0); Monocytes % (A) 6 %; Neutrophils # (A) 6.1 k/uL (1.3-7.7); Neutrophils % (A) 66 %; Platelet Count 312 k/uL (150-450); RBC 3.14 m/uL (3.80-5.40); RDW 14.1 % (11.5-15.5); WBC 9.3 k/uL (3.8-10.6)
[2023-10-28] MEDS: HYDROmorphone 0.5 MG/0.5 ML SYRINGE IVP STA (05:50)
[2023-10-28] MEDS: methylPREDNISolone SOD SUCCI 125 MG/2 ML VIAL IV STA (05:52)
[2023-10-28] MEDS: SODIUM CHLORIDE 0.9% 500 ML 500 ML IV ONE (05:55)
[2023-10-28 05:58] LABS: ALT 28 U/L (4-34); AST 35 U/L (14-36); African American GFR (CKD) >90 (>60 ml/min/1.73 sqM); Albumin 3.9 g/dL (3.5-5.0); Alkaline Phosphatase 134 U/L (38-126); Anion Gap 9 mmol/L; Blood Urea Nitrogen 14 mg/dL (7-17); Calcium 9.1 mg/dL (8.4-10.2); Carbon Dioxide 22 mmol/L (22-30); Chloride 111 mmol/L (98-107); Glucose 106 mg/dL (74-99); Magnesium 1.8 mg/dL (1.6-2.3); Non-African American GFR(CKD) >90 (>60 ml/min/1.73 sqM); Sodium 142 mmol/L (137-145); Total Bilirubin 0.2 mg/dL (0.2-1.3); Total Protein 6.5 g/dL (6.3-8.2)
[2023-10-28 06:01] LABS: INR 0.9 (<1.2); Partial Thromboplastin Time 20.7 sec (22.0-30.0); Prothrombin Time 10.1 sec (10.0-12.5)
[2023-10-28] MEDS: IPRATROPIUM 0.5 MG/2.5 ML NEBU INHALATION STA (06:22)
[2023-10-28] MEDS: ALBUTEROL NEBULIZED 2.5 MG/3 ML INHALATION STA (06:22)
[2023-10-28 06:41] LABS: Potassium 2.6 mmol/L (3.5-5.1)
[2023-10-28] MEDS: POTASSIUM CHLORIDE ER 20 MEQ TAB.ER PO STA (06:56)
[2023-10-28] MEDS: POTASSIUM CHLORIDE 10 MEQ in WATER FOR INJECTION 1 100ML.BAG IVPB SCH (06:56)
[2023-10-28] MEDS ORDERED: NALOXONE 0.4 MG/ML 1 ML VIAL IVP PRN (07:00)
[2023-10-28] MEDS ORDERED: ACETAMINOPHEN TAB 325 MG TAB PO PRN (07:00)
--- NOTE | 2023-10-28 07:12 | XR ---
EXAMINATION TYPE: XR chest 2V DATE OF EXAM: 10/28/2023 COMPARISON: 06/28/2023 HISTORY: 42 year-old female shortness of breath, difficulty breathing TECHNIQUE: PA and lateral views FINDINGS: Heart normal size. Aorta and pulmonary vasculature within normal limits. Bilateral nipple borders. Melendez zy lower lung densities relating to overlying soft tissue. No consolidation or pleural effusion. IMPRESSION: No acute cardiopulmonary process.
[2023-10-28] MEDS: IPRATROPIUM-ALBUTEROL 3 ML NEB INHALATION SCH (09:21)
[2023-10-28] MEDS: HYDROcodone/APAP 5-325MG 1 EACH TAB PO PRN (10:10)
[2023-10-28] MEDS ORDERED: ALBUTEROL HFA INHALER INHALATION PRN (12:05)
[2023-10-28] MEDS ORDERED: NON FORMULARY DRUG (Rimegepant Sulfate [Nurtec Odt] 75 MG Tablet) PO PRN (12:05)
[2023-10-28] MEDS ORDERED: CYCLOBENZAPRINE 5 MG TAB PO PRN (12:05)
[2023-10-28] MEDS: AZITHROMYCIN 500 MG TAB PO SCH (12:42)
[2023-10-28] MEDS: methylPREDNISolone SOD SUCCI 125 MG/2 ML VIAL IV SCH (13:35)
--- NOTE | 2023-10-28 14:11 | P.HPIM ---
History of Present Illness H&P Date: 10/28/23 Chief Complaint: COPD exacerbation, acute bacterial bronchitis, severe hypok alemia HISTORY OF PRESENT ILLNESS: 42-year-old female one of our office patient with multiple medical problems known to have history of chronic pain syndrome, chronic recurrent migraine multiple times a month, history of COPD with chronic history of nicotine dependency, chronic history of depression, and chronic history of lower back pain. Patient apparently developed to have significant shortness of breath with cough or wheezes for the last 3 days become much worse running low-grade temperature cough is unbearable keeping her up all night and developed to have worsening shortness of breath and wheezes with minimal exertion. Apparently contact her primary care and had her prescribed antibiotics for bronchitis which patient has been on cephalexin. Her symptoms become quite a bit worse. Ended up coming to the emergency department at [facility] where was seen and evaluated chest x-ray showed significantly impressive acute bronchitis with finding of COPD. Laboratory value showed low-grade anemia which patient on typically all the time. She had a potassium of 2.6 started on potassium replacement therapy COVID-19 with RSV and influenza were negative. REVIEW OF SYSTEMS: CONSTITUTIONAL: Well-developed no acute respiratory distress. EYES: No icterus sclerae, no conjunctivitis. EARS, NOSE, MOUTH, THROAT, and FACE: Congestion without sore throat, lymphadenopathy, carotid bruits or deformity. RESPIRATORY: Positive significant cough shortness of breath and wheezes. CARDIOVASCULAR: No CP, Palpitation, PND, Orthopnea, or angina. GASTROINTESTINAL: No Abd pain, Nausea or vomiting, no Diarrhea or constipation, No GI Bleed, no distention or masses. GENITOURINARY: Negative for Hematuria or UTI, no kidney stones. INTEGUMENT/BREAST: Negative for any muscular injury with mild osteoarthritis.. HEMATOLOGIC/LYMPHATIC: Chronic history of anemia. With iron infusion and transfusion in the past. MUSCULOSKELTAL: Negative for Myalgia or arthralgia. NEURLOGICAL: Been treated for chronic recurrent migraine, fibromyalgia and chronic pain syndrome. BEHAVIORAL/PSYCH: Negative. ENDOCRINE: Negative. PHYSICAL EXAMINATION: General Appearance: Alert, cooperative, no distress, appears stated age. Neck HEENT: Supple, no lymphadenopathy, no thyroid enlargement, no carotid bruits. Slight increase secretion and adenoid. Lungs: Decreased breath sound bilaterally with fine rhonchi no crackles positive expiratory wheezes. Chest Wall: Decreased expansion with deep inspiration no tenderness and no deformity was found on exam, no costochondral pain or discomfort. Heart: Regular rate and rhythm, S1, S2 normal, no murmur, rub or gallop. Back: Symmetric, no curvature, ROM normal, no CVA tenderness. Abdomen: Soft, non-tender, bowel sounds active all four quadrants, no masses, no organomegaly. Extremities: Extremities normal, atraumatic, no cyanosis or edema. Pulses: 2+ and symmetric. Skin: Skin color, texture, tugor normal, no rashes or lesions. Neurologic: Alert oriented x3 cranial nerves II through XII intact, no motor deficit, no abnormal balance or gait. ASSESSMENT AND PLAN: _COPD exacerbation: Patient was admitted started on Solu-Medrol 125 mg IV then 60 mg every 6 hours, continue DuoNeb and Pulmicort. _Severe acute bacterial bronchitis: Patient is quite symptomatic at this point with chest x-ray is very impressive, Rocephin and azithromycin were started. _Severe hypokalemia not a clear etiology replacement therapy, magnesium level to be checked and replace potassium to keep the number up to 3.5. _Chronic anemia: Has been seen hematology and been treated for the last 2 years. _Chronic fibromyalgia: Has been on cyclobenzaprine along with duloxetine and Topamax. _Chronic depression: Still on BuSpar 10 mg 3 times daily, Wellbutrin XL 150 mg daily, Topamax 150 mg daily, duloxetine 60 mg daily and Abilify 10 mg a day. _Severe recurrent debilitating migraine: Has been on Nurtec along with propranolol and Topamax. _Hypertension: Continue propranolol 160 mg daily. _Chronic pain syndrome: Has been on cyclobenzaprine along with Fioricet with codeine and Tylenol as needed. _Severe GERD GI prophylaxis: Remain on pantoprazole 40 mg daily. CODE STATUS: Full code. Admit patient to the inpatient service for 1-2 night stay. Past Medical History Past Medical History: Asthma, COPD, Fibromyalgia, GERD/Reflux, GI Bleed Additional Past Medical History / Comment(s): covid + pneumonia 10/30/2020 complicated by respiratory failure, intubation, mechanical ventilation, bilateral pneumothoraces, COPD, Other hx: Primary immunodeficiency, antral ulcers, GI bleed, anemia, IBS, migraines, back pain, TMJ, seasonal allergies History of Any Multi-Drug Resistant Organisms: None Reported Past Surgical History: Breast Surgery, Ear Surgery, Uterine Ablation Additional Past Surgical History / Comment(s): EGDs, colonoscopies, bilateral breast augmentation, septoplasty, L ear trauma/reattached. Past Anesthesia/Blood Transfusion Reactions: No Reported Reaction, Motion Sickness Additional Past Anesthesia/Blood Transfusion Reaction / Comment(s): Pt has received blood in past without reaction. Past Psychological History: ADD/ADHD, Anxiety, Bipolar, Depression, PTSD Smoking Status: Current every day smoker Past Alcohol Use History: Daily Past Drug Use History: None Reported - Past Family History Father Additional Family Medical History / Comment(s): Father at age 51 from accidental drug overdose. Mother Family Medical History: Fibromyalgia Additional Family Medical History / Comment(s): Mother is alive at age 61 with history of primary immunodeficiency. Brother(s) Additional Family Medical History / Comment(s): Patient has one brother with history of alcohol abuse. Patient does not have any sisters. Patient has 2 children with no major medical problems. Medications and Allergies Home Medications Medication Instructions Recorded Confirmed Type DULoxetine HCL [Cymbalta] 60 mg PO DAILY 02/26/20 10/28/23 History buPROPion XL [Wellbutrin XL] 150 mg PO DAILY 08/14/20 10/28/23 History Cyclobenzaprine [Flexeril] 5 tab PO TID PRN 08/15/21 10/28/23 History Pantoprazole Sodium [Protonix] 40 mg PO BID #30 tab 08/15/21 10/28/23 Rx ARIPiprazole [Abilify] 10 mg PO DAILY 10/28/23 10/28/23 History Albuterol Sulfate [Albuterol 2 puff PO Q4-6H PRN 10/28/23 10/28/23 History Sulfate Hfa] Atomoxetine HCl [Strattera] 100 mg PO DAILY 10/28/23 10/28/23 History Butalb/APAP/Caff 50-325-40Mg 1 - 2 tab PO Q6H PRN MDD 6 TAB/24HR 10/28/23 10/28/23 History [Fioricet 50-325-40] Folic Acid 1 mg PO DAILY 10/28/23 10/28/23 History Phentermine HCl [Adipex-P] 37.5 mg PO DAILY 10/28/23 10/28/23 History Propranolol HCl [Propranolol HCl 160 mg PO DAILY 10/28/23 10/28/23 History ER] Rimegepant Sulfate [Nurtec Odt] 1 tab PO DAILY PRN 10/28/23 10/28/23 History Topiramate [Topiramate ER 150 mg PO DAILY 10/28/23 10/28/23 History (Sprinkle)] busPIRone HCL [Buspirone HCl] 10 mg PO TID 10/28/23 10/28/23 History ondansetron HCL [Zofran] 8 mg PO Q8HR PRN 10/28/23 10/28/23 History Allergies Allergy/AdvReac Type Severity Reaction Status Date / Time adhesive Allergy Rash/Hives Verified 10/28/23 05:21 latex Allergy Rash/Hives Verified 10/28/23 05:21 morphine Allergy Unknown Verified 10/28/23 05:21 prochlorperazine Allergy Unknown Verified 10/28/23 05:21 [From Compazine] ciprofloxacin [From Cipro] AdvReac Hallucinati Verified 10/28/23 05:21 ons citalopram [From Celexa] AdvReac Suicidal Verified 10/28/23 05:21 thoughts diazepam [From Valium] AdvReac Hallucinati Verified 10/28/23 05:21 ons/Anxiety fluoxetine [From Prozac] AdvReac Suicidal Verified 10/28/23 05:21 thoughts metoclopramide [From Reglan] AdvReac Hallucinati Verified 10/28/23 05:21 ons/Anxiety paroxetine [From Paxil] AdvReac Suicidal Verified 10/28/23 05:21 thoughts Penicillins AdvReac Nausea & Verified 10/28/23 05:21 Vomiting Physical Exam Vitals: Vital Signs Temp Pulse Pulse Resp BP BP Pulse Ox 10/28/23 09:24 99 10/28/23 09:21 92 10/28/23 09:02 97.9 F 95 15 117/80 100 10/28/23 07:47 92 18 121/87 98 10/28/23 06:42 92 10/28/23 06:25 90 10/28/23 05:30 101 H 18 102/67 99 10/28/23 05:18 97.5 F L 106 H 16 102/69 99 Intake and Output 10/27/23 10/28/23 10/28/23 21:59 06:59 14:59 Other: Weight Results CBC & Chem 7: 10/28/23 05:33 10/28/23 05:33 Labs: Abnormal Lab Results - Last 24 Hours (Table) 10/28/23 10/28/23 10/28/23 Range/Units 05:33 05:33 05:33 RBC 3.14 L (3.80-5.40) m/uL Hgb 11.2 L (11.4-16.0) gm/dL Hct 32.7 L (34.0-46.0) % MCV 104.2 H (80.0-100.0) fL MCH 35.8 H (25.0-35.0) pg APTT 20.7 L (22.0-30.0) sec Potassium 2.6 L* (3.5-5.1) mmol/L Chloride 111 H (98-107) mmol/L Glucose 106 H (74-99) mg/dL Alkaline Phosphatase 134 H (38-126) U/L
[2023-10-28] MEDS: ARIPiprazole 10 MG TAB PO SCH (14:41)
[2023-10-28] MEDS: buPROPion XL 150 MG TAB.ER.24H PO SCH (14:41)
[2023-10-28] MEDS: DULoxetine HCL 60 MG CAPSULE.DR PO SCH (14:41)
[2023-10-28] MEDS: BUTALB/APAP/CAFF 50-325-40MG TAB PO PRN (14:46)
[2023-10-28] MEDS: busPIRone HCl 10 MG TAB PO SCH (15:52)
[2023-10-28 16:31] VITALS: RESP 16
[2023-10-28] MEDS: HYDROcodone/APAP 10-325MG 1 EACH TAB PO PRN (17:23)
[2023-10-28] MEDS: SUCRALFATE 1 GM TAB PO SCH (17:24)
[2023-10-28] MEDS: PROPRANOLOL LA 80 MG CAP.SA.24H PO SCH (17:24)
[2023-10-28] MEDS: ONDANSETRON 4 MG TAB PO PRN (17:24)
[2023-10-28] MEDS: PANTOPRAZOLE 40 MG TABLET PO SCH (21:24)
[2023-10-29] MEDS: IPRATROPIUM-ALBUTEROL 3 ML NEB INHALATION PRN (01:01)
[2023-10-29 08:34] LABS: HCT 33.5 % (37.2-46.3); HGB 10.9 g/dL (12.0-15.0); MCH 34.9 pg (27.0-32.0); MCHC 32.5 g/dL (32.0-37.0); MCV 107.4 FL (80.0-97.0); Mean Platelet Volume 10.3 FL (9.5-12.2); NRBC Per 100 WBC 0 X 10*3/uL (0.00-0.01); Platelet Count 392 X 10*3/uL (140-440); RBC 3.12 X 10*6/uL (4.10-5.20); RDW 14.8 % (11.5-14.5); WBC 15.73 X 10*3/uL (4.50-10.00)
[2023-10-29 08:42] LABS: Blood Urea Nitrogen 11.9 mg/dL (9.0-27.0); Chloride 108 mmol/L (96-109); Glucose 115 mg/dL (70-110); Potassium 4.3 mmol/L (3.5-5.5); Sodium 138 mmol/L (135-145)
[2023-10-29 08:43] LABS: ALT 30 U/L (8-44); AST 20 U/L (13-35); Albumin 4.1 g/dL (3.8-4.9); Albumin/Globulin Ratio 1.86 Ratio (1.60-3.17); Alkaline Phosphatase 103 U/L (41-126); Calcium 9.6 mg/dL (8.7-10.3); Globulin 2.2 g/dL (1.6-3.3); Total Bilirubin 0.2 mg/dL (0.3-1.2); Total Protein 6.3 g/dL (6.2-8.2)
[2023-10-29] MEDS ORDERED: ARIPiprazole 10 MG TAB PO SCH (09:00)
[2023-10-29] MEDS ORDERED: DULoxetine HCL 60 MG CAPSULE.DR PO SCH (09:00)
[2023-10-29] MEDS ORDERED: buPROPion XL 150 MG TAB.ER.24H PO SCH (09:00)
[2023-10-29 09:25] VITALS: BP 99/66; TEMP 98.2
[2023-10-29] MEDS: FOLIC ACID 1 MG TAB PO SCH (09:33)
[2023-10-29] MEDS: ATOMOXETINE HCL 100 MG PO SCH (09:44)
[2023-10-29] MEDS: TOPIRAMATE 150 MG PO SCH (09:50)
[2023-10-29 10:01] VITALS: PULSE 89
== END 2023-10-29 12:28 | disposition home or self-care (01) ==
LOC: EC 05:14 → 6NMEDSUR 07:00
PROVIDERS: ADMIT Internal Medicine Geriatric Medicine; ATTEND Internal Medicine Geriatric Medicine
DX: J44.1 Chronic obstructive pulmonary disease with (acute) exacerbation (principal); J20.8 Acute bronchitis due to other specified organisms; D64.9 Anemia, unspecified; E87.6 Hypokalemia; K21.9 Gastro-esophageal reflux disease without esophagitis; F31.9 Bipolar disorder, unspecified; F90.9 Attention-deficit hyperactivity disorder, unspecified type; F43.10 Post-traumatic stress disorder, unspecified; M79.7 Fibromyalgia; G43.909 Migraine, unspecified, not intractable, without status migrainosus; G89.4 Chronic pain syndrome; F17.200 Nicotine dependence, unspecified, uncomplicated; Z79.899 Other long term (current) drug therapy; Z88.5 Allergy status to narcotic agent; Z88.1 Allergy status to other antibiotic agents; Z91.040 Latex allergy status
CPT/HCPCS: 96376 ×2; 96361 ×2; 96366 ×2; 96367; 96365; 96375; 99285; 36415; 94640 ×4; 94760; 93005; 80053 ×2; 83605; 83735; 84132; 85025; 85027; 85610; 85730; 87636; 71046; G0378 ×2; J2930 ×2; J0696; J3480; J1170

== ENCOUNTER 2024-05-21 10:39 | Emergency (ER) | payer MEDICAID, OTHER ==
[2024-05-21 11:26] LABS: Basophils # (A) 0.1 k/uL (0-0.2); Basophils % (A) 1 %; Eosinophils # (A) 0.2 k/uL (0-0.7); Eosinophils % (A) 2 %; HGB 11.6 gm/dL (11.4-16.0); Hypochromasia Moderate; Lymphocytes % (A) 39 %; MCH 28.7 pg (25.0-35.0); MCHC 31.3 g/dL (31.0-37.0); MCV 91.7 fL (80.0-100.0); Mean Platelet Volume 6.9; Monocytes # (A) 0.6 k/uL (0-1.0); Monocytes % (A) 7 %; Neutrophils # (A) 3.7 k/uL (1.3-7.7); Neutrophils % (A) 47 %; Platelet Count 533 k/uL (150-450); RBC 4.04 m/uL (3.80-5.40); RDW 15.7 % (11.5-15.5); WBC 7.9 k/uL (3.8-10.6)
[2024-05-21 11:31] LABS: ALT 23 U/L (4-34); AST 32 U/L (14-36); African American GFR (CKD) >90 (>60 ml/min/1.73 sqM); Albumin 4.5 g/dL (3.5-5.0); Alkaline Phosphatase 102 U/L (38-126); Anion Gap 12 mmol/L; Blood Urea Nitrogen 17 mg/dL (7-17); Calcium 9.5 mg/dL (8.4-10.2); Carbon Dioxide 21 mmol/L (22-30); Chloride 109 mmol/L (98-107); Glucose 93 mg/dL (74-99); Lipase 37 U/L (23-300); Non-African American GFR(CKD) >90 (>60 ml/min/1.73 sqM); Potassium 4.3 mmol/L (3.5-5.1); Sodium 142 mmol/L (137-145); Total Bilirubin 0.5 mg/dL (0.2-1.3); Total Protein 7.2 g/dL (6.3-8.2)
[2024-05-21 11:38] LABS: Partial Thromboplastin Time 20.7 sec (22.0-30.0)
[2024-05-21 11:41] LABS: Prothrombin Time 11.1 sec (10.0-12.5)
--- NOTE | 2024-05-21 12:19 | ED ---
General Adult HPI - General Source: patient, RN notes reviewed Mode of arrival: ambulatory Limitations: no limitations <PeytonJayden Tonya - Last Filed: 05/21/24 12:18> - General Source: patient, RN notes reviewed Mode of arrival: ambulatory Limitations: no limitations <Meghan Steel - Last Filed: 05/21/24 17:11> - General Chief complaint: GI Bleed Stated complaint: Blood in vomit Time Seen by Provider: 05/21/24 10:58 - History of Present Illness Initial comments: Quick [id number] female presents emergency department chief complaint of nausea vomiting. Patient states she started vomiting throughout the night. Patient does admit that she had recent alcohol use that more likely cause her sy mptoms. She states she has history of peptic ulcer disease is noticed after several bouts of emesis she noticed some bright red blood. She has some discomfort denies any melanotic stools. Denies any fevers or chills no chest pain no other complaints. (Jayden Todd) This is a 43-year-old female who presents to the emergency department for abdominal pain, nausea, and vomiting. States that yesterday she had generalized lower abdominal pain with nausea and vomiting. She has now started to notice that she had some bright red blood mixed in with her vomit after she had thrown up several times. Reports a history of ulcers is concerned about one of these causing the bleeding. Due to insurance issues she has not been able to take her Protonix or any other medications for that in several months. Also states that she broke her left wrist this summer. She took the brace off last night and heard a crack and is concerned about the injury. (Meghan Steel) - Related Data Home Medications Medication Instructions Recorded Confirmed DULoxetine HCL [Cymbalta] 60 mg PO BID 02/26/20 05/21/24 buPROPion XL [Wellbutrin XL] 150 mg PO DAILY 08/14/20 05/21/24 Cyclobenzaprine [Flexeril] 5 tab PO TID PRN 08/15/21 05/21/24 ARIPiprazole [Abilify] 10 mg PO DAILY 10/28/23 05/21/24 Albuterol Sulfate [Albuterol 2 puff INHALATION RT-Q4H PRN 10/28/23 05/21/24 Sulfate Hfa] Atomoxetine HCl [Strattera] 100 mg PO DAILY 10/28/23 05/21/24 Butalb/APAP/Caff 50-325-40Mg 1 - 2 tab PO Q6H PRN MDD 6 TAB/24HR 10/28/23 05/21/24 [Fioricet 50-325-40] Folic Acid 1 mg PO DAILY 10/28/23 05/21/24 Rimegepant Sulfate [Nurtec Odt] 1 tab PO DAILY PRN 10/28/23 05/21/24 Topiramate [Topiramate ER 150 mg PO DAILY 10/28/23 05/21/24 (Sprinkle)] busPIRone HCL 10 mg PO TID PRN 10/28/23 05/21/24 Dicyclomine [Bentyl] 10 mg PO DIRECTED PRN 05/21/24 05/21/24 Ipratropium-Albuterol Nebulize 3 ml INHALATION RT-QID PRN 05/21/24 05/21/24 [Duoneb 0.5 mg-3 mg/3 ml Soln] Metoprolol Succinate (ER) [Toprol 100 mg PO DAILY 05/21/24 05/21/24 Xl] Naproxen [EC-Naprosyn] 500 mg PO BID PRN 05/21/24 05/21/24 Previous Rx's Medication Instructions Recorded Pantoprazole Sodium [Protonix] 40 mg PO BID #30 tab 08/15/21 Ondansetron Odt [Zofran Odt] 4 mg PO Q8HR PRN #20 tab 05/21/24 Pantoprazole Sodium 40 mg PO DAILY #30 tab 05/21/24 Sucralfate [Carafate] 1 gm PO TID 14 Days #42 tab 05/21/24 Allergies Allergy/AdvReac Type Severity Reaction Status Date / Time adhesive Allergy Rash/Hives Verified 05/21/24 15:14 latex Allergy Rash/Hives Verified 05/21/24 15:14 morphine Allergy Nausea & Verified 05/21/24 15:14 Vomiting prochlorperazine Allergy Nausea & Verified 05/21/24 15:14 [From Compazine] Vomiting ciprofloxacin [From Cipro] AdvReac Hallucinati Verified 05/21/24 15:14 ons citalopram [From Celexa] AdvReac Suicidal Verified 05/21/24 15:14 thoughts diazepam [From Valium] AdvReac Hallucinati Verified 05/21/24 15:14 ons/Anxiety fluoxetine [From Prozac] AdvReac Suicidal Verified 05/21/24 15:14 thoughts metoclopramide [From Reglan] AdvReac Hallucinati Verified 05/21/24 15:14 ons/Anxiety paroxetine [From Paxil] AdvReac Suicidal Verified 05/21/24 15:14 thoughts Penicillins AdvReac Nausea & Verified 05/21/24 15:14 Vomiting Review of Systems ROS Other: All systems not noted in ROS Statement are negative. <Jayden Todd - Last Filed: 05/21/24 12:18> ROS Other: All systems not noted in ROS Statement are negative. <Meghan Steel - Last Filed: 05/21/24 17:11> ROS Statement: Those systems with pertinent positive or pertinent negative responses have been documented in the HPI. Past Medical History Past Medical History: Asthma, COPD, Fibromyalgia, GERD/Reflux, GI Bleed Additional Past Medical History / Comment(s): covid + pneumonia 10/30/2020 complicated by respiratory failure, intubation, mechanical ventilation, bilateral pneumothoraces, COPD, Other hx: Primary immunodeficiency, antral ulcers, GI bleed, anemia, IBS, migraines, back pain, TMJ, seasonal allergies History of Any Multi-Drug Resistant Organisms: None Reported Past Surgical History: Breast Surgery, Ear Surgery, Uterine Ablation Additional Past Surgical History / Comment(s): EGDs, colonoscopies, bilateral breast augmentation, septoplasty, L ear trauma/reattached. Past Anesthesia/Blood Transfusion Reactions: No Reported Reaction, Motion Sickness Additional Past Anesthesia/Blood Transfusion Reaction / Comment(s): Pt has received blood in past without reaction. Past Psychological History: ADD/ADHD, Anxiety, Bipolar, Depression, PTSD Smoking Status: Former smoker Past Alcohol Use History: Abuse, Daily, Heavy Past Drug Use History: Marijuana - Past Family History Father Additional Family Medical History / Comment(s): Father at age 51 from accidental drug overdose. Mother Family Medical History: Fibromyalgia Additional Family Medical History / Comment(s): Mother is alive at age 61 with history of primary immunodeficiency. Brother(s) Additional Family Medical History / Comment(s): Patient has one brother with history of alcohol abuse. Patient does not have any sisters. Patient has 2 children with no major medical problems. <Jayden Todd - Last Filed: 05/21/24 12:18> General Exam Limitations: no limitations <Jayden Todd - Last Filed: 05/21/24 12:18> Limitations: no limitations General appearance: alert, in no apparent distress Head exam: Present: atraumatic, normocephalic, normal inspection Respiratory exam: Present: normal lung sounds bilaterally. Absent: respiratory distress, wheezes, rales, rhonchi, stridor Cardiovascular Exam: Present: regular rate, normal rhythm, normal heart sounds. Absent: systolic murmur, diastolic murmur, rubs, gallop, clicks GI/Abdominal exam: Present: soft, tenderness (Periumbilical), normal bowel sounds. Absent: distended, guarding, rebound, rigid Neurological exam: Present: alert, oriented X3, CN II-XII intact Psychiatric exam: Present: normal affect, normal mood Skin exam: Present: warm, dry, intact, normal color. Absent: rash <Meghan Steel - Last Filed: 05/21/24 17:11> - General Exam Comments Initial Comments: Visual Physical Exam Vital signs reviewed General: Well-appearing, nontoxic, no acute distress. Head: Normocephalic, atraumatic Eyes: PERRLA, EOMI ENT: Airway patent Chest: Nonlabored breathing Skin: No visual rash, normal skin tone Neuro: Alert and oriented 3 Musculoskeletal: No gross abnormalities (Jayden Todd) Course Vital Signs 05/21/24 05/21/24 05/21/24 10:42 13:30 14:45 Temperature 98.4 F 98.0 F 98.2 F Pulse Rate 117 H 71 72 Respiratory 22 18 18 Rate Blood Pressure 129/92 110/62 115/80 O2 Sat by Pulse 97 97 97 Oximetry 05/21/24 16:50 Temperature 97.6 F Pulse Rate 97 Respiratory 17 Rate Blood Pressure 127/85 O2 Sat by Pulse 100 Oximetry Procedures - Orthopedic Splinting/Casting Injury #1 Side: left Upper Extremity Injury Location: wrist Upper Extremity Immobilizer: volar splint <Meghan Steel - Last Filed: 05/21/24 17:11> Medical Decision Making - Lab Data Result diagrams: 05/21/24 10:49 05/21/24 10:49 <Jayden Todd - Last Filed: 05/21/24 12:18> - Lab Data Result diagrams: 05/21/24 10:49 05/21/24 10:49 - Radiology Data Radiology results: report reviewed, image reviewed <Meghan Steel - Last Filed: 05/21/24 17:11> - Medical Decision Making I completed the quick note portion of this chart signed Jayden Todd PA-C (Jayden Todd) This is a 43 year old female who presents to the emergency department for abdominal pain, nausea, and vomiting. Was pt. sent in by a medical professional or institution? @ -No Did you speak to anyone other than the patient for history? @ -No Did you review nursing and triage notes? @ -Yes, and I agree, it is accurate with regards to the patient's symptoms. Were old charts reviewed? @ -No Differential Diagnosis? @ -Differential Abdominal Pain Women: Appendicitis, Cholecystitis, diverticulosis, ischemic bowel, pancreatitis, hepatitis, UTI, gastroenteritis, AAA, incarcerated hernia, bowel obstruction, constipation, inflammatory bowel, hepatitis, peptic ulcer disease, splenic infarction, perforated viscus, vulvitis, ovarian torsion, PID, kidney stone, placenta abruption, this is not meant to be an all-inclusive list EKG interpreted by me (3pts min.)? @ -Not obtained X-rays interpreted by me (1pt min.)? @ -X-ray of the left forearm obtained. My interpretation identifies a distal radius fracture. CT interpreted by me (1pt min.)? @ -CT scan of the abdomen and pelvis obtained. My interpretation identifies no evidence of bowel wall thickening or free air. U/S interpreted by me (1pt. min.)? @ -Not obtained What testing was considered but not performed? (CT, X-rays, U/S, labs)? Why? @ -None What meds were considered but not given? Why? @ -None Did you discuss the management of the patient with other professionals? @ -No Did you reconcile home meds? @ -No Was smoking cessation discussed for >3mins.? @ -No Was critical care preformed (if so, how long)? @ -No Were there social determinants of health that impacted care today? How? (Home lessness, low income, unemployed, alcoholism, drug addiction, transportation, low edu. Level, literacy, decrease access to med. care, fci, rehab)? @ -No Was there de-escalation of care discussed even if they declined? (Discuss DNR or withdrawal of care, Hospice)? @ -No What co-morbidities impacted this encounter? (DM, HTN, Smoking, COPD, CAD, Ca ncer, CVA, Hep., AIDS, mental health diagnosis, sleep apnea, morbid obesity)? @ -PUD Was patient admitted / discharged? @ -Discharged. Lab work unremarkable. Hemoglobin WNL at 11.6. CT scan of the abdomen and pelvis obtained revealing no acute process. X-ray of the left forearm obtained demonstrating the distal radius fracture. We do not have the prior x-ray for comparison to see if this fracture has changed at all. She was subsequently put in a new volar splint to keep it stabilized for the meantime until she is able to see orthopedics. Symptoms well-controlled in the emergency department. She was tolerating oral intake afterwards. Prescription for Protonix, Carafate, and Zofran provided. Patient discharged home in stable condition. Advised follow-up with GI as well as orthopedics regarding the distal radius fracture. Case discussed with ED attending Dr. Neri. Return precautions reviewed in depth, the patient is instructed to return to the emergency department with any new, worsening, or concerning symptoms. Patient verbalized understanding. Undiagnosed new problem with uncertain prognosis? @ -None Drug Therapy requiring intensive monitoring for toxicity (Heparin, Nitro, Insulin, Cardizem)? @ -None Were any procedures done? @ -Left volar splint application Diagnosis/symptom? @ -Abdominal pain, nausea and vomiting Acute, or Chronic, or Acute on Chronic? @ -Acute Uncomplicated (without systemic symptoms) or Complicated (systemic symptoms)? @ -Uncomplicated Side effects of treatment? @ -None Exacerbation, Progression, or Severe Exacerbation] @ -Not applicable Poses a threat to life or bodily function? @ -No (Meghan Steel) - Lab Data Lab Results 05/21/24 05/21/24 05/21/24 Range/Units 10:49 10:49 10:49 WBC 7.9 (3.8-10.6) k/uL RBC 4.04 (3.80-5.40) m/uL Hgb 11.6 (11.4-16.0) gm/dL Hct 37.0 (34.0-46.0) % MCV 91.7 (80.0-100.0) fL MCH 28.7 (25.0-35.0) pg MCHC 31.3 (31.0-37.0) g/dL RDW 15.7 H (11.5-15.5) % Plt Count 533 H (150-450) k/uL MPV 6.9 Neutrophils % 47 % Lymphocytes % 39 % Monocytes % 7 % Eosinophils % 2 % Basophils % 1 % Neutrophils # 3.7 (1.3-7.7) k/uL Lymphocytes # 3.0 (1.0-4.8) k/uL Monocytes # 0.6 (0-1.0) k/uL Eosinophils # 0.2 (0-0.7) k/uL Basophils # 0.1 (0-0.2) k/uL Hypochromasia Moderate PT 11.1 (10.0-12.5) sec INR 1.0 (<1.2) APTT 20.7 L (22.0-30.0) sec Sodium 142 (137-145) mmol/L Potassium 4.3 (3.5-5.1) mmol/L Chloride 109 H (98-107) mmol/L Carbon Dioxide 21 L (22-30) mmol/L Anion Gap 12 mmol/L BUN 17 (7-17) mg/dL Creatinine 0.62 (0.52-1.04) mg/dL Est GFR (CKD-EPI)AfAm >90 (>60 ml/min/1.73 sqM) Est GFR (CKD-EPI)NonAf >90 (>60 ml/min/1.73 sqM) Glucose 93 (74-99) mg/dL Calcium 9.5 (8.4-10.2) mg/dL Total Bilirubin 0.5 (0.2-1.3) mg/dL AST 32 (14-36) U/L ALT 23 (4-34) U/L Alkaline Phosphatase 102 (38-126) U/L Total Protein 7.2 (6.3-8.2) g/dL Albumin 4.5 (3.5-5.0) g/dL Lipase 37 (23-300) U/L Disposition <Jayden Todd Tonya - Last Filed: 05/21/24 12:18> Is patient prescribed a controlled substance at d/c from ED?: No Time of Disposition: 15:43 <LucianklausMeghan - Last Filed: 05/21/24 17:11> Clinical Impression: Abdominal pain, Nausea and vomiting, Fracture of left distal radius Disposition: HOME SELF-CARE Instructions (If sedation given, give patient instructions): Peptic Ulcer (ED), Acute Nausea and Vomiting (ED), Abdominal Pain (ED) Additional Instructions: Return to the emergency department with any new, worsening, or concerning symptoms. Begin taking the pantoprazole daily. Take this 30 to 60 minutes before eating and taking other medication for the best effect. Take the Carafate 3 times a day. Take the Zofran up to every 8 hours as needed for nausea and vomiting. Follow up with your primary care provider in 1-2 days. Follow up with orthopedics regarding the wrist fracture. Prescriptions: Sucralfate [Carafate] 1 gm PO TID 14 Days #42 tab Pantoprazole Sodium 40 mg PO DAILY #30 tab Ondansetron Odt [Zofran Odt] 4 mg PO Q8HR PRN #20 tab PRN Reason: Nausea And Vomiting Referrals: Patricia Gonzalez MD [Primary Care Provider] - 1-2 days
[2024-05-21] MEDS ORDERED: LORazepam 2 MG/ML INJ IV STA (13:01)
--- NOTE | 2024-05-21 13:34 | CT ---
EXAMINATION TYPE: CT abdomen pelvis w con CT DLP: 736.4 mGycm, Automated exposure control for dose reduction was used. DATE OF EXAM: 05/21/2024 1:23 PM COMPARISON: CT abdomen pelvis 12/03/2020 CLINICAL INDICATION:Female, 43 years old with history of Periumbilical pain, hematemesis; abd pain TECHNIQUE: Standard CT of the abdomen and pelvis following the administration of 100 cc of Isovue 3 00 IV contrast material. Coronal and sagittal reformats were performed. FINDINGS: LOWER CHEST: Right middle lobe subsegmental atelectasis. ABDOMEN LIVER: Unremarkable GALLBLADDER AND BILE DUCTS: Mildly distended gallbladder. No surrounding inflammatory changes. No carrie iary duct dilatation. PANCREAS: Unremarkable. SPLEEN: Unremarkable. ADRENAL GLANDS: Unremarkable. KIDNEYS AND URETERS: No evidence of hydronephrosis or renal calculus. The kidneys enhance symmetrical ly. Contrast is demonstrated within both collecting systems on the delayed phase. PELVIS BLADDER: Unremarkable REPRODUCTIVE: Anteverted uterus. Left ovary 2.0 cm rim-enhancing luteal cyst. ABDOMEN & PELVIS STOMACH AND BOWEL: Tiny hiatal hernia, duodenum is unremarkable. No surrounding inflammatory changes involving the stomach. No focal bowel wall thickening or surrounding inflammatory changes. The append ix is within normal limits. No evidence of bowel obstruction. PERITONEUM: No evidence of pneumoperitoneum or free fluid. VASCULATURE: No evidence of aortic aneurysm. Few pelvic phleboliths. MUSCULOSKELETAL: No acute osseous abnormalities LYMPH NODES: No evidence for lymphadenopathy. SOFT TISSUE/ABDOMINAL WALL: Unremarkable IMPRESSION: No CT evidence for an acute abdominal/pelvic process. [facility], , 05/21/2024 1:32 PM
[2024-05-21] MEDS: SODIUM CHLORIDE 0.9% 1,000 ML IV ONE (13:50)
[2024-05-21] MEDS: SODIUM CHLORIDE 0.9% 500 ML 500 ML IV ONE (13:51)
[2024-05-21] MEDS: PANTOPRAZOLE 40 MG/10 ML VIAL IVP STA (13:51)
[2024-05-21] MEDS: ONDANSETRON 4 MG/2 ML VIAL IVP STA ×2 (13:55→14:55)
[2024-05-21] MEDS: HYDROmorphone 1 MG/ML 1 ML SYRINGE IVP STA (13:58)
[2024-05-21] MEDS: ALPRAZolam 0.5 MG TAB PO STA (14:58)
[2024-05-21] MEDS: droPERidol 5 MG/2 ML VIAL IVP ONE (15:09)
--- NOTE | 2024-05-21 15:27 | XR ---
EXAMINATION TYPE: XR forearm LT DATE OF EXAM: 05/21/2024 3:22 PM CLINICAL INDICATION: Female, 43 years old with history of Pain; COMPARISON: None TECHNIQUE: XR forearm LT; forearm was examined in AP and lateral projections. FINDINGS/IMPRESSION: Distal left radius fracture without definitive intra-articular extension. There is mild dorsal angula tion. [facility], , 05/21/2024 3:24 PM
[2024-05-21 16:57] VITALS: BP 127/85; PULSE 97; RESP 17; TEMP 97.6
== END 2024-05-21 16:57 | disposition home or self-care (01) ==
LOC: EC 10:39
CPT/HCPCS: 29125; 36415; 74177; 80053; 83690; 85025; 85610; 85730; 96361; 96374; 96375; 96376; 99285

== ENCOUNTER 2024-05-30 04:14 | Emergency (ER) | payer MEDICAID, OTHER ==
[2024-05-30 04:20] VITALS: RESP 20
--- NOTE | 2024-05-30 04:29 | ED ---
Back Pain [facility] - General Chief Complaint: Back Pain/Injury Stated Complaint: Back Pain, Nausea Time Seen by Provider: 05/30/24 04:27 Source: patient, RN notes reviewed, old records reviewed Limitations: no limitations - History of Present Illness Initial Comments: This is a 43-year-old female to the ER for evaluation of back pain patient has worsening back pain for a few days believed due to repetitive chores at home. No trauma MD Complaint: back pain -: days(s) Similar Symptoms Previously: Yes Place: home Radiation: none Severity: moderate Severity scale (1-10): 6 Quality: sharp, stabbing Consistency: constant Improves With: none Worsens With: none Context: while lifting, turning/twisting, bending Associated Symptoms: denies other symptoms Treatments Prior to Arrival: other (0) - Related Data Home Medications Medication Instructions Recorded Confirmed DULoxetine HCL [Cymbalta] 60 mg PO BID 02/26/20 05/21/24 buPROPion XL [Wellbutrin XL] 150 mg PO DAILY 08/14/20 05/21/24 Cyclobenzaprine [Flexeril] 5 tab PO TID PRN 08/15/21 05/21/24 ARIPiprazole [Abilify] 10 mg PO DAILY 10/28/23 05/21/24 Albuterol Sulfate [Albuterol 2 puff INHALATION RT-Q4H PRN 10/28/23 05/21/24 Sulfate Hfa] Atomoxetine HCl [Strattera] 100 mg PO DAILY 10/28/23 05/21/24 Butalb/APAP/Caff 50-325-40Mg 1 - 2 tab PO Q6H PRN MDD 6 TAB/24HR 10/28/23 05/21/24 [Fioricet 50-325-40] Folic Acid 1 mg PO DAILY 10/28/23 05/21/24 Rimegepant Sulfate [Nurtec Odt] 1 tab PO DAILY PRN 10/28/23 05/21/24 Topiramate [Topiramate ER 150 mg PO DAILY 10/28/23 05/21/24 (Sprinkle)] busPIRone HCL 10 mg PO TID PRN 10/28/23 05/21/24 Dicyclomine [Bentyl] 10 mg PO DIRECTED PRN 05/21/24 05/21/24 Ipratropium-Albuterol Nebulize 3 ml INHALATION RT-QID PRN 05/21/24 05/21/24 [Duoneb 0.5 mg-3 mg/3 ml Soln] Metoprolol Succinate (ER) [Toprol 100 mg PO DAILY 05/21/24 05/21/24 Xl] Naproxen [EC-Naprosyn] 500 mg PO BID PRN 05/21/24 05/21/24 Previous Rx's Medication Instructions Recorded Pantoprazole Sodium [Protonix] 40 mg PO BID #30 tab 08/15/21 Ondansetron Odt [Zofran Odt] 4 mg PO Q8HR PRN #20 tab 05/21/24 Pantoprazole Sodium 40 mg PO DAILY #30 tab 05/21/24 Sucralfate [Carafate] 1 gm PO TID 14 Days #42 tab 05/21/24 Allergies Allergy/AdvReac Type Severity Reaction Status Date / Time adhesive Allergy Rash/Hives Verified 05/30/24 04:19 latex Allergy Rash/Hives Verified 05/30/24 04:19 morphine Allergy Nausea & Verified 05/30/24 04:19 Vomiting prochlorperazine Allergy Nausea & Verified 05/30/24 04:19 [From Compazine] Vomiting ciprofloxacin [From Cipro] AdvReac Hallucinati Verified 05/30/24 04:19 ons citalopram [From Celexa] AdvReac Suicidal Verified 05/30/24 04:19 thoughts diazepam [From Valium] AdvReac Hallucinati Verified 05/30/24 04:19 ons/Anxiety fluoxetine [From Prozac] AdvReac Suicidal Verified 05/30/24 04:19 thoughts metoclopramide [From Reglan] AdvReac Hallucinati Verified 05/30/24 04:19 ons/Anxiety paroxetine [From Paxil] AdvReac Suicidal Verified 05/30/24 04:19 thoughts Penicillins AdvReac Nausea & Verified 05/30/24 04:19 Vomiting Review of Systems ROS Statement: Those systems with pertinent positive or pertinent negative responses have been documented in the HPI. ROS Other: All systems not noted in ROS Statement are negative. Past Medical History Past Medical History: Asthma, COPD, Fibromyalgia, GERD/Reflux, GI Bleed Additional Past Medical History / Comment(s): covid + pneumonia 10/30/2020 complicated by respiratory failure, intubation, mechanical ventilation, bilateral pneumothoraces, COPD, Other hx: Primary immunodeficiency, antral ulcers, GI bleed, anemia, IBS, migraines, back pain, TMJ, seasonal allergies History of Any Multi-Drug Resistant Organisms: None Reported Past Surgical History: Breast Surgery, Ear Surgery, Uterine Ablation Additional Past Surgical History / Comment(s): EGDs, colonoscopies, bilateral breast augmentation, septoplasty, L ear trauma/reattached. Past Anesthesia/Blood Transfusion Reactions: No Reported Reaction, Motion Sickn ess Additional Past Anesthesia/Blood Transfusion Reaction / Comment(s): Pt has received blood in past without reaction. Past Psychological History: ADD/ADHD, Anxiety, Bipolar, Depression, PTSD Smoking Status: Former smoker Past Alcohol Use History: Abuse, Daily, Heavy Past Drug Use History: Marijuana - Past Family History Father Additional Family Medical History / Comment(s): Father at age 51 from accidental drug overdose. Mother Family Medical History: Fibromyalgia Additional Family Medical History / Comment(s): Mother is alive at age 61 with history of primary immunodeficiency. Brother(s) Additional Family Medical History / Comment(s): Patient has one brother with history of alcohol abuse. Patient does not have any sisters. Patient has 2 children with no major medical problems. General Exam Limitations: no limitations General appearance: alert, in no apparent distress Head exam: Present: atraumatic, normocephalic, normal inspection Eye exam: Present: normal appearance, PERRL, EOMI. Absent: scleral icterus, conjunctival injection, periorbital swelling ENT exam: Present: normal exam, mucous membranes moist Neck exam: Present: normal inspection. Absent: tenderness, meningismus, lymphadenopathy Respiratory exam: Present: normal lung sounds bilaterally. Absent: respiratory distress, wheezes, rales, rhonchi, stridor Cardiovascular Exam: Present: regular rate, normal rhythm, normal heart sounds. Absent: systolic murmur, diastolic murmur, rubs, gallop, clicks GI/Abdominal exam: Present: soft, normal bowel sounds. Absent: distended, tenderness, guarding, rebound, rigid Extremities exam: Present: normal inspection, full ROM, normal capillary refill. Absent: tenderness, pedal edema, joint swelling, calf tenderness Back exam: Present: normal inspection Neurological exam: Present: alert, oriented X3, CN II-XII intact Psychiatric exam: Present: normal affect, normal mood Skin exam: Present: warm, dry, intact, normal color. Absent: rash Course Vital Signs 05/30/24 05/30/24 04:17 05:23 Temperature 97.6 F 97.8 F Pulse Rate 111 H 91 Respiratory 20 20 Rate Blood Pressure 122/69 120/71 O2 Sat by Pulse 100 100 Oximetry - Reevaluation(s) Reevaluation #1: 05/30/24 Medical records reviewed Reevaluation #2: 05/30/24 Patient informed of results and questions answered Reevaluation #3: 05/30/24 Symptoms are improved here in the ER Reevaluation #4: 06/01/24 01:12 Was pt. sent in by a medical professional or institution (ALVINO Roa, PEDIATRIC DERMATOLOGIST, urgent care, hospital, or fpc...) When possible be specific @ -no Did you speak to anyone other than the patient for history (EMS, parent, family, police, friend...)? What history was obtained from this source @ -no Did you review nursing and triage notes (agree or disagree)? Why? @ -agree Are old charts reviewed (outside hosp., previous admission, EMS record, old EKG, old radiological studies, urgent care reports/EKG's, fpc records)? Report findings @ -yes Differential Diagnosis (chest pain, altered mental status, abdominal pain women, abdominal pain men, vaginal bleeding, weakness, fever, dyspnea, syncope, headache, dizziness, GI bleed, back pain, seizure, CVA, palpatations, mental health, musculoskeletal)? @ -prior EKG interpreted by me (3pts min.). @ -no X-rays interpreted by me (1pt min.). @ -no CT interpreted by me (1pt min.). @ -no U/S interpreted by me (1pt. min.). @ -no What testing was considered but not performed or refused? (CT, X-rays, U/S, labs)? Why? @ -none What meds were considered but not given or refused? Why? @ -none Did you discuss the management of the patient with other professionals (professionals i.e. ALVINO Roa, PEDIATRIC DERMATOLOGIST, lab, RT, psych nurse, social service liaison, operating room assistant, teacher, loss prevention officer, rn case manager)? Give summary @ -no Was smoking cessation discussed for >3mins.? @ -no Was critical care preformed (if so, how long)? @ -no Were there social determinants of health that impacted care today? How? (Homelessness, low income, unemployed, alcoholism, drug addiction, transportation, low edu. Level, literacy, decrease access to med. care, fdc, rehab)? @ -none Was there de-escalation of care discussed even if they declined (Discuss DNR or withdrawal of care, Hospice)? DNR status @ -no What co-morbidities impacted this encounter? (DM, HTN, Smoking, COPD, CAD, Cancer, CVA, ARF, Chemo, Hep., AIDS, mental health diagnosis, sleep apnea, morbid obesity)? @ -none Was patient admitted / discharged? Hospital course, mention meds given and route, prescriptions, significant lab abnormalities, going to OR and other pertinent info. @ - 43 female to ER for recurrent back pain. Pain is improved here in the ER patient feels well and can be discharged home Discharge chronic back pain Undiagnosed new problem with uncertain prognosis? @ -no Drug Therapy requiring intensive monitoring for toxicity (Heparin, Nitro, Insulin, Cardizem)? @ -no Were any procedures done? @ -no Diagnosis/symptom? @ - Acute, or Chronic, or Acute on Chronic? @ -Acute Uncomplicated (without systemic symptoms) or Complicated (systemic symptoms)? @ -Complicated Side effects of treatment? @ -no Exacerbation, Progression, or Severe Exacerbation? @ -exacerbation Poses a threat to life or bodily function? How? (Chest pain, [place], [place], pneumonia, PE, COPD, DKA, ARF, appy, cholecystitis, CVA, Diverticulitis, Homicidal, Suicidal, threat to staff... and all critical care pts) @ -no Reevaluation #5: Differential Back Pain: Strain, zoster, cauda equina syndrome, epidural abscess, vertebral osteomyelitis, discitis, fracture, subluxation, disc herniation, DJD, spinal stenosis, dissection, AAA, pancreatitis, peptic ulcer disease, pyelonephritis, kidney stone, this is not meant to be an all-inclusive list. Medical Decision Making - Medical Decision Making 43 female to ER for recurrent back pain. Pain is improved here in the ER patient feels well and can be discharged home Disposition Clinical Impression: Mechanical back pain, Thoracic back pain Disposition: HOME SELF-CARE Condition: Good Instructions (If sedation given, give patient instructions): Back Pain (ED) Is patient prescribed a controlled substance at d/c from ED?: No Referrals: Patricia Gonzalez MD [Primary Care Provider] - 1-2 days Time of Disposition: 04:45
[2024-05-30] MEDS: IBUPROFEN 600 MG STARTER PACK 4 TAB BTL PO STA (05:06)
[2024-05-30] MEDS: traMADol 50 MG TAB PO STA (05:09)
[2024-05-30] MEDS: KETOROLAC 15 MG/ML 1 ML VIAL IM STA (05:11)
[2024-05-30] MEDS: traMADol 50 MG STARTER PACK 3 TAB BTL PO STA (05:11)
[2024-05-30 05:24] VITALS: BP 120/71; PULSE 91; TEMP 97.8
== END 2024-05-30 05:24 | disposition home or self-care (01) ==
LOC: EC 04:14
CPT/HCPCS: 96372; 99283

== ENCOUNTER 2024-06-25 02:13 | Emergency (ER) | payer MEDICAID, OTHER ==
[2024-06-25 02:18] VITALS: RESP 18; TEMP 98.6
[2024-06-25] MEDS: SODIUM CHLORIDE 0.9% 1,000 ML IV STA (03:03)
[2024-06-25 03:04] LABS: Anisocytosis Slight; Basophils # (A) 0.1 k/uL (0-0.2); Basophils % (A) 1 %; Eosinophils # (A) 0.5 k/uL (0-0.7); Eosinophils % (A) 6 %; HCT 35.7 % (34.0-46.0); HGB 11.3 gm/dL (11.4-16.0); Hypochromasia Slight; Lymphocytes # (A) 3.5 k/uL (1.0-4.8); Lymphocytes % (A) 43 %; MCH 28.3 pg (25.0-35.0); MCHC 31.6 g/dL (31.0-37.0); MCV 89.6 fL (80.0-100.0); Mean Platelet Volume 7.1; Monocytes # (A) 0.5 k/uL (0-1.0); Monocytes % (A) 6 %; Neutrophils # (A) 3.3 k/uL (1.3-7.7); Neutrophils % (A) 41 %; Platelet Count 487 k/uL (150-450); RBC 3.99 m/uL (3.80-5.40); RDW 16.1 % (11.5-15.5)
[2024-06-25] MEDS: PANTOPRAZOLE 40 MG/10 ML VIAL IVP STA (03:04)
[2024-06-25] MEDS: ONDANSETRON 4 MG/2 ML VIAL IVP STA (03:06)
[2024-06-25] MEDS: SUCRALFATE 1 GM TAB PO STA (03:06)
[2024-06-25 03:20] LABS: Partial Thromboplastin Time 21.2 sec (22.0-30.0); Prothrombin Time 10.5 sec (10.0-12.5)
[2024-06-25 03:22] LABS: ALT 22 U/L (4-34); AST 24 U/L (14-36); African American GFR (CKD) 87 (>60 ml/min/1.73 sqM); Albumin 4.6 g/dL (3.5-5.0); Alkaline Phosphatase 91 U/L (38-126); Anion Gap 13 mmol/L; Blood Urea Nitrogen 22 mg/dL (7-17); Calcium 9.8 mg/dL (8.4-10.2); Carbon Dioxide 16 mmol/L (22-30); Chloride 111 mmol/L (98-107); Glucose 94 mg/dL (74-99); Lipase 66 U/L (23-300); Non-African American GFR(CKD) 76 (>60 ml/min/1.73 sqM); Potassium 3.6 mmol/L (3.5-5.1); Sodium 140 mmol/L (137-145); Total Bilirubin 0.2 mg/dL (0.2-1.3); Total Protein 7.5 g/dL (6.3-8.2)
--- NOTE | 2024-06-25 04:29 | ED ---
Nausea/Vomiting/Diarrhea HPI - General Chief complaint: Nausea/Vomiting/Diarrhea Stated complaint: vomiting blood Time Seen by Provider: 06/25/24 02:22 Source: patient Mode of arrival: ambulatory - History of Present Illness Initial comments: 43-year-old female presenting with chief complaint of hematemesis. Patient has been seen here multiple times in the past for hematemesis. She has history of ulcers reports that earlier she was taking "a bunch of Excedrin" for a migraine. Patient has history of migraines. Blood is bright red. Only occurs with vomiting. There is no blood pouring from her mouth. No abdominal pain. No hematochezia or melena. No fevers or chills. No injury or trauma. No blood thinners. No chest pain or difficulty breathing. - Related Data Home Medications Medication Instructions Recorded Confirmed DULoxetine HCL [Cymbalta] 60 mg PO BID 02/26/20 05/21/24 buPROPion XL [Wellbutrin XL] 150 mg PO DAILY 08/14/20 05/21/24 Cyclobenzaprine [Flexeril] 5 tab PO TID PRN 08/15/21 05/21/24 ARIPiprazole [Abilify] 10 mg PO DAILY 10/28/23 05/21/24 Albuterol Sulfate [Albuterol 2 puff INHALATION RT-Q4H PRN 10/28/23 05/21/24 Sulfate Hfa] Atomoxetine HCl [Strattera] 100 mg PO DAILY 10/28/23 05/21/24 Butalb/APAP/Caff 50-325-40Mg 1 - 2 tab PO Q6H PRN MDD 6 TAB/24HR 10/28/23 05/21/24 [Fioricet 50-325-40] Folic Acid 1 mg PO DAILY 10/28/23 05/21/24 Rimegepant Sulfate [Nurtec Odt] 1 tab PO DAILY PRN 10/28/23 05/21/24 Topiramate [Topiramate ER 150 mg PO DAILY 10/28/23 05/21/24 (Sprinkle)] busPIRone HCL 10 mg PO TID PRN 10/28/23 05/21/24 Dicyclomine [Bentyl] 10 mg PO DIRECTED PRN 05/21/24 05/21/24 Ipratropium-Albuterol Nebulize 3 ml INHALATION RT-QID PRN 05/21/24 05/21/24 [Duoneb 0.5 mg-3 mg/3 ml Soln] Metoprolol Succinate (ER) [Toprol 100 mg PO DAILY 05/21/24 05/21/24 Xl] Naproxen [EC-Naprosyn] 500 mg PO BID PRN 05/21/24 05/21/24 Previous Rx's Medication Instructions Recorded Pantoprazole Sodium [Protonix] 40 mg PO BID #30 tab 08/15/21 Ondansetron Odt [Zofran Odt] 4 mg PO Q8HR PRN #20 tab 05/21/24 Pantoprazole Sodium 40 mg PO DAILY #30 tab 05/21/24 Sucralfate [Carafate] 1 gm PO TID 14 Days #42 tab 05/21/24 Ondansetron Odt [Zofran Odt] 4 mg PO Q8HR PRN #20 tab 06/25/24 Pantoprazole [Protonix] 40 mg PO DAILY #14 tab 06/25/24 Sucralfate [Carafate] 1 gm PO BID #14 tablet 06/25/24 Allergies Allergy/AdvReac Type Severity Reaction Status Date / Time adhesive Allergy Rash/Hives Verified 05/30/24 04:19 latex Allergy Rash/Hives Verified 06/25/24 02:18 morphine Allergy Nausea & Verified 05/30/24 04:19 Vomiting prochlorperazine Allergy Nausea & Verified 05/30/24 04:19 [From Compazine] Vomiting ciprofloxacin [From Cipro] AdvReac Hallucinati Verified 05/30/24 04:19 ons citalopram [From Celexa] AdvReac Suicidal Verified 05/30/24 04:19 thoughts diazepam [From Valium] AdvReac Hallucinati Verified 05/30/24 04:19 ons/Anxiety fluoxetine [From Prozac] AdvReac Suicidal Verified 05/30/24 04:19 thoughts metoclopramide [From Reglan] AdvReac Hallucinati Verified 05/30/24 04:19 ons/Anxiety paroxetine [From Paxil] AdvReac Suicidal Verified 05/30/24 04:19 thoughts Penicillins AdvReac Nausea & Verified 05/30/24 04:19 Vomiting Review of Systems ROS Statement: Those systems with pertinent positive or pertinent negative responses have been documented in the HPI. ROS Other: All systems not noted in ROS Statement are negative. Past Medical History Past Medical History: Asthma, COPD, Fibromyalgia, GERD/Reflux, GI Bleed Additional Past Medical History / Comment(s): covid + pneumonia 10/30/2020 complicated by respiratory failure, intubation, mechanical ventilation, bilateral pneumothoraces, COPD, Other hx: Primary immunodeficiency, antral ulcers, GI bleed, anemia, IBS, migraines, back pain, TMJ, seasonal allergies History of Any Multi-Drug Resistant Organisms: None Reported Past Surgical History: Breast Surgery, Ear Surgery, Uterine Ablation Additional Past Surgical History / Comment(s): EGDs, colonoscopies, bilateral breast augmentation, septoplasty, L ear trauma/reattached. Past Anesthesia/Blood Transfusion Reactions: No Reported Reaction, Motion Sickness Additional Past Anesthesia/Blood Transfusion Reaction / Comment(s): Pt has received blood in past without reaction. Past Psychological History: ADD/ADHD, Anxiety, Bipolar, Depression, PTSD Smoking Status: Former smoker Past Alcohol Use History: Abuse, Daily, Heavy Past Drug Use History: Marijuana - Past Family History Father Additional Family Medical History / Comment(s): Father at age 51 from accidental drug overdose. Mother Family Medical History: Fibromyalgia Additional Family Medical History / Comment(s): Mother is alive at age 61 with history of primary immunodeficiency. Brother(s) Additional Family Medical History / Comment(s): Patient has one brother with history of alcohol abuse. Patient does not have any sisters. Patient has 2 children with no major medical problems. General Exam General appearance: alert, in no apparent distress Head exam: Present: atraumatic, normocephalic, normal inspection Eye exam: Present: normal appearance, EOMI Neck exam: Present: normal inspection. Absent: meningismus Respiratory exam: Present: normal lung sounds bilaterally. Absent: respiratory distress, wheezes, rales, rhonchi, stridor Cardiovascular Exam: Present: normal rhythm, tachycardia, normal heart sounds. Absent: systolic murmur, diastolic murmur, rubs, gallop, clicks GI/Abdominal exam: Present: soft, tenderness (Mild tenderness). Absent: distended, guarding, rebound, rigid Neurological exam: Present: alert, oriented X3 Psychiatric exam: Present: normal affect, normal mood Skin exam: Present: warm, dry Course Vital Signs 06/25/24 06/25/24 02:15 04:38 Temperature 98.6 F Pulse Rate 129 H 97 Respiratory 18 18 Rate Blood Pressure 131/74 116/96 O2 Sat by Pulse 96 100 Oximetry Medical Decision Making - Medical Decision Making Was pt. sent in by a medical professional or institution (, PA, FINANCIAL ANALYSIS CONSULTANT, urgent care, hospital, or longterm...) When possible be specific @ -No Did you speak to anyone other than the patient for history (EMS, parent, family, police, friend...)? What history was obtained from this source @ -No Did you review nursing and triage notes (agree or disagree)? Why? @ -I reviewed and agree with nursing and triage notes Were old charts reviewed (outside hosp., previous admission, EMS record, old EKG, old radiological studies, urgent care reports/EKG's, longterm records)? Report findings @ -Previous visits reviewed Differential Diagnosis (chest pain, altered mental status, abdominal pain women, abdominal pain men, vaginal bleeding, weakness, fever, dyspnea, syncope, headache, dizziness, GI bleed, back pain, seizure, CVA, palpatations, mental health, musculoskeletal)? @ -MDM Differential GI Bleed: Esophageal varices, aortoenteric fistula, Zo-Medrano, gastritis, peptic ulcer disease, diverticulosis, inflammatory bowel disease, hemorrhoids, fissure, col itis, malignancy, Meckels diverticulum this is not meant to be an all- inclusive list. EKG interpreted by me (3pts min.). @ -As above X-rays interpreted by me (1pt min.). @ -X-ray shows no evidence of acute abnormality CT interpreted by me (1pt min.). @ -None done U/S interpreted by me (1pt. min.). @ -None done What testing was considered but not performed or refused? (CT, X-rays, U/S, l abs)? Why? @ -None What meds were considered but not given or refused? Why? @ -None Did you discuss the management of the patient with other professionals (professionals i.e. , ALVINO, FINANCIAL ANALYSIS CONSULTANT, lab, RT, psych nurse, social worker aide, traveling passenger agent, teacher, recruitment officer, director of casework department)? Give summary @ -No Was smoking cessation discussed for >3mins.? @ -No Was critical care preformed (if so, how long)? @ -No Were there social determinants of health that impacted care today? How? (Homelessness, low income, unemployed, alcoholism, drug addiction, transportation, low edu. Level, literacy, decrease access to med. care, fpc, rehab)? @ -No Was there de-escalation of care discussed even if they declined (Discuss DNR or withdrawal of care, Hospice)? DNR status @ -No What co-morbidities impacted this encounter? (DM, HTN, Smoking, COPD, CAD, Cancer, CVA, ARF, Chemo, Hep., AIDS, mental health diagnosis, sleep apnea, morbid obesity)? @ -None Was patient admitted / discharged? Hospital course, mention meds given and route, prescriptions, significant lab abnormalities, going to OR and other pertinent info. @ -43-year-old female presenting with chief complaint of vomiting bright red blood. Patient has been seen on multiple occasions in the past for the same complaint. She has history of peptic ulcer disease. No abdominal pain. This started after taking "a bunch of Excedrin". History and physical examination are conducted. Hemoglobin 11.3 which is consistent with the patient's baseline. KUB shows no evidence of free air. Patient developed some pain later on, patient was treated with pain and nausea medication. On reassessment patient reports improvement in her symptoms. She has had no vomiting here. This is a chronic issue for the patient. Given that her labs and vitals are stable believe the patient can be safely discharged home. Provided with prescription for Protonix and Carafate. Follow-up with PCP. Report back to ER with any new or worsening symptoms. Discussed return parameters and answered all questions. Patient conveyed verbal understanding and agreed to the plan. I discussed this case in detail with my attending Dr. Douglas Undiagnosed new problem with uncertain prognosis? @ -No Drug Therapy requiring intensive monitoring for toxicity (Heparin, Nitro, Insu cielo, Cardizem)? @ -No Were any procedures done? @ -No Diagnosis/symptom? @ -Hematemesis Acute, or Chronic, or Acute on Chronic? @ -Acute Uncomplicated (without systemic symptoms) or Complicated (systemic symptoms)? @ -Uncomplicated Side effects of treatment? @ -No Exacerbation, Progression, or Severe Exacerbation? @ -No Poses a threat to life or bodily function? How? (Chest pain, USA, DE, pneumonia, PE, COPD, DKA, ARF, appy, cholecystitis, CVA, Diverticulitis, Homicidal, Suicidal, threat to staff... and all critical care pts) @ -Potential if there is continuous loss Diagnosis/symptom? @Peptic ulcer disease Acute, or Chronic, or Acute on Chronic? @Chronic Uncomplicated (without systemic symptoms) or Complicated (systemic symptoms)? @Complicated Side effects of treatment? @None Exacerbation, Progression, or Severe Exacerbation] @No - Lab Data Result diagrams: 06/25/24 02:54 06/25/24 02:54 Lab Results 06/25/24 06/25/24 06/25/24 Range/Units 02:54 02:54 02:54 WBC 8.0 (3.8-10.6) k/uL RBC 3.99 (3.80-5.40) m/uL Hgb 11.3 L (11.4-16.0) gm/dL Hct 35.7 (34.0-46.0) % MCV 89.6 (80.0-100.0) fL MCH 28.3 (25.0-35.0) pg MCHC 31.6 (31.0-37.0) g/dL RDW 16.1 H (11.5-15.5) % Plt Count 487 H (150-450) k/uL MPV 7.1 Neutrophils % 41 % Lymphocytes % 43 % Monocytes % 6 % Eosinophils % 6 % Basophils % 1 % Neutrophils # 3.3 (1.3-7.7) k/uL Lymphocytes # 3.5 (1.0-4.8) k/uL Monocytes # 0.5 (0-1.0) k/uL Eosinophils # 0.5 (0-0.7) k/uL Basophils # 0.1 (0-0.2) k/uL Hypochromasia Slight Anisocytosis Slight PT 10.5 (10.0-12.5) sec INR 1.0 (<1.2) APTT 21.2 L (22.0-30.0) sec Sodium 140 (137-145) mmol/L Potassium 3.6 (3.5-5.1) mmol/L Chloride 111 H (98-107) mmol/L Carbon Dioxide 16 L (22-30) mmol/L Anion Gap 13 mmol/L BUN 22 H (7-17) mg/dL Creatinine 0.92 (0.52-1.04) mg/dL Est GFR (CKD-EPI)AfAm 87 (>60 ml/min/1.73 sqM) Est GFR (CKD-EPI)NonAf 76 (>60 ml/min/1.73 sqM) Glucose 94 (74-99) mg/dL Plasma Lactic Acid Domo (0.7-2.0) mmol/L Calcium 9.8 (8.4-10.2) mg/dL Total Bilirubin 0.2 (0.2-1.3) mg/dL AST 24 (14-36) U/L ALT 22 (4-34) U/L Alkaline Phosphatase 91 (38-126) U/L Total Protein 7.5 (6.3-8.2) g/dL Albumin 4.6 (3.5-5.0) g/dL Lipase 66 (23-300) U/L 06/25/24 Range/Units 02:54 WBC (3.8-10.6) k/uL RBC (3.80-5.40) m/uL Hgb (11.4-16.0) gm/dL Hct (34.0-46.0) % MCV (80.0-100.0) fL MCH (25.0-35.0) pg MCHC (31.0-37.0) g/dL RDW (11.5-15.5) % Plt Count (150-450) k/uL MPV Neutrophils % % Lymphocytes % % Monocytes % % Eosinophils % % Basophils % % Neutrophils # (1.3-7.7) k/uL Lymphocytes # (1.0-4.8) k/uL Monocytes # (0-1.0) k/uL Eosinophils # (0-0.7) k/uL Basophils # (0-0.2) k/uL Hypochromasia Anisocytosis PT (10.0-12.5) sec INR (<1.2) APTT (22.0-30.0) sec Sodium (137-145) mmol/L Potassium (3.5-5.1) mmol/L Chloride (98-107) mmol/L Carbon Dioxide (22-30) mmol/L Anion Gap mmol/L BUN (7-17) mg/dL Creatinine (0.52-1.04) mg/dL Est GFR (CKD-EPI)AfAm (>60 ml/min/1.73 sqM) Est GFR (CKD-EPI)NonAf (>60 ml/min/1.73 sqM) Glucose (74-99) mg/dL Plasma Lactic Acid Domo 1.8 (0.7-2.0) mmol/L Calcium (8.4-10.2) mg/dL Total Bilirubin (0.2-1.3) mg/dL AST (14-36) U/L ALT (4-34) U/L Alkaline Phosphatase (38-126) U/L Total Protein (6.3-8.2) g/dL Albumin (3.5-5.0) g/dL Lipase (23-300) U/L Disposition Clinical Impression: History of peptic ulcer disease, Hematemesis Disposition: HOME SELF-CARE Condition: Fair Instructions (If sedation given, give patient instructions): Peptic Ulcer (ED), Diet for Stomach Ulcers and Gastritis (ED), Hematemesis (ED) Additional Instructions: Follow-up with your PCP. Report back to ER with any new or worsening symptoms. Prescriptions: Sucralfate [Carafate] 1 gm PO BID #14 tablet Pantoprazole [Protonix] 40 mg PO DAILY #14 tab Ondansetron Odt [Zofran Odt] 4 mg PO Q8HR PRN #20 tab PRN Reason: Nausea Is patient prescribed a controlled substance at d/c from ED?: No Referrals: Patricia Gonzalez MD [Primary Care Provider] - 1-2 days
--- NOTE | 2024-06-25 04:32 | XR ---
EXAM: XR Abdomen, 2 Views CLINICAL HISTORY: ITS.REASON XR Reason: abdominal pain TECHNIQUE: Frontal view of the abdomen/pelvis with upright view of the abdomen. 2 images. COMPARISON: No relevant prior studies available. FINDINGS: Intraperitoneal space: No free air. Gastrointestinal tract: Unremarkable. No dilation. Bones/joints: Unremarkable. No acute fracture. IMPRESSION: No evidence of acute abnormality.
[2024-06-25] MEDS: HYDROmorphone 1 MG/ML 1 ML SYRINGE IVP STA (04:36)
[2024-06-25 04:39] VITALS: BP 116/96; PULSE 97
== END 2024-06-25 04:44 | disposition home or self-care (01) ==
LOC: EC 02:13
DX: K92.0 Hematemesis (principal); Z87.11 Personal history of peptic ulcer disease; Z87.891 Personal history of nicotine dependence; Z88.0 Allergy status to penicillin; Z88.1 Allergy status to other antibiotic agents; Z88.8 Allergy status to other drugs, medicaments and biological substances; Z91.040 Latex allergy status; Z86.16 Personal history of COVID-19
CPT/HCPCS: 36415; 80053; 83605; 83690; 85025; 85610; 85730; 74018; 99284; 96374; 96375 ×2; 96361; J2405; J1171; J2470

== ENCOUNTER 2024-06-26 09:18 | Emergency (ER) | payer MEDICAID ==
[2024-06-26 09:40] VITALS: TEMP 98.2
[2024-06-26] MEDS: SODIUM CHLORIDE 0.9% 1,000 ML IV STA (10:39)
[2024-06-26] MEDS: diphenhydrAMINE 50 MG/ML 1 ML VIAL IVP STA (10:43)
[2024-06-26] MEDS: KETOROLAC 15 MG/ML 1 ML VIAL IVP STA (10:44)
[2024-06-26] MEDS: droPERidol 5 MG/2 ML VIAL IVP ONE (10:45)
[2024-06-26] MEDS: ACETAMINOPHEN IV (For NPO) 1,000 MG in EMPTY BAG 1 BAG IVPB STA (11:31)
--- NOTE | 2024-06-26 12:11 | ED ---
Headache HPI - General Chief Complaint: Headache Stated Complaint: migraine/vomitting Time Seen by Provider: 06/26/24 09:55 Source: patient, RN notes reviewed Mode of arrival: ambulatory Limitations: no limitations - History of Present Illness Initial Comments: [id number] presents to the ED with chief complaint of headache. She states that she was seen yesterday in the ED for hematemesis related to Excedrin use for her headaches. She reports a history of frequent headaches that she has been seen in the emergency department for. Her headache began this morning and she took Excedrin and benadryl again which did not attenuate headache. Associated symptoms only include slight nausea. She denies visual disturbances, photophobia/phonophobia, and other neurological changes. - Related Data Home Medications Medication Instructions Recorded Confirmed DULoxetine HCL [Cymbalta] 60 mg PO BID 02/26/20 05/21/24 buPROPion XL [Wellbutrin XL] 150 mg PO DAILY 08/14/20 05/21/24 Cyclobenzaprine [Flexeril] 5 tab PO TID PRN 08/15/21 05/21/24 ARIPiprazole [Abilify] 10 mg PO DAILY 10/28/23 05/21/24 Albuterol Sulfate [Albuterol 2 puff INHALATION RT-Q4H PRN 10/28/23 05/21/24 Sulfate Hfa] Atomoxetine HCl [Strattera] 100 mg PO DAILY 10/28/23 05/21/24 Butalb/APAP/Caff 50-325-40Mg 1 - 2 tab PO Q6H PRN MDD 6 TAB/24HR 10/28/23 05/21/24 [Fioricet 50-325-40] Folic Acid 1 mg PO DAILY 10/28/23 05/21/24 Rimegepant Sulfate [Nurtec Odt] 1 tab PO DAILY PRN 10/28/23 05/21/24 Topiramate [Topiramate ER 150 mg PO DAILY 10/28/23 05/21/24 (Sprinkle)] busPIRone HCL 10 mg PO TID PRN 10/28/23 05/21/24 Dicyclomine [Bentyl] 10 mg PO DIRECTED PRN 05/21/24 05/21/24 Ipratropium-Albuterol Nebulize 3 ml INHALATION RT-QID PRN 05/21/24 05/21/24 [Duoneb 0.5 mg-3 mg/3 ml Soln] Metoprolol Succinate (ER) [Toprol 100 mg PO DAILY 05/21/24 05/21/24 Xl] Naproxen [EC-Naprosyn] 500 mg PO BID PRN 05/21/24 05/21/24 Previous Rx's Medication Instructions Recorded Pantoprazole Sodium [Protonix] 40 mg PO BID #30 tab 08/15/21 Ondansetron Odt [Zofran Odt] 4 mg PO Q8HR PRN #20 tab 05/21/24 Pantoprazole Sodium 40 mg PO DAILY #30 tab 05/21/24 Sucralfate [Carafate] 1 gm PO TID 14 Days #42 tab 05/21/24 Ondansetron Odt [Zofran Odt] 4 mg PO Q8HR PRN #20 tab 06/25/24 Pantoprazole [Protonix] 40 mg PO DAILY #14 tab 06/25/24 Sucralfate [Carafate] 1 gm PO BID #14 tablet 06/25/24 Allergies Allergy/AdvReac Type Severity Reaction Status Date / Time adhesive Allergy Rash/Hives Verified 06/26/24 09:40 latex Allergy Rash/Hives Verified 06/26/24 09:40 morphine Allergy Nausea & Verified 06/26/24 09:40 Vomiting prochlorperazine Allergy Nausea & Verified 06/26/24 09:40 [From Compazine] Vomiting ciprofloxacin [From Cipro] AdvReac Hallucinati Verified 06/26/24 09:40 ons citalopram [From Celexa] AdvReac Suicidal Verified 06/26/24 09:40 thoughts diazepam [From Valium] AdvReac Hallucinati Verified 06/26/24 09:40 ons/Anxiety fluoxetine [From Prozac] AdvReac Suicidal Verified 06/26/24 09:40 thoughts metoclopramide [From Reglan] AdvReac Hallucinati Verified 06/26/24 09:40 ons/Anxiety paroxetine [From Paxil] AdvReac Suicidal Verified 06/26/24 09:40 thoughts Penicillins AdvReac Nausea & Verified 06/26/24 09:40 Vomiting Review of Systems ROS Statement: Those systems with pertinent positive or pertinent negative responses have been documented in the HPI. ROS Other: All systems not noted in ROS Statement are negative. Past Medical History Past Medical History: Asthma, COPD, Fibromyalgia, GERD/Reflux, GI Bleed Additional Past Medical History / Comment(s): covid + pneumonia 10/30/2020 complicated by respiratory failure, intubation, mechanical ventilation, bilateral pneumothoraces, COPD, Other hx: Primary immunodeficiency, antral ulcers, GI bleed, anemia, IBS, migraines, back pain, TMJ, seasonal allergies History of Any Multi-Drug Resistant Organisms: None Reported Past Surgical History: Breast Surgery, Ear Surgery, Uterine Ablation Additional Past Surgical History / Comment(s): EGDs, colonoscopies, bilateral breast augmentation, septoplasty, L ear trauma/reattached. Past Anesthesia/Blood Transfusion Reactions: No Reported Reaction, Motion Sickness Additional Past Anesthesia/Blood Transfusion Reaction / Comment(s): Pt has received blood in past without reaction. Past Psychological History: ADD/ADHD, Anxiety, Bipolar, Depression, PTSD Smoking Status: Former smoker Past Alcohol Use History: Abuse, Daily, Heavy Past Drug Use History: Marijuana - Past Family History Father Additional Family Medical History / Comment(s): Father at age 51 from accidental drug overdose. Mother Family Medical History: Fibromyalgia Additional Family Medical History / Comment(s): Mother is alive at age 61 with history of primary immunodeficiency. Brother(s) Additional Family Medical History / Comment(s): Patient has one brother with hi story of alcohol abuse. Patient does not have any sisters. Patient has 2 children with no major medical problems. General Exam Limitations: no limitations General appearance: alert, in no apparent distress Head exam: Present: atraumatic, normocephalic, normal inspection Eye exam: Present: normal appearance, PERRL, EOMI. Absent: scleral icterus, conjunctival injection, periorbital swelling ENT exam: Present: normal exam, mucous membranes moist Neck exam: Present: normal inspection. Absent: tenderness, meningismus, lymphadenopathy Respiratory exam: Present: normal lung sounds bilaterally. Absent: respiratory distress, wheezes, rales, rhonchi, stridor Cardiovascular Exam: Present: regular rate, normal rhythm, normal heart sounds. Absent: systolic murmur, diastolic murmur, rubs, gallop, clicks GI/Abdominal exam: Present: soft, normal bowel sounds. Absent: distended, tenderness, guarding, rebound, rigid Extremities exam: Present: normal inspection, full ROM, normal capillary refill. Absent: tenderness, pedal edema, joint swelling, calf tenderness Back exam: Present: normal inspection Neurological exam: Present: alert, oriented X3, CN II-XII intact Psychiatric exam: Present: normal affect, normal mood Skin exam: Present: warm, dry, intact, normal color. Absent: rash Course Vital Signs 06/26/24 06/26/24 09:38 12:56 Temperature 98.2 F Pulse Rate 107 H 80 Respiratory 20 15 Rate Blood Pressure 124/76 101/64 O2 Sat by Pulse 97 100 Oximetry Medical Decision Making - Medical Decision Making Was pt. sent in by a medical professional or institution (, PA, BUSINESS ANALYST, urgent care, hospital, or detention...) When possible be specific @ -No Did you speak to anyone other than the patient for history (EMS, parent, family, police, friend...)? What history was obtained from this source @ -No Did you review nursing and triage notes (agree or disagree)? Why? @ -I reviewed and agree with nursing and triage notes Were old charts reviewed (outside hosp., previous admission, EMS record, old EKG, old radiological studies, urgent care reports/EKG's, detention records)? Report findings @ -No old charts were reviewed Differential Diagnosis (chest pain, altered mental status, abdominal pain women, abdominal pain men, vaginal bleeding, weakness, fever, dyspnea, syncope, headache, dizziness, GI bleed, back pain, seizure, CVA, palpatations, mental health, musculoskeletal)? @ -Differential Headache: Migraine, tension, cluster, carbon monoxide, central venous thrombosis, pension karma temporal arteritis, acute closure glaucoma, intercranial hemorrhage, mastoiditis, sinusitis, head injury, this is not meant to be an all-inclusive list. EKG interpreted by me (3pts min.). @ -None X-rays interpreted by me (1pt min.). @ -None done CT interpreted by me (1pt min.). @ -None done U/S interpreted by me (1pt. min.). @ -None done What testing was considered but not performed or refused? (CT, X-rays, U/S, labs)? Why? @ -None What meds were considered but not given or refused? Why? @ -None Did you discuss the management of the patient with other professionals (professionals i.e. , PA, BUSINESS ANALYST, lab, RT, psych nurse, social services technician, office bookkeeper, teacher, hazard mitigation officer, case management rn)? Give summary @ -No Was smoking cessation discussed for >3mins.? @ -No Was critical care preformed (if so, how long)? @ -No Were there social determinants of health that impacted care today? How? (Homelessness, low income, unemployed, alcoholism, drug addiction, transportation, low edu. Level, literacy, decrease access to med. care, halfway, rehab)? @ -No Was there de-escalation of care discussed even if they declined (Discuss DNR or withdrawal of care, Hospice)? DNR status @ -No What co-morbidities impacted this encounter? (DM, HTN, Smoking, COPD, CAD, Cancer, CVA, ARF, Chemo, Hep., AIDS, mental health diagnosis, sleep apnea, morbid obesity)? @ -[Chronic pain Was patient admitted / discharged? Hospital course, mention meds given and route, prescriptions, significant lab abnormalities, going to OR and other pertinent info. @ -Discharge patient presented for reported migraine similar headache as usual. Patient has no neurological deficits. Patient is improved this time will discharge in stable condition. Undiagnosed new problem with uncertain prognosis? @ -No Drug Therapy requiring intensive monitoring for toxicity (Heparin, Nitro, Insulin, Cardizem)? @ -No Were any procedures done? @ -No Diagnosis/symptom? @ -migraine Acute, or Chronic, or Acute on Chronic? @ -Acute Uncomplicated (without systemic symptoms) or Complicated (systemic symptoms)? @ -Uncomplicated Side effects of treatment? @ -No Exacerbation, Progression, or Severe Exacerbation? @ -No Poses a threat to life or bodily function? How? (Chest pain, [place], CA, pneumonia, PE, COPD, DKA, ARF, appy, cholecystitis, CVA, Diverticulitis, Homicidal, Suicidal, threat to staff... and all critical care pts) @ -No Disposition Clinical Impression: Migraine headache Disposition: HOME SELF-CARE Condition: Stable Instructions (If sedation given, give patient instructions): Acute Headache (ED) Additional Instructions: Please return to the Emergency Department if symptoms worsen or any other concerns. Is patient prescribed a controlled substance at d/c from ED?: No Referrals: Patricia Gonzalez MD [Primary Care Provider] - 1-2 days Time of Disposition: 12:26
[2024-06-26 12:57] VITALS: BP 101/64; PULSE 80; RESP 15
== END 2024-06-26 13:15 | disposition home or self-care (01) ==
LOC: EC 09:18
DX: G43.909 Migraine, unspecified, not intractable, without status migrainosus (principal); Z88.0 Allergy status to penicillin; Z88.1 Allergy status to other antibiotic agents; Z88.8 Allergy status to other drugs, medicaments and biological substances; Z91.040 Latex allergy status; Z87.891 Personal history of nicotine dependence; Z86.16 Personal history of COVID-19
CPT/HCPCS: 96374; 96375 ×3; 96361; 99283; J1200; J0131; J1885; J1790

== ENCOUNTER 2024-08-04 10:49 | Day surgery (SDC) | payer MEDICAID, OTHER ==
[~2024-08-04 10:49] MED LIST: LACTATED RINGERS 1,000 ML IV SCH; Pre Op ABX Message 1 EACH MISC MISCELLANE ONE
[2024-08-04] MEDS: IV FLUID CONTINUATION 1,000 ML IV ONE (11:25)
[2024-08-04 11:44] VITALS: RESP 16
[2024-08-04] MEDS: ONDANSETRON 4 MG/2 ML VIAL IVP ONE (11:51)
[2024-08-04] MEDS: DEXAMETHASONE SOD PHOSPHATE 4 MG/ML 1 ML VIAL IV ONE (11:51)
[2024-08-04] MEDS: SCOPOLAMINE 1 MG/72 HR PATCH TRANSDERM ONE (11:52)
[2024-08-04] MEDS ORDERED: ROPIVACAINE 5 MG/ML 30 ML VIAL ONE (13:04)
[2024-08-04] MEDS ORDERED: MIDAZOLAM 2 MG/2 ML VIAL ONE (13:04)
[2024-08-04] MEDS ORDERED: SUCCINYLCHOLINE CHLORIDE 200 MG/10 ML VIAL IV ONE (13:04)
[2024-08-04] MEDS ORDERED: fentaNYL (PF) 50 MCG/ML 2 ML AMP ONE (13:04)
[2024-08-04] MEDS ORDERED: PROPOFOL 10 MG/ML 20 ML VIAL IV ONE (13:04)
[2024-08-04] MEDS ORDERED: LIDOCAINE 1% INJ 10MG/ML (20 ML MDV) ONE (13:04)
[2024-08-04] MEDS ORDERED: SODIUM CHLORIDE 0.9% (PF) 10 ML VIAL ONE (13:04)
[2024-08-04] MEDS: SODIUM CHLORIDE 0.9% 50 ML with ceFAZolin 2,000 MG IV ONE (13:09)
[2024-08-04] MEDS: LACTATED RINGERS 1,000 ML IV ONE (15:36)
[2024-08-04] MEDS: BUPIVACAINE (PF) 0.25% 30 ML VIAL SQ ONE (15:56)
[2024-08-04 16:19] VITALS: TEMP 97.7
[2024-08-04] MEDS: fentaNYL (PF) 50 MCG/ML 2 ML AMP IV PRN (16:30)
[2024-08-04 17:59] VITALS: BP 102/73; PULSE 88
--- NOTE | 2024-08-04 19:11 | P.OP ---
Date of Procedure: 08/04/24 Preoperative Diagnosis: Left distal radius malunion with left carpal tunnel syndrome Postoperative Diagnosis: Same Procedure(s) Performed: Left distal radius corrective osteotomy with open carpal tunnel release Implants: [employer] standard volar locking plate 4-hole Anesthesia: DMIITRI Surgeon: Keegan Gonzales Estimated Blood Loss (ml): 30 Condition: stable Disposition: PACU Indications for Procedure: Left distal radius significant dorsally angulated malunion causing symptomatic ulnar-sided wrist pain as well as limitations to motion of the wrist and has not responded to conservative measures, additionally she has developed left sided carpal tunnel syndrome. Given the extensive dissection and correction that will need to be performed during the surgery even though her symptoms are relatively mild I do believe that this surgery to correct the distal radius malunion would exacerbate her carpal tunnel syndromes due to the resultant swelling and we decided that concomitant carpal tunnel release should be performed Operative Findings: Dorsally angulated and radially deviated malunited distal radius fracture with ulnar positive variance as well as moderate compression of the median nerve at the carpal tunnel Description of Procedure: Patient was brought back to the operating room on a stretcher he was placed in the supine position and the right arm was placed on an armboard general anesthesia was administered per the anesthesia team, a well-padded tourniquet was applied to the right upper arm this was inflated just prior to incision and was deflated once the dressings were applied. The left upper extremity was pre pped and draped in the normal sterile. A standard FCR approach as well as an open carpal tunnel approach at the radial border of the ring finger were marked out. Attention was first turned to the distal radius malunion dissection was carried down to the bone surface taking care to protect the radial artery the pronator was released off of the distal radius the brachial radialis was identified and a tenotomy was performed. Using image guidance the joint line was identified with a hypodermic needle, next an appropriately sized volar plate was placed in the correct coronal alignment to match the patient's yurok joint line was provisionally held with K wires in order to determine the distal screw cluster trajectory and ensure that there would not be intra-articular penetration. Next the osteotomy site was marked out at the level of her previous fracture several holes with a K wire were then drilled in order to create a course to then complete the osteotomy with an osteotome the bone had been appropriately released the dorsal soft tissues were then released in order to regain the appropriate mobility of the distal aspect of the radius. The plate was then reapplied to the distal aspect of the radius and locking screws were applied to the distal screw cluster once appropriate fixation was achieved the plate was then applied to the bone and secured with nonlocking screws in the proximal segment next a lamina mallet cutter was utilized at the osteotomy site in order to regain fracture length and radial inclination the distal radius. Adequate reduction was achieved bone graft utilizing allograft cancellous bone chips as well as demineralized bone matrix were mixed and placed into the bone void until there was good fill noted on imaging. All images showed appropriate screw placement with significantly improved angulation of her distal radius and tenriism of radial height and inclination. Noted to have significant improvement to wrist flexion to nearly 70 degrees well as extension to 60 degrees. He had full pronation and supination of the wrist and there was no instability of the DRUJ noted. Attention was then turned to the carpal tunnel a standard open carpal tunnel release was performed with sharp dissection carried down through the palmar fascia and then to the transverse carpal ligament the proximal and distal aspects of the release were performed using tenotomy scissors complete release was then confirmed under direct visualization as well as palpation. The wounds were then irrigated with normal saline and the wounds were closed with Prolene sutures. Dressings and a volar slab splint were then applied. The patient tolerated the procedure well and she was taken to the recovery area in stable condition. Plan - Discharge Summary Discharge Rx Participant: No New Discharge Prescriptions: No Action DULoxetine HCL [Cymbalta] 60 mg PO BID buPROPion XL [Wellbutrin XL] 150 mg PO DAILY Cyclobenzaprine [Flexeril] 5 tab PO TID PRN PRN Reason: Pain Albuterol Sulfate [Albuterol Sulfate Hfa] 2 puff INHALATION RT-Q4H PRN PRN Reason: Shortness Of Breath busPIRone HCL 10 mg PO TID PRN PRN Reason: Anxiety Butalb/APAP/Caff 50-325-40Mg [Fioricet 50-325-40] 1 - 2 tab PO Q6H PRN MDD 6 TAB/24HR PRN Reason: Migraine Headache Topiramate [Topiramate ER (Sprinkle)] 150 mg PO DAILY ARIPiprazole [Abilify] 10 mg PO DAILY Dicyclomine [Bentyl] 10 mg PO DIRECTED PRN PRN Reason: Pain Ondansetron Odt [Zofran Odt] 4 mg PO Q8HR PRN #20 tab PRN Reason: Nausea Pantoprazole [Protonix] 40 mg PO BID Rimegepant Sulfate [Nurtec Odt] 1 tab PO DAILY PRN PRN Reason: Migraine Headache Folic Acid 1 mg PO DAILY Atomoxetine HCl [Strattera] 100 mg PO DAILY Ipratropium-Albuterol Nebulize [Duoneb 0.5 mg-3 mg/3 ml Soln] 3 ml INHALATION RT-QID PRN PRN Reason: Shortness Of Breath Metoprolol Succinate (ER) [Toprol Xl] 100 mg PO DAILY Naproxen [EC-Naprosyn] 500 mg PO BID PRN PRN Reason: Pain Ondansetron Odt [Zofran Odt] 8 mg PO Q8HR PRN PRN Reason: Nausea And Vomiting Sucralfate [Carafate] 1 gm PO QID Amitriptyline HCl [Elavil] 25 mg PO HS Doxycycline [Vibramycin] 100 mg PO BID oxyCODONE-APAP 5-325MG [Percocet 5-325 mg] 1 tab PO BID PRN PRN Reason: Pain Discharge Medication List DULoxetine HCL [Cymbalta] 60 mg PO BID 02/26/20 [History] buPROPion XL [Wellbutrin XL] 150 mg PO DAILY 08/14/20 [History] Cyclobenzaprine [Flexeril] 5 tab PO TID PRN 08/15/21 [History] ARIPiprazole [Abilify] 10 mg PO DAILY 10/28/23 [History] Albuterol Sulfate [Albuterol Sulfate Hfa] 2 puff INHALATION RT-Q4H PRN 10/28/23 [History] Atomoxetine HCl [Strattera] 100 mg PO DAILY 10/28/23 [History] Butalb/APAP/Caff 50-325-40Mg [Fioricet 50-325-40] 1 - 2 tab PO Q6H PRN MDD 6 TAB/24HR 10/28/23 [History] Folic Acid 1 mg PO DAILY 10/28/23 [History] Rimegepant Sulfate [Nurtec Odt] 1 tab PO DAILY PRN 10/28/23 [History] Topiramate [Topiramate ER (Sprinkle)] 150 mg PO DAILY 10/28/23 [History] busPIRone HCL 10 mg PO TID PRN 10/28/23 [History] Dicyclomine [Bentyl] 10 mg PO DIRECTED PRN 05/21/24 [History] Ipratropium-Albuterol Nebulize [Duoneb 0.5 mg-3 mg/3 ml Soln] 3 ml INHALATION RT-QID PRN 05/21/24 [History] Metoprolol Succinate (ER) [Toprol Xl] 100 mg PO DAILY 05/21/24 [History] Naproxen [EC-Naprosyn] 500 mg PO BID PRN 05/21/24 [History] Ondansetron Odt [Zofran Odt] 4 mg PO Q8HR PRN #20 tab 06/25/24 [Rx] Amitriptyline HCl [Elavil] 25 mg PO HS 07/31/24 [History] Doxycycline [Vibramycin] 100 mg PO BID 07/31/24 [History] Ondansetron Odt [Zofran Odt] 8 mg PO Q8HR PRN 07/31/24 [History] Pantoprazole [Protonix] 40 mg PO BID 07/31/24 [History] Sucralfate [Carafate] 1 gm PO QID 07/31/24 [History] oxyCODONE-APAP 5-325MG [Percocet 5-325 mg] 1 tab PO BID PRN 07/31/24 [History] Follow up Appointment(s)/Referral(s): Keegan Gonzales MD [STAFF PHYSICIAN] - 2 Weeks Patient Instructions/Handouts: *Surgery [facility] - (Anesthesia) Discharge Instructions Outpatient Surgery Activity/Diet/Wound Care/Special Instructions: Non weight bearing to left hand keep dressings in place until your follow up visit avoid lifting objects with your left hand You may begin to move your fingers on once pain is to a manageable level ICE and elevation of the hand/wrist to the level of the heart as often as possible to decrease pain and swelling Ice for 20 min at a time as often as possible throughout the day Numbing medication was injected during your procedure, this will wear off by tomorrow A prescription pain medication has been provided for you, please follow prescription instructions Your pain medication is designed to provided you with reduction in your pain level, the medication will not eliminate ALL of your pain, the goal is to have you at a manageable pain level such that you can sleep and perform necessary daily functions Additionally you may take tylenol for relief of more minor pain A small amount of drainage or blood on your dressings is normal Please contact our office If you experience any new onset of numbness or tingling after your numbing medications wears off, your pain is uncontrolled with your current medications, you notice any pale or bluish discoloration of your fingers, large amounts of drainage or bleeding on your bandages. Discharge Disposition: HOME SELF-CARE
--- NOTE | 2024-08-05 08:05 | P.ANPRN ---
Procedure Note - Anesthesia - Nerve Block Performed Left Axillary Single Time Out Performed: Yes (1718) Date of Procedure: 08/05/24 Procedure Start Time: Procedure Stop Time: Location of Patient: Phase I Indication: Acute Post-Operative Pain, Requested by Surgeon Specifically requested for management of pain by DrKatie: Keegan Gonzales Sedation Type: Sedate with meaningful contact maintained Preparation: Sterile Prep Position: Supine Catheter: None Needle Types: Pajunk Needle Gauge: 21 Ultrasound used to visualize needle placement: Yes Ultrasound used to observe medication spread: Yes Injectate: 0.5% Ropivacaine (see comment for volume) (30cc +20cc nacl pf. 12.5 mL aliquots x 4 used to each of the nerves radial musculocutaneous ulnar and median) Narrative: Performed in PACU after inability to control pain relief. Patient was consented in preop for nerve block. Confirmed okay to block patient per Christian Blood Aspirated: No Pain Paresthesia on Injection Noted: No Resistance on Injection: Normal Image Stored and Saved: Yes Events: Uneventful and Well Tolerated
== END 2024-08-04 18:19 | disposition home or self-care (01) ==
LOC: OR 10:49
PROVIDERS: ATTEND Orthopaedic Surgery
DX: G56.02 Carpal tunnel syndrome, left upper limb (principal); J44.89 Other specified chronic obstructive pulmonary disease; G47.33 Obstructive sleep apnea (adult) (pediatric); G43.909 Migraine, unspecified, not intractable, without status migrainosus; M79.7 Fibromyalgia; F31.9 Bipolar disorder, unspecified; F41.9 Anxiety disorder, unspecified; K58.9 Irritable bowel syndrome, unspecified; K21.9 Gastro-esophageal reflux disease without esophagitis; F10.99 Alcohol use, unspecified with unspecified alcohol-induced disorder; L23.1 Allergic contact dermatitis due to adhesives; Z87.891 Personal history of nicotine dependence; Z88.0 Allergy status to penicillin; Z91.040 Latex allergy status; Z88.5 Allergy status to narcotic agent; Z79.2 Long term (current) use of antibiotics; Z79.899 Other long term (current) drug therapy
CPT/HCPCS: 73100; 64721; J1100; J2405; J0690; J3010; J0665; 64417; 81025

== ENCOUNTER 2024-08-04 23:32 | Emergency (ER) | payer OTHER ==
--- NOTE | 2024-08-05 00:37 | ED ---
General Adult HPI - General Chief complaint: Recheck/Abnormal Lab/Rx Stated complaint: Post op arm swelling Time Seen by Provider: 08/04/24 23:40 Source: patient Mode of arrival: ambulatory Limitations: no limitations - History of Present Illness Initial comments: 43-year-old female presenting with chief complaint of left arm swelling. Patient had surgery earlier today with Dr. Gonzales, correction of left distal radius malunion and carpal tunnel release. After dinner she noticed some swelling to her fingers, she is concerned for DVT and would like an ultrasound. She is having no chest pain, difficulty breathing, palpitations, dizziness. Her pain is well-controlled at this time. - Related Data Home Medications Medication Instructions Recorded Confirmed DULoxetine HCL [Cymbalta] 60 mg PO BID 02/26/20 08/04/24 buPROPion XL [Wellbutrin XL] 150 mg PO DAILY 08/14/20 08/04/24 Cyclobenzaprine [Flexeril] 5 tab PO TID PRN 08/15/21 08/04/24 ARIPiprazole [Abilify] 10 mg PO DAILY 10/28/23 08/04/24 Albuterol Sulfate [Albuterol 2 puff INHALATION RT-Q4H PRN 10/28/23 08/04/24 Sulfate Hfa] Atomoxetine HCl [Strattera] 100 mg PO DAILY 10/28/23 08/04/24 Butalb/APAP/Caff 50-325-40Mg 1 - 2 tab PO Q6H PRN MDD 6 TAB/24HR 10/28/23 08/04/24 [Fioricet 50-325-40] Folic Acid 1 mg PO DAILY 10/28/23 08/04/24 Rimegepant Sulfate [Nurtec Odt] 1 tab PO DAILY PRN 10/28/23 08/04/24 Topiramate [Topiramate ER 150 mg PO DAILY 10/28/23 08/04/24 (Sprinkle)] busPIRone HCL 10 mg PO TID PRN 10/28/23 08/04/24 Dicyclomine [Bentyl] 10 mg PO DIRECTED PRN 05/21/24 08/04/24 Ipratropium-Albuterol Nebulize 3 ml INHALATION RT-QID PRN 05/21/24 08/04/24 [Duoneb 0.5 mg-3 mg/3 ml Soln] Metoprolol Succinate (ER) [Toprol 100 mg PO DAILY 05/21/24 08/04/24 Xl] Naproxen [EC-Naprosyn] 500 mg PO BID PRN 05/21/24 08/04/24 Amitriptyline HCl [Elavil] 25 mg PO HS 07/31/24 08/04/24 Doxycycline [Vibramycin] 100 mg PO BID 07/31/24 08/04/24 Ondansetron Odt [Zofran Odt] 8 mg PO Q8HR PRN 07/31/24 08/04/24 Pantoprazole [Protonix] 40 mg PO BID 07/31/24 08/04/24 Sucralfate [Carafate] 1 gm PO QID 07/31/24 08/04/24 oxyCODONE-APAP 5-325MG [Percocet 1 tab PO BID PRN 07/31/24 08/04/24 5-325 mg] Previous Rx's Medication Instructions Recorded Ondansetron Odt [Zofran Odt] 4 mg PO Q8HR PRN #20 tab 06/25/24 Allergies Allergy/AdvReac Type Severity Reaction Status Date / Time adhesive Allergy Rash/Hives Verified 08/04/24 23:39 latex Allergy Rash/Hives Verified 08/04/24 23:39 morphine Allergy Nausea & Verified 08/04/24 23:39 Vomiting prochlorperazine Allergy Nausea & Verified 08/04/24 23:39 [From Compazine] Vomiting ciprofloxacin [From Cipro] AdvReac Hallucinati Verified 08/04/24 23:39 ons citalopram [From Celexa] AdvReac Suicidal Verified 08/04/24 23:39 thoughts diazepam [From Valium] AdvReac Hallucinati Verified 08/04/24 23:39 ons/Anxiety fluoxetine [From Prozac] AdvReac Suicidal Verified 08/04/24 23:39 thoughts metoclopramide [From Reglan] AdvReac Hallucinati Verified 08/04/24 23:39 ons/Anxiety paroxetine [From Paxil] AdvReac Suicidal Verified 08/04/24 23:39 thoughts Penicillins AdvReac Nausea & Verified 08/04/24 23:39 Vomiting Review of Systems ROS Statement: Those systems with pertinent positive or pertinent negative responses have been documented in the HPI. ROS Other: All systems not noted in ROS Statement are negative. Past Medical History Past Medical History: Asthma, COPD, Fibromyalgia, GERD/Reflux, GI Bleed Additional Past Medical History / Comment(s): covid + pneumonia 10/30/2020 complicated by respiratory failure, intubation, mechanical ventilation, bilateral pneumothoraces, Other hx: Primary immunodeficiency, antral ulcers, GI bleed, anemia, IBS, migraines, back pain, TMJ, seasonal allergies, takes metoprolol for heart rate, tends to run low BP, current ulcer has peptic ulcer disease, back pain, taking A/B for resolving UTI History of Any Multi-Drug Resistant Organisms: None Reported Past Surgical History: Breast Surgery, Ear Surgery, Uterine Ablation Additional Past Surgical History / Comment(s): EGDs, colonoscopies, bilateral breast augmentation, septoplasty, L ear trauma/reattached. Past Anesthesia/Blood Transfusion Reactions: No Reported Reaction, Motion Sickness Additional Past Anesthesia/Blood Transfusion Reaction / Comment(s): Pt has received blood in past without reaction. Past Psychological History: ADD/ADHD, Anxiety, Bipolar, Depression, PTSD Smoking Status: Former smoker Past Alcohol Use History: None Reported Past Drug Use History: None Reported - Past Family History Father Additional Family Medical History / Comment(s): Father at age 51 from accidental drug overdose. Mother Family Medical History: Fibromyalgia Additional Family Medical History / Comment(s): Mother is alive at age 61 with history of primary immunodeficiency. Brother(s) Additional Family Medical History / Comment(s): Patient has one brother with history of alcohol abuse. Patient does not have any sisters. Patient has 2 children with no major medical problems. General Exam Limitations: no limitations General appearance: alert, in no apparent distress Head exam: Present: atraumatic, normocephalic, normal inspection Eye exam: Present: normal appearance, EOMI Neck exam: Present: normal inspection. Absent: meningismus Respiratory exam: Absent: respiratory distress Cardiovascular Exam: Present: regular rate Left Hand Wrist exam: Present: swelling. Absent: full ROM, tenderness Vascular: Absent: vascular compromise Neurological exam: Present: alert, oriented X3 Psychiatric exam: Present: normal affect, normal mood Skin exam: Present: warm, dry Course Vital Signs 08/04/24 08/05/24 23:33 01:23 Temperature 98.5 F 98.7 F Pulse Rate 85 67 Respiratory 16 17 Rate Blood Pressure 101/68 93/47 O2 Sat by Pulse 100 100 Oximetry Procedures - Orthopedic Splinting/Casting Injury #1 Side: left Upper Extremity Injury Location: wrist Upper Extremity Immobilizer: volar splint Medical Decision Making - Medical Decision Making Was pt. sent in by a medical professional or institution (, PA, PHARMACEUTICAL REPRESENTATIVE, urgent care, hospital, or [facility]...) When possible be specific @ -No Did you speak to anyone other than the patient for history (EMS, parent, family, police, friend...)? What history was obtained from this source @ -No Did you review nursing and triage notes (agree or disagree)? Why? @ -I reviewed and agree with nursing and triage notes Were old charts reviewed (outside hosp., previous admission, EMS record, old EKG, old radiological studies, urgent care reports/EKG's, [facility] records)? Report findings @ -No old charts were reviewed Differential Diagnosis (chest pain, altered mental status, abdominal pain women, abdominal pain men, vaginal bleeding, weakness, fever, dyspnea, syncope, headache, dizziness, GI bleed, back pain, seizure, CVA, palpatations, mental health, musculoskeletal)? @ -Differential Musculoskeletal Muscular strain, contusion, ligament sprain, fracture, arthritis, septic arthritis, bursitis, cellulitis, muscle spasm, nerve compression, DVT, arterial occlusion, herpes zoster, electrolyte abnormality, tumor.... This is not meant to be in all inclusive list EKG interpreted by me (3pts min.). @ -As above X-rays interpreted by me (1pt min.). @ -None done CT interpreted by me (1pt min.). @ -None done U/S interpreted by me (1pt. min.). @ -Ultrasound is suboptimal study but no evidence of DVT What testing was considered but not performed or refused? (CT, X-rays, U/S, labs)? Why? @ -None What meds were considered but not given or refused? Why? @ -None Did you discuss the management of the patient with other professionals (professionals i.e. , PA, PHARMACEUTICAL REPRESENTATIVE, lab, RT, psych nurse, social insurance analyst, expense analyst, teacher, chief analytics officer, foster care case manager)? Give summary @ -No Was smoking cessation discussed for >3mins.? @ -No Was critical care preformed (if so, how long)? @ -No Were there social determinants of health that impacted care today? How? (Homelessness, low income, unemployed, alcoholism, drug addiction, transportation, low edu. Level, literacy, decrease access to med. care, longterm, rehab)? @ -No Was there de-escalation of care discussed even if they declined (Discuss DNR or withdrawal of care, Hospice)? DNR status @ -No What co-morbidities impacted this encounter? (DM, HTN, Smoking, COPD, CAD, Cancer, CVA, ARF, Chemo, Hep., AIDS, mental health diagnosis, sleep apnea, morbid obesity)? @ -None Was patient admitted / discharged? Hospital course, mention meds given and route, prescriptions, significant lab abnormalities, going to OR and other pertinent info. @ -43-year-old female presenting with chief complaint of swelling to the left fingers. Patient is surgery on her left wrist earlier today, concerned that she may have a blood clot. She had a nerve block performed and her pain is well- controlled at this time. Her fingers are warm and pink. No evidence of compartment syndrome on exam. Ultrasound is a suboptimal study but no evidence seen of DVT. Patient is educated on today's findings and alarm symptoms that should prompt reevaluation. Volar splint is reapplied. Discharged. Follow-up with surgeon. Follow-up with PCP. Report back to ER with any new or worsening symptoms. Discussed return parameters and answered all questions. Patient conveyed verbal understanding and agreed to the plan. I discussed this case in detail with my attending Dr. Escobedo Undiagnosed new problem with uncertain prognosis? @ -No Drug Therapy requiring intensive monitoring for toxicity (Heparin, Nitro, Insulin, Cardizem)? @ -No Were any procedures done? @ -Volar splint applied Diagnosis/symptom? @ -Postoperative swelling Acute, or Chronic, or Acute on Chronic? @ -Acute Uncomplicated (without systemic symptoms) or Complicated (systemic symptoms)? @ -Uncomplicated Side effects of treatment? @ -No Exacerbation, Progression, or Severe Exacerbation? @ -No Poses a threat to life or bodily function? How? (Chest pain, [place], [place], pneumonia, PE, COPD, DKA, ARF, appy, cholecystitis, CVA, Diverticulitis, Homicidal, Suicidal, threat to staff... and all critical care pts) @ -No Disposition Clinical Impression: Post-operative state Disposition: HOME SELF-CARE Condition: Good Additional Instructions: Follow-up with your surgeon. Report back to ER with any new or worsening symptoms. Is patient prescribed a controlled substance at d/c from ED?: No Referrals: Patricia Gonzalez MD [Primary Care Provider] - 1-2 days Time of Disposition: 01:09
--- NOTE | 2024-08-05 00:46 | US ---
EXAMINATION TYPE: US venous doppler duplex UE LT DATE OF EXAM: 08/05/2024 COMPARISON: XRAY 08/04/24 CLINICAL INDICATION: Female, 43 years old with history of surgery; Patient states surgery of left for earm today. states swelling and redness in fingers. No hx dvt. Not on thinners TECHNIQUE: Grayscale, color Doppler and spectral Doppler imaging of the upper extremity. SIDE PERFORMED: Left FINDINGS: Left Arm: Appears negative for dvt as best seen. Unable to visualize the ulnar veins. Grayscale, color doppler, spectral doppler imaging performed of the deep veins of the upper extremiti es. IMPRESSION: Suboptimal study without ultrasound evidence for acute deep or superficial venous thrombosis in the l eft upper extremity. [facility], , 08/05/2024 12:44 AM
[2024-08-05 01:24] VITALS: BP 93/47; PULSE 67; RESP 17; TEMP 98.7
== END 2024-08-05 01:24 | disposition home or self-care (01) ==
LOC: EC 23:32
DX: L76.32 Postprocedural hematoma of skin and subcutaneous tissue following other procedure (principal); Z87.891 Personal history of nicotine dependence; Z88.0 Allergy status to penicillin; Z91.040 Latex allergy status; Z88.1 Allergy status to other antibiotic agents; Z88.8 Allergy status to other drugs, medicaments and biological substances
CPT/HCPCS: 29125; 99283

== ENCOUNTER 2024-08-06 10:46 | Emergency (ER) | payer OTHER ==
[2024-08-06 10:53] VITALS: RESP 16
--- NOTE | 2024-08-06 11:15 | ED ---
Recheck HPI - General Chief Complaint: Recheck/Abnormal Lab/Rx Stated Complaint: Post-op L arm pain Time Seen by Provider: 08/06/24 11:00 Source: patient, RN notes reviewed Mode of arrival: ambulatory Limitations: no limitations - History of Present Illness Initial Comments: This is a 43-year-old female presenting to the emergency department for left hand/wrist pain. Patient states that she had an outpatient procedure completed with Dr. Nguyen yesterday for carpal tunnel release and bone refixation of the left wrist. she has been having a difficult time controlling pain at home. She is prescribed Geismar-10 and Percocet. Additionally, patient was evaluated yesterday evening emergency department with concern for potential blood clot, ultrasound was ordered that was negative for DVT of the left upper extremity. she states that yesterday when she was evaluated in the ED she was not experiencing pain of the wrist, and her pain was very well controlled. She denies pain of the elbow, shoulder, paresthesias to the distal fingertips. denies recent trauma to the wrist after procedure. no other acute complaints at this time. - Related Data Home Medications Medication Instructions Recorded Confirmed DULoxetine HCL [Cymbalta] 60 mg PO BID 02/26/20 08/04/24 buPROPion XL [Wellbutrin XL] 150 mg PO DAILY 08/14/20 08/04/24 Cyclobenzaprine [Flexeril] 5 tab PO TID PRN 08/15/21 08/04/24 ARIPiprazole [Abilify] 10 mg PO DAILY 10/28/23 08/04/24 Albuterol Sulfate [Albuterol 2 puff INHALATION RT-Q4H PRN 10/28/23 08/04/24 Sulfate Hfa] Atomoxetine HCl [Strattera] 100 mg PO DAILY 10/28/23 08/04/24 Butalb/APAP/Caff 50-325-40Mg 1 - 2 tab PO Q6H PRN MDD 6 TAB/24HR 10/28/23 08/04/24 [Fioricet 50-325-40] Folic Acid 1 mg PO DAILY 10/28/23 08/04/24 Rimegepant Sulfate [Nurtec Odt] 1 tab PO DAILY PRN 10/28/23 08/04/24 Topiramate [Topiramate ER 150 mg PO DAILY 10/28/23 08/04/24 (Sprinkle)] busPIRone HCL 10 mg PO TID PRN 10/28/23 08/04/24 Dicyclomine [Bentyl] 10 mg PO DIRECTED PRN 05/21/24 08/04/24 Ipratropium-Albuterol Nebulize 3 ml INHALATION RT-QID PRN 05/21/24 08/04/24 [Duoneb 0.5 mg-3 mg/3 ml Soln] Metoprolol Succinate (ER) [Toprol 100 mg PO DAILY 05/21/24 08/04/24 Xl] Naproxen [EC-Naprosyn] 500 mg PO BID PRN 05/21/24 08/04/24 Amitriptyline HCl [Elavil] 25 mg PO HS 07/31/24 08/04/24 Doxycycline [Vibramycin] 100 mg PO BID 07/31/24 08/04/24 Ondansetron Odt [Zofran Odt] 8 mg PO Q8HR PRN 07/31/24 08/04/24 Pantoprazole [Protonix] 40 mg PO BID 07/31/24 08/04/24 Sucralfate [Carafate] 1 gm PO QID 07/31/24 08/04/24 oxyCODONE-APAP 5-325MG [Percocet 1 tab PO BID PRN 07/31/24 08/04/24 5-325 mg] Previous Rx's Medication Instructions Recorded Ondansetron Odt [Zofran Odt] 4 mg PO Q8HR PRN #20 tab 06/25/24 Allergies Allergy/AdvReac Type Severity Reaction Status Date / Time adhesive Allergy Rash/Hives Verified 08/06/24 10:54 latex Allergy Rash/Hives Verified 08/06/24 10:54 morphine Allergy Nausea & Verified 08/06/24 10:54 Vomiting prochlorperazine Allergy Nausea & Verified 08/06/24 10:54 [From Compazine] Vomiting ciprofloxacin [From Cipro] AdvReac Hallucinati Verified 08/06/24 10:54 ons citalopram [From Celexa] AdvReac Suicidal Verified 08/06/24 10:54 thoughts diazepam [From Valium] AdvReac Hallucinati Verified 08/06/24 10:54 ons/Anxiety fluoxetine [From Prozac] AdvReac Suicidal Verified 08/06/24 10:54 thoughts metoclopramide [From Reglan] AdvReac Hallucinati Verified 08/06/24 10:54 ons/Anxiety paroxetine [From Paxil] AdvReac Suicidal Verified 08/06/24 10:54 thoughts Penicillins AdvReac Nausea & Verified 08/06/24 10:54 Vomiting Review of Systems ROS Statement: Those systems with pertinent positive or pertinent negative responses have been documented in the HPI. ROS Other: All systems not noted in ROS Statement are negative. Past Medical History Past Medical History: Asthma, COPD, Fibromyalgia, GERD/Reflux, GI Bleed Additional Past Medical History / Comment(s): covid + pneumonia 10/30/2020 complicated by respiratory failure, intubation, mechanical ventilation, bilateral pneumothoraces, Other hx: Primary immunodeficiency, antral ulcers, GI bleed, anemia, IBS, migraines, back pain, TMJ, seasonal allergies, takes metoprolol for heart rate, tends to run low BP, current ulcer has peptic ulcer disease, back pain, taking A/B for resolving UTI History of Any Multi-Drug Resistant Organisms: None Reported Past Surgical History: Breast Surgery, Ear Surgery, Uterine Ablation Additional Past Surgical History / Comment(s): EGDs, colonoscopies, bilateral breast augmentation, septoplasty, L ear trauma/reattached. Past Anesthesia/Blood Transfusion Reactions: No Reported Reaction, Motion Sickness Additional Past Anesthesia/Blood Transfusion Reaction / Comment(s): Pt has received blood in past without reaction. Past Psychological History: ADD/ADHD, Anxiety, Bipolar, Depression, PTSD Smoking Status: Former smoker Past Alcohol Use History: None Reported Past Drug Use History: None Reported - Past Family History Father Additional Family Medical History / Comment(s): Father at age 51 from accidental drug overdose. Mother Family Medical History: Fibromyalgia Additional Family Medical History / Comment(s): Mother is alive at age 61 with history of primary immunodeficiency. Brother(s) Additional Family Medical History / Comment(s): Patient has one brother with history of alcohol abuse. Patient does not have any sisters. Patient has 2 children with no major medical problems. General Exam Limitations: no limitations General appearance: alert, in no apparent distress ENT exam: Present: normal exam, mucous membranes moist Respiratory exam: Present: normal lung sounds bilaterally. Absent: respiratory distress, wheezes, rales, rhonchi, stridor Cardiovascular Exam: Present: regular rate, normal rhythm, normal heart sounds. Absent: systolic murmur, diastolic murmur, rubs, gallop, clicks GI/Abdominal exam: Present: soft, normal bowel sounds. Absent: distended, tenderness, guarding, rebound, rigid Left Hand Wrist exam: Present: tenderness, swelling, ecchymosis. Absent: full ROM Vascular: Present: normal capillary refill, radial pulse (2+). Absent: vascular compromise Skin exam: Present: warm, dry, intact, normal color. Absent: rash Course Vital Signs 08/06/24 08/06/24 10:52 12:26 Temperature 97.6 F 97.8 F Pulse Rate 81 79 Respiratory 16 16 Rate Blood Pressure 100/66 103/69 O2 Sat by Pulse 98 98 Oximetry Medical Decision Making - Medical Decision Making Was pt. sent in by a medical professional or institution (, PA, ORCHID WORKER, urgent care, hospital, or longterm...) When possible be specific @ -No Did you speak to anyone other than the patient for history (EMS, parent, family, police, friend...)? What history was obtained from this source @ -No Did you review nursing and triage notes (agree or disagree)? Why? @ -I reviewed and agree with nursing and triage notes Were old charts reviewed (outside hosp., previous admission, EMS record, old EKG, old radiological studies, urgent care reports/EKG's, longterm records)? Report findings @ -duplex ultrasound of the left upper extremity reveals no evidence for acute deep or superficial venous stenosis in the left upper extremity Differential Diagnosis (chest pain, altered mental status, abdominal pain women, abdominal pain men, vaginal bleeding, weakness, fever, dyspnea, syncope, headache, dizziness, GI bleed, back pain, seizure, CVA, palpatations, mental health, musculoskeletal)? @ -Differential Musculoskeletal Muscular strain, contusion, ligament sprain, fracture, arthritis, septic arthritis, bursitis, cellulitis, muscle spasm, nerve compression, DVT, arterial occlusion, herpes zoster, electrolyte abnormality, tumor.... This is not meant to be in all inclusive list EKG interpreted by me (3pts min.). @ -none X-rays interpreted by me (1pt min.). @ -None done CT interpreted by me (1pt min.). @ -None done U/S interpreted by me (1pt. min.). @ -None done What testing was considered but not performed or refused? (CT, X-rays, U/S, labs)? Why? @ -None What meds were considered but not given or refused? Why? @ -None Did you discuss the management of the patient with other professionals (professionals i.e. DrKatie, PA, ORCHID WORKER, lab, RT, psych nurse, social media director, microbiology quality control technician, teacher, dog control officer, machine adjuster leader case trim)? Give summary @ -No Was smoking cessation discussed for >3mins.? @ -No Was critical care preformed (if so, how long)? @ -No Were there social determinants of health that impacted care today? How? (Homelessness, low income, unemployed, alcoholism, drug addiction, transportation, low edu. Level, literacy, decrease access to med. care, penitentiary, rehab)? @ -No Was there de-escalation of care discussed even if they declined (Discuss DNR or withdrawal of care, Hospice)? DNR status @ -No What co-morbidities impacted this encounter? (DM, HTN, Smoking, COPD, CAD, Cancer, CVA, ARF, Chemo, Hep., AIDS, mental health diagnosis, sleep apnea, morbid obesity)? @ -None Was patient admitted / discharged? Hospital course, mention meds given and route, prescriptions, significant lab abnormalities, going to OR and other pertinent info. @ -Discharge. 43-year-old female presenting with complaint of left wrist pain following procedure yesterday. Patient is neurovascular tact of the left upper extremity. Radial pulse 2+. Range of motion of the wrist not assessed due to patient having recent surgery of the wrist. She is provided with dose of pain medication. Reevaluation, states that she is feeling markedly better. Offer to contact patient's hand surgeon however she has declined this time. States that she feels comfortable continuing her outpatient prescribed pain medications and following up with surgeon for continued evaluation. Discussed with Dr. Douglas Undiagnosed new problem with uncertain prognosis? @ -No Drug Therapy requiring intensive monitoring for toxicity (Heparin, Nitro, Insulin, Cardizem)? @ -No Were any procedures done? @ -No Diagnosis/symptom? @ -post-operative wrist pain Acute, or Chronic, or Acute on Chronic? @ -acute Uncomplicated (without systemic symptoms) or Complicated (systemic symptoms)? @ -uncomplicated Side effects of treatment? @ -No Exacerbation, Progression, or Severe Exacerbation? @ -No Poses a threat to life or bodily function? How? (Chest pain, [place], [place], pneumonia, PE, COPD, DKA, ARF, appy, cholecystitis, CVA, Diverticulitis, Homicidal, Suicidal, threat to staff... and all critical care pts) @ -No Disposition Clinical Impression: Post-operative pain Disposition: HOME SELF-CARE Condition: Stable Instructions (If sedation given, give patient instructions): Carpal Tunnel Surgery (DC) Additional Instructions: Please return to the Emergency Department if symptoms worsen or any other concerns. Is patient prescribed a controlled substance at d/c from ED?: No Referrals: Patricia Gonzalez MD [Primary Care Provider] - 1-2 days Time of Disposition: 12:20
[2024-08-06] MEDS: HYDROmorphone 1 MG/ML 1 ML SYRINGE IM STA (11:27)
[2024-08-06 12:29] VITALS: BP 103/69; PULSE 79; TEMP 97.8
== END 2024-08-06 12:37 | disposition home or self-care (01) ==
LOC: EC 10:46
DX: G89.18 Other acute postprocedural pain (principal); M25.532 Pain in left wrist; Z87.891 Personal history of nicotine dependence; Z88.0 Allergy status to penicillin; Z88.1 Allergy status to other antibiotic agents; Z88.8 Allergy status to other drugs, medicaments and biological substances; Z91.040 Latex allergy status; Z86.16 Personal history of COVID-19
CPT/HCPCS: 99283; 96372; J1171

== ENCOUNTER 2024-08-08 20:55 | Emergency (ER) | payer OTHER ==
--- NOTE | 2024-08-08 21:46 | ED ---
Recheck HPI - General Chief Complaint: Nausea/Vomiting/Diarrhea Stated Complaint: POST SURG COMP Time Seen by Provider: 08/08/24 21:43 Source: patient, RN notes reviewed, old records reviewed Mode of arrival: ambulatory Limitations: no limitations - History of Present Illness Initial Comments: This is a 43-year-old female to the ER for evaluation of postoperative pain, patient has recent evaluation for infection and blood clot in that arm which was clearing negative, she is unable to take her pain medication at home and pain is out of control MD Complaint: medication refill request -: days(s) Returns Today for: persistent/worsening pain related to initial visit Symptoms Since Prior Visit: worsening pain Associated Symptoms: nausea Treatments Prior to Arrival: Given Pain Meds on - Related Data Home Medications Medication Instructions Recorded Confirmed DULoxetine HCL [Cymbalta] 60 mg PO BID 02/26/20 08/04/24 buPROPion XL [Wellbutrin XL] 150 mg PO DAILY 08/14/20 08/04/24 Cyclobenzaprine [Flexeril] 5 tab PO TID PRN 08/15/21 08/04/24 ARIPiprazole [Abilify] 10 mg PO DAILY 10/28/23 08/04/24 Albuterol Sulfate [Albuterol 2 puff INHALATION RT-Q4H PRN 10/28/23 08/04/24 Sulfate Hfa] Atomoxetine HCl [Strattera] 100 mg PO DAILY 10/28/23 08/04/24 Butalb/APAP/Caff 50-325-40Mg 1 - 2 tab PO Q6H PRN MDD 6 TAB/24HR 10/28/23 08/04/24 [Fioricet 50-325-40] Folic Acid 1 mg PO DAILY 10/28/23 08/04/24 Rimegepant Sulfate [Nurtec Odt] 1 tab PO DAILY PRN 10/28/23 08/04/24 Topiramate [Topiramate ER 150 mg PO DAILY 10/28/23 08/04/24 (Sprinkle)] busPIRone HCL 10 mg PO TID PRN 10/28/23 08/04/24 Dicyclomine [Bentyl] 10 mg PO DIRECTED PRN 05/21/24 08/04/24 Ipratropium-Albuterol Nebulize 3 ml INHALATION RT-QID PRN 05/21/24 08/04/24 [Duoneb 0.5 mg-3 mg/3 ml Soln] Metoprolol Succinate (ER) [Toprol 100 mg PO DAILY 05/21/24 08/04/24 Xl] Naproxen [EC-Naprosyn] 500 mg PO BID PRN 05/21/24 08/04/24 Amitriptyline HCl [Elavil] 25 mg PO HS 07/31/24 08/04/24 Doxycycline [Vibramycin] 100 mg PO BID 07/31/24 08/04/24 Ondansetron Odt [Zofran Odt] 8 mg PO Q8HR PRN 07/31/24 08/04/24 Pantoprazole [Protonix] 40 mg PO BID 07/31/24 08/04/24 Sucralfate [Carafate] 1 gm PO QID 07/31/24 08/04/24 oxyCODONE-APAP 5-325MG [Percocet 1 tab PO BID PRN 07/31/24 08/04/24 5-325 mg] Previous Rx's Medication Instructions Recorded Ondansetron Odt [Zofran Odt] 4 mg PO Q8HR PRN #20 tab 06/25/24 Allergies Allergy/AdvReac Type Severity Reaction Status Date / Time adhesive Allergy Rash/Hives Verified 08/08/24 21:08 latex Allergy Rash/Hives Verified 08/08/24 21:08 morphine Allergy Nausea & Verified 08/08/24 21:08 Vomiting prochlorperazine Allergy Nausea & Verified 08/08/24 21:08 [From Compazine] Vomiting ciprofloxacin [From Cipro] AdvReac Hallucinati Verified 08/08/24 21:08 ons citalopram [From Celexa] AdvReac Suicidal Verified 08/08/24 21:08 thoughts diazepam [From Valium] AdvReac Hallucinati Verified 08/08/24 21:08 ons/Anxiety fluoxetine [From Prozac] AdvReac Suicidal Verified 08/08/24 21:08 thoughts metoclopramide [From Reglan] AdvReac Hallucinati Verified 08/08/24 21:08 ons/Anxiety paroxetine [From Paxil] AdvReac Suicidal Verified 08/08/24 21:08 thoughts Penicillins AdvReac Nausea & Verified 08/08/24 21:08 Vomiting Review of Systems ROS Statement: Those systems with pertinent positive or pertinent negative responses have been documented in the HPI. ROS Other: All systems not noted in ROS Statement are negative. Past Medical History Past Medical History: Asthma, COPD, Fibromyalgia, GERD/Reflux, GI Bleed Additional Past Medical History / Comment(s): covid + pneumonia 10/30/2020 complicated by respiratory failure, intubation, mechanical ventilation, bilateral pneumothoraces, Other hx: Primary immunodeficiency, antral ulcers, GI bleed, anemia, IBS, migraines, back pain, TMJ, seasonal allergies, takes metoprolol for heart rate, tends to run low BP, current ulcer has peptic ulcer disease, back pain, taking A/B for resolving UTI History of Any Multi-Drug Resistant Organisms: None Reported Past Surgical History: Breast Surgery, Ear Surgery, Uterine Ablation Additional Past Surgical History / Comment(s): EGDs, colonoscopies, bilateral breast augmentation, septoplasty, L ear trauma/reattached. Past Anesthesia/Blood Transfusion Reactions: No Reported Reaction, Motion Sickness Additional Past Anesthesia/Blood Transfusion Reaction / Comment(s): Pt has received blood in past without reaction. Past Psychological History: ADD/ADHD, Anxiety, Bipolar, Depression, PTSD Smoking Status: Former smoker Past Alcohol Use History: None Reported Past Drug Use History: None Reported - Past Family History Father Additional Family Medical History / Comment(s): Father at age 51 from accidental drug overdose. Mother Family Medical History: Fibromyalgia Additional Family Medical History / Comment(s): Mother is alive at age 61 with history of primary immunodeficiency. Brother(s) Additional Family Medical History / Comment(s): Patient has one brother with history of alcohol abuse. Patient does not have any sisters. Patient has 2 children with no major medical problems. General Exam Limitations: no limitations General appearance: alert, in no apparent distress, anxious Head exam: Present: atraumatic, normocephalic, normal inspection Eye exam: Present: normal appearance, PERRL, EOMI. Absent: scleral icterus, conjunctival injection, periorbital swelling ENT exam: Present: normal exam, mucous membranes moist Neck exam: Present: normal inspection. Absent: tenderness, meningismus, l ymphadenopathy Respiratory exam: Present: normal lung sounds bilaterally. Absent: respiratory distress, wheezes, rales, rhonchi, stridor Cardiovascular Exam: Present: regular rate, normal rhythm, normal heart sounds. Absent: systolic murmur, diastolic murmur, rubs, gallop, clicks GI/Abdominal exam: Present: soft, normal bowel sounds. Absent: distended, tenderness, guarding, rebound, rigid Extremities exam: Present: normal inspection, full ROM, normal capillary refill. Absent: tenderness, pedal edema, joint swelling, calf tenderness Back exam: Present: normal inspection Neurological exam: Present: alert, oriented X3, CN II-XII intact Psychiatric exam: Present: normal affect, normal mood Skin exam: Present: warm, dry, intact, normal color. Absent: rash Course Vital Signs 08/08/24 08/09/24 21:04 01:42 Temperature 98.2 F 98.4 F Pulse Rate 65 71 Respiratory 20 16 Rate Blood Pressure 115/82 122/92 O2 Sat by Pulse 96 100 Oximetry - Reevaluation(s) Reevaluation #1: 08/08/24 22:31 Medical records reviewed Reevaluation #2: Patient's pain is well-controlled here in the ER Reevaluation #3: Patient informed of results and questions answered Reevaluation #4: Was pt. sent in by a medical professional or institution (, PA, MARKETING FINANCIAL ANALYST, urgent care, hospital, or halfway...) When possible be specific @ -no Did you speak to anyone other than the patient for history (EMS, parent, family, police, friend...)? What history was obtained from this source @ -no Did you review nursing and triage notes (agree or disagree)? Why? @ -agree Are old charts reviewed (outside hosp., previous admission, EMS record, old EKG, old radiological studies, urgent care reports/EKG's, halfway records)? Report findings @ -yes Differential Diagnosis (chest pain, altered mental status, abdominal pain women, abdominal pain men, vaginal bleeding, weakness, fever, dyspnea, syncope, headache, dizziness, GI bleed, back pain, seizure, CVA, palpatations, mental health, musculoskeletal)? @ -prior EKG interpreted by me (3pts min.). @ -yes X-rays interpreted by me (1pt min.). @ -no CT interpreted by me (1pt min.). @ -no U/S interpreted by me (1pt. min.). @ -no What testing was considered but not performed or refused? (CT, X-rays, U/S, labs)? Why? @ -none What meds were considered but not given or refused? Why? @ -none Did you discuss the management of the patient with other professionals (professionals i.e. , PA, MARKETING FINANCIAL ANALYST, lab, RT, psych nurse, social media community manager, base brander, teacher, accounting officer, major case detective)? Give summary @ -no Was smoking cessation discussed for >3mins.? @ -no Was critical care preformed (if so, how long)? @ -no Were there social determinants of health that impacted care today? How? (Homelessness, low income, unemployed, alcoholism, drug addiction, transportation, low edu. Level, literacy, decrease access to med. care, longterm, rehab)? @ -none Was there de-escalation of care discussed even if they declined (Discuss DNR or withdrawal of care, Hospice)? DNR status @ -no What co-morbidities impacted this encounter? (DM, HTN, Smoking, COPD, CAD, Cancer, CVA, ARF, Chemo, Hep., AIDS, mental health diagnosis, sleep apnea, morbid obesity)? @ -none Was patient admitted / discharged? Hospital course, mention meds given and route, prescriptions, significant lab abnormalities, going to OR and other pertinent info. @ - 43 female for evaluation of postoperative pain. Patient pain is well- controlled here in the ER feels well and can be discharged home Discharge Undiagnosed new problem with uncertain prognosis? @ -no Drug Therapy requiring intensive monitoring for toxicity (Heparin, Nitro, Insulin, Cardizem)? @ -no Were any procedures done? @ -no Diagnosis/symptom? @ -Postoperative pain Acute, or Chronic, or Acute on Chronic? @ -Acute Uncomplicated (without systemic symptoms) or Complicated (systemic symptoms)? @ -Complicated Side effects of treatment? @ -no Exacerbation, Progression, or Severe Exacerbation? @ -exacerbation Poses a threat to life or bodily function? How? (Chest pain, USA, CT, pneumonia, PE, COPD, DKA, ARF, appy, cholecystitis, CVA, Diverticulitis, Homicidal, Suicidal, threat to staff... and all critical care pts) @ -yes of postoperative complications Medical Decision Making - Medical Decision Making 43 female for evaluation of postoperative pain. Patient pain is well-controlled here in the ER feels well and can be discharged home - Lab Data Result diagrams: 08/08/24 22:28 08/08/24 22: Lab Results 08/08/24 08/08/24 Range/Units 22: 22:28 WBC 6.4 (3.8-10.6) k/uL RBC 3.61 L (3.80-5.40) m/uL Hgb 10.0 L (11.4-16.0) gm/dL Hct 32.0 L (34.0-46.0) % MCV 88.7 (80.0-100.0) fL MCH 27.8 (25.0-35.0) pg MCHC 31.4 (31.0-37.0) g/dL RDW 16.6 H (11.5-15.5) % Plt Count 480 H (150-450) k/uL MPV 7.2 Neutrophils % 58 % Lymphocytes % 28 % Monocytes % 6 % Eosinophils % 3 % Basophils % 0 % Neutrophils # 3.7 (1.3-7.7) k/uL Lymphocytes # 1.8 (1.0-4.8) k/uL Monocytes # 0.4 (0-1.0) k/uL Eosinophils # 0.2 (0-0.7) k/uL Basophils # 0.0 (0-0.2) k/uL Hypochromasia Moderate Anisocytosis Slight Sodium 140 (137-145) mmol/L Potassium 3.6 (3.5-5.1) mmol/L Chloride 106 (98-107) mmol/L Carbon Dioxide 27 (22-30) mmol/L Anion Gap 7 mmol/L BUN 18 H (7-17) mg/dL Creatinine 0.63 (0.52-1.04) mg/dL Est GFR (CKD-EPI)AfAm >90 (>60 ml/min/1.73 sqM) Est GFR (CKD-EPI)NonAf >90 (>60 ml/min/1.73 sqM) Glucose 97 (74-99) mg/dL Calcium 10.1 (8.4-10.2) mg/dL Phosphorus 4.6 H (2.5-4.5) mg/dL Magnesium 2.0 (1.6-2.3) mg/dL Total Bilirubin 0.4 (0.2-1.3) mg/dL AST 54 H (14-36) U/L ALT 90 H (4-34) U/L Alkaline Phosphatase 364 H (38-126) U/L Total Protein 7.2 (6.3-8.2) g/dL Albumin 4.5 (3.5-5.0) g/dL Lipase 31 (23-300) U/L - EKG Data -: EKG Interpreted by Me (EKG sinus 79 [place] 149 QRS 93 QTc 416) Disposition Clinical Impression: Post-operative state, Post-operative pain Disposition: HOME SELF-CARE Condition: Good Instructions (If sedation given, give patient instructions): Pain Management (ED) Is patient prescribed a controlled substance at d/c from ED?: No Referrals: Patricia Gonzalez MD [Primary Care Provider] - 1-2 days Time of Disposition: 01:20
[2024-08-08 22:36] LABS: Anisocytosis Slight; Basophils % (A) 0 %; Eosinophils # (A) 0.2 k/uL (0-0.7); Eosinophils % (A) 3 %; Hypochromasia Moderate; Lymphocytes # (A) 1.8 k/uL (1.0-4.8); Lymphocytes % (A) 28 %; MCH 27.8 pg (25.0-35.0); MCHC 31.4 g/dL (31.0-37.0); MCV 88.7 fL (80.0-100.0); Mean Platelet Volume 7.2; Monocytes # (A) 0.4 k/uL (0-1.0); Monocytes % (A) 6 %; Neutrophils # (A) 3.7 k/uL (1.3-7.7); Neutrophils % (A) 58 %; Platelet Count 480 k/uL (150-450); RBC 3.61 m/uL (3.80-5.40); RDW 16.6 % (11.5-15.5); WBC 6.4 k/uL (3.8-10.6)
[2024-08-08] MEDS: SODIUM CHLORIDE 0.9% 1,000 ML IV STA (22:42)
[2024-08-08] MEDS: diphenhydrAMINE 50 MG/ML 1 ML VIAL IVP STA (22:42)
[2024-08-08] MEDS: KETOROLAC 15 MG/ML 1 ML VIAL IVP STA (22:43)
[2024-08-08] MEDS: ONDANSETRON 4 MG/2 ML VIAL IVP STA (22:44)
[2024-08-08] MEDS: HYDROmorphone 1 MG/ML 1 ML SYRINGE IVP STA (22:45)
[2024-08-08 22:48] LABS: ALT 90 U/L (4-34); AST 54 U/L (14-36); African American GFR (CKD) >90 (>60 ml/min/1.73 sqM); Albumin 4.5 g/dL (3.5-5.0); Alkaline Phosphatase 364 U/L (38-126); Anion Gap 7 mmol/L; Blood Urea Nitrogen 18 mg/dL (7-17); Calcium 10.1 mg/dL (8.4-10.2); Carbon Dioxide 27 mmol/L (22-30); Chloride 106 mmol/L (98-107); Glucose 97 mg/dL (74-99); Lipase 31 U/L (23-300); Non-African American GFR(CKD) >90 (>60 ml/min/1.73 sqM); Phosphorus 4.6 mg/dL (2.5-4.5); Potassium 3.6 mmol/L (3.5-5.1); Sodium 140 mmol/L (137-145); Total Bilirubin 0.4 mg/dL (0.2-1.3); Total Protein 7.2 g/dL (6.3-8.2)
[2024-08-09] MEDS: HYDROmorphone 1 MG/ML 1 ML SYRINGE IVP STA (00:16)
[2024-08-09] MEDS: droPERidol 5 MG/2 ML VIAL IVP ONE (00:17)
[2024-08-09] MEDS: SODIUM CHLORIDE 0.9% 500 ML 500 ML IV STA (01:26)
[2024-08-09 01:43] VITALS: BP 122/92; PULSE 71; RESP 16; TEMP 98.4
[2024-08-09] MEDS: ONDANSETRON 4 MG ODT STARTER PACK 2 TAB BTL PO STA (02:11)
== END 2024-08-09 02:15 | disposition home or self-care (01) ==
LOC: EC 20:55
DX: G89.18 Other acute postprocedural pain (principal); Z88.0 Allergy status to penicillin; Z88.1 Allergy status to other antibiotic agents; Z88.8 Allergy status to other drugs, medicaments and biological substances; Z91.040 Latex allergy status; Z86.16 Personal history of COVID-19; Z87.891 Personal history of nicotine dependence
CPT/HCPCS: 99284; 96374; 96375 ×4; 96376; 96361 ×3; 36415; 93005; 80053; 83690; 83735; 84100; 85025; J1200; J2405; J1171 ×2; J1885; S0119; J1790

== ENCOUNTER 2024-09-22 11:14 | Emergency (ER) | payer OTHER ==
[2024-09-22 11:20] VITALS: RESP 18
[2024-09-22] MEDS: SODIUM CHLORIDE 0.9% 1,000 ML IV ONE (12:06)
[2024-09-22] MEDS: ONDANSETRON 4 MG/2 ML VIAL IVP STA (12:07)
[2024-09-22] MEDS: KETOROLAC 15 MG/ML 1 ML VIAL IVP STA (12:08)
[2024-09-22] MEDS: diphenhydrAMINE 50 MG/ML 1 ML VIAL IVP STA (12:08)
--- NOTE | 2024-09-22 12:16 | ED ---
General Adult HPI - General Chief complaint: Headache Stated complaint: 7Day Migraine Time Seen by Provider: 09/22/24 11:29 Source: patient, RN notes reviewed Mode of arrival: ambulatory Limitations: no limitations - History of Present Illness Initial comments: 43-year-old female presents to the emergency department for evaluation of headache. Patient reports that she has a history of migraines and this feels similar. Pain is located in the front of her head. She states that this has been going on for around a week and she has attempted her abortive medications without relief. She denies any recent fever or illness. - Related Data Home Medications Medication Instructions Recorded Confirmed DULoxetine HCL [Cymbalta] 60 mg PO BID 02/26/20 08/04/24 buPROPion XL [Wellbutrin XL] 150 mg PO DAILY 08/14/20 08/04/24 Cyclobenzaprine [Flexeril] 5 tab PO TID PRN 08/15/21 08/04/24 ARIPiprazole [Abilify] 10 mg PO DAILY 10/28/23 08/04/24 Albuterol Sulfate [Albuterol 2 puff INHALATION RT-Q4H PRN 10/28/23 08/04/24 Sulfate Hfa] Atomoxetine HCl [Strattera] 100 mg PO DAILY 10/28/23 08/04/24 Butalb/APAP/Caff 50-325-40Mg 1 - 2 tab PO Q6H PRN MDD 6 TAB/24HR 10/28/23 08/04/24 [Fioricet 50-325-40] Folic Acid 1 mg PO DAILY 10/28/23 08/04/24 Rimegepant Sulfate [Nurtec Odt] 1 tab PO DAILY PRN 10/28/23 08/04/24 Topiramate [Topiramate ER 150 mg PO DAILY 10/28/23 08/04/24 (Sprinkle)] busPIRone HCL 10 mg PO TID PRN 10/28/23 08/04/24 Dicyclomine [Bentyl] 10 mg PO DIRECTED PRN 05/21/24 08/04/24 Ipratropium-Albuterol Nebulize 3 ml INHALATION RT-QID PRN 05/21/24 08/04/24 [Duoneb 0.5 mg-3 mg/3 ml Soln] Metoprolol Succinate (ER) [Toprol 100 mg PO DAILY 05/21/24 08/04/24 Xl] Naproxen [EC-Naprosyn] 500 mg PO BID PRN 05/21/24 08/04/24 Amitriptyline HCl [Elavil] 25 mg PO HS 07/31/24 08/04/24 Doxycycline [Vibramycin] 100 mg PO BID 07/31/24 08/04/24 Ondansetron Odt [Zofran Odt] 8 mg PO Q8HR PRN 07/31/24 08/04/24 Pantoprazole [Protonix] 40 mg PO BID 07/31/24 08/04/24 Sucralfate [Carafate] 1 gm PO QID 07/31/24 08/04/24 oxyCODONE-APAP 5-325MG [Percocet 1 tab PO BID PRN 07/31/24 08/04/24 5-325 mg] Previous Rx's Medication Instructions Recorded Ondansetron Odt [Zofran Odt] 4 mg PO Q8HR PRN #20 tab 06/25/24 Allergies Allergy/AdvReac Type Severity Reaction Status Date / Time adhesive Allergy Rash/Hives Verified 09/22/24 11:20 latex Allergy Rash/Hives Verified 09/22/24 11:20 morphine Allergy Nausea & Verified 09/22/24 11:20 Vomiting prochlorperazine Allergy Nausea & Verified 09/22/24 11:20 [From Compazine] Vomiting ciprofloxacin [From Cipro] AdvReac Hallucinati Verified 09/22/24 11:20 ons citalopram [From Celexa] AdvReac Suicidal Verified 09/22/24 11:20 thoughts diazepam [From Valium] AdvReac Hallucinati Verified 09/22/24 11:20 ons/Anxiety fluoxetine [From Prozac] AdvReac Suicidal Verified 09/22/24 11:20 thoughts metoclopramide [From Reglan] AdvReac Hallucinati Verified 09/22/24 11:20 ons/Anxiety paroxetine [From Paxil] AdvReac Suicidal Verified 09/22/24 11:20 thoughts Penicillins AdvReac Nausea & Verified 09/22/24 11:20 Vomiting Review of Systems ROS Statement: Those systems with pertinent positive or pertinent negative responses have been documented in the HPI. ROS Other: All systems not noted in ROS Statement are negative. Past Medical History Past Medical History: Asthma, COPD, Fibromyalgia, GERD/Reflux, GI Bleed Additional Past Medical History / Comment(s): covid + pneumonia 10/30/2020 complicated by respiratory failure, intubation, mechanical ventilation, bilateral pneumothoraces, Other hx: Primary immunodeficiency, antral ulcers, GI bleed, anemia, IBS, migraines, back pain, TMJ, seasonal allergies, takes metoprolol for heart rate, tends to run low BP, current ulcer has peptic ulcer disease, back pain, taking A/B for resolving UTI History of Any Multi-Drug Resistant Organisms: None Reported Past Surgical History: Breast Surgery, Ear Surgery, Uterine Ablation Additional Past Surgical History / Comment(s): EGDs, colonoscopies, bilateral breast augmentation, septoplasty, L ear trauma/reattached. Past Anesthesia/Blood Transfusion Reactions: No Reported Reaction, Motion Sickness Additional Past Anesthesia/Blood Transfusion Reaction / Comment(s): Pt has received blood in past without reaction. Past Psychological History: ADD/ADHD, Anxiety, Bipolar, Depression, PTSD Smoking Status: Former smoker Past Alcohol Use History: None Reported Past Drug Use History: Marijuana - Past Family History Father Additional Family Medical History / Comment(s): Father at age 51 from accidental drug overdose. Mother Family Medical History: Fibromyalgia Additional Family Medical History / Comment(s): Mother is alive at age 61 with history of primary immunodeficiency. Brother(s) Additional Family Medical History / Comment(s): Patient has one brother with history of alcohol abuse. Patient does not have any sisters. Patient has 2 children with no major medical problems. General Exam Limitations: no limitations General appearance: alert, in no apparent distress Head exam: Present: atraumatic, normocephalic, normal inspection Eye exam: Present: normal appearance, PERRL, EOMI. Absent: scleral icterus, conjunctival injection, periorbital swelling ENT exam: Present: normal exam, mucous membranes moist Neck exam: Present: normal inspection. Absent: tenderness, meningismus, lymphadenopathy Respiratory exam: Present: normal lung sounds bilaterally. Absent: respiratory distress, wheezes, rales, rhonchi, stridor Cardiovascular Exam: Present: regular rate, normal rhythm, normal heart sounds. Absent: systolic murmur, diastolic murmur, rubs, gallop, clicks GI/Abdominal exam: Present: soft. Absent: distended, tenderness, guarding, rebound, rigid Neurological exam: Present: alert, oriented X3, CN II-XII intact Psychiatric exam: Present: normal affect, normal mood Skin exam: Present: warm, dry, intact, normal color. Absent: rash Course Vital Signs 09/22/24 09/22/24 11:16 13:05 Temperature 97.8 F Pulse Rate 86 81 Respiratory 18 18 Rate Blood Pressure 93/68 98/60 O2 Sat by Pulse 96 100 Oximetry Medical Decision Making - Medical Decision Making Was pt. sent in by a medical professional or institution (, PA, COLLECTION AGENT, urgent care, hospital, or group home...) When possible be specific @ -[No] Did you speak to anyone other than the patient for history (EMS, parent, family, police, friend...)? What history was obtained from this source @ -[No] Did you review nursing and triage notes (agree or disagree)? Why? @ -[I reviewed and agree with nursing and triage notes] Were old charts reviewed (outside hosp., previous admission, EMS record, old EKG, old radiological studies, urgent care reports/EKG's, group home records)? Report findings @ -[No old charts were reviewed] Differential Diagnosis (chest pain, altered mental status, abdominal pain women, abdominal pain men, vaginal bleeding, weakness, fever, dyspnea, syncope, headache, dizziness, GI bleed, back pain, seizure, CVA, palpatations, mental health, musculoskeletal)? @ -[Differential Headache: Migraine, tension, cluster, carbon monoxide, central venous thrombosis, pension karma temporal arteritis, acute closure glaucoma, intercranial hemorrhage, mastoiditis, sinusitis, head injury, this is not meant to be an all-inclusive list. ] EKG interpreted by me (3pts min.). @ -None X-rays interpreted by me (1pt min.). @ -[None done] CT interpreted by me (1pt min.). @ -[None done] U/S interpreted by me (1pt. min.). @ -[None done] What testing was considered but not performed or refused? (CT, X-rays, U/S, labs)? Why? @ -[None] What meds were considered but not given or refused? Why? @ -[None] Did you discuss the management of the patient with other professionals (professionals i.e. , PA, COLLECTION AGENT, lab, RT, psych nurse, home health care social worker, centrifugal supervisor, teacher, grants officer, top case assembler)? Give summary @ -[No] Was smoking cessation discussed for >3mins.? @ -[No] Was critical care preformed (if so, how long)? @ -[No] Were there social determinants of health that impacted care today? How? (Homelessness, low income, unemployed, alcoholism, drug addiction, transportation, low edu. Level, literacy, decrease access to med. care, penitentiary, rehab)? @ -[No] Was there de-escalation of care discussed even if they declined (Discuss DNR or withdrawal of care, Hospice)? DNR status @ -[No] What co-morbidities impacted this encounter? (DM, HTN, Smoking, COPD, CAD, Cancer, CVA, ARF, Chemo, Hep., AIDS, mental health diagnosis, sleep apnea, morbid obesity)? @ -[None] Was patient admitted / discharged? Hospital course, mention meds given and route, prescriptions, significant lab abnormalities, going to OR and other pertinent info. @ -[hospital course] Undiagnosed new problem with uncertain prognosis? @ -[No] Drug Therapy requiring intensive monitoring for toxicity (Heparin, Nitro, Insulin, Cardizem)? @ -[No] Were any procedures done? @ -[No] Diagnosis/symptom? @ -[default] Acute, or Chronic, or Acute on Chronic? @ -[default] Uncomplicated (without systemic symptoms) or Complicated (systemic symptoms)? @ -[default] Side effects of treatment? @ -[No] Exacerbation, Progression, or Severe Exacerbation? @ -[No] Poses a threat to life or bodily function? How? (Chest pain, USA, [place], pneumonia, PE, COPD, DKA, ARF, appy, cholecystitis, CVA, Diverticulitis, Homicidal, Suicidal, threat to staff... and all critical care pts) @ -[No] Disposition Clinical Impression: Headache Disposition: HOME SELF-CARE Condition: Stable Instructions (If sedation given, give patient instructions): Acute Headache (ED) Additional Instructions: Please follow up with your primary care provider. Return to the emergency department for new or worsening symptoms. Is patient prescribed a controlled substance at d/c from ED?: No Referrals: Patricia Gonzalez MD [Primary Care Provider] - 1-2 days
[2024-09-22] MEDS: droPERidol 2.5 MG/ML VIAL IVP ONE (13:42)
[2024-09-22 14:14] VITALS: BP 111/68; PULSE 75; TEMP 98.1
== END 2024-09-22 14:13 | disposition home or self-care (01) ==
LOC: EC 11:14
DX: R51.9 Headache, unspecified (principal); Z87.891 Personal history of nicotine dependence; Z88.0 Allergy status to penicillin; Z88.5 Allergy status to narcotic agent; Z91.09 Other allergy status, other than to drugs and biological substances; Z91.040 Latex allergy status; Z88.8 Allergy status to other drugs, medicaments and biological substances
CPT/HCPCS: 93005; 99283; 96374; 96375; 96361; J1200; J2405; J1885; J1790

== ENCOUNTER → 2024-11-10 | Day surgery (SDC) | payer OTHER ==
[2024-11-10] MEDS: IV FLUID CONTINUATION 1,000 ML IV ONE (08:10)
[2024-11-10] MEDS: SODIUM CHLORIDE 0.9% 1,000 ML IV SCH (08:13)
[2024-11-10 08:27] VITALS: BP 84/55; PULSE 87; RESP 16; TEMP 98.4
--- NOTE | 2024-11-10 12:43 | P.EPPROC ---
- EP Procedure Note Electrophysiology Procedure Note: Diagnosis Recurrent syncope 12 EKG shows sinus rhythm normal [place] narrow QRS normal ST segments Tilt table test Baseline blood pressure 90/51 mmHg Baseline heart rate 73 beats a minute Patient was tilted upright on maculas 70 degrees per protocol Her blood pressure and heart rate remained unchanged Her blood pressure remained between 80 to 90 mmHg Towards the end of the test the blood pressure reduced to 78/57 mmHg. She felt fuzzy all over Minimal increase in heart rate into the 90s No syncope Impression Normal twelve-lead EKG Baseline low blood pressure at rest, in the supine position as well as in the upright position No significant change in blood pressure with change in body position No evidence for neurocardiogenic syncope
== END ==
LOC: CATHEP 07:39
PROVIDERS: ATTEND Internal Medicine Clinical Cardiac Electrophysiology
DX: R55 Syncope and collapse (principal); G47.10 Hypersomnia, unspecified; G90.4 Autonomic dysreflexia; D50.9 Iron deficiency anemia, unspecified; J20.9 Acute bronchitis, unspecified; G89.4 Chronic pain syndrome; E03.9 Hypothyroidism, unspecified; F10.150 Alcohol abuse with alcohol-induced psychotic disorder with delusions; Z79.899 Other long term (current) drug therapy
CPT/HCPCS: 81025; 93660

== ENCOUNTER 2024-11-24 18:35 | Observation (INO) | payer OTHER ==
--- NOTE | 2024-11-24 19:04 | ED ---
Dizziness HPI - General Chief Complaint: Dizziness Stated Complaint: Syncope Time Seen by Provider: 11/24/24 18:54 Source: patient, family, RN notes reviewed, old records reviewed Mode of arrival: ambulatory Limitations: no limitations - History of Present Illness Initial Comments: This is a 43-year-old female with multiple recent events of near syncope usually during exertional activity position change. History of significant anemia. Also complaining of headache headache is mild with nausea no vomiting, patient has no recent change in medications no chest pain shortness of breath or abdominal pain currently MD Complaint: dizziness, lightheadedness, near syncope -: week(s) Timing: gradual onset Description: lightheadedness, near-syncope History of Same: Yes History of Trauma: No Severity: moderate Improves With: remaining still Worsens With: movement, position, exertion Associated Symptoms: syncope - Related Data Home Medications Medication Instructions Recorded Confirmed DULoxetine HCL [Cymbalta] 60 mg PO DAILY 02/26/20 11/24/24 Cyclobenzaprine [Flexeril] 5 mg PO TID 08/15/21 11/24/24 ARIPiprazole [Abilify] 10 mg PO DAILY 10/28/23 11/24/24 Albuterol Sulfate [Albuterol 2 puff INHALATION RT-Q4H PRN 10/28/23 11/24/24 Sulfate Hfa] Folic Acid 1 mg PO DAILY 10/28/23 11/24/24 Rimegepant Sulfate [Nurtec Odt] 1 tab PO DAILY PRN 10/28/23 11/24/24 Topiramate [Topiramate ER 150 mg PO DAILY 10/28/23 11/24/24 (Sprinkle)] busPIRone HCL 10 mg PO TID 10/28/23 11/24/24 Metoprolol Succinate (ER) [Toprol 100 mg PO DAILY 05/21/24 11/24/24 XL] Pantoprazole [Protonix] 40 mg PO BID 07/31/24 11/24/24 Sucralfate [Carafate] 1 gm PO ACHS 07/31/24 11/24/24 oxyCODONE-APAP 5-325MG [Percocet 1 tab PO BID PRN 07/31/24 11/24/24 5-325 mg] Amitriptyline HCl [Elavil] 100 mg PO HS 11/24/24 11/24/24 Butalb/Asprin/Caff 50-325-40Mg 1 cap PO DAILY PRN 11/24/24 11/24/24 [Fiorinal 50-325-40 MG] Ipratropium-Albuterol Nebulize 3 ml INHALATION RT-QID PRN 11/24/24 11/24/24 [Duoneb 0.5 mg-3 mg/3 ml Soln] buPROPion XL [Wellbutrin XL] 300 mg PO DAILY 11/24/24 11/24/24 Allergies Allergy/AdvReac Type Severity Reaction Status Date / Time adhesive Allergy Rash/Hives Verified 11/05/24 17:49 latex Allergy Rash/Hives Verified 11/05/24 17:49 morphine Allergy Nausea & Verified 11/05/24 17:49 Vomiting prochlorperazine Allergy Nausea & Verified 11/05/24 17:49 [From Compazine] Vomiting ciprofloxacin [From Cipro] AdvReac Hallucinati Verified 11/05/24 17:49 ons citalopram [From Celexa] AdvReac Suicidal Verified 11/05/24 17:49 thoughts diazepam [From Valium] AdvReac Hallucinati Verified 11/05/24 17:49 ons/Anxiety fluoxetine [From Prozac] AdvReac Suicidal Verified 11/05/24 17:49 thoughts metoclopramide [From Reglan] AdvReac Hallucinati Verified 11/05/24 17:49 ons/Anxiety paroxetine [From Paxil] AdvReac Suicidal Verified 11/05/24 17:49 thoughts Penicillins AdvReac Nausea & Verified 11/05/24 17:49 Vomiting Review of Systems ROS Statement: Those systems with pertinent positive or pertinent negative responses have been documented in the HPI. ROS Other: All systems not noted in ROS Statement are negative. Past Medical History Past Medical History: Asthma, COPD, Fibromyalgia, GERD/Reflux, GI Bleed Additional Past Medical History / Comment(s): covid + pneumonia 10/30/2020 complicated by respiratory failure, intubation, mechanical ventilation, bilateral pneumothoraces, Other hx: Primary immunodeficiency, antral ulcers, GI bleed, anemia, IBS, migraines, back pain, TMJ, seasonal allergies, takes metoprolol for heart rate, tends to run low BP, current ulcer has peptic ulcer disease, back pain, taking A/B for resolving UTI History of Any Multi-Drug Resistant Organisms: None Reported Past Surgical History: Uterine Ablation Additional Past Surgical History / Comment(s): EGDs, colonoscopies, bilateral breast augmentation, septoplasty, L ear trauma/reattached. Past Anesthesia/Blood Transfusion Reactions: No Reported Reaction, Motion Sickness Additional Past Anesthesia/Blood Transfusion Reaction / Comment(s): Pt has received blood in past without reaction. Past Psychological History: ADD/ADHD, Anxiety, Bipolar, Depression, PTSD Smoking Status: Former smoker - Past Family History Father Additional Family Medical History / Comment(s): Father at age 51 from accidental drug overdose. Mother Family Medical History: Fibromyalgia Additional Family Medical History / Comment(s): Mother is alive at age 61 with history of primary immunodeficiency. Brother(s) Additional Family Medical History / Comment(s): Patient has one brother with history of alcohol abuse. Patient does not have any sisters. Patient has 2 children with no major medical problems. General Exam Limitations: no limitations General appearance: alert, in no apparent distress Head exam: Present: atraumatic, normocephalic, normal inspection Eye exam: Present: normal appearance, PERRL, EOMI. Absent: scleral icterus, conjunctival injection, periorbital swelling ENT exam: Present: normal exam, mucous membranes moist Neck exam: Present: normal inspection. Absent: tenderness, meningismus, lymphadenopathy Respiratory exam: Present: normal lung sounds bilaterally. Absent: respiratory distress, wheezes, rales, rhonchi, stridor Cardiovascular Exam: Present: regular rate, normal rhythm, normal heart sounds. Absent: systolic murmur, diastolic murmur, rubs, gallop, clicks GI/Abdominal exam: Present: soft, normal bowel sounds. Absent: distended, tenderness, guarding, rebound, rigid Extremities exam: Present: normal inspection, full ROM, normal capillary refill. Absent: tenderness, pedal edema, joint swelling, calf tenderness Back exam: Present: normal inspection Neurological exam: Present: alert, oriented X3, CN II-XII intact Psychiatric exam: Present: normal affect, normal mood Skin exam: Present: warm, dry, intact, normal color. Absent: rash Course Vital Signs 11/24/24 11/24/24 11/24/24 18:45 21:45 22:40 Temperature 98.4 F Pulse Rate 82 70 76 Respiratory 20 18 Rate Blood Pressure 99/65 98/68 O2 Sat by Pulse 92 L 97 Oximetry 11/25/24 00:10 Temperature Pulse Rate 80 Respiratory 18 Rate Blood Pressure 90/57 O2 Sat by Pulse 97 Oximetry - Reevaluation(s) Reevaluation #1: 11/24/24 21:26 Medical records reviewed Reevaluation #2: 11/24/24 21:26 No syncopal event here in the ER No complaints chest pain shortness of breath or abdominal pain Patient does have headaches Reevaluation #3: 11/24/24 21:27 Patient informed of results questions answered prefers observation Reevaluation #4: 11/24/24 21:27 Was pt. sent in by a medical professional or institution ([facility], [facility], urgent care, hospital, or prison...) When possible be specific @ -no Did you speak to anyone other than the patient for history (EMS, parent, family, police, friend...)? What history was obtained from this source @ -no Did you review nursing and triage notes (agree or disagree)? Why? @ -agree Are old charts reviewed (outside hosp., previous admission, EMS record, old EKG, old radiological studies, urgent care reports/EKG's, prison records)? Report findings @ -yes Differential Diagnosis (chest pain, altered mental status, abdominal pain women, abdominal pain men, vaginal bleeding, weakness, fever, dyspnea, syncope, headache, dizziness, GI bleed, back pain, seizure, CVA, palpatations, mental health, musculoskeletal)? @ -prior EKG interpreted by me (3pts min.). @ -yes X-rays interpreted by me (1pt min.). @ -yes negative for acute disease CT interpreted by me (1pt min.). @ -no U/S interpreted by me (1pt. min.). @ -no What testing was considered but not performed or refused? (CT, X-rays, U/S, labs)? Why? @ -none What meds were considered but not given or refused? Why? @ -none Did you discuss the management of the patient with other professionals (professionals i.e. [facility], [facility], lab, RT, psych nurse, social work job titles, felt hat pouncing operator hand, teacher, jail officer, shoe caser)? Give summary @ -no Was smoking cessation discussed for >3mins.? @ -no Was critical care preformed (if so, how long)? @ -no Were there social determinants of health that impacted care today? How? (Homelessness, low income, unemployed, alcoholism, drug addiction, transportation, low edu. Level, literacy, decrease access to med. care, assisted, rehab)? @ -none Was there de-escalation of care discussed even if they declined (Discuss DNR or withdrawal of care, Hospice)? DNR status @ -no What co-morbidities impacted this encounter? (DM, HTN, Smoking, COPD, CAD, Cancer, CVA, ARF, Chemo, Hep., AIDS, mental health diagnosis, sleep apnea, morbid obesity)? @ -none Was patient admitted / discharged? Hospital course, mention meds given and route, prescriptions, significant lab abnormalities, going to OR and other pertinent info. @ - 43 female will admit for syncope near syncope and significant anemia symptomatic anemia need for transfusion Admitted Undiagnosed new problem with uncertain prognosis? @ -no Drug Therapy requiring intensive monitoring for toxicity (Heparin, Nitro, Insulin, Cardizem)? @ -no Were any procedures done? @ -no Diagnosis/symptom? @ -Symptomatic anemia Acute, or Chronic, or Acute on Chronic? @ -Acute Uncomplicated (without systemic symptoms) or Complicated (systemic symptoms)? @ -Complicated Side effects of treatment? @ -no Exacerbation, Progression, or Severe Exacerbation? @ -exacerbation Poses a threat to life or bodily function? How? (Chest pain, USA, LA, pneumonia, PE, COPD, DKA, ARF, appy, cholecystitis, CVA, Diverticulitis, Homicidal, Suicidal, threat to staff... and all critical care pts) @ -yes significant anemia Reevaluation #5: Differential Syncope: Valvular disease, hypertrophic cardiomyopathy, pulmonary embolism, tamponade, tachycardia, bradycardia, LA, hypovolemia, hemorrhage, dissection, anemia, intracranial hemorrhage, seizure, hypoglycemia, carbon monoxide poisoning, this is not meant to be an all-inclusive list. - Consultations Consultation #1: Spoke with [facility] who agrees to admit this patient EKG Findings - EKG Comments: EKG Findings:: EKG is sinus 79 SD 150 QRS 101 QTc 405 - EKG Results: EKG: interpreted by KIERSTEN Medical Decision Making - Medical Decision Making 43 female will admit for syncope near syncope and significant anemia symptomatic anemia need for transfusion - Lab Data Result diagrams: 11/26/24 05:21 11/26/24 05:21 Lab Results 11/24/24 11/24/24 11/24/24 Range/Units 19:09 19:09 19:09 WBC 7.63 (4.50-10.00) 10*3/uL RBC 2.98 L (4.10-5.20) 10*6/uL Hgb 7.1 L (12.0-15.0) g/dL Hct 24.5 L (37.2-46.3) % MCV 82.2 (80.0-97.0) fL MCH 23.8 L (27.0-32.0) pg MCHC 29.0 L (32.0-37.0) g/dL Plt Count 465 H (140-440) 10*3/uL MPV 9.3 L (9.5-12.2) fL Immature Gran % (Auto) 0.4 % Neutrophils % 49.2 % Lymphocytes % 34.7 % Monocytes % 8.8 % Eosinophils % 6.2 % Basophils % 0.7 % Immature Gran # 0.03 (0.00-0.04) 10*3/uL Neutrophils # 3.76 (1.80-7.70) 10*3/uL Lymphocytes # 2.65 (0.90-5.00) 10*3/uL Monocytes # 0.67 (0.20-1.00) 10*3/uL Eosinophils # 0.47 H (0.04-0.35) 10*3/uL Basophils # 0.05 (0.00-0.10) 10*3/uL PT 10.4 (10.0-12.5) sec INR 0.9 (<1.2) APTT 19.4 L (22.0-30.0) sec D-Dimer 0.27 (<0.60) mg/L FEU Sodium 137 (137-145) mmol/L Potassium 3.7 (3.5-5.1) mmol/L Chloride 110 H (98-107) mmol/L Carbon Dioxide 19 L (22-30) mmol/L Anion Gap 8 mmol/L BUN 22 H (7-17) mg/dL Creatinine 0.77 (0.52-1.04) mg/dL Est GFR (CKD-EPI)AfAm >90 (>60 ml/min/1.73 sqM) Est GFR (CKD-EPI)NonAf >90 (>60 ml/min/1.73 sqM) Glucose 93 (74-99) mg/dL Calcium 9.0 (8.4-10.2) mg/dL Magnesium 1.8 (1.6-2.3) mg/dL Total Bilirubin 0.4 (0.2-1.3) mg/dL AST 16 (14-36) U/L ALT 15 (4-34) U/L Alkaline Phosphatase 91 (38-126) U/L Troponin I (0.000-0.034) ng/mL NT-Pro-B Natriuret Pep <20 pg/mL Total Protein 6.5 (6.3-8.2) g/dL Albumin 3.8 (3.5-5.0) g/dL Lipase 76 (23-300) U/L Blood Type Blood Type Recheck Bld Type Recheck Status Antibody Screen Crossmatch Spec Expiration Date 11/24/24 11/24/24 Range/Units 19:09 21:00 WBC (4.50-10.00) 10*3/uL RBC (4.10-5.20) 10*6/uL Hgb (12.0-15.0) g/dL Hct (37.2-46.3) % MCV (80.0-97.0) fL MCH (27.0-32.0) pg MCHC (32.0-37.0) g/dL Plt Count (140-440) 10*3/uL MPV (9.5-12.2) fL Immature Gran % (Auto) % Neutrophils % % Lymphocytes % % Monocytes % % Eosinophils % % Basophils % % Immature Gran # (0.00-0.04) 10*3/uL Neutrophils # (1.80-7.70) 10*3/uL Lymphocytes # (0.90-5.00) 10*3/uL Monocytes # (0.20-1.00) 10*3/uL Eosinophils # (0.04-0.35) 10*3/uL Basophils # (0.00-0.10) 10*3/uL PT (10.0-12.5) sec INR (<1.2) APTT (22.0-30.0) sec D-Dimer (<0.60) mg/L FEU Sodium (137-145) mmol/L Potassium (3.5-5.1) mmol/L Chloride (98-107) mmol/L Carbon Dioxide (22-30) mmol/L Anion Gap mmol/L BUN (7-17) mg/dL Creatinine (0.52-1.04) mg/dL Est GFR (CKD-EPI)AfAm (>60 ml/min/1.73 sqM) Est GFR (CKD-EPI)NonAf (>60 ml/min/1.73 sqM) Glucose (74-99) mg/dL Calcium (8.4-10.2) mg/dL Magnesium (1.6-2.3) mg/dL Total Bilirubin (0.2-1.3) mg/dL AST (14-36) U/L ALT (4-34) U/L Alkaline Phosphatase (38-126) U/L Troponin I <0.012 (0.000-0.034) ng/mL NT-Pro-B Natriuret Pep pg/mL Total Protein (6.3-8.2) g/dL Albumin (3.5-5.0) g/dL Lipase (23-300) U/L Blood Type O Positive Blood Type Recheck O Pos Bld Type Recheck Status No Antibody Screen NEGATIVE Crossmatch See Detail Spec Expiration Date 11/27/2024 1759 - EKG Data -: EKG Interpreted by Ak - Radiology Data Radiology results: report reviewed (Chest x-ray is negative for acute disease), image reviewed Disposition Clinical Impression: Dehydration, Anemia, Asthma with acute exacerbation, Acute exacerbation of chronic obstructive pulmonary disease, Weakness, Acute anemia, Near syncope Disposition: ADMITTED IP TO THIS [facility] Condition: Stable Is patient prescribed a controlled substance at d/c from ED?: No Time of Disposition: 21:00
[2024-11-24 19:22] LABS: Basophils # (A) 0.05 10*3/uL (0.00-0.10); Basophils % (A) 0.7 %; Eosinophils # (A) 0.47 10*3/uL (0.04-0.35); Eosinophils % (A) 6.2 %; HCT 24.5 % (37.2-46.3); HGB 7.1 g/dL (12.0-15.0); Lymphocytes # (A) 2.65 10*3/uL (0.90-5.00); Lymphocytes % (A) 34.7 %; MCH 23.8 pg (27.0-32.0); MCV 82.2 fL (80.0-97.0); Mean Platelet Volume 9.3 fL (9.5-12.2); Monocytes # (A) 0.67 10*3/uL (0.20-1.00); Monocytes % (A) 8.8 %; Neutrophils # (A) 3.76 10*3/uL (1.80-7.70); Neutrophils % (A) 49.2 %; Platelet Count 465 10*3/uL (140-440); RBC 2.98 10*6/uL (4.10-5.20); RDW 17.2 % (11.5-14.5); WBC 7.63 10*3/uL (4.50-10.00)
[2024-11-24] MEDS: SODIUM CHLORIDE 0.9% 1,000 ML IV STA (19:40)
[2024-11-24 19:46] LABS: INR 0.9 (<1.2); Prothrombin Time 10.4 sec (10.0-12.5)
[2024-11-24 19:56] LABS: ALT 15 U/L (4-34); AST 16 U/L (14-36); African American GFR (CKD) >90 (>60 ml/min/1.73 sqM); Albumin 3.8 g/dL (3.5-5.0); Alkaline Phosphatase 91 U/L (38-126); Anion Gap 8 mmol/L; Blood Urea Nitrogen 22 mg/dL (7-17); Carbon Dioxide 19 mmol/L (22-30); Chloride 110 mmol/L (98-107); Glucose 93 mg/dL (74-99); Lipase 76 U/L (23-300); Magnesium 1.8 mg/dL (1.6-2.3); Non-African American GFR(CKD) >90 (>60 ml/min/1.73 sqM); Potassium 3.7 mmol/L (3.5-5.1); Sodium 137 mmol/L (137-145); Total Bilirubin 0.4 mg/dL (0.2-1.3); Total Protein 6.5 g/dL (6.3-8.2)
[2024-11-24 20:03] LABS: NT-Pro-B-Type Natriuretic Pept <20 pg/mL
[2024-11-24 20:06] LABS: Partial Thromboplastin Time 19.4 sec (22.0-30.0)
[2024-11-24] MEDS: HYDROmorphone 1 MG/ML 1 ML SYRINGE IVP STA (20:36)
--- NOTE | 2024-11-24 20:41 | XR ---
EXAMINATION TYPE: XR chest 2V DATE OF EXAM: 11/24/2024 CLINICAL INDICATION: Female, 43 years old with history of sob, TECHNIQUE: Frontal and lateral views of the chest are obtained. COMPARISON: Chest x-ray March 23, 2024 FINDINGS: There is no focal air space opacity, pleural effusion, or pneumothorax seen. The cardiac silhouette size remains within normal limits. The osseous structures are intact. Overlying Bilatera l metallic nipple ornaments are redemonstrated. IMPRESSION: No acute cardiopulmonary process. [facility], , 11/24/2024 8:38 PM
[2024-11-24] MEDS ORDERED: ONDANSETRON 4 MG/2 ML VIAL IVP PRN (21:28)
[2024-11-24] MEDS ORDERED: HYDROmorphone 1 MG/ML 1 ML SYRINGE IVP PRN (21:28)
[2024-11-24] MEDS ORDERED: NALOXONE 0.4 MG/ML 1 ML VIAL IV PRN (21:28)
[2024-11-24] MEDS: IPRATROPIUM-ALBUTEROL 3 ML NEB INHALATION STA (21:44)
[2024-11-24] MEDS: methylPREDNISolone SOD SUCCI 125 MG/2 ML VIAL IV STA (21:46)
[2024-11-24] MEDS: SODIUM CHLORIDE 0.9% 1,000 ML IV SCH (21:46)
[2024-11-24] MEDS: methylPREDNISolone SOD SUCCI 125 MG/2 ML VIAL IV SCH (23:17)
[2024-11-24 23:28] LABS: Influenza A Not Detected (Not Detectd); Influenza B Not Detected (Not Detectd); RSV Not Detected (Not Detectd)
[2024-11-25] MEDS: HYDROmorphone 0.5 MG/0.5 ML SYRINGE IVP PRN ×2 (00:47→14:14)
[2024-11-25 05:22] LABS: ALT 14 U/L (4-34); AST 15 U/L (14-36); African American GFR (CKD) >90 (>60 ml/min/1.73 sqM); Albumin 3.5 g/dL (3.5-5.0); Alkaline Phosphatase 78 U/L (38-126); Anion Gap 11 mmol/L; Blood Urea Nitrogen 18 mg/dL (7-17); Calcium 8.6 mg/dL (8.4-10.2); Carbon Dioxide 17 mmol/L (22-30); Chloride 110 mmol/L (98-107); Glucose 144 mg/dL (74-99); Magnesium 1.9 mg/dL (1.6-2.3); Non-African American GFR(CKD) >90 (>60 ml/min/1.73 sqM); Phosphorus 3.1 mg/dL (2.5-4.5); Sodium 138 mmol/L (137-145); Total Bilirubin 0.3 mg/dL (0.2-1.3); Total Protein 6.1 g/dL (6.3-8.2)
[2024-11-25] MEDS ORDERED: ACETAMINOPHEN TAB 325 MG TAB PO PRN ×2 (07:50→10:51)
[2024-11-25] MEDS: IPRATROPIUM-ALBUTEROL 3 ML NEB INHALATION PRN (08:09)
[2024-11-25 08:17] LABS: Basophils # (A) 0.01 10*3/uL (0.00-0.10); Basophils % (A) 0.2 %; HCT 26.8 % (37.2-46.3); HGB 7.7 g/dL (12.0-15.0); Lymphocytes % (A) 12.9 %; MCH 24.1 pg (27.0-32.0); MCHC 28.7 g/dL (32.0-37.0); Mean Platelet Volume 9.1 fL (9.5-12.2); Monocytes # (A) 0.24 10*3/uL (0.20-1.00); Monocytes % (A) 3.9 %; Neutrophils # (A) 5.14 10*3/uL (1.80-7.70); Neutrophils % (A) 82.5 %; Platelet Count 388 10*3/uL (140-440); RBC 3.19 10*6/uL (4.10-5.20); RDW 17.6 % (11.5-14.5); WBC 6.22 10*3/uL (4.50-10.00)
[2024-11-25] MEDS: ACETAMINOPHEN TAB 325 MG TAB PO STA (08:17)
[2024-11-25] MEDS ORDERED: ALBUTEROL NEBULIZED 2.5 MG/3 ML INHALATION PRN (10:46)
[2024-11-25] MEDS ORDERED: NON FORMULARY DRUG (Rimegepant Sulfate [Nurtec Odt] 75 MG Tablet) PO PRN (10:46)
[2024-11-25] MEDS ORDERED: oxyCODONE-APAP 5-325MG 1 EACH TAB PO PRN (10:46)
[2024-11-25] MEDS ORDERED: BUTALB/APAP/CAFF 50-325-40MG TAB PO PRN (10:51)
[2024-11-25] MEDS: FOLIC ACID 1 MG TAB PO SCH (11:23)
[2024-11-25] MEDS: PANTOPRAZOLE 40 MG TABLET PO SCH (11:24)
[2024-11-25] MEDS: DULoxetine HCL 60 MG CAPSULE.DR PO SCH (11:24)
[2024-11-25] MEDS: TOPIRAMATE 100 MG TAB PO SCH (11:24)
[2024-11-25] MEDS: SUCRALFATE 1 GM TAB PO SCH (11:24)
[2024-11-25] MEDS: ARIPiprazole 10 MG TAB PO SCH (11:24)
[2024-11-25] MEDS: CYCLOBENZAPRINE 5 MG TAB PO SCH (11:24)
[2024-11-25] MEDS: busPIRone HCl 10 MG TAB PO SCH (11:24)
[2024-11-25] MEDS: buPROPion XL 300 MG TAB.ER.24H PO SCH (11:24)
[2024-11-25] MEDS: METOPROLOL SUCCINATE (ER) 100 MG TAB.ER.24H PO SCH (11:24)
--- NOTE | 2024-11-25 14:35 | P.HPIM ---
History of Present Illness H&P Date: 11/25/24 History of present illness; Patient is a 43-year-old female with iron deficiency anemia, chronic pain syndrome and migraines who presents for dizziness. She stated she had syncopal episodes 6 times in the last month, last being 2 days ago. She follows with Dr Anay Ndiaye and states she was diagnosed with iron deficiency anemia since 2008. She has periodic iron infusion. She states she cannot take regular iron tablets due to gastric ulcer. Symptoms of intermittent weakness, palpitations, shortness of breath when ambulating, leg cramping. She denies any GI blood loss or any other increased bleeding. At this time she is denying chest pain, palpitations, shortness of breath, abdominal pain, dysuria. Spoke with the ER physician, patient admission was accepted by internal medicine service for treatment. REVIEW OF SYSTEMS: Pertinent positives and negatives noted in HPI. PHYSICAL EXAMINATION: Vitals reviewed GENERAL: Resting comfortably in bed. EYES: PERRL, no scleral injection or icterus. No vision loss HENT: Normocephalic, atraumatic, hearing grossly intact, moist mucous membranes NECK: No tracheal deviation, full range of motion. CARDIOVASCULAR: S1 and S2 present. No murmurs, rubs, or gallops. PULMONARY: Chest is clear to auscultation, no wheezing, rhonchi, or crackles. ABDOMEN: Soft, nontender, nondistended. No palpable organomegaly. MUSCULOSKELETAL: No apparent joint swelling and deformities. EXTREMITIES: No apparent cyanosis, clubbing. No pedal edema. NEUROLOGICAL: Alert and oriented. Gross neurological examination with no apparent focal deficits. SKIN: No apparent rashes. ER FINDINGS: Labs significant for hemoglobin 7.1, MCV 82, platelets 465, APTT 19.4, D-dimer 0.27, chloride 110, bicarb 19, BUN 22, troponin negative, proBNP negative, lipase 76, viral respiratory panel negative EKG independently interpreted showed sinus rhythm heart rate of 79, QTc 4 5, no ST segment elevation or depression seen, no T-wave inversions seen. Chest x-ray done independently interpreted showed no acute cardiopulmonary process. Assessment and Plan: In summary, patient is a 43-year-old female with iron deficiency anemia, chronic pain syndrome and migraines who presents for dizziness. # Chronic iron deficiency anemia #Syncope and dizziness -hemoglobin 7.1, MCV 82, platelets 465 -pRBC 1 unit transfused, second ordered Iron panel and ferritin ordered Begin Ferrlecit 125 mg daily Orthostatics ordered - Monitor CBC Hematology consulted #Chronic pain syndrome #Migraine Dilaudid 0.5 mg every 4 hours as needed for pain Fioricet 50-325-40 every 4 hours as needed Resume home medications Chronic Medical Conditions ADHD, anxiety, bipolar, depression, PTSD, fibromyalgia, COPD, GERD Resume home medications DVT ppx: Subq heparin 5000 units twice daily Code status: Full code F: IV Normal saline 75 mL/hr E: Replete as needed N: Regular diet A: Ambulatory Anticipated discharge place: Home Anticipated discharge time: 1 to 2 days Dictation was produced using [employer] dictation software. Please excuse any grammatical, word or spelling errors. Past Medical History Past Medical History: Asthma, COPD, Fibromyalgia, GERD/Reflux, GI Bleed Additional Past Medical History / Comment(s): covid + pneumonia 10/30/2020 complicated by respiratory failure, intubation, mechanical ventilation, bilateral pneumothoraces, Other hx: Primary immunodeficiency, antral ulcers, GI bleed, anemia, IBS, migraines, back pain, TMJ, seasonal allergies, takes metoprolol for heart rate, tends to run low BP, current ulcer has peptic ulcer disease, back pain, taking A/B for resolving UTI History of Any Multi-Drug Resistant Organisms: None Reported Past Surgical History: Uterine Ablation Additional Past Surgical History / Comment(s): EGDs, colonoscopies, bilateral breast augmentation, septoplasty, L ear trauma/reattached. Past Anesthesia/Blood Transfusion Reactions: No Reported Reaction, Motion Sickness Additional Past Anesthesia/Blood Transfusion Reaction / Comment(s): Pt has received blood in past without reaction. Smoking Status: Never smoker - Past Family History Father Additional Family Medical History / Comment(s): Father at age 51 from accidental drug overdose. Mother Family Medical History: Fibromyalgia Additional Family Medical History / Comment(s): Mother is alive at age 61 with history of primary immunodeficiency. Brother(s) Additional Family Medical History / Comment(s): Patient has one brother with history of alcohol abuse. Patient does not have any sisters. Patient has 2 children with no major medical problems. Medications and Allergies Home Medications Medication Instructions Recorded Confirmed Type DULoxetine HCL [Cymbalta] 60 mg PO DAILY 02/26/20 11/24/24 History Cyclobenzaprine [Flexeril] 5 mg PO TID 08/15/21 11/24/24 History ARIPiprazole [Abilify] 10 mg PO DAILY 10/28/23 11/24/24 History Albuterol Sulfate [Albuterol 2 puff INHALATION RT-Q4H PRN 10/28/23 11/24/24 History Sulfate Hfa] Folic Acid 1 mg PO DAILY 10/28/23 11/24/24 History Rimegepant Sulfate [Nurtec Odt] 1 tab PO DAILY PRN 10/28/23 11/24/24 History Topiramate [Topiramate ER 150 mg PO DAILY 10/28/23 11/24/24 History (Sprinkle)] busPIRone HCL 10 mg PO TID 10/28/23 11/24/24 History Metoprolol Succinate (ER) [Toprol 100 mg PO DAILY 05/21/24 11/24/24 History Xl] Pantoprazole [Protonix] 40 mg PO BID 07/31/24 11/24/24 History Sucralfate [Carafate] 1 gm PO ACHS 07/31/24 11/24/24 History oxyCODONE-APAP 5-325MG [Percocet 1 tab PO BID PRN 07/31/24 11/24/24 History 5-325 mg] Amitriptyline HCl [Elavil] 100 mg PO HS 11/24/24 11/24/24 History Butalb/Asprin/Caff 50-325-40Mg 1 cap PO DAILY PRN 11/24/24 11/24/24 History [Fiorinal 50-325-40 MG] Ipratropium-Albuterol Nebulize 3 ml INHALATION RT-QID PRN 11/24/24 11/24/24 History [Duoneb 0.5 mg-3 mg/3 ml Soln] buPROPion XL [Wellbutrin XL] 300 mg PO DAILY 11/24/24 11/24/24 History Allergies Allergy/AdvReac Type Severity Reaction Status Date / Time adhesive Allergy Rash/Hives Verified 11/05/24 17:49 latex Allergy Rash/Hives Verified 11/05/24 17:49 morphine Allergy Nausea & Verified 11/05/24 17:49 Vomiting prochlorperazine Allergy Nausea & Verified 11/05/24 17:49 [From Compazine] Vomiting ciprofloxacin [From Cipro] AdvReac Hallucinati Verified 11/05/24 17:49 ons citalopram [From Celexa] AdvReac Suicidal Verified 11/05/24 17:49 thoughts diazepam [From Valium] AdvReac Hallucinati Verified 11/05/24 17:49 ons/Anxiety fluoxetine [From Prozac] AdvReac Suicidal Verified 11/05/24 17:49 thoughts metoclopramide [From Reglan] AdvReac Hallucinati Verified 11/05/24 17:49 ons/Anxiety paroxetine [From Paxil] AdvReac Suicidal Verified 11/05/24 17:49 thoughts Penicillins AdvReac Nausea & Verified 11/05/24 17:49 Vomiting Physical Exam Vitals: Vital Signs Temp Pulse Pulse Resp BP BP Pulse Ox 11/25/24 08:21 84 11/25/24 08:09 88 11/25/24 07:00 97.3 F L 93 16 106/62 98 11/25/24 04:38 97.8 F 84 16 95/61 11/25/24 03:30 98.4 F 84 12 96/54 11/25/24 02:30 97.4 F L 80 14 95/59 11/25/24 02:01 97.9 F 88 14 98/56 11/25/24 01:32 98.6 F 86 20 93/58 11/25/24 01:12 97.4 F L 86 18 101/60 11/25/24 00:59 97.6 F 76 18 92/54 11/25/24 00:47 97.5 F L 78 18 91/50 97 11/25/24 00:10 80 18 90/57 97 11/24/24 22:40 76 18 98/68 97 11/24/24 21:45 70 11/24/24 18:45 98.4 F 82 20 99/65 92 L Intake and Output 11/24/24 11/25/24 11/25/24 22:59 06:59 14:59 Intake Total 285 Balance 285 Intake: Blood Product 285 Rc Pheresis 2 As3 Unit 285 [id number] Other: # Voids 1 1 Weight 66.678 kg 66.678 kg Results CBC & Chem 7: 11/25/24 08:01 11/25/24 04:14 Labs: Abnormal Lab Results - Last 24 Hours (Table) 11/24/24 11/24/24 11/24/24 Range/Units 19:09 19:09 19:09 RBC 2.98 L (4.10-5.20) 10*6/uL Hgb 7.1 L (12.0-15.0) g/dL Hct 24.5 L (37.2-46.3) % MCH 23.8 L (27.0-32.0) pg MCHC 29.0 L (32.0-37.0) g/dL RDW (11.5-14.5) % Plt Count 465 H (140-440) 10*3/uL MPV 9.3 L (9.5-12.2) fL Lymphocytes # (0.90-5.00) 10*3/uL Eosinophils # 0.47 H (0.04-0.35) 10*3/uL APTT 19.4 L (22.0-30.0) sec Chloride 110 H (98-107) mmol/L Carbon Dioxide 19 L (22-30) mmol/L BUN 22 H (7-17) mg/dL Glucose (74-99) mg/dL Total Protein (6.3-8.2) g/dL Crossmatch 11/24/24 11/25/24 11/25/24 Range/Units 21:00 04:14 08:01 RBC 3.19 L (4.10-5.20) 10*6/uL Hgb 7.7 L (12.0-15.0) g/dL Hct 26.8 L (37.2-46.3) % MCH 24.1 L (27.0-32.0) pg MCHC 28.7 L (32.0-37.0) g/dL RDW 17.6 H (11.5-14.5) % Plt Count (140-440) 10*3/uL MPV 9.1 L (9.5-12.2) fL Lymphocytes # 0.80 L (0.90-5.00) 10*3/uL Eosinophils # 0.00 L (0.04-0.35) 10*3/uL APTT (22.0-30.0) sec Chloride 110 H (98-107) mmol/L Carbon Dioxide 17 L (22-30) mmol/L BUN 18 H (7-17) mg/dL Glucose 144 H (74-99) mg/dL Total Protein 6.1 L (6.3-8.2) g/dL Crossmatch See Detail Thrombosis Risk Factor Assmnt - Choose All That Apply Any of the Below Risk Factors Present?: No Other Risk Factors: No Other congenital or acquired thrombophilia - If yes, enter type in comment: No Thrombosis Risk Factor Assessment Level: Very Low Risk
[2024-11-25] MEDS: SODIUM FERRIC GLUCONAT-SUCROSE 125 MG in SODIUM CHLORIDE 0.9% 100 ML IVPB SCH (14:52)
[2024-11-25 15:39] LABS: % Iron Saturation 8.03 (12.00-45.00); Ferritin 6.1 ng/mL (10.0-291.0)
[2024-11-25] MEDS: METOCLOPRAMIDE 5 MG/ML 2 ML VIAL IVP STA (17:02)
[2024-11-25] MEDS: KETOROLAC 15 MG/ML 1 ML VIAL IVP STA (17:20)
[2024-11-25] MEDS: diphenhydrAMINE 50 MG/ML 1 ML VIAL IVP STA (17:21)
[2024-11-25 18:04] VITALS: BMI 26.0
[2024-11-25] MEDS: AMITRIPTYLINE HCL 50 MG TAB PO SCH (21:10)
[2024-11-25] MEDS: HEPARIN SODIUM,PORCINE 5,000 UNIT/ML 1 ML VIAL SQ SCH (23:26)
[2024-11-26 08:21] LABS: BUN/Creat Ratio 16.57 Ratio (12.00-20.00); Blood Urea Nitrogen 11.6 mg/dL (9.0-27.0); Calcium 8.5 mg/dL (8.7-10.3); Carbon Dioxide 17.8 mmol/L (21.6-31.8); Chloride 112 mmol/L (96-109); Glucose 161 mg/dL (70-110); Potassium 3.9 mmol/L (3.5-5.5); Sodium 142 mmol/L (135-145)
[2024-11-26 08:25] LABS: Basophils # (A) 0.01 X 10*3/uL (0.00-0.10); Basophils % (A) 0.1 %; Eosinophils # (A) 0 X 10*3/uL (0.04-0.35); Eosinophils % (A) 0 %; HCT 30.7 % (37.2-46.3); HGB 8.9 g/dL (12.0-15.0); Lymphocytes # (A) 0.67 X 10*3/uL (0.90-5.00); Lymphocytes % (A) 6.6 %; MCH 24.4 pg (27.0-32.0); MCV 84.1 FL (80.0-97.0); Mean Platelet Volume 9.8 FL (9.5-12.2); Monocytes # (A) 0.16 X 10*3/uL (0.20-1.00); Monocytes % (A) 1.6 %; NRBC Per 100 WBC 0 X 10*3/uL (0.00-0.01); Neutrophils # (A) 9.19 X 10*3/uL (1.80-7.70); Neutrophils % (A) 90.5 %; Platelet Count 404 X 10*3/uL (140-440); RBC 3.65 X 10*6/uL (4.10-5.20); RDW 17.8 % (11.5-14.5); WBC 10.15 X 10*3/uL (4.50-10.00)
[2024-11-26] MEDS: IPRATROPIUM-ALBUTEROL 3 ML NEB INHALATION PRN (08:55)
[2024-11-26 14:25] VITALS: BP 113/81; PULSE 93; RESP 15; TEMP 98
--- NOTE | 2024-11-26 18:25 | P.DS ---
Providers Date of admission: 11/24/24 21:29 Expected date of discharge: 11/26/24 Attending physician: Reji Lares Consults: 11/25/24 14:00 Consult Physician Routine Consulting Provider: Mark Núñez Consult Reason/Comments: chonic SUJATHA Do you want consulting provider notified?: Yes Primary care physician: Patricia [facility] Course: Discharge diagnoses; # Chronic iron deficiency anemia #Syncope and dizziness #Chronic pain syndrome #Migraine #Reactive Leukocytosis Chronic Medical Conditions: ADHD, anxiety, bipolar, depression, PTSD, fibromyalgia, COPD, GERD Hospital course; History of present illness; Patient is a 43-year-old female with iron deficiency anemia, chronic pain syndrome and migraines who presents for dizziness. She stated she had syncopal episodes 6 times in the last month, last being 2 days ago. She follows with Dr Anay Ndiaye and states she was diagnosed with iron deficiency anemia since 2008. She has periodic iron infusion. She states she cannot take regular iron tablets due to gastric ulcer. Symptoms of intermittent weakness, palpitations, shortness of breath when ambulating, leg cramping. She denies any GI blood loss or any other increased bleeding. At this time she is denying chest pain, palpitations, shortness of breath, abdominal pain, dysuria. During admission patient treated for chronic iron deficiency anemia. She was given 2 units of packed red blood cells. Also started on Ferrlecit. During her stay she was also treated for chronic migraine. And is discharged home in stable. She is to follow-up with her PCP and hematology. Complete CBC in 1 week to monitor hemoglobin and reactive leukocytosis. PHYSICAL EXAMINATION: Vitals reviewed GENERAL: Resting comfortably in bed. EYES: PERRL, no scleral injection or icterus. No vision loss HENT: Normocephalic, atraumatic, hearing grossly intact, moist mucous membranes NECK: No tracheal deviation, full range of motion. CARDIOVASCULAR: S1 and S2 present. No murmurs, rubs, or gallops. PULMONARY: Chest is clear to auscultation, no wheezing, rhonchi, or crackles. ABDOMEN: Soft, nontender, nondistended. No palpable organomegaly. MUSCULOSKELETAL: No apparent joint swelling and deformities. EXTREMITIES: No apparent cyanosis, clubbing. No pedal edema. NEUROLOGICAL: Alert and oriented. Gross neurological examination with no apparent focal deficits. SKIN: No apparent rashes. Dictation was produced using [employer] dictation software. please excuse any grammatical, word or spelling errors. Patient Condition at Discharge: Stable Plan - Discharge Summary Discharge Rx Participant: No New Discharge Prescriptions: Continue DULoxetine HCL [Cymbalta] 60 mg PO DAILY Cyclobenzaprine [Flexeril] 5 mg PO TID Albuterol Sulfate [Albuterol Sulfate Hfa] 2 puff INHALATION RT-Q4H PRN PRN Reason: Shortness Of Breath busPIRone HCL 10 mg PO TID Topiramate [Topiramate ER (Sprinkle)] 150 mg PO DAILY ARIPiprazole [Abilify] 10 mg PO DAILY Pantoprazole [Protonix] 40 mg PO BID buPROPion XL [Wellbutrin XL] 300 mg PO DAILY Amitriptyline HCl [Elavil] 100 mg PO HS Ipratropium-Albuterol Nebulize [Duoneb 0.5 mg-3 mg/3 ml Soln] 3 ml INHALATION RT-QID PRN PRN Reason: Shortness Of Breath Rimegepant Sulfate [Nurtec Odt] 1 tab PO DAILY PRN PRN Reason: Migraine Headache Folic Acid 1 mg PO DAILY Metoprolol Succinate (ER) [Toprol XL] 100 mg PO DAILY Sucralfate [Carafate] 1 gm PO ACHS oxyCODONE-APAP 5-325MG [Percocet 5-325 mg] 1 tab PO BID PRN PRN Reason: Pain Butalb/Asprin/Caff 50-325-40Mg [Fiorinal 50-325-40 MG] 1 cap PO DAILY PRN PRN Reason: Migraine Headache Discharge Medication List DULoxetine HCL [Cymbalta] 60 mg PO DAILY 02/26/20 [History] Cyclobenzaprine [Flexeril] 5 mg PO TID 08/15/21 [History] ARIPiprazole [Abilify] 10 mg PO DAILY 10/28/23 [History] Albuterol Sulfate [Albuterol Sulfate Hfa] 2 puff INHALATION RT-Q4H PRN 10/28/23 [History] Folic Acid 1 mg PO DAILY 10/28/23 [History] Rimegepant Sulfate [Nurtec Odt] 1 tab PO DAILY PRN 10/28/23 [History] Topiramate [Topiramate ER (Sprinkle)] 150 mg PO DAILY 10/28/23 [History] busPIRone HCL 10 mg PO TID 10/28/23 [History] Metoprolol Succinate (ER) [Toprol XL] 100 mg PO DAILY 05/21/24 [History] Pantoprazole [Protonix] 40 mg PO BID 07/31/24 [History] Sucralfate [Carafate] 1 gm PO ACHS 07/31/24 [History] oxyCODONE-APAP 5-325MG [Percocet 5-325 mg] 1 tab PO BID PRN 07/31/24 [History] Amitriptyline HCl [Elavil] 100 mg PO HS 11/24/24 [History] Butalb/Asprin/Caff 50-325-40Mg [Fiorinal 50-325-40 MG] 1 cap PO DAILY PRN 11/24/24 [History] Ipratropium-Albuterol Nebulize [Duoneb 0.5 mg-3 mg/3 ml Soln] 3 ml INHALATION RT-QID PRN 11/24/24 [History] buPROPion XL [Wellbutrin XL] 300 mg PO DAILY 11/24/24 [History] Follow up Appointment(s)/Referral(s): Patricia Gonzalez MD [Primary Care Provider] - 12/02/24 2:30 pm (appointment with Ketty RIVERA. You must take discharge paperwork and medication list to appointment with you. ) Konrad Cueva MD [STAFF PHYSICIAN] - 02/02/25 4:30 pm () Ambulatory/Diagnostic Orders: Complete Blood Count w/diff [LAB.AMB] Location: None Selected Patient Instructions/Handouts: COPD (Chronic Obstructive Pulmonary Disease) (DC), Anemia (DC) Discharge Disposition: HOME SELF-CARE
--- NOTE | 2024-11-26 23:26 | P.CONS ---
History of Present Illness - Reason for Consult Consult date: 11/26/24 SUJATHA Requesting physician: Armando Pelaez - Chief Complaint dizziness, syncopy - History of Present Illness Mrs. Hatfield is a 43-year-old female patient who has been seen by Dr. Cueva in the past for iron deficient anemia, diagnosed initially around 2019. Patient has had gastro intestinal workup, most recently in April 2023. She has a history of peptic ulcer disease. She is currently admitted for near syncope. Patient has had similar episodes before, does not correlate with her degree of anemia though, which is interesting. Hemoglobin 8.9, iron saturation 8.03%, ferritin 6.1. She states that it has been quite sometime since she has been assessed in the hematology office or had iron infusions. Patient denies any fevers, night sweats, dysphagia, abdominal pain, recent nausea or vomiting, she had ablation about 6 years ago and has not had menses since. Review of Systems 10 point review of systems is negative except as stated in HPI Past Medical History Past Medical History: Asthma, COPD, Fibromyalgia, GERD/Reflux, GI Bleed Additional Past Medical History / Comment(s): covid + pneumonia 10/30/2020 complicated by respiratory failure, intubation, mechanical ventilation, bilateral pneumothoraces, Other hx: Primary immunodeficiency, antral ulcers, GI bleed, anemia, IBS, migraines, back pain, TMJ, seasonal allergies, takes metoprolol for heart rate, tends to run low BP, current ulcer has peptic ulcer disease, back pain, taking A/B for resolving UTI History of Any Multi-Drug Resistant Organisms: None Reported Past Surgical History: Uterine Ablation Additional Past Surgical History / Comment(s): EGDs, colonoscopies, bilateral breast augmentation, septoplasty, L ear trauma/reattached. Past Anesthesia/Blood Transfusion Reactions: No Reported Reaction, Motion Sickness Additional Past Anesthesia/Blood Transfusion Reaction / Comm: Pt has received blood in past without reaction. Smoking Status: Never smoker - Past Family History Father Additional Family Medical History / Comment(s): Father at age 51 from accidental drug overdose. Mother Family Medical History: Fibromyalgia Additional Family Medical History / Comment(s): Mother is alive at age 61 with history of primary immunodeficiency. Brother(s) Additional Family Medical History / Comment(s): Patient has one brother with history of alcohol abuse. Patient does not have any sisters. Patient has 2 children with no major medical problems. Medications and Allergies Home Medications Medication Instructions Recorded Confirmed Type DULoxetine HCL [Cymbalta] 60 mg PO DAILY 02/26/20 11/24/24 History Cyclobenzaprine [Flexeril] 5 mg PO TID 08/15/21 11/24/24 History ARIPiprazole [Abilify] 10 mg PO DAILY 10/28/23 11/24/24 History Albuterol Sulfate [Albuterol 2 puff INHALATION RT-Q4H PRN 10/28/23 11/24/24 History Sulfate Hfa] Folic Acid 1 mg PO DAILY 10/28/23 11/24/24 History Rimegepant Sulfate [Nurtec Odt] 1 tab PO DAILY PRN 10/28/23 11/24/24 History Topiramate [Topiramate ER 150 mg PO DAILY 10/28/23 11/24/24 History (Sprinkle)] busPIRone HCL 10 mg PO TID 10/28/23 11/24/24 History Metoprolol Succinate (ER) [Toprol 100 mg PO DAILY 05/21/24 11/24/24 History XL] Pantoprazole [Protonix] 40 mg PO BID 07/31/24 11/24/24 History Sucralfate [Carafate] 1 gm PO ACHS 07/31/24 11/24/24 History oxyCODONE-APAP 5-325MG [Percocet 1 tab PO BID PRN 07/31/24 11/24/24 History 5-325 mg] Amitriptyline HCl [Elavil] 100 mg PO HS 11/24/24 11/24/24 History Butalb/Asprin/Caff 50-325-40Mg 1 cap PO DAILY PRN 11/24/24 11/24/24 History [Fiorinal 50-325-40 MG] Ipratropium-Albuterol Nebulize 3 ml INHALATION RT-QID PRN 11/24/24 11/24/24 History [Duoneb 0.5 mg-3 mg/3 ml Soln] buPROPion XL [Wellbutrin XL] 300 mg PO DAILY 11/24/24 11/24/24 History Allergies Allergy/AdvReac Type Severity Reaction Status Date / Time adhesive Allergy Rash/Hives Verified 11/05/24 17:49 latex Allergy Rash/Hives Verified 11/05/24 17:49 morphine Allergy Nausea & Verified 11/05/24 17:49 Vomiting prochlorperazine Allergy Nausea & Verified 11/05/24 17:49 [From Compazine] Vomiting ciprofloxacin [From Cipro] AdvReac Hallucinati Verified 11/05/24 17:49 ons citalopram [From Celexa] AdvReac Suicidal Verified 11/05/24 17:49 thoughts diazepam [From Valium] AdvReac Hallucinati Verified 11/05/24 17:49 ons/Anxiety fluoxetine [From Prozac] AdvReac Suicidal Verified 11/05/24 17:49 thoughts metoclopramide [From Reglan] AdvReac Hallucinati Verified 11/05/24 17:49 ons/Anxiety paroxetine [From Paxil] AdvReac Suicidal Verified 11/05/24 17:49 thoughts Penicillins AdvReac Nausea & Verified 11/05/24 17:49 Vomiting Physical Exam Vitals: Vital Signs Temp Pulse Pulse Resp BP BP Pulse Ox 11/26/24 09:03 90 11/26/24 08:55 90 98 11/26/24 08:05 97.9 F 90 16 109/69 97 11/26/24 00:59 97.8 F 82 16 118/87 98 11/25/24 19:59 97.8 F 88 12 116/76 98 11/25/24 19:07 98.2 F 87 16 101/68 98 11/25/24 17:29 98 F 94 18 99/62 98 11/25/24 17:09 98.4 F 94 18 105/67 98 11/25/24 16:59 98.2 F 93 18 95/61 11/25/24 13:32 97.6 F 99 18 109/73 100 Intake and Output 11/25/24 11/26/24 11/26/24 22:59 06:59 14:59 Intake Total 1090 1080 Balance 1090 1080 Intake: Oral 1080 Blood Product 1090 Rc As-1 Unit 310 [id number] Other: # Voids 3 1 Weight 66.678 kg - Constitutional General appearance: average body habitus, cooperative, no acute distress - EENT Eyes: anicteric sclerae, EOMI ENT: hearing grossly normal - Neck Neck: no lymphadenopathy - Respiratory Respiratory: bilateral: CTA - Cardiovascular Rhythm: regular Heart sounds: normal: S1, S2 Abnormal Heart Sounds: no systolic murmur, no diastolic murmur, no rub, no S3 Gallop, no S4 Gallop, no click, no other leg Peripheral Edema: bilateral: None - Gastrointestinal General gastrointestinal: no absent bowel sounds, no decreased bowel sounds, no distended, no hepatomegaly, no hyperactive bowel sounds, normal bowel sounds, no organomegaly, no rigid, no scaphoid, soft, no splenomegaly, no tenderness, no umbilical hernia, no ventral hernia - Integumentary Integumentary: normal - Neurologic Neurologic: CNII-XII intact - Musculoskeletal Musculoskeletal: strength equal bilaterally - Psychiatric Psychiatric: A&O x's 3, appropriate affect, intact judgment & insight Results CBC & Chem 7: 11/26/24 05:21 11/26/24 05:21 Labs: Abnormal Lab Results - Last 24 Hours (Table) 11/24/24 11/25/24 11/26/24 Range/Units 21:00 04:14 05:21 WBC 10.15 H (4.50-10.00) X 10*3/uL RBC 3.65 L (4.10-5.20) X 10*6/uL Hgb 8.9 L (12.0-15.0) g/dL Hct 30.7 L (37.2-46.3) % MCH 24.4 L (27.0-32.0) pg MCHC 29.0 L (32.0-37.0) g/dL RDW 17.8 H (11.5-14.5) % Immature Gran # 0.12 H (0.00-0.04) X 10*3/uL Neutrophils # 9.19 H (1.80-7.70) X 10*3/uL Lymphocytes # 0.67 L (0.90-5.00) X 10*3/uL Monocytes # 0.16 L (0.20-1.00) X 10*3/uL Eosinophils # 0 L (0.04-0.35) X 10*3/uL Chloride (96-109) mmol/L Carbon Dioxide (21.6-31.8) mmol/L Anion Gap (4.00-12.00) mmol/L Glucose (70-110) mg/dL Calcium (8.7-10.3) mg/dL Iron 31 L (50-170) UG/DL % Saturation 8.03 L (12.00-45.00) Ferritin 6.1 L (10.0-291.0) ng/mL Crossmatch See Detail 11/26/24 Range/Units 05:21 WBC (4.50-10.00) X 10*3/uL RBC (4.10-5.20) X 10*6/uL Hgb (12.0-15.0) g/dL Hct (37.2-46.3) % MCH (27.0-32.0) pg MCHC (32.0-37.0) g/dL RDW (11.5-14.5) % Immature Gran # (0.00-0.04) X 10*3/uL Neutrophils # (1.80-7.70) X 10*3/uL Lymphocytes # (0.90-5.00) X 10*3/uL Monocytes # (0.20-1.00) X 10*3/uL Eosinophils # (0.04-0.35) X 10*3/uL Chloride 112 H (96-109) mmol/L Carbon Dioxide 17.8 L (21.6-31.8) mmol/L Anion Gap 12.20 H (4.00-12.00) mmol/L Glucose 161 H (70-110) mg/dL Calcium 8.5 L (8.7-10.3) mg/dL Iron (50-170) UG/DL % Saturation (12.00-45.00) Ferritin (10.0-291.0) ng/mL Crossmatch Chest x-ray: report reviewed Assessment and Plan (1) Chronic anemia Status: Chronic Priority: Medium Code(s): D64.9 - ANEMIA, UNSPECIFIED SNOMED Code(s): 720918632 Plan: Chronic iron deficiency anemia - Patient has followed with Hematology in the past, it has been sometime since she has been to the office. She reports that she has not received iron in quite some time. - Patient has a history of peptic ulcer disease. Since she has not had menses in over 6 years she may need additional workup as her iron deficiency is persistent and slightly progressive at this time. - Patient did receive IV iron since inpatient, hemoglobin 7.1 on admit, hemoglobin 8.9 today. She will need additional IV iron, this will be scheduled outpt Doctor attests: I performed a history and physical examination of this patient, developed impression and plan of care. Discussed with dictator. I agree with dictators note, documented as a scribe.
== END 2024-11-26 15:05 | disposition home or self-care (01) ==
LOC: EC 18:35 → 6NMEDSUR 21:29 → 5NMEDONC 22:22
PROVIDERS: ADMIT Hospitalist; ATTEND Hospitalist
DX: D50.9 Iron deficiency anemia, unspecified (principal); E86.0 Dehydration; G43.909 Migraine, unspecified, not intractable, without status migrainosus; G89.4 Chronic pain syndrome; J44.1 Chronic obstructive pulmonary disease with (acute) exacerbation; J45.901 Unspecified asthma with (acute) exacerbation; K21.9 Gastro-esophageal reflux disease without esophagitis; M79.7 Fibromyalgia; D72.829 Elevated white blood cell count, unspecified; F31.9 Bipolar disorder, unspecified; F90.9 Attention-deficit hyperactivity disorder, unspecified type; F43.10 Post-traumatic stress disorder, unspecified; F41.9 Anxiety disorder, unspecified; Z79.899 Other long term (current) drug therapy; Z88.1 Allergy status to other antibiotic agents; Z91.040 Latex allergy status; Z88.5 Allergy status to narcotic agent; Z88.0 Allergy status to penicillin; Z88.8 Allergy status to other drugs, medicaments and biological substances; Z91.048 Other nonmedicinal substance allergy status; Z87.11 Personal history of peptic ulcer disease; Z87.891 Personal history of nicotine dependence
CPT/HCPCS: 96376 ×2; 36430; 96361 ×3; 96365; 96366; 96372; 96375 ×2; 99285; 36415; 94640; 94760; 93005; 86900; 86901; 85379; 83880; 80053 ×2; 80048; 82728; 83540; 83550; 83690; 83735 ×2; 84100; 84484; 85025 ×3; 85610; 85730; 86850; 86920; 87636; 71046; G0378 ×4; P9016; J1200; J1644; J2916 ×2; J1171 ×3; J1885; J2919 ×3

== ENCOUNTER → 2024-12-11 | Outpatient (CLI) | payer OTHER ==
[2024-12-11 13:37] VITALS: BP 102/74; PULSE 82; RESP 16; TEMP 97.7
--- NOTE | 2024-12-11 14:21 | P.SLEEP ---
History of Present Illness DATE: 12/11/2024 CONSULTATION/NEW PATIENT EVALUATION HISTORY OF PRESENT ILLNESS/SLEEP-WAKE EVALUATION: 43-year-old lady had been e valuated in the sleep center for possible obstructive sleep apnea hypopnea syndrome. SLEEP SCHEDULE: Usually sleep schedule 122 AM until 79 AM. FALLING ASLEEP: Presently no significant problems with falling asleep. DURING SLEEP: Patient usually sleeps on the side position with loud snoring and witnessed episodes of stop breathing during the sleep by her . Patient may wake up from sleep up to 4 times with up to 2 episodes of nocturia. No history of hypnogogical hallucinations, sleep paralysis, or cataplexy. DURING THE DAY/WAKE STATE: Morning patient wake up tired, has difficulties to pay attention, falling asleep during the day if history of problems with memory, concentration, irritability, depression, anxiety, claustrophobia. [place] sleepiness scale is significantly increased to 14. Patient may take up to 3 naps during the day. PAST MEDICAL HISTORY: Bipolar, tachycardia, acid reflux, nasal problems. PAST SURGICAL HISTORY: Surgical treatment for carpal tunnel syndrome on the right side, septoplasty. MEDICATIONS: Please see below. SOCIAL HISTORY: Please see below. FAMILY HISTORY: Please see below. REVIEW OF SYSTEMS: Loud snoring, multiple awakenings from sleep, sleepiness during the day. No fevers. No double vision. No recent chest pain. No shortness of breath. No abdominal pain. No bleeding episodes. No blood in urine. No seizure episodes. PHYSICAL EXAMINATION: GENERAL: A pleasant patient without any distress. VITAL SIGNS: Please see below, weight 149 pounds, BMI 25.9. HEENT: PERRLA, EOMI. Evaluation of oropharynx showed tongue protrudes midline, low position of soft palate Mallampati 3, wide pillars. NECK: Supple. No JVD. Thyroid is not palpable. 13 inches in circumference. LUNGS: Clear to percussion and to auscultation. Good air exchange. No wheezing or rhonchi. HEART: S1, S2 regular. No murmurs, gallops or rubs. ABDOMEN: Soft and nontender. Bowel sounds are present. No organomegaly appreciated. EXTREMITIES: No clubbing or cyanosis. JAMB CUTTER: Awake, alert, and oriented x3. Cranial nerves 2 to 7 intact. There is no fasciculation or atrophy noted. No focal deficits observed. ASSESSMENT: 1. Snoring, witnessed episodes of stop breathing during the sleep, small oropharyngeal space with low position of soft palate Mallampati 3 and wide pillars, sleepiness with [place] Sleepiness Scale increased to 14. Obstructive sleep apnea hypopnea syndrome. 2. History of bipolar disorder. 3. Tachycardia. 4. Acid reflux. 5 status post septoplasty. 6 . Status post surgical treatment for carpal tunnel syndrome on the right side. PLAN: 1. Polysomnography for significant excessive daytime sleepiness of patient's breathing during sleep. 2. Following plan after reading sleep study. If sleep study will be negative for obstructive sleep apnea hypopnea syndrome, we may consider multiple sleep latency test for evaluation symptoms of significant excessive daytime sleepiness. 3. Preferable position during sleep on the side. 4. No driving if patient feels any sleepiness. Patient is aware of civil and criminal liability for unsafe driving. 5. Sleep hygiene with regular sleep time for at least 7.5-8 hours. 6. Watching weight. Thank you very much for referring this patient for consultation. Sincerely, Mike Ma MD, PhD, FAASM. Diplomat of [place] [employer], Sleep Medicine Board by [place] [employer] [place] [employer] Nurse Staff [employer] [facility] [place] cc: Patricia Gonzalez MD Past Medical History Past Medical History: Asthma, COPD, Fibromyalgia, GERD/Reflux, GI Bleed Additional Past Medical History / Comment(s): covid + pneumonia 10/30/2020 complicated by respiratory failure, intubation, mechanical ventilation, bilateral pneumothoraces, Other hx: Primary immunodeficiency, antral ulcers, GI bleed, anemia, IBS, migraines, back pain, TMJ, seasonal allergies, takes metoprolol for heart rate, tends to run low BP, current ulcer has peptic ulcer disease, back pain, taking A/B for resolving UTI History of Any Multi-Drug Resistant Organisms: None Reported Past Surgical History: Uterine Ablation Additional Past Surgical History / Comment(s): EGDs, colonoscopies, bilateral breast augmentation, septoplasty, L ear trauma/reattached. Past Anesthesia/Blood Transfusion Reactions: No Reported Reaction, Motion Sickness Additional Past Anesthesia/Blood Transfusion Reaction / Comment(s): Pt has received blood in past without reaction. Past Psychological History: ADD/ADHD, Anxiety, Bipolar, Depression, PTSD Additional Psychological History / Comment(s): Pt resides with her boyfriend and every other weekend, they have his 16 and 18 year old children. Smoking Status: Never smoker Past Alcohol Use History: None Reported Additional Past Alcohol Use History / Comment(s): Pt started smoking in 1990 and 5 cigarettes per day currently, quit smoking in March, Pt states she started drinking alcohol heavily last August 2019 but now two times a week a couple shots. quit drinking 39 days ago Past Drug Use History: Marijuana Additional Drug Use History / Comment(s): occasional use-hasn't used recently - Past Family History Father Family Medical History: Coronary Artery Disease (CAD), Hyperlipidemia, Hypertension Additional Family Medical History / Comment(s): Father at age 51 from accidental drug overdose. lung problems, emphysema, snoring, during sleep, mental illness Mother Family Medical History: Fibromyalgia Additional Family Medical History / Comment(s): Mother is alive at age 61 with history of primary immunodeficiency. headaches Brother(s) Additional Family Medical History / Comment(s): Patient has one brother with history of alcohol abuse. Patient does not have any sisters. Patient has 2 children with no major medical problems. Medications and Allergies Home Medications Medication Instructions Recorded Confirmed Type DULoxetine HCL [Cymbalta] 60 mg PO DAILY 02/26/20 11/24/24 History Cyclobenzaprine [Flexeril] 5 mg PO TID 08/15/21 11/24/24 History ARIPiprazole [Abilify] 10 mg PO DAILY 10/28/23 11/24/24 History Albuterol Sulfate [Albuterol 2 puff INHALATION RT-Q4H PRN 10/28/23 11/24/24 His tory Sulfate Hfa] Folic Acid 1 mg PO DAILY 10/28/23 11/24/24 History Rimegepant Sulfate [Nurtec Odt] 1 tab PO DAILY PRN 10/28/23 11/24/24 History Topiramate [Topiramate ER 150 mg PO DAILY 10/28/23 11/24/24 History (Sprinkle)] busPIRone HCL 10 mg PO TID 10/28/23 11/24/24 History Metoprolol Succinate (ER) [Toprol 100 mg PO DAILY 05/21/24 11/24/24 History XL] Pantoprazole [Protonix] 40 mg PO BID 07/31/24 11/24/24 History Sucralfate [Carafate] 1 gm PO ACHS 07/31/24 11/24/24 History oxyCODONE-APAP 5-325MG [Percocet 1 tab PO BID PRN 07/31/24 11/24/24 History 5-325 mg] Amitriptyline HCl [Elavil] 100 mg PO HS 11/24/24 11/24/24 History Butalb/Asprin/Caff 50-325-40Mg 1 cap PO DAILY PRN 11/24/24 11/24/24 History [Fiorinal 50-325-40 MG] Ipratropium-Albuterol Nebulize 3 ml INHALATION RT-QID PRN 11/24/24 11/24/24 History [Duoneb 0.5 mg-3 mg/3 ml Soln] buPROPion XL [Wellbutrin XL] 300 mg PO DAILY 11/24/24 11/24/24 History Allergies Allergy/AdvReac Type Severity Reaction Status Date / Time adhesive Allergy Rash/Hives Verified 11/05/24 17:49 latex Allergy Rash/Hives Verified 11/05/24 17:49 morphine Allergy Nausea & Verified 11/05/24 17:49 Vomiting prochlorperazine Allergy Nausea & Verified 11/05/24 17:49 [From Compazine] Vomiting ciprofloxacin [From Cipro] AdvReac Hallucinati Verified 11/05/24 17:49 ons citalopram [From Celexa] AdvReac Suicidal Verified 11/05/24 17:49 thoughts diazepam [From Valium] AdvReac Hallucinati Verified 11/05/24 17:49 ons/Anxiety fluoxetine [From Prozac] AdvReac Suicidal Verified 11/05/24 17:49 thoughts metoclopramide [From Reglan] AdvReac Hallucinati Verified 11/05/24 17:49 ons/Anxiety paroxetine [From Paxil] AdvReac Suicidal Verified 11/05/24 17:49 thoughts Penicillins AdvReac Nausea & Verified 11/05/24 17:49 Vomiting Physical Exam Vitals: Vital Signs Temp Pulse Resp BP Pulse Ox 12/11/24 13:37 97.7 F 82 16 102/74 98 Sleep Note - Sleep Data ESS Total: 14 - Sleep Note Sleep Note: Temperature: 97.7 F Pulse Rate: 82 Respiratory Rate: 16 Blood Pressure: 102/74 SpO2: 98 Height: 0 in Weight: 0 g BMI: Neck Circumference: 13
== END ==
LOC: 3 N SLEEP 12:56
PROVIDERS: ATTEND Internal Medicine
DX: G47.33 Obstructive sleep apnea (adult) (pediatric) (principal); F31.9 Bipolar disorder, unspecified; R00.0 Tachycardia, unspecified; K21.9 Gastro-esophageal reflux disease without esophagitis; Z98.890 Other specified postprocedural states; Z87.891 Personal history of nicotine dependence; Z91.048 Other nonmedicinal substance allergy status; Z91.040 Latex allergy status; Z88.5 Allergy status to narcotic agent; Z88.1 Allergy status to other antibiotic agents; Z88.8 Allergy status to other drugs, medicaments and biological substances; Z88.0 Allergy status to penicillin
CPT/HCPCS: 99211

== ENCOUNTER 2024-12-24 16:03 | Observation (INO) | payer OTHER ==
--- NOTE | 2024-12-24 16:35 | ED ---
Chest Pain HPI - General Source: patient, RN notes reviewed Mode of arrival: wheelchair Limitations: no limitations <Raphael Nguyen - Last Filed: 12/24/24 16:33> <Elan Hall - Last Filed: 12/24/24 20:15> - General Chief Complaint: Chest Pain Stated Complaint: Chest Pain/YIMI Time Seen by Provider: 12/24/24 16:14 - History of Present Illness Initial Comments: Quick note: This is a 44-year-old female with a history of collapsed lung presenting for mid chest pain (05/29) since 0400 this morning. Patient states pain is sharp and constant that worsens with inhalation and associated shortness of breath. 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 Denies pain radiating elsewhere, dizziness, diaphoresis, presyncope, tearing sensation. (Raphael Nguyen) This is a 44-year-old female who presents to the emergency department stating that she woke up this morning with chest pain in the center of her chest. Patient states is worse with breathing worse with moving worse with touching. Patient states she has been moving into a new home over the last couple of days. Patient denies any shortness of breath. States it hurts to take a breath. Patient denies fever chills or cough. Patient has abdominal pain patient has nausea vomiting diarrhea. (Elan Hall) - Related Data Home Medications Medication Instructions Recorded Confirmed DULoxetine HCL [Cymbalta] 60 mg PO DAILY 02/26/20 11/24/24 Cyclobenzaprine [Flexeril] 5 mg PO TID 08/15/21 11/24/24 ARIPiprazole [Abilify] 10 mg PO DAILY 10/28/23 11/24/24 Albuterol Sulfate [Albuterol 2 puff INHALATION RT-Q4H PRN 10/28/23 11/24/24 Sulfate Hfa] Folic Acid 1 mg PO DAILY 10/28/23 11/24/24 Rimegepant Sulfate [Nurtec Odt] 1 tab PO DAILY PRN 10/28/23 11/24/24 Topiramate [Topiramate ER 150 mg PO DAILY 10/28/23 11/24/24 (Sprinkle)] busPIRone HCL 10 mg PO TID 10/28/23 11/24/24 Metoprolol Succinate (ER) [Toprol 100 mg PO DAILY 05/21/24 11/24/24 XL] Pantoprazole [Protonix] 40 mg PO BID 07/31/24 11/24/24 Sucralfate [Carafate] 1 gm PO ACHS 07/31/24 11/24/24 oxyCODONE-APAP 5-325MG [Percocet 1 tab PO BID PRN 07/31/24 11/24/24 5-325 mg] Amitriptyline HCl [Elavil] 100 mg PO HS 11/24/24 11/24/24 Butalb/Asprin/Caff 50-325-40Mg 1 cap PO DAILY PRN 11/24/24 11/24/24 [Fiorinal 50-325-40 MG] Ipratropium-Albuterol Nebulize 3 ml INHALATION RT-QID PRN 11/24/24 11/24/24 [Duoneb 0.5 mg-3 mg/3 ml Soln] buPROPion XL [Wellbutrin XL] 300 mg PO DAILY 11/24/24 11/24/24 Allergies Allergy/AdvReac Type Severity Reaction Status Date / Time adhesive Allergy Rash/Hives Verified 12/24/24 16:07 latex Allergy Rash/Hives Verified 12/24/24 16:07 morphine Allergy Nausea & Verified 12/24/24 16:07 Vomiting prochlorperazine Allergy Nausea & Verified 12/24/24 16:07 [From Compazine] Vomiting ciprofloxacin [From Cipro] AdvReac Hallucinati Verified 12/24/24 16:07 ons citalopram [From Celexa] AdvReac Suicidal Verified 12/24/24 16:07 thoughts diazepam [From Valium] AdvReac Hallucinati Verified 12/24/24 16:07 ons/Anxiety fluoxetine [From Prozac] AdvReac Suicidal Verified 12/24/24 16:07 thoughts metoclopramide [From Reglan] AdvReac Hallucinati Verified 12/24/24 16:07 ons/Anxiety paroxetine [From Paxil] AdvReac Suicidal Verified 12/24/24 16:07 thoughts Penicillins AdvReac Nausea & Verified 12/24/24 16:07 Vomiting Review of Systems ROS Other: All systems not noted in ROS Statement are negative. <Raphael Nguyen - Last Filed: 12/24/24 16:33> ROS Other: All systems not noted in ROS Statement are negative. <Elan Hall - Last Filed: 12/24/24 20:15> ROS Statement: Those systems with pertinent positive or pertinent negative responses have been documented in the HPI. Past Medical History Past Medical History: Asthma, COPD, Fibromyalgia, GERD/Reflux, GI Bleed Additional Past Medical History / Comment(s): covid + pneumonia 10/30/2020 complicated by respiratory failure, intubation, mechanical ventilation, bilateral pneumothoraces, Other hx: Primary immunodeficiency, antral ulcers, GI bleed, anemia, IBS, migraines, back pain, TMJ, seasonal allergies, takes metoprolol for heart rate, tends to run low BP, current ulcer has peptic ulcer disease, back pain, taking A/B for resolving UTI History of Any Multi-Drug Resistant Organisms: None Reported Past Surgical History: Uterine Ablation Additional Past Surgical History / Comment(s): EGDs, colonoscopies, bilateral breast augmentation, septoplasty, L ear trauma/reattached. Past Anesthesia/Blood Transfusion Reactions: No Reported Reaction, Motion Sickness Additional Past Anesthesia/Blood Transfusion Reaction / Comment(s): Pt has received blood in past without reaction. Past Psychological History: ADD/ADHD, Anxiety, Bipolar, Depression, PTSD Smoking Status: Never smoker Past Alcohol Use History: None Reported Past Drug Use History: Marijuana - Past Family History Father Family Medical History: Coronary Artery Disease (CAD), Hyperlipidemia, Hypertension Additional Family Medical History / Comment(s): Father at age 51 from accidental drug overdose. lung problems, emphysema, snoring, during sleep, mental illness Mother Family Medical History: Fibromyalgia Additional Family Medical History / Comment(s): Mother is alive at age 61 with history of primary immunodeficiency. headaches Brother(s) Additional Family Medical History / Comment(s): Patient has one brother with history of alcohol abuse. Patient does not have any sisters. Patient has 2 children with no major medical problems. <PatrickRaphael - Last Filed: 12/24/24 16:33> General Exam Limitations: no limitations <PatrickRaphael - Last Filed: 12/24/24 16:33> <Elan Hall - Last Filed: 12/24/24 20:15> - General Exam Comments Initial Comments: Visual Physical Exam Vital signs reviewed General: Well-appearing, nontoxic, no acute distress. Head: Normocephalic, atraumatic Eyes: PERRLA, EOMI ENT: Airway patent Chest: Nonlabored breathing Skin: No visual rash, normal skin tone Neuro: Alert and oriented 3 Musculoskeletal: No gross abnormalities (Raphael Nguyen) GENERAL: Patient is well-developed and well-nourished. Patient is nontoxic and well- hydrated and is in mild distress. ENT: Neck is soft and supple. No significant lymphadenopathy is noted. Oropharynx is clear. Moist mucous membranes. Neck has full range of motion without eliciting any pain. EYES: The sclera were anicteric and conjunctiva were pink and moist. Extraocular movements were intact and pupils were equal round and reactive to light. Eyelids were unremarkable. PULMONARY: Unlabored respirations. Good breath sounds bilaterally. No audible rales rhonchi or wheezing was noted. CARDIOVASCULAR: There is a regular rate and rhythm without any murmurs gallops or rubs. Chest pain is reproducible to some degree ABDOMEN: Soft and nontender with normal bowel sounds. SKIN: Skin is clear with no lesions or rashes and otherwise unremarkable. NEUROLOGIC: Patient is alert and oriented x3. Cranial nerves II through XII are grossly intact. Motor and sensory are also intact. Normal speech, volume and content. Symmetrical smile. MUSCULOSKELETAL: Normal extremities with adequate strength and full range of motion. No lower extremity swelling or edema. No calf tenderness. LYMPHATICS: No significant lymphadenopathy is noted PSYCHIATRIC: Normal psychiatric evaluation. (Elan Hall) Course Vital Signs 12/24/24 12/24/24 16:04 18:23 Temperature 97.9 F Pulse Rate 109 H 96 Respiratory 18 20 Rate Blood Pressure 96/62 107/69 O2 Sat by Pulse 91 L 96 Oximetry Chest Pain MDM <Raphael Nguyen - Last Filed: 12/24/24 16:33> <Elan Hall - Last Filed: 12/24/24 20:15> - [facility] I completed the quick note portion of this chart signed EVETTE Hough (Raphael Nguyen) EKG is interpreted by myself. EKG shows sinus tachycardia at 109 bpm parables 128 QRS is 93 QT interval 328 QTc is 392. Patient's EKG shows no acute abnormality. Was pt. sent in by a medical professional or institution ([facility], [facility], urgent care, hospital, or residential...) When possible be specific @ -No Did you speak to anyone other than the patient for history (EMS, parent, family, police, friend...)? What history was obtained from this source @ -No Did you review nursing and triage notes (agree or disagree)? Why? @ -I reviewed and agree with nursing and triage notes Were old charts reviewed (outside hosp., previous admission, EMS record, old EKG, old radiological studies, urgent care reports/EKG's, residential records)? Report findings @ -No old charts were reviewed Differential Diagnosis? @ -Differential Chest Pain: Stable Angina, Unstable Angina, STEMI, NSTEMI Aortic Dissection, Pneumothorax, Musculoskeletal, Esophageal Spasm GERD, Cholecystitis, Pancreatitis, Zoster, this is not meant to be an all-inclusive list. EKG interpreted by me (3pts min.). @ -As above X-rays interpreted by me (1pt min.). @ -X-ray shows no acute CT interpreted by me (1pt min.). @ -None done U/S interpreted by me (1pt. min.). @ -None done What testing was considered but not performed or refused? (CT, X-rays, U/S, labs)? Why? @ -None What meds were considered but not given or refused? Why? @ -None Did you discuss the management of the patient with other professionals (professionals i.e. [facility], [facility], lab, RT, psych nurse, director social, forest fire fighters dispatcher, teacher, probation and parole officer, case folder)? Give summary @ -[facility] I admitted the patient I wrote admitting orders Was smoking cessation discussed for >3mins.? @ -No Was critical care preformed (if so, how long)? @ -No Were there social determinants of health that impacted care today? How? (Homelessness, low income, unemployed, alcoholism, drug addiction, transportation, low edu. Level, literacy, decrease access to med. care, skilled nursing, rehab)? @ -No Was there de-escalation of care discussed even if they declined (Discuss DNR or withdrawal of care, Hospice)? DNR status @ -No What co-morbidities impacted this encounter? (DM, HTN, Smoking, COPD, CAD, Cancer, CVA, ARF, Chemo, Hep., AIDS, mental health diagnosis, sleep apnea, morbid obesity)? @ -None Was patient admitted / discharged? Hospital course, mention meds given and route , prescriptions, significant lab abnormalities, going to OR and other pertinent info. @ -Patient chest pain persisted throughout the ED stay since the pain was not 100% reproducible I decided to admit the patient overnight and have repeat troponins and have cardiology see her in the morning [facility] Undiagnosed new problem with uncertain prognosis? @ -No Drug Therapy requiring intensive monitoring for toxicity (Heparin, Nitro, Insulin, Cardizem)? @ -No Were any procedures done? @ -No Diagnosis/symptom? @ -Chest pain Acute, or Chronic, or Acute on Chronic? @ -Acute Uncomplicated (without systemic symptoms) or Complicated (systemic symptoms)? @ -Complicated Side effects of treatment? @ -No Exacerbation, Progression, or Severe Exacerbation? @ -No Poses a threat to life or bodily function? How? (Chest pain, USA, SC, pneumonia, PE, COPD, DKA, ARF, appy, cholecystitis, CVA, Diverticulitis, Homicidal, Suicidal, threat to staff... and all critical care pts) @ -Yes this can lead to an SC and endorgan dysfunction (Elan Hall) Disposition <Raphael Nguyen - Last Filed: 12/24/24 16:33> Time of Disposition: 20:15 <Elan Hall - Last Filed: 12/24/24 20:15> Clinical Impression: Chest pain Disposition: ADMITTED IP TO THIS HOSP Referrals: Patricia Gonzalez MD [Primary Care Provider] - 1-2 days
--- NOTE | 2024-12-24 17:06 | XR ---
EXAMINATION TYPE: XR chest 2V DATE OF EXAM: 12/24/2024 4:58 PM COMPARISON: Chest radiographs from 11/24/2024. TECHNIQUE: XR chest 2V Frontal and lateral views of the chest. CLINICAL INDICATION:Female, 44 years old with history of Chest Pain; FINDINGS: Lungs/Pleura: There is no evidence of pleural effusion, focal consolidation, or pneumothorax. Pulmonary vascularity: Unremarkable. Heart/mediastinum: Cardiomediastinal silhouette is unremarkable. Musculoskeletal: No acute osseous pathology. Other findings: Overlying bilateral metallic nipple ornaments are redemonstrated. IMPRESSION: No acute cardiopulmonary disease/process. [facility], , 12/24/2024 5:04 PM
[2024-12-24 17:44] LABS: Basophils # (A) 0.04 10*3/uL (0.00-0.10); Basophils % (A) 0.5 %; Eosinophils # (A) 0.21 10*3/uL (0.04-0.35); Eosinophils % (A) 2.5 %; HCT 34.3 % (37.2-46.3); Lymphocytes # (A) 1.32 10*3/uL (0.90-5.00); MCH 29.3 pg (27.0-32.0); MCHC 32.1 g/dL (32.0-37.0); MCV 91.5 fL (80.0-97.0); Mean Platelet Volume 9.8 fL (9.5-12.2); Monocytes # (A) 0.67 10*3/uL (0.20-1.00); Monocytes % (A) 8.1 %; Neutrophils # (A) 5.98 10*3/uL (1.80-7.70); Neutrophils % (A) 72.4 %; Platelet Count 308 10*3/uL (140-440); RBC 3.75 10*6/uL (4.10-5.20); WBC 8.26 10*3/uL (4.50-10.00)
[2024-12-24 17:46] LABS: RDW 25.2 % (11.5-14.5)
[2024-12-24 17:47] LABS: Appearance,Urine Clear (Clear); Bilirubin,Urine Negative (Negative); Blood,Urine Negative (Negative); Color,Urine Colorless; Glucose,Urine (UA) Negative (Negative); Ketones,Urine Negative (Negative); Leukocyte Esterase,Urine Negative (Negative); Nitrite,Urine Negative (Negative); PH, Urine 6.5 (5.0-8.0); Protein,Urine Negative (Negative); Specific Gravity,Urine 1.015 (1.001-1.035); Urobilinogen,Urine <2.0 mg/dL (<2.0)
[2024-12-24 17:55] LABS: ALT 39 U/L (4-34); AST 45 U/L (14-36); African American GFR (CKD) >90 (>60 ml/min/1.73 sqM); Albumin 4.2 g/dL (3.5-5.0); Alkaline Phosphatase 102 U/L (38-126); Anion Gap 14 mmol/L; Blood Urea Nitrogen 21 mg/dL (7-17); Carbon Dioxide 20 mmol/L (22-30); Chloride 107 mmol/L (98-107); Glucose 102 mg/dL (74-99); Magnesium 1.9 mg/dL (1.6-2.3); Non-African American GFR(CKD) >90 (>60 ml/min/1.73 sqM); Potassium 3.5 mmol/L (3.5-5.1); Sodium 141 mmol/L (137-145); Total Bilirubin 0.3 mg/dL (0.2-1.3); Total Protein 6.9 g/dL (6.3-8.2)
[2024-12-24 18:04] LABS: Partial Thromboplastin Time 21.3 sec (22.0-30.0); Prothrombin Time 10.8 sec (10.0-12.5)
[2024-12-24 18:16] LABS: Anisocytosis (M) Present
[2024-12-24] MEDS: KETOROLAC 15 MG/ML 1 ML VIAL IVP STA (18:41)
[2024-12-24] MEDS: ONDANSETRON 4 MG/2 ML VIAL IVP STA (18:42)
[2024-12-24] MEDS: HYDROmorphone 0.5 MG/0.5 ML SYRINGE IVP STA (18:44)
[2024-12-24] MEDS ORDERED: NITROGLYCERIN SL TABS 0.4 MG TAB SUBLINGUAL PRN (20:20)
[2024-12-24] MEDS: HYDROmorphone 0.5 MG/0.5 ML SYRINGE IVP PRN (20:40)
[2024-12-24] MEDS: NITROGLYCERIN OINT 1 INCH/GM PACKET TOPICAL SCH (23:47)
[2024-12-25 00:05] VITALS: RESP 16
[2024-12-25] MEDS: ONDANSETRON 4 MG/2 ML VIAL IVP PRN (02:12)
[2024-12-25 08:11] VITALS: BP 90/58; PULSE 82; TEMP 98.1
[2024-12-25] MEDS ORDERED: ASPIRIN 325 MG TAB PO SCH (09:00)
[2024-12-25 09:03] LABS: Chol/HDL Ratio 3.96 Ratio; LDL Cholesterol,Calculated 120.6 mg/dL (0.0-131.0)
[2024-12-25] MEDS ORDERED: IPRATROPIUM-ALBUTEROL 3 ML NEB INHALATION PRN (10:40)
[2024-12-25] MEDS ORDERED: ALBUTEROL HFA INHALER INHALATION PRN (10:40)
[2024-12-25] MEDS ORDERED: NON FORMULARY DRUG (Butalb/Asprin/Caff 50-325-40mg 1 EACH Cap) PO PRN (10:40)
--- NOTE | 2024-12-25 10:57 | P.CRDCN ---
History of Present Illness History of present illness: HISTORY OF PRESENT ILLNESS: This is a 44-year-old female with a past medical history significant for pneumothorax, asthma, COPD, fibromyalgia, anxiety, depression, bipolar disorder, PTSD, and former nicotine dependence. Patient follows in the office with Dr. Farrell. We have been asked to see the patient in consultation for chest pain. Patient examined at the bedside. Patient states she had an episode of chest pain yesterday that started in the front of her chest and radiated to her back. She states the pain was worse with chest wall palpation. She also states the pain was worse with movement and also with deep inspiration. She states the pain started around 4 AM and woke her up from sleep. She currently denies any chest pain or shortness of breath. Vital signs are stable. DIAGNOSTICS: - EKG reveals sinus tachycardia with no signs of acute ischemia. - Chest xray negative for acute process. - Laboratory data: WBC 8.26. Hemoglobin 11.0. Platelet count 308. D-dimer 0.3 5. Sodium 141. Potassium 3.5. BUN 21. Creatinine 0.68. Troponin negative x 3. - Current home cardiac medications include metoprolol succinate 100 mg daily. -Patient underwent tilt table testing in October 2024 which was negative for neurocardiogenic syncope -Patient underwent stress echocardiogram in November 2022 which was inconclusive as patient was unable to reach her target heart rate REVIEW OF SYSTEMS: At the time of my exam: CONSTITUTIONAL: Denies fever or chills. HEENT: Denies blurred vision, vision changes, or eye pain. Denies hemoptysis CARDIOVASCULAR: Denies chest pain. Denies orthopnea. Denies PND. Denies palpitations RESPIRATORY: Denies shortness of breath. GASTROINTESTINAL: Denies abdominal pain. Denies nausea or vomiting. HEMATOLOGIC: Denies bleeding disorders. GENITOURINARY: Denies any blood in urine. SKIN: Denies pruitis. Denies rash. PHYSICAL EXAM: VITAL SIGNS: Reviewed. GENERAL: Well-developed in no acute distress. HEENT: Head is normocephalic. Pupils are equal, round. Sclerae anicteric. Mucous membranes of the mouth are moist. Neck supple. No JVD or thyromegaly LUNGS: Respirations even and unlabored. Lungs essentially clear to auscultation bilaterally. HEART: Regular rate and rhythm. S1 and S2 heard. ABDOMEN: Soft. Nondistended. Nontender. EXTREMITIES: Normal range of motion. No clubbing or cyanosis. Peripheral pulses intact. No lower extremity edema NEUROLOGIC: Awake and alert. Oriented x 3. ASSESSMENT: Atypical chest pain, troponin negative x 3 History of pneumothorax History of asthma History of COPD History of fibromyalgia History of anxiety History of depression History of bipolar disorder History of PTSD Former nicotine dependence PLAN: An acute coronary event has been ruled out Resume home cardiac medications Consider outpatient stress echocardiogram Patient may be discharged home today from a cardiac standpoint and follow-up in the office with Dr. Farrell We will sign off. Please reconsult if needed. Nurse practitioner note has been reviewed by physician. Signing provider agrees with the documented findings, assessment, and plan of care documented by [employer] as a scribe. Past Medical History Past Medical History: Asthma, COPD, Fibromyalgia, GERD/Reflux, GI Bleed Additional Past Medical History / Comment(s): covid + pneumonia 10/30/2020 complicated by respiratory failure, intubation, mechanical ventilation, bilateral pneumothoraces, Other hx: Primary immunodeficiency, antral ulcers, GI bleed, anemia, IBS, migraines, back pain, TMJ, seasonal allergies, takes metoprolol for heart rate, tends to run low BP, current ulcer has peptic ulcer disease, back pain, taking A/B for resolving UTI History of Any Multi-Drug Resistant Organisms: None Reported Past Surgical History: Uterine Ablation Additional Past Surgical History / Comment(s): EGDs, colonoscopies, bilateral breast augmentation, septoplasty, L ear trauma/reattached. Past Anesthesia/Blood Transfusion Reactions: No Reported Reaction, Motion Sickness Additional Past Anesthesia/Blood Transfusion Reaction / Comment(s): Pt has received blood in past without reaction. Smoking Status: Former smoker - Past Family History Father Family Medical History: Coronary Artery Disease (CAD), Hyperlipidemia, Hypertension Additional Family Medical History / Comment(s): Father at age 51 from accidental drug overdose. lung problems, emphysema, snoring, during sleep, mental illness Mother Family Medical History: Fibromyalgia Additional Family Medical History / Comment(s): Mother is alive at age 61 with history of primary immunodeficiency. headaches Brother(s) Additional Family Medical History / Comment(s): Patient has one brother with history of alcohol abuse. Patient does not have any sisters. Patient has 2 children with no major medical problems. Medications and Allergies Home Medications Medication Instructions Recorded Confirmed Type DULoxetine HCL [Cymbalta] 60 mg PO DAILY 02/26/20 12/24/24 History Cyclobenzaprine [Flexeril] 5 mg PO TID 08/15/21 12/24/24 History ARIPiprazole [Abilify] 10 mg PO DAILY 10/28/23 12/24/24 History Albuterol Sulfate [Albuterol 2 puff INHALATION RT-Q4H PRN 10/28/23 12/24/24 History Sulfate Hfa] Folic Acid 1 mg PO DAILY 10/28/23 12/24/24 History Rimegepant Sulfate [Nurtec Odt] 1 tab PO DAILY PRN 10/28/23 12/24/24 History Topiramate [Topiramate ER 150 mg PO DAILY 10/28/23 12/24/24 History (Sprinkle)] busPIRone HCL 10 mg PO TID 10/28/23 12/24/24 History Metoprolol Succinate (ER) [Toprol 100 mg PO DAILY 05/21/24 12/24/24 History XL] Pantoprazole [Protonix] 40 mg PO BID 07/31/24 12/24/24 History Sucralfate [Carafate] 1 gm PO ACHS 07/31/24 12/24/24 History oxyCODONE-APAP 5-325MG [Percocet 1 tab PO BID PRN 07/31/24 12/24/24 History 5-325 mg] Amitriptyline HCl [Elavil] 100 mg PO HS 11/24/24 12/24/24 History Butalb/Asprin/Caff 50-325-40Mg 1 cap PO DAILY PRN 11/24/24 12/24/24 History [Fiorinal 50-325-40 MG] Ipratropium-Albuterol Nebulize 3 ml INHALATION RT-QID PRN 11/24/24 12/24/24 History [Duoneb 0.5 mg-3 mg/3 ml Soln] buPROPion XL [Wellbutrin XL] 300 mg PO DAILY 11/24/24 12/24/24 History Allergies Allergy/AdvReac Type Severity Reaction Status Date / Time adhesive Allergy Rash/Hives Verified 12/24/24 21:03 latex Allergy Rash/Hives Verified 12/24/24 21:03 morphine Allergy Nausea & Verified 12/24/24 21:03 Vomiting prochlorperazine Allergy Nausea & Verified 12/24/24 21:03 [From Compazine] Vomiting ciprofloxacin [From Cipro] AdvReac Hallucinati Verified 12/24/24 21:03 ons citalopram [From Celexa] AdvReac Suicidal Verified 12/24/24 21:03 thoughts diazepam [From Valium] AdvReac Hallucinati Verified 12/24/24 21:03 ons/Anxiety fluoxetine [From Prozac] AdvReac Suicidal Verified 12/24/24 21:03 thoughts metoclopramide [From Reglan] AdvReac Hallucinati Verified 12/24/24 21:03 ons/Anxiety paroxetine [From Paxil] AdvReac Suicidal Verified 12/24/24 21:03 thoughts Penicillins AdvReac Nausea & Verified 12/24/24 21:03 Vomiting Physical Exam Vitals: Vital Signs Temp Pulse Pulse Resp BP BP BP 12/25/24 07:15 98.1 F 82 16 90/58 12/25/24 02:17 98 F 79 16 93/58 12/25/24 01:00 16 12/25/24 00:04 97.6 F 72 16 85/44 12/24/24 23:12 97.7 F 80 19 94/66 12/24/24 18:23 96 20 107/69 12/24/24 16:04 97.9 F 109 H 18 96/62 Pulse Ox 12/25/24 07:15 99 12/25/24 02:17 98 12/25/24 01:00 12/25/24 00:04 96 12/24/24 23:12 100 12/24/24 18:23 96 12/24/24 16:04 91 L Intake and Output 12/24/24 12/25/24 12/25/24 22:59 06:59 14:59 Intake Total 360 Balance 360 Intake: Oral 360 Other: # Voids 2 Weight 67.585 kg 67.585 kg Results 12/24/24 17:33 12/24/24 17:33 Cardiac Enzymes 12/24/24 12/24/24 12/24/24 Range/Units 17:33 17:33 21:02 AST 45 H (14-36) U/L Troponin I <0.012 <0.012 (0.000-0.034) ng/mL 12/24/24 Range/Units 23:22 AST (14-36) U/L Troponin I <0.012 (0.000-0.034) ng/mL Coagulation 12/24/24 Range/Units 17:33 PT 10.8 (10.0-12.5) sec APTT 21.3 L (22.0-30.0) sec Lipids 12/24/24 Range/Units 17:33 Triglycerides 167.00 H (0.00-149.00) mg/dL Cholesterol 206.00 H (0.00-200.00) mg/dL HDL Cholesterol 52.00 (40.00-60.00) mg/dL Cholesterol/HDL Ratio 3.96 Ratio CBC 12/24/24 Range/Units 17:33 WBC 8.26 (4.50-10.00) 10*3/uL RBC 3.75 L (4.10-5.20) 10*6/uL Hgb 11.0 L (12.0-15.0) g/dL Hct 34.3 L (37.2-46.3) % Plt Count 308 (140-440) 10*3/uL Comprehensive Metabolic Panel 12/24/24 Range/Units 17:33 Sodium 141 (137-145) mmol/L Potassium 3.5 (3.5-5.1) mmol/L Chloride 107 (98-107) mmol/L Carbon Dioxide 20 L (22-30) mmol/L BUN 21 H (7-17) mg/dL Creatinine 0.68 (0.52-1.04) mg/dL Glucose 102 H (74-99) mg/dL Calcium 10.0 (8.4-10.2) mg/dL AST 45 H (14-36) U/L ALT 39 H (4-34) U/L Alkaline Phosphatase 102 (38-126) U/L Total Protein 6.9 (6.3-8.2) g/dL Albumin 4.2 (3.5-5.0) g/dL Current Medications Generic Name Dose Route Start Last Admin Trade Name Freq PRN Reason Stop Dose Admin Albuterol Sulfate 2 puff 12/25/24 10:40 Albuterol Hfa Inhaler INHALATION RT-Q4H PRN Shortness Of Breath Albuterol/Ipratropium 3 ml 12/25/24 10:40 Ipratropium-Albuterol 3 Ml Neb INHALATION RT-QID PRN Shortness Of Breath Amitriptyline HCl 100 mg 12/25/24 21:00 Amitriptyline Hcl 50 Mg Tab PO HS [facility] Aripiprazole 10 mg 12/25/24 11:00 Aripiprazole 10 Mg Tab PO DAILY [facility] Bupropion HCl 300 mg 12/25/24 11:00 Bupropion Xl 300 Mg Tab.Er.24h PO DAILY [facility] Buspirone HCl 10 mg 12/25/24 11:00 Buspirone Hcl 10 Mg Tab PO TID [facility] Duloxetine HCl 60 mg 12/25/24 10:45 Duloxetine Hcl 60 Mg Capsule.Dr PO DAILY [facility] Folic Acid 1 mg 12/25/24 10:45 Folic Acid 1 Mg Tab PO DAILY [facility] Hydromorphone HCl 0.5 mg 12/24/24 20:29 12/24/24 20:40 Hydromorphone 0.5 Mg/0.5 Ml Syringe IVP 0.5 mg Q4HR PRN Administration Pain Metoprolol Succinate 100 mg 12/25/24 09:00 Metoprolol Succinate (Er) 100 Mg Tab.Er.24h PO DAILY [facility] Nitroglycerin 0.4 mg 12/24/24 20:20 Nitroglycerin Sl Tabs 0.4 Mg Tab SUBLINGUAL Q5M PRN Chest Pain Non-Formulary Medication 1 cap 12/25/24 10:40 Butalb/Asprin/Caff 50-325-40mg PO DAILY PRN Migraine Headache Non-Formulary Medication 150 mg 12/25/24 10:45 Topiramate [Topiramate Er (Sprinkle)] PO DAILY [facility] Ondansetron HCl 4 mg 12/24/24 22:14 12/25/24 02:12 Ondansetron 4 Mg/2 Ml Vial IVP 4 mg Q8HR PRN Administration Nausea And Vomiting Oxycodone/Acetaminophen 1 each 12/25/24 10:40 Oxycodone-Apap 5-325mg 1 Each Tab PO BID PRN Pain Pantoprazole Sodium 40 mg 12/25/24 10:45 Pantoprazole 40 Mg Tablet PO BID [facility] Sucralfate 1 gm 12/25/24 12:30 Sucralfate 1 Gm Tab PO ACHS [facility] Intake and Output 12/24/24 12/25/24 12/25/24 22:59 06:59 14:59 Intake Total 360 Balance 360 Intake: Oral 360 Other: # Voids 2 Weight 67.585 kg 67.585 kg 12/24/24 17:33 12/24/24 17:33
[2024-12-25] MEDS: TOPIRAMATE 25 MG TAB PO SCH (11:04)
[2024-12-25] MEDS: SUCRALFATE 1 GM TAB PO SCH (11:04)
[2024-12-25] MEDS: PANTOPRAZOLE 40 MG TABLET PO SCH (11:04)
[2024-12-25] MEDS: DULoxetine HCL 60 MG CAPSULE.DR PO SCH (11:04)
[2024-12-25] MEDS: oxyCODONE-APAP 5-325MG 1 EACH TAB PO PRN (11:04)
[2024-12-25] MEDS: FOLIC ACID 1 MG TAB PO SCH (11:05)
[2024-12-25] MEDS: ARIPiprazole 10 MG TAB PO SCH (11:09)
[2024-12-25] MEDS: busPIRone HCl 10 MG TAB PO SCH (11:09)
[2024-12-25] MEDS: buPROPion XL 300 MG TAB.ER.24H PO SCH (11:09)
[2024-12-25] MEDS: METOPROLOL SUCCINATE (ER) 100 MG TAB.ER.24H PO SCH (11:19)
--- NOTE | 2024-12-25 11:48 | P.HPIM ---
History of Present Illness 44-year-old female with known history of asthma came in with chest pain sharp in nature radiating to the back. Worse with palpation denied any shortness of breath lightheadedness associate with that patient does have history of asthma patient initially believed it may be her asthma although patient does not have any significant bronchospasm at this time patient used to drink alcohol in the past. Did not drink in many months AST and ALT are mildly elevated though. Patient chest pain is not consistent with gastroesophageal reflux disease her pain at this time resolved. D-dimer is negative. Chest pain is nonpleuritic in nature chest x-ray did not show any significant abnormality. EKG mild sinus tachycardia without any acute ST-T wave changes. Patient was eval by cardiology they cleared her for discharge follow-up with her mortgage loan closer Dr. Ramírez as an outpatient. 3 sets of troponins are negative. REVIEW OF SYSTEMS: All other systems are negative except those mentioned in the HPI PHYSICAL EXAMINATION: GENERAL: The patient is alert and oriented x3, not in any acute distress. Well developed, well nourished. HEENT: Pupils are round and equally reacting to light. EOMI. No scleral icterus. No conjunctival pallor. Normocephalic, atraumatic. No pharyngeal erythema. No thyromegaly. CARDIOVASCULAR: S1 and S2 present. No murmurs, rubs, or gallops. PULMONARY: Chest is clear to auscultation, no wheezing or crackles. ABDOMEN: Soft, nontender, nondistended, normoactive bowel sounds. No palpable organomegaly. MUSCULOSKELETAL: No joint swelling or deformity. EXTREMITIES: No cyanosis, clubbing, or pedal edema. NEUROLOGICAL: Gross neurological examination did not reveal any focal deficits. SKIN: No rashes. Assessment and plan -Chest pain musculoskeletal in nature rule out acute coronary syndromes cleared by cardiology with recommendation of outpatient stress test - Bronchial asthma history no not in acute exacerbation -Fibromyalgia - Depression - Bipolar disorder - History of PTSD For above mentioned chronic medical problems patient was resumed on appropriate home medications patient will be discharged today Past Medical History Past Medical History: Asthma, COPD, Fibromyalgia, GERD/Reflux, GI Bleed Additional Past Medical History / Comment(s): covid + pneumonia 10/30/2020 complicated by respiratory failure, intubation, mechanical ventilation, bilateral pneumothoraces, Other hx: Primary immunodeficiency, antral ulcers, GI bleed, anemia, IBS, migraines, back pain, TMJ, seasonal allergies, takes metoprolol for heart rate, tends to run low BP, current ulcer has peptic ulcer disease, back pain, taking A/B for resolving UTI History of Any Multi-Drug Resistant Organisms: None Reported Past Surgical History: Uterine Ablation Additional Past Surgical History / Comment(s): EGDs, colonoscopies, bilateral breast augmentation, septoplasty, L ear trauma/reattached. Past Anesthesia/Blood Transfusion Reactions: No Reported Reaction, Motion Sickness Additional Past Anesthesia/Blood Transfusion Reaction / Comment(s): Pt has received blood in past without reaction. Smoking Status: Former smoker - Past Family History Father Family Medical History: Coronary Artery Disease (CAD), Hyperlipidemia, Hypertension Additional Family Medical History / Comment(s): Father at age 51 from accidental drug overdose. lung problems, emphysema, snoring, during sleep, mental illness Mother Family Medical History: Fibromyalgia Additional Family Medical History / Comment(s): Mother is alive at age 61 with history of primary immunodeficiency. headaches Brother(s) Additional Family Medical History / Comment(s): Patient has one brother with history of alcohol abuse. Patient does not have any sisters. Patient has 2 children with no major medical problems. Medications and Allergies Home Medications Medication Instructions Recorded Confirmed Type DULoxetine HCL [Cymbalta] 60 mg PO DAILY 02/26/20 12/24/24 History Cyclobenzaprine [Flexeril] 5 mg PO TID 08/15/21 12/24/24 History ARIPiprazole [Abilify] 10 mg PO DAILY 10/28/23 12/24/24 History Albuterol Sulfate [Albuterol 2 puff INHALATION RT-Q4H PRN 10/28/23 12/24/24 History Sulfate Hfa] Folic Acid 1 mg PO DAILY 10/28/23 12/24/24 History Rimegepant Sulfate [Nurtec Odt] 1 tab PO DAILY PRN 10/28/23 12/24/24 History Topiramate [Topiramate ER 150 mg PO DAILY 10/28/23 12/24/24 History (Sprinkle)] busPIRone HCL 10 mg PO TID 10/28/23 12/24/24 History Metoprolol Succinate (ER) [Toprol 100 mg PO DAILY 05/21/24 12/24/24 History XL] Pantoprazole [Protonix] 40 mg PO BID 07/31/24 12/24/24 History Sucralfate [Carafate] 1 gm PO ACHS 07/31/24 12/24/24 History oxyCODONE-APAP 5-325MG [Percocet 1 tab PO BID PRN 07/31/24 12/24/24 History 5-325 mg] Amitriptyline HCl [Elavil] 100 mg PO HS 11/24/24 12/24/24 History Butalb/Asprin/Caff 50-325-40Mg 1 cap PO DAILY PRN 11/24/24 12/24/24 History [Fiorinal 50-325-40 MG] Ipratropium-Albuterol Nebulize 3 ml INHALATION RT-QID PRN 11/24/24 12/24/24 History [Duoneb 0.5 mg-3 mg/3 ml Soln] buPROPion XL [Wellbutrin XL] 300 mg PO DAILY 11/24/24 12/24/24 History Allergies Allergy/AdvReac Type Severity Reaction Status Date / Time adhesive Allergy Rash/Hives Verified 12/24/24 21:03 latex Allergy Rash/Hives Verified 12/24/24 21:03 morphine Allergy Nausea & Verified 12/24/24 21:03 Vomiting prochlorperazine Allergy Nausea & Verified 12/24/24 21:03 [From Compazine] Vomiting ciprofloxacin [From Cipro] AdvReac Hallucinati Verified 12/24/24 21:03 ons citalopram [From Celexa] AdvReac Suicidal Verified 12/24/24 21:03 thoughts diazepam [From Valium] AdvReac Hallucinati Verified 12/24/24 21:03 ons/Anxiety fluoxetine [From Prozac] AdvReac Suicidal Verified 12/24/24 21:03 thoughts metoclopramide [From Reglan] AdvReac Hallucinati Verified 12/24/24 21:03 ons/Anxiety paroxetine [From Paxil] AdvReac Suicidal Verified 12/24/24 21:03 thoughts Penicillins AdvReac Nausea & Verified 12/24/24 21:03 Vomiting Physical Exam Vitals: Vital Signs Temp Pulse Pulse Resp BP BP BP 12/25/24 09:00 16 12/25/24 07:15 98.1 F 82 16 90/58 12/25/24 02:17 98 F 79 16 93/58 12/25/24 01:00 16 12/25/24 00:04 97.6 F 72 16 85/44 12/24/24 23:12 97.7 F 80 19 94/66 12/24/24 18:23 96 20 107/69 12/24/24 16:04 97.9 F 109 H 18 96/62 Pulse Ox 12/25/24 09:00 12/25/24 07:15 99 12/25/24 02:17 98 12/25/24 01:00 12/25/24 00:04 96 12/24/24 23:12 100 12/24/24 18:23 96 12/24/24 16:04 91 L Intake and Output 12/24/24 12/25/24 12/25/24 22:59 06:59 14:59 Intake Total 360 Balance 360 Intake: Oral 360 Other: # Voids 2 Weight 67.585 kg 67.585 kg Results CBC & Chem 7: 12/24/24 17:33 12/24/24 17:33 Labs: Abnormal Lab Results - Last 24 Hours (Table) 12/24/24 12/24/24 12/24/24 Range/Units 17:33 17:33 17:33 RBC 3.75 L (4.10-5.20) 10*6/uL Hgb 11.0 L (12.0-15.0) g/dL Hct 34.3 L (37.2-46.3) % RDW 25.2 H (11.5-14.5) % APTT 21.3 L (22.0-30.0) sec Carbon Dioxide 20 L (22-30) mmol/L BUN 21 H (7-17) mg/dL Glucose 102 H (74-99) mg/dL AST 45 H (14-36) U/L ALT 39 H (4-34) U/L Triglycerides (0.00-149.00) mg/dL Cholesterol (0.00-200.00) mg/dL 12/24/24 Range/Units 17:33 RBC (4.10-5.20) 10*6/uL Hgb (12.0-15.0) g/dL Hct (37.2-46.3) % RDW (11.5-14.5) % APTT (22.0-30.0) sec Carbon Dioxide (22-30) mmol/L BUN (7-17) mg/dL Glucose (74-99) mg/dL AST (14-36) U/L ALT (4-34) U/L Triglycerides 167.00 H (0.00-149.00) mg/dL Cholesterol 206.00 H (0.00-200.00) mg/dL Thrombosis Risk Factor Assmnt - Choose All That Apply Any of the Below Risk Factors Present?: Yes Each Factor Represents 1 point: Age 41-60 years Other Risk Factors: No Other congenital or acquired thrombophilia - If yes, enter type in comment: No Thrombosis Risk Factor Assessment Total Risk Factor Score: 1 Thrombosis Risk Factor Assessment Level: Low Risk
--- NOTE | 2024-12-25 11:49 | P.DS ---
Providers Date of admission: 12/24/24 20:22 Attending physician: Reji Lares Primary care physician: [facility] Course: 44-year-old female with known history of asthma came in with chest pain sharp in nature radiating to the back. Worse with palpation denied any shortness of breath lightheadedness associate with that patient does have history of asthma patient initially believed it may be her asthma although patient does not have any significant bronchospasm at this time patient used to drink alcohol in the past. Did not drink in many months AST and ALT are mildly elevated though. Patient chest pain is not consistent with gastroesophageal reflux disease her pain at this time resolved. D-dimer is negative. Chest pain is nonpleuritic in nature chest x-ray did not show any significant abnormality. EKG mild sinus tachycardia without any acute ST-T wave changes. Patient was eval by cardiology they cleared her for discharge follow-up with her analytical sciences director Dr. Ramírez as an outpatient. 3 sets of troponins are negative. REVIEW OF SYSTEMS: All other systems are negative except those mentioned in the HPI PHYSICAL EXAMINATION: GENERAL: The patient is alert and oriented x3, not in any acute distress. Well developed, well nourished. HEENT: Pupils are round and equally reacting to light. EOMI. No scleral icterus. No conjunctival pallor. Normocephalic, atraumatic. No pharyngeal erythema. No thyromegaly. CARDIOVASCULAR: S1 and S2 present. No murmurs, rubs, or gallops. PULMONARY: Chest is clear to auscultation, no wheezing or crackles. ABDOMEN: Soft, nontender, nondistended, normoactive bowel sounds. No palpable or ganomegaly. MUSCULOSKELETAL: No joint swelling or deformity. EXTREMITIES: No cyanosis, clubbing, or pedal edema. NEUROLOGICAL: Gross neurological examination did not reveal any focal deficits. SKIN: No rashes. Assessment and plan -Chest pain musculoskeletal in nature rule out acute coronary syndromes cleared by cardiology with recommendation of outpatient stress test - Bronchial asthma history no not in acute exacerbation -Fibromyalgia - Depression - Bipolar disorder - History of PTSD For above mentioned chronic medical problems patient was resumed on appropriate home medications patient will be discharged today Plan - Discharge Summary Discharge Rx Participant: No New Discharge Prescriptions: Continue DULoxetine HCL [Cymbalta] 60 mg PO DAILY Cyclobenzaprine [Flexeril] 5 mg PO TID Albuterol Sulfate [Albuterol Sulfate Hfa] 2 puff INHALATION RT-Q4H PRN PRN Reason: Shortness Of Breath busPIRone HCL 10 mg PO TID Topiramate [Topiramate ER (Sprinkle)] 150 mg PO DAILY ARIPiprazole [Abilify] 10 mg PO DAILY Pantoprazole [Protonix] 40 mg PO BID buPROPion XL [Wellbutrin XL] 300 mg PO DAILY Amitriptyline HCl [Elavil] 100 mg PO HS Ipratropium-Albuterol Nebulize [Duoneb 0.5 mg-3 mg/3 ml Soln] 3 ml INHALATION RT-QID PRN PRN Reason: Shortness Of Breath Rimegepant Sulfate [Nurtec Odt] 1 tab PO DAILY PRN PRN Reason: Migraine Headache Folic Acid 1 mg PO DAILY Metoprolol Succinate (ER) [Toprol XL] 100 mg PO DAILY Sucralfate [Carafate] 1 gm PO ACHS oxyCODONE-APAP 5-325MG [Percocet 5-325 mg] 1 tab PO BID PRN PRN Reason: Pain Butalb/Asprin/Caff 50-325-40Mg [Fiorinal 50-325-40 MG] 1 cap PO DAILY PRN PRN Reason: Migraine Headache Discharge Medication List DULoxetine HCL [Cymbalta] 60 mg PO DAILY 02/26/20 [History] Cyclobenzaprine [Flexeril] 5 mg PO TID 08/15/21 [History] ARIPiprazole [Abilify] 10 mg PO DAILY 10/28/23 [History] Albuterol Sulfate [Albuterol Sulfate Hfa] 2 puff INHALATION RT-Q4H PRN 10/28/23 [History] Folic Acid 1 mg PO DAILY 10/28/23 [History] Rimegepant Sulfate [Nurtec Odt] 1 tab PO DAILY PRN 10/28/23 [History] Topiramate [Topiramate ER (Sprinkle)] 150 mg PO DAILY 10/28/23 [History] busPIRone HCL 10 mg PO TID 10/28/23 [History] Metoprolol Succinate (ER) [Toprol XL] 100 mg PO DAILY 05/21/24 [History] Pantoprazole [Protonix] 40 mg PO BID 07/31/24 [History] Sucralfate [Carafate] 1 gm PO ACHS 07/31/24 [History] oxyCODONE-APAP 5-325MG [Percocet 5-325 mg] 1 tab PO BID PRN 07/31/24 [History] Amitriptyline HCl [Elavil] 100 mg PO HS 11/24/24 [History] Butalb/Asprin/Caff 50-325-40Mg [Fiorinal 50-325-40 MG] 1 cap PO DAILY PRN 11/24/24 [History] Ipratropium-Albuterol Nebulize [Duoneb 0.5 mg-3 mg/3 ml Soln] 3 ml INHALATION RT-QID PRN 11/24/24 [History] buPROPion XL [Wellbutrin XL] 300 mg PO DAILY 11/24/24 [History] Follow up Appointment(s)/Referral(s): Patricia Gonzalez MD [Primary Care Provider] - 3 Days Jesús Farrell MD [STAFF PHYSICIAN] - 1 Week
[2024-12-25] MEDS ORDERED: AMITRIPTYLINE HCL 50 MG TAB PO SCH (21:00)
== END 2024-12-25 14:12 | disposition home or self-care (01) ==
LOC: EC 16:03 → 6NMEDSUR 20:22
PROVIDERS: ADMIT Hospitalist; ATTEND Hospitalist
DX: R07.89 Other chest pain (principal); J44.9 Chronic obstructive pulmonary disease, unspecified; R00.0 Tachycardia, unspecified; M54.9 Dorsalgia, unspecified; M79.7 Fibromyalgia; R74.01 Elevation of levels of liver transaminase levels; K21.9 Gastro-esophageal reflux disease without esophagitis; F31.9 Bipolar disorder, unspecified; F43.10 Post-traumatic stress disorder, unspecified; F41.9 Anxiety disorder, unspecified; Z79.899 Other long term (current) drug therapy; Z88.1 Allergy status to other antibiotic agents; Z91.040 Latex allergy status; Z88.5 Allergy status to narcotic agent; Z88.0 Allergy status to penicillin; Z88.8 Allergy status to other drugs, medicaments and biological substances; Z91.048 Other nonmedicinal substance allergy status; Z87.09 Personal history of other diseases of the respiratory system; Z87.891 Personal history of nicotine dependence
CPT/HCPCS: 96375 ×2; 96376; 96374; 99285; 36415; 93005; 85379; 80061; 80053; 83735; 84484; 85025; 85610; 85730; 81003; 81025; 71046; G0378 ×2; J2405 ×2; J1885; J1171

== ENCOUNTER 2024-12-25 19:25 | Outpatient (CLI) | payer OTHER ==
--- NOTE | 2025-01-05 17:07 | P.PCN ---
Description of Procedure: POLYSOMNOGRAPHY REPORT PROCEDURE(S)/DATE(S): Polysomnography 12/25/2024 CLINICAL: Patient has been seen in the sleep center for evaluation of obstructive sleep apnea-hypopnea syndrome. Please see my consultation. Sleep study has been done for evaluation of patient breathing during the sleep. PROCEDURE: The standard montage for clinical polysomnography included the electroencephalogram, the electrooculogram, the mentalis surface electromyography and Lead II cardiography. The respiratory battery consisted of measurements of nasal/buccal air flow, pressure transducer measurements from nose, thoracic and/or abdominal effort and intercostal surface electromyography. Video monitoring has been done to check for any parasomnia events. Nocturnal oxyhemoglobin saturations were obtained by finger oximetry. Step-lee titration with positive airway pressure was utilized to control the respiratory events, if necessary. RESULTS: During the diagnostic sleep study sleep efficiency was normal 92.5%. Latency to sleep onset was normal at 20.0 min. Sleep architecture showed stage NI was short 1.7%, Delta sleep was short 3.8%, REM sleep was slightly decreased to 17.0%. Respiratory channel showed 3 obstructive apneas, 0 mixed apneas, 0 central apneas, 25 hypopneas with lowest oxygen level 67%. Total apnea hypopnea index was 4.3. Heart rate was in the range between 67 and 77, average 72. EMG showed 0 periodic limb movements per hour. IMPRESSIONS: 1. Very minimal abnormalities of respirations, apnea hypopnea index in normal range by todays criterias. 2. No significant periodic limb movements have been documented. 3. Loud snoring have been documented during the sleep study. 4. Patient presents with symptoms of significant excessive daytime sleepiness with [place] Sleepiness Scale 16. Differential diagnosis should include narcolepsy and idiopathic hypersomnia. Please see other impressions from consultation PLAN: 1. Multiple sleep latency test for objective evaluation symptoms of excessive daytime sleepiness. 2. Sleep hygiene with regular time in bed for at least 7-1/2 hours. 3. No driving if feeling sleepiness. Thank you very much for allowing me to participate in the management of your patient. Sincerely, Mike Ma MD, PhD, FAASM. Diplomat of [place], Sleep Medicine Board by [place] [facility] [place] cc: Patricia Gonzalez MD
== END 2024-12-26 06:00 | disposition home or self-care (01) ==
LOC: 3 N SLEEP 19:25
PROVIDERS: ATTEND Internal Medicine
DX: G47.33 Obstructive sleep apnea (adult) (pediatric) (principal); Z87.891 Personal history of nicotine dependence; Z91.048 Other nonmedicinal substance allergy status; Z91.040 Latex allergy status; Z88.5 Allergy status to narcotic agent; Z88.6 Allergy status to analgesic agent; Z88.1 Allergy status to other antibiotic agents; Z88.0 Allergy status to penicillin; Z88.8 Allergy status to other drugs, medicaments and biological substances
CPT/HCPCS: 95810

== ENCOUNTER → 2025-01-30 | Outpatient (CLI) | payer OTHER ==
[2025-01-30 15:12] LABS: Basophils # (A) 0.06 X 10*3/uL (0.00-0.10); Basophils % (A) 1.2 %; Eosinophils % (A) 5.8 %; HGB 11.9 g/dL (12.0-15.0); Lymphocytes # (A) 1.45 X 10*3/uL (0.90-5.00); Lymphocytes % (A) 28.2 %; MCH 32.9 pg (27.0-32.0); MCHC 32.2 g/dL (32.0-37.0); MCV 102.2 FL (80.0-97.0); Mean Platelet Volume 9.7 FL (9.5-12.2); Monocytes # (A) 0.58 X 10*3/uL (0.20-1.00); Monocytes % (A) 11.3 %; NRBC Per 100 WBC 0 X 10*3/uL (0.00-0.01); Neutrophils # (A) 2.72 X 10*3/uL (1.80-7.70); Neutrophils % (A) 52.7 %; Platelet Count 277 X 10*3/uL (140-440); RBC 3.62 X 10*6/uL (4.10-5.20); RDW 19.5 % (11.5-14.5); WBC 5.15 X 10*3/uL (4.50-10.00)
[2025-01-30 15:35] LABS: % Iron Saturation 33.64 (12.00-45.00); ALT 22 U/L (8-44); AST 15 U/L (13-35); Albumin 4.3 g/dL (3.8-4.9); Albumin/Globulin Ratio 1.95 Ratio (1.60-3.17); Alkaline Phosphatase 121 U/L (41-126); Blood Urea Nitrogen 21.2 mg/dL (9.0-27.0); Carbon Dioxide 20.5 mmol/L (21.6-31.8); Chloride 109 mmol/L (96-109); Globulin 2.2 g/dL (1.6-3.3); Glucose 87 mg/dL (70-110); Iron 73 UG/DL (50-170); Potassium 4.3 mmol/L (3.5-5.5); Sodium 140 mmol/L (135-145); T4, Free (Free Thyroxine) 0.75 ng/dL (0.80-1.80); Total Bilirubin 0.2 mg/dL (0.3-1.2); Total Iron Binding Capacity 217 UG/DL (228-460); Total Protein 6.5 g/dL (6.2-8.2)
[2025-01-30 15:36] LABS: Follicle Stimulating Hormone 5.8 mIU/mL; Luteinizing Hormone 12.3 mIU/mL
== END | disposition home or self-care (01) ==
LOC: LABWHC1 10:08
PROVIDERS: ATTEND Family Medicine
DX: E03.9 Hypothyroidism, unspecified (principal); N95.1 Menopausal and female climacteric states; R42 Dizziness and giddiness
CPT/HCPCS: 36415; 80053; 82533; 82728; 83001; 83002; 83540; 83550; 84439; 84443; 85025

== ENCOUNTER 2025-02-18 16:51 | Emergency (ER) | payer OTHER ==
[2025-02-18 16:56] VITALS: RESP 16; TEMP 98.4
--- NOTE | 2025-02-18 17:12 | ED ---
Lower Extremity Injury HPI - General Chief Complaint: Extremity Injury, Lower Stated Complaint: Right Foot Injury Time Seen by Provider: 02/18/25 16:59 Source: patient, RN notes reviewed Mode of arrival: wheelchair Limitations: no limitations - History of Present Illness Initial Comments: 44-year-old female presented emergency room complaints of right lateral foot and ankle pain. Patient that she was walking down steps that are uneven and rolled her ankle and heard a "pop "noise. Patient states that she has been having mild pain with bearing weight. She denies other injuries at the time of the event. No other acute complaints at this time. - Related Data Home Medications Medication Instructions Recorded Confirmed DULoxetine HCL [Cymbalta] 60 mg PO DAILY 02/26/20 12/24/24 Cyclobenzaprine [Flexeril] 5 mg PO TID 08/15/21 12/24/24 ARIPiprazole [Abilify] 10 mg PO DAILY 10/28/23 12/24/24 Albuterol Sulfate [Albuterol 2 puff INHALATION RT-Q4H PRN 10/28/23 12/24/24 Sulfate Hfa] Folic Acid 1 mg PO DAILY 10/28/23 12/24/24 Rimegepant Sulfate [Nurtec Odt] 1 tab PO DAILY PRN 10/28/23 12/24/24 Topiramate [Topiramate ER 150 mg PO DAILY 10/28/23 12/24/24 (Sprinkle)] busPIRone HCL 10 mg PO TID 10/28/23 12/24/24 Metoprolol Succinate (ER) [Toprol 100 mg PO DAILY 05/21/24 12/24/24 XL] Pantoprazole [Protonix] 40 mg PO BID 07/31/24 12/24/24 Sucralfate [Carafate] 1 gm PO ACHS 07/31/24 12/24/24 oxyCODONE-APAP 5-325MG [Percocet 1 tab PO BID PRN 07/31/24 12/24/24 5-325 mg] Amitriptyline HCl [Elavil] 100 mg PO HS 11/24/24 12/24/24 Butalb/Asprin/Caff 50-325-40Mg 1 cap PO DAILY PRN 11/24/24 12/24/24 [Fiorinal 50-325-40 MG] Ipratropium-Albuterol Nebulize 3 ml INHALATION RT-QID PRN 11/24/24 12/24/24 [Duoneb 0.5 mg-3 mg/3 ml Soln] buPROPion XL [Wellbutrin XL] 300 mg PO DAILY 11/24/24 12/24/24 Allergies Allergy/AdvReac Type Severity Reaction Status Date / Time adhesive Allergy Rash/Hives Verified 02/18/25 16:56 latex Allergy Rash/Hives Verified 02/18/25 16:56 morphine Allergy Nausea & Verified 02/18/25 16:56 Vomiting prochlorperazine Allergy Nausea & Verified 02/18/25 16:56 [From Compazine] Vomiting ciprofloxacin [From Cipro] AdvReac Hallucinati Verified 02/18/25 16:56 ons citalopram [From Celexa] AdvReac Suicidal Verified 02/18/25 16:56 thoughts diazepam [From Valium] AdvReac Hallucinati Verified 02/18/25 16:56 ons/Anxiety fluoxetine [From Prozac] AdvReac Suicidal Verified 02/18/25 16:56 thoughts ibuprofen AdvReac Unknown Verified 02/18/25 17:21 metoclopramide [From Reglan] AdvReac Hallucinati Verified 02/18/25 16:56 ons/Anxiety paroxetine [From Paxil] AdvReac Suicidal Verified 02/18/25 16:56 thoughts Penicillins AdvReac Nausea & Verified 02/18/25 16:56 Vomiting Review of Systems ROS Statement: Those systems with pertinent positive or pertinent negative responses have been documented in the HPI. ROS Other: All systems not noted in ROS Statement are negative. Past Medical History Past Medical History: Asthma, COPD, Fibromyalgia, GERD/Reflux, GI Bleed Additional Past Medical History / Comment(s): covid + pneumonia 10/30/2020 complicated by respiratory failure, intubation, mechanical ventilation, bilateral pneumothoraces, Other hx: Primary immunodeficiency, antral ulcers, GI bleed, anemia, IBS, migraines, back pain, TMJ, seasonal allergies, takes metoprolol for heart rate, tends to run low BP, current ulcer has peptic ulcer disease, back pain, taking A/B for resolving UTI History of Any Multi-Drug Resistant Organisms: None Reported Past Surgical History: Uterine Ablation Additional Past Surgical History / Comment(s): EGDs, colonoscopies, bilateral breast augmentation, septoplasty, L ear trauma/reattached. Past Anesthesia/Blood Transfusion Reactions: No Reported Reaction, Motion Sickness Additional Past Anesthesia/Blood Transfusion Reaction / Comment(s): Pt has received blood in past without reaction. Past Psychological History: ADD/ADHD, Anxiety, Bipolar, Depression, PTSD Smoking Status: Former smoker - Past Family History Father Family Medical History: Coronary Artery Disease (CAD), Hyperlipidemia, Hypertension Additional Family Medical History / Comment(s): Father at age 51 from accidental drug overdose. lung problems, emphysema, snoring, during sleep, mental illness Mother Family Medical History: Fibromyalgia Additional Family Medical History / Comment(s): Mother is alive at age 61 with history of primary immunodeficiency. headaches Brother(s) Additional Family Medical History / Comment(s): Patient has one brother with history of alcohol abuse. Patient does not have any sisters. Patient has 2 children with no major medical problems. General Exam Limitations: no limitations Neck exam: Present: normal inspection. Absent: tenderness, meningismus, lymphadenopathy Respiratory exam: Present: normal lung sounds bilaterally. Absent: respiratory distress, wheezes, rales, rhonchi, stridor Cardiovascular Exam: Present: regular rate, normal rhythm, normal heart sounds. Absent: systolic murmur, diastolic murmur, rubs, gallop, clicks GI/Abdominal exam: Present: soft, normal bowel sounds. Absent: distended, tenderness, guarding, rebound, rigid Right Ankle exam: Present: full ROM, tenderness, swelling. Absent: deformity Foot/Toe exam: Present: tenderness. Absent: ecchymosis, deformity Back exam: Present: normal inspection Course Vital Signs 02/18/25 02/18/25 16:54 17:52 Temperature 98.4 F 98.4 F Pulse Rate 81 69 Respiratory 16 16 Rate Blood Pressure 96/64 95/59 O2 Sat by Pulse 98 100 Oximetry Medical Decision Making - Medical Decision Making Was pt. sent in by a medical professional or institution (, PA, BLOWER INSULATOR, urgent care, hospital, or [facility]...) When possible be specific @ -No Did you speak to anyone other than the patient for history (EMS, parent, family, police, friend...)? What history was obtained from this source @ -No Did you review nursing and triage notes (agree or disagree)? Why? @ -I reviewed and agree with nursing and triage notes Were old charts reviewed (outside hosp., previous admission, EMS record, old EKG, old radiological studies, urgent care reports/EKG's, [facility] records)? Report findings @ -No old charts were reviewed Differential Diagnosis (chest pain, altered mental status, abdominal pain women, abdominal pain men, vaginal bleeding, weakness, fever, dyspnea, syncope, headache, dizziness, GI bleed, back pain, seizure, CVA, palpatations, mental health, musculoskeletal)? @ -Differential Musculoskeletal Muscular strain, contusion, ligament sprain, fracture, arthritis, septic arthritis, bursitis, cellulitis, muscle spasm, nerve compression, DVT, arterial occlusion, herpes zoster, electrolyte abnormality, tumor.... This is not meant to be in all inclusive list EKG interpreted by me (3pts min.). @ -None X-rays interpreted by me (1pt min.). @ -X-ray imaging of the foot and ankle no acute osseous abnormality. CT interpreted by me (1pt min.). @ -None done U/S interpreted by me (1pt. min.). @ -None done What testing was considered but not performed or refused? (CT, X-rays, U/S, labs)? Why? @ -None What meds were considered but not given or refused? Why? @ -None Did you discuss the management of the patient with other professionals (professionals i.e. , PA, BLOWER INSULATOR, lab, RT, psych nurse, health social work professor, cab supervisor, teacher, airconditioning drafting officer, porter sample case)? Give summary @ -No Was smoking cessation discussed for >3mins.? @ -No Was critical care preformed (if so, how long)? @ -No Were there social determinants of health that impacted care today? How? (Homelessness, low income, unemployed, alcoholism, drug addiction, transportation, low edu. Level, literacy, decrease access to med. care, group home, rehab)? @ -No Was there de-escalation of care discussed even if they declined (Discuss DNR or withdrawal of care, Hospice)? DNR status @ -No What co-morbidities impacted this encounter? (DM, HTN, Smoking, COPD, CAD, Cancer, CVA, ARF, Chemo, Hep., AIDS, mental health diagnosis, sleep apnea, morbid obesity)? @ -None Was patient admitted / discharged? Hospital course, mention meds given and route, prescriptions, significant lab abnormalities, going to OR and other pertinent info. @ -Discharge. 44 old female presenting with right lateral foot and ankle pain. There is mild tenderness to the lateral ankle. Pedal pulses intact. Full range of motion of the ankle is assessed. Patient better Toradol for pain relief. X- ray ridging of the foot and ankle is unremarkable. Patient is placed in Wisam wrap and recommended continue RICE therapy at home. Case discussed with Dr. Bingham. Undiagnosed new problem with uncertain prognosis? @ -No Drug Therapy requiring intensive monitoring for toxicity (Heparin, Nitro, Insulin, Cardizem)? @ -No Were any procedures done? @ -No Diagnosis/symptom? @ -Ankle sprain Acute, or Chronic, or Acute on Chronic? @ -Acute Uncomplicated (without systemic symptoms) or Complicated (systemic symptoms)? @ -Uncomplicated Side effects of treatment? @ -No Exacerbation, Progression, or Severe Exacerbation? @ -No Poses a threat to life or bodily function? How? (Chest pain, [place], [place], pneumonia, PE, COPD, DKA, ARF, appy, cholecystitis, CVA, Diverticulitis, Homicidal, Garcia icidal, threat to staff... and all critical care pts) @ -No Disposition Clinical Impression: Ankle sprain Disposition: HOME SELF-CARE Condition: Good Instructions (If sedation given, give patient instructions): Ankle Sprain (ED) Additional Instructions: Please return to the Emergency Department if symptoms worsen or any other concerns. Is patient prescribed a controlled substance at d/c from ED?: No Referrals: Patricia Gonzalez MD [Primary Care Provider] - 1-2 days Time of Disposition: 17:45
[2025-02-18] MEDS: IBUPROFEN 800 MG TAB PO STA (17:19)
--- NOTE | 2025-02-18 17:27 | XR ---
EXAMINATION TYPE: XR foot complete RT, XR ankle complete RT DATE OF EXAM: 02/18/2025 COMPARISON: NONE HISTORY: Fall, pain TECHNIQUE: Frontal, lateral and oblique images of the right ankle are obtained. Frontal, lateral and oblique images of the right foot are obtained. FINDINGS: There is no acute fracture/dislocation evident. The joint spaces appear within normal limi ts. The overlying soft tissue appears unremarkable. IMPRESSION: No acute fracture or dislocation. [facility], , 02/18/2025 5:24 PM
[2025-02-18] MEDS: KETOROLAC 15 MG/ML 1 ML VIAL IM STA (17:33)
[2025-02-18 17:53] VITALS: BP 95/59; PULSE 69
== END 2025-02-18 17:54 | disposition home or self-care (01) ==
LOC: EC 16:51
DX: S93.401A Sprain of unspecified ligament of right ankle, initial encounter (principal); Z87.891 Personal history of nicotine dependence; Z88.0 Allergy status to penicillin; Z88.1 Allergy status to other antibiotic agents; Z88.6 Allergy status to analgesic agent; Z88.8 Allergy status to other drugs, medicaments and biological substances; Z91.040 Latex allergy status; X50.1XXA Overexertion from prolonged static or awkward postures, initial encounter; Y93.01 Activity, walking, marching and hiking
CPT/HCPCS: 73610; 73630; 99283; 96372; J1885